=== PATIENT | female | born 1985 | race Caucasian/White ===

== ENCOUNTER 2017-12-18 14:44 | Emergency (ER) | payer OTHER ==
[2017-12-18] MEDS ORDERED: ONDANSETRON 4 MG/2 ML VIAL ONE (15:31)
[2017-12-18] MEDS ORDERED: METHYLPREDNISOLONE 125 MG INJ ONE (15:31)
[2017-12-18] MEDS ORDERED: MORPHINE 10 MG/ML VIAL ONE ×3 (15:31→18:14)
[2017-12-18] MEDS ORDERED: FAMOTIDINE 20 MG/2 ML VIAL IV ONE (15:32)
[2017-12-18] MEDS ORDERED: NA CHLORIDE 0.9% 1,000 ML ONE (15:32)
[2017-12-18 16:19] LABS: Glucose Level 99 mg/dL (65-120); Lipase 19 U/L (22-51)
[2017-12-18 16:20] LABS: Glomerular Filtration Rate > 60 mL/min (>60)
[2017-12-18 16:25] LABS: Albumin 4.5 g/dL (3.2-5.5); Alkaline Phosphatase 53 IU/L (42-121); BUN Blood Urea Nitrogen 7 mg/dL (6-20); Bilirubin Direct 0.3 mg/dL (0-0.2); Glomerular Filtration Rate > 90 mL/min (=/>90); Protein, Total 8.1 g/dL (6.0-8.3)
[2017-12-18 16:30] LABS: ALT/SGPT 24 IU/L (10-60); AST/SGOT 31 IU/L (10-42); Amylase Level 55 U/L (28-100); Bicarbonate 20 mEq/L (21-31); Sodium Level 135 mEq/L (135-145)
[2017-12-18 17:01] LABS: Absolute Lymphocytes (CBC) 2.2 K/uL (0.7-4.9); Absolute Monocytes 0.5 K/uL (0.1-1.3); Absolute Neutrophil 8.3 K/uL (1.8-8.0); Basophils % 0.6 % (0-1.3); Eosinophils % 0.9 % (0-4.4); Hematocrit 36.8 % (36.0-45.0); Lymphocytes % 19.9 % (15.3-44.8); MCH 28.1 pg (27.0-35.0); MCV 83.1 fL (80-100); MPV 7.3 fL (7.6-11.3); Monocytes % 4.7 % (3.3-12.3); RBC Red Blood Cell Count 4.43 M/uL (3.86-4.86)
[2017-12-18] MEDS ORDERED: PROMETHAZINE 25 MG/ML VIAL ONE (17:08)
--- NOTE | 2017-12-18 17:25 | RAD REPORT ---
EXAM DESCRIPTION: CT - Abdomen Pelvis W Contrast - 12/18/2017 4:59 pm CLINICAL HISTORY: Abdominal pain, nausea and vomiting, history of Crohn's disease COMPARISON: None. TECHNIQUE: Biphasic, helical CT imaging of the abdomen and pelvis was performed following 100 ml non -ionic IV contrast. Oral contrast was given. All CT scans are performed using dose optimization technique as appropriate and may include automated exposure control or mA/KV adjustment according to patient size. FINDINGS: No suspicious findings in the lung bases. Liver shows a mild diffuse fatty infiltration pattern. No focal liver lesion. Pancreas and spleen hilario w no suspicious findings. Cholecystectomy clips are present. No biliary tree dilatation. Symmetric renal function is seen with no hydronephrosis or suspicious renal mass. No pyelonephritis o r acute renal parenchymal process. Urinary bladder shows no significant finding. Uterus and ovaries a re also without significant finding. Phleboliths are seen along the pelvic floor. No dilated bowel loops or bowel wall thickening. An acute GI process is not seen. There are hyperdens ities along the terminal ileum that may be clips from prior surgery or calcifications in the divertic ulum. No active process at this site. No free air, free fluid or inflammatory stranding. No hernia, mass or bulky lymphadenopathy. No adrenal abnormality. No suspicious bony findings. IMPRESSION: Contrast enhanced CT abdomen and pelvis showing no significant or suspicious finding. No suspicious change from the 2015 study.
--- NOTE | 2017-12-18 18:16 | EDPHYS ---
Physician Documentation [facility] Name: Sowmya Juarez Age: 32 yrs Sex: Female : 1985 Arrival Date: 12/18/2017 Time: 14:46 Bed 15 Private MD: ED Physician Axel Freeman HPI: 12/18 17:06 This 32 yrs old Female presents to ER via Ambulatory with complaints of kdr Abdominal Pain. 17:06 The patient presents with abdominal pain in the epigastric area, in the upper abdomen. kdr Onset: The symptoms/episode began/occurred gradually, 3 day(s) ago. The symptoms do not radiate. Associated signs and symptoms: Pertinent positives: nausea and vomiting, began today. The symptoms are described as achy, burning, crampy, sharp, waxing/waning. Modifying factors: The symptoms are alleviated by nothing, the symptoms are aggravated by food, movement, pressure, vomiting. Severity of pain: At its worst the pain was mild moderate just prior to arrival, in the emergency department the pain is unchanged is actually worse. The patient has experienced similar episodes in the past, multiple times, has not had any s/s for about a year since starting on new medication. The patient has not recently seen a physician. 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 - Social history:: Smoking status: Patient/guardian denies using tobacco. ROS: 17:06 Constitutional: Negative for fever, chills, and weight loss, Eyes: Negative for injury, kdr pain, redness, and discharge, ENT: Negative for injury, pain, and discharge, Neck: Negative for injury, pain, and swelling, Cardiovascular: Negative for chest pain, palpitations, and edema, Respiratory: Negative for shortness of breath, cough, wheezing, and pleuritic chest pain, Back: Negative for injury and pain, : Negative for injury, bleeding, discharge, and swelling, MS/Extremity: Negative for injury and deformity, Skin: Negative for injury, rash, and discoloration, Neuro: Negative for headache, weakness, numbness, tingling, and seizure activity. Psych: Negative for depression, anxiety, suicide ideation, homicidal ideation, and hallucinations, Allergy/Immunology: Negative for hives, rash, and allergies, Endocrine: Negative for neck swelling, polydipsia, polyuria, polyphagia, and marked weight changes, Hematologic/Lymphatic: Negative for swollen nodes, abnormal bleeding, and unusual bruising. 17:06 Abdomen/GI: Positive for abdominal pain, nausea and vomiting, abdominal cramps, Negative for diarrhea, abdominal distension, black/tarry stool, rectal pain, rectal bleeding, bowel incontinence. Exam: 17:06 Constitutional: This is a well developed, well nourished patient who is awake, alert, kdr and in no acute distress. Head/Face: Normocephalic, atraumatic. Eyes: Pupils equal round and reactive to light, extra-ocular motions intact. Lids and lashes normal. Conjunctiva and sclera are non-icteric and not injected. Cornea within normal limits. Periorbital areas with no swelling, redness, or edema. Neck: Trachea midline, no thyromegaly or masses palpated, and no cervical lymphadenopathy. Supple, full range of motion without nuchal rigidity, or vertebral point tenderness. No Meningismus. Chest/axilla: Normal chest wall appearance and motion. Nontender with no deformity. No lesions are appreciated. Cardiovascular: Regular rate and rhythm with a normal S1 and S2. No gallops, murmurs, or rubs. Normal PMI, no JVD. No pulse deficits. Respiratory: Lungs have equal breath sounds bilaterally, clear to auscultation and percussion. No rales, rhonchi or wheezes noted. No increased work of breathing, no retractions or nasal flaring. Back: No spinal tenderness. No costovertebral tenderness. Full range of motion. Skin: Warm, dry with normal turgor. Normal color with no rashes, no lesions, and no evidence of cellulitis. MS/ Extremity: Pulses equal, no cyanosis. Neurovascular intact. Full, normal range of motion. Neuro: Awake and alert, GCS 15, oriented to person, place, time, and situation. Cranial nerves II-XII grossly intact. Motor strength 5/5 in all extremities. Sensory grossly intact. Cerebellar exam normal. Normal gait. 17:06 Abdomen/GI: Inspection: abdomen appears normal, Bowel sounds: diminished, in all quadrants, Palpation: soft, mild abdominal tenderness, in the epigastric area, right upper quadrant and left upper quadrant. Vital Signs: 14:57 BP 181 / 105; Pulse 130; Resp 19; Temp 98.6; Pulse Ox 100% on R/A; Weight 86.18 kg; la1 Height 5 ft. 2 in. (157.48 cm); 16:26 Pulse 82; Resp 18; Pulse Ox 95% on R/A; sg 16:29 BP 144 / 88; sg 18:20 BP 132 / 80; Pulse 87; Resp 17; Pulse Ox 100% on R/A; Pain 4/10; sg 14:57 Body Mass Index 34.75 (86.18 kg, 157.48 cm) la1 MDM: 17:06 Data reviewed: vital signs, nurses notes, lab test result(s), radiologic studies. kdr Counseling: I had a detailed discussion with the patient and/or guardian regarding: the historical points, exam findings, and any diagnostic results supporting the discharge/admit diagnosis, lab results, radiology results. 18:15 Patient medically screened. kdr 12/18 15:18 Order name: Amylase, Serum; Complete Time: 16:59 kdr 12/18 15:18 Order name: Basic Metabolic Panel; Complete Time: 16:59 kdr 12/18 15:18 Order name: CBC with Diff; Complete Time: 17:16 kdr 12/18 15:18 Order name: Creatinine for Radiology; Complete Time: 16:59 kdr 12/18 15:18 Order name: Hepatic Function; Complete Time: 16:59 kdr 12/18 15:18 Order name: Lipase; Complete Time: 16:59 kdr 12/18 15:18 Order name: CT Abd/Pelvis - W/Contrast; Complete Time: 17:31 kdr 12/18 15:18 Order name: IV Saline Lock; Complete Time: 15:22 kdr 12/18 15:18 Order name: Labs collected and sent; Complete Time: 15:22 kdr Administered Medications: 15:55 Drug: morphine 4 mg Route: IVP; Site: left antecubital; sg 17:00 Follow up: Response: No adverse reaction; Pain is unchanged, physician notified sg 15:55 Drug: Zofran 4 mg Route: IVP; Site: left antecubital; sg 17:00 Follow up: Response: No adverse reaction; Nausea is decreased sg 15:56 Drug: NS 0.9% 1000 ml Route: IV; Rate: 1 bolus; Site: left antecubital; sg 15:56 Drug: SOLU-Medrol 125 mg Route: IVP; Site: left antecubital; sg 17:00 Follow up: Response: No adverse reaction sg 15:56 Drug: Pepcid 20 mg Route: IVP; Site: left antecubital; sg 17:00 Follow up: Response: No adverse reaction sg 17:19 Drug: morphine 4 mg Route: IVP; Site: left antecubital; sg 18:00 Follow up: Response: No adverse reaction; Pain is decreased sg 17:19 Drug: Phenergan 25 mg Route: IVP; Site: left antecubital; sg 18:00 Follow up: Response: No adverse reaction; Nausea is decreased sg 18:15 Drug: morphine 4 mg Route: IVP; Site: left antecubital; sg 18:40 Follow up: Response: No adverse reaction; Pain is decreased sg Disposition: 12/18/17 18:15 Discharged to Home. Impression: Abdominal and pelvic pain, Other ulcerative colitis. - Condition is Stable. - Discharge Instructions: Ulcerative Colitis, Abdominal Pain, Adult, [id number]. - Prescriptions for Tylenol- Codeine #3 300-30 mg Oral Tablet - take 2 tablets by ORAL route every 6 hours As needed; 20 tablet. Prednisone 20 mg Oral Tablet - take 1 tablet by ORAL route every 12 hours for 5 days; 10 tablet. promethazine 25 mg Oral Tablet - take 1 tablet by ORAL route every 4-6 hours As needed; 20 tablet. - Medication Reconciliation Form, Thank You Letter, Antibiotic Education, Prescription Opioid Use form. - Follow up: Private Physician; When: 2 - 3 days; Reason: If symptoms return, Further diagnostic work-up, Recheck today's complaints, Continuance of care, Re-evaluation by your physician. - Problem is an acute exacerbation. - Symptoms have improved. Signatures: Dispatcher [employer] EDMS Ankit Pittman RN RN sg Axel Freeman MD MD [facility] Jeronimo Sarmiento RN RN la1
--- NOTE | 2017-12-18 18:16 | ER ---
Nurse's Notes [facility] Name: Sowmya Juarez Age: 32 yrs Sex: Female : 1985 Arrival Date: 12/18/2017 Time: 14:46 Bed 15 Private MD: Diagnosis: Abdominal and pelvic pain;Other ulcerative colitis Presentation: 12/18 14:56 Presenting complaint: Patient states: I think I am having a crohns exacerbation. la1 Extreme abd pain and N/V for a few days. Transition of care: patient was not received from another setting of care. Onset of symptoms was December 18, 2017. Care prior to arrival: None. 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 - Social history:: Smoking status: Patient/guardian denies using tobacco. Screenin:40 Abuse screen: Denies threats or abuse. Denies injuries from another. Nutritional sg screening: No deficits noted. Tuberculosis screening: No symptoms or risk factors identified. Never had TB. Fall Risk None identified. Assessment: 15:20 General: Appears in no apparent distress. uncomfortable, ill, well groomed, well sg developed, well nourished, Behavior is calm, cooperative, appropriate for age. Pain: Complains of pain in suprapubic area, right lower quadrant and left lower quadrant Quality of pain is described as aching, "raw" feeling. Neuro: Level of Consciousness is awake, alert, obeys commands, Oriented to person, place, time, situation, Coremaker are equal bilaterally Moves all extremities. Gait is steady, Speech is normal. Cardiovascular: Capillary refill is brisk in bilateral fingers Patient's skin is warm and dry. Chest pain is denied. Respiratory: Airway is patent Respiratory effort is even, unlabored, Respiratory pattern is regular, symmetrical. GI: Abdomen is round non-distended, Bowel sounds present X 4 quads. Abd is soft X 4 quads Abdomen is tender to palpation in suprapubic area, right lower quadrant and left lower quadrant. GI: Reports lower abdominal pain, nausea, vomiting. : No signs and/or symptoms were reported regarding the genitourinary system. EENT: No signs and/or symptoms were reported regarding the EENT system. Derm: Skin is pink, warm \\T\\ dry. Musculoskeletal: No signs and/or symptoms reported regarding the musculoskeletal system. 18:00 Reassessment: Patient appears in no apparent distress at this time. Patient and/or sg family updated on plan of care and expected duration. Pain level reassessed. Patient is alert, oriented x 3, equal unlabored respirations, skin warm/dry/pink. at bedside evaluating pt at this time, updating on POC and plan for discharge to home. Vital Signs: 14:57 BP 181 / 105; Pulse 130; Resp 19; Temp 98.6; Pulse Ox 100% on R/A; Weight 86.18 kg; la1 Height 5 ft. 2 in. (157.48 cm); 16:26 Pulse 82; Resp 18; Pulse Ox 95% on R/A; sg 16:29 BP 144 / 88; sg 18:20 BP 132 / 80; Pulse 87; Resp 17; Pulse Ox 100% on R/A; Pain 4/10; sg 14:57 Body Mass Index 34.75 (86.18 kg, 157.48 cm) la1 ED Course: 14:46 Patient arrived in ED. tw3 14:48 Axel Freeman MD is Attending Physician. kdr 14:56 Triage completed. la1 14:57 Arm band placed on left wrist. la1 15:15 Patient has correct armband on for positive identification. Bed in low position. Call sg light in reach. Side rails up X2. Pulse ox on. NIBP on. Head of bed elevated. 15:20 No provider procedures requiring assistance completed. sg 15:21 Ankit Pittman, BHAVIK is Primary Nurse. sg 15:40 Initial lab(s) drawn, by me, sent to lab. Missed attempt(s): 20 gauge in right sg antecubital area. Bleeding controlled, band aid applied, catheter tip intact. 15:47 Radiology exam delayed due to test not completed at this time. IV insertion jg1 attempt and/or patient not having appropriate IV at this time. 16:05 Inserted saline lock: 22 gauge in left antecubital area, using aseptic technique. em 16:59 CT Abd/Pelvis - W/Contrast In Process Unspecified. EDMS 18:40 IV discontinued, intact, bleeding controlled, No redness/swelling at site. Pressure sg dressing applied. Administered Medications: 15:55 Drug: morphine 4 mg Route: IVP; Site: left antecubital; sg 17:00 Follow up: Response: No adverse reaction; Pain is unchanged, physician notified sg 15:55 Drug: Zofran 4 mg Route: IVP; Site: left antecubital; sg 17:00 Follow up: Response: No adverse reaction; Nausea is decreased sg 15:56 Drug: NS 0.9% 1000 ml Route: IV; Rate: 1 bolus; Site: left antecubital; sg 15:56 Drug: SOLU-Medrol 125 mg Route: IVP; Site: left antecubital; sg 17:00 Follow up: Response: No adverse reaction sg 15:56 Drug: Pepcid 20 mg Route: IVP; Site: left antecubital; sg 17:00 Follow up: Response: No adverse reaction sg 17:19 Drug: morphine 4 mg Route: IVP; Site: left antecubital; sg 18:00 Follow up: Response: No adverse reaction; Pain is decreased sg 17:19 Drug: Phenergan 25 mg Route: IVP; Site: left antecubital; sg 18:00 Follow up: Response: No adverse reaction; Nausea is decreased sg 18:15 Drug: morphine 4 mg Route: IVP; Site: left antecubital; sg 18:40 Follow up: Response: No adverse reaction; Pain is decreased sg Outcome: 18:15 Discharge ordered by . kdr 18:38 Discharged to home ambulatory, with family. sg 18:38 Condition: good 18:38 Discharge instructions given to patient, Instructed on discharge instructions, follow up and referral plans. medication usage, safety practices, Demonstrated understanding of instructions, follow-up care, medications, Prescriptions given X 3. 18:40 Patient left the ED. sg Signatures: Dispatcher [employer] EDMS Ankit Pittman RN RN sg Axel Freeman MD MD kdr Garcia, Jessica jg1 Munoz, Edgar, FISHER SCALLOP FISHER SCALLOP em Jeronimo Sarmiento, RN RN la1 Carlos, Daya tw3
[2017-12-18 18:45] VITALS: TEMP 98.6
[2017-12-18 18:46] VITALS: O2SAT 95
[2017-12-18 18:47] VITALS: BP 144/88
== END 2017-12-18 18:40 | disposition home or self-care (01) ==
LOC: ER 14:44
DX: K51.80 Other ulcerative colitis without complications (principal); I10 Essential (primary) hypertension; Z88.8 Allergy status to other drugs, medicaments and biological substances
CPT/HCPCS: 36415; 74177; 80048; 80076; 82150; 83690; 85025; 96374; 96375; 99284; J2405; J2550; J2930; J7030; Q9967

== ENCOUNTER 2018-03-25 11:07 | Emergency (ER) | payer OTHER ==
[2018-03-25] MEDS ORDERED: NA CHLORIDE 0.9% 1,000 ML ONE (11:53)
[2018-03-25] MEDS ORDERED: MEPERIDINE HCL 25 MG/0.5 ML ONE ×2 (11:53→12:53)
[2018-03-25] MEDS ORDERED: PROMETHAZINE 25 MG/ML VIAL ONE (11:53)
[2018-03-25 12:29] LABS: Absolute Lymphocytes (CBC) 1.9 K/uL (0.7-4.9); Absolute Monocytes 0.4 K/uL (0.1-1.3); Absolute Neutrophil 7.3 K/uL (1.8-8.0); Basophils % 0.9 % (0-1.3); Eosinophils % 1.8 % (0-4.4); Hematocrit 37.9 % (36.0-45.0); MCH 28.2 pg (27.0-35.0); MCV 81.3 fL (80-100); MPV 7.4 fL (7.6-11.3); Monocytes % 3.8 % (3.3-12.3); RBC Red Blood Cell Count 4.66 M/uL (3.86-4.86)
[2018-03-25 12:34] LABS: Urine Blood NEGATIVE (NEG); Urine Glucose NEGATIVE (NEG); Urine Protein NEGATIVE (NEG); Urine Specific Gravity 1.015 (1.005-1.030)
[2018-03-25 12:41] LABS: ALT/SGPT 26 U/L (12-78); AST/SGOT 18 U/L (15-37); Albumin 4.1 g/dL (3.4-5.0); Alkaline Phosphatase 63 U/L (45-117); BUN Blood Urea Nitrogen 5 mg/dL (7-18); Bicarbonate 28 mmol/L (21-32); Bilirubin Direct < 0.1 mg/dL (0-0.2); Bilirubin Total 0.3 mg/dL (0.2-1.0); Glucose Level 95 mg/dL (74-106); Lipase 124 U/L (73-393); Potassium 3.3 mmol/L (3.5-5.1); Sodium Level 140 mmol/L (136-145)
[2018-03-25] MEDS ORDERED: ONDANSETRON 4 MG/2 ML VIAL ONE (12:53)
--- NOTE | 2018-03-25 14:22 | EDPHYS ---
Physician Documentation [facility] Name: Sowmya Juarez Age: 32 yrs Sex: Female : 1985 Arrival Date: 03/25/2018 Time: 11:10 Bed 19 Private MD: ED Physician Antwan Mejia HPI: 03/25 14:36 This 32 yrs old Female presents to ER via Ambulatory with complaints of jr8 Abdominal Pain, Nausea/Vomiting. 14:36 The patient presents with abdominal pain that is diffuse. Onset: The symptoms/episode jr8 began/occurred acutely, today. The symptoms do not radiate. Associated signs and symptoms: Pertinent positives: nausea, vomiting, and diarrhea. The symptoms are described as crampy. Modifying factors: The symptoms are alleviated by nothing, the symptoms are aggravated by nothing. Severity of pain: At its worst the pain was moderate in the emergency department the pain is unchanged. The patient has experienced similar episodes in the past, several times. The patient has not recently seen a physician. Patient with history of Crohns' disease. Thinks she is having a flare up . 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 jl7 Historical: - Allergies: 11:27 Compazine; jl7 - Home Meds: 11:27 Pentasa 500 mg Oral cpER 2 caps 4 times per day [Active]; Prilosec 40 mg Oral cpDR 1 jl7 cap once daily [Active]; Zofran Oral [Active]; Phenergan Oral as needed [Active]; Stelara subcutaneous subcutaneous [Active]; Prozac 20 mg Oral cap 1 cap once daily [Active]; Bentyl Oral as needed [Active]; Risperdal Oral [Active]; trazodone Oral [Active]; - PMHx: 11:27 Bipolar disorder; Crohn's; Hypertension; Migraines; jl7 - PSHx: 11: Cholecystectomy; Appendectomy; ; Tubal ligation; jl7 - Immunization history:: Adult Immunizations up to date. - Social history:: Smoking status: Patient/guardian denies using tobacco. - Ebola Screening: : No symptoms or risks identified at this time. ROS: 15:02 Eyes: Negative for injury, pain, redness, and discharge, ENT: Negative for injury, jr8 pain, and discharge, Neck: Negative for injury, pain, and swelling, Cardiovascular: Negative for chest pain, palpitations, and edema, Respiratory: Negative for shortness of breath, cough, wheezing, and pleuritic chest pain, Back: Negative for injury and pain, MS/Extremity: Negative for injury and deformity, Skin: Negative for injury, rash, and discoloration, Neuro: Negative for headache, weakness, numbness, tingling, and seizure. 15:02 Abdomen/GI: Positive for abdominal pain, nausea, vomiting, and diarrhea, Negative for abdominal distension, anorexia, dysphagia, hematemesis, black/tarry stool, rectal pain, rectal bleeding, bowel incontinence, flatulence. Exam: 15:15 Eyes: Pupils equal round and reactive to light, extra-ocular motions intact. Lids and jr8 lashes normal. Conjunctiva and sclera are non-icteric and not injected. Cornea within normal limits. Periorbital areas with no swelling, redness, or edema. ENT: Nares patent. No nasal discharge, no septal abnormalities noted. Tympanic membranes are normal and external auditory canals are clear. Oropharynx with no redness, swelling, or masses, exudates, or evidence of obstruction, uvula midline. Mucous membranes moist. Neck: Trachea midline, no thyromegaly or masses palpated, and no cervical lymphadenopathy. Supple, full range of motion without nuchal rigidity, or vertebral point tenderness. No Meningismus. Cardiovascular: Regular rate and rhythm with a normal S1 and S2. No gallops, murmurs, or rubs. Normal PMI, no JVD. No pulse deficits. Respiratory: Lungs have equal breath sounds bilaterally, clear to auscultation and percussion. No rales, rhonchi or wheezes noted. No increased work of breathing, no retractions or nasal flaring. Abdomen/GI: Soft, mild tenderness throughout abdomen with normal bowel sounds. No distension or tympany. No guarding or rebound. No evidence of tenderness throughout. Back: No spinal tenderness. No costovertebral tenderness. Full range of motion. Skin: Warm, dry with normal turgor. Normal color with no rashes, no lesions, and no evidence of cellulitis. MS/ Extremity: Pulses equal, no cyanosis. Neurovascular intact. Full, normal range of motion. Neuro: Awake and alert, GCS 15, oriented to person, place, time, and situation. Cranial nerves II-XII grossly intact. Motor strength 5/5 in all extremities. Sensory grossly intact. Cerebellar exam normal. Normal gait. Vital Signs: 11:27 BP 192 / 109; Pulse 103; Resp 16 S; Temp 99.1(O); Pulse Ox 99% on R/A; Weight 89.81 kg jl7 (R); Height 5 ft. 3 in. (160.02 cm) (R); Pain 8/10; 12:30 BP 189 / 95; Pulse 95; Resp 18; Pulse Ox 100% on R/A; hj 13:50 BP 126 / 71; Pulse 69; Resp 18; Pulse Ox 100% on R/A; hj 11:27 Body Mass Index 35.07 (89.81 kg, 160.02 cm) 7 MDM: 11:32 Patient medically screened. 8 14:19 Data reviewed: vital signs, nurses notes, lab test result(s), and as a result, I will jr8 discharge patient. Data interpreted: Pulse oximetry: on room air is 100 %. Interpretation: normal. 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 Response to treatment: the patient's symptoms have resolved after treatment, patient is well hydrated. ED course: Patient feeling much better. Belly soft and benign. Labs without acute finding. Will put on steroids for crohn's flare. Will see GI in one week. If worse to come back . 03/25 11:33 Order name: Basic Metabolic Panel; Complete Time: 12:42 [facility] 03/25 11:33 Order name: CBC with Diff; Complete Time: 12:42 [facility] 03/25 11:33 Order name: Creatinine for Radiology; Complete Time: 12:42 [facility] 03/25 11:33 Order name: Hepatic Function; Complete Time: 12:42 [facility] 03/25 11:33 Order name: Lipase; Complete Time: 12:42 [facility] 03/25 12:23 Order name: Urine Dipstick--Ancillary (enter results); Complete Time: 12:42 03/25 11:33 Order name: Urine Test (obtain specimen); Complete Time: 12:20 03/25 11:33 Order name: IV Saline Lock; Complete Time: 12:06 03/25 12:23 Order name: Urine --Ancillary (enter results); Complete Time: 12:42 bd 03/25 11:33 Order name: Labs collected and sent; Complete Time: 12:06 03/25 11:33 Order name: Urine Dipstick-Ancillary (obtain specimen); Complete Time: 12:20 Administered Medications: 12:20 Drug: Demerol 25 mg Route: IVP; Site: right jugular; hj 13:49 Follow up: Response: No adverse reaction hj 12:20 Drug: Phenergan 12.5 mg Route: IVP; Site: right jugular; hj 13:49 Follow up: Response: No adverse reaction hj 12:20 Drug: NS 0.9% 1000 ml Route: IV; Rate: 1 bolus; Site: right jugular; hj 13:49 Follow up: IV Status: Completed infusion hj 12:53 Drug: Demerol 25 mg Route: IVP; Site: right jugular; hj 13:49 Follow up: Response: No adverse reaction hj 12:53 Drug: Zofran 4 mg Route: IVP; Site: right jugular; hj 13:49 Follow up: Response: No adverse reaction hj Disposition: 19:08 Co-signature as Attending Physician, Antwan Mejia MD. rn Disposition: 03/25/18 14:22 Discharged to Home. Impression: Crohn's disease [regional enteritis]. - Condition is Stable. - Prescriptions for Prednisone 20 mg Oral Tablet - take 2 tablets by ORAL route once daily for 7 days then 1 tablet a day for 4 days. Then half a tab a day for 4 days; 20 tablet. promethazine 25 mg Oral Tablet - take 1 tablet by ORAL route every 6 hours As needed; 20 tablet. - Medication Reconciliation Form, Thank You Letter, Antibiotic Education, Prescription Opioid Use form. - Follow up: Private Physician; When: 2 - 3 days; Reason: Recheck today's complaints, Continuance of care, Re-evaluation by your physician. - Problem is new. - Symptoms have improved. Signatures: Dispatcher [employer] EDMS Antwan Mejia MD MD rn Roszak, Josh, PA PA jr8 Neno Mercedes RN RN Kalpesh Fox RN RN jl7 Corrections: (The following items were deleted from the chart) 14:35 14:22 03/25/2018 14:22 Discharged to Home. Impression: Crohn's disease [regional hj enteritis]. Condition is Stable. Forms are Medication Reconciliation Form, Thank You Letter, Antibiotic Education, Prescription Opioid Use. Follow up: Private Physician; When: 2 - 3 days; Reason: Recheck today's complaints, Continuance of care, Re-evaluation by your physician. Problem is new. Symptoms have improved. jr8 15:02 14:36 Patient with history of Crohns' disease. . jr8 jr8
--- NOTE | 2018-03-25 14:22 | ER ---
Nurse's Notes [facility] Name: Sowmya Juarez Age: 32 yrs Sex: Female : 1985 Arrival Date: 03/25/2018 Time: 11:10 Bed 19 Private MD: Diagnosis: Crohn's disease [regional enteritis] Presentation: 03/25 11:23 Presenting complaint: Patient states: "I have Chron's and I'm pretty sure I'm having a jl7 flare up." N/V/D x [address] Wolff can't see me for another week so they told me to come here. Transition of care: patient was not received from another setting of care. Onset of symptoms was March 22, 2018. Risk Assessment: Do you want to hurt yourself or someone else? Patient reports no desire to harm self or others. Initial Sepsis Screen: Does the patient meet any 2 criteria? No. Patient's initial sepsis screen is negative. Does the patient have a suspected source of infection? No. Patient's initial sepsis screen is negative. Care prior to arrival: None. 11:23 Method Of Arrival: Ambulatory [facility] 11:23 Acuity: KALYN 3 jl7 Triage Assessment: 11:27 General: Appears uncomfortable, Behavior is calm, cooperative, appropriate for age. jl7 Pain: Complains of pain in epigastric area Pain does not radiate. Pain currently is 8 out of 10 on a pain scale. Quality of pain is described as squeezing, Pain began 2-3 days ago. Is continuous. GI: Abdomen is round non-distended, Reports diarrhea, nausea, vomiting. 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 jl7 Historical: - Allergies: 11:27 Compazine; jl7 - Home Meds: 11:27 Pentasa 500 mg Oral cpER 2 caps 4 times per day [Active]; Prilosec 40 mg Oral cpDR 1 jl7 cap once daily [Active]; Zofran Oral [Active]; Phenergan Oral as needed [Active]; Stelara subcutaneous subcutaneous [Active]; Prozac 20 mg Oral cap 1 cap once daily [Active]; Bentyl Oral as needed [Active]; Risperdal Oral [Active]; trazodone Oral [Active]; - PMHx: 11:27 Bipolar disorder; Crohn's; Hypertension; Migraines; jl7 - PSHx: 11:27 Cholecystectomy; Appendectomy; ; Tubal ligation; jl7 - Immunization history:: Adult Immunizations up to date. - Social history:: Smoking status: Patient/guardian denies using tobacco. - Ebola Screening: : No symptoms or risks identified at this time. Screenin:33 Abuse screen: Denies threats or abuse. Denies injuries from another. Nutritional hj screening: No deficits noted. Tuberculosis screening: No symptoms or risk factors identified. Fall Risk None identified. Assessment: 11:34 GI: Bowel sounds present X 4 quads. Abd is soft Abdomen is tender to palpation. hj 11:34 General: Appears in no apparent distress. uncomfortable, Behavior is calm, cooperative, hj appropriate for age. Pain: Complains of pain in abdomen and epigastric area. Neuro: Level of Consciousness is awake, alert, obeys commands, Oriented to person, place, time, situation, Appropriate for age. Cardiovascular: Capillary refill < 3 seconds Patient's skin is warm and dry. Respiratory: Airway is patent Respiratory effort is even, unlabored, Respiratory pattern is regular, symmetrical. : No signs and/or symptoms were reported regarding the genitourinary system. EENT: No signs and/or symptoms were reported regarding the EENT system. Derm: Musculoskeletal: No signs and/or symptoms reported regarding the musculoskeletal system. 12:45 Reassessment: Patient and/or family updated on plan of care and expected duration. Pain hj level reassessed. Patient is alert, oriented x 3, equal unlabored respirations, skin warm/dry/pink. still hurting, provider informed;. 13:51 Reassessment: Patient and/or family updated on plan of care and expected duration. Pain hj level reassessed. Patient is alert, oriented x 3, equal unlabored respirations, skin warm/dry/pink. Patient states feeling better. Patient states symptoms have improved. Vital Signs: 11:27 BP 192 / 109; Pulse 103; Resp 16 S; Temp 99.1(O); Pulse Ox 99% on R/A; Weight 89.81 kg jl7 (R); Height 5 ft. 3 in. (160.02 cm) (R); Pain 8/10; 12:30 BP 189 / 95; Pulse 95; Resp 18; Pulse Ox 100% on R/A; hj 13:50 BP 126 / 71; Pulse 69; Resp 18; Pulse Ox 100% on R/A; hj 11:27 Body Mass Index 35.07 (89.81 kg, 160.02 cm) jl7 ED Course: 11:10 Patient arrived in ED. mr 11:25 Triage completed. jl7 11:27 Arm band placed on right wrist. jl7 11:31 Neno Mercedes, BHAVIK is Primary Nurse. hj 11:32 Zac Rubio PA is PHCP. jr8 11:32 Antwan Mejia MD is Attending Physician. jr8 11:34 Patient has correct armband on for positive identification. Placed in gown. Bed in low hj position. Call light in reach. Side rails up X 1. Adult w/ patient. 11:45 Initial lab(s) drawn, by ED staff, sent to lab. Inserted saline lock: 20 gauge in right hj EJ, using aseptic technique. ,using aseptic technique. MARCELO Rubio Blood collected. 14:35 No provider procedures requiring assistance completed. IV discontinued, intact, hj bleeding controlled, No redness/swelling at site. Pressure dressing applied. Administered Medications: 12:20 Drug: Demerol 25 mg Route: IVP; Site: right jugular; hj 13:49 Follow up: Response: No adverse reaction hj 12:20 Drug: Phenergan 12.5 mg Route: IVP; Site: right jugular; hj 13:49 Follow up: Response: No adverse reaction hj 12:20 Drug: NS 0.9% 1000 ml Route: IV; Rate: 1 bolus; Site: right jugular; hj 13:49 Follow up: IV Status: Completed infusion hj 12:53 Drug: Demerol 25 mg Route: IVP; Site: right jugular; hj 13:49 Follow up: Response: No adverse reaction hj 12:53 Drug: Zofran 4 mg Route: IVP; Site: right jugular; hj 13:49 Follow up: Response: No adverse reaction hj Outcome: 14:22 Discharge ordered by . jr8 14:35 Discharged to home ambulatory, with family. hj 14:35 Condition: stable 14:35 Discharge instructions given to patient, family, Instructed on discharge instructions, follow up and referral plans. medication usage, Demonstrated understanding of instructions, follow-up care, medications, Prescriptions given X 2. 14:35 Patient left the ED. hj Signatures: [place] Gomez Josh, PA PA jr8 Neno Mercedes RN RN Kalpesh Fox RN RN jl7
[2018-03-25 14:39] VITALS: TEMP 99.1
[2018-03-25 14:40] VITALS: O2SAT 100
[2018-03-25 14:41] VITALS: BP 126/71
== END 2018-03-25 14:35 | disposition home or self-care (01) ==
LOC: ER 11:07
DX: K50.90 Crohn's disease, unspecified, without complications (principal); I10 Essential (primary) hypertension; F31.9 Bipolar disorder, unspecified; Z88.8 Allergy status to other drugs, medicaments and biological substances
CPT/HCPCS: 36415; 80048; 80076; 81003; 81025; 83690; 85025; 96361; 96374; 96375; 99284; J2175 ×2; J2405; J2550; J7030

== ENCOUNTER 2018-05-05 21:52 | Emergency (ER) | payer OTHER ==
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
[2018-05-05] MEDS ORDERED: AMOX TR/K CLAV 400MG CHEW TAB PO ONE (23:19)
[2018-05-05] MEDS ORDERED: TETANUS & DIPHTHERIA TOX,ADULT 0.5 ML VIAL ONE (23:19)
[2018-05-05 23:30] VITALS: BP 159/107; TEMP 98.2; O2SAT 98
== END 2018-05-05 23:26 | disposition home or self-care (01) ==
LOC: ER 21:52
DX: S41.151A Open bite of right upper arm, initial encounter (principal); Y04.1XXA Assault by human bite, initial encounter; Y93.89 Activity, other specified; Y92.009 Unspecified place in unspecified non-institutional (private) residence as the place of occurrence of the external cause; Z23 Encounter for immunization; I10 Essential (primary) hypertension; F31.9 Bipolar disorder, unspecified; Z88.8 Allergy status to other drugs, medicaments and biological substances
CPT/HCPCS: 90714; 99283

== ENCOUNTER 2019-04-10 14:50 | Emergency (ER) | payer OTHER ==
[2019-04-10] MEDS ORDERED: HYDROCODONE/APAP 10/325 TAB ONE (15:18)
[2019-04-10] MEDS ORDERED: NA CHLORIDE 0.9% 1,000 ML ONE (15:20)
[2019-04-10] MEDS ORDERED: ONDANSETRON 4 MG/2 ML VIAL ONE (15:20)
[2019-04-10] MEDS ORDERED: MORPHINE 4 MG/ML SYR ONE (15:20)
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
[2019-04-10 17:49] LABS: Urine Blood TRACE (NEG); Urine Glucose NEGATIVE (NEG); Urine Protein 1+ (NEG)
[2019-04-10] MEDS ORDERED: AMOX/K CLAV 875 MG TAB ONE (17:59)
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
[2019-04-10 19:14] VITALS: BP 117/62; O2SAT 95
[2019-04-10 19:18] VITALS: TEMP 98
== END 2019-04-10 18:15 | disposition home or self-care (01) ==
LOC: ER 14:50
DX: S00.90XA Unspecified superficial injury of unspecified part of head, initial encounter (principal); S30.0XXA Contusion of lower back and pelvis, initial encounter; Y04.1XXA Assault by human bite, initial encounter; Y93.89 Activity, other specified; Y92.009 Unspecified place in unspecified non-institutional (private) residence as the place of occurrence of the external cause; Z88.8 Allergy status to other drugs, medicaments and biological substances; I10 Essential (primary) hypertension; F31.9 Bipolar disorder, unspecified
CPT/HCPCS: 96361; 36415; 81025; 81003; 70450; 74177; 96375; 96374; 99285; Q9967; J7030; J2405

== ENCOUNTER 2019-05-20 11:04 | Emergency (ER) | payer OTHER ==
[2019-05-20] MEDS ORDERED: ONDANSETRON 4 MG/2 ML VIAL ONE (11:21)
[2019-05-20] MEDS ORDERED: NA CHLORIDE 0.9% 1,000 ML ONE (11:21)
[2019-05-20] MEDS ORDERED: MORPHINE 4 MG/ML SYR ONE ×2 (11:50→13:52)
[2019-05-20 11:54] LABS: Absolute Lymphocytes (CBC) 2.4 K/uL (0.7-4.9); Basophils % 0.4 % (0-1.3); Hematocrit 40.7 % (36.0-45.0); Lymphocytes % 20.4 % (15.3-44.8); MPV 7.5 fL (7.6-11.3)
[2019-05-20 12:22] LABS: ALT/SGPT 30 U/L (12-78); AST/SGOT 21 U/L (15-37); Albumin 4.5 g/dL (3.4-5.0); Alkaline Phosphatase 61 U/L (45-117); BUN Blood Urea Nitrogen 8 mg/dL (7-18); Bicarbonate 24 mmol/L (21-32); Bilirubin Direct < 0.1 mg/dL (0-0.2); Bilirubin Total 0.5 mg/dL (0.2-1.0); Glucose Level 101 mg/dL (74-106); Lipase 91 U/L (73-393); Potassium 3.7 mmol/L (3.5-5.1); Protein, Total 8.4 g/dL (6.4-8.2); Sodium Level 138 mmol/L (136-145)
--- NOTE | 2019-05-20 13:38 | ER ---
Nurse's Notes [facility] Name: Sowmya Juarez Age: 34 yrs Sex: Female : 1985 Arrival Date: 05/20/2019 Time: 11:06 Bed 7 Private MD: Diagnosis: Crohn's disease [regional enteritis] Presentation: 05/20 11:12 Presenting complaint: Patient states: Fever/Chills, Nausea/vomiting/Diarrhea, Im pretty sg sure its a crohns flare up but my home medications and remidies are not helping, it may be time for steroids. Transition of care: patient was not received from another setting of care. Onset of symptoms was May 20, 2019. Risk Assessment: Do you want to hurt yourself or someone else? Patient reports no desire to harm self or others. Initial Sepsis Screen: Does the patient meet any 2 criteria? HR > 90 bpm. Does the patient have a suspected source of infection? Yes: Acute abdominal pain. Care prior to arrival: None. 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/2019 sg Historical: - Allergies: 11:07 Compazine; sg 11:15 prochlorperazine Edisylate; tw2 11:15 Prochlorperazine Maleate; tw2 11:15 prochlorperazine; tw2 - Home Meds: 11:15 Bentyl Oral as needed [Active]; Pentasa 500 mg Oral cpER 2 caps 4 times per day tw2 [Active]; Phenergan Oral as needed [Active]; Prilosec 40 mg Oral cpDR 1 cap once daily [Active]; Prozac 20 mg Oral cap 1 cap once daily [Active]; Risperdal Oral [Active]; Stelara subcutaneous [Active]; tramadol 50 mg Oral tab 1 tab every 4 hours [Active]; Trazodone Oral [Active]; Zofran Oral [Active]; - PMHx: 11:07 Bipolar disorder; Crohn's; Hypertension; Migraines; sg - Immunization history:: Adult Immunizations up to date. - Social history:: Smoking status: Patient/guardian denies using tobacco. - Ebola Screening: : Patient negative for fever greater than or equal to 101.5 degrees Fahrenheit, and additional compatible Ebola Virus Disease symptoms Patient denies exposure to infectious person Patient denies travel to an Ebola-affected area in the 21 days before illness onset No symptoms or risks identified at this time. Screenin:41 Abuse screen: Denies threats or abuse. Nutritional screening: No deficits noted. tw2 Tuberculosis screening: No symptoms or risk factors identified. Fall Risk None identified. Assessment: 11:42 General: Appears uncomfortable, Behavior is calm, cooperative, appropriate for age. tw2 Pain: Complains of pain in abdomen. Neuro: Level of Consciousness is awake, alert, obeys commands, Oriented to person, place, time, situation. Cardiovascular: Heart tones S1 S2 Patient's skin is warm and dry. Respiratory: Airway is patent Respiratory effort is even, unlabored, Respiratory pattern is regular, symmetrical, Breath sounds are clear bilaterally. GI: Abdomen is flat, non-distended, Bowel sounds present X 4 quads. Reports lower abdominal pain, upper abdominal pain, diarrhea, nausea, vomiting. : No signs and/or symptoms were reported regarding the genitourinary system. EENT: No signs and/or symptoms were reported regarding the EENT system. Derm: Skin temperature is hot. Musculoskeletal: Range of motion: intact in all extremities. 12:24 Reassessment: Patient appears in no apparent distress at this time. Patient and/or tw2 family updated on plan of care and expected duration. Pain level reassessed. Patient is alert, oriented x 3, equal unlabored respirations, skin warm/dry/pink. 14:08 Reassessment: Patient appears in no apparent distress at this time. Patient and/or tw2 family updated on plan of care and expected duration. Pain level reassessed. Patient is alert, oriented x 3, equal unlabored respirations, skin warm/dry/pink. Patient states feeling better. Vital Signs: 11:11 BP 159 / 83; Pulse 118; Resp 17; Temp 99.9; Pulse Ox 100% on R/A; Pain 10/10; sg 12:24 BP 108 / 93; Pulse 75; Resp 17; Pulse Ox 99% on R/A; tw2 13:00 BP 123 / 77; Pulse 72; Resp 16; Pulse Ox 100% ; sv 14:09 BP 129 / 85; Pulse 74; Resp 17; Pulse Ox 100% on R/A; Pain 6/10; tw2 ED Course: 11:06 Patient arrived in ED. rg4 11:07 Arm band placed on. sg 11:13 Triage completed. sg 11:13 Fatoumata Sherwood, RN is Primary Nurse. tw2 11:13 Bed in low position. Call light in reach. Pulse ox on. NIBP on. tw2 11:16 Ki Arredondo PA is PHCP. [facility] 11:16 Axel Freeman MD is Attending Physician. jmm 11:36 Missed attempt(s): 22 gauge in right antecubital area. blood collected and sent, tw2 BHAVIK Roach at bedside for line at this time.. Bleeding controlled, band aid applied, catheter tip intact. 11:38 Missed attempt(s): 22 gauge in left forearm. Bleeding controlled, band aid applied, ms catheter tip intact. 11:55 Missed attempt(s): 24 gauge in right wrist. Bleeding controlled, band aid applied, hb catheter tip intact. 11:58 Missed attempt(s): 22 gauge in left antecubital area. Bleeding controlled, band aid hb applied, catheter tip intact. 12:01 Inserted saline lock: 24 gauge in left forearm, using aseptic technique. hb 13:15 Pulse ox on. NIBP on. Assisted to bathroom. mb4 13:37 Johana Wolff MD is Referral Physician. [facility] 14:09 No provider procedures requiring assistance completed. IV discontinued, intact, tw2 bleeding controlled, No redness/swelling at site. Pressure dressing applied. Administered Medications: 11:56 Drug: Zofran 4 mg Route: IVP; Site: left forearm; tw2 13:48 Follow up: Response: No adverse reaction; Nausea is decreased tw2 11:58 Drug: morphine 4 mg Route: IVP; Site: left forearm; tw2 13:48 Follow up: Response: No adverse reaction; Pain is unchanged, physician notified; RASS: tw2 Alert and Calm (0) 12:00 Drug: NS 0.9% 1000 ml Route: IV; Rate: 1 bolus; Site: left forearm; tw2 13:09 Follow up: Response: No adverse reaction; IV Status: Completed infusion; IV Intake: tw2 1000ml 13:54 Not Given (Duplicate Order): morphine 4 mg IM once; RASS on ADMIN: Combtv4, Very tw2 Agttd3, Agttd2, Rstlss1, AlertClm0, Drwsy-1, Lt Sdtn-2, Mod Sdtn-3, Dp Sdtn-4, UnArsble-5 13:54 Drug: morphine 4 mg Route: IVP; Site: left forearm; tw2 14:08 Follow up: Response: No adverse reaction; Pain is decreased; RASS: Alert and Calm (0) tw2 Intake: 13:09 IV: 1000ml; Total: 1000ml. tw2 Outcome: 13:37 Discharge ordered by . otto 14:09 Discharged to home ambulatory, with family. tw2 14:09 Condition: stable 14:09 Discharge instructions given to patient, family, Instructed on discharge instructions, follow up and referral plans. medication usage, Demonstrated understanding of instructions, follow-up care, medications, Prescriptions given X 1. 14:10 Patient left the ED. tw2 Signatures: Karma Maynard RN Ankit Mckeon RN RN sg Mickail, Joel, PA PA jmm Solis, Maria ms Baxter, Heather, RN RN Fatoumata Sherwood RN RN 2 Monika Chacon4 Julisa Abreu 4
--- NOTE | 2019-05-20 13:38 | EDPHYS ---
Physician Documentation [facility] Name: Sowmya Juarez Age: 34 yrs Sex: Female : 1985 Arrival Date: 05/20/2019 Time: 11:06 Bed 7 Private MD: ED Physician Axel Freeman HPI: 05/20 11:16 This 34 yrs old Female presents to ER via Ambulatory with complaints of jmm Crohns Flare Up. 11:16 The patient presents with abdominal pain in the epigastric area. Onset: The jmm symptoms/episode began/occurred gradually, 5 day(s) ago. The symptoms do not radiate. Associated signs and symptoms: Pertinent positives: nausea and vomiting, diarrhea, fever. The symptoms are described as achy, sharp. Modifying factors: The symptoms are alleviated by nothing. This is a 34 year old female with a history of bipolar, Crohns, HTN that presents to the ED with complaints of epigastric abdominal pain beginning this past Wednesday. Patient states she has been attempting to self medicate with Bentyl and tramadol. Patient had injection of her biologic this past Wednesday with no relief. Patient states she took Tylenol at approx 1000. . 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 05/11/2019 sg Historical: - Allergies: 11:07 Compazine; sg 11:15 prochlorperazine Edisylate; tw2 11:15 Prochlorperazine Maleate; tw2 11:15 prochlorperazine; tw2 - Home Meds: 11:15 Bentyl Oral as needed [Active]; Pentasa 500 mg Oral cpER 2 caps 4 times per day tw2 [Active]; Phenergan Oral as needed [Active]; Prilosec 40 mg Oral cpDR 1 cap once daily [Active]; Prozac 20 mg Oral cap 1 cap once daily [Active]; Risperdal Oral [Active]; Stelara subcutaneous [Active]; tramadol 50 mg Oral tab 1 tab every 4 hours [Active]; Trazodone Oral [Active]; Zofran Oral [Active]; - PMHx: 11:07 Bipolar disorder; Crohn's; Hypertension; Migraines; sg - Immunization history:: Adult Immunizations up to date. - Social history:: Smoking status: Patient/guardian denies using tobacco. - Ebola Screening: : Patient negative for fever greater than or equal to 101.5 degrees Fahrenheit, and additional compatible Ebola Virus Disease symptoms Patient denies exposure to infectious person Patient denies travel to an Ebola-affected area in the 21 days before illness onset No symptoms or risks identified at this time. ROS: 11:16 Cardiovascular: Negative for chest pain, palpitations, and edema, Respiratory: Negative jmm for shortness of breath, cough, wheezing, and pleuritic chest pain. 11:16 Back: Negative for injury and pain, MS/Extremity: Negative for injury and deformity, Skin: Negative for injury, rash, and discoloration, Neuro: Negative for headache, weakness, numbness, tingling, and seizure. 11:16 Constitutional: Positive for body aches, chills, fever. 11:16 Abdomen/GI: Positive for abdominal pain, nausea and vomiting, diarrhea. 11:16 All other systems are negative. Exam: 11:16 Head/Face: atraumatic. Eyes: EOMI, no conjunctival erythema appreciated ENT: Moist jmm Mucus Membranes Neck: Trachea midline, Supple Chest/axilla: Normal chest wall appearance and motion. Cardiovascular: Regular rate and rhythm. No edema appreciated Respiratory: Normal respirations, no respiratory distress appreciated 11:16 Constitutional: The patient appears alert, awake, uncomfortable. 11:16 Abdomen/GI: Inspection: abdomen appears normal, Bowel sounds: normal, Palpation: soft, mild abdominal tenderness, in the right upper quadrant and left upper quadrant. 11:16 Musculoskeletal/extremity: ROM: intact in all extremities. 11:16 Skin: Appearance: Color: normal in color. 11:16 Neuro: Orientation: is normal, Mentation: is normal, Memory: is normal. 11:16 Psych: Behavior/mood is pleasant, cooperative. Vital Signs: 11:11 BP 159 / 83; Pulse 118; Resp 17; Temp 99.9; Pulse Ox 100% on R/A; Pain 10/10; sg 12:24 BP 108 / 93; Pulse 75; Resp 17; Pulse Ox 99% on R/A; tw2 13:00 BP 123 / 77; Pulse 72; Resp 16; Pulse Ox 100% ; sv 14:09 BP 129 / 85; Pulse 74; Resp 17; Pulse Ox 100% on R/A; Pain 6/10; tw2 MDM: 11:22 Patient medically screened. [facility] 13:23 Data reviewed: vital signs, nurses notes. Counseling: I had a detailed discussion with jarek the patient and/or guardian regarding: the historical points, exam findings, and any diagnostic results supporting the discharge/admit diagnosis, lab results, the need for outpatient follow up, to return to the emergency department if symptoms worsen or persist or if there are any questions or concerns that arise at home. ED course: Pain is relieved in the ED. PE findings are not consistent with acute abdomen. Patient states this is a similar presentation to previous crohns flares. Risks and benefits of CT imaging discussed with the patient. Patient elected to begin a trial of outpatient therapy and will follow up with Dr. Wolff for reevaluation next week. patient was otherwise given strict return precautions. patient understood and agrees with the plan of care. . 05/20 11:16 Order name: Basic Metabolic Panel; Complete Time: 12:40 [facility] 05/20 11:16 Order name: CBC with Diff; Complete Time: 12:40 [facility] 05/20 11:16 Order name: Creatinine for Radiology; Complete Time: 12:40 [facility] 05/20 11:16 Order name: Hepatic Function; Complete Time: 12:40 [facility] 05/20 11:16 Order name: Lipase; Complete Time: 12:40 [facility] 05/20 13:28 Order name: Urine Dipstick--Ancillary (enter results) 05/20 11:16 Order name: IV Saline Lock; Complete Time: 12:01 [facility] 05/20 11:16 Order name: Labs collected and sent; Complete Time: 11:41 [facility] 05/20 12:41 Order name: Urine Test (obtain specimen); Complete Time: 14:01 [facility] 05/20 12:41 Order name: Urine Dipstick-Ancillary (obtain specimen); Complete Time: 14:01 [facility] Administered Medications: 11:56 Drug: Zofran 4 mg Route: IVP; Site: left forearm; tw2 13:48 Follow up: Response: No adverse reaction; Nausea is decreased tw2 11:58 Drug: morphine 4 mg Route: IVP; Site: left forearm; tw2 13:48 Follow up: Response: No adverse reaction; Pain is unchanged, physician notified; RASS: tw2 Alert and Calm (0) 12:00 Drug: NS 0.9% 1000 ml Route: IV; Rate: 1 bolus; Site: left forearm; tw2 13:09 Follow up: Response: No adverse reaction; IV Status: Completed infusion; IV Intake: tw2 1000ml 13:54 Not Given (Duplicate Order): morphine 4 mg IM once; RASS on ADMIN: Combtv4, Very tw2 Agttd3, Agttd2, Rstlss1, AlertClm0, Drwsy-1, Lt Sdtn-2, Mod Sdtn-3, Dp Sdtn-4, UnArsble-5 13:54 Drug: morphine 4 mg Route: IVP; Site: left forearm; tw2 14:08 Follow up: Response: No adverse reaction; Pain is decreased; RASS: Alert and Calm (0) tw2 Disposition: 05/20/19 13:37 Discharged to Home. Impression: Crohn's disease [regional enteritis]. - Condition is Stable. - Discharge Instructions: Crohn Disease. - Prescriptions for Prednisone 20 mg Oral Tablet - take 1 tablet by ORAL route every 12 hours for 5 days; 10 tablet. - Medication Reconciliation Form, Thank You Letter, Antibiotic Education, Prescription Opioid Use, Work release form form. - Follow up: Johana Wolff MD; When: 2 - 3 days; Reason: Recheck today's complaints, Continuance of care, Re-evaluation by your physician. Addendum: 05/22/2019 09:53 Co-signature as Attending Physician, Axel Freeman MD I agree with the assessment and k dr plan of care. Signatures: Dispatcher [employer] EDAnkit Menendez, BHAVIK GUTIERRES Axel Freeman MD MD [facility] Ki Arredondo PA PA menam Fatoumata Sherwood, RN RN tw2 Corrections: (The following items were deleted from the chart) 05/20 14:10 13:37 05/20/2019 13:37 Discharged to Home. Impression: Crohn's disease [regional tw2 enteritis]. Condition is Stable. Forms are Work release form, Medication Reconciliation Form, Thank You Letter, Antibiotic Education, Prescription Opioid Use. Follow up: Johana Wolff; When: 2 - 3 days; Reason: Recheck today's complaints, Continuance of care, Re-evaluation by your physician. jarek
[2019-05-20 13:55] LABS: Urine Blood NEGATIVE (NEG); Urine Glucose NEGATIVE (NEG); Urine Protein NEGATIVE (NEG)
[2019-05-20 14:18] VITALS: TEMP 99.9
[2019-05-20 14:21] VITALS: O2SAT 100
[2019-05-20 14:22] VITALS: BP 129/85
== END 2019-05-20 14:10 | disposition home or self-care (01) ==
LOC: ER 11:04
DX: K50.90 Crohn's disease, unspecified, without complications (principal); I10 Essential (primary) hypertension; Z88.8 Allergy status to other drugs, medicaments and biological substances
CPT/HCPCS: 96361; 85025; 80048; 36415; 80076; 81003; 83690; 96375; 96374; 99284; J7030; J2405

== ENCOUNTER 2019-05-24 08:21 | Emergency (ER) | payer OTHER ==
[2019-05-24] MEDS ORDERED: PROMETHAZINE 25 MG/ML VIAL ONE ×2 (08:42→09:43)
[2019-05-24] MEDS ORDERED: MORPHINE 4 MG/ML SYR ONE ×2 (08:44→09:44)
[2019-05-24] MEDS ORDERED: NA CHLORIDE 0.9% 1,000 ML ONE (08:44)
[2019-05-24 09:13] LABS: Absolute Lymphocytes (CBC) 3.4 K/uL (0.7-4.9)
[2019-05-24 09:19] LABS: Basophils % 1.1 % (0-1.3); Hematocrit 37.4 % (36.0-45.0); Lymphocytes % 32.1 % (15.3-44.8); MPV 7.4 fL (7.6-11.3); RBC Red Blood Cell Count 4.52 M/uL (3.86-4.86)
[2019-05-24 09:31] LABS: ALT/SGPT 19 U/L (12-78); AST/SGOT 10 U/L (15-37); Albumin 3.9 g/dL (3.4-5.0); Alkaline Phosphatase 57 U/L (45-117); BUN Blood Urea Nitrogen 12 mg/dL (7-18); Bicarbonate 21 mmol/L (21-32); Bilirubin Direct < 0.1 mg/dL (0-0.2); Bilirubin Total 0.3 mg/dL (0.2-1.0); Glucose Level 91 mg/dL (74-106); Lipase 64 U/L (73-393); Protein, Total 7.7 g/dL (6.4-8.2); Sodium Level 141 mmol/L (136-145)
--- NOTE | 2019-05-24 10:15 | RAD REPORT ---
EXAM DESCRIPTION: CT - Abdomen Pelvis W Contrast - 05/24/2019 9:50 am CLINICAL HISTORY: Abdominal pain COMPARISON: April 2019 TECHNIQUE: Computed axial tomography of the abdomen pelvis was obtained. 100 cc Isovue-300 was admin istered intravenously. Oral contrast was not requested which limits evaluation of bowel. All CT scans are performed using dose optimization technique as appropriate and may include automated exposure control or mA/KV adjustment according to patient size. FINDINGS: Mild fatty liver. Cholecystectomy The Spleen, pancreas, adrenal and kidneys appear unremarkable. There is no evidence of diverticulitis. A 2 centimeter irregularly-shaped right ovarian cyst without significant free fluid IMPRESSION: A 2 centimeter irregularly-shaped right ovarian cyst without significant free fluid
--- NOTE | 2019-05-24 10:45 | ER ---
Nurse's Notes [facility] Name: Sowmya Juarez Age: 34 yrs Sex: Female : 1985 Arrival Date: 05/24/2019 Time: 08:24 Bed 20 Private MD: Diagnosis: Nausea and vomiting;Unspecified abdominal pain;Dehydration Presentation: 05/24 08:36 Presenting complaint: Patient states: has been vomtiing for over a week, was seen here iw for Crohn's flare up on Wednesday, was given IV fluids and steroids, was seen in Dr. Wolff's office on Wednesday was running 103 temp, was given more IV fluids and told to come back if she wasn't feeling any better and if she was still running fever. Transition of care: patient was not received from another setting of care. Onset of symptoms was May 16, 2019. Risk Assessment: Do you want to hurt yourself or someone else? Patient reports no desire to harm self or others. Initial Sepsis Screen: Does the patient meet any 2 criteria? No. Patient's initial sepsis screen is negative. Does the patient have a suspected source of infection? No. Patient's initial sepsis screen is negative. Care prior to arrival: None. 08:36 Method Of Arrival: Ambulatory iw 08:36 Acuity: KALYN 2 hb Historical: - Allergies: 08:39 Compazine; hb 08:39 Prochlorperazine; hb 08:39 prochlorperazine Edisylate; hb 08:39 Prochlorperazine Maleate; hb 08:40 Compazine; iw 08:40 Prochlorperazine; iw 08:40 prochlorperazine Edisylate; iw 08:40 Prochlorperazine Maleate; iw 08:40 Demerol; iw - Home Meds: 08:49 Bentyl 20 mg oral tab as needed [Active]; Pentasa 500 mg Oral TbER 2 caps twice a day iw [Active]; Phenergan Oral 25 mg as needed [Active]; Phenergan 25 mg Rectal supp as needed [Active]; Prozac 20 mg Oral cap 1 cap once daily [Active]; Risperdal 3 mg Oral tab 1 tab nightly [Active]; Stelara subcutaneous subcutaneous every 8 weeks [Active]; tramadol 50 mg Oral tab 1 tab as needed [Active]; trazodone 100 mg oral tab nightly [Active]; Zofran (as hydrochloride) 4 mg oral tab as needed [Active]; prednisone 20 mg Oral tab 1 tab 2 times per day [Active]; lisinopril 20 mg Oral tab 1 tab once daily [Active]; - PMHx: 08:40 Bipolar disorder; Crohn's; Hypertension; Migraines; iw - PSHx: 08:50 Cholecystectomy; Appendectomy; ; Tubal ligation; iw - Immunization history:: Adult Immunizations up to date. - Ebola Screening: : Patient negative for fever greater than or equal to 101.5 degrees Fahrenheit, and additional compatible Ebola Virus Disease symptoms Patient denies exposure to infectious person Patient denies travel to an Ebola-affected area in the 21 days before illness onset No symptoms or risks identified at this time. - Social history:: Smoking status: Patient/guardian denies using tobacco. Screenin:50 Abuse screen: Denies threats or abuse. Denies injuries from another. Nutritional hb screening: No deficits noted. Tuberculosis screening: No symptoms or risk factors identified. Fall Risk None identified. Assessment: 08:50 General: Appears in no apparent distress. ill, Behavior is calm, cooperative. Pain: hb Pain currently is 7 out of 10 on a pain scale. Neuro: Level of Consciousness is awake, alert, obeys commands, Oriented to person, place, time, situation. Cardiovascular: Capillary refill < 3 seconds Patient's skin is warm and dry. Respiratory: Airway is patent Respiratory effort is even, unlabored, Respiratory pattern is regular, symmetrical, Breath sounds are clear bilaterally. GI: Abdomen is non-distended, Bowel sounds present X 4 quads. Abd is soft and non tender X 4 quads. Reports lower abdominal pain, upper abdominal pain, nausea, vomiting. : No signs and/or symptoms were reported regarding the genitourinary system. EENT: No signs and/or symptoms were reported regarding the EENT system. Derm: Skin is intact, is healthy with good turgor, Skin is pink, warm \T\ dry. Musculoskeletal: No signs and/or symptoms reported regarding the musculoskeletal system. 09:44 Reassessment: Pt reports nausea and pain 03/15. UNDERWRITING TECHNICIAN Jaguar notified, repeat Phenergan hb and Morphine administered as ordered. 09:47 Reassessment: Pt to CT. hb 10:15 Reassessment: Patient appears in no apparent distress at this time. Patient and/or hb family updated on plan of care and expected duration. Pain level reassessed. Patient is alert, oriented x 3, equal unlabored respirations, skin warm/dry/pink. 11:00 Reassessment: Patient appears in no apparent distress at this time. Patient and/or hb family updated on plan of care and expected duration. Pain level reassessed. Patient is alert, oriented x 3, equal unlabored respirations, skin warm/dry/pink. Discharge pending completion of IV fluids. Vital Signs: 08:41 BP 89 / 66; Pulse 103; Resp 18 S; Temp 99.2(O); Pulse Ox 100% on R/A; Weight 86.64 kg; iw Height 5 ft. 3 in. (160.02 cm); Pain 7/10; 09:30 BP 85 / 68; Pulse 92; Resp 15; Pulse Ox 99% on R/A; Pain 7/10; hb 10:30 BP 124 / 81; Pulse 69; Resp 17; Temp 98.9(O); Pulse Ox 99% ; mh5 08:41 Body Mass Index 33.83 (86.64 kg, 160.02 cm) iw ED Course: 08:24 Patient arrived in ED. mr 08:28 Marley Abreu, BHAVIK is Primary Nurse. hb 08:29 Jaguar Streeter NP is PHCP. pm1 08:29 Axel Freeman MD is Attending Physician. pm1 08:38 Triage completed. iw 08:41 Arm band placed on. iw 08:50 Patient has correct armband on for positive identification. Bed in low position. Call hb light in reach. Side rails up X 1. 09:04 Inserted saline lock: 22 gauge in left forearm, using aseptic technique. Blood hb collected. 09:09 Lipase Sent. hb 09:09 Hepatic Function Sent. hb 09:09 Creatinine for Radiology Sent. hb 09:09 CBC with Diff Sent. hb 09:09 Basic Metabolic Panel Sent. hb 09:50 CT Abd/Pelvis - IV Contrast Only In Process Unspecified. EDMS 11:28 No provider procedures requiring assistance completed. IV discontinued, intact, hb bleeding controlled, No redness/swelling at site. Pressure dressing applied. Administered Medications: 09:04 Drug: NS 0.9% 1000 ml Route: IV; Rate: 1000 ml; Site: left forearm; hb 11:24 Follow up: Response: No adverse reaction; IV Status: Completed infusion; IV Intake: hb 1000ml 09:04 Drug: morphine 4 mg Route: IVP; Site: left forearm; hb 09:46 Follow up: Response: No adverse reaction; RASS 0 hb 09:08 Drug: Phenergan 12.5 mg Route: IVP; Site: left forearm; hb 09:47 Follow up: Response: No adverse reaction hb 09:46 Drug: morphine 4 mg {Note: RASS 0.} Route: IVP; Site: left forearm; hb 11:06 Follow up: Response: No adverse reaction hb 09:46 Drug: Phenergan 12.5 mg Route: IVP; Site: left forearm; hb 10:20 Follow up: Response: No adverse reaction hb 11:01 Drug: Potassium Chloride 40 mEq Route: PO; hb 11:25 Follow up: Response: Medication administered at discharge. hb 11:01 Drug: SOLU-Medrol 125 mg Route: IVP; Site: left forearm; hb 11:25 Follow up: Response: Medication administered at discharge. hb 11:24 Drug: morphine 2 mg Route: IVP; Site: left forearm; hb 11:25 Follow up: Response: Medication administered at discharge. hb Intake: 11:24 IV: 1000ml; Total: 1000ml. hb Outcome: 10:44 Discharge ordered by . pm1 11:28 Discharged to home ambulatory, with family. hb 11:28 Condition: stable 11:28 Discharge instructions given to patient, Instructed on discharge instructions, follow up and referral plans. medication usage, Demonstrated understanding of instructions, follow-up care, medications, Prescriptions given X 2. 11:30 Patient left the ED. hb Signatures: Dispatcher [employer] EDMI Karen Gomez Irene, RN RN iw Jaguar Streeter NP UNDERWRITING TECHNICIAN pm1 Marley Abreu RN RN hb Martinez, Maria [facility] Corrections: (The following items were deleted from the chart) 09:50 08:36 Acuity: KALYN 3 iw hb 09:50 09:30 BP 90 / 68; Pulse 92bpm; Resp 15bpm; Pulse Ox 99% RA; Pain 7/10; hb hb
--- NOTE | 2019-05-24 10:45 | EDPHYS ---
Physician Documentation [facility] Name: Sowmya Juarez Age: 34 yrs Sex: Female : 1985 Arrival Date: 05/24/2019 Time: 08:24 Bed 20 Private MD: ED Physician Axel Freeman HPI: 05/24 08:43 This 34 yrs old Female presents to ER via Ambulatory with complaints of pm1 Vomiting. 08:43 The patient presents to the emergency department with nausea, vomiting, abdominal pain, pm1 of the epigastric area, described as Feels like prior Crohns' flare up. 08:43 Onset: The symptoms/episode began/occurred 1 week(s) ago. Possible causes: flare up of pm1 bowel problem, Crohn's disease. The symptoms are aggravated by food , The symptoms are alleviated by nothing. Associated signs and symptoms: Pertinent positives: abdominal pain, nausea, vomiting, Pertinent negatives: constipation, diarrhea, dysuria, fever. Severity of symptoms: in the emergency department the symptoms are worse. The patient has been recently seen by a physician: Dr. Wolff. has EGD scheduled for next . Historical: - Allergies: 08:39 Compazine; hb 08:39 Prochlorperazine; hb 08:39 prochlorperazine Edisylate; hb 08:39 Prochlorperazine Maleate; hb 08:40 Compazine; iw 08:40 Prochlorperazine; iw 08:40 prochlorperazine Edisylate; iw 08:40 Prochlorperazine Maleate; iw 08:40 Demerol; iw - Home Meds: 08:49 Bentyl 20 mg oral tab as needed [Active]; Pentasa 500 mg Oral TbER 2 caps twice a day iw [Active]; Phenergan Oral 25 mg as needed [Active]; Phenergan 25 mg Rectal supp as needed [Active]; Prozac 20 mg Oral cap 1 cap once daily [Active]; Risperdal 3 mg Oral tab 1 tab nightly [Active]; Stelara subcutaneous subcutaneous every 8 weeks [Active]; tramadol 50 mg Oral tab 1 tab as needed [Active]; trazodone 100 mg oral tab nightly [Active]; Zofran (as hydrochloride) 4 mg oral tab as needed [Active]; prednisone 20 mg Oral tab 1 tab 2 times per day [Active]; lisinopril 20 mg Oral tab 1 tab once daily [Active]; - PMHx: 08:40 Bipolar disorder; Crohn's; Hypertension; Migraines; iw - PSHx: 08:50 Cholecystectomy; Appendectomy; ; Tubal ligation; iw - Immunization history:: Adult Immunizations up to date. - Ebola Screening: : Patient negative for fever greater than or equal to 101.5 degrees Fahrenheit, and additional compatible Ebola Virus Disease symptoms Patient denies exposure to infectious person Patient denies travel to an Ebola-affected area in the 21 days before illness onset No symptoms or risks identified at this time. - Social history:: Smoking status: Patient/guardian denies using tobacco. ROS: 08:43 Constitutional: Negative for fever, chills, and weight loss, Eyes: Negative for injury, pm1 pain, redness, and discharge, ENT: Negative for injury, pain, and discharge, Neck: Negative for injury, pain, and swelling, Cardiovascular: Negative for chest pain, palpitations, and edema, Respiratory: Negative for shortness of breath, cough, wheezing, and pleuritic chest pain. 08:43 Back: Negative for injury and pain, : Negative for injury, bleeding, discharge, and swelling, MS/Extremity: Negative for injury and deformity, Skin: Negative for injury, rash, and discoloration, Neuro: Negative for headache, weakness, numbness, tingling, and seizure. 08:43 Abdomen/GI: Positive for abdominal pain, nausea and vomiting, Negative for diarrhea, constipation. Exam: 08:43 Constitutional: This is a well developed, well nourished patient who is awake, alert, pm1 and in no acute distress. Head/Face: Normocephalic, atraumatic. Eyes: Pupils equal round and reactive to light, extra-ocular motions intact. Lids and lashes normal. Conjunctiva and sclera are non-icteric and not injected. Cornea within normal limits. Periorbital areas with no swelling, redness, or edema. ENT: Nares patent. No nasal discharge, no septal abnormalities noted. Tympanic membranes are normal and external auditory canals are clear. Oropharynx with no redness, swelling, or masses, exudates, or evidence of obstruction, uvula midline. Mucous membranes moist. Neck: Trachea midline, no thyromegaly or masses palpated, and no cervical lymphadenopathy. Supple, full range of motion without nuchal rigidity, or vertebral point tenderness. No Meningismus. Chest/axilla: Normal chest wall appearance and motion. Nontender with no deformity. No lesions are appreciated. Cardiovascular: Regular rate and rhythm with a normal S1 and S2. No gallops, murmurs, or rubs. Normal PMI, no JVD. No pulse deficits. Respiratory: Lungs have equal breath sounds bilaterally, clear to auscultation and percussion. No rales, rhonchi or wheezes noted. No increased work of breathing, no retractions or nasal flaring. 08:43 Back: No spinal tenderness. No costovertebral tenderness. Full range of motion. Skin: Warm, dry with normal turgor. Normal color with no rashes, no lesions, and no evidence of cellulitis. MS/ Extremity: Pulses equal, no cyanosis. Neurovascular intact. Full, normal range of motion. 08:43 Abdomen/GI: Inspection: abdomen appears normal, Palpation: soft, mild abdominal tenderness, in the right upper quadrant and left upper quadrant, mass, is not appreciated, rebound tenderness, is not appreciated. 08:43 Neuro: Orientation: is normal, Motor: is normal, moves all fours. Vital Signs: 08:41 BP 89 / 66; Pulse 103; Resp 18 S; Temp 99.2(O); Pulse Ox 100% on R/A; Weight 86.64 kg; iw Height 5 ft. 3 in. (160.02 cm); Pain 7/10; 09:30 BP 85 / 68; Pulse 92; Resp 15; Pulse Ox 99% on R/A; Pain 7/10; hb 10:30 BP 124 / 81; Pulse 69; Resp 17; Temp 98.9(O); Pulse Ox 99% ; mh5 08:41 Body Mass Index 33.83 (86.64 kg, 160.02 cm) iw MDM: 08:31 Patient medically screened. pm1 10:43 Data reviewed: vital signs. Data interpreted: Pulse oximetry: on room air is 99 %. pm1 Interpretation: normal. Counseling: I had a detailed discussion with the patient and/or guardian regarding: the historical points, exam findings, and any diagnostic results supporting the discharge/admit diagnosis, lab results, radiology results, the need for outpatient follow up, Keep appointment with GI doctor next for endoscopy, to return to the emergency department if symptoms worsen or persist or if there are any questions or concerns that arise at home. 10:46 ED course: Patient feels that her pain is related to a Crohns' flare up and has an pm1 appointment with GI for endoscopy next . Patient reports that she may not have kept her PO steroids down with the nausea and vomiting over the past few days. Therefore I will give her steroids IV and discharge her with Medrol tapered dose rogelio. Discussed incidental right ovarian cyst with the patient. 05/24 08:37 Order name: Basic Metabolic Panel; Complete Time: 09:34 pm1 05/24 08:37 Order name: CBC with Diff; Complete Time: 09:58 pm1 05/24 08:37 Order name: Creatinine for Radiology; Complete Time: 09:34 pm1 05/24 08:37 Order name: Hepatic Function; Complete Time: 09:34 pm1 05/24 08:37 Order name: Lipase; Complete Time: 09:34 pm1 05/24 08:37 Order name: CT Abd/Pelvis - IV Contrast Only; Complete Time: 10:22 pm1 05/24 08:37 Order name: IV Saline Lock; Complete Time: 09:08 pm1 05/24 08:37 Order name: Labs collected and sent; Complete Time: 09:08 pm1 Administered Medications: 09:04 Drug: NS 0.9% 1000 ml Route: IV; Rate: 1000 ml; Site: left forearm; hb 11:24 Follow up: Response: No adverse reaction; IV Status: Completed infusion; IV Intake: hb 1000ml 09:04 Drug: morphine 4 mg Route: IVP; Site: left forearm; hb 09:46 Follow up: Response: No adverse reaction; RASS 0 hb 09:08 Drug: Phenergan 12.5 mg Route: IVP; Site: left forearm; hb 09:47 Follow up: Response: No adverse reaction hb 09:46 Drug: morphine 4 mg {Note: RASS 0.} Route: IVP; Site: left forearm; hb 11:06 Follow up: Response: No adverse reaction hb 09:46 Drug: Phenergan 12.5 mg Route: IVP; Site: left forearm; hb 10:20 Follow up: Response: No adverse reaction hb 11:01 Drug: Potassium Chloride 40 mEq Route: PO; hb 11:25 Follow up: Response: Medication administered at discharge. hb 11:01 Drug: SOLU-Medrol 125 mg Route: IVP; Site: left forearm; hb 11:25 Follow up: Response: Medication administered at discharge. hb 11:24 Drug: morphine 2 mg Route: IVP; Site: left forearm; hb 11:25 Follow up: Response: Medication administered at discharge. hb Disposition: 13:26 Co-signature as Attending Physician, Axel Freeman MD I agree with the assessment and kdr plan of care. Disposition: 05/24/19 10:44 Discharged to Home. Impression: Nausea and vomiting, Unspecified abdominal pain, Dehydration. - Condition is Stable. - Discharge Instructions: Abdominal Pain, Adult, Dehydration, Adult, Nausea and Vomiting, Adult, Rehydration, Adult. - Prescriptions for Tylenol- Codeine #3 300-30 mg Oral Tablet - take 2 tablets by ORAL route every 6 hours As needed; 20 tablet. Medrol (Rogelio) 4 mg Oral Tablets, Dose Pack - take 1 tablet by ORAL route as directed - follow package instructions; 1 packet. - Medication Reconciliation Form, Thank You Letter, Antibiotic Education, Prescription Opioid Use form. - Follow up: Emergency Department; When: As needed; Reason: Worsening of condition. Follow up: Private Physician; When: 2 - 3 days; Reason: Recheck today's complaints, Continuance of care, Re-evaluation by your physician. - Problem is new. - Symptoms have improved. Signatures: Dispatcher [employer] EDMS Axel Freeman MD MD [facility] Dee Smalls RN RN Jaguar Streeter NP STAPLE SHEAR OPERATOR pm1 Marley Abreu RN RN Corrections: (The following items were deleted from the chart) 11:30 10:44 05/24/2019 10:44 Discharged to Home. Impression: Nausea and vomiting; Unspecified hb abdominal pain; Dehydration. Condition is Stable. Forms are Medication Reconciliation Form, Thank You Letter, Antibiotic Education, Prescription Opioid Use. Follow up: Emergency Department; When: As needed; Reason: Worsening of condition. Follow up: Private Physician; When: 2 - 3 days; Reason: Recheck today's complaints, Continuance of care, Re-evaluation by your physician. Problem is new. Symptoms have improved. pm1
[2019-05-24] MEDS ORDERED: POTASSIUM CL SA 10 MEQ TAB PO ONE (10:56)
[2019-05-24] MEDS ORDERED: METHYLPREDNISOLONE 125 MG INJ ONE (10:56)
[2019-05-24] MEDS ORDERED: MORPHINE 2 MG/ML SYR ONE (11:06)
[2019-05-24 11:45] VITALS: O2SAT 99
[2019-05-24 11:47] VITALS: BP 124/81; TEMP 98.9
== END 2019-05-24 11:30 | disposition home or self-care (01) ==
LOC: ER 08:21
DX: E86.0 Dehydration (principal); R10.9 Unspecified abdominal pain; I10 Essential (primary) hypertension; F31.9 Bipolar disorder, unspecified; K50.90 Crohn's disease, unspecified, without complications; Z88.5 Allergy status to narcotic agent; Z88.8 Allergy status to other drugs, medicaments and biological substances
CPT/HCPCS: 96361; 85025; 80048; 36415; 80076; 83690; 74177; 96375; 96374; 99284; Q9967; J2550 ×2; J2270; J7030; J2930

== ENCOUNTER 2019-08-15 06:12 | Day surgery (SDC) | payer OTHER ==
[2019-08-15] MEDS ORDERED: Ringers Lactate 1,000 ML IV ONE (06:19)
[2019-08-15] MEDS ORDERED: CEFAZOLIN/SWI 2gm 2 GM/20 ML SYR ONE (06:20)
[2019-08-15 06:30] LABS: Specific Gravity 1.025 (1.005-1.030)
[2019-08-15] MEDS ORDERED: FENTANYL CITR 100 MCG/2 ML ONE (07:20)
[2019-08-15] MEDS ORDERED: propofoL 200 MG/20 ML VIAL IV ONE (07:21)
[2019-08-15] MEDS ORDERED: ONDANSETRON 4 MG/2 ML VIAL ONE ×2 (07:22→08:45)
[2019-08-15] MEDS ORDERED: MIDAZOLAM HCL 2 MG/2 ML INJ ONE (07:22)
[2019-08-15] MEDS ORDERED: LIDOCAINE 2% MPF 5 ML VIAL ONE (07:22)
[2019-08-15] MEDS ORDERED: KETOROLAC 30 MG/ML INJ ONE (08:06)
[2019-08-15] MEDS: HYDROMORPHONE HCL 2 MG/ML inj ONE ×4 (08:44→08:57)
[2019-08-15] MEDS ORDERED: PROMETHAZINE INJ 25 MG/ML AMP ONE (08:57)
[2019-08-15] MEDS: HYDROMORPHONE HCL 1 MG/ML INJ ONE ×2 (09:02→09:08)
[2019-08-15] MEDS: MORPHINE 4 MG/ML SYR ONE ×4 (09:12→09:35)
[2019-08-15] MEDS ORDERED: HYDROCODONE/APAP 5/325 MG TAB ONE (10:19)
[2019-08-15 10:22] VITALS: TEMP 98.1
[2019-08-15 11:12] VITALS: BP 123/63; O2SAT 99
--- NOTE | 2019-08-15 19:09 | OP ---
Date of Procedure: 08/15/2019 Surgeon: Dinorah Mclaughlin MD Preoperative Diagnoses: Menorrhagia, pelvic pain, patient with Crohn disease and hypertension. Postoperative Diagnoses: Menorrhagia, pelvic pain, patient with Crohn disease and hypertension, endo metrial polyps. Procedure Performed: Hysteroscopy D and C, removal of the polyps, then endometrial ablation with HTA . Anesthesia: General with LMA. Specimens: Endometrial curettings. Complications: No complications. Drains: No drains. Condition: Stable. Patient is stable. Patient tolerated the procedure well. Findings: Uterus was significantly anteflexed. The cervix was narrow and had to be dilated. Then, she had endometrial polyps in the cavity that had to be curetted and removed with Danilo forceps. On ce the cavity was mostly evacuated, then ablation was performed satisfactorily without any leak, with out any problems and with a global endometrial effect of the ablation being optimal. The patient is a 34-year-old, based on history and physical, with the hypertension, bipolar, depressi on, Crohn disease. She is status post 2 full-term deliveries, 1 vaginal, 1 after which she had a tubal ligation. She was adopted without any family history. Patient on multiple medications f or all her medical condition. When she had abnormal bleeding, she was sampled. Endometrial biopsy i n the office was performed. 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 A transvaginal ultrasound was performed as well as a CT scan prior to coming to us with 1 cm right ovarian cyst that was possibly a collapsing cyst was seen, but no other abnormal findings w ere found. She had some right adnexal tenderness, but no masses were seen. So, we discussed about t he different options for this patient after the biopsy was negative including a Mirena IUD or endomet rial ablation or depot medroxyprogesterone acetate for all alternatives for treatment of bleeding. A fter discussing the benefits and risks of all these procedures and the oral contraceptives, patient w anted to proceed with ablation. She does have some dyspareunia and it has been going on for at least 6 months and her periods have been getting increasingly heavier. She was very skeptical of having a n intrauterine device like the IUD, preferred to have an ablation, and so she was consented for this as it was reasonable. She was done with childbearing even though she was only 34, reasonable option. So, hysteroscopic evaluation, endometrial ablation was the next step. She was given Provera 10 mg for fitting her lining. Her bleeding still continues, but not heavy at this time. Description Of Procedure: After informed consent was verified, patient was taken back to OR and plac ed in supine fashion. General anesthesia given and placed in a dorsal lithotomy position. Pelvic ex am performed. Uterus anteflexed. Speculum placed to expose the cervix after prep x3 with Betadine w as done of the vulva, vagina, and perineal area. The anterior lip was grasped with 2 Allis clamps. HTA sheath that was primed was inserted into the cervical canal. However, the cervix appeared to be stenotic and would not allow the passage of the HTA sheath. So, SlimLine diagnostic hysteroscope was introduced first after ensuring the direction of the canal into the uterine cavity. Then, dilation was performed to 16-Turkmen, then HTA sheath was inserted. There were endometrial polyps and thickene d endometrium, so plan was to remove the polyps and then do the ablation. After the scope was remove d, endometrial curettings were performed and then polyp forceps was used to retrieve the polyps and t he curettings. Once this was cleared out, clots and all that were cleared out as well with HTA, and then once the cavity was cleared of most of the clots, there was a tiny piece of polypoid tissue left on the left lateral wall. Other than this, the entire cavity was smoothed. Both tubal ostia were w ell visualized. The tip of the scope was placed in the center of the cavity and then cavity integrit y test was done. Two Ray-Tecs were packed in the posterior fornix and then and the Allis clamp was a ttached to the HTA sheath. After uninterrupted ablation, cavity integrity test, ablation cycle was s tarted. 10-minute ablation cycle and 1.5 minute cooling cycle were conducted without any interruptio n. Diagnostic hysteroscopy was performed at the end to clean out all the ablated tissue and ablated clots. Once this was done, the 2 Ray-Tecs were removed. Instrument, needle, and sponge counts were done and were correct at the end of the case. The patient tolerated the procedure well. She will fo llow up with us for the sampling results and the HTA followup in 1 week month. She was advised to st op her progesterone. GREGOR/BRIAN Voice ID: [id number] Report ID: [id number]
== END 2019-08-15 11:05 | disposition home or self-care (01) ==
LOC: OR 06:12
PROVIDERS: ATTEND Obstetrics & Gynecology
PROC: 0UB97ZX Excision of Uterus, Via Natural or Artificial Opening, Diagnostic (ICD-10-PCS; 2019-08-15)
PROC: 0UDB7ZX Extraction of Endometrium, Via Natural or Artificial Opening, Diagnostic (ICD-10-PCS; 2019-08-15)
PROC: 0U5B8ZZ Destruction of Endometrium, Via Natural or Artificial Opening Endoscopic (ICD-10-PCS; principal; 2019-08-15 07:30)
PROC: 0UDB7ZX Extraction of Endometrium, Via Natural or Artificial Opening, Diagnostic (ICD-10-PCS; 2019-08-15 07:30)
DX: N92.0 Excessive and frequent menstruation with regular cycle (principal); N84.0 Polyp of corpus uteri; K50.118 Crohn's disease of large intestine with other complication; I10 Essential (primary) hypertension; F31.9 Bipolar disorder, unspecified; F32.9 Major depressive disorder, single episode, unspecified; F41.9 Anxiety disorder, unspecified; K21.9 Gastro-esophageal reflux disease without esophagitis; Z88.8 Allergy status to other drugs, medicaments and biological substances; Z90.49 Acquired absence of other specified parts of digestive tract; Z98.51 Tubal ligation status
CPT/HCPCS: 58563; 58558; 81025; 88305; J2704; J2550; J2250; J1170 ×2; J3010; J0690; J7120; J2405 ×2

== ENCOUNTER 2020-06-18 10:48 | Emergency (ER) | payer OTHER ==
--- OUTSIDE RECORDS SUMMARY | 2020-06-18 10:54 | XMS REPORT | Continuity of Care Document ---
:1985 Author Organization [facility] t Address [address] [place] [address] Dr. Sh[address] [place] [address] Care Team Providers Name Role Phone Doctor Unassigned, Name Attending Clinician Unavailable Omer GUTIERRES Attending Clinician Unavailable Wai BURKETT, A Attending Clinician Ronald OBRIEN Attending Clinician Brayden BURKETT Attending Clinician Wai BURKETT, A Admitting Clinician Brayden BURKETT Admitting Clinician Problems This patient has no known problems. Allergies, Adverse Reactions, Alerts This patient has no known allergies or adverse reactions. Medications This patient has no known medications. Procedures This patient has no known procedures. Encounters Start End Encounter Admission Attending Care Care Encounter Source Date/Time Date/Time Type Type Clinicians Facility Department ID 2020-03-19 2020-03-19 Orders Doctor CASILLAS [id number] 00:00:00 00:00:00 Only Unassigned, DEXTER [id number] [facility] [id number] 2020-02-28 2020-02-28 Transition Muna Tello [id number] 00:00:00 00:00:00 of Care Marley Castano [id number] [place] [id number] 2020-02-23 2020-02-27 [facility] Magalys Carreno [id number] 21:57:28 16:56:00 Encounter Michael Wing Dex[place] [id number] [id number] 2020-01-31 2020-02-02 [facility] Annamaria Cardenas [facility] [id number]. [id number] 13:56:16 12:50:00 Encounter Keegan Owen [id number] [place] [id number] 2020-01-31 2020-01-31 Orders Doctor SONJA [id number] 00:00:00 00:00:00 Only Unassigned, DEXTER [id number] [place] [id number] [id number] Results This patient has no known results.
[2020-06-18 11:26] LABS: Absolute Lymphocytes (CBC) 2.4 K/uL (0.7-4.9); Basophils % 0.7 % (0-1.3); Hematocrit 35.8 % (36.0-45.0); Lymphocytes % 34.8 % (15.3-44.8); MPV 7.7 fL (7.6-11.3); RBC Red Blood Cell Count 4.23 M/uL (3.86-4.86)
--- NOTE | 2020-06-18 11:33 | RAD REPORT ---
EXAM DESCRIPTION: CT - Head Brain Wo Cont - 06/18/2020 11:24 am CLINICAL HISTORY: HEADACHE Headache, drowsiness COMPARISON: Head Brain Wo Cont dated 04/10/2019; HEAD BRAIN W O CONTRAST dated 08/21/2015 TECHNIQUE: All CT scans are performed using dose optimization technique as appropriate and may inclu de automated exposure control or mA/KV adjustment according to patient size. FINDINGS: No intracranial hemorrhage, hydrocephalus or extra-axial fluid collection.No areas of brai n edema or evidence of midline shift. The paranasal sinuses and mastoids are clear. The calvarium is intact. IMPRESSION: No acute intracranial abnormality.
[2020-06-18] MEDS ORDERED: dexAMETHasone 10 MG/ML VIAL ONE (11:39)
[2020-06-18] MEDS ORDERED: MEPERIDINE HCL 50 MG/ML ONE (11:39)
[2020-06-18] MEDS ORDERED: NA CHLORIDE 0.9% 1,000 ML ONE (11:39)
--- NOTE | 2020-06-18 11:45 | RAD REPORT ---
EXAM DESCRIPTION: RAD - Chest Single View - 06/18/2020 11:34 am CLINICAL HISTORY: CHEST PAIN Chest pain. COMPARISON: Chest Pa And Lat (2 Views) dated 04/16/2016; CHEST SINGLE VIEW dated 10/09/2015; ABDOMEN 1 VIEW KUB dated 07/29/2015; CHEST PA AND LAT 2 VIEW dated 12/10/2009 FINDINGS: Portable technique limits examination quality. The lungs are grossly clear. The heart is normal in size. No displaced fractures. IMPRESSION: No acute intrathoracic process suspected.
[2020-06-18 11:50] LABS: Urine Blood NEGATIVE (NEG); Urine Glucose NEGATIVE (NEG); Urine Protein NEGATIVE (NEG); Urine Specific Gravity 1.025 (1.005-1.030)
[2020-06-18 11:53] LABS: BUN Blood Urea Nitrogen 14 mg/dL (7-18); Bicarbonate 23 mmol/L (21-32); Glucose Level 95 mg/dL (74-106); Potassium 3.4 mmol/L (3.5-5.1); Sodium Level 139 mmol/L (136-145); Troponin (Emerg Dept Use Only) < 0.02 ng/mL (0.0-0.045)
[2020-06-18 11:56] LABS: Urine Bacteria <20 /HPF (<20); Urine RBC <5 /HPF (NONE SEEN)
[2020-06-18 11:57] LABS: Urine Culture Reflex Order NOT NEEDED
--- NOTE | 2020-06-18 13:24 | ER ---
Nurse's Notes [facility] Name: Sowmya Juarez Age: 35 yrs Sex: Female : 1985 Arrival Date: 06/18/2020 Time: 10:51 Bed 13 Private MD: Diagnosis: Chest pain, unspecified;Migraine Presentation: 06/18 11:05 Chief complaint: Patient states: Mid-sternal chest pain, radiates to under right breast jl7 and SAUL x 2 days. Coronavirus screen: Client denies travel out of the [place] in the last 14 days. At this time, the client does not indicate any symptoms associated with coronavirus-19. Ebola Screen: No symptoms or risks identified at this time. Initial Sepsis Screen: Does the patient meet any 2 criteria? No. Patient's initial sepsis screen is negative. Does the patient have a suspected source of infection? No. Patient's initial sepsis screen is negative. Risk Assessment: Do you want to hurt yourself or someone else? Patient reports no desire to harm self or others. Onset of symptoms was June 16, 2020. Care prior to arrival: None. Transition of care: patient was not received from another setting of care. 11:05 Method Of Arrival: Ambulatory jl7 11:05 Acuity: KALYN 3 jl7 Triage Assessment: 11:12 General: Appears in no apparent distress. uncomfortable, Behavior is cooperative, jl7 anxious. Pain: Complains of pain in mid-sternal area Pain radiates to right breast Pain currently is 6 out of 10 on a pain scale. Pain began 2-3 days ago. Pain: Complains of pain in SAUL Pain currently is 7 out of 10 on a pain scale. Pain began 2-3 days ago. Neuro: Level of Consciousness is awake, alert, obeys commands, Oriented to person, place, time, situation. Cardiovascular: Patient's skin is warm and dry. Respiratory: Airway is patent Respiratory effort is even, unlabored, Respiratory pattern is regular, symmetrical. GI: No signs and/or symptoms were reported involving the gastrointestinal system. : No signs and/or symptoms were reported regarding the genitourinary system. Derm: Rash noted that is on chest. Musculoskeletal: No signs and/or symptoms reported regarding the musculoskeletal system. 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 - Irregular menses jl7 Historical: - Allergies: 11:12 Compazine; jl7 11:12 Demerol; jl7 11:12 Prochlorperazine; jl7 11:12 prochlorperazine Edisylate; jl7 11:12 Prochlorperazine Maleate; jl7 - Home Meds: 11:12 pantoprazole 40 mg oral TbEC 1 tab once daily [Active]; topiramate 50 mg oral CSpX 1 jl7 cap once daily [Active]; atorvastatin 20 mg oral tab 1 tab once daily [Active]; lisinopril 20 mg Oral tab 1 tab once daily [Active]; Prozac 20 mg Oral cap 1 cap once daily [Active]; Lamictal 100 mg Oral tab 1 tab once daily [Active]; Zyrtec Oral [Active]; Flonase Nasal [Active]; Albuterol Inhl [Active]; Symbicort inhalation inhalation [Active]; Risperdal 3 mg Oral tab 1 tab nightly [Active]; trazodone 100 mg Oral tab nightly [Active]; Stelara subcutaneous every 8 weeks [Active]; Imitrex 25 mg Oral tab 1 tab [Active]; Zofran (as hydrochloride) 4 mg Oral tab as needed [Active]; Phenergan Oral 25 mg as needed [Active]; - PMHx: 11:12 Bipolar disorder; Crohn's; Hypertension; Migraines; jl7 - PSHx: 11:12 Tubal ligation; ; Appendectomy; Cholecystectomy; jl7 - Immunization history:: Adult Immunizations up to date. - Social history:: Smoking status: Patient denies any tobacco usage or history of. - Family history:: not pertinent. - Hospitalizations: : No recent hospitalization is reported. Screenin:38 Abuse screen: Denies threats or abuse. Denies injuries from another. Nutritional jl7 screening: No deficits noted. Tuberculosis screening: No symptoms or risk factors identified. Fall Risk IV access (20 points). [place] Fall Scale indicates No Risk (0-24 pts). Assessment: 11:38 General: See triage assessment. jl7 11:59 Reassessment: Patient appears in no apparent distress at this time. Patient and/or jl7 family updated on plan of care and expected duration. Pain level reassessed. Patient is alert, oriented x 3, equal unlabored respirations, skin warm/dry/pink. Patient states feeling better. Patient states symptoms have improved. 13:00 Reassessment: Patient appears in no apparent distress at this time. No changes from jl7 previously documented assessment. Patient and/or family updated on plan of care and expected duration. Pain level reassessed. Patient is alert, oriented x 3, equal unlabored respirations, skin warm/dry/pink. Vital Signs: 11:05 BP 141 / 80; Pulse 97; Resp 17; Temp 99.3; Pulse Ox 100% ; Weight 77.11 kg; Height 5 jl7 ft. 3 in. (160.02 cm); Pain 7/10; 11:58 BP 130 / 66; Pulse 74; Resp 17; Pulse Ox 97% ; Pain 3/10; jl7 13:15 BP 118 / 67; Pulse 77; Resp 15; Pulse Ox 97% ; jl7 11:05 Body Mass Index 30.11 (77.11 kg, 160.02 cm) jl7 [place] Coma Score: 13:22 Eye Response: spontaneous(4). Verbal Response: oriented(5). Motor Response: obeys rn commands(6). Total: 15. ED Course: 10:51 Patient arrived in ED. ag5 10:52 Kalpesh Arce, RN is Primary Nurse. jl7 10:54 Antwan Mejia MD is Attending Physician. rn 11:07 Triage completed. jl7 11:12 Arm band placed on right wrist. jl7 11:15 Initial lab(s) drawn, by de, sent to lab. Inserted saline lock: 20 gauge in right jl7 antecubital area, using aseptic technique. Blood collected. 11:15 EKG done, by ED staff, reviewed by Antwan Mejia MD. jl7 11:23 CT Head Brain wo Cont In Process Unspecified. EDMS 11:34 XRAY Chest (1 view) In Process Unspecified. EDMS 11:38 Patient has correct armband on for positive identification. Placed in gown. Bed in low jl7 position. Call light in reach. Side rails up X 1. monitoring tech on. Pulse ox on. NIBP on. Warm blanket given. 11:39 Urine collected: clean catch specimen, clear. jl7 13:48 No provider procedures requiring assistance completed. IV discontinued, intact, jl7 bleeding controlled, No redness/swelling at site. Pressure dressing applied. 13:48 Patient maintains SpO2 saturation greater than 95% on room air. jl7 Administered Medications: 11:30 Drug: NS 0.9% 1000 ml Route: IV; Rate: 1000 ml; Site: right antecubital; jl7 12:30 Follow up: Response: No adverse reaction; IV Status: Completed infusion; IV Intake: jl7 1000ml 11:30 Drug: Demerol 25 mg Route: IVP; Site: right antecubital; jl7 12:00 Follow up: Response: No adverse reaction; Pain is decreased jl7 11:33 Drug: Decadron - Dexamethasone 10 mg Route: IVP; Site: right antecubital; jl7 12:00 Follow up: Response: No adverse reaction; Pain is decreased jl7 13:37 Drug: TORadol - Ketorolac 15 mg Route: IVP; Site: right antecubital; jl7 13:47 Follow up: Response: Medication administered at discharge. jl7 13:37 Not Given (Patient Refused): morphine 4 mg IVP once; RASS on ADMIN: Combtv4, Very jl7 Agttd3, Agttd2, Rstlss1, AlertClm0, Drwsy-1, Lt Sdtn-2, Mod Sdtn-3, Dp Sdtn-4, UnArsble-5 Intake: 12:30 IV: 1000ml; Total: 1000ml. jl7 Outcome: 13:23 Discharge ordered by . rn 13:48 Discharged to home ambulatory, with family. jl7 13:48 Condition: stable 13:48 Discharge instructions given to patient, Instructed on discharge instructions, follow up and referral plans. Demonstrated understanding of instructions, follow-up care. 13:48 Patient left the ED. jl7 Signatures: Dispatcher [employer] EDAntwan Powell MD MD rn Leal, Jahala, RN RN jl7 Livier Galan ag5
--- NOTE | 2020-06-18 13:24 | EDPHYS ---
Physician Documentation [facility] Name: Sowmya Juarez Age: 35 yrs Sex: Female : 1985 Arrival Date: 06/18/2020 Time: 10:51 Bed 13 Private MD: ED Physician Antwan Mejia HPI: 06/18 11:17 This 35 yrs old Female presents to ER via Ambulatory with complaints of Chest rn Pain, Headache > 24hrs Old. 11:23 The patient complains of pain to the top of head and forehead. The patient describes rn the headache as aching. Onset: The symptoms/episode began/occurred 3 day(s) ago. Severity of symptoms: At its worst the pain was moderate, in the emergency department the pain is unchanged. The symptoms are alleviated by nothing. the symptoms are aggravated by nothing. The patient has experienced similar episodes in the past. Reports headache for 3 days, has migraines but this one slightly different, feels pressure on left side, no vomiting, no injury, no fever, no neck pain/stiffness. Reports started to have brief episodes of chest pain today, sharp, lasts for seconds, no came in for eval. Reports came in more for headache but would like chest pain evaluated. Does not feel ill, no fever. . 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 - Irregular menses Historical: - Allergies: 11:12 Compazine; 11:12 Demerol; 11:12 Prochlorperazine; 11:12 prochlorperazine Edisylate; 11:12 Prochlorperazine Maleate; - Home Meds: 11:12 pantoprazole 40 mg oral TbEC 1 tab once daily [Active]; topiramate 50 mg oral CSpX 1 jl7 cap once daily [Active]; atorvastatin 20 mg oral tab 1 tab once daily [Active]; lisinopril 20 mg Oral tab 1 tab once daily [Active]; Prozac 20 mg Oral cap 1 cap once daily [Active]; Lamictal 100 mg Oral tab 1 tab once daily [Active]; Zyrtec Oral [Active]; Flonase Nasal [Active]; Albuterol Inhl [Active]; Symbicort inhalation inhalation [Active]; Risperdal 3 mg Oral tab 1 tab nightly [Active]; trazodone 100 mg Oral tab nightly [Active]; Stelara subcutaneous every 8 weeks [Active]; Imitrex 25 mg Oral tab 1 tab [Active]; Zofran (as hydrochloride) 4 mg Oral tab as needed [Active]; Phenergan Oral 25 mg as needed [Active]; - PMHx: 11:12 Bipolar disorder; Crohn's; Hypertension; Migraines; jl7 - PSHx: 11:12 Tubal ligation; ; Appendectomy; Cholecystectomy; jl7 - Immunization history:: Adult Immunizations up to date. - Social history:: Smoking status: Patient denies any tobacco usage or history of. - Family history:: not pertinent. - Hospitalizations: : No recent hospitalization is reported. ROS: 11:23 Constitutional: Negative for fever, chills, and weight loss, Eyes: Negative for injury, rn pain, redness, and discharge, Neck: Negative for injury, pain, and swelling, Cardiovascular: Negative for palpitations, and edema, Respiratory: Negative for shortness of breath, cough, wheezing, and pleuritic chest pain, Abdomen/GI: Negative for abdominal pain, nausea, vomiting, diarrhea, and constipation, MS/Extremity: Negative for injury and deformity, Skin: Negative for injury, rash, and discoloration, Neuro: Negative for weakness, numbness, tingling, and seizure. Exam: 11:23 Constitutional: This is a well developed, well nourished patient who is awake, alert, rn and in no acute distress. Head/Face: Normocephalic, atraumatic. Eyes: Pupils equal round and reactive to light, extra-ocular motions intact. Lids and lashes normal. Conjunctiva and sclera are non-icteric and not injected. Cornea within normal limits. Periorbital areas with no swelling, redness, or edema. Neck: Trachea midline, no masses palpated, and no cervical lymphadenopathy. Supple, full range of motion without nuchal rigidity, or vertebral point tenderness. No Meningismus. Cardiovascular: Regular rate and rhythm. No pulse deficits. Respiratory: No increased work of breathing, no retractions or nasal flaring. Abdomen/GI: soft, non-tender Skin: Warm, dry MS/ Extremity: Pulses equal, no cyanosis. Neurovascular intact. Full, normal range of motion. Equal circumference. Neuro: Awake and alert, GCS 15, oriented to person, place, time, and situation. Cranial nerves II-XII grossly intact. Motor strength 5/5 in all extremities. Sensory grossly intact. Cerebellar exam normal. Normal gait. Vital Signs: 11:05 BP 141 / 80; Pulse 97; Resp 17; Temp 99.3; Pulse Ox 100% ; Weight 77.11 kg; Height 5 jl7 ft. 3 in. (160.02 cm); Pain 7/10; 11:58 BP 130 / 66; Pulse 74; Resp 17; Pulse Ox 97% ; Pain 3/10; jl7 13:15 BP 118 / 67; Pulse 77; Resp 15; Pulse Ox 97% ; jl7 11:05 Body Mass Index 30.11 (77.11 kg, 160.02 cm) jl7 [place] Coma Score: 13:22 Eye Response: spontaneous(4). Verbal Response: oriented(5). Motor Response: obeys rn commands(6). Total: 15. MDM: 10:54 Patient medically screened. rn 13:22 Differential diagnosis: hypertensive headache, migraine, tension headache, vasomotor rn headache. Data reviewed: vital signs, nurses notes, lab test result(s), EKG, radiologic studies, CT scan, plain films, and as a result, I will discharge patient. Counseling: I had a detailed discussion with the patient and/or guardian regarding: the historical points, exam findings, and any diagnostic results supporting the discharge/admit diagnosis, lab results, radiology results, the need for outpatient follow up, to return to the emergency department if symptoms worsen or persist or if there are any questions or concerns that arise at home. Special discussion: I discussed with the patient/guardian in detail that at this point there is no indication for admission to the hospital. It is understood, however, that if the symptoms persist or worsen the patient needs to return immediately for re-evaluation. 06/18 11:00 Order name: CBC with Diff; Complete Time: 12:17 rn 06/18 11:00 Order name: Basic Metabolic Panel; Complete Time: 12:17 rn 06/18 11:00 Order name: Urine Microscopic Only; Complete Time: 12:17 rn 06/18 11:00 Order name: Troponin (emerg Dept Use Only); Complete Time: 12: rn 06/18 11:00 Order name: D-Dimer; Complete Time: 12:17 rn 06/18 11:46 Order name: Urine Dipstick--Ancillary (enter results); Complete Time: 12:17 bd 06/18 11:00 Order name: CT Head Brain wo Cont; Complete Time: 12:17 rn 06/18 11:00 Order name: XRAY Chest (1 view); Complete Time: 12:17 rn 06/18 11:46 Order name: Urine --Ancillary (enter results); Complete Time: 12:17 bd 06/18 11:00 Order name: IV Start; Complete Time: 11:14 rn 06/18 11:00 Order name: Urine Test (obtain specimen); Complete Time: 11:38 rn 06/18 11:00 Order name: Urine Dipstick-Ancillary (obtain specimen); Complete Time: 11:38 rn 06/18 11:00 Order name: EKG; Complete Time: 11:01 rn 06/18 11:00 Order name: EKG - Nurse/Tech; Complete Time: 11:14 rn Administered Medications: 11:30 Drug: NS 0.9% 1000 ml Route: IV; Rate: 1000 ml; Site: right antecubital; jl7 12:30 Follow up: Response: No adverse reaction; IV Status: Completed infusion; IV Intake: jl7 1000ml 11:30 Drug: Demerol 25 mg Route: IVP; Site: right antecubital; jl7 12:00 Follow up: Response: No adverse reaction; Pain is decreased jl7 11:33 Drug: Decadron - Dexamethasone 10 mg Route: IVP; Site: right antecubital; jl7 12:00 Follow up: Response: No adverse reaction; Pain is decreased jl7 13:37 Drug: TORadol - Ketorolac 15 mg Route: IVP; Site: right antecubital; jl7 13:47 Follow up: Response: Medication administered at discharge. jl7 13:37 Not Given (Patient Refused): morphine 4 mg IVP once; RASS on ADMIN: Combtv4, Very jl7 Agttd3, Agttd2, Rstlss1, AlertClm0, Drwsy-1, Lt Sdtn-2, Mod Sdtn-3, Dp Sdtn-4, UnArsble-5 Disposition: 10/13/20 13:23 Discharged to Home. Impression: Chest pain, unspecified, Migraine. - Condition is Stable. - Discharge Instructions: Nonspecific Chest Pain, Migraine Headache. - Medication Reconciliation Form, Thank You Letter, Antibiotic Education, Prescription Opioid Use form. - Follow up: Private Physician; When: As needed; Reason: Recheck today's complaints, Re-evaluation by your physician. - Problem is new. - Symptoms have improved. Signatures: Dispatcher [employer] EDMS Antwan Mejia MD MD rn Leal, Jahala, RN RN jl7 Corrections: (The following items were deleted from the chart) 13:48 13:23 06/18/2020 13:23 Discharged to Home. Impression: Chest pain, unspecified; jl7 Migraine. Condition is Stable. Forms are Medication Reconciliation Form, Thank You Letter, Antibiotic Education, Prescription Opioid Use. Follow up: Private Physician; When: As needed; Reason: Recheck today's complaints, Re-evaluation by your physician. Problem is new. Symptoms have improved. rn
[2020-06-18] MEDS ORDERED: KETOROLAC 30 MG/ML INJ ONE (13:47)
[2020-06-18 14:24] VITALS: TEMP 99.3
[2020-06-18 14:26] VITALS: O2SAT 97
[2020-06-18 14:27] VITALS: BP 118/67
--- NOTE | 2020-06-20 07:09 | EKG ---
Test Date: 2020-06-18 Test Time: 11:01:11 Staff Development Coordinator Rn: ASHLEY MEASUREMENT RESULTS: Intervals: Rate: 90 WV: 176 QRSD: 88 QT: 362 QTc: 442 [place]: P: 50 WV: 176 QRS: 24 T: 46 INTERPRETIVE STATEMENTS: Normal sinus rhythm Normal ECG Compared to ECG 03/09/2009 22:38:57 Prolonged QT interval no longer present Electronically Signed On 06-20-20 07:04:21 CDT by Shola Sanchez
== END 2020-06-18 13:48 | disposition home or self-care (01) ==
LOC: ER 10:48
DX: G43.909 Migraine, unspecified, not intractable, without status migrainosus (principal); Z88.1 Allergy status to other antibiotic agents; Z88.5 Allergy status to narcotic agent
CPT/HCPCS: 96361; 93005; 85025; 80048; 36415; 81025; 85379; 84484; 70450; 71045; 96375; 96374; 99285; J1100; J2175; J7030; 81003; 81015

== ENCOUNTER 2020-10-19 11:41 | Emergency (ER) | payer OTHER ==
--- NOTE | 2020-10-19 13:00 | RAD REPORT ---
EXAM DESCRIPTION: CTAbdomen Pelvis W Contrast - 10/19/2020 12:46 pm CLINICAL HISTORY: Abdominal pain. ABD PAIN COMPARISON: Abdomen Pelvis W Contrast dated 05/24/2019; Abdomen Pelvis W Contrast dated 04/10/2019; Abdomen Pelvis W Contrast dated 12/18/2017; CT ABD PELVIS W CONTRAST dated 09/05/2015 TECHNIQUE: Biphasic CT imaging of the abdomen and pelvis was performed with 100 ml non-ionic IV cont rast. All CT scans are performed using dose optimization technique as appropriate and may include automated exposure control or mA/KV adjustment according to patient size. FINDINGS: The lung bases are clear.Cholecystectomy. The liver, spleen, pancreas, adrenal glands and kidneys are within normal limits. No bowel obstruction, free air, free fluid or abscess. Appendectomy. No evidence of significant lym phadenopathy. No suspicious bony findings. IMPRESSION: No acute intra-abdominal or pelvic finding.
[2020-10-19 13:02] LABS: ALT/SGPT 15 U/L (12-78); AST/SGOT 10 U/L (15-37); Albumin 4.1 g/dL (3.4-5.0); Alkaline Phosphatase 58 U/L (45-117); BUN Blood Urea Nitrogen 8 mg/dL (7-18); Bicarbonate 26 mmol/L (21-32); Bilirubin Direct 0.1 mg/dL (0-0.2); Bilirubin Total 0.6 mg/dL (0.2-1.0); Glucose Level 92 mg/dL (74-106); Lipase 96 U/L (73-393); Potassium 3.5 mmol/L (3.5-5.1); Protein, Total 8.1 g/dL (6.4-8.2); Sodium Level 140 mmol/L (136-145)
[2020-10-19 13:07] LABS: Absolute Lymphocytes (CBC) 1.5 K/uL (0.7-4.9); Basophils % 0.5 % (0-1.3); Hematocrit 37.4 % (36.0-45.0); Lymphocytes % 16.6 % (15.3-44.8); MPV 7.1 fL (7.6-11.3); RBC Red Blood Cell Count 4.36 M/uL (3.86-4.86)
[2020-10-19] MEDS ORDERED: MORPHINE 4 MG/ML SYR ONE ×2 (13:11→14:03)
[2020-10-19] MEDS ORDERED: NA CHLORIDE 0.9% 1,000 ML ONE (13:12)
[2020-10-19] MEDS ORDERED: ONDANSETRON 4 MG/2 ML VIAL ONE ×2 (13:12→14:03)
--- NOTE | 2020-10-19 13:27 | ER ---
Nurse's Notes [facility] Name: Sowmya Juarez Age: 35 yrs Sex: Female : 1985 Arrival Date: 10/19/2020 Time: 11:43 Bed 20 Private MD: Diagnosis: Upper abdominal pain, unspecified Presentation: 10/19 12:00 Chief complaint: Upper abdominal pain x 8 days, bright blood in stool x 2 days. Also hb c/o N/V, partially relieved by Zofran and Phenergan. Coronavirus screen: Client presents with at least one sign or symptom that may indicate coronavirus-19. Standard/surgical mask placed on the client. Provider contacted for isolation considerations. Ebola Screen: No symptoms or risks identified at this time. Initial Sepsis Screen: Does the patient meet any 2 criteria? No. Patient's initial sepsis screen is negative. Does the patient have a suspected source of infection? No. Patient's initial sepsis screen is negative. Risk Assessment: Do you want to hurt yourself or someone else? Patient reports no desire to harm self or others. Onset of symptoms was October 12, 2020. 12:00 Method Of Arrival: Ambulatory hb 12:00 Acuity: KALYN 3 hb Triage Assessment: 12:40 General: Appears in no apparent distress. Behavior is calm. Pain:. GI: No deficits mc3 noted. Historical: - Allergies: 12:03 Compazine; hb 12:03 Demerol; hb 12:03 Prochlorperazine; hb 12:03 prochlorperazine Edisylate; hb 12:03 Prochlorperazine Maleate; hb - PMHx: 12:03 Crohn's; Bipolar disorder; Hypertension; Migraines; hb - PSHx: 12:03 Tubal ligation; Appendectomy; ; Cholecystectomy; hb - Immunization history:: Adult Immunizations up to date. - Social history:: Smoking status: Patient denies any tobacco usage or history of. Screenin:40 Abuse screen: Denies threats or abuse. Nutritional screening: No deficits noted. mc3 Tuberculosis screening: No symptoms or risk factors identified. Fall Risk None identified. Assessment: 12:42 GI: Abdomen is tender to palpation. mc3 Vital Signs: 12:00 BP 177 / 88; Pulse 94; Resp 16; Temp 97.2; Pulse Ox 97% on R/A; Weight 72.57 kg; Height hb 5 ft. 2 in. (157.48 cm); Pain 7/10; 12:00 Body Mass Index 29.26 (72.57 kg, 157.48 cm) hb ED Course: 11:43 Patient arrived in ED. ds1 11:58 Keiko Mendoza FNP-C is [facility]. kb 11:58 Todd Peña MD is Attending Physician. kb 12:02 Triage completed. hb 12:03 Arm band placed on. hb 12:36 Bed in low position. Call light in reach. Side rails up X 1. Warm blanket given. Verbal jp3 reassurance given. Pulse ox on. NIBP on. 12:36 Initial lab(s) drawn, by me, sent to lab. Inserted saline lock: 20 gauge in right jp3 antecubital area, using aseptic technique. Blood collected. Patient maintains SpO2 saturation greater than 95% on room air. 12:41 IV 3 12:44 Basic Metabolic Panel Sent. mc3 12:44 CBC with Diff Sent. mc3 12:44 Hepatic Function Sent. mc3 12:45 Lipase Sent. mc3 12:46 CT Abd/Pelvis - IV Contrast Only In Process Unspecified. EDMS Administered Medications: 13:04 Drug: Zofran (Ondansetron) 4 mg Route: IVP; Site: right antecubital; 3 13:04 Drug: NS 0.9% 1000 ml Route: IV; Rate: 1000 ml; Site: right antecubital; 3 13:05 Drug: morphine 4 mg {Note: RASS 0 Vital signs WNL.} Route: IVP; Site: right antecubital;3 Outcome: 13:26 Discharge ordered by . kb 14:09 Patient left the ED. 3 Signatures: Dispatcher [employer] EDMS Keiko Mendoza FNP-C FNP-Ckb [place], Demi ds1 Marley Abreu, RN RN Aryan Tran jp3 Nehal Masters RN RN mc3
--- NOTE | 2020-10-19 13:28 | EDPHYS ---
Physician Documentation [facility] Name: Sowmya Juarez Age: 35 yrs Sex: Female : 1985 Arrival Date: 10/19/2020 Time: 11:43 Bed 20 Private MD: NATHALIE Physician Todd Peña HPI: 10/19 12:33 This 35 yrs old Female presents to ER via Ambulatory with complaints of kb Abdominal Pain, Vomiting. 12:33 The patient presents with abdominal pain in the upper abdomen. Onset: The kb symptoms/episode began/occurred 8 day(s) ago. The symptoms do not radiate. Associated signs and symptoms: Pertinent positives: nausea and vomiting, Pertinent negatives: fever. The symptoms are described as constant. Modifying factors: The symptoms are alleviated by nothing, the symptoms are aggravated by nothing. Severity of pain: At its worst the pain was moderate in the emergency department the pain is unchanged. The patient has not experienced similar symptoms in the past. The patient has not recently seen a physician. 12:34 Pt reports upper abd pain, nausea and vomiting for 8 days. Was seen by Dr New dillard yesterday and he ordered labs and a CT. Labs completed yesterday and were normal, but CT was scheduled for the and she can't wait that long. Historical: - Allergies: 12:03 Compazine; hb 12:03 Demerol; hb 12:03 Prochlorperazine; hb 12:03 prochlorperazine Edisylate; hb 12:03 Prochlorperazine Maleate; hb - PMHx: 12:03 Crohn's; Bipolar disorder; Hypertension; Migraines; hb - PSHx: 12:03 Tubal ligation; Appendectomy; ; Cholecystectomy; hb - Immunization history:: Adult Immunizations up to date. - Social history:: Smoking status: Patient denies any tobacco usage or history of. ROS: 12:32 Constitutional: Negative for fever, chills, and weight loss, Cardiovascular: Negative kb for chest pain, palpitations, and edema, Respiratory: Negative for shortness of breath, cough, wheezing, and pleuritic chest pain, MS/Extremity: Negative for injury and deformity, Skin: Negative for injury, rash, and discoloration, Neuro: Negative for headache, weakness, numbness, tingling, and seizure. 12:32 Abdomen/GI: Positive for abdominal pain, nausea and vomiting, Negative for diarrhea, constipation. Exam: 12:32 Constitutional: This is a well developed, well nourished patient who is awake, alert, kb and in no acute distress. Head/Face: Normocephalic, atraumatic. Chest/axilla: Normal chest wall appearance and motion. Nontender with no deformity. No lesions are appreciated. Cardiovascular: Regular rate and rhythm with a normal S1 and S2. No gallops, murmurs, or rubs. Normal PMI, no JVD. No pulse deficits. Respiratory: Lungs have equal breath sounds bilaterally, clear to auscultation and percussion. No rales, rhonchi or wheezes noted. No increased work of breathing, no retractions or nasal flaring. Skin: Warm, dry with normal turgor. Normal color with no rashes, no lesions, and no evidence of cellulitis. MS/ Extremity: Pulses equal, no cyanosis. Neurovascular intact. Full, normal range of motion. Neuro: Awake and alert, GCS 15, oriented to person, place, time, and situation. Cranial nerves II-XII grossly intact. Motor strength 5/5 in all extremities. Sensory grossly intact. Cerebellar exam normal. Normal gait. 12:32 Abdomen/GI: Inspection: abdomen appears normal, Bowel sounds: normal, in all quadrants, Palpation: soft, in all quadrants, mild abdominal tenderness, in the left upper quadrant, moderate abdominal tenderness, in the right upper quadrant. Vital Signs: 12:00 BP 177 / 88; Pulse 94; Resp 16; Temp 97.2; Pulse Ox 97% on R/A; Weight 72.57 kg; Height hb 5 ft. 2 in. (157.48 cm); Pain 7/10; 12:00 Body Mass Index 29.26 (72.57 kg, 157.48 cm) hb MDM: 11:58 Patient medically screened. kb 12:32 Data reviewed: vital signs, nurses notes. Data interpreted: Pulse oximetry: on room air kb is 97 %. Interpretation: normal. 13:26 Counseling: I had a detailed discussion with the patient and/or guardian regarding: the kb historical points, exam findings, and any diagnostic results supporting the discharge/admit diagnosis, lab results, radiology results, the need for outpatient follow up, a family practitioner, to return to the emergency department if symptoms worsen or persist or if there are any questions or concerns that arise at home. 10/19 11:59 Order name: Basic Metabolic Panel; Complete Time: 13:03 kb 10/19 11:59 Order name: CBC with Diff; Complete Time: 13:18 kb 10/19 11:59 Order name: Hepatic Function; Complete Time: 13:03 kb 10/19 11:59 Order name: Lipase; Complete Time: 13:03 kb 10/19 12:17 Order name: CT Abd/Pelvis - IV Contrast Only; Complete Time: 13:03 kb 10/19 11:59 Order name: IV Saline Lock; Complete Time: 12:37 kb 10/19 11:59 Order name: Labs collected and sent; Complete Time: 12:37 kb Administered Medications: 13:04 Drug: Zofran (Ondansetron) 4 mg Route: IVP; Site: right antecubital; 3 13:04 Drug: NS 0.9% 1000 ml Route: IV; Rate: 1000 ml; Site: right antecubital; 3 13:05 Drug: morphine 4 mg {Note: RASS 0 Vital signs WNL.} Route: IVP; Site: right antecubital;3 Disposition: 10/19/20 13:26 Discharged to Home. Impression: Upper abdominal pain, unspecified. - Condition is Stable. - Discharge Instructions: Abdominal Pain, Adult, [id number]. - Prescriptions for Bentyl 20 mg Oral Tablet - take 1 tablet by ORAL route every 6 hours As needed; 20 tablet. Zofran 4 mg Oral Tablet - take 1 tablet by ORAL route every 6 hours As needed; 20 tablet. - Medication Reconciliation Form, Thank You Letter, Antibiotic Education, Prescription Opioid Use, Work release form form. - Follow up: Emergency Department; When: As needed; Reason: Worsening of condition. Follow up: Private Physician; When: 2 - 3 days; Reason: Recheck today's complaints, Continuance of care, Re-evaluation by your physician. Addendum: 10/20/2020 14:45 Co-signature as Attending Physician, Todd Peña MD I agree with the assessment and c [place] plan of care. Signatures: Dispatcher [employer] Keiko Leger, MICAH-C MICAH-Ckb Todd Peña MD MD cha Baxter, Heather, RN RN Nehal Masters RN RN mc3 Corrections: (The following items were deleted from the chart) 10/19 13:27 13:26 10/19/2020 13:26 Discharged to Home. Impression: Acute upper respiratory kb infection, unspecified. Condition is Stable. Forms are Medication Reconciliation Form, Thank You Letter, Antibiotic Education, Prescription Opioid Use. Follow up: Emergency Department; When: As needed; Reason: Worsening of condition. Follow up: Private Physician; When: 2 - 3 days; Reason: Recheck today's complaints, Continuance of care, Re-evaluation by your physician. kb 14:09 13:27 10/19/2020 13:26 Discharged to Home. Impression: Upper abdominal pain, mc3 unspecified. Condition is Stable. Forms are Medication Reconciliation Form, Thank You Letter, Antibiotic Education, Prescription Opioid Use. Follow up: Emergency Department; When: As needed; Reason: Worsening of condition. Follow up: Private Physician; When: 2 - 3 days; Reason: Recheck today's complaints, Continuance of care, Re-evaluation by your physician. kb
[2020-10-19 14:13] VITALS: BP 177/88; TEMP 97.2; O2SAT 97
== END 2020-10-19 14:09 | disposition home or self-care (01) ==
LOC: ER 11:41
DX: R10.10 Upper abdominal pain, unspecified (principal); R11.2 Nausea with vomiting, unspecified; I10 Essential (primary) hypertension; Z88.1 Allergy status to other antibiotic agents; Z88.5 Allergy status to narcotic agent; Z88.8 Allergy status to other drugs, medicaments and biological substances
CPT/HCPCS: 85025; 80048; 36415; 80076; 83690; 74177; 96375; 96374; 99284; Q9967; J7030; J2405 ×2

== ENCOUNTER 2021-07-31 15:01 | Emergency (ER) | payer OTHER ==
--- OUTSIDE RECORDS SUMMARY | 2021-07-31 15:02 | XMS REPORT | Continuity of Care Document ---
:1985 Author Organization [facility] t Address [address] [place] [address] Care Team Providers Name Role Phone Amadou HAIDER Primary Care Physician Unavailable FISH Attending Clinician Unavailable Samir BURKETT Attending Clinician Doctor Unassigned, Name Attending Clinician Unavailable Omer GUTIERRES Attending Clinician Unavailable Wai BURKETT, A Attending Clinician Ronald OBRIEN Attending Clinician Brayden BURKETT Attending Clinician aWi BURKETT, Karli Admitting Clinician Brayden BURKETT Admitting Clinician Payers Payer Name Policy Type Policy Number Effective Date Expiration Date S [facility] MEDICARE PART A [id number] 2014 \T\ B 00:00:00 MEDICAID OF [place] [id number] 2014 00:00:00 Problems Condition Condition Condition Status Onset Resolution Last Treating Co mments Source Name Details Category Date Date Treatment Clinician Date Allergic Allergic Disease Active Unive rs reaction, reaction, 6-25 ity of initial initial 00:00: [place] encounter encounter 00 Medi abhishek Branch Post-opera Post-opera Disease Active U nivers tive state tive state 6- it y of 00:00: [place] 00 Medical Branch S/P S/P Disease Active Univers laparoscop laparoscop 6- it y of ic ic 00:00: [place] assisted assisted 00 Medica l vaginal vaginal Branch hysterecto hysterecto my ([facility]) my ([facility]) Crohn Crohn Disease Active Univers disease disease 05-11 ity of 00:00: [place] [facility] Obesity Obesity Disease Active Univers (BMI (BMI - ity of 30-39.9) 30-39.9) 00:00: [place] [facility] Bipolar I Bipolar I Disease Active Overview: Univers disorder, disorder, 7-11 Formattin i ty of most most 00:00: g of this [place] recent recent 00 note Medical episode episode might be Branch depressed depressed different from the original. 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 Utility Allergies, Adverse Reactions, Alerts Allergy Allergy Status Severity Reaction(s) Onset Inactive Treating Comm ents Source Name Type Date Date Clinician Prochlor Propensi Active Anaphylaxis U nivers perazine ty to 6-23 ity of adverse 00:00: [place] reaction Medical s Branch PROCHLOR DRUG Active Anaphylaxis Uni vers PERAZINE INGREDI 6-23 ity of 00:00: [place] 00 Medical Branch PROCHLOR DRUG Active Anaphylaxis Uni vers PERAZINE INGREDI 7-10 ity of EDISYLAT 00:00: [place] E 00 Medical Branch Prochlor Propensi Active Anaphylaxis U nivers perazine ty to 7-10 ity of Edisylat adverse 00:00: [place] e reaction 00 Medical s Branch Social History Social Habit Start Date Stop Date Quantity Comments Source History of tobacco Cigarette Smoker University of use [facility] Exposure to Not sure University of SARS-CoV-2 (event) [facility] Branch History [facility] o f Alcohol Std Drinks [facility] History [facility] o f Alcohol Binge [facility] al Branch Alcohol intake 2021-07-22 2021-07-22 Current drinker Unive rsity of 00:00:00 00:00:00 of alcohol [facility] (finding) Branch Cigarettes smoked 2018-05-11 2018-05-11 Univers ity of current (pack per 00:00:00 00:00:00 [facility] ) - Reported Branch Cigarette 2018-05-11 2018-05-11 University of pack-years 00:00:00 00:00:00 [facility] Tobacco use and 2018-05-11 2018-05-11 Never used Universit y of exposure 00:00:00 00:00:00 [facility] Alcohol Comment 2018-05-11 2018-05-11 Occasional Universit y of 00:00:00 00:00:00 [facility] Sex Assigned At [birth year] Universit y of 00:00:00 00:00:00 [facility] Smoking Status Start Date Stop Date Source Former smoker 2018-05-11 00:00:00 2018-05-11 00:00:00 Universi ty of [facility] Medications Ordered Filled Start Stop Current Ordering Indication Dosage Frequency Signature Comments Components Source Medication Medication Date Date Medication? Clinician (SIG) Name Name risperiDONE 2020-09- 3mg Take 3 mg Univers (RISPERDAL) -16 16 by mouth ity of 3 mg tablet 14:07: 00:00 at [place] 54 :00 bedtime. Medical Branch ondansetron 2020-09 Yes [id number] 4mg Take 1 Univers (ZOFRAN 0-15 tablet by ity of ODT) 4 mg 00:00: mouth [place] disintegrat 00 every 8 Medic al ing tablet (eight) Branch hours as needed for Nausea and Vomiting (N/V). cetirizine Yes [id number] 10mg Take 1 U nivers 10 mg 8-06 tablet by ity of tablet 00:00: mouth 2 [place] 00 (two) Medical times Branch daily. lithium 2020- TAKE TWO Unive rs carbonate 7-29 07-22 (2) ity of 300 mg 00:00: 00:00 CAPSU[place](S[place] capsule 00 :00 BY MOUTH Medical EVERY Branch MORNING AND THREE (3) AT BEDTIME. atorvastati Yes TAKE 1 Univ ers n 20 mg 7-24 TABLET BY ity of tablet 00:00: MOUTH [place] 00 EVERY DAY Medical Branch DIRECTED albuterol Yes [id number] 2{puff} Inhale 2 Univers 90 6-25 Puffs ity of mcg/actuati 00:00: every 6 Jeth[place] as on inhaler 00 (six) Medical hours as Branch needed for Wheezing or Shortness of Breath. famotidine Yes [id number] 40mg Take 1 Univers (PEPCID) 40 6-23 tablet by ity of mg tablet 00:00: mouth [place] 00 daily. Medical Branch dicyclomine Yes 10mg Take 10 mg Univers (BENTYL) 10 6-19 by mouth 4 it y of mg capsule 13:06: (four) [place] 49 times Medical daily. Branch docusate Yes [id number] 100mg Take 1 U nivers 100 mg 6-19 capsule by ity of capsule 00:00: mouth 2 [place] 00 (two) Medical times Branch daily as needed for Constipati on. cyclobenzap Yes TAKE 1 Univ ers rine 10 mg 5-06 TABLET BY ity of tablet 00:00: MOUTH AT [place] [id number] BEDTIME Medical DO NOT Branch DRIVE WITH MUSCLE RELAXER meloxicam 2020- No 15mg Take 15 mg U nivers 15 mg 5-06 11-16 by mouth ity of tablet 00:00: 00:00 daily. [place] 00 : Medical Branch ondansetron Yes [id number] 4mg Take 1 Univers 4 mg 1-23 tablet by ity of disintegrat 00:00: mouth [place] ing tablet 00 every 8 Medica l (eight) Branch hours as needed for Nausea and Vomiting (N/V). acetaminoph 2019-09 Yes 500mg Take 500 U nivers en 500 mg 2-28 mg by ity of tablet 00:00: mouth. Medical Branch traZODone 2019-09 Yes TAKE ONE Univ ers 100 mg 1-12 (1) ity of tablet 00:00: TABLET(S) 00 BY MOUTH Medical AT BEDTIME Branch NEEDED. pantoprazol 2019-09 Yes 40mg Take 40 mg Univers e 40 mg EC 1-07 by mouth ity o f tablet 00:00: daily. Medical Branch SUMAtriptan 2019-09 Yes PLEASE SEE Univers 25 mg 1-01 ATTACHED ity of tablet 00:00: FOR DETAILED Medical DIRECTIONS Branch lamoTRIgine 2019-09 Yes TAKE TWO Un yesenia 100 mg 0-28 (2) ity of tablet 00:00: TABLET(S) 00 BY MOUTH Medical EVERY Branch MORNING. topiramate 2019-09 No TAKE 1 Univ ers 50 mg 0-26 11-16 TABLET (50 ity of tablet 00:00: 00:00 MG) BY [place] 00 :[address] Medical 1 TIMES Branch PER DAY VENTOLIN 2020-0 Yes INHALE ONE Uni vers HFA 90 06-04 (1) ity of mcg/actuati 00:00: PUFF(S) BY [place] on inhaler 00 MOUTH Medical EVERY FOUR Branch HOURS. fluticasone 2020-0 Yes INSTILL Uni vers propionate 06-04 ONE (1) ity of 50 00:00: SPRAY(S) [place] mcg/actuati 00 INTO EACH Med ical on nasal NOSTRIL Branch spray TWICE A DAY. proMETHazin 2020-0 Yes [id number] 25mg Take 1 Univers e 25 mg 6-23 tablet by ity of tablet 00:00: mouth [place] 00 every 6 Medical (six) Branch hours as needed for Nausea and Vomiting (N/V). hydrOXYzine 2018-09 Yes Univer s 25 mg 2-06 ity of capsule 00:00: [place] [address] [facility] lisinopril 2018-09 Univer s 20 mg 2-04 11-16 ity of tablet 00:00: 00:00 [place] 00 :00 Medical Branch STELARA 45 2018-09 Yes INJECT Unive rs mg/0.5 mL 1-26 45MG (1 ity of SC 00:00: SYRINGE) [place] injection 00 SUBCUTANEO Medi abhishek USLY EVERY Branch 8 WEEKS. Immunizations Ordered Filled Immunization Date Status Comments Sour e Immunization Name Name Influenza Virus 2020-06-23 Completed Universit y of Vaccine Quad .5 mL 00:00:00 [facility] 6+ MO Branch Influenza Virus 2019-08-06 Completed Universit y of Vaccine 00:00:00 [facility] Vital Signs Vital Name Observation Time Observation Value Comments Source Systolic blood 2021-07-22 19:33:00 131 mm[Hg] Univer sity of pressure [facility] Diastolic blood 2021-07-22 19:33:00 79 mm[Hg] Unive rsity of pressure [facility] Heart rate 2021-07-22 19:33:00 86 /min [facility] Body temperature 2021-07-22 19:33:00 37.06 [facility] 2021-07-22 19:33:00 160 cm [facility] Body weight 2021-07-22 19:33:00 76.658 kg [facility] BMI 2021-07-22 19:33:00 29.94 kg/m2 [facility] Procedures This patient has no known procedures. Encounters Start End Encounter Admission Attending Care Care Encounter Source Date/Time Date/Time Type Type Clinicians Facility Department ID 2021-07-22 2021-07-22 Outpatient R MARIUM SCHROEDER [facility] [id number] Univers 13:30:00 14:05:17 ity [facility] 2021-07-22 2021-07-22 Office Marium Schroeder [facility] [id number] [facility] 13:17:43 14:05:17 Visit TATYANA [id number] [facility] [id number] Jethrokarli jacobo [facility] [id number] [address] 2020-03-19 2020-03-19 Orders Doctor CASILLAS [id number] 00:00:00 00:00:00 Only Unassigned, DEXTER [id number] [place] [facility] [id number] 2020-02-28 2020-02-28 Transition Muna Tello [id number] 00:00:00 00:00:00 of Care Marley Castano [id number] [place] [id number] 2020-02-23 2020-02-27 [facility] Magalys Carreno [id number] 21:57:28 16:56:00 Encounter Michael Karli Quiles [id number] [place] [id number] 2020-01-31 2020-02-02 [facility] Annamaria Cardenas [facility] [id number] 13:56:16 12:50:00 Encounter Keegan Owen [id number] [place] [id number] [place] [id number] 2020-01-31 2020-01-31 Orders Doctor SONJA [id number] 00:00:00 00:00:00 Only Unassigned, DEXTER [id number] [place] [facility] [id number] Results This patient has no known results.
[2021-07-31] MEDS ORDERED: NA CHLORIDE 0.9% 1,000 ML ONE (15:10)
[2021-07-31] MEDS ORDERED: FAMOTIDINE 20 MG/2 ML VIAL IV ONE (15:10)
[2021-07-31] MEDS ORDERED: METHYLPREDNISOLONE 125 MG INJ ONE (15:10)
[2021-07-31] MEDS ORDERED: DIPHENHYDRAMINE 50 MG/ML VIAL ONE (15:10)
--- NOTE | 2021-07-31 17:30 | EDPHYS ---
Physician Documentation [facility] Name: Sowmya Juarez Age: 36 yrs Sex: Female : 1985 Arrival Date: 07/31/2021 Time: 15:03 Bed 16 Private MD: ED Physician Ronen Galeana HPI: 07/31 15:48 This 36 yrs old Female presents to ER via Ambulatory with complaints of Allergic kb Reaction. 15:48 The patient presents with hoarse voice, swelling of the lips, swelling of the tongue. kb Onset: The symptoms/episode began/occurred just prior to arrival. Associated signs and symptoms: Pertinent positives: swelling. Possible causes: The patient has no known obvious cause for the symptoms. At home the patient or guardian has treated the symptoms with EpiPen. Severity of symptoms: At their worst the symptoms were moderate in the emergency department the symptoms are unchanged. The patient has experienced similar episodes in the past. The patient has been recently seen by a physician:. Pt reports she started having an allergic reaction to an unknown substance. States she has been seeing an financial operations analyst, but they have been unable to determine the cause of the allergic reactions she has had. Reports itching and tightness to throat, swelling to lips and tongue. 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 Historical: - Allergies: 15:15 Compazine; vg1 15:15 Demerol; vg1 15:15 Prochlorperazine; vg1 15:15 prochlorperazine Edisylate; vg1 15:15 Prochlorperazine Maleate; vg1 - Home Meds: 15:15 Albuterol Inhl [Active]; vg1 - PMHx: 15:15 Bipolar disorder; Crohn's; Hypertension; Migraines; vg1 - PSHx: 15:15 None; vg1 - Immunization history:: Client reports having NOT received the Covid vaccine. - Social history:: Smoking status: Patient denies any tobacco usage or history of. ROS: 15:10 Constitutional: Negative for fever, chills, and weight loss. kb 15:10 ENT: Positive for tongue and lips swelling, throat itching and tight. 15:10 All other systems are negative. Exam: 15:10 Constitutional: This is a well developed, well nourished patient who is awake, alert, kb and in no acute distress. Head/Face: Normocephalic, atraumatic. Cardiovascular: Regular rate and rhythm with a normal S1 and S2. No gallops, murmurs, or rubs. No pulse deficits. Respiratory: Respirations even and unlabored. No increased work of breathing, no retractions or nasal flaring. Abdomen/GI: Soft, non-tender. No distention Skin: Warm, dry with normal turgor. Normal color. MS/ Extremity: Pulses equal, no cyanosis. Neurovascular intact. Full, normal range of motion. Neuro: Awake and alert, GCS 15, oriented to person, place, time, and situation. Moves all extremities. Normal gait. Psych: Awake, alert, with orientation to person, place and time. Behavior, mood, and affect are within normal limits. 15:10 ENT: Mouth: Lips: swelling, Tongue: is swollen. Vital Signs: 15:11 Pulse 128; Resp 26; Temp 99.5; Pulse Ox 100% ; Weight 74.84 kg; Height 5 ft. 3 in. vg1 (160.02 cm); Pain 0/10; 16:15 BP 116 / 71; Pulse 86; Resp 18; Pulse Ox 100% on R/A; aj1 17:32 BP 107 / 78; Pulse 82; Resp 18; Pulse Ox 99% on R/A; aj1 15:11 Body Mass Index 29.23 (74.84 kg, 160.02 cm) vg1 MDM: 15:07 Patient medically screened. kb 15:46 Data reviewed: vital signs, nurses notes. Data interpreted: Pulse oximetry: on room air kb is 100 %. Interpretation: normal. 15:46 ED course: Pt feeling much better. Resp even and unlabored. Swelling resolved. Pt does kb not feel itching/swelling in throat. 17:26 Counseling: I had a detailed discussion with the patient and/or guardian regarding: the kb historical points, exam findings, and any diagnostic results supporting the discharge/admit diagnosis, the need for outpatient follow up, a family practitioner, to return to the emergency department if symptoms worsen or persist or if there are any questions or concerns that arise at home. 07/31 15:29 Order name: IV Start; Complete Time: 15:33 kb Administered Medications: 15:20 Drug: NS 0.9% 1000 ml Route: IV; Rate: 1000 ml; Site: left antecubital; kb 15:20 Drug: Pepcid (famotidine) 20 mg Route: IVP; Site: left antecubital; kb 15:20 Drug: Benadryl (diphenhydrAMINE) 25 mg Route: IVP; Site: left antecubital; kb 15:20 Drug: SOLU-Medrol (methylPrednisoLONE) 125 mg Route: IVP; Site: left antecubital; kb Disposition Summary: 07/31/21 17:28 Discharge Ordered Location: Home kb Condition: Stable kb Diagnosis - angioedema kb Followup: kb - With: Emergency Department - When: As needed - Reason: Worsening of condition Followup: kb - With: Private Physician - When: 2 - 3 days - Reason: Recheck today's complaints, Continuance of care, Re-evaluation by your physician Discharge Instructions: - Discharge Summary Sheet kb - Angioedema, [id number] kb Forms: - Medication Reconciliation Form kb - Thank You Letter kb - Antibiotic Education kb - Prescription Opioid Use kb Prescriptions: - Pepcid 20 mg Oral Tablet - take 1 tablet by ORAL route every 12 hours for 5 days; 10 tablet; Refills: 0, kb Product Selection Permitted - Prednisone 20 mg Oral Tablet - take 1 tablet by ORAL route once daily for 5 days; 5 tablet; Refills: 0, kb Product Selection Permitted Signatures: Keiko Mendoza, KWABENA OBRIEN-Lina Veliz RN RN vg1 Corrections: (The following items were deleted from the chart) 15:46 15:45 Constitutional: This is a well developed, well nourished patient who is awake, kb alert, and in no acute distress. Head/Face: Normocephalic, atraumatic. Cardiovascular: Regular rate and rhythm with a normal S1 and S2. No gallops, murmurs, or rubs. No pulse deficits. Respiratory: Respirations even and unlabored. No increased work of breathing, no retractions or nasal flaring. Abdomen/GI: Soft, non-tender. No distention Skin: Warm, dry with normal turgor. Normal color. MS/ Extremity: Pulses equal, no cyanosis. Neurovascular intact. Full, normal range of motion. Neuro: Awake and alert, GCS 15, oriented to person, place, time, and situation. Moves all extremities. Normal gait. Psych: Awake, alert, with orientation to person, place and time. Behavior, mood, and affect are within normal limits. kb 15:46 15:45 ENT: Mouth: Lips: swelling, Tongue: is swollen, kb kb
--- NOTE | 2021-07-31 17:30 | ER ---
Nurse's Notes [facility] Name: Sowmya Juarez Age: 36 yrs Sex: Female : 1985 Arrival Date: 07/31/2021 Time: 15:03 Bed 16 Private MD: Diagnosis: angioedema Presentation: 07/31 15:11 Chief complaint: Patient states: Ate a 'lisa brownie and drank a orange mikala' around vg1 1400, at 1430 noticed swelling of tongue and difficulty breathing and took for dose of Epi Pen, states swelling went down but at 1445 tongue began to swell again and took second dose of Epi pen. States itchy throat. Denies NV. 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 Coronavirus screen: Vaccine status: Patient reports being unvaccinated. Client denies travel out of the [place] in the last 14 days. Ebola Screen: Patient negative for fever greater than or equal to 101.5 degrees Fahrenheit, and additional compatible Ebola Virus Disease symptoms. Onset: The symptoms/episode began/occurred suddenly. Anaphylaxis evaluation, tongue swelling. Initial Sepsis Screen: Does the patient meet any 2 criteria? RR > 20 per min. HR > 90 bpm. Yes Does the patient have a suspected source of infection? No. Patient's initial sepsis screen is negative. Risk Assessment: Do you want to hurt yourself or someone else? Patient reports no desire to harm self or others. Onset of symptoms was July 31, 2021. 15:11 Method Of Arrival: Ambulatory vg1 15:11 Acuity: KALYN 2 vg1 Triage Assessment: 15:15 General: Appears in no apparent distress. uncomfortable, Behavior is cooperative, vg1 anxious. Pain: Denies pain. Respiratory: Airway is patent Trachea midline Respiratory effort is even, labored, Respiratory pattern is tachypnea. Historical: - Allergies: 15:15 Compazine; vg1 15:15 Demerol; vg1 15:15 Prochlorperazine; vg1 15:15 prochlorperazine Edisylate; vg1 15:15 Prochlorperazine Maleate; vg1 - Home Meds: 15:15 Albuterol Inhl [Active]; vg1 - PMHx: 15:15 Bipolar disorder; Crohn's; Hypertension; Migraines; vg1 - PSHx: 15:15 None; vg1 - Immunization history:: Client reports having NOT received the Covid vaccine. - Social history:: Smoking status: Patient denies any tobacco usage or history of. Screenin:39 Abuse screen: Denies threats or abuse. Denies injuries from another. Nutritional aj1 screening: No deficits noted. Tuberculosis screening: No symptoms or risk factors identified. Fall Risk None identified. Assessment: 15:15 General: Appears in no apparent distress. comfortable, Behavior is calm, cooperative, aj1 appropriate for age. Pain: Denies pain. Neuro: Level of Consciousness is awake, alert, obeys commands, Oriented to person, place, time, situation. Cardiovascular: Patient's skin is warm and dry. Respiratory: Airway is patent Respiratory effort is even, unlabored, Respiratory pattern is regular, symmetrical, Breath sounds are clear bilaterally. GI: No signs and/or symptoms were reported involving the gastrointestinal system. : No signs and/or symptoms were reported regarding the genitourinary system. EENT: swelling of tongue and lips noted. Derm: No signs and/or symptoms reported regarding the dermatologic system. Skin is pink, warm \T\ dry. normal. Musculoskeletal: No signs and/or symptoms reported regarding the musculoskeletal system. Circulation, motion, and sensation intact. 15:25 Reassessment: Patient states that she feels much better than when she arrived. She does aj1 not feel like her face is swelling anymore. 16:19 Reassessment: Patient appears in no apparent distress at this time. No changes from aj1 previously documented assessment. Patient and/or family updated on plan of care and expected duration. Pain level reassessed. Patient is alert, oriented x 3, equal unlabored respirations, skin warm/dry/pink. 17:32 Reassessment: Patient appears in no apparent distress at this time. No changes from aj1 previously documented assessment. Patient and/or family updated on plan of care and expected duration. Pain level reassessed. Patient is alert, oriented x 3, equal unlabored respirations, skin warm/dry/pink. Patient states feeling better. Vital Signs: 15:11 Pulse 128; Resp 26; Temp 99.5; Pulse Ox 100% ; Weight 74.84 kg; Height 5 ft. 3 in. vg1 (160.02 cm); Pain 0/10; 16:15 BP 116 / 71; Pulse 86; Resp 18; Pulse Ox 100% on R/A; aj1 17:32 BP 107 / 78; Pulse 82; Resp 18; Pulse Ox 99% on R/A; aj1 15:11 Body Mass Index 29.23 (74.84 kg, 160.02 cm) vg1 ED Course: 15:03 Patient arrived in ED. mr 15:07 [facility]endo[facility]-C [facility] kb 15:07 Ronen Galeana MD is Attending Physician. kb 15:14 Margarette Carter, BHAVIK is Primary Nurse. 2 15:14 Inserted saline lock: 20 gauge in left antecubital area, using aseptic technique. 5 15:14 Patient has correct armband on for positive identification. Bed in low position. Call [facility] light in reach. Side rails up X 1. bus driver/monitor on. Pulse ox on. NIBP on. 15:15 Triage completed. vg1 15:15 Arm band placed on. vg1 17:39 No provider procedures requiring assistance completed. IV discontinued, intact, aj1 bleeding controlled, No redness/swelling at site. Pressure dressing applied. Administered Medications: 15:20 Drug: NS 0.9% 1000 ml Route: IV; Rate: 1000 ml; Site: left antecubital; kb 15:20 Drug: Pepcid (famotidine) 20 mg Route: IVP; Site: left antecubital; kb 15:20 Drug: Benadryl (diphenhydrAMINE) 25 mg Route: IVP; Site: left antecubital; kb 15:20 Drug: SOLU-Medrol (methylPrednisoLONE) 125 mg Route: IVP; Site: left antecubital; kb Outcome: 17:28 Discharge ordered by . kb 17:39 Discharged to home ambulatory. aj1 17:39 Condition: good 17:39 Discharge instructions given to patient, Instructed on discharge instructions, follow up and referral plans. medication usage, Demonstrated understanding of instructions, follow-up care, medications, Prescriptions given X 2. 17:40 Patient left the ED. aj1 Signatures: Keiko Mendoza FNP-C FNP-Sofya Hernadez RN RN [facility] Karen Gomez [place] Lina Johnson RN RN 1 Margarette Carter, RN RN sl2
[2021-07-31 17:58] VITALS: TEMP 99.5
[2021-07-31 18:01] VITALS: BP 107/78; O2SAT 99
== END 2021-07-31 17:40 | disposition home or self-care (01) ==
LOC: ER 15:01
DX: T78.3XXA Angioneurotic edema, initial encounter (principal); I10 Essential (primary) hypertension; Z88.5 Allergy status to narcotic agent; Z88.8 Allergy status to other drugs, medicaments and biological substances
CPT/HCPCS: 96374; 96375; 99284; J1200; J2930; J7030

== ENCOUNTER 2021-07-31 19:42 | Inpatient (IN) | payer OTHER ==
--- OUTSIDE RECORDS SUMMARY | 2021-07-31 19:45 | XMS REPORT | Continuity of Care Document ---
:1985 Author Organization [facility] t Address [address] [place] [address] Dr. [address] [place] [address] Care Team Providers Name Role Phone MELIZA Amadou Primary Care Physician Unavailable FISH Attending Clinician Unavailable Samir BURKETT Attending Clinician Doctor Unassigned, Name Attending Clinician Unavailable Omer GUTIERRES Attending Clinician Unavailable Wai BURKETT, A Attending Clinician Ronald OBRIEN Attending Clinician Brayden BURKETT Attending Clinician Wai BURKETT, Karli Admitting Clinician Brayden BURKETT Admitting Clinician Payers Payer Name Policy Type Policy Number Effective Date Expiration Date S [facility] [place] PART A [id number] 2014 \T\ B 00:00:00 [place]ID [place] [id number] 2014 00:00:00 Problems Condition Condition Condition Status Onset Resolution Last Treating Co mments Source Name Details Category Date Date Treatment Clinician Date Allergic Allergic Disease Active Unive rs reaction, reaction, 6-25 ity of initial initial 00:00: [place] encounter encounter 00 Medi abhishek Branch Post-opera Post-opera Disease Active U nivers tive state tive state 6- it y of 00:00: [place] 00 Medical Branch S/P S/P Disease Active Univers laparoscop laparoscop 6- it y of ic ic 00:00: [place] assisted assisted 00 Medica l vaginal vaginal Branch hysterecto hysterecto my ([facility]) my ([facility]) Crohn Crohn Disease Active Univers disease disease 05-11 ity of 00:00: [place] [facility] Obesity Obesity Disease Active Univers (BMI (BMI - ity of 30-39.9) 30-39.9) 00:00: [place] 00 Medical Branch Bipolar I Bipolar I Disease Active Overview: Univers disorder, disorder, - Formattin i ty of most most 00:00: g of this [place] recent recent 00 note Medical episode episode might be Branch depressed depressed different from the original. ICD10 Diagnosis Term Pumper Gauger Utility Allergies, Adverse Reactions, Alerts Allergy Allergy Status Severity Reaction(s) Onset Inactive Treating Comm ents Source Name Type Date Date Clinician Prochlor Propensi Active Anaphylaxis U nivers perazine ty to 6-23 ity of adverse 00:00: [place] reaction Medical s Branch PROCHLOR DRUG Active Anaphylaxis Uni vers PERAZINE INGREDI 6-23 ity of 00:00: [place] 00 Medical Branch Prochlor Propensi Active Anaphylaxis U nivers perazine ty to 7-10 ity of Edisylat adverse 00:00: [place] e reaction Medical s Branch PROCHLOR DRUG Active Anaphylaxis Uni vers PERAZINE INGREDI 7-10 ity of EDISYLAT 00:00: [place] E 00 Medical Branch Social History Social Habit Start Date Stop Date Quantity Comments Source History of tobacco Cigarette Smoker University of use [facility] Exposure to Not sure University of SARS-CoV-2 (event) [facility] Branch History [facility] o f Alcohol Std Drinks [facility] History [facility] o f Alcohol Binge [facility] Branch Alcohol intake 2021-07-22 2021-07-22 Current drinker Unive rsity of 00:00:00 00:00:00 of alcohol [facility] (finding) Branch Cigarettes smoked 2018-05-11 2018-05-11 Univers ity of current (pack per 00:00:00 00:00:00 [facility]) - Reported Branch Cigarette 2018-05-11 2018-05-11 University of pack-years 00:00:00 00:00:00 [facility] [place] [facility] Tobacco use and 2018-05-11 2018-05-11 Never used Universit y of exposure 00:00:00 00:00:00 [facility] [place] [facility] Alcohol Comment 2018-05-11 2018-05-11 Occasional Universit y of 00:00:00 00:00:00 [facility] [place] [facility] Sex Ass[birth year] At [birth year] Universit y of 00:00:00 00:00:00 [facility] [place] [facility] Smoking Status Start Date Stop Date Source Former smoker 2018-05-11 00:00:00 2018-05-11 00:00:00 Universi ty of [facility] [place] [facility] Medications Ordered Filled Start Stop Current Ordering Indication Dosage Frequency Signature Comments Components Source Medication Medication Date Date Medication? Clinician (SIG) Name Name risperiDONE 2020-09- 3mg Take 3 mg Univers (RISPERDAL) -16 16 by mouth ity of 3 mg tablet 14:07: 00:00 at [place] 54 :00 bedtime. Medical Branch ondansetron 2020-09 Yes [id number] 4mg Take 1 Univers (ZOFRAN 0-15 tablet by ity of ODT) 4 mg 00:00: mouth [place] disintegrat 00 every 8 Medic al ing tablet (eight) Branch hours as needed for Nausea and Vomiting (N/V). cetirizine Yes [id number] 10mg Take 1 U nivers 10 mg [...] TABLET BY ity of tablet 00:00: MOUTH [place] 00 EVERY DAY Medical Branch DIRECTED albuterol Yes [id number] 2{puff} Inhale 2 Univers 90 6-25 Puffs ity of mcg/actuati 00:00: every 6 Jethro as on inhaler 00 (six) Medical hours as Branch needed for Wheezing or Shortness of Breath. famotidine Yes [id number] 40mg Take 1 Univers (PEPCID) 40 6-23 tablet by ity of mg tablet 00:00: mouth [place] 00 daily. Medical Branch dicyclomine Yes 10mg Take 10 mg Univers (BENTYL) 10 6-19 by mouth 4 it y of mg capsule 13:06: (four) [place] 49 times Medical daily. Branch docusate Yes [id number] 100mg Take 1 U nivers 100 mg 6-19 capsule by ity of capsule 00:00: mouth 2 [place] 00 (two) Medical times Branch daily as needed for Constipati on. cyclobenzap Yes TAKE 1 Univ ers rine 10 mg 5-06 TABLET BY ity of tablet 00:00: MOUTH AT [place] [address] BEDTIME Medical DO NOT Branch DRIVE WITH MUSCLE RELAXER meloxicam 2020- No 15mg Take 15 mg U nivers 15 mg 5-06 11-16 by mouth ity of tablet 00:00: 00:00 daily. [place] 00 : Medical Branch ondansetron Yes [id number] 4mg Take 1 Univers 4 mg 1-23 [...] ity of tablet 00:00: 00:00 MG) BY [place] 00 :[address] Medical 1 TIMES Branch PER DAY VENTOLIN 2020-0 Yes INHALE ONE Uni vers HFA 90 06-04 (1) ity of mcg/actuati 00:00: PUFF(S) BY [place] on inhaler 00 MOUTH Medical EVERY FOUR Branch HOURS. fluticasone 2020-0 Yes INSTILL Uni vers propionate 06-04 ONE (1) ity of 50 00:00: SPRAY(S) [place] mcg/actuati 00 INTO EACH Med ical on nasal NOSTRIL Branch spray TWICE A DAY. proMETHazin 2020-0 Yes [id number] 25mg Take 1 Univers e 25 mg 6-23 tablet by ity of tablet 00:00: mouth [place] 00 every 6 Medical (six) Branch hours as needed for Nausea and Vomiting (N/V). hydrOXYzine 2018-09 Yes Univer s 25 mg 2-06 ity of capsule 00:00: [place] 00 [facility] lisinopril 2018-09 Univer s 20 mg 2-04 11-16 ity of tablet 00:00: 00:00 [place] 00 :00 Medical Branch STELARA 45 2018-09 Yes INJECT Unive rs mg/0.5 mL 1-26 45MG (1 ity of SC 00:00: SYRINGE) [place] injection 00 SUBCUTANEO Medi abhishek USLY EVERY Branch 8 WEEKS. Immunizations Ordered Filled Immunization Date Status Comments Sour e Immunization Name Name Influenza Virus 2020-06-23 Completed Universit y of Vaccine Quad .5 mL 00:00:00 [facility] 6+ MO Branch Influenza Virus 2019-08-06 Completed Universit y of Vaccine 00:00:00 [facility] [place] [facility] Vital Signs Vital Name Observation Time Observation Value Comments Source Systolic blood 2021-07-22 19:33:00 131 mm[Hg] Univer sity of pressure [facility] Diastolic blood 2021-07-22 19:33:00 79 mm[Hg] Unive rsity of pressure [facility] Heart rate 2021-07-22 19:33:00 86 /min [facility] Body temperature 2021-07-22 19:33:00 37.06 [facility] height 2021-07-22 19:33:00 160 cm [facility] Body weight 2021-07-22 19:33:00 76.658 kg [facility] BMI 2021-07-22 19:33:00 29.94 kg/m2 [facility] Procedures This patient has no known procedures. Encounters Start End Encounter Admission Attending Care Care Encounter Source Date/Time Date/Time Type Type Clinicians Facility Department ID 2021-07-22 2021-07-22 Outpatient R MARIUM SCHROEDER [facility] [id number] Univers 13:30:00 14:05:17 ity [facility] 2021-07-22 2021-07-22 Office Marium Schroeder [facility] [id number] [facility] 13:17:43 14:05:17 Visit TATYANA [id number] [facility] [id number] [facility]li [id number] [address] 2020-03-19 2020-03-19 Orders Doctor CASILLAS [id number] 00:00:00 00:00:00 Only Unassigned, DEXTER [id number] [place] [facility] [id number] 2020-02-28 2020-02-28 Transition Muna Tello [id number] 00:00:00 00:00:00 of Care Marley Castano [id number] [place] [id number] 2020-02-23 2020-02-27 [facility] Magalys Carreno [id number] 21:57:28 16:56:00 Encounter Michael Karli Quiles [id number] [place] [id number] 2020-01-31 2020-02-02 [facility] Annamaria Cardenas [facility] [id number]. [id number] 13:56:16 12:50:00 Encounter Keegan Owen [id number] [place] [id number] [place] [id number] 2020-01-31 2020-01-31 Orders Doctor SONJA [id number] 00:00:00 00:00:00 Only Unassigned, DEXTER [id number] [place] [facility] [id number] Results This patient has no known results.
[2021-07-31] MEDS ORDERED: DIPHENHYDRAMINE 50 MG/ML VIAL ONE (19:50)
[2021-07-31] MEDS ORDERED: EPINEPHRINE INH 0.5 ML VIAL IH ONE (19:51)
[2021-07-31] MEDS ORDERED: METHYLPREDNISOLONE 125 MG INJ ONE (20:09)
[2021-07-31] MEDS ORDERED: FAMOTIDINE 20 MG/2 ML VIAL IV ONE (20:09)
[2021-07-31] MEDS ORDERED: NA CHLORIDE 0.9% 1,000 ML ONE (20:20)
[2021-07-31 20:29] LABS: Basophils % 0.3 % (0-1.3); Hematocrit 37.3 % (36.0-45.0); Lymphocytes % 6.1 % (15.3-44.8); MPV 7.4 fL (7.6-11.3); RBC Red Blood Cell Count 4.37 M/uL (3.86-4.86)
--- NOTE | 2021-07-31 20:52 | RAD REPORT ---
EXAM DESCRIPTION: Margy Single View07/31/2021 8:03 pm CLINICAL HISTORY: Congestion COMPARISON: 2019 FINDINGS: The lungs appear clear of acute infiltrate. The heart is mildly enlarged IMPRESSION: No acute abnormalities displayed
[2021-07-31 20:56] LABS: Protime INR 1.03
[2021-07-31 21:10] LABS: ALT/SGPT 15 U/L (12-78); AST/SGOT 10 U/L (15-37); Albumin 4.2 g/dL (3.4-5.0); Alkaline Phosphatase 50 U/L (45-117); BUN Blood Urea Nitrogen 8 mg/dL (7-18); Bicarbonate 18 mmol/L (21-32); Bilirubin Direct < 0.1 mg/dL (0-0.2); Bilirubin Total 0.2 mg/dL (0.2-1.0); Glucose Level 209 mg/dL (74-106); Magnesium 2.1 mg/dL (1.8-2.4); NT PRO-BNP 44 pg/mL (<125); Protein, Total 8.1 g/dL (6.4-8.2); Sodium Level 143 mmol/L (136-145); Troponin (Emerg Dept Use Only) < 0.02 ng/mL (0.0-0.045)
[2021-07-31 21:11] LABS: Potassium 2.9 mmol/L (3.5-5.1)
[2021-07-31] MEDS ORDERED: KCL 20 MEQ/100 mL IVPB 20 MEQ/100 ML BAG IV ONE (21:13)
[2021-07-31] MEDS ORDERED: NA CHLORIDE 0.9% 250 ML ONE (21:15)
--- NOTE | 2021-07-31 21:25 | EDPHYS ---
Physician Documentation [facility] Name: Sowmya Juarez Age: 36 yrs Sex: Female : 1985 Arrival Date: 07/31/2021 Time: 19:44 Bed 4 Private MD: ED Physician Melvin Phillips HPI: 07/31 20:03 This 36 yrs old Female presents to ER via Unassigned with complaints of Tongue mh7 swelling.. 20:03 The patient presents with swelling of the tongue. Onset: The symptoms/episode mh7 began/occurred today, at 14:30, and became worse just prior to arrival. Associated signs and symptoms: Pertinent positives: shortness of breath, swelling, Tongue, Pertinent negatives: abdominal pain, Altered mental status chest pain, fever, headache, hives, Light headed nausea, rash, Syncope vomiting. Possible causes: The patient has no known obvious cause for the symptoms. At home the patient or guardian has treated the symptoms with EpiPen. Severity of symptoms: At their worst the symptoms were moderate just prior to arrival, today, in the emergency department the symptoms have improved mildly. The patient has experienced similar episodes in the past, several times. The patient has been recently seen at the [facility] Emergency Department, today. 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 N/A - Hysterectomy aj1 Historical: - Allergies: 20:04 Compazine; aj1 20:04 Prochlorperazine; aj1 20:04 prochlorperazine Edisylate; aj1 20:04 Prochlorperazine Maleate; aj1 - Home Meds: 20:04 Albuterol Inhl [Active]; atorvastatin 20 mg Oral tab 1 tab once daily [Active]; Flonase aj1 Nasal [Active]; Imitrex 25 mg Oral tab 1 tab [Active]; Lamictal 100 mg Oral tab 1 tab once daily [Active]; lisinopril 20 mg Oral tab 1 tab once daily [Active]; pantoprazole 40 mg Oral TbEC 1 tab once daily [Active]; Phenergan Oral 25 mg as needed [Active]; Prilosec 40 mg Oral cpDR 1 cap once daily [Active]; Prozac 20 mg Oral cap 1 cap once daily [Active]; Risperdal 3 mg Oral tab 1 tab nightly [Active]; Symbicort inhalation [Active]; topiramate 50 mg Oral CSpX 1 cap once daily [Active]; trazodone 100 mg Oral tab nightly [Active]; Zofran (as hydrochloride) 4 mg Oral tab as needed [Active]; Zyrtec Oral [Active]; - PMHx: 20:04 Bipolar disorder; Crohn's; Hypertension; Migraines; aj1 23:11 hyperlipidemia; df1 - PSHx: 23:11 Appendectomy; Cholecystectomy; Total abdominal hysterectomy; section; df1 - Immunization history:: Flu vaccine is not up to date. - Social history:: Smoking status: Patient/guardian denies using tobacco. ROS: 20:03 Constitutional: Negative for fever, chills, and weight loss, Eyes: Negative for injury, mh7 pain, redness, and discharge, Neck: Negative for injury, pain, and swelling, Cardiovascular: Negative for chest pain, palpitations, and edema, Abdomen/GI: Negative for abdominal pain, nausea, vomiting, diarrhea, and constipation, Back: Negative for injury and pain, : Negative for injury, bleeding, discharge, and swelling, MS/Extremity: Negative for injury and deformity, Skin: Negative for injury, rash, and discoloration, Neuro: Negative for headache, weakness, numbness, tingling, and seizure, Psych: Negative for depression, anxiety, suicide ideation, homicidal ideation, and hallucinations, Endocrine: Negative for neck swelling, polydipsia, polyuria, polyphagia, and marked weight changes, Hematologic/Lymphatic: Negative for swollen nodes, abnormal bleeding, and unusual bruising. Exam: 20:03 Head/Face: Normocephalic, atraumatic. Eyes: Pupils equal round and reactive to light, mh7 extra-ocular motions intact. Lids and lashes normal. Conjunctiva and sclera are non-icteric and not injected. Cornea within normal limits. Periorbital areas with no swelling, redness, or edema. 20:03 Neck: Trachea midline, no thyromegaly or masses palpated, and no cervical lymphadenopathy. Supple, full range of motion without nuchal rigidity, or vertebral point tenderness. No Meningismus. Chest/axilla: Normal chest wall appearance and motion. Nontender with no deformity. No lesions are appreciated. 20:03 Respiratory: Lungs have equal breath sounds bilaterally, clear to auscultation and percussion. No rales, rhonchi or wheezes noted. No increased work of breathing, no retractions or nasal flaring. Abdomen/GI: Soft, non-tender, with normal bowel sounds. No distension or tympany. No guarding or rebound. No evidence of tenderness throughout. Back: No spinal tenderness. No costovertebral tenderness. Full range of motion. Skin: Warm, dry with normal turgor. Normal color with no rashes, no lesions, and no evidence of cellulitis. MS/ Extremity: Pulses equal, no cyanosis. Neurovascular intact. Full, normal range of motion. Neuro: Awake and alert, GCS 15, oriented to person, place, time, and situation. Cranial nerves II-XII grossly intact. Motor strength 5/5 in all extremities. Sensory grossly intact. Cerebellar exam normal. Normal gait. Psych: Awake, alert, with orientation to person, place and time. Behavior, mood, and affect are within normal limits. 20:03 Constitutional: The patient appears alert, awake, anxious. 20:03 ENT: Mouth: Tongue: is swollen. 20:03 Cardiovascular: Rate: tachycardic, Rhythm: regular, Pulses: no pulse deficits are appreciated, Heart sounds: normal, normal S1and S2, Edema: is not appreciated, JVD: is not appreciated. Vital Signs: 19:50 BP 166 / 100; Pulse 142; Resp 30; Pulse Ox 100% on R/A; aj1 20:25 BP 136 / 64; Pulse 103; Resp 16; Pulse Ox 98% on R/A; tw5 20:57 BP 131 / 69; Pulse 94; Resp 18; Pulse Ox 97% on R/A; tw5 21:16 BP 141 / 120; Pulse 107; Resp 18; Pulse Ox 98% on R/A; tw5 21:47 BP 121 / 69; Pulse 88; Resp 20; Pulse Ox 98% on R/A; tw5 MDM: 21:21 Differential diagnosis: anaphylaxis, angioedema, bronchospasm, foreign body or airway mh7 obstruction Hereditary Angioedema non IgE mediated drug reaction urticaria, Vocal Cord Dysfunction. Data reviewed: vital signs, nurses notes, old medical records, lab test result(s), CBC, electrolytes, EKG, radiologic studies, plain films. Data interpreted: Pulse oximetry: on room air is 98 %. Interpretation: normal. Counseling: I had a detailed discussion with the patient and/or guardian regarding: the historical points, exam findings, and any diagnostic results supporting the discharge/admit diagnosis, the presence of at least one elevated blood pressure reading (>120/80) during this emergency department visit, lab results, radiology results, the need for further work-up and treatment in the hospital. Response to treatment: the patient's symptoms have markedly improved after treatment. ED course: Feels better, no acute distress, vital signs stable, no focal neurological deficits. No tongue swelling, lip swelling, no hoarseness. Discussed test results and findings and recommended admission for observation which patient is agreeable to.. 21:25 Patient medically screened. [facility] 07/31 19:49 Order name: Basic Metabolic Panel; Complete Time: 21:16 [facility] 07/31 19:49 Order name: CBC with Diff [facility] 07/31 19:49 Order name: LFT's; Complete Time: 21:16 [facility] 07/31 19:49 Order name: Magnesium; Complete Time: 21:16 [facility] 07/31 19:49 Order name: NT PRO-BNP; Complete Time: 21:16 [facility] 07/31 19:49 Order name: PT-INR; Complete Time: 21:16 [facility] 07/31 19:49 Order name: Troponin (emerg Dept Use Only); Complete Time: 21:16 [facility] 07/31 19:49 Order name: XRAY Chest (1 view); Complete Time: 21:16 [facility] 07/31 21:36 Order name: COVID-19 SARS RT PCR (Document "Date of Onset" if Symptomatic) 07/31 22:43 Order name: CBC Smear Scan [facility] 07/31 19:49 Order name: EKG; Complete Time: 19:50 [facility] 07/31 19:49 Order name: Cardiac monitoring; Complete Time: 20:24 [facility] 07/31 19:49 Order name: EKG - Nurse/Tech; Complete Time: 20:24 [facility] 07/31 19:49 Order name: IV Saline Lock; Complete Time: 20:02 [facility] 07/31 19:49 Order name: Labs collected and sent; Complete Time: 20:09 [facility] 07/31 19:49 Order name: O2 Per Protocol; Complete Time: 20:02 [facility] 07/31 19:49 Order name: O2 Sat Monitoring; Complete Time: 20:02 7 Administered Medications: 19:55 Drug: Racemic EPINPHrine 0.5 ml Route: Inhalation; aj1 20:24 Follow up: Response: No adverse reaction; Wheezing diminished tw5 19:55 Drug: Benadryl (diphenhydrAMINE) 25 mg Route: IVP; Site: left antecubital; aj1 20:24 Follow up: Response: No adverse reaction; Wheezing diminished tw5 20:22 Drug: SOLU-Medrol (methylPrednisoLONE) 125 mg Route: IVP; Site: left forearm; tw5 20:57 Follow up: Response: No adverse reaction tw5 20:22 Drug: Pepcid (famotidine) 20 mg Route: IVP; Site: left forearm; tw5 20:57 Follow up: Response: No adverse reaction tw5 20:24 Drug: NS 0.9% 1000 ml Route: IV; Rate: 1000 ml; Site: left forearm; tw5 21:48 Follow up: IV Status: Completed infusion tw5 21:21 Drug: Potassium Chloride 20 mEq Route: IV; Rate: calculated rate; Site: left forearm; tw5 21:48 Follow up: IV Status: Infusion continued upon admission tw5 Disposition Summary: 07/31/21 21:25 Hospitalization Ordered Hospitalization Status: Observation [facility] Provider: Gaby Smallwood Location: Telemetry/MedSurg (observation) [facility] Condition: Stable [facility] Problem: an acute exacerbation [facility] Symptoms: have improved [facility] Bed/Room Type: Standard [facility] Room Assignment: [facility](07/31/21 23:05) Diagnosis - Angioedema [facility] - Hypokalemia [facility] Forms: - Medication Reconciliation Form [facility] - SBAR form [facility] Signatures: Dispatcher [employer] Sofya Bailey RN RN aj1 Georgette White RN RN Melvin Herrera MD MD 7 Yissel Santos df1 Robyn Salgado tw5 Corrections: (The following items were deleted from the chart) 23:05 21:25 [facility] mw 23:12 20:04 Allergies: Demerol; aj1 df1
--- NOTE | 2021-07-31 21:25 | ER ---
Nurse's Notes [facility] Name: Sowmya Juarez Age: 36 yrs Sex: Female : 1985 Arrival Date: 07/31/2021 Time: 19:44 Bed 4 Private MD: Diagnosis: Angioedema;Hypokalemia Presentation: 07/31 19:50 Chief complaint: Patient states: Patient was in this ER earlier for the same complaint, aj1 she was feeling better when she left, but then all of the sudden all her symptoms came back, but worse. Patient reports shortness of breath, swelling noted to tongue and lips. 19:50 Coronavirus screen: Vaccine status: Patient reports being unvaccinated. Ebola Screen: aj1 Patient denies travel to an Ebola-affected area in the 21 days before illness onset. Initial Sepsis Screen: Does the patient meet any 2 criteria? RR > 20 per min. HR > 90 bpm. Yes Does the patient have a suspected source of infection? No. Patient's initial sepsis screen is negative. Risk Assessment: Do you want to hurt yourself or someone else? Patient reports no desire to harm self or others. Onset of symptoms was July 31, 2021. 19:50 Method Of Arrival: Wheelchair aj1 19:50 Acuity: KALYN 2 aj1 Triage Assessment: 20:04 General: Appears distressed, uncomfortable, Behavior is cooperative, anxious. Pain: aj1 Complains of pain in chest and neck. EENT: Reports difficulty swallowing. Neuro: Level of Consciousness is awake, alert, obeys commands. Cardiovascular: Patient's skin is warm and dry. Respiratory: Respiratory effort is even, labored, Respiratory pattern is regular, symmetrical, tachypnea. 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 N/A - Hysterectomy aj1 Historical: - Allergies: 20:04 Compazine; aj1 20:04 Prochlorperazine; aj1 20:04 prochlorperazine Edisylate; aj1 20:04 Prochlorperazine Maleate; aj1 - Home Meds: 20:04 Albuterol Inhl [Active]; atorvastatin 20 mg Oral tab 1 tab once daily [Active]; Flonase aj1 Nasal [Active]; Imitrex 25 mg Oral tab 1 tab [Active]; Lamictal 100 mg Oral tab 1 tab once daily [Active]; lisinopril 20 mg Oral tab 1 tab once daily [Active]; pantoprazole 40 mg Oral TbEC 1 tab once daily [Active]; Phenergan Oral 25 mg as needed [Active]; Prilosec 40 mg Oral cpDR 1 cap once daily [Active]; Prozac 20 mg Oral cap 1 cap once daily [Active]; Risperdal 3 mg Oral tab 1 tab nightly [Active]; Symbicort inhalation [Active]; topiramate 50 mg Oral CSpX 1 cap once daily [Active]; trazodone 100 mg Oral tab nightly [Active]; Zofran (as hydrochloride) 4 mg Oral tab as needed [Active]; Zyrtec Oral [Active]; - PMHx: 20:04 Bipolar disorder; Crohn's; Hypertension; Migraines; aj1 23:11 hyperlipidemia; df1 - PSHx: 23:11 Appendectomy; Cholecystectomy; Total abdominal hysterectomy; section; df1 - Immunization history:: Flu vaccine is not up to date. - Social history:: Smoking status: Patient/guardian denies using tobacco. Screenin:10 Abuse screen: Denies threats or abuse. Denies injuries from another. Nutritional tw5 screening: No deficits noted. Tuberculosis screening: No symptoms or risk factors identified. Fall Risk None identified. Assessment: 20:25 General: Reports this is the second time today that that this reaction has happened. tw5 She took an epi pen prior to arrival. She states at time time she is feeling better, but upon arrival she felt like her face was swollen and she was having a hard time breathing. Pain: Denies pain. Pain: Pain currently is 0 out of 10 on a pain scale. Respiratory: Airway is patent Trachea midline Respiratory effort is even, unlabored, Respiratory pattern is regular, Breath sounds are clear bilaterally. 20:57 Reassessment: Patient states feeling better. Patient states symptoms have improved. tw5 21:16 General: Appears in no apparent distress. Behavior is calm, cooperative, appropriate tw5 for age. 21:47 Reassessment: Patient appears in no apparent distress at this time. No changes from tw5 previously documented assessment. Vital Signs: 19:50 BP 166 / 100; Pulse 142; Resp 30; Pulse Ox 100% on R/A; aj1 20:25 BP 136 / 64; Pulse 103; Resp 16; Pulse Ox 98% on R/A; tw5 20:57 BP 131 / 69; Pulse 94; Resp 18; Pulse Ox 97% on R/A; tw5 21:16 BP 141 / 120; Pulse 107; Resp 18; Pulse Ox 98% on R/A; tw5 21:47 BP 121 / 69; Pulse 88; Resp 20; Pulse Ox 98% on R/A; tw5 ED Course: 19:44 Patient arrived in ED. mw2 19:48 Melvin Phillips MD is Attending Physician. mh7 20:03 XRAY Chest (1 view) In Process Unspecified. EDMS 20:04 Triage completed. aj1 20:04 Arm band placed on Patient placed in an exam room. aj1 20:07 Robyn Salgado is Primary Nurse. tw5 20:08 Basic Metabolic Panel Sent. tw5 20:08 CBC with Diff Sent. tw5 20:08 LFT's Sent. tw5 20:08 Magnesium Sent. tw5 20:08 NT PRO-BNP Sent. tw5 20:08 PT-INR Sent. tw5 20:08 Troponin (emerg Dept Use Only) Sent. tw5 20:10 Assisted to bathroom. tw5 20:10 Initial lab(s) drawn, by ED staff, sent to lab. Inserted saline lock: 20 gauge in left tw5 forearm, using aseptic technique. Blood collected. 20:10 EKG done, by ED staff, reviewed by Melvin Phillips MD. tw5 20:57 Patient has correct armband on for positive identification. Placed in gown. Bed in low tw5 position. Call light in reach. Side rails up X 1. oncology specialist on. Pulse ox on. NIBP on. Door closed. Noise minimized. Lights dimmed. Warm blanket given. Verbal reassurance given. 21:11 Notified ED physician of a critical lab result(s). potassium 2.9. tw5 21:24 Gaby Smallwood MD is Hospitalizing Provider. mh7 21:47 COVID swab sent to lab. tw5 21:48 COVID-19 SARS RT PCR (Document "Date of Onset" if Symptomatic) Sent. tw5 23:12 No provider procedures requiring assistance completed. Patient admitted, IV remains in df1 place. Administered Medications: 19:55 Drug: Racemic EPINPHrine 0.5 ml Route: Inhalation; aj1 20:24 Follow up: Response: No adverse reaction; Wheezing diminished tw5 19:55 Drug: Benadryl (diphenhydrAMINE) 25 mg Route: IVP; Site: left antecubital; aj1 20:24 Follow up: Response: No adverse reaction; Wheezing diminished tw5 20:22 Drug: SOLU-Medrol (methylPrednisoLONE) 125 mg Route: IVP; Site: left forearm; tw5 20:57 Follow up: Response: No adverse reaction tw5 20:22 Drug: Pepcid (famotidine) 20 mg Route: IVP; Site: left forearm; tw5 20:57 Follow up: Response: No adverse reaction tw5 20:24 Drug: NS 0.9% 1000 ml Route: IV; Rate: 1000 ml; Site: left forearm; tw5 21:48 Follow up: IV Status: Completed infusion tw5 21:21 Drug: Potassium Chloride 20 mEq Route: IV; Rate: calculated rate; Site: left forearm; tw5 21:48 Follow up: IV Status: Infusion continued upon admission tw5 Outcome: 21:25 Decision to Hospitalize by Provider. Kevyn 23:17 Admitted to Med/surg accompanied by tech, via wheelchair, room 215, with chart, Report tw5 called to Reynaldo GUTIERRES 23:17 Condition: improved 23:17 Condition: improved 23:17 Instructed on the need for admit. 23:39 Patient left the ED. tw5 Signatures: Dispatcher [employer] Sofya Bailey RN RN aj1 Nimesh Haq 2 Melvin Phillips MD MD 7 Yissel Santos df1 Robyn Salgado tw5 Corrections: (The following items were deleted from the chart) 23:12 20:04 Allergies: Demerol; aj1 df1
[2021-07-31 22:42] LABS: Blood Morphology Comment NOT SEEN (NOT SEEN); Platelet Estimate ADEQ; White Blood Cell Scan OK (OK)
--- NOTE | 2021-07-31 23:24 | P.HP ---
Certification for Inpatient Patient admitted to: Inpatient With expected LOS: <2 Midnights Patient will require the following post-hospital care: None Practitioner: I am a practitioner with admitting privileges, knowledge of patient current condition, hospital course, and medical plan of care. Services: Services provided to patient in accordance with Admission requirements found in Title 42 Section 412.3 of the Code of Federal Regulations Patient History Date of Service: 07/31/21 Reason for admission: angioedema History of Present Illness: Ms. Juarez is a 36 yo F with bipolar disorder, Crohn's disease, HLD who presents with sudden onset angioedema. Around 1:30pm today her tongue and throat started welling. She gave herself an EpiPen, took a benadryl and pepcid, as well as her symbicort and albuterol inhaler. She gave herself her 2nd epipen and went to the ED. Her symptoms resolved after much of the same treatment. Two hours later, her symptoms returned and were much worse. She gave herself another epipen and returned to the ED. Upon arrival, her airway was making a loud wheezing sound. At bedside, she feels back to baseline. She has seen an label remover but no conclusions were made as to her triggers. She is scheduled to see the label remover next Wednesday. Previously she thought her trigger was cranberry juice, but she has not had it for months. Before the first episode she ate a lisa brownie and an orange mikala. Before the second episode, she had roasted chicken, green [place] casserole, dressing, and pumpkin pie. She took her atorvastatin and lithium this morning. She takes her risperidone and trazodone at bedtime. She stopped taking lisinopril 2 weeks ago. She received Stelara injections every 9 weeks. WBC 16 K 2.9 Glu 209. She received benadryl, racemic epi, pepcid, steroids, potassium and fluids in the ED. She is admitted for further management. Allergies prochlorperazine [From Compazine] Allergy (Verified 08/10/19 13:57) Rash prochlorperazine edisylate [From Compazine] Allergy (Verified 08/10/19 13:57) Rash prochlorperazine maleate [From Compazine] Allergy (Verified 08/10/19 13:57) Rash Home Medications: Fluoxetine HCl [Prozac*] 40 mg PO DAILY 08/21/15 Risperidone 3 mg PO BEDTIME 08/21/15 Tramadol HCl 50 mg PO DAILY 08/21/15 [place] Carbonate [Lithotabs 300MG] 300 mg PO BEDTIME 08/10/19 Omeprazole [Prilosec] 40 mg PO DAILY 08/10/19 Tramadol HCl [Ultram] 50 mg PO Q6HP PRN 08/10/19 Ustekinumab [Stelara] 90 mg IV ONCE 08/10/19 lisinopriL [Prinivil] 20 mg PO [id number] 08/10/19 - Past Medical/Surgical History Diabetic: No -: bipolar disorder, hypertension,migraines -: Crohns -: HLD -: C- section, cholecystectomy,tubal ligation -: appendectomy -: hysterectomy -: endometrial ablation - Family History Family History: Reviewed- Non-Contributory (patient is adopted) - Social History Smoking Status: Never smoker Alcohol use: No CD- Drugs: No Caffeine use: Yes Place of Residence: Home Review of Systems 10-point ROS is otherwise unremarkable General: Unremarkable Eyes: Unremarkable ENT: Mouth Swelling, Throat Swelling, As per HPI Respiratory: Shortness of Breath, Wheezing, As per HPI Cardiovascular: Unremarkable Gastrointestinal: Unremarkable Genitourinary: Unremarkable Musculoskeletal: Unremarkable Integumentary: Unremarkable Neurological: Unremarkable Lymphatics: Unremarkable Physical Examination - Physical Exam General: Alert, In no apparent distress HEENT: Atraumatic, PERRLA, Mucous membr. moist/pink, EOMI, Sclerae nonicteric Neck: Supple, 2+ carotid pulse no bruit, No LAD, Without JVD or thyroid abnormality Respiratory: Clear to auscultation bilaterally, Normal air movement Cardiovascular: Regular rate/rhythm, Normal S1 S2 Gastrointestinal: Normal bowel sounds, No tenderness Musculoskeletal: No tenderness Integumentary: No rashes Neurological: Normal gait, Normal speech, Normal strength at 5/5 x4 extr, Normal tone, Normal affect Lymphatics: No axilla or inguinal lymphadenopathy - Studies Laboratory Data (last 24 hrs) 07/31/21 20:15: PT 11.9, INR 1.03 07/31/21 20:15: WBC 16.00 H, Hgb 12.4, Hct 37.3, Plt Count 390 07/31/21 20:15: Sodium 143, Potassium 2.9 L*, BUN 8, Creatinine 0.96, Glucose 209 H, Magnesium 2.1, Total Bilirubin 0.2, AST 10 L, ALT 15, Alkaline Phosphatase 50 Assessment and Plan - Problems (Diagnosis) (1) Angioedema Current Visit: Yes Status: Acute Qualifiers: Encounter type: initial encounter Qualified Code(s): T78.3XXA - Angioneurotic edema, initial encounter (2) Allergic reaction Current Visit: Yes Status: Acute Qualifiers: Encounter type: initial encounter Qualified Code(s): T78.40XA - Allergy, unspecified, initial encounter (3) Bipolar 1 disorder Current Visit: Yes Status: Chronic (4) Crohn disease Current Visit: Yes Status: Chronic Qualifiers: Gastrointestinal tract location: unspecified location Digestive disease complication type: without complication Qualified Code(s): K50.90 - Crohn's disease, unspecified, without complications (5) HLD (hyperlipidemia) Current Visit: Yes Status: Chronic Qualifiers: Hyperlipidemia type: unspecified Qualified Code(s): E78.5 - Hyperlipidemia, unspecified - Plan continue IVF hydration continue IV steroids, benadryl continue to monitor airway, breathing treatments as needed potassium replacement procal and lactate pending asked patient to contact label remover in the AM to see if appointment can be moved up DVT ppx Discharge Plan: Home Plan to discharge in: 24 Hours - Advance Directives Does patient have a Living Will: No Does patient have a Durable POA for Healthcare: No - Code Status/Comfort Care Code Status Assessed: Yes (full code ) Critical Care: No Time Spent Managing Pts Care (In Minutes): 70
[2021-07-31] MEDS ORDERED: NA CHLORIDE 0.9% 1,000 ML IV SCH (23:40)
[2021-07-31] MEDS ORDERED: DIPHENHYDRAMINE 50 MG/ML VIAL IV PRN (23:40)
[2021-07-31] MEDS ORDERED: ALBUTEROL 2.5 MG/3 ML NEB SOL NEB PRN (23:40)
[2021-07-31] MEDS ORDERED: HYDRALAZINE HCL 20 MG/ML VIAL IV PRN (23:40)
[2021-07-31] MEDS ORDERED: ONDANSETRON 4 MG/2 ML VIAL IV PRN (23:40)
[2021-07-31] MEDS: KCL 20 MEQ/100 mL IVPB 20 MEQ/100 ML BAG IV SCH (23:55)
[2021-08-01 00:17] VITALS: BMI 42795.6
[2021-08-01] MEDS: NA CHLORIDE 0.9% 1,000 ML IV SCH ×2 (01:18→12:08)
[2021-08-01] MEDS: KCL 20 MEQ/100 mL IVPB 20 MEQ/100 ML BAG IV SCH (01:47)
[2021-08-01 01:49] LABS: Urine Appearance Clear (Clear); Urine Bilirubin Negative (Negative); Urine Blood Negative (Negative); Urine Color Yellow (Yellow); Urine Glucose Negative (Negative); Urine Protein Negative (Negative); Urine Urobilinogen 0.2 mg/dL (0.2-1.0); Urine pH 5.5 (5.0-7.0)
[2021-08-01 01:50] LABS: Urine Microscopic Reflex NO UMIC
[2021-08-01] MEDS: ACETAMINOPHEN 500 MG TAB PO PRN ×2 (02:24→09:14)
[2021-08-01 04:27] LABS: Absolute Lymphocytes (CBC) 0.6 K/uL (0.7-4.9); Basophils % 0.2 % (0-1.3); Hematocrit 34.2 % (36.0-45.0); Lymphocytes % 5.7 % (15.3-44.8); RBC Red Blood Cell Count 3.99 M/uL (3.86-4.86)
[2021-08-01 04:46] LABS: ALT/SGPT 16 U/L (12-78); AST/SGOT 5 U/L (15-37); Albumin 3.8 g/dL (3.4-5.0); Alkaline Phosphatase 46 U/L (45-117); BUN Blood Urea Nitrogen 8 mg/dL (7-18); Bicarbonate 18 mmol/L (21-32); Bilirubin Total 0.2 mg/dL (0.2-1.0); Glucose Level 165 mg/dL (74-106); HDL Cholesterol 52 mg/dL (40-60); LDL Cholesterol, Calculated 148 (<130); Magnesium 1.9 mg/dL (1.8-2.4); Phosphorus 1.7 mg/dL (2.5-4.9); Potassium 4.3 mmol/L (3.5-5.1); Protein, Total 7.4 g/dL (6.4-8.2); Sodium Level 142 mmol/L (136-145); Thyroid Stimulating Hormone 0.233 uIU/mL (0.360-3.740)
[2021-08-01] MEDS: METHYLPREDNISOLONE 40 MG INJ IV SCH ×2 (06:09→09:16)
[2021-08-01] MEDS: INSULIN -REGULAR HUMAN 50 UNIT/0.5 ML ML SQ SCH ×2 (07:30→11:30)
[2021-08-01 08:43] VITALS: O2SAT 99
[2021-08-01 12:18] VITALS: BP 117/57; TEMP 98.4
--- NOTE | 2021-08-01 12:29 | P.DS ---
Admission Date: 07/31/21 Discharge Date: 08/01/21 Disposition: ROUTINE DISCHARGE Discharge Condition: GOOD Reason for Admission: angioedema Brief History of Present Illness: Ms. Juarez is a 36 yo F with bipolar disorder, Crohn's disease, HLD who presents with sudden onset angioedema. Around 1:30pm today her tongue and throat started welling. She gave herself an EpiPen, took a benadryl and pepcid, as well as her symbicort and albuterol inhaler. She gave herself her 2nd epipen and went to the ED. Her symptoms resolved after much of the same treatment. Two hours later, her symptoms returned and were much worse. She gave herself another epipen and returned to the ED. Upon arrival, her airway was making a loud wheezing sound. At bedside, she feels back to baseline. She has seen an line haul driver but no conclusions were made as to her triggers. She is scheduled to see the line haul driver next Wednesday. Previously she thought her trigger was cranberry juice, but she has not had it for months. Before the first episode she ate a lisa brownie and an orange mikala. Before the second episode, she had roasted chicken, green sanford casserole, dressing, and pumpkin pie. She took her atorvastatin and lithium this morning. She takes her risperidone and trazodone at bedtime. She stopped taking lisinopril 2 weeks ago. She received Stelara injections every 9 weeks. WBC 16 K 2.9 Glu 209. She received benadryl, racemic epi, pepcid, steroids, potassium and fluids in the ED. She is admitted for further management. Hospital Course: Pt was admitted for angioedema, she was started on IVF hydration with IV steroids with solumedrols , and IV benadryl,she was obs over night and done very well, she was advised to move her appt with line haul driver in [place] to early this wk rather than wednesday, will provide lunch and if pt done well , will DC home, she already have script for Prevacid and prednisone at home for 5 days advised to only eat or drink natural food without preservative till she get cleared by her line haul driver, she will come back to ED if she START to have any hives, SOB or new allergic sxs Vital Signs/Physical Exam: Temp Pulse Resp BP Pulse Ox 98.4 F 87 19 117/57 L 98 08/01/21 12:00 08/01/21 12:00 08/01/21 12:00 08/01/21 12:00 08/01/21 12:00 Laboratory Data at Discharge: WBC 10.30 K/uL (4.3-10.9) D 08/01/21 04:01 Hgb 11.5 g/dL (12.0-15.0) L 08/01/21 04:01 Hct 34.2 % (36.0-45.0) L 08/01/21 04:01 Plt Count 310 K/uL (152-406) D 08/01/21 04:01 PT 11.9 SECONDS (9.5-12.5) 07/31/21 20:15 INR 1.03 07/31/21 20:15 Sodium 142 mmol/L (136-145) 08/01/21 04:01 Potassium 4.3 mmol/L (3.5-5.1) 08/01/21 04:01 BUN 8 mg/dL (7-18) 08/01/21 04:01 Creatinine 0.70 mg/dL (0.55-1.3) 08/01/21 04:01 Glucose 165 mg/dL (74-106) H 08/01/21 04:01 Phosphorus 1.7 mg/dL (2.5-4.9) L 08/01/21 04:01 Magnesium 1.9 mg/dL (1.8-2.4) 08/01/21 04:01 Total Bilirubin 0.2 mg/dL (0.2-1.0) 08/01/21 04:01 AST 5 U/L (15-37) L 08/01/21 04:01 ALT 16 U/L (12-78) 08/01/21 04:01 Alkaline Phosphatase 46 U/L (45-117) 08/01/21 04:01 Triglycerides 51 mg/dL (<150) 08/01/21 04:01 Cholesterol 210 mg/dL (<200) H 08/01/21 04:01 HDL Cholesterol 52 mg/dL (40-60) 08/01/21 04:01 Cholesterol/HDL Ratio 4.04 08/01/21 04:01 Home Medications: Risperidone 3 mg PO BEDTIME 08/21/15 Tramadol HCl 50 mg PO DAILY 08/21/15 Ustekinumab [Stelara] 90 mg IV ONCE 08/10/19 Physician Discharge Instructions: follow up with pcp on wednesday Diet: Regular Activity: Ad yang Followup: NONE,NONE [Primary Care Provider] -
== END 2021-08-01 14:20 | disposition home or self-care (01) | DRG 916 ==
LOC: ER 19:42 → ERHOLD 22:40 → 2ND 23:11
PROVIDERS: ADMIT Internal Medicine; ATTEND Internal Medicine
DX: T78.3XXA Angioneurotic edema, initial encounter (principal); K50.90 Crohn's disease, unspecified, without complications; F31.9 Bipolar disorder, unspecified; E87.6 Hypokalemia; E78.5 Hyperlipidemia, unspecified; T78.40XA Allergy, unspecified, initial encounter; X58.XXXA Exposure to other specified factors, initial encounter; Z20.822 Contact with and (suspected) exposure to COVID-19
CPT/HCPCS: 36415; 71045; 80048; 80053; 80061; 80076; 81003; 82947; 83605; 83735; 83880; 84100; 84145; 84439; 84443; 84484; 85025; 85610; 93005; 94760; 96374; 96375; 99284; 99285; J1200; J2405; J2920; J2930; J3480; J7030; J7050; U0003

== ENCOUNTER 2021-08-24 10:49 | Emergency (ER) | payer OTHER ==
--- OUTSIDE RECORDS SUMMARY | 2021-08-24 10:52 | XMS REPORT | Continuity of Care Document ---
:1985 Author Organization [facility] t Address [address] [place] [address] Dr. Sh[address]. [address] [place] [address] Care Team Providers Name Role Phone Amadou Jackson Primary Care Physician Jess BURKETT, L Attending Clinician Doctor Unassigned, Name Attending Clinician Unavailable Omer GUTIERRES Attending Clinician Unavailable Wai BURKETT, A Attending Clinician Ronald OBRIEN Attending Clinician Brayden BURKETT Attending Clinician Wai BURKETT, A Admitting Clinician Brayden BURKETT Admitting Clinician Payers Payer Name Policy Type Policy Number Effective Date Expiration Date S ource Problems Condition Condition Condition Status Onset Resolution Last Treating Co mments Source Name Details Category Date Date Treatment Clinician Date Allergic Allergic Disease Active Unive rs reaction, reaction, 6 ity of initial initial 00:00: [place] encounter encounter 00 Medi abhishek Branch Post-opera Post-opera Disease Active U nivers tive state tive state 02-28 it y of 00:00: [place] 00 Medical Branch S/P S/P Disease Active Univers laparoscop laparoscop 02-22 it y of ic ic 00:00: [place] assisted assisted 00 Medica l vaginal vaginal Branch hysterecto hysterecto my (LAVH) my (LAVH) Crohn Crohn Disease Active Univers disease disease 9-05 ity of 00:00: [place] 00 Medical Branch Obesity Obesity Disease Active Univers (BMI (BMI 9-05 ity of 30-39.9) 30-39.9) 00:00: [place] 00 Medical Branch Bipolar I Bipolar I Disease Active Overview: Univers disorder, disorder, 7-11 Formattin i ty of most most 00:00: g of this [place] recent recent 00 note Medical episode episode might be Branch depressed depressed different from the original. ICD10 Diagnosis [address] Utility Allergies, Adverse Reactions, Alerts Allergy Allergy Status Severity Reaction(s) Onset Inactive Treating Comm ents Source Name Type Date Date Clinician Prochlor Propensi Active Anaphylaxis U nivers perazine ty to 6-23 ity of adverse 00:00: [place] reaction 00 Medical s Branch Prochlor Propensi Active Anaphylaxis U nivers perazine ty to 7-10 ity of Edisylat adverse 00:00: [place] e reaction 00 Medical s Branch Social History Social Habit Start Date Stop Date Quantity Comments Source History of tobacco Cigarette Smoker University of use [facility] Exposure to Not sure University of SARS-CoV-2 (event) [facility] Branch History SDID University o f Alcohol Frequency [facility] Branch History [facility] o f Alcohol Std Drinks [facility] Branch History [facility] University o f Alcohol Binge [facility] Branch Alcohol intake 2021-08-08 2021-08-08 Current drinker Unive rsity of 00:00:00 00:00:00 of alcohol [facility] (finding) Branch Cigarettes smoked 2018-05-11 2018-05-11 Univers ity of current (pack per 00:00:00 00:00:00 [facility] ) - Reported Branch Cigarette 2018-05-11 2018-05-11 University of pack-years 00:00:00 00:00:00 [facility] Tobacco use and 2018-05-11 2018-05-11 Never used Universit y of exposure 00:00:00 00:00:00 [facility] Alcohol Comment 2018-05-11 2018-05-11 Occasional Universit y of 00:00:00 00:00:00 [facility] Sex [birth year] Universit y of 00:00:00 00:00:00 [place] [facility] Smoking Status Start Date Stop Date Source Former smoker 2018-05-11 00:00:00 2018-05-11 00:00:[address] [facility] Medical Branch Medications Ordered Filled Start Stop Current Ordering Indication Dosage Frequency Signature Comments Components Source Medication Medication Date Date Medication? Clinician (SIG) Name Name christiane 2020-09 Yes [id number] 10mg Take 1 Univers (SINGULAIR) 2-03 tablet by ity of 10 mg 00:00: mouth [place] tablet 00 daily. Medical Branch famotidine 2020-09 Yes [id number] 20mg Take 1 U nivers (PEPCID) 20 2-03 tablet by ity of mg tablet 00:00: mouth 2 [place] 00 (two) Medical times Branch daily. cetirizine 2020-09 Yes [id number] 10mg Take 1 U nivers (ZYRTEC) 10 2-03 tablet by ity of mg tablet 00:00: mouth [place] 00 daily. Medical Branch EPINEPHrine 2020-09- No [id number] .3mg 0.3 mL by Univers (EPIPEN) 10-09 12-04 Intramuscu ity of 0.3 mg/0.3 00:00: 05:59 lar route [place] mL 00 :00 once now Medical injection for 1 Branch dose. ondansetron 2020-09 Yes [id number] 4mg Take 1 Univers (ZOFRAN 0-15 tablet by ity of ODT) 4 mg 00:00: mouth [place] disintegrat 00 every 8 Medic al ing tablet (eight) Branch hours as needed for Nausea and Vomiting (N/V). cetirizine Yes [id number] 10mg Take 1 U nivers 10 mg 8-06 tablet by ity of tablet 00:00: mouth 2 [place] (two) Medical times Branch daily. atorvastati Yes TAKE 1 Univ ers n 20 mg 7-24 TABLET BY ity of tablet 00:00: MOUTH [place] 00 EVERY DAY Medical Branch DIRECTED albuterol Yes [id number] 2{puff} Inhale 2 Univers 90 6-25 Puffs ity of mcg/actuati 00:00: every 6 Jeth[place] as on inhaler 00 (six) Medical hours as Branch needed for Wheezing or Shortness of Breath. famotidine Yes [id number] 40mg Take 1 Univers (PEPCID) 40 6-23 tablet by ity of mg tablet 00:00: mouth 00 daily. Medical Branch dicyclomine Yes 10mg Take 10 mg Univers (BENTYL) 10 6-19 by mouth 4 it y of mg capsule 13:06: (four) [place] 49 times Medical daily. Branch docusate Yes [id number] 100mg Take 1 U nivers 100 mg 6-19 capsule by ity of capsule 00:00: mouth 2 [place] 00 (two) Medical times Branch daily as needed for Constipati on. cyclobenzap Yes TAKE 1 Univ ers rine 10 mg 5-06 TABLET BY ity of tablet 00:00: MOUTH AT [place] 00 BEDTIME Medical DO NOT Branch DRIVE WITH MUSCLE RELAXER ondansetron Yes [id number] 4mg Take 1 Univers 4 mg 1-23 [...] 0-28 (2) ity of tablet 00:00: TABLET(S) BY MOUTH Medical EVERY Branch MORNING. VENTOLIN Yes INHALE ONE Uni vers HFA 90 06-04 (1) ity of mcg/actuati 00:00: PUFF(S) BY [place] on inhaler 00 MOUTH Medical EVERY FOUR Branch HOURS. fluticasone Yes INSTILL Uni vers propionate 06-04 ONE (1) ity of 50 00:00: SPRAY(S) [place] mcg/actuati 00 INTO EACH Med ical on nasal NOSTRIL Branch spray TWICE A DAY. proMETHazin Yes [id number] 25mg Take 1 Univers e 25 mg 6-23 tablet by ity of tablet 00:00: mouth [place] [id number] every 6 Medical (six) Branch hours as needed for Nausea and Vomiting (N/V). hydrOXYzine 2018-09 Yes Univer s 25 mg 2-06 ity of capsule 00:00: [address] STELARA 45 2018-09 Yes INJECT Unive rs mg/0.5 mL 1-26 45MG (1 ity of SC 00:00: SYRINGE) [place] injection 00 SUBCUTANEO Medi abhishek USLY EVERY Branch 8 WEEKS. Immunizations Ordered Filled Immunization Date Status Comments Sour e Immunization Name Name Influenza Virus 2020-06-23 Completed Universit y of Vaccine Quad .5 mL 00:00:00 [facility] 6+ [place] Branch Influenza Virus 2019-08-06 Completed Universit y of Vaccine 00:00:00 [facility] Vital Signs Vital Name Observation Time Observation Value Comments Source Heart rate 2021-08-08 17:02:00 79 /min [facility] Body temperature 2021-08-08 17:02:00 36.67 [place] [facility] Respiratory rate 2021-08-08 17:02:00 16 /min [facility] Body height 2021-08-08 17:02:00 160 cm [facility] Body weight 2021-08-08 17:02:00 77.066 kg [facility] BMI 2021-08-08 17:02:00 30.10 kg/m2 [facility] Oxygen saturation in 2021-08-08 17:02:00 100 /min [facility] Arterial blood by [facility] Pulse oximetry Branch Procedures This patient has no known procedures. Encounters Start End Encounter Admission Attending Care Care Encounter Source Date/Time Date/Time Type Type Clinicians Facility Department ID 2021-08-08 2021-08-08 Office MONROE Mercado [id number] [facility] 10:03:35 11:56:31 Visit Catrachita TEE [id number] ity of IALTY [id number] [facility] [id number] [facility] [place] AND LOZA 056 Branch [facility] 2020-03-19 2020-03-19 Orders Doctor SONJA [id number] 00:00:00 00:00:00 Only Unassigned, DEXTER [id number] [facility] [id number] 2020-02-28 2020-02-28 Transition [place] [id number] 00:00:00 00:00:00 of Care Marley Castano [id number] [place] [id number] 2020-02-23 2020-02-27 [facility] Magalys Carreno [id number] 21:57:28 16:56:00 Encounter Michael Quiles [id number] [id number] 2020-01-31 2020-02-02 [facility] Annamaria Cardenas [facility] [id number]. [id number] 13:56:16 12:50:00 Encounter Keegan Owen [id number] [place] [id number] [place] [id number] 2020-01-31 2020-01-31 Orders Doctor CASILLAS [id number] 00:00:00 00:00:00 Only Unassigned, DEXTER [id number] [place] [facility] [id number] Results This patient has no known results.
[2021-08-24] MEDS ORDERED: FAMOTIDINE 20 MG/2 ML VIAL IV ONE (10:53)
[2021-08-24] MEDS ORDERED: METHYLPREDNISOLONE 125 MG INJ ONE (10:53)
[2021-08-24] MEDS ORDERED: DIPHENHYDRAMINE 50 MG/ML VIAL ONE (10:53)
[2021-08-24] MEDS ORDERED: NA CHLORIDE 0.9% 1,000 ML ONE (10:54)
--- NOTE | 2021-08-24 15:35 | ER ---
Nurse's Notes [facility] Name: Sowmya Juarez Age: 36 yrs Sex: Female : 1985 Arrival Date: 08/24/2021 Time: 10:49 Bed 3 Private MD: Diagnosis: Angioneurotic edema, initial encounter Presentation: 08/24 10:57 Chief complaint: Patient states: Putting presents under the tree and throat started jl7 itching and swelling, administered epi x 2 in bilateral legs, started at 1015. Coronavirus screen: At this time, the client does not indicate any symptoms associated with coronavirus-19. Ebola Screen: No symptoms or risks identified at this time. Onset: The symptoms/episode began/occurred acutely. Anaphylaxis evaluation, angioedema. Initial Sepsis Screen: Does the patient meet any 2 criteria? No. Patient's initial sepsis screen is negative. Does the patient have a suspected source of infection? No. Patient's initial sepsis screen is negative. Risk Assessment: Do you want to hurt yourself or someone else? Patient reports no desire to harm self or others. Onset of symptoms was August 24, 2021 at 10:15. 10:57 Method Of Arrival: Wheelchair jl7 10:57 Acuity: KALYN 2 jl7 Triage Assessment: 10:59 General: Appears in no apparent distress. uncomfortable, Behavior is cooperative, jl7 appropriate for age, anxious. Pain: Denies pain. EENT: Oral mucosa is moist. Neuro: Level of Consciousness is awake, alert, obeys commands, Oriented to person, place, time, situation. Cardiovascular: Patient's skin is warm and dry. Respiratory: Airway is patent Respiratory effort is even, unlabored, Respiratory pattern is regular, symmetrical. Derm: Skin is pink, warm \T\ dry. CREW ATTENDANT: 10:59 LMP N/A - Hysterectomy vg1 Historical: - Allergies: 10:59 Compazine; jl 10:59 Prochlorperazine; jl 10:59 prochlorperazine Edisylate; jl 10:59 Prochlorperazine Maleate; jl7 - PMHx: 10:59 Bipolar disorder; Crohn's; Hyperlipidemia; Hypertension; Migraines; jl7 - PSHx: 10:59 Appendectomy; section; Cholecystectomy; Total abdominal hysterectomy; jl7 - Immunization history:: Adult Immunizations unknown. - Social history:: Smoking status: unknown. - Family history:: not pertinent. - Hospitalizations: : No recent hospitalization is reported. Screenin:02 Abuse screen: Denies threats or abuse. Denies injuries from another. Nutritional jl7 screening: No deficits noted. Tuberculosis screening: No symptoms or risk factors identified. Fall Risk IV access (20 points). Total Nation Fall Scale indicates No Risk (0-24 pts). Assessment: 10:55 Reassessment: Pt's jaw and tongue noted to be deviated to the right, once 50 mg jl7 Benadryl IVP was administered and flushed the pt's jaw and tongue noted to relax immediately post administration. 11:30 Reassessment: Pt ambulated with steady gate to restroom. jl7 12:57 Reassessment: Patient appears in no apparent distress at this time. Patient and/or jl7 family updated on plan of care and expected duration. Pain level reassessed. Patient is alert, oriented x 3, equal unlabored respirations, skin warm/dry/pink. 14:32 Reassessment: Patient appears in no apparent distress at this time. Patient and/or vg1 family updated on plan of care and expected duration. Pain level reassessed. Patient is alert, oriented x 3, equal unlabored respirations, skin warm/dry/pink. Patient states feeling better. Vital Signs: 10:57 BP 167 / 93; Pulse 95; Resp 19; Temp 97.9; Pulse Ox 100% ; jl7 10:59 Weight 76.2 kg; Height 5 ft. 3 in. (160.02 cm); vg1 11:52 BP 121 / 63; Pulse 59; Resp 15; Pulse Ox 97% ; jl7 12:57 BP 152 / 63; Pulse 78; Resp 15; Pulse Ox 97% ; jl7 13:45 BP 142 / 89; Pulse 93; Resp 15; Pulse Ox 99% ; jl7 14:30 BP 132 / 83; Pulse 87; Resp 15; Pulse Ox 96% ; jl7 15:00 BP 130 / 81; Pulse 68; Resp 15; Pulse Ox 96% ; jl7 15:49 BP 128 / 66; Pulse 73; Resp 15; Pulse Ox 97% ; jl7 10:59 Body Mass Index 29.76 (76.20 kg, 160.02 cm) vg1 ED Course: 10:49 Patient arrived in ED. ds1 10:50 Antwan Mejia MD is Attending Physician. mark 10:54 Inserted saline lock: 20 gauge in right antecubital area, using aseptic technique. vg1 10:57 Kalpesh Arce, RN is Primary Nurse. jl7 10:59 Triage completed. jl7 10:59 Arm band placed on right wrist. jl7 11:00 Patient has correct armband on for positive identification. Bed in low position. Call jl7 light in reach. Side rails up X 1. information services tech on. Pulse ox on. NIBP on. Warm blanket given. 15:49 No provider procedures requiring assistance completed. IV discontinued, intact, jl7 bleeding controlled, No redness/swelling at site. Pressure dressing applied. Administered Medications: 10:55 Drug: Benadryl (diphenhydrAMINE) 50 mg Route: IVP; Site: right antecubital; vg1 10:57 Drug: Pepcid (famotidine) 20 mg Route: IVP; Site: right antecubital; vg1 10:59 Drug: SOLU-Medrol (methylPrednisoLONE) 80 mg Route: IVP; Site: right antecubital; vg1 11:15 Not Given (Physician Discretion): Racemic EPINPHrine 0.5 ml Inhalation once jl7 11:31 CANCELLED (Physician Discretion): SOLU-Medrol (methylPREDNISolone sodium succinate) 80 vg1 mg IM once Outcome: 15:35 Discharge ordered by . rn 15:49 Discharged to home ambulatory. jl7 15:49 Condition: stable 15:49 Discharge instructions given to patient, Instructed on discharge instructions, follow up and referral plans. medication usage, Demonstrated understanding of instructions, follow-up care, medications, Prescriptions given X 1. 15:50 Patient left the ED. jl7 Signatures: Kanika Castano ds1 Antwan Mejia MD MD rn Leal, Jahala, RN RN jl7 Sowmya Wong Victoria, RN RN vg1
--- NOTE | 2021-08-24 15:36 | EDPHYS ---
Physician Documentation [facility] Name: Sowmya Juarez Age: 36 yrs Sex: Female : 1985 Arrival Date: 08/24/2021 Time: 10:49 Bed 3 Private MD: ED Physician Antwan Mejia HPI: 08/24 10:53 This 36 yrs old Female presents to ER via Unassigned with complaints of Allergic rn Reaction. 10:53 The patient presents with difficulty swallowing, hoarse voice. Onset: The rn symptoms/episode began/occurred just prior to arrival. Associated signs and symptoms: Pertinent negatives: chest pain, fever, shortness of breath, Syncope vomiting. Possible causes: The patient has no known obvious cause for the symptoms. At home the patient or guardian has treated the symptoms with EpiPen. Severity of symptoms: At their worst the symptoms were moderate in the emergency department the symptoms are unchanged. The patient has experienced similar episodes in the past. The patient has been recently seen by a physician:. Patient reports sudden onset of hoarse voice and difficulty swallowing, has happened before and has been diagnosed with mast cell disorder. States gave herself 2 epi shots within 15 minutes of each other. Symptoms have not gotten worse but not improving either. States this is normal for and when she gets steroids and Benadryl she feels better. No other acute exposure.. 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 - Social history:: Smoking status: unknown. - Family history:: not pertinent. - Hospitalizations: : No recent hospitalization is reported. ROS: 10:53 Constitutional: Negative for fever, chills, and weight loss, Eyes: Negative for injury, rn pain, redness, and discharge, ENT: Positive for subjective throat swelling Neck: Negative for injury, pain, and swelling, Cardiovascular: Negative for chest pain, palpitations, and edema, Respiratory: Negative for shortness of breath, cough, wheezing, and pleuritic chest pain, Abdomen/GI: Negative for abdominal pain, nausea, vomiting, diarrhea, and constipation, Back: Negative for injury and pain, MS/Extremity: Negative for injury and deformity, Skin: Negative for injury, rash, and discoloration, Neuro: Negative for headache, weakness, numbness, tingling, and seizure. Exam: 10:53 Constitutional: This is a well developed, well nourished patient who is awake, alert, rn anxious Head/Face: Normocephalic, atraumatic. Eyes: Periorbital areas with no swelling, redness, or edema. ENT: Mild tongue swelling. No stridor. Neck: Trachea midline, no thyromegaly or masses palpated, and no cervical lymphadenopathy. Supple, full range of motion without nuchal rigidity, or vertebral point tenderness. No Meningismus. Cardiovascular: Tachycardic, regular. No pulse deficits. Respiratory: No increased work of breathing, no retractions or nasal flaring. Abdomen/GI: Soft, non-tender Skin: Warm, dry, no urticaria MS/ Extremity: Pulses equal, no cyanosis. Neuro: Awake and alert, GCS 15, oriented to person, place, time, and situation. Cranial nerves II-XII grossly intact. Motor strength 5/5 in all extremities. Sensory grossly intact. Cerebellar exam normal. Normal gait. Vital Signs: 10:57 BP 167 / 93; Pulse 95; Resp 19; Temp 97.9; Pulse Ox 100% ; jl7 10:59 Weight 76.2 kg; Height 5 ft. 3 in. (160.02 cm); vg1 11:52 BP 121 / 63; Pulse 59; Resp 15; Pulse Ox 97% ; jl7 12:57 BP 152 / 63; Pulse 78; Resp 15; Pulse Ox 97% ; jl7 13:45 BP 142 / 89; Pulse 93; Resp 15; Pulse Ox 99% ; jl7 14:30 BP 132 / 83; Pulse 87; Resp 15; Pulse Ox 96% ; jl7 15:00 BP 130 / 81; Pulse 68; Resp 15; Pulse Ox 96% ; jl7 15:49 BP 128 / 66; Pulse 73; Resp 15; Pulse Ox 97% ; jl7 10:59 Body Mass Index 29.76 (76.20 kg, 160.02 cm) vg1 MDM: 10:52 Patient medically screened. rn 15:32 Differential diagnosis: anaphylaxis, angioedema, Mastocystosis. Data reviewed: vital rn signs, nurses notes, old medical records, and as a result, I will discharge patient. Counseling: I had a detailed discussion with the patient and/or guardian regarding: the historical points, exam findings, and any diagnostic results supporting the discharge/admit diagnosis, the need for outpatient follow up, to return to the emergency department if symptoms worsen or persist or if there are any questions or concerns that arise at home. Response to treatment: the patient's symptoms have markedly improved after treatment, the patient's condition has returned to base line, the patient is now symptom free, and as a result, I will discharge patient. Special discussion: I discussed with the patient/guardian in detail that at this point there is no indication for admission to the hospital. It is understood, however, that if the symptoms persist or worsen the patient needs to return immediately for re-evaluation. Based on the history and exam findings, there is no indication for further emergent testing or inpatient evaluation. I discussed with the patient/guardian the need to see the sea captain for further evaluation of the symptoms. ED course: Pt back to baseline, no complaints, tolerating PO. Observed for 5 hours in ER. Will dc home. Pt states has refills of epipens. . 08/24 10:53 Order name: IV Start; Complete Time: 11:00 rn 08/24 10:53 Order name: Cardiac monitoring; Complete Time: 11:15 rn 08/24 10:53 Order name: O2 Sat Monitoring; Complete Time: 11:00 rn Administered Medications: 10:55 Drug: Benadryl (diphenhydrAMINE) 50 mg Route: IVP; Site: right antecubital; vg1 10:57 Drug: Pepcid (famotidine) 20 mg Route: IVP; Site: right antecubital; vg1 10:59 Drug: SOLU-Medrol (methylPrednisoLONE) 80 mg Route: IVP; Site: right antecubital; vg1 11:15 Not Given (Physician Discretion): Racemic EPINPHrine 0.5 ml Inhalation once jl7 11:31 CANCELLED (Physician Discretion): SOLU-Medrol (methylPREDNISolone sodium succinate) 80 vg1 mg IM once Disposition Summary: 08/24/21 15:35 Discharge Ordered Location: Home rn Problem: an acute exacerbation rn Symptoms: have improved rn Condition: Stable rn Diagnosis - Angioneurotic edema, initial encounter rn Followup: rn - With: Private Physician - When: As needed - Reason: Recheck today's complaints, Re-evaluation by your physician Discharge Instructions: - Discharge Summary Sheet rn - Angioedema rn Forms: - Medication Reconciliation Form rn - Thank You Letter rn - Antibiotic zinc furnace charger - Prescription Opioid Use rn Prescriptions: - Prednisone 20 mg Oral Tablet - take 3 tablets by ORAL route once daily for 5 days; 15 tablet; Refills: 0, rn Product Selection Permitted Signatures: Antwan Mejia MD MD rn Leal, Jahala, RN RN jl7 Lina Chacon RN RN vg1 Corrections: (The following items were deleted from the chart) 10:58 10:53 Constitutional: This is a well developed, well nourished patient who is awake, rn alert, anxious Head/Face: Normocephalic, atraumatic. Eyes: Periorbital areas with no swelling, redness, or edema. ENT: No tongue swelling. No stridor. Neck: Trachea midline, no thyromegaly or masses palpated, and no cervical lymphadenopathy. Supple, full range of motion without nuchal rigidity, or vertebral point tenderness. No Meningismus. Cardiovascular: Tachycardic, regular. No pulse deficits. Respiratory: No increased work of breathing, no retractions or nasal flaring. Abdomen/GI: Soft, non-tender Skin: Warm, dry, no urticaria MS/ Extremity: Pulses equal, no cyanosis. Neuro: Awake and alert, GCS 15, oriented to person, place, time, and situation. Cranial nerves II-XII grossly intact. Motor strength 5/5 in all extremities. Sensory grossly intact. Cerebellar exam normal. Normal gait. rn 11:31 10:53 SOLU-Medrol (methylPREDNISolone sodium succinate) 80 mg IM once ordered. rn vg1
[2021-08-24 16:08] VITALS: TEMP 97.9
[2021-08-24 16:22] VITALS: BP 128/66; O2SAT 97
== END 2021-08-24 15:50 | disposition home or self-care (01) ==
LOC: ER 10:49
DX: T78.3XXA Angioneurotic edema, initial encounter (principal); I10 Essential (primary) hypertension; Z88.8 Allergy status to other drugs, medicaments and biological substances
CPT/HCPCS: 96375; 96374; 99284; J1200; J7030; J2930

== ENCOUNTER 2021-08-29 16:30 | Emergency (ER) | payer OTHER ==
[~2021-08-29 16:30] MED LIST: DIPHENHYDRAMINE 50 MG/ML VIAL ONE; FAMOTIDINE 20 MG/2 ML VIAL IV ONE; METHYLPREDNISOLONE 125 MG INJ ONE
--- OUTSIDE RECORDS SUMMARY | 2021-08-29 16:34 | XMS REPORT | Continuity of Care Document ---
:1985 Author Organization [facility] t Address [address] [place] [address] Dr. [address] [place] [address] Care Team Providers Name Role Phone Amadou [...] Allergic Disease Active Unive rs reaction, reaction, 02-28 ity of initial initial 00:00: [place] encounter [...] of most most 00:00: g of this [place] recent recent 00 note Medical episode episode might be Branch depressed depressed different from the original. ICD10 Diagnosis Term [place] Selector Utility Allergies, Adverse Reactions, Alerts Allergy Allergy [...] of tobacco Cigarette Smoker University of use [facility] Exposure to Not sure University of SARS-CoV-2 (event) [facility] Branch History SDOH University o f Alcohol Frequency [facility] Branch History SDPR University o f Alcohol Std Drinks [facility] Branch History [facility] University o f Alcohol Binge [facility] Branch Alcohol intake 2021-08-08 2021-08-08 Current drinker Unive rsity of 00:00:00 00:00:00 of alcohol [facility] (finding) Branch Cigarettes smoked 2018-05-11 2018-05-11 Univers ity of current (pack per 00:00:00 00:00:00 [facility] ) - Reported Branch Cigarette 2018-05-11 2018-05-11 University of pack-years 00:00:00 00:00:00 [facility] Tobacco use and 2018-05-11 2018-05-11 Never used Universit y of exposure 00:00:00 00:00:00 [facility] Alcohol Comment 2018-05-11 2018-05-11 Occasional Universit y of 00:00:00 00:00:00 [facility] Sex Ass[birth year] Universit y of 00:00:00 00:00:00 [facility] Smoking Status Start Date Stop Date Source Former smoker 2018-05-11 00:00:00 2018-05-11 00:00:00 [facility] Medications Ordered Filled Start Stop Current Ordering Indication Dosage Frequency Signature Comments Components Source Medication Medication Date Date Medication? Clinician (SIG) Name Name christiane 2020-09 Yes [id number] 10mg Take 1 Univers (SINGULAIR) 2-03 tablet by ity of 10 mg 00:00: mouth [place] tablet 00 daily. Medical Branch famotidine 2020-09 Yes [id number] 20mg Take 1 U nivers (PEPCID) 20 2-03 tablet by ity of mg tablet 00:00: mouth 2 [place] 00 (two) Medical times Branch daily. cetirizine 2020-09 Yes [id number] 10mg Take 1 U nivers (ZYRTEC) 10 2-03 tablet by ity of mg tablet 00:00: mouth [place] 00 daily. Medical Branch EPINEPHrine 2020-09- No [id number] .3mg 0.3 mL by Univers (EPIPEN) 10-09 12-04 Intramuscu ity of 0.3 mg/0.3 00:00: 05:59 lar route [place] mL 00 :00 once now Medical injection for 1 Branch dose. ondansetron 2020-09 Yes [id number] 4mg Take 1 Univers (ZOFRAN 0-15 tablet by ity of ODT) 4 mg 00:00: mouth [place] disintegrat 00 every 8 Medic al ing tablet (eight) Branch hours as needed for Nausea and Vomiting (N/V). cetirizine Yes [id number] 10mg Take 1 U nivers 10 mg 8-06 tablet by ity of tablet 00:00: mouth 2 [place] (two) Medical times Branch daily. atorvastati Yes TAKE 1 Univ ers n 20 mg 7-24 TABLET BY ity of tablet 00:00: MOUTH [place] 00 EVERY DAY Medical Branch DIRECTED albuterol Yes [id number] 2{puff} Inhale 2 Univers 90 6-25 Puffs ity of mcg/actuati 00:00: every 6 Jeth[place] as on inhaler 00 (six) Medical hours as Branch needed for Wheezing or Shortness of Breath. famotidine Yes [id number] 40mg Take 1 Univers (PEPCID) 40 6-23 tablet by ity of mg tablet 00:00: mouth 00 daily. Medical Branch dicyclomine Yes 10mg Take 10 mg Univers (BENTYL) 10 6-19 by mouth 4 it y of mg capsule 13:06: (four) [place] 49 times Medical daily. Branch docusate Yes [id number] 100mg Take 1 U nivers 100 mg 6-19 capsule by ity of capsule 00:00: mouth 2 [place] 00 (two) Medical times Branch daily as needed for Constipati on. 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 [...] Branch spray TWICE A DAY. proMETHazin Yes [id number] 25mg Take 1 Univers e 25 mg 6-23 tablet by ity of tablet 00:00: mouth [place] [address] every 6 Medical (six) Branch hours as needed for Nausea and Vomiting (N/V). hydrOXYzine 2018-09 Yes Univer s 25 mg 2-06 ity of capsule 00:00: [place] 00 [facility] Branch STELARA 45 2018-09 Yes INJECT Unive rs mg/0.5 mL 1-26 45MG (1 ity of [place] 00:00: SYRINGE) [place] injection 00 SUBCUTANEO Medi abhishek USLY EVERY Branch 8 WEEKS. Immunizations Ordered Filled Immunization Date Status Comments Sour e Immunization Name Name Influenza Virus 2020-06-23 Completed Universit y of Vaccine Quad .5 mL 00:00:00 [facility] 6+ MO Branch Influenza Virus 2019-08-06 Completed Universit y of Vaccine 00:00:00 [facility] Vital Signs Vital Name Observation Time Observation Value Comments Source Heart rate 2021-08-08 17:02:00 79 /min [facility] Body temperature 2021-08-08 17:02:00 36.67 Lashawn [facility] Respiratory rate 2021-08-08 17:02:00 16 /min [facility] Body height 2021-08-08 17:02:00 160 cm [facility] Body weight 2021-08-08 17:02:00 77.066 kg [facility] BMI 2021-08-08 17:02:00 30.10 kg/m2 [facility] Oxygen saturation in 2021-08-08 17:02:00 100 /min [facility] Arterial blood by [facility] Pulse oximetry Branch Procedures This patient has no known procedures. Encounters Start End Encounter Admission Attending Care Care Encounter Source Date/Time Date/Time Type Type Clinicians Facility Department ID 2021-08-08 2021-08-08 Office MONROE Mercado [id number] [facility] [place] [facility] 10:03:35 11:56:31 Visit Catrachita TEE [id number] ity of IALTY [id number] [facility] [id number] [facility] AND LOZA 056 Branch [facility] 2020-03-19 2020-03-19 Orders Doctor SONJA [id number] 00:00:00 00:00:00 Only Unassigned, DEXTER [id number] [place] [facility] [id number] 2020-02-28 2020-02-28 Transition TelloM[place] [id number] 00:00:00 00:00:00 of Care Marley Castano [id number] [place] [id number] 2020-02-23 2020-02-27 [facility] Magalys Carreno [id number] 21:57:28 16:56:00 Encounter Michael Quiles [id number] [place] [id number] 2020-01-31 2020-02-02 [facility] Annamaria Cardenas [facility] [id number]. [id number] 13:56:16 12:50:00 Encounter Keegan Owen [id number] [place] [id number] [place] [id number] 2020-01-31 2020-01-31 Orders Doctor SONJA [id number] 00:00:00 00:00:00 Only Unassigned, DEXTER [id number] [place] [facility] [id number] Results This patient has no known results.
--- NOTE | 2021-08-29 17:53 | ER ---
Nurse's Notes [facility] Name: Sowmya Juarez Age: 36 yrs Sex: Female : 1985 Arrival Date: 08/29/2021 Time: 16:31 Bed 16 Private MD: Diagnosis: Personal history of anaphylaxis;Acute Anaphylactic Reaction Unspecified Presentation: 08/29 16:25 Chief complaint: Patient states: Sudden onset of difficulty breathing that began just ss prior to arrival. Pt reports self administering epi pen 5 minutes ago. Reports some relief since administration. Pt states that this is happening more and more frequently and is working with a doctor to figure out what is going on. Coronavirus screen: Client denies travel out of the [place] in the last 14 days. Ebola Screen: Patient denies exposure to infectious person. Patient denies travel to an Ebola-affected area in the 21 days before illness onset. Initial Sepsis Screen: Does the patient meet any 2 criteria? No. Patient's initial sepsis screen is negative. Does the patient have a suspected source of infection? No. Patient's initial sepsis screen is negative. Risk Assessment: Do you want to hurt yourself or someone else? Patient reports no desire to harm self or others. Onset of symptoms was August 29, 2021. 16:25 Method Of Arrival: Wheelchair ss 16:25 Acuity: KALYN 2 ss Historical: - Allergies: 16:45 Compazine; ss 16:45 Prochlorperazine; ss 16:45 prochlorperazine Edisylate; ss 16:45 Prochlorperazine Maleate; ss - PMHx: 16:45 Bipolar disorder; Hypertension; Migraines; Hyperlipidemia; Crohn's; ss - PSHx: 16:45 Appendectomy; section; Cholecystectomy; Total abdominal hysterectomy; ss Screenin:55 Abuse screen: Denies threats or abuse. Nutritional screening: No deficits noted. tw2 Tuberculosis screening: No symptoms or risk factors identified. Fall Risk None identified. Assessment: 17:14 Reassessment: Patient appears in no apparent distress at this time. No changes from tw2 previously documented assessment. Patient and/or family updated on plan of care and expected duration. Pain level reassessed. Patient is alert, oriented x 3, equal unlabored respirations, skin warm/dry/pink. 18:28 Reassessment: Patient appears in no apparent distress at this time. No changes from tw2 previously documented assessment. Patient and/or family updated on plan of care and expected duration. Pain level reassessed. Patient is alert, oriented x 3, equal unlabored respirations, skin warm/dry/pink. Vital Signs: 16:25 BP 175 / 89; Pulse 106; Resp 24; Temp 98.0(TE); Pulse Ox 100% on R/A; Weight 76.2 kg; ss Height 5 ft. 3 in. (160.02 cm); Pain 0/10; 17:14 BP 142 / 74; Pulse 84; Resp 17; Pulse Ox 97% on R/A; tw2 18:27 BP 142 / 74; Pulse 83; Resp 17; Pulse Ox 97% on R/A; tw2 16:25 Body Mass Index 29.76 (76.20 kg, 160.02 cm) ss ED Course: 16:30 Inserted saline lock: 20 gauge in right antecubital area, using aseptic technique. ss Blood collected. Patient maintains SpO2 saturation greater than 95% on room air. 16:31 Patient arrived in ED. jr8 16:31 Zac Rubio PA is PHCP. jr8 16:31 Ronen Galeana MD is Attending Physician. jr8 16:37 Farideh Florez RN is Primary Nurse. ss 16:45 Triage completed. ss 17:13 Miscellaneous Test Lab Sent. tw2 Administered Medications: 16:32 Drug: Pepcid (famotidine) 20 mg Route: IVP; Site: right antecubital; ss 17:14 Follow up: Response: No adverse reaction tw2 16:35 Drug: SOLU-Medrol (methylPrednisoLONE) 125 mg Route: IVP; Site: right antecubital; ss 17:14 Follow up: Response: No adverse reaction; Marked relief of symptoms tw2 16:38 Drug: Benadryl (diphenhydrAMINE) 50 mg Route: IVP; Site: right antecubital; ss 17:13 Follow up: Response: No adverse reaction; Marked relief of symptoms tw2 Outcome: 17:53 Discharge ordered by . jr8 18:28 Discharged to home ambulatory. tw2 18:28 Condition: stable 18:28 Discharge instructions given to patient, Instructed on discharge instructions, follow up and referral plans. medication usage, Demonstrated understanding of instructions, follow-up care, medications, Prescriptions given X 1. 18:28 Patient left the ED. tw2 Signatures: Farideh Florez RN RN Zac Rubio PA PA jr8 Fatoumata Sherwood RN RN tw2
--- NOTE | 2021-08-29 17:53 | EDPHYS ---
Physician Documentation [facility] Name: Sowmya Juarez Age: 36 yrs Sex: Female : 1985 Arrival Date: 08/29/2021 Time: 16:31 Bed 16 Private MD: ED Physician Ronen Galeana HPI: 08/29 17:04 This 36 yrs old Female presents to ER via Wheelchair with complaints of Allergic jr8 Reaction. 17:04 Possible causes: The patient has no known obvious cause for the symptoms. At home the jr8 patient or guardian has treated the symptoms with EpiPen. Severity of symptoms: At their worst the symptoms were moderate in the emergency department the symptoms have improved mildly. The patient has experienced similar episodes in the past, a few times. The patient has been recently seen by a physician:. Patient with history of anaphylaxis of unknown origin in past. Has been instructed to give herself epinephrine at home when this occurs. Stated that it started again today. Was having moderate facial swelling before arrival but now has improved. Patient currently under care of allergenist. . Historical: - Allergies: 16:45 Compazine; ss 16:45 Prochlorperazine; ss 16:45 prochlorperazine Edisylate; ss 16:45 Prochlorperazine Maleate; ss - PMHx: 16:45 Bipolar disorder; Hypertension; Migraines; Hyperlipidemia; Crohn's; ss - PSHx: 16:45 Appendectomy; section; Cholecystectomy; Total abdominal hysterectomy; ss ROS: 17:04 Eyes: Negative for injury, pain, redness, and discharge, ENT: Negative for injury, jr8 pain, and discharge Neck: Negative for injury, pain, and swelling, Cardiovascular: Negative for chest pain, palpitations, and edema, Abdomen/GI: Negative for abdominal pain, nausea, vomiting, diarrhea, and constipation, Back: Negative for injury and pain, MS/Extremity: Negative for injury and deformity, Skin: Negative for injury, rash, and discoloration, Neuro: Negative for headache, weakness, numbness, tingling, and seizure. 17:04 Respiratory: Positive for shortness of breath. Exam: 17:04 Eyes: Pupils equal round and reactive to light, extra-ocular motions intact. Lids and jr8 lashes normal. Conjunctiva and sclera are non-icteric and not injected. Cornea within normal limits. Periorbital areas with no swelling, redness, or edema. ENT: Nares patent. No nasal discharge, no septal abnormalities noted. Tympanic membranes are normal and external auditory canals are clear. Oropharynx with no redness, swelling, or masses, exudates, or evidence of obstruction, uvula midline. Mucous membranes moist. Neck: Trachea midline, no thyromegaly or masses palpated, and no cervical lymphadenopathy. Supple, full range of motion without nuchal rigidity, or vertebral point tenderness. No Meningismus. Cardiovascular: Tachycardic with a normal S1 and S2. No gallops, murmurs, or rubs. Normal PMI, no JVD. No pulse deficits. Respiratory: Lungs have equal breath sounds bilaterally, clear to auscultation and percussion. No rales, rhonchi or wheezes noted. Mild tachypnea present with no increased work of breathing, no retractions or nasal flaring. Abdomen/GI: Soft, non-tender, with normal bowel sounds. No distension or tympany. No guarding or rebound. No evidence of tenderness throughout. Back: No spinal tenderness. No costovertebral tenderness. Full range of motion. Skin: Warm, dry with normal turgor. Normal color with no rashes, no lesions, and no evidence of cellulitis. MS/ Extremity: Pulses equal, no cyanosis. Neurovascular intact. Full, normal range of motion. Neuro: Awake and alert, GCS 15, oriented to person, place, time, and situation. Cranial nerves II-XII grossly intact. Motor strength 5/5 in all extremities. Sensory grossly intact. 17:04 Constitutional: The patient appears alert, awake, anxious. 17:04 Head/face: Noted is swelling, that is mild, of the right jaw. Vital Signs: 16:25 BP 175 / 89; Pulse 106; Resp 24; Temp 98.0(TE); Pulse Ox 100% on R/A; Weight 76.2 kg; ss Height 5 ft. 3 in. (160.02 cm); Pain 0/10; 17:14 BP 142 / 74; Pulse 84; Resp 17; Pulse Ox 97% on R/A; tw2 18:27 BP 142 / 74; Pulse 83; Resp 17; Pulse Ox 97% on R/A; tw2 16:25 Body Mass Index 29.76 (76.20 kg, 160.02 cm) ss MDM: 16:31 Patient medically screened. jr8 17:49 Data reviewed: vital signs, nurses notes, lab test result(s). Data interpreted: Pulse jr8 oximetry: on room air is 97 %. Interpretation: normal. Counseling: I had a detailed discussion with the patient and/or guardian regarding: the historical points, exam findings, and any diagnostic results supporting the discharge/admit diagnosis, lab results, the need for outpatient follow up, an allergy/implementation specialist, to return to the emergency department if symptoms worsen or persist or if there are any questions or concerns that arise at home. Response to treatment: the patient's symptoms have resolved after treatment. ED course: Patients symptoms have completely resolved. VS stable. Patient has epi pens at home. Will continue daily home meds and epi if needed. Will go home on steroids. To come back immediately if worse. Patient good with plan and will f/u with her PCP otherwise . 08/29 16:50 Order name: Miscellaneous Test Lab; Complete Time: 17:49 EDMS 08/29 16:31 Order name: IV; Complete Time: 16:39 jr8 Administered Medications: 16:32 Drug: Pepcid (famotidine) 20 mg Route: IVP; Site: right antecubital; ss 17:14 Follow up: Response: No adverse reaction tw2 16:35 Drug: SOLU-Medrol (methylPrednisoLONE) 125 mg Route: IVP; Site: right antecubital; ss 17:14 Follow up: Response: No adverse reaction; Marked relief of symptoms tw2 16:38 Drug: Benadryl (diphenhydrAMINE) 50 mg Route: IVP; Site: right antecubital; ss 17:13 Follow up: Response: No adverse reaction; Marked relief of symptoms tw2 Disposition Summary: 08/29/21 17:53 Discharge Ordered Location: Home jr8 Problem: new jr8 Symptoms: are resolved jr8 Condition: Stable jr8 Diagnosis - Personal history of anaphylaxis jr8 - Acute Anaphylactic Reaction Unspecified jr8 Followup: jr8 - With: Private Physician - When: 2 - 3 days - Reason: Recheck today's complaints, Continuance of care, Re-evaluation by your physician Discharge Instructions: - Discharge Summary Sheet jr8 - Anaphylactic Reaction, Adult jr8 Forms: - Medication Reconciliation Form jr8 - Thank You Letter jr8 - Antibiotic Education jr8 - Prescription Opioid Use jr8 Prescriptions: - Prednisone 20 mg Oral Tablet - take 1 tablet by ORAL route once daily for 5 days; 5 tablet; Refills: 0, jr8 Product Selection Permitted Addendum: 08/31/2021 18:51 Co-signature as Attending Physician, Ronen Galeana MD. m a2 Signatures: Dispatcher [employer] Farideh Louis, BHAVIK RN ss Zac Rubio PA PA jr8 Ronen Galeana MD MD ma2 Fatoumata Sherwood RN tw2
[2021-08-29 18:38] VITALS: BP 142/74; O2SAT 97
== END 2021-08-29 18:28 | disposition home or self-care (01) ==
LOC: ER 16:30
DX: R22.9 Localized swelling, mass and lump, unspecified (principal); R06.02 Shortness of breath; Z91.09 Other allergy status, other than to drugs and biological substances; Z88.8 Allergy status to other drugs, medicaments and biological substances
CPT/HCPCS: 83520; 96375; 96374; 99284; J1200; J2930

== ENCOUNTER 2021-09-06 15:16 | Emergency (ER) | payer OTHER ==
--- OUTSIDE RECORDS SUMMARY | 2021-09-06 15:19 | XMS REPORT | Continuity of Care Document ---
:1985 Author Organization [facility] t Address [address] [place] [address] Dr. [address] [place] [address] Care Team Providers Name Role Phone Amadou [...] Allergic Disease Active Unive rs reaction, reaction, 6- ity of initial initial 00:00: [place] encounter [...] of most most 00:00: g of this [place] recent recent 00 note Medical episode episode might be Branch depressed depressed different from the original. ICD10 Diagnosis Term Pyridine Recovery Operator Utility Allergies, Adverse Reactions, Alerts Allergy Allergy [...] of tobacco Cigarette Smoker University of use [facility] Exposure to Not sure University of SARS-CoV-2 (event) [facility] Branch History SDCT University o f Alcohol Frequency [facility] Branch History [facility] o f Alcohol Std Drinks [facility] Branch History [facility] University o f Alcohol Binge [facility] Branch Alcohol intake 2021-08-08 2021-08-08 Current drinker Unive rsity of 00:00:00 00:00:00 of alcohol [facility] (finding) Branch Cigarettes smoked 2018-05-11 2018-05-11 Univers ity of current (pack per 00:00:00 00:00:00 [facility] ) - Reported Branch Cigarette 2018-05-11 2018-05-11 University of pack-years 00:00:00 00:00:00 [facility] Tobacco use and 2018-05-11 2018-05-11 Never used Universit y of exposure 00:00:00 00:00:00 [facility] Alcohol Comment 2018-05-11 2018-05-11 Occasional Universit y of 00:00:00 00:00:00 [facility] Sex [birth year] Universit y of 00:00:00 00:00:00 [place] [facility] Smoking Status Start Date Stop Date Source Former smoker 2018-05-11 00:00:00 2018-05-11 00:00:00 [facility] Medications Ordered Filled Start Stop Current Ordering Indication Dosage Frequency Signature Comments Components Source Medication Medication Date Date Medication? Clinician (SIG) Name Name christiane 2020-09 Yes [id number] 10mg Take 1 Univers (SINGULAIR) 2-03 tablet by ity of 10 mg 00:00: mouth [place] tablet 00 daily. Medical Branch famotidine 2020-09 Yes [id number] 20mg Take 1 U nivers (PEPCID) 20 2-03 tablet by ity of mg tablet 00:00: mouth 2 [place] 00 (two) Medical times Branch daily. cetirizine 2020-09 Yes [id number] 10mg Take 1 U nivers (ZYRTEC) 10 2-03 tablet by ity of mg tablet 00:00: mouth [place] 00 daily. Medical Branch EPINEPHrine 2020-09- No [id number] .3mg 0.3 mL by Univers (EPIPEN) 10-09 12-04 Intramuscu ity of 0.3 mg/0.3 00:00: 05:59 lar route [place] mL 00 :00 once now Medical injection for 1 Branch dose. ondansetron 2020-09 Yes [id number] 4mg Take 1 Univers (ZOFRAN 0-15 tablet by ity of ODT) 4 mg 00:00: mouth [place] disintegrat 00 every 8 Medic al ing tablet (eight) Branch hours as needed for Nausea and Vomiting (N/V). cetirizine Yes [id number] 10mg Take 1 U nivers 10 mg 8-06 tablet by ity of tablet 00:00: mouth 2 [place] (two) Medical times Branch daily. atorvastati Yes TAKE 1 Univ ers n 20 mg 7-24 TABLET BY ity of tablet 00:00: MOUTH [place] 00 EVERY DAY Medical Branch DIRECTED albuterol Yes [id number] 2{puff} Inhale 2 Univers 90 6-25 Puffs ity of mcg/actuati 00:00: every 6 Jeth[place] as on inhaler 00 (six) Medical hours as Branch needed for Wheezing or Shortness of Breath. famotidine Yes [id number] 40mg Take 1 Univers (PEPCID) 40 6-23 tablet by ity of mg tablet 00:00: mouth 00 daily. Medical Branch dicyclomine Yes 10mg Take 10 mg Univers (BENTYL) 10 6-19 by mouth 4 it y of mg capsule 13:06: (four) [place] 49 times Medical daily. Branch docusate Yes [id number] 100mg Take 1 U nivers 100 mg 6-19 capsule by ity of capsule 00:00: mouth 2 [place] 00 (two) Medical times Branch daily as needed for Constipati on. 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 proMETHazin Yes [id number] 25mg Take 1 Univers e 25 mg 6-23 tablet by ity of tablet 00:00: mouth [place] [id number] every 6 Medical (six) Branch hours as needed for Nausea and Vomiting (N/V). hydrOXYzine 2018-09 Yes Univer s 25 mg 2-06 ity of capsule 00:00: [address] STELARA 45 2018-09 Yes INJECT Unive rs mg/0.5 mL 1-26 45MG (1 ity of [place] 00:00: SYRINGE) [place] injection 00 SUBCUTANEO Medi abhishek USLY EVERY Branch 8 WEEKS. Immunizations Ordered Filled Immunization Date Status Comments Sour e Immunization Name Name Influenza Virus 2020-06-23 Completed Universit y of Vaccine Quad .5 mL 00:00:00 [facility] 6+ MO Branch Influenza Virus 2019-08-06 Completed Universit y of Vaccine 00:00:00 [facility] Vital Signs Vital Name Observation Time Observation Value Comments Source Heart rate 2021-08-08 17:02:00 79 /min [facility] Body temperature 2021-08-08 17:02:00 36.67 Lashawn [facility] Respiratory rate 2021-08-08 17:02:00 16 /min [facility] Body height 2021-08-08 17:02:00 160 cm [facility] Body weight 2021-08-08 17:02:00 77.066 kg [facility] BMI 2021-08-08 17:02:00 30.10 kg/m2 [facility] Oxygen saturation in 2021-08-08 17:02:00 100 /min [facility] Arterial blood by [facility] Pulse oximetry Branch Procedures This patient has no known procedures. Encounters Start End Encounter Admission Attending Care Care Encounter Source Date/Time Date/Time Type Type Clinicians Facility Department ID 2021-08-08 2021-08-08 Office MONROE Mercado [id number] [facility] 10:03:35 11:56:31 Visit Catrachita TEE [id number] ity of IALTY [id number] [facility] [id number] [facility] AND LOZA 0[facility] Branch [facility] 2020-03-19 2020-03-19 Orders Doctor SONJA [id number] 00:00:00 00:00:00 Only Unassigned, DEXTER [id number] [facility] [id number] 2020-02-28 2020-02-28 Transition TelloMuna [id number] 00:00:00 00:00:00 of Care Marley Castano [id number] [place] [id number] 2020-02-23 2020-02-27 [facility] Magalys Carreno [id number] 21:57:28 16:56:00 Encounter Michael Quiles [id number] [id number] 2020-01-31 2020-02-02 [facility] Annamaria Cardenas [facility] [id number]. [id number] 13:56:16 12:50:00 Encounter Keegan Owen [id number] [place] [id number] [place] [id number] 2020-01-31 2020-01-31 Orders Doctor CASILLAS [id number] 00:00:00 00:00:00 Only Unassigned, DEXTER [id number] [place] [id number] Results This patient has no known results.
[2021-09-06] MEDS ORDERED: METHYLPREDNISOLONE 125 MG INJ ONE (16:08)
[2021-09-06 16:30] LABS: BUN Blood Urea Nitrogen 11 mg/dL (7-18); Bicarbonate 25 mmol/L (21-32); Glucose Level 120 mg/dL (74-106); Magnesium 2.4 mg/dL (1.8-2.4); Potassium 3.9 mmol/L (3.5-5.1); Sodium Level 138 mmol/L (136-145)
[2021-09-06 16:38] LABS: Absolute Lymphocytes (CBC) 2.1 K/uL (0.7-4.9); Hematocrit 38.6 % (36.0-45.0); Lymphocytes % 12.1 % (15.3-44.8); MPV 6.5 fL (7.6-11.3); RBC Red Blood Cell Count 4.42 M/uL (3.86-4.86)
--- NOTE | 2021-09-06 17:33 | ER ---
Nurse's Notes [facility] Name: Sowmya Juarez Age: 36 yrs Sex: Female : 1985 Arrival Date: 09/06/2021 Time: 15:19 Bed 19 Private MD: Diagnosis: Personal history of anaphylaxis;Acute allergic reaction Presentation: 09/06 15:26 Chief complaint: EMS states: EMS states patient had an allergic reaction where she felt ae4 like her tongue was swelling up. EMS administered Epinephrine IM and 50 mg Benadryl IV approx 30 minutes prior to arrival. Coronavirus screen: Vaccine status: Patient reports being unvaccinated. Ebola Screen: Patient denies travel to an Ebola-affected area in the 21 days before illness onset. No symptoms or risks identified at this time. 15:26 Method Of Arrival: EMS: [facility] ae4 15:36 Onset: The symptoms/episode began/occurred suddenly. Anaphylaxis evaluation, no signs ae4 or symptoms of anaphylaxis were noted. Initial Sepsis Screen: Does the patient meet any 2 criteria? No. Patient's initial sepsis screen is negative. Does the patient have a suspected source of infection? No. Patient's initial sepsis screen is negative. Risk Assessment: Do you want to hurt yourself or someone else? Patient reports no desire to harm self or others. 15:36 Acuity: KALYN 2 ae4 17:26 Onset of symptoms was September 06, 2021 at 14:00. ae4 Triage Assessment: 15:32 General: Appears uncomfortable, Behavior is cooperative, anxious. Pain: Denies pain. ae4 EENT: No signs and/or symptoms were reported regarding the EENT system. Neuro: Level of Consciousness is awake, alert, obeys commands, Oriented to person, place, time, situation. Cardiovascular: Heart tones S1 S2 present Skin is warm and slightly diaphoretic.. Rhythm is sinus tachycardia. Respiratory: Airway is patent Respiratory effort is even, unlabored, Respiratory pattern is regular, symmetrical, Breath sounds are clear bilaterally. GI: No signs and/or symptoms were reported involving the gastrointestinal system. : No signs and/or symptoms were reported regarding the genitourinary system. Derm: Skin is moist, Skin is flushed. Musculoskeletal: No signs and/or symptoms reported regarding the musculoskeletal system. ADDRESSER: 15:32 LMP N/A - Hysterectomy, February 2021 ae4 Historical: - Allergies: 15:32 Compazine; ae4 15:32 Prochlorperazine; ae4 15:32 prochlorperazine Edisylate; ae4 15:32 Prochlorperazine Maleate; ae4 - PMHx: 15:32 Bipolar disorder; Crohn's; Hyperlipidemia; Hypertension; Migraines; ae4 - PSHx: 15:32 Appendectomy; section; Cholecystectomy; Total abdominal hysterectomy; ae4 - Immunization history:: Adult Immunizations Flu vaccine is not up to date. It has been more than one year since last vaccine. - Social history:: Smoking status: Patient denies any tobacco usage or history of. Screenin:26 Abuse screen: Denies threats or abuse. Nutritional screening: No deficits noted. ae4 Tuberculosis screening: No symptoms or risk factors identified. Fall Risk None identified. Assessment: 15:19 General: Appears. ae4 17:13 Reassessment: Patient appears in no apparent distress at this time. Patient and/or ae4 family updated on plan of care and expected duration. Pain level reassessed. 17:23 Pain: Denies pain. Neuro: Level of Consciousness is awake, alert, obeys commands, ae4 Oriented to person, place, time, situation, Appropriate for age. Cardiovascular: skin is slightly moist. Respiratory: Airway is patent Respiratory effort is even, unlabored, Respiratory pattern is regular, symmetrical, Breath sounds are clear bilaterally. GI: Abdomen is round Patient currently denies nausea. : No signs and/or symptoms were reported regarding the genitourinary system. EENT: No signs and/or symptoms were reported regarding the EENT system. Derm: Skin is flushed. Musculoskeletal: No signs and/or symptoms reported regarding the musculoskeletal system. Vital Signs: 15:26 BP 150 / 90; Pulse 120; Resp 20; Temp 98.8(O); Pulse Ox 100% on R/A; Weight 81.65 kg; ae4 Height 5 ft. 3 in. (160.02 cm); 16:08 BP 129 / 74; Pulse 122; Resp 15; Pulse Ox 97% on R/A; ae4 17:13 BP 144 / 79; Pulse 103; Resp 22; Pulse Ox 96% on R/A; ae4 15:26 Body Mass Index 31.89 (81.65 kg, 160.02 cm) ae4 ED Course: 15:19 Patient arrived in ED. eb 15:19 Zac Rubio PA is PHCP. jr8 15:19 Todd Peña MD is Attending Physician. jr8 15:20 Bed in low position. Call light in reach. Side rails up X 1. groundwater monitoring technician on. Pulse ae4 ox on. NIBP on. 15:25 Stephen Betancur, RN is Primary Nurse. ae4 15:37 Triage completed. ae4 15:37 Arm band placed on right wrist. ae4 16:14 Maintain EMS IV. Dressing intact. Good blood return noted. Site clean \T\ dry. Gauge \T\ ae 4 site: 20 Gauge right AC. IV. 18:14 No provider procedures requiring assistance completed. IV discontinued, intact, ae4 bleeding controlled, No redness/swelling at site. Pressure dressing applied. Administered Medications: 16:09 Drug: SOLU-Medrol (methylPrednisoLONE) 125 mg Route: IVP; Site: right antecubital; ae4 17:12 Follow up: Response: No adverse reaction ae4 Outcome: 17:33 Discharge ordered by . jr8 18:14 Patient left the ED. ae4 19:42 Discharged to home ambulatory. ae4 19:42 Condition: stable 19:42 Discharge instructions given to patient, Instructed on discharge instructions, follow up and referral plans. Demonstrated understanding of instructions. Signatures: Zac Rubio PA PA jr8 Sowmya Wong Stephen Betancur, RN RN ae4 Corrections: (The following items were deleted from the chart) 17:25 17:13 Reassessment: Patient appears in no apparent distress at this time. Patient ae4 and/or family updated on plan of care and expected duration. Pain level reassessed. ae4
--- NOTE | 2021-09-06 17:33 | EDPHYS ---
Physician Documentation [facility] Name: Sowmya Juarez Age: 36 yrs Sex: Female : 1985 Arrival Date: 09/06/2021 Time: 15:19 Bed 19 Private MD: ED Physician Todd Peña HPI: 09/06 16:00 This 36 yrs old Female presents to ER via EMS with complaints of Allergic Reaction. jr8 16:00 Possible causes: The patient has no known obvious cause for the symptoms. Severity of jr8 symptoms: At their worst the symptoms were moderate in the emergency department the symptoms have improved. The patient has experienced similar episodes in the past, several times. This is a 36-year-old female that presented to the emergency room via EMS with complaints of acute onset of allergic reaction. 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 Patient stated that she took her epinephrine pen prior to arrival and that EMS gave her Benadryl prior to arrival. Patient now feeling much better upon arrival to emergency room. No acute distress at this time.. 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 It has been more than one year since last vaccine. - Social history:: Smoking status: Patient denies any tobacco usage or history of. ROS: 16:00 Eyes: Negative for injury, pain, redness, and discharge. jr8 16:00 Neck: Negative for injury, pain, and swelling, Cardiovascular: Negative for chest pain, palpitations, and edema, Respiratory: Negative for shortness of breath, cough, wheezing, and pleuritic chest pain, Abdomen/GI: Negative for abdominal pain, nausea, vomiting, diarrhea, and constipation, Back: Negative for injury and pain, MS/Extremity: Negative for injury and deformity, Skin: Negative for injury, rash, and discoloration, Neuro: Negative for headache, weakness, numbness, tingling, and seizure. 16:00 ENT: Positive for Tongue swelling. Exam: 16:00 Constitutional: This is a well developed, well nourished patient who is awake, alert, jr8 and in no acute distress. Head/Face: Normocephalic, atraumatic. ENT: Nares patent. No nasal discharge, no septal abnormalities noted. Tympanic membranes are normal and external auditory canals are clear. Oropharynx with no redness, swelling, or masses, exudates, or evidence of obstruction, uvula midline. Mucous membranes moist. Neck: Trachea midline, no thyromegaly or masses palpated, and no cervical lymphadenopathy. Supple, full range of motion without nuchal rigidity, or vertebral point tenderness. No Meningismus. Cardiovascular: Tachycardic with a normal S1 and S2. No gallops, murmurs, or rubs. Normal PMI, no JVD. No pulse deficits. Respiratory: Lungs have equal breath sounds bilaterally, clear to auscultation and percussion. No rales, rhonchi or wheezes noted. No increased work of breathing, no retractions or nasal flaring. Abdomen/GI: Soft, non-tender, with normal bowel sounds. No distension or tympany. No guarding or rebound. No evidence of tenderness throughout. Skin: Warm, dry with normal turgor. Normal color with no rashes, no lesions, and no evidence of cellulitis. MS/ Extremity: Pulses equal, no cyanosis. Neurovascular intact. Full, normal range of motion. Neuro: Awake and alert, GCS 15, oriented to person, place, time, and situation. Cranial nerves II-XII grossly intact. Motor strength 5/5 in all extremities. Sensory grossly intact. Cerebellar exam normal. Normal gait. Vital Signs: 15:26 BP 150 / 90; Pulse 120; Resp 20; Temp 98.8(O); Pulse Ox 100% on R/A; Weight 81.65 kg; ae4 Height 5 ft. 3 in. (160.02 cm); 16:08 BP 129 / 74; Pulse 122; Resp 15; Pulse Ox 97% on R/A; ae4 17:13 BP 144 / 79; Pulse 103; Resp 22; Pulse Ox 96% on R/A; ae4 15:26 Body Mass Index 31.89 (81.65 kg, 160.02 cm) ae4 MDM: 15:19 Patient medically screened. jr8 17:17 Data reviewed: vital signs, nurses notes, lab test result(s). Data interpreted: Pulse jr8 oximetry: on room air is 96 %. Interpretation: normal. 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 Response to treatment: the patient's symptoms have resolved after treatment. 17:32 ED course: Patient doing well. No signs and symptoms at this time. 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 To come back if she were to worsen a point time. Patient good with this and will come back if she were to worsen otherwise she will follow-up in the next few days.. 09/06 15:32 Order name: CBC with Diff; Complete Time: 17:17 jr8 09/06 15:32 Order name: Basic Metabolic Panel; Complete Time: 17:17 jr8 09/06 15:32 Order name: Magnesium; Complete Time: 17:17 jr8 Administered Medications: 16:09 Drug: SOLU-Medrol (methylPrednisoLONE) 125 mg Route: IVP; Site: right antecubital; ae4 17:12 Follow up: Response: No adverse reaction ae4 Disposition: 09/07 04:36 Co-signature as Attending Physician, Todd Peña MD I agree with the assessment and lucrecia plan of care. Disposition Summary: 09/06/21 17:33 Discharge Ordered Location: Home jr8 Problem: new jr8 Symptoms: have improved jr8 Condition: Stable jr8 Diagnosis - Personal history of anaphylaxis jr8 - Acute allergic reaction jr8 Followup: jr8 - With: Private Physician - When: 2 - 3 days - Reason: Recheck today's complaints, Continuance of care, Re-evaluation by your physician Discharge Instructions: - Discharge Summary Sheet jr8 - Anaphylactic Reaction, Adult jr8 Forms: - Medication Reconciliation Form jr8 - Thank You Letter jr8 - Antibiotic Education jr8 - Prescription Opioid Use jr8 Signatures: Dispatcher [employer] Todd Casiano MD MD cha Roszak, Josh, PA PA jr8 Stephen Betancur, RN RN ae4
[2021-09-06 18:34] VITALS: TEMP 98.8
[2021-09-06 18:39] VITALS: BP 144/79; O2SAT 96
== END 2021-09-06 18:14 | disposition home or self-care (01) ==
LOC: ER 15:16
DX: T78.40XA Allergy, unspecified, initial encounter (principal); Z87.892 Personal history of anaphylaxis
CPT/HCPCS: 85025; 80048; 36415; 83735; 96374; 99284; J2930

== ENCOUNTER 2021-10-01 08:14 | Emergency (ER) | payer OTHER ==
--- OUTSIDE RECORDS SUMMARY | 2021-10-01 08:18 | XMS REPORT | Continuity of Care Document ---
:1985 Author Organization [facility] t Address [address] [place] [address] Dr. Sh[address]la. [address] [place] [address] Care Team Providers Name Role Phone MELIZA Amadou Primary Care Physician Unavailable Elvin LINDQUIST Attending Clinician Unavailable Vahe OBRIEN, Rod Attending Clinician Jeronimo Pascal MD Attending Clinician Juan BURKETT Attending Clinician JUAN Attending Clinician Unavailable Elvin Lindquist MD Attending Clinician Doctor Unassigned, Name Attending Clinician Unavailable Omer GUTIERRES Attending Clinician Unavailable Wai BURKETT, Maciej Attending Clinician Ronald OBRIEN Attending Clinician Brayden BURKETT Attending Clinician Maciej Carreno MD Admitting Clinician Brayden BURKETT Admitting Clinician Payers Payer Name Policy Type Policy Number Effective Date Expiration Date S [facility] MEDICARE PART A [id number] 2014 \T\ B 00:00:00 MEDICAID [facility] [id number] 2014 00:00:00 Problems Condition Condition Condition Status Onset Resolution Last Treating Co mments Source Name Details Category Date Date Treatment Clinician Date Allergic Allergic Disease Active Unive rs reaction, reaction, 6-25 ity of initial initial 00:00: [place] encounter encounter 00 Medi abhishek Branch Post-opera Post-opera Disease Active U nivers tive state tive state 6 it y of 00:00: Medical Branch S/P S/P Disease Active Univers laparoscop laparoscop 02-22 it y of ic ic 00:00: [place] assisted assisted 00 Medica l vaginal vaginal Branch hysterecto hysterecto my (LAVH) my ([facility]) Crohn Crohn Disease Active Univers disease disease 05-11 ity of 00:00: [place] [facility] Obesity Obesity Disease Active Univers (BMI (BMI 9- ity of 30-39.9) 30-39.9) 00:00: Medical Branch Bipolar I Bipolar I Disease Active Overview: Univers disorder, disorder, 7-11 Formattin i ty of most most 00:00: g of this [place] recent recent note Medical episode episode might be Branch depressed depressed different from the original. ICD10 Diagnosis Term [employer] Utility Allergies, Adverse Reactions, Alerts Allergy Allergy Status Severity Reaction(s) Onset Inactive Treating Comm ents Source Name Type Date Date Clinician Prochlor Propensi Active Anaphylaxis U nivers perazine ty to 6-23 ity of adverse 00:00: [place] reaction Medical s Branch PROCHLOR DRUG Active Anaphylaxis Uni vers PERAZINE INGREDI 6-23 ity of 00:00: Medical Branch Prochlor Propensi Active Anaphylaxis U nivers perazine ty to 7-10 ity of Edisylat adverse 00:00: [place] e reaction Medical s Branch PROCHLOR DRUG Active Anaphylaxis Uni vers PERAZINE INGREDI 7-10 ity of EDISYLAT 00:00: [place] E 00 Medical Branch Social History Social Habit Start Date Stop Date Quantity Comments Source History of tobacco Cigarette Smoker University of use [place] [facility] Exposure to Not sure University of SARS-CoV-2 (event) [place] [facility] History [facility] University o f Alcohol Frequency [facility] edical Branch History [facility] University o f Alcohol Std Drinks [place] [facility] History [facility] o f Alcohol Binge [place] Medic al Branch Alcohol intake 2021-09-27 2021-09-27 Current drinker Unive rsity of 00:00:00 00:00:00 of alcohol [place] Medical (finding) Branch Cigarettes smoked 2018-05-11 2018-05-11 Univers ity of current (pack per 00:00:00 00:00:00 ) - Reported Branch Cigarette 2018-05-11 2018-05-11 University of pack-years 00:00:00 00:00:00 [facility] Tobacco use and 2018-05-11 2018-05-11 Never used Universit y of exposure 00:00:00 00:00:00 [facility] Alcohol Comment 2018-05-11 2018-05-11 Occasional Universit y of 00:00:00 00:00:00 [facility] Sex [birth year] At [birth year] Universit y of 00:00:00 00:00:00 [facility] Smoking Status Start Date Stop Date Source Former smoker 2018-05-11 00:00:00 2018-05-11 00:00:[address] [facility] Medications Ordered Filled Start Stop Current Ordering Indication Dosage Frequency Signature Comments Components Source Medication Medication Date Date Medication? Clinician (SIG) Name Name EPINEPHrine 2021- No .3mg 0.3 mg, Un yesenia 1:1,000 (1 09-27 Intramuscu it y of mg/mL) 19:00: 17:54 [place], ONCE[place] (ADRENALIN) 00 :00 1 dose, On Me dical injection Sat Branch 0.3 mg 09/27/21 at 1300, STAT famotidine 2021- No 20mg 20 mg, Univ ers (PEPCID 09-27 Slow IV ity of (PF)) 18:30: 17:35 Push, [place] injection 00 :00 ONCE, 1 Medical 20 mg dose, On Branch 09/27/21 at 1230, SHEEBA azelastine Yes [id number] 1{spray Use 1 Univers 137 mcg 09-27 } [place] in ity of (0.1 %) 00:00: each [place] nasal spray 00 nostril 2 Med ical (two) Branch times daily. Use in each nostril as directed fluticasone Yes [id number] 1{spray Use 1 Univers propionate 09-27 } [place] in ity o f 50 00:00: each [place] mcg/actuati 00 nostril Medic al on nasal daily. Branch spray azelastine Yes [id number] 1{spray Use 1 Univers 137 mcg -22 } [place] in ity of (0.1 %) 00:00: each [place] nasal spray 00 nostril 2 Med ical (two) Branch times daily. Use in each nostril as directed fluticasone Yes [id number] 1{spray Use 1 Univers propionate -22 } [place] in ity o f 50 00:00: each [place] mcg/actuati 00 nostril Medic al on nasal daily. Branch spray amoxicillin 2021- Yes [id number] 1{tbl} Take 1 Univers -clavulanat -22 -30 tablet by it y of e 00:00: 05:59 mouth 2 [place] (AUGMENTIN) 00 :00 (two) Medical 875-125 mg times Branch per tablet daily for 7 days. amoxicillin 2021- Yes [id number] 1{tbl} Take 1 Univers -clavulanat -27 09-30 tablet by it y of e 00:00: 05:59 mouth 2 [place] (AUGMENTIN) 00 :00 (two) Medical 875-125 mg times Branch per tablet daily for 7 days. predniSONE 2021- Yes [id number] 40mg Take 2 Univers 20 mg -22 -30 tablets by ity of tablet 00:00: 05:59 mouth [place] 00 :00 daily for Medical 7 days. Branch metoprolol Yes Univers succinate 1-19 ity of XL 25 mg 24 00:00: [place] hr tablet 00 Medical Branch metoprolol Yes Univers succinate 1-19 ity of XL 25 mg 24 00:00: [place] hr tablet 00 Medical Branch EPINEPHrine Yes Univer s 0.3 mg/0.3 1-03 ity of mL 00:00: [place] injection 00 Medical Branch EPINEPHrine Yes Univer s 0.3 mg/0.3 1-03 ity of mL 00:00: [place] injection 00 Medical Branch montelukast 2020-09 Yes [id number] 10mg Take 1 Univers (SINGULAIR) 2-03 tablet by ity of 10 mg 00:00: mouth [place] tablet 00 daily. Medical Branch famotidine 2020-09 Yes [id number] 20mg Take 1 U nivers (PEPCID) 20 2-03 tablet by ity of mg tablet 00:00: mouth 2 [place] 00 (two) Medical times Branch daily. cetirizine 2020-09 Yes [id number] 10mg Take 1 U nivers (ZYRTEC) 10 2-03 tablet by ity of mg tablet 00:00: mouth [place] 00 daily. Medical Branch montelukast 2020-09 Yes [id number] 10mg Take 1 Univers (SINGULAIR) 2-03 tablet by ity of 10 mg 00:00: mouth [place] tablet 00 daily. Medical Branch famotidine 2020-09 Yes [id number] 20mg Take 1 U nivers (PEPCID) 20 2-03 tablet by ity of mg tablet 00:00: mouth 2 [place] 00 (two) Medical times Branch daily. cetirizine 2020-09 Yes [id number] 10mg Take 1 U nivers (ZYRTEC) 10 2-03 tablet by ity of mg tablet 00:00: mouth [place] 00 daily. Medical Branch montelukast 2020-09 Yes [id number] 10mg Take 1 Univers (SINGULAIR) 2-03 tablet by ity of 10 mg 00:00: mouth [place] tablet 00 daily. Medical Branch famotidine 2020-09 Yes [id number] 20mg Take 1 U nivers (PEPCID) 20 2-03 tablet by ity of mg tablet 00:00: mouth 2 [place] 00 (two) Medical times Branch daily. cetirizine 2020-09 Yes [id number] 10mg Take 1 U nivers (ZYRTEC) 10 2-03 tablet by ity of mg tablet 00:00: mouth [place] 00 daily. Medical Branch EPINEPHrine 2020-09- No [id number] .3mg 0.3 mL by Univers (EPIPEN) 2-03 12-04 Intramuscu ity of 0.3 mg/0.3 00:00: 05:59 lar route [place] mL 00 :00 once now Medical injection for 1 Branch dose. ondansetron 2020-09 Yes [id number] 4mg Take 1 Univers (ZOFRAN 0-15 tablet by ity of ODT) 4 mg 00:00: mouth [place] disintegrat 00 every 8 Medic al ing tablet (eight) Branch hours as needed for Nausea and Vomiting (N/V). ondansetron 2020-09 Yes [id number] 4mg Take 1 Univers (ZOFRAN 0-15 tablet by ity of ODT) 4 mg 00:00: mouth [place] disintegrat 00 every 8 Medic al ing tablet (eight) Branch hours as needed for Nausea and Vomiting (N/V). ondansetron 2020-09 Yes [id number] 4mg Take 1 Univers (ZOFRAN 0-15 tablet by ity of ODT) 4 mg 00:00: mouth [place] disintegrat 00 every 8 Medic al ing tablet (eight) Branch hours as needed for Nausea and Vomiting (N/V). cetirizine Yes [id number] 10mg Take 1 U nivers 10 mg 8-06 tablet by ity of tablet 00:00: mouth 2 (two) Medical times Branch daily. cetirizine Yes [id number] 10mg Take 1 U nivers 10 mg 8-06 tablet by ity of tablet 00:00: mouth 2 (two) Medical times Branch daily. cetirizine 0 Yes [id number] 10mg Take 1 U nivers 10 mg 8-06 tablet by ity of tablet 00:00: mouth 2 (two) Medical times Branch daily. atorvastati Yes TAKE 1 Univ ers n 20 mg 7-24 TABLET BY ity of tablet 00:00: MOUTH [place] 00 EVERY DAY Medical Branch DIRECTED atorvastati 2020-0 Yes TAKE 1 Univ ers n 20 mg 7-24 TABLET BY ity of tablet 00:00: MOUTH [place] 00 EVERY DAY Medical Branch DIRECTED atorvastati 2020-0 Yes TAKE 1 Univ ers n 20 mg 7-24 TABLET BY ity of tablet 00:00: MOUTH [place] 00 EVERY DAY Medical Branch DIRECTED albuterol 2020-0 Yes [id number] 2{puff} Inhale 2 Univers 90 6-25 Puffs ity of mcg/actuati 00:00: every 6 [place] as on inhaler 00 (six) Medical hours as Branch needed for Wheezing or Shortness of Breath. albuterol 0 Yes [id number] 2{puff} Inhale 2 Univers 90 6-25 Puffs ity of mcg/actuati 00:00: every 6 [place] as on inhaler 00 (six) Medical hours as Branch needed for Wheezing or Shortness of Breath. albuterol Yes [id number] 2{puff} Inhale 2 Univers 90 6-25 Puffs ity of mcg/actuati 00:00: every 6 [place] as on inhaler 00 (six) Medical hours as Branch needed for Wheezing or Shortness of Breath. famotidine Yes [id number] 40mg Take 1 Univers (PEPCID) 40 6-23 tablet by ity of mg tablet 00:00: mouth [place] 00 daily. Medical Branch famotidine Yes [id number] 40mg Take 1 Univers (PEPCID) 40 6-23 tablet by ity of mg tablet 00:00: mouth [place] 00 daily. Medical Branch famotidine Yes [id number] 40mg Take 1 Univers (PEPCID) 40 6-23 tablet by ity of mg tablet 00:00: mouth [place] 00 daily. Medical Branch dicyclomine Yes 10mg Take 10 mg Univers (BENTYL) 10 6-19 by mouth 4 it y of mg capsule 13:06: ([facility]) [place] 49 times Medical daily. Branch dicyclomine Yes 10mg Take 10 mg Univers (BENTYL) 10 6-19 by mouth 4 it y of mg capsule 13:06: (four) [place] 49 times Medical daily. Branch dicyclomine Yes 10mg Take 10 mg Univers (BENTYL) 10 6-19 by mouth 4 it y of mg capsule 13:06: (four) [place] 49 times Medical daily. Branch docusate Yes [id number] 100mg Take 1 U nivers 100 mg 6-19 capsule by ity of capsule 00:00: mouth 2 [place] (two) Medical times Branch daily as needed for Constipati on. docusate 0 Yes [id number] 100mg Take 1 U nivers 100 mg 6-19 capsule by ity of capsule 00:00: mouth 2 [place] (two) Medical times Branch daily as needed for Constipati on. docusate 0 Yes [id number] 100mg Take 1 U nivers 100 mg 6-19 capsule by ity of capsule 00:00: mouth 2 [place] (two) Medical times Branch daily as needed for Constipati on. 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 ondansetron Yes [id number] 4mg Take 1 Univers 4 mg 1-23 tablet by ity of disintegrat 00:00: mouth [place] ing tablet 00 every 8 Medica l (eight) Branch hours as needed for Nausea and Vomiting (N/V). ondansetron Yes [id number] 4mg Take 1 Univers 4 mg 1-23 tablet by ity of disintegrat 00:00: mouth [place] ing tablet 00 every 8 Medica l (eight) Branch hours as needed for Nausea and Vomiting (N/V). acetaminoph 2019- Yes 500mg Take 500 U nivers en 500 mg 2-28 mg by ity of tablet 00:00: mouth. [place] [facility] Branch acetaminoph 2020-1 Yes 500mg Take 500 U nivers en 500 mg 2-28 mg by ity of tablet 00:00: mouth. [address] Branch acetaminoph 2020-1 Yes 500mg Take 500 U nivers en 500 mg 2-28 mg by ity of tablet 00:00: mouth. [address] Branch traZODone 2019- Yes TAKE ONE Univ ers 100 mg 1-12 (1) ity of tablet 00:00: TABLET(S) BY [facility] Medical AT [facility] NEEDED. traZODone 2019- Yes TAKE ONE Univ ers 100 mg 1-12 (1) ity of tablet 00:00: TABLET(S) BY MOUTH Medical AT BEDTIME Branch NEEDED. traZODone 2020- Yes TAKE ONE Univ ers 100 mg 1-12 (1) ity of tablet 00:00: TABLET(S) BY MOUTH Medical AT BEDTIME Branch NEEDED. pantoprazol 2020-1 Yes 40mg Take 40 mg Univers e 40 mg EC 1-07 by mouth ity o f tablet 00:00: daily. [place] [facility] Branch pantoprazol 2020-1 Yes 40mg Take 40 mg Univers e 40 mg EC 1-07 by mouth ity o f tablet 00:00: daily. [place] [facility] Branch pantoprazol 2020- Yes 40mg Take 40 mg Univers e 40 mg EC 1-07 by mouth ity o f tablet 00:00: daily. [place] [facility] Branch SUMAtriptan 2019- Yes PLEASE SEE Univers 25 mg 1-01 ATTACHED ity of tablet 00:00: FOR [place] [facility] Medical DIRECTIONS Branch SUMAtriptan 2019- Yes PLEASE SEE Univers 25 mg 1-01 ATTACHED ity of tablet 00:00: FOR [place] [facility] Medical [facility] Branch SUMAtriptan 2019- Yes PLEASE SEE Univers 25 mg 1-01 ATTACHED ity of tablet 00:00: FOR [place] [facility] Medical [facility] Branch lamoTRIgine 2019- Yes TAKE TWO Un yesenia 100 mg 0-28 (2) ity of tablet 00:00: TABLET(S) BY MOUTH Medical EVERY Branch MORNING. lamoTRIgine 2019- Yes TAKE TWO Un yesenia 100 mg 0-28 (2) ity of tablet 00:00: TABLET(S) BY MOUTH Medical EVERY Branch MORNING. lamoTRIgine 2019- Yes TAKE TWO Un yesenia 100 mg 0-28 (2) ity of tablet 00:00: TABLET(S) BY MOUTH Medical EVERY Branch MORNING. VENTOLIN 2020-0 Yes INHALE ONE Uni vers HFA 90 06-04 (1) ity of mcg/actuati 00:00: PUFF(S) BY [place] on inhaler 00 MOUTH Medical EVERY FOUR Branch HOURS. fluticasone 2020-0 Yes INSTILL Uni vers propionate 06-04 ONE (1) ity of 50 00:00: SPRAY(S) [place] mcg/actuati 00 INTO EACH Med ical on nasal NOSTRIL Branch spray TWICE A DAY. VENTOLIN 2020-0 Yes INHALE ONE Uni vers HFA 90 06-04 (1) ity of mcg/actuati 00:00: PUFF(S) BY [place] on inhaler 00 MOUTH Medical EVERY FOUR Branch HOURS. fluticasone 2020-0 Yes INSTILL Uni vers propionate 06-04 ONE (1) ity of 50 00:00: SPRAY(S) [place] mcg/actuati 00 INTO EACH Med ical on nasal NOSTRIL Branch spray TWICE A DAY. VENTOLIN 2020-0 Yes INHALE ONE Uni vers HFA 90 06-04 (1) ity of mcg/actuati 00:00: PUFF(S) BY [place] on inhaler 00 MOUTH Medical EVERY FOUR Branch HOURS. fluticasone 2020-0 Yes INSTILL Uni vers propionate 06-04 ONE (1) ity of 50 00:00: SPRAY(S) [place] mcg/actuati 00 INTO EACH Med ical on nasal NOSTRIL Branch spray TWICE A DAY. proMETHazin 2020-0 Yes [id number] 25mg Take 1 Univers e 25 mg 6-23 tablet by ity of tablet 00:00: mouth [place] every 6 Medical (six) Branch hours as needed for Nausea and Vomiting (N/V). proMETHazin 2020-0 Yes [id number] 25mg Take 1 Univers e 25 mg 6-23 tablet by ity of tablet 00:00: mouth [place] every 6 Medical (six) Branch hours as needed for Nausea and Vomiting (N/V). proMETHazin 2020-0 Yes [id number] 25mg Take 1 Univers e 25 mg 6-23 tablet by ity of tablet 00:00: mouth [place] every 6 Medical (six) Branch hours as needed for Nausea and Vomiting (N/V). hydrOXYzine 2018-09 Yes Univer s 25 mg 2-06 ity of capsule 00:00: [place] 00 Medical Branch hydrOXYzine 2018-09 Yes Univer s 25 mg 2-06 ity of capsule 00:00: [place] 00 Medical Branch hydrOXYzine 2018-09 Yes Univer s 25 mg 2-06 ity of capsule 00:00: [place] 00 Medical Branch STELARA 45 2018-09 Yes INJECT Unive rs mg/0.5 mL 1-26 45MG (1 ity of SC 00:00: SYRINGE) [place] injection 00 SUBCUTANEO Medi abhishek USLY EVERY Branch 8 WEEKS. STELARA 45 2018-09 Yes INJECT Unive rs mg/0.5 mL 1-26 45MG (1 ity of SC 00:00: SYRINGE) [place] injection 00 SUBCUTANEO Medi abhishek USLY EVERY Branch 8 WEEKS. LIONELENOC 45 2018-09 Yes INJECT Unive rs mg/0.5 mL 1-26 45MG (1 ity of SC 00:00: SYRINGE) [place] injection 00 SUBCUTANEO Medi abhishek USLY EVERY Branch 8 WEEKS. Immunizations Ordered Filled Immunization Date Status Comments Sour e Immunization Name Name Influenza Virus 2020-06-23 Completed Universit y of Vaccine Quad .5 mL 00:00:00 [facility] IM 6+ MO Branch Influenza Virus 2020-06-23 Completed Universit y of Vaccine Quad .5 mL 00:00:00 [facility] IM 6+ MO Branch Influenza Virus 2020-06-23 Completed Universit y of Vaccine Quad .5 mL 00:00:00 [facility] 6+ MO Branch Influenza Virus 2019-08-06 Completed Universit y of Vaccine 00:00:00 [facility] Influenza Virus 2019-08-06 Completed Universit y of Vaccine 00:00:00 [facility] Influenza Virus 2019-08-06 Completed Universit y of Vaccine 00:00:00 [facility] Vital Signs Vital Name Observation Time Observation Value Comments Source Systolic blood 2021-09-27 20:30:00 148 mm[Hg] Univer sity of pressure [facility] Diastolic blood 2021-09-27 20:30:00 79 mm[Hg] Unive rsity of pressure [facility] Heart rate 2021-09-27 20:30:00 91 /min [facility] Respiratory rate 2021-09-27 20:30:00 25 /min [facility] Oxygen saturation in 2021-09-27 20:30:00 95 /min [facility] Arterial blood by [facility] Pulse oximetry Branch Body temperature 2021-09-27 17:19:00 37.33 Lashawn [facility] Body weight 2021-09-27 17:19:00 81.194 kg [facility] BMI 2021-09-27 17:19:00 31.71 kg/m2 [facility] Systolic blood 2021-09-27 16:00:00 166 mm[Hg] Univer sity of pressure [facility] Diastolic blood 2021-09-27 16:00:00 112 mm[Hg] Unive rsity of pressure [facility] Heart rate 2021-09-27 15:55:00 108 /min Universi ty of [facility] Body temperature 2021-09-27 15:55:[address] [facility] Respiratory rate 2021-09-27 15:55:00 16 /min Univ ersity of [facility] Body height 2021-09-27 15:55:00 160 cm Universi ty of [place] [facility] Body weight 2021-09-27 15:55:[address] [facility] BMI 2021-09-27 15:55:00 31.71 kg/m2 Universi ty of [facility] Oxygen saturation in 2021-09-27 15:55:00 98 /min University of Arterial blood by [place] [employer] abhishek Pulse oximetry Branch Heart rate 2021-08-08 17:02:00 79 /min Universi ty of [facility] Body temperature 2021-08-08 17:02:00 36.67 Lashawn [facility] ersity of [place] [facility] Respiratory rate 2021-08-08 17:02:00 16 /min Univ ersity of [facility] Body height 2021-08-08 17:02:00 160 cm Universi ty of [place] [facility] Body weight 2021-08-08 17:02:00 77.066 kg Universi ty of [place] [facility] BMI 2021-08-08 17:02:00 30.10 kg/m2 Universi ty of [place] [facility] Oxygen saturation in 2021-08-08 17:02:00 100 /min University of Arterial blood by [facility] abhishek Pulse oximetry Branch Procedures This patient has no known procedures. Encounters Start End Encounter Admission Attending Care Care Encounter Source Date/Time Date/Time Type Type Clinicians Facility Department ID 2021-11-07 2021-11-07 Outpatient Tammi LINDQUIST [facility] [id number] [facility] 11:00:00 11:00:[address] [facility] 2021-09-27 2021-09-27 Emergency Ismael Cotter [facility] [id number] [facility] 11:15:00 14:54:00 Kenneth Pascal [id number] ity of YENNY [id number] [facility] [id number] [facility] 084 Branch 2021-09-27 2021-09-27 Outpatient [facility] [id number] Univers 10:20:00 10:20:00 [id number] ity [facility] 2021-09-27 2021-09-27 [facility] [id number] Univers 10:20:00 10:20:00 Care Damien [facility] [id number] it y of OTOE [id number] Jethro as ALAN?BLE[id number] [facility] [address] MEDICAL OFFICE BUILDING 2021-09-27 2021-09-27 [facility] [id number] Univers 10:20[facility] 2021-09-27 [facility] E[facility] [id number] Univers 10:20:00 [facility]16[facility] 2021-08-08 2021-08-08 [facility] [id number] Univers 10:03:35 11:56:31 Visit Catrachita TEE [id number] ity of URSULA [id number] [facility] [id number] [facility] [place] [id number] [facility] 2020-03-19 2020-03-19 Orders Doctor CASILLAS [id number] 00:00:00 00:00:00 Only Unassigned, ETTA [id number] [facility] [id number] [id number] 2020-02-28 2020-02-28 Transition [place] [id number] 00:00:00 00:00:00 of Care Marley Castano [id number] [place] [id number] [id number] 2020-02-23 2020-02-27 [facility] Magalys Carreno [id number] 21:57:28 16:56:00 Encounter Michael Wing Etta [id number] [id number] 2020-01-31 2020-02-02 [facility] Annamaria Cardenas [facility] [id number]. [id number] 13:56:16 12:50:00 Encounter Keegan Owen [id number] [place] [id number] [place] [id number] 2020-01-31 2020-01-31 Orders Doctor SONJA [id number] 00:00:00 00:00:00 Only Unassigned, [place] [id number] [place] [id number] Results This patient has no known results.
[2021-10-01] MEDS ORDERED: NA CHLORIDE 0.9% 1,000 ML ONE (08:48)
[2021-10-01] MEDS ORDERED: METHYLPREDNISOLONE 125 MG INJ ONE (08:48)
[2021-10-01] MEDS ORDERED: DIPHENHYDRAMINE 50 MG/ML VIAL ONE (08:48)
[2021-10-01] MEDS ORDERED: ONDANSETRON 4 MG/2 ML VIAL ONE (08:48)
[2021-10-01] MEDS ORDERED: FAMOTIDINE 20 MG/2 ML VIAL IV ONE (08:48)
[2021-10-01 09:07] LABS: Absolute Lymphocytes (CBC) 2.6 K/uL (0.7-4.9); Hematocrit 37.3 % (36.0-45.0); RBC Red Blood Cell Count 4.42 M/uL (3.86-4.86)
[2021-10-01 09:09] LABS: Protime INR 0.92
[2021-10-01 10:20] LABS: Magnesium 2.1 mg/dL (1.8-2.4)
[2021-10-01 10:21] LABS: Potassium 2.9 mmol/L (3.5-5.1)
[2021-10-01] MEDS ORDERED: POTASSIUM 25 MEQ EFFERV TAB ONE (10:49)
[2021-10-01] MEDS ORDERED: KCL 20 MEQ/100 mL IVPB 0 ML IV ONE (10:49)
[2021-10-01] MEDS ORDERED: NA CHLORIDE 0.9% 500 ML ONE (10:49)
[2021-10-01] MEDS ORDERED: KCL 20 MEQ/100 mL IVPB 100 ML IV ONE (10:53)
--- NOTE | 2021-10-01 12:44 | EDPHYS ---
Physician Documentation [facility] Name: Sowmya Juarez Age: 36 yrs Sex: Female : 1985 Arrival Date: 10/01/2021 Time: 08:15 Bed 13 Private MD: ED Physician Ronen Galeana HPI: 10/01 08:21 This 36 yrs old Female presents to ER via Unassigned with complaints of Allergic cp Reaction. 08:21 The patient presents with itching, rash, of the chest, swelling of the tongue. Onset: cp The symptoms/episode began/occurred suddenly, this morning, about 0730. Possible causes: The patient has no known obvious cause for the symptoms. At home the patient or guardian has treated the symptoms with EpiPen. The patient has been recently seen by a physician: in [place] [facility], with similar presenting complaints, last week. 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 Historical: - Allergies: 08:26 Compazine; jd3 08:26 Prochlorperazine; jd3 08:26 prochlorperazine Edisylate; jd3 08:26 Prochlorperazine Maleate; jd3 - Home Meds: 08:26 Lamictal Oral [Active]; Metoprolol Tartrate Oral [Active]; Singulair Oral [Active]; jd3 Prednisone Oral [Active]; atorvastatin oral [Active]; Risperdal Oral [Active]; Pepcid Oral [Active]; - PMHx: 08:26 Bipolar disorder; Crohn's; Hyperlipidemia; Hypertension; Migraines; jd3 - PSHx: 08:26 Appendectomy; section; Cholecystectomy; Total abdominal hysterectomy; jd3 - Immunization history:: Adult Immunizations up to date, Client reports having NOT received the Covid vaccine. Flu vaccine is not up to date. - Social history:: Smoking status: Patient/guardian denies using tobacco, but has a distant history of tobacco abuse. ROS: 08:25 All other systems are negative. cp Exam: 08:25 Head/Face: Normocephalic, atraumatic. cp 08:25 Constitutional: The patient appears in no acute distress, alert, awake, non-toxic, well developed, well nourished. 08:25 Eyes: Periorbital structures: appear normal, Conjunctiva: normal, no exudate, no injection, Lids and lashes: appear normal, bilaterally. 08:25 ENT: External ear(s): are unremarkable, Nose: is normal, Mouth: Lips: moist, Oral mucosa: pink and intact, moist, Tongue: is normal, Posterior pharynx: Airway: no evidence of obstruction, patent, swelling, is not appreciated, erythema, is not appreciated, Voice: is normal. 08:25 Neck: ROM/movement: is normal, is supple, without pain, no range of motions limitations. 08:25 Chest/axilla: Inspection: normal. 08:25 Respiratory: the patient does not display signs of respiratory distress, Respirations: normal, no use of accessory muscles, no retractions, labored breathing, is not present, Breath sounds: are clear throughout, no decreased breath sounds, no stridor, no wheezing. 08:25 Abdomen/GI: Exam negative for discomfort, distension, guarding, Inspection: abdomen appears normal. 08:25 Neuro: Orientation: to person, place \T\ time. Mentation: is normal. 08:25 Skin: no rash present. cp 10:46 ECG was reviewed by the Attending Physician. cp Vital Signs: 08:28 BP 158 / 87; Pulse 89; Resp 18 S; Temp 98.1(TE); Pulse Ox 100% on R/A; Weight 81.65 kg jd3 (R); Height 5 ft. 3 in. (160.02 cm) (R); Pain 0/10; 09:30 BP 121 / 53; Pulse 72; Resp 16; Temp 98.6; Pulse Ox 98% ; Pain 0/10; cb5 10:30 BP 129 / 78; Pulse 72; Resp 16; Temp 98.6; Pulse Ox 98% ; Pain 0/10; cb5 13:05 BP 126 / 70; Pulse 80; Resp 16; Temp 98.6; Pulse Ox 98% ; Pain 0/10; cb5 08:28 Body Mass Index 31.89 (81.65 kg, 160.02 cm) jd3 MDM: 08:20 Patient medically screened. cp 09:00 Differential diagnosis: anaphylaxis, angioedema, urticaria. cp 12:42 Data reviewed: vital signs, nurses notes, lab test result(s). cp 12:42 Response to treatment: the patient's symptoms have markedly improved after treatment, cp VSS. Patient reports symptoms markedly improved. Will discharge to home for continued monitoring. 10/01 08:21 Order name: CBC with Diff; Complete Time: 10:28 cp 10/01 10:28 Interpretation: Normal except: WBC 12.20; MCV 84.4; PLT 462; MPV 7.0. cp 10/01 08:21 Order name: BMP; Complete Time: 10:28 cp 10/01 10:28 Interpretation: Normal except: K 2.9; CL 109; GLUC 112; GFR 80. cp 10/01 08:21 Order name: Magnesium; Complete Time: 10:28 cp 10/01 08:21 Order name: PT-INR; Complete Time: 10:28 cp 10/01 08:21 Order name: IV; Complete Time: 09:01 cp 10/01 10:29 Order name: EKG; Complete Time: 10:30 cp 10/01 08:21 Order name: Urine Dipstick-Ancillary (obtain specimen) cp 10/01 08:21 Order name: Urine Test (obtain specimen) 10/01 10:29 Order name: EKG - Nurse/Tech; Complete Time: 10:33 cp EC:46 Rate is 71 beats/min. Rhythm is regular. IN interval is normal. QRS interval is normal. cp QT interval is normal. T waves are Inverted in lead aVR. Interpreted by me. Reviewed by me. Administered Medications: 08:45 Drug: Benadryl (diphenhydrAMINE) 50 mg Route: IVP; Site: left antecubital; cb5 08:45 Drug: Zofran (Ondansetron) 4 mg Route: IVP; Site: left antecubital; cb5 08:45 Drug: Pepcid (famotidine) 20 mg Route: IVP; Site: left antecubital; cb5 08:45 Drug: SOLU-Medrol (methylPrednisoLONE) 125 mg Route: IVP; Site: left antecubital; cb5 09:01 Drug: NS 0.9% 1000 ml Route: IV; Rate: 1 bolus; Site: left antecubital; cb5 10:45 Drug: Potassium Chloride 20 mEq Route: IV; Rate: calculated rate; Site: left cb5 antecubital; 10:45 Drug: NS 0.9% 500 ml Route: IV; Rate: 250 ml/hr; Site: left antecubital; cb5 10:45 Drug: Potassium Effervescent Tablet 50 mEq Route: PO; cb5 Disposition: 12:50 Chart complete. cp 18:40 Co-signature as Attending Physician, Ronen Galeana MD. ma2 Disposition Summary: 10/01/21 12:43 Discharge Ordered Location: Home cp Problem: an ongoing problem cp Symptoms: have improved cp Condition: Stable cp Diagnosis - Personal history of anaphylaxis cp - Hypokalemia cp Followup: cp - With: Private Physician - When: 2 - 3 days - Reason: Recheck today's complaints Discharge Instructions: - Discharge Summary Sheet cp - Potassium Content of Foods cp - Hypokalemia cp Forms: - Medication Reconciliation Form cp - Thank You Letter cp - Antibiotic Education cp - Prescription Opioid Use cp Prescriptions: - Pepcid 20 mg Oral Tablet - take 1 tablet by ORAL route every 12 hours for 5 days; 10 tablet; Refills: 0, cp Product Selection Permitted - Prednisone 20 mg Oral Tablet - take 2 tablets by ORAL route once daily for 5 days; 10 tablet; Refills: 0, cp Product Selection Permitted Signatures: Dispatcher [employer] EDMS Todd Castellon PA PA cp Asa Mccarthy RN RN jd3 Ronen Galeana MD MD ma2 Yaneth Johnson RN RN cb5
--- NOTE | 2021-10-01 12:44 | ER ---
Nurse's Notes [facility] Name: Sowmya Juarez Age: 36 yrs Sex: Female : 1985 Arrival Date: 10/01/2021 Time: 08:15 Bed 13 Private MD: Diagnosis: Personal history of anaphylaxis;Hypokalemia Presentation: 10/01 08:24 Chief complaint: EMS states: "pt reporting to having an allergic reaction this morning. jd3 pt reported tongue and throat swelling and gave 2 epi pens. pt reported symptoms coming back we gave a dose of IM epi as well. unknown allergy.". Coronavirus screen: At this time, the client does not indicate any symptoms associated with coronavirus-19. Ebola Screen: No symptoms or risks identified at this time. Onset: The symptoms/episode began/occurred suddenly. Anaphylaxis evaluation, no signs or symptoms of anaphylaxis were noted. Initial Sepsis Screen: Does the patient meet any 2 criteria? No. Patient's initial sepsis screen is negative. Does the patient have a suspected source of infection? No. Patient's initial sepsis screen is negative. Risk Assessment: Do you want to hurt yourself or someone else? Patient reports no desire to harm self or others. Onset of symptoms was October 01, 2021. 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 Historical: - Allergies: 08:26 Compazine; jd3 08:26 Prochlorperazine; jd3 08:26 prochlorperazine Edisylate; jd3 08:26 Prochlorperazine Maleate; jd3 - Home Meds: 08:26 Lamictal Oral [Active]; Metoprolol Tartrate Oral [Active]; Singulair Oral [Active]; jd3 Prednisone Oral [Active]; atorvastatin oral [Active]; Risperdal Oral [Active]; Pepcid Oral [Active]; - PMHx: 08:26 Bipolar disorder; Crohn's; Hyperlipidemia; Hypertension; Migraines; jd3 - PSHx: 08:26 Appendectomy; section; Cholecystectomy; Total abdominal hysterectomy; jd3 - Immunization history:: Adult Immunizations up to date, Client reports having NOT received the Covid vaccine. Flu vaccine is not up to date. - Social history:: Smoking status: Patient/guardian denies using tobacco, but has a distant history of tobacco abuse. Screenin:30 Abuse screen: Denies threats or abuse. Denies injuries from another. Nutritional cb5 screening: No deficits noted. Tuberculosis screening: No symptoms or risk factors identified. Fall Risk None identified. Assessment: 08:30 General: Appears in no apparent distress. comfortable, well groomed, well developed, cb5 Behavior is calm, cooperative, appropriate for age. Pain: Denies pain. Neuro: No deficits noted. Level of Consciousness is awake, alert, obeys commands, Oriented to person, place, time, situation, Appropriate for age. Cardiovascular: No deficits noted. Respiratory: No deficits noted. Airway is patent Trachea midline Respiratory effort is even, Breath sounds are clear bilaterally. GI: Patient currently denies. : Denies. EENT: Reports pt stated "It felt like mt tongue was swelling, that's why I called the ambulance. I have had unpredicted allergic reactions back to back lately and the doctors dont know why yet". Derm: No deficits noted. Musculoskeletal: No deficits noted. 09:00 Reassessment: Patient states feeling better. Patient states symptoms have improved. cb5 09:30 Reassessment: Patient states feeling better. Patient states symptoms have improved. cb5 09:56 Reassessment: Patient states feeling better. Patient states symptoms have improved. cb5 11:01 Reassessment: Patient states feeling better. Patient states symptoms have improved. cb5 Vital Signs: 08:28 BP 158 / 87; Pulse 89; Resp 18 S; Temp 98.1(TE); Pulse Ox 100% on R/A; Weight 81.65 kg jd3 (R); Height 5 ft. 3 in. (160.02 cm) (R); Pain 0/10; 09:30 BP 121 / 53; Pulse 72; Resp 16; Temp 98.6; Pulse Ox 98% ; Pain 0/10; cb5 10:30 BP 129 / 78; Pulse 72; Resp 16; Temp 98.6; Pulse Ox 98% ; Pain 0/10; cb5 13:05 BP 126 / 70; Pulse 80; Resp 16; Temp 98.6; Pulse Ox 98% ; Pain 0/10; cb5 08:28 Body Mass Index 31.89 (81.65 kg, 160.02 cm) jd3 ED Course: 08:15 Patient arrived in ED. ss 08:16 Todd Castellon PA is PHCP. cp 08:16 Ronen Galeana MD is Attending Physician. cp 08:26 Triage completed. jd3 08:28 Arm band placed on. jd3 08:29 Yaneth Johnson, BHAVIK is Primary Nurse. cb5 09:01 Magnesium Sent. cb5 09:01 BMP Sent. cb5 09:01 CBC with Diff Sent. cb5 09:01 PT-INR Sent. cb5 09:55 Patient has correct armband on for positive identification. Bed in low position. Call cb5 light in reach. Side rails up X 1. Administered Medications: 08:45 Drug: Benadryl (diphenhydrAMINE) 50 mg Route: IVP; Site: left antecubital; cb5 08:45 Drug: Zofran (Ondansetron) 4 mg Route: IVP; Site: left antecubital; cb5 08:45 Drug: Pepcid (famotidine) 20 mg Route: IVP; Site: left antecubital; cb5 08:45 Drug: SOLU-Medrol (methylPrednisoLONE) 125 mg Route: IVP; Site: left antecubital; cb5 09:01 Drug: NS 0.9% 1000 ml Route: IV; Rate: 1 bolus; Site: left antecubital; cb5 10:45 Drug: Potassium Chloride 20 mEq Route: IV; Rate: calculated rate; Site: left cb5 antecubital; 10:45 Drug: NS 0.9% 500 ml Route: IV; Rate: 250 ml/hr; Site: left antecubital; cb5 10:45 Drug: Potassium Effervescent Tablet 50 mEq Route: PO; cb5 Outcome: 12:43 Discharge ordered by MD. cp 13:33 Patient left the ED. mh5 Signatures: Farideh Florez RN RN ss Page, Corey, PA PA cp Martinez, Maria Asa Al RN RN jd3 Boman, Colleen, BHAVIK rhoades
[2021-10-01 13:39] VITALS: TEMP 98.6; O2SAT 98
[2021-10-01 13:42] VITALS: BP 126/70
== END 2021-10-01 13:33 | disposition home or self-care (01) ==
LOC: ER 08:14
DX: E87.6 Hypokalemia (principal); Z87.892 Personal history of anaphylaxis
CPT/HCPCS: 85025; 80048; 36415; 83735; 85610; J1200; J3480; J7040; J7030; J2930; J2405; 93005; 96374; 96375; 99284

== ENCOUNTER 2021-10-15 08:01 | Emergency (ER) | payer OTHER ==
--- OUTSIDE RECORDS SUMMARY | 2021-10-15 08:05 | XMS REPORT | Continuity of Care Document ---
:1985 Author Organization [facility] t Address [address] [place] [address] Dr. Shukla. [address] [place] [address] Care Team Providers Name Role Phone Amadou HAIDER Primary Care Physician Unavailable Elvin LINDQUIST Attending Clinician Unavailable HENRY WYLIE Attending Clinician Unavailable Vahe OBRIEN, Rod Attending Clinician Henry Wylie MD Attending Clinician Juan BURKETT Attending Clinician JUAN Attending Clinician Unavailable Elvin Lindquist MD Attending Clinician Doctor Unassigned, Name Attending Clinician Unavailable Omer GUTIERRES Attending Clinician Unavailable Maciej Carreno MD Attending Clinician Ronald OBRIEN Attending Clinician Brayden BURKETT Attending Clinician Maciej Carreno MD Admitting Clinician Brayden BURKETT Admitting Clinician Payers Payer Name Policy Type Policy Number Effective Date Expiration Date S [facility] MEDICARE PART A [id number] 2014 \T\ B 00:00:00 [place]ID OF [place] [id number] 2014 00:00:00 Problems Condition Condition Condition Status Onset Resolution Last Treating Co mments Source Name Details Category Date Date Treatment Clinician Date Allergic Allergic Disease Active Unive rs reaction, reaction, 6-25 ity of initial initial 00:00: [place] encounter encounter 00 Medi abhishek Branch Post-opera Post-opera Disease Active U nivers tive state tive state 6-25 it y of 00:00: Medical Branch S/P S/P Disease Active Univers laparoscop laparoscop 6- it y of ic ic 00:00: [place] assisted assisted 00 Medica l vaginal vaginal Branch hysterecto hysterecto my (LAVH) my ([facility]) Crohn Crohn Disease Active Univers disease disease 05 ity of 00:00: Medical Branch Obesity Obesity Disease Active Univers (BMI (BMI 9-05 ity of 30-39.9) 30-39.9) 00:00: Medical Branch Bipolar I Bipolar I Disease Active Overview: Univers disorder, disorder, 7-11 Formattin i ty of most most 00:00: g of this [place] recent recent note Medical episode episode might be Branch depressed depressed different from the original. 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 Allergies, Adverse Reactions, Alerts Allergy Allergy [...] [facility] Exposure to Not sure University of SARS-CoV-2 (event) [place] [facility] History [facility] o f Alcohol Frequency [facility] edical Branch History [facility] o f Alcohol Std Drinks [place] [facility] History [facility] o f Alcohol Binge [place] Medic al Branch Alcohol intake 2021-09-27 2021-09-27 Current drinker Unive rsity of 00:00:00 00:00:00 of alcohol [place] Medical (finding) Branch Cigarettes smoked 2018-05-11 2018-05-11 Univers ity of current (pack per 00:00:00 00:00:00 ) - Reported Branch Cigarette 2018-05-11 2018-05-11 University of pack-years 00:00:00 00:00:00 [facility] Tobacco use and 2018-05-11 2018-05-11 Never used Universit y of exposure 00:00:00 00:00:00 [facility] Alcohol Comment 2018-05-11 2018-05-11 Occasional Universit y of 00:00:00 00:00:00 [facility] Sex [birth year] At [birth year] Universit y of 00:00:00 00:00:00 [facility] Smoking Status Start Date Stop Date Source Former smoker 2018-05-11 00:00:00 2018-05-11 00:00:00 Universi ty of [facility] Medications Ordered Filled Start Stop Current Ordering [...] Branch 09/27/21 at 1230, SHEEBA azelastine Yes [id number] 1{spray Use 1 Univers 137 mcg 09-27 } [place] in ity of (0.1 %) 00:00: each [place] nasal spray 00 nostril 2 Med ical (two) Branch times daily. Use in each nostril as directed fluticasone Yes [id number] 1{spray Use 1 Univers propionate 09-27 } [place] in ity o f 50 00:00: each [place] mcg/actuati 00 nostril Medic al on nasal daily. Branch spray azelastine Yes [id number] 1{spray Use 1 Univers 137 mcg -22 } [place] in ity of (0.1 %) 00:00: each [place] nasal spray 00 nostril 2 Med ical (two) Branch times daily. Use in each nostril as directed fluticasone Yes [id number] 1{spray Use 1 Univers propionate -22 } [place] in ity o f 50 00:00: each [place] mcg/actuati 00 nostril Medic al on nasal daily. Branch spray amoxicillin 2021- Yes [id number] 1{tbl} Take 1 Univers -clavulanat -22 -30 tablet by it y of e 00:00: 05:59 mouth 2 [place] (AUGMENTIN) 00 :00 (two) Medical 875-125 mg times Branch per tablet daily for 7 days. amoxicillin 2021- Yes [id number] 1{tbl} Take 1 Univers -clavulanat -22 -30 tablet by it y of e 00:00: 05:59 mouth 2 [place] (AUGMENTIN) 00 :00 (two) Medical 875-125 mg times Branch per tablet daily for 7 days. predniSONE 2021- Yes [id number] 40mg Take 2 Univers 20 mg -22 [...] injection 00 Medical Branch montelukast 2020-09 Yes [id number] 10mg Take 1 Univers (SINGULAIR) 2-03 tablet by ity of 10 mg 00:00: mouth [place] tablet 00 daily. Medical Branch famotidine 2020-09 Yes [id number] 20mg Take 1 U nivers (PEPCID) 20 2-03 tablet by ity of mg tablet 00:00: mouth 2 [place] 00 (two) Medical times Branch daily. cetirizine 2020-09 Yes [id number] 10mg Take 1 U nivers (ZYRTEC) 10 2-03 tablet by ity of mg tablet 00:00: mouth [place] 00 daily. Medical Branch montelukast 2020-09 Yes [id number] 10mg Take 1 Univers (SINGULAIR) 2-03 tablet by ity of 10 mg 00:00: mouth [place] tablet 00 daily. Medical Branch famotidine 2020-09 Yes [id number] 20mg Take 1 U nivers (PEPCID) 20 2-03 tablet by ity of mg tablet 00:00: mouth 2 [place] 00 (two) Medical times Branch daily. cetirizine 2020-09 Yes [id number] 10mg Take 1 U nivers (ZYRTEC) 10 2-03 tablet by ity of mg tablet 00:00: mouth [place] 00 daily. Medical Branch montelukast 2020-09 Yes [id number] 10mg Take 1 Univers (SINGULAIR) 2-03 tablet by ity of 10 mg 00:00: mouth [place] tablet 00 daily. Medical Branch famotidine 2020-09 Yes [id number] 20mg Take 1 U nivers (PEPCID) 20 2-03 tablet by ity of mg tablet 00:00: mouth 2 [place] 00 (two) Medical times Branch daily. cetirizine 2020-09 Yes [id number] 10mg Take 1 U nivers (ZYRTEC) 10 2-03 tablet by ity of mg tablet 00:00: mouth [place] 00 daily. Medical Branch EPINEPHrine 2020-09- No [id number] .3mg 0.3 mL by Univers (EPIPEN) 2- 12-04 Intramuscu ity of 0.3 mg/0.3 00:00: 05:59 lar route [place] mL 00 :00 once now Medical injection for 1 Branch dose. ondansetron 2020-09 Yes [id number] 4mg Take 1 Univers (ZOFRAN 0-15 tablet by ity of ODT) 4 mg 00:00: mouth [place] disintegrat 00 every 8 Medic al ing tablet (eight) Branch hours as needed for Nausea and Vomiting (N/V). ondansetron 2020-09 Yes [id number] 4mg Take 1 Univers (ZOFRAN 0-15 tablet by ity of ODT) 4 mg 00:00: mouth [place] disintegrat 00 every 8 Medic al ing tablet (eight) Branch hours as needed for Nausea and Vomiting (N/V). ondansetron 2020-09 Yes [id number] 4mg Take 1 Univers (ZOFRAN 0-15 tablet by ity of ODT) 4 mg 00:00: mouth [place] disintegrat 00 every 8 Medic al ing tablet (eight) Branch hours as needed for Nausea and Vomiting (N/V). cetirizine Yes [id number] 10mg Take 1 U nivers 10 mg 8-06 tablet by ity of tablet 00:00: mouth 2 (two) Medical times Branch daily. cetirizine Yes [id number] 10mg Take 1 U nivers 10 mg 8-06 tablet by ity of tablet 00:00: mouth 2 [place] (two) Medical times Branch daily. cetirizine Yes [id number] 10mg Take 1 U nivers 10 mg [...] 00 EVERY DAY Medical Branch DIRECTED albuterol 2020- Yes [id number] 2{puff} Inhale 2 Univers 90 6-25 Puffs ity of mcg/actuati 00:00: every 6 [place] as on inhaler 00 (six) Medical hours as Branch needed for Wheezing or Shortness of Breath. albuterol 0 Yes [id number] 2{puff} Inhale 2 Univers 90 6-25 Puffs ity of mcg/actuati 00:00: every 6 [place] as on inhaler 00 (six) Medical hours as Branch needed for Wheezing or Shortness of Breath. albuterol Yes [id number] 2{puff} Inhale 2 Univers 90 6-25 Puffs ity of mcg/actuati 00:00: every 6 [place] as on inhaler 00 (six) Medical hours as Branch needed for Wheezing or Shortness of Breath. famotidine Yes [id number] 40mg Take 1 Univers (PEPCID) 40 6-23 tablet by ity of mg tablet 00:00: mouth [place] 00 daily. Medical Branch famotidine 0 Yes [id number] 40mg Take 1 Univers (PEPCID) 40 6-23 tablet by ity of mg tablet 00:00: mouth [place] 00 daily. Medical Branch famotidine Yes [id number] 40mg Take 1 Univers (PEPCID) 40 6-23 tablet by ity of mg tablet 00:00: mouth [place] 00 daily. Medical Branch dicyclomine Yes 10mg Take 10 mg Univers (BENTYL) 10 6-19 by mouth 4 it y of mg capsule 13:06: ([facility]) [place] 49 times Medical daily. Branch dicyclomine Yes 10mg Take 10 mg Univers (BENTYL) 10 6-19 by mouth 4 it y of mg capsule 13:06: ([facility]) [place] 49 times Medical daily. Branch dicyclomine Yes 10mg Take 10 mg Univers (BENTYL) 10 6-19 by mouth 4 it y of mg capsule 13:06: ([facility]) [place] 49 times Medical daily. Branch docusate 0 Yes [id number] 100mg Take 1 U nivers 100 mg 6-19 capsule by ity of capsule 00:00: mouth 2 [place] (two) Medical times Branch daily as needed for Constipati on. docusate 2020-0 Yes [id number] 100mg Take 1 U nivers 100 mg 6-19 capsule by ity of capsule 00:00: mouth 2 [place] (two) Medical times Branch daily as needed for Constipati on. docusate 2020-0 Yes [id number] 100mg Take 1 U nivers 100 mg 6-19 capsule by ity of capsule 00:00: mouth 2 [place] (two) Medical times Branch daily as needed for Constipati on. 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 ondansetron Yes [id number] 4mg Take 1 Univers 4 mg 1-23 tablet by ity of disintegrat 00:00: mouth [place] ing tablet 00 every 8 Medica l (eight) Branch hours as needed for Nausea and Vomiting (N/V). ondansetron Yes [id number] 4mg Take 1 Univers 4 mg 1-23 tablet by ity of disintegrat 00:00: mouth [place] ing tablet 00 every 8 Medica l (eight) Branch hours as needed for Nausea and Vomiting (N/V). acetaminoph 2019- Yes 500mg Take 500 U nivers en 500 mg 2-28 mg by ity of tablet 00:00: mouth. [place] [facility] Branch acetaminoph 2020-1 Yes 500mg Take 500 U nivers en 500 mg 2-28 mg by ity of tablet 00:00: mouth. [place] [facility] Branch acetaminoph 2019- Yes 500mg Take 500 U nivers en 500 mg 2-28 mg by ity of tablet 00:00: mouth. [address] Branch traZODone 2019- Yes TAKE ONE Univ ers 100 mg 1-12 (1) ity of tablet 00:00: TABLET(S) BY MOUTH Medical AT BEDTIME Branch NEEDED. traZODone 2019- Yes TAKE ONE Univ ers 100 mg 1-12 (1) ity of tablet 00:00: TABLET(S) BY MOUTH Medical AT BEDTIME Branch NEEDED. traZODone 2020- Yes TAKE ONE Univ ers 100 mg 1-12 (1) ity of tablet 00:00: TABLET(S) BY MOUTH Medical AT BEDTIME Branch NEEDED. pantoprazol 2020- Yes 40mg Take 40 mg Univers e 40 mg EC 1-07 by mouth ity o f tablet 00:00: daily. [place] [facility] Branch pantoprazol 2020-1 Yes 40mg Take 40 mg Univers e 40 mg EC 1-07 by mouth ity o f tablet 00:00: daily. [place] [facility] Branch pantoprazol 2020- Yes 40mg Take 40 mg Univers e 40 mg EC 1-07 by mouth ity o f tablet 00:00: daily. [place] [facility] SUMAtriptan 2020- Yes PLEASE SEE Univers 25 mg 1-01 ATTACHED ity of tablet 00:00: FOR [place] [facility] Branch SUMAtriptan 2019- Yes PLEASE SEE Univers 25 mg 1-01 ATTACHED ity of tablet 00:00: FOR [place] [facility] Branch SUMAtriptan 2019- Yes PLEASE SEE Univers 25 mg 1-01 ATTACHED ity of tablet 00:00: FOR [place] [facility] Branch lamoTRIgine 2019- Yes TAKE TWO Un [...] (1) ity of mcg/actuati 00:00: PUFF(S) BY [place] on inhaler 00 MOUTH Medical EVERY FOUR Branch HOURS. fluticasone 2020-0 Yes INSTILL Uni vers propionate 06-04 ONE (1) ity of 50 00:00: SPRAY(S) [place] mcg/actuati 00 INTO EACH Med ical on nasal NOSTRIL Branch spray TWICE A DAY. VENTOLIN 2020-0 Yes INHALE ONE Uni vers HFA 90 06-04 (1) ity of mcg/actuati 00:00: PUFF(S) BY [place] on inhaler 00 MOUTH Medical EVERY FOUR Branch HOURS. fluticasone 2020-0 Yes INSTILL Uni vers propionate 06-04 ONE (1) ity of 50 00:00: SPRAY(S) [place] mcg/actuati 00 INTO EACH Med ical on nasal NOSTRIL Branch spray TWICE A DAY. VENTOLIN 2020-0 Yes INHALE ONE Uni vers HFA 90 06-04 (1) ity of mcg/actuati 00:00: PUFF(S) BY [place] on inhaler 00 MOUTH Medical EVERY FOUR Branch HOURS. fluticasone 2020-0 Yes INSTILL Uni vers propionate 06-04 ONE (1) ity of 50 00:00: SPRAY(S) [place] mcg/actuati 00 INTO EACH Med ical on nasal NOSTRIL Branch spray TWICE A DAY. proMETHazin 2020-0 Yes [id number] 25mg Take 1 Univers e 25 mg 6-23 tablet by ity of tablet 00:00: mouth [place] every 6 Medical (six) Branch hours as needed for Nausea and Vomiting (N/V). proMETHazin 2020-0 Yes [id number] 25mg Take 1 Univers e 25 mg 6-23 tablet by ity of tablet 00:00: mouth [place] every 6 Medical (six) Branch hours as needed for Nausea and Vomiting (N/V). proMETHazin 2020-0 Yes [id number] 25mg Take 1 Univers e 25 mg 6-23 tablet by ity of tablet 00:00: mouth [place] every 6 Medical (six) Branch hours as needed for Nausea and Vomiting (N/V). hydrOXYzine 2018-09 Yes Univer s 25 mg 2-06 ity of capsule 00:00: [place] [facility] Branch hydrOXYzine 2018-09 Yes Univer s 25 mg 2-06 ity of capsule 00:00: [place] [facility] hydrOXYzine 2018-09 Yes Univer s 25 mg 2-06 ity of capsule 00:00: [place] [address] Medical Branch STELARA 45 2018-09 Yes INJECT Unive rs mg/0.5 mL 1-26 45MG (1 ity of SC 00:00: SYRINGE) [place] injection 00 SUBCUTANEO Medi abhishek USLY EVERY Branch 8 WEEKS. STELARA 45 2018-09 Yes INJECT Unive rs mg/0.5 mL 1-26 45MG (1 ity of SC 00:00: SYRINGE) [place] injection 00 SUBCUTANEO Medi abhishek USLY EVERY Branch 8 WEEKS. LIONELREGENCY MERIDIAN 45 2018-09 Yes INJECT Unive rs mg/0.5 mL 1-26 45MG (1 ity of SC 00:00: SYRINGE) [place] injection 00 SUBCUTANEO Medi abhishek USLY EVERY Branch 8 WEEKS. Immunizations Ordered Filled Immunization Date Status Comments [facility] e Immunization Name Name Influenza Virus 2020-06-23 Completed Universit y of Vaccine Quad .5 mL 00:00:00 [facility] IM 6+ MO Branch Influenza Virus 2020-06-23 Completed Universit y of Vaccine Quad .5 mL 00:00:00 [facility] IM 6+ MO Branch Influenza Virus 2020-06-23 Completed Universit y of Vaccine Quad .5 mL 00:00:00 [facility] 6+ MO Branch Influenza Virus 2019-08-06 Completed Universit y of Vaccine 00:00:00 [facility] Influenza Virus 2019-08-06 Completed Universit y of Vaccine 00:00:00 [facility] Influenza Virus 2019-08-06 Completed Universit y of Vaccine 00:00:00 [facility] Vital Signs Vital Name Observation Time Observation Value Comments Source Systolic blood 2021-09-27 20:30:00 148 mm[Hg] Univer sity of pressure [facility] Diastolic blood 2021-09-27 20:30:00 79 mm[Hg] [facility] Heart rate 2021-09-27 20:30:00 91 /min [facility] Respiratory rate 2021-09-27 20:30:00 25 /min [facility] Oxygen saturation in 2021-09-27 20:30:00 95 /min [facility] Arterial blood by [facility] Pulse oximetry Branch Body temperature 2021-09-27 17:19:00 37.33 Lashawn [facility] Body weight 2021-09-27 17:19:00 81.194 kg [facility] BMI 2021-09-27 17:19:00 31.71 kg/m2 [facility] Systolic blood 2021-09-27 16:00:00 166 mm[Hg] Univer sit of [facility] Branch Diastolic blood 2021-09-27 16:00:00 112 mm[Hg] Unive rsity of pressure [facility] Heart rate 2021-09-27 15:55:00 108 /min Universi ty of [facility] Body temperature 2021-09-27 15:55:00 36.83 Lashawn Univ ersity of [facility] Respiratory rate 2021-09-27 15:55:00 16 /min Univ ersity of [facility] Body height 2021-09-27 15:55:00 160 cm Universi ty of [place] [facility] Body weight 2021-09-27 15:55:00 81.194 kg Universi ty of [place] [facility] BMI 2021-09-27 15:55:00 31.71 kg/m2 Universi ty of [facility] Oxygen saturation in 2021-09-27 15:55:00 98 /min University of Arterial blood by [facility] abhishek Pulse oximetry Branch Heart rate 2021-08-08 17:02:00 79 /min Universi ty of [place] [facility] [place] Body temperature 2021-08-08 17:02:00 36.67 Lashawn [facility] ersity of [place] [facility] [place] Respiratory rate 2021-08-08 17:02:00 16 /min Univ ersity of [place] [facility] [place] Body height 2021-08-08 17:02:00 160 cm Universi ty of [place] [facility] [place] Body weight 2021-08-08 17:02:00 77.066 kg Universi ty of [place] [facility] [place] BMI 2021-08-08 17:02:00 30.10 kg/m2 Universi ty of [place] [facility] Oxygen saturation in 2021-08-08 17:02:00 100 /min University of Arterial blood by [facility] abhishek Pulse oximetry Branch Procedures This patient has no known procedures. Encounters Start End Encounter Admission Attending Care Care Encounter Source Date/Time Date/Time Type Type Clinicians Facility Department ID 2021-11-07 2021-11-07 Outpatient Tammi LINDQUIST [facility] [id number] Univers 11:00:00 11:00:00 CATRACHITA lyn [facility] 2021-09-27 2021-09-27 Emergency X INESSA [facility] ERT [id number] Univers 11:15:00 14:54:00 BA arteaga of [facility] 2021-09-27 2021-09-27 Emergency Ismael Cotter [facility] [id number]. [id number] Univers 11:15:00 14:54:00 Ba Wylie [id number] ity of YENNY [id number] [facility] [id number] [facility] 084 Branch 2021-09-27 2021-09-27 Outpatient [facility] [id number] Univers 10:20:00 10:20:00 [id number] ity of [facility] 2021-09-27 2021-09-27 [facility] [id number] Univers 10:20:00 10:20:00 [facility] [id number] it y [facility] [id number] Jethro as ALAN?BLEA [id number] [address] MEDICAL OFFICE BUILDING 2021-09-27 2021-09-27 Outpatient R JUAN [facility] [id number] Univers 10:20:00 10:16:45 DAMIEN ity [facility] 2021-08-08 2021-08-08 [facility] [id number] Univers 10:03:35 11:56:31 Visit Catrachita TEE [id number] ity of KIMBERLYENRIQUE [id number] [facility] [id number] [facility] AND DENIA [facility] 2020-03-19 2020-03-19 Orders Doctor CASILLAS [id number] 00:00:00 00:00:00 Only Unassigned, DEXTER [id number] [place] [facility] 4.2.7.2.686 [id number] 2020-02-28 2020-02-28 Transition Muna [place] [id number] 00:00:00 00:00:00 of Care Marley Castano [id number] [place] [id number] [id number] 2020-02-23 2020-02-27 [facility] Magalys Carreno [id number] 21:57:28 16:56:00 Encounter Michael Wing Dexter [id number]2.686 [id number] 2020-01-31 2020-02-02 [facility] Annamaria Cardenas [facility] 1.2.840. [id number] 13:56:16 12:50:00 Encounter Keegan Owen [id number] [place] [id number] [place] [id number] 2020-01-31 2020-01-31 Orders Doctor SONJA [id number] 00:00:00 00:00:00 Only Unassigned, DEXTER [id number] [place] [id number] Results This patient has no known results.
[2021-10-15] MEDS ORDERED: NA CHLORIDE 0.9% 1,000 ML ONE (08:07)
[2021-10-15] MEDS ORDERED: FAMOTIDINE 20 MG/2 ML VIAL IV ONE (08:07)
[2021-10-15] MEDS ORDERED: DIPHENHYDRAMINE 50 MG/ML VIAL ONE (08:07)
--- NOTE | 2021-10-15 08:32 | EDPHYS ---
Physician Documentation [facility] Name: Sowmya Juarez Age: 36 yrs Sex: Female : 1985 Arrival Date: 10/15/2021 Time: 08:02 Bed 5 Private MD: NATHALIE Physician Todd Peña HPI: 10/15 08:09 This 36 yrs old Female presents to ER via Unassigned with complaints of lucrecia allergic reaction. 08:09 The patient presents with difficulty swallowing, dizziness, nasal itching, rash. Onset: lucrecia The symptoms/episode began/occurred just prior to arrival, this morning. Associated signs and symptoms: Pertinent positives: dysphagia, hives, shortness of breath. Possible causes: The patient has no known obvious cause for the symptoms. At home the patient or guardian has treated the symptoms with EpiPen. Severity of symptoms: At their worst the symptoms were moderate in the emergency department the symptoms are unchanged. The patient has experienced similar episodes in the past. 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 Flu vaccine is not up to date. - Family history:: not pertinent. - Social history:: Smoking status: Patient/guardian denies using tobacco, the patient reports quitting approximately 10 years ago. ROS: 08:09 Constitutional: Negative for fever, chills, and weight loss, Eyes: Negative for injury, lucrecia pain, redness, and discharge, ENT: Negative for injury, pain, and discharge, Neck: Negative for injury, pain, and swelling, Cardiovascular: Negative for chest pain, palpitations, and edema, Respiratory: Negative for shortness of breath, cough, wheezing, and pleuritic chest pain, Abdomen/GI: Negative for abdominal pain, nausea, vomiting, diarrhea, and constipation, Back: Negative for injury and pain, : Negative for injury, bleeding, discharge, and swelling, MS/Extremity: Negative for injury and deformity, Neuro: Negative for headache, weakness, numbness, tingling, and seizure, Psych: Negative for depression, anxiety, suicide ideation, homicidal ideation, and hallucinations, Allergy/Immunology: Negative for hives, rash, and allergies, Endocrine: Negative for neck swelling, polydipsia, polyuria, polyphagia, and marked weight changes, Hematologic/Lymphatic: Negative for swollen nodes, abnormal bleeding, and unusual bruising. 08:09 Skin: Positive for rash. Exam: 08:09 Constitutional: This is a well developed, well nourished patient who is awake, alert, lucrecia and in no acute distress. Head/Face: Normocephalic, atraumatic. Eyes: Pupils equal round and reactive to light, extra-ocular motions intact. Lids and lashes normal. Conjunctiva and sclera are non-icteric and not injected. Cornea within normal limits. Periorbital areas with no swelling, redness, or edema. ENT: Nares patent. No nasal discharge, no septal abnormalities noted. Tympanic membranes are normal and external auditory canals are clear. Oropharynx with no redness, swelling, or masses, exudates, or evidence of obstruction, uvula midline. Mucous membranes moist. Neck: Trachea midline, no thyromegaly or masses palpated, and no cervical lymphadenopathy. Supple, full range of motion without nuchal rigidity, or vertebral point tenderness. No Meningismus. Chest/axilla: Normal chest wall appearance and motion. Nontender with no deformity. No lesions are appreciated. Respiratory: Lungs have equal breath sounds bilaterally, clear to auscultation and percussion. No rales, rhonchi or wheezes noted. No increased work of breathing, no retractions or nasal flaring. Abdomen/GI: Soft, non-tender, with normal bowel sounds. No distension or tympany. No guarding or rebound. No evidence of tenderness throughout. Back: No spinal tenderness. No costovertebral tenderness. Full range of motion. Skin: Warm, dry with normal turgor. Normal color with no rashes, no lesions, and no evidence of cellulitis. MS/ Extremity: Pulses equal, no cyanosis. Neurovascular intact. Full, normal range of motion. Neuro: Awake and alert, GCS 15, oriented to person, place, time, and situation. Cranial nerves II-XII grossly intact. Motor strength 5/5 in all extremities. Sensory grossly intact. Cerebellar exam normal. Normal gait. Psych: Awake, alert, with orientation to person, place and time. Behavior, mood, and affect are within normal limits. 08:09 Cardiovascular: Rate: tachycardic, Rhythm: regular, Pulses: Pulses are 4+ in bilateral radial, brachial, femoral, popliteal, posterior tibial and and dorsalis pedis arteries.. Heart sounds: normal, Edema: is not appreciated, JVD: is not appreciated. 08:09 ECG was reviewed by the Attending Physician. Vital Signs: 08:00 BP 166 / 86; Pulse 137; Resp 20; Temp 98.2(non contact thermometer); Pulse Ox 99% on 9 R/A; Weight 81.65 kg (R); Height 5 ft. 3 in. (160.02 cm) (R); 08:15 BP 120 / 67; Pulse 99; Resp 18 S; Pulse Ox 100% ; jg9 08:54 BP 130 / 72; Pulse 98; Resp 17 S; Pulse Ox 98% on R/A; j9 08:00 Body Mass Index 31.89 (81.65 kg, 160.02 cm) [facility] [place]DM: 08:13 Differential diagnosis: anaphylaxis, angioedema, Arrhythmias bronchospasm, Carcinoid lucrecia foreign body or airway obstruction Mastocystosis Status Asthmaticus urticaria. Data reviewed: nurses notes. 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 Test interpretation: by ED physician or midlevel provider: ECG, plain radiologic studies. Counseling: I had a detailed discussion with the patient and/or guardian regarding: the historical points, exam findings, and any diagnostic results supporting the discharge/admit diagnosis, lab results, radiology results. 08:19 Patient medically screened. [facility] 10/15 08:06 Order name: CBC with Diff [facility] 10/15 08: Order name: Comprehensive Metabolic Panel [facility] 10/15 08:06 Order name: EKG; Complete Time: 08:07 [facility] 10/15 08:06 Order name: Urine Dipstick-Ancillary (obtain specimen) [facility] 10/15 08:06 Order name: Urine Test (obtain specimen) [facility] 10/15 08:06 Order name: EKG - Nurse/Tech; Complete Time: 08:14 [facility] EC:09 Rate is 130 beats/min. Rhythm is regular. QRS [place] is Normal. [place] interval is normal. lucrecia QRS interval is normal. QT interval is normal. No Q waves. T waves are Normal. No ST changes noted. Clinical impression: Sinus tachycardia and No evidence of ischemia. Interpreted by me. Reviewed by me. Administered Medications: 08:14 Drug: Pepcid (famotidine) 20 mg Route: IVP; Site: right hand; ic1 08:14 Drug: Benadryl (diphenhydrAMINE) 25 mg Route: IVP; Site: right wrist; ic1 08:15 Drug: NS 0.9% 1000 ml Route: IV; Rate: 1 bolus; Site: right wrist; ic1 Disposition Summary: 10/15/21 08:32 Discharge Ordered Location: Home lucrecia Problem: new lucrecia Symptoms: have improved lucrecia Condition: Stable lucrecia Diagnosis - Allergic urticaria lucrecia - Idiopathic urticaria lucrecia Followup: lucrecia - With: Private Physician - When: 2 - 3 days - Reason: Recheck today's complaints, Continuance of care, Re-evaluation by your physician Discharge Instructions: - Discharge Summary Sheet lucrecia - Allergies, Adult lucrecia - Hives lucrecia - Rash, Adult, [id number] lucrecia - Angioedema, [id number] lucrecia - Hives, [id number] [facility] Forms: - Medication Reconciliation Form [facility] - Thank You Letter lucrecia - Antibiotic Education [facility] - Prescription Opioid Use [facility] Prescriptions: - Benadryl 25 mg Oral Capsule - take 1 capsule by ORAL route every 6 hours As needed; 30 tablet; Refills: 0, [facility] Product Selection Permitted - Singulair 10 mg Oral Tablet - take 1 tablet by ORAL route every 12 hours; 60 tablet; Refills: 0, Product lucrecia Selection Permitted Signatures: Dispatcher [employer] Todd Casiano MD MD cha Gilmore, Jennifer RN RN jg9 Trinity Bowman RN RN ic1
--- NOTE | 2021-10-15 08:32 | ER ---
Nurse's Notes [facility] Name: Sowmya Juarez Age: 36 yrs Sex: Female : 1985 Arrival Date: 10/15/2021 Time: 08:02 Bed 5 Private MD: Diagnosis: Allergic urticaria;Idiopathic urticaria Presentation: 10/15 08:00 Chief complaint: Patient states: that her tongue started swelling and she broke out jg9 into hives while driving, this has happened over a dozen times and they think it's a mast cell activation of unknown origin, patient reported tightness in her throat along with the tongue swelling. 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 Patient under care of allergen specialist while investing cause of allergic reaction. Coronavirus screen: Vaccine status: Patient reports being unvaccinated. Ebola Screen: Patient negative for fever greater than or equal to 101.5 degrees Fahrenheit, and additional compatible Ebola Virus Disease symptoms Patient denies exposure to infectious person. Patient denies travel to an Ebola-affected area in the 21 days before illness onset. Initial Sepsis Screen: Does the patient meet any 2 criteria? HR > 90 bpm. Does the patient have a suspected source of infection? No. Patient's initial sepsis screen is negative. Risk Assessment: Do you want to hurt yourself or someone else? Patient reports no desire to harm self or others. Onset of symptoms is unknown. 08:00 Method Of Arrival: EMS: [facility] jg9 08:00 Acuity: KALYN 3 jg9 08:16 Chief complaint:. ic1 Triage Assessment: 08:00 General: Appears uncomfortable, Behavior is anxious. Cardiovascular: Rhythm is regular. jg9 Respiratory: Reports. Respiratory: Reports tightness in throat and mouth from swelling making it hard to breath. GI: Reports. 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 Flu vaccine is not up to date. - Family history:: not pertinent. - Social history:: Smoking status: Patient/guardian denies using tobacco, the patient reports quitting approximately 10 years ago. Screenin:13 Abuse screen: Denies threats or abuse. Denies injuries from another. Nutritional jg9 screening: No deficits noted. Tuberculosis screening: No symptoms or risk factors identified. Fall Risk None identified. Assessment: 08:00 General: Appears uncomfortable, Behavior is anxious. Pain: Denies pain. j9 08:45 Reassessment: Patient appears in no apparent distress at this time. Patient is alert, jg9 oriented x 3, equal unlabored respirations, skin warm/dry/pink. Patient states feeling better. Patient states symptoms have improved. Vital Signs: 08:00 BP 166 / 86; Pulse 137; Resp 20; Temp 98.2(non contact thermometer); Pulse Ox 99% on jg9 R/A; Weight 81.65 kg (R); Height 5 ft. 3 in. (160.02 cm) (R); 08:15 BP 120 / 67; Pulse 99; Resp 18 S; Pulse Ox 100% ; jg9 08:54 BP 130 / 72; Pulse 98; Resp 17 S; Pulse Ox 98% on R/A; jg9 08:00 Body Mass Index 31.89 (81.65 kg, 160.02 cm) jg9 ED Course: 08:02 Patient arrived in ED. lucrecia 08:02 Todd Peña MD is Attending Physician. lucrecia 08:05 Inserted saline lock: 22 gauge in right wrist, using aseptic technique. Blood collected.jg9 08:05 Arm band placed on left wrist. jg9 08:10 Catrachita Aguirre, BHAVIK is Primary Nurse. jg9 08:14 EKG done, by ED staff, reviewed by Todd Peña MD. em1 08:16 Comprehensive Metabolic Panel Sent. ic1 08:16 CBC with Diff Sent. ic1 08:19 Triage completed. jg9 08:22 Patient has correct armband on for positive identification. Bed in low position. Call jg9 light in reach. Side rails up X 1. Warm blanket given. Verbal reassurance given. 08:30 Resting quietly. jg9 08:54 No provider procedures requiring assistance completed. IV discontinued. jg9 Administered Medications: 08:14 Drug: Pepcid (famotidine) 20 mg Route: IVP; Site: right hand; ic1 08:14 Drug: Benadryl (diphenhydrAMINE) 25 mg Route: IVP; Site: right wrist; ic1 08:15 Drug: NS 0.9% 1000 ml Route: IV; Rate: 1 bolus; Site: right wrist; ic1 Outcome: 08:32 Discharge ordered by . lucrecia 08:54 Discharged to home ambulatory. jg9 08:54 Condition: improved 08:54 Discharge instructions given to patient, Instructed on discharge instructions, follow up and referral plans. Demonstrated understanding of instructions, follow-up care, Prescriptions given X 2. 08:55 Patient left the ED. jg9 Signatures: Todd Peña MD MD cha Martinez, Eric em1 Catrachita Aguirre, RN RN jg9 Trinity Bowman RN RN ic1
[2021-10-15 08:36] LABS: Albumin 3.8 g/dL (3.4-5.0); Bilirubin Total 0.4 mg/dL (0.2-1.0); Potassium 3.2 mmol/L (3.5-5.1); Protein, Total 7.5 g/dL (6.4-8.2)
[2021-10-15 09:08] LABS: Absolute Lymphocytes (CBC) 3.4 K/uL (0.7-4.9); Hematocrit 38.9 % (36.0-45.0); Lymphocytes % 31.5 % (15.3-44.8); RBC Red Blood Cell Count 4.51 M/uL (3.86-4.86)
[2021-10-15 10:01] VITALS: BP 130/72; O2SAT 98
== END 2021-10-15 08:55 | disposition home or self-care (01) ==
LOC: ER 08:01
DX: L50.0 Allergic urticaria (principal); L50.1 Idiopathic urticaria; I10 Essential (primary) hypertension; F31.9 Bipolar disorder, unspecified; Z88.8 Allergy status to other drugs, medicaments and biological substances
CPT/HCPCS: 85025; 36415; 80053; 99284; J1200; J7030

== ENCOUNTER 2022-02-07 01:25 | Emergency (ER) | payer OTHER ==
--- OUTSIDE RECORDS SUMMARY | 2022-02-07 01:29 | XMS REPORT | Continuity of Care Document ---
:1985 Author Organization [facility] t Address [address] [place] [address] Dr. Scales [address] [place] [address] Care Team Providers Name Role Phone Amadou HAIDER Primary Care Physician Unavailable Nurse, Int Med Allergy Attending Clinician Unavailable Marquita Roman MD Attending Clinician MARQUITA ROMAN Attending Clinician Unavailable Jess BURKETT, L Attending Clinician Juan BURKETT Attending Clinician Doctor Unassigned, Name Attending [...] Details Category Date Date Treatment Clinician Date Angioedema Angioedema Disease Active U nivers , initial , initial 2-09 [place] Allergic Allergic Disease Active Unive rs reaction, reaction, 6-25 ity of initial initial 00:00: [place] encounter encounter 00 Medi abhishek Branch Post-opera Post-opera Disease Active U nivers tive state tive state 6-25 it y of 00:00: [place] 00 Medical Branch S/P S/P Disease Active Univers laparoscop laparoscop 6- it y of ic ic 00:00: [place] assisted assisted 00 Medica l vaginal vaginal Branch hysterecto hysterecto my (LAVH) my (LAVH) Crohn Crohn Disease Active Univers disease disease -05 ity of 00:00: [place] [facility] Obesity Obesity Disease Active Univers (BMI (BMI 9-05 ity of 30-39.9) 30-39.9) 00:00: [place] 00 Medical Branch Bipolar I Bipolar I Disease Active Overview: Univers disorder, disorder, 7-11 Formattin i ty of most most 00:00: g of this [place] recent recent note Medical episode episode might be Branch depressed depressed different from the original. 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 Allergies, Adverse Reactions, Alerts Allergy Allergy Status Severity Reaction(s) Onset Inactive Treating Comm ents Source Name Type Date Date Clinician Prochlor Propensi Active Anaphylaxis U nivers perazine ty to 6-23 ity of adverse 00:00: [place] reaction 00 Medical s Branch PROCHLOR DRUG Active Anaphylaxis Uni vers PERAZINE INGREDI 6-23 ity of 00:00: [place] [facility] Prochlor Propensi Active Anaphylaxis 2007- U nivers perazine ty to 7-10 ity of Edisylat adverse 00:00: [place] e reaction 00 Medical s Branch PROCHLOR DRUG Active Anaphylaxis Uni vers PERAZINE INGREDI 7-10 ity of EDISYLAT 00:00: [place] E 00 Medical Branch Social History Social Habit Start Date Stop Date Quantity Comments Source History of tobacco Cigarette Smoker University of use [place] [facility] History [facility] o f Alcohol Frequency [facility] edical Branch History [facility] o f Alcohol Std Drinks [place] [facility] History [facility] o f Alcohol Binge [place] [facility] al Branch Exposure to 2022-01-25 2022-02-04 Not sure University of SARS-CoV-2 (event) 00:00:00 08:36:00 [facility] Alcohol intake 2022-02-04 2022-02-04 Current drinker Unive rsity of 00:00:00 00:00:00 of alcohol [facility] (finding) Branch Cigarettes smoked 2018-05-11 2018-05-11 Univers ity of current (pack per 00:00:00 00:00:00 ) - Reported Branch Cigarette 2018-05-11 2018-05-11 University of pack-years 00:00:00 00:00:00 [facility] Tobacco use and 2018-05-11 2018-05-11 Never used Universit y of exposure 00:00:00 00:00:00 [facility] Alcohol Comment 2018-05-11 2018-05-11 Occasional Universit y of 00:00:00 00:00:00 [facility] Sex [birth year] At [birth year] Universit y of 00:00:00 00:00:00 [facility] Smoking Status Start Date Stop Date Source Former smoker 2018-05-11 00:00:00 2018-05-11 00:00:00 Universi ty of [facility] Medications Ordered Filled Start Stop Current Ordering Indication Dosage Frequency Signature Comments Components Source Medication Medication Date Date Medication? Clinician (SIG) Name Name omalizumab 2021- No [id number] 150mg Univers (XOLAIR) 02-04 ity of injection 16:00: 14:56 [place] 150 mg 00 :00 [facility] omalizumab 2021- No [id number] 150mg Univers (XOLAIR) 02-04 ity of injection 16:00: 14:56 [place] 150 mg 00 :00 [facility] omalizumab 2021- No [id number] 150mg Univers (XOLAIR) 02-04 ity of injection 16:00: 14:55 [place] 150 mg 00 :00 [facility] omalizumab 2021- No [id number] 150mg 150 mg, Univers (XOLAIR) 02-04 Subcutaneo ity of injection 16:00: 14:55 [place] 150 [place] 00 :00 1 dose, On Wed02/04/22 Branch at 1100, Routine
Restricte d use approved by: MIKKI ROMAN MD. (ALLERGY/I MMUNOLOGY) omalizumab 2021- No [id number] 150mg 150 mg, Univers (XOLAIR) 02-04 Subcutaneo ity of injection 16:00: 14:56 [place] 150 mg 00 :00 1 dose, On Medical Wed02/04/22 Branch at 1100, Routine
Restricte d use approved by: MIKKI ROMAN MD. (ALLERGY/I MMUNOLOGY) omalizumab 2021- No [id number] 150mg 150 mg, Univers (XOLAIR) 02-04 Subcutaneo ity of injection 16:00: 14:56 [place] 150 mg 00 :00 1 dose, On Medical Wed02/04/22 Branch at 1100, Routine
Restricte d use approved by: MIKKI ROMAN MD. (ALLERGY/I MMUNOLOGY) omalizumab 2021- No [id number] 150mg Univers (XOLAIR) 01-09 ity of injection 17:15: 16:08 [place] 150 mg 00 :00 [facility] omalizumab 2021- No [id number] 150mg Univers (XOLAIR) 01-09 ity of injection 17:15: 16:07 [place] 150 mg 00 :00 [facility] omalizumab 2021- No [id number] 150mg 150 mg, Univers (XOLAIR) 01-09 Subcutaneo ity of injection 17:15: 16:07 [place]CE[place] 150 mg 00 :00 1 dose, On Medical Wed01/09/22 Branch at 1215, Routine
Restricte d use approved by: CATRACHITA LINDQUIST MD. (ALLERGY/I MMUNOLOGY) omalizumab 2021- No [id number] 150mg 150 mg, Univers (XOLAIR) 01-09 Subcutaneo ity of injection 17:15: 16:08 [place]CE[place] 150 mg 00 :00 1 dose, On Medical Wed01/09/22 Branch at 1215, Routine
Restricte d use approved by: CATRACHITA LINDQUIST MD. (ALLERGY/I MMUNOLOGY) famotidine Yes [id number] 20mg Take 1 U nivers (PEPCID) 20 5-06 tablet by ity of mg tablet 00:00: mouth 2 00 (two) Medical times Branch daily. montelukast 2022-0 Yes [id number] 10mg Take 1 Univers 10 mg 5-06 tablet by ity of tablet 00:00: mouth [place] 00 daily. Medical Branch omalizumab 2-0 Yes 450mg inject 3 Un yesenia (XOLAIR) 5-06 Syringes ity of 150 mg/mL 00:00: under the [place] as Syrg 00 skin every Medical 4 (four) Branch weeks. famotidine 2021-0 Yes [id number] 20mg Take 1 U nivers (PEPCID) 20 5-06 tablet by ity of mg tablet 00:00: mouth 2 (two) Medical times Branch daily. montelukast 2021-0 Yes [id number] 10mg Take 1 Univers 10 mg 5-06 tablet by ity of tablet 00:00: mouth [place] 00 daily. Medical Branch omalizumab 2021-0 Yes 450mg inject 3 Un yesenia (XOLAIR) 5-06 Syringes ity of 150 mg/mL 00:00: under the [place] as Syrg 00 skin every Medical 4 (four) Branch weeks. famotidine 2021-0 Yes [id number] 20mg Take 1 U nivers (PEPCID) 20 5-06 tablet by ity of mg tablet 00:00: mouth (two) Medical times Branch daily. montelukast 2-0 Yes [id number] 10mg Take 1 Univers 10 mg 5-06 tablet by ity of tablet 00:00: mouth [place] 00 daily. Medical Branch omalizumab 2-0 Yes 450mg inject 3 Un yesenia (XOLAIR) 5-06 Syringes ity of 150 mg/mL 00:00: under the [place] as Syrg 00 skin every Medical 4 (four) Branch weeks. famotidine 2022-0 Yes [id number] 20mg Take 1 U nivers (PEPCID) 20 5-06 tablet by ity of mg tablet 00:00: mouth 2 00 (two) Medical times Branch daily. montelukast 2022-0 Yes [id number] 10mg Take 1 Univers 10 mg 5-06 tablet by ity of tablet 00:00: mouth [place] 00 daily. Medical Branch omalizumab Yes 450mg inject 3 Un yesenia (XOLAIR) 5-06 Syringes ity of 150 mg/mL 00:00: under the [place] as Syrg [address] [facility] 4 (four) Branch weeks. ondansetron 0 Yes [id number] 4mg Take 1 Univers 4 mg 3-19 tablet by ity of disintegrat 00:00: mouth [place] ing tablet 00 every 8 Medica l (eight) Branch hours as needed for Nausea and Vomiting (N/V). ondansetron Yes [id number] 4mg Take 1 Univers 4 mg 3-19 tablet by ity of disintegrat 00:00: mouth [place] ing tablet 00 every 8 Medica l (eight) Branch hours as needed for Nausea and Vomiting (N/V). ondansetron Yes [id number] 4mg Take 1 Univers 4 mg 3-19 tablet by ity of disintegrat 00:00: mouth [place] ing tablet 00 every 8 Medica l (eight) Branch hours as needed for Nausea and Vomiting (N/V). ondansetron Yes [id number] 4mg Take 1 Univers 4 mg 3-19 tablet by ity of disintegrat 00:00: mouth [place] ing tablet 00 every 8 Medica l (eight) Branch hours as needed for Nausea and Vomiting (N/V). predniSONE 2021- No [id number] 1 PO BID x Univers 20 mg 3-19 05-06 4 days ity of tablet 00:00: 00:00 [place] 00 :00 [facility] omalizumab 0 Yes 300mg inject 2.4 Univers (XOLAIR) 3-11 mL under ity of 150 mg 00:00: the skin [place] injection 00 once every Medi abhishek month. Branch omalizumab 2021-0 Yes 300mg inject 2.4 Univers (XOLAIR) 3-11 mL under ity of 150 mg 00:00: the skin [place] injection 00 once every Medi abhishek month. Branch omalizumab 2021-0 Yes 300mg inject 2.4 Univers (XOLAIR) 3-11 mL under ity of 150 mg 00:00: the skin [place] injection 00 once every Medi abhishek month. Branch omalizumab 2021-0 Yes 300mg inject 2.4 Univers (XOLAIR) 3-11 mL under ity of 150 mg 00:00: the skin [place] injection 00 once every [facility] month. Branch omalizumab 2021-0 Yes [id number] 300mg inject 2 Univers (XOLAIR) 3-04 Syringes ity of 150 mg/mL 00:00: under the [place] as Syrg 00 skin every Medical 4 (four) Branch weeks. omalizumab 2022-0 Yes [id number] 300mg inject 2 Univers (XOLAIR) 3-04 Syringes ity of 150 mg/mL 00:00: under the [place] as Syrg 00 skin every Medical 4 (four) Branch weeks. omalizumab 2022-0 Yes [id number] 300mg inject 2 Univers (XOLAIR) 3-04 Syringes ity of 150 mg/mL 00:00: under the [place] as Syrg 00 skin every Medical 4 (four) Branch weeks. omalizumab 2-0 Yes [id number] 300mg inject 2 Univers (XOLAIR) 3-04 Syringes ity of 150 mg/mL 00:00: under the [place] as Syrg 00 skin every Medical 4 (four) Branch weeks. dicyclomine 2021-0 Yes 10mg Take 10 mg Univers (BENTYL) 10 2-10 by mouth 4 it y of mg capsule 14:50: (four) [place] 58 times Medical daily. Branch dicyclomine 2021-0 Yes 10mg Take 10 mg Univers (BENTYL) 10 2-10 by mouth 4 it y of mg capsule 14:50: (four) [place] 58 times Medical daily. Branch dicyclomine 2021-0 Yes 10mg Take 10 mg Univers (BENTYL) 10 2-10 by mouth 4 it y of mg capsule 14:50: (four) [place] 58 times Medical daily. Branch dicyclomine 2021-0 Yes 10mg Take 10 mg Univers (BENTYL) 10 2-10 by mouth 4 it y of mg capsule 14:50: (four) [place] 58 times Medical daily. [place] azelastine 2021-0 Yes [id number] 1{spray Use 1 Univers 137 mcg 1-22 } [place] in ity of (0.1 %) 00:00: each [place] nasal spray 00 nostril 2 Med ical (two) Branch times daily. Use in each nostril as directed fluticasone 2021-0 Yes [id number] 1{spray Use 1 Univers propionate 1-22 } [place] in ity o f 50 00:00: each [place] mcg/actuati 00 nostril Medic al on nasal daily. Branch spray azelastine 0 Yes [id number] 1{spray Use 1 Univers 137 mcg 1-22 } [place] in ity of (0.1 %) 00:00: each [place] nasal spray 00 nostril 2 Med ical (two) Branch times daily. Use in each nostril as directed fluticasone 2021-0 Yes [id number] 1{spray Use 1 Univers propionate 1-22 } [place] in ity o f 50 00:00: each [place] mcg/actuati 00 nostril Medic al on nasal daily. Branch spray azelastine 0 Yes [id number] 1{spray Use 1 Univers 137 mcg 1-22 } [place] in ity of (0.1 %) 00:00: each [place] nasal spray 00 nostril 2 Med ical (two) Branch times daily. Use in each nostril as directed fluticasone 0 Yes [id number] 1{spray Use 1 Univers propionate 1-22 } [place] in ity o f 50 00:00: each [place] mcg/actuati 00 nostril Medic al on nasal daily. Branch spray azelastine 0 Yes [id number] 1{spray Use 1 Univers 137 mcg 1-22 } [place] in ity of (0.1 %) 00:00: each [place] nasal spray 00 nostril 2 Med ical (two) Branch times daily. Use in each nostril as directed fluticasone 0 Yes [id number] 1{spray Use 1 Univers propionate 1-22 } [place] in ity o f 50 00:00: each [place] mcg/actuati 00 nostril Medic al on nasal daily. Branch spray EPINEPHrine 0 Yes Univer s 0.3 mg/0.3 1-03 ity of mL 00:00: [place] injection 00 Medical Branch EPINEPHrine 0 Yes Univer s 0.3 mg/0.3 1-03 ity of mL 00:00: [place] injection 00 Medical Branch EPINEPHrine 0 Yes Univer s 0.3 mg/0.3 1-03 ity of mL 00:00: [place] injection 00 Medical Branch EPINEPHrine 2021-0 Yes Univer s 0.3 mg/0.3 09-08 ity of mL 00:00: [place] injection 00 Medical Branch montelukast 2020-09- No [id number] 10mg Take 1 Univers (SINGULAIR) 10-09 05-06 tablet by it y of 10 mg 00:00: 00:00 mouth [place] tablet 00 :00 daily. Medical Branch famotidine 2020-09- No [id number] 20mg Take 1 Univers (PEPCID) 20 10-09-06 tablet by it y of mg tablet 00:00: 00:00 mouth 2 [place] 00 :00 (two) Medical times Branch daily. cetirizine Yes [id number] 10mg Take 1 U nivers 10 mg 8-06 tablet by ity of tablet 00:00: mouth 2 [place] 00 (two) Medical times Branch daily. cetirizine Yes [id number] 10mg Take 1 U nivers 10 mg 8-06 tablet by ity of tablet 00:00: mouth 2 [place] 00 (two) Medical times Branch daily. cetirizine Yes [id number] 10mg Take 1 U nivers 10 mg 8-06 tablet by ity of tablet 00:00: mouth 2 [place] 00 (two) Medical times Branch daily. cetirizine Yes [id number] 10mg Take 1 U nivers 10 mg 8-06 tablet by ity of tablet 00:00: mouth 2 00 (two) Medical times Branch daily. atorvastati Yes TAKE 1 Univ ers n 20 mg 7-24 TABLET BY ity of tablet 00:00: MOUTH [place] 00 EVERY DAY Medical Branch DIRECTED atorvastati Yes TAKE 1 Univ ers n 20 mg 7-24 TABLET BY ity of tablet 00:00: MOUTH [place] 00 EVERY DAY Medical Branch DIRECTED atorvastati 0 Yes TAKE 1 Univ ers n 20 mg 7-24 TABLET BY ity of tablet 00:00: MOUTH [place] 00 EVERY DAY Medical Branch DIRECTED atorvastati Yes TAKE 1 Univ ers n 20 mg 7-24 TABLET BY ity of tablet 00:00: MOUTH [place] 00 EVERY DAY Medical Branch DIRECTED albuterol Yes [id number] 2{puff} Inhale 2 Univers 90 6-25 Puffs ity of mcg/actuati 00:00: every 6 [place] on inhaler 00 (six) Medical hours as Branch needed for Wheezing or Shortness of Breath. albuterol Yes [id number] 2{puff} Inhale 2 Univers 90 6-25 Puffs ity of mcg/actuati 00:00: every 6 [place] on inhaler 00 (six) Medical hours as Branch needed for Wheezing or Shortness of Breath. albuterol Yes [id number] 2{puff} Inhale 2 Univers 90 6-25 Puffs ity of mcg/actuati 00:00: every 6 [place] on inhaler 00 (six) Medical hours as Branch needed for Wheezing or Shortness of Breath. albuterol Yes [id number] 2{puff} Inhale 2 Univers 90 6-25 Puffs ity of mcg/actuati 00:00: every 6 [place] on inhaler 00 (six) Medical hours as Branch needed for Wheezing or Shortness of Breath. 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 ondansetron Yes [id number] 4mg Take 1 Univers 4 mg 1-23 tablet by ity of disintegrat 00:00: mouth [place] ing tablet 00 every 8 Medica l (eight) Branch hours as needed for Nausea and Vomiting (N/V). ondansetron Yes [id number] 4mg Take 1 Univers 4 mg 1-23 tablet by ity of disintegrat 00:00: mouth [place] ing tablet 00 every 8 Medica l (eight) Branch hours as needed for Nausea and Vomiting (N/V). ondansetron Yes [id number] 4mg Take 1 Univers 4 mg 1-23 tablet by ity of disintegrat 00:00: mouth [place] ing tablet 00 every 8 Medica l (eight) Branch hours as needed for Nausea and Vomiting (N/V). acetaminoph 2019-1 Yes 500mg Take 500 U nivers en 500 mg 2-28 mg by ity of tablet 00:00: mouth. [place] [facility] Branch acetaminoph 2020-1 Yes 500mg Take 500 U nivers en 500 mg 2-28 mg by ity of tablet 00:00: mouth. [place] [facility] Branch acetaminoph 2020-1 Yes 500mg Take 500 U nivers en 500 mg 2-28 mg by ity of tablet 00:00: mouth. [place] [facility] Branch acetaminoph 2020-1 Yes 500mg Take 500 U nivers en 500 mg 2-28 mg by ity of tablet 00:00: mouth. [address] Branch traZODone 2019-1 Yes TAKE ONE Univ ers 100 mg [...] BY MOUTH Medical AT BEDTIME Branch NEEDED. SUMAtriptan 2019- Yes PLEASE SEE Univers 25 mg 1-01 ATTACHED ity of tablet 00:00: FOR DETAILED Medical DIRECTIONS Branch SUMAtriptan 2020-1 Yes PLEASE SEE Univers 25 mg 1-01 ATTACHED ity of tablet 00:00: FOR DETAILED Medical DIRECTIONS Branch SUMAtriptan 2020-1 Yes PLEASE SEE Univers 25 mg 1-01 ATTACHED ity of tablet 00:00: FOR DETAILED Medical DIRECTIONS Branch SUMAtriptan 2020-1 Yes PLEASE SEE Univers 25 mg 1-01 ATTACHED ity of tablet 00:00: FOR DETAILED Medical DIRECTIONS Branch lamoTRIgine 2019- Yes TAKE TWO Un [...] Yes INHALE ONE Uni vers HFA 90 9-29 (1) ity of mcg/actuati 00:00: PUFF(S) BY [place] on inhaler 00 MOUTH Medical EVERY FOUR Branch HOURS. VENTOLIN 2020-0 Yes INHALE ONE Uni vers HFA 90 9-29 (1) ity of mcg/actuati 00:00: PUFF(S) BY [place] on inhaler 00 MOUTH Medical EVERY FOUR Branch HOURS. VENTOLIN 2020-0 Yes INHALE ONE Uni vers HFA 90 9-29 (1) ity of mcg/actuati 00:00: PUFF(S) BY [place] on inhaler 00 MOUTH Medical EVERY FOUR Branch HOURS. VENTOLIN 2020-0 Yes INHALE ONE Uni vers HFA 90 9-29 (1) ity of mcg/actuati 00:00: PUFF(S) BY [place] on inhaler 00 MOUTH Medical EVERY FOUR Branch HOURS. proMETHazin 2020-0 Yes [id number] 25mg Take 1 Univers e 25 mg 6-23 tablet by ity of tablet 00:00: mouth [place] 00 every 6 Medical (six) Branch hours as needed for Nausea and Vomiting (N/V). proMETHazin 2020-0 Yes [id number] 25mg Take 1 Univers e 25 mg 6-23 tablet by ity of tablet 00:00: mouth [place] 00 every 6 Medical (six) Branch hours as needed for Nausea and Vomiting (N/V). proMETHazin 2020-0 Yes [id number] 25mg Take 1 Univers e 25 mg 6-23 tablet by ity of tablet 00:00: mouth [place] 00 every 6 Medical (six) Branch hours as needed for Nausea and Vomiting (N/V). proMETHazin 2020-0 Yes [id number] 25mg Take 1 Univers e 25 mg 6-23 tablet by ity of tablet 00:00: mouth [place] 00 every 6 Medical (six) Branch hours as needed for Nausea and Vomiting (N/V). hydrOXYzine 2018-09 Yes Univer s 25 mg 2-06 ity of capsule 00:00: [place] 00 Medical Branch hydrOXYzine 2018-09 Yes Univer s 25 mg 2-06 ity of capsule 00:00: [place] 00 Medical Branch hydrOXYzine 2018- Yes Univer s 25 mg 2-06 ity of capsule 00:00: [place] 00 Medical Branch hydrOXYzine 2018-09 Yes Univer s 25 mg 2-06 ity of capsule 00:00: [place] [address] [facility] Branch STELA 45 2018-09 Yes INJECT Unive rs mg/0.5 mL 1-26 45MG (1 ity of SC 00:00: SYRINGE) [place] injection 00 SUBCUTANEO Medi abhishek USLY EVERY Branch 8 WEEKS. STELA 45 2018-09 Yes INJECT Unive rs mg/0.5 mL 1-26 45MG (1 ity of SC 00:00: SYRINGE) [place] injection 00 SUBCUTANEO Medi abhishek USLY EVERY Branch 8 WEEKS. TERRI 45 2018-09 Yes INJECT Unive rs mg/0.5 mL 1-26 45MG (1 ity of SC 00:00: SYRINGE) [place] injection 00 SUBCUTANEO Medi abhishek USLY EVERY Branch 8 WEEKS. TERRI 45 2018-09 Yes INJECT Unive rs mg/0.5 mL 1-26 45MG (1 ity of SC 00:00: SYRINGE) [place] injection 00 SUBCUTANEO Medi abhishek USLY EVERY Branch 8 WEEKS. Immunizations Ordered Filled Immunization Date Status Comments Sourc e Immunization Name Name Influenza Virus 2020-06-23 Completed Universit y of Vaccine Quad .5 mL 00:00:00 [place] Medical IM 6+ MO Branch Influenza Virus 2020-06-23 Completed Universit y of Vaccine Quad .5 mL 00:00:00 [place] Medical IM 6+ MO Branch Influenza Virus 2020-06-23 Completed Universit y of Vaccine Quad .5 mL 00:00:00 [place] Medical IM 6+ MO Branch Influenza Virus 2020-06-23 Completed Universit y of Vaccine Quad .5 mL 00:00:00 [facility] IM 6+ MO Branch Influenza Virus 2019-08-06 Completed Universit y of Vaccine 00:00:00 [facility] Influenza Virus 2019-08-06 Completed Universit y of Vaccine 00:00:00 [facility] Influenza Virus 2019-08-06 Completed Universit y of Vaccine 00:00:00 [facility] Influenza Virus 2019-08-06 Completed Universit y of Vaccine 00:00:00 [facility] Vital Signs Vital Name Observation Time Observation Value Comments Source Systolic blood 2022-02-04 13:55:00 132 mm[Hg] Univer sity of pressure [facility] Diastolic blood 2022-02-04 13:55:00 77 mm[Hg] Unive rsity of pressure [facility] Heart rate 2022-02-04 13:55:00 90 /min Universi ty [facility] Body weight 2022-02-04 13:55:00 85.503 kg Universi [facility] BMI 2022-02-04 13:55:00 33.39 kg/m2 Universi [facility] Oxygen saturation in 2022-02-04 13:55:00 97 /min University of Arterial blood by [facility] Pulse oximetry Branch Systolic blood 2022-01-09 15:45:00 128 mm[Hg] Univer sity of pressure [facility] Diastolic blood 2022-01-09 15:45:00 77 mm[Hg] Unive rsity of pressure [facility] Heart rate 2022-01-09 15:45:00 79 /min Universi ty [facility] Oxygen saturation in 2022-01-09 15:45:00 98 /min University of Arterial blood by [facility] Pulse oximetry [place] Body temperature 2022-01-09 13:16:00 36.39 [facility] Respiratory rate 2022-01-09 13:16:00 16 /[facility] Body height 2022-01-09 13:16:00 160 cm [facility] Body weight 2022-01-09 13:16:00 83.915 kg [facility] BMI 2022-01-09 13:16:00 32.77 kg/m2 [facility] Procedures This patient has no known procedures. Encounters Start End Encounter Admission Attending Care Care Encounter Source Date/Time Date/Time Type Type Clinicians Facility Department ID 2022-03-05 2022-03-05 Outpatient R [facility] [id number] Univers 09:00:00 09:00:00 [id number] ity of [facility] 2022-02-04 2022-02-04 Nurse Nurse, Vtc Int Med Allergy [facility] 1..[id number] Univers 09:00:00 09:30:00 Visit Mikki Roman MULTISPEC 350.1 .13.10 ity of [place] 4[place]2.686 [place] [id number] [address] [facility] 2022-02-04 2022-02-04 [facility] [id number] [facility] 09:00:00 09:00:00 [facility]I [facility] 2022-01-29 2022-01-29 [facility] [id number] Univers 00:00:00 00:00:00 Catrachita Oconnor MULTISPEC 350.1.13.10 ity [place] 4[place] [id number] [address] DI[facility]ET[facility]IC 2022-01-27 2022-01-27 Malachi Martinez [facility] [id number] Univers 00:00:00 00:00:00 Rosio HEALTH 350.1.13.10 it y of [place] 4.2.7.2.686 [place] as ALAN?BLEA [id number] Vt benjamin BRYANT [address] [place] [facility] 2022-01-09 2022-01-09 Office Jess [facility] [id number] [facility] 08:30:00 11:32:35 Visit Catrachita Oconnor RANDAL [id number] ity [place] 4[place]2.[place] [id number] [facility] AND DENIA [address] [place] [facility] 2020-03-19 2020-03-19 Orders Doctor SONJA [id number] [id number] 00:00:00 00:00:00 Only Unassigned, DEXTER 350.1.13.10 [facility] 4.2.7.2.686 [id number] 2020-02-28 2020-02-28 Transition Muna Tello 1.2.840.114 [id number] 00:00:00 00:00:00 of Care Marley Eyad 350.1.13.10 [place] 4.2.7.2.686 [id number] 2020-02-23 2020-02-27 Hospital Magalys Carreno [id number] 21:57:28 16:56:00 Encounter Michael Maciej Quiles 350.1.13.10 [facility] 4.2.7.2.686 [id number] 2020-01-31 2020-02-02 [facility] Annamaria Cardenas [facility] [id number] 13:56:16 12:50:00 Encounter Keegan Owen [id number] [place] [id number] [place] [phone] [id number] 2020-01-31 2020-01-31 Orders Doctor SONJA [id number] 00:00:00 00:00:00 Only Unassigned, DEXTER [id number] [facility] [id number] Results This patient has no known results.
[2022-02-07] MEDS ORDERED: DIPHENHYDRAMINE 50 MG/ML VIAL ONE (01:30)
[2022-02-07] MEDS ORDERED: ALBUTEROL 2.5 MG/3 ML NEB SOL ONE (01:30)
[2022-02-07] MEDS ORDERED: METHYLPREDNISOLONE 125 MG INJ ONE (01:30)
--- NOTE | 2022-02-07 04:19 | ER ---
Nurse's Notes [facility] Name: Sowmya Juarez Age: 36 yrs Sex: Female : 1985 Arrival Date: 02/07/2022 Time: 01:29 Bed 18 Private MD: Diagnosis: Allergic reaction;Wheezing Presentation: 02/07 01:29 Chief complaint: EMS states: allergic reaction to unknown source. administered epi 0.3 lg3 auto inject at home. pt states this is idiopathic in origin. Coronavirus screen: Client denies travel out of the [place] in the last 14 days. At this time, the client does not indicate any symptoms associated with coronavirus-19. Ebola Screen: No symptoms or risks identified at this time. Initial Sepsis Screen: Does the patient meet any 2 criteria? No. Patient's initial sepsis screen is negative. Does the patient have a suspected source of infection? No. Patient's initial sepsis screen is negative. Risk Assessment: Do you want to hurt yourself or someone else? Patient reports no desire to harm self or others. Onset of symptoms was February 07, 2022 at 01:00. 01:29 Method Of Arrival: EMS: [facility] lg3 01:29 Acuity: KALYN 2 lg3 Triage Assessment: 01:32 General: Appears in no apparent distress. uncomfortable, Behavior is calm, cooperative, lg3 anxious. Pain: Denies pain. EENT: No deficits noted. No signs and/or symptoms were reported regarding the EENT system. Neuro: No deficits noted. [place] Agitation-Sedation Scale (RASS): 0 - Alert and Calm Level of Consciousness is awake, alert, obeys commands, Oriented to person, place, time, situation. Cardiovascular: No deficits noted. Denies chest pain, Capillary refill < 3 seconds Clubbing of nail beds is absent JVD is absent Patient's skin is warm and dry. Rhythm is sinus tachycardia. Respiratory: Airway is patent Trachea midline Respiratory effort is even, pursed lip, Respiratory pattern is tachypnea Breath sounds with wheezes bilaterally. GI: No deficits noted. No signs and/or symptoms were reported involving the gastrointestinal system. Abdomen is round non-distended. : No deficits noted. No signs and/or symptoms were reported regarding the genitourinary system. Derm: No deficits noted. No signs and/or symptoms reported regarding the dermatologic system. Skin is intact, is healthy with good turgor, Skin is dry, Skin temperature is warm. Musculoskeletal: No deficits noted. No signs and/or symptoms reported regarding the musculoskeletal system. Circulation, motion, and sensation intact. Range of motion: intact in all extremities. 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:32 LMP N/A - Hysterectomy lg3 Historical: - Allergies: 01:32 Compazine; lg3 01:32 Prochlorperazine; lg3 01:32 prochlorperazine Edisylate; lg3 01:32 Prochlorperazine Maleate; lg3 - Home Meds: 01:32 atorvastatin Oral [Active]; Lamictal Oral [Active]; Metoprolol Tartrate Oral [Active]; lg3 Pepcid Oral [Active]; Prednisone Oral [Active]; Risperdal Oral [Active]; Singulair Oral [Active]; xolair injection 3X monthly [Active]; - PMHx: 01:32 Bipolar disorder; Crohn's; Hyperlipidemia; Hypertension; Migraines; lg3 - PSHx: 01:32 Appendectomy; section; Cholecystectomy; Total abdominal hysterectomy; lg3 - Immunization history:: Adult Immunizations up to date, Client reports having NOT received the Covid vaccine. - Social history:: Smoking status: Patient denies any tobacco usage or history of. Patient/guardian denies using alcohol, street drugs. Screenin:36 Abuse screen: Denies threats or abuse. Denies injuries from another. Nutritional lg3 screening: No deficits noted. Tuberculosis screening: No symptoms or risk factors identified. Fall Risk None identified. Assessment: 01:36 General: see triage assessment . lg3 02:44 General: Appears in no apparent distress. comfortable, Behavior is calm, cooperative. lg3 Pain: Denies pain. Respiratory: No deficits noted. Breath sounds are clear bilaterally. 03:46 Reassessment: Patient appears in no apparent distress at this time. No changes from lg3 previously documented assessment. Patient and/or family updated on plan of care and expected duration. Pain level reassessed. Patient is alert, oriented x 3, equal unlabored respirations, skin warm/dry/pink. Patient states feeling better. Patient states symptoms have improved. Vital Signs: 01:29 BP 156 / 134; Pulse 111; Resp 22; Temp 98.6(O); Pulse Ox 100% on R/A; Weight 86.18 kg lg3 (R); Height 5 ft. 3 in. (160.02 cm) (R); Pain 0/10; 02:01 BP 138 / 85; Pulse 91; Resp 18; Pulse Ox 98% on R/A; lg3 03:46 BP 134 / 82; Pulse 84; Resp 18; Pulse Ox 99% on R/A; lg3 01:29 Body Mass Index 33.66 (86.18 kg, 160.02 cm) lg3 ED Course: 01:29 Patient arrived in ED. lg3 01:29 Juliana Rivera, BHAVIK is Primary Nurse. lg3 01:32 Triage completed. lg3 01:32 Luigi Cruz DO is Attending Physician. ms3 01:32 Arm band placed on left wrist. lg3 01:36 Patient has correct armband on for positive identification. Bed in low position. Call lg3 light in reach. Side rails up X 1. Client placed on continuous cardiac and pulse oximetry monitoring. NIBP monitoring applied. monitoring manager on. 01:37 Maintain EMS IV. Dressing intact. Good blood return noted. Site clean \T\ dry. Gauge \T\ lg 3 site: 22G right hand . 04:43 No provider procedures requiring assistance completed. IV discontinued, intact, lg3 bleeding controlled, No redness/swelling at site. Pressure dressing applied. Administered Medications: 01:32 Drug: SOLU-Medrol (methylPrednisoLONE) 125 mg Route: IVP; Site: right hand; vc1 04:44 Follow up: Response: No adverse reaction lg3 01:33 Drug: Benadryl (diphenhydrAMINE) 50 mg Route: IVP; Site: right hand; vc1 04:44 Follow up: Response: No adverse reaction lg3 01:34 Drug: Pepcid (famotidine) 20 mg Route: IVP; Site: right hand; vc1 04:44 Follow up: Response: No adverse reaction lg3 01:35 Drug: Albuterol 2.5 mg Route: Inhalation; vc1 01:40 CANCELLED (Other Intervention Used): Benadryl (diphenhydrAMINE) 25 mg IVP once vc1 Medication: 01:36 VIS not applicable for this client. lg3 Outcome: 04:19 Discharge ordered by . ms3 04:44 Discharged to home ambulatory. lg3 04:44 Condition: stable 04:44 Discharge instructions given to patient, Instructed on discharge instructions, medication usage, Demonstrated understanding of instructions, medications. 04:44 Patient left the ED. lg3 Signatures: Juliana Rivera, RN RN lg3 Luigi Cruz DO DO ms3 Cyndee Velasquez, RN RN vc1
--- NOTE | 2022-02-07 04:20 | EDPHYS ---
Physician Documentation [facility] Name: Sowmya Juarez Age: 36 yrs Sex: Female : 1985 Arrival Date: 02/07/2022 Time: 01:29 Bed 18 Private MD: ED Physician Luigi Cruz HPI: 02/07 01:53 This 36 yrs old Female presents to ER via EMS with complaints of thoat tightness, ms3 allergic reaction. 01:53 The patient presents with difficulty swallowing, shortness of breath. Onset: The ms3 symptoms/episode began/occurred acutely, 1 hour(s) ago. Associated signs and symptoms: Pertinent positives: shortness of breath. Possible causes: The patient has no known obvious cause for the symptoms. At home the patient or guardian has treated the symptoms with EpiPen. Severity of symptoms: At their worst the symptoms were moderate this morning. 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: 01:32 LMP N/A - Hysterectomy lg3 Historical: - Allergies: 01:32 Compazine; lg3 01:32 Prochlorperazine; lg3 01:32 prochlorperazine Edisylate; lg3 01:32 Prochlorperazine Maleate; lg3 - Home Meds: 01:32 atorvastatin Oral [Active]; Lamictal Oral [Active]; Metoprolol Tartrate Oral [Active]; lg3 Pepcid Oral [Active]; Prednisone Oral [Active]; Risperdal Oral [Active]; Singulair Oral [Active]; xolair injection 3X monthly [Active]; - PMHx: 01:32 Bipolar disorder; Crohn's; Hyperlipidemia; Hypertension; Migraines; lg3 - PSHx: 01:32 Appendectomy; section; Cholecystectomy; Total abdominal hysterectomy; lg3 - Immunization history:: Adult Immunizations up to date, Client reports having NOT received the Covid vaccine. - Social history:: Smoking status: Patient denies any tobacco usage or history of. Patient/guardian denies using alcohol, street drugs. ROS: 01:53 Constitutional: Negative for fever, and chills. Neck: Negative for injury, pain, and ms3 swelling, Cardiovascular: Negative for chest pain, and palpitations. Abdomen/GI: Negative for abdominal pain, nausea, vomiting, diarrhea, and constipation, MS/Extremity: Negative for injury and deformity, Skin: Negative for injury, rash, and discoloration. 01:53 Respiratory: Positive for shortness of breath. 01:53 All other systems are negative. Exam: 01:53 Constitutional: This is a well developed, well nourished patient who is awake, alert, ms3 and in no acute distress. Head/Face: Normocephalic, atraumatic. Chest/axilla: Normal chest wall appearance and motion. Nontender with no deformity. Cardiovascular: Regular rate and rhythm with a normal S1 and S2. No gallops, murmurs, or rubs. Normal PMI, no JVD. No pulse deficits. Respiratory: Lungs have equal breath sounds bilaterally, clear to auscultation and percussion. No rales, rhonchi or wheezes noted. No increased work of breathing, no retractions or nasal flaring. Abdomen/GI: Soft, non-tender, with normal bowel sounds. No distension or tympany. No guarding or rebound. No evidence of tenderness throughout. Skin: Warm, dry with normal turgor. Normal color with no rashes, no lesions, and no evidence of cellulitis. Psych: Awake, alert, with orientation to person, place and time. Behavior, mood, and affect are within normal limits. 01:53 Respiratory: mild respiratory distress is noted, Respirations: normal, Breath sounds: wheezing: expiratory Vital Signs: 01:29 BP 156 / 134; Pulse 111; Resp 22; Temp 98.6(O); Pulse Ox 100% on R/A; Weight 86.18 kg lg3 (R); Height 5 ft. 3 in. (160.02 cm) (R); Pain 0/10; 02:01 BP 138 / 85; Pulse 91; Resp 18; Pulse Ox 98% on R/A; lg3 03:46 BP 134 / 82; Pulse 84; Resp 18; Pulse Ox 99% on R/A; lg3 01:29 Body Mass Index 33.66 (86.18 kg, 160.02 cm) lg3 MDM: 01:32 Patient medically screened. ms3 01:53 Differential diagnosis: anaphylaxis, bronchospasm. Data reviewed:. ms3 Administered Medications: 01:32 Drug: SOLU-Medrol (methylPrednisoLONE) 125 mg Route: IVP; Site: right hand; vc1 04:44 Follow up: Response: No adverse reaction lg3 01:33 Drug: Benadryl (diphenhydrAMINE) 50 mg Route: IVP; Site: right hand; vc1 04:44 Follow up: Response: No adverse reaction lg3 01:34 Drug: Pepcid (famotidine) 20 mg Route: IVP; Site: right hand; vc1 04:44 Follow up: Response: No adverse reaction lg3 01:35 Drug: Albuterol 2.5 mg Route: Inhalation; vc1 01:40 CANCELLED (Other Intervention Used): Benadryl (diphenhydrAMINE) 25 mg IVP once vc1 Disposition Summary: 02/07/22 04:19 Discharge Ordered Location: Home ms3 Condition: Stable ms3 Diagnosis - Allergic reaction ms3 - Wheezing ms3 Followup: ms3 - With: Private Physician - When: 2 - 3 days - Reason: Re-evaluation by your physician Discharge Instructions: - Discharge Summary Sheet ms3 - Allergies, Adult ms3 Forms: - Medication Reconciliation Form ms3 - Thank You Letter ms3 - Antibiotic Education ms3 - Prescription Opioid Use ms3 Prescriptions: - Prednisone 20 mg Oral Tablet - take 2 tablets by ORAL route once daily for 5 days; 10 tablet; Refills: 0, ms3 Product Selection Permitted Signatures: Juliana Rivera RN RN lg3 Luigi Cruz DO DO ms3 Cyndee Velasquez RN RN vc1 Corrections: (The following items were deleted from the chart) 01:40 01:39 Benadryl (diphenhydrAMINE) 25 mg IVP once ordered. vc1 vc1
[2022-02-07 05:03] VITALS: TEMP 98.6
[2022-02-07 05:14] VITALS: BP 134/82; O2SAT 99
== END 2022-02-07 04:44 | disposition home or self-care (01) ==
LOC: ER 01:25
DX: R06.2 Wheezing (principal); R13.10 Dysphagia, unspecified; R06.02 Shortness of breath; I10 Essential (primary) hypertension; F31.9 Bipolar disorder, unspecified; E78.5 Hyperlipidemia, unspecified; Z88.6 Allergy status to analgesic agent; Z88.8 Allergy status to other drugs, medicaments and biological substances
CPT/HCPCS: 96375; 96374; 99284; J1200; J2930

== ENCOUNTER 2022-04-12 12:54 | Emergency (ER) | payer OTHER ==
--- OUTSIDE RECORDS SUMMARY | 2022-04-12 12:58 | XMS REPORT | Continuity of Care Document ---
:1985 Author Organization [facility] t Address [address] [place] [address] Dr. [address] [place] [address] Care Team Providers Name Role Phone Karma Jackson Primary Care Physician CATRACHITA LINDQUIST Attending Clinician Unavailable Catrachita Lindquist MD Attending Clinician MIKKI ROMAN Attending Clinician Unavailable Nurse, [facility] Allergy Attending Clinician Unavailable Mikki Roman MD Attending Clinician [phone] Rosio Munoz MD Attending Clinician Doctor Unassigned, [place] Attending Clinician Unavailable Marley Tello RN Attending Clinician Unavailable Michael Carreno MD Attending Clinician Annamaria Hines Attending Clinician Keegan Owen MD Attending Clinician Michael Carreno MD Admitting Clinician Keegan Owen MD Admitting Clinician Payers Payer Name Policy Type [...] S/P S/P Disease Active [facility] laparoscop laparoscop 6-19 it y of ic ic 00:00: [place] assisted assisted 00 Medica l vaginal vaginal Branch hysterecto hysterecto my ([facility]) my ([facility]) Crohn Crohn Disease Active Univers disease disease 05-11 ity of 00:00: Medical Branch Obesity Obesity Disease Active Univers (BMI (BMI 9- ity of 30-39.9) 30-39.9) 00:00: Medical Branch Bipolar I Bipolar I Disease Active Overview: Univers disorder, disorder, 7-11 Formattin i ty of most most 00:00: g of this [place] recent recent note Medical episode episode might be Branch depressed depressed different from the original. 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 Allergies, Adverse Reactions, Alerts Allergy Allergy [...] of tobacco Cigarette Smoker University of use [place] [facility] History [facility] o f Alcohol Std Drinks [place] [facility] [place] History [facility] o f Alcohol Binge [place] [facility] Cigarettes smoked 2022-03-31 2022-03-31 Univers ity of current (pack per 00:00:00 00:00:00 [facility] edical day) - Reported Branch Cigarette 2022-03-31 2022-03-31 University of pack-years 00:00:00 00:00:00 [facility] Tobacco use and 2022-03-31 2022-03-31 Smokeless tobacco Un iversity of exposure 00:00:00 00:00:00 non-user [facility] Alcohol intake 2022-03-31 2022-03-31 Current drinker Unive rsity of 00:00:00 00:00:00 of alcohol [facility] (finding) Branch Exposure to 2022-03-20 2022-03-30 Not sure University of SARS-CoV-2 (event) 00:00:00 12:38:00 [facility] Alcohol Comment 2018-05-11 2018-05-11 Occasional Universit y of 00:00:00 00:00:00 [facility] Sex [birth year] Universit y of 00:00:00 00:00:00 [facility] Smoking Status Start Date Stop Date Source Ex-smoker 2022-03-31 00:00:00 2022-03-31 00:00:00 Universi ty of [facility] Medications Ordered Filled Start Stop Current Ordering Indication Dosage Frequency Signature Comments Components Source Medication Medication Date Date Medication? Clinician (SIG) Name Name cetirizine 2022- Yes [id number] 10mg Take 1 Univers 10 mg 04-0225 tablet by ity of tablet 00:00: 05:59 mouth in [place] 00 :00 the Medical morning Branch and 1 tablet in the evening. Do all this for 180 days. omalizumab 2021- No [id number] 150mg Univers (XOLAIR) 03-31 ity of injection 17:30: 16:30 [place] 150 mg 00 :00 [facility] Branch omalizumab 2021- No [id number] 150mg Univers (XOLAIR) 03-31 ity of injection 17:30: 16:29 [place] 150 mg 00 :00 [facility] omalizumab 2021- No [id number] 150mg Univers (XOLAIR) 03-31 ity of injection 17:30: 18:00 [place] 150 mg 00 :00 [facility] omalizumab 2021- No [id number] 150mg 150 mg, Univers (XOLAIR) 03-31 Subcutaneo ity of injection 17:30: 18:00 [place] 150 [place] 00 :00 1 dose, On [facility] 03/31/22 at 1230, Routine
Restricte d use approved by: MIKKI ROMAN MD. (ALLERGY/I MMUNOLOGY) omalizumab 2021- No [id number] 150mg 150 mg, Univers (XOLAIR) 03-31 Subcutaneo ity of injection 17:30: 16:29 [place] 150 mg 00 :00 1 dose, On [facility] 03/31/22 at 1230, Routine
Restricte d use approved by: MIKKI ROMAN MD. (ALLERGY/I MMUNOLOGY) omalizumab 2021- No [id number] 150mg 150 mg, Univers (XOLAIR) 03-31 Subcutaneo ity of injection 17:30: 16:30 [place] 150 mg 00 :00 1 dose, On [facility] 03/31/22 at 1230, Routine
Restricte d use approved by: MIKKI ROMAN MD. (ALLERGY/I MMUNOLOGY) omalizumab 2021- No [id number] 150mg Univers (XOLAIR) 03-05 ity of injection 18:15: 17:11 [place] 150 mg 00 :00 Medical Branch omalizumab 2021- No [id number] 150mg Univers (XOLAIR) 03-05- ity of injection 18:15: 17:11 [place] 150 mg 00 :00 Medical Branch omalizumab 2021- No [id number] 150mg Univers (XOLAIR) 03-05 ity of injection 18:15: 17:11 [place] 150 mg 00 :00 Medical Branch omalizumab 2021- No [id number] 150mg 150 mg, Univers (XOLAIR) 03-05 Subcutaneo ity of injection 18:15: 17:11 [place]CE[place] 150 mg 00 :00 1 dose, On [facility] 03/05/22 at 1315, Routine
Restricte d use approved by: CATRACHITA LINDQUIST MD. (ALLERGY/I MMUNOLOGY) omalizumab 2021- No [id number] 150mg 150 mg, Univers (XOLAIR) 03-05 Subcutaneo ity of injection 18:15: 17:11 [place]CE[place] 150 mg 00 :00 1 dose, On [facility] 03/05/22 at 1315, Routine
Restricte d use approved by: CATRACHITA LINDQUIST MD. (ALLERGY/I MMUNOLOGY) omalizumab 2021- No [id number] 150mg 150 mg, Univers (XOLAIR) 03-05 Subcutaneo ity of injection 18:15: 17:11 [place]CE[place] 150 mg 00 :00 1 dose, On [facility] 03/05/22 at 1315, Routine
Restricte d use approved by: CATRACHITA LINDQUIST MD. (ALLERGY/I MMUNOLOGY) omalizumab 2021- No [id number] 150mg Univers (XOLAIR) 02-04 ity of injection 16:00: 14:56 [place] 150 mg 00 :00 [facility] omalizumab 2021- No [id number] 150mg Univers (XOLAIR) 02-04 ity of injection 16:00: 14:56 [place] 150 mg 00 :00 [facility] omalizumab 2021- No [id number] 150mg Univers (XOLAIR) 02-04 ity of injection 16:00: 14:55 [place] 150 mg 00 :00 [facility] omalizumab 2021- No [id number] 150mg 150 mg, Univers (XOLAIR) 02-04 Subcutaneo ity of injection 16:00: 14:55 [place]CE[place] 150 mg 00 :00 1 dose, On [facility] 02/04/22 Branch at 1100, Routine
Restricte d use approved by: MIKKI ROMAN MD. (ALLERGY/I MMUNOLOGY) omalizumab 2021- No [id number] 150mg 150 mg, Univers (XOLAIR) 02-04 Subcutaneo ity of injection 16:00: 14:56 [place]CE, [place] 150 mg 00 :00 1 dose, On Wed02/04/22 Branch at 1100, Routine
Restricte d use approved by: MIKKI ROMAN MD. (ALLERGY/I MMUNOLOGY) omalizumab 2021- No [id number] 150mg 150 mg, Univers (XOLAIR) 02-04 Subcutaneo ity of injection 16:00: 14:56 [place]CE, [place] 150 mg 00 :00 1 dose, On Wed02/04/22 Branch at 1100, Routine
Restricte d use approved by: MIKKI ROMAN MD. (ALLERGY/I MMUNOLOGY) omalizumab 2021- No [id number] 150mg Univers (XOLAIR) 01-09 ity of injection 17:15: 16:08 [place] 150 mg 00 :00 [facility] omalizumab 2021- No [id number] 150mg Univers (XOLAIR) 01-09 ity of injection 17:15: 16:07 [place] 150 mg 00 :00 [facility] omalizumab 2021- No [id number] 150mg 150 mg, Univers (XOLAIR) 01-09 Subcutaneo ity of injection 17:15: 16:07 [place], ONCE, [place] 150 mg 00 :00 1 dose, On Medical Wed01/09/22 Branch at 1215, Routine
Restricte d use approved by: CATRACHITA LINDQUIST MD. (ALLERGY/I MMUNOLOGY) omalizumab 2021- No [id number] 150mg 150 mg, Univers (XOLAIR) 01-09 Subcutaneo ity of injection 17:15: 16:08 [place], ONCE, [place] 150 mg 00 :00 1 dose, On Medical 01/09/22 Branch at 1215, Routine
Restricte d use approved by: CATRACHITA LINDQUIST MD. (ALLERGY/I MMUNOLOGY) famotidine 2-0 Yes [id number] 20mg Take 1 U nivers (PEPCID) 20 5-06 tablet by ity of mg tablet 00:00: mouth 2 (two) Medical times Branch daily. montelukast 2022-0 Yes [id number] 10mg Take 1 Univers 10 mg 5-06 tablet by ity of tablet 00:00: mouth [place] 00 daily. Medical Branch omalizumab 2021-0 Yes 450mg inject 3 Un yesenia (XOLAIR) 5-06 Syringes ity of 150 mg/mL 00:00: under the [place] as Syrg 00 skin every Medical 4 (four) Branch weeks. famotidine 2021-0 Yes [id number] 20mg Take 1 U nivers (PEPCID) 20 5-06 tablet by ity of mg tablet 00:00: mouth 2 (two) Medical times Branch daily. montelukast 2-0 Yes [id number] 10mg Take 1 Univers 10 mg 5-06 tablet by ity of tablet 00:00: mouth [place] 00 daily. Medical Branch omalizumab 2021-0 Yes 450mg inject 3 Un yesenia (XOLAIR) 5-06 Syringes ity of 150 mg/mL 00:00: under the [place] as Syrg 00 skin every Medical 4 (four) Branch weeks. famotidine 2022-0 Yes [id number] 20mg Take 1 U nivers (PEPCID) 20 5-06 tablet by ity of mg tablet 00:00: mouth 2 (two) Medical times Branch daily. montelukast 2022-0 Yes [id number] 10mg Take 1 Univers 10 mg 5-06 tablet by ity of tablet 00:00: mouth [place] 00 daily. Medical Branch omalizumab 2-0 Yes 450mg inject 3 Un yes[place] (XOLAIR) 5-06 Syringes ity of 150 mg/mL 00:00: under the [place] as Syrg 00 skin every Medical 4 (four) Branch weeks. famotidine 2022-0 Yes [id number] 20mg Take 1 U nivers (PEPCID) 20 5-06 tablet by ity of mg tablet 00:00: mouth 2 00 (two) Medical times Branch daily. montelukast 2-0 Yes [id number] 10mg Take 1 Univers 10 mg 5-06 tablet by ity of tablet 00:00: mouth [place] 00 daily. Medical Branch omalizumab 2-0 Yes 450mg inject 3 Un yes[place] (XOLAIR) 5-06 Syringes ity of 150 mg/mL 00:00: under the [place] as Syrg 00 skin every Medical 4 (four) Branch weeks. famotidine 2-0 Yes [id number] 20mg Take 1 U nivers (PEPCID) 20 5-06 tablet by ity of mg tablet 00:00: mouth (two) Medical times Branch daily. montelukast 2-0 Yes [id number] 10mg Take 1 Univers 10 mg 5-06 tablet by ity of tablet 00:00: mouth [place] 00 daily. Medical Branch omalizumab 2-0 Yes 450mg inject 3 Un yesenia (XOLAIR) 5-06 Syringes ity of 150 mg/mL 00:00: under the [place] as Syrg 00 skin every Medical 4 (four) Branch weeks. famotidine 2-0 Yes [id number] 20mg Take 1 U nivers (PEPCID) 20 5-06 tablet by ity of mg tablet 00:00: mouth (two) Medical times Branch daily. montelukast 2-0 Yes [id number] 10mg Take 1 Univers 10 mg 5-06 tablet by ity of tablet 00:00: mouth 00 daily. Medical Branch omalizumab 2-0 Yes 450mg inject 3 Un yes[place] (XOLAIR) 5-06 Syringes ity of 150 mg/mL 00:00: under the [place] as Syrg 00 skin every Medical 4 (four) Branch weeks. famotidine 2022-0 Yes [id number] 20mg Take 1 U nivers (PEPCID) 20 5-06 tablet by ity of mg tablet 00:00: mouth 2 (two) Medical times Branch daily. montelukast 2022-0 Yes [id number] 10mg Take 1 Univers 10 mg 5-06 tablet by ity of tablet 00:00: mouth [place] 00 daily. Medical Branch omalizumab Yes 450mg inject 3 Un yes[place] (XOLAIR) 5-06 Syringes ity of 150 mg/mL 00:00: under the [place] as Syrg 00 skin every Medical 4 (four) Branch weeks. ondansetron 0 Yes [id number] 4mg Take 1 Univers 4 mg 3-19 tablet by ity of disintegrat 00:00: mouth [place] ing tablet 00 every 8 Medica l (eight) Branch hours as needed for Nausea and Vomiting (N/V). ondansetron 0 Yes [id number] 4mg Take 1 Univers 4 mg 3-19 tablet by ity of disintegrat 00:00: mouth [place] ing tablet 00 every 8 Medica l (eight) Branch hours as needed for Nausea and Vomiting (N/V). ondansetron 0 Yes [id number] 4mg Take 1 Univers 4 mg 3-19 tablet by ity of disintegrat 00:00: mouth [place] ing tablet 00 every 8 Medica l (eight) Branch hours as needed for Nausea and Vomiting (N/V). ondansetron Yes [id number] 4mg Take 1 Univers 4 mg 3-19 tablet by ity of disintegrat 00:00: mouth [place] ing tablet 00 every 8 Medica l (eight) Branch hours as needed for Nausea and Vomiting (N/V). ondansetron 0 Yes [id number] 4mg Take 1 Univers 4 mg 3-19 tablet by ity of disintegrat 00:00: mouth [place] ing tablet 00 every 8 Medica l (eight) Branch hours as needed for Nausea and Vomiting (N/V). ondansetron 0 Yes [id number] 4mg Take 1 Univers 4 mg 3-19 tablet by ity of disintegrat 00:00: mouth [place] ing tablet 00 every 8 Medica l (eight) Branch hours as needed for Nausea and Vomiting (N/V). ondansetron 0 Yes [id number] 4mg Take 1 Univers 4 mg 3-19 tablet by ity of disintegrat 00:00: mouth [place] ing tablet 00 every 8 Medica l (eight) Branch hours as needed for Nausea and Vomiting (N/V). predniSONE 2021-2021- No [id number] 1 PO BID x Univers 20 mg 3-19 05-06 4 days ity of tablet 00:00: 00:00 [place] 00 :00 Medical Branch omalizumab 2-0 Yes 300mg inject 2.4 Univers (XOLAIR) 3-11 mL under ity of 150 mg 00:00: the skin [place] injection 00 once every [facility] month. Branch omalizumab 2022-0 Yes 300mg inject 2.4 Univers (XOLAIR) 3-11 mL under ity of 150 mg 00:00: the skin [place] injection 00 once every [facility] month. Branch omalizumab 2022-0 Yes 300mg inject 2.4 Univers (XOLAIR) 3-11 mL under ity of 150 mg 00:00: the skin [place] injection 00 once every [facility] month. Branch omalizumab 2022-0 Yes 300mg inject 2.4 Univers (XOLAIR) 3-11 mL under ity of 150 mg 00:00: the skin [place] injection 00 once every [facility] month. Branch omalizumab 2022-0 Yes 300mg inject 2.4 Univers (XOLAIR) 3-11 mL under ity of 150 mg 00:00: the skin [place] injection 00 once every [facility] month. Branch omalizumab 2-0 Yes 300mg inject 2.4 Univers (XOLAIR) 3-11 mL under ity of 150 mg 00:00: the skin [place] injection 00 once every [facility] month. Branch omalizumab 2022-0 Yes 300mg inject 2.4 Univers (XOLAIR) 3-11 mL under ity of 150 mg 00:00: the skin [place] injection 00 once every [facility] month. Branch omalizumab 2022-0 Yes [id number] 300mg inject 2 Univers (XOLAIR) 3-04 Syringes ity of 150 mg/mL 00:00: under the [place] as Syrg 00 skin every Medical 4 (four) Branch weeks. omalizumab 2022-0 Yes [id number] 300mg inject 2 Univers (XOLAIR) 3-04 Syringes ity of 150 mg/mL 00:00: under the [place] as Syrg 00 skin every Medical 4 (four) Branch weeks. omalizumab 2022-0 Yes [id number] 300mg inject 2 Univers (XOLAIR) 3-04 Syringes ity of 150 mg/mL 00:00: under the [place] as Syrg 00 skin every Medical 4 (four) Branch weeks. omalizumab 2022-0 Yes [id number] 300mg inject 2 Univers (XOLAIR) 3-04 Syringes ity of 150 mg/mL 00:00: under the [place] Syrg 00 skin every Medical 4 (four) Branch weeks. omalizumab 2022-0 Yes [id number] 300mg inject 2 Univers (XOLAIR) 3-04 Syringes ity of 150 mg/mL 00:00: under the [place] Syrg 00 skin every Medical 4 (four) Branch weeks. omalizumab 2022-0 Yes [id number] 300mg inject 2 Univers (XOLAIR) 3-04 Syringes ity of 150 mg/mL 00:00: under the [place] Syrg 00 skin every Medical 4 (four) Branch weeks. omalizumab 2022-0 Yes [id number] 300mg inject 2 Univers (XOLAIR) 3-04 Syringes ity of 150 mg/mL 00:00: under the [place] Syrg 00 skin every Medical 4 (four) Branch weeks. dicyclomine 2022-0 Yes 10mg Take 10 mg Univers (BENTYL) 10 2-10 by mouth 4 it y of mg capsule 14:50: (four) [place] 58 times Medical daily. Branch dicyclomine 2022-0 Yes 10mg Take 10 mg Univers (BENTYL) 10 2-10 by mouth 4 it y of mg capsule 14:50: (four) [place] 58 times Medical daily. Branch dicyclomine 2022-0 Yes 10mg Take 10 mg Univers (BENTYL) 10 2-10 by mouth 4 it y of mg capsule 14:50: (four) [place] 58 times Medical daily. Branch dicyclomine 2022-0 Yes 10mg Take 10 mg Univers (BENTYL) 10 2-10 by mouth 4 it y of mg capsule 14:50: (four) [place] 58 times Medical daily. Branch dicyclomine 2022-0 Yes 10mg Take 10 mg Univers (BENTYL) 10 2-10 by mouth 4 it y of mg capsule 14:50: (four) [place] 58 times Medical daily. Branch dicyclomine 2022-0 Yes 10mg Take 10 mg Univers (BENTYL) 10 2-10 by mouth 4 it y of mg capsule 14:50: (four) [place] 58 times Medical daily. Branch dicyclomine 2021-0 Yes 10mg Take 10 mg Univers (BENTYL) 10 2-10 by mouth 4 it y of mg capsule 14:50: (four) [place] 58 times Medical daily. Branch azelastine 2021-0 Yes [id number] 1{spray Use 1 Univers 137 mcg 1-22 } [place] in ity of (0.1 %) 00:00: each [place] nasal spray 00 nostril 2 Med ical (two) Branch times daily. Use in each nostril as directed fluticasone 2021-0 Yes [id number] 1{spray Use 1 Univers propionate 1-22 } [place] in ity o f 50 00:00: each [place] mcg/actuati 00 nostril Medic al on nasal daily. Branch spray azelastine 2021-0 Yes [id number] 1{spray Use 1 Univers 137 mcg 1-22 } [place] in ity of (0.1 %) 00:00: each [place] nasal spray 00 nostril 2 Med ical (two) Branch times daily. Use in each nostril as directed fluticasone 2021-0 Yes [id number] 1{spray Use 1 Univers propionate 1-22 } [place] in ity o f 50 00:00: each [place] mcg/actuati 00 nostril Medic al on nasal daily. Branch spray azelastine 2021-0 Yes [id number] 1{spray Use 1 Univers 137 mcg 1-22 } [place] in ity of (0.1 %) 00:00: each [place] nasal spray 00 nostril 2 Med ical (two) Branch times daily. Use in each nostril as directed fluticasone 2021-0 Yes [id number] 1{spray Use 1 Univers propionate 1-22 } [place] in ity o f 50 00:00: each [place] mcg/actuati 00 nostril Medic al on nasal daily. Branch spray azelastine 2021-0 Yes [id number] 1{spray Use 1 Univers 137 mcg 1-22 } [place] in ity of (0.1 %) 00:00: each [place] nasal spray 00 nostril 2 Med ical (two) Branch times daily. Use in each nostril as directed fluticasone 2021-0 Yes [id number] 1{spray Use 1 Univers propionate 1-22 } [place] in ity o f 50 00:00: each [place] mcg/actuati 00 nostril Medic al on nasal daily. Branch spray azelastine 2021-0 Yes [id number] 1{spray Use 1 Univers 137 mcg 1-22 } [place] in ity of (0.1 %) 00:00: each [place] nasal spray 00 nostril 2 Med ical (two) Branch times daily. Use in each nostril as directed fluticasone 2021-0 Yes [id number] 1{spray Use 1 Univers propionate 1-22 } [place] in ity o f 50 00:00: each [place] mcg/actuati 00 nostril Medic al on nasal daily. Branch spray azelastine 2021-0 Yes [id number] 1{spray Use 1 Univers 137 mcg 1-22 } [place] in ity of (0.1 %) 00:00: each [place] nasal spray 00 nostril 2 Med ical (two) Branch times daily. Use in each nostril as directed fluticasone 2021-0 Yes [id number] 1{spray Use 1 Univers propionate 1-22 } [place] in ity o f 50 00:00: each [place] mcg/actuati 00 nostril Medic al on nasal daily. Branch spray azelastine 2021-0 Yes [id number] 1{spray Use 1 Univers 137 mcg 1-22 } [place] in ity of (0.1 %) 00:00: each [place] nasal spray 00 nostril 2 Med ical (two) Branch times daily. Use in each nostril as directed fluticasone 2021-0 Yes [id number] 1{spray Use 1 Univers propionate 1-22 } [place] in ity o f 50 00:00: each [place] mcg/actuati 00 nostril Medic al on nasal daily. Branch spray EPINEPHrine 2021-0 Yes Univer s 0.3 mg/0.3 1-03 ity of mL 00:00: [place] injection 00 Medical Branch EPINEPHrine 2021-0 Yes Univer s 0.3 mg/0.3 1-03 ity of mL 00:00: [place] injection 00 Medical Branch EPINEPHrine 2021-0 Yes Univer s 0.3 mg/0.3 1-03 ity of mL 00:00: [place] injection 00 Medical Branch EPINEPHrine 2021-0 Yes Univer s 0.3 mg/0.3 1-03 ity of mL 00:00: [place] injection 00 Medical Branch EPINEPHrine 2021-0 Yes Univer s 0.3 mg/0.3 1-03 ity of mL 00:00: [place] injection Medical Branch EPINEPHrine 2021-0 Yes Univer s 0.3 mg/0.3 1-03 ity of mL 00:00: [place] injection Medical Branch EPINEPHrine 2021-0 Yes Univer s 0.3 mg/0.3 1-03 ity of mL 00:00: [place] injection 00 Medical Branch montelukast 2020-09- No [id number] 10mg Take 1 Univers (SINGULAIR) 2-03 05-06 tablet by it y of 10 mg 00:00: 00:00 mouth [place] tablet 00 :00 daily. Medical Branch famotidine 2020-09- No [id number] 20mg Take 1 Univers (PEPCID) 20 2- 05-06 tablet by it y of mg tablet 00:00: 00:00 mouth 2 [place] 00 :00 (two) Medical times Branch daily. cetirizine Yes [id number] 10mg Take 1 U nivers 10 mg 8-06 tablet by ity of tablet 00:00: mouth 2 (two) Medical times Branch daily. cetirizine Yes [id number] 10mg Take 1 U nivers 10 mg 8-06 tablet by ity of tablet 00:00: mouth 2 00 (two) Medical times Branch daily. cetirizine Yes [id number] 10mg Take 1 U nivers 10 mg 8-06 tablet by ity of tablet 00:00: mouth 2 00 (two) Medical times Branch daily. cetirizine Yes [id number] 10mg Take 1 U nivers 10 mg 8-06 tablet by ity of tablet 00:00: mouth 2 00 (two) Medical times Branch daily. cetirizine Yes [id number] 10mg Take 1 U nivers 10 mg 8-06 tablet by ity of tablet 00:00: mouth 2 00 (two) Medical times Branch daily. cetirizine 2020- Yes [id number] 10mg Take 1 U nivers 10 mg 8-06 tablet by ity of tablet 00:00: mouth 2 [place] 00 (two) Medical times Branch daily. cetirizine 2022- No [id number] 10mg Take 1 Univers 10 mg 8- tablet by ity of tablet 00:00: 00:00 mouth 2 [place] 00 :00 (two) Medical times Branch daily. atorvastati 2020-0 Yes TAKE 1 Univ ers n 20 mg 7-24 TABLET BY ity of tablet 00:00: MOUTH [place] 00 EVERY DAY Medical Branch DIRECTED atorvastati 2020-0 Yes TAKE 1 Univ ers n 20 mg 7-24 TABLET BY ity of tablet 00:00: MOUTH [place] 00 EVERY DAY Medical Branch DIRECTED atorvastati 2020-0 Yes TAKE 1 Univ ers n 20 mg 7-24 TABLET BY ity of tablet 00:00: [facility] 00 EVERY DAY Medical Branch DIRECTED atorvastati 2020-0 Yes TAKE 1 Univ ers n 20 mg 7-24 TABLET BY ity of tablet 00:00: [facility] 00 EVERY DAY Medical Branch DIRECTED atorvastati 2020-0 Yes TAKE 1 Univ ers n 20 mg 7-24 TABLET BY ity of tablet 00:00: MOUTH [place] 00 EVERY DAY Medical Branch DIRECTED atorvastati 2020-0 Yes TAKE 1 Univ ers n 20 mg 7-24 TABLET BY ity of tablet 00:00: [facility] 00 EVERY DAY Medical Branch DIRECTED atorvastati 2020-0 Yes TAKE 1 Univ ers n 20 mg 7-24 TABLET BY ity of tablet 00:00: MOUTH [place] 00 EVERY DAY Medical Branch DIRECTED albuterol 0 Yes [id number] 2{puff} Inhale 2 Univers 90 6-25 Puffs ity of mcg/actuati 00:00: every 6 [place] on inhaler 00 (six) Medical hours as Branch needed for Wheezing or Shortness of Breath. albuterol 2020-0 Yes [id number] 2{puff} Inhale 2 Univers 90 6-25 Puffs ity of mcg/actuati 00:00: every 6 [place] on inhaler 00 (six) Medical hours as Branch needed for Wheezing or Shortness of Breath. albuterol 0 Yes [id number] 2{puff} Inhale 2 Univers 90 6-25 Puffs ity of mcg/actuati 00:00: every 6 [place] on inhaler 00 (six) Medical hours as Branch needed for Wheezing or Shortness of Breath. albuterol Yes [id number] 2{puff} Inhale 2 Univers 90 6-25 Puffs ity of mcg/actuati 00:00: every 6 [place] on inhaler 00 (six) Medical hours as Branch needed for Wheezing or Shortness of Breath. albuterol Yes [id number] 2{puff} Inhale 2 Univers 90 6-25 Puffs ity of mcg/actuati 00:00: every 6 [place] on inhaler 00 (six) Medical hours as Branch needed for Wheezing or Shortness of Breath. albuterol Yes [id number] 2{puff} Inhale 2 Univers 90 6-25 Puffs ity of mcg/actuati 00:00: every 6 [place] on inhaler 00 (six) Medical hours as Branch needed for Wheezing or Shortness of Breath. albuterol Yes [id number] 2{puff} Inhale 2 Univers 90 6-25 Puffs ity of mcg/actuati 00:00: every 6 [place] on inhaler 00 (six) Medical hours as Branch needed for Wheezing or Shortness of Breath. cyclobenzap Yes TAKE 1 Univ ers rine 10 mg 5-06 TABLET BY ity of tablet 00:00: MOUTH AT [place] [address] BEDTIME Medical DO NOT Branch DRIVE WITH MUSCLE RELAXER cyclobenzap Yes TAKE 1 Univ ers rine 10 mg 5-06 TABLET BY ity of tablet 00:00: MOUTH AT [place] [address] BEDTIME Medical DO NOT Branch DRIVE WITH MUSCLE RELAXER cyclobenzap Yes TAKE 1 Univ ers rine 10 mg 5-06 TABLET BY ity of tablet 00:00: MOUTH AT [place] [address] BEDTIME Medical DO NOT Branch DRIVE WITH MUSCLE RELAXER cyclobenzap Yes TAKE 1 Univ ers rine 10 mg 5-06 TABLET BY ity of tablet 00:00: MOUTH AT [place] [address] BEDTIME Medical DO NOT Branch DRIVE WITH MUSCLE RELAXER cyclobenzap Yes TAKE 1 Univ ers rine 10 mg 5-06 TABLET BY ity of tablet 00:00: MOUTH AT [place] 00 BEDTIME Medical DO NOT Branch DRIVE WITH MUSCLE RELAXER cyclobenzap 0 Yes TAKE 1 Univ ers rine 10 mg 5-06 TABLET BY ity of tablet 00:00: MOUTH AT [place] BEDTIME Medical DO NOT Branch DRIVE WITH MUSCLE RELAXER cyclobenzap 0 Yes TAKE 1 Univ ers rine 10 mg 5-06 TABLET BY ity of tablet 00:00: MOUTH AT [place] 00 BEDTIME Medical DO NOT Branch DRIVE WITH MUSCLE RELAXER ondansetron Yes [id number] 4mg Take 1 Univers 4 mg 1-23 tablet by ity of disintegrat 00:00: mouth [place] ing tablet 00 every 8 Medica l (eight) Branch hours as needed for Nausea and Vomiting (N/V). ondansetron 0 Yes [id number] 4mg Take 1 Univers 4 mg 1-23 tablet by ity of disintegrat 00:00: mouth [place] ing tablet 00 every 8 Medica l (eight) Branch hours as needed for Nausea and Vomiting (N/V). ondansetron 2020-0 Yes [id number] 4mg Take 1 Univers 4 mg 1-23 tablet by ity of disintegrat 00:00: mouth [place] ing tablet 00 every 8 Medica l (eight) Branch hours as needed for Nausea and Vomiting (N/V). ondansetron 2020-0 Yes [id number] 4mg Take 1 Univers 4 mg 1-23 tablet by ity of disintegrat 00:00: mouth [place] ing tablet 00 every 8 Medica l (eight) Branch hours as needed for Nausea and Vomiting (N/V). ondansetron 2020-0 Yes [id number] 4mg Take 1 Univers 4 mg 1-23 tablet by ity of disintegrat 00:00: mouth [place] ing tablet 00 every 8 Medica l (eight) Branch hours as needed for Nausea and Vomiting (N/V). ondansetron 2020-0 Yes [id number] 4mg Take 1 Univers 4 mg 1-23 tablet by ity of disintegrat 00:00: mouth [place] ing tablet 00 every 8 Medica l (eight) Branch hours as needed for Nausea and Vomiting (N/V). ondansetron 2020-0 Yes [id number] 4mg Take 1 Univers 4 mg 1-23 tablet by ity of disintegrat 00:00: mouth [place] ing tablet 00 every 8 Medica l (eight) Branch hours as needed for Nausea and Vomiting (N/V). acetaminoph 2019- Yes 500mg Take 500 U nivers en 500 mg 2-28 mg by ity of tablet 00:00: mouth. [place] [facility] acetaminoph 2019- Yes 500mg Take 500 U nivers en 500 mg 2-28 mg by ity of tablet 00:00: mouth. [place] [facility] acetaminoph 2019- Yes 500mg Take 500 U nivers en 500 mg 2-28 mg by ity of tablet 00:00: mouth. [place] [facility] acetaminoph 2019- Yes 500mg Take 500 U nivers en 500 mg 2-28 mg by ity of tablet 00:00: mouth. [place] [facility] Branch acetaminoph 2019- Yes 500mg Take 500 U nivers en 500 mg 2-28 mg by ity of tablet 00:00: mouth. [place] [facility] Branch acetaminoph 2019- Yes 500mg Take 500 U nivers en 500 mg 2-28 mg by ity of tablet 00:00: mouth. [place] [facility] Branch acetaminoph 2019- Yes 500mg Take 500 U nivers en 500 mg 2-28 mg by ity of tablet 00:00: mouth. [place] [facility] Branch traZODone 2019- Yes TAKE ONE Univ ers 100 mg 1-12 (1) ity of tablet 00:00: TABLET(S) [place] BY [facility] Medical AT BEDTIME Branch NEEDED. traZODone 2019- Yes TAKE ONE Univ ers 100 mg 1-12 (1) ity of tablet 00:00: TABLET(S) [place] BY MOUTH Medical AT BEDTIME Branch NEEDED. traZODone 2019-09 Yes TAKE ONE Univ ers 100 mg 1-12 (1) ity of tablet 00:00: TABLET(S) [place] BY MOUTH Medical AT BEDTIME Branch NEEDED. traZODone 2019- Yes TAKE ONE Univ ers 100 mg 1-12 (1) ity of tablet 00:00: TABLET(S) [place] BY MOUTH Medical AT BEDTIME Branch NEEDED. traZODone 2019- Yes TAKE ONE Univ ers 100 mg 1-12 (1) ity of tablet 00:00: TABLET(S) [place] BY MOUTH Medical AT BEDTIME Branch NEEDED. traZODone 2020- Yes TAKE ONE Univ ers 100 mg 1-12 (1) ity of tablet 00:00: TABLET(S) BY MOUTH Medical AT BEDTIME Branch NEEDED. traZODone 2020-1 Yes TAKE ONE Univ ers 100 mg [...] 00:00: FOR DETAILED Medical DIRECTIONS Branch lamoTRIgine 2020- Yes TAKE TWO Un [place] 100 mg [...] BY MOUTH Medical EVERY Branch MORNING. lamoTRIgine 2020-1 Yes TAKE TWO Un [place] 100 mg 0-28 (2) ity of tablet 00:00: TABLET(S) [place] BY MOUTH Medical EVERY Branch MORNING. lamoTRIgine 2020-1 Yes TAKE TWO Un [place] 100 mg 0-28 (2) ity of tablet 00:00: TABLET(S) BY MOUTH Medical EVERY Branch MORNING. VENTOLIN 2020-0 Yes INHALE ONE Uni vers HFA 90 9-29 (1) ity of mcg/actuati 00:00: PUFF(S) BY [place] on inhaler 00 MOUTH Medical EVERY FOUR Branch HOURS. VENTOLIN 2020-0 Yes INHALE ONE Uni vers HFA 90 9-29 (1) ity of mcg/actuati 00:00: PUFF(S) BY [place] on inhaler 00 MOUTH Medical EVERY FOUR Branch HOURS. VENTOLIN 2020-0 Yes INHALE ONE Uni vers HFA 90 9-29 (1) ity of mcg/actuati 00:00: PUFF(S) BY [place] on inhaler 00 MOUTH Medical EVERY FOUR Branch HOURS. VENTOLIN 2020-0 Yes INHALE ONE Uni vers HFA 90 9-29 (1) ity of mcg/actuati 00:00: PUFF(S) BY [place] on inhaler 00 MOUTH Medical EVERY FOUR Branch HOURS. VENTOLIN 2020-0 Yes INHALE ONE Uni vers HFA 90 9-29 (1) ity of mcg/actuati 00:00: PUFF(S) BY [place] on inhaler 00 MOUTH Medical EVERY FOUR Branch HOURS. VENTOLIN 2020-0 Yes INHALE ONE Uni vers HFA 90 9-29 (1) ity of mcg/actuati 00:00: PUFF(S) BY [place] on inhaler 00 MOUTH Medical EVERY FOUR Branch HOURS. VENTOLIN 2020-0 Yes INHALE ONE Uni vers HFA 90 9-29 (1) ity of mcg/actuati 00:00: PUFF(S) BY [place] on inhaler 00 MOUTH Medical EVERY FOUR Branch HOURS. proMETHazin 2020-0 Yes [id number] 25mg Take 1 Univers e 25 mg 6-23 tablet by ity of tablet 00:00: mouth [place] [id number] every 6 Medical (six) Branch hours as needed for Nausea and Vomiting (N/V). proMETHazin 2020-0 Yes [id number] 25mg Take 1 Univers e 25 mg 6-23 tablet by ity of tablet 00:00: mouth [place] 00 every 6 Medical (six) Branch hours as needed for Nausea and Vomiting (N/V). proMETHazin 2020-0 Yes [id number] 25mg Take 1 Univers e 25 mg 6-23 tablet by ity of tablet 00:00: mouth [place] 00 every 6 Medical (six) Branch hours as needed for Nausea and Vomiting (N/V). proMETHazin 2020-0 Yes [id number] 25mg Take 1 Univers e 25 mg 6-23 tablet by ity of tablet 00:00: mouth [place] 00 every 6 Medical (six) Branch hours as needed for Nausea and Vomiting (N/V). proMETHazin 2020-0 Yes [id number] 25mg Take 1 Univers e 25 mg 6-23 tablet by ity of tablet 00:00: mouth [place] 00 every 6 Medical (six) Branch hours as needed for Nausea and Vomiting (N/V). proMETHazin 2020-0 Yes [id number] 25mg Take 1 Univers e 25 mg 6-23 tablet by ity of tablet 00:00: mouth [place] 00 every 6 Medical (six) Branch hours as needed for Nausea and Vomiting (N/V). proMETHazin 2020-0 Yes [id number] 25mg Take 1 Univers e 25 mg 6-23 tablet by ity of tablet 00:00: mouth [place] 00 every 6 Medical (six) Branch hours as needed for Nausea and Vomiting (N/V). hydrOXYzine 2018-09 Yes Univer s 25 mg 2-06 ity of capsule 00:00: [place] [facility] hydrOXYzine 2018-09 Yes Univer s 25 mg 2-06 ity of capsule 00:00: [address] hydrOXYzine 2018-09 Yes Univer s 25 mg 2-06 ity of capsule 00:00: [address] hydrOXYzine 2018-09 Yes Univer s 25 mg 2-06 ity of capsule 00:00: [address] hydrOXYzine 2018-09 Yes Univer s 25 mg 2-06 ity of capsule 00:00: [address] hydrOXYzine 2018-09 Yes Univer s 25 mg 2-06 ity of capsule 00:00: [place] 00 Medical Branch hydrOXYzine 2018-09 Yes Univer s 25 mg 2-06 ity of capsule 00:00: [place] 00 Medical Branch STELARA 45 2018-09 Yes INJECT Unive rs mg/0.5 mL 1-26 45MG (1 ity of SC 00:00: SYRINGE) [place] injection 00 SUBCUTANEO Medi abhishek USLY EVERY Branch 8 WEEKS. [facility] 45 2018-09 Yes INJECT Unive rs mg/0.5 mL 1-26 45MG (1 ity of SC 00:00: SYRINGE) [place] injection 00 SUBCUTANEO Medi abhishek USLY EVERY Branch 8 WEEKS. [facility] 2018-09 Yes INJECT Unive rs mg/0.5 mL 1-26 45MG (1 ity of SC 00:00: SYRINGE) [place] injection 00 SUBCUTANEO Medi abhishek USLY EVERY Branch 8 WEEKS. [place] [id number] 2018-09 Yes INJECT Unive rs mg/0.5 mL 1-26 45MG (1 ity of SC 00:00: SYRINGE) [place] injection 00 SUBCUTANEO Medi abhishek USLY EVERY Branch 8 WEEKS. [facility] 2018-09 Yes INJECT Unive rs mg/0.5 mL 1-26 45MG (1 ity of SC 00:00: SYRINGE) [place] injection 00 SUBCUTANEO Medi abhishek USLY EVERY Branch 8 WEEKS. [place] [id number] 2018-09 Yes INJECT Unive rs mg/0.5 mL 1-26 45MG (1 ity of SC 00:00: SYRINGE) [place] injection 00 SUBCUTANEO Medi abhishek USLY EVERY Branch 8 WEEKS. [place] [id number] 2018-09 Yes INJECT Unive rs mg/0.5 mL 1-26 45MG (1 ity of SC 00:00: SYRINGE) [place] injection 00 SUBCUTANEO Medi abhishek USLY EVERY Branch 8 WEEKS. Immunizations Ordered Filled Immunization Date Status Comments [facility] e Immunization Name Name Influenza Virus 2020-06-23 Completed Universit y of Vaccine Quad .5 mL 00:00:00 [place] [facility] IM 6+ MO Branch Influenza Virus 2020-06-23 Completed Universit y of Vaccine Quad .5 mL 00:00:00 [place] [facility] IM 6+ MO Branch Influenza Virus 2020-06-23 Completed Universit y of Vaccine [place] .5 mL 00:00:00 [place] [facility] IM 6+ MO Branch Influenza Virus 2020-06-23 Completed Universit y of Vaccine Quad .5 mL 00:00:00 [facility] 6+ MO Branch Influenza Virus 2020-06-23 Completed Universit y of Vaccine Quad .5 mL 00:00:00 [facility] 6+ MO Branch Influenza Virus 2020-06-23 Completed Universit y of Vaccine Quad .5 mL 00:00:00 [facility] 6+ MO Branch Influenza Virus 2020-06-23 Completed Universit y of Vaccine Quad .5 mL 00:00:00 [facility] 6+ MO Branch Influenza Virus 2019-08-06 Completed Universit y of Vaccine 00:00:00 [facility] Influenza Virus 2019-08-06 Completed Universit y of Vaccine 00:00:00 [facility] Influenza Virus 2019-08-06 Completed Universit y of Vaccine 00:00:00 [facility] Influenza Virus 2019-08-06 Completed Universit y of Vaccine 00:00:00 [facility] Influenza Virus 2019-08-06 Completed Universit y of Vaccine 00:00:00 [facility] Influenza Virus 2019-08-06 Completed Universit y of Vaccine 00:00:00 [facility] Influenza Virus 2019-08-06 Completed Universit y of Vaccine 00:00:00 [facility] Vital Signs Vital Name Observation Time Observation Value Comments Source Systolic blood 2022-03-30 18:15:00 138 mm[Hg] Univer sity of [facility] Diastolic blood 2022-03-30 18:15:00 78 mm[Hg] Unive rsity of pressure [facility] Heart rate 2022-03-30 18:00:00 97 /min [facility] Body weight 2022-03-30 18:00:00 80.967 kg [facility] BMI 2022-03-30 18:00:00 31.62 kg/m2 [facility] Oxygen saturation in 2022-03-30 18:00:00 99 /min [facility] Arterial blood by [facility] Pulse oximetry Branch Systolic blood 2022-03-05 13:50:00 131 mm[Hg] Univer sity of pressure [facility] Diastolic blood 2022-03-05 13:50:00 87 mm[Hg] Unive rsity of pressure [facility] Heart rate 2022-03-05 13:35:00 88 /min Universi [facility] Body weight 2022-03-05 13:35:00 83.553 kg Universi ty of [place] [facility] BMI 2022-03-05 13:35:00 32.63 kg/m2 Universi ty [facility] [place] [facility] Oxygen saturation in 2022-03-05 13:35:00 98 /min University of Arterial blood by [facility] Pulse oximetry Branch Systolic blood 2022-02-04 13:55:00 132 mm[Hg] Univer sity of pressure [place] [facility] Diastolic blood 2022-02-04 13:55:00 77 mm[Hg] Unive rsity of pressure [place] [facility] Heart rate 2022-02-04 13:55:00 90 /min [facility]i ty [facility] [place] [facility] Body weight 2022-02-04 13:55:00 85.503 kg Universi ty [facility] [place] [facility] BMI 2022-02-04 13:55:00 33.39 kg/m2 Universi ty of [place] [facility] Oxygen saturation in 2022-02-04 13:55:00 97 /min University of Arterial blood by [facility] Pulse oximetry Branch Systolic blood 2022-01-09 15:45:00 128 mm[Hg] Univer sity of pressure [place] [facility] Diastolic blood 2022-01-09 15:45:00 77 mm[Hg] Unive rsity of pressure [place] [facility] Heart rate 2022-01-09 15:45:00 79 /min Universi ty [facility] [place] [facility] Oxygen saturation in 2022-01-09 15:45:00 98 /min University of Arterial blood by [facility] Pulse oximetry Branch Body temperature 2022-01-09 13:16:00 36.39 Lashawn Univ ersity of [place] [facility] Respiratory rate 2022-01-09 13:16:00 16 /min Univ ersity of [place] [facility] Body height 2022-01-09 13:16:00 160 cm [facility]i ty [facility] [place] [facility] Body weight 2022-01-09 13:16:00 83.915 kg [facility]i ty [facility] [place] [facility] BMI 2022-01-09 13:16:00 32.77 kg/m2 [facility] [place] [facility] Procedures This patient has no known procedures. Encounters Start End Encounter Admission Attending Care Care Encounter Source Date/Time Date/Time Type Type Clinicians Facility Department ID 2022-04-30 2022-04-30 Outpatient Tammi LINDQUIST [facility] [id number] [facility] 09:30:00 09:30:00 CATRACHITA [id number] ity o f [facility] 2022-04-02 2022-04-02 [facility] 1.2.840.114 [id number] Univers 00:00:00 00:00:00 Catrachita Oconnor MULTISPEC 350.1.13.10 ity [place] [id number] [address] DI[facility]ES [facility] 2022-03-30 2022-03-30 [id number] Univers 13:00:00 15:10:07 MIKKI arteaga [facility] 2022-03-30 2022-03-30 Nurse Nurse, [facility] Int Med Allergy [facility] 1.2.840.114 [id number] Univers 13:00:00 15:10:07 Visit Mikki Roman MULTISPEC 350.1 .13.10 it[place] [id number] [facility] AND [address] DIABETES CLINIC 2022-03-30 2022-03-[address] [facility] [id number] Univers 13:00:00 13:00:00 [id number] ity [facility] 2022-03-05 2022-03-05 [facility] [id number] Univers 09:00:00 09:57:41 MIKKI arteaga [facility] 2022-03-05 2022-03-05 Nurse Nurse, [facility] Int Med Allergy [facility] 1.2.840.114 [id number] Univers 09:00:00 09:57:41 Visit Mikki Roman MULTISPEC 350.1 .13.10 ity of IALTY 4.2.7.2.686 [facility] [id number] [address] DIABETES CLINIC 2022-03-05 2022-03-[address] [facility] [id number] Univers 09:00:00 09:00:00 [id number] ity [facility] 2022-02-04 2022-02-04 Nurse Nurse, [facility] Int Med Allergy [facility] 1.2.840.114 [id number] Univers 09:00:00 09:30:00 Visit Mikki Roman 350.1 .13.10 [place] [id number] [address] DIABETES [facility] 2022-02-04 2022-02-04 Outpatient [address] [facility] [id number] Univers 09:00:00 09:00:00 MIKKI arteaga [facility] 2022-01-29 2022-01-29 [facility] 1.2.840.114 [id number] Univers 00:00:00 00:00:00 Catrachita TEE 350.1.13.10 ity of IAL[place] 4.2.7.2.686 [facility] ETHEL [id number] [address] DIABETES [facility] 2022-01-27 2022-01-27 Malachi Martinez [facility] 1.2.840.114 [id number] Univers 00:00:00 00:00:00 [facility] 350.1.13.10 it y of [place] 4.2.7.2.686 Jethro as ALAN?BLEA [id number] [address] MEDICAL OFFICE BUILDING 2022-01-09 2022-01-09 Office [facility] 1.2.840.114 [id number] Univers 08:30:00 11:32:35 Visit Catrachita TEE 350.1.13.10 ity of [place] 4.2.7.2.686 [facility] E[facility]L [id number] [address] DIABETES CLINIC 2020-03-19 2020-03-19 Orders Doctor SONJA 1.2.840.114 [id number] 00:00:00 00:00:00 Only Unassigned, DEXTER 350.1.13.10 [facility] 4.2.7.2.686 [id number] 2020-02-28 2020-02-28 Transition Muna Tello 1.2.840.114 [id number] 00:00:00 00:00:00 of Care Marley Castano 350.1.13.10 [place] 4.2.7.2.686 [id number] 2020-02-23 2020-02-27 [facility] Magalys Carreno [id number] 21:57:28 16:56:00 Encounter Michael Wing Dexter 350.1.13.[address]2.686 [id number] 2020-01-31 2020-02-02 [facility] Annamaria Cardenas [facility] 1.2.840. 114 [id number] 13:56:16 12:50:00 Encounter Keegan Owen 350.1.13.10 [place] 4.2.7.2.686 [place] [id number] 2020-01-31 2020-01-31 Orders Doctor SONJA 1.2.840.114 [id number] 00:00:00 00:00:00 Only Unassigned, DEXTER 350.1.13.10 [facility] 4.2.7.2.686 [id number] Results This patient has no known results.
[2022-04-12] MEDS ORDERED: FAMOTIDINE 20 MG/2 ML VIAL IV ONE (13:25)
[2022-04-12] MEDS ORDERED: LIDOCAINE 1% MPF 5 ML VIAL ONE (13:25)
[2022-04-12] MEDS ORDERED: MAGNESIUM SULFATE 1 gm IVPB 1 GM/100 ML BAG IV ONE (13:25)
[2022-04-12] MEDS ORDERED: NA CHLORIDE 0.9% 1,000 ML ONE ×2 (13:25→14:28)
[2022-04-12 13:41] LABS: Hematocrit 37.8 % (36.0-45.0); Lymphocytes % 43.4 % (15.3-44.8); MCV 82.6 fL (80-100); MPV 7.3 fL (7.6-11.3); RBC Red Blood Cell Count 4.57 M/uL (3.86-4.86)
[2022-04-12] MEDS ORDERED: KCL 20 MEQ/100 mL IVPB 100 ML IV ONE (14:27)
--- NOTE | 2022-04-12 16:43 | EDPHYS ---
Physician Documentation [facility] Name: Sowmya Juarez Age: 37 yrs Sex: Female : 1985 Arrival Date: 04/12/2022 Time: 12:55 Bed 7 Private MD: ED Physician Todd Peña HPI: 04/12 13:12 This 37 yrs old Female presents to ER via EMS with complaints of allergic reaction. snw 13:12 The patient presents to the emergency department with wheezing, Current therapy: snw albuterol inhaler, Xolair IV per Dr. Arnold. "highest dose ever used". Pt states it has been working well. No major break through reactions since November., that began without any particular precipitating event, the patient was reported to have audible wheezing, chest tightness, non-productive cough, Pre-hospital care: rescue inhaler, epi 0.6mg. Onset: The symptoms/episode began/occurred suddenly. Modifying factors: The symptoms are alleviated by nothing, the symptoms are aggravated by exertion. Severity of symptoms: At their worst the symptoms were moderate. The patient has experienced similar episodes in the past, chronically, with the last episode occurring November, today's symptoms are similar. 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 - Social history:: Smoking status: Patient reports the use of cigarette tobacco products, smokes one-half pack cigarettes per day. ROS: 13:11 Eyes: Negative for injury, pain, redness, and discharge, ENT: Negative for injury, snw pain, and discharge, Neck: Negative for injury, pain, and swelling, Cardiovascular: Negative for chest pain, palpitations, and edema. 13:11 Abdomen/GI: Negative for abdominal pain, nausea, vomiting, diarrhea, and constipation, Back: Negative for injury and pain, : Negative for injury, bleeding, discharge, and swelling. 13:11 Abdomen/GI: Negative for abdominal pain, vomiting, diarrhea, and constipation, positive nausea Skin: Negative for injury, rash, and discoloration, Neuro: Negative for headache, weakness, numbness, tingling, and seizure, Psych: Negative for depression, anxiety, suicide ideation, homicidal ideation, and hallucinations. 13:11 Constitutional: Positive for body aches, malaise, shortness of breath. 13:11 Respiratory: Positive for cough, dyspnea on exertion, shortness of breath, wheezing. 13:11 Abdomen/GI: Positive for nausea. Exam: 13:04 Head/Face: Normocephalic, atraumatic. Eyes: Pupils equal round and reactive to light, snw extra-ocular motions intact. Lids and lashes normal. Conjunctiva and sclera are non-icteric and not injected. Cornea within normal limits. Periorbital areas with no swelling, redness, or edema. ENT: Nares patent. No nasal discharge, no septal abnormalities noted. Tympanic membranes are normal and external auditory canals are clear. Oropharynx with no redness, swelling, or masses, exudates, or evidence of obstruction, uvula midline. Mucous membranes moist. Neck: Trachea midline, no thyromegaly or masses palpated, and no cervical lymphadenopathy. Supple, full range of motion without nuchal rigidity, or vertebral point tenderness. No Meningismus. Chest/axilla: Normal chest wall appearance and motion. Nontender with no deformity. No lesions are appreciated. 13:04 Back: No spinal tenderness. No costovertebral tenderness. Full range of motion. Skin: Warm, dry with normal turgor. Normal color with no rashes, no lesions, and no evidence of cellulitis. MS/ Extremity: Pulses equal, no cyanosis. Neurovascular intact. Full, normal range of motion. Neuro: Awake and alert, GCS 15, oriented to person, place, time, and situation. Cranial nerves II-XII grossly intact. Motor strength 5/5 in all extremities. Sensory grossly intact. Cerebellar exam normal. Normal gait. 13:04 Constitutional: The patient appears alert, awake, anxious. 13:04 Cardiovascular: Rate: tachycardic, Rhythm: regular. 13:04 Respiratory: mild respiratory distress is noted, Respirations: accessory muscle usage, shallow respirations, tachypnea, Breath sounds: wheezing: expiratory is heard diffusely. 13:04 Abdomen/GI: Inspection: abdomen appears normal, nausea, gagging at intervals. 13:04 Psych: Behavior/mood is cooperative, anxious, Oriented to person, place, time, Patient has no thoughts/intents to harm self or others. 13:22 ECG was reviewed by the Attending Physician. snw Vital Signs: 12:55 BP 138 / 87; Pulse 126; Resp 26; Temp 98.7(TE); Pulse Ox 100% on Nebulizer Mask; Weight bm7 90.72 kg (R); Height 5 ft. 5 in. (165.10 cm); Pain 0/10; 13:51 BP 138 / 81; Pulse 122; Resp 20; Pulse Ox 98% on 2 lpm NC; bm7 15:37 BP 117 / 59; Pulse 96; Resp 16; Pulse Ox 98% on R/A; Pain 0/10; bm7 12:55 Body Mass Index 33.28 (90.72 kg, 165.10 cm) bm7 MDM: 13:01 Patient medically screened. lucrecia 14:15 Data reviewed: vital signs, nurses notes. Data interpreted: Pulse oximetry: on 4L(s) snw per nasal canula, Interpretation: acceptable, improved since arrival, heartrate decreased, pt states she feels better. Labs with low potassium, will replace. Counseling: I had a detailed discussion with the patient and/or guardian regarding: the historical points, exam findings, and any diagnostic results supporting the discharge/admit diagnosis, the presence of at least one elevated blood pressure reading (>120/80) during this emergency department visit, lab results, radiology results, the need for outpatient follow up, for definitive care. Response to treatment: the patient's symptoms have markedly improved after treatment. 14:21 Counseling: I had a detailed discussion with the patient and/or guardian regarding: snw potassium 3.0, iv replacement in progress.. 04/12 13:04 Order name: CBC with Diff; Complete Time: 13:44 snw 04/12 13:04 Order name: Chem 7; Complete Time: 13:57 snw 04/12 13:04 Order name: Demetrice. Order: 3ml 1% lido in 3ml 0.9ml ns nebulized at 6L ; Complete Time: snw : EC:22 Rate is 103 beats/min. Rhythm is regular. QRS interval is normal. QT interval is snw normal. No ST changes noted. Clinical impression: NSR w/ Non-specific ST/T Changes. Administered Medications: 13: Drug: NS 0.9% 1000 ml Route: IV; Rate: 1000 ml; Site: left forearm; bm7 15:37 Follow up: IV Status: Completed infusion; IV Intake: 1000ml bm7 13:25 Drug: Pepcid (famotidine) 20 mg Route: IVP; Site: left forearm; bm7 14:14 Follow up: Response: No adverse reaction bm7 15:26 Follow up: Response: No adverse reaction bm7 15:26 Follow up: Response: No adverse reaction bm7 13:25 Drug: SOLU-Medrol (methylPrednisoLONE) 125 mg Route: IVP; Site: left forearm; bm7 14:14 Follow up: Response: No adverse reaction 7 13:26 Drug: Magnesium Sulfate 1 grams Route: IVPB; Infused Over: 1 hrs; Site: left forearm; bm7 15:26 Follow up: IV Status: Completed infusion bm7 15:26 Follow up: IV Status: Completed infusion bm7 15:37 Drug: Potassium Chloride 20 mEq Route: IV; Rate: calculated rate; Site: left bm7 antecubital; Disposition Summary: 04/12/22 16:42 Discharge Ordered Location: Home snw Condition: Stable snw Diagnosis - Cough variant asthma snw - Hypokalemia snw Followup: snw - With: Emergency Department - When: - Reason: Trouble breathing, Worsening of condition Followup: snw - With: Private Physician - When: 1 - 2 days - Reason: Recheck today's complaints, Continuance of care, Re-evaluation by your physician Discharge Instructions: - Discharge Summary Sheet snw - Potassium Content of Foods snw - Cough, Adult snw - Hypokalemia snw Forms: - Medication Reconciliation Form snw - Thank You Letter snw - Antibiotic Education snw - Prescription Opioid Use snw Prescriptions: - magnesium oxide - take 400 milligram by ORAL route Every night; 100 tablet; Refills: 0, Product snw Selection Permitted Signatures: Dispatcher [employer] Todd Casiano MD MD cha Waters, Shelly, BEARING GRINDER-C BEARING GRINDER-Csnw Anu Morales, RN RN bm7
--- NOTE | 2022-04-12 16:43 | ER ---
Nurse's Notes [facility] Name: Sowmya Juarez Age: 37 yrs Sex: Female : 1985 Arrival Date: 04/12/2022 Time: 12:55 Bed 7 Private MD: Diagnosis: Cough variant asthma;Hypokalemia Presentation: 04/12 12:55 Chief complaint: EMS states: the patient has a history of unknown allergic reactions bm7 from unknown origins. We have ran on her several times for the same reason. Coronavirus screen: At this time, the client does not indicate any symptoms associated with coronavirus-19. Ebola Screen: No symptoms or risks identified at this time. Initial Sepsis Screen: Does the patient meet any 2 criteria? No. Patient's initial sepsis screen is negative. Does the patient have a suspected source of infection? No. Patient's initial sepsis screen is negative. Risk Assessment: Do you want to hurt yourself or someone else? Patient reports no desire to harm self or others. Onset of symptoms was April 12, 2022. 12:55 Method Of Arrival: EMS: [facility] 12:55 Acuity: KALYN 3 bm7 Triage Assessment: 12:58 General: Appears distressed, uncomfortable, Behavior is cooperative, appropriate for 5 age. Pain: Denies pain. EENT: No deficits noted. No signs and/or symptoms were reported regarding the EENT system. Neuro: No deficits noted. Cardiovascular: Reports shortness of breath. Respiratory: Reports shortness of breath at rest on exertion Breath sounds with wheezes bilaterally. GI: No deficits noted. No signs and/or symptoms were reported involving the gastrointestinal system. : No deficits noted. No signs and/or symptoms were reported regarding the genitourinary system. Derm: No deficits noted. No signs and/or symptoms reported regarding the dermatologic system. Musculoskeletal: No deficits noted. No signs and/or symptoms reported regarding the musculoskeletal system. 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 - Social history:: Smoking status: Patient reports the use of cigarette tobacco products, smokes one-half pack cigarettes per day. Screenin:26 Abuse screen: Denies threats or abuse. Denies injuries from another. Nutritional hb screening: No deficits noted. Tuberculosis screening: No symptoms or risk factors identified. Fall Risk None identified. Assessment: 13:40 Reassessment: No changes from previously documented assessment. Patient and/or family bm7 updated on plan of care and expected duration. Pain level reassessed. Patient is alert, oriented x 3, equal unlabored respirations, skin warm/dry/pink. 14:26 Reassessment: Patient appears in no apparent distress at this time. Patient and/or hb family updated on plan of care and expected duration. Pain level reassessed. Patient is alert, oriented x 3, equal unlabored respirations, skin warm/dry/pink. 15:38 Reassessment: Patient and/or family updated on plan of care and expected duration. Pain bm7 level reassessed. Patient is alert, oriented x 3, equal unlabored respirations, skin warm/dry/pink. Patient states feeling better. Patient states symptoms have improved. 16:37 Reassessment: Patient and/or family updated on plan of care and expected duration. Pain bm7 level reassessed. Patient is alert, oriented x 3, equal unlabored respirations, skin warm/dry/pink. Vital Signs: 12:55 BP 138 / 87; Pulse 126; Resp 26; Temp 98.7(TE); Pulse Ox 100% on Nebulizer Mask; Weight bm7 90.72 kg (R); Height 5 ft. 5 in. (165.10 cm); Pain 0/10; 13:51 BP 138 / 81; Pulse 122; Resp 20; Pulse Ox 98% on 2 lpm NC; bm7 15:37 BP 117 / 59; Pulse 96; Resp 16; Pulse Ox 98% on R/A; Pain 0/10; bm7 12:55 Body Mass Index 33.28 (90.72 kg, 165.10 cm) bm7 ED Course: 12:55 Patient arrived in ED. bm7 12:55 Ching Clark FNP-C is [facility]. snw 12:55 Todd Peña MD is Attending Physician. snw 12:57 Triage completed. bm7 12:58 Anu Morales, RN is Primary Nurse. bm7 12:58 Arm band placed on right wrist. bm7 14:26 Patient has correct armband on for positive identification. hb 15:38 No apparent distress. Resting quietly. Awaiting lab results. bm7 15:38 Door closed. Noise minimized. Lights dimmed. Warm blanket given. Assisted to bathroom. bm7 15:38 Initial lab(s) drawn, by me, sent to lab. EKG done, by ED staff, reviewed by Ching YUAN X-ray(s) taken. 17:23 No provider procedures requiring assistance completed. IV discontinued, intact, hb bleeding controlled, No redness/swelling at site. Administered Medications: 13:25 Drug: NS 0.9% 1000 ml Route: IV; Rate: 1000 ml; Site: left forearm; bm7 15:37 Follow up: IV Status: Completed infusion; IV Intake: 1000ml bm7 13:25 Drug: Pepcid (famotidine) 20 mg Route: IVP; Site: left forearm; bm7 14:14 Follow up: Response: No adverse reaction bm7 15:26 Follow up: Response: No adverse reaction bm7 15:26 Follow up: Response: No adverse reaction bm7 13:25 Drug: SOLU-Medrol (methylPrednisoLONE) 125 mg Route: IVP; Site: left forearm; bm7 14:14 Follow up: Response: No adverse reaction bm7 13:26 Drug: Magnesium Sulfate 1 grams Route: IVPB; Infused Over: 1 hrs; Site: left forearm; bm7 15:26 Follow up: IV Status: Completed infusion bm7 15:26 Follow up: IV Status: Completed infusion bm7 15:37 Drug: Potassium Chloride 20 mEq Route: IV; Rate: calculated rate; Site: left bm7 antecubital; Medication: 15:38 VIS not applicable for this client. bm7 Intake: 15:37 IV: 1000ml; Total: 1000ml. bm7 Outcome: 16:42 Discharge ordered by . snw 17:23 Discharged to home ambulatory. hb 17:23 Condition: stable 17:23 Discharge instructions given to patient, Instructed on discharge instructions, follow up and referral plans. medication usage, Demonstrated understanding of instructions, follow-up care, medications, Prescriptions given X 1. 17:24 Patient left the ED. hb Signatures: Cihng Clark, QUALITY CONTROL EXPERT-C QUALITY CONTROL EXPERT-Csnw Marley Abreu RN RN Anu Morales, RN RN bm7
[2022-04-12 19:01] VITALS: TEMP 98.7
[2022-04-12 19:04] VITALS: O2SAT 98
[2022-04-12 19:09] VITALS: BP 117/59
--- NOTE | 2022-04-13 13:46 | EKG ---
Test Date: 2022-04-12 Test Time: 13:03:19 Line Servicer: RAYO MEASUREMENT RESULTS: Intervals: Rate: 103 LA: 184 QRSD: 80 QT: 366 QTc: 479 [place]: P: 65 LA: 184 QRS: 54 T: 52 INTERPRETIVE STATEMENTS: Sinus tachycardia Cannot rule out Anterior infarct, age undetermined Abnormal ECG Compared to ECG 10/15/2021 08:06:53 Myocardial infarct finding now present Electronically Signed On 04-13-22 13:43:45 CDT by Carlos Abrams
== END 2022-04-12 17:24 | disposition home or self-care (01) ==
LOC: ER 12:54
DX: J45.991 Cough variant asthma (principal); E87.6 Hypokalemia; I10 Essential (primary) hypertension; F31.9 Bipolar disorder, unspecified; F17.210 Nicotine dependence, cigarettes, uncomplicated; Z88.8 Allergy status to other drugs, medicaments and biological substances
CPT/HCPCS: 93005; 85025; 80048; 36415; 99284; J3480; J3475; J7030 ×2

== ENCOUNTER 2022-06-06 20:37 | Emergency (ER) | payer OTHER ==
--- OUTSIDE RECORDS SUMMARY | 2022-06-06 20:41 | XMS REPORT | Continuity of Care Document ---
:1985 Author Organization [facility] t Address [address] [place] [address] Dr. Sh[address]. [address] [place] [address] Care Team Providers Name Role Phone Karma Jackson Primary Care Physician Nurse, [facility] Int Med Allergy Attending Clinician Unavailable Catrachita Lindquist MD Attending Clinician CATRACHITA LINDQUIST Attending Clinician Unavailable Christopher Danyel Hunt Attending Clinician Unavailable Doctor Unassigned, Baron Attending Clinician Unavailable Marley Tello RN Attending [...] different from the original. 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 Allergies, Adverse Reactions, Alerts Allergy Allergy Status Severity Reaction(s) Onset Inactive Treating Comm ents Source Name Type Date Date Clinician Prochlor Propensi Active Anaphylaxis U nivers perazine ty to 6-23 ity of adverse 00:00: [place] reaction 00 Medical s Branch PROCHLOR DRUG Active Anaphylaxis Uni vers PERAZINE INGREDI 6-23 ity of 00:00: [place] [facility] Prochlor Propensi Active Anaphylaxis U nivers perazine ty to 7-10 ity of Edisylat adverse 00:00: [place] e reaction Medical s Branch PROCHLOR DRUG Active Anaphylaxis Uni vers PERAZINE INGREDI 7-10 ity of EDISYLAT 00:00: [place] E 00 Medical Branch Social History Social Habit Start Date Stop Date Quantity Comments Source History of tobacco Cigarette Smoker University of use [place] [facility] History [facility] o f Alcohol Frequency [facility] edical Branch History [facility] University o f Alcohol Std Drinks [place] [facility] History [facility] o f Alcohol Binge [place] [facility] Exposure to 2022-05-18 2022-05-28 Not sure University of SARS-CoV-2 (event) 00:00:00 09:26:00 [facility] Alcohol intake 2022-05-28 2022-05-28 Current drinker Unive rsity of 00:00:00 00:00:00 of alcohol [facility] (finding) Branch Cigarettes smoked 2022-03-31 2022-03-31 Univers ity of current (pack per 00:00:00 00:00:00 ) - Reported Branch Cigarette 2022-03-31 2022-03-31 University of pack-years 00:00:00 00:00:00 [facility] Tobacco use and 2022-03-31 2022-03-31 Smokeless tobacco Un iversity of exposure 00:00:00 00:00:[address] [facility] Alcohol Comment 2018-05-11 2018-05-11 Occasional Universit y of 00:00:00 00:00:00 [facility] Sex [birth year] Universit y of 00:00:00 00:00:00 [facility] Smoking Status Start Date Stop Date Source Ex-smoker 2022-03-31 00:00:00 2022-03-31 00:00:[address] [facility] Medications Ordered Filled Start Stop Current Ordering Indication Dosage Frequency Signature Comments Components Source Medication Medication Date Date Medication? Clinician (SIG) Name Name omalizumab 2021- No [id number] 150mg U nivers (XOLAIR) 05-28 ity of injection 17:45: 17:10 [place] 150 mg 00 :00 [facility] Branch omalizumab 2021- No [id number] 150mg U nivers (XOLAIR) 05-28 ity of injection 17:45: 17:10 [place] 150 mg 00 :00 Medical [facility] omalizumab 2021- No [id number] 150mg U nivers (XOLAIR) 05-28 ity of injection 17:45: 17:09 [place] 150 mg 00 :00 [facility] om[facility] 2021- No [id number] 150mg 150 mg, Univers (XOLAIR) 05-28 Subcutaneo ity of injection 17:45: 17:09 [place] 150 [place] 00 :00 1 dose, On Medical [place] Branch 05/28/22 at 1245, Routine
Restricte d use approved by: CATRACHITA LINDQUIST MD. (ALLERGY/I MMUNOLOGY) omalizumab 2021- No [id number] 150mg 150 mg, Univers (XOLAIR) 05-28 Subcutaneo ity of injection 17:45: 17:10 [place] 150 mg 00 :00 1 dose, On Medical [facility] Branch 05/28/22 at 1245, Routine
Restricte d use approved by: CATRACHITA LINDQUIST MD. (ALLERGY/I MMUNOLOGY) omalizumab 2021- No [id number] 150mg 150 mg, Univers (XOLAIR) 05-28 Subcutaneo ity of injection 17:45: 17:10 [place] 150 mg 00 :00 [facility] dose, [facility] 05/28/22 at 1245, Routine
Restricte d use approved by: CATRACHITA LINDQUIST MD. (ALLERGY/I MMUNOLOGY) omalizumab 2021- No [id number] 150mg U nivers (XOLAIR) 04-30-25 ity of injection 17:30: 16:42 [place] 150 mg 00 :00 Medical Branch omalizumab 2021- No [id number] 150mg U nivers (XOLAIR) 04-30-25 ity of injection 17:30: 16:42 [place] 150 mg 00 :00 Medical Branch omalizumab 2021- No [id number] 150mg U nivers (XOLAIR) 04-30-25 ity of injection 17:30: 16:42 [place] 150 mg 00 :00 Medical Branch omalizumab 2021- No [id number] 150mg 150 mg, Univers (XOLAIR) 04-30 Subcutaneo ity of injection 17:30: 16:42 [place]CE[place] 150 mg 00 :00 1 dose, On Medical [facility] Branch 04/30/22 at 1230, Routine
Restricte d use approved by: CATRACHITA LINDQUIST MD. (ALLERGY/I MMUNOLOGY) omalizumab 2021- No [id number] 150mg 150 mg, Univers (XOLAIR) 04-30 Subcutaneo ity of injection 17:30: 16:42 [place] 150 mg 00 :00 1 dose, On [facility] 04/30/22 at 1230, Routine
Restricte d use approved by: CATRACHITA LINDQUIST MD. (ALLERGY/I MMUNOLOGY) omalizumab 2021- No [id number] 150mg 150 mg, Univers (XOLAIR) 04-30 Subcutaneo ity of injection 17:30: 16:42 [place] 150 mg 00 :00 1 dose, On [facility] 04/30/22 at 1230, Routine
Restricte d use approved by: CATRACHITA LINDQUIST MD. (ALLERGY/I MMUNOLOGY) famotidine Yes [id number] 20mg Take 1 U nivers (PEPCID) 20 8-25 tablet by ity of mg tablet 00:00: mouth in [place] [address] the Medical morning Branch and 1 tablet in the evening. montelukast Yes [id number] 10mg Take 1 Univers 10 mg 8-25 tablet by ity of tablet 00:00: mouth in [place] 00 the Medical morning. Branch famotidine Yes [id number] 20mg Take 1 U nivers (PEPCID) 20 8-25 tablet by ity of mg tablet 00:00: mouth in [facility] s 00 the Medical morning Branch and 1 tablet in the evening. montelukast 0 Yes [id number] 10mg Take 1 Univers 10 mg 8-25 tablet by ity of tablet 00:00: mouth in [place] 00 the Medical morning. Branch famotidine Yes [id number] 20mg Take 1 U nivers (PEPCID) 20 8-25 tablet by ity of mg tablet 00:00: mouth in [facility] 00 the Medical morning Branch and 1 tablet in the evening. montelukast 0 Yes [id number] 10mg Take 1 Univers 10 mg 8-25 tablet by ity of tablet 00:00: mouth in [place] 00 the Medical morning. Branch cetirizine 2022- Yes [id number] 10mg Take 1 Univers 10 mg 7-28 -25 tablet by ity of tablet 00:00: 05:59 mouth in [place] 00 :00 the Medical morning Branch and 1 tablet in the evening. Do all this for 180 days. cetirizine 2022- Yes [id number] 10mg Take 1 Univers 10 mg -03 10-25 tablet by ity of tablet 00:00: 05:59 mouth in [place] 00 :00 the Medical morning Branch and 1 tablet in the evening. Do all this for 180 days. cetirizine 2022- Yes [id number] 10mg Take 1 Univers 10 mg -03 10-25 tablet by ity of tablet 00:00: 05:59 mouth in [place] 00 :00 the Medical morning Branch and 1 tablet in the evening. Do all this for 180 days. omalizumab Yes 450mg inject 3 Un yesenia (XOLAIR) 5-06 Syringes ity of 150 mg/mL 00:00: under the [place] as Syrg 00 skin every Medical 4 (four) Branch weeks. omalizumab Yes 450mg inject 3 Un [place] (XOLAIR) 5-06 Syringes ity of injection 00:00: under the [place] as 00 skin every Medical 4 (four) Branch weeks. omalizumab 0 Yes 450mg inject 3 Un [place] (XOLAIR) 5-06 Syringes ity of injection 00:00: under the [place] as 00 skin every Medical 4 (four) Branch weeks. famotidine 2021- No [id number] 20mg Take 1 Univers (PEPCID) 20 5-02 11-25 tablet by it y of mg tablet 00:00: 00:00 [place] 2 [place] :00 (two) Medical times Branch daily. montelukast 2021- No [id number] 10mg Take 1 Univers 10 mg 5- 08-25 tablet by ity of tablet 00:00: 00:00 mouth [place] 00 :00 daily. Medical Branch ondansetron Yes [id number] 4mg Take 1 Univers 4 mg 3-19 tablet by ity of disintegrat 00:00: mouth [place] ing tablet 00 every 8 Medica l (eight) Branch hours as needed for Nausea and Vomiting (N/V). ondansetron 2022-0 Yes [id number] 4mg Take 1 Univers 4 mg 3-19 tablet by ity of disintegrat 00:00: mouth [place] ing tablet 00 every 8 Medica l (eight) Branch hours as needed for Nausea and Vomiting (N/V). ondansetron 2022-0 Yes [id number] 4mg Take 1 Univers 4 mg 3-19 tablet by ity of disintegrat 00:00: mouth [place] ing tablet 00 every 8 Medica l (eight) Branch hours as needed for Nausea and Vomiting (N/V). dicyclomine 2022-0 Yes 10mg Take 10 mg Univers (BENTYL) 10 2-10 by mouth 4 it y of mg capsule 14:50: (four) [place] 58 times Medical daily. Branch dicyclomine 2022-0 Yes 10mg Take 10 mg Univers (BENTYL) 10 2-10 by mouth 4 it y of mg capsule 14:50: (four) [place] 58 times Medical daily. Branch dicyclomine 2022-0 Yes 10mg Take 10 mg Univers (BENTYL) 10 2-10 by mouth 4 it y of mg capsule 14:50: (four) [place] 58 times Medical daily. Branch azelastine 2022-0 Yes [id number] 1{spray Use 1 Univers 137 mcg 1-22 } [facility] in ity of (0.1 %) 00:00: each [place] nasal spray 00 nostril 2 Med ical (two) Branch times daily. Use in each nostril as directed fluticasone 2022-0 Yes [id number] 1{spray Use 1 Univers propionate 1-22 } [facility] in ity o f 50 00:00: each [place] mcg/actuati 00 nostril Medic al on nasal daily. Branch spray azelastine 2022-0 Yes [id number] 1{spray Use 1 Univers 137 mcg 1-22 } [facility] in ity of (0.1 %) 00:00: each [place] nasal spray 00 nostril 2 Med ical (two) Branch times daily. Use in each nostril as directed fluticasone 2022-0 Yes [id number] 1{spray Use 1 Univers propionate 1-22 } [facility] in ity o f 50 00:00: each [place] mcg/actuati 00 nostril Medic al on nasal daily. Branch spray azelastine Yes [id number] 1{spray Use 1 Univers 137 mcg 1-22 } [facility] in ity of (0.1 %) 00:00: each [place] nasal spray 00 nostril 2 Med ical (two) Branch times daily. Use in each nostril as directed fluticasone Yes [id number] 1{spray Use 1 Univers propionate 1-22 } [facility] in ity o f 50 00:00: each [place] mcg/actuati 00 nostril Medic al on nasal daily. Branch spray EPINEPHrine Yes Univer s 0.3 mg/0.3 1-03 ity of mL 00:00: [place] injection Medical Branch EPINEPHrine Yes Univer s 0.3 mg/0.3 1-03 ity of mL 00:00: [place] injection Medical Branch EPINEPHrine Yes Univer s 0.3 mg/0.3 1-03 ity of mL 00:00: [place] injection Medical Branch atorvastati Yes TAKE 1 Univ ers n 20 mg 7-24 TABLET BY ity of tablet 00:00: MOUTH [place] 00 EVERY DAY Medical Branch DIRECTED atorvastati 0 Yes TAKE 1 Univ ers n 20 mg 7-24 TABLET BY ity of tablet 00:00: MOUTH [place] 00 EVERY DAY Medical Branch DIRECTED atorvastati 0 Yes TAKE 1 Univ ers n 20 mg 7-24 TABLET BY ity of tablet 00:00: MOUTH [place] 00 EVERY DAY Medical Branch DIRECTED albuterol Yes [id number] 2{puff} Inhale 2 Univers 90 6-25 Puffs ity of mcg/actuati 00:00: every 6 [place] on inhaler 00 (six) Medical hours as Branch needed for Wheezing or Shortness of Breath. albuterol Yes [id number] 2{puff} Inhale 2 Univers 90 6-25 Puffs ity of mcg/actuati 00:00: every 6 [place] on inhaler 00 (six) Medical hours as Branch needed for Wheezing or Shortness of Breath. albuterol Yes [id number] 2{puff} Inhale 2 Univers 90 6-25 Puffs ity of mcg/actuati 00:00: every 6 [place] on inhaler 00 (six) Medical hours as Branch needed for Wheezing or Shortness of Breath. 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 ondansetron Yes [id number] 4mg Take 1 Univers 4 mg 1-23 tablet by ity of disintegrat 00:00: mouth [place] ing tablet 00 every 8 Medica l (eight) Branch hours as needed for Nausea and Vomiting (N/V). ondansetron Yes [id number] 4mg Take 1 Univers 4 mg 1-23 tablet by ity of disintegrat 00:00: mouth [place] ing tablet 00 every 8 Medica l (eight) Branch hours as needed for Nausea and Vomiting (N/V). acetaminoph 2019-09 Yes 500mg Take 500 U nivers en 500 mg 2-28 mg by ity of tablet 00:00: mouth. Medical Branch acetaminoph 2019- Yes 500mg Take 500 U nivers en 500 mg 2-28 mg by ity of tablet 00:00: mouth. Medical Branch acetaminoph 2019-09 Yes 500mg Take 500 U [...] 00:00: FOR DETAILED Medical DIRECTIONS Branch SUMAtriptan 2019- Yes PLEASE SEE Univers 25 mg 1-01 ATTACHED ity of tablet 00:00: FOR DETAILED Medical DIRECTIONS Branch SUMAtriptan 2019- Yes PLEASE SEE Univers 25 mg 1-01 ATTACHED ity of tablet 00:00: FOR [facility] Medical DIRECTIONS Branch lamoTRIgine 2019- Yes TAKE [...] (1) ity of mcg/actuati 00:00: PUFF(S) BY [place] on inhaler 00 MOUTH Medical EVERY FOUR Branch HOURS. VENTOLIN 2020-0 Yes INHALE ONE Uni vers HFA 90 9-29 (1) ity of mcg/actuati 00:00: PUFF(S) BY [place] on inhaler 00 MOUTH Medical EVERY FOUR Branch HOURS. VENTOLIN 2020-0 Yes INHALE ONE Uni vers HFA 90 9-29 (1) ity of mcg/actuati 00:00: PUFF(S) BY [place] on inhaler 00 MOUTH Medical EVERY FOUR Branch HOURS. proMETHazin 2020-0 Yes [id number] 25mg Take 1 Univers e 25 mg 6-23 tablet by ity of tablet 00:00: mouth [place] 00 every 6 Medical (six) Branch hours as needed for Nausea and Vomiting (N/V). proMETHazin 2020-0 Yes [id number] 25mg Take 1 Univers e 25 mg 6-23 tablet by ity of tablet 00:00: mouth [place] 00 every 6 Medical (six) Branch hours as needed for Nausea and Vomiting (N/V). proMETHazin 2020-0 Yes [id number] 25mg Take 1 Univers e 25 mg 6-23 tablet by ity of tablet 00:00: mouth [place] 00 every 6 Medical (six) Branch hours as needed for Nausea and Vomiting (N/V). hydrOXYzine 2018-09 Yes Univer s 25 mg 2-06 ity of capsule 00:00: [place] [facility] hydrOXYzine 2018-09 Yes Univer s 25 mg 2-06 ity of capsule 00:00: [place] [facility] hydrOXYzine 2018-09 Yes Univer s 25 mg 2-06 ity of capsule 00:00: [place] 00 [facility] Branch STELARA 45 2018-09 Yes INJECT Unive [...] Immunizations Ordered Filled Immunization Date Status Comments [facility] e Immunization Name Name Influenza Virus 2020-06-23 Completed Universit y of Vaccine Quad .5 mL 00:00:00 [facility] IM 6+ MO Branch Influenza Virus 2020-06-23 Completed Universit y of Vaccine [place] .5 mL 00:00:00 [facility] IM 6+ MO Branch Influenza Virus 2020-06-23 Completed Universit y of Vaccine Quad .5 mL 00:00:00 [facility] IM 6+ MO Branch Influenza Virus 2019-08-06 Completed Universit y of Vaccine 00:00:00 [facility] Influenza Virus 2019-08-06 Completed Universit y of Vaccine 00:00:00 [facility] Influenza Virus 2019-08-06 Completed Universit y of Vaccine 00:00:00 [facility] Vital Signs Vital Name Observation Time Observation Value Comments Source Systolic blood 2022-05-28 14:40:00 124 mm[Hg] Univer sity of pressure [facility] Diastolic blood 2022-05-28 14:40:00 76 mm[Hg] Unive rsity of pressure [facility] Heart rate 2022-05-28 14:40:00 83 /min Universi ty of [place] [facility] Body weight 2022-05-28 14:40:00 84.687 kg Universi ty of [place] [facility] BMI 2022-05-28 14:40:00 33.07 kg/m2 Universi ty of [facility] Oxygen saturation in 2022-05-28 14:40:00 96 /min University of Arterial blood by [facility] Pulse oximetry Branch Systolic blood 2022-04-30 14:11:00 119 mm[Hg] Univer sity of pressure [facility] Diastolic blood 2022-04-30 14:11:00 79 mm[Hg] Unive rsity of pressure [facility] Heart rate 2022-04-30 14:11:00 83 /min Universi ty of [place] [facility] Body temperature 2022-04-30 14:11:[address] [facility] Respiratory rate 2022-04-30 14:11:00 18 /min Univ ersity of [place] [facility] Body height 2022-04-30 14:11:00 160 cm Universi ty of [place] [facility] Body weight 2022-04-30 14:11:00 81.784 kg Universi ty of [place] [facility] BMI 2022-04-30 14:11:00 31.94 kg/m2 Universi ty of [facility] Oxygen saturation in 2022-04-30 14:11:00 97 /min University of Arterial blood by [facility] Pulse oximetry Branch Procedures This patient has no known procedures. Encounters Start End Encounter Admission Attending Care Care Encounter Source Date/Time Date/Time Type Type Clinicians Facility Department ID 2022-06-25 2022-06-25 Outpatient R [facility] [id number] [facility] 09:30:00 09:30:[id number] [facility] 2022-05-28 2022-05-28 Nurse Nurse, Vtc Int Med Allergy [facility] [id number] Univers 10:00:00 10:30:00 Visit Catrachita LindquistPEC 350.1. 13.10 ity of IALTY 4.2.7.2.686 [facility] [id number] [address] DIABETES [facility] 2022-05-28 2022-05-28 Outpatient R [place] [facility] [id number] Univers 10:00:00 10:00:[address] [facility] 2022-05-13 2022-05-[address] [facility] [id number] Univers 00:00:00 00:00:00 [place] 350.1.13.10 it y of [place]ARIELA 4.2.7.2.686 [facility] [id number] [address] ([facility]) 2022-04-30 2022-04-[address] [facility] [id number] [facility] 09:30:00 10:06:23 Visit Catrachita TEE 350.1.13.10 ity of IALTY 4.2.7.2.686 [facility] [id number] [address] DIABETES [facility] 2020-03-19 2020-03-19 Orders Doctor SONJA [id number] 00:00:00 00:00:00 Only UnassignedDEXTER 350.1.13.10 Baron [facility] 4.2.7.2.686 [id number] 2020-02-28 2020-02-28 Transition Muna Tello [id number] 00:00:00 00:00:00 of Care Marley Castano 350.1.13.10 Shar[place] 4.2.7.2.686 [id number] 2020-02-23 2020-02-27 [facility] Magalys Carreno [id number] 21:57:28 16:56:00 Encounter Michael Quiles 350.1.13.10 [place] [id number] 2020-01-31 2020-02-02 [facility] Annamaria Cardenas [facility] 1.2.840. [id number] 13:56:16 12:50:00 Encounter Keegan Owen 350.1.13.10 [place] 4.2.7.2.686 [place] [id number] 2020-01-31 2020-01-31 Orders Doctor SONJA [id number] 00:00:00 00:00:00 Only Unassigned, DEXTER 350.1.13.10 Baron [facility] 4.2.7.2.686 [id number] Results This patient has no known results.
[2022-06-06] MEDS ORDERED: ALBUTEROL 2.5 MG/3 ML NEB SOL ONE (21:03)
[2022-06-06] MEDS ORDERED: NA CHLORIDE 0.9% 1,000 ML ONE ×3 (21:03→23:03)
[2022-06-06] MEDS ORDERED: ONDANSETRON 4 MG/2 ML VIAL ONE (21:03)
[2022-06-06] MEDS ORDERED: METHYLPREDNISOLONE 125 MG INJ ONE (21:03)
[2022-06-06] MEDS ORDERED: IPRATROPIUM BROM 0.5MG/2.5ML ONE (21:03)
[2022-06-06 21:19] LABS: Absolute Lymphocytes (CBC) 6.6 K/uL (0.7-4.9); Hematocrit 36.4 % (36.0-45.0); Lymphocytes % 39.3 % (15.3-44.8); MCV 82.4 fL (80-100); MPV 6.8 fL (7.6-11.3); RBC Red Blood Cell Count 4.41 M/uL (3.86-4.86)
[2022-06-06 21:46] LABS: Potassium 2.6 mmol/L (3.5-5.1)
[2022-06-06] MEDS ORDERED: POTASSIUM CL SA 10 MEQ TAB PO ONE (23:03)
[2022-06-06] MEDS ORDERED: KCL 20 MEQ/100 mL IVPB 100 ML IV ONE (23:03)
--- NOTE | 2022-06-07 01:46 | EDPHYS ---
Physician Documentation [facility] Name: Sowmya Juarez Age: 37 yrs Sex: Female : 1985 Arrival Date: 06/06/2022 Time: 20:38 Bed 7 Private MD: ED Physician Axel Freeman HPI: 06/07 23:22 This 37 yrs old Female presents to ER via Wheelchair with complaints of Allergic kdr Reaction, Breathing Difficulty. 23:22 Patient was on the phone when she started to have an allergic reaction. She has had kdr these previously. She has EpiPen's at home and used both of them over process of a few minutes. On initial presentation she was very stridorous and labored in her breathing. Her vital signs otherwise were stable. Onset: The symptoms/episode began/occurred suddenly, just prior to arrival. Severity of symptoms: At their worst the symptoms were mild moderate in the emergency department the symptoms are unchanged. The patient has experienced similar episodes in the past, several times. The patient has not recently seen a physician. 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 - Social history:: Smoking status: Patient denies any tobacco usage or history of. ROS: 06/07 23:22 Constitutional: Negative for fever, chills, and weight loss, Eyes: Negative for injury, kdr pain, redness, and discharge, ENT: Negative for injury, pain, and discharge, Neck: Negative for injury, pain, and swelling, Cardiovascular: Negative for chest pain, palpitations, and edema, Abdomen/GI: Negative for abdominal pain, nausea, vomiting, diarrhea, and constipation, Back: Negative for injury and pain, : Negative for injury, bleeding, discharge, and swelling, MS/Extremity: Negative for injury and deformity, Skin: Negative for injury, rash, and discoloration, Neuro: Negative for headache, weakness, numbness, tingling, and seizure activity. Psych: Negative for depression, anxiety, suicide ideation, homicidal ideation, and hallucinations, Allergy/Immunology: Negative for hives, rash, and allergies, Endocrine: Negative for neck swelling, polydipsia, polyuria, polyphagia, and marked weight changes, Hematologic/Lymphatic: Negative for swollen nodes, abnormal bleeding, and unusual bruising. Respiratory: Positive for cough, with no reported sputum, dyspnea on exertion, shortness of breath, wheezing, Negative for hemoptysis. Exam: 23:22 Constitutional: This is a well developed, well nourished patient who is awake, alert, kdr and in moderate distress. Head/Face: Normocephalic, atraumatic. Eyes: Pupils equal round and reactive to light, extra-ocular motions intact. Lids and lashes normal. Conjunctiva and sclera are non-icteric and not injected. Cornea within normal limits. Periorbital areas with no swelling, redness, or edema. Neck: Trachea midline, no thyromegaly or masses palpated, and no cervical lymphadenopathy. Supple, full range of motion without nuchal rigidity, or vertebral point tenderness. No Meningismus. Chest/axilla: Normal chest wall appearance and motion. Nontender with no deformity. No lesions are appreciated. Cardiovascular: Regular rate and rhythm with a normal S1 and S2. No gallops, murmurs, or rubs. Normal PMI, no JVD. No pulse deficits. Abdomen/GI: Soft, non-tender, with normal bowel sounds. No distension or tympany. No guarding or rebound. No evidence of tenderness throughout. Back: No spinal tenderness. No costovertebral tenderness. Full range of motion. Skin: Warm, dry with normal turgor. Normal color with no rashes, no lesions, and no evidence of cellulitis. MS/ Extremity: Pulses equal, no cyanosis. Neurovascular intact. Full, normal range of motion. Neuro: Awake and alert, GCS 15, oriented to person, place, time, and situation. Cranial nerves II-XII grossly intact. Motor strength 5/5 in all extremities. Sensory grossly intact. Cerebellar exam normal. Normal gait. Psych: Awake, alert, with orientation to person, place and time. Behavior, mood, and affect are within normal limits. 23:22 Respiratory: moderate respiratory distress is noted, severe repiratory distress is noted, Respirations: labored breathing, Breath sounds: wheezing: inspiratory expiratory that is moderate, is heard diffusely. Vital Signs: 06/06 20:42 BP 159 / 107; Pulse 156; Resp 30; Temp 98.5(TE); Pulse Ox 100% on R/A; Weight 81.65 kg bm7 (R); Height 5 ft. 3 in. (160.02 cm); Pain 0/10; 22:05 BP 139 / 67; Pulse 109; Resp 19; Temp 98.8(O); Pulse Ox 96% on R/A; Pain 0/10; ke1 23:27 BP 111 / 62; Pulse 103; Resp 17; Pulse Ox 96% on R/A; Pain 0/10; ke1 20:42 Body Mass Index 31.89 (81.65 kg, 160.02 cm) bm7 MDM: 06/07 01:46 Patient medically screened. kdr 23:22 Data reviewed: vital signs, nurses notes, lab test result(s), radiologic studies. kdr Counseling: I had a detailed discussion with the patient and/or guardian regarding: the historical points, exam findings, and any diagnostic results supporting the discharge/admit diagnosis, lab results, radiology results, the need for outpatient follow up. 23:24 ED course: Patient's signs and symptoms significantly resolved by the time of kdr discharge. Patient was happy with the care provided plan for discharge and follow-up. 06/06 20:58 Order name: CBC with Diff kdr 06/06 20:58 Order name: Chem 7 kdr 06/06 21:22 Order name: CBC with Automated Diff; Complete Time: 22:27 EDMS 06/06 21:46 Order name: Basic Metabolic Panel; Complete Time: 22:27 EDMS Administered Medications: 06/06 21:18 Drug: SOLU-Medrol (methylPrednisoLONE) 125 mg Route: IVP; Site: left wrist; ke1 21:18 Drug: Albuterol - atroVENT (ipratropium) (3:1) (2.5 mg - 0.5 mg) 3 ml Route: Nebulizer; ke1 21:18 Drug: NS 0.9% 1000 ml Route: IV; Rate: 1 bolus; Site: left wrist; ke1 21:18 Drug: Zofran (Ondansetron) 4 mg Route: IVP; Site: left wrist; ke1 21:56 Drug: NS 0.9% 1000 ml Route: IV; Rate: 1 bolus; Site: left wrist; ke1 23:20 Drug: Potassium Chloride 20 mEq Route: IV; Rate: calculated rate; Site: left wrist; ke1 23:20 Drug: Potassium Chloride Liquid 40 mEq Route: PO; ke1 23:21 Drug: NS 0.9% 1000 ml Route: IV; Rate: 1 bolus; Site: left wrist; ke1 Disposition Summary: 06/07/22 01:46 Discharge Ordered Location: Home kdr Problem: an acute exacerbation kdr Symptoms: are resolved kdr Condition: Stable kdr Diagnosis - Acute allergic reaction kdr - Wheezing kdr - Acute respiratory distress kdr Followup: kdr - With: Private Physician - When: 2 - 3 days - Reason: If symptoms return, Further diagnostic work-up, Recheck today's complaints, Continuance of care, Re-evaluation by your physician Discharge Instructions: - Discharge Summary Sheet kdr - Allergies, Adult kdr - Shortness of Breath, Adult, [id number] kdr - Cough, Adult kdr Forms: - Medication Reconciliation Form kdr - Thank You Letter kdr Prescriptions: - EpiPen 0.3 mg/0.3 mL Injection auto-injector - inject 0.3 milliliter by INTRAMUSCULAR route as directed As needed as needed kdr for anaphylaxis or acute allergic reaction; 2 canister; Refills: 0, Product Selection Permitted - Medrol (Rogelio) 4 mg Oral Tablets, Dose Pack - take 1 tablet by ORAL route as directed - follow package instructions; 1 kdr packet; Refills: 0, Product Selection Permitted Signatures: Dispatcher [employer] Axel Chahal MD MD kdr Jeronimo Sarmiento, CONTROL TOWER OPERATOR-C CONTROL TOWER OPERATOR-Cla1 Anu Morales, RN RN bm7 Constantine Eduardo RN RN ke1
--- NOTE | 2022-06-07 01:46 | ER ---
Nurse's Notes [facility] Name: Sowmya Juarez Age: 37 yrs Sex: Female : 1985 Arrival Date: 06/06/2022 Time: 20:38 Bed 7 Private MD: Diagnosis: Acute allergic reaction;Wheezing;Acute respiratory distress Presentation: 06/06 20:43 Chief complaint: Patient states: I started having an allergic reaction again and I had 7 to use both epi pens. Coronavirus screen: At this time, the client does not indicate any symptoms associated with coronavirus-19. Ebola Screen: No symptoms or risks identified at this time. Onset: The symptoms/episode began/occurred suddenly. Anaphylaxis evaluation, angioedema. Initial Sepsis Screen: Does the patient meet any 2 criteria? No. Patient's initial sepsis screen is negative. Does the patient have a suspected source of infection? No. Patient's initial sepsis screen is negative. Risk Assessment: Do you want to hurt yourself or someone else? Patient reports no desire to harm self or others. Onset of symptoms was June 06, 2022 at 20:16. Care prior to arrival: Medication(s) given: EPI AT 2055. 20:43 Method Of Arrival: Wheelchair 7 20:43 Acuity: KALYN 2 bm7 Triage Assessment: 20:45 General: Appears distressed, uncomfortable, Behavior is anxious. Pain: Denies pain. bm7 EENT: Oral mucosa is moist. Throat is clear. Neuro: No deficits noted. Cardiovascular: No deficits noted. Respiratory: Reports shortness of breath cough that is labored breathing Airway is patent Respiratory effort is labored, using tripod position, Respiratory pattern is tachypnea Breath sounds with wheezes bilaterally. GI: No deficits noted. No signs and/or symptoms were reported involving the gastrointestinal system. : No deficits noted. No signs and/or symptoms were reported regarding the genitourinary system. Derm: No deficits noted. No signs and/or symptoms reported regarding the dermatologic system. Musculoskeletal: No deficits noted. No signs and/or symptoms reported regarding the musculoskeletal system. 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 - Social history:: Smoking status: Patient denies any tobacco usage or history of. Screenin:00 Abuse screen: Denies threats or abuse. Nutritional screening: No deficits noted. ke1 Tuberculosis screening: No symptoms or risk factors identified. Fall Risk None identified. Assessment: 22:00 Reassessment: Patient and/or family updated on plan of care and expected duration. Pain ke1 level reassessed. Patient is alert, oriented x 3, equal unlabored respirations, skin warm/dry/pink. Patient states feeling better. Patient states symptoms have improved. Respiratory: Airway is patent Trachea midline Respiratory effort is even, unlabored, Respiratory pattern is regular, symmetrical. 23:27 Reassessment: Patient is alert, oriented x 3, equal unlabored respirations, skin ke1 warm/dry/pink. Patient states feeling better. Patient states symptoms have improved. 06/07 02:12 Reassessment: Patient states feeling better. Patient states symptoms have improved. ke1 Vital Signs: 06/06 20:42 BP 159 / 107; Pulse 156; Resp 30; Temp 98.5(TE); Pulse Ox 100% on R/A; Weight 81.65 kg bm7 (R); Height 5 ft. 3 in. (160.02 cm); Pain 0/10; 22:05 BP 139 / 67; Pulse 109; Resp 19; Temp 98.8(O); Pulse Ox 96% on R/A; Pain 0/10; ke1 23:27 BP 111 / 62; Pulse 103; Resp 17; Pulse Ox 96% on R/A; Pain 0/10; ke1 20:42 Body Mass Index 31.89 (81.65 kg, 160.02 cm) 7 ED Course: 20:38 Patient arrived in ED. bp1 20:45 Triage completed. bm7 20:45 Arm band placed on left wrist. bm7 20:51 Cyndee Velasquez, RN is Primary Nurse. vc1 20:54 Axel Freeman MD is Attending Physician. kdr 21:12 Inserted saline lock: 22 gauge in left wrist, using aseptic technique. Blood collected. zm 21:13 CBC with Diff Sent. zm 21:13 Chem 7 Sent. zm 22:04 Bed in low position. Call light in reach. Side rails up X 1. ke1 06/07 02:12 No provider procedures requiring assistance completed. IV discontinued. ke1 Administered Medications: 06/06 21:18 Drug: SOLU-Medrol (methylPrednisoLONE) 125 mg Route: IVP; Site: left wrist; ke1 21:18 Drug: Albuterol - atroVENT (ipratropium) (3:1) (2.5 mg - 0.5 mg) 3 ml Route: Nebulizer; ke1 21:18 Drug: NS 0.9% 1000 ml Route: IV; Rate: 1 bolus; Site: left wrist; ke1 21:18 Drug: Zofran (Ondansetron) 4 mg Route: IVP; Site: left wrist; ke1 21:56 Drug: NS 0.9% 1000 ml Route: IV; Rate: 1 bolus; Site: left wrist; ke1 23:20 Drug: Potassium Chloride 20 mEq Route: IV; Rate: calculated rate; Site: left wrist; ke1 23:20 Drug: Potassium Chloride Liquid 40 mEq Route: PO; ke1 23:21 Drug: NS 0.9% 1000 ml Route: IV; Rate: 1 bolus; Site: left wrist; ke1 Medication: 06/07 02:12 VIS not applicable for this client. ke1 Outcome: 01:46 Discharge ordered by . kdr 02:12 Discharged to home ambulatory. ke1 02:12 Condition: good 02:12 Discharge instructions given to patient. 02:13 Patient left the ED. ke1 Signatures: Axel Freeman MD MD kdr [place], Brittany bp1 McCarthy, Brittany, RN RN bm7 Cyndee Velasquez, RN RN vc1 Constantine Eduardo RN RN ke1 Katty Jones
[2022-06-07 02:59] VITALS: TEMP 98.8; O2SAT 96
[2022-06-07 03:00] VITALS: BP 111/62
== END 2022-06-07 02:13 | disposition home or self-care (01) ==
LOC: ER 20:37
DX: T78.40XA Allergy, unspecified, initial encounter (principal); R06.03 Acute respiratory distress; R06.2 Wheezing; I10 Essential (primary) hypertension; E78.5 Hyperlipidemia, unspecified; K50.90 Crohn's disease, unspecified, without complications; F31.9 Bipolar disorder, unspecified; Z79.899 Other long term (current) drug therapy; Z88.8 Allergy status to other drugs, medicaments and biological substances; Z28.310 Unvaccinated for COVID-19
CPT/HCPCS: 85025; 80048; 36415; 94640; 96375; 96374; 99284; J3480; J7030 ×3; J2930; J2405

== ENCOUNTER 2023-02-22 09:47 | Emergency (ER) | payer OTHER ==
[2023-02-22] MEDS ORDERED: FAMOTIDINE 20 MG/2 ML VIAL IV ONE (10:06)
[2023-02-22] MEDS ORDERED: DIPHENHYDRAMINE 50 MG/ML VIAL ONE (10:06)
[2023-02-22] MEDS ORDERED: METHYLPREDNISOLONE 125 MG INJ ONE (10:07)
[2023-02-22] MEDS ORDERED: IPRATROPIUM BROM 0.5MG/2.5ML ONE (10:19)
[2023-02-22] MEDS ORDERED: ALBUTEROL 2.5 MG/3 ML NEB SOL ONE (10:19)
--- OUTSIDE RECORDS SUMMARY | 2023-02-22 10:20 | XMS REPORT | Continuity of Care Document ---
:1985 Author Organization [facility] t Address [address] [place] [address] Care Team Providers Name Role Phone Karma Jackson Primary Care Physician MARIUM DAWSON Attending Clinician Unavailable CATRACHITA MERCADO Attending Clinician Unavailable Catrachita Mercado MD Attending Clinician Hic-Lab Attending Clinician Unavailable PAIGE JONES Attending Clinician Unavailable Paige Tate Attending Clinician Unknown, Attending Attending Clinician Unavailable AMANDA MCKEON Attending Clinician Unavailable Amanda Mckeon MD Attending Clinician RACHNA BUSH Attending Clinician Unavailable Rachna Bush MD Attending Clinician Doctor Unassigned, [place] Attending Clinician Unavailable MORGAN VARGAS Attending Clinician Unavailable Morgan Vargas DO Attending Clinician MENG GALICIA Attending Clinician Unavailable Meng Galicia MD Attending Clinician AMANDA POWER Attending Clinician Unavailable Amanda Power DO Attending Clinician Nurse, [facility] Int Med Allergy Attending Clinician Unavailable Lorene Roman MD Attending Clinician [phone] LORENE ROMAN Attending Clinician Unavailable Marley Tello RN Attending Clinician Unavailable ELIEZER KLEIN Attending Clinician Unavailable Cam BURKETT, Frandy Muhammad Attending Clinician Eliezer Klein DO Attending Clinician Genaro Eubanks MD Attending Clinician Christopher [facility], Danyel Attending Clinician Unavailable Juan BURKETT, Rosio Attending Clinician ELAINECristofer PALM Attending Clinician Unavailable Elaine PACCristofer Attending Clinician Pob, [facility] Lab Main Attending Clinician Unavailable Jones [facility], Merom Attending Clinician Unavailable Samir BURKETT, Marium Attending Clinician Nell GUTIERRES, Alanna Oconnor Attending Clinician Unavailable Marium Damon Attending Clinician BA PASCAL Attending Clinician Unavailable Vahe OBRIEN, Ismael Velasco Attending Clinician Ba Pascal MD Attending Clinician ROSIO MARTINEZ Attending Clinician Unavailable Dedra Shepherd RN Attending Clinician Unavailable Only, Ang Db Test Attending Clinician Unavailable Bobbi Wang Attending Clinician BOBBI HELLER Attending Clinician Unavailable Jazmine BURKETT, Ashwin Saenz Attending Clinician Ernesto Tesfaye CRNA Attending Clinician Jaciel Ortiz MD, Leonard Attending Clinician Only, Adc Test Attending Clinician Unavailable SHRUTHI COLLADO Attending Clinician Unavailable Miko Araujo DO Attending Clinician , Adc Surg Spec Procedure Attending Clinician Unavailable Provider, [facility] Attending Clinician Unavailable Pc, Adc Echo Room 1 - Attending Clinician Unavailable Renaldo BURKETT, Deborah Attending Clinician Mino Shahid MD Attending Clinician Brayden BURKETT, Anahy Attending Clinician TIANA SMITH Attending Clinician Unavailable Tiana Smith MD Attending Clinician ANAHY OWEN Attending Clinician Unavailable Annamaria Hines Attending Clinician MARIUM DAWSON Admitting Clinician Unavailable MORGAN VARGAS Admitting Clinician Unavailable AMANDA POWER Admitting Clinician Unavailable ELIEZER KLEIN Admitting Clinician Unavailable Eliezer Klein DO Admitting Clinician ELAINE, Cristofer CECI Admitting Clinician Unavailable Marium Dawson MD Admitting Clinician Anahy Owen MD Admitting Clinician TIANA SMIHT Admitting Clinician Unavailable Tiana Smith MD Admitting Clinician ANAHY OWEN Admitting Clinician Unavailable Payers Payer Name Policy Type Policy Number Effective Date Expiration Date Odalis mendoza MEDICARE PART A [id number] 2014 \\T\\ B 00:00:00 MEDICAID OF [place] [id number] 2014 00:00:00 Problems Condition Condition Condition Status Onset Resolution Last Treating Co mments Source Name Details Category Date Date Treatment Clinician Date Anaphylaxi Anaphylaxi Disease Active 2021-09 U nivers s, initial s, initial 2-09 [place] [facility] 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 00:00: [facility] Angioedema Angioedema Disease Active U nivers , initial , initial 2-09 [place] [facility] Allergic Allergic Disease Active Unive rs reaction, reaction, 6-25 ity of initial initial 00:00: [place] encounter encounter [facility] Branch Post-opera Post-opera Disease Active U nivers tive state tive state 6-25 it y of 00:00: [facility] Branch S/P S/P Disease Active Univers laparoscop laparoscop 6-19 it y of ic ic 00:00: [place] assisted assisted 00 Medica l vaginal vaginal Branch hysterecto hysterecto my (LAVH) my (LAVH) Crohn Crohn Disease Active Univers disease disease 9- ity of 00:00: [place] 00 Medical Branch Obesity Obesity Disease Active Univers (BMI (BMI 9-05 ity of 30-39.9) 30-39.9) 00:00: Medical Branch Bipolar I Bipolar I Disease Active Overview: Univers disorder, disorder, 7-11 Formattin i ty of most most 00:00: g of this [place] recent recent 00 note Medical episode episode might be Branch depressed depressed different from the original. ICD10 Diagnosis Term Manager Latin Utility Allergies, Adverse Reactions, Alerts Allergy Allergy [...] Date Quantity Comments Source History of tobacco Passive smoker Un iversity of use [facility] Branch History [facility] o f Alcohol Frequency [facility] Branch History [facility] o f Alcohol Std Drinks [facility] Branch History [facility] o f Alcohol Binge [facility] Branch Cigarettes smoked 2023-02-04 2023-02-04 Univers ity of current (pack per 00:00:00 00:00:00 [facility] ) - Reported Branch Cigarette 2023-02-04 2023-02-04 University of pack-years 00:00:00 00:00:00 [facility] Tobacco use and 2023-02-04 2023-02-04 Smokeless tobacco Un iversity of exposure 00:00:00 00:00:00 non-user [facility] Alcohol intake 2023-02-04 2023-02-04 Current drinker Unive rsity of 00:00:00 00:00:00 of alcohol [facility] (finding) Branch Exposure to 2022-12-23 2023-01-02 Not [facility] of SARS-CoV-2 (event) 00:00:00 09:43:00 [facility] Alcohol Comment 2018-05-11 2018-05-11 Occasional Universit y of 00:00:00 00:00:00 [facility] Sex [birth year] Universit y of 00:00:00 00:00:00 [facility] Smoking Status Start Date Stop Date Source Ex-smoker 2023-02-04 00:00:00 2023-02-04 [facility] Medications Ordered Filled Start Stop Current Ordering Indication Dosage Frequency Signature Comments Components Source Medication Medication Date Date Medication? Clinician (SIG) Name Name EPINEPHrine Yes [id number] .3mg 0.3 mL by Univers (EPIPEN) -01 Intramuscu ity o f 0.3 mg/0.3 00:00: lar route [place] mL 00 as needed Medical injection (anaphylax Bran ch is). famotidine Yes [id number] 20mg Take 1 U nivers (PEPCID) 20 6-01 tablet by ity of mg tablet 00:00: mouth in [facility] the Medical morning Branch and 1 tablet in the evening. montelukast Yes [id number] 10mg Take 1 Univers 10 mg 6-01 tablet by ity of tablet 00:00: mouth in [place] [address] the Medical morning. Branch ketotifen 1 Yes [id number] 2mg Take 2 Univers MG capsule 6-01 capsules ity o f 00:00: by mouth in the Medical morning Branch and 2 capsules in the evening. predniSONE Yes [id number] Take 3 U nivers 20 mg 6-01 tablets PO ity of tablet 00:00: with [place] 00 Pepcid and Medical Benadryl Branch in case of an Allergic Reaction EPINEPHrine Yes [id number] .3mg 0.3 mL by Univers (EPIPEN) 6-01 Intramuscu ity o f 0.3 mg/0.3 00:00: [place] route [place] mL 00 as needed Medical injection (anaphylax Bran ch is). famotidine Yes [id number] 20mg Take 1 U nivers (PEPCID) 20 6-01 tablet by ity of mg tablet 00:00: mouth in [facility] the Medical morning Branch and 1 tablet in the evening. montelukast 2022-0 Yes [id number] 10mg Take 1 Univers 10 mg 6-01 tablet by ity of tablet 00:00: mouth in [place] the Medical morning. Branch ketotifen 1 2022-0 Yes [id number] 2mg Take 2 Univers MG capsule 6-01 capsules ity o f 00:00: by mouth 00 in the Medical morning Branch and 2 capsules in the evening. predniSONE 2022-0 Yes [id number] Take 3 U nivers 20 mg 6-01 tablets PO ity of tablet 00:00: with [place] 00 Pepcid and Medical Benadryl Branch in case of an Allergic Reaction EPINEPHrine 2022-0 Yes [id number] .3mg 0.3 mL by Univers (EPIPEN) 6-01 Intramuscu ity o f 0.3 mg/0.3 00:00: [place] route [place] mL 00 as needed Medical injection (anaphylax Bran ch is). famotidine 2022-0 Yes [id number] 20mg Take 1 U nivers (PEPCID) 20 6-01 tablet by ity of mg tablet 00:00: mouth in [facility] the Medical morning Branch and 1 tablet in the evening. montelukast 2022-0 Yes [id number] 10mg Take 1 Univers 10 mg 6-01 tablet by ity of tablet 00:00: mouth in [place] the Medical morning. Branch ketotifen 1 2022-0 Yes [id number] 2mg Take 2 Univers MG capsule 6-01 capsules ity o f 00:00: by mouth in the Medical morning Branch and 2 capsules in the evening. predniSONE 2022-0 Yes [id number] Take 3 U nivers 20 mg 6-01 tablets PO ity of tablet 00:00: with [place] 00 Pepcid and Medical Benadryl Branch in case of an Allergic Reaction EPINEPHrine 2022-0 Yes [id number] .3mg 0.3 mL by Univers (EPIPEN) 6-01 Intramuscu ity o f 0.3 mg/0.3 00:00: [place] route [place] mL 00 as needed Medical injection (anaphylax Bran ch is). famotidine 2022-0 Yes [id number] 20mg Take 1 U nivers (PEPCID) 20 6-01 tablet by ity of mg tablet 00:00: [place] the [place] morning Branch and 1 tablet in the evening. montelukast 0 Yes [id number] 10mg Take 1 Univers 10 mg 6-01 tablet by ity of tablet 00:00: mouth in 00 the Medical morning. Branch ketotifen 1 Yes [id number] 2mg Take 2 Univers MG capsule 6-01 capsules ity o f 00:00: by mouth 00 in the Medical morning Branch and 2 capsules in the evening. predniSONE Yes [id number] Take 3 U nivers 20 mg 6-01 tablets PO ity of tablet 00:00: with [place] 00 Pepcid and Medical Benadryl Branch in case of an Allergic Reaction EPINEPHrine Yes [id number] .3mg 0.3 mL by Univers (EPIPEN) 6- Intramuscu ity o f 0.3 mg/0.3 00:00: [place] route [place] mL 00 as needed Medical injection (anaphylax Bran ch is). famotidine Yes [id number] 20mg Take 1 U nivers (PEPCID) 20 6-01 tablet by ity of mg tablet 00:00: mouth in [facility] the Medical morning Branch and 1 tablet in the evening. montelukast Yes [id number] 10mg Take 1 Univers 10 mg 6-01 tablet by ity of tablet 00:00: mouth in [place] the Medical morning. Branch ketotifen 1 Yes [id number] 2mg Take 2 Univers MG capsule 6-01 capsules ity o f 00:00: by mouth in the Medical morning Branch and 2 capsules in the evening. predniSONE Yes Take 3 Unive rs 20 mg 6-01 tablets PO ity of tablet 00:00: with [place] 00 Pepcid and Medical Benadryl Branch in case of an Allergic Reaction dexamethaso 2022- No [id number] 10mg U nivers ne 01-02 ity of (DECADRON) 14:54: 14:56 [place] injection 00 :00 Medical 10 mg Branch dexamethaso 2022- No [id number] 10mg 10 mg, Univers ne 01-02 Intramuscu ity of (DECADRON) 14:54: 14:56 lar, ONCE, [place] injection 00 :00 1 dose, On Medi abhishek 10 mg Sat Branch 01/02/23 at 1000, Routine methylPREDN 2022-0 Yes [id number] follow Univers ISolone 01-02 package ity of (MEDROL, 00:00: directions [place] EHSAN,) 4 mg 00 Medical tablets Branch methylPREDN 2022-0 Yes [id number] follow Univers ISolone 01-02 package ity of (MEDROL, 00:00: directions [place] EHSAN,) 4 mg 00 Medical tablets Branch methylPREDN 2022-0 2023- No [id number] follow Univers ISolone 01-02 package ity of (MEDROL, 00:00: 00:00 directions [place] EHSAN,) 4 mg 00 :00 Medical tablets Branch methylPREDN 2022-0 2023- No [id number] follow Univers ISolone 01-02 package ity of (MEDROL, 00:00: 00:00 directions [place] EHSAN,) 4 mg 00 :00 Medical tablets Branch methylPREDN 2022-0 3- No [id number] follow Univers ISolone 01-02 package ity of (MEDROL, 00:00: 00:00 directions [place] EHSAN,) 4 mg 00 :00 Medical tablets Branch benzonatate 2022- Yes [id number] 200mg Take 1 Univers 200 mg 01-02-10 capsule by ity of capsule 00:00: 04:59 mouth 3 [place] 00 :00 (three) Medical times Branch daily as needed for Cough for up to 10 days. benzonatate 2022- Yes [id number] 200mg Take 1 Univers 200 mg 01-02-10 capsule by ity of capsule 00:00: 04:59 mouth 3 [place] 00 :00 (three) Medical times Branch daily as needed for Cough for up to 10 days. doxycycline 2022- Yes [id number] 100mg Take 1 Univers hyclate 100 01-02-07 tablet by it y of mg tablet 00:00: 04:59 mouth in [place] 00 :00 the Medical morning Branch and 1 tablet in the evening. Do all this for 7 days. doxycycline 2022- Yes [id number] 100mg Take 1 Univers hyclate 100 01-02-07 tablet by it y of mg tablet 00:00: 04:59 mouth in [place] 00 :00 the Medical morning Branch and 1 tablet in the evening. Do all this for 7 days. codeine-gua 2022-0 2022- Yes 10mL Take 10 mL Univers ifenesin - 05-05 by mouth ity of 10-100 mg/5 00:00: 04:59 every 6 [place] mL oral 00 :00 (six) Medical solution hours as Branch needed for Cough for up to 5 days. Indication s: cough codeine-gua 2022-0 2022- Yes 10mL Take 10 mL Univers ifenesin 01-02 05-05 by mouth ity of 10-100 mg/5 00:00: 04:59 every 6 [place] mL oral 00 :00 (six) Medical solution hours as Branch needed for Cough for up to 5 days. Indication s: cough risperiDONE 2022-0 Yes 3mg Take 1 Univ ers 3 mg tablet 4-24 tablet by ity of 00:00: mouth at [place] [address] bedtime. Medical Branch risperiDONE 3-0 Yes 3mg Take 1 Univ ers 3 mg tablet 4-24 tablet by ity of 00:00: mouth at [place] [address] bedtime. Medical Branch risperiDONE 3-0 Yes 3mg Take 1 Univ ers 3 mg tablet 4-24 tablet by ity of 00:00: mouth at [place] [address] bedtime. Medical Branch risperiDONE 3-0 Yes 3mg Take 1 Univ ers 3 mg tablet 4-24 tablet by ity of 00:00: mouth at [place] [address] bedtime. Medical Branch risperiDONE 3-0 Yes 3mg Take 1 Univ ers 3 mg tablet 4-24 tablet by ity of 00:00: mouth at [place] [address] bedtime. Medical Branch risperiDONE 3-0 Yes 3mg Take 1 Univ ers 3 mg tablet 4-24 tablet by ity of 00:00: mouth at [place] [address] bedtime. Medical Branch risperiDONE 3-0 Yes 3mg Take 1 Univ ers 3 mg tablet 4-24 tablet by ity of 00:00: mouth at [place] [address] bedtime. Medical Branch DULoxetine 3-0 Yes Univers 30 mg 4-19 ity of capsule 00:00: [place] 00 Medical Branch DULoxetine 3-0 Yes Univers 30 mg 4-19 ity of capsule 00:00: [place] 00 Medical Branch DULoxetine 2023-0 Yes Univers 30 mg 4-19 ity of capsule 00:00: Medical Branch DULoxetine 2022-0 Yes Univers 30 mg 4-19 ity of capsule 00:00: Medical Branch DULoxetine 0 Yes Univers 30 mg 4-19 ity of capsule 00:00: Medical Branch DULoxetine 2022-0 Yes Univers 30 mg 4-19 ity of capsule 00:00: Medical Branch DULoxetine 2022-0 Yes Univers 30 mg 4-19 ity of capsule 00:00: Medical Branch famotidine 2022- No 20mg 20 mg, Univ ers (PEPCID 12-07- Slow IV ity of (PF)) 18:15: 17:23 Push, ONCE [place] injection 00 :00 NOW, 1 Medical 20 mg dose, On Branch Wed12/07/22 at 1315, SHEEBA racEPINEPHr 2022- No .5mL 0.5 mL, Un yesenia ine (S2 12-07- Inhalation ity o f RACEMIC) 17:15: 17:16 , ONCE, 1 [place] 2.25 % 00 :00 dose, On Medical nebulizer Wed12/07/22 Bran ch solution at 1215, 0.5 mL STAT diphenhydrA 2022- No 50mg 50 mg, Uni vers MINE 12-07- Slow IV ity of (BENADRYL) 17:15: 17:12 Push, [place] injection 00 :00 ONCE, 1 Medical 50 mg dose, On Branch Wed12/07/22 at 1215, STAT dexamethaso 2022- No 10mg 10 mg, Uni vers ne sod phos 12-07- Slow IV ity of PF 17:15: 17:12 Push, [place] injection 00 :00 ONCE, 1 Medical 10 mg dose, On Branch Wed12/07/22 at 1215, 1 mL famotidine Yes [id number] Take 2 U nivers (PEPCID) 20 4-03 tablets PO it y of mg tablet 00:00: in case of [place] 00 Allergic Medical Reaction Branch diphenhydrA 2022-0 Yes [id number] Take 2 Univers MINE 4-03 tablets PO ity of (BENADRYL) 00:00: with [place] 25 mg 00 Prednisone Medical capsule and Pepcid Branch in case of an Allergic Reaction predniSONE 3-0 Yes [id number] Take 3 U nivers 20 mg 4-03 tablets PO ity of tablet 00:00: with Pepcid and Medical Benadryl Branch in case of an Allergic Reaction albuterol 3-0 Yes [id number] 2{puff} Inhale 2 Univers 90 4-03 Puffs ity of mcg/actuati 00:00: every 4 [place] on inhaler 00 (four) Medical hours as Branch needed for Wheezing, Shortness of Breath or Bronchospa sm (Allergic Reaction). famotidine 3-0 Yes [id number] Take 2 U nivers (PEPCID) 20 4-03 tablets PO it y of mg tablet 00:00: in case of [place] 00 Allergic Medical Reaction Branch diphenhydrA 2023-0 Yes [id number] Take 2 Univers MINE 4-03 tablets PO ity of (BENADRYL) 00:00: with [place] 25 mg 00 Prednisone Medical capsule and Pepcid Branch in case of an Allergic Reaction predniSONE 2022-0 Yes [id number] Take 3 U nivers 20 mg 4-03 tablets PO ity of tablet 00:00: with Pepcid and Medical Benadryl Branch in case of an Allergic Reaction albuterol 2022-0 Yes [id number] 2{puff} Inhale 2 Univers 90 4-03 Puffs ity of mcg/actuati 00:00: every 4 [place] on inhaler 00 (four) Medical hours as Branch needed for Wheezing, Shortness of Breath or Bronchospa sm (Allergic Reaction). famotidine 3-0 Yes [id number] Take 2 U nivers (PEPCID) 20 4-03 tablets PO it y of mg tablet 00:00: in [place] of [place] 00 Allergic Medical Reaction Branch diphenhydrA 2023-0 Yes [id number] Take 2 Univers MINE 4-03 tablets PO ity of (BENADRYL) 00:00: with [place] 25 mg 00 Prednisone Medical capsule and Pepcid Branch in case of an Allergic Reaction predniSONE 3-0 Yes [id number] Take 3 U nivers 20 mg 4-03 tablets PO ity of tablet 00:00: with Pepcid and Medical Benadryl Branch in case of an Allergic Reaction albuterol Yes [id number] 2{puff} Inhale 2 Univers 90 4-03 Puffs ity of mcg/actuati 00:00: every 4 [place] on inhaler 00 (four) Medical hours as Branch needed for Wheezing, Shortness of Breath or Bronchospa sm (Allergic Reaction). diphenhydrA 2022-0 Yes [id number] Take 2 Univers MINE 4-03 tablets PO ity of (BENADRYL) 00:00: with [place] 25 mg 00 Prednisone Medical capsule and Pepcid Branch in case of an Allergic Reaction albuterol 0 Yes [id number] 2{puff} Inhale 2 Univers 90 4-03 Puffs ity of mcg/actuati 00:00: every 4 [place] on inhaler 00 (four) Medical hours as Branch needed for Wheezing, Shortness of Breath or Bronchospa sm (Allergic Reaction). diphenhydrA 0 Yes [id number] Take 2 Univers MINE 4-03 tablets PO ity of (BENADRYL) 00:00: with [place] 25 mg 00 Prednisone Medical capsule and Pepcid Branch in case of an Allergic Reaction albuterol 0 Yes [id number] 2{puff} Inhale 2 Univers 90 4-03 Puffs ity of mcg/actuati 00:00: every 4 [place] on inhaler 00 (four) Medical hours as Branch needed for Wheezing, Shortness of Breath or Bronchospa sm (Allergic Reaction). diphenhydrA 0 Yes [id number] Take 2 Univers MINE 4-03 tablets PO ity of (BENADRYL) 00:00: with [place] 25 mg 00 Prednisone Medical capsule and Pepcid Branch in case of an Allergic Reaction albuterol 0 Yes [id number] 2{puff} Inhale 2 Univers 90 4-03 Puffs ity of mcg/actuati 00:00: every 4 [place] on inhaler 00 (four) Medical hours as Branch needed for Wheezing, Shortness of Breath or Bronchospa sm (Allergic Reaction). diphenhydrA 2022-0 Yes [id number] Take 2 Univers MINE 4-03 tablets PO ity of (BENADRYL) 00:00: with [place] 25 mg 00 Prednisone Medical capsule and Pepcid Branch in case of an Allergic Reaction albuterol Yes [id number] 2{puff} Inhale 2 Univers 90 4-03 Puffs ity of mcg/actuati 00:00: every 4 [place] on inhaler 00 (four) Medical hours as Branch needed for Wheezing, Shortness of Breath or Bronchospa sm (Allergic Reaction). diphenhydrA Yes [id number] Take 2 Univers MINE 4-03 tablets PO ity of (BENADRYL) 00:00: with [place] 25 mg 00 Prednisone Medical capsule and Pepcid Branch in case of an Allergic Reaction albuterol Yes [id number] 2{puff} Inhale 2 Univers 90 4-03 Puffs ity of mcg/actuati 00:00: every 4 [place] on inhaler 00 (four) Medical hours as Branch needed for Wheezing, Shortness of Breath or Bronchospa sm (Allergic Reaction). famotidine 2022- No [id number] Take 2 Univers (PEPCID) 20 4- 06-01 tablets PO i ty of mg tablet 00:00: 00:00 in case of [place] 00 :00 Allergic Medical Reaction Branch predniSONE 2022-0 2022- No [id number] Take 3 Univers 20 mg - 06-01 tablets PO ity of tablet 00:00: 00:00 with [place] 00 :00 Pepcid and Medical Benadryl Branch in case of an Allergic Reaction famotidine 2022-2022- No [id number] Take 2 Univers (PEPCID) 20 4- 06-01 tablets PO i ty of mg tablet 00:00: 00:00 in case of [place] 00 :00 Allergic Medical Reaction Branch predniSONE 2022-0 2022- No [id number] Take 3 Univers 20 mg 4-03 06-01 tablets PO ity of tablet 00:00: 00:00 with [place] 00 :00 Pepcid and Medical Benadryl Branch in case of an Allergic Reaction famotidine 2022-0 2022- No [id number] Take 2 Univers (PEPCID) 20 4- 06-01 tablets PO i ty of mg tablet 00:00: 00:00 in case of [place] 00 :00 Allergic Medical Reaction Branch predniSONE 2022-0 2022- No [id number] Take 3 Univers 20 mg 4- 06-01 tablets PO ity of tablet 00:00: 00:00 with [place] 00 :00 [facility] in case of an Allergic Reaction indomethaci 2023-0 Yes TAKE 1 Univ ers n 50 mg 3-27 CAPSULE ity of capsule 00:00: (50 MG) BY a ORAL ROUTE Medical 1 TIME PER Branch DAY WITH FOOD NEEDED FOR HAND PAIN indomethaci 3-0 Yes TAKE 1 Univ ers n 50 mg 3-27 CAPSULE ity of capsule 00:00: (50 MG) BY ORAL ROUTE Medical 1 TIME PER Branch DAY WITH FOOD NEEDED FOR HAND PAIN indomethaci 3-0 Yes TAKE 1 Univ ers n 50 mg 3-27 CAPSULE ity of capsule 00:00: (50 MG) BY ORAL ROUTE Medical 1 TIME PER Branch DAY WITH FOOD NEEDED FOR HAND PAIN indomethaci 3-0 Yes TAKE 1 Univ ers n 50 mg 3-27 CAPSULE ity of capsule 00:00: (50 MG) BY ORAL ROUTE Medical 1 TIME PER Branch DAY WITH FOOD NEEDED FOR HAND PAIN indomethaci 2023-0 Yes TAKE 1 Univ ers n 50 mg 3-27 CAPSULE ity of capsule 00:00: (50 MG) BY ORAL ROUTE Medical 1 TIME PER Branch DAY WITH FOOD NEEDED FOR HAND PAIN indomethaci 3-0 Yes TAKE 1 Univ ers n 50 mg 3-27 CAPSULE ity of capsule 00:00: (50 MG) BY a ORAL ROUTE Medical 1 TIME PER Branch DAY WITH FOOD NEEDED FOR HAND PAIN indomethaci 2023-0 Yes TAKE 1 Univ ers n 50 mg 3-27 CAPSULE ity of capsule 00:00: (50 MG) BY a s ORAL ROUTE Medical 1 TIME PER Branch DAY WITH FOOD NEEDED FOR HAND PAIN allopurinoL 2023-0 Yes 300mg Take 1 Uni vers 300 mg 3-08 tablet by ity of tablet 00:00: mouth in [place] 00 the Medical morning. Branch allopurinoL 2023-0 Yes 300mg Take 1 Uni vers 300 mg 3-08 tablet by ity of tablet 00:00: mouth in [place] 00 the Medical morning. Branch allopurinoL 2023-0 Yes 300mg Take 1 Uni vers 300 mg 3-08 tablet by ity of tablet 00:00: mouth in [place] the Medical morning. Branch allopurinoL 2023-0 Yes 300mg Take 1 Uni vers 300 mg 3-08 tablet by ity of tablet 00:00: mouth in [place] 00 the Medical morning. Branch allopurinoL 2023-0 Yes 300mg Take 1 Uni vers 300 mg 3-08 tablet by ity of tablet 00:00: mouth in [place] 00 the Medical morning. Branch allopurinoL 2023-0 Yes 300mg Take 1 Uni vers 300 mg 3-08 tablet by ity of tablet 00:00: mouth in [place] 00 the Medical morning. Branch allopurinoL 2023-0 Yes 300mg Take 1 Uni vers 300 mg 3-08 tablet by ity of tablet 00:00: mouth in [place] 00 the Medical morning. Branch doxycycline 2023-0 Yes [id number] 100mg Take 1 Univers hyclate 100 3-02 capsule by it y of mg capsule 00:00: mouth [place] 00 every 12 Medical (twelve) Branch hours. doxycycline 2023-0 Yes [id number] 100mg Take 1 Univers hyclate 100 3-02 capsule by it y of mg capsule 00:00: mouth [place] 00 every 12 Medical (twelve) Branch hours. doxycycline 2023-0 Yes [id number] 100mg Take 1 Univers hyclate 100 3-02 capsule by it y of mg capsule 00:00: mouth [place] 00 every 12 Medical (twelve) Branch hours. doxycycline 2023-0 Yes [id number] 100mg Take 1 Univers hyclate 100 3-02 capsule by it y of mg capsule 00:00: mouth [place] 00 every 12 Medical (twelve) Branch hours. doxycycline 2023-0 Yes [id number] 100mg Take 1 Univers hyclate 100 3-02 capsule by it y of mg capsule 00:00: mouth [place] 00 every 12 Medical (twelve) Branch hours. doxycycline 2023-0 Yes [id number] 100mg Take 1 [facility] hyclate 100 3-02 capsule by it y of mg capsule 00:00: mouth [place] 00 every 12 Medical (twelve) Branch hours. doxycycline 2023-0 Yes [id number] 100mg Take 1 [facility] hyclate 100 3-02 capsule by it y of mg capsule 00:00: mouth [place] 00 every 12 Medical (twelve) Branch hours. doxycycline 2023-0 Yes [id number] 100mg Take 1 [facility] hyclate 100 3-02 capsule by it y of mg capsule 00:00: mouth [place] 00 every 12 Medical (twelve) Branch hours. doxycycline 2023-0 Yes [id number] 100mg Take 1 [facility] hyclate 100 3-02 capsule by it y of mg capsule 00:00: mouth [place] 00 every 12 Medical (twelve) Branch hours. doxycycline 2023-0 Yes [id number] 100mg Take 1 [facility] hyclate 100 3-02 capsule by it y of mg capsule 00:00: mouth [place] 00 every 12 Medical (twelve) Branch hours. doxycycline 2023-0 Yes [id number] 100mg Take 1 [facility] hyclate 100 3-02 capsule by it y of mg capsule 00:00: mouth [place] 00 every 12 Medical (twelve) Branch hours. doxycycline 2023-0 Yes [id number] 100mg Take 1 [facility] hyclate 100 3-02 capsule by it y of mg capsule 00:00: mouth [place] 00 every 12 Medical (twelve) Branch hours. doxycycline 2023-0 Yes [id number] 100mg Take 1 [facility] hyclate 100 3-02 capsule by it y of mg capsule 00:00: mouth [place] 00 every 12 Medical (twelve) Branch hours. doxycycline 2023-0 Yes [id number] 100mg Take 1 [facility] hyclate 100 3-02 capsule by it y of mg capsule 00:00: mouth [place] 00 every 12 Medical (twelve) Branch hours. doxycycline 2023-0 Yes [id number] 100mg Take 1 [facility] hyclate 100 3-02 capsule by it y of mg capsule 00:00: mouth [place] 00 every 12 Medical (twelve) Branch hours. doxycycline 2023-0 Yes [id number] 100mg Take 1 [facility] hyclate 100 3-02 capsule by it y of mg capsule 00:00: mouth [place] 00 every 12 Medical (twelve) Branch hours. doxycycline 2023-0 Yes [id number] 100mg Take 1 [facility] hyclate 100 3-02 capsule by it y of mg capsule 00:00: mouth [place] 00 every 12 Medical (twelve) Branch hours. doxycycline 2023-0 Yes [id number] 100mg Take 1 [facility] hyclate 100 3-02 capsule by it y of mg capsule 00:00: mouth [place] 00 every 12 Medical (twelve) Branch hours. doxycycline 2023-0 Yes [id number] 100mg Take 1 [facility] hyclate 100 3-02 capsule by it y of mg capsule 00:00: mouth [place] 00 every 12 Medical (twelve) Branch hours. doxycycline 2023-0 Yes [id number] 100mg Take 1 [facility] hyclate 100 3-02 capsule by it y of mg capsule 00:00: mouth [place] 00 every 12 Medical (twelve) Branch hours. doxycycline 2023-0 Yes [id number] 100mg Take 1 [facility] hyclate 100 3-02 capsule by it y of mg capsule 00:00: mouth [place] 00 every 12 Medical (twelve) Branch hours. levalbutero 2022-0 Yes 1.25mg 1.25 mg, Univers l (XOPENEX) 09-27 Inhalation it y of nebulizer 14:00: , TID, [place] solution 00 First dose Medic al 1.25 mg on [place] [facility] 09/27/22 at 0800, Until Discontinu ed, Routine ipratropium 2022-0 Yes 3mL 3 mL, Unive rs -albuteroL 09-27 Inhalation ity of (DUONEB) 14:00: , QID, [place] 0.5 mg-3 00 First dose Medic al mg(2.5 mg on [place] [facility] base)/3 mL 09/27/22 at nebulizer 0800, solution 3 Until mL Discontinu ed, Routine methylpredn 2022-0 Yes 125mg 125 mg, Un yesenia isolone sod 09-27 Intravenou it y of succ 12:00: s, Q6H, [place] (SOLU-MEDRO 00 First dose Me dical L) on [place] [facility] injection 09/27/22 at 125 mg 0600, Until Discontinu ed, Routine LORazepam 2022- No 1mg 1 mg, Slow U nivers (ATIVAN) 09-27 IV Push, ity of injection 1 07:30: 07:20 ONCE, 1 [place] mg 00 :00 dose, On Medical [place] [facility] 09/27/22 at 0130, STAT racEPINEPHr 2022-0 2022- No .5mL 0.5 mL, Un yesenia ine (S2 09-27 Inhalation ity o f RACEMIC) 07:00: 07:04 , ONCE, 1 [place] 2.25 % 00 :00 dose, On Medical nebulizer [place] [facility] solution 09/27/22 at 0.5 mL 0100, STAT famotidine 2022-0 2022- No 20mg 20 mg, Univ ers (PEPCID 09-27 Slow IV ity of (PF)) 07:00: 07:05 Push, [place] injection 00 :00 ONCE, 1 Medical 20 mg dose, On Branch 09/27/22 at 0100, SHEEBA diphenhydrA 2022- No 50mg 50 mg, Uni vers MINE 09-27 Slow IV ity of (BENADRYL) 07:00: 07:05 Push, [place] injection 00 :00 ONCE, 1 Medical 50 mg dose, On Branch 09/27/22 at 0100, STAT NaCl 0.9% 2022- No 1000mL at 999 Uni vers (NS) bolus 09-20 mL/hr, ity of infusion 01:15: 03:05 1,000 mL, [place] 1,000 mL 00 :00 IV Medical Infusion, Branch ONCE, 1 dose, On 09/19/22 at 1915, SHEEBA ondansetron 2022- No 4mg 4 mg, Slow Univers (ZOFRAN 09-20 IV Push, ity of (PF)) 00:30: 00:36 ONCE, 1 [place] injection 4 00 :00 dose, On Medi abhishek mg Sat Branch 09/19/22 at 1830, SHEEBA famotidine 2022- No 20mg 20 mg, [facility] ers (PEPCID 09-20 Slow IV ity of (PF)) 00:30: 00:36 Push, [place] injection 00 :00 ONCE, 1 Medical 20 mg dose, On Branch 09/19/22 at 1830, SHEEBA ipratropium 2022- No 3mL 3 mL, [facility] ers -albuteroL 09-20 Inhalation it y of (DUONEB) 00:28: 00:36 , ONCE, 1 [place] 0.5 mg-3 00 :00 dose, On Medical mg(2.5 mg Sat Branch base)/3 mL 09/19/22 at nebulizer 1830, SHEEBA solution 3 mL methylPREDN 2022-0 Yes [id number] [facility] [id number] mouth ity of mg tablets 00:00: SEE-INSTRU [place] 00 CTIONS. Medical follow Branch package directions methylPREDN 0 Yes [id number] Take by [place] [address] 14 [id number] mouth ity of mg tablets 00:00: SEE-INSTRU [place] 00 CTIONS. Medical follow Branch package directions methylPREDN 2023-0 Yes [id number] Take by [place] [address] 14 [id number] mouth ity of mg tablets 00:00: SEE-INSTRU [place] 00 CTIONS. Medical follow Branch package directions methylPREDN 2023-0 Yes [id number] Take by [place] [address] 14 [id number] mouth ity of mg tablets 00:00: SEE-INSTRU [place] 00 CTIONS. Medical follow Branch package directions methylPREDN 2023-0 Yes [id number] Take by [place] [address] 09-19 [id number] mouth ity of mg tablets 00:00: SEE-INSTRU [place] 00 CTIONS. Medical follow Branch package directions methylPREDN 2023-0 Yes [id number] Take by [place] [address] 09-19 [id number] mouth ity of mg tablets 00:00: SEE-INSTRU [place] 00 CTIONS. Medical follow Branch package directions methylPREDN 2023-0 Yes [id number] Take by [place] [address] 09-19 [id number] mouth ity of mg tablets 00:00: SEE-INSTRU [place] 00 CTIONS. Medical follow Branch package directions methylPREDN 2023-0 Yes [id number] Take by [place] [address] 09-19 [id number] mouth ity of mg tablets 00:00: SEE-INSTRU [place] 00 CTIONS. Medical follow Branch package directions methylPREDN 2023-0 Yes [id number] Take by [place] [address] 14 [id number] mouth ity of mg tablets 00:00: SEE-INSTRU [place] 00 CTIONS. Medical follow Branch package directions methylPREDN 2023-0 Yes [id number] Take by [place] [address] 14 [id number] mouth ity of mg tablets 00:00: SEE-INSTRU [place] 00 CTIONS. Medical follow Branch package directions methylPREDN 2023-0 Yes [id number] Take by [place] [address] 09-19 [id number] mouth ity of mg tablets 00:00: SEE-INSTRU [place] 00 CTIONS. Medical follow Branch package directions methylPREDN 2023-0 Yes [id number] Take by [place] [address] 14 [id number] mouth ity of mg tablets 00:00: SEE-INSTRU [place] 00 CTIONS. Medical follow Branch package directions methylPREDN 2023-0 Yes [id number] Take by [place] [address] 14 [id number] mouth ity of mg tablets 00:00: SEE-INSTRU [place] 00 CTIONS. Medical follow Branch package directions methylPREDN 2023-0 Yes [id number] Take by [place] [address] 14 [id number] mouth ity of mg tablets 00:00: SEE-INSTRU [place] 00 CTIONS. Medical follow Branch package directions methylPREDN 2023-0 Yes [id number] Take by [place] [address] 14 [id number] mouth ity of mg tablets 00:00: SEE-INSTRU [place] 00 CTIONS. Medical follow Branch package directions methylPREDN 2023-0 Yes [id number] Take by [place] [address] 09-19 [id number] mouth ity of mg tablets 00:00: SEE-INSTRU [place] 00 CTIONS. Medical follow Branch package directions methylPREDN 2023-0 Yes [id number] Take by [place] [address] 09-19 [id number] mouth ity of mg tablets 00:00: SEE-INSTRU [place] 00 CTIONS. Medical follow Branch package directions methylPREDN 2023-0 Yes [id number] Take by [place] [address] 09-19 [id number] mouth ity of mg tablets 00:00: SEE-INSTRU [place] 00 CTIONS. Medical follow Branch package directions methylPREDN 2023-0 Yes [id number] Take by [place] [address] 14 [id number] mouth ity of mg tablets 00:00: SEE-INSTRU [place] 00 CTIONS. Medical follow Branch package directions methylPREDN 2023-0 Yes [id number] Take by [place] [address] 14 [id number] mouth ity of mg tablets 00:00: SEE-INSTRU [place] 00 CTIONS. Medical follow Branch package directions methylPREDN 2023-0 2023- No [id number] Take by [place] [address] 14 [phone]- [id number] mouth ity of mg tablets 00:00: 00:00 SEE-INSTRU [place] 00 :00 CTIONS. Medical follow Branch package directions methylPREDN 2023-0 2023- No [id number] Take by [place] [address] 09-19 [id number] mouth ity of mg tablets 00:00: 00:00 SEE-INSTRU [place] 00 :00 CTIONS. Medical follow Branch package directions methylPREDN 2022- No [id number] Take by [place] [address] 09-19 [id number] mouth ity of mg tablets 00:00: 00:00 SEE-INSTRU [place] 00 :00 CTIONS. Medical follow Branch package directions methylPREDN 2022- No [id number] Take by [place] [address] 09-19 [id number] mouth ity of mg tablets 00:00: 00:00 SEE-INSTRU [place] 00 :00 CTIONS. Medical follow Branch package directions omalizumab 2022- No [id number] 150mg Univers (XOLAIR) 09-14 ity of injection 22:15: 10:14 [place] 150 mg 00 :00 [facility] omalizumab 20222022- No [id number] 150mg Univers (XOLAIR) 09-14 ity of injection 22:15: 10:14 [place] 150 mg 00 :00 [facility] omalizumab 2022- No [id number] 150mg Univers (XOLAIR) 09-14 ity of injection 22:15: 15:20 [place] 150 mg 00 :00 [facility] omalizumab 2022- No [id number] 150mg [facility] (XOLAIR) 09-14 ity of injection 22:15: 15:20 [place] 150 mg 00 :00 [facility] omalizumab 2022- No [id number] 150mg 150 mg, Univers (XOLAIR) 09-14 Subcutaneo ity of injection 22:15: 15:20 , ONCE, [place] 150 mg 00 :00 1 dose, On Medical 09/14/22 Branch at 1615, Routine
Restricte d use approved by: CATRACHITA MERCADO MD. (ALLERGY/I MMUNOLOGY) omalizumab 2022- No [id number] 150mg 150 mg, Univers (XOLAIR) 09-14 Subcutaneo ity of injection 22:15: 15:20 us, ONCE, [place] 150 mg 00 :00 1 dose, On Medical 09/14/22 Branch at 1615, Routine
Restricte d use approved by: CATRACHITA MERCADO MD. (ALLERGY/I MMUNOLOGY) omalizumab 2022- No [id number] 150mg [facility] (XOLAIR) 09-14 ity of injection 22:15: 15:20 [place] 150 mg 00 :00 Medical Branch omalizumab 2022- No [id number] 150mg [facility] (XOLAIR) 09-14 ity of injection 22:15: 15:20 [place] 150 mg 00 :00 [facility] Branch omalizumab 2022- No [id number] 150mg 150 mg, Univers (XOLAIR) 09-14 Subcutaneo ity of injection 22:15: 15:20 us, ONCE, [place] 150 mg 00 :00 1 dose, On Medical 09/14/22 Branch at 1615, Routine
Restricte d use approved by: CATRACHITA MERCADO MD. (ALLERGY/I MMUNOLOGY) omalizumab 2022- No [id number] 150mg 150 mg, Univers (XOLAIR) 09-14 Subcutaneo ity of injection 22:15: 15:20 us, ONCE, [place] 150 mg 00 :00 1 dose, On Medical 09/14/22 Branch at 1615, Routine
Restricte d use approved by: CATRACHITA MERCADO MD. (ALLERGY/I MMUNOLOGY) montelukast Yes [id number] 10mg Take 1 [facility] 10 mg 1-06 tablet by ity of tablet 00:00: mouth in [place] 00 the Medical morning. Branch EPINEPHrine Yes [id number] .3mg 0.3 mL by Univers (EPIPEN) 09-11 Intramuscu ity o f 0.3 mg/0.3 00:00: lar route [place] mL 00 as needed Medical injection (anaphylax Bran ch is). montelukast Yes [id number] 10mg Take 1 [facility] 10 mg 1-06 tablet by ity of tablet 00:00: mouth in [place] 00 the Medical morning. Branch EPINEPHrine 2022-0 Yes [id number] .3mg 0.3 mL by Univers (EPIPEN) 1-06 Intramuscu ity o f 0.3 mg/0.3 00:00: lar route [place] mL 00 as needed Medical injection (anaphylax Bran ch is). omalizumab 2022-0 Yes [id number] 300mg inject 2 [facility] (XOLAIR) 1-06 Syringes ity of injection 00:00: under the [place] 00 skin every Medical 2 (two) Branch weeks. montelukast 2022-0 Yes [id number] 10mg Take 1 [facility] 10 mg 1-06 tablet by ity of tablet 00:00: mouth in [place] 00 the Medical morning. Branch EPINEPHrine 2022-0 Yes [id number] .[id number] 0.3 mL by Univers (EPIPEN) 1-06 Intramuscu ity o f 0.3 mg/0.3 00:00: lar route [place] mL 00 as needed Medical injection (anaphylax Bran ch is). omalizumab 2022-0 Yes [id number] 300mg inject 2 [facility] (XOLAIR) 1-06 Syringes ity of injection 00:00: under the [place] 00 skin every Medical 2 (two) Branch weeks. montelukast 2022-0 Yes [id number] 10mg Take 1 [facility] 10 mg 1-06 tablet by ity of tablet 00:00: mouth in [place] 00 the Medical morning. Branch EPINEPHrine 2022-0 Yes [id number] .3mg 0.3 mL by Univers (EPIPEN) 1-06 Intramuscu ity o f 0.3 mg/0.3 00:00: lar route [place] mL 00 as needed Medical injection (anaphylax Bran ch is). omalizumab 2022-0 Yes [id number] 300mg inject 2 [facility] (XOLAIR) 1-06 Syringes ity of injection 00:00: under the [place] 00 skin every Medical 2 (two) Branch weeks. montelukast 3-0 Yes [id number] 10mg Take 1 [facility] 10 mg 1-06 tablet by ity of tablet 00:00: mouth in [place] 00 the Medical morning. Branch EPINEPHrine 2022-0 Yes [id number] .3mg 0.3 mL by Univers (EPIPEN) 1-06 Intramuscu ity o f 0.3 mg/0.3 00:00: lar route [place] mL 00 as needed Medical injection (anaphylax Bran ch is). omalizumab 2022-0 Yes [id number] 300mg inject 2 [facility] (XOLAIR) 1-06 Syringes ity of injection 00:00: under the [place] 00 skin every Medical 2 (two) Branch weeks. montelukast 2022-0 Yes [id number] 10mg Take 1 [facility] 10 mg 1-06 tablet by ity of tablet 00:00: mouth in [place] 00 the Medical morning. Branch EPINEPHrine 2022-0 Yes [id number] .3mg 0.3 mL by Univers (EPIPEN) 1-06 Intramuscu ity o f 0.3 mg/0.3 00:00: lar route [place] mL 00 as needed Medical injection (anaphylax Bran ch is). omalizumab 2022-0 Yes [id number] 300mg inject 2 [facility] (XOLAIR) 1-06 Syringes ity of injection 00:00: under the [place] 00 skin every Medical 2 (two) Branch weeks. montelukast 2022-0 Yes [id number] 10mg Take 1 [facility] 10 mg 1-06 tablet by ity of tablet 00:00: mouth in [place] 00 the Medical morning. Branch EPINEPHrine 2022-0 Yes [id number] .[id number] 0.3 mL by Univers (EPIPEN) 1-06 Intramuscu ity o f 0.3 mg/0.3 00:00: lar route [place] mL 00 as needed Medical injection (anaphylax Bran ch is). omalizumab 2022-0 Yes [id number] 300mg inject 2 [facility] (XOLAIR) 1-06 Syringes ity of injection 00:00: under the [place] 00 skin every Medical 2 (two) Branch weeks. montelukast 3-0 Yes [id number] 10mg Take 1 [facility] 10 mg 1-06 tablet by ity of tablet 00:00: mouth in [place] 00 the Medical morning. Branch EPINEPHrine 2022-0 Yes [id number] .[id number] 0.3 mL by Univers (EPIPEN) 1-06 Intramuscu ity o f 0.3 mg/0.3 00:00: lar route [place] mL 00 as needed Medical injection (anaphylax Bran ch is). omalizumab 3-0 Yes [id number] 300mg inject 2 [facility] (XOLAIR) 1-06 Syringes ity of injection 00:00: under the [place] 00 skin every Medical 2 (two) Branch weeks. montelukast 2022-0 Yes [id number] 10mg Take 1 [facility] 10 mg 1-06 tablet by ity of tablet 00:00: mouth in [place] 00 the Medical morning. Branch EPINEPHrine 2022-0 Yes [id number] .3mg 0.3 mL by Univers (EPIPEN) 1-06 Intramuscu ity o f 0.3 mg/0.3 00:00: lar route [place] mL 00 as needed Medical injection (anaphylax Bran ch is). omalizumab 2022-0 Yes [id number] 300mg inject 2 [facility] (XOLAIR) 1-06 Syringes ity of injection 00:00: under the [place] 00 skin every Medical 2 (two) Branch weeks. montelukast 2022-0 Yes [id number] 10mg Take 1 [facility] 10 mg 1-06 tablet by ity of tablet 00:00: mouth in [place] 00 the Medical morning. Branch EPINEPHrine 2022-0 Yes [id number] .3mg 0.3 mL by Univers (EPIPEN) 1-06 Intramuscu ity o f 0.3 mg/0.3 00:00: lar route [place] mL 00 as needed Medical injection (anaphylax Bran ch is). omalizumab 2022-0 Yes [id number] 300mg inject 2 Univers (XOLAIR) 1-06 Syringes ity of injection 00:00: under the [place] 00 skin every Medical 2 (two) Branch weeks. montelukast 2022-0 Yes [id number] 10mg Take 1 [facility] 10 mg 1-06 tablet by ity of tablet 00:00: mouth in [place] 00 the Medical morning. Branch EPINEPHrine 2022-0 Yes [id number] .3mg 0.3 mL by Univers (EPIPEN) 1-06 Intramuscu ity o f 0.3 mg/0.3 00:00: lar route [place] mL 00 as needed Medical injection (anaphylax Bran ch is). omalizumab 3-0 Yes [id number] 300mg inject 2 [facility] (XOLAIR) 1-06 Syringes ity of injection 00:00: under the [place] 00 skin every Medical 2 (two) Branch weeks. montelukast 2022-0 Yes [id number] 10mg Take 1 [facility] 10 mg 1-06 tablet by ity of tablet 00:00: mouth in [place] 00 the Medical morning. Branch EPINEPHrine 2022-0 Yes [id number] .[id number] 0.3 mL by Univers (EPIPEN) 1-06 Intramuscu ity o f 0.3 mg/0.3 00:00: lar route [place] mL 00 as needed Medical injection (anaphylax Bran ch is). omalizumab 2022-0 Yes [id number] 300mg inject 2 Univers (XOLAIR) 1-06 Syringes ity of injection 00:00: under the [place] 00 skin every Medical 2 (two) Branch weeks. montelukast 2022-0 Yes [id number] 10mg Take 1 [facility] 10 mg 1-06 tablet by ity of tablet 00:00: mouth in [place] 00 the Medical morning. Branch EPINEPHrine 2022-0 Yes [id number] .3mg 0.3 mL by Univers (EPIPEN) 1-06 Intramuscu ity o f 0.3 mg/0.3 00:00: lar route [place] mL 00 as needed Medical injection (anaphylax Bran ch is). omalizumab 2022-0 Yes [id number] 300mg inject 2 [facility] (XOLAIR) 1-06 Syringes ity of injection 00:00: under the [place] 00 skin every Medical 2 (two) Branch weeks. montelukast 2022-0 Yes [id number] 10mg Take 1 [facility] 10 mg 1-06 tablet by ity of tablet 00:00: mouth in [place] 00 the Medical morning. Branch EPINEPHrine 2022-0 Yes [id number] .3mg 0.3 mL by Univers (EPIPEN) 1-06 Intramuscu ity o f 0.3 mg/0.3 00:00: lar route [place] mL 00 as needed Medical injection (anaphylax Bran ch is). omalizumab 2022-0 Yes [id number] 300mg inject 2 [facility] (XOLAIR) 1-06 Syringes ity of injection 00:00: under the [place] 00 skin every Medical 2 (two) Branch weeks. montelukast 3-0 Yes [id number] 10mg Take 1 [facility] 10 mg 1-06 tablet by ity of tablet 00:00: mouth in [place] 00 the Medical morning. Branch EPINEPHrine 2022-0 Yes [id number] .[id number] 0.3 mL by Univers (EPIPEN) 1-06 Intramuscu ity o f 0.3 mg/0.3 00:00: lar route [place] mL 00 as needed Medical injection (anaphylax Bran ch is). omalizumab 2022-0 Yes [id number] 300mg inject 2 [facility] (XOLAIR) 1-06 Syringes ity of injection 00:00: under the [place] 00 skin every Medical 2 (two) Branch weeks. montelukast 2022-0 Yes [id number] 10mg Take 1 [facility] 10 mg 1-06 tablet by ity of tablet 00:00: mouth in [place] 00 the Medical morning. Branch EPINEPHrine 2022-0 Yes [id number] .3mg 0.3 mL by Univers (EPIPEN) 1-06 Intramuscu ity o f 0.3 mg/0.3 00:00: lar route [place] mL 00 as needed Medical injection (anaphylax Bran ch is). omalizumab 2022-0 Yes [id number] 300mg inject 2 Univers (XOLAIR) 1-06 Syringes ity of injection 00:00: under the [place] 00 skin every Medical 2 (two) Branch weeks. montelukast 2022-0 Yes [id number] 10mg Take 1 [facility] 10 mg 1-06 tablet by ity of tablet 00:00: mouth in [place] 00 the Medical morning. Branch EPINEPHrine 2022-0 Yes [id number] .3mg 0.3 mL by Univers (EPIPEN) 1-06 Intramuscu ity o f 0.3 mg/0.3 00:00: lar route [place] mL 00 as needed Medical injection (anaphylax Bran ch is). omalizumab 2022-0 Yes [id number] 300mg inject 2 Univers (XOLAIR) 1-06 Syringes ity of injection 00:00: under the [place] 00 skin every Medical 2 (two) Branch weeks. montelukast 3-0 Yes [id number] 10mg Take 1 [facility] 10 mg 1-06 tablet by ity of tablet 00:00: mouth in [place] 00 the Medical morning. Branch EPINEPHrine 2022-0 Yes [id number] .3mg 0.3 mL by Univers (EPIPEN) 1-06 Intramuscu ity o f 0.3 mg/0.3 00:00: lar route [place] mL 00 as needed Medical injection (anaphylax Bran ch is). omalizumab 2022-0 Yes [id number] 300mg inject 2 Univers (XOLAIR) 1-06 Syringes ity of injection 00:00: under the [place] 00 skin every Medical 2 (two) Branch weeks. montelukast 2022-0 Yes [id number] 10mg Take 1 [facility] 10 mg 1-06 tablet by ity of tablet 00:00: mouth in [place] 00 the Medical morning. Branch EPINEPHrine 2022-0 Yes [id number] .3mg 0.3 mL by Univers (EPIPEN) 1-06 Intramuscu ity o f 0.3 mg/0.3 00:00: lar route [place] mL 00 as needed Medical injection (anaphylax Bran ch is). omalizumab 2022-0 Yes [id number] 300mg inject 2 [facility] (XOLAIR) 1-06 Syringes ity of injection 00:00: under the [place] 00 skin every Medical 2 (two) Branch weeks. montelukast 2022-0 Yes [id number] 10mg Take 1 [facility] 10 mg 1-06 tablet by ity of tablet 00:00: mouth in [place] 00 the Medical morning. Branch EPINEPHrine 2022-0 Yes [id number] .[id number] 0.3 mL by Univers (EPIPEN) 1-06 Intramuscu ity o f 0.3 mg/0.3 00:00: lar route [place] mL 00 as needed Medical injection (anaphylax Bran ch is). omalizumab 2022-0 Yes [id number] 300mg inject 2 Univers (XOLAIR) 1-06 Syringes ity of injection 00:00: under the [place] 00 skin every Medical 2 (two) Branch weeks. montelukast 3-0 Yes [id number] 10mg Take 1 [facility] 10 mg 1-06 tablet by ity of tablet 00:00: mouth in [place] 00 the Medical morning. Branch EPINEPHrine 2022-0 Yes [id number] .3mg 0.3 mL by Univers (EPIPEN) 1-06 Intramuscu ity o f 0.3 mg/0.3 00:00: lar route [place] mL 00 as needed Medical injection (anaphylax Bran ch is). omalizumab 3-0 Yes [id number] 300mg inject 2 [facility] (XOLAIR) 1-06 Syringes ity of injection 00:00: under the [place] 00 skin every Medical 2 (two) Branch weeks. montelukast 3-0 Yes [id number] 10mg Take 1 [facility] 10 mg 1-06 tablet by ity of tablet 00:00: mouth in [place] 00 the Medical morning. Branch EPINEPHrine 2022-0 Yes [id number] .3mg 0.3 mL by Univers (EPIPEN) 1-06 Intramuscu ity o f 0.3 mg/0.3 00:00: lar route [place] mL 00 as needed Medical injection (anaphylax Bran ch is). omalizumab 3-0 Yes [id number] 300mg inject 2 [facility] (XOLAIR) 1-06 Syringes ity of injection 00:00: under the [place] 00 skin every Medical 2 (two) Branch weeks. montelukast 2022-0 Yes [id number] 10mg Take 1 [facility] 10 mg 1-06 tablet by ity of tablet 00:00: mouth in [place] 00 the Medical morning. Branch EPINEPHrine 2022-0 Yes [id number] .3mg 0.3 mL by Univers (EPIPEN) 1-06 Intramuscu ity o f 0.3 mg/0.3 00:00: lar route [place] mL 00 as needed Medical injection (anaphylax Bran ch is). omalizumab 3-0 Yes [id number] 300mg inject 2 [facility] (XOLAIR) 1-06 Syringes ity of injection 00:00: under the [place] 00 skin every Medical 2 (two) Branch weeks. omalizumab 3-0 Yes [id number] 300mg inject 2 [facility] (XOLAIR) 1-06 Syringes ity of injection 00:00: under the [place] 00 skin every Medical 2 (two) Branch weeks. omalizumab 3-0 Yes [id number] 300mg inject 2 [facility] (XOLAIR) 1-06 Syringes ity of injection 00:00: under the [place] 00 skin every Medical 2 (two) Branch weeks. omalizumab 2023-0 Yes [id number] 300mg inject 2 [facility] (XOLAIR) 1-06 Syringes ity of injection 00:00: under the [place] 00 skin every Medical 2 (two) Branch weeks. omalizumab 2022-0 Yes [id number] 300mg inject 2 [facility] (XOLAIR) 1-06 Syringes ity of injection 00:00: under the [place] 00 skin every Medical 2 (two) Branch weeks. omalizumab 2022-0 Yes [id number] 300mg inject 2 [facility] (XOLAIR) 1-06 Syringes ity of injection 00:00: under the [place] 00 skin every Medical 2 (two) Branch weeks. montelukast 2022- No [id number] 10mg Take 1 [facility] 10 mg 09-11 tablet by ity of tablet 00:00: 00:00 mouth in [place] 00 :00 the Medical morning. Branch EPINEPHrine 2022- No [id number] .3mg 0.3 mL by [facility] (EPIPEN) 09-11 Intramuscu ity of 0.3 mg/0.3 00:00: 00:00 lar route [place] mL 00 :00 as needed Medical injection (anaphylax Bran ch is). montelukast 2022- No [id number] 10mg Take 1 [facility] 10 mg 09-11 tablet by ity of tablet 00:00: 00:00 mouth in [place] 00 :00 the Medical morning. Branch EPINEPHrine 2022- No [id number] .3mg 0.3 mL by Univers (EPIPEN) 09-11 Intramuscu ity of 0.3 mg/0.3 00:00: 00:00 lar route [place] mL 00 :00 as needed Medical injection (anaphylax Bran ch is). montelukast 2022- No [id number] 10mg Take 1 [facility] 10 mg 09-11 tablet by ity of tablet 00:00: 00:00 mouth in [place] 00 :00 the Medical morning. Branch EPINEPHrine 2022- No [id number] .3mg 0.3 mL by Univers (EPIPEN) 09-11 Intramuscu ity of 0.3 mg/0.3 00:00: 00:00 lar route [place] mL 00 :00 as needed Medical injection (anaphylax Bran ch is). ketorolac 2021-09- No 30mg 30 mg, Unive rs (TORADOL) 10-30 12-24 Slow IV ity of injection 04:45: 03:54 Push, [place] 30 mg 00 :00 ONCE, 1 Medical dose, On Branch 08/28/22 at 2245, Routine iopamidol 2021-09- No [id number] 75mL 75 mL, U nivers (ISOVUE 10-30-24 Intravenou ity o f 370-500 mL) 04:15: 03:18 s, ONCE, 1 [place] injection 00 :00 dose, On Medica l 75 mL Fri Branch 08/28/22 at 2215, Routine dexamethaso 2021-09- No 10mg 10 mg, Uni vers ne sod phos 10-30 Slow IV ity of PF 04:00: 03:54 Push, [place] injection 00 :00 ONCE, 1 Medical 10 mg dose, On Branch 08/28/22 at 2200, 1 mL FENTanyl PF 2021-09- No 50ug 50 mcg, Un yesenia (SUBLIMAZE 10-30- Slow IV ity o f (PF)) 03:45: 03:06 Push, [place] injection 00 :00 ONCE, 1 Medical 50 mcg dose, On Branch 08/28/22 at 2145, Routine NaCl 0.9% 2021-09- No 1000mL at 999 Uni vers (NS) bolus 10-30-24 mL/hr, ity of infusion 03:45: 04:31 1,000 mL, [place] 1,000 mL 00 :00 IV Medical Infusion, Branch ONCE, 1 dose, On Wed08/28/22 at 2145, SHEEBA ondansetron 2021-09- No 4mg 4 mg, Slow Univers (ZOFRAN 10-30-24 IV [place], ity of (PF)) 03:00: 03:06 ONCE, 1 [place] injection 4 00 :00 dose, On Medi abhishek mg Fri Branch 08/28/22 at 2100, SHEEBA predniSONE 2021-09 Yes [id number] Take 3 U nivers 10 mg 2-23 tablets by ity of tablet 00:00: mouth [place] 00 daily for Medical 5 days Branch then take 2 tablets by mouth daily for 5 days then take 1 tablet by mouth daily for 5 days then take 0.5 tablets by mouth daily for 4 days then stop. predniSONE 2021-09 Yes [id number] Take 3 U nivers 10 mg 2-23 tablets by ity of tablet 00:00: mouth [place] 00 daily for Medical 5 days Branch then take 2 tablets by mouth daily for 5 days then take 1 tablet by mouth daily for 5 days then take 0.5 tablets by mouth daily for 4 days then stop. predniSONE 2021-09 Yes [id number] Take 3 U nivers 10 mg 2-23 tablets by ity of tablet 00:00: mouth [place] 00 daily for Medical 5 days Branch then take 2 tablets by mouth daily for 5 days then take 1 tablet by mouth daily for 5 days then take 0.5 tablets by mouth daily for 4 days then stop. predniSONE 2021-09 Yes [id number] Take 3 U nivers 10 mg 2-23 tablets by ity of tablet 00:00: mouth [place] 00 daily for Medical 5 days Branch then take 2 tablets by mouth daily for 5 days then take 1 tablet by mouth daily for 5 days then take 0.5 tablets by mouth daily for 4 days then stop. predniSONE 2021-09 Yes [id number] Take 3 U nivers 10 mg 2-23 tablets by ity of tablet 00:00: mouth [place] 00 daily for Medical 5 days Branch then take 2 tablets by mouth daily for 5 days then take 1 tablet by mouth daily for 5 days then take 0.5 tablets by mouth daily for 4 days then stop. predniSONE 2021-09 Yes [id number] Take 3 U nivers 10 mg 2-23 tablets by ity of tablet 00:00: mouth [place] 00 daily for Medical 5 days Branch then take 2 tablets by mouth daily for 5 days then take 1 tablet by mouth daily for 5 days then take 0.5 tablets by mouth daily for 4 days then stop. predniSONE 2021-09 Yes [id number] Take 3 U nivers 10 mg 2-23 tablets by ity of tablet 00:00: mouth [place] 00 daily for Medical 5 days Branch then take 2 tablets by mouth daily for 5 days then take 1 tablet by mouth daily for 5 days then take 0.5 tablets by mouth daily for 4 days then stop. predniSONE 2021-09 Yes [id number] Take 3 U nivers 10 mg 2-23 tablets by ity of tablet 00:00: mouth [place] 00 daily for Medical 5 days Branch then take 2 tablets by mouth daily for 5 days then take 1 tablet by mouth daily for 5 days then take 0.5 tablets by mouth daily for 4 days then stop. predniSONE 2021-09 Yes [id number] Take 3 U nivers 10 mg 2-23 tablets by ity of tablet 00:00: mouth [place] 00 daily for Medical 5 days Branch then take 2 tablets by mouth daily for 5 days then take 1 tablet by mouth daily for 5 days then take 0.5 tablets by mouth daily for 4 days then stop. predniSONE 2021-09 Yes [id number] Take 3 U nivers 10 mg 2-23 tablets by ity of tablet 00:00: mouth [place] 00 daily for Medical 5 days Branch then take 2 tablets by mouth daily for 5 days then take 1 tablet by mouth daily for 5 days then take 0.5 tablets by mouth daily for 4 days then stop. predniSONE 2021-09 Yes [id number] Take 3 U nivers 10 mg 2-23 tablets by ity of tablet 00:00: mouth [place] 00 daily for Medical 5 days Branch then take 2 tablets by mouth daily for 5 days then take 1 tablet by mouth daily for 5 days then take 0.5 tablets by mouth daily for 4 days then stop. predniSONE 2021-09 Yes [id number] Take 3 U nivers 10 mg 2-23 tablets by ity of tablet 00:00: mouth [place] 00 daily for Medical 5 days Branch then take 2 tablets by mouth daily for 5 days then take 1 tablet by mouth daily for 5 days then take 0.5 tablets by mouth daily for 4 days then stop. predniSONE 2021-09 Yes [id number] Take 3 U nivers 10 mg 2-23 tablets by ity of tablet 00:00: mouth [place] 00 daily for Medical 5 days Branch then take 2 tablets by mouth daily for 5 days then take 1 tablet by mouth daily for 5 days then take 0.5 tablets by mouth daily for 4 days then stop. predniSONE 2021-09 Yes [id number] Take 3 U nivers 10 mg 2-23 tablets by ity of tablet 00:00: mouth [place] 00 daily for Medical 5 days Branch then take 2 tablets by mouth daily for 5 days then take 1 tablet by mouth daily for 5 days then take 0.5 tablets by mouth daily for 4 days then stop. predniSONE 2021-09 Yes [id number] Take 3 U nivers 10 mg 2-23 tablets by ity of tablet 00:00: mouth [place] 00 daily for Medical 5 days Branch then take 2 tablets by mouth daily for 5 days then take 1 tablet by mouth daily for 5 days then take 0.5 tablets by mouth daily for 4 days then stop. predniSONE 2021-09 Yes [id number] Take 3 U nivers 10 mg 2-23 tablets by ity of tablet 00:00: mouth [place] 00 daily for Medical 5 days Branch then take 2 tablets by mouth daily for 5 days then take 1 tablet by mouth daily for 5 days then take 0.5 tablets by mouth daily for 4 days then stop. predniSONE 2021-09 Yes [id number] Take 3 U nivers 10 mg 2-23 tablets by ity of tablet 00:00: mouth [place] 00 daily for Medical 5 days Branch then take 2 tablets by mouth daily for 5 days then take 1 tablet by mouth daily for 5 days then take 0.5 tablets by mouth daily for 4 days then stop. predniSONE 2021-09 Yes [id number] Take 3 U nivers 10 mg 2-23 tablets by ity of tablet 00:00: mouth [place] 00 daily for Medical 5 days Branch then take 2 tablets by mouth daily for 5 days then take 1 tablet by mouth daily for 5 days then take 0.5 tablets by mouth daily for 4 days then stop. predniSONE 2021-09 Yes [id number] Take 3 U nivers 10 mg 2-23 tablets by ity of tablet 00:00: mouth [place] 00 daily for Medical 5 days Branch then take 2 tablets by mouth daily for 5 days then take 1 tablet by mouth daily for 5 days then take 0.5 tablets by mouth daily for 4 days then stop. predniSONE 2021-09 Yes [id number] Take 3 U nivers 10 mg 2-23 tablets by ity of tablet 00:00: mouth [place] 00 daily for Medical 5 days Branch then take 2 tablets by mouth daily for 5 days then take 1 tablet by mouth daily for 5 days then take 0.5 tablets by mouth daily for 4 days then stop. predniSONE 2021-09 Yes [id number] Take 3 U nivers 10 mg 2-23 tablets by ity of tablet 00:00: mouth [place] 00 daily for Medical 5 days Branch then take 2 tablets by mouth daily for 5 days then take 1 tablet by mouth daily for 5 days then take 0.5 tablets by mouth daily for 4 days then stop. predniSONE 2021-09 Yes [id number] Take 3 U nivers 10 mg 2-23 tablets by ity of tablet 00:00: mouth [place] 00 daily for Medical 5 days Branch then take 2 tablets by mouth daily for 5 days then take 1 tablet by mouth daily for 5 days then take 0.5 tablets by mouth daily for 4 days then stop. predniSONE 2021-09 Yes [id number] Take 3 U nivers 10 mg 2-23 tablets by ity of tablet 00:00: mouth [place] 00 daily for Medical 5 days Branch then take 2 tablets by mouth daily for 5 days then take 1 tablet by mouth daily for 5 days then take 0.5 tablets by mouth daily for 4 days then stop. predniSONE 2021-09 Yes [id number] Take 3 U nivers 10 mg 2-23 tablets by ity of tablet 00:00: mouth [place] 00 daily for Medical 5 days Branch then take 2 tablets by mouth daily for 5 days then take 1 tablet by mouth daily for 5 days then take 0.5 tablets by mouth daily for 4 days then stop. predniSONE 2021-09 Yes [id number] Take 3 U nivers 10 mg 2-23 tablets by ity of tablet 00:00: mouth [place] 00 daily for Medical 5 days Branch then take 2 tablets by mouth daily for 5 days then take 1 tablet by mouth daily for 5 days then take 0.5 tablets by mouth daily for 4 days then stop. predniSONE 2021-09 Yes [id number] Take 3 U nivers 10 mg 2-23 tablets by ity of tablet 00:00: mouth [place] 00 daily for Medical 5 days Branch then take 2 tablets by mouth daily for 5 days then take 1 tablet by mouth daily for 5 days then take 0.5 tablets by mouth daily for 4 days then stop. predniSONE 2021-09- No [id number] Take 3 [facility] 10 mg 2-23 06-01 tablets by ity of tablet 00:00: 00:00 mouth [place] 00 :00 daily for Medical 5 days Branch then take 2 tablets by mouth daily for 5 days then take 1 tablet by mouth daily for 5 days then take 0.5 tablets by mouth daily for 4 days then stop. predniSONE 2021-09- No [id number] Take 3 Univers 10 mg 2-23 06-01 tablets by ity of tablet 00:00: 00:00 mouth [place] 00 :00 daily for Medical 5 days Branch then take 2 tablets by mouth daily for 5 days then take 1 tablet by mouth daily for 5 days then take 0.5 tablets by mouth daily for 4 days then stop. predniSONE 2021-09- No [id number] Take 3 Univers 10 mg 10-29 tablets by ity of tablet 00:00: 00:00 mouth [place] 00 :00 daily for Medical 5 days Branch then take 2 tablets by mouth daily for 5 days then take 1 tablet by mouth daily for 5 days then take 0.5 tablets by mouth daily for 4 days then stop. omalizumab 2021-09- No [id number] 150mg U nivers (XOLAIR) 10-18 ity of injection 17:45: 16:53 [place] 150 mg 00 :00 [facility] omalizumab 2021-09- No [id number] 150mg U nivers (XOLAIR) 10-18 ity of injection 17:45: 16:53 [place] 150 mg 00 :00 [facility] omalizumab 2021-09- No [id number] 150mg U nivers (XOLAIR) 10-18 ity of injection 17:45: 16:53 [place] 150 mg 00 :00 [facility] omalizumab 2021-09- No [id number] 150mg 150 mg, Univers (XOLAIR) 10-18 Subcutaneo ity of injection 17:45: 16:53 us, ONCE, [place] 150 mg 00 :00 1 dose, On [facility] 08/17/22 at 1145, Routine
Restricte d use approved by: LORENE ROMAN MD. (ALLERGY/I MMUNOLOGY) omalizumab 2021-09- No [id number] 150mg 150 mg, Univers (XOLAIR) 10-18 Subcutaneo ity of injection 17:45: 16:53 us, ONCE, [place] 150 mg 00 :00 1 dose, On [facility] 08/17/22 at 1145, Routine
Restricte d use approved by: LORENE ROMAN MD. (ALLERGY/I MMUNOLOGY) omalizumab 2021-09- No [id number] 150mg 150 mg, Univers (XOLAIR) -12 12-12 Subcutaneo ity of injection 17:45: 16:53 us, ONCE, [place] 150 mg 00 :00 1 dose, On Medical Mon Branch 08/17/22 at 1145, Routine
Restricte d use approved by: LORENE ROMAN MD. (ALLERGY/I MMUNOLOGY) diphenhydrA 2021-09 Yes 50mg 50 mg, Univ ers MINE 2-10 Intravenou ity of (BENADRYL) 17:55: s, Q6HPRN, [place] injection 54 Starting Medica l 50 mg on Sat Branch 08/15/22 at 1155, Until Discontinu ed, Routine, Itching, rash dicyclomine 2021-09 Yes 10mg Take 10 mg Univers (BENTYL) 10 2-10 by mouth 4 it y of mg capsule 17:15: (four) [place] 49 times Medical daily as Branch needed for Abdominal pain. dicyclomine 2021-09 Yes 10mg Take 10 mg Univers (BENTYL) 10 2-10 by mouth 4 it y of mg capsule 17:15: (four) [place] 49 times Medical daily as Branch needed for Abdominal pain. dicyclomine 2021-09 Yes 10mg Take 10 mg Univers (BENTYL) 10 2-10 by mouth 4 it y of mg capsule 17:15: (four) [place] 49 times Medical daily as Branch needed for Abdominal pain. dicyclomine 2021-09 Yes 10mg Take 10 mg Univers (BENTYL) 10 2-10 by mouth 4 it y of mg capsule 17:15: (four) [place] 49 times Medical daily as Branch needed for Abdominal pain. dicyclomine 2021-09 Yes 10mg Take 10 mg Univers (BENTYL) 10 2-10 by mouth 4 it y of mg capsule 17:15: (four) [place] 49 times Medical daily as Branch needed for Abdominal pain. dicyclomine 2021-09 Yes 10mg Take 10 mg Univers (BENTYL) 10 2-10 by mouth 4 it y of mg capsule 17:15: (four) [place] 49 times Medical daily as Branch needed for Abdominal pain. dicyclomine 2021-09 Yes 10mg Take 10 mg Univers (BENTYL) 10 2-10 by mouth 4 it y of mg capsule 17:15: (four) [place] 49 times Medical daily as Branch needed for Abdominal pain. dicyclomine 2021- Yes 10mg Take 10 mg Univers (BENTYL) 10 2-10 by mouth 4 it y of mg capsule 17:15: (four) [place] 49 times Medical daily as Branch needed for Abdominal pain. dicyclomine 2021-1 Yes 10mg Take 10 mg Univers (BENTYL) 10 2-10 by mouth 4 it y of mg capsule 17:15: (four) [place] 49 times Medical daily as Branch needed for Abdominal pain. dicyclomine 2021-1 Yes 10mg Take 10 mg Univers (BENTYL) 10 2-10 by mouth 4 it y of mg capsule 17:15: (four) [place] 49 times Medical daily as Branch needed for Abdominal pain. dicyclomine 2021-1 Yes 10mg Take 10 mg Univers (BENTYL) 10 2-10 by mouth 4 it y of mg capsule 17:15: (four) [place] 49 times Medical daily as Branch needed for Abdominal pain. dicyclomine 2021- Yes 10mg Take 10 mg Univers (BENTYL) 10 2-10 by mouth 4 it y of mg capsule 17:15: (four) [place] 49 times Medical daily as Branch needed for Abdominal pain. dicyclomine 2021- Yes 10mg Take 10 mg Univers (BENTYL) 10 2-10 by mouth 4 it y of mg capsule 17:15: (four) [place] 49 times Medical daily as Branch needed for Abdominal pain. dicyclomine 2021- Yes 10mg Take 10 mg Univers (BENTYL) 10 2-10 by mouth 4 it y of mg capsule 17:15: (four) [place] 49 times Medical daily as Branch needed for Abdominal pain. dicyclomine 2021-1 Yes 10mg Take 10 mg Univers (BENTYL) 10 2-10 by mouth 4 it y of mg capsule 17:15: (four) [place] 49 times Medical daily as Branch needed for Abdominal pain. dicyclomine 2-1 Yes 10mg Take 10 mg Univers (BENTYL) 10 2-10 by mouth 4 it y of mg capsule 17:15: (four) [place] 49 times Medical daily as Branch needed for Abdominal pain. dicyclomine 2-1 Yes 10mg Take 10 mg Univers (BENTYL) 10 2-10 by mouth 4 it y of mg capsule 17:15: (four) [place] 49 times Medical daily as Branch needed for Abdominal pain. dicyclomine 2021- Yes 10mg Take 10 mg Univers (BENTYL) 10 2-10 by mouth 4 it y of mg capsule 17:15: (four) [place] 49 times Medical daily as Branch needed for Abdominal pain. dicyclomine 2021-1 Yes 10mg Take 10 mg Univers (BENTYL) 10 2-10 by mouth 4 it y of mg capsule 17:15: (four) [place] 49 times Medical daily as Branch needed for Abdominal pain. dicyclomine 2021-1 Yes 10mg Take 10 mg Univers (BENTYL) 10 2-10 by mouth 4 it y of mg capsule 17:15: (four) [place] 49 times Medical daily as Branch needed for Abdominal pain. dicyclomine 2021-1 Yes 10mg Take 10 mg Univers (BENTYL) 10 2-10 by mouth 4 it y of mg capsule 17:15: (four) [place] 49 times Medical daily as Branch needed for Abdominal pain. dicyclomine 2021- Yes 10mg Take 10 mg Univers (BENTYL) 10 2-10 by mouth 4 it y of mg capsule 17:15: (four) [place] 49 times Medical daily as Branch needed for Abdominal pain. dicyclomine 2021- Yes 10mg Take 10 mg Univers (BENTYL) 10 2-10 by mouth 4 it y of mg capsule 17:15: (four) [place] 49 times Medical daily as Branch needed for Abdominal pain. dicyclomine 2021- Yes 10mg Take 10 mg Univers (BENTYL) 10 2-10 by mouth 4 it y of mg capsule 17:15: (four) [place] 49 times Medical daily as Branch needed for Abdominal pain. dicyclomine 2021-1 Yes 10mg Take 10 mg Univers (BENTYL) 10 2-10 by mouth 4 it y of mg capsule 17:15: (four) [place] 49 times Medical daily as Branch needed for Abdominal pain. dicyclomine 2-1 Yes 10mg Take 10 mg Univers (BENTYL) 10 2-10 by mouth 4 it y of mg capsule 17:15: (four) [place] 49 times Medical daily as Branch needed for Abdominal pain. dicyclomine 2-1 Yes 10mg Take 10 mg Univers (BENTYL) 10 2-10 by mouth 4 it y of mg capsule 17:15: (four) [place] 49 times Medical daily as Branch needed for Abdominal pain. dicyclomine 2021-09 Yes 10mg Take 10 mg Univers (BENTYL) 10 2-10 by mouth 4 it y of mg capsule 17:15: (four) [place] 49 times Medical daily as Branch needed for Abdominal pain. dicyclomine 2021-09 Yes 10mg Take 10 mg Univers (BENTYL) 10 2-10 by mouth 4 it y of mg capsule 17:15: (four) [place] 49 times Medical daily as Branch needed for Abdominal pain. dicyclomine 2021-09 Yes 10mg Take 10 mg Univers (BENTYL) 10 2-10 by mouth 4 it y of mg capsule 17:15: (four) [place] 49 times Medical daily as Branch needed for Abdominal pain. dicyclomine 2021-09 Yes 10mg Take 10 mg Univers (BENTYL) 10 2-10 by mouth 4 it y of mg capsule 17:15: (four) [place] 49 times Medical daily as Branch needed for Abdominal pain. dicyclomine 2021-09 Yes 10mg Take 10 mg Univers (BENTYL) 10 2-10 by mouth 4 it y of mg capsule 17:15: (four) [place] 49 times Medical daily as Branch needed for Abdominal pain. dicyclomine 2021-09 Yes 10mg Take 10 mg Univers (BENTYL) 10 2-10 by mouth 4 it y of mg capsule 17:15: (four) [place] 49 times Medical daily as Branch needed for Abdominal pain. dicyclomine 2021-09 Yes 10mg Take 10 mg Univers (BENTYL) 10 2-10 by mouth 4 it y of mg capsule 17:15: (four) [place] 49 times Medical daily as Branch needed for Abdominal pain. diphenhydrA 2021-09 50mg 50 mg, Uni vers MINE 2-10 12-10 Intravenou ity of (BENADRYL) 16:45: 16:00 s, ONCE, 1 [place] injection 00 :00 dose, On Medica l 50 mg Sat Branch 08/15/22 at 1045, Routine montelukast 2021-09 Yes 10mg 10 mg, Univ ers (SINGULAIR) 2-10 Oral, ity of tablet 10 15:00: DAILY, [place] mg 00 First dose Medical on Sat Branch 08/15/22 at 0900, Until Discontinu ed, Routine lamoTRIgine 2021-09 Yes 200mg 200 mg, Un yesenia (LAMICTAL) 2-10 Oral, ity of tablet 200 15:00: DAILY, [place] mg 00 First dose Medical on [facility] Branch 08/15/22 at 0900, Until Discontinu ed, Routine fluticasone 2021-09 Yes 1{spray 1 [place], Univers propionate 2-10 } Nasal, ity of 50 15:00: DAILY, [place] mcg/actuati 00 First dose Me dical on nasal on [facility] Branch spray 1 08/15/22 [place] at 0900, Until Discontinu ed, Routine atorvastati 2021-09 Yes 20mg 20 mg, Univ ers n (LIPITOR) 2-10 Oral, QHS, it y of tablet 20 03:00: First dose [place] mg 00 on [facility] Medical 08/14/22 at Branch 2100, Until Discontinu ed, Routine methylPREDN 2021-09 Yes 40mg 40 mg, Univ ers ISolone sod 2-10 Intravenou it y of succ 02:00: s, Q12H, [place] (SOLU-MEDRO 00 First dose Me dical L (PF)) on Wed Branch injection 08/14/22 at 40 mg 1999, Until Discontinu ed, 1 mL famotidine 2021-09 Yes 20mg 20 mg, Unive rs (PEPCID AC) 2-10 Oral, BID, it y of tablet 20 02:00: First dose [place] mg 00 on Wed Medical 08/14/22 at Branch 1999, Until Discontinu ed, Routine cetirizine 2021-09 Yes 10mg 10 mg, Unive rs (ZYRTEC) 2-10 Oral, BID, ity o f tablet 10 02:00: First dose [place] mg 00 on Wed Medical 08/14/22 at Branch 1999, Until Discontinu ed, Routine hydralAZINE 2021-09 Yes 10mg 10 mg, Univ ers (APRESOLINE 2-10 Slow IV ity o f ) injection 01:01: Push, [place] 10 mg 30 Q4HPRN, Medical Starting Branch on Wed08/14/22 at 1901, Until Discontinu ed, Routine, DBP=>10 0; SBP=>160, For SBP > 160 ALPRAZolam 2021-09 Yes .25mg 0.25 mg, Un yesenia (XANAX) 2-10 Oral, ity of tablet 0.25 00:47: TIDPRN, [place] mg 21 Starting Medical on Wed Branch 08/14/22 at 1847, Until Discontinu ed, Routine, anxiety ondansetron 2021-09 Yes 4mg 4 mg, Unive rs (ZOFRAN) 4 2-10 Oral, ity of mg/5 mL 00:47: Q6HPRN, [place] solution 4 10 Starting Medic al mg on Wed Branch 08/14/22 at 1847, Until Discontinu ed, Routine, Nausea and Vomiting (N/V) dicyclomine 2021-09 Yes 10mg 10 mg, Univ ers (BENTYL) 2-10 Oral, ity of capsule 10 00:00: QIDPRN, [place] mg 32 Starting Medical on Wed Branch 08/14/22 at 1800, Until Discontinu ed, Routine, Abdominal pain cyclobenzap 2021-09 Yes 10mg 10 mg, Univ ers rine 2-10 Oral, ity of (FLEXERIL) 00:00: QHSPRN, [place] tablet 10 26 Starting Medica l mg on Wed Branch 08/14/22 at 1800, Until Discontinu ed, Routine, Muscle Spasms albuterol 2021-09 Yes 2{puff} 2 Puff, Un yesenia (VENTOLIN) 2-10 Inhalation ity of inhaler 2 00:00: , Q6HPRN, [place] Puff 03 Starting Medical on Wed Branch 08/14/22 at 1800, Until Discontinu ed, Routine, Wheezing, Shortness of Breath predniSONE 2021-09- No [id number] 40mg Take 2 Univers 20 mg 2-10 12-14 tablets by ity of tablet 00:00: 05:59 mouth in [place] 00 :00 the Medical morning Branch for 3 days. predniSONE 2021-09- No [id number] 40mg Take 2 Univers 20 mg 2-10 12-14 tablets by ity of tablet 00:00: 05:59 mouth in [place] 00 :00 the Medical morning Branch for 3 days. predniSONE 2021-09- No [id number] 40mg Take 2 Univers 20 mg 2-10 12-14 tablets by ity of tablet 00:00: 05:59 mouth in [place] 00 :00 the Medical morning Branch for 3 days. enoxaparin 2021-09 Yes 40mg 40 mg, Unive rs (LOVENOX) 10-15 Subcutaneo ity of injection 23:00: us, DAILY, [place] 40 mg 00 First dose Medical on Fri Branch 08/14/22 at 1700, Until Discontinu ed, Routine KCL 20 2021-09- No 40meq 40 mEq, Univer s mEq/15 mL 10-15 Oral, ity of solution 40 22:00: 21:08 ONCE, 1 [place] mEq 00 :00 dose, On Medical Fri Branch 08/14/22 at 1600, Routine NaCl 0.9% 2021-09- No 1000mL at 999 Uni vers (NS) IV 10-15 mL/hr, ity of infusion 20:30: 20:02 Intravenou [place] 1,000 mL 00 :00 s, ONCE, 1 Medic al dose, On Branch 08/14/22 at 1430, SHEEBA racEPINEPHr 2021-09- No .5mL 0.5 mL, Un yesenia ine (S2 10-15 Inhalation ity o f RACEMIC) 19:30: 19:32 , ONCE, 1 [place] 2.25 % 00 :00 dose, On Medical nebulizer Fri Branch solution 08/14/22 at 0.5 mL 1330, STAT famotidine 2021-09- No 20mg 20 mg, Univ ers (PEPCID 10-15 Slow IV ity of (PF)) 19:21: 19:22 Push, [place] injection 00 :00 ONCE, 1 Medical 20 mg dose, On Branch 08/14/22 at 1330, SHEEBA omalizumab 2021-09 Yes 450mg inject 3 Un yesenia (XOLAIR) 2-09 Syringes ity of injection 00:00: under the [place] 00 skin every Medical 4 (four) Branch weeks. omalizumab 2021-09 Yes 450mg inject 3 Un yesenia (XOLAIR) 2-09 Syringes ity of injection 00:00: under the [place] 00 skin every Medical 4 (four) Branch weeks. omalizumab 2021-09 Yes 450mg inject 3 Un yesenia (XOLAIR) 2-09 Syringes ity of injection 00:00: under the [place] 00 skin every Medical 4 (four) Branch weeks. omalizumab 2021-09 Yes 450mg inject 3 Un yesenia (XOLAIR) 2-09 Syringes ity of injection 00:00: under the [place] 00 skin every Medical 4 (four) Branch weeks. omalizumab 2021-09 Yes 450mg inject 3 Un yesenia (XOLAIR) 2-09 Syringes ity of injection 00:00: under the [place] 00 skin every Medical 4 (four) Branch weeks. omalizumab 2021-09 Yes 450mg inject 3 Un yesenia (XOLAIR) 2-09 Syringes ity of injection 00:00: under the [place] 00 skin every Medical 4 (four) Branch weeks. omalizumab 2021-09- No 450mg inject 3 U nivers (XOLAIR) 2-06 Syringes ity of injection 00:00: 00:00 under the [place] 00 :00 skin every Medical 4 (four) Branch weeks. omalizumab 2021-09- No 450mg inject 3 U nivers (XOLAIR) 10-15-06 Syringes ity of injection 00:00: 00:00 under the [place] 00 :00 skin every Medical 4 (four) Branch weeks. omalizumab 2021-09- No 450mg inject 3 U nivers (XOLAIR) 10-15-06 Syringes ity of injection 00:00: 00:00 under the [place] 00 :00 skin every Medical 4 (four) Branch weeks. EPINEPHrine 2021-09- No [id number] .3mg 0.3 mL by Univers 0.3 mg/0.3 10-15 12-10 Intramuscu it y of mL 00:00: 05:59 lar route [place] injection 00 :00 once now Medica l for 1 Branch dose. omalizumab 2021-09- No [id number] 150mg U nivers (XOLAIR) 16 11-16 ity of injection 19:00: 18:05 [place] 150 mg 00 :00 Medical Branch omalizumab 2021-09- No [id number] 150mg U nivers (XOLAIR) 09-21 ity of injection 19:00: 18:05 [place] 150 mg 00 :00 [facility] Branch omalizumab 2021-09- No [id number] 150mg U nivers (XOLAIR) 09-21 ity of injection 19:00: 18:04 [place] 150 mg 00 :00 [facility] Branch omalizumab 2021-09- No [id number] 150mg 150 mg, Univers (XOLAIR) 09-21 Subcutaneo ity of injection 19:00: 18:04 us, ONCE, [place] 150 mg 00 :00 1 dose, On [facility] Branch 07/22/22 at 1300, Routine
Restricte d use approved by: LORENE ROMAN MD. (ALLERGY/I MMUNOLOGY) omalizumab 2021-09- No [id number] 150mg 150 mg, Univers (XOLAIR) 09-21 Subcutaneo ity of injection 19:00: 18:05 [place], [place]CE[place] 150 mg 00 :00 1 dose, On [facility] Branch 07/22/22 at 1300, Routine
Restricte d use approved by: LORENE ROMAN MD. (ALLERGY/I MMUNOLOGY) omalizumab 2021-09- No [id number] 150mg 150 mg, [facility] (XOLAIR) 09-21 Subcutaneo ity of injection 19:00: 18:05 [place], [place] 150 mg 00 :00 1 dose, On Medical [facility] Branch 07/22/22 at 1300, Routine
Restricte d use approved by: LORENE ROMAN MD. (ALLERGY/I MMUNOLOGY) predniSONE 2021-09- No 40mg 40 mg, Univ ers (DELTASONE) 006-28 Oral, ity of tablet 40 16:45: 16:49 ONCE, [place] mg 00 :00 dose, On [facility] Branch 06/28/22 at 1145, Routine montelukast 2021-09 Yes 10mg 10 mg, Univ ers (SINGULAIR) 0-23 Oral, ity of tablet 10 14:00: DAILY, [place] mg 00 First dose Medical on [place] [facility] 06/28/22 at 0900, Until Discontinu ed, Routine lamoTRIgine 2021-09 Yes 200mg 200 mg, Un yesenia (LAMICTAL) 0-23 Oral, QAM, ity of tablet 200 14:00: First dose [place] mg 00 on [facility] 06/28/22 Branch at 0900, Until Discontinu ed, Routine fluticasone 2021-09 Yes 1{spray 1 [place], [facility] propionate 0-23 } Nasal, ity of 50 14:00: DAILY, [place] mcg/actuati 00 First dose Me dical on nasal on [place] Branch spray 1 06/28/22 [place] at 0900, Until Discontinu ed, Routine atorvastati 2021-09 Yes 20mg 20 mg, Univ ers n (LIPITOR) 0-23 Oral, ity of tablet 20 14:00: DAILY, [place] mg 00 First dose Medical on [facility] 06/28/22 at 0900, Until Discontinu ed, Routine enoxaparin 2021-09 Yes 40mg 40 mg, Unive rs (LOVENOX) 0-23 Subcutaneo ity of injection 14:00: [place], DAILY, [place] 40 mg 00 First dose Medical on [place] Branch 06/28/22 at 0900, Until Discontinu ed, Routine dicyclomine 2021-09 Yes 10mg Take 10 mg [facility] (BENTYL) 10 0-23 by mouth 4 it y of mg capsule 13:32: (four) [place] 28 times Medical daily as Branch needed for Abdominal pain. dicyclomine 2021-09 Yes 10mg Take 10 mg [facility] (BENTYL) 10 0-23 by mouth 4 it y of mg capsule 13:32: (four) [place] 28 times Medical daily as Branch needed for Abdominal pain. dicyclomine 2021-09 Yes 10mg Take 10 mg [facility] (BENTYL) 10 0-23 by mouth 4 it y of mg capsule 13:32: (four) [place] 28 times Medical daily as Branch needed for Abdominal pain. dicyclomine 2021-09 Yes 10mg Take 10 mg [facility] (BENTYL) 10 0-23 by mouth 4 it y of mg capsule 13:32: (four) [place] 28 times Medical daily as Branch needed for Abdominal pain. famotidine 2021-09 Yes 20mg 20 mg, Unive rs (PEPCID AC) 0-23 Oral, BID, it y of tablet 20 13:00: [place] dose [place] mg 00 on [facility] 06/28/22 Branch at 0800, Until Discontinu ed, Routine acetaminoph 2021-09 Yes 650mg 650 mg, Un yesenia en 0-23 Oral, ity of (TYLENOL) 12:31: Q6HPRN, [place] tablet 650 12 Starting Medic al mg on [facility] 06/28/22 at 0731, Until Discontinu ed, Routine, Pain (scale 1-3) NaCl 0.9% 2021-09 Yes 1000mL at 125 Univ ers (NS) IV 0-23 mL/hr, IV ity of infusion 05:30: Infusion[place] 1,000 mL 00 CONTINUOUS Medic al , Starting Branch on [place] 06/28/22 at 0030, Until Discontinu ed, Routine ondansetron 2021-09 Yes 4mg 4 mg, Slow Univers (ZOFRAN 0-23 IV Push, ity of (PF)) 03:07: Q6HPRN, [place] injection 4 06 Starting Medi abhishek mg on [facility] Branch 06/27/22 at 2207, Until Discontinu ed, Routine, Nausea and Vomiting (N/V) NaCl 0.9% 2021-09- No 1000mL at 125 Uni vers (NS) IV 0-23 10-23 mL/hr, IV ity of infusion 03:00: 11:00 Infusion, [place] 1,000 mL 00 :00 ONCE, 1 Medical dose, On Branch [facility] 06/27/22 at 2200, Routine KCL 2021-09- No 40meq 40 mEq, Univers (KLOR-CON 0-23 10-23 Oral, ity of M20) tablet 03:00: 02:33 ONCE, 1 [place] 40 mEq 00 :00 dose, On Medical [facility] 06/27/22 at 2200, Routine hydrOXYzine 2021-09 Yes 25mg 25 mg, Univ ers (ATARAX) 0-23 Oral, ity of tablet 25 01:43: Q8HPRN, [place] mg 10 Starting Medical on [facility] Branch 06/27/22 at 2043, Until Discontinu ed, Itching dicyclomine 2021-09 Yes 10mg 10 mg, Univ ers (BENTYL) 0-23 Oral, ity of capsule 10 01:42: QIDPRN, [place] mg 46 Starting Medical on [facility] Branch 06/27/22 at 2041, Until Discontinu ed, Routine, Abdominal pain cyclobenzap 2021-09 Yes 10mg 10 mg, Univ ers rine 0-23 Oral, ity of (FLEXERIL) 01:42: QHSPRN, [place] tablet 10 33 Starting Medica l mg on [place] Branch 06/27/22 at 2041, Until Discontinu ed, Routine, Muscle Spasms predniSONE 2021-09- No [id number] 40mg Take 2 Univers 20 mg 007-02 [id number] tablets by ity o f tablet 00:00: 04:59 mouth in [place] 00 :00 the Medical [facility] Branch for 3 days. predniSONE 2021-09- No [id number] 40mg Take 2 Univers 20 mg 007-02 [id number] tablets by ity o f tablet 00:00: 04:59 mouth in [place] 00 :00 the [facility] for 3 days. EPINEPHrine 2021-09- No [id number] .3mg 0.3 mL by Univers 0.3 mg/0.3 06-29 [id number] Intramuscu ity of mL 00:00: 04:59 lar route [place] injection 00 :00 once now Medica l for 1 Branch dose. loratadine 2021-09 Yes 10mg 10 mg, Unive rs (CLARITIN) 0- Oral, ity of tablet 10 23:00: DAILY, [place] mg 00 First dose Medical on [facility] Branch 06/27/22 at 1800, Until Discontinu ed, Routine methylpredn 2021-09- No 60mg 60 mg, Uni vers isolone sod 006-28 Intravenou i ty of succ 23:00: 15:45 s, Q6H, 4 [place] (SOLU-MEDRO 00 :52 doses, Medica l L) First dose Branch injection on Sat 60 mg 06/27/22 at 1800, Last dose on 06/28/22 at 1200, 2 mL NaCl 0.9% 2021-09- No 1000mL at 999 Uni vers (NS) bolus 0- 10-22 mL/hr, ity of infusion 20:30: 22:00 1,000 mL, [place] 1,000 mL 00 :00 IV Medical Piggyback, Branch ONCE, 1 dose, On 06/27/22 at 1530, STAT proMETHazin 2021-09- No 25mg 25 mg, IV Univers e 06-27 Piggyback, ity of (PHENERGAN) 20:00: 19:58 ONCE, 1 [place] 25 mg in 00 :00 dose, On Medical NaCl 0.9% Sat Branch (NS) 50 mL 06/27/22 IV at 1500, piggyback [place] famotidine 2021-09- No 20mg 20 mg, Univ ers (PEPCID 06-27 Slow IV ity of (PF)) 19:00: 19:17 Push, [place] injection 00 :00 ONCE, 1 Medical 20 mg dose, On Branch 06/27/22 at 1400, [place] racEPINEPHr 2021-09- No .5mL 0.5 mL, Un yesenia ine (S2 06-27 Inhalation ity o f RACEMIC) 19:00: 18:51 , ONCE, 1 [place] 2.25 % 00 :00 dose, On Medical nebulizer Sat Branch solution 06/27/22 0.5 mL at 1400, STAT omalizumab 2021-09- No [id number] 150mg U nivers (XOLAIR) 0-20 10-20 ity of injection 18:00: 17:06 [place] 150 mg 00 :00 Medical Branch omalizumab 2021-09- No [id number] 150mg U nivers (XOLAIR) 0-20 10-20 ity of injection 18:00: 17:06 [place] 150 mg 00 :00 Medical Branch omalizumab 2021-09- No [id number] 150mg U nivers (XOLAIR) 0-20 10-20 ity of injection 18:00: 17:05 [place] 150 mg 00 :00 Medical Branch omalizumab 2021-09- No [id number] 150mg 150 mg, Univers (XOLAIR) 0-20 10-20 Subcutaneo ity of injection 18:00: 17:05 [place], ONCE, [place] 150 mg 00 :00 1 dose, On Medical [place] [facility] 06/25/22 at 1300, Routine
Restricte d use approved by: CATRACHITA MERCADO MD. (ALLERGY/I MMUNOLOGY) omalizumab 2021-09- No [id number] 150mg 150 mg, [facility] (XOLAIR) 0-20 10-20 Subcutaneo ity of injection 18:00: 17:06 [place], ONCE, [place] 150 mg 00 :00 1 dose, On Medical [place] [facility] 06/25/22 at 1300, Routine
Restricte d use approved by: CATRACHITA MERCADO MD. (ALLERGY/I MMUNOLOGY) omalizumab 2021-09- No [id number] 150mg 150 mg, [facility] (XOLAIR) 0-20 10-20 Subcutaneo ity of injection 18:00: 17:06 [place], ONCE, [place] 150 mg 00 :00 1 dose, On Medical [facility] Branch 06/25/22 at 1300, Routine
Restricte d use approved by: CATRACHITA MERCADO MD. (ALLERGY/I MMUNOLOGY) omalizumab 2021- No [id number] 150mg U nivers (XOLAIR) 05-28 ity of injection 17:45: 17:10 [place] 150 mg 00 :00 Medical Branch omalizumab 2021- No [id number] 150mg U nivers (XOLAIR) 05-28 ity of injection 17:45: 17:10 [place] 150 mg 00 :00 Medical Branch omalizumab 2021- No [id number] 150mg U nivers (XOLAIR) 05-28 ity of injection 17:45: 17:09 [place] 150 mg 00 :00 Medical Branch omalizumab 2021- No [id number] 150mg 150 mg, Univers (XOLAIR) 05-28 Subcutaneo ity of injection 17:45: 17:09 [place], ONCE, [place] 150 mg 00 :00 1 dose, On Medical [place] [facility] 05/28/22 at 1245, Routine
Restricte d use approved by: CATRACHITA MERCADO MD. (ALLERGY/I MMUNOLOGY) omalizumab 2021- No [id number] 150mg 150 mg, [facility] (XOLAIR) 05-28 Subcutaneo ity of injection 17:45: 17:10 [place], ONCE, [place] 150 mg 00 :00 1 dose, On [facility] Branch 05/28/22 at 1245, Routine
Restricte d use approved by: CATRACHITA MERCADO MD. (ALLERGY/I MMUNOLOGY) omalizumab 2021- No [id number] 150mg 150 mg, [facility] (XOLAIR) 05-28 Subcutaneo ity of injection 17:45: 17:10 [place], ONCE, [place] 150 mg 00 :00 1 dose, On [facility] Branch 05/28/22 at 1245, Routine
Restricte d use approved by: CATRACHITA MERCADO MD. (ALLERGY/I MMUNOLOGY) omalizumab 2021- No [id number] 150mg U nivers (XOLAIR) 05-28 ity of injection 17:45: 17:10 [place] 150 mg 00 :00 Medical Branch omalizumab 2021- No [id number] 150mg U nivers (XOLAIR) 05-28 ity of injection 17:45: 17:10 [place] 150 mg 00 :00 Medical Branch omalizumab 2021- No [id number] 150mg U nivers (XOLAIR) 05-28 ity of injection 17:45: 17:09 [place] 150 mg 00 :00 Medical Branch omalizumab 2021- No [id number] 150mg 150 mg, Univers (XOLAIR) 05-28 Subcutaneo ity of injection 17:45: 17:09 [place], ONCE, [place] 150 mg 00 :00 1 dose, On [facility] Branch 05/28/22 at 1245, Routine
Restricte d use approved by: CATRACHITA MERCADO MD. (ALLERGY/I MMUNOLOGY) omalizumab 2021- No [id number] 150mg 150 mg, [facility] (XOLAIR) 05-28 Subcutaneo ity of injection 17:45: 17:10 [place], ONCE, [place] 150 mg 00 :00 1 dose, On [facility] Branch 05/28/22 at 1245, Routine
Restricte d use approved by: CATRACHITA MERCADO MD. (ALLERGY/I MMUNOLOGY) omalizumab 2021- No [id number] 150mg 150 mg, [facility] (XOLAIR) 05-28 Subcutaneo ity of injection 17:45: 17:10 [place], ONCE, [place] 150 mg 00 :00 1 dose, On [facility] 05/28/22 at 1245, Routine
Restricte d use approved by: CATRACHITA MERCADO MD. (ALLERGY/I MMUNOLOGY) omalizumab 2021- No [id number] 150mg U nivers (XOLAIR) 05-28 ity of injection 17:45: 17:10 [place] 150 mg 00 :00 Medical Branch omalizumab 2021- No [id number] 150mg U nivers (XOLAIR) 05-28 ity of injection 17:45: 17:10 [place] 150 mg 00 :00 Medical Branch omalizumab 2021- No [id number] 150mg U nivers (XOLAIR) 05-28 ity of injection 17:45: 17:09 [place] 150 mg 00 :00 Medical Branch omalizumab 2021- No [id number] 150mg 150 mg, Univers (XOLAIR) 05-28 Subcutaneo ity of injection 17:45: 17:09 [place], ONCE, [place] 150 mg 00 :00 1 dose, On [facility] 05/28/22 at 1245, Routine
Restricte d use approved by: CATRACHITA MERCADO MD. (ALLERGY/I MMUNOLOGY) omalizumab 2021- No [id number] 150mg 150 mg, [facility] (XOLAIR) 05-28 Subcutaneo ity of injection 17:45: 17:10 [place], ONCE, [place] 150 mg 00 :00 1 dose, On [facility] Branch 05/28/22 at 1245, Routine
Restricte d use approved by: CATRACHITA MERCADO MD. (ALLERGY/I MMUNOLOGY) omalizumab 2021- No [id number] 150mg 150 mg, [facility] (XOLAIR) 05-28 Subcutaneo ity of injection 17:45: 17:10 [place], ONCE, [place] 150 mg 00 :00 1 dose, On [facility] Branch 05/28/22 at 1245, Routine
Restricte d use approved by: CATRACHITA MERCADO MD. (ALLERGY/I MMUNOLOGY) omalizumab 2021- No [id number] 150mg U nivers (XOLAIR) 05-28 ity of injection 17:45: 17:10 [place] 150 mg 00 :00 Medical Branch omalizumab 2021- No [id number] 150mg U nivers (XOLAIR) 05-28 ity of injection 17:45: 17:10 [place] 150 mg 00 :00 [facility] Branch omalizumab 2021- No [id number] 150mg U nivers (XOLAIR) 05-28 ity of injection 17:45: 17:09 [place] 150 mg 00 :00 [facility] Branch omalizumab 2021- No [id number] 150mg 150 mg, Univers (XOLAIR) 05-28 Subcutaneo ity of injection 17:45: 17:09 [place], ONCE, [place] 150 mg 00 :00 1 dose, On [facility] Branch 05/28/22 at 1245, Routine
Restricte d use approved by: CATRACHITA MERCADO MD. (ALLERGY/I MMUNOLOGY) omalizumab 2021- No [id number] 150mg 150 mg, [facility] (XOLAIR) 05-28 Subcutaneo ity of injection 17:45: 17:10 [place], ONCE, [place] 150 mg 00 :00 1 dose, On [facility] [place] [facility] 05/28/22 at 1245, Routine
Restricte d use approved by: CATRACHITA MERCADO MD. (ALLERGY/I MMUNOLOGY) omalizumab 2021- No [id number] 150mg 150 mg, [facility] (XOLAIR) 05-28 Subcutaneo ity of injection 17:45: 17:10 [place], ONCE, [place] 150 mg 00 :00 1 dose, On [facility] [place] [facility] 05/28/22 at 1245, Routine
Restricte d use approved by: CATRACHITA MERCADO MD. (ALLERGY/I MMUNOLOGY) omalizumab 2021- No [id number] 150mg U nivers (XOLAIR) 04-30 ity of injection 17:30: 16:42 [place] 150 mg 00 :00 Medical Branch omalizumab 2021- No [id number] 150mg U nivers (XOLAIR) 04-30 ity of injection 17:30: 16:42 [place] 150 mg 00 :00 Medical Branch omalizumab 2021- No [id number] 150mg U nivers (XOLAIR) 04-30 ity of injection 17:30: 16:42 [place] 150 mg 00 :00 Medical Branch omalizumab 2021- No [id number] 150mg 150 mg, Univers (XOLAIR) 04-30 Subcutaneo ity of injection 17:30: 16:42 [place], ONCE, [place] 150 mg 00 :00 1 dose, On Medical [place] [facility] 04/30/22 at 1230, Routine
Restricte d use approved by: CATRACHITA MERCADO MD. (ALLERGY/I MMUNOLOGY) omalizumab 2021- No [id number] 150mg 150 mg, Univers (XOLAIR) 04-30 Subcutaneo ity of injection 17:30: 16:42 [place], ONCE, [place] 150 mg 00 :00 1 dose, On Medical [facility] Branch 04/30/22 at 1230, Routine
Restricte d use approved by: CATRACHITA MERCADO MD. (ALLERGY/I MMUNOLOGY) omalizumab 2021- No [id number] 150mg 150 mg, Univers (XOLAIR) 04-30 08-25 Subcutaneo ity of injection 17:30: 16:42 [place], ONCE, [place] 150 mg 00 :00 1 dose, On [facility] Branch 04/30/22 at 1230, Routine
Restricte d use approved by: CATRACHITA MERCADO MD. (ALLERGY/I MMUNOLOGY) famotidine Yes [id number] 20mg Take 1 U nivers (PEPCID) 20 8-25 tablet by ity of mg tablet 00:00: [place] 00 the Medical morning Branch and 1 tablet in the evening. famotidine 2021-0 Yes [id number] 20mg Take 1 U nivers (PEPCID) 20 8-25 tablet by ity of mg tablet 00:00: mouth [place] 00 the Medical morning Branch and 1 tablet in the evening. famotidine 2021-0 Yes [id number] 20mg Take 1 U nivers (PEPCID) 20 8-25 tablet by ity of mg tablet 00:00: mouth [place] 00 the Medical morning Branch and 1 tablet in the evening. montelukast 2021-0 Yes [id number] 10mg Take 1 Univers 10 mg 8-25 tablet by ity of tablet 00:00: mouth in [place] 00 the Medical morning. Branch famotidine 2021-0 Yes [id number] 20mg Take 1 U nivers (PEPCID) 20 8-25 tablet by ity of mg tablet 00:00: mouth [place] 00 the Medical morning Branch and 1 tablet in the evening. montelukast 2021-0 Yes [id number] 10mg Take 1 Univers 10 mg 8-25 tablet by ity of tablet 00:00: mouth in [place] [address] the Medical morning. Branch famotidine 2021-0 Yes [id number] 20mg Take 1 U nivers (PEPCID) 20 8-25 tablet by ity of mg tablet 00:00: [place] 00 the Medical morning Branch and 1 tablet in the evening. montelukast 2022-0 Yes [id number] 10mg Take 1 [facility] 10 mg 8-25 tablet by ity of tablet 00:00: mouth in [place] 00 the Medical morning. Branch famotidine 2-0 Yes [id number] 20mg Take 1 U nivers (PEPCID) 20 8-25 tablet by ity of mg tablet 00:00: mouth [place] 00 the Medical morning Branch and 1 tablet in the evening. montelukast 2-0 Yes [id number] 10mg Take 1 [facility] 10 mg 8-25 tablet by ity of tablet 00:00: mouth in [place] 00 the Medical morning. Branch famotidine 2021-0 Yes [id number] 20mg Take 1 U nivers (PEPCID) 20 8-25 tablet by ity of mg tablet 00:00: mouth in [facility] s 00 the Medical morning Branch and 1 tablet in the evening. montelukast 2021-0 Yes [id number] 10mg Take 1 [facility] 10 mg 8-25 tablet by ity of tablet 00:00: mouth in [place] 00 the Medical morning. Branch famotidine 2021-0 Yes [id number] 20mg Take 1 U nivers (PEPCID) 20 8-25 tablet by ity of mg tablet 00:00: mouth in [facility] s 00 the Medical morning Branch and 1 tablet in the evening. montelukast 2-0 Yes [id number] 10mg Take 1 [facility] 10 mg 8-25 tablet by ity of tablet 00:00: mouth in [place] 00 the Medical morning. Branch famotidine 2021-0 Yes [id number] 20mg Take 1 U nivers (PEPCID) 20 8-25 tablet by ity of mg tablet 00:00: mouth in [facility] the Medical morning Branch and 1 tablet in the evening. montelukast 2-0 Yes [id number] 10mg Take 1 [facility] 10 mg 8-25 tablet by ity of tablet 00:00: mouth in [place] 00 the Medical morning. Branch famotidine 2-0 Yes [id number] 20mg Take 1 U nivers (PEPCID) 20 8-25 tablet by ity of mg tablet 00:00: mouth in [facility] 00 the Medical morning Branch and 1 tablet in the evening. montelukast 2022-0 Yes [id number] 10mg Take 1 [facility] 10 mg 8-25 tablet by ity of tablet 00:00: mouth in [place] 00 the Medical morning. Branch famotidine 2021-0 Yes [id number] 20mg Take 1 U nivers (PEPCID) 20 8-25 tablet by ity of mg tablet 00:00: mouth [place] 00 the Medical morning Branch and 1 tablet in the evening. montelukast 2021-0 Yes [id number] 10mg Take 1 [facility] 10 mg 8-25 tablet by ity of tablet 00:00: mouth in [place] 00 the Medical morning. Branch famotidine 2021-0 Yes [id number] 20mg Take 1 U nivers (PEPCID) 20 8-25 tablet by ity of mg tablet 00:00: mouth in [facility] 00 the Medical morning Branch and 1 tablet in the evening. montelukast 2021-0 Yes [id number] 10mg Take 1 [facility] 10 mg 8-25 tablet by ity of tablet 00:00: mouth in [place] 00 the Medical morning. Branch famotidine 2021-0 Yes [id number] 20mg Take 1 U nivers (PEPCID) 20 8-25 tablet by ity of mg tablet 00:00: mouth in [facility] 00 the Medical morning Branch and 1 tablet in the evening. montelukast 2021-0 Yes [id number] 10mg Take 1 [facility] 10 mg 8-25 tablet by ity of tablet 00:00: mouth in [place] 00 the Medical morning. Branch famotidine 2021-0 Yes [id number] 20mg Take 1 U nivers (PEPCID) 20 8-25 tablet by ity of mg tablet 00:00: mouth [place] 00 the Medical morning Branch and 1 tablet in the evening. montelukast 2021-0 Yes [id number] 10mg Take 1 [facility] 10 mg 8-25 tablet by ity of tablet 00:00: mouth in [place] 00 the Medical morning. Branch famotidine 2021-0 Yes [id number] 20mg Take 1 U nivers (PEPCID) 20 8-25 tablet by ity of mg tablet 00:00: mouth [place] 00 the Medical morning Branch and 1 tablet in the evening. montelukast 2021-0 Yes [id number] 10mg Take 1 [facility] 10 mg 8-25 tablet by ity of tablet 00:00: mouth in [place] 00 the Medical morning. Branch famotidine 2021-0 Yes [id number] 20mg Take 1 U nivers (PEPCID) 20 8-25 tablet by ity of mg tablet 00:00: mouth [place] 00 the Medical morning Branch and 1 tablet in the evening. montelukast 2-0 Yes [id number] 10mg Take 1 [facility] 10 mg 8-25 tablet by ity of tablet 00:00: mouth in [place] 00 the Medical morning. Branch famotidine 2021-0 Yes [id number] 20mg Take 1 U nivers (PEPCID) 20 8-25 tablet by ity of mg tablet 00:00: mouth in [facility] 00 the Medical morning Branch and 1 tablet in the evening. montelukast 2021-0 Yes [id number] 10mg Take 1 [facility] 10 mg 8-25 tablet by ity of tablet 00:00: mouth in [place] 00 the Medical morning. Branch famotidine 2021-0 Yes [id number] 20mg Take 1 U nivers (PEPCID) 20 8-25 tablet by ity of mg tablet 00:00: mouth in [facility] 00 the Medical morning Branch and 1 tablet in the evening. montelukast 2021-0 Yes [id number] 10mg Take 1 [facility] 10 mg 8-25 tablet by ity of tablet 00:00: mouth in [place] 00 the Medical morning. Branch famotidine 2021-0 Yes [id number] 20mg Take 1 U nivers (PEPCID) 20 8-25 tablet by ity of mg tablet 00:00: mouth in [facility] 00 the Medical morning Branch and 1 tablet in the evening. famotidine 2-0 Yes [id number] 20mg Take 1 U nivers (PEPCID) 20 8-25 tablet by ity of mg tablet 00:00: [place] 00 the Medical morning Branch and 1 tablet in the evening. famotidine 2022-0 Yes [id number] 20mg Take 1 U nivers (PEPCID) 20 8-25 tablet by ity of mg tablet 00:00: [place] 00 the Medical morning Branch and 1 tablet in the evening. famotidine 2-0 Yes [id number] 20mg Take 1 U nivers (PEPCID) 20 8-25 tablet by ity of mg tablet 00:00: [place] 00 the Medical morning Branch and 1 tablet in the evening. famotidine 2022-0 Yes [id number] 20mg Take 1 U nivers (PEPCID) 20 8-25 tablet by ity of mg tablet 00:00: [place] 00 the Medical morning Branch and 1 tablet in the evening. famotidine 2022-0 Yes [id number] 20mg Take 1 U nivers (PEPCID) 20 8-25 tablet by ity of mg tablet 00:00: [place] the Medical morning Branch and 1 tablet in the evening. famotidine 2-0 Yes [id number] 20mg Take 1 U nivers (PEPCID) 20 8-25 tablet by ity of mg tablet 00:00: [place] Medical morning Branch and 1 tablet in the evening. famotidine 2-0 Yes [id number] 20mg Take 1 U nivers (PEPCID) 20 8-25 tablet by ity of mg tablet 00:00: [place] the Medical morning Branch and 1 tablet in the evening. famotidine 2021-0 Yes [id number] 20mg Take 1 U nivers (PEPCID) 20 8-25 tablet by ity of mg tablet 00:00: [place] Medical morning Branch and 1 tablet in the evening. famotidine 2-0 Yes [id number] 20mg Take 1 U nivers (PEPCID) 20 8-25 tablet by ity of mg tablet 00:00: [place] 00 the Medical morning Branch and 1 tablet in the evening. famotidine 2-0 Yes [id number] 20mg Take 1 U nivers (PEPCID) 20 8-25 tablet by ity of mg tablet 00:00: [place] 00 the Medical morning Branch and 1 tablet in the evening. famotidine 2022-0 Yes [id number] 20mg Take 1 U nivers (PEPCID) 20 8-25 tablet by ity of mg tablet 00:00: [place] 00 the Medical morning Branch and 1 tablet in the evening. famotidine 2022-0 Yes [id number] 20mg Take 1 U nivers (PEPCID) 20 8-25 tablet by ity of mg tablet 00:00: [place] 00 the Medical morning Branch and 1 tablet in the evening. famotidine 2-0 Yes [id number] 20mg Take 1 U nivers (PEPCID) 20 8-25 tablet by ity of mg tablet 00:00: [place] 00 the Medical morning Branch and 1 tablet in the evening. famotidine 2-0 Yes [id number] 20mg Take 1 U nivers (PEPCID) 20 8-25 tablet by ity of mg tablet 00:00: [place] the Medical morning Branch and 1 tablet in the evening. famotidine 2-0 Yes [id number] 20mg Take 1 U nivers (PEPCID) 20 8-25 tablet by ity of mg tablet 00:00: [place] the Medical morning Branch and 1 tablet in the evening. famotidine 2-0 Yes [id number] 20mg Take 1 U nivers (PEPCID) 20 8-25 tablet by ity of mg tablet 00:00: [place] the Medical morning Branch and 1 tablet in the evening. famotidine 2-0 Yes [id number] 20mg Take 1 U nivers (PEPCID) 20 8-25 tablet by ity of mg tablet 00:00: [place] the Medical morning Branch and 1 tablet in the evening. famotidine 2-0 Yes [id number] 20mg Take 1 U nivers (PEPCID) 20 8-25 tablet by ity of mg tablet 00:00: [place] 00 the Medical morning Branch and 1 tablet in the evening. famotidine 2-0 Yes [id number] 20mg Take 1 U nivers (PEPCID) 20 8-25 tablet by ity of mg tablet 00:00: [place] 00 the Medical morning Branch and 1 tablet in the evening. famotidine 2022-0 Yes [id number] 20mg Take 1 U nivers (PEPCID) 20 8-25 tablet by ity of mg tablet 00:00: [place] 00 the Medical morning Branch and 1 tablet in the evening. famotidine 2022-0 Yes [id number] 20mg Take 1 U nivers (PEPCID) 20 8-25 tablet by ity of mg tablet 00:00: [place] 00 the Medical morning Branch and 1 tablet in the evening. famotidine 2022- No [id number] 20mg Take 1 Univers (PEPCID) 20 8-25 - tablet by it y of mg tablet 00:00: 00:00 mouth in [place] 00 :00 the Medical morning Branch and 1 tablet in the evening. famotidine 2022- No [id number] 20mg Take 1 [facility] (PEPCID) 20 8-25 - tablet by it y of mg tablet 00:00: 00:00 mouth in [place] 00 :00 the Medical morning Branch and 1 tablet in the evening. famotidine 2022- No [id number] 20mg Take 1 [facility] (PEPCID) 20 8-28 02- tablet by it y of mg tablet 00:00: 00:00 mouth in [place] 00 :00 the Medical morning Branch and 1 tablet in the evening. montelukast 2021-2022- No [id number] 10mg Take 1 [facility] 10 mg 8-25 -06 tablet by ity of tablet 00:00: 00:00 mouth in [place] 00 :00 the Medical morning. Branch montelukast 2021-2022- No [id number] 10mg Take 1 [facility] 10 mg 8-25 -06 tablet by ity of tablet 00:00: 00:00 mouth in [place] 00 :00 the Medical morning. Branch montelukast 2022- No [id number] 10mg Take 1 [facility] 10 mg 8-25 -06 tablet by ity of tablet 00:00: 00:00 mouth in [place] 00 :00 the Medical morning. Branch cetirizine 2021-2022- No [id number] 10mg Take 1 [facility] 10 mg 7-28 -25 tablet by ity of tablet 00:00: 05:59 mouth in [place] 00 :00 the Medical morning Branch and 1 tablet in the evening. Do all this for 180 days. cetirizine 2021-0 2022- No [id number] 10mg Take 1 [facility] 10 mg 7-28 -25 tablet by ity of tablet 00:00: 05:59 mouth in [place] 00 :00 the Medical morning Branch and 1 tablet in the evening. Do all this for 180 days. cetirizine 2021-0 2022- No [id number] 10mg Take 1 [facility] 10 mg 7-28 01-25 tablet by ity of tablet 00:00: 05:59 mouth in [place] 00 :00 the Medical morning Branch and 1 tablet in the evening. Do all this for 180 days. cetirizine 2021-0 2022- No [id number] 10mg Take 1 [facility] 10 mg 7-28 01-25 tablet by ity of tablet 00:00: 05:59 mouth in [place] 00 :00 the [facility] morning Branch and 1 tablet in the evening. Do all this for 180 days. cetirizine 2021-2022- No [id number] 10mg Take 1 [facility] 10 mg 7-28 01-25 tablet by ity of tablet 00:00: 05:59 mouth in [place] 00 :00 the Medical morning Branch and 1 tablet in the evening. Do all this for 180 days. cetirizine 2021-2022- No [id number] 10mg Take 1 [facility] 10 mg 7-28 -25 tablet by ity of tablet 00:00: 05:59 mouth in [place] 00 :00 the [facility] and 1 tablet in the evening. Do all this for 180 days. cetirizine 2021-2022- No [id number] 10mg Take 1 [facility] 10 mg 7-28 -25 tablet by ity of tablet 00:00: 05:59 mouth in [place] 00 :00 the [facility] and 1 tablet in the evening. Do all this for 180 days. cetirizine 2021-2022- No [id number] 10mg Take 1 [facility] 10 mg 7-28 -25 tablet by ity of tablet 00:00: 05:59 mouth in [place] 00 :00 the [facility] morning Branch and 1 tablet in the evening. Do all this for 180 days. cetirizine 2021-0 2022- No [id number] 10mg Take 1 [facility] 10 mg 7-28 01-25 tablet by ity of tablet 00:00: 05:59 mouth in [place] 00 :00 the [facility] morning Branch and 1 tablet in the evening. Do all this for 180 days. cetirizine 2021-2022- No [id number] 10mg Take 1 [facility] 10 mg 7-28 01-25 tablet by ity of tablet 00:00: 05:59 mouth in [place] 00 :00 the [facility] morning [place] and 1 tablet in the evening. Do all this for 180 days. cetirizine 2022- No [id number] 10mg Take 1 [facility] 10 mg 7-28 -25 tablet by ity of tablet 00:00: 05:59 mouth in [place] 00 :00 the Medical morning Branch and 1 tablet in the evening. Do all this for 180 days. cetirizine 2022- No [id number] 10mg Take 1 [facility] 10 mg 7-28 -25 tablet by ity of tablet 00:00: 05:59 mouth in [place] 00 :00 the Medical morning Branch and 1 tablet in the evening. Do all this for 180 days. cetirizine 2022- No [id number] 10mg Take 1 [facility] 10 mg 7-28 -25 tablet by ity of tablet 00:00: 05:59 mouth in [place] 00 :00 the Medical morning Branch and 1 tablet in the evening. Do all this for 180 days. cetirizine No [id number] 10mg Take 1 [facility] 10 mg 7-28 -25 tablet by ity of tablet 00:00: 05:59 mouth in [place] 00 :00 the Medical morning Branch and 1 tablet in the evening. Do all this for 180 days. cetirizine No [id number] 10mg Take 1 [facility] 10 mg 7-03 10-25 tablet by ity of tablet 00:00: 05:59 mouth in [place] 00 :00 the Medical morning Branch and 1 tablet in the evening. Do all this for 180 days. cetirizine 2022- No [id number] 10mg Take 1 [facility] 10 mg 7-28 -25 tablet by ity of tablet 00:00: 05:59 mouth in [place] 00 :00 the Medical morning Branch and 1 tablet in the evening. Do all this for 180 days. cetirizine 2021-2022- No [id number] 10mg Take 1 [facility] 10 mg 7-28 -25 tablet by ity of tablet 00:00: 05:59 mouth in [place] 00 :00 the Medical morning Branch and 1 tablet in the evening. Do all this for 180 days. cetirizine 2022- No [id number] 10mg Take 1 [facility] 10 mg 7-28 -25 tablet by ity of tablet 00:00: 05:59 mouth in [place] 00 :00 the Medical morning Branch and 1 tablet in the evening. Do all this for 180 days. cetirizine 2021-2022- No [id number] 10mg Take 1 [facility] 10 mg 7-28 -25 tablet by ity of tablet 00:00: 05:59 mouth in [place] 00 :00 the Medical morning Branch and 1 tablet in the evening. Do all this for 180 days. cetirizine 2021-0 2022- No [id number] 10mg Take 1 [facility] 10 mg 7-28 -25 tablet by ity of tablet 00:00: 05:59 mouth in [place] 00 :00 the Medical morning Branch and 1 tablet in the evening. Do all this for 180 days. cetirizine 2021-0 2022- No [id number] 10mg Take 1 [facility] 10 mg 7-28 -25 tablet by ity of tablet 00:00: 05:59 mouth in [place] 00 :00 the Medical morning Branch and 1 tablet in the evening. Do all this for 180 days. cetirizine 2021-0 2022- No [id number] 10mg Take 1 [facility] 10 mg 7-28 -25 tablet by ity of tablet 00:00: 05:59 mouth in [place] 00 :00 the Medical morning Branch and 1 tablet in the evening. Do all this for 180 days. omalizumab 2022-0 Yes 450mg inject 3 [facility] [place] (XOLAIR) 5-06 Syringes ity of 150 mg/mL 00:00: under the [place] [facility] [place] 00 skin every Medical 4 (four) Branch weeks. omalizumab 2022-0 Yes 450mg inject 3 [facility] [place] (XOLAIR) 5-06 Syringes ity of injection 00:00: under the [place] 00 skin every Medical 4 (four) Branch weeks. omalizumab 2022-0 Yes 450mg inject 3 [facility] [place] (XOLAIR) 5-06 Syringes ity of injection 00:00: under the [place] 00 skin every Medical 4 (four) Branch weeks. omalizumab 2022-0 Yes 450mg inject 3 [facility] [place] (XOLAIR) 5-06 Syringes ity of injection 00:00: under the [place] 00 skin every Medical 4 (four) Branch weeks. omalizumab 2022-0 Yes 450mg inject 3 [facility] [place] (XOLAIR) 5-06 Syringes ity of injection 00:00: under the [place] 00 skin every Medical 4 (four) Branch weeks. omalizumab 2022-0 Yes 450mg inject 3 [facility] [place] (XOLAIR) 5-06 Syringes ity of injection 00:00: under the [place] 00 skin every Medical 4 (four) Branch weeks. omalizumab 2022-0 Yes 450mg inject 3 [facility] [place] (XOLAIR) 5-06 Syringes ity of injection 00:00: under the [place] 00 skin every Medical 4 (four) Branch weeks. omalizumab 2022-0 Yes 450mg inject 3 [facility] [place] (XOLAIR) 5-06 Syringes ity of injection 00:00: under the [place] 00 skin every Medical 4 (four) Branch weeks. omalizumab 2022-0 Yes 450mg inject 3 [facility] [place] (XOLAIR) 5-06 Syringes ity of injection 00:00: under the [place] 00 skin every Medical 4 (four) Branch weeks. omalizumab 2022-0 Yes 450mg inject 3 [facility] [place] (XOLAIR) 5-06 Syringes ity of injection 00:00: under the [place] 00 skin every Medical 4 (four) Branch weeks. omalizumab 2022-0 2022- No 450mg inject 3 U nivers (XOLAIR) 5- 12-09 Syringes ity of injection 00:00: 00:00 under the [place] 00 :00 skin every Medical 4 (four) Branch weeks. omalizumab 2022-0 2022- No 450mg inject 3 U n[facility] (XOLAIR) 5-06 12-09 Syringes ity of injection 00:00: 00:00 under the [place] 00 :00 skin every Medical 4 (four) Branch weeks. famotidine 2021-0 2022- No [id number] 20mg Take 1 [facility] (PEPCID) 20 01-09 08-25 tablet by it y of mg tablet 00:00: 00:00 mouth [place] 00 :[place] (two) Medical times Branch daily. montelukast 2021- No [id number] 10mg Take 1 [facility] 10 mg 5-06 08-25 tablet by ity of tablet 00:00: 00:00 mouth [place] 00 :00 daily. Medical Branch ondansetron 0 Yes [id number] 4mg Take 1 [facility] 4 mg 3-19 tablet by ity of disintegrat 00:00: mouth [place] ing tablet 00 every 8 Medica l (eight) Branch hours as needed for Nausea and Vomiting (N/V). ondansetron Yes [id number] 4mg Take 1 [facility] 4 mg 3-19 tablet by ity of disintegrat 00:00: mouth [place] ing tablet 00 every 8 Medica l (eight) Branch hours as needed for Nausea and Vomiting (N/V). ondansetron Yes [id number] 4mg Take 1 [facility] 4 mg 3-19 tablet by ity of disintegrat 00:00: mouth [place] ing tablet 00 every 8 Medica l (eight) Branch hours as needed for Nausea and Vomiting (N/V). ondansetron Yes [id number] 4mg Take 1 [facility] 4 mg 3-19 tablet by ity of disintegrat 00:00: mouth [place] ing tablet 00 every 8 Medica l (eight) Branch hours as needed for Nausea and Vomiting (N/V). ondansetron Yes [id number] 4mg Take 1 [facility] 4 mg 3-19 tablet by ity of disintegrat 00:00: mouth [place] ing tablet 00 every 8 Medica l (eight) Branch hours as needed for Nausea and Vomiting (N/V). ondansetron Yes [id number] 4mg Take 1 [facility] 4 mg 3-19 tablet by ity of disintegrat 00:00: mouth [place] ing tablet 00 every 8 Medica l (eight) Branch hours as needed for Nausea and Vomiting (N/V). ondansetron 2021-0 Yes [id number] 4mg Take 1 [facility] 4 mg 3-19 tablet by ity of disintegrat 00:00: mouth [place] ing tablet 00 every 8 Medica l (eight) Branch hours as needed for Nausea and Vomiting (N/V). ondansetron Yes [id number] 4mg Take 1 [facility] 4 mg 3-19 tablet by ity of disintegrat 00:00: mouth [place] ing tablet 00 every 8 Medica l (eight) Branch hours as needed for Nausea and Vomiting (N/V). ondansetron 2-0 Yes [id number] 4mg Take 1 [facility] 4 mg 3-19 tablet by ity of disintegrat 00:00: mouth [place] ing tablet 00 every 8 Medica l (eight) Branch hours as needed for Nausea and Vomiting (N/V). ondansetron 2-0 Yes [id number] 4mg Take 1 [facility] 4 mg 3-19 tablet by ity of disintegrat 00:00: mouth [place] ing tablet 00 every 8 Medica l (eight) Branch hours as needed for Nausea and Vomiting (N/V). ondansetron 2-0 Yes [id number] 4mg Take 1 [facility] 4 mg 3-19 tablet by ity of disintegrat 00:00: mouth [place] ing tablet 00 every 8 Medica l (eight) Branch hours as needed for Nausea and Vomiting (N/V). ondansetron 2-0 Yes [id number] 4mg Take 1 [facility] 4 mg 3-19 tablet by ity of disintegrat 00:00: mouth [place] ing tablet 00 every 8 Medica l (eight) Branch hours as needed for Nausea and Vomiting (N/V). ondansetron 2-0 Yes [id number] 4mg Take 1 [facility] 4 mg 3-19 tablet by ity of disintegrat 00:00: mouth [place] ing tablet 00 every 8 Medica l (eight) Branch hours as needed for Nausea and Vomiting (N/V). ondansetron 2-0 Yes [id number] 4mg Take 1 [facility] 4 mg 3-19 tablet by ity of disintegrat 00:00: mouth [place] ing tablet 00 every 8 Medica l (eight) Branch hours as needed for Nausea and Vomiting (N/V). ondansetron 2-0 Yes [id number] 4mg Take 1 [facility] 4 mg 3-19 tablet by ity of disintegrat 00:00: mouth [place] ing tablet 00 every 8 Medica l (eight) Branch hours as needed for Nausea and Vomiting (N/V). ondansetron 2022-0 Yes [id number] 4mg Take 1 [facility] 4 mg 3-19 tablet by ity of disintegrat 00:00: mouth [place] ing tablet 00 every 8 Medica l (eight) Branch hours as needed for Nausea and Vomiting (N/V). ondansetron 2-0 Yes [id number] 4mg Take 1 [facility] 4 mg 3-19 tablet by ity of disintegrat 00:00: mouth [place] ing tablet 00 every 8 Medica l (eight) Branch hours as needed for Nausea and Vomiting (N/V). ondansetron 2-0 Yes [id number] 4mg Take 1 [facility] 4 mg 3-19 tablet by ity of disintegrat 00:00: mouth [place] ing tablet 00 every 8 Medica l (eight) Branch hours as needed for Nausea and Vomiting (N/V). ondansetron 2-0 Yes [id number] 4mg Take 1 [facility] 4 mg 3-19 tablet by ity of disintegrat 00:00: mouth [place] ing tablet 00 every 8 Medica l (eight) Branch hours as needed for Nausea and Vomiting (N/V). ondansetron 2-0 Yes [id number] 4mg Take 1 [facility] 4 mg 3-19 tablet by ity of disintegrat 00:00: mouth [place] ing tablet 00 every 8 Medica l (eight) Branch hours as needed for Nausea and Vomiting (N/V). ondansetron 2-0 Yes [id number] 4mg Take 1 [facility] 4 mg 3-19 tablet by ity of disintegrat 00:00: mouth [place] ing tablet 00 every 8 Medica l (eight) Branch hours as needed for Nausea and Vomiting (N/V). ondansetron 2-0 Yes [id number] 4mg Take 1 [facility] 4 mg 3-19 tablet by ity of disintegrat 00:00: mouth [place] ing tablet 00 every 8 Medica l (eight) Branch hours as needed for Nausea and Vomiting (N/V). ondansetron 2-0 Yes [id number] 4mg Take 1 [facility] 4 mg 3-19 tablet by ity of disintegrat 00:00: mouth [place] ing tablet 00 every 8 Medica l (eight) Branch hours as needed for Nausea and Vomiting (N/V). ondansetron 2022-0 Yes [id number] 4mg Take 1 [facility] 4 mg 3-19 tablet by ity of disintegrat 00:00: mouth [place] ing tablet 00 every 8 Medica l (eight) Branch hours as needed for Nausea and Vomiting (N/V). ondansetron 2022-0 Yes [id number] 4mg Take 1 [facility] 4 mg 3-19 tablet by ity of disintegrat 00:00: mouth [place] ing tablet 00 every 8 Medica l (eight) Branch hours as needed for Nausea and Vomiting (N/V). ondansetron 2-0 Yes [id number] 4mg Take 1 [facility] 4 mg 3-19 tablet by ity of disintegrat 00:00: mouth [place] ing tablet 00 every 8 Medica l (eight) Branch hours as needed for Nausea and Vomiting (N/V). ondansetron 2-0 Yes [id number] 4mg Take 1 [facility] 4 mg 3-19 tablet by ity of disintegrat 00:00: mouth [place] ing tablet 00 every 8 Medica l (eight) Branch hours as needed for Nausea and Vomiting (N/V). ondansetron 2-0 Yes [id number] 4mg Take 1 [facility] 4 mg 3-19 tablet by ity of disintegrat 00:00: mouth [place] ing tablet 00 every 8 Medica l (eight) Branch hours as needed for Nausea and Vomiting (N/V). ondansetron 2021-0 Yes [id number] 4mg Take 1 [facility] 4 mg 3-19 tablet by ity of disintegrat 00:00: mouth [place] ing tablet 00 every 8 Medica l (eight) Branch hours as needed for Nausea and Vomiting (N/V). ondansetron 2-0 Yes [id number] 4mg Take 1 [facility] 4 mg 3-19 tablet by ity of disintegrat 00:00: mouth [place] ing tablet 00 every 8 Medica l (eight) Branch hours as needed for Nausea and Vomiting (N/V). ondansetron 2-0 Yes [id number] 4mg Take 1 [facility] 4 mg 3-19 tablet by ity of disintegrat 00:00: mouth [place] ing tablet 00 every 8 Medica l (eight) Branch hours as needed for Nausea and Vomiting (N/V). ondansetron 2-0 Yes [id number] 4mg Take 1 [facility] 4 mg 3-19 tablet by ity of disintegrat 00:00: mouth [place] ing tablet 00 every 8 Medica l (eight) Branch hours as needed for Nausea and Vomiting (N/V). ondansetron 2-0 Yes [id number] 4mg Take 1 [facility] 4 mg 3-19 tablet by ity of disintegrat 00:00: mouth [place] ing tablet 00 every 8 Medica l (eight) Branch hours as needed for Nausea and Vomiting (N/V). ondansetron 2-0 Yes [id number] 4mg Take 1 [facility] 4 mg 3-19 tablet by ity of disintegrat 00:00: mouth [place] ing tablet 00 every 8 Medica l (eight) Branch hours as needed for Nausea and Vomiting (N/V). ondansetron 2-0 Yes [id number] 4mg Take 1 [facility] 4 mg 3-19 tablet by ity of disintegrat 00:00: mouth [place] ing tablet 00 every 8 Medica l (eight) Branch hours as needed for Nausea and Vomiting (N/V). ondansetron 2-0 Yes [id number] 4mg Take 1 [facility] 4 mg 3-19 tablet by ity of disintegrat 00:00: mouth [place] ing tablet 00 every 8 Medica l (eight) Branch hours as needed for Nausea and Vomiting (N/V). ondansetron 2-0 Yes [id number] 4mg Take 1 [facility] 4 mg 3-19 tablet by ity of disintegrat 00:00: mouth [place] ing tablet 00 every 8 Medica l (eight) Branch hours as needed for Nausea and Vomiting (N/V). ondansetron 2-0 Yes [id number] 4mg Take 1 [facility] 4 mg 3-19 tablet by ity of disintegrat 00:00: mouth [place] ing tablet 00 every 8 Medica l (eight) Branch hours as needed for Nausea and Vomiting (N/V). ondansetron 2-0 Yes [id number] 4mg Take 1 [facility] 4 mg 3-19 tablet by ity of disintegrat 00:00: mouth [place] ing tablet 00 every 8 Medica l (eight) Branch hours as needed for Nausea and Vomiting (N/V). ondansetron 2-0 Yes [id number] 4mg Take 1 [facility] 4 mg 3-19 tablet by ity of disintegrat 00:00: mouth [place] ing tablet 00 every 8 Medica l (eight) Branch hours as needed for Nausea and Vomiting (N/V). ondansetron 2022-0 Yes [id number] 4mg Take 1 [facility] 4 mg 3-19 tablet by ity of disintegrat 00:00: mouth [place] ing tablet 00 every 8 Medica l (eight) Branch hours as needed for Nausea and Vomiting (N/V). ondansetron 2022-0 Yes [id number] 4mg Take 1 [facility] 4 mg 3-19 tablet by ity of disintegrat 00:00: mouth [place] ing tablet 00 every 8 Medica l (eight) Branch hours as needed for Nausea and Vomiting (N/V). ondansetron 2022-0 Yes [id number] 4mg Take 1 [facility] 4 mg 3-19 tablet by ity of disintegrat 00:00: mouth [place] ing tablet 00 every 8 Medica l (eight) Branch hours as needed for Nausea and Vomiting (N/V). ondansetron 2022-0 Yes [id number] 4mg Take 1 [facility] 4 mg 3-19 tablet by ity of disintegrat 00:00: mouth [place] ing tablet 00 every 8 Medica l (eight) Branch hours as needed for Nausea and Vomiting (N/V). ondansetron 2022-0 Yes [id number] 4mg Take 1 [facility] 4 mg 3-19 [...] it y of mg capsule 14:50: (four) [place] 58 times Medical daily. Branch dicyclomine 2021-0 Yes 10mg Take 10 mg [facility] (BENTYL) 10 2-10 by mouth 4 it y of mg capsule 14:50: (four) [place] 58 times Medical daily. Branch azelastine 2021-0 Yes [id number] 1{spray Use 1 [facility] 137 mcg 1-22 } [place] in ity of (0.1 %) 00:00: each [place] nasal spray 00 nostril 2 Med ical (two) Branch times daily. Use in each nostril as directed fluticasone 2021-0 Yes [id number] 1{spray Use 1 [facility] propionate 1-22 } [place] in ity o f 50 00:00: each [place] mcg/actuati 00 nostril Medic al on nasal daily. Branch spray azelastine 2021-0 Yes [id number] 1{spray Use 1 [facility] 137 mcg 1-22 } [place] in ity of (0.1 %) 00:00: each [place] nasal spray 00 nostril 2 Med ical (two) Branch times daily. Use in each nostril as directed fluticasone 2021-0 Yes [id number] 1{spray Use 1 [facility] propionate 1-22 } [place] in ity o f 50 00:00: each [place] mcg/actuati 00 nostril Medic al on nasal daily. Branch spray azelastine 2021-0 Yes [id number] 1{spray Use 1 [facility] 137 mcg 1-22 } [place] in ity of (0.1 %) 00:00: each [place] nasal spray 00 nostril 2 Med ical (two) Branch times daily. Use in each nostril as directed fluticasone 2021-0 Yes [id number] 1{spray Use 1 [facility] propionate 1-22 } [place] in ity o f 50 00:00: each [place] mcg/actuati 00 nostril Medic al on nasal daily. Branch spray azelastine 2021-0 Yes [id number] 1{spray Use 1 [facility] 137 mcg 1-22 } [place] in ity of (0.1 %) 00:00: each [place] nasal spray 00 nostril 2 Med ical (two) Branch times daily. Use in each nostril as directed fluticasone 2021-0 Yes [id number] 1{spray Use 1 [facility] propionate 1-22 } [place] in ity o f 50 00:00: each [place] mcg/actuati 00 nostril Medic al on nasal daily. Branch spray azelastine 2021-0 Yes [id number] 1{spray Use 1 [facility] 137 mcg 1-22 } [place] in ity of (0.1 %) 00:00: each [place] nasal spray 00 nostril 2 Med ical (two) Branch times daily. Use in each nostril as directed fluticasone 2021-0 Yes [id number] 1{spray Use 1 [facility] propionate 1-22 } [place] in ity o f 50 00:00: each [place] mcg/actuati 00 nostril Medic al on nasal daily. Branch spray azelastine 2021-0 Yes [id number] 1{spray Use 1 [facility] 137 mcg 1-22 } [place] in ity of (0.1 %) 00:00: each [place] nasal spray 00 nostril 2 Med ical (two) Branch times daily. Use in each nostril as directed fluticasone 2021-0 Yes [id number] 1{spray Use 1 [facility] propionate 1-22 } [place] in ity o f 50 00:00: each [place] mcg/actuati 00 nostril Medic al on nasal daily. Branch spray azelastine 2021-0 Yes [id number] 1{spray Use 1 [facility] 137 mcg 1-22 } [place] in ity of (0.1 %) 00:00: each [place] nasal spray 00 nostril 2 Med ical (two) Branch times daily. Use in each nostril as directed fluticasone 2021-0 Yes [id number] 1{spray Use 1 [facility] propionate 1-22 } [place] in ity o f 50 00:00: each [place] mcg/actuati 00 nostril Medic al on nasal daily. Branch spray azelastine 2021-0 Yes [id number] 1{spray Use 1 [facility] 137 mcg 1-22 } [place] in ity of (0.1 %) 00:00: each [place] nasal spray 00 nostril 2 Med ical (two) Branch times daily. Use in each nostril as directed fluticasone 2-0 Yes [id number] 1{spray Use 1 [facility] propionate 1-22 } [place] in ity o f 50 00:00: each [place] mcg/actuati 00 nostril Medic al on nasal daily. Branch spray azelastine 2021-0 Yes [id number] 1{spray Use 1 [facility] 137 mcg 1-22 } [place] in ity of (0.1 %) 00:00: each [place] nasal spray 00 nostril 2 Med ical (two) Branch times daily. Use in each nostril as directed fluticasone 2021-0 Yes [id number] 1{spray Use 1 [facility] propionate 1-22 } [place] in ity o f 50 00:00: each [place] mcg/actuati 00 nostril Medic al on nasal daily. Branch spray azelastine 2021-0 Yes [id number] 1{spray Use 1 [facility] 137 mcg 1-22 } [place] in ity of (0.1 %) 00:00: each [place] nasal spray 00 nostril 2 Med ical (two) Branch times daily. Use in each nostril as directed fluticasone 2021-0 Yes [id number] 1{spray Use 1 [facility] propionate 1-22 } [place] in ity o f 50 00:00: each [place] mcg/actuati 00 nostril Medic al on nasal daily. Branch spray azelastine 2021-0 Yes [id number] 1{spray Use 1 [facility] 137 mcg 1-22 } [place] in ity of (0.1 %) 00:00: each [place] nasal spray 00 nostril 2 Med ical (two) Branch times daily. Use in each nostril as directed fluticasone 2021-0 Yes [id number] 1{spray Use 1 [facility] propionate 1-22 } [place] in ity o f 50 00:00: each [place] mcg/actuati 00 nostril Medic al on nasal daily. Branch spray azelastine 2021-0 Yes [id number] 1{spray Use 1 [facility] 137 mcg 1-22 } [place] in ity of (0.1 %) 00:00: each [place] nasal spray 00 nostril 2 Med ical (two) Branch times daily. Use in each nostril as directed fluticasone 2021-0 Yes [id number] 1{spray Use 1 [facility] propionate 1-22 } [place] in ity o f 50 00:00: each [place] mcg/actuati 00 nostril Medic al on nasal daily. Branch spray azelastine 2021-0 Yes [id number] 1{spray Use 1 [facility] 137 mcg 1-22 } [place] in ity of (0.1 %) 00:00: each [place] nasal spray 00 nostril 2 Med ical (two) Branch times daily. Use in each nostril as directed fluticasone 2021-0 Yes [id number] 1{spray Use 1 [facility] propionate 1-22 } [place] in ity o f 50 00:00: each [place] mcg/actuati 00 nostril Medic al on nasal daily. Branch spray azelastine 2021-0 Yes [id number] 1{spray Use 1 [facility] 137 mcg 1-22 } [place] in ity of (0.1 %) 00:00: each [place] nasal spray 00 nostril 2 Med ical (two) Branch times daily. Use in each nostril as directed fluticasone 2021-0 Yes [id number] 1{spray Use 1 [facility] propionate 1-22 } [place] in ity o f 50 00:00: each [place] mcg/actuati 00 nostril Medic al on nasal daily. Branch spray azelastine 2021-0 Yes [id number] 1{spray Use 1 [facility] 137 mcg 1-22 } [place] in ity of (0.1 %) 00:00: each [place] nasal spray 00 nostril 2 Med ical (two) Branch times daily. Use in each nostril as directed fluticasone 2021-0 Yes [id number] 1{spray Use 1 [facility] propionate 1-22 } [place] in ity o f 50 00:00: each [place] mcg/actuati 00 nostril Medic al on nasal daily. Branch spray azelastine 2021-0 Yes [id number] 1{spray Use 1 [facility] 137 mcg 1-22 } [place] in ity of (0.1 %) 00:00: each [place] nasal spray 00 nostril 2 Med ical (two) Branch times daily. Use in each nostril as directed fluticasone 2021-0 Yes [id number] 1{spray Use 1 [facility] propionate 1-22 } [place] in ity o f 50 00:00: each [place] mcg/actuati 00 nostril Medic al on nasal daily. Branch spray azelastine 2021-0 Yes [id number] 1{spray Use 1 [facility] 137 mcg 1-22 } [place] in ity of (0.1 %) 00:00: each [place] nasal spray 00 nostril 2 Med ical (two) Branch times daily. Use in each nostril as directed fluticasone 2-0 Yes [id number] 1{spray Use 1 [facility] propionate 1-22 } [place] in ity o f 50 00:00: each [place] mcg/actuati 00 nostril Medic al on nasal daily. Branch spray azelastine 2021-0 Yes [id number] 1{spray Use 1 [facility] 137 mcg 1-22 } [place] in ity of (0.1 %) 00:00: each [place] nasal spray 00 nostril 2 Med ical (two) Branch times daily. Use in each nostril as directed fluticasone 2-0 Yes [id number] 1{spray Use 1 [facility] propionate 1-22 } [place] in ity o f 50 00:00: each [place] mcg/actuati 00 nostril Medic al on nasal daily. Branch spray azelastine 2021-0 Yes [id number] 1{spray Use 1 [facility] 137 mcg 1-22 } [place] in ity of (0.1 %) 00:00: each [place] nasal spray 00 nostril 2 Med ical (two) Branch times daily. Use in each nostril as directed fluticasone 2021-0 Yes [id number] 1{spray Use 1 [facility] propionate 1-22 } [place] in ity o f 50 00:00: each [place] mcg/actuati 00 nostril Medic al on nasal daily. Branch spray azelastine 2021-0 Yes [id number] 1{spray Use 1 [facility] 137 mcg 1-22 } [place] in ity of (0.1 %) 00:00: each [place] nasal spray 00 nostril 2 Med ical (two) Branch times daily. Use in each nostril as directed fluticasone 2-0 Yes [id number] 1{spray Use 1 [facility] propionate 1-22 } [place] in ity o f 50 00:00: each [place] mcg/actuati 00 nostril Medic al on nasal daily. Branch spray azelastine 202-0 Yes [id number] 1{spray Use 1 [facility] 137 mcg 1-22 } [place] [facility] of (0.1 %) 00:00: each [place] nasal spray 00 nostril 2 Med ical (two) Branch times daily. Use in each nostril as directed fluticasone 2-0 Yes [id number] 1{spray Use 1 [facility] propionate 1-22 } [place] in ity o f 50 00:00: each [place] mcg/actuati 00 nostril Medic al on nasal daily. Branch spray azelastine 2021-0 Yes [id number] 1{spray Use 1 [facility] 137 mcg 1-22 } [place] ity of (0.1 %) 00:00: each [place] nasal spray 00 nostril 2 Med ical (two) Branch times daily. Use in each nostril as directed fluticasone 2021-0 Yes [id number] 1{spray Use 1 [facility] propionate 1-22 } [place] in ity o f 50 00:00: each [place] mcg/actuati 00 nostril Medic al on nasal daily. Branch spray azelastine 2021-0 Yes [id number] 1{spray Use 1 [facility] 137 mcg 1-22 } [place] [facility] ity of (0.1 %) 00:00: each [place] nasal spray 00 nostril 2 Med ical (two) Branch times daily. Use in each nostril as directed fluticasone 2021-0 Yes [id number] 1{spray Use 1 [facility] propionate 1-22 } [place] in ity o f 50 00:00: each [place] mcg/actuati 00 nostril Medic al on nasal daily. Branch spray azelastine 2021-0 Yes [id number] 1{spray Use 1 [facility] 137 mcg 1-22 } [place] [facility]y of (0.1 %) 00:00: each [place] nasal spray 00 nostril 2 Med ical (two) Branch times daily. Use in each nostril as directed fluticasone 2021-0 Yes [id number] 1{spray Use 1 [facility] propionate 1-22 } [place] in ity o f 50 00:00: each [place] mcg/actuati 00 nostril Medic al on nasal daily. Branch spray azelastine 2021-0 Yes [id number] 1{spray Use 1 [facility] 137 mcg 1-22 } [place] in [facility]y of (0.1 %) 00:00: each [place] nasal spray 00 nostril 2 Med ical (two) Branch times daily. Use in each nostril as directed fluticasone 2021-0 Yes [id number] 1{spray Use 1 [facility] propionate 1-22 } [place] in ity o f 50 00:00: each [place] mcg/actuati 00 nostril Medic al on nasal daily. Branch spray azelastine 2021-0 Yes [id number] 1{spray Use 1 [facility] 137 mcg 1-22 } [place] in ity of (0.1 %) 00:00: each [place] nasal spray 00 nostril 2 Med ical (two) Branch times daily. Use in each nostril as directed fluticasone 2021-0 Yes [id number] 1{spray Use 1 [facility] propionate 1-22 } [place] in ity o f 50 00:00: each [place] mcg/actuati 00 nostril Medic al on nasal daily. Branch spray azelastine 2021-0 Yes [id number] 1{spray Use 1 [facility] 137 mcg 1-22 } [place] in ity of (0.1 %) 00:00: each [place] nasal spray 00 nostril 2 Med ical (two) Branch times daily. Use in each nostril as directed fluticasone 2021-0 Yes [id number] 1{spray Use 1 [facility] propionate 1-22 } [place] in ity o f 50 00:00: each [place] mcg/actuati 00 nostril Medic al on nasal daily. Branch spray azelastine 2021-0 Yes [id number] 1{spray Use 1 [facility] 137 mcg 1-22 } [place] in ity of (0.1 %) 00:00: each [place] nasal spray 00 nostril 2 Med ical (two) Branch times daily. Use in each nostril as directed fluticasone 2021-0 Yes [id number] 1{spray Use 1 [facility] propionate 1-22 } [place] in ity o f 50 00:00: each [place] mcg/actuati 00 nostril Medic al on nasal daily. Branch spray azelastine 2021-0 Yes [id number] 1{spray Use 1 [facility] 137 mcg 1-22 } [place] in ity of (0.1 %) 00:00: each [place] nasal spray 00 nostril 2 Med ical (two) Branch times daily. Use in each nostril as directed fluticasone 2021-0 Yes [id number] 1{spray Use 1 [facility] propionate 1-22 } [place] in ity o f 50 00:00: each [place] mcg/actuati 00 nostril Medic al on nasal daily. Branch spray azelastine 2021-0 Yes [id number] 1{spray Use 1 [facility] 137 mcg 1-22 } [place] in ity of (0.1 %) 00:00: each [place] nasal spray 00 nostril 2 Med ical (two) Branch times daily. Use in each nostril as directed fluticasone 2021-0 Yes [id number] 1{spray Use 1 [facility] propionate 1-22 } [place] in ity o f 50 00:00: each [place] mcg/actuati 00 nostril Medic al on nasal daily. Branch spray azelastine 2021-0 Yes [id number] 1{spray Use 1 [facility] 137 mcg 1-22 } [place] in ity of (0.1 %) 00:00: each [place] nasal spray 00 nostril 2 Med ical (two) Branch times daily. Use in each nostril as directed fluticasone 2021-0 Yes [id number] 1{spray Use 1 [facility] propionate 1-22 } [place] in ity o f 50 00:00: each [place] mcg/actuati 00 nostril Medic al on nasal daily. Branch spray azelastine 2021-0 Yes [id number] 1{spray Use 1 [facility] 137 mcg 1-22 } [place] in ity of (0.1 %) 00:00: each [place] nasal spray 00 nostril 2 Med ical (two) Branch times daily. Use in each nostril as directed fluticasone 2021-0 Yes [id number] 1{spray Use 1 [facility] propionate 1-22 } [place] in ity o f 50 00:00: each [place] mcg/actuati 00 nostril Medic al on nasal daily. Branch spray azelastine 2021-0 Yes [id number] 1{spray Use 1 [facility] 137 mcg 1-22 } [place] in ity of (0.1 %) 00:00: each [place] nasal spray 00 nostril 2 Med ical (two) Branch times daily. Use in each nostril as directed fluticasone 2021-0 Yes [id number] 1{spray Use 1 [facility] propionate 1-22 } [place] in ity o f 50 00:00: each [place] mcg/actuati 00 nostril Medic al on nasal daily. Branch spray azelastine 2021-0 Yes [id number] 1{spray Use 1 [facility] 137 mcg 1-22 } [place] in ity of (0.1 %) 00:00: each [place] nasal spray 00 nostril 2 Med ical (two) Branch times daily. Use in each nostril as directed fluticasone 2-0 Yes [id number] 1{spray Use 1 [facility] propionate 1-22 } [place] in ity o f 50 00:00: each [place] mcg/actuati 00 nostril Medic al on nasal daily. Branch spray azelastine 2022-0 Yes [id number] 1{spray Use 1 [facility] 137 mcg 1-22 } [place] in ity of (0.1 %) 00:00: each [place] nasal spray 00 nostril 2 Med ical (two) Branch times daily. Use in each nostril as directed fluticasone 2-0 Yes [id number] 1{spray Use 1 [facility] propionate 1-22 } [place] in ity o f 50 00:00: each [place] mcg/actuati 00 nostril Medic al on nasal daily. Branch spray azelastine 2021-0 Yes [id number] 1{spray Use 1 [facility] 137 mcg 1-22 } [place] in ity of (0.1 %) 00:00: each [place] nasal spray 00 nostril 2 Med ical (two) Branch times daily. Use in each nostril as directed fluticasone 2-0 Yes [id number] 1{spray Use 1 [facility] propionate 1-22 } [place] in ity o f 50 00:00: each [place] mcg/actuati 00 nostril Medic al on nasal daily. Branch spray azelastine 2021-0 Yes [id number] 1{spray Use 1 [facility] 137 mcg 1-22 } [place] in ity of (0.1 %) 00:00: each [place] nasal spray 00 nostril 2 Med ical (two) Branch times daily. Use in each nostril as directed fluticasone 2-0 Yes [id number] 1{spray Use 1 [facility] propionate 1-22 } [place] in ity o f 50 00:00: each [place] mcg/actuati 00 nostril Medic al on nasal daily. Branch spray azelastine 2022-0 Yes [id number] 1{spray Use 1 [facility] 137 mcg 1-22 } [place] in ity of (0.1 %) 00:00: each [place] nasal spray 00 nostril 2 Med ical (two) Branch times daily. Use in each nostril as directed fluticasone 2022-0 Yes [id number] 1{spray Use 1 [facility] propionate 1-22 } [place] in ity o f 50 00:00: each [place] mcg/actuati 00 nostril Medic al on nasal daily. Branch spray azelastine 2021-0 Yes [id number] 1{spray Use 1 [facility] 137 mcg 1-22 } [place] in ity of (0.1 %) 00:00: each [place] nasal spray 00 nostril 2 Med ical (two) Branch times daily. Use in each nostril as directed fluticasone 2021-0 Yes [id number] 1{spray Use 1 [facility] propionate 1-22 } [place] in ity o f 50 00:00: each [place] mcg/actuati 00 nostril Medic al on nasal daily. Branch spray azelastine 2021-0 Yes [id number] 1{spray Use 1 [facility] 137 mcg 1-22 } [place] in ity of (0.1 %) 00:00: each [place] nasal spray 00 nostril 2 Med ical (two) Branch times daily. Use in each nostril as directed fluticasone 2021-0 Yes [id number] 1{spray Use 1 [facility] propionate 1-22 } [place] in ity o f 50 00:00: each [place] mcg/actuati 00 nostril Medic al on nasal daily. Branch spray azelastine 2021-0 Yes [id number] 1{spray Use 1 [facility] 137 mcg 1-22 } [place] in ity of (0.1 %) 00:00: each [place] nasal spray 00 nostril 2 Med ical (two) Branch times daily. Use in each nostril as directed fluticasone 2021-0 Yes [id number] 1{spray Use 1 [facility] propionate 1-22 } [place] in ity o f 50 00:00: each [place] mcg/actuati 00 nostril Medic al on nasal daily. Branch spray azelastine 2021-0 Yes [id number] 1{spray Use 1 [facility] 137 mcg 1-22 } [place] in ity of (0.1 %) 00:00: each [place] nasal spray 00 nostril 2 Med ical (two) Branch times daily. Use in each nostril as directed fluticasone 2021-0 Yes [id number] 1{spray Use 1 [facility] propionate 1-22 } [place] in ity o f 50 00:00: each [place] mcg/actuati 00 nostril Medic al on nasal daily. Branch spray azelastine 2021-0 Yes [id number] 1{spray Use 1 [facility] 137 mcg 1-22 } [place] in ity of (0.1 %) 00:00: each [place] nasal spray 00 nostril 2 Med ical (two) Branch times daily. Use in each nostril as directed fluticasone 2021-0 Yes [id number] 1{spray Use 1 [facility] propionate 1-22 } [place] in ity o f 50 00:00: each [place] mcg/actuati 00 nostril Medic al on nasal daily. Branch spray azelastine 2021-0 Yes [id number] 1{spray Use 1 [facility] 137 mcg 1-22 } [place] in ity of (0.1 %) 00:00: each [place] nasal spray 00 nostril 2 Med ical (two) Branch times daily. Use in each nostril as directed fluticasone 2021-0 Yes [id number] 1{spray Use 1 [facility] propionate 1-22 } [place] in ity o f 50 00:00: each [place] mcg/actuati 00 nostril Medic al on nasal daily. Branch spray azelastine 2021-0 Yes [id number] 1{spray Use 1 [facility] 137 mcg 1-22 } [place] in ity of (0.1 %) 00:00: each [place] nasal spray 00 nostril 2 Med ical (two) Branch times daily. Use in each nostril as directed fluticasone 2021-0 Yes [id number] 1{spray Use 1 [facility] propionate 1-22 } [place] in ity o f 50 00:00: each [...] 00:00: [place] injection 00 Medical Branch EPINEPHrine 2022-0 Yes [facility] 0.3 mg/0.3 1-03 ity of mL 00:00: [place] injection 00 Medical Branch EPINEPHrine 2022-0 Yes [facility] 0.3 mg/0.3 1-03 ity of mL 00:00: [place] injection 00 Medical Branch EPINEPHrine 2022-0 Yes [facility] 0.3 mg/0.3 1-03 ity of mL 00:00: [place] injection 00 Medical Branch EPINEPHrine 2022-0 2- No [facility] 0.3 mg/0.3 1-03 06-28 ity of mL 00:00: 00:00 [place] injection 00 :00 Medical Branch atorvastati 2021-0 Yes TAKE 1 [facility] ers n 20 mg 7-24 TABLET BY ity of tablet 00:00: [facility] 00 EVERY DAY Medical Branch DIRECTED atorvastati 1-0 Yes TAKE 1 [facility] ers n 20 mg 7-24 TABLET BY ity of tablet 00:00: [facility] 00 EVERY DAY Medical Branch DIRECTED atorvastati 2021-0 Yes TAKE 1 [facility] ers n 20 mg 7-24 TABLET BY ity of tablet 00:00: [facility] 00 EVERY DAY Medical Branch DIRECTED atorvastati 1-0 Yes TAKE 1 [facility] ers n 20 mg 7-24 TABLET BY ity of tablet 00:00: [facility] 00 EVERY DAY Medical Branch DIRECTED atorvastati 1-0 Yes TAKE 1 [facility] ers n 20 mg 7-24 TABLET BY ity of tablet 00:00: [facility] 00 EVERY DAY Medical Branch DIRECTED atorvastati 2021-0 Yes TAKE 1 [facility] ers n 20 mg 7-24 TABLET BY ity of tablet 00:00: [facility] 00 EVERY DAY Medical Branch DIRECTED atorvastati 2021-0 Yes TAKE 1 [facility] ers n 20 mg 7-24 TABLET BY ity of tablet 00:00: [facility] 00 EVERY DAY Medical Branch DIRECTED atorvastati 2021-0 Yes TAKE 1 [facility] ers n 20 mg 7-24 TABLET BY ity of tablet 00:00: [facility] 00 EVERY DAY Medical Branch DIRECTED atorvastati 2021-0 Yes TAKE 1 [facility] ers n 20 mg 7-24 TABLET BY ity of tablet 00:00: [facility] 00 EVERY DAY Medical Branch DIRECTED atorvastati 2021-0 Yes TAKE 1 [facility] ers n 20 mg 7-24 TABLET BY ity of tablet 00:00: MOUTH 00 EVERY DAY Medical Branch DIRECTED atorvastati 2021-0 Yes TAKE 1 [facility] ers n 20 mg 7-24 TABLET BY ity of tablet 00:00: MOUTH 00 EVERY DAY Medical Branch DIRECTED atorvastati 2021-0 Yes TAKE 1 [facility] ers n 20 mg 7-24 TABLET BY ity of tablet 00:00: MOUTH 00 EVERY DAY Medical Branch DIRECTED atorvastati 2021-0 Yes TAKE 1 [facility] ers n 20 mg 7-24 TABLET BY ity of tablet 00:00: MOUTH 00 EVERY DAY Medical Branch DIRECTED atorvastati 2021-0 Yes TAKE 1 [facility] ers n 20 mg 7-24 TABLET BY ity of tablet 00:00: MOUTH 00 EVERY DAY Medical Branch DIRECTED atorvastati 2021-0 Yes TAKE 1 [facility] ers n 20 mg 7-24 TABLET BY ity of tablet 00:00: MOUTH 00 EVERY DAY Medical Branch DIRECTED atorvastati 2021-0 Yes TAKE 1 [facility] ers n 20 mg 7-24 TABLET BY ity of tablet 00:00: MOUTH 00 EVERY DAY Medical Branch DIRECTED atorvastati 2021-0 Yes TAKE 1 [facility] ers n 20 mg 7-24 TABLET BY ity of tablet 00:00: MOUTH 00 EVERY DAY Medical Branch DIRECTED atorvastati 2021-0 Yes TAKE 1 [facility] ers n 20 mg 7-24 TABLET BY ity of tablet 00:00: MOUTH 00 EVERY DAY Medical Branch DIRECTED atorvastati 2021-0 Yes TAKE 1 [facility] ers n 20 mg 7-24 TABLET BY ity of tablet 00:00: MOUTH 00 EVERY DAY Medical Branch DIRECTED atorvastati 2021-0 Yes TAKE 1 [facility] ers n 20 mg 7-24 TABLET BY ity of tablet 00:00: MOUTH 00 EVERY DAY Medical Branch DIRECTED atorvastati 2021-0 Yes TAKE 1 [facility] ers n 20 mg 7-24 TABLET BY ity of tablet 00:00: MOUTH 00 EVERY DAY Medical Branch DIRECTED atorvastati 2021-0 Yes TAKE 1 [facility] ers n 20 mg 7-24 TABLET BY ity of tablet 00:00: MOUTH 00 EVERY DAY Medical Branch DIRECTED atorvastati 2021-0 Yes TAKE 1 [facility] ers n 20 mg 7-24 TABLET BY ity of tablet 00:00: MOUTH 00 EVERY DAY Medical Branch DIRECTED atorvastati 2021-0 Yes TAKE 1 [facility] ers n 20 mg 7-24 TABLET BY ity of tablet 00:00: MOUTH EVERY DAY Medical Branch DIRECTED atorvastati 2021-0 Yes TAKE 1 [facility] ers n 20 mg 7-24 TABLET BY ity of tablet 00:00: MOUTH EVERY DAY Medical Branch DIRECTED atorvastati 2021-0 Yes TAKE 1 [facility] ers n 20 mg 7-24 TABLET BY ity of tablet 00:00: MOUTH 00 EVERY DAY Medical Branch DIRECTED atorvastati 1-0 Yes TAKE 1 [facility] ers n 20 mg 7-24 TABLET BY ity of tablet 00:00: MOUTH EVERY DAY Medical Branch DIRECTED atorvastati 1-0 Yes TAKE 1 [facility] ers n 20 mg 7-24 TABLET BY ity of tablet 00:00: MOUTH EVERY DAY Medical Branch DIRECTED atorvastati 2021-0 Yes TAKE 1 [facility] ers n 20 mg 7-24 TABLET BY ity of tablet 00:00: MOUTH 00 EVERY DAY Medical Branch DIRECTED atorvastati 2021-0 Yes TAKE 1 [facility] ers n 20 mg 7-24 TABLET BY ity of tablet 00:00: MOUTH 00 EVERY DAY Medical Branch DIRECTED atorvastati 2021-0 Yes TAKE 1 [facility] ers n 20 mg 7-24 TABLET BY ity of tablet 00:00: 00 EVERY DAY Medical Branch DIRECTED atorvastati 2021-0 Yes TAKE 1 [facility] ers n 20 mg 7-24 TABLET BY ity of tablet 00:00: MOUTH 00 EVERY DAY Medical Branch DIRECTED atorvastati 2021-0 Yes TAKE 1 [facility] ers n 20 mg 7-24 TABLET BY ity of tablet 00:00: MOUTH 00 EVERY DAY Medical Branch DIRECTED atorvastati 2021-0 Yes TAKE 1 [facility] ers n 20 mg 7-24 TABLET BY ity of tablet 00:00: MOUTH 00 EVERY DAY Medical Branch DIRECTED atorvastati 2021-0 Yes TAKE 1 [facility] ers n 20 mg 7-24 TABLET BY ity of tablet 00:00: MOUTH 00 EVERY DAY Medical Branch DIRECTED atorvastati 2021-0 Yes TAKE 1 [facility] ers n 20 mg 7-24 TABLET BY ity of tablet 00:00: MOUTH [place] 00 EVERY DAY Medical Branch DIRECTED atorvastati 2021-0 Yes TAKE 1 [facility] ers n 20 mg 7-24 TABLET BY ity of tablet 00:00: MOUTH 00 EVERY DAY Medical Branch DIRECTED atorvastati 2021-0 Yes TAKE 1 [facility] ers n 20 mg 7-24 TABLET BY ity of tablet 00:00: MOUTH 00 EVERY DAY Medical Branch DIRECTED atorvastati 2021-0 Yes TAKE 1 [facility] ers n 20 mg 7-24 TABLET BY ity of tablet 00:00: MOUTH 00 EVERY DAY Medical Branch DIRECTED atorvastati 2021-0 Yes TAKE 1 [facility] ers n 20 mg 7-24 TABLET BY ity of tablet 00:00: MOUTH 00 EVERY DAY Medical Branch DIRECTED atorvastati 1-0 Yes TAKE 1 [facility] ers n 20 mg 7-24 TABLET BY ity of tablet 00:00: MOUTH 00 EVERY DAY Medical Branch DIRECTED atorvastati 2021-0 Yes TAKE 1 [facility] ers n 20 mg 7-24 TABLET BY ity of tablet 00:00: MOUTH 00 EVERY DAY Medical Branch DIRECTED atorvastati 2021-0 Yes TAKE 1 [facility] ers n 20 mg 7-24 TABLET BY ity of tablet 00:00: MOUTH 00 EVERY DAY Medical Branch DIRECTED atorvastati 2021-0 Yes TAKE 1 [facility] ers n 20 mg 7-24 TABLET BY ity of tablet 00:00: MOUTH 00 EVERY DAY Medical Branch DIRECTED atorvastati 2021-0 Yes TAKE 1 [facility] ers n 20 mg 7-24 TABLET BY ity of tablet 00:00: MOUTH 00 EVERY DAY Medical Branch DIRECTED albuterol 2020-0 Yes [id number] 2{puff} Inhale 2 [facility] 90 6-25 Puffs ity of mcg/actuati 00:00: every 6 [place] as on inhaler 00 (six) Medical hours as Branch needed for Wheezing or Shortness of Breath. albuterol 2020-0 Yes [id number] 2{puff} Inhale 2 [facility] 90 6-25 Puffs ity of mcg/actuati 00:00: every 6 [place] as on inhaler 00 (six) Medical hours as Branch needed for Wheezing or Shortness of Breath. albuterol 2020-0 Yes [id number] 2{puff} Inhale 2 [facility] 90 6-25 Puffs ity of mcg/actuati 00:00: every 6 [place] as on inhaler 00 (six) Medical hours as Branch needed for Wheezing or Shortness of Breath. albuterol Yes [id number] 2{puff} Inhale 2 [facility] 90 6-25 Puffs ity of mcg/actuati 00:00: every 6 [place] as on inhaler 00 (six) Medical hours as Branch needed for Wheezing or Shortness of Breath. albuterol Yes [id number] 2{puff} Inhale 2 [facility] 90 6-25 Puffs ity of mcg/actuati 00:00: every 6 [place] as on inhaler 00 (six) Medical hours as Branch needed for Wheezing or Shortness of Breath. albuterol Yes [id number] 2{puff} Inhale 2 [facility] 90 6-25 Puffs ity of mcg/actuati 00:00: every 6 [place] as on inhaler 00 (six) Medical hours as Branch needed for Wheezing or Shortness of Breath. albuterol Yes [id number] 2{puff} Inhale 2 [facility] 90 6-25 Puffs ity of mcg/actuati 00:00: every 6 [place] as on inhaler 00 (six) Medical hours as Branch needed for Wheezing or Shortness of Breath. albuterol Yes [id number] 2{puff} Inhale 2 [facility] 90 6-25 Puffs ity of mcg/actuati 00:00: every 6 [place] as on inhaler 00 (six) Medical hours as Branch needed for Wheezing or Shortness of Breath. albuterol Yes [id number] 2{puff} Inhale 2 [facility] 90 6-25 Puffs ity of mcg/actuati 00:00: every 6 [place] as on inhaler 00 (six) Medical hours as Branch needed for Wheezing or Shortness of Breath. albuterol Yes [id number] 2{puff} Inhale 2 [facility] 90 6-25 Puffs ity of mcg/actuati 00:00: every 6 [place] as on inhaler 00 (six) Medical hours as Branch needed for Wheezing or Shortness of Breath. albuterol Yes [id number] 2{puff} Inhale 2 [facility] 90 6-25 Puffs ity of mcg/actuati 00:00: every 6 [place] as on inhaler 00 (six) Medical hours as Branch needed for Wheezing or Shortness of Breath. albuterol Yes [id number] 2{puff} Inhale 2 [facility] 90 6-25 Puffs ity of mcg/actuati 00:00: every 6 [place] as on inhaler 00 (six) Medical hours as Branch needed for Wheezing or Shortness of Breath. albuterol Yes [id number] 2{puff} Inhale 2 [facility] 90 6-25 Puffs ity of mcg/actuati 00:00: every 6 [place] as on inhaler 00 (six) Medical hours as Branch needed for Wheezing or Shortness of Breath. albuterol Yes [id number] 2{puff} Inhale 2 [facility] 90 6-25 Puffs ity of mcg/actuati 00:00: every 6 [place] as on inhaler 00 (six) Medical hours as Branch needed for Wheezing or Shortness of Breath. albuterol Yes [id number] 2{puff} Inhale 2 [facility] 90 6-25 Puffs ity of mcg/actuati 00:00: every 6 [place] as on inhaler 00 (six) Medical hours as Branch needed for Wheezing or Shortness of Breath. albuterol Yes [id number] 2{puff} Inhale 2 [facility] 90 6-25 Puffs ity of mcg/actuati 00:00: every 6 [place] as on inhaler 00 (six) Medical hours as Branch needed for Wheezing or Shortness of Breath. albuterol Yes [id number] 2{puff} Inhale 2 [facility] 90 6-25 Puffs ity of mcg/actuati 00:00: every 6 [place] as on inhaler 00 (six) Medical hours as Branch needed for Wheezing or Shortness of Breath. albuterol Yes [id number] 2{puff} Inhale 2 [facility] 90 6-25 Puffs ity of mcg/actuati 00:00: every 6 [place] as on inhaler 00 (six) Medical hours as Branch needed for Wheezing or Shortness of Breath. albuterol Yes [id number] 2{puff} Inhale 2 [facility] 90 6-25 Puffs ity of mcg/actuati 00:00: every 6 [place] as on inhaler 00 (six) Medical hours as Branch needed for Wheezing or Shortness of Breath. albuterol Yes [id number] 2{puff} Inhale 2 [facility] 90 6-25 Puffs ity of mcg/actuati 00:00: every 6 [place] as on inhaler 00 (six) Medical hours as Branch needed for Wheezing or Shortness of Breath. albuterol Yes [id number] 2{puff} Inhale 2 [facility] 90 6-25 Puffs ity of mcg/actuati 00:00: every 6 [place] as on inhaler 00 (six) Medical hours as Branch needed for Wheezing or Shortness of Breath. albuterol Yes [id number] 2{puff} Inhale 2 [facility] 90 6-25 Puffs ity of mcg/actuati 00:00: every 6 [place] as on inhaler 00 (six) Medical hours as Branch needed for Wheezing or Shortness of Breath. albuterol Yes [id number] 2{puff} Inhale 2 [facility] 90 6-25 Puffs ity of mcg/actuati 00:00: every 6 [place] as on inhaler 00 (six) Medical hours as Branch needed for Wheezing or Shortness of Breath. albuterol Yes [id number] 2{puff} Inhale 2 [facility] 90 6-25 Puffs ity of mcg/actuati 00:00: every 6 [place] as on inhaler 00 (six) Medical hours as Branch needed for Wheezing or Shortness of Breath. albuterol Yes [id number] 2{puff} Inhale 2 [facility] 90 6-25 Puffs ity of mcg/actuati 00:00: every 6 [place] as on inhaler 00 (six) Medical hours as Branch needed for Wheezing or Shortness of Breath. albuterol Yes [id number] 2{puff} Inhale 2 [facility] 90 6-25 Puffs ity of mcg/actuati 00:00: every 6 [place] as on inhaler 00 (six) Medical hours as Branch needed for Wheezing or Shortness of Breath. albuterol Yes [id number] 2{puff} Inhale 2 [facility] 90 6-25 Puffs ity of mcg/actuati 00:00: every 6 [place] as on inhaler 00 (six) Medical hours as Branch needed for Wheezing or Shortness of Breath. albuterol Yes [id number] 2{puff} Inhale 2 [facility] 90 6-25 Puffs ity of mcg/actuati 00:00: every 6 [place] as on inhaler 00 (six) Medical hours as Branch needed for Wheezing or Shortness of Breath. albuterol Yes [id number] 2{puff} Inhale 2 [facility] 90 6-25 Puffs ity of mcg/actuati 00:00: every 6 [place] as on inhaler 00 (six) Medical hours as Branch needed for Wheezing or Shortness of Breath. albuterol Yes [id number] 2{puff} Inhale 2 [facility] 90 6-25 Puffs ity of mcg/actuati 00:00: every 6 [place] as on inhaler 00 (six) Medical hours as Branch needed for Wheezing or Shortness of Breath. albuterol Yes [id number] 2{puff} Inhale 2 [facility] 90 6-25 Puffs ity of mcg/actuati 00:00: every 6 [place] as on inhaler 00 (six) Medical hours as Branch needed for Wheezing or Shortness of Breath. albuterol Yes [id number] 2{puff} Inhale 2 [facility] 90 6-25 Puffs ity of mcg/actuati 00:00: every 6 [place] as on inhaler 00 (six) Medical hours as Branch needed for Wheezing or Shortness of Breath. albuterol Yes [id number] 2{puff} Inhale 2 [facility] 90 6-25 Puffs ity of mcg/actuati 00:00: every 6 [place] as on inhaler 00 (six) Medical hours as Branch needed for Wheezing or Shortness of Breath. albuterol Yes [id number] 2{puff} Inhale 2 [facility] 90 6-25 Puffs ity of mcg/actuati 00:00: every 6 [place] as on inhaler 00 (six) Medical hours as Branch needed for Wheezing or Shortness of Breath. albuterol Yes [id number] 2{puff} Inhale 2 [facility] 90 6-25 Puffs ity of mcg/actuati 00:00: every 6 [place] as on inhaler 00 (six) Medical hours as Branch needed for Wheezing or Shortness of Breath. albuterol Yes [id number] 2{puff} Inhale 2 [facility] 90 6-25 Puffs ity of mcg/actuati 00:00: every 6 [place] as on inhaler 00 (six) Medical hours as Branch needed for Wheezing or Shortness of Breath. albuterol Yes [id number] 2{puff} Inhale 2 [facility] 90 6-25 Puffs ity of mcg/actuati 00:00: every 6 [place] as on inhaler 00 (six) Medical hours as Branch needed for Wheezing or Shortness of Breath. albuterol Yes [id number] 2{puff} Inhale 2 [facility] 90 6-25 Puffs ity of mcg/actuati 00:00: every 6 [place] as on inhaler 00 (six) Medical hours as Branch needed for Wheezing or Shortness of Breath. albuterol Yes [id number] 2{puff} Inhale 2 [facility] 90 6-25 Puffs ity of mcg/actuati 00:00: every 6 [place] as on inhaler 00 (six) Medical hours as Branch needed for Wheezing or Shortness of Breath. albuterol Yes [id number] 2{puff} Inhale 2 [facility] 90 6-25 Puffs ity of mcg/actuati 00:00: every 6 [place] as on inhaler 00 (six) Medical hours as Branch needed for Wheezing or Shortness of Breath. albuterol Yes [id number] 2{puff} Inhale 2 [facility] 90 6-25 Puffs ity of mcg/actuati 00:00: every 6 [place] as on inhaler 00 (six) Medical hours as Branch needed for Wheezing or Shortness of Breath. albuterol Yes [id number] 2{puff} Inhale 2 [facility] 90 6-25 Puffs ity of mcg/actuati 00:00: every 6 [place] as on inhaler 00 (six) Medical hours as Branch needed for Wheezing or Shortness of Breath. albuterol Yes [id number] 2{puff} Inhale 2 [facility] 90 6-25 Puffs ity of mcg/actuati 00:00: every 6 [place] as on inhaler 00 (six) Medical hours as Branch needed for Wheezing or Shortness of Breath. albuterol Yes [id number] 2{puff} Inhale 2 [facility] 90 6-25 Puffs ity of mcg/actuati 00:00: every 6 [place] as on inhaler 00 (six) Medical hours as Branch needed for Wheezing or Shortness of Breath. albuterol Yes [id number] 2{puff} Inhale 2 [facility] 90 6-25 Puffs ity of mcg/actuati 00:00: every 6 [place] as on inhaler 00 (six) Medical hours as Branch needed for Wheezing or Shortness of Breath. cyclobenzap Yes TAKE 1 [facility] ers rine 10 mg 5-06 TABLET BY ity of tablet 00:00: MOUTH AT [address] Medical DO NOT Branch DRIVE WITH MUSCLE RELAXER cyclobenzap 2020-0 Yes TAKE 1 [facility] ers rine 10 mg 5-06 TABLET BY ity of tablet 00:00: MOUTH AT [address] Medical DO NOT Branch DRIVE WITH MUSCLE RELAXER cyclobenzap 2020-0 Yes TAKE 1 [facility] ers rine 10 mg 5-06 TABLET BY ity of tablet 00:00: MOUTH AT [address] Medical DO NOT Branch DRIVE WITH MUSCLE RELAXER cyclobenzap 2020-0 Yes TAKE 1 [facility] ers rine 10 mg 5-06 TABLET BY ity of tablet 00:00: MOUTH AT [address] Medical DO NOT Branch DRIVE WITH MUSCLE RELAXER cyclobenzap 2020-0 Yes TAKE 1 [facility] ers rine 10 mg 5-06 TABLET BY ity of tablet 00:00: MOUTH AT [address] Medical DO NOT Branch DRIVE WITH MUSCLE RELAXER cyclobenzap 2020-0 Yes TAKE 1 [facility] ers rine 10 mg 5-06 TABLET BY ity of tablet 00:00: MOUTH AT [address] Medical DO NOT Branch DRIVE WITH MUSCLE RELAXER cyclobenzap 2020-0 Yes TAKE 1 [facility] ers rine 10 mg 5-06 TABLET BY ity of tablet 00:00: MOUTH AT [address] Medical DO NOT Branch DRIVE WITH MUSCLE RELAXER cyclobenzap 2020-0 Yes 10mg Take 10 mg [facility] rine 10 mg 5-06 by mouth ity o f tablet 00:00: at bedtime [place] 00 as needed Medical for Muscle Branch Spasms. cyclobenzap 2021-0 Yes 10mg Take 10 mg [facility] rine 10 mg 5-06 by mouth ity o f tablet 00:00: at bedtime [place] 00 as needed Medical for Muscle Branch Spasms. cyclobenzap 2021-0 Yes 10mg Take 10 mg [facility] rine 10 mg 5-06 by mouth ity o f tablet 00:00: at bedtime [place] 00 as needed Medical for Muscle Branch Spasms. cyclobenzap 2021-0 Yes 10mg Take 10 mg [facility] rine 10 mg 5-06 by mouth ity o f tablet 00:00: at bedtime [place] 00 as needed Medical for Muscle Branch Spasms. cyclobenzap 2021-0 Yes 10mg Take 10 mg [facility] rine 10 mg 5-06 by mouth ity o f tablet 00:00: at bedtime [place] 00 as needed Medical for Muscle Branch Spasms. cyclobenzap 1-0 Yes 10mg Take 10 mg [facility] rine 10 mg 5-06 by mouth ity o f tablet 00:00: at bedtime [place] 00 as needed Medical for Muscle Branch Spasms. cyclobenzap 1-0 Yes 10mg Take 10 mg [facility] rine 10 mg 5-06 by mouth ity o f tablet 00:00: at bedtime [place] 00 as needed Medical for Muscle Branch Spasms. cyclobenzap 1-0 Yes 10mg Take 10 mg [facility] rine 10 mg 5-06 by mouth ity o f tablet 00:00: at bedtime [place] 00 as needed Medical for Muscle Branch Spasms. cyclobenzap 2021-0 Yes 10mg Take 10 mg [facility] rine 10 mg 5-06 by mouth ity o f tablet 00:00: at bedtime [place] 00 as needed Medical for Muscle Branch Spasms. cyclobenzap 2021-0 Yes 10mg Take 10 mg [facility] rine 10 mg 5-06 by mouth ity o f tablet 00:00: at bedtime [place] 00 as needed Medical for Muscle Branch Spasms. cyclobenzap 2021-0 Yes 10mg Take 10 mg [facility] rine 10 mg 5-06 by mouth ity o f tablet 00:00: at bedtime [place] 00 as needed Medical for Muscle Branch Spasms. cyclobenzap 2021-0 Yes 10mg Take 10 mg [facility] rine 10 mg 5-06 by mouth ity o f tablet 00:00: at bedtime [place] 00 as needed Medical for Muscle Branch Spasms. cyclobenzap 2020-0 Yes 10mg Take 10 mg [facility] rine 10 mg 5-06 by mouth ity o f tablet 00:00: at bedtime [place] 00 as needed Medical for Muscle Branch Spasms. cyclobenzap 2020-0 Yes 10mg Take 10 mg [facility] rine 10 mg 5-06 by mouth ity o f tablet 00:00: at bedtime [place] 00 as needed Medical for Muscle Branch Spasms. cyclobenzap 2020-0 Yes 10mg Take 10 mg [facility] rine 10 mg 5-06 by mouth ity o f tablet 00:00: at bedtime [place] 00 as needed Medical for Muscle Branch Spasms. cyclobenzap 2020-0 Yes 10mg Take 10 mg [facility] rine 10 mg 5-06 by mouth ity o f tablet 00:00: at bedtime [place] 00 as needed Medical for Muscle Branch Spasms. cyclobenzap 2020-0 Yes 10mg Take 10 mg [facility] rine 10 mg 5-06 by mouth ity o f tablet 00:00: at bedtime [place] 00 as needed Medical for Muscle Branch Spasms. cyclobenzap 2020-0 Yes 10mg Take 10 mg [facility] rine 10 mg 5-06 by mouth ity o f tablet 00:00: at bedtime [place] 00 as needed Medical for Muscle Branch Spasms. cyclobenzap 2020-0 Yes 10mg Take 10 mg [facility] rine 10 mg 5-06 by mouth ity o f tablet 00:00: at bedtime [place] 00 as needed Medical for Muscle Branch Spasms. cyclobenzap 2020-0 Yes 10mg Take 10 mg [facility] rine 10 mg 5-06 by mouth ity o f tablet 00:00: at bedtime [place] 00 as needed Medical for Muscle Branch Spasms. cyclobenzap 1-0 Yes 10mg Take 10 mg [facility] rine 10 mg 5-06 by mouth ity o f tablet 00:00: at bedtime [place] 00 as needed Medical for Muscle Branch Spasms. cyclobenzap 2020-0 Yes 10mg Take 10 mg [facility] rine 10 mg 5-06 by mouth ity o f tablet 00:00: at bedtime [place] 00 as needed Medical for Muscle Branch Spasms. cyclobenzap 2021-0 Yes 10mg Take 10 mg [facility] rine 10 mg 5-06 by mouth ity o f tablet 00:00: at bedtime [place] 00 as needed Medical for Muscle Branch Spasms. cyclobenzap 1-0 Yes 10mg Take 10 mg [facility] rine 10 mg 5-06 by mouth ity o f tablet 00:00: at bedtime [place] 00 as needed Medical for Muscle Branch Spasms. cyclobenzap 2020-0 Yes 10mg Take 10 mg [facility] rine 10 mg 5-06 by mouth ity o f tablet 00:00: at bedtime [place] 00 as needed Medical for Muscle Branch Spasms. cyclobenzap 1-0 Yes 10mg Take 10 mg [facility] rine 10 mg 5-06 by mouth ity o f tablet 00:00: at bedtime [place] 00 as needed Medical for Muscle Branch Spasms. cyclobenzap 2020-0 Yes 10mg Take 10 mg [facility] rine 10 mg 5-06 by mouth ity o f tablet 00:00: at bedtime [place] 00 as needed Medical for Muscle Branch Spasms. cyclobenzap 2020-0 Yes 10mg Take 10 mg [facility] rine 10 mg 5-06 by mouth ity o f tablet 00:00: at bedtime [place] 00 as needed Medical for Muscle Branch Spasms. cyclobenzap 2020-0 Yes 10mg Take 10 mg [facility] rine 10 mg 5-06 by mouth ity o f tablet 00:00: at bedtime [place] 00 as needed Medical for Muscle Branch Spasms. cyclobenzap 2020-0 Yes 10mg Take 10 mg [facility] rine 10 mg 5-06 by mouth ity o f tablet 00:00: at bedtime [place] 00 as needed Medical for Muscle Branch Spasms. cyclobenzap 1-0 Yes 10mg Take 10 mg [facility] rine 10 mg 5-06 by mouth ity o f tablet 00:00: at bedtime [place] 00 as needed Medical for Muscle Branch Spasms. cyclobenzap 2021-0 Yes 10mg Take 10 mg [facility] rine 10 mg 5-06 by mouth ity o f tablet 00:00: at bedtime [place] 00 as needed Medical for Muscle Branch Spasms. cyclobenzap 1-0 Yes 10mg Take 10 mg [facility] rine 10 mg 5-06 by mouth ity o f tablet 00:00: at bedtime [place] 00 as needed Medical for Muscle Branch Spasms. cyclobenzap 2021-0 Yes 10mg Take 10 mg [facility] rine 10 mg 5-06 by mouth ity o f tablet 00:00: at bedtime [place] 00 as needed Medical for Muscle Branch Spasms. cyclobenzap 2021-0 Yes 10mg Take 10 mg [facility] rine 10 mg 5-06 by mouth ity o f tablet 00:00: at bedtime [place] 00 as needed Medical for Muscle Branch Spasms. cyclobenzap 2021-0 Yes 10mg Take 10 mg [facility] rine 10 mg 5-06 by mouth ity o f tablet 00:00: at bedtime [place] 00 as needed Medical for Muscle Branch Spasms. cyclobenzap 2021-0 Yes 10mg Take 10 mg [facility] rine 10 mg 5-06 by mouth ity o f tablet 00:00: at bedtime [place] 00 as needed Medical for Muscle Branch Spasms. cyclobenzap 1-0 Yes 10mg Take 10 mg [facility] rine 10 mg 5-06 by mouth ity o f tablet 00:00: at bedtime [place] 00 as needed Medical for Muscle Branch Spasms. ondansetron 1-0 Yes [id number] 4mg Take 1 [facility] 4 mg 1-23 tablet by ity of disintegrat 00:00: mouth [place] ing tablet 00 every 8 Medica l (eight) Branch hours as needed for Nausea and Vomiting (N/V). ondansetron 1-0 Yes [id number] 4mg Take 1 [facility] 4 mg 1-23 tablet by ity of disintegrat 00:00: mouth [place] ing tablet 00 every 8 Medica l (eight) Branch hours as needed for Nausea and Vomiting (N/V). ondansetron 1-0 Yes [id number] 4mg Take 1 [facility] 4 mg 1-23 tablet by ity of disintegrat 00:00: mouth [place] ing tablet 00 every 8 Medica l (eight) Branch hours as needed for Nausea and Vomiting (N/V). ondansetron 2021-0 Yes [id number] 4mg Take 1 [facility] 4 mg 1-23 tablet by ity of disintegrat 00:00: mouth [place] ing tablet 00 every 8 Medica l (eight) Branch hours as needed for Nausea and Vomiting (N/V). ondansetron 2021-0 Yes [id number] 4mg Take 1 [facility] 4 mg 1-23 tablet by ity of disintegrat 00:00: mouth [place] ing tablet 00 every 8 Medica l (eight) Branch hours as needed for Nausea and Vomiting (N/V). ondansetron 2020-0 Yes [id number] 4mg Take 1 [facility] 4 mg 1-23 tablet by ity of disintegrat 00:00: mouth [place] ing tablet 00 every 8 Medica l (eight) Branch hours as needed for Nausea and Vomiting (N/V). ondansetron 2020-0 Yes [id number] 4mg Take 1 [facility] 4 mg 1-23 tablet by ity of disintegrat 00:00: mouth [place] ing tablet 00 every 8 Medica l (eight) Branch hours as needed for Nausea and Vomiting (N/V). ondansetron 2020-0 Yes [id number] 4mg Take 1 [facility] 4 mg 1-23 tablet by ity of disintegrat 00:00: mouth [place] ing tablet 00 every 8 Medica l (eight) Branch hours as needed for Nausea and Vomiting (N/V). ondansetron 2020-0 Yes [id number] 4mg Take 1 [facility] 4 mg 1-23 tablet by ity of disintegrat 00:00: mouth [place] ing tablet 00 every 8 Medica l (eight) Branch hours as needed for Nausea and Vomiting (N/V). ondansetron 2020-0 Yes [id number] 4mg Take 1 [facility] 4 mg 1-23 tablet by ity of disintegrat 00:00: mouth [place] ing tablet 00 every 8 Medica l (eight) Branch hours as needed for Nausea and Vomiting (N/V). ondansetron 2020-0 Yes [id number] 4mg Take 1 [facility] 4 mg 1-23 tablet by ity of disintegrat 00:00: mouth [place] ing tablet 00 every 8 Medica l (eight) Branch hours as needed for Nausea and Vomiting (N/V). ondansetron 2020-0 Yes [id number] 4mg Take 1 [facility] 4 mg 1-23 tablet by ity of disintegrat 00:00: mouth [place] ing tablet 00 every 8 Medica l (eight) Branch hours as needed for Nausea and Vomiting (N/V). ondansetron 2020-0 Yes [id number] 4mg Take 1 [facility] 4 mg 1-23 tablet by ity of disintegrat 00:00: mouth [place] ing tablet 00 every 8 Medica l (eight) Branch hours as needed for Nausea and Vomiting (N/V). ondansetron 2020-0 Yes [id number] 4mg Take 1 [facility] 4 mg 1-23 tablet by ity of disintegrat 00:00: mouth [place] ing tablet 00 every 8 Medica l (eight) Branch hours as needed for Nausea and Vomiting (N/V). ondansetron 2020-0 Yes [id number] 4mg Take 1 [facility] 4 mg 1-23 tablet by ity of disintegrat 00:00: mouth [place] ing tablet 00 every 8 Medica l (eight) Branch hours as needed for Nausea and Vomiting (N/V). ondansetron 2020-0 Yes [id number] 4mg Take 1 [facility] 4 mg 1-23 tablet by ity of disintegrat 00:00: mouth [place] ing tablet 00 every 8 Medica l (eight) Branch hours as needed for Nausea and Vomiting (N/V). ondansetron 2020-0 Yes [id number] 4mg Take 1 [facility] 4 mg 1-23 tablet by ity of disintegrat 00:00: mouth [place] ing tablet 00 every 8 Medica l (eight) Branch hours as needed for Nausea and Vomiting (N/V). ondansetron 2020-0 Yes [id number] 4mg Take 1 [facility] 4 mg 1-23 tablet by ity of disintegrat 00:00: mouth [place] ing tablet 00 every 8 Medica l (eight) Branch hours as needed for Nausea and Vomiting (N/V). ondansetron 2020-0 Yes [id number] 4mg Take 1 [facility] 4 mg 1-23 tablet by ity of disintegrat 00:00: mouth [place] ing tablet 00 every 8 Medica l (eight) Branch hours as needed for Nausea and Vomiting (N/V). ondansetron 2020-0 Yes [id number] 4mg Take 1 [facility] 4 mg 1-23 tablet by ity of disintegrat 00:00: mouth [place] ing tablet 00 every 8 Medica l (eight) Branch hours as needed for Nausea and Vomiting (N/V). ondansetron 2020-0 Yes [id number] 4mg Take 1 [facility] 4 mg 1-23 tablet by ity of disintegrat 00:00: mouth [place] ing tablet 00 every 8 Medica l (eight) Branch hours as needed for Nausea and Vomiting (N/V). ondansetron 2020-0 Yes [id number] 4mg Take 1 [facility] 4 mg 1-23 tablet by ity of disintegrat 00:00: mouth [place] ing tablet 00 every 8 Medica l (eight) Branch hours as needed for Nausea and Vomiting (N/V). ondansetron 0 Yes [id number] 4mg Take 1 [facility] 4 mg 1-23 tablet by ity of disintegrat 00:00: mouth [place] ing tablet 00 every 8 Medica l (eight) Branch hours as needed for Nausea and Vomiting (N/V). ondansetron 0 Yes [id number] 4mg Take 1 [facility] 4 mg 1-23 tablet by ity of disintegrat 00:00: mouth [place] ing tablet 00 every 8 Medica l (eight) Branch hours as needed for Nausea and Vomiting (N/V). ondansetron 0 Yes [id number] 4mg Take 1 [facility] 4 mg 1-23 tablet by ity of disintegrat 00:00: mouth [place] ing tablet 00 every 8 Medica l (eight) Branch hours as needed for Nausea and Vomiting (N/V). ondansetron 0 Yes [id number] 4mg Take 1 [facility] 4 mg 1-23 tablet by ity of disintegrat 00:00: mouth [place] ing tablet 00 every 8 Medica l (eight) Branch hours as needed for Nausea and Vomiting (N/V). ondansetron 0 Yes [id number] 4mg Take 1 [facility] 4 mg 1-23 tablet by ity of disintegrat 00:00: mouth [place] ing tablet 00 every 8 Medica l (eight) Branch hours as needed for Nausea and Vomiting (N/V). ondansetron 0 Yes [id number] 4mg Take 1 [facility] 4 mg 1-23 tablet by ity of disintegrat 00:00: mouth [place] ing tablet 00 every 8 Medica l (eight) Branch hours as needed for Nausea and Vomiting (N/V). ondansetron 2020-0 Yes [id number] 4mg Take 1 [facility] 4 mg 1-23 tablet by ity of disintegrat 00:00: mouth [place] ing tablet 00 every 8 Medica l (eight) Branch hours as needed for Nausea and Vomiting (N/V). ondansetron 2020-0 Yes [id number] 4mg Take 1 [facility] 4 mg 1-23 tablet by ity of disintegrat 00:00: mouth [place] ing tablet 00 every 8 Medica l (eight) Branch hours as needed for Nausea and Vomiting (N/V). ondansetron 2020-0 Yes [id number] 4mg Take 1 [facility] 4 mg 1-23 tablet by ity of disintegrat 00:00: mouth [place] ing tablet 00 every 8 Medica l (eight) Branch hours as needed for Nausea and Vomiting (N/V). ondansetron 2020-0 Yes [id number] 4mg Take 1 [facility] 4 mg 1-23 tablet by ity of disintegrat 00:00: mouth [place] ing tablet 00 every 8 Medica l (eight) Branch hours as needed for Nausea and Vomiting (N/V). ondansetron 2020-0 Yes [id number] 4mg Take 1 [facility] 4 mg 1-23 tablet by ity of disintegrat 00:00: mouth [place] ing tablet 00 every 8 Medica l (eight) Branch hours as needed for Nausea and Vomiting (N/V). ondansetron 2020-0 Yes [id number] 4mg Take 1 [facility] 4 mg 1-23 tablet by ity of disintegrat 00:00: mouth [place] ing tablet 00 every 8 Medica l (eight) Branch hours as needed for Nausea and Vomiting (N/V). ondansetron 2020-0 Yes [id number] 4mg Take 1 [facility] 4 mg 1-23 tablet by ity of disintegrat 00:00: mouth [place] ing tablet 00 every 8 Medica l (eight) Branch hours as needed for Nausea and Vomiting (N/V). ondansetron 2020-0 Yes [id number] 4mg Take 1 [facility] 4 mg 1-23 tablet by ity of disintegrat 00:00: mouth [place] ing tablet 00 every 8 Medica l (eight) Branch hours as needed for Nausea and Vomiting (N/V). ondansetron 2020-0 Yes [id number] 4mg Take 1 [facility] 4 mg 1-23 tablet by ity of disintegrat 00:00: mouth [place] ing tablet 00 every 8 Medica l (eight) Branch hours as needed for Nausea and Vomiting (N/V). ondansetron 2020-0 Yes [id number] 4mg Take 1 [facility] 4 mg 1-23 tablet by ity of disintegrat 00:00: mouth [place] ing tablet 00 every 8 Medica l (eight) Branch hours as needed for Nausea and Vomiting (N/V). ondansetron 2020-0 Yes [id number] 4mg Take 1 [facility] 4 mg 1-23 tablet by ity of disintegrat 00:00: mouth [place] ing tablet 00 every 8 Medica l (eight) Branch hours as needed for Nausea and Vomiting (N/V). ondansetron 2020-0 Yes [id number] 4mg Take 1 [facility] 4 mg 1-23 tablet by ity of disintegrat 00:00: mouth [place] ing tablet 00 every 8 Medica l (eight) Branch hours as needed for Nausea and Vomiting (N/V). ondansetron 2020-0 Yes [id number] 4mg Take 1 [facility] 4 mg 1-23 tablet by ity of disintegrat 00:00: mouth [place] ing tablet 00 every 8 Medica l (eight) Branch hours as needed for Nausea and Vomiting (N/V). ondansetron 2020-0 Yes [id number] 4mg Take 1 [facility] 4 mg 1-23 tablet by ity of disintegrat 00:00: mouth [place] ing tablet 00 every 8 Medica l (eight) Branch hours as needed for Nausea and Vomiting (N/V). ondansetron 0 Yes [id number] 4mg Take 1 [facility] 4 mg 1-23 tablet by ity of disintegrat 00:00: mouth [place] ing tablet 00 every 8 Medica l (eight) Branch hours as needed for Nausea and Vomiting (N/V). ondansetron 0 Yes [id number] 4mg Take 1 [facility] 4 mg 1-23 tablet by ity of disintegrat 00:00: mouth [place] ing tablet 00 every 8 Medica l (eight) Branch hours as needed for Nausea and Vomiting (N/V). ondansetron 0 Yes [id number] 4mg Take 1 [facility] 4 mg 1-23 tablet by ity of disintegrat 00:00: mouth [place] ing tablet 00 every 8 Medica l (eight) Branch hours as needed for Nausea and Vomiting (N/V). acetaminoph 2020-1 Yes 500mg Take 500 U nivers en 500 mg 2-28 mg by ity of tablet 00:00: mouth. [place] [facility] acetaminoph 2020-1 Yes 500mg Take 500 U nivers en 500 mg 2-28 mg by ity of tablet 00:00: mouth. Medical Branch acetaminoph 2019- Yes 500mg Take 500 U nivers en 500 mg 2-28 mg by ity of tablet 00:00: mouth. Medical Branch acetaminoph 2019- Yes 500mg Take 500 U nivers en 500 mg 2-28 mg by ity of tablet 00:00: mouth. [facility] acetaminoph 2019- Yes 500mg Take 500 U nivers en 500 mg 2-28 mg by ity of tablet 00:00: mouth. [facility] acetaminoph 2019-09 Yes 500mg Take 500 U nivers en 500 mg 2-28 mg by ity of tablet 00:00: mouth. [facility] acetaminoph 2019-09 Yes 500mg Take 500 U nivers en 500 mg 2-28 mg by ity of tablet 00:00: mouth. [facility] acetaminoph 2019-09- No 500mg Take 500 Univers en 500 mg 2-28 10-22 mg by ity of tablet 00:00: 00:00 mouth. [place] 00 :00 Medical Branch traZODone 2019- Yes TAKE ONE Univ ers 100 mg 1-12 (1) ity of tablet 00:00: TABLET(S) BY [facility] [place] [facility] traZODone 2019-09 Yes TAKE ONE [facility] ers 100 mg 1-12 (1) ity of tablet 00:00: TABLET(S) BY [facility] [place] [facility] traZODone 2019- Yes TAKE ONE [facility] ers 100 mg 1-12 (1) ity of tablet 00:00: TABLET(S) BY [facility] [place] [facility] traZODone 2019- Yes TAKE ONE [facility] ers 100 mg 1-12 (1) ity of tablet 00:00: TABLE[facility](S[facility]TH [facility] [place] [facility] traZODone 2019- Yes TAKE ONE [facility] ers 100 mg 1-12 (1) ity of tablet 00:00: TABLET(S) [facility]OUTH [facility] [place] [facility] traZODone 2019- Yes TAKE ONE [facility] ers 100 mg 1-12 (1) ity of tablet 00:00: TABLET(S) BY MOUTH [facility] [place] [facility]. traZODone 2020-1 Yes TAKE ONE [facility] ers 100 mg 1-12 (1) ity of tablet 00:00: TABLET(S) BY MOUTH Medical AT BEDTIME Branch NEEDED. traZODone 2019-2021- No 100mg Take 100 Un [place] 100 mg 1-12 10-23 mg by ity of tablet 00:00: 00:00 mouth at [place] 00 :00 bedtime as Medical needed for Branch Insomnia. SUMAtriptan 2019- Yes PLEASE SEE [facility] 25 [...] 1-01 ATTACHED ity of tablet 00:00: FOR [place] 00 DETAILED Medical DIRECTIONS Branch lamoTRIgine 2019- Yes TAKE TWO Un [place] 100 mg 0-28 (2) ity of tablet 00:00: TABLET(S) [place] 00 BY MOUTH Medical EVERY Branch MORNING. lamoTRIgine 2019- Yes TAKE TWO Un [place] 100 mg 0-28 (2) ity of tablet 00:00: TABLET(S) [place] 00 BY MOUTH Medical EVERY Branch MORNING. lamoTRIgine 2019- Yes TAKE TWO Un [place] 100 mg 0-28 (2) ity of tablet 00:00: TABLET(S) [place] 00 BY MOUTH Medical EVERY Branch MORNING. lamoTRIgine 2019- Yes TAKE TWO Un [place] 100 mg 0-28 (2) ity of tablet 00:00: TABLET(S) [place] 00 BY MOUTH Medical EVERY Branch MORNING. lamoTRIgine 2019- Yes TAKE TWO Un [place] 100 mg 0-28 (2) ity of tablet 00:00: TABLET(S) [place] 00 BY MOUTH Medical EVERY Branch MORNING. lamoTRIgine 2019- Yes TAKE TWO Un [place] 100 mg 0-28 (2) ity of tablet 00:00: TABLET(S) [place] 00 BY MOUTH Medical EVERY Branch MORNING. lamoTRIgine 2019- Yes TAKE TWO Un [place] 100 mg 0-28 (2) ity of tablet 00:00: TABLET(S) [place] 00 BY MOUTH Medical EVERY Branch MORNING. lamoTRIgine 2019- Yes 200mg Take 200 U nivers 100 mg 0-28 mg by ity of tablet 00:00: mouth [place] 00 every Medical morning. Branch lamoTRIgine 2019- Yes 200mg Take 200 U nivers 100 mg 0-28 mg by ity of tablet 00:00: mouth [place] 00 every Medical morning. Branch lamoTRIgine 2019- Yes 200mg Take 200 U nivers 100 mg 0-28 mg by ity of tablet 00:00: mouth [place] 00 every Medical morning. Branch lamoTRIgine 2019- Yes 200mg Take 200 U nivers 100 mg 0-28 mg by ity of tablet 00:00: mouth [place] 00 every Medical morning. Branch lamoTRIgine 2019- Yes 200mg Take 200 U nivers 100 mg 0-28 mg by ity of tablet 00:00: mouth [place] 00 every Medical morning. Branch lamoTRIgine 2020-1 Yes 200mg Take 200 U nivers 100 mg 0-28 mg by ity of tablet 00:00: mouth [place] 00 every Medical morning. Branch lamoTRIgine 2020-1 Yes 200mg Take 200 U nivers 100 mg 0-28 mg by ity of tablet 00:00: mouth [place] 00 every Medical morning. Branch lamoTRIgine 2020-1 Yes 200mg Take 200 U nivers 100 mg 0-28 mg by ity of tablet 00:00: mouth [place] 00 every Medical morning. Branch lamoTRIgine 2020-1 Yes 200mg Take 200 U nivers 100 mg 0-28 mg by ity of tablet 00:00: mouth [place] 00 every Medical morning. Branch lamoTRIgine 2020-1 Yes 200mg Take 200 U nivers 100 mg 0-28 mg by ity of tablet 00:00: mouth [place] 00 every Medical morning. Branch lamoTRIgine 2020-1 Yes 200mg Take 200 U nivers 100 mg 0-28 mg by ity of tablet 00:00: mouth [place] 00 every Medical morning. Branch lamoTRIgine 2020-1 Yes 200mg Take 200 U nivers 100 mg 0-28 mg by ity of tablet 00:00: mouth [place] 00 every Medical morning. Branch lamoTRIgine 2020-1 Yes 200mg Take 200 U nivers 100 mg 0-28 mg by ity of tablet 00:00: mouth [place] 00 every Medical morning. Branch lamoTRIgine 2020-1 Yes 200mg Take 200 U nivers 100 mg 0-28 mg by ity of tablet 00:00: mouth [place] 00 every Medical morning. Branch lamoTRIgine 2020-1 Yes 200mg Take 200 U nivers 100 mg 0-28 mg by ity of tablet 00:00: mouth [place] 00 every Medical morning. Branch lamoTRIgine 2020-1 Yes 200mg Take 200 U nivers 100 mg 0-28 mg by ity of tablet 00:00: mouth [place] 00 every Medical morning. Branch lamoTRIgine 2020-1 Yes 200mg Take 200 U nivers 100 mg 0-28 mg by ity of tablet 00:00: mouth [place] 00 every Medical morning. Branch lamoTRIgine 2020-1 Yes 200mg Take 200 U nivers 100 mg 0-28 mg by ity of tablet 00:00: mouth [place] 00 every Medical morning. Branch lamoTRIgine 2020-1 Yes 200mg Take 200 U nivers 100 mg 0-28 mg by ity of tablet 00:00: mouth [place] 00 every Medical morning. Branch lamoTRIgine 2020-1 Yes 200mg Take 2 Uni vers 100 mg 0-28 tablets by ity of tablet 00:00: mouth [place] 00 every Medical morning. Branch lamoTRIgine 2020-1 Yes 200mg Take 2 Uni vers 100 mg 0-28 tablets by ity of tablet 00:00: mouth [place] 00 every Medical morning. Branch lamoTRIgine 2020-1 Yes 200mg Take 2 Uni vers 100 mg 0-28 tablets by ity of tablet 00:00: mouth [place] 00 every Medical morning. Branch lamoTRIgine 2020-1 Yes 200mg Take 2 Uni vers 100 mg 0-28 tablets by ity of tablet 00:00: mouth [place] 00 every Medical morning. Branch lamoTRIgine 2020-1 Yes 200mg Take 2 Uni vers 100 mg 0-28 tablets by ity of tablet 00:00: mouth [place] 00 every Medical morning. Branch lamoTRIgine 2020-1 Yes 200mg Take 2 Uni vers 100 mg 0-28 tablets by ity of tablet 00:00: mouth [place] 00 every Medical morning. Branch lamoTRIgine 2020-1 Yes 200mg Take 2 Uni vers 100 mg 0-28 tablets by ity of tablet 00:00: mouth [place] 00 every Medical morning. Branch lamoTRIgine 2020-1 Yes 200mg Take 2 Uni vers 100 mg 0-28 tablets by ity of tablet 00:00: mouth [place] 00 every Medical morning. Branch lamoTRIgine 2020-1 Yes 200mg Take 2 Uni vers 100 mg 0-28 tablets by ity of tablet 00:00: mouth [place] 00 every Medical morning. Branch lamoTRIgine 2020-1 Yes 200mg Take 2 Uni vers 100 mg 0-28 tablets by ity of tablet 00:00: mouth [place] 00 every Medical morning. Branch lamoTRIgine 2020-1 Yes 200mg Take 2 [facility] 100 mg 0-28 tablets by [facility] of tablet 00:00: mouth [place] 00 every Medical morning. Branch lamoTRIgine 2020-1 Yes 200mg Take 2 [facility] 100 mg 0-28 tablets by ity of tablet 00:00: mouth [place] 00 every Medical morning. Branch lamoTRIgine 2020-1 Yes 200mg Take 2 [facility] 100 mg 0-28 tablets by ity of tablet 00:00: mouth [place] 00 every Medical morning. Branch lamoTRIgine 2020-1 Yes 200mg Take 2 [facility] 100 mg 0-28 tablets by ity of tablet 00:00: mouth [place] 00 every Medical morning. Branch lamoTRIgine 2020-1 Yes 200mg Take 2 [facility] 100 mg 0-28 tablets by [facility]y of tablet 00:00: mouth [place] 00 every Medical morning. Branch lamoTRIgine 2020-1 Yes 200mg Take 2 [facility] 100 mg 0-28 tablets by ity of tablet 00:00: mouth [place] 00 every Medical morning. Branch lamoTRIgine 2020-1 Yes 200mg Take 2 [facility] 100 mg 0-28 tablets by ity of tablet 00:00: mouth [place] 00 every Medical morning. Branch lamoTRIgine 2020-1 Yes 200mg Take 2 [facility] 100 mg 0-28 tablets by ity of tablet 00:00: mouth [place] 00 every Medical morning. Branch lamoTRIgine 2019- Yes 200mg Take 2 [facility] 100 mg 0-28 tablets by ity of tablet 00:00: mouth [place] 00 every Medical morning. Branch VENTOLIN 2020-0 Yes INHALE ONE Uni vers HFA 90 9-29 (1) ity of mcg/actuati 00:00: PUFF(S) BY [place] on inhaler 00 MOUTH Medical EVERY FOUR Branch HOURS. VENTOLIN 2020-0 Yes INHALE ONE [facility] vers HFA 90 9-29 (1) ity of mcg/actuati 00:00: PUFF(S) BY [place] on inhaler 00 MOUTH Medical EVERY FOUR Branch HOURS. VENTOLIN 2020-0 Yes INHALE ONE [facility] vers HFA 90 9-29 (1) ity of mcg/actuati 00:00: PUFF(S) BY [place] on inhaler 00 MOUTH Medical EVERY FOUR Branch HOURS. VENTOLIN 2020-0 Yes INHALE ONE [facility] vers HFA 90 9-29 (1) ity of mcg/actuati 00:00: PUFF(S) BY [place] on inhaler 00 MOUTH Medical EVERY FOUR Branch HOURS. VENTOLIN 2020-0 Yes INHALE ONE [facility] vers HFA 90 9-29 (1) ity of mcg/actuati 00:00: PUFF(S) BY [place] on inhaler 00 MOUTH Medical EVERY FOUR Branch HOURS. VENTOLIN 2020-0 Yes INHALE ONE [facility] vers HFA 90 929 (1) ity of mcg/actuati 00:00: PUFF(S) BY [place] on inhaler 00 MOUTH Medical EVERY FOUR Branch HOURS. VENTOLIN 2020-0 Yes INHALE ONE [facility] vers HFA 90 929 (1) ity of mcg/actuati 00:00: PUFF(S) BY [place] on inhaler 00 MOUTH Medical EVERY FOUR Branch HOURS. VENTOLIN 2020-0 Yes INHALE ONE [facility] vers HFA 90 929 (1) ity of mcg/actuati 00:00: PUFF(S) BY [place] on inhaler 00 MOUTH Medical EVERY FOUR Branch HOURS. VENTOLIN 2020-0 Yes INHALE ONE [facility] vers HFA 90 929 (1) ity of mcg/actuati 00:00: PUFF(S) BY [place] on inhaler 00 MOUTH Medical EVERY FOUR Branch HOURS. VENTOLIN 2020-0 Yes INHALE ONE [facility] vers HFA 90 929 (1) ity of mcg/actuati 00:00: PUFF(S) BY [place] on inhaler 00 MOUTH Medical EVERY FOUR Branch HOURS. VENTOLIN 2020-0 Yes INHALE ONE [facility] vers HFA 90 929 (1) ity of mcg/actuati 00:00: PUFF(S) BY [place] on inhaler 00 MOUTH Medical EVERY FOUR Branch HOURS. VENTOLIN 2020-0 Yes INHALE ONE [facility] vers HFA 90 929 (1) ity of mcg/actuati 00:00: PUFF(S) BY [place] on inhaler 00 MOUTH Medical EVERY FOUR Branch HOURS. VENTOLIN 2020-0 Yes INHALE ONE [facility] vers HFA 90 929 (1) ity of mcg/actuati 00:00: PUFF(S) BY [place] on inhaler 00 MOUTH Medical EVERY FOUR Branch HOURS. VENTOLIN 2020-0 Yes INHALE ONE [facility] vers HFA 90 929 (1) ity of mcg/actuati 00:00: PUFF(S) BY [place] on inhaler 00 MOUTH Medical EVERY FOUR Branch HOURS. VENTOLIN 2020-0 Yes INHALE ONE [facility] vers HFA 90 929 (1) ity of mcg/actuati 00:00: PUFF(S) BY [place] on inhaler 00 MOUTH Medical EVERY FOUR Branch HOURS. VENTOLIN 2020-0 Yes INHALE ONE [facility] vers HFA 90 929 (1) ity of mcg/actuati 00:00: PUFF(S) BY [place] on inhaler 00 MOUTH Medical EVERY FOUR Branch HOURS. VENTOLIN 2020-0 Yes INHALE ONE [facility] vers HFA 90 929 (1) ity of mcg/actuati 00:00: PUFF(S) BY [place] on inhaler 00 MOUTH Medical EVERY FOUR Branch HOURS. VENTOLIN 2020-0 Yes INHALE ONE [facility] vers HFA 90 929 (1) ity of mcg/actuati 00:00: PUFF(S) BY [place] on inhaler 00 MOUTH Medical EVERY FOUR Branch HOURS. VENTOLIN 2020-0 Yes INHALE ONE [facility] vers HFA 90 9 (1) ity of mcg/actuati 00:00: PUFF(S) BY [place] on inhaler 00 MOUTH Medical EVERY FOUR Branch HOURS. VENTOLIN 2020-0 Yes INHALE ONE [facility] vers HFA 90 9 (1) ity of mcg/actuati 00:00: PUFF(S) BY [place] on inhaler 00 MOUTH Medical EVERY FOUR Branch HOURS. VENTOLIN 2020-0 Yes INHALE ONE [facility] vers HFA 90 929 (1) ity of mcg/actuati 00:00: PUFF(S) BY [place] on inhaler 00 MOUTH Medical EVERY FOUR Branch HOURS. VENTOLIN 2020-0 Yes INHALE ONE [facility] vers HFA 90 929 (1) ity of mcg/actuati 00:00: PUFF(S) BY [place] on inhaler 00 MOUTH Medical EVERY FOUR Branch HOURS. VENTOLIN 2020-0 Yes INHALE ONE [facility] vers HFA 90 929 (1) ity of mcg/actuati 00:00: PUFF(S) BY [place] on inhaler 00 MOUTH Medical EVERY FOUR Branch HOURS. VENTOLIN 2020-0 Yes INHALE ONE [facility] vers HFA 90 929 (1) ity of mcg/actuati 00:00: PUFF(S) BY [place] on inhaler 00 MOUTH Medical EVERY FOUR Branch HOURS. VENTOLIN 2020-0 Yes INHALE ONE [facility] vers HFA 90 929 (1) ity of mcg/actuati 00:00: PUFF(S) BY [place] on inhaler 00 MOUTH Medical EVERY FOUR Branch HOURS. VENTOLIN 2020-0 Yes INHALE ONE [facility] vers HFA 90 929 (1) ity of mcg/actuati 00:00: PUFF(S) BY [place] on inhaler 00 MOUTH Medical EVERY FOUR Branch HOURS. VENTOLIN 2020-0 Yes INHALE ONE [facility] vers HFA 90 9-29 (1) ity of mcg/actuati 00:00: PUFF(S) BY [place] on inhaler 00 MOUTH Medical EVERY FOUR Branch HOURS. VENTOLIN 2020-0 Yes INHALE ONE [facility] vers HFA 90 9-29 (1) ity of mcg/actuati 00:00: PUFF(S) BY [place] on inhaler 00 MOUTH Medical EVERY FOUR Branch HOURS. VENTOLIN 2020-0 Yes INHALE ONE [facility] vers HFA 90 9-29 (1) ity of mcg/actuati 00:00: PUFF(S) BY [place] on inhaler 00 MOUTH Medical EVERY FOUR Branch HOURS. VENTOLIN 2020-0 Yes INHALE ONE [facility] vers HFA 90 9-29 (1) ity of mcg/actuati 00:00: PUFF(S) BY [place] on inhaler 00 MOUTH Medical EVERY FOUR Branch HOURS. VENTOLIN 2020-0 Yes INHALE ONE [facility] vers HFA 90 929 (1) ity of mcg/actuati 00:00: PUFF(S) BY [place] on inhaler 00 MOUTH Medical EVERY FOUR Branch HOURS. VENTOLIN 2020-0 Yes INHALE ONE [facility] vers HFA 90 929 (1) ity of mcg/actuati 00:00: PUFF(S) BY [place] on inhaler 00 MOUTH Medical EVERY FOUR Branch HOURS. VENTOLIN 2020-0 Yes INHALE ONE [facility] vers HFA 90 9-29 (1) ity of mcg/actuati 00:00: PUFF(S) BY [place] on inhaler 00 MOUTH Medical EVERY FOUR Branch HOURS. VENTOLIN 2020-0 Yes INHALE ONE [facility] vers HFA 90 929 (1) ity of mcg/actuati 00:00: PUFF(S) BY [place] on inhaler 00 MOUTH Medical EVERY FOUR Branch HOURS. VENTOLIN 2020-0 Yes INHALE ONE [facility] vers HFA 90 9-29 (1) ity of mcg/actuati 00:00: PUFF(S) BY [place] on inhaler 00 MOUTH Medical EVERY FOUR Branch HOURS. VENTOLIN 2020-0 Yes INHALE ONE [facility] vers HFA 90 9-29 (1) ity of mcg/actuati 00:00: PUFF(S) BY [place] on inhaler 00 MOUTH Medical EVERY FOUR Branch HOURS. VENTOLIN 2020-0 Yes INHALE ONE [facility] vers HFA 90 9 (1) ity of mcg/actuati 00:00: PUFF(S) BY [place] on inhaler 00 MOUTH Medical EVERY FOUR Branch HOURS. VENTOLIN 2020-0 Yes INHALE ONE [facility] vers HFA 90 9 (1) ity of mcg/actuati 00:00: PUFF(S) BY [place] on inhaler 00 MOUTH Medical EVERY FOUR Branch HOURS. VENTOLIN 2020-0 Yes INHALE ONE [facility] vers HFA 90 9 (1) ity of mcg/actuati 00:00: PUFF(S) BY [place] on inhaler 00 MOUTH Medical EVERY FOUR Branch HOURS. VENTOLIN 2020-0 Yes INHALE ONE [facility] vers HFA 90 9 (1) ity of mcg/actuati 00:00: PUFF(S) BY [place] on inhaler 00 MOUTH Medical EVERY FOUR Branch HOURS. VENTOLIN 2020-0 Yes INHALE ONE [facility] vers HFA 90 06-04 (1) ity of mcg/actuati 00:00: PUFF(S) BY [place] on inhaler 00 MOUTH Medical EVERY FOUR Branch HOURS. VENTOLIN 2020-0 Yes INHALE ONE [facility] vers HFA 90 9 (1) ity of mcg/actuati 00:00: PUFF(S) BY [place] on inhaler 00 MOUTH Medical EVERY FOUR Branch HOURS. VENTOLIN 2020-0 Yes INHALE ONE [facility] vers HFA 90 06-04 (1) ity of mcg/actuati 00:00: PUFF(S) BY [place] on inhaler 00 MOUTH Medical EVERY FOUR Branch HOURS. VENTOLIN 2020-0 Yes INHALE ONE [facility] vers HFA 90 9 (1) ity of mcg/actuati 00:00: PUFF(S) BY [place] on inhaler 00 MOUTH Medical EVERY FOUR Branch HOURS. VENTOLIN 2020-0 Yes INHALE ONE [facility] vers HFA 90 9 (1) ity of mcg/actuati 00:00: PUFF(S) BY [place] on inhaler 00 MOUTH Medical EVERY FOUR Branch HOURS. proMETHazin 2020-0 Yes [id number] 25mg Take 1 [facility] e 25 mg 6-23 tablet by ity of tablet 00:00: mouth [place] 00 every 6 Medical (six) Branch hours as needed for Nausea and Vomiting (N/V). proMETHazin 2020-0 Yes [id number] 25mg Take 1 [facility] e 25 mg 6-23 tablet by ity of tablet 00:00: mouth [place] 00 every 6 Medical (six) Branch hours as needed for Nausea and Vomiting (N/V). proMETHazin 2020-0 Yes [id number] 25mg Take 1 [facility] e 25 mg 6-23 tablet by ity of tablet 00:00: mouth [place] 00 every 6 Medical (six) Branch hours as needed for Nausea and Vomiting (N/V). proMETHazin 2020-0 Yes [id number] 25mg Take 1 [facility] e 25 mg 6-23 tablet by ity of tablet 00:00: mouth [place] 00 every 6 Medical (six) Branch hours as needed for Nausea and Vomiting (N/V). proMETHazin 2020-0 Yes [id number] 25mg Take 1 [facility] e 25 mg 6-23 tablet by ity of tablet 00:00: mouth [place] 00 every 6 Medical (six) Branch hours as needed for Nausea and Vomiting (N/V). proMETHazin 2020-0 Yes [id number] 25mg Take 1 [facility] e 25 mg 6-23 tablet by ity of tablet 00:00: mouth [place] 00 every 6 Medical (six) Branch hours as needed for Nausea and Vomiting (N/V). proMETHazin 2020-0 Yes [id number] 25mg Take 1 [facility] e 25 mg 6-23 tablet by ity of tablet 00:00: mouth [place] 00 every 6 Medical (six) Branch hours as needed for Nausea and Vomiting (N/V). proMETHazin 2020-0 Yes [id number] 25mg Take 1 [facility] e 25 mg 6-23 tablet by ity of tablet 00:00: mouth [place] 00 every 6 Medical (six) Branch hours as needed for Nausea and Vomiting (N/V). proMETHazin 2020-0 Yes [id number] 25mg Take 1 [facility] e 25 mg 6-23 tablet by ity of tablet 00:00: mouth [place] 00 every 6 Medical (six) Branch hours as needed for Nausea and Vomiting (N/V). proMETHazin 2020-0 Yes [id number] 25mg Take 1 [facility] e 25 mg 6-23 tablet by ity of tablet 00:00: mouth [place] 00 every 6 Medical (six) Branch hours as needed for Nausea and Vomiting (N/V). proMETHazin 2020-0 Yes [id number] 25mg Take 1 [facility] e 25 mg 6-23 tablet by ity of tablet 00:00: mouth [place] 00 every 6 Medical (six) Branch hours as needed for Nausea and Vomiting (N/V). proMETHazin 2020-0 Yes [id number] 25mg Take 1 [facility] e 25 mg 6-23 tablet by ity of tablet 00:00: mouth [place] 00 every 6 Medical (six) Branch hours as needed for Nausea and Vomiting (N/V). proMETHazin 2020-0 Yes [id number] 25mg Take 1 [facility] e 25 mg 6-23 tablet by ity of tablet 00:00: mouth [place] 00 every 6 Medical (six) Branch hours as needed for Nausea and Vomiting (N/V). proMETHazin 2020-0 Yes [id number] 25mg Take 1 [facility] e 25 mg 6-23 tablet by ity of tablet 00:00: mouth [place] 00 every 6 Medical (six) Branch hours as needed for Nausea and Vomiting (N/V). proMETHazin 2020-0 Yes [id number] 25mg Take 1 [facility] e 25 mg 6-23 tablet by ity of tablet 00:00: mouth [place] 00 every 6 Medical (six) Branch hours as needed for Nausea and Vomiting (N/V). proMETHazin 2020-0 Yes [id number] 25mg Take 1 [facility] e 25 mg 6-23 tablet by ity of tablet 00:00: mouth [place] 00 every 6 Medical (six) Branch hours as needed for Nausea and Vomiting (N/V). proMETHazin 2020-0 Yes [id number] 25mg Take 1 [facility] e 25 mg 6-23 tablet by ity of tablet 00:00: mouth [place] 00 every 6 Medical (six) Branch hours as needed for Nausea and Vomiting (N/V). proMETHazin 2020-0 Yes [id number] 25mg Take 1 [facility] 25 mg 6-23 tablet by ity of tablet 00:00: mouth [place] 00 every 6 Medical (six) Branch hours as needed for Nausea and Vomiting (N/V). proMETHazin 2020-0 Yes [id number] 25mg Take 1 [facility] 25 mg 6-23 tablet by ity of tablet 00:00: mouth [place] 00 every 6 Medical (six) Branch hours as needed for Nausea and Vomiting (N/V). proMETHazin 2020-0 Yes [id number] 25mg Take 1 [facility] 25 mg 6-23 tablet by ity of tablet 00:00: mouth [place] 00 every 6 Medical (six) Branch hours as needed for Nausea and Vomiting (N/V). proMETHazin 2020-0 Yes [id number] 25mg Take 1 [facility] e 25 mg 6-23 tablet by ity of tablet 00:00: mouth [place] 00 every 6 Medical (six) Branch hours as needed for Nausea and Vomiting (N/V). proMETHazin 2020-0 Yes [id number] 25mg Take 1 [facility] e 25 mg 6-23 tablet by ity of tablet 00:00: mouth [place] 00 every 6 Medical (six) Branch hours as needed for Nausea and Vomiting (N/V). proMETHazin 2020-0 Yes [id number] 25mg Take 1 [facility] e 25 mg 6-23 tablet by ity of tablet 00:00: mouth [place] 00 every 6 Medical (six) Branch hours as needed for Nausea and Vomiting (N/V). proMETHazin 2020-0 Yes [id number] 25mg Take 1 [facility] e 25 mg 6-23 tablet by ity of tablet 00:00: mouth [place] 00 every 6 Medical (six) Branch hours as needed for Nausea and Vomiting (N/V). proMETHazin 2020-0 Yes [id number] 25mg Take 1 [facility] e 25 mg 6-23 tablet by ity of tablet 00:00: mouth [place] 00 every 6 Medical (six) Branch hours as needed for Nausea and Vomiting (N/V). proMETHazin 2020-0 Yes [id number] 25mg Take 1 [facility] e 25 mg 6-23 tablet by ity of tablet 00:00: mouth [place] 00 every 6 Medical (six) Branch hours as needed for Nausea and Vomiting (N/V). proMETHazin 2020-0 Yes [id number] 25mg Take 1 [facility] e 25 mg 6-23 tablet by ity of tablet 00:00: mouth [place] 00 every 6 Medical (six) Branch hours as needed for Nausea and Vomiting (N/V). proMETHazin 2020-0 Yes [id number] 25mg Take 1 [facility] e 25 mg 6-23 tablet by ity of tablet 00:00: mouth [place] 00 every 6 Medical (six) Branch hours as needed for Nausea and Vomiting (N/V). proMETHazin 2020-0 Yes [id number] 25mg Take 1 [facility] 25 mg 6-23 tablet by ity of tablet 00:00: mouth [place] 00 every 6 Medical (six) Branch hours as needed for Nausea and Vomiting (N/V). proMETHazin 2020-0 Yes [id number] 25mg Take 1 [facility] e 25 mg 6-23 tablet by ity of tablet 00:00: mouth [place] 00 every 6 Medical (six) Branch hours as needed for Nausea and Vomiting (N/V). proMETHazin 2020-0 Yes [id number] 25mg Take 1 [facility] e 25 mg 6-23 tablet by ity of tablet 00:00: mouth [place] 00 every 6 Medical (six) Branch hours as needed for Nausea and Vomiting (N/V). proMETHazin 2020-0 Yes [id number] 25mg Take 1 [facility] 25 mg 6-23 tablet by ity of tablet 00:00: mouth [place] 00 every 6 Medical (six) Branch hours as needed for Nausea and Vomiting (N/V). proMETHazin 2020-0 Yes [id number] 25mg Take 1 [facility] e 25 mg 6-23 tablet by ity of tablet 00:00: mouth [place] 00 every 6 Medical (six) Branch hours as needed for Nausea and Vomiting (N/V). proMETHazin 2020-0 Yes [id number] 25mg Take 1 [facility] 25 mg 6-23 tablet by ity of tablet 00:00: mouth [place] 00 every 6 Medical (six) Branch hours as needed for Nausea and Vomiting (N/V). proMETHazin 2020-0 Yes [id number] 25mg Take 1 [facility] e 25 mg 6-23 tablet by ity of tablet 00:00: mouth [place] 00 every 6 Medical (six) Branch hours as needed for Nausea and Vomiting (N/V). proMETHazin 2020-0 Yes [id number] 25mg Take 1 [facility] 25 mg 6-23 tablet by ity of tablet 00:00: mouth [place] 00 every 6 Medical (six) Branch hours as needed for Nausea and Vomiting (N/V). proMETHazin 2020-0 Yes [id number] 25mg Take 1 [facility] 25 mg 6-23 tablet by ity of tablet 00:00: mouth [place] 00 every 6 Medical (six) Branch hours as needed for Nausea and Vomiting (N/V). proMETHazin 2020-0 Yes [id number] 25mg Take 1 [facility] 25 mg 6-23 tablet by ity of tablet 00:00: mouth [place] 00 every 6 Medical (six) Branch hours as needed for Nausea and Vomiting (N/V). proMETHazin 2020-0 Yes [id number] 25mg Take 1 [facility] 25 mg 6-23 tablet by ity of tablet 00:00: mouth [place] 00 every 6 Medical (six) Branch hours as needed for Nausea and Vomiting (N/V). proMETHazin 2020-0 Yes [id number] 25mg Take 1 [facility] 25 mg 6-23 tablet by ity of tablet 00:00: mouth [place] 00 every 6 Medical (six) Branch hours as needed for Nausea and Vomiting (N/V). proMETHazin 2020-0 Yes [id number] 25mg Take 1 [facility] 25 mg 6-23 tablet by ity of tablet 00:00: mouth [place] 00 every 6 Medical (six) Branch hours as needed for Nausea and Vomiting (N/V). proMETHazin 2020-0 Yes [id number] 25mg Take 1 [facility] 25 mg 6-23 tablet by ity of tablet 00:00: mouth [place] 00 every 6 Medical (six) Branch hours as needed for Nausea and Vomiting (N/V). proMETHazin 2020-0 Yes [id number] 25mg Take 1 [facility] 25 mg 6-23 tablet by ity of tablet 00:00: mouth [place] 00 every 6 Medical (six) Branch hours as needed for Nausea and Vomiting (N/V). proMETHazin 2020-0 Yes [id number] 25mg Take 1 [facility] 25 mg 6-23 tablet by ity of tablet 00:00: mouth [place] 00 every 6 Medical (six) Branch hours as needed for Nausea and Vomiting (N/V). proMETHazin 2020-0 Yes [id number] 25mg Take 1 [facility] 25 mg 6-23 tablet by ity of tablet 00:00: mouth [place] 00 every 6 Medical (six) Branch hours as needed for Nausea and Vomiting (N/V). hydrOXYzine 2019-1 Yes Univer s 25 mg 2-06 ity of capsule 00:00: [place] 00 Medical Branch hydrOXYzine 2019-1 Yes Univer s 25 mg 2-06 ity of capsule 00:00: [place] 00 Medical Branch hydrOXYzine 2019- Yes Univer s 25 mg 2-06 ity of capsule 00:00: [place] 00 Medical Branch hydrOXYzine 2018- Yes Univer s 25 mg 2-06 ity of capsule 00:00: [place] [facility] hydrOXYzine 2019- Yes Univer s 25 mg 2-06 ity of capsule 00:00: [place] [facility] hydrOXYzine 2019- Yes Univer s 25 mg 2-06 ity of capsule 00:00: [place] [facility] hydrOXYzine 2018- Yes Univer s 25 mg 2-06 ity of capsule 00:00: [place] [facility] hydrOXYzine 2018- Yes 25mg Take 25 mg [facility] 25 mg 2-06 by mouth 3 ity of capsule 00:00: (three) [place] 00 times Medical daily as Branch needed for Itching. hydrOXYzine 2018- Yes 25mg Take 25 mg [facility] 25 mg 2-06 by mouth 3 ity of capsule 00:00: (three) [place] 00 times Medical daily as Branch needed for Itching. hydrOXYzine 2018- Yes 25mg Take 25 mg [facility] 25 mg 2-06 by mouth 3 ity of capsule 00:00: (three) [place] 00 times Medical daily as Branch needed for Itching. hydrOXYzine 2018- Yes 25mg Take 25 mg [facility] 25 mg 2-06 by mouth 3 ity of capsule 00:00: (three) [place] 00 times Medical daily as Branch needed for Itching. hydrOXYzine 2018- Yes 25mg Take 25 mg [facility] 25 mg 2-06 by mouth 3 ity of capsule 00:00: (three) [place] 00 times Medical daily as Branch needed for Itching. hydrOXYzine 2018- Yes 25mg Take 25 mg [facility] 25 mg 2-06 by mouth 3 ity of capsule 00:00: (three) [place] 00 times Medical daily as Branch needed for Itching. hydrOXYzine 2018- Yes 25mg Take 25 mg [facility] 25 mg 2-06 by mouth 3 ity of capsule 00:00: (three) [place] 00 times Medical daily as Branch needed for Itching. hydrOXYzine 2018- Yes 25mg Take 25 mg [facility] 25 mg 2-06 by mouth 3 ity of capsule 00:00: (three) [place] 00 times Medical daily as Branch needed for Itching. hydrOXYzine 2018- Yes 25mg Take 25 mg [facility] 25 mg 2-06 by mouth 3 ity of capsule 00:00: (three) [place] 00 times Medical daily as Branch needed for Itching. hydrOXYzine 2018-1 Yes 25mg Take 25 mg [facility] 25 mg 2-06 by mouth 3 ity of capsule 00:00: (three) [place] 00 times Medical daily as Branch needed for Itching. hydrOXYzine 2019-1 Yes 25mg Take 25 mg [facility] 25 mg 2-06 by mouth 3 ity of capsule 00:00: (three) [place] 00 times Medical daily as Branch needed for Itching. hydrOXYzine 2018-1 Yes 25mg Take 25 mg [facility] 25 mg 2-06 by mouth 3 ity of capsule 00:00: (three) [place] 00 times Medical daily as Branch needed for Itching. hydrOXYzine 2018- Yes 25mg Take 25 mg [facility] 25 mg 2-06 by mouth 3 ity of capsule 00:00: (three) [place] 00 times Medical daily as Branch needed for Itching. hydrOXYzine 2018- Yes 25mg Take 25 mg [facility] 25 mg 2-06 by mouth 3 ity of capsule 00:00: (three) [place] 00 times Medical daily as Branch needed for Itching. hydrOXYzine 2018- Yes 25mg Take 25 mg [facility] 25 mg 2-06 by mouth 3 ity of capsule 00:00: (three) [place] 00 times Medical daily as Branch needed for Itching. hydrOXYzine 2018- Yes 25mg Take 25 mg [facility] 25 mg 2-06 by mouth 3 ity of capsule 00:00: (three) [place] 00 times Medical daily as Branch needed for Itching. hydrOXYzine 2018- Yes 25mg Take 25 mg [facility] 25 mg 2-06 by mouth 3 ity of capsule 00:00: (three) [place] 00 times Medical daily as Branch needed for Itching. hydrOXYzine 2018- Yes 25mg Take 25 mg [facility] 25 mg 2-06 by mouth 3 ity of capsule 00:00: (three) [place] 00 times Medical daily as Branch needed for Itching. hydrOXYzine 2018-1 Yes 25mg Take 25 mg [facility] 25 mg 2-06 by mouth 3 ity of capsule 00:00: (three) [place] 00 times Medical daily as Branch needed for Itching. hydrOXYzine 2018- Yes 25mg Take 1 [facility] 25 mg 2-06 capsule by ity of capsule 00:00: mouth 3 [place] 00 (three) Medical times Branch daily as needed for Itching. hydrOXYzine 2018-09 Yes 25mg Take 1 [facility] 25 mg 2-06 capsule by ity of capsule 00:00: mouth 3 [place] 00 (three) Medical times Branch daily as needed for Itching. hydrOXYzine 2018-09 Yes 25mg Take 1 [facility] 25 mg 2-06 capsule by ity of capsule 00:00: mouth 3 [place] 00 (three) Medical times Branch daily as needed for Itching. hydrOXYzine 2018-09 Yes 25mg Take 1 [facility] 25 mg 2-06 capsule by ity of capsule 00:00: mouth 3 [place] 00 (three) Medical times Branch daily as needed for Itching. hydrOXYzine 2018-09 Yes 25mg Take 1 [facility] 25 mg 2-06 capsule by ity of capsule 00:00: mouth 3 [place] (three) Medical times Branch daily as needed for Itching. hydrOXYzine 2018-09 Yes 25mg Take 1 [facility] 25 mg 2-06 capsule by ity of capsule 00:00: mouth 3 (three) Medical times Branch daily as needed for Itching. hydrOXYzine 2018-09 Yes 25mg Take 1 [facility] 25 mg 2-06 capsule by ity of capsule 00:00: mouth 3 (three) Medical times Branch daily as needed for Itching. hydrOXYzine 2018-09 Yes 25mg Take 1 [facility] 25 mg 2-06 capsule by ity of capsule 00:00: mouth 3 (three) Medical times Branch daily as needed for Itching. hydrOXYzine 2018-09 Yes 25mg Take 1 [facility] 25 mg 2-06 capsule by ity of capsule 00:00: mouth 3 (three) Medical times Branch daily as needed for Itching. hydrOXYzine 2018-09 Yes 25mg Take 1 [facility] 25 mg 2-06 capsule by ity of capsule 00:00: mouth 3 [place] 00 (three) Medical times Branch daily as needed for Itching. hydrOXYzine 2018-09 Yes 25mg Take 1 [facility] 25 mg 2-06 capsule by ity of capsule 00:00: mouth 3 [place] 00 (three) Medical times Branch daily as needed for Itching. hydrOXYzine 2018-09 Yes 25mg Take 1 [facility] 25 mg 2-06 capsule by ity of capsule 00:00: mouth 3 [place] 00 (three) Medical times Branch daily as needed for Itching. hydrOXYzine 2018-09 Yes 25mg Take 1 [facility] 25 mg 2-06 capsule by ity of capsule 00:00: mouth 3 [place] 00 (three) Medical times Branch daily as needed for Itching. hydrOXYzine 2018-09 Yes 25mg Take 1 [facility] 25 mg 2-06 capsule by ity of capsule 00:00: mouth 3 [place] 00 (three) Medical times Branch daily as needed for Itching. hydrOXYzine 2018-09 Yes 25mg Take 1 [facility] 25 mg 2-06 capsule by ity of capsule 00:00: mouth 3 [place] 00 (three) Medical times Branch daily as needed for Itching. hydrOXYzine 2018-09 Yes 25mg Take 1 [facility] 25 mg 2-06 capsule by ity of capsule 00:00: mouth 3 [place] 00 (three) Medical times Branch daily as needed for Itching. hydrOXYzine 2018-09 Yes 25mg Take 1 [facility] 25 mg 2-06 capsule by ity of capsule 00:00: mouth 3 [place] 00 (three) Medical times Branch daily as needed for Itching. hydrOXYzine 2018-09 Yes 25mg Take 1 [facility] 25 mg 2-06 capsule by ity of capsule 00:00: mouth 3 [place] 00 (three) Medical times Branch daily as needed for Itching. hydrOXYzine 2018-09 Yes 25mg Take 1 [facility] 25 mg 2-06 capsule by ity of capsule 00:00: mouth 3 [place] 00 (three) Medical times Branch daily as needed for Itching. TERRI 2018-09 Yes INJECT Unive rs mg/0.5 mL 1-26 45MG (1 ity of SC 00:00: SYRINGE) [place] injection 00 SUBCUTANEO Medi abhishek USLY EVERY Branch 8 WEEKS. STEENOC 2018-09 Yes INJECT Unive rs mg/0.5 mL [...] abhishek USLY EVERY Branch 8 WEEKS. TERRI 2018-09 Yes INJECT Unive rs mg/0.5 mL [...] abhishek USLY EVERY Branch 8 WEEKS. TERRI 2018-09 Yes INJECT Unive rs mg/0.5 mL 1-26 45MG (1 [facility] of [place] 00:00: SYRINGE) [place] injection 00 SUBCUTANEO Medi abhishek USLY EVERY Branch 8 WEEKS. TERRI 2018-09 Yes INJECT Unive rs mg/0.5 mL 1-26 45MG (1 ity of [place] 00:00: SYRINGE) [place] injection 00 SUBCUTANEO Medi abhishek USLY EVERY Branch 8 WEEKS. TERRI 45 2018-09 Yes INJECT Unive rs mg/0.5 mL 1-26 45MG (1 [facility]y of [place] 00:00: SYRINGE) [place] injection 00 SUBCUTANEO Medi abhishek USLY EVERY Branch 8 WEEKS. [facility] Yes INJECT Unive rs mg/0.5 [...] Medi abhishek USLY EVERY Branch 8 WEEKS. [facility] IN[facility]ive rs mg/0.5 mL 1-26 45MG (1 ity of [place] 00:00: SYRINGE) [place] injection 00 SUBCUTANEO Medi abhishek USLY EVERY Branch 8 WEEKS. TERRI 2018-09 Yes INJECT Unive rs mg/0.5 mL 1-26 45MG (1 [facility] [place] 00:00: SYRINGE) [place] injection 00 SUBCUTANEO Medi abhishek USLY EVERY Branch 8 [facility]EEKS. [facility] Unive rs mg/0.5 mL 1-26 45MG (1 [facility] [place] 00:00: SYRINGE) [place] injection 00 SUBCUTANEO Medi abhishek USLY EVERY Branch 8 WEEKS. [facility] Unive rs mg/0.5 mL 1-26 45MG (1 [facility] of [place] 00:00: SYRINGE) [place] injection 00 SUBCUTANEO Medi abhishek USLY EVERY Branch 8 WEEKS. [facility] INJECT Unive rs mg/0.5 mL 1-26 45MG (1 [facility] of [place] 00:00: SYRINGE) [place] injection 00 SUBCUTANEO Medi abhishek USLY EVERY Branch 8 WEEKS. [facility] INJECT Unive rs mg/0.5 mL 1-26 45MG (1 [facility]y of [place] 00:00: SYRINGE) [place] injection 00 SUBCUTANEO Medi abhishek USLY EVERY Branch 8 WEEKS. [facility] INJECT Unive rs mg/0.5 mL 1-26 45MG (1 [facility]y of [place] 00:00: SYRINGE) [place] injection 00 SUBCUTANEO Medi abhishek USLY EVERY Branch 8 WEEKS. TERRI 2018-09 Yes INJECT Unive rs mg/0.5 mL 1-26 45MG (1 [facility]y of [place] 00:00: SYRINGE) [place] injection 00 SUBCUTANEO Medi abhishek USLY EVERY Branch 8 WEEKS. TERRI 2018-09 Yes INJECT Unive rs mg/0.5 mL [...] abhishek USLY EVERY Branch 8 WEEKS. TERRI 2018-09 Yes INJECT Unive rs mg/0.5 mL 1-26 45MG (1 [facility]y of [place] 00:00: SYRINGE) [place] injection 00 SUBCUTANEO Medi abhishek USLY EVERY Branch 8 WEEKS. TERRI 2018-09 Yes INJECT Unive rs mg/0.5 mL 1-26 45MG (1 [facility]y of [place] 00:00: SYRINGE) [place] injection 00 SUBCUTANEO Medi abhishek USLY EVERY Branch 8 WEEKS. TERRI 2018-09 Yes INJECT Unive rs mg/0.5 mL 1-26 45MG (1 [facility]y of [place] 00:00: SYRINGE) [place] injection 00 SUBCUTANEO Medi abhishek USLY EVERY Branch 8 WEEKS. TERRI 2018-09 Yes INJECT Unive rs mg/0.5 mL 1-26 45MG (1 [facility]y of [place] 00:00: SYRINGE) [place] injection 00 SUBCUTANEO Medi abhishek USLY EVERY Branch 8 WEEKS. TERRI 2018-09 Yes INJECT Unive rs mg/0.5 mL 1-26 45MG (1 ity of [place] 00:00: SYRINGE) [place] injection 00 SUBCUTANEO Medi abhishek USLY EVERY Branch 8 WEEKS. TERRI 45 2018-09 Yes INJECT Unive rs mg/0.5 mL 1-26 45MG (1 [facility]y of [place] 00:00: SYRINGE) [place] injection 00 SUBCUTANEO Medi abhishek USLY EVERY Branch 8 WEEKS. TERRI 2018-09 Yes INJECT Unive rs mg/0.5 mL [...] Immunizations Ordered Filled Immunization Date Status Comments [facility] e Immunization Name Name Influenza Virus 2020-06-23 Completed [facility] .5 mL 00:00:00 [place] [facility] Influenza Virus 2020-06-23 Completed [facility] .5 mL 00:00:00 [place] [facility] Influenza Virus 2020-06-23 Completed [facility] .5 mL 00:00:00 [place] [facility] Influenza Virus 2020-06-23 Completed [facility] .5 mL 00:00:00 [place] [facility] Influenza Virus 2020-06-23 Completed [facility] .5 mL 00:00:00 [place] [facility] Influenza Virus 2020-06-23 Completed [facility] .5 mL 00:00:00 [place] [facility] Influenza Virus 2020-06-23 Completed [facility] .5 mL 00:00:00 [place] [facility] Influenza Virus 2020-06-23 Completed [facility] .5 mL 00:00:00 [place] [facility] Influenza Virus 2020-06-23 Completed [facility] .5 mL 00:00:00 [place] [facility] Influenza Virus 2020-06-23 Completed [facility] .5 mL 00:00:00 [place] [facility] Influenza Virus 2020-06-23 Completed [facility] .5 mL 00:00:00 [place] [facility] Influenza Virus 2020-06-23 Completed [facility] .5 mL 00:00:00 [place] [facility] Influenza Virus 2020-06-23 Completed [facility] .5 mL 00:00:00 [place] [facility] Influenza Virus 2020-06-23 Completed [facility] .5 mL 00:00:00 [place] [facility] Influenza Virus 2020-06-23 Completed [facility] .5 mL 00:00:00 [place] [facility] Influenza Virus 2020-06-23 Completed [facility] .5 mL 00:00:00 [place] [facility] Influenza Virus 2020-06-23 Completed [facility] .5 mL 00:00:00 [place] [facility] Influenza Virus 2020-06-23 Completed [facility] .5 mL 00:00:00 [place] [facility] Influenza Virus 2020-06-23 Completed [facility] .5 mL 00:00:00 [place] [facility] Influenza Virus 2020-06-23 Completed [facility] .5 mL 00:00:00 [place] [facility] Influenza Virus 2020-06-23 Completed [facility] .5 mL 00:00:00 [place] [facility] Influenza Virus 2020-06-23 Completed [facility] .5 mL 00:00:00 [place] [facility] Influenza Virus 2020-06-23 Completed [facility] .5 mL 00:00:00 [place] [facility] Influenza Virus 2020-06-23 Completed [facility] .5 mL 00:00:00 [place] [facility] Influenza Virus 2020-06-23 Completed [facility] .5 mL 00:00:00 [place] [facility] Influenza Virus 2020-06-23 Completed [facility] .5 mL 00:00:00 [place] [facility] Influenza Virus 2020-06-23 Completed [facility] .5 mL 00:00:00 [place] [facility] MO [facility] Influenza Virus 2020-06-23 Completed [facility] .5 mL 00:00:00 [place] [facility] Influenza Virus 2020-06-23 Completed [facility] .5 mL 00:00:00 [place] [facility] Influenza Virus 2020-06-23 Completed [facility] of [facility] .5 mL 00:00:00 [place] [facility] Influenza Virus 2020-06-23 Completed [facility] .5 mL 00:00:00 [place] [facility] Influenza Virus 2020-06-23 Completed [facility] .5 mL 00:00:00 [place] [facility] Influenza Virus 2020-06-23 Completed [facility] .5 mL 00:00:00 [place] [facility] MO [facility] Influenza Virus 2020-06-23 Completed [facility] .5 mL 00:00:00 [place] [facility] Influenza Virus 2020-06-23 Completed [facility] .5 mL 00:00:00 [place] [facility] Influenza Virus 2020-06-23 Completed [facility] .5 mL 00:00:00 [place] [facility] Influenza Virus 2020-06-23 Completed [facility] .5 mL 00:00:00 [place] [facility] MO [facility] Influenza Virus 2020-06-23 Completed [facility] .5 mL 00:00:00 [place] [facility] MO [facility] Influenza Virus 2020-06-23 Completed [facility] of [facility] .5 mL 00:00:00 [place] [facility] Influenza Virus 2020-06-23 Completed [facility] .5 mL 00:00:00 [place] [facility] MO [facility] Influenza Virus 2020-06-23 Completed [facility] .5 mL 00:00:00 [place] [facility] MO [facility] Influenza Virus 2020-06-23 Completed [facility] .5 mL 00:00:00 [place] [facility] MO [facility] Influenza Virus 2020-06-23 Completed Universit y of [facility] .5 mL 00:00:00 [place] [facility] MO [facility] Influenza Virus 2020-06-23 Completed [facility] .5 mL 00:00:00 [place] [facility] Influenza Virus 2020-06-23 Completed [facility]it y of [facility] .5 mL 00:00:00 [place] [facility] MO [facility] Influenza Virus 2019-08-06 Completed Universit y of Vaccine 00:00:00 [facility] Influenza Virus 2019-08-06 Completed Universit y of Vaccine 00:00:00 [facility] Influenza Virus 2019-08-06 Completed Universit y of Vaccine 00:00:00 [facility] Influenza Virus 2019-08-06 Completed Universit y of Vaccine 00:00:00 [facility] Influenza Virus 2019-08-06 Completed Universit y of Vaccine 00:00:00 [facility] Influenza Virus 2019-08-06 Completed Universit y of Vaccine 00:00:00 [facility] Influenza Virus 2019-08-06 Completed Universit y of Vaccine 00:00:00 [facility] Influenza Virus 2019-08-06 Completed Universit y of Vaccine 00:00:00 [facility] Influenza Virus 2019-08-06 Completed Universit y of Vaccine 00:00:00 [facility] Influenza Virus 2019-08-06 Completed Universit y of Vaccine 00:00:00 [facility] Influenza Virus 2019-08-06 Completed Universit y of Vaccine 00:00:00 [facility] Influenza Virus 2019-08-06 Completed Universit y of Vaccine 00:00:00 [facility] Influenza Virus 2019-08-06 Completed Universit y of Vaccine 00:00:00 [facility] Influenza Virus 2019-08-06 Completed Universit y of Vaccine 00:00:00 [facility] Influenza Virus 2019-08-06 Completed Universit y of Vaccine 00:00:00 [facility] Influenza Virus 2019-08-06 Completed Universit y of Vaccine 00:00:00 [facility] Influenza Virus 2019-08-06 Completed Universit y of Vaccine 00:00:00 [facility] Influenza Virus 2019-08-06 Completed Universit y of Vaccine 00:00:00 [facility] Influenza Virus 2019-08-06 Completed Universit y of Vaccine 00:00:00 [facility] Influenza Virus 2019-08-06 Completed Universit y of Vaccine 00:00:00 [facility] Influenza Virus 2019-08-06 Completed Universit y of Vaccine 00:00:00 [facility] Influenza Virus 2019-08-06 Completed Universit y of Vaccine 00:00:00 [facility] Influenza Virus 2019-08-06 Completed Universit y of Vaccine 00:00:00 [facility] Influenza Virus 2019-08-06 Completed Universit y of Vaccine 00:00:00 [facility] Influenza Virus 2019-08-06 Completed Universit y of Vaccine 00:00:00 [facility] Influenza Virus 2019-08-06 Completed Universit y of Vaccine 00:00:00 [facility] Influenza Virus 2019-08-06 Completed Universit y of Vaccine 00:00:00 [facility] Influenza Virus 2019-08-06 Completed Universit y of Vaccine 00:00:00 [facility] Influenza Virus 2019-08-06 Completed Universit y of Vaccine 00:00:00 [facility] Influenza Virus 2019-08-06 Completed Universit y of Vaccine 00:00:00 [facility] Influenza Virus 2019-08-06 Completed Universit y of Vaccine 00:00:00 [facility] Influenza Virus 2019-08-06 Completed Universit y of Vaccine 00:00:00 [facility] Influenza Virus 2019-08-06 Completed Universit y of Vaccine 00:00:00 [facility] Influenza Virus 2019-08-06 Completed Universit y of Vaccine 00:00:00 [facility] Influenza Virus 2019-08-06 Completed Universit y of Vaccine 00:00:00 [facility] Influenza Virus 2019-08-06 Completed Universit y of Vaccine 00:00:00 [facility] Influenza Virus 2019-08-06 Completed Universit y of Vaccine 00:00:00 [facility] Influenza Virus 2019-08-06 Completed Universit y of Vaccine 00:00:00 [facility] Influenza Virus 2019-08-06 Completed Universit y of Vaccine 00:00:00 [facility] Influenza Virus 2019-08-06 Completed Universit y of Vaccine 00:00:00 [facility] Influenza Virus 2019-08-06 Completed Universit y of Vaccine 00:00:00 [facility] Influenza Virus 2019-08-06 Completed Universit y of Vaccine 00:00:00 [facility] Influenza Virus 2019-08-06 Completed Universit y of Vaccine 00:00:00 [facility] Influenza Virus 2019-08-06 Completed Universit y of Vaccine 00:00:00 [facility] Influenza Virus 2019-08-06 Completed Universit y of Vaccine 00:00:00 [facility] Vital Signs Vital Name Observation Time Observation Value Comments Source Systolic blood 2023-02-04 15:56:00 128 mm[Hg] Univer sity of pressure [facility] Diastolic blood 2023-02-04 15:56:00 84 mm[Hg] Unive rsity of pressure [facility] Heart rate 2023-02-04 15:56:00 112 /[facility] Respiratory rate 2023-02-04 15:56:00 18 /min Univ ersity of [facility] Body height 2023-02-04 15:56:00 160 [facility] [place] [facility] Body weight 2023-02-04 15:56:00 87.544 kg [facility] [place] [facility] BMI 2023-02-04 15:56:00 34.19 kg/m2 [facility] [place] [facility] Oxygen saturation in 2023-02-04 15:56:00 97 /min [facility] of Arterial blood by [facility] Pulse oximetry Branch Systolic blood 2023-01-02 14:49:00 140 mm[Hg] Univer sity of pressure [facility] Diastolic blood 2023-01-02 14:49:00 83 mm[Hg] Unive rsity of pressure [facility] Heart rate 2023-01-02 14:48:00 104 /min [facility]i [facility] [place] [facility] Body temperature 2023-01-02 14:48:00 37.5 Lashawn Univ ersity of [place] [facility] Respiratory rate 2023-01-02 14:48:00 17 /min Univ ersity of [facility] Body height 2023-01-02 14:48:00 160 cm [facility] Body weight 2023-01-02 14:48:00 89.359 kg [facility] [place] [facility] BMI 2023-01-02 14:48:00 34.90 kg/m2 [facility] [place] [facility] Oxygen saturation in 2023-01-02 14:48:00 98 /min [facility] Arterial blood by [facility] Pulse oximetry Branch Systolic blood 2022-12-07 18:30:00 165 mm[Hg] Univer sity of pressure [facility] Diastolic blood 2022-12-07 18:30:00 108 mm[Hg] Unive rsity of pressure [facility] Heart rate 2022-12-07 18:30:00 110 /min [facility] [place] [facility] Respiratory rate 2022-12-07 18:30:00 17 /min Univ ersity of [facility] Oxygen saturation in 2022-12-07 18:30:00 98 /min [facility] Arterial blood by [facility] abhishek Pulse oximetry Branch Body temperature 2022-12-07 17:17:00 38.17 Lashawn Univ ersity of [place] [facility] Body height 2022-12-07 17:10:00 162.6 cm [facility] [place] [facility] Body weight 2022-12-07 17:10:00 87.544 kg [facility] [place] [facility] BMI 2022-12-07 17:10:00 33.13 kg/m2 [facility] [place] [facility] Systolic blood 2022-11-26 16:28:00 133 mm[Hg] Univer sity of pressure [facility] Diastolic blood 2022-11-26 16:28:00 86 mm[Hg] Unive rsity of pressure [facility] Heart rate 2022-11-26 16:26:00 99 /min [facility] [place] [facility] Respiratory rate 2022-11-26 16:26:00 18 /min Univ ersity of [place] [facility] Body height 2022-11-26 16:26:00 157.5 cm [facility] [place] [facility] Body weight 2022-11-26 16:26:00 87.544 kg [facility] [place] [facility] BMI 2022-11-26 16:26:00 35.30 kg/m2 [facility] [place] [facility] Oxygen saturation in 2022-11-26 16:26:00 97 /min [facility] Arterial blood by [facility] Pulse oximetry Branch Systolic blood 2022-11-12 16:25:00 151 mm[Hg] Univer sity of pressure [facility] Diastolic blood 2022-11-12 16:25:00 92 mm[Hg] Unive rsity of pressure [facility] Heart rate 2022-11-12 16:25:00 95 /min [facility] [place] [facility] Oxygen saturation in 2022-11-12 16:25:00 97 /min [facility] Arterial blood by [facility] Pulse oximetry Branch Body temperature 2022-11-12 16:23:00 36.5 Lashawn Univ ers[facility] of [place] [facility] Respiratory rate 2022-11-12 16:23:00 18 /min Univ ersity of [facility] Body height 2022-11-12 16:23:00 157.5 cm [facility] [place] [facility] Body weight 2022-11-12 16:23:00 85.639 kg [facility] [place] [facility] BMI 2022-11-12 16:23:00 34.53 kg/m2 [facility] [place] [facility] Systolic blood 2022-11-10 15:41:00 134 mm[Hg] Univer sity of pressure [facility] Diastolic blood 2022-11-10 15:41:00 83 mm[Hg] Unive rsity of pressure [place] [facility] Heart rate 2022-11-10 15:41:00 102 /min [facility] Body temperature 2022-11-10 15:41:00 37.39 Lashawn [facility] [place] [facility] Respiratory rate 2022-11-10 15:41:00 18 /min Univ ers[facility] Body height 2022-11-10 15:41:00 157.5 cm [facility] [place] [facility] Body weight 2022-11-10 15:41:00 86.212 kg [facility] [place] [facility] BMI 2022-11-10 15:41:00 34.76 kg/m2 [facility] [place] [facility] Oxygen saturation in 2022-11-10 15:41:00 100 /min [facility] by [place] [employer] [facility] Pulse oximetry Branch Systolic blood 2022-11-05 14:46:00 136 mm[Hg] Univer sity of pressure [facility] Diastolic blood 2022-11-05 14:46:00 88 mm[Hg] Unive rsity of pressure [facility] Heart rate 2022-11-05 14:46:00 90 /min [facility] [place] [facility] Body temperature 2022-11-05 14:46:00 36.56 Lashawn [facility] [place] [facility] Respiratory rate 2022-11-05 14:46:00 18 /min Univ ers[facility] Body height 2022-11-05 14:46:00 157.5 cm [facility] [place] [facility] Body weight 2022-11-05 14:46:00 86.274 kg [facility] [place] [facility] BMI 2022-11-05 14:46:00 34.79 kg/m2 [facility] Oxygen saturation in 2022-11-05 14:46:00 98 /min [facility] Ar[facility] blood by [place] [employer] abhishek Pulse oximetry Branch Systolic blood 2022-09-27 11:30:00 161 mm[Hg] Univer sity of pressure [facility] Diastolic blood 2022-09-27 11:30:00 85 mm[Hg] Unive rsity of pressure [facility] Heart rate 2022-09-27 11:30:00 116 /min [facility] [place] [facility] Respiratory rate 2022-09-27 11:30:00 19 /min Univ ers[facility] [place] [facility] Oxygen saturation in 2022-09-27 11:30:00 95 /min [facility] blood by [place] [employer] [facility]hishek Pulse oximetry Branch Body temperature 2022-09-27 07:27:00 38 Lashawn [facility] Body weight 2022-09-27 07:00:00 90.719 kg [facility] BMI 2022-09-27 07:00:00 33.28 kg/m2 [facility] [place] [facility] Systolic blood 2022-09-20 03:00:00 130 mm[Hg] Univer sity of pressure [facility] Diastolic blood 2022-09-20 03:00:00 65 mm[Hg] Unive rsity of pressure [facility] Heart rate 2022-09-20 03:00:00 106 /min [facility] Respiratory rate 2022-09-20 03:00:00 21 /min [facility] Oxygen saturation in 2022-09-20 03:00:00 94 /min [facility] Arterial blood by [facility] Pulse oximetry Branch Body temperature 2022-09-20 00:10:00 37.94 Lashawn Univ [facility] Body height 2022-09-20 00:10:00 165.1 cm [facility] Body weight 2022-09-20 00:10:00 87.544 kg [facility] BMI 2022-09-20 00:10:00 32.12 kg/m2 [facility] [place] [facility] Systolic blood 2022-09-11 14:52:00 143 mm[Hg] Univer sity of pressure [facility] Diastolic blood 2022-09-11 14:52:00 83 mm[Hg] Unive rsity of pressure [facility] Heart rate 2022-09-11 14:52:00 98 /min [facility] Body temperature 2022-09-11 14:52:00 36.94 Lashawn [facility] Respiratory rate 2022-09-11 14:52:00 20 /min Univ [facility] Body height 2022-09-11 14:52:00 160 cm [facility] Body weight 2022-09-11 14:52:00 87.544 kg [facility] [place] [facility] BMI 2022-09-11 14:52:00 34.19 kg/m2 [facility] [place] [facility] Oxygen saturation in 2022-09-11 14:52:00 98 /min [facility] Arterial blood by [facility] Pulse oximetry Branch Heart rate 2022-08-29 04:25:00 93 /min [facility] Respiratory rate 2022-08-29 04:25:00 21 /min Univ ers[facility] Oxygen saturation in 2022-08-29 04:25:00 95 /min [facility] Arterial blood by [facility] Pulse oximetry Branch Systolic blood 2022-08-29 04:00:00 140 mm[Hg] Univer sity of pressure [facility] Diastolic blood 2022-08-29 04:00:00 76 mm[Hg] Unive rsity of pressure [facility] Body temperature 2022-08-29 02:57:00 37.56 Lashawn [facility] Body height 2022-08-29 02:57:00 160 cm [facility] Body weight 2022-08-29 02:57:00 83.008 kg [facility] BMI 2022-08-29 02:57:00 32.42 kg/m2 [facility] Systolic blood 2022-08-17 15:45:00 142 mm[Hg] Univer sity of pressure [facility] Diastolic blood 2022-08-17 15:45:00 92 mm[Hg] Unive rsity of pressure [facility] Heart rate 2022-08-17 15:45:00 84 /min [facility] Body weight 2022-08-17 15:45:00 81.33 kg [facility] BMI 2022-08-17 15:45:00 31.76 kg/m2 [facility] Oxygen saturation in 2022-08-17 15:45:00 96 /min [facility] Arterial blood by [facility] Pulse oximetry Branch Body temperature 2022-08-15 22:00:00 36.33 Lashawn [facility] Heart rate 2022-08-15 13:50:00 99 /min [facility] Respiratory rate 2022-08-15 13:50:00 18 /min [facility] Oxygen saturation in 2022-08-15 13:50:00 96 /min [facility] Arterial blood by [facility]hek Pulse oximetry Branch Systolic blood 2022-08-15 10:00:00 130 mm[Hg] Univer sity of pressure [facility] Diastolic blood 2022-08-15 10:00:00 74 mm[Hg] Unive rsity of pressure [facility] Body weight 2022-08-14 19:19:00 82.555 kg [facility] BMI 2022-08-14 19:19:00 32.24 kg/m2 [facility] Systolic blood 2022-07-22 15:15:00 135 mm[Hg] Univer sity of pressure [facility] Diastolic blood 2022-07-22 15:15:00 81 mm[Hg] Unive rsity of pressure [facility] Heart rate 2022-07-22 15:15:00 97 /min [facility] Body weight 2022-07-22 15:15:00 82.555 kg [facility] BMI 2022-07-22 15:15:00 32.24 kg/m2 [facility] Oxygen saturation in 2022-07-22 15:15:00 98 /min [facility] Arterial blood by [facility] Pulse oximetry Branch Systolic blood 2022-06-28 16:00:00 130 mm[Hg] Univer sity of pressure [facility] Diastolic blood 2022-06-28 16:00:00 62 mm[Hg] Unive rsity of pressure [facility] Heart rate 2022-06-28 16:00:00 100 /min [facility] Body temperature 2022-06-28 16:00:00 36.22 Lashawn [facility] Respiratory rate 2022-06-28 16:00:00 9 /min [facility] Oxygen saturation in 2022-06-28 16:00:00 95 /min [facility] Arterial blood by [facility] Pulse oximetry Branch Body weight 2022-06-28 09:00:00 87.499 kg [facility] BMI 2022-06-28 09:00:00 34.17 kg/m2 [facility] Body height 2022-06-28 00:00:00 160 cm [facility] Systolic blood 2022-06-25 14:10:00 131 mm[Hg] [facility] Diastolic blood 2022-06-25 14:10:00 89 mm[Hg] [facility]ive [facility] Heart rate 2022-06-25 14:10:00 82 /min [facility] Body weight 2022-06-25 14:10:00 83.598 kg [facility] BMI 2022-06-25 14:10:00 32.65 kg/m2 [facility] Oxygen saturation in 2022-06-25 14:10:00 97 /min University of Arterial blood by [facility] Pulse oximetry Branch Systolic blood 2022-05-28 14:40:00 124 mm[Hg] [facility] Diastolic blood 2022-05-28 14:40:00 76 mm[Hg] Unive [facility] Heart rate 2022-05-28 14:40:00 83 /min [facility] Body weight 2022-05-28 14:40:00 84.687 kg [facility] BMI 2022-05-28 14:40:00 33.07 kg/m2 [facility] Oxygen saturation in 2022-05-28 14:40:00 96 /min University of Arterial blood by [facility] Pulse oximetry Branch Systolic blood 2022-04-30 14:11:00 119 mm[Hg] [facility] Diastolic blood 2022-04-30 14:11:00 79 mm[Hg] [facility]ive [facility] Heart rate 2022-04-30 14:11:00 83 /min [facility] Body temperature 2022-04-30 14:11:00 36.94 Lashawn [facility] Respiratory rate 2022-04-30 14:11:00 18 /min [facility] Body height 2022-04-30 14:11:00 160 cm [facility] Body weight 2022-04-30 14:11:[address] [facility] BMI 2022-04-30 14:11:00 31.94 kg/m2 [facility] Oxygen saturation in 2022-04-30 14:11:00 97 /min [facility] blood by [facility] Pulse oximetry Branch Procedures Procedure Date / Time Performing Clinician Source Performed XR CHEST 2 VW 2023-01-02 15:11:00 Paige Jones [facility] CONSENT/REFUSAL FOR 2022-12-07 17:05:24 Doctor Unassigned, No [facility] Medical Branch CONSENT/REFUSAL FOR 2022-11-26 15:30:32 [facility] Un[facility]igned, [facility] Name Medical Branch DISCLOSURE AND CONSENT, 2022-11-12 06:01:00 Doctor Unassigned, N o [facility] MEDICAL AND SURGICAL Name Medical Bra [facility] PROCEDURES XR HAND 3+ VW RIGHT 2022-11-10 15:55:[address] [facility] PATIENT FINANCIAL 2022-11-05 14:24:59 Doctor Unassigned, No [facility] POLICY Name Medical [place] EMERGENCY DEPARTMENT 2022-10-15 06:01:00 Doctor Unassigned, No [facility] DOCUMENTS Name Medical [place] XR CHEST 1 VW 2022-09-27 07:30:00 Morgan Vargas [facility] COMP. METABOLIC PANEL 2022-09-20 00:35:00 Meng Galicia [facility] ([id number]) [facility] CBC WITH DIFF 2022-09-20 00:35:00 Meng Galicia [facility] CT ABDOMEN PELVIS W 2022-08-29 03:21:00 Amanda Power [facility] CONTRAST [facility] Branch LIPASE 2022-08-29 03:00:00 Amanda Power [facility] MAGNESIUM 2022-08-29 03:00:00 Amanda Power [facility] COMP. METABOLIC PANEL 2022-08-29 03:00:00 Amanda Power [facility] ([id number]) [facility] CBC WITH DIFF 2022-08-29 03:00:00 Amanda Power [facility] URINALYSIS 2022-08-29 03:00:00 Amanda Power [facility] NOTICE OF PRIVACY 2022-08-29 02:51:00 Doctor Unassigned, No [facility] PRACTICES Name [facility] CONSENT/REFUSAL FOR 2022-08-29 02:49:23 Doctor Unassigned, No [facility] DIAGNOSIS AND TREATMENT [facility] LACTIC ACID WHOLE BLOOD 2022-08-15 18:33:00 Eliezer Klein [facility] TEST, SERUM 2022-08-14 19:48:00 Frandy Levy [facility] COMP. METABOLIC PANEL 2022-08-14 19:48:00 Frandy Levy [facility] ([id number]) [facility] CBC WITH DIFF 2022-08-14 19:48:00 Frandy Levy [facility] PROTHROMBIN TIME / INR 2022-08-14 19:48:00 Frandy Leyv [facility] ACTIVATED PARTIAL 2022-08-14 19:48:00 Frandy Levy [facility] THRMPLAS [facility] LACTIC ACID WHOLE BLOOD 2022-08-14 19:48:00 Frandy Levy [facility] CRITICAL CARE 2022-08-14 19:11:00 Frandy Levy [facility] XR CHEST 2 VW 2022-06-27 19:48:40 Genaro Eubanks [place] [facility] TEST, SERUM 2022-06-27 19:44:00 Genaro Eubanks [facility] THYROID STIMULATING 2022-06-27 19:44:00 Nancy Brar [facility] HORMONE [facility] COMP. METABOLIC PANEL 2022-06-27 19:44:00 Genaro Eubanks [facility] ([id number]) [facility] CBC WITH DIFF 2022-06-27 19:44:00 Genaro Eubanks [place] [facility] RAPID INFLUENZA A/B 2022-06-27 19:44:[address] [facility] RAPID RSV 2022-06-27 19:44:00 Genaro Eubanks [place] [facility] COVID-19 (ID NOW RAPID 2022-06-27 19:44:00 Genaro Eubanks [facility]) Medical Branch Encounters Start End Encounter Admission Attending Care Care Encounter Source Date/Time Date/Time Type Type Clinicians Facility Department ID 2021-07-08 Emergency [facility] [id number] Univers 07:14:58 ity of [facility] 2021-07-07 Emergency [facility] [id number] Univers 03:24:43 ity of [facility] 2021-07-06 Inpatient R MARIUM DAWSON [facility] VACUUM KETTLE COOK [id number] Univers 23:03:57 ity of [facility] 2021-07-05 Emergency [facility] [id number] Univers 19:04:39 ity of [facility] 2021-07-04 Emergency [facility] [id number] Univers 23:32:26 ity of [facility] 2021-07-03 Emergency [facility] [id number] Univers 22:25:44 ity of [facility] 2023-02-11 2023-02-11 Telephone [facility] 1.2.840.114 [id number] Univers 00:00:00 00:00:00 Catrachita TEE 350.1.13.10 ity of IALTY 4.2.7.2.686 [facility] [phone] [place] [id number] [place] [facility] 2023-02-04 2023-02-04 Workforce Management Consultant V[facility] 1.2.840.114 [id number] Univers 12:00:00 12:15:00 Visit Catrachita Mercado 350.1. 13.10 ity of IALTY 4.2.7.2.686 [facility] [id number] [address] [facility]IC 2023-02-04 2023-02-04 Outpatient R JESS [facility] [id number] Univers 11:30:00 11:39:11 CATRACHITA arteaga o [facility] 2023-02-04 2023-02-04 Office [facility] 1.2.840.114 [id number] Univers 11:30:00 11:39:11 Visit Catrachita Oconnor RANDAL 350.1.13.10 ity of URS[place] 4.2.7.2.686 [facility] [id number] [facility] AND DENIA 056 [place] [facility] 2023-02-03 2023-02-03 Outpatient [facility] [id number] Terrence 11:00:28 11:00:28 [id number] F Justen 2023-01-13 2023-01-13 Outpatient [facility] [id number] Ter[place] 10:31:00 10:31:00 [id number] F [place] 2023-01-02 2023-01-02 Outpatient R [facility] [id number] Univers 09:55:10 23:59:00 [facility]02 2023-01-02 [facility] 1.2.840.114 [id number] Univers 09:55:10 23:59:00 Encounter [facility] 350.1.13.10 ity of [place] 4.2.7.2.686 Ejthro as BISHOP?BLEA [id number] [facility] [address] [place] MEDICAL OFFICE [facility] 2023-01-02 2023-01-02 [facility] 1.2.840.11 [id number] Univers 10:00:00 10:01:10 Care Unknown, Attending HEALTH 350.1.13.10 ity of [place] 4.2.7.2.686 Jethro as BISHOP?BLEA [id number] [facility] 370 [place] MEDICAL OFFICE [facility] 2022-12-07 2022-12-07 Emergency X MARSHALL, [facility] ERT [id number] Univers 12:06:00 13:56:00 AMANDA arteaga [facility] 2022-12-07 2022-12-07 Emergency [facility] 1.2.840.114 [id number] Univers 12:06:00 13:56:00 Amandaodalis JOE 350.1.13.10 i ty of [place] 4.2.7.2.686 [facility] [phone] [facility] 084 [place] 2022-11-262022-11-26 [facility] [id number] Univers 10:45:00 11:35:16 RACHNA arteaga [facility] 2022-11-26 2022-11-26 Office [facility] 1.2.349.310 [id number] Univers 10:45:00 11:35:16 Visit Rachna JOE 350.1.13.10 i ty of [place].7.2.[place] [phone] [place] dical [address] 2022-11-26 2022-11-26 Orders Doctor SONJA 1.2.840.114 [id number] Univers 00:00:00 00:00:00 Only Unassigned, ETTA 350.1.13.10 ity of [place] [facility] 4.2.7.2.686 Jethro as [phone] [facility] [address] [place] 2022-11-12 2022-11-12 Outpatient [facility] [id number] Univers 14:00:00 14:00:00 RACHNA arteaga [facility] 2022-11-12 2022-11-12 Outpatient [facility] [id number] Univers 10:00:00 11:16:39 RACHNA arteaga [facility] 2022-11-12 2022-11-12 Office [facility] 1.2.835.951 [id number] Univers 10:00:00 11:16:39 Visit Rachnajacek JOE 350.1.13.10 i ty of [place] [phone] [place] dic[address] 2022-11-12 2022-11-12 Orders Doctor SONJA 1.2.840.114 [id number] Univers 00:00:00 00:00:00 Only Unassigned, ETTA 350.1.13.10 [facility] [facility] 4.2.7.2.686 Jethro as [phone] [facility] 00[address] [place] 2022-11-10 2022-11-10 Outpatient R [facility] [id number] Univers 09:48:22 23:59:00 REENU ity of [facility] 2022-11-10 2022-11-10 [facility] 1.2.840.114 [id number] Univers 09:48:22 23:59:00 Encounter [facility] 350.1.13.10 [facility] 4.2.7.2.686 Jethro as BISHOP?BLEA [phone] La dical ANNETTE [address] [place] MEDICAL OFFICE [facility] 2022-11-10 2022-11-10 [facility] 1.2.840.11 [id number] Univers 09:20:00 09:55:29 Care Unknown, Attending HEALTH 350.1.13.10 ity of [place] 4.2.7.2.686 Jethro as BISHOP?BLEA [phone] La dictristian RICHARDSONEY [address] [facility] OFFICE [facility] 2022-11-05 2022-11-05 Outpatient R [facility] [id number] Univers 09:00:00 09:37:01 RACHNA arteaga [facility] 2022-11-05 2022-11-05 Office [facility] 1.2.421.982 [id number] Univers 09:00:00 09:37:01 Visit Rachna TATYANA 350.1.13.10 i ty [facility] 4.2.7.2.[place] [id number] [place] dictristian BOWEN 188 [facility] 2022-11-05 2022-11-05 Orders Doctor SONJA 1.2.840.114 [id number] Univers 00:00:00 00:00:00 Only Unassigned, ETTA 350.1.13.10 ity of [place] [facility]OSPITAL 4.2.7.2.686 Jethro as [phone] [address] 2022-10-15 2022-10-15 Orders Doctor SONJA 1.2.840.114 [id number] Univers 00:00:00 00:00:00 Only Unassigned, ETTA 350.1.13.10 ity of [place] [facility]OSPITAL 4.2.7.2.686 Jethro as [phone] [address] 2022-09-27 2022-09-27 Emergency X SINGER [facility] ERT [id number] Univers 00:57:00 05:55:00 MORGAN arteaga [facility] 2022-09-27 2022-09-27 Emergency [facility] 1.2.913.584 [id number] Univers 00:57:00 05:55:00 Morgan JOE 350.1.13.10 i ty of [place] 4.2.7.2.686 [facility] [phone] [address] 2022-09-19 2022-09-19 Emergency X [facility] ERT [id number] Univers 18:05:00 21:16:00 , MENG ity of [facility] 2022-09-19 2022-09-19 [facility] 1.2.840.114 [id number] Univers 18:05:00 21:16:00 , Meng TATYAAN 350.1.13.10 i ty of [place] 4.2.7.2.[address] [place] [phone] 2022-09-11 2022-09-11 Workforce Management Consultant [facility] 1.2.840.114 [id number] Univers 10:00:00 10:15:00 Visit Catrachita Mercado 350.1. 13.10 ity of IAL[place] 4.2.7.2.[address] [place] [phone] [facility] 2022-09-11 2022-09-11 Outpatient Tammi MERCADO [facility] [id number] Univers 10:00:00 10:00:00 CATRACHITA velasco [facility] 2022-09-11 2022-09-11 Office Jess [facility] 1.2.840.114 [id number] Univers 09:00:00 09:56:11 Visit Catrachita TEE 350.1.13.10 ity of IAL[place] 4.2.7.2.[address] [place] [phone] [facility] 2022-09-10 2022-09-10 Outpatient Tammi [facility]CADO [facility] [id number] Univers 09:30:00 09:30:00 CATRACHITA arteaga o f [facility] 2022-09-07 2022-09-07 Telephone Jess [facility] 1.2.840.114 [id number] Univers 00:00:00 00:00:00 Catrachita Oconnor MULTISPEC 350.1.13.10 ity of IALTY 4.2.7.2.686 [facility] [phone] [facility] AND [address] [facility] 2022-08-28 2022-08-28 Emergency X [facility] ERT [id number] Univers 20:52:00 22:35:00 AMANDA arteaga [facility] 2022-08-28 2022-08-28 Emergency [facility] 1.2.840.114 [id number] Univers 20:52:00 22:35:00 Amanda JOE 350.1.13.10 ity of [place] 4.2.7.2.686 [facility] [phone] [facility] 084 [address] 2022-08-17 2022-08-17 Nurse Nurse, [facility] Int Med Allergy [facility] 1.2.840.114 [id number] Univers 10:00:00 10:30:00 Visit Lorene Roman MULTISPEC 350.1 .13.10 ity of IAL[place] 4.2.7.2.[address] [place] [address] [phone] [facility] AND [address] [facility] 2022-08-17 2022-08-17 Outpatient R ABEL [facility] [id number] Univers 10:00:00 10:00:00 LORENE arteaga [facility] 2022-08-17 2022-08-17 Transition MUNA Tello 1.2.840.114 [id number] Univers 00:00:00 00:00:00 of eWn RICHEY 350.1.13.10 it y of [place] 4.2.7.2.686 [facility] [phone] [facility] 403 Branch 2022-08-14 2022-08-15 Inpatient X ERNIE [facility] [id number] Univers 13:24:00 17:15:00 ELIEZER arteaga [facility] 2022-08-14 2022-08-15 Hospital Frandy Levy [facility] 1.2.840. 114 [id number] Univers 13:24:00 17:15:00 Encounter Eliezer Klein 350.1.13.10 ity of [place] 4.2.7.2.686 [facility] [id number] [facility] 080 Branch 2022-08-14 2022-08-14 Malachi Mercado [facility] 1.2.840.114 [id number] Univers 00:00:00 00:00:00 Catrachita Oconnor MULTISPEC 350.1.13.10 ity of IAL[place] 4.2.7.2.[address] [place] [address] [phone] [facility] AND [address] [facility] 2022-07-22 2022-07-22 Nurse Nurse, [facility] Int Med Allergy [facility] 1.2.840.114 [id number] Univers 09:30:00 10:00:00 [facility] 350.1 .13.10 ity of IAL[place] 4.2.7.2.[address] [place] [address] [phone] [facility] AND [address] [facility] 2022-07-22 2022-07-22 Outpatient R ABEL [facility] [id number] Univers 09:30:00 09:30:00 LORENE [facility] 2022-06-30 2022-06-30 Transition MUNA Tello .2.840.114 [id number] Univers 00:00:00 00:00:00 of Care Marley RICHEY 350.1.13.10 it y of [place] 4.2.7.2.686 [facility] [phone] [facility] 403 [address] 2022-06-27 2022-06-28 Outpatient X ERNIE [facility] JACKELYN [id number] Univers 13:49:00 13:32:00 ELIEZER arteaga [facility] 2022-06-27 2022-06-28 Emergency Genaro Eubanks [facility] 1.2.840.1 14 [id number] Univers 13:49:00 13:32:00 Eliezer Klein 350.1.13.10 ity of [place] 4.2.7.2.686 [facility] [id number] [facility] 0[address] 2022-06-25 2022-06-25 Nurse Nurse, [facility] Int Med Allergy [facility] 1.2.840.114 [id number] Univers 09:30:00 10:00:00 Visit Catrachita MercadoPEC 350.1. 13.10 ity of [place] 4.2.7.2.686 [facility] [id number] [facility] AND [address] [facility] 2022-06-25 2022-06-25 Outpatient R JESS [facility] [id number] Univers 09:30:00 09:30:00 CATRACHITA velasco [facility] 2022-05-28 2022-05-28 Nurse Nurse, [facility] Int Med Allergy [facility] 1.2.840.114 [id number] [facility] 10:00:00 10:30:00 Visit Catrachita Mercado 350.1. 13.10 ity of [place] 4.2.7.2.[address] [place] [address] [phone] [facility] AND [address] [facility] 2022-05-28 2022-05-28 Outpatient R JESS [facility] [id number] Univers 10:00:00 10:00:00 CATRACHITA velasco [facility] 2022-05-13 2022-05-13 Telephone [facility] 1.2.953.492 [id number] Univers 00:00:00 00:00:00 [facility] 350.1.13.10 it y of [place] 4.2.7.2.686 [facility] [id number] [address] ([facility]) 2022-04-30 2022-04-30 Outpatient R JESS [facility] [id number] Univers 09:30:00 10:06:23 CATRACHITA velasco [facility] 2022-04-30 2022-04-30 Office Jess [facility] 1.2.840.114 [id number] Univers 09:30:00 10:06:23 Visit Catrachita L MULTISPEC 350.1.13.10 it[place] [id number] [facility] AND [address] [facility] 2022-04-30 2022-04-30 Outpatient R JESS [facility] [id number] Univers 09:30:00 10:06:23 CATRACHITA arteaga o f [facility] 2022-04-23 2022-04-23 Refill [facility] 1.2.840.114 [id number] Univers 00:00:00 00:00:00 Catrachita Oconnor MULTISPEC 350.1.13.10 it[place] of [place]2.[place] [id number] [facility] AND [address] [facility] 2022-04-02 2022-04-02 Telephone [facility] 1.2.840.114 [id number] Univers 00:00:00 00:00:00 Catracihta Oconnor MULTISPEC 350.1.13.10 it[place] of [place] [id number] [facility] AND [address] [facility] 2022-03-30 2022-03-30 Nurse Nurse, [facility] Int Med Allergy [facility] 1.2.840.114 [id number] [facility] 13:00:00 15:10:07 Visit Lorene Roman MULTISPEC 350.1 .13.10 it[place] of [place] [id number] [facility] AND [address] [facility] 2022-03-30 2022-03-30 Outpatient R ABEL [facility] [id number] Univers 13:00:00 15:10:07 LORENE arteaga [facility] 2022-03-05 2022-03-05 [facility] [id number] Univers 09:00:00 09:57:41 LORENE arteaga [facility] 2022-03-05 2022-03-05 Nurse Nurse, [facility] Int Med Allergy [facility] 1.2.840.114 [id number] [facility] 09:00:00 09:57:41 Visit Lorene RomanPEC 350.1 .13.10 it[place]2.[place] [id number] [address] [facility] 2022-02-04 2022-02-04 Nurse Nurse, [facility] Int Med Allergy [facility] 1.2.840.114 [id number] Univers 09:00:00 09:30:00 Visit Lorene Roman [facility] 350.1 .13.10 ity of IAL[place] 4.2.7.2.686 [facility] [place] [id number] [facility] AND [address] [facility] 2022-02-04 2022-02-04 Outpatient R ABEL [facility] [id number] Univers 09:00:00 09:00:00 LORENE arteaga [facility] 2022-01-29 2022-01-29 Malachi Mercado [facility] 1.2.840.114 [id number] Univers 00:00:00 00:00:00 Catrachita TEE 350.1.13.10 ity of IAL[place] 4.2.7.2.686 [facility] [place] [id number] [address] DI[facility]ETES CLINIC 2022-01-27 2022-01-27 Malachi Martinez [facility] 1.2.840.114 [id number] Univers 00:00:00 00:00:00 [facility] 350.1.13.10 it y of [place] 4.2.7.2.686 Jethro as BISHOP?BLEA [id number] [address] MEDICAL OFFICE BUILDING 2022-01-09 2022-01-09 Outpatient R JESS [facility] [id number] Univers 08:30:00 11:32:35 CATRACHITA velasco [facility] 2022-01-09 2022-01-09 Office [facility] 1.2.840.114 [id number] Univers 08:30:00 11:32:35 Visit Catrachita TEE 350.1.13.10 it[place] [id number] [facility] AND [address] [facility] 2022-01-05 2022-01-05 Telephone Jess [facility] 1.2.840.114 [id number] Univers 00:00:00 00:00:00 Catrachita TEE 350.1.13.10 ity of [place] 4.2.7.2.686 [facility] [id number] [facility] AND [address] [facility]ES [facility] 2021-12-11 2021-12-11 Nurse Nurse, [facility] Int Med Allergy [facility] 1.2.840.114 [id number] Univers 09:00:00 11:00:00 Visit Catrachita Mercado 350.1. 13.10 ity of IAL[place] 4.2.7.2.[address] [place] [address] [id number] [facility] AND [address] [facility]ES [facility] 2021-12-11 2021-12-11 Outpatient Tammi [facility] [id number] Univers 09:00:00 09:00:00 CATRACHITA arteaga o f [facility] 2021-11-22 2021-11-22 Emergency X ELAINE, K [facility] ERT [id number] Univers 14:44:00 20:04:00 ity of [facility] 2021-11-22 2021-11-22 Emergency Elaine, K [facility] 1.2.840.114 [id number] Univers 14:44:00 20:04:00 Ceci JOE 350.1.13.10 i ty of [place] 4.2.7.2.[address] [place] [address] [phone] [facility] [address] 2021-11-14 2021-11-14 Office Jess [facility] [id number] Univers 09:00:00 11:12:34 Visit Catrachita TEE [id number] ity of IALTY [id number] [facility] [id number] [facility] AND [address] [facility] 2021-11-14 2021-11-14 Outpatient Tammi [facility] [id number] Univers 09:00:00 11:12:34 CATRACHITA [facility] 2021-11-14 2021-11-14 Outpatient Tammi [facility] [id number] Univers 09:00:00 09:00:00 CATRACHITA jenni [facility] 2021-11-14 2021-11-14 Outpatient Tammi [facility] [id number] Univers 09:00:00 09:00:00 CATRACHITA jenni [facility] 2021-11-12 2021-11-12 Workforce Management Consultant Sarah, [facility] [id number] Univers 08:00:00 08:15:00 Visit Catrachita Mercado 350.1.1 3.10 ity of [facility] [place]2.[place].2.[place] [facility] [phone] [address] 2021-11-12 2021-11-12 Outpatient Tammi [facility] [id number] Univers 08:00:00 08:00:00 CATRACHITA velasco [facility] 2021-11-12 2021-11-12 Orders Doctor SONJA 1.2.840.114 [id number] Univers 00:00:00 00:00:00 Only Unassigned, ETTA 350.1.13.10 ity of [place] [facility] 4.2.7.2.686 Jeth[place] as [phone] [address] 2021-11-10 2021-11-10 Telephone Robert [facility] 1.2.840.114 [id number] Univers 00:00:00 00:00:00 Merom [employer] 350.1.13.10 it y of [facility] [place].2.7.2.[place] [facility] [phone] [address] ([facility]) 2021-11-07 2021-11-07 Outpatient Tammi [facility] [id number] Univers 11:00:00 11:00:00 CATRACHITA velasco [facility] 2021-11-07 2021-11-07 Outpatient Tammi [facility] [id number] Univers 11:00:00 11:00:00 CATRACHITA velasco [facility] 2021-11-05 2021-11-05 Patient Jess [facility] 1.2.840.114 [id number] Univers 00:00:00 00:00:00 Secure Msg Catrachita Oconnor MULTISPEC 350.1.13.10 it[place] of [place] CENTER [phone] [facility] AND [address] [facility] 2021-11-05 2021-11-05 Patient Jess [facility] 1.2.840.114 [id number] Univers 00:00:00 00:00:00 Secure Msg Catrachita Oconnor MULTISPEC 350.1.13.10 ity of [place] 4.2.7.2.686 [facility] [phone] [facility] AND [address] [facility] 2021-10-30 2021-10-30 Telemedici [facility] 1.2.840.114 [id number] Univers 08:30:00 09:00:00 ne Visit Catrachita Oconnor HELGAPEC 350.1.13.10 ity of [place] 4.2.7.2.686 [facility] [place] [phone] [facility] AND [address] [facility] 2021-10-30 2021-10-30 [facility] [id number] Univers 08:30:00 08:30:00 CATRACHITA corrales eboni [facility] 2021-10-30 2021-10-30 Outpatient [facility] [id number] Univers 08:30:00 08:30:00 CATRACHITA velasco [facility] 2021-10-29 2021-10-29 RefMarium Jalloh [facility] 1.2.840.114 [id number] Univers 00:00:00 00:00:00 TATYANA 350.1.13.10 i ty of [place] 4.2.7.2.686 [facility] PROFESSIO [phone] [address] 2021-10-19 2021-10-19 Malachi Martinez [facility] 1.2.840.114 [id number] Univers 00:00:00 00:00:00 Rosio HEALTH 350.1.13.10 it y of [place] 4.2.7.2.686 Jethro as BISHOP?BLEA [phone] [address] MEDICAL OFFICE BUILDING 2021-10-17 2021-10-17 Transition MUNA Camejo 1.2.840.114 [id number] Univers 00:00:00 00:00:00 of Care Alanna L RICHEY 350.1.13.10 i ty of [place].2.[place] [phone] [facility] [address] 2021-10-15 2021-10-16 Outpatient X ERNIE [facility] JACKELYN [id number] Univers 14:23:00 14:50:00 ELIEZER arteaga [facility] 2021-10-15 2021-10-16 Emergency Marium Hickey [facility] 1.2.840. 114 [id number] Univers 14:23:00 14:50:00 Eliezer Klein 350.1.13.10 ity [facility] 4.2.7.2.[place] [phone] [facility] [address] 2021-09-27 2021-09-27 Emergency X INESSA [facility] ERT [id number] Univers 11:15:00 14:54:00 BA arteaga of [facility] 2021-09-27 2021-09-27 Emergency Ismael Cotter [facility] 1.2. 840.114 [id number] Univers 11:15:00 14:54:00 Ba Pascal 350.1.13.10 ity of [facility] 4.2.7.2.[place] [phone] [facility] [address] 2021-09-27 2021-09-27 Urgent Juan [facility] 1.2.840.114 [id number] Univers 10:20:00 10:20:00 Care Rosio HEALTH 350.1.13.10 it y of [place] 4.2.7.2.686 Jethro as BISHOP?BLEA [phone] [address] MEDICAL OFFICE [facility] 2021-09-27 2021-09-27 Outpatient Tammi [facility]Z [facility] [id number] Univers 10:20:00 10:16:45 ROSIO ity of [facility] 2021-08-12 2021-08-12 Telephone Jess [facility] 1.2.840.114 [id number] Univers 00:00:00 00:00:00 Catrachita TEE 350.1.13.10 it[place] of [place] [phone] [address] DIABETES CLINIC 2021-08-12 2021-08-12 Orders Doctor SONJA 1.2.840.114 [id number] Univers 00:00:00 00:00:00 Only Unassigned, ETTA 350.1.13.10 ity of [place] [facility] 4.2.7.2.686 [place] as [phone] [address] 2021-08-08 2021-08-08 Workforce Management Consultant [facility] 1.2.840.114 [id number] Univers 11:56:09 12:11:09 Visit Catrachita [place]ado 350.1. 13.10 it[place] of [place].2.[place] CENTER [phone] [address] [facility]ES CLINIC 2021-08-08 2021-08-08 Outpatient R JESS [facility] [id number] Univers 11:00:00 11:56:31 CATRACHITA corrales f [facility] 2021-08-08 2021-08-08 Office Jess [facility] 1.2.840.114 [id number] Univers 10:03:35 11:56:31 Visit Catrachita TEE 350.1.13.10 it[place] of [place].2.[place] CENTER [phone] [address] DIABETES CLINIC 2021-07-22 2021-07-22 Outpatient R MARIUM DAWSON [facility] [id number] Univers 13:30:00 14:05:17 ity of [facility] 2021-07-22 2021-07-22 Office Marium Dawson [facility] 1.2.840.114 [id number] Univers 13:17:43 14:05:17 Visit TATYANA 350.1.13.10 i ty of [facility] 4.2.7.2.[place] PROFESS[place] [phone] La dical NAL [address] [place] [address] 2021-07-22 2021-07-22 Outpatient R MARIUM DAWSON [facility] [id number] Univers 13:30:00 13:30:00 ity [facility] 2021-07-22 2021-07-22 Outpatient R MARIUM DAWSON [facility] [id number] Univers 13:30:00 13:30:00 ity [facility] 2021-07-11 2021-07-11 Office Marium Dawson [facility] 1.2.840.114 [id number] Univers 16:01:12 16:49:47 Visit TATYANA 350.1.13.10 i ty of [facility] 4.2.7.2.686 [facility] PROFESSIO [phone] La dic[address] 2021-07-11 2021-07-11 Outpatient R MARIUM DAWSON [facility] [id number] Univers 16:00:00 16:49:47 ity [facility] 2021-07-11 2021-07-11 Telephone Marium Dawson [facility] 1.2.840.11 [id number] Univers 00:00:00 00:00:00 REJI 350.1.13.10 it y of WOMEN'S 4.2.7.2.686 [facility] [phone] [facility] [address] 2021-06-20 2021-06-20 Emergency Cristofer Henry [facility] 1.2.840.114 [id number] Univers 17:48:00 21:24:00 Ceci Joe 350.1.13.10 i ty of [place] 4.2.7.2.686 [facility] [place] [phone] [facility] [address] 2021-05-08 2021-05-08 Letter SONJA Shepherd 1.2.840.114 [id number] Univers 00:00:00 00:00:00 (Out) Dedra QUILES 350.1.13.10 it y of HOSPITAL 4.2.7.2.686 [place] as [phone] [address] 2021-05-07 2021-05-07 Laboratory Only, Ang Db Test [facility] 1.2.8 40.114 [id number] Univers 09:27:26 09:37:26 Only Marcin [facility] 350.1.13.10 ity of [place] 4.2.7.2.686 [place] as Bishop?Blea [phone] La dannytristian [address] Medical Office Building 2021-05-07 2021-05-07 Outpatient R MARCIN [facility] [id number] Univers 09:25:00 09:25:00 BOBBI ity of [facility] 2021-04-11 2021-04-11 Workforce Management Consultant [facility] 1.2.840.114 [id number] Univers 12:33:14 12:48:14 Visit Catrachita Mercado 350.1. 13.10 ity of [place] 4.2.7.2.686 [facility] s [place] [phone] [facility] AND [place] [address] [place] [facility]IC 2021-04-11 2021-04-11 Office Jess [facility] 1.2.840.114 [id number] Univers 11:19:19 12:35:51 Visit Catrachita PARTIDAPEC 350.1.13.10 ity of [place] 4.2.7.2.686 [facility] CENTER [phone] [facility] [address] [place] DIABETES CLINIC 2021-04-11 2021-04-11 Outpatient Tammi [facility]CADO [facility] [id number] Univers 12:00:00 12:00:00 CATRACHITA velasco [facility] 2021-04-08 2021-04-08 Office Marium Dawson [facility] 1.2.840.114 [id number] Univers 10:25:23 11:26:58 Visit Reji 350.1.13.10 it y of Women's [place] [phone] [facility] [address] 2021-04-08 2021-04-08 Outpatient MARIUM K[facility]ISER [facility] [id number] Univers 10:30:00 10:30:00 ity of [facility] 2021-03-25 2021-03-25 Outpatient R MARIUM DAWSON [facility] [id number] Univers 15:30:00 15:30:00 ity of [facility] 2021-03-18 2021-03-18 Workforce Management Consultant [facility] 1.2.840.114 [id number] Univers 14:34:51 14:49:51 Visit Catrachita MercadoPEC 350.1. 13.10 ity of [place].2.686 [place] C[place] [id number] [facility] AND [address] DIABETES CLINIC 2021-03-18 2021-03-18 Office Jess [facility] 1.2.840.114 [id number] Univers 13:38:25 14:35:19 Visit Catrachita TEE 350.1.13.10 ity of [place]2.7.2.686 [place] C[place] [phone] [facility] AND [place] [address] [place] [facility] CLINIC 2021-03-18 2021-03-18 Outpatient R JESS [facility] [id number] Univers 13:30:00 13:30:00 CATRACHITA arteaga o f [facility] 2021-02-28 2021-02-28 Office Marium Dawson [facility] 1.2.840.114 [id number] Univers 15:07:35 16:01:07 Visit Tatyana 350.1.13.10 i ty of [place] 4.2.7.2.686 [facility] Professio [phone] La dical [address] 2021-02-28 2021-02-28 Outpatient R MARIUM DAWSON [facility] [id number] Univers 15:30:00 15:30:00 ity of [facility] 2021-02-26 2021-02-26 Emergency [facility] 1.2.967.867 [id number] Univers 19:08:00 22:19:00 Ashwin Joe 350.1.13.10 [place]y of [place].7.2.686 [place] [phone] [facility] [address] 2021-02-21 2021-02-22 Hospital Marium Dawson [facility] 1.2.840.114 [id number] Univers 07:31:00 12:50:00 Encounter Tatyana 350.1.13.10 ity of [place]2.7.2.686 [place] [phone] [facility] 083 [address] 2021-02-21 2021-02-21 Anesthesia Ernesto Tesfaye [facility] 1.2.840.11 [id number] Univers 08:16:00 13:05:00 Event Mati Grissom [place] 350.1.13.10 [place] of [place]2.7.2.686 [place] Surgical [phone] [facility] 020 [address] 2021-02-21 2021-02-21 Surgery Marium Dawson [facility] 1.2.840.114 [id number] Univers 08:30:00 12:52:00 [place] 350.1.13.10 i ty of [place] 4[place]2.7.2.[place] Surgical [phone] [facility] 0[address] 2021-02-21 2021-02-21 Orders Doctor SONJA 1.2.840.114 [id number] Univers 00:00:00 00:00:00 Only Unassigned, ETTA 350.1.13.10 ity of [place] HOSPITAL 4.2.7.2.686 Jethro as [phone] [facility] [address] 2021-02-20 2021-02-20 Outpatient R MARIUM DAWSON [facility] [id number] Univers 08:30:00 08:30:00 ity of [facility] 2021-02-20 2021-02-20 Workforce Management Consultant [facility] Main [facility] 1.2.8 40.114 [id number] Univers 08:08:54 08:23:54 Visit Marium Dawson 350.1.13.10 [place] of [place].2.[place] Profess[place] [phone] La dical [address] 2021-02-20 2021-02-20 Laboratory Only, Adc Test [facility] 1.2.840. 114 [id number] Univers 08:08:25 08:23:25 Only Marium Dawson 350.1.13.10 ity of [place] 4.2.7.2.686 [place] [phone] [facility] [address] [place] 2021-02-19 2021-02-19 Orders Doctor SONJA 1.2.840.114 [id number] Univers 00:00:00 00:00:00 Only Unassigned, ETTA 350.1.13.10 it[place] [facility] 4.2.7.2.686 [place] as [phone] [address] 2021-02-18 2021-02-18 Outpatient R MARIUM DAWSON [facility] [id number] Univers 08:15:00 08:15:00 ity [facility] 2021-02-06 2021-02-06 Outpatient R MARIUM DAWSON [facility] [id number] Univers 10:30:00 10:30:00 ity [facility] 2021-01-29 2021-01-29 Outpatient R MARIUM DAWSON [facility] [id number] Univers 00:00:00 00:00:00 ity [facility] 2021-01-24 2021-01-24 Office Marium Dawson [facility] 1.2.840.114 [id number] Univers 14:18:23 15:08:39 Visit Tatyana 350.1.13.10 i ty [facility] 4.2.7.2.686 [place] [facility] [phone] La dical [address] 2021-01-24 2021-01-24 Outpatient R MARIUM DAWSON [facility] [id number] Univers 14:30:00 14:30:00 ity [facility] 2021-01-24 2021-01-24 Orders Doctor SONJA 1.2.840.114 [id number] Univers 00:00:00 00:00:00 Only Unassigned, ETTA 350.1.13.10 ity of [place] [facility] 4.2.7.2.686 [place] as [phone] [address] 2021-01-21 2021-01-21 Outpatient MARIUM [facility] [id number] Univers 09:00:00 09:[facility] 2021-01-02 Outpatient R HEAVEN [facility] [id number] Univers 10:30:00 10:30:00 SHRUTHI [facility] 2020-11-25 2020-11-25 Patient [facility] 1.2.840.114 [id number] Univers 00:00:00 00:00:00 Outreach Miko PRIMARY 350.1.13.10 i ty of [facility] 4.2.7.2.686 [place] [phone] La dical [address] [place] 2020-09-28 2020-09-28 Emergency [facility] 1.2.481.581 [id number] Univers 13:43:00 16:38:00 Morgan Joe 350.1.13.10 i ty of [place] 4.2.7.2.686 [place] [phone] [facility] [address] [place] 2020-09-17 2020-09-17 Office [facility] 1.2.584.485 [id number] Univers 13:24:29 14:54:21 Visit Rachna Joe 350.1.13.10 i ty of [place] 4.2.7.2.686 [place] Profess[place] [phone] La dical nal 188 [facility] 2020-09-17 2020-09-17 Outpatient R ELEAZAR [facility] [id number] Univers 13:45:00 13:45:00 RACHNA arteaga [facility] 2020-09-05 2020-09-05 Office Rachna Bush [facility] 1.2.840.1 14 [id number] Univers 10:40:42 11:50:15 Visit Rm, Adc Surg Spec Procedure Tatyana 3 50.1.13.10 [place] of [place] 4.2.7.2.686 [place] Profess[place] [phone] La dical nal 188 [facility] 2020-09-05 2020-09-05 Outpatient R ELEAZAR [facility] [id number] Univers 10:45:00 10:45:00 RACHNA arteaga [facility] 2020-09-05 2020-09-05 Orders Doctor SONJA 1.2.840.114 [id number] Univers 00:00:00 00:00:00 Only Unassigned, ETTA 350.1.13.10 ity [place] HOSPITAL 4.2.7.2.686 Jethro as [phone] [address] 2020-08-06 2020-08-06 Office [facility] 1.2.396.235 [id number] Univers 15:20:07 16:38:34 Visit Rachna Joe 350.1.13.10 i ty of [place].7.2.[place] Profess[place] [phone] [address] 2020-08-06 2020-08-06 Outpatient R [facility] [id number] Univers 15:30:00 15:30:00 RACHNA arteaga [facility] 2020-07-31 2020-07-31 Telephone [facility] 1.2.840.114 [id number] Univers 00:00:00 00:00:00 Rachna Joe 350.1.13.10 i ty of [place].2.[place] Profess[place] [phone] [address] 2020-07-30 2020-07-30 Office [facility] 1.2.647.988 [id number] Univers 14:25:30 16:00:44 Visit Rachna Floreston 350.1.13.10 i ty of [place] 4[place]2.7.2.686 [place] Profess[place] [phone] [address] 2020-07-30 2020-07-30 Outpatient R [facility] [id number] Univers 14:30:00 14:30:00 RACHNA arteaga [facility] 2020-07-30 2020-07-30 Orders Doctor CASILLAS 1.2.840.114 [id number] Univers 00:00:00 00:00:00 Only Unassigned, ETTA 350.1.13.10 ity of [place] HOSPITAL 4.2.7.2.686 Jeth[place] as [phone] [address] 2020-07-27 2020-07-27 Urgent Provider, [facility] 1.2.840.114 [id number] Univers 13:06:42 14:02:20 Care Marcin Bobbi [facility] 350.1.13.10 ity of [place] 4.2.7.2.686 Jethro as Professio [phone] La dical nal [address] Office Building One 2020-07-27 2020-07-27 Outpatient R MARCIN [facility] [id number] Univers 13:20:00 13:20:00 BOBBI ity of [facility] 2020-07-18 2020-07-18 Laboratory Pc, Adc Echo Room 1 - [facility] 1 .2.840.114 [id number] Univers 08:48:25 09:48:25 Only Deborah Macario 350.1.13.10 [place] of [place].7.2.[place] Profess[place] [phone] La dical nal 059 [facility] 2020-07-18 2020-07-18 Outpatient R [facility] [id number] Univers 09:00:00 09:00:00 ity of [facility] 2020-07-18 2020-07-18 Orders Doctor SONJA 1.2.840.114 [id number] Univers 00:00:00 00:00:00 Only Unassigned, ETTA 350.1.13.10 ity of [place] [facility] 4.2.7.2.686 Jethro as [phone] [facility] [address] [place] 2020-06-25 2020-06-25 Transition [place] 1.2.840.114 [id number] Univers 00:00:00 00:00:00 of Care Marley Richey 350.1.13.10 it y of [place].7.2.[place] [phone] [facility] [address] 2020-06-22 2020-06-23 Emergency Mino Shahid [facility] 1.2.840. 114 [id number] Univers 12:07:00 14:40:00 Anahy Owen 350.1.13.10 [place] of [place].2.[place] [phone] [facility] [address] 2020-06-12 2020-06-12 Orders Doctor SONJA 1.2.840.114 [id number] Univers 00:00:00 00:00:00 Only Unassigned, ETTA 350.1.13.10 ity of [place] [facility]OSPITAL 4.2.7.2.686 Jethro as [phone] [facility] [address] [place] 2020-03-19 2020-03-19 Orders Doctor SONJA 1.2.840.114 [id number] Univers 00:00:00 00:00:00 Only Unassigned, ETTA 350.1.13.10 ity of [place] [facility]OSPITAL 4.2.7.2.686 Jethro as [phone] [facility] [address] [place] 2020-03-19 2020-03-19 Orders Doctor SONJA 1.2.840.114 [id number] 00:00:00 00:00:00 Only Unassigned, ETTA 350.1.13.10 [place] [facility] [phone] [facility] 2020-02-28 2020-02-28 Transition [place] 1.2.840.114 [id number] Univers 00:00:00 00:00:00 of Care Marley Richey 350.1.13.10 it y [place]2.7.2.[place] [phone] [facility] [address] 2020-02-28 2020-02-28 Transition [place] 1.2.840.114 [id number] 00:00:00 00:00:00 of Care Marley Richey 350.1.13.10 [place] 4.2.7.2.686 [phone] [facility] 2020-02-23 2020-02-27 [facility] [id number] Univers 21:57:28 16:56:00 TIANA ity of [facility] 2020-02-23 2020-02-27 [facility] MartinMagalys vázquez 1.2.990.585 [id number] Univers 21:57:28 16:56:00 Encounter Tiana Quiles 350.1.13.10 ity of Hospital 4.2.7.2.686 Jethro as [phone] [facility] [address] 2020-02-23 2020-02-27 Hospital Magalys Smith 1.2.844.989 [id number] 21:57:28 16:56:00 Encounter Tiana Wing Etta 350.1.13.10 [facility] 42.7.2.686 [id number] 093 2020-01-31 2020-02-02 Inpatient X [facility] [id number] Univers 13:56:16 12:50:00 ANAHY ity of [facility] 2020-01-31 2020[facility]02-02 [facility] 1.2.840. 114 [id number] Univers 13:56:16 12:50:00 Encounter AjaydarrenchristopherAnahy 350.1.13.10 ity of [place] 4.2.7.2.686 [facility] [phone] [facility] [address] [place] [address] 2020-01-31 2020-02-02 [facility] Annamaria Cardenas [facility] 1.2.840. 114 [id number] 13:56:16 12:50:00 Encounter JhonychristopherAnahy 350.1.13.10 [place] 4.2.7.2.686 [place] [phone] [facility] 2020-01-31 2020-01-31 Orders Doctor SONJA 1.2.840.114 [id number] Univers 00:00:00 00:00:00 Only Unassigned, ETTA 350.1.13.10 ity of [place] [facility] 4.2.7.2.686 Jethro [phone] [facility] [address] 2020-01-31 2020-01-31 Orders Doctor SONJA 1.2.840.114 [id number] 00:00:00 00:00:00 Only Unassigned, ETTA 350.1.13.10 [place] [facility] 4.2.7.2.686 [phone] 009 Results Test Description Test Time Test Comments Results Result Comments Source CBC WITH DIFF 2022-09-20 01:32:48 Test Item Value Reference Range Interpretation Comme nts WBC (test code = 6690-2) See_Comment H [A utomated message] The system which ge nerated this result transmit noreen reference range: 4.30 - 1 1.10 10*3/?L. The reference r daniela was not used to interpr et this result as normal/abnor mal. RBC (test code = 789-8) See_Comment [Au tomated message] The system which [employer] nerated this result transmit noreen reference range: 3.93 - 5 .25 10*6/?L. The reference r daniela was not used to interpr et this result as normal/abnor mal. HGB (test code = 718-7) 13.0 g/dL 11.6-15.0 HCT (test code = 4544-3) 38.1 % 35.7-45.2 MCV (test code = 787-2) 82.5 fL 80.6-95.5 MCH (test code = 785-6) 28.1 pg 25.9-32.8 MCHC (test code = 786-4) 34.1 g/dL 31.6-35.1 RDW-SD (test code = 29041-5) 37.4 fL 39.0-49.9 L RDW-CV (test code = 788-0) 12.5 % 12.0-15.5 PLT (test code = 777-3) See_Comment [Au tomated message] The system which [employer] nerated this result transmit noreen reference range: 166 - 35 8 10*3/?L. The reference range was not used to interpret th is result as normal/abnormal . MPV (test code = 84731-1) 10.5 fL 9.5-12.9 NRBC/100 WBC (test code = See_Comment [ Automated message] The [id number]) system which [employer] nerated this result transmit noreen reference range: 0.0 - 10 .0 /100 WBCs. The reference r daniela was not used to interpr et this result as normal/abnor mal. NRBC x10^3 (test code = See_Comment [Au tomated message] The [id number]) system which [employer] nerated this result transmit noreen reference range: 10*3/?L. The reference range was not u sed to interpret this result as normal/abnormal . GRAN MAT (NEUT) % (test code 55.4 % = 770-8) IMM GRAN % (test code = 0.60 % [id number]) LYMPH % (test code = 736-9) 36.2 % MONO % (test code = 5905-5) 6.0 % EOS % (test code = 713-8) 1.2 % BASO % (test code = 706-2) 0.6 % GRAN MAT x10^3(ANC) (test 7.91 10*3/uL 1.88-7.09 H code = [id number]) IMM GRAN x10^3 (test code = 0.08 10*3/uL 0.00-0.06 H [id number]) LYMPH x10^3 (test code = 5.16 10*3/uL 1.32-3.29 H 731-0) MONO x10^3 (test code = 0.86 10*3/uL 0.33-0.92 742-7) EOS x10^3 (test code = 0.17 10*3/uL 0.03-0.39 711-2) BASO x10^3 (test code = 0.08 10*3/uL 0.01-0.07 H 704-7) Lab Interpretation (test Abnormal code = 53230-7) [id number][facility] 01:13:21 Test Item Value Reference Range Interpretation Comments NA (test code = 138 mmol/L 135-145 [id number]) K (test code = 3.6 mmol/L 3.5-5.0 0684632280) CL (test code = 104 mmol/L 98-108 2479274687) CO2 TOTAL (test code = 19 mmol/L 23-31 L 6594234436) AGAP (test code = 2-16 9598921541) BUN (test code = 12 mg/dL 7-23 9620404278) GLUCOSE (test code = 131 mg/dL 70-110 H 6913016968) CREATININE (test code = 0.56 mg/dL 0.50-1.04 9432392445) TOTAL BILI (test code = 0.5 mg/dL 0.1-1.3 3703947643) CALCIUM (test code = 9.4 mg/dL 8.6-10.6 8386368523) T PROTEIN (test code = 7.8 g/dL 6.3-8.2 1586984361) ALBUMIN (test code = 4.8 g/dL 3.5-5.0 0935706223) ALK PHOS (test code = 67 U/L 34-122 1417207222) ALTv (test code = 29 U/L 5-35 2-6) AST(SGOT) (test code = 32 U/L 13-40 8604601192) eGFR (test code = mL/min/1.73m2 2311609392) JESSICA (test code = JESSICA) Association of Glomerular Filtration Rate (GFR) and Staging of Kidney Disease* + --+ --+ ------+| GFR (mL/min/1.73 m2) ?| With Kidney Damage ?| ?Without Kidney Damage+ --------+ --------+ +| ?>90 ?| ?Stage one ?| ? Normal ?+ ---+ ---+ -------+| ?60-89 ?| ?Stage two ?| ? Decreased GFR ? + --+ --+ ------+| ?30-59 ?| ?Stage three ?| ? Stage three ? + --+ --+ ------+| ?15-29 ?| ?Stage four ? | ? Stage four ?+ ---+ ---+ -------+| ?<15 (or dialysis) ? ?| ?Stage five ? | ? Stage five ?+ ---+ ---+ -------+ *Each stage assumes the associated GFR level has been in effect for at least three months. ?Stages 1 to 5, with or without kidney disease, indicate chronic kidney disease. Notes: Determination of stages one and two (with eGFR >59mL/min/1.73 m2) requires estimation of kidney damage for at least three months as defined by structural or functional abnormalities of the kidney, manifested by either:Pathological abnormalities or Markers of kidney damage (including abnormalities in the composition of the blood or urine or abnormalities in imaging tests). Lab Interpretation Abnormal (test code = 69042-4) [facility] WITH [id number] 03:53:40 Test Item Value Reference Range Interpretation Comments WBC (test code = See_Comment H [Automated 6690-2) message] The sy stem which generated this result transmitted reference range : 4.30 - 11.10 10*3/?L. The reference range was not used to interpret this result as normal/abnormal . RBC (test code = See_Comment [Automated 789-8) message] The sy stem which generated this result transmitted reference range : 3.93 - 5.25 10*6/?L. The reference range was not used to interpret this result as normal/abnormal . HGB (test code = 13.3 g/dL 11.6-15.0 718-7) HCT (test code = 39.1 % 35.7-45.2 4544-3) MCV (test code = 84.3 fL 80.6-95.5 787-2) MCH (test code = 28.7 pg 25.9-32.8 785-6) MCHC (test code = 34.0 g/dL 31.6-35.1 786-4) RDW-SD (test code = 38.7 fL 39.0-49.9 L 31666-2) RDW-CV (test code = 12.6 % 12.0-15.5 788-0) PLT (test code = See_Comment [Automated 777-3) message] The sy stem which generated this result transmitted reference range : 166 - 358 10*3/ ?L. The reference r daniela was not used to interpret this result as normal/abnormal . MPV (test code = 9.2 fL 9.5-12.9 L 99045-9) NRBC/100 WBC (test See_Comment [Automat ed code = 5718990811) message] The system which generated this result transmitted reference range : 0.0 - 10.0 /100 WBCs. The refer ence range was not u sed to interpret th is result as normal/abnormal . NRBC x10^3 (test code See_Comment [Auto mated = 0072753859) message] The s ystem which generated this result transmitted reference range : 10*3/?L. The reference range was not used to interpret this result as normal/abnormal . GRAN MAT (NEUT) % 58.7 % (test code = 770-8) IMM GRAN % (test code 0.40 % = 1654777924) LYMPH % (test code = 32.5 % 736-9) MONO % (test code = 6.4 % 5905-5) EOS % (test code = 1.2 % 713-8) BASO % (test code = 0.8 % 706-2) GRAN MAT x10^3(ANC) 7.96 10*3/uL 1.88-7.09 H (test code = 0099442086) IMM GRAN x10^3 (test 0.05 10*3/uL 0.00-0.06 code = 0841537906) LYMPH x10^3 (test code 4.40 10*3/uL 1.32-3.29 H = 731-0) MONO x10^3 (test code 0.87 10*3/uL 0.33-0.92 = 742-7) EOS x10^3 (test code = 0.16 10*3/uL 0.03-0.39 711-2) BASO x10^3 (test code 0.11 10*3/uL 0.01-0.07 H = 704-7) REACT LYMPHS (test Rare code = 5934378094) Lab Interpretation Abnormal (test code = 42795-6) [facility] Test Item Value Reference Range Interpretation Comments MAGNESIUM (test code = 4760588916) 1.7 mg/dL 1.7-2.4 Lab Interpretation (test code = Normal 45851-9) [facility]OLIC PAN[facility] ([id number])2022-08-29 03:31:08 Test Item Value Reference Range Interpretation Comments NA (test code = 139 mmol/L 135-145 3221958916) K (test code = 4.4 mmol/L 3.5-5.0 8696615579) CL (test code = 109 mmol/L 98-108 H 5891348961) CO2 TOTAL (test code = 20 mmol/L 23-31 L 6295749810) AGAP (test code = 2-16 4665864287) BUN (test code = 10 mg/dL 7-23 1115664393) GLUCOSE (test code = 134 mg/dL 70-110 H 8523105505) CREATININE (test code = 0.54 mg/dL 0.50-1.04 7099723556) TOTAL BILI (test code = 0.3 mg/dL 0.1-1.1 5586023466) CALCIUM (test code = 9.0 mg/dL 8.6-10.6 5992531260) T PROTEIN (test code = 7.3 g/dL 6.3-8.2 8797696061) ALBUMIN (test code = 4.6 g/dL 3.5-5.0 9277930297) ALK PHOS (test code = 54 U/L 34-122 3553856628) ALTv (test code = 21 U/L 5-35 1742-6) AST(SGOT) (test code = 21 U/L 13-40 6163009369) eGFR (test code = mL/min/1.73m2 2932652000) JESSICA (test code = JESSICA) Association of Glomerular Filtration Rate (GFR) and Staging of Kidney Disease* + --+ --+ ------+| GFR (mL/min/1.73 m2) ?| With Kidney Damage ?| ?Without Kidney Damage+ --------+ --------+ +| ?>90 ?| ?Stage one ?| ? Normal ?+ ---+ ---+ -------+| ?60-89 ?| ?Stage two ?| ? Decreased GFR ? + --+ --+ ------+| ?30-59 ?| ?Stage three ?| ? Stage three ? + --+ --+ ------+| ?15-29 ?| ?Stage four ? | ? Stage four ?+ ---+ ---+ -------+| ?<15 (or dialysis) ? ?| ?Stage five ? | ? Stage five ?+ ---+ ---+ -------+ *Each stage assumes the associated GFR level has been in effect for at least three months. ?Stages 1 to 5, with or without kidney disease, indicate chronic kidney disease. Notes: Determination of stages one and two (with eGFR >59mL/min/1.73 m2) requires estimation of kidney damage for at least three months as defined by structural or functional abnormalities of the kidney, manifested by either:Pathological abnormalities or Markers of kidney damage (including abnormalities in the composition of the blood or urine or abnormalities in imaging tests). Lab Interpretation Abnormal (test code = 53732-3) [facility]:30[facility]48 Test Item Value Reference Range Interpretation Comments LIPASE (test code = 6575682877) 205 U/L 0-220 Lab Interpretation (test code = Normal 58027-9) [facility] Whole [id number] 18:41:37 Test Item Value Reference Range Interpretation Comments LACTIC ACID (test code = 3.55 mmol/L 0.50-2.20 H 8658173847) Lab Interpretation (test code = Abnormal 51058-9) [facility], [id number] 20:37:15 Test Item Value Reference Range Interpretation Comments PREG SERUM (test code Negative = 7318303175) JESSICA (test code = JESSICA) Less than 10 IU/L. ?If low titer or ectopic is suspected, resubmit specimen in 48-72 hours. [facility]. METABOLIC PANEL ([id number])2022-08-14 20:27:36 Test Item Value Reference Range Interpretation Comments NA (test code = 140 mmol/L 135-145 6254912953) K (test code = 2.8 mmol/L 3.5-5.0 LL 1550541063) CL (test code = 106 mmol/L 98-108 5609778056) CO2 TOTAL (test code = 13 mmol/L 23-31 L 4720702531) AGAP (test code = 2-16 H 6363367739) BUN (test code = 7 mg/dL 7-23 5504406023) GLUCOSE (test code = 181 mg/dL 70-110 H 9356622200) CREATININE (test code = 0.58 mg/dL 0.50-1.04 4859806062) TOTAL BILI (test code = 0.5 mg/dL 0.1-1.1 2797039379) CALCIUM (test code = 9.5 mg/dL 8.6-10.6 4089134636) T PROTEIN (test code = 8.1 g/dL 6.3-8.2 9284530883) ALBUMIN (test code = 5.1 g/dL 3.5-5.0 H 2232809387) ALK PHOS (test code = 76 U/L 34-122 5707753195) ALTv (test code = 34 U/L 5-35 1742-6) AST(SGOT) (test code = 24 U/L 13-40 2763733654) eGFR (test code = mL/min/1.73m2 5810638077) JESSICA (test code = JESSICA) Association of Glomerular Filtration Rate (GFR) and Staging of Kidney Disease* + --+ --+ ------+| GFR (mL/min/1.73 m2) ?| With Kidney Damage ?| ?Without Kidney Damage+ --------+ --------+ +| ?>90 ?| ?Stage one ?| ? Normal ?+ ---+ ---+ -------+| ?60-89 ?| ?Stage two ?| ? Decreased GFR ? + --+ --+ ------+| ?30-59 ?| ?Stage three ?| ? Stage three ? + --+ --+ ------+| ?15-29 ?| ?Stage four ? | ? Stage four ?+ ---+ ---+ -------+| ?<15 (or dialysis) ? ?| ?Stage five ? | ? Stage five ?+ ---+ ---+ -------+ *Each stage assumes the associated GFR level has been in effect for at least three months. ?Stages 1 to 5, with or without kidney disease, indicate chronic kidney disease. Notes: Determination of stages one and two (with eGFR >59mL/min/1.73 m2) requires estimation of kidney damage for at least three months as defined by structural or functional abnormalities of the kidney, manifested by either:Pathological abnormalities or Markers of kidney damage (including abnormalities in the composition of the blood or urine or abnormalities in imaging tests). Lab Interpretation Abnormal (test code = 25298-9) [facility] [id number] 20:10:31 Test Item Value Reference Range Interpretation Comments APTT Patient (test See_Comment [Automat ed code = 3173-2) message] The system which generated this result transmitted reference range : 23 - 38 Seconds . The reference range was not used to interpr et this result as normal/abnormal . JESSICA (test code = JESSICA) The [facility] patient population mean normal value for aPTT is 30 seconds. Lab Interpretation Normal (test code = 08700-4) [facility] / [id number] 20:08:27 Test Item Value Reference Range Interpretation Comments PROTIME PATIENT (test See_Comment [Auto mated message] code = 5964-2) The system wh ich generated this result transmitted ref erence range: 12.0 - 1 4.7 Seconds. The re ference range was not u sed to interpret this result as normal/abnor mal. INR (test code = 6301-6) Nor mal INR <1.1; Warfarin Therap eutic range 2.0 to 3. 0 or 2.5 to 3.5, dep ending upon the indica tions. Lab Interpretation (test Normal code = 32282-8) [facility] WITH [id number] 20:00:28 Test Item Value Reference Range Interpretation Comments WBC (test code = See_Comment H [Automated 6290-2) message] The sy stem which generated this result transmitted reference range : 4.30 - 11.10 10*3/?L. The reference range was not used to interpret this result as normal/abnormal . RBC (test code = See_Comment [Automated 789-8) message] The sy stem which generated this result transmitted reference range : 3.93 - 5.25 10*6/?L. The reference range was not used to interpret this result as normal/abnormal . HGB (test code = 13.1 g/dL 11.6-15.0 718-7) HCT (test code = 38.1 % 35.7-45.2 4544-3) MCV (test code = 82.1 fL 80.6-95.5 787-2) MCH (test code = 28.2 pg 25.9-32.8 785-6) MCHC (test code = 34.4 g/dL 31.6-35.1 786-4) RDW-SD (test code = 36.1 fL 39.0-49.9 L 25464-7) RDW-CV (test code = 12.2 % 12.0-15.5 788-0) PLT (test code = See_Comment H [Automated 777-3) message] The sy stem which generated this result transmitted reference range : 166 - 358 10*3/ ?L. The reference r daniela was not used to interpret this result as normal/abnormal . MPV (test code = 9.7 fL 9.5-12.9 66731-9) NRBC/100 WBC (test See_Comment [Automat ed code = 9652771479) message] The system which generated this result transmitted reference range : 0.0 - 10.0 /100 WBCs. The refer ence range was not u sed to interpret th is result as normal/abnormal . NRBC x10^3 (test code See_Comment [Auto mated = 0906910292) message] The s ystem which generated this result transmitted reference range : 10*3/?L. The reference range was not used to interpret this result as normal/abnormal . GRAN MAT (NEUT) % 67.0 % (test code = 770-8) IMM GRAN % (test code 0.30 % = 0572543316) LYMPH % (test code = 28.0 % 736-9) MONO % (test code = 4.1 % 5905-5) EOS % (test code = 0.2 % 713-8) BASO % (test code = 0.4 % 706-2) GRAN MAT x10^3(ANC) 8.68 10*3/uL 1.88-7.09 H (test code = 9861792301) IMM GRAN x10^3 (test 0.04 10*3/uL 0.00-0.06 code = 8617076834) LYMPH x10^3 (test code 3.62 10*3/uL 1.32-3.29 H = 731-0) MONO x10^3 (test code 0.53 10*3/uL 0.33-0.92 = 742-7) EOS x10^3 (test code = 0.03 10*3/uL 0.03-0.39 711-2) BASO x10^3 (test code 0.05 10*3/uL 0.01-0.07 = 704-7) Lab Interpretation Abnormal (test code = 80294-4) [facility] Whole [id number] 19:58:01 Test Item Value Reference Range Interpretation Comments LACTIC ACID (test code = 6.64 mmol/L 0.50-2.20 H 3248692009) Lab Interpretation (test code = Abnormal 79238-6) [facility]"
[2023-02-22 10:21] LABS: Absolute Lymphocytes (CBC) 2.7 K/uL (0.7-4.9); Hematocrit 41.3 % (36.0-45.0); Lymphocytes % 21.8 % (15.3-44.8); MCV 84.8 fL (80-100); MPV 7.1 fL (7.6-11.3); RBC Red Blood Cell Count 4.87 M/uL (3.86-4.86)
[2023-02-22 10:40] LABS: Potassium 3.1 mEq/L (3.5-5.1); Troponin High Sensitivity 3.3 pg/mL (<58.9)
--- NOTE | 2023-02-22 10:58 | RAD REPORT ---
EXAM DESCRIPTION: Margy Single View02/22/2023 10:35 am CLINICAL HISTORY: Shortness of breath COMPARISON: 2021 FINDINGS: The lungs appear clear of acute infiltrate. The heart is normal size IMPRESSION: No acute abnormalities displayed
--- NOTE | 2023-02-22 11:50 | ER ---
Nurse's Notes [facility] Name: Sowmya Juarez Age: 37 yrs Sex: Female : 1985 Arrival Date: 02/22/2023 Time: 09:47 Bed 3 Private MD: Diagnosis: Acute allergic reaction Presentation: 02/22 09:49 Chief complaint: EMS states: pt has a history of MSAS. states her last episode was in [facility] Sep. pt administered epi and a an JOCE treatment at home. pt was also given another JOCE en route as well as 0.3mg of IM epi. pt is 98% on RA. Coronavirus screen: At this time, the client does not indicate any symptoms associated with coronavirus-19. Ebola Screen: No symptoms or risks identified at this time. Onset: The symptoms/episode began/occurred suddenly, this morning. Anaphylaxis evaluation, the patient reports or I have noted the following symptoms which indicate a significant risk of anaphylaxis: shortness of breath tachypnea. Initial Sepsis Screen: Does the patient meet any 2 criteria? No. Patient's initial sepsis screen is negative. Does the patient have a suspected source of infection? No. Patient's initial sepsis screen is negative. Risk Assessment: Do you want to hurt yourself or someone else? Patient reports no desire to harm self or others. Onset of symptoms was February 22, 2023. 09:49 Method Of Arrival: EMS: [facility] 09:49 Acuity: KALYN 2 [facility] Triage Assessment: 09:52 General: Appears distressed, uncomfortable, Behavior is cooperative, appropriate for [facility] age, anxious. Pain: Denies pain. EENT: Throat is clear bilaterally with gag reflex present. Neuro: Viera Agitation-Sedation Scale (RASS): 0 - Alert and Calm Level of Consciousness is awake, alert, obeys commands, Oriented to person, place, time, situation, Appropriate for age. Cardiovascular: Denies chest pain, Heart tones S1 S2 present Capillary refill < 3 seconds Rhythm is sinus tachycardia. Respiratory: Airway is patent Trachea midline Respiratory effort is even, labored, Respiratory pattern is symmetrical, tachypnea Breath sounds with wheezes bilaterally. GI: No signs and/or symptoms were reported involving the gastrointestinal system. : No signs and/or symptoms were reported regarding the genitourinary system. Derm: No signs and/or symptoms reported regarding the dermatologic system. Skin is intact, Skin is pink, warm \T\ dry. Musculoskeletal: No signs and/or symptoms reported regarding the musculoskeletal system. Circulation, motion, and sensation intact. Capillary refill < 3 seconds, Range of motion: intact in all extremities. 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 Flu vaccine is not up to date. - Social history:: Smoking status: Patient denies any tobacco usage or history of. Screenin:54 [facility] ED Fall Risk Assessment (Adult) History of falling in the last 3 months, kc6 including since admission No falls in past 3 months (0 pts) Confusion or Disorientation No (0 pts) Intoxicated or Sedated No (0 pts) Impaired Gait No (0 pts) Mobility Assist Device Used No (0 pt) Altered Elimination No (0 pt) Score/Fall Risk Level 0 - 2 = Low Risk Oriented to surroundings, Maintained a safe environment, Educated pt \T\ family on fall prevention, incl call for assistance when getting out of bed, Assessed \T\ reinforced patient's understanding of fall precautions, Hourly rounding (assess needs \T\ fall precautionary measures) done. Abuse screen: Denies threats or abuse. Denies injuries from another. Nutritional screening: No deficits noted. Tuberculosis screening: No symptoms or risk factors identified. Assessment: 09:54 Reassessment: please see triage assessment. kc6 10:00 Pain: Denies pain. Neuro: Level of Consciousness is awake, alert, obeys commands, jl7 Oriented to person, place, time, situation. Cardiovascular: Heart tones present Rhythm is sinus tachycardia. Respiratory: Airway is patent Respiratory effort is even, labored, Respiratory pattern is symmetrical, tachypnea Breath sounds are clear in left posterior upper lobe, right posterior upper lobe, left posterior lower lobe, right posterior middle lobe and right posterior lower lobe Breath sounds with wheezes in mediastinum, right upper lobe and left upper lobe. Derm: Skin is diaphoretic, Skin is flushed, Skin temperature is warm. 11:00 Reassessment: Patient appears in no apparent distress at this time. No changes from kc6 previously documented assessment. Patient and/or family updated on plan of care and expected duration. Pain level reassessed. Patient is alert, oriented x 3, equal unlabored respirations, skin warm/dry/pink. Vital Signs: 09:49 Pulse 149; Resp 26 S; Temp 99.8(O); Pulse Ox 98% on R/A; Weight 85.28 kg (R); Height 5 kc6 ft. 3 in. (R); Pain 0/10; 10:00 BP 166 / 105; Pulse 140; Resp 27 S; Pulse Ox 98% on R/A; Pain 0/10; jl7 10:09 BP 124 / 82; kc6 11:45 BP 112 / 76; Pulse 86; Resp 20; Pulse Ox 98% on R/A; iw 09:49 Body Mass Index 33.30 (85.28 kg, 160.02 cm) kc6 09:49 Pain Scale: Adult kc6 10:00 Pain Scale: Adult jl7 ED Course: 09:49 Patient arrived in ED. kc6 09:49 Amanda Lopes MD is Attending Physician. sp3 09:50 Client placed on continuous cardiac and pulse oximetry monitoring. NIBP monitoring jl7 applied. 09:50 EKG done, by ED staff, reviewed by Amanda Lopes MD. Inserted saline lock: 22 gauge in jl7 right forearm, using aseptic technique. 09:52 Triage completed. kc6 09:52 Arm band placed on. kc6 09:54 Patient has correct armband on for positive identification. Bed in low position. Call kc light in reach. Side rails up X2. Adult w/ patient. 09:56 Carmen Masters, BHAVIK is Primary Nurse. kc6 10:04 Inserted saline lock: 22 gauge in right forearm, using aseptic technique. ,using kc6 aseptic technique. placed by Kalpesh Arce RN Blood collected. 10:37 XRAY Chest (1 view) In Process Unspecified. EDMS 11:59 No provider procedures requiring assistance completed. IV discontinued, intact, kc6 bleeding controlled, No redness/swelling at site. Pressure dressing applied. Administered Medications: 10:03 Drug: Famotidine IVP 10 mg Route: IVP; Site: right forearm; kc6 11:50 Follow up: Response: No adverse reaction kc6 10:04 Drug: MethylPrednisoLONE IVP 125 mg Route: IVP; Site: right forearm; kc6 11:50 Follow up: Response: No adverse reaction kc6 10:04 Drug: diphenhydrAMINE IVP 25 mg Route: IVP; Site: right forearm; kc6 11:50 Follow up: Response: No adverse reaction kc6 10:13 Drug: DuoNeb Nebulize (2.5 mg - 0.5 mg) 3 ml Route: Nebulizer; kc6 11:50 Follow up: Response: No adverse reaction kc6 11:58 Drug: Potassium Chloride PO 20 mEq Route: PO; kc6 Medication: 10:00 VIS not applicable for this client. jl7 Outcome: 11:48 Discharge ordered by . dali 11:59 Discharged to home ambulatory, with family. kc6 11:59 Condition: improved 11:59 Discharge instructions given to patient, Instructed on discharge instructions, follow up and referral plans. medication usage, Demonstrated understanding of instructions, follow-up care, medications, Prescriptions given X 1. 11:59 Patient left the ED. kc6 Signatures: Dispatcher [employer] EDMS Dee Smalls RN RN iw Leal, Jahala, RN RN jl7 Amanda Lopes MD MD sp3 Carmen Masters RN RN kc6
--- NOTE | 2023-02-22 11:50 | EDPHYS ---
Physician Documentation [facility] Name: Sowmya Juarez Age: 37 yrs Sex: Female : 1985 Arrival Date: 02/22/2023 Time: 09:47 Bed 3 Private MD: ED Physician Amanda Lopes HPI: 02/22 09:58 This 37 yrs old Female presents to ER via EMS with complaints of Allergic Reaction. sp3 10:04 This 37 yrs old Female presents to ER via EMS with complaints of Allergic Reaction. 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 Patient took her EpiPen at home and EMS delivered additional epinephrine 0.3 mg in route intramuscularly. Patient also had p.o. Benadryl at home. She is feeling much improved although the side effects of the epinephrine are evident. She currently denies any headache or chest pain but states that she is still having some shortness of breath. Skin hives are improved. Denies any abdominal pain, nausea, vomiting, diarrhea or any feelings of throat closing or oral swelling at this time.. 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 Flu vaccine is not up to date. - Social history:: Smoking status: Patient denies any tobacco usage or history of. ROS: 10:05 Constitutional: Negative for fever, chills, and weight loss, Eyes: Negative for injury, sp3 pain, redness, and discharge, Neck: Negative for injury, pain, and swelling, Cardiovascular: Negative for chest pain, palpitations, and edema, Abdomen/GI: Negative for abdominal pain, nausea, vomiting, diarrhea, and constipation, Back: Negative for injury and pain, MS/Extremity: Negative for injury and deformity, Skin: Negative for injury, rash, and discoloration, Neuro: Negative for headache, weakness, numbness, tingling, and seizure, Psych: Negative for depression, anxiety, suicide ideation, homicidal ideation, and hallucinations, Allergy/Immunology: Negative for hives, rash, and allergies, Endocrine: Negative for neck swelling, polydipsia, polyuria, polyphagia, and marked weight changes. 10:05 All other systems are negative. Exam: 10:05 Constitutional: This is a well developed, well nourished patient who is awake, alert, sp3 and in no acute distress. Head/Face: Normocephalic, atraumatic. Eyes: Pupils equal round and reactive to light, extra-ocular motions intact. Lids and lashes normal. Conjunctiva and sclera are non-icteric and not injected. Cornea within normal limits. Periorbital areas with no swelling, redness, or edema. ENT: Nares patent. No nasal discharge, no septal abnormalities noted. External auditory canals are clear. Oropharynx with no redness, swelling, or masses, exudates, or evidence of obstruction, uvula midline. Mucous membranes moist. Neck: Trachea midline, no thyromegaly or masses palpated, and no cervical lymphadenopathy. Supple, full range of motion without nuchal rigidity, or vertebral point tenderness. No Meningismus. Chest/axilla: Normal chest wall appearance and motion. Nontender with no deformity. No lesions are appreciated. Abdomen/GI: Soft, non-tender, with normal bowel sounds. No distension or tympany. No guarding or rebound. No evidence of tenderness throughout. Back: No spinal tenderness. No costovertebral tenderness. Full range of motion. MS/ Extremity: Pulses equal, no cyanosis. Neurovascular intact. Full, normal range of motion. Neuro: Awake and alert, GCS 15, oriented to person, place, time, and situation. Cranial nerves II-XII grossly intact. Motor strength 5/5 in all extremities. Sensory grossly intact. Cerebellar exam normal. Normal gait. Psych: Awake, alert, with orientation to person, place and time. Behavior, mood, and affect are within normal limits. 10:05 Chest/axilla: Patient is tachycardic at 140. Coarse and rhonchorous breath sounds bilaterally noted. Minimal wheezing.. 10:05 ECG was reviewed by the Attending Physician. EKG demonstrates sinus tachycardia at 140 bpm with normal intervals, normal QRS, normal axis, nonspecific diffuse rate related ST/T changes without evidence of acute ischemia. Vital Signs: 09:49 Pulse 149; Resp 26 S; Temp 99.8(O); Pulse Ox 98% on R/A; Weight 85.28 kg (R); Height 5 kc6 ft. 3 in. (R); Pain 0/10; 10:00 BP 166 / 105; Pulse 140; Resp 27 S; Pulse Ox 98% on R/A; Pain 0/10; jl7 10:09 BP 124 / 82; kc6 11:45 BP 112 / 76; Pulse 86; Resp 20; Pulse Ox 98% on R/A; iw 09:49 Body Mass Index 33.30 (85.28 kg, 160.02 cm) kc6 09:49 Pain Scale: Adult kc6 10:00 Pain Scale: Adult jl7 MDM: 09:56 Patient medically screened. sp3 10:06 Data reviewed: vital signs, nurses notes, EMS record, old medical records, lab test sp3 result(s), EKG, radiologic studies. ED course: 37-year-old female with known multiple past idiopathic anaphylactic episodes. She presents again for the same. She is much improved with the total of 0.6 mg of epinephrine she has received thus far. We will add Solu-Medrol, Pepcid, and Benadryl IV and observe patient while she recovers in the ED. Likely discharge home once she is improved. Chest x-ray and labs will also be drawn as a precautionary measure. Nebulizer of albuterol and Atrovent will also be ordered. I am not highly suspicious for any other pathology except for existing prior allergic reaction. Remainder of differential has been clinically ruled out.. 11:46 ED course: Patient is much improved and vital signs are now normal. We will replace her sp3 potassium and safely discharge her home. She states she has multiple EpiPen's and needs no refills on any of her medications. Also placed on 5-day course of prednisone.. 02/22 09:56 Order name: Basic Metabolic Panel; Complete Time: 11:44 sp3 02/22 09:56 Order name: CBC with Diff; Complete Time: 11:44 sp3 02/22 09:56 Order name: Troponin HS; Complete Time: 11:44 sp3 02/22 09:56 Order name: XRAY Chest (1 view); Complete Time: 11:44 sp3 02/22 09:56 Order name: EKG; Complete Time: 09:56 sp3 02/22 09:56 Order name: Cardiac monitoring; Complete Time: 09:57 sp3 02/22 09:56 Order name: EKG - Nurse/Tech; Complete Time: 09:57 sp3 02/22 09:56 Order name: IV Saline Lock; Complete Time: 10:04 sp3 02/22 09:56 Order name: Labs collected and sent; Complete Time: 10:04 sp3 02/22 09:56 Order name: O2 Per Protocol; Complete Time: 09:57 sp3 02/22 09:56 Order name: O2 Sat Monitoring; Complete Time: 09:57 sp3 Administered Medications: 10:03 Drug: Famotidine IVP 10 mg Route: IVP; Site: right forearm; kc6 11:50 Follow up: Response: No adverse reaction kc6 10:04 Drug: MethylPrednisoLONE IVP 125 mg Route: IVP; Site: right forearm; kc6 11:50 Follow up: Response: No adverse reaction kc6 10:04 Drug: diphenhydrAMINE IVP 25 mg Route: IVP; Site: right forearm; kc6 11:50 Follow up: Response: No adverse reaction kc6 10:13 Drug: DuoNeb Nebulize (2.5 mg - 0.5 mg) 3 ml Route: Nebulizer; kc6 11:50 Follow up: Response: No adverse reaction kc6 11:58 Drug: Potassium Chloride PO 20 mEq Route: PO; kc6 Disposition Summary: 02/22/23 11:48 Discharge Ordered Location: Home sp3 Condition: Stable sp3 Diagnosis - Acute allergic reaction sp3 Followup: sp3 - With: Private Physician - When: Upon discharge from the Emergency Department - Reason: Continuance of care Discharge Instructions: - Discharge Summary Sheet sp3 - Hives sp3 Forms: - Medication Reconciliation Form sp3 - Thank You Letter sp3 - Antibiotic Education sp3 - Prescription Opioid Use sp3 Prescriptions: - Prednisone 20 mg Oral Tablet - take 2 tablets by ORAL route once daily for 5 days; 10 tablet; Refills: 0, sp3 Product Selection Permitted Signatures: Dispatcher [employer] Amanda Orlando MD MD sp3 Carmen Masters RN RN kc6
[2023-02-22] MEDS ORDERED: POTASSIUM CL SA 10 MEQ TAB PO ONE (12:03)
[2023-02-22 12:08] VITALS: TEMP 99.8; O2SAT 98
[2023-02-22 12:13] VITALS: BP 112/76
--- NOTE | 2023-02-24 19:16 | EKG ---
Test Date: 2023-02-22 Test Time: 09:53:47 [employer]: [place] MEASUREMENT RESULTS: Intervals: Rate: 144 GA: 128 QRSD: 94 QT: 306 QTc: 473 [place]: P: 58 GA: 128 QRS: 36 T: 60 INTERPRETIVE STATEMENTS: Sinus tachycardia Possible Left atrial enlargement Nonspecific ST abnormality Abnormal ECG Compared to ECG 04/12/2022 13:03:19 ST (T wave) deviation now present Myocardial infarct finding no longer present Electronically Signed On 02-24-23 19:11:54 CDT by Carlos Abrams
== END 2023-02-22 11:59 | disposition home or self-care (01) ==
LOC: ER 09:47
DX: R06.82 Tachypnea, not elsewhere classified (principal); I10 Essential (primary) hypertension; D89.40 Mast cell activation, unspecified; Z88.1 Allergy status to other antibiotic agents
CPT/HCPCS: 93005; 85025; 80048; 36415; 84484; 71045; 94640; 96375; 96374; 99285; J1200; J7613; J7644; J2930

== ENCOUNTER 2023-03-13 21:50 | Emergency (ER) | payer OTHER ==
[2023-03-13] MEDS ORDERED: DIPHENHYDRAMINE 50 MG/ML VIAL ONE (22:01)
[2023-03-13] MEDS ORDERED: METHYLPREDNISOLONE 125 MG INJ ONE (22:01)
[2023-03-13] MEDS ORDERED: FAMOTIDINE 20 MG/2 ML VIAL IV ONE (22:02)
--- OUTSIDE RECORDS SUMMARY | 2023-03-13 22:03 | XMS REPORT | Continuity of Care Document ---
:1985 Author Organization [facility] t Address [address] [place] [address] Care Team Providers Name Role Phone Karma Jackson Primary Care Physician MARIUM DAWSON Attending Clinician Unavailable CATRACHITA MERCADO Attending Clinician Unavailable Catrachita Mercado MD Attending Clinician Pac-Lab Attending Clinician Unavailable PAIGE JONES Attending Clinician Unavailable Paige Tate Attending Clinician Unknown, Attending Attending Clinician Unavailable AMANDA MCKEON Attending Clinician Unavailable Amanda Mckeon MD Attending Clinician RACHNA BUSH Attending Clinician Unavailable Rachna Bush MD Attending Clinician Doctor Unassigned, [place] Attending Clinician Unavailable MORGAN VARGAS Attending Clinician Unavailable Morgan Vargas DO Attending Clinician MENG GALICIA Attending Clinician Unavailable Meng Galicia MD Attending Clinician AMANDA POWER Attending Clinician Unavailable Amanda Power DO Attending Clinician Nurse, [facility] Int Med Allergy Attending Clinician Unavailable Lorene Roman MD Attending Clinician [phone] LORENE ROMAN Attending Clinician Unavailable Marley Tello RN Attending Clinician Unavailable ELIEZER KLEIN Attending Clinician Unavailable Cam BURKETT, Frandy Muhammad Attending Clinician Eliezer Klein DO Attending Clinician Genaro Eubanks MD Attending Clinician Christopher [facility], Danyel Attending Clinician Unavailable Juan BURKETT, Rosio Attending Clinician ELAINECristofer PALM Attending Clinician Unavailable Elaine PACCristofer Attending Clinician Pob, [facility] Main Attending Clinician Unavailable Jones [facility], [place] Attending Clinician Unavailable Samir BURKETT, Marium Attending [...] Clinician Anahy Owen MD Admitting Clinician TIANA SMITH Admitting Clinician Unavailable Tiana Smith MD Admitting Clinician ANAHY OWEN Admitting Clinician Unavailable Payers Payer Name Policy Type Policy Number Effective Date Expiration Date Odalis mendoza MEDICARE PART A [id number] 2014 \\T\\ B 00:00:00 MEDICAID OF [place] [id number] 2014 00:00:00 Problems Condition Condition Condition Status Onset Resolution Last Treating Co mments Source Name Details Category Date Date Treatment Clinician Date Anaphylaxi Anaphylaxi Disease Active 2021-09 U nivers s, initial s, initial 2-09 [place] [facility] 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 ICD10 Diagnosis Term [employer] Utility Allergies, Adverse Reactions, Alerts Allergy Allergy [...] tobacco Passive smoker Un iversity of use [facility] Branch History [facility] o f [facility] o f Alcohol Std Drinks [facility] Branch History [facility] o f Alcohol Binge [facility] Branch Cigarettes smoked 2023-02-04 2023-02-04 Univers ity of current (pack per 00:00:00 [facility]:00:00 [facility] - Reported Branch Cigarette 2023-02-04 2023-02-04 University of pack-years 00:00:00 00:00:00 [facility] Tobacco use and 2023-02-04 2023-02-04 Smokeless tobacco Un iversity of exposure 00:00:00 00:00:00 non-user [facility] Alcohol intake 2023-02-04 2023-02-04 Current drinker Unive rsity of 00:00:00 00:00:00 of alcohol [facility] (finding) Branch Exposure to 2022-12-23 2023-01-02 Not [facility] of SARS-CoV-2 (event) 00:00:00 09:43:00 [facility] Alcohol Comment 2018-05-11 2018-05-11 Occasional Universit y of 00:00:00 00:00:00 [facility] Sex [birth year] Universit y of 00:00:00 00:00:00 [facility] Smoking Status Start Date Stop Date Source Ex-smoker 2023-02-04 00:00:00 2023-02-04 [facility] Medications Ordered Filled Start Stop Current Ordering Indication Dosage Frequency Signature Comments Components Source Medication Medication Date Date Medication? Clinician (SIG) Name Name EPINEPHrine Yes [id number] .3mg 0.3 mL by Univers (EPIPEN) -01 Intramuscu ity o f 0.3 mg/0.3 00:00: lar route [place] mL 00 as needed Medical injection (anaphylax Bran ch is). famotidine Yes [id number] 20mg Take 1 U nivers (PEPCID) 20 6-01 tablet by ity of mg tablet 00:00: mouth in [facility] [place] [facility] the Medical morning Branch and 1 tablet in the evening. montelukast Yes [id number] 10mg Take 1 Univers 10 mg 6-01 tablet by ity of tablet 00:00: mouth in [place] [address] the Medical morning. Branch ketotifen 1 Yes [id number] 2mg Take 2 Univers MG capsule 6-01 capsules ity o f 00:00: by mouth in the Medical morning Branch and 2 capsules in the evening. predniSONE Yes [id number] Take 3 U nivers 20 mg 6-01 tablets PO ity of tablet 00:00: with [place] 00 Pepcid and Medical Benadryl Branch in case of an Allergic Reaction EPINEPHrine Yes [id number] .3mg 0.3 mL by Univers (EPIPEN) 6-01 Intramuscu ity o f 0.3 mg/0.3 00:00: lar route [place] mL 00 as needed Medical injection (anaphylax Bran ch is). famotidine Yes [id number] 20mg Take 1 U nivers (PEPCID) 20 6-01 tablet by ity of mg tablet 00:00: mouth in [facility] the Medical morning Branch and 1 tablet in the evening. montelukast 2022-0 Yes [id number] 10mg Take 1 Univers 10 mg 6-01 tablet by ity of tablet 00:00: mouth in [place] the Medical morning. Branch ketotifen 1 2022-0 Yes [id number] 2mg Take 2 Univers MG capsule 6-01 capsules ity o f 00:00: by mouth 00 in the Medical morning Branch and 2 capsules in the evening. predniSONE 2022-0 Yes [id number] Take 3 U nivers 20 mg 6-01 tablets PO ity of tablet 00:00: with [place] 00 Pepcid and Medical Benadryl Branch in case of an Allergic Reaction EPINEPHrine 2022-0 Yes [id number] .3mg 0.3 mL by Univers (EPIPEN) 6-01 Intramuscu ity o f 0.3 mg/0.3 00:00: lar route [place] mL 00 as needed Medical injection (anaphylax Bran ch is). famotidine 2022-0 Yes [id number] 20mg Take 1 U nivers (PEPCID) 20 6-01 tablet by ity of mg tablet 00:00: mouth in [facility] [place] [facility] the Medical morning Branch and 1 tablet in the evening. montelukast 2022-0 Yes [id number] 10mg Take 1 Univers 10 mg 6-01 tablet by ity of tablet 00:00: mouth in [place] the Medical morning. Branch ketotifen 1 2022-0 Yes [id number] 2mg Take 2 Univers MG capsule 6-01 capsules ity o f 00:00: by mouth in the Medical morning Branch and 2 capsules in the evening. predniSONE 2022-0 Yes [id number] Take 3 U nivers 20 mg 6-01 tablets PO ity of tablet 00:00: with [place] 00 Pepcid and Medical Benadryl Branch in case of an Allergic Reaction EPINEPHrine 2022-0 Yes [id number] .3mg 0.3 mL by Univers (EPIPEN) 6-01 Intramuscu ity o f 0.3 mg/0.3 00:00: lar route [place] mL 00 as needed Medical injection (anaphylax Bran ch is). famotidine 2022-0 Yes [id number] 20mg Take 1 U nivers (PEPCID) 20 6-01 tablet by ity of mg tablet 00:00: [place] the [place] morning Branch and 1 tablet in the evening. montelukast 0 Yes [id number] 10mg Take 1 Univers 10 mg 6-01 tablet by ity of tablet 00:00: mouth in 00 the Medical morning. Branch ketotifen 1 Yes [id number] 2mg Take 2 Univers MG capsule 6-01 capsules ity o f 00:00: by mouth 00 in the Medical morning Branch and 2 capsules in the evening. predniSONE Yes [id number] Take 3 U nivers 20 mg 6-01 tablets PO ity of tablet 00:00: with [place] 00 Pepcid and Medical Benadryl Branch in case of an Allergic Reaction EPINEPHrine Yes [id number] .3mg 0.3 mL by Univers (EPIPEN) 6- Intramuscu ity o f 0.3 mg/0.3 00:00: lar route [place] mL 00 as needed Medical injection (anaphylax Bran ch is). famotidine Yes [id number] 20mg Take 1 U nivers (PEPCID) 20 6-01 tablet by ity of mg tablet 00:00: mouth in [facility] the Medical morning Branch and 1 tablet in the evening. montelukast Yes [id number] 10mg Take 1 Univers 10 mg 6-01 tablet by ity of tablet 00:00: mouth in [place] the Medical morning. Branch ketotifen 1 Yes [id number] 2mg Take 2 Univers MG capsule 6-01 capsules ity o f 00:00: by mouth in the Medical morning Branch and 2 capsules in the evening. predniSONE Yes Take 3 Unive rs 20 mg 6-01 tablets PO ity of tablet 00:00: with [place] 00 Pepcid and Medical Benadryl Branch in case of an Allergic Reaction dexamethaso 2022- No [id number] 10mg U nivers ne 01-02 ity of (DECADRON) 14:54: 14:56 [place] injection 00 :00 Medical 10 mg Branch dexamethaso 2022- No [id number] 10mg 10 mg, Univers ne 01-02 Intramuscu ity of (DECADRON) 14:54: 14:56 lar, ONCE, [place] injection 00 :00 1 dose, On Medi abhishek 10 mg Sat Branch 01/02/23 at 1000, Routine methylPREDN 2022-0 Yes [id number] follow Univers ISolone 01-02 package ity of (MEDROL, 00:00: directions [place] EHSAN,) 4 mg 00 Medical tablets Branch methylPREDN 2022-0 Yes [id number] follow Univers ISolone 01-02 package ity of (MEDROL, 00:00: directions [place] EHSAN,) 4 mg 00 Medical tablets Branch methylPREDN 2022-0 2023- No [id number] follow Univers ISolone 01-02 package ity of (MEDROL, 00:00: 00:00 directions [place] EHSAN,) 4 mg 00 :00 Medical tablets Branch methylPREDN 2022-0 2023- No [id number] follow Univers ISolone 01-02 package ity of (MEDROL, 00:00: 00:00 directions [place] EHSAN,) 4 mg 00 :00 Medical tablets Branch methylPREDN 2022-0 3- No [id number] follow Univers ISolone 01-02 package ity of (MEDROL, 00:00: 00:00 directions [place] EHSAN,) 4 mg 00 :00 Medical tablets Branch benzonatate 2022- Yes [id number] 200mg Take 1 Univers 200 mg 01-02-10 capsule by ity of capsule 00:00: 04:59 mouth 3 [place] 00 :00 (three) Medical times Branch daily as needed for Cough for up to 10 days. benzonatate 2022- Yes [id number] 200mg Take 1 Univers 200 mg 01-02-10 capsule by ity of capsule 00:00: 04:59 mouth 3 [place] 00 :00 (three) Medical times Branch daily as needed for Cough for up to 10 days. doxycycline 2022- Yes [id number] 100mg Take 1 Univers hyclate 100 01-02-07 tablet by it y of mg tablet 00:00: 04:59 mouth in [place] 00 :00 the Medical morning Branch and 1 tablet in the evening. Do all this for 7 days. doxycycline 2022- Yes [id number] 100mg Take 1 Univers hyclate 100 01-02-07 [...] tablet by ity of 00:00: mouth at [place] [address] bedtime. Medical Branch risperiDONE 3-0 Yes 3mg Take 1 Univ ers 3 mg tablet 4-24 tablet by ity of 00:00: mouth at [place] [address] bedtime. Medical Branch risperiDONE 3-0 Yes 3mg Take 1 Univ ers 3 mg tablet 4-24 tablet by ity of 00:00: mouth at [place] [address] bedtime. Medical Branch risperiDONE 3-0 Yes 3mg Take 1 Univ ers 3 mg tablet 4-24 tablet by ity of 00:00: mouth at [place] [address] bedtime. Medical Branch risperiDONE 3-0 Yes 3mg Take 1 Univ ers 3 mg tablet 4-24 tablet by ity of 00:00: mouth at [place] [address] bedtime. Medical Branch risperiDONE 3-0 Yes 3mg Take 1 Univ ers 3 mg tablet 4-24 tablet by ity of 00:00: mouth at [place] [address] bedtime. Medical Branch risperiDONE 3-0 Yes 3mg Take 1 Univ ers 3 mg tablet 4-24 tablet by ity of 00:00: mouth at [place] [address] bedtime. Medical Branch DULoxetine 3-0 Yes Univers [...] Wed12/07/22 at 1215, 1 mL famotidine Yes [id number] Take 2 U nivers (PEPCID) 20 4-03 tablets PO it y of mg tablet 00:00: in case of [place] 00 Allergic Medical Reaction Branch diphenhydrA 2022-0 Yes [id number] Take 2 Univers MINE 4-03 tablets PO ity of (BENADRYL) 00:00: with [place] 25 mg 00 Prednisone Medical capsule and Pepcid Branch in case of an Allergic Reaction predniSONE 3-0 Yes [id number] Take 3 U nivers 20 mg 4-03 tablets PO ity of tablet 00:00: with Pepcid and Medical Benadryl Branch in case of an Allergic Reaction albuterol 3-0 Yes [id number] 2{puff} Inhale 2 Univers 90 4-03 Puffs ity of mcg/actuati 00:00: every 4 [place] on inhaler 00 (four) Medical hours as Branch needed for Wheezing, Shortness of Breath or Bronchospa sm (Allergic Reaction). famotidine 3-0 Yes [id number] Take 2 U nivers (PEPCID) 20 4-03 tablets PO it y of mg tablet 00:00: in case of [place] 00 Allergic Medical Reaction Branch diphenhydrA 2023-0 Yes [id number] Take 2 Univers MINE 4-03 tablets PO ity of (BENADRYL) 00:00: with [place] 25 mg 00 Prednisone Medical capsule and Pepcid Branch in case of an Allergic Reaction predniSONE 2022-0 Yes [id number] Take 3 U nivers 20 mg 4-03 tablets PO ity of tablet 00:00: with Pepcid and Medical Benadryl Branch in case of an Allergic Reaction albuterol 2022-0 Yes [id number] 2{puff} Inhale 2 Univers 90 4-03 Puffs ity of mcg/actuati 00:00: every 4 [place] on inhaler 00 (four) Medical hours as Branch needed for Wheezing, Shortness of Breath or Bronchospa sm (Allergic Reaction). famotidine 3-0 Yes [id number] Take 2 U nivers (PEPCID) 20 4-03 tablets PO it y of mg tablet 00:00: in case of [place] 00 Allergic Medical Reaction Branch diphenhydrA 2023-0 Yes [id number] Take 2 Univers MINE 4-03 tablets PO ity of (BENADRYL) 00:00: with [place] 25 mg 00 Prednisone Medical capsule and Pepcid Branch in case of an Allergic Reaction predniSONE 3-0 Yes [id number] Take 3 U nivers 20 mg 4-03 tablets PO ity of tablet 00:00: with Pepcid and Medical Benadryl Branch in case of an Allergic Reaction albuterol Yes [id number] 2{puff} Inhale 2 Univers 90 4-03 Puffs ity of mcg/actuati 00:00: every 4 [place] on inhaler 00 (four) Medical hours as Branch needed for Wheezing, Shortness of Breath or Bronchospa sm (Allergic Reaction). diphenhydrA 2022-0 Yes [id number] Take 2 Univers MINE 4-03 tablets PO ity of (BENADRYL) 00:00: with [place] 25 mg 00 Prednisone Medical capsule and Pepcid Branch in case of an Allergic Reaction albuterol 0 Yes [id number] 2{puff} Inhale 2 Univers 90 4-03 Puffs ity of mcg/actuati 00:00: every 4 [place] on inhaler 00 (four) Medical hours as Branch needed for Wheezing, Shortness of Breath or Bronchospa sm (Allergic Reaction). diphenhydrA 0 Yes [id number] Take 2 Univers MINE 4-03 tablets PO ity of (BENADRYL) 00:00: with [place] 25 mg 00 Prednisone Medical capsule and Pepcid Branch in case of an Allergic Reaction albuterol 0 Yes [id number] 2{puff} Inhale 2 Univers 90 4-03 Puffs ity of mcg/actuati 00:00: every 4 [place] on inhaler 00 (four) Medical hours as Branch needed for Wheezing, Shortness of Breath or Bronchospa sm (Allergic Reaction). diphenhydrA 0 Yes [id number] Take 2 Univers MINE 4-03 tablets PO ity of (BENADRYL) 00:00: with [place] 25 mg 00 Prednisone Medical capsule and Pepcid Branch in case of an Allergic Reaction albuterol 0 Yes [id number] 2{puff} Inhale 2 Univers 90 4-03 Puffs ity of mcg/actuati 00:00: every 4 [place] on inhaler 00 (four) Medical hours as Branch needed for Wheezing, Shortness of Breath or Bronchospa sm (Allergic Reaction). diphenhydrA 2022-0 Yes [id number] Take 2 Univers MINE 4-03 tablets PO ity of (BENADRYL) 00:00: with [place] 25 mg 00 Prednisone Medical capsule and Pepcid Branch in case of an Allergic Reaction albuterol Yes [id number] 2{puff} Inhale 2 Univers 90 4-03 Puffs ity of mcg/actuati 00:00: every 4 [place] on inhaler 00 (four) Medical hours as Branch needed for Wheezing, Shortness of Breath or Bronchospa sm (Allergic Reaction). diphenhydrA Yes [id number] Take 2 Univers MINE 4-03 tablets PO ity of (BENADRYL) 00:00: with [place] 25 mg 00 Prednisone Medical capsule and Pepcid Branch in case of an Allergic Reaction albuterol Yes [id number] 2{puff} Inhale 2 Univers 90 4-03 Puffs ity of mcg/actuati 00:00: every 4 [place] on inhaler 00 (four) Medical hours as Branch needed for Wheezing, Shortness of Breath or Bronchospa sm (Allergic Reaction). famotidine 2022- No [id number] Take 2 Univers (PEPCID) 20 4- 06-01 tablets PO i ty of mg tablet 00:00: 00:00 in case of [place] 00 :00 Allergic Medical Reaction Branch predniSONE 2022-0 2022- No [id number] Take 3 Univers 20 mg - 06-01 tablets PO ity of tablet 00:00: 00:00 with [place] 00 :00 Pepcid and Medical Benadryl Branch in case of an Allergic Reaction famotidine 2022-2022- No [id number] Take 2 Univers (PEPCID) 20 4- 06-01 tablets PO i ty of mg tablet 00:00: 00:00 in case of [place] 00 :00 Allergic Medical Reaction Branch predniSONE 2022-0 2022- No [id number] Take 3 Univers 20 mg 4-03 06-01 tablets PO ity of tablet 00:00: 00:00 with [place] 00 :00 Pepcid and Medical Benadryl Branch in case of an Allergic Reaction famotidine 2022-0 2022- No [id number] Take 2 Univers (PEPCID) 20 4- 06-01 tablets PO i ty of mg tablet 00:00: 00:00 in case of [place] 00 :00 Allergic Medical Reaction Branch predniSONE 2022-0 2022- No [id number] Take 3 Univers 20 mg 4- 06-01 tablets PO ity of tablet 00:00: 00:00 with [place] 00 :00 [facility]id and [facility] in case of an Allergic Reaction [...] the Medical morning. Branch doxycycline 2023-0 Yes [id number] 100mg Take 1 Univers hyclate 100 3-02 capsule by it y of mg capsule 00:00: mouth [place] 00 every 12 Medical (twelve) Branch hours. doxycycline 2023-0 Yes [id number] 100mg Take 1 Univers hyclate 100 3-02 capsule by it y of mg capsule 00:00: mouth [place] 00 every 12 Medical (twelve) Branch hours. doxycycline 2023-0 Yes [id number] 100mg Take 1 Univers hyclate 100 3-02 capsule by it y of mg capsule 00:00: mouth [place] 00 every 12 Medical (twelve) Branch hours. doxycycline 2023-0 Yes [id number] 100mg Take 1 Univers hyclate 100 3-02 capsule by it y of mg capsule 00:00: mouth [place] 00 every 12 Medical (twelve) Branch hours. doxycycline 2023-0 Yes [id number] 100mg Take 1 Univers hyclate 100 3-02 capsule by it y of mg capsule 00:00: mouth [place] 00 every 12 Medical (twelve) Branch hours. doxycycline 2023-0 Yes [id number] 100mg Take 1 Univers hyclate 100 3-02 capsule by it y of mg capsule 00:00: mouth [place] 00 every 12 Medical (twelve) Branch hours. doxycycline 2023-0 Yes [id number] 100mg Take 1 Univers hyclate 100 3-02 capsule by it y of mg capsule 00:00: mouth [place] 00 every 12 Medical (twelve) Branch hours. doxycycline 2023-0 Yes [id number] 100mg Take 1 Univers hyclate 100 3-02 capsule by it y of mg capsule 00:00: mouth [place] 00 every 12 Medical (twelve) Branch hours. doxycycline 2023-0 Yes [id number] 100mg Take 1 Univers hyclate 100 3-02 capsule by it y of mg capsule 00:00: mouth [place] 00 every 12 Medical (twelve) Branch hours. doxycycline 2023-0 Yes [id number] 100mg Take 1 Univers hyclate 100 3-02 capsule by it y of mg capsule 00:00: mouth [place] 00 every 12 Medical (twelve) Branch hours. doxycycline 2023-0 Yes [id number] 100mg Take 1 Univers hyclate 100 3-02 capsule by it y of mg capsule 00:00: mouth [place] 00 every 12 Medical (twelve) Branch hours. doxycycline 2023-0 Yes [id number] 100mg Take 1 Univers hyclate 100 3-02 capsule by it y of mg capsule 00:00: mouth [place] 00 every 12 Medical (twelve) Branch hours. doxycycline 2023-0 Yes [id number] 100mg Take 1 Univers hyclate 100 3-02 capsule by it y of mg capsule 00:00: mouth [place] 00 every 12 Medical (twelve) Branch hours. doxycycline 2023-0 Yes [id number] 100mg Take 1 Univers hyclate 100 3-02 capsule by it y of mg capsule 00:00: mouth [place] 00 every 12 Medical (twelve) Branch hours. doxycycline 2023-0 Yes [id number] 100mg Take 1 Univers hyclate 100 3-02 capsule by it y of mg capsule 00:00: mouth [place] 00 every 12 Medical (twelve) Branch hours. doxycycline 2023-0 Yes [id number] 100mg Take 1 Univers hyclate 100 3-02 capsule by it y of mg capsule 00:00: mouth [place] 00 every 12 Medical (twelve) Branch hours. doxycycline 2023-0 Yes [id number] 100mg Take 1 Univers hyclate 100 3-02 capsule by it y of mg capsule 00:00: mouth [place] 00 every 12 Medical (twelve) Branch hours. doxycycline 2023-0 Yes [id number] 100mg Take 1 Univers hyclate 100 3-02 capsule by it y of mg capsule 00:00: mouth [place] 00 every 12 Medical (twelve) Branch hours. doxycycline 2023-0 Yes [id number] 100mg Take 1 Univers hyclate 100 3-02 capsule by it y of mg capsule 00:00: mouth [place] 00 every 12 Medical (twelve) Branch hours. doxycycline 2023-0 Yes [id number] 100mg Take 1 Univers hyclate 100 3-02 capsule by it y of mg capsule 00:00: mouth [place] 00 every 12 Medical (twelve) Branch hours. doxycycline 2023-0 Yes [id number] 100mg Take 1 Univers hyclate 100 3-02 [...] First dose Medic al mg(2.5 mg on [place] Branch base)/3 mL 09/27/22 at nebulizer 0800, [...] % 00 :00 dose, On Medical nebulizer [place] Branch solution 09/27/22 at 0.5 mL 0100, [...] SHEEBA famotidine 2022- No 20mg 20 mg, [place] [facility] ers (PEPCID 09-20 Slow IV ity of (PF)) 00:30: 00:36 Push, [place] injection 00 :00 ONCE, 1 Medical 20 mg dose, On Branch 09/19/22 at 1830, SHEEBA ipratropium 2022- No 3mL 3 mL, [place] [facility] ers -albuteroL 09-20 Inhalation it y of (DUONEB) 00:28: 00:36 , ONCE, 1 [place] as 0.5 mg-3 00 :00 dose, On Medical mg(2.5 mg Sat Branch base)/3 mL 09/19/22 at nebulizer 1830, SHEEBA solution 3 mL methylPREDN 2022-0 Yes [id number] [facility] [id number] mouth ity of mg tablets 00:00: SEE-INSTRU [place] 00 CTIONS. Medical follow Branch package directions methylPREDN 0 Yes [id number] Take by [place] [address] 14 [id number] mouth ity of mg tablets 00:00: SEE-INSTRU [place] 00 CTIONS. Medical follow Branch package directions methylPREDN 2023-0 Yes [id number] Take by [place] [address] 14 [id number] mouth ity of mg tablets 00:00: SEE-INSTRU [place] 00 CTIONS. Medical follow Branch package directions methylPREDN 2023-0 Yes [id number] Take by [place] [address] 14 [id number] mouth ity of mg tablets 00:00: SEE-INSTRU [place] 00 CTIONS. Medical follow Branch package directions methylPREDN 2023-0 Yes [id number] Take by [place] [address] 09-19 [id number] mouth ity of mg tablets 00:00: SEE-INSTRU [place] 00 CTIONS. Medical follow Branch package directions methylPREDN 2023-0 Yes [id number] Take by [place] [address] 09-19 [id number] mouth ity of mg tablets 00:00: SEE-INSTRU [place] 00 CTIONS. Medical follow Branch package directions methylPREDN 2023-0 Yes [id number] Take by [place] [address] 09-19 [id number] mouth ity of mg tablets 00:00: SEE-INSTRU [place] 00 CTIONS. Medical follow Branch package directions methylPREDN 2023-0 Yes [id number] Take by [place] [address] 09-19 [id number] mouth ity of mg tablets 00:00: SEE-INSTRU [place] 00 CTIONS. Medical follow Branch package directions methylPREDN 2023-0 Yes [id number] Take by [place] [address] 14 [id number] mouth ity of mg tablets 00:00: SEE-INSTRU [place] 00 CTIONS. Medical follow Branch package directions methylPREDN 2023-0 Yes [id number] Take by [place] [address] 14 [id number] mouth ity of mg tablets 00:00: SEE-INSTRU [place] 00 CTIONS. Medical follow Branch package directions methylPREDN 2023-0 Yes [id number] Take by [place] [address] 09-19 [id number] mouth ity of mg tablets 00:00: SEE-INSTRU [place] 00 CTIONS. Medical follow Branch package directions methylPREDN 2023-0 Yes [id number] Take by [place] [address] 14 [id number] mouth ity of mg tablets 00:00: SEE-INSTRU [place] 00 CTIONS. Medical follow Branch package directions methylPREDN 2023-0 Yes [id number] Take by [place] [address] 14 [id number] mouth ity of mg tablets 00:00: SEE-INSTRU [place] 00 CTIONS. Medical follow Branch package directions methylPREDN 2023-0 Yes [id number] Take by [place] [address] 14 [id number] mouth ity of mg tablets 00:00: SEE-INSTRU [place] 00 CTIONS. Medical follow Branch package directions methylPREDN 2023-0 Yes [id number] Take by [place] [address] 14 [id number] mouth ity of mg tablets 00:00: SEE-INSTRU [place] 00 CTIONS. Medical follow Branch package directions methylPREDN 2023-0 Yes [id number] Take by [place] [address] 09-19 [id number] mouth ity of mg tablets 00:00: SEE-INSTRU [place] 00 CTIONS. Medical follow Branch package directions methylPREDN 2023-0 Yes [id number] Take by [place] [id number] 09-19 [id number] mouth ity of mg tablets 00:00: SEE-INSTRU [place] 00 CTIONS. Medical follow Branch package directions methylPREDN 2023-0 Yes [id number] Take by [place] [address] 09-19 [id number] mouth ity of mg tablets 00:00: SEE-INSTRU [place] 00 CTIONS. Medical follow Branch package directions methylPREDN 2023-0 Yes [id number] Take by [place] [address] 14 [id number] mouth ity of mg tablets 00:00: SEE-INSTRU [place] 00 CTIONS. Medical follow Branch package directions methylPREDN 2023-0 Yes [id number] Take by [place] [address] 14 [id number] mouth ity of mg tablets 00:00: SEE-INSTRU [place] 00 CTIONS. Medical follow Branch package directions methylPREDN 2023-0 2023- No [id number] Take by [place] [address] 14 06- [id number] mouth ity of mg tablets 00:00: 00:00 SEE-INSTRU [place] 00 :00 CTIONS. Medical follow Branch package directions methylPREDN 2023-0 2023- No [id number] Take by [place] [address] 09-19 [id number] mouth ity of mg tablets 00:00: 00:00 SEE-INSTRU [place] 00 :00 CTIONS. Medical follow Branch package directions methylPREDN 2022- No [id number] Take by [place] [address] 09-19 [id number] mouth ity of mg tablets 00:00: 00:00 SEE-INSTRU [place] 00 :00 CTIONS. Medical follow Branch package directions methylPREDN 2022- No [id number] Take by [place] [address] 09-19 [id number] mouth ity of mg tablets 00:00: 00:00 SEE-INSTRU [place] 00 :00 CTIONS. Medical follow Branch package directions omalizumab 2022- No [id number] 150mg [facility] (XOLAIR) 09-14 ity of injection 22:15: 10:14 [place] 150 mg 00 :00 [facility] omalizumab 20222022- No [id number] 150mg [facility] (XOLAIR) 09-14 ity of injection 22:15: 10:14 [place] 150 mg 00 :00 [facility] omalizumab 2022- No [id number] 150mg [facility] (XOLAIR) 09-14 ity of injection 22:15: 15:20 [place] 150 mg 00 :00 [facility] omalizumab 2022- No [id number] 150mg [facility] (XOLAIR) 09-14 ity of injection 22:15: 15:20 [place] 150 mg 00 :00 [facility] omalizumab 2022- No [id number] 150mg 150 mg, [facility] (XOLAIR) 09-14 Subcutaneo ity of injection 22:15: 15:20 , ONCE, [place] 150 mg 00 :00 1 dose, On Medical 09/14/22 Branch at 1615, Routine
Restricte d use approved by: CATRACHITA MERCADO MD. (ALLERGY/I MMUNOLOGY) omalizumab 2022- No [id number] 150mg 150 mg, [facility] (XOLAIR) 09-14 Subcutaneo ity of injection 22:15: 15:20 [place], ONCE, [place] 150 mg 00 :00 1 dose, On Medical 09/14/22 Branch at 1615, Routine
Restricte d use approved by: CATRACHITA MERCADO MD. (ALLERGY/I MMUNOLOGY) omalizumab 2022- No [id number] 150mg [facility] (XOLAIR) 09-14 ity of injection 22:15: 15:20 [place] 150 mg 00 :00 Medical Branch omalizumab 2022- No [id number] 150mg [facility] (XOLAIR) 09-14 ity of injection 22:15: 15:20 [place] 150 mg 00 :00 [facility] Branch omalizumab 2022- No [id number] 150mg 150 mg, [facility] (XOLAIR) 09-14 Subcutaneo ity of injection 22:15: 15:20 us, ONCE, [place] 150 mg 00 :00 1 dose, On Medical 09/14/22 Branch at 1615, Routine
Restricte d use approved by: CATRACHITA MERCADO MD. (ALLERGY/I MMUNOLOGY) omalizumab 2022- No [id number] 150mg 150 mg, [facility] (XOLAIR) 09-14 Subcutaneo ity of injection 22:15: 15:20 us, ONCE, [place] 150 mg 00 :00 1 dose, On Medical 09/14/22 Branch at 1615, Routine
Restricte d use approved by: CATRACHITA MERCADO MD. (ALLERGY/I MMUNOLOGY) montelukast Yes [id number] 10mg Take 1 [facility] 10 mg 1-06 tablet by ity of tablet 00:00: mouth in [place] 00 the Medical morning. Branch EPINEPHrine Yes [id number] .3mg 0.3 mL by [facility] (EPIPEN) 09-11 Intramuscu ity o f 0.3 mg/0.3 00:00: lar route [place] mL 00 as needed Medical injection (anaphylax Bran ch is). montelukast Yes [id number] 10mg Take 1 [facility] 10 mg 1-06 tablet by ity of tablet 00:00: mouth in [place] 00 the Medical morning. Branch EPINEPHrine 2022-0 Yes [id number] .3mg 0.3 mL by [facility] (EPIPEN) 1-06 Intramuscu ity o f 0.3 mg/0.3 00:00: lar route [place] mL 00 as needed Medical injection (anaphylax Bran ch is). omalizumab 2022-0 Yes [id number] 300mg inject 2 [facility] (XOLAIR) 1-06 Syringes ity of injection 00:00: under the [place] 00 skin every Medical 2 (two) Branch weeks. montelukast 2022-0 Yes [id number] 10mg Take 1 [facility] 10 mg 1-06 tablet by ity of tablet 00:00: mouth in [place] 00 the Medical morning. Branch EPINEPHrine 2022-0 Yes [id number] .3mg 0.3 mL by [facility] (EPIPEN) 1-06 Intramuscu ity o f 0.3 mg/0.3 00:00: lar route [place] mL 00 as needed Medical injection (anaphylax Bran ch is). omalizumab 2022-0 Yes [id number] 300mg inject 2 [facility] (XOLAIR) 1-06 Syringes ity of injection 00:00: under the [place] 00 skin every Medical 2 (two) Branch weeks. montelukast 2022-0 Yes [id number] 10mg Take 1 [facility] 10 mg 1-06 tablet by ity of tablet 00:00: mouth in [place] 00 the Medical morning. Branch EPINEPHrine 2022-0 Yes [id number] .[id number] 0.3 mL by [facility] (EPIPEN) 1-06 Intramuscu ity o f 0.3 mg/0.3 00:00: lar route [place] mL 00 as needed Medical injection (anaphylax Bran ch is). omalizumab 2022-0 Yes [id number] 300mg inject 2 [facility] (XOLAIR) 1-06 Syringes ity of injection 00:00: under the [place] 00 skin every Medical 2 (two) Branch weeks. montelukast 3-0 Yes [id number] 10mg Take 1 [facility] 10 mg 1-06 tablet by ity of tablet 00:00: mouth in [place] 00 the Medical morning. Branch EPINEPHrine 2022-0 Yes [id number] .3mg 0.3 mL by [facility] (EPIPEN) 1-06 Intramuscu ity o f 0.3 mg/0.3 00:00: lar route [place] mL 00 as needed Medical injection (anaphylax Bran ch is). omalizumab 2022-0 Yes [id number] 300mg inject 2 [facility] (XOLAIR) 1-06 Syringes ity of injection 00:00: under the [place] 00 skin every Medical 2 (two) Branch weeks. montelukast 2022-0 Yes [id number] 10mg Take 1 [facility] 10 mg 1-06 tablet by ity of tablet 00:00: mouth in [place] 00 the Medical morning. Branch EPINEPHrine 2022-0 Yes [id number] .3mg 0.3 mL by [facility] (EPIPEN) 1-06 Intramuscu ity o f 0.3 mg/0.3 00:00: lar route [place] mL 00 as needed Medical injection (anaphylax Bran ch is). omalizumab 2022-0 Yes [id number] 300mg inject 2 [facility] (XOLAIR) 1-06 Syringes ity of injection 00:00: under the [place] 00 skin every Medical 2 (two) Branch weeks. montelukast 2022-0 Yes [id number] 10mg Take 1 [facility] 10 mg 1-06 tablet by ity of tablet 00:00: mouth in [place] 00 the Medical morning. Branch EPINEPHrine 2022-0 Yes [id number] .3mg 0.3 mL by [facility] (EPIPEN) 1-06 Intramuscu ity o f 0.3 mg/0.3 00:00: lar route [place] mL 00 as needed Medical injection (anaphylax Bran ch is). omalizumab 2022-0 Yes [id number] 300mg inject 2 [facility] (XOLAIR) 1-06 Syringes ity of injection 00:00: under the [place] 00 skin every Medical 2 (two) Branch weeks. montelukast 3-0 Yes [id number] 10mg Take 1 [facility] 10 mg 1-06 tablet by ity of tablet 00:00: mouth in [place] 00 the Medical morning. Branch EPINEPHrine 2022-0 Yes [id number] .3mg 0.3 mL by [facility] (EPIPEN) 1-06 Intramuscu ity o f 0.3 mg/0.3 00:00: lar route [place] mL 00 as needed Medical injection (anaphylax Bran ch is). omalizumab 3-0 Yes [id number] 300mg inject 2 [facility] (XOLAIR) 1-06 Syringes ity of injection 00:00: under the [place] 00 skin every Medical 2 (two) Branch weeks. montelukast 2022-0 Yes [id number] 10mg Take 1 [facility] 10 mg 1-06 tablet by ity of tablet 00:00: mouth in [place] 00 the Medical morning. Branch EPINEPHrine 2022-0 Yes [id number] .3mg 0.3 mL by [facility] (EPIPEN) 1-06 Intramuscu ity o f 0.3 mg/0.3 00:00: lar route [place] mL 00 as needed Medical injection (anaphylax Bran ch is). omalizumab 2022-0 Yes [id number] 300mg inject 2 [facility] (XOLAIR) 1-06 Syringes ity of injection 00:00: under the [place] 00 skin every Medical 2 (two) Branch weeks. montelukast 2022-0 Yes [id number] 10mg Take 1 [facility] 10 mg 1-06 tablet by ity of tablet 00:00: mouth in [place] 00 the Medical morning. Branch EPINEPHrine 2022-0 Yes [id number] .3mg 0.3 mL by [facility] (EPIPEN) 1-06 Intramuscu ity o f 0.3 mg/0.3 00:00: lar route [place] mL 00 as needed Medical injection (anaphylax Bran ch is). omalizumab 2022-0 Yes [id number] 300mg inject 2 [facility] (XOLAIR) 1-06 Syringes ity of injection 00:00: under the [place] 00 skin every Medical 2 (two) Branch weeks. montelukast 2022-0 Yes [id number] 10mg Take 1 [facility] 10 mg 1-06 tablet by ity of tablet 00:00: mouth in [place] 00 the Medical morning. Branch EPINEPHrine 2022-0 Yes [id number] .3mg 0.3 mL by [facility] (EPIPEN) 1-06 Intramuscu ity o f 0.3 mg/0.3 00:00: lar route [place] mL 00 as needed Medical injection (anaphylax Bran ch is). omalizumab 3-0 Yes [id number] 300mg inject 2 [facility] (XOLAIR) 1-06 Syringes ity of injection 00:00: under the [place] 00 skin every Medical 2 (two) Branch weeks. montelukast 2022-0 Yes [id number] 10mg Take 1 [facility] 10 mg 1-06 tablet by ity of tablet 00:00: mouth in [place] 00 the Medical morning. Branch EPINEPHrine 2022-0 Yes [id number] .3mg 0.3 mL by [facility] (EPIPEN) 1-06 Intramuscu ity o f 0.3 mg/0.3 00:00: lar route [place] mL 00 as needed Medical injection (anaphylax Bran ch is). omalizumab 2022-0 Yes [id number] 300mg inject 2 [facility] (XOLAIR) 1-06 Syringes ity of injection 00:00: under the [place] 00 skin every Medical 2 (two) Branch weeks. montelukast 2022-0 Yes [id number] 10mg Take 1 [facility] 10 mg 1-06 tablet by ity of tablet 00:00: mouth in [place] 00 the Medical morning. Branch EPINEPHrine 2022-0 Yes [id number] .3mg 0.3 mL by [facility] (EPIPEN) 1-06 Intramuscu ity o f 0.3 mg/0.3 00:00: lar route [place] mL 00 as needed Medical injection (anaphylax Bran ch is). omalizumab 2022-0 Yes [id number] 300mg inject 2 [facility] (XOLAIR) 1-06 Syringes ity of injection 00:00: under the [place] 00 skin every Medical 2 (two) Branch weeks. montelukast 2022-0 Yes [id number] 10mg Take 1 [facility] 10 mg 1-06 tablet by ity of tablet 00:00: mouth in [place] 00 the Medical morning. Branch EPINEPHrine 2022-0 Yes [id number] .3mg 0.3 mL by [facility] (EPIPEN) 1-06 Intramuscu ity o f 0.3 mg/0.3 00:00: lar route [place] mL 00 as needed Medical injection (anaphylax Bran ch is). omalizumab 2022-0 Yes [id number] 300mg inject 2 [facility] (XOLAIR) 1-06 Syringes ity of injection 00:00: under the [place] 00 skin every Medical 2 (two) Branch weeks. montelukast 3-0 Yes [id number] 10mg Take 1 [facility] 10 mg 1-06 tablet by ity of tablet 00:00: mouth in [place] 00 the Medical morning. Branch EPINEPHrine 2022-0 Yes [id number] .3mg 0.3 mL by [facility] (EPIPEN) 1-06 Intramuscu ity o f 0.3 mg/0.3 00:00: lar route [place] mL 00 as needed Medical injection (anaphylax Bran ch is). omalizumab 2022-0 Yes [id number] 300mg inject 2 [facility] (XOLAIR) 1-06 Syringes ity of injection 00:00: under the [place] 00 skin every Medical 2 (two) Branch weeks. montelukast 2022-0 Yes [id number] 10mg Take 1 [facility] 10 mg 1-06 tablet by ity of tablet 00:00: mouth in [place] 00 the Medical morning. Branch EPINEPHrine 2022-0 Yes [id number] .3mg 0.3 mL by [facility] (EPIPEN) 1-06 Intramuscu ity o f 0.3 mg/0.3 00:00: lar route [place] mL 00 as needed Medical injection (anaphylax Bran ch is). omalizumab 2022-0 Yes [id number] 300mg inject 2 [facility] (XOLAIR) 1-06 Syringes ity of injection 00:00: under the [place] 00 skin every Medical 2 (two) Branch weeks. montelukast 2022-0 Yes [id number] 10mg Take 1 [facility] 10 mg 1-06 tablet by ity of tablet 00:00: mouth in [place] 00 the Medical morning. Branch EPINEPHrine 2022-0 Yes [id number] .3mg 0.3 mL by [facility] (EPIPEN) 1-06 Intramuscu ity o f 0.3 mg/0.3 00:00: lar route [place] mL 00 as needed Medical injection (anaphylax Bran ch is). omalizumab 2022-0 Yes [id number] 300mg inject 2 [facility] (XOLAIR) 1-06 Syringes ity of injection 00:00: under the [place] 00 skin every Medical 2 (two) Branch weeks. montelukast 3-0 Yes [id number] 10mg Take 1 [facility] 10 mg 1-06 tablet by ity of tablet 00:00: mouth in [place] 00 the Medical morning. Branch EPINEPHrine 2022-0 Yes [id number] .3mg 0.3 mL by [facility] (EPIPEN) 1-06 Intramuscu ity o f 0.3 mg/0.3 00:00: lar route [place] mL 00 as needed Medical injection (anaphylax Bran ch is). omalizumab 2022-0 Yes [id number] 300mg inject 2 [facility] (XOLAIR) 1-06 Syringes ity of injection 00:00: under the [place] 00 skin every Medical 2 (two) Branch weeks. montelukast 2022-0 Yes [id number] 10mg Take 1 [facility] 10 mg 1-06 tablet by ity of tablet 00:00: mouth in [place] 00 the Medical morning. Branch EPINEPHrine 2022-0 Yes [id number] .3mg 0.3 mL by [facility] (EPIPEN) 1-06 Intramuscu ity o f 0.3 mg/0.3 00:00: lar route [place] mL 00 as needed Medical injection (anaphylax Bran ch is). omalizumab 2022-0 Yes [id number] 300mg inject 2 [facility] (XOLAIR) 1-06 Syringes ity of injection 00:00: under the [place] 00 skin every Medical 2 (two) Branch weeks. montelukast 2022-0 Yes [id number] 10mg Take 1 [facility] 10 mg 1-06 tablet by ity of tablet 00:00: mouth in [place] 00 the Medical morning. Branch EPINEPHrine 2022-0 Yes [id number] .3mg 0.3 mL by [facility] (EPIPEN) 1-06 Intramuscu ity o f 0.3 mg/0.3 00:00: lar route [place] mL 00 as needed Medical injection (anaphylax Bran ch is). omalizumab 2022-0 Yes [id number] 300mg inject 2 [facility] (XOLAIR) 1-06 Syringes ity of injection 00:00: under the [place] 00 skin every Medical 2 (two) Branch weeks. montelukast 3-0 Yes [id number] 10mg Take 1 [facility] 10 mg 1-06 tablet by ity of tablet 00:00: mouth in [place] 00 the Medical morning. Branch EPINEPHrine 2022-0 Yes [id number] .3mg 0.3 mL by [facility] (EPIPEN) 1-06 Intramuscu ity o f 0.3 mg/0.3 00:00: lar route [place] mL 00 as needed Medical injection (anaphylax Bran ch is). omalizumab 3-0 Yes [id number] 300mg inject 2 [facility] (XOLAIR) 1-06 Syringes ity of injection 00:00: under the [place] 00 skin every Medical 2 (two) Branch weeks. montelukast 3-0 Yes [id number] 10mg Take 1 [facility] 10 mg 1-06 tablet by ity of tablet 00:00: mouth in [place] 00 the Medical morning. Branch EPINEPHrine 2022-0 Yes [id number] .3mg 0.3 mL by [facility] (EPIPEN) 1-06 Intramuscu ity o f 0.3 mg/0.3 00:00: lar route [place] mL 00 as needed Medical injection (anaphylax Bran ch is). omalizumab 3-0 Yes [id number] 300mg inject 2 [facility] (XOLAIR) 1-06 Syringes ity of injection 00:00: under the [place] 00 skin every Medical 2 (two) Branch weeks. montelukast 2022-0 Yes [id number] 10mg Take 1 [facility] 10 mg 1-06 tablet by ity of tablet 00:00: mouth in [place] 00 the Medical morning. Branch EPINEPHrine 2022-0 Yes [id number] .3mg 0.3 mL by [facility] (EPIPEN) 1-06 Intramuscu ity o f 0.3 mg/0.3 00:00: lar route [place] mL 00 as needed Medical injection (anaphylax Bran ch is). omalizumab 3-0 Yes [id number] 300mg inject 2 [facility] (XOLAIR) 1-06 Syringes ity of injection 00:00: under the [place] 00 skin every Medical 2 (two) Branch weeks. omalizumab 3-0 Yes [id number] 300mg inject 2 [facility] (XOLAIR) 1-06 Syringes ity of injection 00:00: under the [place] 00 skin every Medical 2 (two) Branch weeks. omalizumab 3-0 Yes [id number] 300mg inject 2 [facility] (XOLAIR) 1-06 Syringes ity of injection 00:00: under the [place] 00 skin every Medical 2 (two) Branch weeks. omalizumab 2023-0 Yes [id number] 300mg inject 2 [facility] (XOLAIR) 1-06 Syringes ity of injection 00:00: under the [place] 00 skin every Medical 2 (two) Branch weeks. omalizumab 2022-0 Yes [id number] 300mg inject 2 [facility] (XOLAIR) 1-06 Syringes ity of injection 00:00: under the [place] 00 skin every Medical 2 (two) Branch weeks. omalizumab 2022-0 Yes [id number] 300mg inject 2 [facility] (XOLAIR) 1-06 Syringes ity of injection 00:00: under the [place] 00 skin every Medical 2 (two) Branch weeks. montelukast 2022- No [id number] 10mg Take 1 [facility] 10 mg 09-11 tablet by ity of tablet 00:00: 00:00 mouth in [place] 00 :00 the Medical morning. Branch EPINEPHrine 2022- No [id number] .3mg 0.3 mL by [facility] (EPIPEN) 09-11 Intramuscu ity of 0.3 mg/0.3 00:00: 00:00 lar route [place] mL 00 :00 as needed Medical injection (anaphylax Bran ch is). montelukast 2022- No [id number] 10mg Take 1 [facility] 10 mg 09-11 tablet by ity of tablet 00:00: 00:00 mouth in [place] 00 :00 the Medical morning. Branch EPINEPHrine 2022- No [id number] .3mg 0.3 mL by [facility] (EPIPEN) 09-11 Intramuscu ity of 0.3 mg/0.3 00:00: 00:00 lar route [place] mL 00 :00 as needed Medical injection (anaphylax Bran ch is). montelukast 2022- No [id number] 10mg Take 1 [facility] 10 mg 09-11 tablet by ity of tablet 00:00: 00:00 mouth in [place] 00 :00 the Medical morning. Branch EPINEPHrine 2022- No [id number] .3mg 0.3 mL by [facility] (EPIPEN) 09-11 [...] 08/28/22 at 2245, Routine iopamidol 2021-09- No [id number] 75mL 75 mL, [facility] nivers (ISOVUE 10-30-24 [...] 08/28/22 at 2100, SHEEBA predniSONE 2021-09 Yes [id number] Take 3 U nivers 10 mg 2-23 tablets by ity of tablet 00:00: mouth [place] 00 daily for Medical 5 days Branch then take 2 tablets by mouth daily for 5 days then take 1 tablet by mouth daily for 5 days then take 0.5 tablets by mouth daily for 4 days then stop. predniSONE 2021-09 Yes [id number] Take 3 U nivers 10 mg 2-23 tablets by ity of tablet 00:00: mouth [place] 00 daily for Medical 5 days Branch then take 2 tablets by mouth daily for 5 days then take 1 tablet by mouth daily for 5 days then take 0.5 tablets by mouth daily for 4 days then stop. predniSONE 2021-09 Yes [id number] Take 3 U nivers 10 mg 2-23 tablets by ity of tablet 00:00: mouth [place] 00 daily for Medical 5 days Branch then take 2 tablets by mouth daily for 5 days then take 1 tablet by mouth daily for 5 days then take 0.5 tablets by mouth daily for 4 days then stop. predniSONE 2021-09 Yes [id number] Take 3 U nivers 10 mg 2-23 tablets by ity of tablet 00:00: mouth [place] 00 daily for Medical 5 days Branch then take 2 tablets by mouth daily for 5 days then take 1 tablet by mouth daily for 5 days then take 0.5 tablets by mouth daily for 4 days then stop. predniSONE 2021-09 Yes [id number] Take 3 U nivers 10 mg 2-23 tablets by ity of tablet 00:00: mouth [place] 00 daily for Medical 5 days Branch then take 2 tablets by mouth daily for 5 days then take 1 tablet by mouth daily for 5 days then take 0.5 tablets by mouth daily for 4 days then stop. predniSONE 2021-09 Yes [id number] Take 3 U nivers 10 mg 2-23 tablets by ity of tablet 00:00: mouth [place] 00 daily for Medical 5 days Branch then take 2 tablets by mouth daily for 5 days then take 1 tablet by mouth daily for 5 days then take 0.5 tablets by mouth daily for 4 days then stop. predniSONE 2021-09 Yes [id number] Take 3 U nivers 10 mg 2-23 tablets by ity of tablet 00:00: mouth [place] 00 daily for Medical 5 days Branch then take 2 tablets by mouth daily for 5 days then take 1 tablet by mouth daily for 5 days then take 0.5 tablets by mouth daily for 4 days then stop. predniSONE 2021-09 Yes [id number] Take 3 U nivers 10 mg 2-23 tablets by ity of tablet 00:00: mouth [place] 00 daily for Medical 5 days Branch then take 2 tablets by mouth daily for 5 days then take 1 tablet by mouth daily for 5 days then take 0.5 tablets by mouth daily for 4 days then stop. predniSONE 2021-09 Yes [id number] Take 3 U nivers 10 mg 2-23 tablets by ity of tablet 00:00: mouth [place] 00 daily for Medical 5 days Branch then take 2 tablets by mouth daily for 5 days then take 1 tablet by mouth daily for 5 days then take 0.5 tablets by mouth daily for 4 days then stop. predniSONE 2021-09 Yes [id number] Take 3 U nivers 10 mg 2-23 tablets by ity of tablet 00:00: mouth [place] 00 daily for Medical 5 days Branch then take 2 tablets by mouth daily for 5 days then take 1 tablet by mouth daily for 5 days then take 0.5 tablets by mouth daily for 4 days then stop. predniSONE 2021-09 Yes [id number] Take 3 U nivers 10 mg 2-23 tablets by ity of tablet 00:00: mouth [place] 00 daily for Medical 5 days Branch then take 2 tablets by mouth daily for 5 days then take 1 tablet by mouth daily for 5 days then take 0.5 tablets by mouth daily for 4 days then stop. predniSONE 2021-09 Yes [id number] Take 3 U nivers 10 mg 2-23 tablets by ity of tablet 00:00: mouth [place] 00 daily for Medical 5 days Branch then take 2 tablets by mouth daily for 5 days then take 1 tablet by mouth daily for 5 days then take 0.5 tablets by mouth daily for 4 days then stop. predniSONE 2021-09 Yes [id number] Take 3 U nivers 10 mg 2-23 tablets by ity of tablet 00:00: mouth [place] 00 daily for Medical 5 days Branch then take 2 tablets by mouth daily for 5 days then take 1 tablet by mouth daily for 5 days then take 0.5 tablets by mouth daily for 4 days then stop. predniSONE 2021-09 Yes [id number] Take 3 U nivers 10 mg 2-23 tablets by ity of tablet 00:00: mouth [place] 00 daily for Medical 5 days Branch then take 2 tablets by mouth daily for 5 days then take 1 tablet by mouth daily for 5 days then take 0.5 tablets by mouth daily for 4 days then stop. predniSONE 2021-09 Yes [id number] Take 3 U nivers 10 mg 2-23 tablets by ity of tablet 00:00: mouth [place] 00 daily for Medical 5 days Branch then take 2 tablets by mouth daily for 5 days then take 1 tablet by mouth daily for 5 days then take 0.5 tablets by mouth daily for 4 days then stop. predniSONE 2021-09 Yes [id number] Take 3 U nivers 10 mg 2-23 tablets by ity of tablet 00:00: mouth [place] 00 daily for Medical 5 days Branch then take 2 tablets by mouth daily for 5 days then take 1 tablet by mouth daily for 5 days then take 0.5 tablets by mouth daily for 4 days then stop. predniSONE 2021-09 Yes [id number] Take 3 U nivers 10 mg 2-23 tablets by ity of tablet 00:00: mouth [place] 00 daily for Medical 5 days Branch then take 2 tablets by mouth daily for 5 days then take 1 tablet by mouth daily for 5 days then take 0.5 tablets by mouth daily for 4 days then stop. predniSONE 2021-09 Yes [id number] Take 3 U nivers 10 mg 2-23 tablets by ity of tablet 00:00: mouth [place] 00 daily for Medical 5 days Branch then take 2 tablets by mouth daily for 5 days then take 1 tablet by mouth daily for 5 days then take 0.5 tablets by mouth daily for 4 days then stop. predniSONE 2021-09 Yes [id number] Take 3 U nivers 10 mg 2-23 tablets by ity of tablet 00:00: mouth [place] 00 daily for Medical 5 days Branch then take 2 tablets by mouth daily for 5 days then take 1 tablet by mouth daily for 5 days then take 0.5 tablets by mouth daily for 4 days then stop. predniSONE 2021-09 Yes [id number] Take 3 U nivers 10 mg 2-23 tablets by ity of tablet 00:00: mouth [place] 00 daily for Medical 5 days Branch then take 2 tablets by mouth daily for 5 days then take 1 tablet by mouth daily for 5 days then take 0.5 tablets by mouth daily for 4 days then stop. predniSONE 2021-09 Yes [id number] Take 3 U nivers 10 mg 2-23 tablets by ity of tablet 00:00: mouth [place] 00 daily for Medical 5 days Branch then take 2 tablets by mouth daily for 5 days then take 1 tablet by mouth daily for 5 days then take 0.5 tablets by mouth daily for 4 days then stop. predniSONE 2021-09 Yes [id number] Take 3 U nivers 10 mg 2-23 tablets by ity of tablet 00:00: mouth [place] 00 daily for Medical 5 days Branch then take 2 tablets by mouth daily for 5 days then take 1 tablet by mouth daily for 5 days then take 0.5 tablets by mouth daily for 4 days then stop. predniSONE 2021-09 Yes [id number] Take 3 U nivers 10 mg 2-23 tablets by ity of tablet 00:00: mouth [place] 00 daily for Medical 5 days Branch then take 2 tablets by mouth daily for 5 days then take 1 tablet by mouth daily for 5 days then take 0.5 tablets by mouth daily for 4 days then stop. predniSONE 2021-09 Yes [id number] Take 3 U nivers 10 mg 2-23 tablets by ity of tablet 00:00: mouth [place] 00 daily for Medical 5 days Branch then take 2 tablets by mouth daily for 5 days then take 1 tablet by mouth daily for 5 days then take 0.5 tablets by mouth daily for 4 days then stop. predniSONE 2021-09 Yes [id number] Take 3 [facility] nivers 10 mg 2-23 tablets by ity of tablet 00:00: mouth [place] 00 daily for Medical 5 days Branch then take 2 tablets by mouth daily for 5 days then take 1 tablet by mouth daily for 5 days then take 0.5 tablets by mouth daily for 4 days then stop. predniSONE 2021-09 Yes [id number] Take 3 U nivers 10 mg 2-23 tablets by ity of tablet 00:00: mouth [place] 00 daily for Medical 5 days Branch then take 2 tablets by mouth daily for 5 days then take 1 tablet by mouth daily for 5 days then take 0.5 tablets by mouth daily for 4 days then stop. predniSONE 2021-09- No [id number] Take 3 [facility] 10 mg 2-23 06-01 tablets by ity of tablet 00:00: 00:00 mouth [place] 00 :00 daily for Medical 5 days Branch then take 2 tablets by mouth daily for 5 days then take 1 tablet by mouth daily for 5 days then take 0.5 tablets by mouth daily for 4 days then stop. predniSONE 2021-09- No [id number] Take 3 [facility] 10 mg 2-23 06-01 tablets by ity of tablet 00:00: 00:00 mouth [place] 00 :00 daily for Medical 5 days Branch then take 2 tablets by mouth daily for 5 days then take 1 tablet by mouth daily for 5 days then take 0.5 tablets by mouth daily for 4 days then stop. predniSONE 2021-09- No [id number] Take 3 [facility] 10 mg 10-29 tablets by ity of tablet 00:00: 00:00 mouth [place] 00 :00 daily for Medical 5 days Branch then take 2 tablets by mouth daily for 5 days then take 1 tablet by mouth daily for 5 days then take 0.5 tablets by mouth daily for 4 days then stop. omalizumab 2021-09- No [id number] 150mg U nivers (XOLAIR) 10-18 ity of injection 17:45: 16:53 [place] 150 mg 00 :00 [facility] omalizumab 2021-09- No [id number] 150mg U nivers (XOLAIR) 10-18 ity of injection 17:45: 16:53 [place] 150 mg 00 :00 [facility] omalizumab 2021-09- No [id number] 150mg U nivers (XOLAIR) 10-18 ity of injection 17:45: 16:53 [place] 150 mg 00 :00 [facility] omalizumab 2021-09- No [id number] 150mg 150 mg, Univers (XOLAIR) 10-18 Subcutaneo ity of injection 17:45: 16:53 [place]CE[place] 150 mg 00 :00 1 dose, On [facility] 08/17/22 at 1145, Routine
Restricte d use approved by: LORENE ROMAN MD. (ALLERGY/I MMUNOLOGY) omalizumab 2021-09- No [id number] 150mg 150 mg, Univers (XOLAIR) 10-18 Subcutaneo ity of injection 17:45: 16:53 [place], [place]CE[place] 150 mg 00 :00 1 dose, On [facility] 08/17/22 at 1145, Routine
Restricte d use approved by: LORENE ROMAN MD. (ALLERGY/I MMUNOLOGY) omalizumab 2021-09- No [id number] 150mg 150 mg, Univers (XOLAIR) -12 12-12 [...] [place] mg 00 First dose Medical on [facility] Branch 08/15/22 at 0900, Until Discontinu ed, Routine fluticasone 2021-09 Yes 1{spray 1 [place], Univers propionate 2-10 } Nasal, ity of 50 15:00: DAILY, [place] mcg/actuati 00 First dose Me dical on nasal on [facility] Branch spray 1 08/15/22 [place] at 0900, Until Discontinu ed, Routine atorvastati 2021-09 Yes 20mg 20 mg, Univ ers n (LIPITOR) 2-10 Oral, QHS, it y of tablet 20 03:00: [place] mg 00 on [facility] Medical 08/14/22 at Branch 2100, Until Discontinu [...] Wheezing, Shortness of Breath predniSONE 2021-09- No [id number] 40mg Take 2 [facility] 20 mg 2-10 12-14 tablets by ity of tablet 00:00: 05:59 mouth in [place] 00 :00 the Medical morning Branch for 3 days. predniSONE 2021-09- No [id number] 40mg Take 2 [facility] 20 mg 2-10 12-14 tablets by ity of tablet 00:00: 05:59 mouth in [place] 00 :00 the Medical morning Branch for 3 days. predniSONE 2021-09- No [id number] 40mg Take 2 [facility] 20 mg 2-10 [...] 4 (four) Branch weeks. EPINEPHrine 2021-09- No [id number] .3mg 0.3 mL by Univers 0.3 mg/0.3 10-15 12-10 Intramuscu it y of mL 00:00: 05:59 lar route [place] injection 00 :00 once now Medica l for 1 Branch dose. omalizumab 2021-09- No [id number] 150mg U nivers (XOLAIR) 16 11-16 ity of injection 19:00: 18:05 [place] 150 mg 00 :00 Medical Branch omalizumab 2021-09- No [id number] 150mg U nivers (XOLAIR) 09-21 ity of injection 19:00: 18:05 [place] 150 mg 00 :00 [facility] Branch omalizumab 2021-09- No [id number] 150mg U nivers (XOLAIR) 09-21 ity of injection 19:00: 18:04 [place] 150 mg 00 :00 [facility] Branch omalizumab 2021-09- No [id number] 150mg 150 mg, Univers (XOLAIR) 09-21 Subcutaneo ity of injection 19:00: 18:04 [place], ONCE, [place] 150 mg 00 :00 1 dose, On [facility] Branch 07/22/22 at 1300, Routine
Restricte d use approved by: LORENE ROMAN MD. (ALLERGY/I MMUNOLOGY) omalizumab 2021-09- No [id number] 150mg 150 mg, Univers (XOLAIR) 09-21 Subcutaneo ity of injection 19:00: 18:05 [place], ONCE, [place] 150 mg 00 :00 1 dose, On [facility] Branch 07/22/22 at 1300, Routine
Restricte d use approved by: LORENE ROMAN MD. (ALLERGY/I MMUNOLOGY) omalizumab 2021-09- No [id number] 150mg 150 mg, Univers (XOLAIR) 09-21 Subcutaneo ity of injection 19:00: 18:05 [place], ONCE, [place] 150 mg 00 :00 1 dose, On [facility] Branch 07/22/22 at 1300, Routine
Restricte d use approved by: LORENE ROMAN MD. (ALLERGY/I MMUNOLOGY) predniSONE 2021-09- No 40mg 40 mg, Univ ers (DELTASONE) 006-28 Oral, ity of tablet 40 16:45: 16:49 ONCE, 1 [place] mg 00 :00 dose, On [facility] Branch 06/28/22 at 1145, Routine montelukast 2021-09 Yes 10mg 10 mg, Univ ers (SINGULAIR) 0-23 Oral, ity of tablet 10 14:00: DAILY, [place] mg 00 First dose Medical on [place] Branch 06/28/22 at 0900, Until Discontinu ed, Routine lamoTRIgine 2021-09 Yes 200mg 200 mg, Un yesenia (LAMICTAL) 0-23 Oral, QAM, ity of tablet 200 14:00: First dose [place] mg 00 on [facility] 06/28/22 Branch at 0900, Until Discontinu ed, Routine fluticasone 2021-09 Yes 1{spray 1 [place], Univers propionate 0-23 } Nasal, ity of 50 14:00: DAILY, [place] mcg/actuati 00 First dose Me dical on nasal on [place] Branch spray 1 06/28/22 [place] at 0900, Until Discontinu ed, Routine atorvastati 2021-09 Yes 20mg 20 mg, Univ ers n (LIPITOR) 0-23 Oral, ity of tablet 20 14:00: DAILY, [place] mg 00 First dose Medical on [facility] 06/28/22 at 0900, Until Discontinu ed, Routine enoxaparin 2021-09 Yes 40mg 40 mg, Unive rs (LOVENOX) 0-23 Subcutaneo ity of injection 14:00: us, DAILY, [place] 40 mg 00 First dose Medical on [place] Branch 06/28/22 at 0900, Until Discontinu ed, [...] First dose [place] mg 00 on [facility] 06/28/22 Branch at 0800, Until Discontinu ed, Routine acetaminoph 2021-09 Yes 650mg 650 mg, Un yesenia en 0-23 Oral, ity of (TYLENOL) 12:31: Q6HPRN, [place] tablet 650 12 Starting Medic al mg on [facility] 06/28/22 at 0731, Until Discontinu ed, Routine, Pain (scale 1-3) NaCl 0.9% 2021-09 Yes 1000mL at 125 Univ ers (NS) IV 0-23 mL/hr, IV ity of infusion 05:30: [place]fusion[place] 1,000 mL 00 CONTINUOUS Medic al , Starting Branch on [place] 06/28/22 at 0030, Until Discontinu ed, Routine ondansetron 2021-09 Yes 4mg 4 mg, Slow Univers (ZOFRAN 0-23 IV Push, ity of (PF)) 03:07: Q6HPRN, [place] injection 4 06 Starting Medi abhishek mg on [facility] Branch 06/27/22 at 2207, Until Discontinu ed, Routine, Nausea and Vomiting (N/V) NaCl 0.9% 2021-09- No 1000mL at 125 Uni vers (NS) IV 0-23 10-23 mL/hr, IV ity of infusion 03:00: 11:00 Infusion, [place] as 1,000 mL 00 :00 ONCE, 1 Medical dose, On Branch [facility] 06/27/22 at 2200, Routine KCL 2021-09- No 40meq 40 mEq, Univers (KLOR-CON 0-23 10-23 Oral, ity of M20) tablet 03:00: 02:33 ONCE, 1 [place] 40 mEq 00 :00 dose, On Medical [facility] 06/27/22 at 2200, Routine hydrOXYzine 2021-09 Yes 25mg 25 mg, Univ ers (ATARAX) 0-23 Oral, ity of tablet 25 01:43: Q8HPRN, [place] mg 10 Starting Medical on [facility] Branch 06/27/22 at 2043, Until Discontinu ed, Itching dicyclomine 2021-09 Yes 10mg 10 mg, Univ ers (BENTYL) 0-23 Oral, ity of capsule 10 01:42: QIDPRN, [place] mg 46 Starting Medical on [facility] Branch 06/27/22 at 2041, Until Discontinu ed, Routine, Abdominal pain cyclobenzap 2021-09 Yes 10mg 10 mg, Univ ers rine 0-23 Oral, ity of (FLEXERIL) 01:42: QHSPRN, [place] tablet 10 33 Starting Medica l mg on [place] Branch 06/27/22 at 2041, Until Discontinu ed, Routine, Muscle Spasms predniSONE 2021-09- No [id number] 40mg Take 2 [facility] 20 mg 007-02 [id number] tablets by ity o f tablet 00:00: 04:59 mouth in [place] 00 :00 [facility] for 3 days. predniSONE 2021-09- No [id number] 40mg Take 2 [facility] 20 mg 007-02 [id number] tablets by ity o f tablet 00:00: 04:59 mouth in [place] 00 :00 the [facility] for 3 days. EPINEPHrine 2021-09- No [id number] .3mg 0.3 mL by Univers 0.3 mg/0.3 06-29 [id number] Intramuscu ity of mL 00:00: 04:59 lar route [place] injection 00 :00 once now Medica l for 1 Branch dose. loratadine 2021-09 Yes 10mg 10 mg, Unive rs (CLARITIN) 0- Oral, ity of tablet 10 23:00: DAILY, [place] mg 00 First dose Medical on [facility] Branch 06/27/22 at 1800, Until Discontinu [...] mL at 1400, STAT omalizumab 2021-09- No [id number] 150mg U nivers (XOLAIR) 0-20 10-20 ity of injection 18:00: 17:06 [place] 150 mg 00 :00 Medical Branch omalizumab 2021-09- No [id number] 150mg U nivers (XOLAIR) 0-20 10-20 ity of injection 18:00: 17:06 [place] 150 mg 00 :00 Medical Branch omalizumab 2021-09- No [id number] 150mg U nivers (XOLAIR) 0-20 10-20 ity of injection 18:00: 17:05 [place] 150 mg 00 :00 Medical Branch omalizumab 2021-09- No [id number] 150mg 150 mg, Univers (XOLAIR) 0-20 10-20 Subcutaneo ity of injection 18:00: 17:05 [place], ONCE, [place] 150 mg 00 :00 1 dose, On [facility] [place] [facility] 06/25/22 at 1300, Routine
Restricte d use approved by: CATRACHITA MERCADO MD. (ALLERGY/I MMUNOLOGY) omalizumab 2021-09- No [id number] 150mg 150 mg, [facility] (XOLAIR) 0-20 10-20 Subcutaneo ity of injection 18:00: 17:06 [place], ONCE, [place] 150 mg 00 :00 1 dose, On [facility] [place] [facility] 06/25/22 at 1300, Routine
Restricte d use approved by: CATRACHITA MERCADO MD. (ALLERGY/I MMUNOLOGY) omalizumab 2021-09- No [id number] 150mg 150 mg, Univers (XOLAIR) 0-20 10-20 Subcutaneo ity of injection 18:00: 17:06 [place], ONCE, [place] 150 mg 00 :00 1 dose, On Medical [facility] Branch 06/25/22 at 1300, Routine
Restricte d use approved by: CATRACHITA MERCADO MD. (ALLERGY/I MMUNOLOGY) omalizumab 2021- No [id number] 150mg U nivers (XOLAIR) 05-28 ity of injection 17:45: 17:10 [place] 150 mg 00 :00 Medical Branch omalizumab 2021- No [id number] 150mg U nivers (XOLAIR) 05-28 ity of injection 17:45: 17:10 [place] 150 mg 00 :00 Medical Branch omalizumab 2021- No [id number] 150mg U nivers (XOLAIR) 05-28 ity of injection 17:45: 17:09 [place] 150 mg 00 :00 Medical Branch omalizumab 2021- No [id number] 150mg 150 mg, Univers (XOLAIR) 05-28 Subcutaneo ity of injection 17:45: 17:09 [place], ONCE, [place] 150 mg 00 :00 1 dose, On [facility] [place] [facility] 05/28/22 at 1245, Routine
Restricte d use approved by: CATRACHITA MERCADO MD. (ALLERGY/I MMUNOLOGY) omalizumab 2021- No [id number] 150mg 150 mg, Univers (XOLAIR) 05-28 Subcutaneo ity of injection 17:45: 17:10 [place], ONCE, [place] 150 mg 00 :00 1 dose, On [facility] Branch 05/28/22 at 1245, Routine
Restricte d use approved by: CATRACHITA MERCADO MD. (ALLERGY/I MMUNOLOGY) omalizumab 2021- No [id number] 150mg 150 mg, Univers (XOLAIR) 05-28 Subcutaneo ity of injection 17:45: 17:10 [place], ONCE, [place] 150 mg 00 :00 1 dose, On [facility] Branch 05/28/22 at 1245, Routine
Restricte d use approved by: CATRACHITA MERCADO MD. (ALLERGY/I MMUNOLOGY) omalizumab 2021- No [id number] 150mg U nivers (XOLAIR) 05-28 ity of injection 17:45: 17:10 [place] 150 mg 00 :00 Medical Branch omalizumab 2021- No [id number] 150mg U nivers (XOLAIR) 05-28 ity of injection 17:45: 17:10 [place] 150 mg 00 :00 Medical Branch omalizumab 2021- No [id number] 150mg U nivers (XOLAIR) 05-28 ity of injection 17:45: 17:09 [place] 150 mg 00 :00 Medical Branch omalizumab 2021- No [id number] 150mg 150 mg, Univers (XOLAIR) 05-28 Subcutaneo ity of injection 17:45: 17:09 [place], ONCE, [place] 150 mg 00 :00 1 dose, On [facility] Branch 05/28/22 at 1245, Routine
Restricte d use approved by: CATRACHITA MERCADO MD. (ALLERGY/I MMUNOLOGY) omalizumab 2021- No [id number] 150mg 150 mg, Univers (XOLAIR) 05-28 Subcutaneo ity of injection 17:45: 17:10 [place], ONCE, [place] 150 mg 00 :00 1 dose, On [facility] Branch 05/28/22 at 1245, Routine
Restricte d use approved by: CATRACHITA MERCADO MD. (ALLERGY/I MMUNOLOGY) omalizumab 2021- No [id number] 150mg 150 mg, Univers (XOLAIR) 05-28 Subcutaneo ity of injection 17:45: 17:10 [place], ONCE, [place] 150 mg 00 :00 1 dose, On [facility] 05/28/22 at 1245, Routine
Restricte d use approved by: CATRACHITA MERCADO MD. (ALLERGY/I MMUNOLOGY) omalizumab 2021- No [id number] 150mg U nivers (XOLAIR) 05-28 ity of injection 17:45: 17:10 [place] 150 mg 00 :00 Medical Branch omalizumab 2021- No [id number] 150mg U nivers (XOLAIR) 05-28 ity of injection 17:45: 17:10 [place] 150 mg 00 :00 Medical Branch omalizumab 2021- No [id number] 150mg U nivers (XOLAIR) 05-28 ity of injection 17:45: 17:09 [place] 150 mg 00 :00 Medical Branch omalizumab 2021- No [id number] 150mg 150 mg, Univers (XOLAIR) 05-28 Subcutaneo ity of injection 17:45: 17:09 [place], ONCE, [place] 150 mg 00 :00 1 dose, On [facility] 05/28/22 at 1245, Routine
Restricte d use approved by: CATRACHITA MERCADO MD. (ALLERGY/I MMUNOLOGY) omalizumab 2021- No [id number] 150mg 150 mg, Univers (XOLAIR) 05-28 Subcutaneo ity of injection 17:45: 17:10 [place], ONCE, [place] 150 mg 00 :00 1 dose, On [facility] Branch 05/28/22 at 1245, Routine
Restricte d use approved by: CATRACHITA MERCADO MD. (ALLERGY/I MMUNOLOGY) omalizumab 2021- No [id number] 150mg 150 mg, Univers (XOLAIR) 05-28 Subcutaneo ity of injection 17:45: 17:10 [place], ONCE, [place] 150 mg 00 :00 1 dose, On [facility] Branch 05/28/22 at 1245, Routine
Restricte d use approved by: CATRACHITA MERCADO MD. (ALLERGY/I MMUNOLOGY) omalizumab 2021- No [id number] 150mg U nivers (XOLAIR) 05-28 ity of injection 17:45: 17:10 [place] 150 mg 00 :00 Medical Branch omalizumab 2021- No [id number] 150mg U nivers (XOLAIR) 05-28 ity of injection 17:45: 17:10 [place] 150 mg 00 :00 [facility] Branch omalizumab 2021- No [id number] 150mg U nivers (XOLAIR) 05-28 ity of injection 17:45: 17:09 [place] 150 mg 00 :00 [facility] Branch omalizumab 2021- No [id number] 150mg 150 mg, Univers (XOLAIR) 05-28 Subcutaneo ity of injection 17:45: 17:09 [place], ONCE, [place] 150 mg 00 :00 1 dose, On [facility] Branch 05/28/22 at 1245, Routine
Restricte d use approved by: CATRACHITA MERCADO MD. (ALLERGY/I MMUNOLOGY) omalizumab 2021- No [id number] 150mg 150 mg, Univers (XOLAIR) 05-28 Subcutaneo ity of injection 17:45: 17:10 [place], ONCE, [place] 150 mg 00 :00 1 dose, On [facility] [place] [facility] 05/28/22 at 1245, Routine
Restricte d use approved by: CATRACHITA MERCADO MD. (ALLERGY/I MMUNOLOGY) omalizumab 2021- No [id number] 150mg 150 mg, Univers (XOLAIR) 05-28 Subcutaneo ity of injection 17:45: 17:10 [place], ONCE, [place] 150 mg 00 :00 1 dose, On [facility] [place] [facility] 05/28/22 at 1245, Routine
Restricte d use approved by: CATRACHITA MERCADO MD. (ALLERGY/I MMUNOLOGY) omalizumab 2021- No [id number] 150mg U nivers (XOLAIR) 04-30 ity of injection 17:30: 16:42 [place] 150 mg 00 :00 Medical Branch omalizumab 2021- No [id number] 150mg U nivers (XOLAIR) 04-30 ity of injection 17:30: 16:42 [place] 150 mg 00 :00 Medical Branch omalizumab 2021- No [id number] 150mg U nivers (XOLAIR) 04-30 ity of injection 17:30: 16:42 [place] 150 mg 00 :00 Medical Branch omalizumab 2021- No [id number] 150mg 150 mg, Univers (XOLAIR) 04-30 Subcutaneo ity of injection 17:30: 16:42 [place], ONCE, [place] 150 mg 00 :00 1 dose, On [facility] [place] [facility] 04/30/22 at 1230, Routine
Restricte d use approved by: CATRACHITA MERCADO MD. (ALLERGY/I MMUNOLOGY) omalizumab 2021- No [id number] 150mg 150 mg, Univers (XOLAIR) 04-30 Subcutaneo ity of injection 17:30: 16:42 [place], ONCE, [place] 150 mg 00 :00 1 dose, On Medical [facility] Branch 04/30/22 at 1230, Routine
Restricte d use approved by: CATRACHITA MERCADO MD. (ALLERGY/I MMUNOLOGY) omalizumab 2021- No [id number] 150mg 150 mg, Univers (XOLAIR) 04-30 08-25 Subcutaneo ity of injection 17:30: 16:42 [place], ONCE, [place] 150 mg 00 :00 1 dose, On [facility] Branch 04/30/22 at 1230, Routine
Restricte d use approved by: CATRACHITA MERCADO MD. (ALLERGY/I MMUNOLOGY) famotidine Yes [id number] 20mg Take 1 U nivers (PEPCID) 20 8-25 tablet by ity of mg tablet 00:00: [place] 00 the Medical morning Branch and 1 tablet in the evening. famotidine 2021-0 Yes [id number] 20mg Take 1 U nivers (PEPCID) 20 8-25 tablet by ity of mg tablet 00:00: [place] 00 the Medical morning Branch and 1 tablet in the evening. famotidine 2021-0 Yes [id number] 20mg Take 1 U nivers (PEPCID) 20 8-25 tablet by ity of mg tablet 00:00: mouth [place] 00 the Medical morning Branch and 1 tablet in the evening. montelukast 2021-0 Yes [id number] 10mg Take 1 [facility] 10 mg 8-25 tablet by ity of tablet 00:00: mouth in [place] 00 the Medical morning. Branch famotidine 2021-0 Yes [id number] 20mg Take 1 U nivers (PEPCID) 20 8-25 tablet by ity of mg tablet 00:00: mouth [place] 00 the Medical morning Branch and 1 tablet in the evening. montelukast 2021-0 Yes [id number] 10mg Take 1 [facility] 10 mg 8-25 tablet by ity of tablet 00:00: mouth in [place] [address] the Medical morning. Branch famotidine 2021-0 Yes [id number] 20mg Take 1 U nivers (PEPCID) 20 8-25 tablet by ity of mg tablet 00:00: mouth [place] 00 the Medical morning Branch and 1 tablet in the evening. montelukast 2022-0 Yes [id number] 10mg Take 1 [facility] 10 mg 8-25 tablet by ity of tablet 00:00: mouth in [place] 00 the Medical morning. Branch famotidine 2-0 Yes [id number] 20mg Take 1 U nivers (PEPCID) 20 8-25 tablet by ity of mg tablet 00:00: mouth [place] 00 the Medical morning Branch and 1 tablet in the evening. montelukast 2-0 Yes [id number] 10mg Take 1 [facility] 10 mg 8-25 tablet by ity of tablet 00:00: mouth in [place] 00 the Medical morning. Branch famotidine 2021-0 Yes [id number] 20mg Take 1 U nivers (PEPCID) 20 8-25 tablet by ity of mg tablet 00:00: mouth in [facility] 00 the Medical morning Branch and 1 tablet in the evening. montelukast 2021-0 Yes [id number] 10mg Take 1 [facility] 10 mg 8-25 tablet by ity of tablet 00:00: mouth in [place] 00 the Medical morning. Branch famotidine 2021-0 Yes [id number] 20mg Take 1 U nivers (PEPCID) 20 8-25 tablet by ity of mg tablet 00:00: mouth in [facility] 00 the Medical morning Branch and 1 tablet in the evening. montelukast 2-0 Yes [id number] 10mg Take 1 [facility] 10 mg 8-25 tablet by ity of tablet 00:00: mouth in [place] 00 the Medical morning. Branch famotidine 2021-0 Yes [id number] 20mg Take 1 U nivers (PEPCID) 20 8-25 tablet by ity of mg tablet 00:00: mouth in [facility] 00 the Medical morning Branch and 1 tablet in the evening. montelukast 2-0 Yes [id number] 10mg Take 1 [facility] 10 mg 8-25 tablet by ity of tablet 00:00: mouth in [place] 00 the Medical morning. Branch famotidine 2-0 Yes [id number] 20mg Take 1 U nivers (PEPCID) 20 8-25 tablet by ity of mg tablet 00:00: mouth in [facility] 00 the Medical morning Branch and 1 tablet in the evening. montelukast 2022-0 Yes [id number] 10mg Take 1 [facility] 10 mg 8-25 tablet by ity of tablet 00:00: mouth in [place] 00 the Medical morning. Branch famotidine 2021-0 Yes [id number] 20mg Take 1 U nivers (PEPCID) 20 8-25 tablet by ity of mg tablet 00:00: [place] 00 the Medical morning Branch and 1 tablet in the evening. montelukast 2021-0 Yes [id number] 10mg Take 1 [facility] 10 mg 8-25 tablet by ity of tablet 00:00: mouth in [place] 00 the Medical morning. Branch famotidine 2021-0 Yes [id number] 20mg Take 1 U nivers (PEPCID) 20 8-25 tablet by ity of mg tablet 00:00: mouth in [facility] 00 the Medical morning Branch and 1 tablet in the evening. montelukast 2021-0 Yes [id number] 10mg Take 1 [facility] 10 mg 8-25 tablet by ity of tablet 00:00: mouth in [place] 00 the Medical morning. Branch famotidine 2021-0 Yes [id number] 20mg Take 1 U nivers (PEPCID) 20 8-25 tablet by ity of mg tablet 00:00: mouth in [facility] 00 the Medical morning Branch and 1 tablet in the evening. montelukast 2021-0 Yes [id number] 10mg Take 1 [facility] 10 mg 8-25 tablet by ity of tablet 00:00: mouth in [place] 00 the Medical morning. Branch famotidine 2021-0 Yes [id number] 20mg Take 1 U nivers (PEPCID) 20 8-25 tablet by ity of mg tablet 00:00: [place] 00 the Medical morning Branch and 1 tablet in the evening. montelukast 2021-0 Yes [id number] 10mg Take 1 [facility] 10 mg 8-25 tablet by ity of tablet 00:00: mouth in [place] 00 the Medical morning. Branch famotidine 2021-0 Yes [id number] 20mg Take 1 U nivers (PEPCID) 20 8-25 tablet by ity of mg tablet 00:00: [place] 00 the Medical morning Branch and 1 tablet in the evening. montelukast 2021-0 Yes [id number] 10mg Take 1 [facility] 10 mg 8-25 tablet by ity of tablet 00:00: mouth in [place] 00 the Medical morning. Branch famotidine 2021-0 Yes [id number] 20mg Take 1 U nivers (PEPCID) 20 8-25 tablet by ity of mg tablet 00:00: mouth [place] 00 the Medical morning Branch and 1 tablet in the evening. montelukast 2-0 Yes [id number] 10mg Take 1 [facility] 10 mg 8-25 tablet by ity of tablet 00:00: mouth in [place] 00 the Medical morning. Branch famotidine 2021-0 Yes [id number] 20mg Take 1 U nivers (PEPCID) 20 8-25 tablet by ity of mg tablet 00:00: mouth in [facility] 00 the Medical morning Branch and 1 tablet in the evening. montelukast 2021-0 Yes [id number] 10mg Take 1 Univers 10 mg 8-25 tablet by ity of tablet 00:00: mouth in [place] 00 the Medical morning. Branch famotidine 2021-0 Yes [id number] 20mg Take 1 U nivers (PEPCID) 20 8-25 tablet by ity of mg tablet 00:00: mouth in [facility] 00 the Medical morning Branch and 1 tablet in the evening. montelukast 2021-0 Yes [id number] 10mg Take 1 [facility] 10 mg 8-25 tablet by ity of tablet 00:00: mouth in [place] 00 the Medical morning. Branch famotidine 2021-0 Yes [id number] 20mg Take 1 U nivers (PEPCID) 20 8-25 tablet by ity of mg tablet 00:00: mouth in [facility] 00 the Medical morning Branch and 1 tablet in the evening. famotidine 2-0 Yes [id number] 20mg Take 1 U nivers (PEPCID) 20 8-25 tablet by ity of mg tablet 00:00: [place] 00 the Medical morning Branch and 1 tablet in the evening. famotidine 2022-0 Yes [id number] 20mg Take 1 U nivers (PEPCID) 20 8-25 tablet by ity of mg tablet 00:00: [place] 00 the Medical morning Branch and 1 tablet in the evening. famotidine 2-0 Yes [id number] 20mg Take 1 U nivers (PEPCID) 20 8-25 tablet by ity of mg tablet 00:00: [place] 00 the Medical morning Branch and 1 tablet in the evening. famotidine 2022-0 Yes [id number] 20mg Take 1 U nivers (PEPCID) 20 8-25 tablet by ity of mg tablet 00:00: [place] 00 the Medical morning Branch and 1 tablet in the evening. famotidine 2022-0 Yes [id number] 20mg Take 1 U nivers (PEPCID) 20 8-25 tablet by ity of mg tablet 00:00: [place] the Medical morning Branch and 1 tablet in the evening. famotidine 2-0 Yes [id number] 20mg Take 1 U nivers (PEPCID) 20 8-25 tablet by [place]y of mg tablet 00:00: [place] Branch and 1 tablet in the evening. famotidine 2-0 Yes [id number] 20mg Take 1 U nivers (PEPCID) 20 8-25 tablet by ity of mg tablet 00:00: [place] Branch and 1 tablet in the evening. famotidine 2021-0 Yes [id number] 20mg Take 1 U nivers (PEPCID) 20 8-25 tablet by ity of mg tablet 00:00: [place] Medical morning Branch and 1 tablet in the evening. famotidine 2-0 Yes [id number] 20mg Take 1 U nivers (PEPCID) 20 8-25 tablet by ity of mg tablet 00:00: [place] 00 the Medical morning Branch and 1 tablet in the evening. famotidine 2-0 Yes [id number] 20mg Take 1 U nivers (PEPCID) 20 8-25 tablet by ity of mg tablet 00:00: [place] 00 the Medical morning Branch and 1 tablet in the evening. famotidine 2022-0 Yes [id number] 20mg Take 1 U nivers (PEPCID) 20 8-25 tablet by ity of mg tablet 00:00: [place] 00 the Medical morning Branch and 1 tablet in the evening. famotidine 2022-0 Yes [id number] 20mg Take 1 U nivers (PEPCID) 20 8-25 tablet by ity of mg tablet 00:00: [place] 00 the Medical morning Branch and 1 tablet in the evening. famotidine 2-0 Yes [id number] 20mg Take 1 U nivers (PEPCID) 20 8-25 tablet by ity of mg tablet 00:00: [place] 00 the Medical morning Branch and 1 tablet in the evening. famotidine 2-0 Yes [id number] 20mg Take 1 U nivers (PEPCID) 20 8-25 tablet by ity of mg tablet 00:00: [place] the Medical morning Branch and 1 tablet in the evening. famotidine 2-0 Yes [id number] 20mg Take 1 U nivers (PEPCID) 20 8-25 tablet by [facility] mg tablet 00:00: [place] the Medical morning Branch and 1 tablet in the evening. famotidine 2-0 Yes [id number] 20mg Take 1 [facility] (PEPCID) 20 8-25 tablet by [facility] mg tablet 00:00: [place] the [facility] morning Branch and 1 tablet in the evening. famotidine 2-0 Yes [id number] 20mg Take 1 [facility] (PEPCID) 20 8-25 tablet by [facility] mg tablet 00:00: [place] the Medical morning Branch and 1 tablet in the evening. famotidine 2-0 Yes [id number] 20mg Take 1 [facility] (PEPCID) 20 8-25 tablet by [facility] mg tablet 00:00: [place] 00 the Medical morning Branch and 1 tablet in the evening. famotidine 2-0 Yes [id number] 20mg Take 1 [facility] (PEPCID) 20 8-25 tablet by [facility] mg tablet 00:00: [place] 00 the Medical morning Branch and 1 tablet in the evening. famotidine 2022-0 Yes [id number] 20mg Take 1 [facility] (PEPCID) 20 8-25 tablet by [facility] mg tablet 00:00: [place] 00 the Medical morning Branch and 1 tablet in the evening. famotidine 2022-0 Yes [id number] 20mg Take 1 [facility] (PEPCID) 20 8-25 tablet by [facility] mg tablet 00:00: [place] 00 the Medical morning Branch and 1 tablet in the evening. famotidine 2022- No [id number] 20mg Take 1 [facility] (PEPCID) 20 8-25 - tablet by it y of mg tablet 00:00: 00:00 mouth [place] 00 :00 the Medical morning Branch and 1 tablet in the evening. famotidine 2022- No [id number] 20mg Take 1 [facility] (PEPCID) 20 8-25 - tablet by it y of mg tablet 00:00: 00:00 mouth in [place] 00 :00 the Medical morning Branch and 1 tablet in the evening. famotidine 2022- No [id number] 20mg Take 1 [facility] (PEPCID) 20 8-28 02- tablet by it y of mg tablet 00:00: 00:00 mouth in [place] 00 :00 the Medical morning Branch and 1 tablet in the evening. montelukast 2021-2022- No [id number] 10mg Take 1 [facility] 10 mg 8-25 -06 tablet by ity of tablet 00:00: 00:00 mouth in [place] 00 :00 the Medical morning. Branch montelukast 2021-2022- No [id number] 10mg Take 1 [facility] 10 mg 8-25 -06 tablet by ity of tablet 00:00: 00:00 mouth in [place] 00 :00 the Medical morning. Branch montelukast 2022- No [id number] 10mg Take 1 [facility] 10 mg 8-25 -06 tablet by ity of tablet 00:00: 00:00 mouth in [place] 00 :00 the Medical morning. Branch cetirizine 2021-2022- No [id number] 10mg Take 1 [facility] 10 mg 7-28 -25 tablet by ity of tablet 00:00: 05:59 mouth in [place] 00 :00 the Medical morning Branch and 1 tablet in the evening. Do all this for 180 days. cetirizine 2021-0 2022- No [id number] 10mg Take 1 [facility] 10 mg 7-28 -25 tablet by ity of tablet 00:00: 05:59 mouth in [place] 00 :00 the Medical morning Branch and 1 tablet in the evening. Do all this for 180 days. cetirizine 2021-0 2022- No [id number] 10mg Take 1 [facility] 10 mg 7-28 01-25 tablet by ity of tablet 00:00: 05:59 mouth in [place] 00 :00 the Medical morning Branch and 1 tablet in the evening. Do all this for 180 days. cetirizine 2021-0 2022- No [id number] 10mg Take 1 [facility] 10 mg 7-28 01-25 tablet by ity of tablet 00:00: 05:59 mouth in [place] 00 :00 the [facility] morning Branch and 1 tablet in the evening. Do all this for 180 days. cetirizine 2021-2022- No [id number] 10mg Take 1 [facility] 10 mg 7-28 01-25 tablet by ity of tablet 00:00: 05:59 mouth in [place] 00 :00 the Medical morning Branch and 1 tablet in the evening. Do all this for 180 days. cetirizine 2021-2022- No [id number] 10mg Take 1 [facility] 10 mg 7-28 -25 tablet by ity of tablet 00:00: 05:59 mouth in [place] 00 :00 the [facility] and 1 tablet in the evening. Do all this for 180 days. cetirizine 2021-2022- No [id number] 10mg Take 1 [facility] 10 mg 7-28 -25 tablet by ity of tablet 00:00: 05:59 mouth in [place] 00 :00 the [facility] and 1 tablet in the evening. Do all this for 180 days. cetirizine 2021-2022- No [id number] 10mg Take 1 [facility] 10 mg 7-28 -25 tablet by ity of tablet 00:00: 05:59 mouth in [place] 00 :00 the [facility] morning Branch and 1 tablet in the evening. Do all this for 180 days. cetirizine 2021-0 2022- No [id number] 10mg Take 1 [facility] 10 mg 7-28 01-25 tablet by ity of tablet 00:00: 05:59 mouth in [place] 00 :00 the [facility] morning Branch and 1 tablet in the evening. Do all this for 180 days. cetirizine 2021-2022- No [id number] 10mg Take 1 [facility] 10 mg 7-28 01-25 tablet by ity of tablet 00:00: 05:59 mouth in [place] 00 :00 the [facility] morning [place] and 1 tablet in the evening. Do all this for 180 days. cetirizine 2022- No [id number] 10mg Take 1 [facility] 10 mg 7-28 -25 tablet by ity of tablet 00:00: 05:59 mouth in [place] 00 :00 the Medical morning Branch and 1 tablet in the evening. Do all this for 180 days. cetirizine 2022- No [id number] 10mg Take 1 [facility] 10 mg 7-28 -25 tablet by ity of tablet 00:00: 05:59 mouth in [place] 00 :00 the Medical morning Branch and 1 tablet in the evening. Do all this for 180 days. cetirizine 2022- No [id number] 10mg Take 1 [facility] 10 mg 7-28 -25 tablet by ity of tablet 00:00: 05:59 mouth in [place] 00 :00 the Medical morning Branch and 1 tablet in the evening. Do all this for 180 days. cetirizine No [id number] 10mg Take 1 [facility] 10 mg 7-28 -25 tablet by ity of tablet 00:00: 05:59 mouth in [place] 00 :00 the Medical morning Branch and 1 tablet in the evening. Do all this for 180 days. cetirizine No [id number] 10mg Take 1 [facility] 10 mg 7-03 10-25 tablet by ity of tablet 00:00: 05:59 mouth in [place] 00 :00 the Medical morning Branch and 1 tablet in the evening. Do all this for 180 days. cetirizine 2022- No [id number] 10mg Take 1 [facility] 10 mg 7-28 -25 tablet by ity of tablet 00:00: 05:59 mouth in [place] 00 :00 the Medical morning Branch and 1 tablet in the evening. Do all this for 180 days. cetirizine 2021-2022- No [id number] 10mg Take 1 [facility] 10 mg 7-28 -25 tablet by ity of tablet 00:00: 05:59 mouth in [place] 00 :00 the Medical morning Branch and 1 tablet in the evening. Do all this for 180 days. cetirizine 2022- No [id number] 10mg Take 1 [facility] 10 mg 7-28 -25 tablet by ity of tablet 00:00: 05:59 mouth in [place] 00 :00 the Medical morning Branch and 1 tablet in the evening. Do all this for 180 days. cetirizine 2021-2022- No [id number] 10mg Take 1 [facility] 10 mg 7-28 -25 tablet by ity of tablet 00:00: 05:59 mouth in [place] 00 :00 the Medical morning Branch and 1 tablet in the evening. Do all this for 180 days. cetirizine 2021-0 2022- No [id number] 10mg Take 1 [facility] 10 mg 7-28 -25 tablet by ity of tablet 00:00: 05:59 mouth in [place] 00 :00 the Medical morning Branch and 1 tablet in the evening. Do all this for 180 days. cetirizine 2021-0 2022- No [id number] 10mg Take 1 [facility] 10 mg 7-28 -25 tablet by ity of tablet 00:00: 05:59 mouth in [place] 00 :00 the Medical morning Branch and 1 tablet in the evening. Do all this for 180 days. cetirizine 2021-0 2022- No [id number] 10mg Take 1 [facility] 10 mg 7-28 [...] (four) Branch weeks. famotidine 2021-0 2022- No [id number] 20mg Take 1 [facility] (PEPCID) 20 01-09 08-25 tablet by it y of mg tablet 00:00: 00:[place] mouth [place] 00 :00 (two) Medical times Branch daily. montelukast 2021- No [id number] 10mg Take 1 [facility] 10 mg 5-06 08-25 tablet by ity of tablet 00:00: 00:00 mouth [place] 00 :00 daily. Medical Branch ondansetron 0 Yes [id number] 4mg Take 1 [facility] 4 mg 3-19 tablet by ity of disintegrat 00:00: mouth [place] ing tablet 00 every 8 Medica l (eight) Branch hours as needed for Nausea and Vomiting (N/V). ondansetron Yes [id number] 4mg Take 1 [facility] 4 mg 3-19 tablet by ity of disintegrat 00:00: mouth [place] ing tablet 00 every 8 Medica l (eight) Branch hours as needed for Nausea and Vomiting (N/V). ondansetron Yes [id number] 4mg Take 1 [facility] 4 mg 3-19 tablet by ity of disintegrat 00:00: mouth [place] ing tablet 00 every 8 Medica l (eight) Branch hours as needed for Nausea and Vomiting (N/V). ondansetron Yes [id number] 4mg Take 1 [facility] 4 mg 3-19 tablet by ity of disintegrat 00:00: mouth [place] ing tablet 00 every 8 Medica l (eight) Branch hours as needed for Nausea and Vomiting (N/V). ondansetron Yes [id number] 4mg Take 1 [facility] 4 mg 3-19 tablet by ity of disintegrat 00:00: mouth [place] ing tablet 00 every 8 Medica l (eight) Branch hours as needed for Nausea and Vomiting (N/V). ondansetron Yes [id number] 4mg Take 1 [facility] 4 mg 3-19 tablet by ity of disintegrat 00:00: mouth [place] ing tablet 00 every 8 Medica l (eight) Branch hours as needed for Nausea and Vomiting (N/V). ondansetron 2021-0 Yes [id number] 4mg Take 1 [facility] 4 mg 3-19 tablet by ity of disintegrat 00:00: mouth [place] ing tablet 00 every 8 Medica l (eight) Branch hours as needed for Nausea and Vomiting (N/V). ondansetron Yes [id number] 4mg Take 1 [facility] 4 mg 3-19 tablet by ity of disintegrat 00:00: mouth [place] ing tablet 00 every 8 Medica l (eight) Branch hours as needed for Nausea and Vomiting (N/V). ondansetron 2-0 Yes [id number] 4mg Take 1 [facility] 4 mg 3-19 tablet by ity of disintegrat 00:00: mouth [place] ing tablet 00 every 8 Medica l (eight) Branch hours as needed for Nausea and Vomiting (N/V). ondansetron 2-0 Yes [id number] 4mg Take 1 [facility] 4 mg 3-19 tablet by ity of disintegrat 00:00: mouth [place] ing tablet 00 every 8 Medica l (eight) Branch hours as needed for Nausea and Vomiting (N/V). ondansetron 2-0 Yes [id number] 4mg Take 1 [facility] 4 mg 3-19 tablet by ity of disintegrat 00:00: mouth [place] ing tablet 00 every 8 Medica l (eight) Branch hours as needed for Nausea and Vomiting (N/V). ondansetron 2-0 Yes [id number] 4mg Take 1 [facility] 4 mg 3-19 tablet by ity of disintegrat 00:00: mouth [place] ing tablet 00 every 8 Medica l (eight) Branch hours as needed for Nausea and Vomiting (N/V). ondansetron 2-0 Yes [id number] 4mg Take 1 [facility] 4 mg 3-19 tablet by ity of disintegrat 00:00: mouth [place] ing tablet 00 every 8 Medica l (eight) Branch hours as needed for Nausea and Vomiting (N/V). ondansetron 2-0 Yes [id number] 4mg Take 1 [facility] 4 mg 3-19 tablet by ity of disintegrat 00:00: mouth [place] ing tablet 00 every 8 Medica l (eight) Branch hours as needed for Nausea and Vomiting (N/V). ondansetron 2-0 Yes [id number] 4mg Take 1 [facility] 4 mg 3-19 tablet by ity of disintegrat 00:00: mouth [place] ing tablet 00 every 8 Medica l (eight) Branch hours as needed for Nausea and Vomiting (N/V). ondansetron 2022-0 Yes [id number] 4mg Take 1 [facility] 4 mg 3-19 tablet by ity of disintegrat 00:00: mouth [place] ing tablet 00 every 8 Medica l (eight) Branch hours as needed for Nausea and Vomiting (N/V). ondansetron 2-0 Yes [id number] 4mg Take 1 [facility] 4 mg 3-19 tablet by ity of disintegrat 00:00: mouth [place] ing tablet 00 every 8 Medica l (eight) Branch hours as needed for Nausea and Vomiting (N/V). ondansetron 2-0 Yes [id number] 4mg Take 1 [facility] 4 mg 3-19 tablet by ity of disintegrat 00:00: mouth [place] ing tablet 00 every 8 Medica l (eight) Branch hours as needed for Nausea and Vomiting (N/V). ondansetron 2-0 Yes [id number] 4mg Take 1 [facility] 4 mg 3-19 tablet by ity of disintegrat 00:00: mouth [place] ing tablet 00 every 8 Medica l (eight) Branch hours as needed for Nausea and Vomiting (N/V). ondansetron 2-0 Yes [id number] 4mg Take 1 [facility] 4 mg 3-19 tablet by ity of disintegrat 00:00: mouth [place] ing tablet 00 every 8 Medica l (eight) Branch hours as needed for Nausea and Vomiting (N/V). ondansetron 2-0 Yes [id number] 4mg Take 1 [facility] 4 mg 3-19 tablet by ity of disintegrat 00:00: mouth [place] ing tablet 00 every 8 Medica l (eight) Branch hours as needed for Nausea and Vomiting (N/V). ondansetron 2-0 Yes [id number] 4mg Take 1 [facility] 4 mg 3-19 tablet by ity of disintegrat 00:00: mouth [place] ing tablet 00 every 8 Medica l (eight) Branch hours as needed for Nausea and Vomiting (N/V). ondansetron 2-0 Yes [id number] 4mg Take 1 [facility] 4 mg 3-19 tablet by ity of disintegrat 00:00: mouth [place] ing tablet 00 every 8 Medica l (eight) Branch hours as needed for Nausea and Vomiting (N/V). ondansetron 2022-0 Yes [id number] 4mg Take 1 [facility] 4 mg 3-19 tablet by ity of disintegrat 00:00: mouth [place] ing tablet 00 every 8 Medica l (eight) Branch hours as needed for Nausea and Vomiting (N/V). ondansetron 2022-0 Yes [id number] 4mg Take 1 [facility] 4 mg 3-19 tablet by ity of disintegrat 00:00: mouth [place] ing tablet 00 every 8 Medica l (eight) Branch hours as needed for Nausea and Vomiting (N/V). ondansetron 2-0 Yes [id number] 4mg Take 1 [facility] 4 mg 3-19 tablet by ity of disintegrat 00:00: mouth [place] ing tablet 00 every 8 Medica l (eight) Branch hours as needed for Nausea and Vomiting (N/V). ondansetron 2-0 Yes [id number] 4mg Take 1 [facility] 4 mg 3-19 tablet by ity of disintegrat 00:00: mouth [place] ing tablet 00 every 8 Medica l (eight) Branch hours as needed for Nausea and Vomiting (N/V). ondansetron 2-0 Yes [id number] 4mg Take 1 [facility] 4 mg 3-19 tablet by ity of disintegrat 00:00: mouth [place] ing tablet 00 every 8 Medica l (eight) Branch hours as needed for Nausea and Vomiting (N/V). ondansetron 2021-0 Yes [id number] 4mg Take 1 [facility] 4 mg 3-19 tablet by ity of disintegrat 00:00: mouth [place] ing tablet 00 every 8 Medica l (eight) Branch hours as needed for Nausea and Vomiting (N/V). ondansetron 2-0 Yes [id number] 4mg Take 1 [facility] 4 mg 3-19 tablet by ity of disintegrat 00:00: mouth [place] ing tablet 00 every 8 Medica l (eight) Branch hours as needed for Nausea and Vomiting (N/V). ondansetron 2-0 Yes [id number] 4mg Take 1 [facility] 4 mg 3-19 tablet by ity of disintegrat 00:00: mouth [place] ing tablet 00 every 8 Medica l (eight) Branch hours as needed for Nausea and Vomiting (N/V). ondansetron 2-0 Yes [id number] 4mg Take 1 [facility] 4 mg 3-19 tablet by ity of disintegrat 00:00: mouth [place] ing tablet 00 every 8 Medica l (eight) Branch hours as needed for Nausea and Vomiting (N/V). ondansetron 2-0 Yes [id number] 4mg Take 1 [facility] 4 mg 3-19 tablet by ity of disintegrat 00:00: mouth [place] ing tablet 00 every 8 Medica l (eight) Branch hours as needed for Nausea and Vomiting (N/V). ondansetron 2-0 Yes [id number] 4mg Take 1 [facility] 4 mg 3-19 tablet by ity of disintegrat 00:00: mouth [place] ing tablet 00 every 8 Medica l (eight) Branch hours as needed for Nausea and Vomiting (N/V). ondansetron 2-0 Yes [id number] 4mg Take 1 [facility] 4 mg 3-19 tablet by ity of disintegrat 00:00: mouth [place] ing tablet 00 every 8 Medica l (eight) Branch hours as needed for Nausea and Vomiting (N/V). ondansetron 2-0 Yes [id number] 4mg Take 1 [facility] 4 mg 3-19 tablet by ity of disintegrat 00:00: mouth [place] ing tablet 00 every 8 Medica l (eight) Branch hours as needed for Nausea and Vomiting (N/V). ondansetron 2-0 Yes [id number] 4mg Take 1 [facility] 4 mg 3-19 tablet by ity of disintegrat 00:00: mouth [place] ing tablet 00 every 8 Medica l (eight) Branch hours as needed for Nausea and Vomiting (N/V). ondansetron 2-0 Yes [id number] 4mg Take 1 [facility] 4 mg 3-19 tablet by ity of disintegrat 00:00: mouth [place] ing tablet 00 every 8 Medica l (eight) Branch hours as needed for Nausea and Vomiting (N/V). ondansetron 2-0 Yes [id number] 4mg Take 1 [facility] 4 mg 3-19 tablet by ity of disintegrat 00:00: mouth [place] ing tablet 00 every 8 Medica l (eight) Branch hours as needed for Nausea and Vomiting (N/V). ondansetron 2-0 Yes [id number] 4mg Take 1 [facility] 4 mg 3-19 tablet by ity of disintegrat 00:00: mouth [place] ing tablet 00 every 8 Medica l (eight) Branch hours as needed for Nausea and Vomiting (N/V). ondansetron 2022-0 Yes [id number] 4mg Take 1 [facility] 4 mg 3-19 tablet by ity of disintegrat 00:00: mouth [place] ing tablet 00 every 8 Medica l (eight) Branch hours as needed for Nausea and Vomiting (N/V). ondansetron 2022-0 Yes [id number] 4mg Take 1 [facility] 4 mg 3-19 tablet by ity of disintegrat 00:00: mouth [place] ing tablet 00 every 8 Medica l (eight) Branch hours as needed for Nausea and Vomiting (N/V). ondansetron 2022-0 Yes [id number] 4mg Take 1 [facility] 4 mg 3-19 tablet by ity of disintegrat 00:00: mouth [place] ing tablet 00 every 8 Medica l (eight) Branch hours as needed for Nausea and Vomiting (N/V). ondansetron 2022-0 Yes [id number] 4mg Take 1 [facility] 4 mg 3-19 tablet by ity of disintegrat 00:00: mouth [place] ing tablet 00 every 8 Medica l (eight) Branch hours as needed for Nausea and Vomiting (N/V). ondansetron 2022-0 Yes [id number] 4mg Take 1 [facility] 4 mg 3-19 [...] times Medical daily. Branch azelastine 2021-0 Yes [id number] 1{spray Use 1 [facility] 137 mcg 1-22 } [place] in ity of (0.1 %) 00:00: each [place] nasal spray 00 nostril 2 Med ical (two) Branch times daily. Use in each nostril as directed fluticasone 2021-0 Yes [id number] 1{spray Use 1 [facility] propionate 1-22 } [place] in ity o f 50 00:00: each [place] mcg/actuati 00 nostril Medic al on nasal daily. Branch spray azelastine 2021-0 Yes [id number] 1{spray Use 1 [facility] 137 mcg 1-22 } [place] in ity of (0.1 %) 00:00: each [place] nasal spray 00 nostril 2 Med ical (two) Branch times daily. Use in each nostril as directed fluticasone 2021-0 Yes [id number] 1{spray Use 1 [facility] propionate 1-22 } [place] in ity o f 50 00:00: each [place] mcg/actuati 00 nostril Medic al on nasal daily. Branch spray azelastine 2021-0 Yes [id number] 1{spray Use 1 [facility] 137 mcg 1-22 } [place] in ity of (0.1 %) 00:00: each [place] nasal spray 00 nostril 2 Med ical (two) Branch times daily. Use in each nostril as directed fluticasone 2021-0 Yes [id number] 1{spray Use 1 [facility] propionate 1-22 } [place] in ity o f 50 00:00: each [place] mcg/actuati 00 nostril Medic al on nasal daily. Branch spray azelastine 2021-0 Yes [id number] 1{spray Use 1 [facility] 137 mcg 1-22 } [place] in ity of (0.1 %) 00:00: each [place] nasal spray 00 nostril 2 Med ical (two) Branch times daily. Use in each nostril as directed fluticasone 2021-0 Yes [id number] 1{spray Use 1 [facility] propionate 1-22 } [place] in ity o f 50 00:00: each [place] mcg/actuati 00 nostril Medic al on nasal daily. Branch spray azelastine 2021-0 Yes [id number] 1{spray Use 1 [facility] 137 mcg 1-22 } [place] in ity of (0.1 %) 00:00: each [place] nasal spray 00 nostril 2 Med ical (two) Branch times daily. Use in each nostril as directed fluticasone 2021-0 Yes [id number] 1{spray Use 1 [facility] propionate 1-22 } [place] in ity o f 50 00:00: each [place] mcg/actuati 00 nostril Medic al on nasal daily. Branch spray azelastine 2021-0 Yes [id number] 1{spray Use 1 [facility] 137 mcg 1-22 } [place] in ity of (0.1 %) 00:00: each [place] nasal spray 00 nostril 2 Med ical (two) Branch times daily. Use in each nostril as directed fluticasone 2021-0 Yes [id number] 1{spray Use 1 [facility] propionate 1-22 } [place] in ity o f 50 00:00: each [place] mcg/actuati 00 nostril Medic al on nasal daily. Branch spray azelastine 2021-0 Yes [id number] 1{spray Use 1 [facility] 137 mcg 1-22 } [place] in ity of (0.1 %) 00:00: each [place] nasal spray 00 nostril 2 Med ical (two) Branch times daily. Use in each nostril as directed fluticasone 2021-0 Yes [id number] 1{spray Use 1 [facility] propionate 1-22 } [place] in ity o f 50 00:00: each [place] mcg/actuati 00 nostril Medic al on nasal daily. Branch spray azelastine 2021-0 Yes [id number] 1{spray Use 1 [facility] 137 mcg 1-22 } [place] in ity of (0.1 %) 00:00: each [place] nasal spray 00 nostril 2 Med ical (two) Branch times daily. Use in each nostril as directed fluticasone 2-0 Yes [id number] 1{spray Use 1 [facility] propionate 1-22 } [place] in ity o f 50 00:00: each [place] mcg/actuati 00 nostril Medic al on nasal daily. Branch spray azelastine 2021-0 Yes [id number] 1{spray Use 1 [facility] 137 mcg 1-22 } [place] in ity of (0.1 %) 00:00: each [place] nasal spray 00 nostril 2 Med ical (two) Branch times daily. Use in each nostril as directed fluticasone 2021-0 Yes [id number] 1{spray Use 1 [facility] propionate 1-22 } [place] in ity o f 50 00:00: each [place] mcg/actuati 00 nostril Medic al on nasal daily. Branch spray azelastine 2021-0 Yes [id number] 1{spray Use 1 [facility] 137 mcg 1-22 } [place] in ity of (0.1 %) 00:00: each [place] nasal spray 00 nostril 2 Med ical (two) Branch times daily. Use in each nostril as directed fluticasone 2021-0 Yes [id number] 1{spray Use 1 [facility] propionate 1-22 } [place] in ity o f 50 00:00: each [place] mcg/actuati 00 nostril Medic al on nasal daily. Branch spray azelastine 2021-0 Yes [id number] 1{spray Use 1 [facility] 137 mcg 1-22 } [place] in ity of (0.1 %) 00:00: each [place] nasal spray 00 nostril 2 Med ical (two) Branch times daily. Use in each nostril as directed fluticasone 2021-0 Yes [id number] 1{spray Use 1 [facility] propionate 1-22 } [place] in ity o f 50 00:00: each [place] mcg/actuati 00 nostril Medic al on nasal daily. Branch spray azelastine 2021-0 Yes [id number] 1{spray Use 1 [facility] 137 mcg 1-22 } [place] in ity of (0.1 %) 00:00: each [place] nasal spray 00 nostril 2 Med ical (two) Branch times daily. Use in each nostril as directed fluticasone 2021-0 Yes [id number] 1{spray Use 1 [facility] propionate 1-22 } [place] in ity o f 50 00:00: each [place] mcg/actuati 00 nostril Medic al on nasal daily. Branch spray azelastine 2021-0 Yes [id number] 1{spray Use 1 [facility] 137 mcg 1-22 } [place] in ity of (0.1 %) 00:00: each [place] nasal spray 00 nostril 2 Med ical (two) Branch times daily. Use in each nostril as directed fluticasone 2021-0 Yes [id number] 1{spray Use 1 [facility] propionate 1-22 } [place] in ity o f 50 00:00: each [place] mcg/actuati 00 nostril Medic al on nasal daily. Branch spray azelastine 2021-0 Yes [id number] 1{spray Use 1 [facility] 137 mcg 1-22 } [place] in ity of (0.1 %) 00:00: each [place] nasal spray 00 nostril 2 Med ical (two) Branch times daily. Use in each nostril as directed fluticasone 2021-0 Yes [id number] 1{spray Use 1 [facility] propionate 1-22 } [place] in ity o f 50 00:00: each [place] mcg/actuati 00 nostril Medic al on nasal daily. Branch spray azelastine 2021-0 Yes [id number] 1{spray Use 1 [facility] 137 mcg 1-22 } [place] in ity of (0.1 %) 00:00: each [place] nasal spray 00 nostril 2 Med ical (two) Branch times daily. Use in each nostril as directed fluticasone 2021-0 Yes [id number] 1{spray Use 1 [facility] propionate 1-22 } [place] in ity o f 50 00:00: each [place] mcg/actuati 00 nostril Medic al on nasal daily. Branch spray azelastine 2021-0 Yes [id number] 1{spray Use 1 [facility] 137 mcg 1-22 } [place] in ity of (0.1 %) 00:00: each [place] nasal spray 00 nostril 2 Med ical (two) Branch times daily. Use in each nostril as directed fluticasone 2021-0 Yes [id number] 1{spray Use 1 [facility] propionate 1-22 } [place] in ity o f 50 00:00: each [place] mcg/actuati 00 nostril Medic al on nasal daily. Branch spray azelastine 2021-0 Yes [id number] 1{spray Use 1 [facility] 137 mcg 1-22 } [place] in ity of (0.1 %) 00:00: each [place] nasal spray 00 nostril 2 Med ical (two) Branch times daily. Use in each nostril as directed fluticasone 2-0 Yes [id number] 1{spray Use 1 [facility] propionate 1-22 } [place] in ity o f 50 00:00: each [place] mcg/actuati 00 nostril Medic al on nasal daily. Branch spray azelastine 2021-0 Yes [id number] 1{spray Use 1 [facility] 137 mcg 1-22 } [place] in ity of (0.1 %) 00:00: each [place] nasal spray 00 nostril 2 Med ical (two) Branch times daily. Use in each nostril as directed fluticasone 2-0 Yes [id number] 1{spray Use 1 [facility] propionate 1-22 } [place] in ity o f 50 00:00: each [place] mcg/actuati 00 nostril Medic al on nasal daily. Branch spray azelastine 2021-0 Yes [id number] 1{spray Use 1 [facility] 137 mcg 1-22 } [place] in ity of (0.1 %) 00:00: each [place] nasal spray 00 nostril 2 Med ical (two) Branch times daily. Use in each nostril as directed fluticasone 2021-0 Yes [id number] 1{spray Use 1 [facility] propionate 1-22 } [place] in ity o f 50 00:00: each [place] mcg/actuati 00 nostril Medic al on nasal daily. Branch spray azelastine 2021-0 Yes [id number] 1{spray Use 1 [facility] 137 mcg 1-22 } [place] in ity of (0.1 %) 00:00: each [place] nasal spray 00 nostril 2 Med ical (two) Branch times daily. Use in each nostril as directed fluticasone 2-0 Yes [id number] 1{spray Use 1 [facility] propionate 1-22 } [place] in ity o f 50 00:00: each [place] mcg/actuati 00 nostril Medic al on nasal daily. Branch spray azelastine 202-0 Yes [id number] 1{spray Use 1 [facility] 137 mcg 1-22 } [place] in ity of (0.1 %) 00:00: each [place] nasal spray 00 nostril 2 Med ical (two) Branch times daily. Use in each nostril as directed fluticasone 2-0 Yes [id number] 1{spray Use 1 [facility] propionate 1-22 } [place] in ity o f 50 00:00: each [place] mcg/actuati 00 nostril Medic al on nasal daily. Branch spray azelastine 2021-0 Yes [id number] 1{spray Use 1 [facility] 137 mcg 1-22 } [place] in ity of (0.1 %) 00:00: each [place] nasal spray 00 nostril 2 Med ical (two) Branch times daily. Use in each nostril as directed fluticasone 2021-0 Yes [id number] 1{spray Use 1 [facility] propionate 1-22 } [place] in ity o f 50 00:00: each [place] mcg/actuati 00 nostril Medic al on nasal daily. Branch spray azelastine 2021-0 Yes [id number] 1{spray Use 1 [facility] 137 mcg 1-22 } [place] in ity of (0.1 %) 00:00: each [place] nasal spray 00 nostril 2 Med ical (two) Branch times daily. Use in each nostril as directed fluticasone 2021-0 Yes [id number] 1{spray Use 1 [facility] propionate 1-22 } [place] in ity o f 50 00:00: each [place] mcg/actuati 00 nostril Medic al on nasal daily. Branch spray azelastine 2021-0 Yes [id number] 1{spray Use 1 [facility] 137 mcg 1-22 } [place] in ity of (0.1 %) 00:00: each [place] nasal spray 00 nostril 2 Med ical (two) Branch times daily. Use in each nostril as directed fluticasone 2021-0 Yes [id number] 1{spray Use 1 [facility] propionate 1-22 } [place] in ity o f 50 00:00: each [place] mcg/actuati 00 nostril Medic al on nasal daily. Branch spray azelastine 2021-0 Yes [id number] 1{spray Use 1 [facility] 137 mcg 1-22 } [place] in ity of (0.1 %) 00:00: each [place] nasal spray 00 nostril 2 Med ical (two) Branch times daily. Use in each nostril as directed fluticasone 2021-0 Yes [id number] 1{spray Use 1 [facility] propionate 1-22 } [place] in ity o f 50 00:00: each [place] mcg/actuati 00 nostril Medic al on nasal daily. Branch spray azelastine 2021-0 Yes [id number] 1{spray Use 1 [facility] 137 mcg 1-22 } [place] in ity of (0.1 %) 00:00: each [place] nasal spray 00 nostril 2 Med ical (two) Branch times daily. Use in each nostril as directed fluticasone 2021-0 Yes [id number] 1{spray Use 1 [facility] propionate 1-22 } [place] in ity o f 50 00:00: each [place] mcg/actuati 00 nostril Medic al on nasal daily. Branch spray azelastine 2021-0 Yes [id number] 1{spray Use 1 [facility] 137 mcg 1-22 } [place] in ity of (0.1 %) 00:00: each [place] nasal spray 00 nostril 2 Med ical (two) Branch times daily. Use in each nostril as directed fluticasone 2021-0 Yes [id number] 1{spray Use 1 [facility] propionate 1-22 } [place] in ity o f 50 00:00: each [place] mcg/actuati 00 nostril Medic al on nasal daily. Branch spray azelastine 2021-0 Yes [id number] 1{spray Use 1 [facility] 137 mcg 1-22 } [place] in ity of (0.1 %) 00:00: each [place] nasal spray 00 nostril 2 Med ical (two) Branch times daily. Use in each nostril as directed fluticasone 2021-0 Yes [id number] 1{spray Use 1 [facility] propionate 1-22 } [place] in ity o f 50 00:00: each [place] mcg/actuati 00 nostril Medic al on nasal daily. Branch spray azelastine 2021-0 Yes [id number] 1{spray Use 1 [facility] 137 mcg 1-22 } [place] in ity of (0.1 %) 00:00: each [place] nasal spray 00 nostril 2 Med ical (two) Branch times daily. Use in each nostril as directed fluticasone 2021-0 Yes [id number] 1{spray Use 1 [facility] propionate 1-22 } [place] in ity o f 50 00:00: each [place] mcg/actuati 00 nostril Medic al on nasal daily. Branch spray azelastine 2021-0 Yes [id number] 1{spray Use 1 [facility] 137 mcg 1-22 } [place] in ity of (0.1 %) 00:00: each [place] nasal spray 00 nostril 2 Med ical (two) Branch times daily. Use in each nostril as directed fluticasone 2021-0 Yes [id number] 1{spray Use 1 [facility] propionate 1-22 } [place] in ity o f 50 00:00: each [place] mcg/actuati 00 nostril Medic al on nasal daily. Branch spray azelastine 2021-0 Yes [id number] 1{spray Use 1 [facility] 137 mcg 1-22 } [place] in ity of (0.1 %) 00:00: each [place] nasal spray 00 nostril 2 Med ical (two) Branch times daily. Use in each nostril as directed fluticasone 2021-0 Yes [id number] 1{spray Use 1 [facility] propionate 1-22 } [place] in ity o f 50 00:00: each [place] mcg/actuati 00 nostril Medic al on nasal daily. Branch spray azelastine 2021-0 Yes [id number] 1{spray Use 1 [facility] 137 mcg 1-22 } [place] in ity of (0.1 %) 00:00: each [place] nasal spray 00 nostril 2 Med ical (two) Branch times daily. Use in each nostril as directed fluticasone 2021-0 Yes [id number] 1{spray Use 1 [facility] propionate 1-22 } [place] in ity o f 50 00:00: each [place] mcg/actuati 00 nostril Medic al on nasal daily. Branch spray azelastine 2021-0 Yes [id number] 1{spray Use 1 [facility] 137 mcg 1-22 } [place] in ity of (0.1 %) 00:00: each [place] nasal spray 00 nostril 2 Med ical (two) Branch times daily. Use in each nostril as directed fluticasone 2021-0 Yes [id number] 1{spray Use 1 [facility] propionate 1-22 } [place] in ity o f 50 00:00: each [place] mcg/actuati 00 nostril Medic al on nasal daily. Branch spray azelastine 2021-0 Yes [id number] 1{spray Use 1 [facility] 137 mcg 1-22 } [place] ity of (0.1 %) 00:00: each [place] nasal spray 00 nostril 2 Med ical (two) Branch times daily. Use in each nostril as directed fluticasone 2-0 Yes [id number] 1{spray Use 1 [facility] propionate 1-22 } [place] in ity o f 50 00:00: each [place] mcg/actuati 00 nostril Medic al on nasal daily. Branch spray azelastine 2022-0 Yes [id number] 1{spray Use 1 [facility] 137 mcg 1-22 } [place] [facility]y of (0.1 %) 00:00: each [place] nasal spray 00 nostril 2 Med ical (two) Branch times daily. Use in each nostril as directed fluticasone 2-0 Yes [id number] 1{spray Use 1 [facility] propionate 1-22 } [place] in ity o f 50 00:00: each [place] mcg/actuati 00 nostril Medic al on nasal daily. Branch spray azelastine 2021-0 Yes [id number] 1{spray Use 1 [facility] 137 mcg 1-22 } [place] in ity of (0.1 %) 00:00: each [place] nasal spray 00 nostril 2 Med ical (two) Branch times daily. Use in each nostril as directed fluticasone 2-0 Yes [id number] 1{spray Use 1 [facility] propionate 1-22 } [place] in ity o f 50 00:00: each [place] mcg/actuati 00 nostril Medic al on nasal daily. Branch spray azelastine 2021-0 Yes [id number] 1{spray Use 1 [facility] 137 mcg 1-22 } [place] ity of (0.1 %) 00:00: each [place] nasal spray 00 nostril 2 Med ical (two) Branch times daily. Use in each nostril as directed fluticasone 2-0 Yes [id number] 1{spray Use 1 [facility] propionate 1-22 } [place] in it[facility] o f 50 00:00: each [place] mcg/actuati 00 nostril Medic al on nasal daily. Branch spray azelastine 2022-0 Yes [id number] 1{spray Use 1 [facility] 137 mcg 1-22 } [place] [facility]y of (0.1 %) 00:00: each [place] nasal spray 00 nostril 2 Med ical (two) Branch times daily. Use in each nostril as directed fluticasone 2022-0 Yes [id number] 1{spray Use 1 [facility] propionate 1-22 } [place] in ity o f 50 00:00: each [place] mcg/actuati 00 nostril Medic al on nasal daily. Branch spray azelastine 2021-0 Yes [id number] 1{spray Use 1 [facility] 137 mcg 1-22 } [place] in ity of (0.1 %) 00:00: each [place] nasal spray 00 nostril 2 Med ical (two) Branch times daily. Use in each nostril as directed fluticasone 2021-0 Yes [id number] 1{spray Use 1 [facility] propionate 1-22 } [place] in ity o f 50 00:00: each [place] mcg/actuati 00 nostril Medic al on nasal daily. Branch spray azelastine 2021-0 Yes [id number] 1{spray Use 1 [facility] 137 mcg 1-22 } [place] [facility]y of (0.1 %) 00:00: each [place] nasal spray 00 nostril 2 Med ical (two) Branch times daily. Use in each nostril as directed fluticasone 2021-0 Yes [id number] 1{spray Use 1 [facility] propionate 1-22 } [place] in ity o f 50 00:00: each [place] mcg/actuati 00 nostril Medic al on nasal daily. Branch spray azelastine 2021-0 Yes [id number] 1{spray Use 1 [facility] 137 mcg 1-22 } [place] ity of (0.1 %) 00:00: each [place] nasal spray 00 nostril 2 Med ical (two) Branch times daily. Use in each nostril as directed fluticasone 2021-0 Yes [id number] 1{spray Use 1 [facility] propionate 1-22 } [place] in ity o f 50 00:00: each [place] mcg/actuati 00 nostril Medic al on nasal daily. Branch spray azelastine 2021-0 Yes [id number] 1{spray Use 1 [facility] 137 mcg 1-22 } [place] ity of (0.1 %) 00:00: each [place] nasal spray 00 nostril 2 Med ical (two) Branch times daily. Use in each nostril as directed fluticasone 2021-0 Yes [id number] 1{spray Use 1 [facility] propionate 1-22 } [place] in ity o f 50 00:00: each [place] mcg/actuati 00 nostril Medic al on nasal daily. Branch spray azelastine 2021-0 Yes [id number] 1{spray Use 1 [facility] 137 mcg 1-22 } [place] ity of (0.1 %) 00:00: each [place] nasal spray 00 nostril 2 Med ical (two) Branch times daily. Use in each nostril as directed fluticasone 2021-0 Yes [id number] 1{spray Use 1 [facility] propionate 1-22 } [place] in ity o f 50 00:00: each [place] mcg/actuati 00 nostril Medic al on nasal daily. Branch spray azelastine 2021-0 Yes [id number] 1{spray Use 1 [facility] 137 mcg 1-22 } [place] ity of (0.1 %) 00:00: each [place] nasal spray 00 nostril 2 Med ical (two) Branch times daily. Use in each nostril as directed fluticasone 2021-0 Yes [id number] 1{spray Use 1 [facility] propionate 1-22 } [place] in ity o f 50 00:00: each [place] mcg/actuati 00 nostril Medic al on nasal daily. Branch spray azelastine 2021-0 Yes [id number] 1{spray Use 1 [facility] 137 mcg 1-22 } [place] in ity of (0.1 %) 00:00: each [place] nasal spray 00 nostril 2 Med ical (two) Branch times daily. Use in each nostril as directed fluticasone 2021-0 Yes [id number] 1{spray Use 1 [facility] propionate 1-22 } [place] in ity o f 50 00:00: each [...] 7-24 TABLET BY ity of tablet 00:00: [facility] 00 EVERY DAY Medical Branch DIRECTED atorvastati 1-0 Yes TAKE 1 [facility] ers n 20 mg 7-24 TABLET BY ity of tablet 00:00: [facility] 00 EVERY DAY Medical Branch DIRECTED atorvastati 2021-0 Yes TAKE 1 [facility] ers n 20 mg 7-24 TABLET BY ity of tablet 00:00: [facility] 00 EVERY DAY Medical Branch DIRECTED atorvastati 1-0 Yes TAKE 1 [facility] ers n 20 mg 7-24 TABLET BY ity of tablet 00:00: [facility] 00 EVERY DAY Medical Branch DIRECTED atorvastati 1-0 Yes TAKE 1 [facility] ers n 20 mg 7-24 TABLET BY ity of tablet 00:00: [facility] 00 EVERY DAY Medical Branch DIRECTED atorvastati 2021-0 Yes TAKE 1 [facility] ers n 20 mg 7-24 TABLET BY ity of tablet 00:00: [facility] 00 EVERY DAY Medical Branch DIRECTED atorvastati 2021-0 Yes TAKE 1 [facility] ers n 20 mg 7-24 TABLET BY ity of tablet 00:00: [facility] 00 EVERY DAY Medical Branch DIRECTED atorvastati 2021-0 Yes TAKE 1 [facility] ers n 20 mg 7-24 TABLET BY ity of tablet 00:00: [facility] 00 EVERY DAY Medical Branch DIRECTED atorvastati 2021-0 Yes TAKE 1 [facility] ers n 20 mg 7-24 TABLET BY ity of tablet 00:00: [facility] 00 EVERY DAY Medical Branch DIRECTED [...] DAY Medical Branch DIRECTED albuterol 2020-0 Yes [id number] 2{puff} Inhale 2 [facility] 90 6-25 Puffs ity of mcg/actuati 00:00: every 6 [place] as on inhaler 00 (six) Medical hours as Branch needed for Wheezing or Shortness of Breath. albuterol 2020-0 Yes [id number] 2{puff} Inhale 2 [facility] 90 6-25 Puffs ity of mcg/actuati 00:00: every 6 [place] as on inhaler 00 (six) Medical hours as Branch needed for Wheezing or Shortness of Breath. albuterol 2020-0 Yes [id number] 2{puff} Inhale 2 [facility] 90 6-25 Puffs ity of mcg/actuati 00:00: every 6 [place] as on inhaler 00 (six) Medical hours as Branch needed for Wheezing or Shortness of Breath. albuterol Yes [id number] 2{puff} Inhale 2 [facility] 90 6-25 Puffs ity of mcg/actuati 00:00: every 6 [place] as on inhaler 00 (six) Medical hours as Branch needed for Wheezing or Shortness of Breath. albuterol Yes [id number] 2{puff} Inhale 2 [facility] 90 6-25 Puffs ity of mcg/actuati 00:00: every 6 [place] as on inhaler 00 (six) Medical hours as Branch needed for Wheezing or Shortness of Breath. albuterol Yes [id number] 2{puff} Inhale 2 [facility] 90 6-25 Puffs ity of mcg/actuati 00:00: every 6 [place] as on inhaler 00 (six) Medical hours as Branch needed for Wheezing or Shortness of Breath. albuterol Yes [id number] 2{puff} Inhale 2 [facility] 90 6-25 Puffs ity of mcg/actuati 00:00: every 6 [place] as on inhaler 00 (six) Medical hours as Branch needed for Wheezing or Shortness of Breath. albuterol Yes [id number] 2{puff} Inhale 2 [facility] 90 6-25 Puffs ity of mcg/actuati 00:00: every 6 [place] as on inhaler 00 (six) Medical hours as Branch needed for Wheezing or Shortness of Breath. albuterol Yes [id number] 2{puff} Inhale 2 [facility] 90 6-25 Puffs ity of mcg/actuati 00:00: every 6 [place] as on inhaler 00 (six) Medical hours as Branch needed for Wheezing or Shortness of Breath. albuterol Yes [id number] 2{puff} Inhale 2 [facility] 90 6-25 Puffs ity of mcg/actuati 00:00: every 6 [place] as on inhaler 00 (six) Medical hours as Branch needed for Wheezing or Shortness of Breath. albuterol Yes [id number] 2{puff} Inhale 2 [facility] 90 6-25 Puffs ity of mcg/actuati 00:00: every 6 [place] as on inhaler 00 (six) Medical hours as Branch needed for Wheezing or Shortness of Breath. albuterol Yes [id number] 2{puff} Inhale 2 [facility] 90 6-25 Puffs ity of mcg/actuati 00:00: every 6 [place] as on inhaler 00 (six) Medical hours as Branch needed for Wheezing or Shortness of Breath. albuterol Yes [id number] 2{puff} Inhale 2 [facility] 90 6-25 Puffs ity of mcg/actuati 00:00: every 6 [place] as on inhaler 00 (six) Medical hours as Branch needed for Wheezing or Shortness of Breath. albuterol Yes [id number] 2{puff} Inhale 2 [facility] 90 6-25 Puffs ity of mcg/actuati 00:00: every 6 [place] as on inhaler 00 (six) Medical hours as Branch needed for Wheezing or Shortness of Breath. albuterol Yes [id number] 2{puff} Inhale 2 [facility] 90 6-25 Puffs ity of mcg/actuati 00:00: every 6 [place] as on inhaler 00 (six) Medical hours as Branch needed for Wheezing or Shortness of Breath. albuterol Yes [id number] 2{puff} Inhale 2 [facility] 90 6-25 Puffs ity of mcg/actuati 00:00: every 6 [place] as on inhaler 00 (six) Medical hours as Branch needed for Wheezing or Shortness of Breath. albuterol Yes [id number] 2{puff} Inhale 2 [facility] 90 6-25 Puffs ity of mcg/actuati 00:00: every 6 [place] as on inhaler 00 (six) Medical hours as Branch needed for Wheezing or Shortness of Breath. albuterol Yes [id number] 2{puff} Inhale 2 [facility] 90 6-25 Puffs ity of mcg/actuati 00:00: every 6 [place] as on inhaler 00 (six) Medical hours as Branch needed for Wheezing or Shortness of Breath. albuterol Yes [id number] 2{puff} Inhale 2 [facility] 90 6-25 Puffs ity of mcg/actuati 00:00: every 6 [place] as on inhaler 00 (six) Medical hours as Branch needed for Wheezing or Shortness of Breath. albuterol Yes [id number] 2{puff} Inhale 2 [facility] 90 6-25 Puffs ity of mcg/actuati 00:00: every 6 [place] as on inhaler 00 (six) Medical hours as Branch needed for Wheezing or Shortness of Breath. albuterol Yes [id number] 2{puff} Inhale 2 [facility] 90 6-25 Puffs ity of mcg/actuati 00:00: every 6 [place] as on inhaler 00 (six) Medical hours as Branch needed for Wheezing or Shortness of Breath. albuterol Yes [id number] 2{puff} Inhale 2 [facility] 90 6-25 Puffs ity of mcg/actuati 00:00: every 6 [place] as on inhaler 00 (six) Medical hours as Branch needed for Wheezing or Shortness of Breath. albuterol Yes [id number] 2{puff} Inhale 2 [facility] 90 6-25 Puffs ity of mcg/actuati 00:00: every 6 [place] as on inhaler 00 (six) Medical hours as Branch needed for Wheezing or Shortness of Breath. albuterol Yes [id number] 2{puff} Inhale 2 [facility] 90 6-25 Puffs ity of mcg/actuati 00:00: every 6 [place] as on inhaler 00 (six) Medical hours as Branch needed for Wheezing or Shortness of Breath. albuterol Yes [id number] 2{puff} Inhale 2 [facility] 90 6-25 Puffs ity of mcg/actuati 00:00: every 6 [place] as on inhaler 00 (six) Medical hours as Branch needed for Wheezing or Shortness of Breath. albuterol Yes [id number] 2{puff} Inhale 2 [facility] 90 6-25 Puffs ity of mcg/actuati 00:00: every 6 [place] as on inhaler 00 (six) Medical hours as Branch needed for Wheezing or Shortness of Breath. albuterol Yes [id number] 2{puff} Inhale 2 [facility] 90 6-25 Puffs ity of mcg/actuati 00:00: every 6 [place] as on inhaler 00 (six) Medical hours as Branch needed for Wheezing or Shortness of Breath. albuterol Yes [id number] 2{puff} Inhale 2 [facility] 90 6-25 Puffs ity of mcg/actuati 00:00: every 6 [place] as on inhaler 00 (six) Medical hours as Branch needed for Wheezing or Shortness of Breath. albuterol Yes [id number] 2{puff} Inhale 2 [facility] 90 6-25 Puffs ity of mcg/actuati 00:00: every 6 [place] as on inhaler 00 (six) Medical hours as Branch needed for Wheezing or Shortness of Breath. albuterol Yes [id number] 2{puff} Inhale 2 [facility] 90 6-25 Puffs ity of mcg/actuati 00:00: every 6 [place] as on inhaler 00 (six) Medical hours as Branch needed for Wheezing or Shortness of Breath. albuterol Yes [id number] 2{puff} Inhale 2 [facility] 90 6-25 Puffs ity of mcg/actuati 00:00: every 6 [place] as on inhaler 00 (six) Medical hours as Branch needed for Wheezing or Shortness of Breath. albuterol Yes [id number] 2{puff} Inhale 2 [facility] 90 6-25 Puffs ity of mcg/actuati 00:00: every 6 [place] as on inhaler 00 (six) Medical hours as Branch needed for Wheezing or Shortness of Breath. albuterol Yes [id number] 2{puff} Inhale 2 [facility] 90 6-25 Puffs ity of mcg/actuati 00:00: every 6 [place] as on inhaler 00 (six) Medical hours as Branch needed for Wheezing or Shortness of Breath. albuterol Yes [id number] 2{puff} Inhale 2 [facility] 90 6-25 Puffs ity of mcg/actuati 00:00: every 6 [place] as on inhaler 00 (six) Medical hours as Branch needed for Wheezing or Shortness of Breath. albuterol Yes [id number] 2{puff} Inhale 2 [facility] 90 6-25 Puffs ity of mcg/actuati 00:00: every 6 [place] as on inhaler 00 (six) Medical hours as Branch needed for Wheezing or Shortness of Breath. albuterol Yes [id number] 2{puff} Inhale 2 [facility] 90 6-25 Puffs ity of mcg/actuati 00:00: every 6 [place] as on inhaler 00 (six) Medical hours as Branch needed for Wheezing or Shortness of Breath. albuterol Yes [id number] 2{puff} Inhale 2 [facility] 90 6-25 Puffs ity of mcg/actuati 00:00: every 6 [place] as on inhaler 00 (six) Medical hours as Branch needed for Wheezing or Shortness of Breath. albuterol Yes [id number] 2{puff} Inhale 2 [facility] 90 6-25 Puffs ity of mcg/actuati 00:00: every 6 [place] as on inhaler 00 (six) Medical hours as Branch needed for Wheezing or Shortness of Breath. albuterol Yes [id number] 2{puff} Inhale 2 [facility] 90 6-25 Puffs ity of mcg/actuati 00:00: every 6 [place] as on inhaler 00 (six) Medical hours as Branch needed for Wheezing or Shortness of Breath. albuterol Yes [id number] 2{puff} Inhale 2 [facility] 90 6-25 Puffs ity of mcg/actuati 00:00: every 6 [place] as on inhaler 00 (six) Medical hours as Branch needed for Wheezing or Shortness of Breath. albuterol Yes [id number] 2{puff} Inhale 2 [facility] 90 6-25 Puffs ity of mcg/actuati 00:00: every 6 [place] as on inhaler 00 (six) Medical hours as Branch needed for Wheezing or Shortness of Breath. albuterol Yes [id number] 2{puff} Inhale 2 [facility] 90 6-25 Puffs ity of mcg/actuati 00:00: every 6 [place] as on inhaler 00 (six) Medical hours as Branch needed for Wheezing or Shortness of Breath. albuterol Yes [id number] 2{puff} Inhale 2 [facility] 90 6-25 Puffs ity of mcg/actuati 00:00: every 6 [place] as on inhaler 00 (six) Medical hours as Branch needed for Wheezing or Shortness of Breath. albuterol Yes [id number] 2{puff} Inhale 2 [facility] 90 6-25 Puffs ity of mcg/actuati 00:00: every 6 [place] as on inhaler 00 (six) Medical hours as Branch needed for Wheezing or Shortness of Breath. albuterol Yes [id number] 2{puff} Inhale 2 [facility] 90 6-25 Puffs ity of mcg/actuati 00:00: every 6 [place] as on inhaler 00 (six) Medical hours as Branch needed for Wheezing or Shortness of Breath. cyclobenzap Yes TAKE 1 [facility] ers rine 10 mg 5-06 TABLET BY ity of tablet 00:00: MOUTH AT [address] Medical DO NOT Branch DRIVE WITH MUSCLE RELAXER cyclobenzap 2020-0 Yes TAKE 1 [facility] ers rine 10 mg 5-06 TABLET BY ity of tablet 00:00: MOUTH AT [address] Medical DO NOT Branch DRIVE WITH MUSCLE RELAXER cyclobenzap 2020-0 Yes TAKE 1 [facility] ers rine 10 mg 5-06 TABLET BY ity of tablet 00:00: MOUTH AT [address] Medical DO NOT Branch DRIVE WITH MUSCLE RELAXER cyclobenzap 2020-0 Yes TAKE 1 [facility] ers rine 10 mg 5-06 TABLET BY ity of tablet 00:00: MOUTH AT [address] Medical DO NOT Branch DRIVE WITH MUSCLE RELAXER cyclobenzap 2020-0 Yes TAKE 1 [facility] ers rine 10 mg 5-06 TABLET BY ity of tablet 00:00: MOUTH AT [address] Medical DO NOT Branch DRIVE WITH MUSCLE RELAXER cyclobenzap 2020-0 Yes TAKE 1 [facility] ers rine 10 mg 5-06 TABLET BY ity of tablet 00:00: MOUTH AT [address] Medical DO NOT Branch DRIVE WITH MUSCLE RELAXER cyclobenzap 2020-0 Yes TAKE 1 [facility] ers rine 10 mg 5-06 TABLET BY ity of tablet 00:00: MOUTH AT [address] Medical DO NOT Branch DRIVE WITH [...] for Muscle Branch Spasms. ondansetron 1-0 Yes [id number] 4mg Take 1 [facility] 4 mg 1-23 tablet by ity of disintegrat 00:00: mouth [place] ing tablet 00 every 8 Medica l (eight) Branch hours as needed for Nausea and Vomiting (N/V). ondansetron 1-0 Yes [id number] 4mg Take 1 [facility] 4 mg 1-23 tablet by ity of disintegrat 00:00: mouth [place] ing tablet 00 every 8 Medica l (eight) Branch hours as needed for Nausea and Vomiting (N/V). ondansetron 1-0 Yes [id number] 4mg Take 1 [facility] 4 mg 1-23 tablet by ity of disintegrat 00:00: mouth [place] ing tablet 00 every 8 Medica l (eight) Branch hours as needed for Nausea and Vomiting (N/V). ondansetron 2021-0 Yes [id number] 4mg Take 1 [facility] 4 mg 1-23 tablet by ity of disintegrat 00:00: mouth [place] ing tablet 00 every 8 Medica l (eight) Branch hours as needed for Nausea and Vomiting (N/V). ondansetron 2021-0 Yes [id number] 4mg Take 1 [facility] 4 mg 1-23 tablet by ity of disintegrat 00:00: mouth [place] ing tablet 00 every 8 Medica l (eight) Branch hours as needed for Nausea and Vomiting (N/V). ondansetron 2020-0 Yes [id number] 4mg Take 1 [facility] 4 mg 1-23 tablet by ity of disintegrat 00:00: mouth [place] ing tablet 00 every 8 Medica l (eight) Branch hours as needed for Nausea and Vomiting (N/V). ondansetron 2020-0 Yes [id number] 4mg Take 1 [facility] 4 mg 1-23 tablet by ity of disintegrat 00:00: mouth [place] ing tablet 00 every 8 Medica l (eight) Branch hours as needed for Nausea and Vomiting (N/V). ondansetron 2020-0 Yes [id number] 4mg Take 1 [facility] 4 mg 1-23 tablet by ity of disintegrat 00:00: mouth [place] ing tablet 00 every 8 Medica l (eight) Branch hours as needed for Nausea and Vomiting (N/V). ondansetron 2020-0 Yes [id number] 4mg Take 1 [facility] 4 mg 1-23 tablet by ity of disintegrat 00:00: mouth [place] ing tablet 00 every 8 Medica l (eight) Branch hours as needed for Nausea and Vomiting (N/V). ondansetron 2020-0 Yes [id number] 4mg Take 1 [facility] 4 mg 1-23 tablet by ity of disintegrat 00:00: mouth [place] ing tablet 00 every 8 Medica l (eight) Branch hours as needed for Nausea and Vomiting (N/V). ondansetron 2020-0 Yes [id number] 4mg Take 1 [facility] 4 mg 1-23 tablet by ity of disintegrat 00:00: mouth [place] ing tablet 00 every 8 Medica l (eight) Branch hours as needed for Nausea and Vomiting (N/V). ondansetron 2020-0 Yes [id number] 4mg Take 1 [facility] 4 mg 1-23 tablet by ity of disintegrat 00:00: mouth [place] ing tablet 00 every 8 Medica l (eight) Branch hours as needed for Nausea and Vomiting (N/V). ondansetron 2020-0 Yes [id number] 4mg Take 1 [facility] 4 mg 1-23 tablet by ity of disintegrat 00:00: mouth [place] ing tablet 00 every 8 Medica l (eight) Branch hours as needed for Nausea and Vomiting (N/V). ondansetron 2020-0 Yes [id number] 4mg Take 1 [facility] 4 mg 1-23 tablet by ity of disintegrat 00:00: mouth [place] ing tablet 00 every 8 Medica l (eight) Branch hours as needed for Nausea and Vomiting (N/V). ondansetron 2020-0 Yes [id number] 4mg Take 1 [facility] 4 mg 1-23 tablet by ity of disintegrat 00:00: mouth [place] ing tablet 00 every 8 Medica l (eight) Branch hours as needed for Nausea and Vomiting (N/V). ondansetron 2020-0 Yes [id number] 4mg Take 1 [facility] 4 mg 1-23 tablet by ity of disintegrat 00:00: mouth [place] ing tablet 00 every 8 Medica l (eight) Branch hours as needed for Nausea and Vomiting (N/V). ondansetron 2020-0 Yes [id number] 4mg Take 1 [facility] 4 mg 1-23 tablet by ity of disintegrat 00:00: mouth [place] ing tablet 00 every 8 Medica l (eight) Branch hours as needed for Nausea and Vomiting (N/V). ondansetron 2020-0 Yes [id number] 4mg Take 1 [facility] 4 mg 1-23 tablet by ity of disintegrat 00:00: mouth [place] ing tablet 00 every 8 Medica l (eight) Branch hours as needed for Nausea and Vomiting (N/V). ondansetron 2020-0 Yes [id number] 4mg Take 1 [facility] 4 mg 1-23 tablet by ity of disintegrat 00:00: mouth [place] ing tablet 00 every 8 Medica l (eight) Branch hours as needed for Nausea and Vomiting (N/V). ondansetron 2020-0 Yes [id number] 4mg Take 1 Univers 4 mg 1-23 tablet by ity of disintegrat 00:00: mouth [place] ing tablet 00 every 8 Medica l (eight) Branch hours as needed for Nausea and Vomiting (N/V). ondansetron 2020-0 Yes [id number] 4mg Take 1 Univers 4 mg 1-23 tablet by ity of disintegrat 00:00: mouth [place] ing tablet 00 every 8 Medica l (eight) Branch hours as needed for Nausea and Vomiting (N/V). ondansetron 2020-0 Yes [id number] 4mg Take 1 Univers 4 mg 1-23 tablet by ity of disintegrat 00:00: mouth [place] ing tablet 00 every 8 Medica l (eight) Branch hours as needed for Nausea and Vomiting (N/V). ondansetron 0 Yes [id number] 4mg Take 1 Univers 4 mg 1-23 tablet by ity of disintegrat 00:00: mouth [place] ing tablet 00 every 8 Medica l (eight) Branch hours as needed for Nausea and Vomiting (N/V). ondansetron 0 Yes [id number] 4mg Take 1 Univers 4 mg 1-23 tablet by ity of disintegrat 00:00: mouth [place] ing tablet 00 every 8 Medica l (eight) Branch hours as needed for Nausea and Vomiting (N/V). ondansetron 0 Yes [id number] 4mg Take 1 Univers 4 mg 1-23 tablet by ity of disintegrat 00:00: mouth [place] ing tablet 00 every 8 Medica l (eight) Branch hours as needed for Nausea and Vomiting (N/V). ondansetron 0 Yes [id number] 4mg Take 1 Univers 4 mg 1-23 tablet by ity of disintegrat 00:00: mouth [place] ing tablet 00 every 8 Medica l (eight) Branch hours as needed for Nausea and Vomiting (N/V). ondansetron 0 Yes [id number] 4mg Take 1 Univers 4 mg 1-23 tablet by ity of disintegrat 00:00: mouth [place] ing tablet 00 every 8 Medica l (eight) Branch hours as needed for Nausea and Vomiting (N/V). ondansetron 0 Yes [id number] 4mg Take 1 Univers 4 mg 1-23 tablet by ity of disintegrat 00:00: mouth [place] ing tablet 00 every 8 Medica l (eight) Branch hours as needed for Nausea and Vomiting (N/V). ondansetron 2020-0 Yes [id number] 4mg Take 1 Univers 4 mg 1-23 tablet by ity of disintegrat 00:00: mouth [place] ing tablet 00 every 8 Medica l (eight) Branch hours as needed for Nausea and Vomiting (N/V). ondansetron 2020-0 Yes [id number] 4mg Take 1 Univers 4 mg 1-23 tablet by ity of disintegrat 00:00: mouth [place] ing tablet 00 every 8 Medica l (eight) Branch hours as needed for Nausea and Vomiting (N/V). ondansetron 2020-0 Yes [id number] 4mg Take 1 Univers 4 mg 1-23 tablet by ity of disintegrat 00:00: mouth [place] ing tablet 00 every 8 Medica l (eight) Branch hours as needed for Nausea and Vomiting (N/V). ondansetron 2020-0 Yes [id number] 4mg Take 1 Univers 4 mg 1-23 tablet by ity of disintegrat 00:00: mouth [place] ing tablet 00 every 8 Medica l (eight) Branch hours as needed for Nausea and Vomiting (N/V). ondansetron 2020-0 Yes [id number] 4mg Take 1 Univers 4 mg 1-23 tablet by ity of disintegrat 00:00: mouth [place] ing tablet 00 every 8 Medica l (eight) Branch hours as needed for Nausea and Vomiting (N/V). ondansetron 2020-0 Yes [id number] 4mg Take 1 Univers 4 mg 1-23 tablet by ity of disintegrat 00:00: mouth [place] ing tablet 00 every 8 Medica l (eight) Branch hours as needed for Nausea and Vomiting (N/V). ondansetron 2020-0 Yes [id number] 4mg Take 1 Univers 4 mg 1-23 tablet by ity of disintegrat 00:00: mouth [place] ing tablet 00 every 8 Medica l (eight) Branch hours as needed for Nausea and Vomiting (N/V). ondansetron 2020-0 Yes [id number] 4mg Take 1 Univers 4 mg 1-23 tablet by ity of disintegrat 00:00: mouth [place] ing tablet 00 every 8 Medica l (eight) Branch hours as needed for Nausea and Vomiting (N/V). ondansetron 2020-0 Yes [id number] 4mg Take 1 Univers 4 mg 1-23 tablet by ity of disintegrat 00:00: mouth [place] ing tablet 00 every 8 Medica l (eight) Branch hours as needed for Nausea and Vomiting (N/V). ondansetron 2020-0 Yes [id number] 4mg Take 1 Univers 4 mg 1-23 tablet by ity of disintegrat 00:00: mouth [place] ing tablet 00 every 8 Medica l (eight) Branch hours as needed for Nausea and Vomiting (N/V). ondansetron 2020-0 Yes [id number] 4mg Take 1 [facility] 4 mg 1-23 tablet by ity of disintegrat 00:00: mouth [place] ing tablet 00 every 8 Medica l (eight) Branch hours as needed for Nausea and Vomiting (N/V). ondansetron 2020-0 Yes [id number] 4mg Take 1 Univers 4 mg 1-23 tablet by ity of disintegrat 00:00: mouth [place] ing tablet 00 every 8 Medica l (eight) Branch hours as needed for Nausea and Vomiting (N/V). ondansetron 2020-0 Yes [id number] 4mg Take 1 Univers 4 mg 1-23 tablet by ity of disintegrat 00:00: mouth [place] ing tablet 00 every 8 Medica l (eight) Branch hours as needed for Nausea and Vomiting (N/V). ondansetron 2020-0 Yes [id number] 4mg Take 1 Univers 4 mg 1-23 tablet by ity of disintegrat 00:00: mouth [place] ing tablet 00 every 8 Medica l (eight) Branch hours as needed for Nausea and Vomiting (N/V). ondansetron 0 Yes [id number] 4mg Take 1 Univers 4 mg 1-23 tablet by ity of disintegrat 00:00: mouth [place] ing tablet 00 every 8 Medica l (eight) Branch hours as needed for Nausea and Vomiting (N/V). ondansetron 0 Yes [id number] 4mg Take 1 [facility] 4 mg 1-23 tablet by ity of disintegrat 00:00: mouth [place] ing tablet 00 every 8 Medica l (eight) Branch hours as needed for Nausea and Vomiting (N/V). ondansetron 0 Yes [id number] 4mg Take 1 Univers 4 mg 1-23 [...] mg by ity of tablet 00:00: mouth. [facility] acetaminoph 2019- Yes 500mg Take 500 U nivers en 500 mg 2-28 mg by ity of tablet 00:00: mouth. [facility] acetaminoph 2019-09 Yes 500mg Take 500 U nivers en 500 mg 2-28 mg by ity of tablet 00:00: mouth. [facility] acetaminoph 2019-09 Yes 500mg Take 500 U nivers en 500 mg 2-28 mg by ity of tablet 00:00: mouth. [facility] acetaminoph 2019-09- No 500mg Take 500 Univers en 500 mg 2-28 10-22 mg by ity of tablet 00:00: 00:00 mouth. [place] 00 :00 Medical Branch traZODone 2019- Yes TAKE ONE Univ ers 100 mg 1-12 (1) ity of tablet 00:00: TABLET(S) [facility] [place] [facility] traZODone 2019-09 Yes TAKE ONE Univ ers 100 mg 1-12 (1) ity of tablet 00:00: TABLET(S) BY [facility] [place] [facility] traZODone 2019- Yes TAKE ONE Univ ers 100 mg 1-12 (1) ity of tablet 00:00: TABLET(S) BY [facility] [place] [facility] traZODone 2019- Yes TAKE ONE Univ ers 100 mg 1-12 (1) ity of tablet 00:00: [facility] [place] [facility] traZODone 2019- Yes TAKE ONE Univ ers 100 mg 1-12 (1) ity of tablet 00:00: TABLE[facility]TH [facility] [place] [facility] traZODone 2019- Yes TAKE ONE Univ ers 100 mg 1-12 (1) ity of tablet 00:00: TABLET(S[facility] BY [facility]OU[facility] [place] [facility] traZODone 2020-1 Yes TAKE ONE Univ [...] EVERY FOUR Branch HOURS. proMETHazin 2020-0 Yes [id number] 25mg Take 1 Univers e 25 mg 6-23 tablet by ity of tablet 00:00: mouth [place] 00 every 6 Medical (six) Branch hours as needed for Nausea and Vomiting (N/V). proMETHazin 2020-0 Yes [id number] 25mg Take 1 Univers e 25 mg 6-23 tablet by ity of tablet 00:00: mouth [place] 00 every 6 Medical (six) Branch hours as needed for Nausea and Vomiting (N/V). proMETHazin 2020-0 Yes [id number] 25mg Take 1 Univers e 25 mg 6-23 tablet by ity of tablet 00:00: mouth [place] 00 every 6 Medical (six) Branch hours as needed for Nausea and Vomiting (N/V). proMETHazin 2020-0 Yes [id number] 25mg Take 1 Univers e 25 mg 6-23 tablet by ity of tablet 00:00: mouth [place] 00 every 6 Medical (six) Branch hours as needed for Nausea and Vomiting (N/V). proMETHazin 2020-0 Yes [id number] 25mg Take 1 Univers e 25 mg 6-23 tablet by ity of tablet 00:00: mouth [place] 00 every 6 Medical (six) Branch hours as needed for Nausea and Vomiting (N/V). proMETHazin 2020-0 Yes [id number] 25mg Take 1 Univers e 25 mg 6-23 tablet by ity of tablet 00:00: mouth [place] 00 every 6 Medical (six) Branch hours as needed for Nausea and Vomiting (N/V). proMETHazin 2020-0 Yes [id number] 25mg Take 1 Univers e 25 mg 6-23 tablet by ity of tablet 00:00: mouth [place] 00 every 6 Medical (six) Branch hours as needed for Nausea and Vomiting (N/V). proMETHazin 2020-0 Yes [id number] 25mg Take 1 Univers e 25 mg 6-23 tablet by ity of tablet 00:00: mouth [place] 00 every 6 Medical (six) Branch hours as needed for Nausea and Vomiting (N/V). proMETHazin 2020-0 Yes [id number] 25mg Take 1 Univers e 25 mg 6-23 tablet by ity of tablet 00:00: mouth [place] 00 every 6 Medical (six) Branch hours as needed for Nausea and Vomiting (N/V). proMETHazin 2020-0 Yes [id number] 25mg Take 1 Univers e 25 mg 6-23 tablet by ity of tablet 00:00: mouth [place] 00 every 6 Medical (six) Branch hours as needed for Nausea and Vomiting (N/V). proMETHazin 2020-0 Yes [id number] 25mg Take 1 Univers e 25 mg 6-23 tablet by ity of tablet 00:00: mouth [place] 00 every 6 Medical (six) Branch hours as needed for Nausea and Vomiting (N/V). proMETHazin 2020-0 Yes [id number] 25mg Take 1 Univers e 25 mg 6-23 tablet by ity of tablet 00:00: mouth [place] 00 every 6 Medical (six) Branch hours as needed for Nausea and Vomiting (N/V). proMETHazin 2020-0 Yes [id number] 25mg Take 1 Univers e 25 mg 6-23 tablet by ity of tablet 00:00: mouth [place] 00 every 6 Medical (six) Branch hours as needed for Nausea and Vomiting (N/V). proMETHazin 2020-0 Yes [id number] 25mg Take 1 Univers e 25 mg 6-23 tablet by ity of tablet 00:00: mouth [place] 00 every 6 Medical (six) Branch hours as needed for Nausea and Vomiting (N/V). proMETHazin 2020-0 Yes [id number] 25mg Take 1 Univers e 25 mg 6-23 tablet by ity of tablet 00:00: mouth [place] 00 every 6 Medical (six) Branch hours as needed for Nausea and Vomiting (N/V). proMETHazin 2020-0 Yes [id number] 25mg Take 1 Univers e 25 mg 6-23 tablet by ity of tablet 00:00: mouth [place] 00 every 6 Medical (six) Branch hours as needed for Nausea and Vomiting (N/V). proMETHazin 2020-0 Yes [id number] 25mg Take 1 Univers e 25 mg 6-23 tablet by ity of tablet 00:00: mouth [place] 00 every 6 Medical (six) Branch hours as needed for Nausea and Vomiting (N/V). proMETHazin 2020-0 Yes [id number] 25mg Take 1 Univers e 25 mg 6-23 tablet by ity of tablet 00:00: mouth [place] 00 every 6 Medical (six) Branch hours as needed for Nausea and Vomiting (N/V). proMETHazin 2020-0 Yes [id number] 25mg Take 1 Univers e 25 mg 6-23 tablet by ity of tablet 00:00: mouth [place] 00 every 6 Medical (six) Branch hours as needed for Nausea and Vomiting (N/V). proMETHazin 2020-0 Yes [id number] 25mg Take 1 Univers e 25 mg 6-23 tablet by ity of tablet 00:00: mouth [place] 00 every 6 Medical (six) Branch hours as needed for Nausea and Vomiting (N/V). proMETHazin 2020-0 Yes [id number] 25mg Take 1 Univers e 25 mg 6-23 tablet by ity of tablet 00:00: mouth [place] 00 every 6 Medical (six) Branch hours as needed for Nausea and Vomiting (N/V). proMETHazin 2020-0 Yes [id number] 25mg Take 1 Univers e 25 mg 6-23 tablet by ity of tablet 00:00: mouth [place] 00 every 6 Medical (six) Branch hours as needed for Nausea and Vomiting (N/V). proMETHazin 2020-0 Yes [id number] 25mg Take 1 Univers e 25 mg 6-23 tablet by ity of tablet 00:00: mouth [place] 00 every 6 Medical (six) Branch hours as needed for Nausea and Vomiting (N/V). proMETHazin 2020-0 Yes [id number] 25mg Take 1 Univers e 25 mg 6-23 tablet by ity of tablet 00:00: mouth [place] 00 every 6 Medical (six) Branch hours as needed for Nausea and Vomiting (N/V). proMETHazin 2020-0 Yes [id number] 25mg Take 1 Univers e 25 mg 6-23 tablet by ity of tablet 00:00: mouth [place] 00 every 6 Medical (six) Branch hours as needed for Nausea and Vomiting (N/V). proMETHazin 2020-0 Yes [id number] 25mg Take 1 Univers e 25 mg 6-23 tablet by ity of tablet 00:00: mouth [place] 00 every 6 Medical (six) Branch hours as needed for Nausea and Vomiting (N/V). proMETHazin 2020-0 Yes [id number] 25mg Take 1 Univers e 25 mg 6-23 tablet by ity of tablet 00:00: mouth [place] 00 every 6 Medical (six) Branch hours as needed for Nausea and Vomiting (N/V). proMETHazin 2020-0 Yes [id number] 25mg Take 1 Univers e 25 mg 6-23 tablet by ity of tablet 00:00: mouth [place] 00 every 6 Medical (six) Branch hours as needed for Nausea and Vomiting (N/V). proMETHazin 2020-0 Yes [id number] 25mg Take 1 Univers e 25 mg 6-23 tablet by ity of tablet 00:00: mouth [place] 00 every 6 Medical (six) Branch hours as needed for Nausea and Vomiting (N/V). proMETHazin 2020-0 Yes [id number] 25mg Take 1 Univers e 25 mg 6-23 tablet by ity of tablet 00:00: mouth [place] 00 every 6 Medical (six) Branch hours as needed for Nausea and Vomiting (N/V). proMETHazin 2020-0 Yes [id number] 25mg Take 1 Univers e 25 mg 6-23 tablet by ity of tablet 00:00: mouth [place] 00 every 6 Medical (six) Branch hours as needed for Nausea and Vomiting (N/V). proMETHazin 2020-0 Yes [id number] 25mg Take 1 Univers e 25 mg 6-23 tablet by ity of tablet 00:00: mouth [place] 00 every 6 Medical (six) Branch hours as needed for Nausea and Vomiting (N/V). proMETHazin 2020-0 Yes [id number] 25mg Take 1 Univers e 25 mg 6-23 tablet by ity of tablet 00:00: mouth [place] 00 every 6 Medical (six) Branch hours as needed for Nausea and Vomiting (N/V). proMETHazin 2020-0 Yes [id number] 25mg Take 1 Univers e 25 mg 6-23 tablet by ity of tablet 00:00: mouth [place] 00 every 6 Medical (six) Branch hours as needed for Nausea and Vomiting (N/V). proMETHazin 2020-0 Yes [id number] 25mg Take 1 Univers e 25 mg 6-23 tablet by ity of tablet 00:00: mouth [place] 00 every 6 Medical (six) Branch hours as needed for Nausea and Vomiting (N/V). proMETHazin 2020-0 Yes [id number] 25mg Take 1 Univers e 25 mg 6-23 tablet by ity of tablet 00:00: mouth [place] 00 every 6 Medical (six) Branch hours as needed for Nausea and Vomiting (N/V). proMETHazin 2020-0 Yes [id number] 25mg Take 1 Univers e 25 mg 6-23 tablet by ity of tablet 00:00: mouth [place] 00 every 6 Medical (six) Branch hours as needed for Nausea and Vomiting (N/V). proMETHazin 2020-0 Yes [id number] 25mg Take 1 Univers e 25 mg 6-23 tablet by ity of tablet 00:00: mouth [place] 00 every 6 Medical (six) Branch hours as needed for Nausea and Vomiting (N/V). proMETHazin 2020-0 Yes [id number] 25mg Take 1 Univers e 25 mg 6-23 tablet by ity of tablet 00:00: mouth [place] 00 every 6 Medical (six) Branch hours as needed for Nausea and Vomiting (N/V). proMETHazin 2020-0 Yes [id number] 25mg Take 1 Univers e 25 mg 6-23 tablet by ity of tablet 00:00: mouth [place] 00 every 6 Medical (six) Branch hours as needed for Nausea and Vomiting (N/V). proMETHazin 2020-0 Yes [id number] 25mg Take 1 Univers e 25 mg 6-23 tablet by ity of tablet 00:00: mouth [place] 00 every 6 Medical (six) Branch hours as needed for Nausea and Vomiting (N/V). proMETHazin 2020-0 Yes [id number] 25mg Take 1 Univers e 25 mg 6-23 tablet by ity of tablet 00:00: mouth [place] 00 every 6 Medical (six) Branch hours as needed for Nausea and Vomiting (N/V). proMETHazin 2020-0 Yes [id number] 25mg Take 1 Univers e 25 mg 6-23 tablet by ity of tablet 00:00: mouth [place] 00 every 6 Medical (six) Branch hours as needed for Nausea and Vomiting (N/V). proMETHazin 2020-0 Yes [id number] 25mg Take 1 Univers e 25 mg 6-23 tablet by ity of tablet 00:00: mouth [place] 00 every 6 Medical (six) Branch hours as needed for Nausea and Vomiting (N/V). proMETHazin 2020-0 Yes [id number] 25mg Take 1 Univers e 25 mg [...] Medi abhishek USLY EVERY Branch 8 WEEKS. [facility] Unive [...] Medi abhishek USLY EVERY Branch 8 W[facility]KS. [facility] INJECT Unive rs mg/0.5 mL 1-26 45MG (1 ity of SC 00:00: SYRINGE) [place] injection 00 SUBCUTANEO Medi abhishek USLY EVERY Branch 8 WEEKS. TERRI 2018-09 Yes INJECT Unive rs mg/0.5 mL 1-26 45MG (1 ity of SC 00:00: SYRINGE) [place] injection 00 SUBCUTANEO Medi abhishek USLY EVERY Branch 8 WEEKS. [facility] INJECT Unive rs mg/0.5 mL 1-26 45MG (1 ity of SC 00:00: SYRINGE) [place] injection 00 SUBCUTANEO Medi abhishek USLY EVERY Branch 8 WEEKS. [facility] INJECT Unive rs mg/0.5 mL 1-26 45MG (1 ity of SC 00:00: SYRINGE) [place] injection 00 SUBCUTANEO Medi abhishek USLY EVERY Branch 8 WEEKS. [facility] INJECT Unive rs mg/0.5 mL 1-26 45MG (1 ity of SC 00:00: SYRINGE) [place] injection 00 SUBCUTANEO Medi abhishek USLY EVERY Branch 8 WEEKS. [facility] INJECT Unive rs mg/0.5 mL 1-26 45MG (1 ity of SC 00:00: SYRINGE) [place] injection 00 SUBCUTANEO Medi abhishek USLY EVERY Branch 8 WEEKS. [facility] INJECT Unive rs [...] Immunizations Ordered Filled Immunization Date Status Comments [facility] e Immunization Name Name Influenza Virus 2020-06-23 [...] 2019-08-06 Completed Universit y of Vaccine 00:00:00 [facility] Influenza Virus 2019-08-06 Completed Universit y of Vaccine 00:00:00 [facility] Influenza Virus 2019-08-06 Completed Universit y of Vaccine 00:00:00 [facility] Influenza Virus 2019-08-06 Completed Universit y of Vaccine 00:00:00 [facility] Influenza Virus 2019-08-06 Completed Universit y of Vaccine 00:00:00 [facility] Influenza Virus 2019-08-06 Completed Universit y of Vaccine 00:00:00 [facility] Influenza Virus 2019-08-06 Completed Universit y of Vaccine 00:00:00 [facility] Influenza Virus 2019-08-06 Completed Universit y of Vaccine 00:00:00 [facility] Influenza Virus 2019-08-06 Completed Universit y of Vaccine 00:00:00 [facility] Influenza Virus 2019-08-06 Completed Universit y of Vaccine 00:00:00 [facility] Influenza Virus 2019-08-06 Completed Universit y of Vaccine 00:00:00 [facility] Influenza Virus 2019-08-06 Completed Universit y of Vaccine 00:00:00 [facility] Influenza Virus 2019-08-06 Completed Universit y of Vaccine 00:00:00 [facility] Influenza Virus 2019-08-06 Completed Universit y of Vaccine 00:00:00 [facility] Influenza Virus 2019-08-06 Completed Universit y of Vaccine 00:00:00 [facility] Influenza Virus 2019-08-06 Completed Universit y of Vaccine 00:00:00 [facility] Influenza Virus 2019-08-06 Completed Universit y of Vaccine 00:00:00 [facility] Influenza Virus 2019-08-06 Completed Universit y of Vaccine 00:00:00 [facility] Influenza Virus 2019-08-06 Completed Universit y of Vaccine 00:00:00 [facility] Influenza Virus 2019-08-06 Completed Universit y of Vaccine 00:00:00 [facility] Influenza Virus 2019-08-06 Completed Universit y of Vaccine 00:00:00 [facility] Influenza Virus 2019-08-06 Completed Universit y of Vaccine 00:00:00 [facility] Influenza Virus 2019-08-06 Completed Universit y of Vaccine 00:00:00 [facility] Influenza Virus 2019-08-06 Completed Universit y of Vaccine 00:00:00 [facility] Influenza Virus 2019-08-06 Completed Universit y of Vaccine 00:00:00 [facility] Influenza Virus 2019-08-06 Completed Universit y of Vaccine 00:00:00 [facility] Influenza Virus 2019-08-06 Completed Universit y of Vaccine 00:00:00 [facility] Influenza Virus 2019-08-06 Completed Universit y of Vaccine 00:00:00 [facility] Influenza Virus 2019-08-06 Completed Universit y of Vaccine 00:00:00 [facility] Influenza Virus 2019-08-06 Completed Universit y of Vaccine 00:00:00 [facility] Influenza Virus 2019-08-06 Completed Universit y of Vaccine 00:00:00 [facility] Influenza Virus 2019-08-06 Completed Universit y of Vaccine 00:00:00 [facility] Influenza Virus 2019-08-06 Completed Universit y of Vaccine 00:00:00 [facility] Influenza Virus 2019-08-06 Completed Universit y of Vaccine 00:00:00 [facility] Influenza Virus 2019-08-06 Completed Universit y of Vaccine 00:00:00 [facility] Influenza Virus 2019-08-06 Completed Universit y of Vaccine 00:00:00 [facility] Influenza Virus 2019-08-06 Completed Universit y of Vaccine 00:00:00 [facility] Influenza Virus 2019-08-06 Completed Universit y of Vaccine 00:00:00 [facility] Influenza Virus 2019-08-06 Completed Universit y of Vaccine 00:00:00 [facility] Influenza Virus 2019-08-06 Completed Universit y of Vaccine 00:00:00 [facility] Influenza Virus 2019-08-06 Completed Universit y of Vaccine 00:00:00 [facility] Influenza Virus 2019-08-06 Completed Universit y of Vaccine 00:00:00 [facility] Influenza Virus 2019-08-06 Completed Universit y of Vaccine 00:00:00 [facility] Influenza Virus 2019-08-06 Completed Universit y of Vaccine 00:00:00 [facility] Influenza Virus 2019-08-06 Completed Universit y of Vaccine 00:00:00 [facility] Vital Signs Vital Name Observation Time Observation Value Comments Source Systolic blood 2023-02-04 15:56:00 128 mm[Hg] Univer sity of pressure [facility] Diastolic blood 2023-02-04 15:56:00 84 mm[Hg] Unive rsity of pressure [facility] Heart rate 2023-02-04 15:56:00 112 [facility] Respiratory rate 2023-02-04 15:56:00 18 /min Univ ersity of [facility] Body height 2023-02-04 15:56:00 [facility] [place] [facility] Body weight 2023-02-04 15:56:00 87.544 kg Universi ty of [place] [facility] BMI 2023-02-04 15:56:00 34.19 kg/m2 Universi ty of [place] [facility] Oxygen saturation in 2023-02-04 15:56:00 97 /min University of Arterial blood by [facility] Pulse oximetry Branch Systolic blood 2023-01-02 14:49:00 [facility] Systolic blood 2022-12-07 18:30:00 [...] of Arterial blood by [facility] abhishek Pulse oximetry Branch Body temperature 2022-12-07 [...] [facility] Systolic blood 2022-11-12 16:25:00 151 mm[Hg] Univer sity of pressure [place] [facility] Diastolic blood 2022-11-12 16:25:00 92 mm[Hg] Unive rsity of pressure [place] [facility] Heart rate 2022-11-12 16:25:00 95 /min Universi ty of [place] [facility] Oxygen saturation in 2022-11-12 16:25:00 97 /min University of Arterial blood by [facility] Pulse oximetry Branch Body temperature 2022-11-12 16:23:00 [...] /min University of Arterial blood by [place] [employer] abhishek Pulse oximetry Branch Systolic blood 2022-11-05 14:46:00 [...] /min University of Arterial blood by [place] [employer] abhishek Pulse oximetry Branch Systolic blood 2022-09-27 [...] /min University of Arterial blood by [place] [employer] ab[facility]hek Pulse oximetry Branch Body temperature 2022-09-27 [...] 94 /min University of Arterial blood by [facility] Pulse oximetry Branch Body temperature 2022-09-20 00:10:00 [...] [facility] Pulse oximetry Branch Heart rate 2022-08-29 04:25:00 93 /min Universi ty [facility] [place] [facility] Respiratory rate 2022-08-29 04:25:00 21 /min Univ ersity of [place] [facility] Oxygen saturation in 2022-08-29 04:25:00 95 /min University of Arterial blood by [facility] Pulse oximetry Branch Systolic blood 2022-08-29 04:00:00 [...] 96 /min University of Arterial blood by [facility] Pulse oximetry Branch Body temperature 2022-08-15 22:00:00 36.33 Lashawn Univ ersity of [place] [facility] Heart rate 2022-08-15 13:50:00 99 /min [facility] Respiratory rate 2022-08-15 13:50:00 18 /min [facility] Oxygen saturation in 2022-08-15 13:50:00 96 /min [facility] Arterial blood by [facility] abhishek Pulse oximetry Branch Systolic blood 2022-08-15 [facility] Systolic blood 2022-06-28 16:00:00 [...] 95 /min [facility] Arterial blood by [facility] Pulse oximetry Branch Body weight 2022-06-28 09:00:00 [facility] P[facility] Systolic blood 2022-05-28 14:40:00 [...] 96 /min [facility] Arterial blood by [facility] Pulse oximetry Branch Systolic blood 2022-04-30 [...] Branch Body weight 2022-04-30 14:11:00 81.784 kg [facility] BMI 2022-04-30 14:11:00 31.94 kg/m2 [facility] Oxygen saturation in 2022-04-30 14:11:00 97 /min [facility] blood by [facility] Pulse oximetry Branch Procedures Procedure Date / Time Performing Clinician Source Performed XR CHEST 2 VW 2023-01-02 15:11:00 [facility] CONSENT/REFUSAL FOR 2022-12-07 17:05:24 Doctor Unassigned, No [facility] Name Medical Branch CONSENT/REFUSAL FOR 2022-11-26 15:30:32 Doctor Unassigned, No [facility] Name Medical Branch DISCLOSURE AND CONSENT, 2022-11-12 06:01:00 Doctor Unassigned, N o [facility] MEDICAL AND SURGICAL Name Medical [facility] PROCEDURES XR HAND 3+ VW RIGHT 2022-11-10 15:55:44 Paige Jones [facility] PATIENT FINANCIAL 2022-11-05 14:24:59 Doctor Unassigned, No [facility] POLICY Name [facility] [place] EMERGENCY DEPARTMENT 2022-10-15 06:01:00 Doctor Unassigned, No [facility] DOCUMENTS Name [facility] [place] XR CHEST 1 VW 2022-09-27 07:30:00 Morgan [facility] COMP. METABOLIC PANEL 2022-09-20 00:35:00 Meng Galicia [facility] ([id number]) [facility] CBC WITH DIFF 2022-09-20 00:35:00 Meng Galicia [facility] CT ABDOMEN PELVIS W 2022-08-29 03:21:00 Amanda Power [facility] CONTRAST [facility] LIPASE 2022-08-29 03:00:00 Amanda Power [facility] MAGNESIUM 2022-08-29 03:00:00 Amanda Power [facility] COMP. METABOLIC PANEL 2022-08-29 03:00:00 Amanda Power [facility] ([id number]) [facility] CBC WITH DIFF 2022-08-29 03:00:00 Amanda Power [facility] URINALYSIS 2022-08-29 03:00:00 Amanda Power [facility] NOTICE OF PRIVACY 2022-08-29 02:51:00 Doctor Unassigned, No [facility] PRACTICES Name [facility] CONSENT/REFUSAL FOR 2022-08-29 02:49:23 Doctor Unassigned, No [facility] DIAGNOSIS AND TREATMENT [facility] LACTIC ACID WHOLE BLOOD 2022-08-15 18:33:00 Eliezer Klein [facility] TEST, SERUM 2022-08-14 19:48:00 Frandy Levy [facility] COMP. METABOLIC PANEL 2022-08-14 19:48:00 Frandy Levy [facility] ([id number]) [facility] CBC WITH DIFF 2022-08-14 19:48:00 Frandy Levy [facility] PROTHROMBIN TIME / INR 2022-08-14 19:48:00 Frandy Levy [facility] ACTIVATED PARTIAL 2022-08-14 19:48:00 Frandy Levy [facility] THRMPLAS [facility] LACTIC ACID WHOLE BLOOD 2022-08-14 19:48:00 Frandy Levy [facility] CRITICAL CARE 2022-08-14 19:11:00 Frandy Levy [facility] XR CHEST 2 VW 2022-06-27 19:48:40 Genaro Eubanks Gilliam o [facility] TEST, SERUM 2022-06-27 19:44:00 Genaro Eubanks [facility] THYROID STIMULATING 2022-06-27 19:44:00 Nancy Brar [facility] HORMONE [facility] COMP. METABOLIC PANEL 2022-06-27 19:44:00 Genaro Eubanks [facility] ([id number]) [facility] CBC WITH DIFF 2022-06-27 19:44:00 Genaro Eubanks Gilliam o [facility] RAPID INFLUENZA A/B 2022-06-27 19:44:00 Genaro Eubanks [facility] RAPID RSV 2022-06-27 19:44:00 Genaro Eubanks Gilliam o f [facility] COVID-19 (ID NOW RAPID 2022-06-27 19:44:00 Genaor Eubanks [facility]) Medical Branch Encounters Start End Encounter Admission Attending Care Care Encounter Source Date/Time Date/Time Type Type Clinicians Facility Department ID 2021-07-08 Emergency [facility] [id number] Univers 07:14:58 ity of [facility] 2021-07-07 Emergency [facility] [id number] Univers 03:24:43 ity of [facility] 2021-07-06 Inpatient R MARIUM DAWSON [facility] 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7.2.686 [facility] [id number] [place] [id number] [place] [facility] 2023-02-04 2023-02-04 Car Distributor V[facility]-Lab [facility] 1.2.840.114 [id number] Univers 12:00:00 12:15:00 Visit Catrachita Mercado 350.1. 13.10 ity of IAL[place] 4.2.7.2.686 [facility] [id number] [address] [facility]ES [facility]INIC 2023-02-04 2023-02-04 Outpatient R JESS [facility] [id number] Univers 11:30:00 11:39:11 CATRACHITA arteaga o [facility] 2023-02-04 2023-02-04 Office [facility] 1.2.840.114 [id number] Univers 11:30:00 11:39:11 Visit Catrachita Oconnor RANDAL 350.1.13.10 ity of [place] 4.2.7.2.686 [facility] [id number] [facility] AND DENIA [address] [place] [facility] 2023-02-03 2023-02-03 Outpatient [facility] [id number] Terrence 11:00:28 11:00:28 [id number] F Justen 2023-01-13 2023-01-13 Outpatient [facility] [id number] Terrence 10:31:00 10:31:00 [id number] [place] 2023-01-02 2023-01-02 Out[facility] [id number] Univers 09:55:10 23:59:00 [facility] 2023-01-02 2023-01-02 [facility] 1.2.840.114 [id number] Univers 09:55:10 23:59:00 Encounter [facility] 350.1.13.10 ity of [place] 4.2.7.2.686 Jethro as BISHOP?BLEA [id number] [facility] [address] [place] MEDICAL OFFICE [facility] 2023-01-02 2023-01-02 [facility] 1.2.840.11 [id number] Univers 10:00:00 10:01:10 Care Unknown, Attending HEALTH 350.1.13.10 ity of [place] 4.2.7.2.686 Jethro as BISHOP?BLEA [id number] [facility] [address] [place] MEDICAL OFFICE [facility] 2022-12-07 2022-12-07 Emergency X MARSHALL, [facility] ERT [id number] Univers 12:06:00 13:56:00 AMANDA arteaga [facility] 2022-12-07 2022-12-07 Emergency [facility] 1.2.840.114 [id number] Univers 12:06:00 13:56:00 Amandaodalis JOE 350.1.13.10 i ty of [place] 4.2.7.2.686 [facility] [id number] [facility] [address] [place] 2022-11-262022-11-26 Outpatient [facility] [id number] Univers 10:45:00 11:35:16 RACHNA arteaga [facility] 2022-11-26 2022-11-26 Office [facility] 1.2.563.017 [id number] Univers 10:45:00 11:35:16 Visit Rachna JOE 350.1.13.10 i ty of [place] [id number] Al dical [address] 2022-11-26 2022-11-26 Orders Doctor SONJA 1.2.840.114 [id number] Univers 00:00:00 00:00:00 Only Unassigned, ETTA 350.1.13.10 ity of [place] [facility] 4.2.7.2.686 Jethro as [id number] [facility] [address] [place] 2022-11-12 2022-11-12 Outpatient R [facility] [id number] Univers 14:00:00 14:00:00 RACHNA arteaga [facility] 2022-11-12 2022-11-12 Outpatient R [facility] [id number] Univers 10:00:00 11:16:39 RACHNA arteaga [facility] 2022-11-12 2022-11-12 Office [facility] 1.2.360.285 [id number] Univers 10:00:00 11:16:39 Visit Rachnajacek JOE 350.1.13.10 i ty of [place] [id number] Al dic[address] 2022-11-12 2022-11-12 Orders Doctor SONJA 1.2.840.114 [id number] Univers 00:00:00 00:00:00 Only Unassigned, ETTA 350.1.13.10 [facility] 4.2.7.2.686 Jethro as [id number] [facility] [address] [place] 2022-11-10 2022-11-10 Outpatient R [facility] [id number] Univers 09:48:22 23:59:00 REENU ity of [facility] 2022-11-10 2022-11-10 [facility] 1.2.840.114 [id number] Univers 09:48:22 23:59:00 Encounter [facility] 350.1.13.10 [facility] 4.2.7.2.686 Jethro as BISHOP?BLEA [id number] Al dical ANNETTE [address] [place] MEDICAL OFFICE [facility] 2022-11-10 2022-11-10 [facility]gent [facility] 1.2.840.11 [id number] Univers 09:20:00 09:55:29 Care Unknown, Attending HEALTH 350.1.13.10 ity of [place] 4.2.7.2.686 Jethro as BISHOP?BLEA [id number] Al dictristian RICHARDSONEY 370 [facility] OFFICE [facility] 2022-11-05 2022-11-05 Outpatient R [facility] [id number] Univers 09:00:00 09:37:01 RACHNA arteaga [facility] 2022-11-05 2022-11-05 Office [facility] 1.2.777.671 [id number] Univers 09:00:00 09:37:01 Visit Rachna TATYANA 350.1.13.10 i ty [facility] 4.2.7.2.[place] [id number] Al dictristian BOWEN [facility] 2022-11-05 2022-11-05 Orders Doctor SONJA 1.2.840.114 [id number] Univers 00:00:00 00:00:00 Only Unassigned, ETTA 350.1.13.10 ity of [place] HOSPITAL 4.2.7.2.686 Jethro as [id number] [address] 2022-10-15 2022-10-15 Orders Doctor SONJA 1.2.840.114 [id number] Univers 00:00:00 00:00:00 Only Unassigned, ETTA 350.1.13.10 ity of [place] HOSPITAL 4.2.7.2.686 Jethro as [id number] [address] 2022-09-27 2022-09-27 Emergency X SINGER [facility] ERT [id number] Univers 00:57:00 05:55:00 MORGAN arteaga [facility] 2022-09-27 2022-09-27 Emergency [facility] 1.2.146.698 [id number] Univers 00:57:00 05:55:00 Morgan JOE 350.1.13.10 i ty of [place] 4.2.7.2.686 [facility] [id number] [address] 2022-09-19 2022-09-19 Emergency X [facility] ERT [id number] Univers 18:05:00 21:16:00 , MENG ity of [facility] 2022-09-19 2022-09-19 [facility] 1.2.840.114 [id number] Univers 18:05:00 21:16:00 , Meng TATYANA 350.1.13.10 i ty of [place] 4.2.7.2.[address] [place] [phone] 2022-09-11 2022-09-11 Car Distributor [facility] 1.2.840.114 [id number] Univers 10:00:00 10:15:00 Visit Catrachita Mercado 350.1. 13.10 ity of IAL[place] 4.2.7.2.[address] [place] [id number] [facility]ES [facility] 2022-09-11 2022-09-11 Outpatient Tammi MERCADO [facility] [id number] Univers 10:00:00 10:00:00 CATRACHITA velasco [facility] 2022-09-11 2022-09-11 Office Jess [facility] 1.2.840.114 [id number] Univers 09:00:00 09:56:11 Visit Catrachita TEE 350.1.13.10 ity of [place]AL[place] 4.2.7.2.[address] [place] [id number] DI[facility]ETES CLINIC 2022-09-10 2022-09-10 Outpatient Tammi MERCADO [facility] [id number] Univers 09:30:00 09:30:00 CATRACHITA arteaga o f [facility] 2022-09-07 2022-09-07 Telephone Jess [facility] 1.2.840.114 [id number] Univers 00:00:00 00:00:00 Catrachita Oconnor MULTISPEC 350.1.13.10 ity of IALTY 4.2.7.2.686 [facility] [id number] [facility] AND [address] DIABETES [facility]INIC 2022-08-28 2022-08-28 Emergency [facility] ERT [id number] Univers 20:52:00 22:35:00 AMANDA arteaga [facility] 2022-08-28 2022-08-28 Emergency [facility] 1.2.840.114 [id number] Univers 20:52:00 22:35:00 Amanda JOE 350.1.13.10 ity of [place] 4.2.7.2.686 [facility] [id number] [facility] [address] 2022-08-17 2022-08-17 Nurse Nurse, [facility] Int Med Allergy [facility] 1.2.840.114 [id number] Univers 10:00:00 10:30:00 Visit Lorene Roman MULTISPEC 350.1 .13.10 ity of [place]AL[place] 4.2.7.2.[address] [place] [address] [id number] [facility] AND [address] DIABETES CLINIC 2022-08-17 2022-08-17 Outpatient R ABEL [facility] [id number] Univers 10:00:00 10:00:00 LORENE arteaga [facility] 2022-08-17 2022-08-17 Transition MUNA Tello 1.2.840.114 [id number] Univers 00:00:00 00:00:00 of Wen RICHEY 350.1.13.10 it y of [place] 4.2.7.2.686 [facility] [id number] [facility] [address] 2022-08-14 2022-08-15 Inpatient X ERNIE [facility] [id number] Univers 13:24:00 17:15:00 ELIEZER arteaga [facility] 2022-08-14 2022-08-15 Hospital Frandy Levy [facility] 1.2.840. 114 [id number] Univers 13:24:00 17:15:00 Encounter Eliezer Klein 350.1.13.10 ity of [place] 4.2.7.2.686 [facility] [id number] [facility] [address] 2022-08-14 2022-08-14 Malachi Mercado [facility] 1.2.840.114 [id number] Univers 00:00:00 00:00:00 Catrachita Oconnor MULTISPEC 350.1.13.10 ity of IAL[place] 4.2.7.2.[address] [place] [address] [id number] [facility] AND [address] DIABETES CLINIC 2022-07-22 2022-07-22 Nurse Nurse, [facility] Int Med Allergy [facility] 1.2.840.114 [id number] Univers 09:30:00 10:00:00 [facility] 350.1 .13.10 ity of IAL[place] 4.2.7.2.[address] [place] [address] [id number] [facility] AND [address] DIABETES CLINIC 2022-07-22 2022-07-22 Outpatient R ABEL [facility] [id number] Univers 09:30:00 09:30:00 LORENE [facility] 2022-06-30 2022-06-30 Transition MUNA Tello .2.840.114 [id number] Univers 00:00:00 00:00:00 of Care Marley RICHEY 350.1.13.10 it y of [place] 4.2.7.2.686 [facility] [id number] [facility] [address] 2022-06-27 2022-06-28 Outpatient X ERNIE [facility] JACKELYN [id number] Univers 13:49:00 13:32:00 ELIEZER arteaga [facility] 2022-06-27 2022-06-28 Emergency Genaro Eubanks [facility] 1.2.840.1 [id number] Univers 13:49:00 13:32:00 Eliezer Klein 350.1.13.10 ity of [place] 4.2.7.2.686 [facility] [id number] [facility] [address] 2022-06-25 2022-06-25 Nurse Nurse, [facility] Int Med Allergy [facility] 1.2.840.114 [id number] Univers 09:30:00 10:00:00 Visit Catrachita MercadoPEC 350.1. 13.10 ity of I[place] 4.2.7.2.686 [facility] [id number] [facility] AND [address] [facility]ETES [facility]IC 2022-06-25 2022-06-25 Outpatient R JESS [facility] [id number] Univers 09:30:00 09:30:00 CATRACHITA velasco [facility] 2022-05-28 2022-05-28 Nurse Nurse, [facility] Int Med Allergy [facility] 1.2.840.114 [id number] [facility] 10:00:00 10:30:00 Visit Catrachita Mercado 350.1. 13.10 ity of [place] 4.2.7.2.[address] [place] [address] [id number] [facility] AND [address] DIABETES CLINIC 2022-05-28 2022-05-28 Outpatient R JESS [facility] [id number] Univers 10:00:00 10:00:00 CATRACHITA velasco [facility] 2022-05-13 2022-05-13 Telephone [facility] 1.2.128.841 [id number] Univers 00:00:00 00:00:00 Critical access hospital 350.1.13.10 it y of [place] 4.2.7.2.686 [facility] [id number] [address] ([facility]) 2022-04-30 2022-04-30 Outpatient R JESS [facility] [id number] Univers 09:30:00 10:06:23 CATRACHITA velasco [facility] 2022-04-30 2022-04-30 Office Jess [facility] 1.2.840.114 [id number] Univers 09:30:00 10:06:23 Visit Catrachita L MULTISPEC 350.1.13.10 ity of [place].2.686 [place] [id number] [facility] AND [address] DIABETES CLINIC 2022-04-30 2022-04-30 Outpatient R JESS [facility] [id number] Univers 09:30:00 10:06:23 CATRACHITA arteaga o f [facility] 2022-04-23 2022-04-23 Refill [facility] 1.2.840.114 [id number] Univers 00:00:00 00:00:00 Catrachita Oconnor MULTISPEC 350.1.13.10 ity of [place]2.7.2.686 [place] [id number] [facility] AND [address] DIABETES CLINIC 2022-04-02 2022-04-02 Telephone [facility] 1.2.840.114 [id number] Univers 00:00:00 00:00:00 Catrachita Oconnor MULTISPEC 350.1.13.10 ity of [place]2.7.2.686 [place] [id number] [facility] AND [address] DIABETES CLINIC 2022-03-30 2022-03-30 Nurse Nurse, [facility] Int Med Allergy [facility] 1.2.840.114 [id number] [facility] 13:00:00 15:10:07 Visit Lorene Roman MULTISPEC 350.1 .13.10 [place].2.686 [place] [id number] [facility] AND [address] DIABETES CLINIC 2022-03-30 2022-03-30 Outpatient R ABEL [facility] [id number] Univers 13:00:00 15:10:07 LORENE arteaga [facility] 2022-03-05 2022-03-05 [facility] [id number] Univers 09:00:00 09:57:41 LORENE arteaga [facility] 2022-03-05 2022-03-05 Nurse Nurse, [facility] Int Med Allergy [facility] 1.2.840.114 [id number] [facility] 09:00:00 09:57:41 Visit Lorene RomanPEC 350.1 .13.10 it[place].7.2.686 [place] [id number] [address] DIABETES CLINIC 2022-02-04 2022-02-04 Nurse Nurse, [facility] Int Med Allergy [facility] 1.2.840.114 [id number] Univers 09:00:00 09:30:00 Visit Lorene Roman [facility] 350.1 .13.10 ity of IAL[place] 4.2.7.2.686 [facility] SEDRO WOOLLEY [id number] [facility] AND [address] DIABETES CLINIC 2022-02-04 2022-02-04 Outpatient R ABEL [facility] [id number] Univers 09:00:00 09:00:00 LORENE arteaga [facility] 2022-01-29 2022-01-29 Malachi Mercado [facility] 1.2.840.114 [id number] Univers 00:00:00 00:00:00 Catrachita TEE 350.1.13.10 ity of IAL[place] 4.2.7.2.686 [facility] SEDRO WOOLLEY [id number] [address] DIABETES CLINIC 2022-01-27 2022-01-27 Malachi Martinez [facility] 1.2.840.114 [id number] Univers 00:00:00 00:00:00 [facility] 350.1.13.10 it y of [place] 4.2.7.2.686 Jethro as BISHOP?BLEA [id number] [address] MEDICAL OFFICE BUILDING 2022-01-09 2022-01-09 Outpatient R JESS [facility] [id number] Univers 08:30:00 11:32:35 CATRACHITA velasco [facility] 2022-01-09 2022-01-09 Office [facility] 1.2.840.114 [id number] Univers 08:30:00 11:32:35 Visit Catrachita TEE 350.1.13.10 ity of [place].7.2.686 [place] [id number] [facility] AND [address] DIABETES [facility] 2022-01-05 2022-01-05 Telephone Jess [facility] 1.2.840.114 [id number] Univers 00:00:00 00:00:00 Catrachita TEE 350.1.13.10 ity of [place] 4.2.7.2.686 [facility] [id number] [facility] AND [address] DIABETES CLINIC 2021-12-11 2021-12-11 Nurse Nurse, [facility] Int Med Allergy [facility] 1.2.840.114 [id number] Univers 09:00:00 11:00:00 Visit Catrachita Mercado 350.1. 13.10 ity of IAL[place] 4.2.7.2.[address] [place] [address] [id number] [facility] AND [address] DIABETES CLINIC 2021-12-11 2021-12-11 Outpatient Tammi MERCADO [facility] [id number] Univers 09:00:00 09:00:00 CATRACHITA arteaga o f [facility] 2021-11-22 2021-11-22 Emergency X ELAINE, K [facility] ERT [id number] Univers 14:44:00 20:04:00 ity of [facility] 2021-11-22 2021-11-22 Emergency Elaine, K [facility] 1.2.840.114 [id number] Univers 14:44:00 20:04:00 Ceci JOE 350.1.13.10 i ty of [place] 4.2.7.2.[address] [place] [address] [id number] [facility] [address] 2021-11-14 2021-11-14 Office Jess [facility] 1.2.840.114 [id number] Univers 09:00:00 11:12:34 Visit Catrachita TEE 350.1.13.10 ity of IALTY 4.2.7.2.686 [facility] [id number] [facility] AND [address] DIABETES CLINIC 2021-11-14 2021-11-14 Outpatient Tammi MERCADO [facility] [id number] Univers 09:00:00 11:12:34 CATRACHITA velasco [facility] 2021-11-14 2021-11-14 Outpatient Tammi MERCADO [facility] [id number] Univers 09:00:00 09:00:00 CATRACHITA jenni velasco [facility] 2021-11-14 2021-11-14 Outpatient Tammi MERCADO [facility] [id number] Univers 09:00:00 09:00:00 CATRACHITA jenni velasco [facility] 2021-11-12 2021-11-12 [employer] Sarah, Adc Lab Main [facility] [id number] Univers 08:00:00 08:15:00 Visit Catrachita Mercado 350.1.1 3.10 ity of [id number] [facility] [phone] [address] 2021-11-12 2021-11-12 Outpatient Tammi MERCADO [facility] [id number] Univers 08:00:00 08:00:00 CATRACHITA velasco [facility] 2021-11-12 2021-11-12 Orders Doctor SONJA [id number] Univers 00:00:00 00:00:00 Only Unassigned, ETTA [id number] ity of [place] [facility] 4.2.7.2.686 Jethro as [phone] [address] 2021-11-10 2021-11-10 Telephone Robert [facility] 1.2.840.114 [id number] Univers 00:00:00 00:00:00 [place] [employer] [facility] 350.1.13.10 it y of [facility] 4.2.7.2.686 [place] [facility] [phone] [address] ([facility]) 2021-11-07 2021-11-07 Outpatient Tammi MERCADO [facility] [id number] Univers 11:00:00 11:00:00 CATRACHITA velasco [facility] 2021-11-07 2021-11-07 Outpatient Tammi MERCADO [facility] [id number] Univers 11:00:00 11:00:00 CATRACHITA velasco [facility] 2021-11-05 2021-11-05 Patient Jess [facility] 1.2.840.114 [id number] Univers 00:00:00 00:00:00 Secure Msg Catrachita Oconnor MULTISPEC 350.1.13.10 ity of [place].2.686 [place] CENTER [phone] [facility] AND [address] DIABETES CLINIC 2021-11-05 2021-11-05 Patient Jess [facility] 1.2.840.114 [id number] Univers 00:00:00 00:00:00 Secure Msg Catrachita Oconnor MULTISPEC 350.1.13.10 ity of [place] 4.2.7.2.686 [facility] CENTER [phone] [facility] AND [address] DIABETES CLINIC 2021-10-30 2021-10-30 [facility]medici [facility] 1.2.840.114 [id number] Univers 08:30:00 09:00:00 ne Visit Catrachita Oconnor HLEGAPEC 350.1.13.10 ity of [place] 4.2.7.2.686 [facility] SEDRO WOOLLEY [phone] [facility] AND [address] DIABETES CLINIC 2021-10-30 2021-10-30 [facility] [id number] Univers 08:30:00 08:30:00 CATRACHITA corrales eboni [facility] 2021-10-30 2021-10-30 Outpatient [facility] [id number] Univers 08:30:00 08:30:00 CATRACHITA velasco [facility] 2021-10-29 2021-10-29 RefMarium Jalloh [facility] 1.2.840.114 [id number] Univers 00:00:00 00:00:00 TATYANA 350.1.13.10 i ty of [place] 4.2.7.2.686 [facility] PROFESSIO [phone] [address] 2021-10-19 2021-10-19 Malachi Martinez [facility] 1.2.840.114 [id number] Univers 00:00:00 00:00:00 Rosio HEALTH 350.1.13.10 it y of [place] 4.2.7.2.686 Jethro as BISOHP?BLEA [phone] [address] MEDICAL OFFICE BUILDING 2021-10-17 2021-10-17 Transition MUNA Camejo 1.2.840.114 [id number] Univers 00:00:00 00:00:00 of Care Alanna L RICHEY 350.1.13.10 i ty of [place]2.7.2.[place] [phone] [facility] [address] 2021-10-15 2021-10-16 Outpatient X ERNIE [facility] JACKELYN [id number] Univers 14:23:00 14:50:00 ELIEZER arteaga [facility] 2021-10-15 2021-10-16 Emergency Marium Hickey [facility] 1.2.840. 114 [id number] Univers 14:23:00 14:50:00 Eliezer Klein 350.1.13.10 ity of [facility] 4.2.7.2.686 [place] [phone] [facility] [address] 2021-09-27 2021-09-27 Emergency X INESSA [facility] ERT [id number] Univers 11:15:00 14:54:00 BA arteaga of [facility] 2021-09-27 2021-09-27 Emergency Ismael Cotter [facility] 1.2. 840.114 [id number] Univers 11:15:00 14:54:00 Ba Pascal 350.1.13.10 ity of [facility] 4.2.7.2.686 [place] [phone] [facility] [address] 2021-09-27 2021-09-27 Urgent Juan [facility] 1.2.840.114 [id number] Univers 10:20:00 10:20:00 Care Rosio HEALTH 350.1.13.10 it y of [place] 4.2.7.2.686 Jethro as BISHOP?BLEA [phone] [address] MEDICAL OFFICE [facility] 2021-09-27 2021-09-27 Outpatient Tammi MARTINEZ [facility] [id number] Univers 10:20:00 10:16:45 ROSIO ity of [facility] 2021-08-12 2021-08-12 Telephone Jess [facility] 1.2.840.114 [id number] Univers 00:00:00 00:00:00 Catrachita TEE 350.1.13.10 it[place] of [place].2.[place] CENTER [phone] [address] DIABETES CLINIC 2021-08-12 2021-08-12 Orders Doctor SONJA 1.2.840.114 [id number] Univers 00:00:00 00:00:00 Only Unassigned, ETTA 350.1.13.10 ity of [place] [facility] 4.2.7.2.686 Jeth[place] as [phone] [address] 2021-08-08 2021-08-08 Car Distributor [facility] 1.2.840.114 [id number] Univers 11:56:09 12:11:09 Visit Catrachita Mercado 350.1. 13.10 it[place] of [place].2.7.2.686 [place] CENTER [phone] [address] DIABETES CLINIC 2021-08-08 2021-08-08 Outpatient R JESS [facility] [id number] Univers 11:00:00 11:56:31 CATRACHITA corrales f [facility] 2021-08-08 2021-08-08 Office Jess [facility] 1.2.840.114 [id number] Univers 10:03:35 11:56:31 Visit Catrachita TEE 350.1.13.10 it[place] of [place].2.[place] [phone] [address] DIABETES CLINIC 2021-07-22 2021-07-22 Outpatient R MARIUM DAWSON [facility] [id number] Univers 13:30:00 14:05:17 ity of [facility] 2021-07-22 2021-07-22 Office Marium Dawson [facility] 1.2.840.114 [id number] Univers 13:17:43 14:05:17 Visit TATYANA 350.1.13.10 i ty of [facility] 4.2.7.2.686 [place] [phone] Al dical NAL [address] [place] [address] 2021-07-22 2021-07-22 Outpatient R MARIUM DAWSON [facility] [id number] Univers 13:30:00 13:30:00 ity [facility] 2021-07-22 2021-07-22 Outpatient R MARIUM DAWSON [facility] [id number] Univers 13:30:00 13:30:00 ity [facility] 2021-07-11 2021-07-11 Office Marium Dawson [facility] 1.2.840.114 [id number] Univers 16:01:12 16:49:47 Visit TATYANA 350.1.13.10 i ty of [facility] 4.2.7.2.686 [facility] PROFESSIO [phone] Al dic[address] 2021-07-11 2021-07-11 Outpatient R MARIUM DAWSON [facility] [id number] Univers 16:00:00 16:49:47 ity [facility] 2021-07-11 2021-07-11 Telephone Marium Dawson [facility] 1.2.840.11 [id number] Univers 00:00:00 00:00:00 REJI 350.1.13.10 it y of WOMEN'S 4.2.7.2.686 [facility] [phone] [facility] [address] 2021-06-20 2021-06-20 Emergency Cristofer Henry [facility] 1.2.840.114 [id number] Univers 17:48:00 21:24:00 Ceci Joe 350.1.13.10 i ty of [place] 4.2.7.2.686 [facility] [place] [phone] [facility] [address] 2021-05-08 2021-05-08 Letter SONJA Shepherd 1.2.840.114 [id number] Univers 00:00:00 00:00:00 (Out) Dedra QUILES 350.1.13.10 it y of HOSPITAL 4.2.7.2.686 [place] as [phone] [address] 2021-05-07 2021-05-07 Laboratory Only, Ang Db Test [facility] 1.2.8 40.114 [id number] Univers 09:27:26 09:37:26 Only Marcin Bobbi [facility] 350.1.13.10 ity of [place] 4.2.7.2.686 Jeth[place] as Ibshop?Blea [phone] Al dannytristian [address] Medical Office Building 2021-05-07 2021-05-07 Outpatient R MARCIN [facility] [id number] Univers 09:25:00 09:25:00 BOBBI ity of [facility] 2021-04-11 2021-04-11 Car Distributor V[facility]-Lab [facility] 1.2.840.114 [id number] Univers 12:33:14 12:48:14 Visit Catrachita Mercado 350.1. 13.10 ity of [place] 4.2.7.2.686 [facility] SEDRO WOOLLEY [phone] [facility] AND [place]INSTON [address] DIABETES CLINIC 2021-04-11 2021-04-11 Office Jess [facility] 1.2.840.114 [id number] Univers 11:19:19 12:35:51 Visit Catrachita PARTIDAPEC 350.1.13.10 ity of [place] 4.2.7.2.686 [facility] CENTER [phone] [facility] [address] DIABETES CLINIC 2021-04-11 2021-04-11 Outpatient Tammi MERCADO [facility] [id number] Univers 12:00:00 12:00:00 CATRACHITA velasco [facility] 2021-04-08 2021-04-08 Office Marium Dawson [facility] 1.2.840.114 [id number] Univers 10:25:23 11:26:58 Visit Reji 350.1.13.10 it y of [place] [phone] [facility] [address] 2021-04-08 2021-04-08 Outpatient MARIUM KAISER [facility] [id number] Univers 10:30:00 10:30:00 ity of [facility] 2021-03-25 2021-03-25 Outpatient R MARIUM DAWSON [facility] [id number] Univers 15:30:00 15:30:00 ity of [facility] 2021-03-18 2021-03-18 Car Distributor V[facility] 1.2.840.114 [id number] Univers 14:34:51 14:49:51 Visit Catrachita MercadoPEC 350.1. 13.10 it[place] of [place]2.7.2.686 [place] CENTER [phone] [facility] AND [address] DIABETES CLINIC 2021-03-18 2021-03-18 Office Jess [facility] 1.2.840.114 [id number] Univers 13:38:25 14:35:19 Visit Catrachita TEE 350.1.13.10 it[place] of [place]2.7.2.686 [place] [id number] [facility] AND [place] [address] [place] DI[facility]ES CLINIC 2021-03-18 2021-03-18 Outpatient R JESS [facility] [id number] Univers 13:30:00 13:30:00 CATRACHITA arteaga o f [facility] 2021-02-28 2021-02-28 Office Marium Dawson [facility] 1.2.840.114 [id number] Univers 15:07:35 16:01:07 Visit Tatyana 350.1.13.10 i ty of [place] 4.2.7.2.686 [facility] Professio [phone] Al dical [address] 2021-02-28 2021-02-28 Outpatient R MARIUM DAWSON [facility] [id number] Univers 15:30:00 15:30:00 ity of [facility] 2021-02-26 2021-02-26 Emergency Hugh [facility] 1.2.391.532 [id number] Univers 19:08:00 22:19:00 Ashwin Joe 350.1.13.10 ity of [place]2.7.2.686 [place] [phone] [facility] [address] 2021-02-21 2021-02-22 Hospital Marium Dawson [facility] 1.2.840.114 [id number] Univers 07:31:00 12:50:00 Encounter Tatyana 350.1.13.10 ity of [place] 4.2.7.2.686 [place] [phone] [facility] [address] 2021-02-21 2021-02-21 Anesthesia Ernesto Tesfaye [facility] 1.2.840.11 [id number] Univers 08:16:00 13:05:00 Event Mati Grissom [place] 350.1.13.10 ity of [place] 4.2.7.2.686 [place] Surgical [phone] [facility] 0[address] 2021-02-21 2021-02-21 Surgery Marium Dawson [facility] 1.2.840.114 [id number] Univers 08:30:00 12:52:00 [place] 350.1.13.10 i ty of [place] 4.2.7.2.686 [place] Surgical [phone] [facility] [address] 2021-02-21 2021-02-21 Orders Doctor SONJA 1.2.840.114 [id number] Univers 00:00:00 00:00:00 Only Unassigned, ETTA 350.1.13.10 ity of [place] [facility]PITAL 4.2.7.2.686 Jethro as [id number] [facility] [address] 2021-02-20 2021-02-20 Outpatient R MARIUM DAWSON [facility] [id number] Univers 08:30:00 08:30:00 ity of [facility] 2021-02-20 2021-02-20 Car Distributor Ace [facility] Main [facility] 1.2.8 40.114 [id number] Univers 08:08:54 08:23:54 Visit Marium Dawson 350.1.13.10 ity of [place].7.2.686 [place] Profess[place] [phone] Al dical [address] 2021-02-20 2021-02-20 Laboratory Only, Adc Test [facility] 1.2.840. 114 [id number] Univers 08:08:25 08:23:25 Only Marium Dawson 350.1.13.10 ity of [place] 4.2.7.2.686 [place] [id number] [facility] [address] 2021-02-19 2021-02-19 Orders Doctor SONJA 1.2.840.114 [id number] Univers 00:00:00 00:00:00 Only Unassigned, ETTA 350.1.13.10 ity of [place] [facility] 4.2.7.2.686 Jeth[place] as [phone] [address] 2021-02-18 2021-02-18 Outpatient R MARIUM DAWSON [facility] [id number] Univers 08:15:00 08:15:00 ity [facility] 2021-02-06 2021-02-06 Outpatient R MARIUM DAWSON [facility] [id number] Univers 10:30:00 10:30:00 ity [facility] 2021-01-29 2021-01-29 Outpatient R MARIUM DAWSON [facility] [id number] Univers 00:00:00 00:00:00 ity [facility] 2021-01-24 2021-01-24 Office Marium Dawson [facility] 1.2.840.114 [id number] Univers 14:18:23 15:08:39 Visit Tatyana 350.1.13.10 i ty [facility] 4.2.7.2.686 [place] [facility] [phone] Al dical [address] 2021-01-24 2021-01-24 Outpatient R MARIUM DAWSON [facility] [id number] Univers 14:30:00 14:30:00 ity [facility] 2021-01-24 2021-01-24 Orders Doctor SONJA 1.2.840.114 [id number] Univers 00:00:00 00:00:00 Only Unassigned, ETTA 350.1.13.10 ity of [place] [facility] 4.2.7.2.686 Jethro as [phone] [address] 2021-01-21 2021-01-21 Outpatient MARIUM KAISER [facility] [id number] Univers 09:00:00 09:00:00 [facility] 2021-01-02 2021-01-02 Outpatient R HEAVEN [facility] [id number] Univers 10:30:00 10:30:00 SHRUTHI [facility] 2020-11-25 2020-11-25 Patient [facility] 1.2.840.114 [id number] Univers 00:00:00 00:00:00 Outreach Miko PRIMARY 350.1.13.10 i ty of [facility] 4.2.7.2.686 [place]ION [phone] Al dical [address] 2020-09-28 2020-09-28 Emergency [facility] 1.2.524.736 [id number] Univers 13:43:00 16:38:00 Morgan Joe 350.1.13.10 i ty of [place] 4.2.7.2.686 [place] [phone] [facility] [address] 2020-09-17 2020-09-17 Office [facility] 1.2.897.886 [id number] Univers 13:24:29 14:54:21 Visit Rachna Joe 350.1.13.10 i ty of [place] 4.2.7.2.686 [place] Profess[place] [phone] Al dical nal 188 [facility] 2020-09-17 2020-09-17 Outpatient R ELEAZAR [facility] [id number] Univers 13:45:00 13:45:00 RACHNA arteaga [facility] 2020-09-05 2020-09-05 Office Rachna Bush [facility] 1.2.840.1 14 [id number] Univers 10:40:42 11:50:15 Visit Rm, Adc Surg Spec Procedure Tatyana 3 50.1.13.10 ity of [place] 4.2.7.2.686 [place] Profess[place] [phone] Al dical nal 188 [facility] 2020-09-05 2020-09-05 Outpatient R ELEAZAR [facility] [id number] Univers 10:45:00 10:45:00 RACHNA arteaga [facility] 2020-09-05 2020-09-05 Orders Doctor SONJA 1.2.840.114 [id number] Univers 00:00:00 00:00:00 Only Unassigned, ETTA 350.1.13.10 ity of [place] HOSPITAL 4.2.7.2.686 Jethro as [phone] [address] 2020-08-06 2020-08-06 Office [facility] 1.2.897.262 [id number] Univers 15:20:07 16:38:34 Visit Rachna Joe 350.1.13.10 i ty of [place] 4.2.7.2.686 [place] Professio [phone] [address] 2020-08-06 2020-08-06 Outpatient R [facility] [id number] Univers 15:30:00 15:30:00 RACHNA arteaga [facility] 2020-07-31 2020-07-31 Telephone [facility] 1.2.840.114 [id number] Univers 00:00:00 00:00:00 Rachna Joe 350.1.13.10 i ty of [place] 4.2.7.2.686 [place] Professio [phone] [address] 2020-07-30 2020-07-30 Office [facility] 1.2.507.814 [id number] Univers 14:25:30 16:00:44 Visit Rachna Floreston 350.1.13.10 i ty of [place] 4.2.7.2.686 [place] Professio [phone] [address] 2020-07-30 2020-07-30 Outpatient R [facility] [id number] Univers 14:30:00 14:30:00 RACHNA arteaga [facility] 2020-07-30 2020-07-30 Orders Doctor CASILLAS 1.2.840.114 [id number] Univers 00:00:00 00:00:00 Only Unassigned, ETTA 350.1.13.10 ity of [place] [facility]OSPITAL 4.2.7.2.686 Jeth[place] as [phone] [address] 2020-07-27 2020-07-27 Urgent Provider, [facility] 1.2.840.114 [id number] Univers 13:06:42 14:02:20 Care Marcin Bobbi [facility] 350.1.13.10 ity of [place] 4.2.7.2.686 Jethro as Professio [phone] Al dical nal [address] Office Building One 2020-07-27 2020-07-27 Outpatient R MARCIN [facility] [id number] Univers 13:20:00 13:20:00 BOBBI ity of [facility] 2020-07-18 2020-07-18 Laboratory Pc, Adc Echo Room 1 - [facility] 1 .2.840.114 [id number] Univers 08:48:25 09:48:25 Only Deborah Macario 350.1.13.10 ity of [place].2.7.2.686 [place] Profess[place] [phone] Al dical nal 059 [facility] 2020-07-18 2020-07-18 Outpatient R [facility] [id number] Univers 09:00:00 09:00:00 ity of [facility] 2020-07-18 2020-07-18 Orders Doctor SONJA 1.2.840.114 [id number] Univers 00:00:00 00:00:00 Only Unassigned, ETTA 350.1.13.10 ity of [place] [facility] 4.2.7.2.686 Jethro as [id number] [facility] [address] 2020-06-25 2020-06-25 Transition Muna Tello 1.2.840.114 [id number] Univers 00:00:00 00:00:00 of Care Marley Richey 350.1.13.10 it y of [place]2.7.2.686 [place] [id number] [facility] [address] 2020-06-22 2020-06-23 Emergency Mino Shahid [facility] 1.2.840. 114 [id number] Univers 12:07:00 14:40:00 Anahy Owen 350.1.13.10 ity of [place] 4.2.7.2.686 [place] [phone] [facility] [address] 2020-06-12 2020-06-12 Orders Doctor SONJA 1.2.840.114 [id number] Univers 00:00:00 00:00:00 Only Unassigned, ETTA 350.1.13.10 ity of [place] [facility]OSPITAL 4.2.7.2.686 Jethro as [phone] [facility] [address] 2020-03-19 2020-03-19 Orders Doctor SONJA 1.2.840.114 [id number] Univers 00:00:00 00:00:00 Only Unassigned, ETTA 350.1.13.10 ity of [place] [facility]OSPITAL 4.2.7.2.686 Jethro as [id number] [facility] [address] 2020-03-19 2020-03-19 Orders Doctor SONJA 1.2.840.114 [id number] 00:00:00 00:00:00 Only Unassigned, ETTA 350.1.13.10 [place] [facility] 4.2.7.2.686 [phone] [facility] 2020-02-28 2020-02-28 Transition Muna Tello 1.2.840.114 [id number] Univers 00:00:00 00:00:00 of Care Marley Richey 350.1.13.10 it y of [place]2.7.2.[place] [id number] [facility] [address] 2020-02-28 2020-02-28 Transition Muna Tello 1.2.840.114 [id number] 00:00:00 00:00:00 of Care Marley Richey 350.1.13.10 [place] 4.2.7.2.686 [id number] [facility] 2020-02-23 2020-02-27 [facility] [id number] Univers 21:57:28 16:56:00 TIANA ity of [facility] 2020-02-23 2020-02-27 [facility] MartinMagalys vázquez 1.2.395.717 [id number] Univers 21:57:28 16:56:00 Encounter Tiana Quiles 350.1.13.10 ity of Hospital 4.2.7.2.686 [place]eth[place] as [phone] [facility] [address] 2020-02-23 2020-02-27 Hospital Magalys Smith 1.2.118.050 [id number] 21:57:28 16:56:00 Encounter Tiana Wing Etta 350.1.13.10 [facility] 42.7.2.686 [id number] 093 2020-01-31 2020-02-02 Inpatient X BRAYDEN [facility] [id number] Univers 13:56:16 12:50:00 ANAHY ity of [facility] 2020-01-31 2020-02-02 [facility] 1.2.840. 114 [id number] Univers 13:56:16 12:50:00 Encounter AjaydarrenchristopherAnahy 350.1.13.10 ity of [place] 4.2.7.2.[address] [facility] [phone] [facility] [address] [place] [address] 2020-01-31 2020-02-02 [facility] Annamaria Cardenas [facility] 1.2.840. 114 [id number] 13:56:16 12:50:00 Encounter JhonychristopherAnahy 350.1.13.10 [place] 4.2.7.2.686 [place] [phone] [facility] 2020-01-31 2020-01-31 Orders Doctor SONJA 1.2.840.114 [id number] Univers 00:00:00 00:00:00 Only Unassigned, ETTA 350.1.13.10 ity of [place] [facility] 4.2.7.2.686 Jethro [id number] [facility] [address] 2020-01-31 2020-01-31 Orders Doctor SONJA 1.2.840.114 [id number] 00:00:00 00:00:00 Only Unassigned, ETTA 350.1.13.10 [place] [facility] 4.2.7.2.686 [phone] 009 Results Test Description Test Time Test [...] See_Comment [Au tomated message] The system which 6Scan nerated this result transmit noreen reference range: [...] 34.1 g/dL 31.6-35.1 RDW-SD (test code = 57951-7) 37.4 fL 39.0-49.9 L RDW-CV (test code = 788-0) 12.5 % 12.0-15.5 PLT (test code = 777-3) See_Comment [Au tomated message] The system which 6Scan nerated this result transmit noreen reference range: 166 - 35 8 10*3/?L. The reference range was not used to interpret th is result as normal/abnormal . MPV (test code = 15010-3) 10.5 fL 9.5-12.9 NRBC/100 WBC (test code = See_Comment [ Automated message] The [id number]) system which 6Scan nerated this result transmit noreen reference range: 0.0 - 10 .0 /100 WBCs. The reference r daniela was not used to interpr et this result as normal/abnor mal. NRBC x10^3 (test code = See_Comment [Au tomated message] The [id number]) system which 6Scan nerated this result transmit noreen reference range: 10*3/?L. The reference range was not u sed to interpret this result as normal/abnormal . GRAN MAT (NEUT) % (test code 55.4 % = 770-8) IMM GRAN % (test code = 0.60 % [id number]) LYMPH % (test code = 736-9) 36.2 % MONO % (test code = 5905-5) 6.0 % EOS % (test code = 713-8) 1.2 % BASO % (test code = 706-2) 0.6 % GRAN MAT x10^3(ANC) (test 7.91 10*3/uL 1.88-7.09 H code = [id number]) IMM GRAN x10^3 (test code = 0.08 10*3/uL 0.00-0.06 H 0746913369) LYMPH x10^3 (test code = 5.16 10*3/uL 1.32-3.29 H 731-0) MONO x10^3 (test code = 0.86 10*3/uL 0.33-0.92 742-7) EOS x10^3 (test code = 0.17 10*3/uL 0.03-0.39 711-2) BASO x10^3 (test code = 0.08 10*3/uL 0.01-0.07 H 704-7) Lab Interpretation (test Abnormal code = 93116-3) [facility]32822)2022-09-20 01:13:21 Test Item Value Reference Range Interpretation Comments NA (test code = 138 mmol/L 135-145 2197486297) K (test code = 3.6 mmol/L 3.5-5.0 6616792795) CL (test code = 104 mmol/L 98-108 1328198648) CO2 TOTAL (test code = 19 mmol/L 23-31 L 4097278096) AGAP (test code = 2-16 3576913474) BUN (test code = 12 mg/dL 7-23 1751963032) GLUCOSE (test code = 131 mg/dL 70-110 H 4428203910) CREATININE (test code = 0.56 mg/dL 0.50-1.04 9509652949) TOTAL BILI (test code = 0.5 mg/dL 0.1-1.0 9136590224) CALCIUM (test code = 9.4 mg/dL 8.6-10.6 9720326771) T PROTEIN (test code = 7.8 g/dL 6.3-8.2 0145495562) ALBUMIN (test code = 4.8 g/dL 3.5-5.0 8819842135) ALK PHOS (test code = 67 U/L 34-122 8557041332) ALTv (test code = 29 U/L 5-35 2-6) AST(SGOT) (test code = 32 U/L 13-40 6534787836) eGFR (test code = mL/min/1.73m2 8088679806) JESSICA (test code = JESSICA) Association of [...] tests). Lab Interpretation Abnormal (test code = 60201-0) [facility] WITH [id number] 03:53:40 Test Item Value Reference Range Interpretation [...] (test code = 38.7 fL 39.0-49.9 L 12251-7) RDW-CV (test code = 12.6 % 12.0-15.5 788-0) PLT (test code = See_Comment [Automated 777-3) message] The sy stem which generated this result transmitted reference range : 166 - 358 10*3/ ?L. The reference r daniela was not used to interpret this result as normal/abnormal . MPV (test code = 9.2 fL 9.5-12.9 L 31881-4) NRBC/100 WBC (test See_Comment [Automat ed code = 5968324145) message] The system which generated this result transmitted reference range : 0.0 - 10.0 /100 WBCs. The refer ence range was not u sed to interpret th is result as normal/abnormal . NRBC x10^3 (test code See_Comment [Auto mated = 3227234161) message] The s ystem which generated this result transmitted reference range : 10*3/?L. The reference range was not used to interpret this result as normal/abnormal . GRAN MAT (NEUT) % 58.7 % (test code = 770-8) IMM GRAN % (test code 0.40 % = 7781402072) LYMPH % (test code = 32.5 % 736-9) MONO % (test code = 6.4 % 5905-5) EOS % (test code = 1.2 % 713-8) BASO % (test code = 0.8 % 706-2) GRAN MAT x10^3(ANC) 7.96 10*3/uL 1.88-7.09 H (test code = 5940872853) IMM GRAN x10^3 (test 0.05 10*3/uL 0.00-0.06 code = 0986120417) LYMPH x10^3 (test code 4.40 10*3/uL 1.32-3.29 H = 731-0) MONO x10^3 (test code 0.87 10*3/uL 0.33-0.92 = 742-7) EOS x10^3 (test code = 0.16 10*3/uL 0.03-0.39 711-2) BASO x10^3 (test code 0.11 10*3/uL 0.01-0.07 H = 704-7) REACT LYMPHS (test Rare code = 0926288170) Lab Interpretation Abnormal (test code = 99336-6) [facility]28 Test Item Value Reference Range Interpretation Comments MAGNESIUM (test code = 8164713063) 1.7 mg/dL 1.7-2.4 Lab Interpretation (test code = Normal 56377-4) [facility] MET[facility]OLIC PANEL ([id number])2022-08-29 03:31:08 Test Item Value Reference Range Interpretation Comments NA (test code = 139 mmol/L 135-145 2489223670) K (test code = 4.4 mmol/L 3.5-5.0 6257617947) CL (test code = 109 mmol/L 98-108 H 1244247393) CO2 TOTAL (test code = 20 mmol/L 23-31 L 9090913125) AGAP (test code = 2-16 4212640859) BUN (test code = 10 mg/dL 7-23 2871176356) GLUCOSE (test code = 134 mg/dL 70-110 H 3069926096) CREATININE (test code = 0.54 mg/dL 0.50-1.04 7828774184) TOTAL BILI (test code = 0.3 mg/dL 0.1-1.0 5027682607) CALCIUM (test code = 9.0 mg/dL 8.6-10.6 5498801404) T PROTEIN (test code = 7.3 g/dL 6.3-8.2 1569384494) ALBUMIN (test code = 4.6 g/dL 3.5-5.0 9106730164) ALK PHOS (test code = 54 U/L 34-122 0842911749) ALTv (test code = 21 U/L 5-35 1742-6) AST(SGOT) (test code = 21 U/L 13-40 1311222363) eGFR (test code = mL/min/1.73m2 2849260273) JESSICA (test code = JESSICA) Association of [...] tests). Lab Interpretation Abnormal (test code = 75003-2) [facility] 03:30:48 Test Item Value Reference Range Interpretation Comments LIPASE (test code = 9349152752) 205 U/L 0-220 Lab Interpretation (test code = Normal 09826-4) [facility] Whole [id number] 18:41:37 Test Item Value Reference Range Interpretation Comments LACTIC ACID (test code = 3.55 mmol/L 0.50-2.20 H 2996387586) Lab Interpretation (test code = Abnormal 62863-8) [facility] TEST, [id number] 20:37:15 Test Item Value Reference Range Interpretation Comments PREG SERUM (test code Negative = 0048311983) JESSICA (test code = JESSICA) Less than 10 IU/L. ?If low titer or ectopic is suspected, resubmit specimen in 48-[address] [facility]. METABOLIC PANEL (59481)2022-08-14 20:27:36 Test Item Value Reference Range Interpretation Comments NA (test code = 140 mmol/L 135-145 4647102497) K (test code = 2.8 mmol/L 3.5-5.0 LL 1672548982) CL (test code = 106 mmol/L 98-108 0339645760) CO2 TOTAL (test code = 13 mmol/L 23-31 L 7592828207) AGAP (test code = 2-16 H 2398406459) BUN (test code = 7 mg/dL 7-23 6678695978) GLUCOSE (test code = 181 mg/dL 70-110 H 8535795629) CREATININE (test code = 0.58 mg/dL 0.50-1.04 0997557480) TOTAL BILI (test code = 0.5 mg/dL 0.1-1.6 6456023015) CALCIUM (test code = 9.5 mg/dL 8.6-10.6 8370661224) T PROTEIN (test code = 8.1 g/dL 6.3-8.2 8398214992) ALBUMIN (test code = 5.1 g/dL 3.5-5.0 H 6360223754) ALK PHOS (test code = 76 U/L 34-122 4180190298) ALTv (test code = 34 U/L 5-35 1742-6) AST(SGOT) (test code = 24 U/L 13-40 2223157072) eGFR (test code = mL/min/1.73m2 9835864277) JESSICA (test code = JESSICA) Association of [...] tests). Lab Interpretation Abnormal (test code = 75574-1) [facility]ACTIV[facility] PARTIAL THRMPLAS [id number] 20:10:31 Test Item Value Reference Range Interpretation Comments APTT Patient (test See_Comment [Automat ed code = 3173-2) message] The system which generated this result transmitted reference range : 23 - 38 Seconds . The reference range was not used to interpr et this result as normal/abnormal . JESSICA (test code = JESSICA) The [facility] patient population mean normal value for aPTT is 30 seconds. Lab Interpretation Normal (test code = 74990-3) [facility] CampusPROTHROMBIN TIME / [id number] 20:08:27 Test Item Value Reference Range Interpretation [...] tions. Lab Interpretation (test Normal code = 21940-5) [facility] WITH [id number] 20:00:28 Test Item Value Reference Range Interpretation Comments WBC (test code = See_Comment H [Automated 9590-2) message] The sy stem which generated this [...] (test code = 36.1 fL 39.0-49.9 L 92301-8) RDW-CV (test code = 12.2 % 12.0-15.5 788-0) PLT (test code = See_Comment H [Automated 777-3) message] The sy stem which generated this result transmitted reference range : 166 - 358 10*3/ ?L. The reference r daniela was not used to interpret this result as normal/abnormal . MPV (test code = 9.7 fL 9.5-12.9 44468-2) NRBC/100 WBC (test See_Comment [Automat ed code = 3545768317) message] The system which generated this result transmitted reference range : 0.0 - 10.0 /100 WBCs. The refer ence range was not u sed to interpret th is result as normal/abnormal . NRBC x10^3 (test code See_Comment [Auto mated = 2689141039) message] The s ystem which generated this result transmitted reference range : 10*3/?L. The reference range was not used to interpret this result as normal/abnormal . GRAN MAT (NEUT) % 67.0 % (test code = 770-8) IMM GRAN % (test code 0.30 % = 8219543822) LYMPH % (test code = 28.0 % 736-9) MONO % (test code = 4.1 % 5905-5) EOS % (test code = 0.2 % 713-8) BASO % (test code = 0.4 % 706-2) GRAN MAT x10^3(ANC) 8.68 10*3/uL 1.88-7.09 H (test code = 0412050963) IMM GRAN x10^3 (test 0.04 10*3/uL 0.00-0.06 code = 2601393732) LYMPH x10^3 (test code 3.62 10*3/uL 1.32-3.29 H = 731-0) MONO x10^3 (test code 0.53 10*3/uL 0.33-0.92 = 742-7) EOS x10^3 (test code = 0.03 10*3/uL 0.03-0.39 711-2) BASO x10^3 (test code 0.05 10*3/uL 0.01-0.07 = 704-7) Lab Interpretation Abnormal (test code = 92342-4) [facility] Whole [id number] 19:58:01 Test Item Value Reference Range Interpretation Comments LACTIC ACID (test code = 6.64 mmol/L 0.50-2.20 H 0289811654) Lab Interpretation (test code = Abnormal 85918-2) [facility]"
--- NOTE | 2023-03-13 23:16 | EDPHYS ---
Physician Documentation [facility] Name: Sowmya Juarez Age: 37 yrs Sex: Female : 1985 Arrival Date: 03/13/2023 Time: 21:50 Bed 3 Private MD: ED Physician Axel Freeman HPI: 03/13 21:53 This 37 yrs old Female presents to ER via Unassigned with complaints of Shortness of kdr breath. 21:53 Patient has a history of mast cell activation syndrome. Periodically she will have kdr anaphylactic type reactions. The last time she had one was about a month ago. Tonight, a few minutes prior to calling EMS she had another episode occur. She gave herself 1 EpiPen injection at home. She did feel some relief but continues to have shortness of breath and wheezing. Patient is otherwise stable. EMS says her heart rate on scene was 150. Patient was given Solu-Medrol, Pepcid and Benadryl immediately. Patient stated this normally resolves her issues fairly quickly.. Onset: The symptoms/episode began/occurred just prior to arrival. Severity of symptoms: At their worst the symptoms were incapacitating in the emergency department the symptoms are unchanged. The patient has experienced similar episodes in the past, multiple times. The patient has not recently seen a physician. 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 ROS: 21:53 Constitutional: Negative for fever, chills, and weight loss, Eyes: Negative for injury, kdr pain, redness, and discharge, Neck: Negative for injury, pain, and swelling, Cardiovascular: Negative for chest pain, palpitations, and edema, Abdomen/GI: Negative for abdominal pain, nausea, vomiting, diarrhea, and constipation, Back: Negative for injury and pain, : Negative for injury, bleeding, discharge, and swelling, Skin: Negative for injury, rash, and discoloration, Neuro: Negative for headache, weakness, numbness, tingling, and seizure activity. Psych: Negative for depression, anxiety, suicide ideation, homicidal ideation, and hallucinations, Allergy/Immunology: Negative for hives, rash, and allergies, Endocrine: Negative for neck swelling, polydipsia, polyuria, polyphagia, and marked weight changes, Hematologic/Lymphatic: Negative for swollen nodes, abnormal bleeding, and unusual bruising. 21:53 Respiratory: Positive for shortness of breath, wheezing, expiratory. Exam: 21:53 Constitutional: This is a well developed, well nourished patient who is awake, alert, kdr and in moderate to severe distress. Head/Face: Normocephalic, atraumatic. Eyes: Pupils equal round and reactive to light, extra-ocular motions intact. Lids and lashes normal. Conjunctiva and sclera are non-icteric and not injected. Cornea within normal limits. Periorbital areas with no swelling, redness, or edema. Neck: Trachea midline, no thyromegaly or masses palpated, and no cervical lymphadenopathy. Supple, full range of motion without nuchal rigidity, or vertebral point tenderness. No Meningismus. Chest/axilla: Normal chest wall appearance and motion. Nontender with no deformity. No lesions are appreciated. Cardiovascular: Regular rate and rhythm with a normal S1 and S2. No gallops, murmurs, or rubs. Normal PMI, no JVD. No pulse deficits. Abdomen/GI: Soft, non-tender, with normal bowel sounds. No distension or tympany. No guarding or rebound. No evidence of tenderness throughout. Back: No spinal tenderness. No costovertebral tenderness. Full range of motion. Skin: Warm, dry with normal turgor. Normal color with no rashes, no lesions, and no evidence of cellulitis. MS/ Extremity: Pulses equal, no cyanosis. Neurovascular intact. Full, normal range of motion. Neuro: Awake and alert, GCS 15, oriented to person, place, time, and situation. Cranial nerves II-XII grossly intact. Motor strength 5/5 in all extremities. Sensory grossly intact. Cerebellar exam normal. Normal gait. Psych: Awake, alert, with orientation to person, place and time. Behavior, mood, and affect are within normal limits. 21:53 Respiratory: moderate respiratory distress is noted, severe repiratory distress is noted, Respirations: labored breathing, that is moderate, that is severe, accessory muscle usage, that is moderate, nasal flaring, that is moderate. Vital Signs: 21:59 BP 139 / 94; Pulse 130; Resp 22; Pulse Ox 98% on Nebulizer Mask; jb4 22:50 BP 119 / 68; Pulse 98; Resp 16; Pulse Ox 100% ; kl 23:24 BP 108 / 68; Pulse 75; Resp 15; Pulse Ox 99% on R/A; kl MDM: 23:15 Patient medically screened. kdr Administered Medications: 21:59 Drug: MethylPrednisoLONE IVP 125 mg Route: IVP; Site: right antecubital; jb4 21:59 Drug: diphenhydrAMINE IVP 25 mg Route: IVP; Site: right antecubital; jb4 21:59 Drug: Famotidine IVP 20 mg Route: IVP; Site: right antecubital; jb4 Disposition Summary: 03/13/23 23:15 Discharge Ordered Location: Home kdr Problem: an acute exacerbation kdr Symptoms: have improved kdr Condition: Stable kdr Diagnosis - Other mast cell activation disorder kdr - Idiopathic mast cell activation syndrome kdr Followup: kdr - With: Private Physician - When: 2 - 3 days - Reason: If symptoms return, Further diagnostic work-up, Recheck today's complaints, Continuance of care, Re-evaluation by your physician Discharge Instructions: - Discharge Summary Sheet kdr - Allergies, Adult, [id number]-rv-[id number] kdr Forms: - Medication Reconciliation Form kdr - Thank You Letter kdr - [email or web address] kdr Prescriptions: - Prednisone 20 mg Oral Tablet - take 2 tablets by ORAL route once daily for 5 days; 10 tablet; Refills: 0, kdr Product Selection Permitted Signatures: Isabela De Los Santos, RN RN Axel Ruffin MD MD kdr Vincent Gardner RN RN jb4
--- NOTE | 2023-03-13 23:16 | ER ---
Nurse's Notes [facility] Name: Sowmya Juarez Age: 37 yrs Sex: Female : 1985 Arrival Date: 03/13/2023 Time: 21:50 Bed 3 Private MD: Diagnosis: Other mast cell activation disorder;Idiopathic mast cell activation syndrome Presentation: 03/13 21:59 Chief complaint: EMS states: Pt reports having an anaphylaxis like reaction. jb4 Administered Epi pen to self. 0.3 mg, and .5 ampule of albuterol with no relief. Was given A:A treatment 1:1 with no relief. No hives, or angio edema noted. Coronavirus screen: At this time, the client does not indicate any symptoms associated with coronavirus-19. Ebola Screen: No symptoms or risks identified at this time. Initial Sepsis Screen: Does the patient meet any 2 criteria? No. Patient's initial sepsis screen is negative. Does the patient have a suspected source of infection? No. Patient's initial sepsis screen is negative. Risk Assessment: Do you want to hurt yourself or someone else? Patient reports no desire to harm self or others. Onset of symptoms was March 13, 2023. Transition of care: patient was not received from another setting of care. 21:59 Method Of Arrival: EMS: [facility] 21:59 Acuity: KALYN 3 jb4 Triage Assessment: 22:02 General: Appears distressed, uncomfortable, Behavior is cooperative, anxious. Pain: jb4 Denies pain. EENT: No signs and/or symptoms were reported regarding the EENT system. Throat is clear. Neuro: Level of Consciousness is awake, alert, obeys commands, Oriented to person, place, time, situation. Cardiovascular: Patient's skin is warm and dry. Respiratory: Airway is patent Respiratory effort is even, labored, Respiratory pattern is symmetrical, tachypnea. GI: No signs and/or symptoms were reported involving the gastrointestinal system. : No signs and/or symptoms were reported regarding the genitourinary system. Derm: Skin is intact, Skin is pink, warm \T\ dry. Musculoskeletal: Circulation, motion, and sensation intact. Range of motion: intact in all extremities. 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 Screenin:23 [facility] ED Fall Risk Assessment (Adult) History of falling in the last 3 months, kl including since admission No falls in past 3 months (0 pts) Confusion or Disorientation No (0 pts) Intoxicated or Sedated No (0 pts) Impaired Gait No (0 pts) Mobility Assist Device Used No (0 pt) Altered Elimination No (0 pt) Score/Fall Risk Level 0 - 2 = Low Risk Oriented to surroundings, Maintained a safe environment. Abuse screen: Denies threats or abuse. Nutritional screening: No deficits noted. Tuberculosis screening: No symptoms or risk factors identified. Assessment: 22:50 Reassessment: Patient appears in no apparent distress at this time. Patient is alert, kl oriented x 3, equal unlabored respirations, skin warm/dry/pink. Patient states feeling better. Patient states symptoms have improved. Vital Signs: 21:59 BP 139 / 94; Pulse 130; Resp 22; Pulse Ox 98% on Nebulizer Mask; jb4 22:50 BP 119 / 68; Pulse 98; Resp 16; Pulse Ox 100% ; kl 23:24 BP 108 / 68; Pulse 75; Resp 15; Pulse Ox 99% on R/A; kl ED Course: 21:51 Patient arrived in ED. rv1 21:52 Axel Freeman MD is Attending Physician. kdr 21:55 Inserted saline lock: 20 gauge in right antecubital area, using aseptic technique. pf1 Blood collected. 22:01 Triage completed. jb4 22:54 Vincent Gardner, BHAVIK is Primary Nurse. jb4 23:24 No provider procedures requiring assistance completed. IV discontinued, intact, kl bleeding controlled, No redness/swelling at site. Pressure dressing applied. 23:24 Arm band placed on right wrist. kl 23:24 Patient has correct armband on for positive identification. kl Administered Medications: 21:59 Drug: MethylPrednisoLONE IVP 125 mg Route: IVP; Site: right antecubital; jb4 21:59 Drug: diphenhydrAMINE IVP 25 mg Route: IVP; Site: right antecubital; jb4 21:59 Drug: Famotidine IVP 20 mg Route: IVP; Site: right antecubital; jb4 Medication: 23:24 VIS not applicable for this client. Outcome: 23:15 Discharge ordered by . kdr 23:22 Discharged to home ambulatory. kl 23:22 Condition: good 23:22 Discharge instructions given to patient, Instructed on discharge instructions, follow up and referral plans. Demonstrated understanding of instructions, follow-up care, medications, Prescriptions given X 1. 23:26 Patient left the ED. kl Signatures: Isabela De Los Santos RN RN Axel Ruffin MD MD kdr Bryson, James, RN RN jb4 Angely Hernandez RN RN 1 Audelia Henao [facility]
== END 2023-03-13 23:26 | disposition home or self-care (01) ==
LOC: ER 21:50
DX: D89.49 Other mast cell activation disorder (principal); D89.42 Idiopathic mast cell activation syndrome; Z88.8 Allergy status to other drugs, medicaments and biological substances
CPT/HCPCS: 96375; 96374; 99284; J1200; J2930

== ENCOUNTER 2023-05-22 16:53 | Emergency (ER) | payer OTHER ==
--- OUTSIDE RECORDS SUMMARY | 2023-05-22 17:10 | XMS REPORT | Continuity of Care Document ---
:1985 Author Organization [facility] t Address [address] [place] [address] Care Team Providers Name Role Phone Karma Jackson Primary Care Physician MARIUM DAWSON Attending Clinician Unavailable CATRACHITA MERCADO Attending Clinician Unavailable Catrachita Mercado MD Attending Clinician [facility]c-Lab Attending Clinician Unavailable PAIGE JONES Attending Clinician Unavailable Paige Tate Attending Clinician Unknown, Attending Attending Clinician Unavailable AMANDA MCKEON Attending Clinician Unavailable Amanda Mckeon MD Attending Clinician RACHNA BUSH Attending Clinician Unavailable Rachna Bush MD Attending Clinician Doctor Unassigned, [place] Attending Clinician Unavailable MORGAN VARGAS Attending Clinician Unavailable Morgan Vargas DO Attending Clinician MENG GALICIA Attending Clinician Unavailable Meng Galicia MD Attending Clinician AMANDA POWER Attending Clinician Unavailable Amanda Power DO Attending Clinician Nurse, [facility] Int Med Allergy Attending Clinician Unavailable Lorene Roman MD Attending Clinician [phone] LORENE ROMAN Attending Clinician Unavailable Marley Tello RN Attending Clinician Unavailable ELIEZER KLEIN Attending Clinician Unavailable Cam BURKETT, Frandy Muhammad Attending Clinician Eliezer Klein DO Attending Clinician Genaro Eubanks MD Attending Clinician Christopher [facility], [place] Attending Clinician Unavailable Juan BURKETT, Rosio Attending Clinician ELAINECristofer PALM Attending Clinician Unavailable Elaine PACCristofer Attending Clinician Pob, [facility] Main Attending Clinician Unavailable Jones [facility], [place] Attending Clinician Unavailable Samir BURKETT, Marium Attending [...] Type Policy Number Effective Date Expiration Date Dany mendoza MEDICARE PART A [id number] 2014 \\T\\ B 00:00:00 MEDICAID OF [place] [id number] 2014 00:00:00 Problems Condition Condition Condition Status Onset Resolution Last Treating Co mments Source Name Details Category Date Date Treatment Clinician Date Anaphylaxi Anaphylaxi Disease Active 2021-09 U nivers s, initial s, initial 2-09 [place] [facility] 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 00:00: [facility] Angioedema Angioedema Disease Active U nivers , initial , initial 2-09 [place] [facility] Allergic Allergic Disease Active Unive rs reaction, reaction, 6-25 ity of initial initial 00:00: [place] encounter encounter 00 [facility] Branch Post-opera Post-opera Disease Active U nivers tive state tive state 6-25 it y of 00:00: [facility] S/P S/P Disease Active [...] of most most 00:00: g of this [place] recent recent 00 note Medical episode episode might be Branch depressed depressed different from the original. 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 Allergies, Adverse Reactions, Alerts Allergy Allergy [...] tobacco Passive smoker Un iversity of use [facility] Branch History [facility] University o f [facility] University o f Alcohol Std Drinks [facility] History [facility] o f Alcohol Binge [place] [facility] Gender identity Universit y of [facility] Sexual orientation Univer sity of [facility] Cigarettes smoked 2023-02-04 2023-02-04 Univers ity of current (pack per 00:00:00 00:00:00 [facility]) - Reported Branch Cigarette 2023-02-04 2023-02-04 University of pack-years 00:00:00 00:00:00 [facility] Tobacco use and 2023-02-04 2023-02-04 Smokeless tobacco Un iversity of exposure 00:00:00 00:00:00 non-user [facility] Alcohol intake 2023-02-04 2023-02-04 Current drinker Unive rsity of 00:00:00 00:00:00 of alcohol [facility] (finding) Branch Exposure to 2022-12-23 2023-01-02 Not sure University SARS-CoV-2 (event) 00:00:00 09:43:00 [facility] History of Social 2021-02-21 2021-02-21 Univers ity of function 00:00:00 00:00:00 [facility] Alcohol Comment 2018-05-11 2018-05-11 Occasional Universit y of 00:00:00 00:00:00 [facility] Sex [birth year] At [birth year] Universit y of 00:00:00 00:00:00 [facility] Smoking Status Start Date Stop Date Source Ex-smoker 2023-02-04 00:00:00 2023-02-04 [facility] Medications Ordered Filled Start Stop Current Ordering Indication Dosage Frequency Signature Comments Components Source Medication Medication Date Date Medication? Clinician (SIG) Name Name EPINEPHrine Yes [id number] .3mg 0.3 mL by Univers (EPIPEN) 02-04 Intramuscu ity o f 0.3 mg/0.3 00:00: [place] route [place] mL 00 as needed Medical injection (anaphylax Bran ch is). famotidine Yes [id number] 20mg Take 1 U nivers (PEPCID) 20 6-01 tablet by ity of mg tablet 00:00: mouth in [facility] 00 the Medical morning Branch and 1 tablet in the evening. montelukast Yes [id number] 10mg Take 1 Univers 10 mg 6-01 tablet by ity of tablet 00:00: mouth in [place] the Medical morning. Branch ketotifen 1 Yes [id number] 2mg Take 2 Univers MG capsule 6-01 capsules ity o f 00:00: by mouth in the Medical morning Branch and 2 capsules in the evening. predniSONE Yes [id number] Take 3 U nivers 20 mg 6-01 tablets PO ity of tablet 00:00: with [place] 00 Pepcid and Medical Benadryl Branch in case of an Allergic Reaction EPINEPHrine Yes [id number] .3mg 0.3 mL by Univers (EPIPEN) 6-01 Intramuscu ity o f 0.3 mg/0.3 00:00: [place] route [place] mL 00 as needed Medical injection (anaphylax Bran ch is). famotidine 2022-0 Yes [id number] 20mg Take 1 U nivers (PEPCID) 20 6-01 tablet by ity of mg tablet 00:00: mouth in [facility] the Medical morning Branch and 1 tablet in the evening. montelukast 2022-0 Yes [id number] 10mg Take 1 Univers 10 mg 6-01 tablet by ity of tablet 00:00: mouth in [place] the Medical morning. Branch ketotifen 1 2022-0 Yes [id number] 2mg Take 2 Univers MG capsule 6-01 capsules ity o f 00:00: by mouth in the Medical morning Branch and 2 capsules in the evening. predniSONE 2022-0 Yes [id number] Take 3 U nivers 20 mg 6-01 tablets PO ity of tablet 00:00: with [place] [address] Pepcid and Medical Benadryl Branch in case of an Allergic Reaction EPINEPHrine 2022-0 Yes [id number] .3mg 0.3 mL by Univers (EPIPEN) 6-01 Intramuscu ity o f 0.3 mg/0.3 00:00: [place] route [place] mL 00 as needed Medical injection (anaphylax Bran ch is). famotidine 2022-0 Yes [id number] 20mg Take 1 U nivers (PEPCID) 20 6-01 tablet by ity of mg tablet 00:00: mouth in [facility] the Medical morning Branch and 1 tablet in the evening. montelukast 2022-0 Yes [id number] 10mg Take 1 Univers 10 mg 6-01 tablet by ity of tablet 00:00: mouth in [place] the Medical morning. Branch ketotifen 1 2022-0 Yes [id number] 2mg Take 2 Univers MG capsule 6-01 capsules ity o f 00:00: by mouth in the Medical morning Branch and 2 capsules in the evening. predniSONE 2022-0 Yes [id number] Take 3 U nivers 20 mg 6-01 tablets PO ity of tablet 00:00: with [place] [address] Pepcid and Medical Benadryl Branch in case of an Allergic Reaction EPINEPHrine 2022-0 Yes [id number] .3mg 0.3 mL by Univers (EPIPEN) 6-01 Intramuscu ity o f 0.3 mg/0.3 00:00: [place] 00 as needed Medical injection (anaphylax Bran ch is). famotidine 2022-0 Yes [id number] 20mg Take 1 U nivers (PEPCID) 20 6-01 tablet by ity of mg tablet 00:00: [facility] Branch and 1 tablet in the evening. montelukast 2022-0 Yes [id number] 10mg Take 1 Univers 10 mg 6-01 tablet by ity of tablet 00:00: mouth in [place] the Medical morning. Branch ketotifen 1 Yes [id number] 2mg Take 2 Univers MG capsule 6-01 capsules ity o f 00:00: by mouth 00 in the Medical morning Branch and 2 capsules in the evening. predniSONE 0 Yes [id number] Take 3 U nivers 20 mg 6-01 tablets PO ity of tablet 00:00: with [place] 00 Pepcid and Medical Benadryl Branch in case of an Allergic Reaction EPINEPHrine Yes [id number] .3mg 0.3 mL by Univers (EPIPEN) 6-01 Intramuscu ity o f 0.3 mg/0.3 00:00: [place] route [place] mL 00 as needed Medical injection (anaphylax Bran ch is). famotidine 0 Yes [id number] 20mg Take 1 U nivers (PEPCID) 20 6-01 tablet by ity of mg tablet 00:00: mouth in [facility] the Medical morning Branch and 1 tablet in the evening. montelukast 0 Yes [id number] 10mg Take 1 Univers 10 mg 6-01 tablet by ity of tablet 00:00: mouth in [place] the Medical morning. Branch ketotifen 1 Yes [id number] 2mg Take 2 Univers MG capsule 6-01 capsules ity o f 00:00: by mouth 00 in the Medical morning Branch and 2 capsules in the evening. predniSONE Yes Take 3 Unive rs 20 mg 6-01 tablets PO ity of tablet 00:00: with [place] [address] Pepcid and Medical Benadryl Branch in case of an Allergic Reaction EPINEPHrine 0 Yes [id number] .3mg 0.3 mL by Univers (EPIPEN) 6-01 Intramuscu ity o f 0.3 mg/0.3 00:00: lar route [place] mL 00 as needed Medical injection (anaphylax Bran ch is). famotidine 0 Yes [id number] 20mg Take 1 U nivers (PEPCID) 20 6-01 tablet by ity of mg tablet 00:00: mouth in [facility] 00 the Medical morning Branch and 1 tablet in the evening. montelukast 0 Yes [id number] 10mg Take 1 Univers 10 mg 6-01 tablet by ity of tablet 00:00: mouth in [place] 00 the Medical morning. Branch ketotifen 1 Yes [id number] 2mg Take 2 Univers MG capsule 6-01 capsules ity o f 00:00: by mouth 00 in the Medical morning Branch and 2 capsules in the evening. predniSONE Yes Take 3 Unive rs 20 mg 6- tablets PO ity of tablet 00:00: with [place] 00 Pepcid and Medical Benadryl Branch in case of an Allergic Reaction dexamethaso 2022-0 3- No [id number] 10mg U nivers ne 01-02 ity of (DECADRON) 14:54: 14:56 [place] injection 00 :00 Medical 10 mg Branch dexamethaso 2022-0 2022- No [id number] 10mg 10 mg, Univers ne 01-02 Intramuscu ity of (DECADRON) 14:54: 14:56 lar, ONCE, [place] injection 00 :00 1 dose, On Medi abhishek 10 mg Sat Branch 01/02/23 at 1000, Routine methylPREDN 2022-0 Yes [id number] follow Univers ISolone 01-02 package ity of (MEDROL, 00:00: directions [place] EHSAN,) 4 mg 00 Medical tablets Branch methylPREDN 2022-0 Yes [id number] follow Univers ISolone 01-02 package ity of (MEDROL, 00:00: directions [place] EHSAN,) 4 mg 00 Medical tablets Branch methylPREDN 2022-0 2022- No [id number] follow Univers ISolone 01-02 package ity of (MEDROL, 00:00: 00:00 directions [place] EHSAN,) 4 mg 00 :00 Medical tablets Branch methylPREDN 2022-0 3- No [id number] follow Univers ISolone 01-02 package ity of (MEDROL, 00:00: 00:00 directions [place] EHSAN,) 4 mg 00 :00 Medical tablets Branch methylPREDN 2022- No [id number] follow Univers ISolone 01-02 package ity of (MEDROL, 00:00: 00:00 directions [place] EHSAN,) 4 mg 00 :00 Medical tablets Branch benzonatate 2022-2022- No [id number] 200mg Take 1 Univers 200 mg 01-0210 capsule by ity of capsule 00:00: 04:59 mouth 3 [place] 00 :00 (three) Medical times Branch daily as needed for Cough for up to 10 days. benzonatate 2022-0 2022- No [id number] 200mg Take 1 Univers 200 mg 01-0210 capsule by ity of capsule 00:00: 04:59 mouth 3 [place] 00 :00 (three) Medical times Branch daily as needed for Cough for up to 10 days. doxycycline 2022-0 2022- No [id number] 100mg Take 1 Univers hyclate 100 01-02-07 tablet by it y of mg tablet 00:00: 04:59 mouth in [place] 00 :00 the Medical morning Branch and 1 tablet in the evening. Do all this for 7 days. doxycycline 2022-0 2022- No [id number] 100mg Take 1 Univers hyclate 100 01-02-07 tablet by it y of mg tablet 00:00: 04:59 mouth in [place] 00 :00 the Medical morning Branch and 1 tablet in the evening. Do all this for 7 days. codeine-gua 2022-0 2022- No 10mL Take 10 mL Univers ifenesin 01-02-05 by mouth ity of 10-100 mg/5 00:00: 04:59 every 6 [place] mL oral 00 :00 (six) Medical solution hours as Branch needed for Cough for up to 5 days. Indication s: cough codeine-gua 2022-0 2022- No 10mL Take 10 mL Univers ifenesin 01-02 05-05 by mouth ity of 10-100 mg/5 00:00: 04:59 every 6 [place] mL oral 00 :00 (six) Medical solution hours as Branch needed for Cough for up to 5 days. Indication s: cough risperiDONE 2023-0 Yes 3mg Take 1 Univ ers 3 mg tablet 4-24 tablet by ity of 00:00: mouth at [place] [address] bedtime. Medical Branch risperiDONE 3-0 Yes 3mg Take 1 Univ ers 3 mg tablet 4-24 tablet by ity of 00:00: mouth at [place] [address] bedtime. Medical Branch risperiDONE 2023-0 Yes 3mg Take 1 Univ ers 3 mg tablet 4-24 tablet by ity of 00:00: mouth at [place] [address] bedtime. Medical Branch risperiDONE 2023-0 Yes 3mg Take 1 Univ ers 3 mg tablet 4-24 tablet by ity of 00:00: mouth at [place] [address] bedtime. Medical Branch risperiDONE 3-0 Yes 3mg Take 1 Univ ers 3 mg tablet 4-24 tablet by ity of 00:00: mouth at [place] [address] bedtime. Medical Branch risperiDONE 3-0 Yes 3mg Take 1 Univ ers 3 mg tablet 4-24 tablet by ity of 00:00: mouth at [place] [address] bedtime. Medical Branch risperiDONE 3-0 Yes 3mg Take 1 Univ ers 3 mg tablet 4-24 tablet by ity of 00:00: mouth at [place] [address] bedtime. Medical Branch risperiDONE 3-0 Yes 3mg Take 1 Univ ers 3 mg tablet 4-24 tablet by ity of 00:00: mouth at [place] [address] bedtime. Medical Branch DULoxetine 3-0 Yes Univers 30 mg 4-19 ity of capsule 00:00: [place] 00 Medical Branch DULoxetine 3-0 Yes Univers 30 mg 4-19 ity of capsule 00:00: [place] 00 Medical Branch DULoxetine 3-0 Yes Univers 30 mg 4-19 ity of capsule 00:00: [place] 00 Medical Branch DULoxetine 3-0 Yes Univers 30 mg 4-19 ity of capsule 00:00: [place] 00 Medical Branch DULoxetine 2023-0 Yes Univers 30 mg 4-19 ity of capsule 00:00: [place] 00 Medical Branch DULoxetine 3-0 Yes Univers 30 mg 4-19 ity of capsule 00:00: [place] 00 Medical Branch DULoxetine 3-0 Yes Univers 30 mg 4-19 ity of capsule 00:00: [place] 00 Medical Branch DULoxetine 3-0 Yes Univers 30 mg 4-19 ity of capsule 00:00: [place] 00 Medical Branch famotidine 3-0 2023- No 20mg 20 mg, Univ ers (PEPCID 12-07 Slow IV ity of (PF)) 18:15: 17:23 [...] No 50mg 50 mg, Uni vers MINE 12-07 Slow IV ity of (BENADRYL) 17:15: 17:12 [place], [place] injection 00 :00 ONCE, 1 Medical 50 mg dose, On Branch Wed12/07/22 at 1215, STAT dexamethaso 2022- No 10mg 10 mg, Uni vers ne sod phos 12-07 Slow IV ity of PF 17:15: 17:12 [place], [place] injection 00 :00 ONCE, 1 Medical 10 mg dose, On Branch Wed12/07/22 at 1215, 1 mL famotidine Yes [id number] Take 2 U nivers (PEPCID) 20 4-03 tablets PO it y of mg tablet 00:00: in case of [place] 00 Allergic Medical Reaction Branch diphenhydrA 0 Yes [id number] Take 2 Univers MINE 4-03 tablets PO ity of (BENADRYL) 00:00: with [place] 25 mg 00 Prednisone Medical capsule and Pepcid Branch in case of an Allergic Reaction predniSONE 0 Yes [id number] Take 3 U nivers 20 mg 4-03 tablets PO ity of tablet 00:00: with [place] 00 Pepcid and Medical Benadryl Branch in case of an Allergic Reaction albuterol 0 Yes [id number] 2{puff} Inhale 2 Univers 90 4-03 Puffs ity of mcg/actuati 00:00: every 4 [place] on inhaler 00 (four) Medical hours as Branch needed for Wheezing, Shortness of Breath or Bronchospa sm (Allergic Reaction). famotidine 2022-0 Yes [id number] Take 2 U nivers (PEPCID) 20 4-03 tablets PO it y of mg tablet 00:00: in case of [place] 00 Allergic Medical Reaction Branch diphenhydrA 2022-0 Yes [id number] Take 2 Univers MINE 4-03 tablets PO ity of (BENADRYL) 00:00: with [place] 25 mg 00 Prednisone Medical capsule and Pepcid Branch in case of an Allergic Reaction predniSONE 2022-0 Yes [id number] Take 3 U nivers 20 mg 4-03 tablets PO ity of tablet 00:00: with [place] 00 Pepcid and Medical Benadryl Branch in case of an Allergic Reaction albuterol 2022-0 Yes [id number] 2{puff} Inhale 2 Univers 90 4-03 Puffs ity of mcg/actuati 00:00: every 4 [place] on inhaler 00 (four) Medical hours as Branch needed for Wheezing, Shortness of Breath or Bronchospa sm (Allergic Reaction). famotidine 2022-0 Yes [id number] Take 2 U nivers (PEPCID) 20 4-03 tablets PO it y of mg tablet 00:00: in case of [place] 00 Allergic Medical Reaction Branch diphenhydrA 2022-0 Yes [id number] Take 2 Univers MINE 4-03 tablets PO ity of (BENADRYL) 00:00: with [place] 25 mg 00 Prednisone Medical capsule and Pepcid Branch in case of an Allergic Reaction predniSONE 2022-0 Yes [id number] Take 3 U nivers 20 mg 4-03 tablets PO ity of tablet 00:00: with [place] 00 Pepcid and Medical Benadryl Branch in case of an Allergic Reaction albuterol 2022-0 Yes [id number] 2{puff} Inhale 2 Univers 90 4-03 Puffs ity of mcg/actuati 00:00: every 4 [place] on inhaler 00 (four) Medical hours as Branch needed for Wheezing, Shortness of Breath or Bronchospa sm (Allergic Reaction). diphenhydrA 2022-0 Yes [id number] Take 2 Univers MINE 4-03 tablets PO ity of (BENADRYL) 00:00: with [place] 25 mg 00 Prednisone Medical capsule and Pepcid Branch in case of an Allergic Reaction albuterol 2023-0 Yes [id number] 2{puff} Inhale 2 Univers 90 4-03 Puffs ity of mcg/actuati 00:00: every 4 [place] on inhaler 00 (four) Medical hours as Branch needed for Wheezing, Shortness of Breath or Bronchospa sm (Allergic Reaction). diphenhydrA Yes [id number] Take 2 Univers MINE 4-03 tablets PO ity of (BENADRYL) 00:00: with [place] 25 mg 00 Prednisone Medical capsule and Pepcid Branch in case of an Allergic Reaction albuterol 0 Yes [id number] 2{puff} Inhale 2 Univers 90 4-03 Puffs ity of mcg/actuati 00:00: every 4 [place] on inhaler 00 (four) Medical hours as Branch needed for Wheezing, Shortness of Breath or Bronchospa sm (Allergic Reaction). diphenhydrA Yes [id number] Take 2 Univers MINE 4-03 tablets PO ity of (BENADRYL) 00:00: with [place] 25 mg 00 Prednisone Medical capsule and Pepcid Branch in case of an Allergic Reaction albuterol 0 Yes [id number] 2{puff} Inhale 2 Univers 90 4-03 Puffs ity of mcg/actuati 00:00: every 4 [place] on inhaler 00 (four) Medical hours as Branch needed for Wheezing, Shortness of Breath or Bronchospa sm (Allergic Reaction). diphenhydrA Yes [id number] Take 2 Univers MINE 4-03 tablets PO ity of (BENADRYL) 00:00: with [place] 25 mg 00 Prednisone Medical capsule and Pepcid Branch in case of an Allergic Reaction albuterol 0 Yes [id number] 2{puff} Inhale 2 Univers 90 4-03 Puffs ity of mcg/actuati 00:00: every 4 [place] on inhaler 00 (four) Medical hours as Branch needed for Wheezing, Shortness of Breath or Bronchospa sm (Allergic Reaction). diphenhydrA 0 Yes [id number] Take 2 Univers MINE 4-03 tablets PO ity of (BENADRYL) 00:00: with [place] 25 mg 00 Prednisone Medical capsule and Pepcid Branch in case of an Allergic Reaction albuterol 0 Yes [id number] 2{puff} Inhale 2 Univers 90 4-03 Puffs ity of mcg/actuati 00:00: every 4 [place] on inhaler 00 (four) Medical hours as Branch needed for Wheezing, Shortness of Breath or Bronchospa sm (Allergic Reaction). diphenhydrA Yes [id number] Take 2 Univers MINE 4-03 tablets PO ity of (BENADRYL) 00:00: with [place] 25 mg 00 Prednisone Medical capsule and Pepcid Branch in case of an Allergic Reaction albuterol Yes [id number] 2{puff} Inhale 2 Univers 90 4-03 Puffs ity of mcg/actuati 00:00: every 4 [place] on inhaler 00 (four) Medical hours as Branch needed for Wheezing, Shortness of Breath or Bronchospa sm (Allergic Reaction). famotidine 2022- No [id number] Take 2 Univers (PEPCID) 20 4-11 09-01 tablets PO i ty of mg tablet 00:00: 00:00 in case of [place] 00 :00 Allergic Medical Reaction Branch predniSONE 2022- No [id number] Take 3 Univers 20 mg -11 09- tablets PO ity of tablet 00:00: 00:00 with [place] 00 :00 Pepcid and Medical Benadryl Branch in case of an Allergic Reaction famotidine 2022- No [id number] Take 2 Univers (PEPCID) 20 -11 09-01 tablets PO i ty of mg tablet 00:00: 00:00 in case of [place] 00 :00 Allergic Medical Reaction Branch predniSONE 2022- No [id number] Take 3 Univers 20 mg - 06-01 tablets PO ity of tablet 00:00: 00:00 with [place] 00 :00 Pepcid and Medical Benadryl Branch in case of an Allergic Reaction famotidine 2022- No [id number] Take 2 Univers (PEPCID) 20 -11 09-01 tablets PO i ty of mg tablet 00:00: 00:00 in case of [place] 00 :00 Allergic Medical Reaction Branch predniSONE 2022-0 2022- No [id number] Take 3 Univers 20 mg 4- 06-01 tablets PO ity of tablet 00:00: 00:00 with [place] 00 :00 Pepcid and Medical [facility] Branch in case of an Allergic Reaction [...] by ity of tablet 00:00: mouth in [place] 00 the Medical morning. Branch allopurinoL 2023-0 Yes 300mg Take 1 Uni vers 300 mg 3-08 tablet by ity of tablet 00:00: mouth in [place] the Medical morning. Branch allopurinoL 2023-0 Yes 300mg Take 1 Uni vers 300 mg 3-08 tablet by ity of tablet 00:00: mouth in [place] 00 the Medical morning. Branch allopurinoL 2023-0 Yes 300mg Take 1 Uni vers 300 mg 3-08 tablet by ity of tablet 00:00: mouth in [place] 00 the Medical morning. Branch allopurinoL 2023-0 Yes 300mg Take 1 Uni vers 300 mg 3-08 tablet by ity of tablet 00:00: mouth in [place] 00 the Medical morning. Branch allopurinoL 2023-0 Yes 300mg Take 1 Uni vers 300 mg 3-08 tablet by ity of tablet 00:00: mouth in [place] 00 the Medical morning. Branch allopurinoL 2023-0 Yes 300mg Take 1 Uni vers 300 mg 3-08 tablet by ity of tablet 00:00: mouth in [place] 00 the Medical morning. Branch allopurinoL 2023-0 Yes 300mg Take 1 Uni vers 300 mg 3-08 tablet by ity of tablet 00:00: mouth in [place] 00 the Medical morning. Branch doxycycline 2023-0 Yes [id number] 100mg Take 1 Univers hyclate 100 3-02 capsule by it y of mg capsule 00:00: mouth [place] 00 every 12 Medical (twelve) Branch hours. doxycycline 2023-0 Yes [id number] 100mg Take 1 Univers hyclate 100 3-02 capsule by it y of mg capsule 00:00: mouth [place] 00 every 12 Medical (twelve) Branch hours. doxycycline 2023-0 Yes [id number] 100mg Take 1 Univers hyclate 100 3-02 capsule by it y of mg capsule 00:00: mouth [place] 00 every 12 Medical (twelve) Branch hours. doxycycline 2023-0 Yes [id number] 100mg Take 1 Univers hyclate 100 3-02 capsule by it y of mg capsule 00:00: mouth [place] 00 every 12 Medical (twelve) Branch hours. doxycycline 2023-0 Yes [id number] 100mg Take 1 Univers hyclate 100 3-02 capsule by it y of mg capsule 00:00: mouth [place] 00 every 12 Medical (twelve) Branch hours. doxycycline 2023-0 Yes [id number] 100mg Take 1 Univers hyclate 100 3-02 capsule by it y of mg capsule 00:00: mouth [place] 00 every 12 Medical (twelve) Branch hours. doxycycline 2023-0 Yes [id number] 100mg Take 1 Univers hyclate 100 3-02 capsule by it y of mg capsule 00:00: mouth [place] 00 every 12 Medical (twelve) Branch hours. doxycycline 2023-0 Yes [id number] 100mg Take 1 Univers hyclate 100 3-02 capsule by it y of mg capsule 00:00: mouth [place] 00 every 12 Medical (twelve) Branch hours. doxycycline 2023-0 Yes [id number] 100mg Take 1 Univers hyclate 100 3-02 capsule by it y of mg capsule 00:00: mouth [place] 00 every 12 Medical (twelve) Branch hours. doxycycline 2023-0 Yes [id number] 100mg Take 1 Univers hyclate 100 3-02 capsule by it y of mg capsule 00:00: mouth [place] 00 every 12 Medical (twelve) Branch hours. doxycycline 2023-0 Yes [id number] 100mg Take 1 Univers hyclate 100 3-02 capsule by it y of mg capsule 00:00: mouth [place] 00 every 12 Medical (twelve) Branch hours. doxycycline 2023-0 Yes [id number] 100mg Take 1 Univers hyclate 100 3-02 capsule by it y of mg capsule 00:00: mouth [place] 00 every 12 Medical (twelve) Branch hours. doxycycline 2023-0 Yes [id number] 100mg Take 1 Univers hyclate 100 3-02 capsule by it y of mg capsule 00:00: mouth [place] 00 every 12 Medical (twelve) Branch hours. doxycycline 2023-0 Yes [id number] 100mg Take 1 Univers hyclate 100 3-02 capsule by it y of mg capsule 00:00: mouth [place] 00 every 12 Medical (twelve) Branch hours. doxycycline 2023-0 Yes [id number] 100mg Take 1 [facility] hyclate 100 3-02 capsule by it y of mg capsule 00:00: mouth [place] 00 every 12 Medical (twelve) Branch hours. doxycycline 2023-0 Yes [id number] 100mg Take 1 [facility] hyclate 100 3-02 capsule by it y of mg capsule 00:00: mouth [place] 00 every 12 Medical (twelve) Branch hours. doxycycline 2023-0 Yes [id number] 100mg Take 1 [facility] hyclate 100 3-02 capsule by it y of mg capsule 00:00: mouth [place] 00 every 12 Medical (twelve) Branch hours. doxycycline 2023-0 Yes [id number] 100mg Take 1 [facility] hyclate 100 3-02 capsule by it y of mg capsule 00:00: mouth [place] 00 every 12 Medical (twelve) Branch hours. doxycycline 2023-0 Yes [id number] 100mg Take 1 [facility] hyclate 100 3-02 capsule by it y of mg capsule 00:00: mouth [place] 00 every 12 Medical (twelve) Branch hours. doxycycline 2023-0 Yes [id number] 100mg Take 1 [facility] hyclate 100 3-02 capsule by it y of mg capsule 00:00: mouth [place] 00 every 12 Medical (twelve) Branch hours. doxycycline 2023-0 Yes [id number] 100mg Take 1 [facility] hyclate 100 3-02 capsule by it y of mg capsule 00:00: mouth [place] 00 every 12 Medical (twelve) Branch hours. doxycycline 2023-0 Yes [id number] 100mg Take 1 [facility] hyclate 100 3-02 capsule by it y of mg capsule 00:00: mouth [place] 00 every 12 Medical (twelve) Branch hours. levalbutero 0 Yes 1.25mg 1.25 mg, Univers l (XOPENEX) 09-27 Inhalation it y of nebulizer 14:00: , TID, [place] solution 00 First dose Medic al 1.25 mg on [place] [facility] 09/27/22 at 0800, Until Discontinu ed, Routine ipratropium 0 Yes 3mL 3 mL, Unive rs -albuteroL 09-27 Inhalation ity of (DUONEB) 14:00: , QID, [place] 0.5 mg-3 00 First dose Medic al mg(2.5 mg on [place] Branch base)/3 mL 09/27/22 at nebulizer 0800, solution 3 Until mL Discontinu ed, Routine methylpredn 0 Yes 125mg 125 mg, Un yesenia isolone sod 09-27 Intravenou it y of succ 12:00: s, Q6H, [place] (SOLU-MEDRO 00 First dose Me dical L) on [place] [facility] injection 09/27/22 at 125 mg 0600, Until Discontinu ed, Routine LORazepam 0 2022- No 1mg 1 mg, Slow U nivers (ATIVAN) 09-2722 IV Push, ity of injection 1 07:30: 07:20 ONCE, 1 [place] mg 00 :00 dose, On Medical [place] [facility] 09/27/22 at 0130, STAT racEPINEPHr 2022-2022- No .5mL 0.5 mL, Un yesenia ine (S2 09-27 Inhalation ity o f RACEMIC) 07:00: 07:04 , ONCE, 1 [place] 2.25 % 00 :00 dose, On Medical nebulizer [facility] solution 09/27/22 at 0.5 mL 0100, STAT famotidine 2022- No 20mg 20 mg, Univ ers (PEPCID 09-27 Slow IV ity of (PF)) 07:00: 07:05 Push, [place] injection 00 :00 ONCE, 1 Medical 20 mg dose, On [facility] 09/27/22 at 0100, SHEEBA diphenhydrA 2022- No 50mg 50 mg, Uni vers MINE 09-27 Slow IV ity of (BENADRYL) 07:00: 07:05 Push, [place] injection 00 :00 ONCE, 1 Medical 50 mg dose, On [facility] 09/27/22 at 0100, STAT NaCl 0.9% 2022- [...] Sat Branch 09/19/22 at 1830, SHEEBA famotidine 2022-0 2022- No 20mg 20 mg, Univ ers (PEPCID 09-20 Slow IV ity of (PF)) 00:30: 00:36 Push, [place] injection 00 :00 ONCE, 1 Medical 20 mg dose, On Branch 09/19/22 at 1830, SHEEBA ipratropium 2022-0 2022- No 3mL 3 mL, Univ ers -albuteroL 09-20 Inhalation it y of (DUONEB) 00:28: 00:36 , ONCE, 1 [place] 0.5 mg-3 00 :00 dose, On Medical mg(2.5 mg Sat Branch base)/3 mL 09/19/22 at nebulizer 1830, SHEEBA solution 3 mL methylPREDN 2023-0 Yes [id number] Take by [facility] 4 -14 [id number] mouth ity of mg tablets 00:00: SEE-INSTRU [place] 00 CTIONS. Medical follow Branch package directions methylPREDN 2023-0 Yes [id number] Take by [facility] 4 -14 [id number] mouth ity of mg tablets 00:00: SEE-INSTRU [place] 00 CTIONS. Medical follow Branch package directions methylPREDN 2023-0 Yes [id number] Take by [facility] 4 -14 [id number] mouth ity of mg tablets 00:00: SEE-INSTRU [place] 00 CTIONS. Medical follow Branch package directions methylPREDN 2023-0 Yes [id number] Take by [facility] 4 -14 [id number] mouth ity of mg tablets 00:00: SEE-INSTRU [place] 00 CTIONS. Medical follow Branch package directions methylPREDN 2023-0 Yes [id number] Take by [facility] 4 -14 [id number] mouth ity of mg tablets 00:00: SEE-INSTRU [place] 00 CTIONS. Medical follow Branch package directions methylPREDN 2023-0 Yes [id number] Take by [facility] 4 -14 [id number] mouth ity of mg tablets 00:00: SEE-INSTRU [place] 00 CTIONS. Medical follow Branch package directions methylPREDN 2023-0 Yes [id number] Take by [facility] 4 -14 [id number] mouth ity of mg tablets 00:00: SEE-INSTRU [place] 00 CTIONS. Medical follow Branch package directions methylPREDN 2023-0 Yes [id number] Take by [facility] 4 -14 [id number] mouth ity of mg tablets 00:00: SEE-INSTRU [place] 00 CTIONS. Medical follow Branch package directions methylPREDN 2023-0 Yes [id number] Take by [facility] 4 -14 [id number] mouth ity of mg tablets 00:00: SEE-INSTRU [place] 00 CTIONS. Medical follow Branch package directions methylPREDN 2023-0 Yes [id number] Take by [place] [address] -14 [id number] mouth ity of mg tablets 00:00: SEE-INSTRU [place] 00 CTIONS. Medical follow Branch package directions methylPREDN 2023-0 Yes [id number] Take by [place] [address] -14 [id number] mouth ity of mg tablets 00:00: SEE-INSTRU [place] 00 CTIONS. Medical follow Branch package directions methylPREDN 2023-0 Yes [id number] Take by [place] [address] -14 [id number] mouth ity of mg tablets 00:00: SEE-INSTRU [place] 00 CTIONS. Medical follow Branch package directions methylPREDN 2023-0 Yes [id number] Take by [place] [address] -14 [id number] mouth ity of mg tablets 00:00: SEE-INSTRU [place] 00 CTIONS. Medical follow Branch package directions methylPREDN 2023-0 Yes [id number] Take by [place] [address] -14 [id number] mouth ity of mg tablets 00:00: SEE-INSTRU [place] 00 CTIONS. Medical follow Branch package directions methylPREDN 2023-0 Yes [id number] Take by [place] [address] -14 [id number] mouth ity of mg tablets 00:00: SEE-INSTRU [place] 00 CTIONS. Medical follow Branch package directions methylPREDN 2023-0 Yes [id number] Take by [place] [address] -14 [id number] mouth ity of mg tablets 00:00: SEE-INSTRU [place] 00 CTIONS. Medical follow Branch package directions methylPREDN 2023-0 Yes [id number] Take by [place] [address] -14 [id number] mouth ity of mg tablets 00:00: SEE-INSTRU [place] 00 CTIONS. Medical follow Branch package directions methylPREDN 2023-0 Yes [id number] Take by [place] [address] -14 [id number] mouth ity of mg tablets 00:00: SEE-INSTRU [place] 00 CTIONS. Medical follow Branch package directions methylPREDN 2023-0 Yes [id number] Take by [place] [address] -14 [id number] mouth ity of mg tablets 00:00: SEE-INSTRU [place] 00 CTIONS. Medical follow Branch package directions methylPREDN 2023-0 Yes [id number] Take by [place] [address] 09-19 [id number] mouth ity of mg tablets 00:00: SEE-INSTRU [place] 00 CTIONS. Medical follow Branch package directions methylPREDN 2022- No [id number] Take by [place] [address] 09-19 [id number] mouth ity of mg tablets 00:00: 00:00 SEE-INSTRU [place] 00 :00 CTIONS. Medical follow Branch package directions methylPREDN 2022- No [id number] Take by [place] [address] 09-19 [id number] mouth ity of mg tablets 00:00: 00:00 SEE-INSTRU [place] 00 :00 CTIONS. Medical follow Branch package directions methylPREDN 2022- No [id number] Take by [place] [address] 09-19 [id number] mouth ity of mg tablets 00:00: 00:00 SEE-INSTRU [place] 00 :00 CTIONS. Medical follow Branch package directions methylPREDN 2022- No [id number] Take by [place] [address] 09-19 [id number] mouth ity of mg tablets 00:00: 00:00 SEE-INSTRU [place] 00 :00 CTIONS. Medical follow Branch package directions omalizumab 2022- No [id number] 150mg [facility] (XOLAIR) 09-14 ity of injection 22:15: 10:14 [place] 150 mg 00 :00 [facility] omalizumab 2022- No [id number] 150mg [facility] (XOLAIR) 09-14 ity of injection 22:15: 10:14 [place] 150 mg 00 :00 [facility] omalizumab 2022- No [id number] 150mg [facility] (XOLAIR) 09-14 ity of injection 22:15: 15:20 [place] 150 mg 00 :00 Medical Branch omalizumab 2022- No [id number] 150mg [facility] (XOLAIR) 09-14 ity of injection 22:15: 15:20 [place] 150 mg 00 :00 Medical Branch omalizumab 2022- No [id number] 150mg 150 mg, [facility] (XOLAIR) 09-14 Subcutaneo ity of injection 22:15: 15:20 us, ONCE, [place] 150 mg 00 :00 1 dose, On Medical 09/14/22 Branch at 1615, Routine
Restricte d use approved by: CATRACHITA MERCADO MD. (ALLERGY/I MMUNOLOGY) omalizumab 2022- No [id number] 150mg 150 mg, [facility] (XOLAIR) 09-14 Subcutaneo ity of injection 22:15: 15:20 us, ONCE, [place] 150 mg 00 :00 1 dose, On Medical 09/14/22 Branch at 1615, Routine
Restricte d use approved by: CATRACHITA MERCADO MD. (ALLERGY/I MMUNOLOGY) omalizumab 2022- No [id number] 150mg [facility] (XOLAIR) 09-14 ity of injection 22:15: 15:20 [place] 150 mg 00 :00 Medical Branch omalizumab 2022- No [id number] 150mg [facility] (XOLAIR) 09-14 ity of injection 22:15: 15:20 [place] 150 mg 00 :00 [facility] Branch omalizumab 2022- No [id number] 150mg 150 mg, [facility] (XOLAIR) 09-14 Subcutaneo ity of injection 22:15: 15:20 us, ONCE, [place] 150 mg 00 :00 1 dose, On Medical 09/14/22 Branch at 1615, Routine
Restricte d use approved by: CATRACHITA MERCADO MD. (ALLERGY/I MMUNOLOGY) omalizumab 2022- No [id number] 150mg 150 mg, [facility] (XOLAIR) 09-14 Subcutaneo ity of injection 22:15: 15:20 us, ONCE, [place] 150 mg 00 :00 1 dose, On Medical 09/14/22 Branch at 1615, Routine
Restricte d use approved by: CATRACHITA MERCADO MD. (ALLERGY/I MMUNOLOGY) montelukast 2023-0 Yes [id number] 10mg Take 1 [facility] 10 mg 1-06 tablet by ity of tablet 00:00: mouth in [place] 00 the Medical morning. Branch EPINEPHrine 2022-0 Yes [id number] .3mg 0.3 mL by [facility] (EPIPEN) 1-06 Intramuscu ity o f 0.3 mg/0.3 00:00: lar route [place] mL 00 as needed Medical injection (anaphylax Bran ch is). montelukast 2022-0 Yes [id number] 10mg Take 1 [facility] 10 mg 1-06 tablet by ity of tablet 00:00: mouth in [place] 00 the Medical morning. Branch EPINEPHrine 2022-0 Yes [id number] .3mg 0.3 mL by [facility] (EPIPEN) 1-06 Intramuscu ity o f 0.3 mg/0.3 00:00: lar route [place] mL 00 as needed Medical injection (anaphylax Bran ch is). omalizumab 2022-0 Yes [id number] 300mg inject 2 [facility] (XOLAIR) 1-06 Syringes ity of injection 00:00: under the [place] 00 skin every Medical 2 (two) Branch weeks. montelukast 2022-0 Yes [id number] 10mg Take 1 [facility] 10 mg 1-06 tablet by ity of tablet 00:00: mouth in [place] 00 the Medical morning. Branch EPINEPHrine 2022-0 Yes [id number] .3mg 0.3 mL by [facility] (EPIPEN) 1-06 Intramuscu ity o f 0.3 mg/0.3 00:00: lar route [place] mL 00 as needed Medical injection (anaphylax Bran ch is). omalizumab 2022-0 Yes [id number] 300mg inject 2 [facility] (XOLAIR) 1-06 Syringes ity of injection 00:00: under the [place] 00 skin every Medical 2 (two) Branch weeks. montelukast 2022-0 Yes [id number] 10mg Take 1 [facility] 10 mg 1-06 tablet by ity of tablet 00:00: mouth in [place] 00 the Medical morning. Branch EPINEPHrine 2022-0 Yes [id number] .[id number] 0.3 mL by [facility] (EPIPEN) 1-06 Intramuscu ity o f 0.3 mg/0.3 00:00: lar route [place] mL 00 as needed Medical injection (anaphylax Bran ch is). omalizumab 3-0 Yes [id number] 300mg inject 2 [facility] (XOLAIR) 1-06 Syringes ity of injection 00:00: under the [place] 00 skin every Medical 2 (two) Branch weeks. montelukast 2022-0 Yes [id number] 10mg Take 1 [facility] 10 mg 1-06 tablet by ity of tablet 00:00: mouth in [place] 00 the Medical morning. Branch EPINEPHrine 2022-0 Yes [id number] .3mg 0.3 mL by [facility] (EPIPEN) 1-06 Intramuscu ity o f 0.3 mg/0.3 00:00: lar route [place] mL 00 as needed Medical injection (anaphylax Bran ch is). omalizumab 2022-0 Yes [id number] 300mg inject 2 [facility] (XOLAIR) 1-06 Syringes ity of injection 00:00: under the [place] 00 skin every Medical 2 (two) Branch weeks. montelukast 2022-0 Yes [id number] 10mg Take 1 [facility] 10 mg 1-06 tablet by ity of tablet 00:00: mouth in [place] 00 the Medical morning. Branch EPINEPHrine 2022-0 Yes [id number] .3mg 0.3 mL by [facility] (EPIPEN) 1-06 Intramuscu ity o f 0.3 mg/0.3 00:00: lar route [place] mL 00 as needed Medical injection (anaphylax Bran ch is). omalizumab 2022-0 Yes [id number] 300mg inject 2 [facility] (XOLAIR) 1-06 Syringes ity of injection 00:00: under the [place] 00 skin every Medical 2 (two) Branch weeks. montelukast 2022-0 Yes [id number] 10mg Take 1 [facility] 10 mg 1-06 tablet by ity of tablet 00:00: mouth in [place] 00 the Medical morning. Branch EPINEPHrine 2022-0 Yes [id number] .[id number] 0.3 mL by Univers (EPIPEN) 1-06 Intramuscu ity o f 0.3 mg/0.3 00:00: lar route [place] mL 00 as needed Medical injection (anaphylax Bran ch is). omalizumab 3-0 Yes [id number] 300mg inject 2 [facility] (XOLAIR) 1-06 Syringes ity of injection 00:00: under the [place] 00 skin every Medical 2 (two) Branch weeks. montelukast 2022-0 Yes [id number] 10mg Take 1 [facility] 10 mg 1-06 tablet by ity of tablet 00:00: mouth in [place] 00 the Medical morning. Branch EPINEPHrine 2022-0 Yes [id number] .3mg 0.3 mL by [facility] (EPIPEN) 1-06 Intramuscu ity o f 0.3 mg/0.3 00:00: lar route [place] mL 00 as needed Medical injection (anaphylax Bran ch is). omalizumab 2022-0 Yes [id number] 300mg inject 2 [facility] (XOLAIR) 1-06 Syringes ity of injection 00:00: under the [place] 00 skin every Medical 2 (two) Branch weeks. montelukast 2022-0 Yes [id number] 10mg Take 1 [facility] 10 mg 1-06 tablet by ity of tablet 00:00: mouth in [place] 00 the Medical morning. Branch EPINEPHrine 2022-0 Yes [id number] .3mg 0.3 mL by [facility] (EPIPEN) 1-06 Intramuscu ity o f 0.3 mg/0.3 00:00: lar route [place] mL 00 as needed Medical injection (anaphylax Bran ch is). omalizumab 2022-0 Yes [id number] 300mg inject 2 [facility] (XOLAIR) 1-06 Syringes ity of injection 00:00: under the [place] 00 skin every Medical 2 (two) Branch weeks. montelukast 2022-0 Yes [id number] 10mg Take 1 [facility] 10 mg 1-06 tablet by ity of tablet 00:00: mouth in [place] 00 the Medical morning. Branch EPINEPHrine 2022-0 Yes [id number] .3mg 0.3 mL by [facility] (EPIPEN) 1-06 Intramuscu ity o f 0.3 mg/0.3 00:00: lar route [place] mL 00 as needed Medical injection (anaphylax Bran ch is). omalizumab 2022-0 Yes [id number] 300mg inject 2 [facility] (XOLAIR) 1-06 Syringes ity of injection 00:00: under the [place] 00 skin every Medical 2 (two) Branch weeks. montelukast 3-0 Yes [id number] 10mg Take 1 [facility] 10 mg 1-06 tablet by ity of tablet 00:00: mouth in [place] 00 the Medical morning. Branch EPINEPHrine 2022-0 Yes [id number] .3mg 0.3 mL by Univers (EPIPEN) 1-06 Intramuscu ity o f 0.3 mg/0.3 00:00: lar route [place] mL 00 as needed Medical injection (anaphylax Bran ch is). omalizumab 2022-0 Yes [id number] 300mg inject 2 [facility] (XOLAIR) 1-06 Syringes ity of injection 00:00: under the [place] 00 skin every Medical 2 (two) Branch weeks. montelukast 2022-0 Yes [id number] 10mg Take 1 [facility] 10 mg 1-06 tablet by ity of tablet 00:00: mouth in [place] 00 the Medical morning. Branch EPINEPHrine 2022-0 Yes [id number] .3mg 0.3 mL by Univers (EPIPEN) 1-06 Intramuscu ity o f 0.3 mg/0.3 00:00: lar route [place] mL 00 as needed Medical injection (anaphylax Bran ch is). omalizumab 2022-0 Yes [id number] 300mg inject 2 [facility] (XOLAIR) 1-06 Syringes ity of injection 00:00: under the [place] 00 skin every Medical 2 (two) Branch weeks. montelukast 2022-0 Yes [id number] 10mg Take 1 [facility] 10 mg 1-06 tablet by ity of tablet 00:00: mouth in [place] 00 the Medical morning. Branch EPINEPHrine 2022-0 Yes [id number] .3mg 0.3 mL by Univers (EPIPEN) 1-06 Intramuscu ity o f 0.3 mg/0.3 00:00: lar route [place] mL 00 as needed Medical injection (anaphylax Bran ch is). omalizumab 2022-0 Yes [id number] 300mg inject 2 [facility] (XOLAIR) 1-06 Syringes ity of injection 00:00: under the [place] 00 skin every Medical 2 (two) Branch weeks. montelukast 3-0 Yes [id number] 10mg Take 1 [facility] 10 mg 1-06 tablet by ity of tablet 00:00: mouth in [place] 00 the Medical morning. Branch EPINEPHrine 2022-0 Yes [id number] .3mg 0.3 mL by Univers (EPIPEN) 1-06 Intramuscu ity o f 0.3 mg/0.3 00:00: lar route [place] mL 00 as needed Medical injection (anaphylax Bran ch is). omalizumab 2022-0 Yes [id number] 300mg inject 2 [facility] (XOLAIR) 1-06 Syringes ity of injection 00:00: under the [place] 00 skin every Medical 2 (two) Branch weeks. montelukast 2022-0 Yes [id number] 10mg Take 1 [facility] 10 mg 1-06 tablet by ity of tablet 00:00: mouth in [place] 00 the Medical morning. Branch EPINEPHrine 2022-0 Yes [id number] .3mg 0.3 mL by Univers (EPIPEN) 1-06 Intramuscu ity o f 0.3 mg/0.3 00:00: lar route [place] mL 00 as needed Medical injection (anaphylax Bran ch is). omalizumab 2022-0 Yes [id number] 300mg inject 2 [facility] (XOLAIR) 1-06 Syringes ity of injection 00:00: under the [place] 00 skin every Medical 2 (two) Branch weeks. montelukast 2022-0 Yes [id number] 10mg Take 1 [facility] 10 mg 1-06 tablet by ity of tablet 00:00: mouth in [place] 00 the Medical morning. Branch EPINEPHrine 2022-0 Yes [id number] .[id number] 0.3 mL by [facility] (EPIPEN) 1-06 Intramuscu ity o f 0.3 mg/0.3 00:00: lar route [place] mL 00 as needed Medical injection (anaphylax Bran ch is). omalizumab 2022-0 Yes [id number] 300mg inject 2 [facility] (XOLAIR) 1-06 Syringes ity of injection 00:00: under the [place] 00 skin every Medical 2 (two) Branch weeks. montelukast 3-0 Yes [id number] 10mg Take 1 [facility] 10 mg 1-06 tablet by ity of tablet 00:00: mouth in [place] 00 the Medical morning. Branch EPINEPHrine 2022-0 Yes [id number] .3mg 0.3 mL by [facility] (EPIPEN) 1-06 Intramuscu ity o f 0.3 mg/0.3 00:00: lar route [place] mL 00 as needed Medical injection (anaphylax Bran ch is). omalizumab 2022-0 Yes [id number] 300mg inject 2 [facility] (XOLAIR) 1-06 Syringes ity of injection 00:00: under the [place] 00 skin every Medical 2 (two) Branch weeks. montelukast 2022-0 Yes [id number] 10mg Take 1 [facility] 10 mg 1-06 tablet by ity of tablet 00:00: mouth in [place] 00 the Medical morning. Branch EPINEPHrine 2022-0 Yes [id number] .3mg 0.3 mL by Univers (EPIPEN) 1-06 Intramuscu ity o f 0.3 mg/0.3 00:00: lar route [place] mL 00 as needed Medical injection (anaphylax Bran ch is). omalizumab 2022-0 Yes [id number] 300mg inject 2 [facility] (XOLAIR) 1-06 Syringes ity of injection 00:00: under the [place] 00 skin every Medical 2 (two) Branch weeks. montelukast 2022-0 Yes [id number] 10mg Take 1 [facility] 10 mg 1-06 tablet by ity of tablet 00:00: mouth in [place] 00 the Medical morning. Branch EPINEPHrine 2022-0 Yes [id number] .3mg 0.3 mL by Univers (EPIPEN) 1-06 Intramuscu ity o f 0.3 mg/0.3 00:00: lar route [place] mL 00 as needed Medical injection (anaphylax Bran ch is). omalizumab 2022-0 Yes [id number] 300mg inject 2 [facility] (XOLAIR) 1-06 Syringes ity of injection 00:00: under the [place] 00 skin every Medical 2 (two) Branch weeks. montelukast 2022-0 Yes [id number] 10mg Take 1 [facility] 10 mg 1-06 tablet by ity of tablet 00:00: mouth in [place] 00 the Medical morning. Branch EPINEPHrine 2022-0 Yes [id number] .3mg 0.3 mL by Univers (EPIPEN) 1-06 Intramuscu ity o f 0.3 mg/0.3 00:00: lar route [place] mL 00 as needed Medical injection (anaphylax Bran ch is). omalizumab 3-0 Yes [id number] 300mg inject 2 [facility] (XOLAIR) 1-06 Syringes ity of injection 00:00: under the [place] 00 skin every Medical 2 (two) Branch weeks. montelukast 2022-0 Yes [id number] 10mg Take 1 [facility] 10 mg 1-06 tablet by ity of tablet 00:00: mouth in [place] 00 the Medical morning. Branch EPINEPHrine 2022-0 Yes [id number] .3mg 0.3 mL by Univers (EPIPEN) 1-06 Intramuscu ity o f 0.3 mg/0.3 00:00: lar route [place] mL 00 as needed Medical injection (anaphylax Bran ch is). omalizumab 2022-0 Yes [id number] 300mg inject 2 [facility] (XOLAIR) 1-06 Syringes ity of injection 00:00: under the [place] 00 skin every Medical 2 (two) Branch weeks. montelukast 2022-0 Yes [id number] 10mg Take 1 [facility] 10 mg 1-06 tablet by ity of tablet 00:00: mouth in [place] 00 the Medical morning. Branch EPINEPHrine 2022-0 Yes [id number] .3mg 0.3 mL by Univers (EPIPEN) 1-06 Intramuscu ity o f 0.3 mg/0.3 00:00: lar route [place] mL 00 as needed Medical injection (anaphylax Bran ch is). omalizumab 2022-0 Yes [id number] 300mg inject 2 [facility] (XOLAIR) 1-06 Syringes ity of injection 00:00: under the [place] 00 skin every Medical 2 (two) Branch weeks. montelukast 2022-0 Yes [id number] 10mg Take 1 [facility] 10 mg 1-06 tablet by ity of tablet 00:00: mouth in [place] 00 the Medical morning. Branch EPINEPHrine 2022-0 Yes [id number] .3mg 0.3 mL by Univers (EPIPEN) 1-06 Intramuscu ity o f 0.3 mg/0.3 00:00: lar route [place] mL 00 as needed Medical injection (anaphylax Bran ch is). omalizumab 3-0 Yes [id number] 300mg inject 2 [facility] (XOLAIR) 1-06 Syringes ity of injection 00:00: under the [place] 00 skin every Medical 2 (two) Branch weeks. omalizumab 2023-0 Yes [id number] 300mg inject 2 [facility] (XOLAIR) 1-06 Syringes ity of injection 00:00: under the [place] 00 skin every Medical 2 (two) Branch weeks. omalizumab 2023-0 Yes [id number] 300mg inject 2 [facility] (XOLAIR) 1-06 Syringes ity of injection 00:00: under the [place] 00 skin every Medical 2 (two) Branch weeks. omalizumab 3-0 Yes [id number] 300mg inject 2 [facility] (XOLAIR) 1-06 Syringes ity of injection 00:00: under the [place] 00 skin every Medical 2 (two) Branch weeks. omalizumab 2023-0 Yes [id number] 300mg inject 2 [facility] (XOLAIR) 1-06 Syringes ity of injection 00:00: under the [place] 00 skin every Medical 2 (two) Branch weeks. omalizumab 2022-0 Yes [id number] 300mg inject 2 [facility] (XOLAIR) 1-06 Syringes ity of injection 00:00: under the [place] 00 skin every Medical 2 (two) Branch weeks. omalizumab 3-0 Yes [id number] 300mg inject 2 [facility] (XOLAIR) 1-06 Syringes ity of injection 00:00: under the [place] 00 skin every Medical 2 (two) Branch weeks. montelukast 2022- No [id number] 10mg Take 1 [facility] 10 mg 09-11 tablet by ity of tablet 00:00: 00:00 mouth in [place] 00 :00 the Medical morning. Branch EPINEPHrine 2022- No [id number] .3mg 0.3 mL by [facility] (EPIPEN) 09-11 Intramuscu ity of 0.3 mg/0.3 00:00: 00:00 lar route [place] mL 00 :00 as needed Medical injection (anaphylax Bran ch is). montelukast 2022- No [id number] 10mg Take 1 [facility] 10 mg 09-11 tablet by ity of tablet 00:00: 00:00 mouth in [place] 00 :00 the Medical morning. Branch EPINEPHrine 2022- No [id number] .3mg 0.3 mL by Univers (EPIPEN) 09-11 Intramuscu ity of 0.3 mg/0.3 00:00: 00:00 lar route [place] mL 00 :00 as needed Medical injection (anaphylax Bran ch is). montelukast 2022- No [id number] 10mg Take 1 [facility] 10 mg 09-11 tablet by ity of tablet 00:00: 00:00 mouth in [place] 00 :00 the Medical morning. Branch EPINEPHrine 2022- No [id number] .3mg 0.3 mL by [facility] (EPIPEN) 09-11 Intramuscu ity of 0.3 mg/0.3 00:00: 00:00 lar route [place] mL 00 :00 as needed Medical injection (anaphylax Bran ch is). ketorolac 2021-09 No 30mg 30 mg, Unive rs (TORADOL) 10-30 Slow IV ity of injection 04:45: 03:54 Push, [place] 30 mg 00 :00 ONCE, 1 Medical dose, On Branch 08/28/22 at 2245, Routine iopamidol 2021-09- No [id number] 75mL 75 mL, U nivers (ISOVUE 10-30 Intravenou ity o f 370-500 mL) 04:15: 03:18 s, ONCE, 1 [place] injection 00 :00 dose, On Medica l 75 mL Fri Branch 08/28/22 at 2215, Routine dexamethaso 2021-09 No 10mg 10 mg, Uni vers ne sod phos 10-30 Slow IV ity of PF 04:00: 03:54 Push, [place] injection 00 :00 ONCE, 1 Medical 10 mg dose, On Branch 08/28/22 at 2200, 1 mL FENTanyl PF 2021-09 No 50ug 50 mcg, Un yesenia (SUBLIMAZE 10-30- Slow IV ity o f (PF)) 03:45: 03:06 Push, [place] injection 00 :00 ONCE, 1 Medical 50 mcg dose, On Branch 08/28/22 at 2145, Routine NaCl 0.9% 2021-09- No 1000mL at 999 Uni vers (NS) bolus 2-24 12-24 mL/hr, ity of infusion 03:45: 04:31 1,000 mL, [place] 1,000 mL 00 :00 IV Medical Infusion, Branch ONCE, 1 dose, On 08/28/22 at 2145, SHEEBA ondansetron 2021-09- No 4mg 4 mg, Slow Univers (ZOFRAN 2-24 12-24 IV Push, ity of (PF)) 03:00: 03:06 ONCE, 1 [place] injection 4 00 :00 dose, On Medi abhishek mg Fri Branch 08/28/22 at 2100, SHEEBA predniSONE 2021-09 Yes [id number] Take 3 U nivers 10 mg 2-23 tablets by ity of tablet 00:00: mouth [place] 00 daily for Medical 5 days Branch then take 2 tablets by mouth daily for 5 days then take 1 tablet by mouth daily for 5 days then take 0.5 tablets by mouth daily for 4 days then stop. predniSONE 2021-09 Yes [id number] Take 3 U nivers 10 mg 2-23 tablets by ity of tablet 00:00: mouth [place] 00 daily for Medical 5 days Branch then take 2 tablets by mouth daily for 5 days then take 1 tablet by mouth daily for 5 days then take 0.5 tablets by mouth daily for 4 days then stop. predniSONE 2021-09 Yes [id number] Take 3 U nivers 10 mg 2-23 tablets by ity of tablet 00:00: mouth [place] 00 daily for Medical 5 days Branch then take 2 tablets by mouth daily for 5 days then take 1 tablet by mouth daily for 5 days then take 0.5 tablets by mouth daily for 4 days then stop. predniSONE 2021-09 Yes [id number] Take 3 U nivers 10 mg 2-23 tablets by ity of tablet 00:00: mouth [place] 00 daily for Medical 5 days Branch then take 2 tablets by mouth daily for 5 days then take 1 tablet by mouth daily for 5 days then take 0.5 tablets by mouth daily for 4 days then stop. predniSONE 2021-09 Yes [id number] Take 3 U nivers 10 mg 2-23 tablets by ity of tablet 00:00: mouth [place] 00 daily for Medical 5 days Branch then take 2 tablets by mouth daily for 5 days then take 1 tablet by mouth daily for 5 days then take 0.5 tablets by mouth daily for 4 days then stop. predniSONE 2021-09 Yes [id number] Take 3 U nivers 10 mg 2-23 tablets by ity of tablet 00:00: mouth [place] 00 daily for Medical 5 days Branch then take 2 tablets by mouth daily for 5 days then take 1 tablet by mouth daily for 5 days then take 0.5 tablets by mouth daily for 4 days then stop. predniSONE 2021-09 Yes [id number] Take 3 U nivers 10 mg 2-23 tablets by ity of tablet 00:00: mouth [place] 00 daily for Medical 5 days Branch then take 2 tablets by mouth daily for 5 days then take 1 tablet by mouth daily for 5 days then take 0.5 tablets by mouth daily for 4 days then stop. predniSONE 2021-09 Yes [id number] Take 3 U nivers 10 mg 2-23 tablets by ity of tablet 00:00: mouth [place] 00 daily for Medical 5 days Branch then take 2 tablets by mouth daily for 5 days then take 1 tablet by mouth daily for 5 days then take 0.5 tablets by mouth daily for 4 days then stop. predniSONE 2021-09 Yes [id number] Take 3 U nivers 10 mg 2-23 tablets by ity of tablet 00:00: mouth [place] 00 daily for Medical 5 days Branch then take 2 tablets by mouth daily for 5 days then take 1 tablet by mouth daily for 5 days then take 0.5 tablets by mouth daily for 4 days then stop. predniSONE 2021-09 Yes [id number] Take 3 U nivers 10 mg 2-23 tablets by ity of tablet 00:00: mouth [place] 00 daily for Medical 5 days Branch then take 2 tablets by mouth daily for 5 days then take 1 tablet by mouth daily for 5 days then take 0.5 tablets by mouth daily for 4 days then stop. predniSONE 2021-09 Yes [id number] Take 3 U nivers 10 mg 2-23 tablets by ity of tablet 00:00: mouth [place] 00 daily for Medical 5 days Branch then take 2 tablets by mouth daily for 5 days then take 1 tablet by mouth daily for 5 days then take 0.5 tablets by mouth daily for 4 days then stop. predniSONE 2021-09 Yes [id number] Take 3 U nivers 10 mg 2-23 tablets by ity of tablet 00:00: mouth [place] 00 daily for Medical 5 days Branch then take 2 tablets by mouth daily for 5 days then take 1 tablet by mouth daily for 5 days then take 0.5 tablets by mouth daily for 4 days then stop. predniSONE 2021-09 Yes [id number] Take 3 U nivers 10 mg 2-23 tablets by ity of tablet 00:00: mouth [place] 00 daily for Medical 5 days Branch then take 2 tablets by mouth daily for 5 days then take 1 tablet by mouth daily for 5 days then take 0.5 tablets by mouth daily for 4 days then stop. predniSONE 2021-09 Yes [id number] Take 3 U nivers 10 mg 2-23 tablets by ity of tablet 00:00: mouth [place] 00 daily for Medical 5 days Branch then take 2 tablets by mouth daily for 5 days then take 1 tablet by mouth daily for 5 days then take 0.5 tablets by mouth daily for 4 days then stop. predniSONE 2021-09 Yes [id number] Take 3 U nivers 10 mg 2-23 tablets by ity of tablet 00:00: mouth [place] 00 daily for Medical 5 days Branch then take 2 tablets by mouth daily for 5 days then take 1 tablet by mouth daily for 5 days then take 0.5 tablets by mouth daily for 4 days then stop. predniSONE 2021-09 Yes [id number] Take 3 U nivers 10 mg 2-23 tablets by ity of tablet 00:00: mouth [place] 00 daily for Medical 5 days Branch then take 2 tablets by mouth daily for 5 days then take 1 tablet by mouth daily for 5 days then take 0.5 tablets by mouth daily for 4 days then stop. predniSONE 2021-09 Yes [id number] Take 3 U nivers 10 mg 2-23 tablets by ity of tablet 00:00: mouth [place] 00 daily for Medical 5 days Branch then take 2 tablets by mouth daily for 5 days then take 1 tablet by mouth daily for 5 days then take 0.5 tablets by mouth daily for 4 days then stop. predniSONE 2021-09 Yes [id number] Take 3 U nivers 10 mg 2-23 tablets by ity of tablet 00:00: mouth [place] 00 daily for Medical 5 days Branch then take 2 tablets by mouth daily for 5 days then take 1 tablet by mouth daily for 5 days then take 0.5 tablets by mouth daily for 4 days then stop. predniSONE 2021-09 Yes [id number] Take 3 U nivers 10 mg 2-23 tablets by ity of tablet 00:00: mouth [place] 00 daily for Medical 5 days Branch then take 2 tablets by mouth daily for 5 days then take 1 tablet by mouth daily for 5 days then take 0.5 tablets by mouth daily for 4 days then stop. predniSONE 2021-09 Yes [id number] Take 3 U nivers 10 mg 2-23 tablets by ity of tablet 00:00: mouth [place] 00 daily for Medical 5 days Branch then take 2 tablets by mouth daily for 5 days then take 1 tablet by mouth daily for 5 days then take 0.5 tablets by mouth daily for 4 days then stop. predniSONE 2021-09 Yes [id number] Take 3 U nivers 10 mg 2-23 tablets by ity of tablet 00:00: mouth [place] 00 daily for Medical 5 days Branch then take 2 tablets by mouth daily for 5 days then take 1 tablet by mouth daily for 5 days then take 0.5 tablets by mouth daily for 4 days then stop. predniSONE 2021-09 Yes [id number] Take 3 U nivers 10 mg 2-23 tablets by ity of tablet 00:00: mouth [place] 00 daily for Medical 5 days Branch then take 2 tablets by mouth daily for 5 days then take 1 tablet by mouth daily for 5 days then take 0.5 tablets by mouth daily for 4 days then stop. predniSONE 2021-09 Yes [id number] Take 3 U nivers 10 mg 2-23 tablets by ity of tablet 00:00: mouth [place] 00 daily for Medical 5 days Branch then take 2 tablets by mouth daily for 5 days then take 1 tablet by mouth daily for 5 days then take 0.5 tablets by mouth daily for 4 days then stop. predniSONE 2021-09 Yes [id number] Take 3 U nivers 10 mg 2-23 tablets by ity of tablet 00:00: mouth [place] 00 daily for Medical 5 days Branch then take 2 tablets by mouth daily for 5 days then take 1 tablet by mouth daily for 5 days then take 0.5 tablets by mouth daily for 4 days then stop. predniSONE 2021-09 Yes [id number] Take 3 U nivers 10 mg 2-23 tablets by ity of tablet 00:00: mouth [place] 00 daily for Medical 5 days Branch then take 2 tablets by mouth daily for 5 days then take 1 tablet by mouth daily for 5 days then take 0.5 tablets by mouth daily for 4 days then stop. predniSONE 2021-09 Yes [id number] Take 3 U nivers 10 mg 2-23 tablets by ity of tablet 00:00: mouth [place] 00 daily for Medical 5 days Branch then take 2 tablets by mouth daily for 5 days then take 1 tablet by mouth daily for 5 days then take 0.5 tablets by mouth daily for 4 days then stop. predniSONE 2021-09- No [id number] Take 3 [facility] 10 mg 2-23 06-01 tablets by ity of tablet 00:00: 00:00 mouth [place] 00 :00 daily for Medical 5 days Branch then take 2 tablets by mouth daily for 5 days then take 1 tablet by mouth daily for 5 days then take 0.5 tablets by mouth daily for 4 days then stop. predniSONE 2021-09- No [id number] Take 3 [facility] 10 mg 2-23 06-01 tablets by ity of tablet 00:00: 00:00 mouth [place] 00 :00 daily for Medical 5 days Branch then take 2 tablets by mouth daily for 5 days then take 1 tablet by mouth daily for 5 days then take 0.5 tablets by mouth daily for 4 days then stop. predniSONE 2021-09- No [id number] Take 3 [facility] 10 mg 2-23 06-01 tablets by ity of tablet 00:00: 00:00 mouth [place] 00 :00 daily for Medical 5 days Branch then take 2 tablets by mouth daily for 5 days then take 1 tablet by mouth daily for 5 days then take 0.5 tablets by mouth daily for 4 days then stop. omalizumab 2021-09- No [id number] 150mg U nivers (XOLAIR) 10-18 ity of injection 17:45: 16:53 [place] 150 mg 00 :00 [facility] omalizumab 2021-09- No [id number] 150mg U nivers (XOLAIR) 10-18 ity of injection 17:45: 16:53 [place] 150 mg 00 :00 [facility] omalizumab 2021-09- No [id number] 150mg U nivers (XOLAIR) 10-18 ity of injection 17:45: 16:53 [place] 150 mg 00 :00 [facility] omalizumab 2021-09- No [id number] 150mg 150 mg, Univers (XOLAIR) 10-18 Subcutaneo ity of injection 17:45: 16:53 us, ONCE, [place] 150 mg 00 :00 1 dose, On Medical Mon Branch 08/17/22 at 1145, Routine
Restricte d use approved by: LORENE ROMAN MD. (ALLERGY/I MMUNOLOGY) omalizumab 2021-09- No [id number] 150mg 150 mg, Univers (XOLAIR) 10-18 Subcutaneo ity of injection 17:45: 16:53 [place], ONCE, [place] 150 mg 00 :00 1 dose, On Medical Mon Branch 08/17/22 at 1145, Routine
Restricte d use approved by: LORENE ROMAN MD. (ALLERGY/I MMUNOLOGY) omalizumab 2021-09- No [id number] 150mg 150 mg, Univers (XOLAIR) 10-18 Subcutaneo [...] 54 Starting Medica l 50 mg on [facility] Branch 08/15/22 at 1155, Until Discontinu ed, [...] it y of mg capsule 17:15: (four) [place] 49 times Medical daily as Branch needed for Abdominal pain. dicyclomine 2021- Yes 10mg Take 10 mg Univers (BENTYL) 10 2-10 by mouth 4 it y of mg capsule 17:15: (four) [place] 49 times Medical daily as Branch needed for Abdominal pain. dicyclomine 2021- Yes 10mg Take 10 mg Univers (BENTYL) 10 2-10 by mouth 4 it y of mg capsule 17:15: (four) [place] 49 times Medical daily as Branch needed for Abdominal pain. dicyclomine 2021- Yes 10mg Take 10 mg Univers (BENTYL) 10 2-10 by mouth 4 it y of mg capsule 17:15: (four) [place] 49 times Medical daily as Branch needed [...] it y of mg capsule 17:15: (four) [place] 49 times Medical daily as Branch needed [...] it y of mg capsule 17:15: (four) [place] 49 times Medical daily as Branch needed for Abdominal pain. dicyclomine 2021- Yes 10mg Take 10 mg Univers (BENTYL) 10 2-10 by mouth 4 it y of mg capsule 17:15: (four) [place] 49 times Medical daily as Branch needed for Abdominal pain. dicyclomine 2021- Yes 10mg Take 10 mg Univers (BENTYL) 10 2-10 by mouth 4 it y of mg capsule 17:15: (four) [place] 49 times Medical daily as Branch needed for Abdominal pain. dicyclomine 2021- Yes 10mg Take 10 mg Univers (BENTYL) 10 2-10 by mouth 4 it y of mg capsule 17:15: (four) [place] 49 times Medical daily as Branch needed [...] it y of mg capsule 17:15: (four) [place] 49 times Medical daily as Branch needed [...] it y of mg capsule 17:15: (four) [place] 49 times Medical daily as Branch needed for Abdominal pain. dicyclomine 2021- Yes 10mg Take 10 mg Univers (BENTYL) 10 2-10 by mouth 4 it y of mg capsule 17:15: (four) [place] 49 times Medical daily as Branch needed for Abdominal pain. dicyclomine 2021- Yes 10mg Take 10 mg Univers (BENTYL) 10 2-10 by mouth 4 it y of mg capsule 17:15: (four) [place] 49 times Medical daily as Branch needed for Abdominal pain. dicyclomine 2021- Yes 10mg Take 10 mg Univers (BENTYL) 10 2-10 by mouth 4 it y of mg capsule 17:15: (four) [place] 49 times Medical daily as Branch needed [...] it y of mg capsule 17:15: (four) [place] 49 times Medical daily as Branch needed for Abdominal pain. dicyclomine 2021-09 Yes 10mg Take 10 mg Univers (BENTYL) 10 2-10 by mouth 4 it y of mg capsule 17:15: (four) [place] 49 times Medical daily as Branch needed for Abdominal pain. dicyclomine 2021-09 Yes 10mg Take 10 mg Univers (BENTYL) 10 2-10 by mouth 4 it y of mg capsule 17:15: (four) [place] 49 times Medical daily as Branch needed for Abdominal pain. diphenhydrA 2021-09 No 50mg 50 mg, Uni vers MINE 2-10 12-10 Intravenou ity of (BENADRYL) 16:45: 16:00 s, ONCE, 1 [place] injection 00 :00 dose, On Medica l 50 mg [facility] Branch 08/15/22 at 1045, Routine montelukast 2021-09 Yes 10mg 10 mg, Univ ers (SINGULAIR) 2-10 Oral, ity of tablet 10 15:00: DAILY, [place] mg 00 First dose Medical on [facility] Branch 08/15/22 at 0900, Until Discontinu ed, Routine lamoTRIgine 2021-09 Yes 200mg 200 mg, Un yesenia (LAMICTAL) 2-10 Oral, ity of tablet 200 15:00: DAILY, [place] mg 00 First dose Medical on [facility] Branch 08/15/22 at 0900, Until Discontinu ed, Routine fluticasone 2021-09 Yes 1{spray 1 [place], Univers propionate 2-10 } Nasal, ity of 50 15:00: DAILY, [place] mcg/actuati 00 First dose Me dical on nasal on [facility] Branch spray 1 08/15/22 [place] at 0900, Until Discontinu ed, Routine atorvastati 2021-09 Yes 20mg 20 mg, Univ ers n (LIPITOR) 2-10 Oral, QHS, it y of tablet 20 03:00: First dose [place] mg 00 on [facility] 08/14/22 at Branch 2100, Until Discontinu ed, Routine methylPREDN 2021-09 Yes 40mg 40 mg, Univ ers ISolone sod 2-10 Intravenou it y of succ 02:00: s, Q12H, [place] (SOLU-MEDRO 00 First dose Me dical L (PF)) on Fri Branch injection 08/14/22 at 40 mg 2000, Until Discontinu ed, 1 mL famotidine 2021-09 [...] [place] Puff 03 Starting Medical on Fri Branch 08/14/22 at 1800, Until Discontinu ed, Routine, Wheezing, Shortness of Breath predniSONE 2021-09- No [id number] 40mg Take 2 Univers 20 mg 2-10 12-14 tablets by ity of tablet 00:00: 05:59 mouth in [place] 00 :00 [facility] for 3 days. predniSONE 2021-09- No [id number] 40mg Take 2 Univers 20 mg 2-10 12-14 tablets by ity of tablet 00:00: 05:59 mouth in [place] 00 :00 [facility] for 3 days. predniSONE 2021-09- No [id number] 40mg Take 2 Univers 20 mg 2-10 12-14 tablets by ity of tablet 00:00: 05:59 mouth in [place] 00 :00 [facility] for 3 days. enoxaparin 2021-09 Yes 40mg [...] 08/14/22 at 0.5 mL 1330, STAT famotidine 2021-09 No 20mg 20 mg, Univ ers (PEPCID - 12-09 Slow IV ity of (PF)) 19:21: 19:22 [...] Syringes ity of injection 00:00: under the [place] 00 skin every Medical 4 (four) [...] No 450mg inject 3 U nivers (XOLAIR) 2-09 01-06 Syringes ity of injection 00:00: 00:00 under the [place] 00 :00 skin every Medical 4 (four) Branch weeks. omalizumab 2021-09- No 450mg inject 3 U nivers (XOLAIR) 2-09 01-06 Syringes ity of injection 00:00: 00:00 under the [place] 00 :00 skin every Medical 4 (four) Branch weeks. omalizumab 2021-09- No 450mg inject 3 U nivers (XOLAIR) 10-15 Syringes ity of injection 00:00: 00:00 under the [place] 00 :00 skin every Medical 4 (four) Branch weeks. EPINEPHrine 2021-09- No [id number] .3mg 0.3 mL by Univers 0.3 mg/0.3 10-15 Intramuscu it y of mL 00:00: 05:59 lar route [place] injection 00 :00 once now Medica l for 1 Branch dose. omalizumab 2021-09- No [id number] 150mg U nivers (XOLAIR) 09-21 ity of injection 19:00: 18:05 [place] 150 mg 00 :00 [facility] Branch omalizumab 2021-09- No [id number] 150mg U nivers (XOLAIR) 09-21 ity of injection 19:00: 18:05 [place] 150 mg 00 :00 [facility] Branch omalizumab 2021-09- No [id number] 150mg U nivers (XOLAIR) 09-21 ity of injection 19:00: 18:04 [place] 150 mg 00 :00 [facility] Branch omalizumab 2021-09- No [id number] 150mg 150 mg, Univers (XOLAIR) 09-21 Subcutaneo ity of injection 19:00: 18:04 us, ONCE, [place] 150 mg 00 :00 1 dose, On Medical Wed Branch 07/22/22 at 1300, Routine
Restricte d use approved by: LORENE ROMAN MD. (ALLERGY/I MMUNOLOGY) omalizumab 2021-09- No [id number] 150mg 150 mg, Univers (XOLAIR) 09-21 Subcutaneo ity of injection 19:00: 18:05 us, ONCE, [place] 150 mg 00 :00 1 dose, On Medical [facility] 07/22/22 at 1300, Routine
Restricte d use approved by: LORENE ROMAN MD. (ALLERGY/I MMUNOLOGY) omalizumab 2021-09- No [id number] 150mg 150 mg, Univers (XOLAIR) 1-16 16 Subcutaneo ity of injection 19:00: 18:05 us, ONCE, [place] 150 mg 00 :00 1 dose, On [facility] 07/22/22 at 1300, Routine
Restricte d use approved by: LORENE ROMAN MD. (ALLERGY/I MMUNOLOGY) predniSONE 2021-09- No 40mg 40 mg, Univ ers (DELTASONE) 0-23 10-23 Oral, ity of tablet 40 16:45: 16:49 ONCE, 1 [place] mg 00 :00 dose, On [facility] 06/28/22 at 1145, Routine montelukast 2021-09 Yes 10mg 10 mg, Univ ers (SINGULAIR) 0-23 Oral, ity of tablet 10 14:00: DAILY, [place] mg 00 First dose Medical on [facility] 06/28/22 at 0900, Until Discontinu ed, Routine lamoTRIgine 2021-09 Yes 200mg 200 mg, Un yesenia (LAMICTAL) 0-23 Oral, QAM, ity of tablet 200 14:00: First dose [place] mg 00 on [facility] 06/28/22 Branch at 0900, Until Discontinu ed, Routine fluticasone 2021-09 Yes 1{spray 1 [place], Univers propionate 0-23 } Nasal, ity of 50 14:00: DAILY, [place] mcg/actuati 00 First dose Me dical on nasal on [place] Branch spray 1 06/28/22 [place] at 0900, Until Discontinu ed, Routine atorvastati 2021-09 Yes 20mg 20 mg, Univ ers n (LIPITOR) 0-23 Oral, ity of tablet 20 14:00: DAILY, [place] mg 00 First dose Medical on [facility] 06/28/22 at 0900, Until Discontinu ed, Routine enoxaparin 2021-09 Yes 40mg 40 mg, Unive rs (LOVENOX) 0-23 Subcutaneo ity of injection 14:00: us, DAILY, [place] 40 mg 00 First dose Medical on [facility] 06/28/22 at 0900, Until Discontinu ed, Routine dicyclomine 2021-09 Yes 10mg Take 10 mg Univers (BENTYL) 10 0-23 by mouth 4 it y of mg capsule 13:32: (four) [place] 28 times Medical daily as Branch needed for Abdominal pain. dicyclomine 2021-09 Yes 10mg Take 10 mg Univers (BENTYL) 10 0-23 by mouth 4 it y of mg capsule 13:32: (four) [place] 28 times Medical daily as Branch needed for Abdominal pain. dicyclomine 2021-09 Yes 10mg Take 10 mg [facility] (BENTYL) 10 0-23 by mouth 4 it y of mg capsule 13:32: (four) [place] 28 times Medical daily as Branch needed for Abdominal pain. dicyclomine 2021-09 Yes 10mg Take 10 mg Univers (BENTYL) 10 0-23 by mouth 4 it y of mg capsule 13:32: (four) [place] 28 times Medical daily as Branch needed for Abdominal pain. famotidine 2021-09 Yes 20mg 20 mg, Unive rs (PEPCID AC) 0-23 Oral, BID, it y of tablet 20 13:00: First dose [place] mg 00 on [facility] 06/28/22 Branch at 0800, Until Discontinu ed, Routine acetaminoph 2021-09 Yes 650mg 650 mg, Un yesenia en 0-23 Oral, ity of (TYLENOL) 12:31: Q6HPRN, [place] tablet 650 12 Starting Medic al mg on [facility] 06/28/22 at 0731, Until Discontinu ed, Routine, Pain (scale 1-3) NaCl 0.9% 2021-09 Yes 1000mL at 125 Univ ers (NS) IV 0-23 mL/hr, IV ity of infusion 05:30: Infusion, [place] 1,000 mL 00 CONTINUOUS Medic al , Starting Branch on [place] 06/28/22 at 0030, Until Discontinu ed, Routine ondansetron 2021-09 Yes 4mg 4 mg, Slow Univers (ZOFRAN 0-23 IV Push, ity of (PF)) 03:07: Q6HPRN, [place] injection 4 06 Starting Medi abhishek mg on [facility] 06/27/22 at 2207, Until Discontinu ed, Routine, Nausea and Vomiting (N/V) NaCl 0.9% 2021-09 No 1000mL at 125 Uni vers (NS) IV 0-23 10-23 mL/hr, IV ity of infusion 03:00: 11:00 Infusion, [place] 1,000 mL 00 :00 ONCE, 1 Medical dose, On Branch [facility] 06/27/22 at 2200, Routine KCL 2021-09- No 40meq 40 mEq, Univers (KLOR-CON 0-23 10-23 Oral, ity of M20) tablet 03:00: 02:33 ONCE, 1 [place] 40 mEq 00 :00 dose, On Medical [facility] Branch 06/27/22 at 2200, Routine hydrOXYzine 2021-09 Yes 25mg 25 mg, Univ ers (ATARAX) 0-23 Oral, ity of tablet 25 01:43: Q8HPRN, [place] mg 10 Starting Medical on [facility] Branch 06/27/22 at 204, Until Discontinu ed, Itching dicyclomine 2021-09 Yes 10mg 10 mg, Univ ers (BENTYL) 0-23 Oral, ity of capsule 10 01:42: QIDPRN, [place] mg 46 Starting Medical on [facility] Branch 06/27/22 at 2041, Until Discontinu ed, Routine, Abdominal pain cyclobenzap 2021-09 Yes 10mg 10 mg, Univ ers rine 0-23 Oral, ity of (FLEXERIL) 01:42: QHSPRN, [place] tablet 10 33 Starting Medica l mg on [facility] Branch 06/27/22 at 2041, Until Discontinu ed, Routine, Muscle Spasms predniSONE 2021-09- No [id number] 40mg Take 2 [facility] 20 mg 0-23 10-27 [id number] tablets by ity o f tablet 00:00: 04:59 mouth in [place] 00 :00 the Medical morning Branch for 3 days. predniSONE 2021-09- No [id number] 40mg Take 2 Univers 20 mg 0-23 10-27 [id number] tablets by ity o f tablet 00:00: 04:59 mouth in [place] 00 :00 the Medical morning Branch for 3 days. EPINEPHrine 2021-09- No [id number] .3mg 0.3 mL by Univers 0.3 mg/0.3 0-23 10-24 [id number] Intramuscu ity of mL 00:00: 04:59 lar route [place] injection 00 :00 once now Medica l for 1 Branch dose. loratadine 2021-09 Yes 10mg 10 mg, Unive rs (CLARITIN) Oral, ity of tablet 10 23:00: DAILY, [place] mg 00 First dose Medical on Sat Branch 06/27/22 at 1800, Until Discontinu ed, Routine methylpredn 2021-09 No 60mg 60 mg, Uni vers isolone sod 06-28 Intravenou i ty of succ 23:00: 15:45 s, Q6H, 4 [place] (SOLU-MEDRO 00 :52 doses, Medica l L) First dose Branch injection on Sat 60 mg 06/27/22 at 1800, Last dose on 06/28/22 at 1200, 2 mL NaCl 0.9% 2021-09 No 1000mL at 999 Uni vers (NS) bolus 06-27 mL/hr, ity of infusion 20:30: 22:00 1,000 mL, [place] 1,000 mL 00 :00 IV Medical Piggyback, Branch ONCE, 1 dose, On 06/27/22 at 1530, STAT proMETHazin 2021-09 No 25mg 25 mg, IV Univers e 06-27 Piggyback, ity of (PHENERGAN) 20:00: 19:58 ONCE, 1 [place] 25 mg in 00 :00 dose, On Medical NaCl 0.9% Sat Branch (NS) 50 mL 06/27/22 IV at 1500, piggyback SHEEBA famotidine 2021-09 No 20mg 20 mg, Univ ers (PEPCID 06-27 Slow IV ity of (PF)) 19:00: 19:17 Push, [place] injection 00 :00 ONCE, 1 Medical 20 mg dose, On Branch 06/27/22 at 1400, SHEEBA racEPINEPHr 2021-09 No .5mL 0.5 mL, Un yesenia ine (S2 06-27 Inhalation ity o f RACEMIC) 19:00: 18:51 , ONCE, 1 [place] 2.25 % 00 :00 dose, On Medical nebulizer Sat Branch solution 06/27/22 0.5 mL at 1400, STAT omalizumab 2021-09- No [id number] 150mg U nivers (XOLAIR) 0-20 10-20 ity of injection 18:00: 17:06 [place] 150 mg 00 :00 [facility] Branch omalizumab 2021-09- No [id number] 150mg U nivers (XOLAIR) 0-20 10-20 ity of injection 18:00: 17:06 [place] 150 mg 00 :00 [facility] Branch omalizumab 2021-09- No [id number] 150mg U nivers (XOLAIR) 0-20 10-20 ity of injection 18:00: 17:05 [place] 150 mg 00 :00 [facility] Branch omalizumab 2021-09- No [id number] 150mg 150 mg, Univers (XOLAIR) 0-20 10-20 Subcutaneo ity of injection 18:00: 17:05 us, ONCE, [place] 150 mg 00 :00 1 dose, On [facility] Branch 06/25/22 at 1300, Routine
Restricte d use approved by: CATRACHITA MERCADO MD. (ALLERGY/I MMUNOLOGY) omalizumab 2021-09- No [id number] 150mg 150 mg, Univers (XOLAIR) 0-20 10-20 Subcutaneo ity of injection 18:00: 17:06 us, ONCE, [place] 150 mg 00 :00 1 dose, On [facility] Branch 06/25/22 at 1300, Routine
Restricte d use approved by: CATRACHITA MERCADO MD. (ALLERGY/I MMUNOLOGY) omalizumab 2021-09- No [id number] 150mg 150 mg, Univers (XOLAIR) 0-20 10-20 Subcutaneo ity of injection 18:00: 17:06 us, ONCE, [place] 150 mg 00 :00 1 dose, On [facility] Branch 06/25/22 at 1300, Routine
Restricte d use approved by: CATRACHITA MERCADO MD. (ALLERGY/I MMUNOLOGY) omalizumab 2021- No [id number] 150mg U nivers (XOLAIR) 05-28 ity of injection 17:45: 17:10 [place] 150 mg 00 :00 Medical Branch omalizumab 2021- No [id number] 150mg U nivers (XOLAIR) 05-28 ity of injection 17:45: 17:10 [place] 150 mg 00 :00 Medical Branch omalizumab 2021- No [id number] 150mg U nivers (XOLAIR) 05-28 ity of injection 17:45: 17:09 [place] 150 mg 00 :00 Medical Branch omalizumab 2021- No [id number] 150mg 150 mg, Univers (XOLAIR) 05-28 Subcutaneo ity of injection 17:45: 17:09 us, ONCE, [place] 150 mg 00 :00 1 dose, On [facility] 05/28/22 at 1245, Routine
Restricte d use approved by: CATRACHITA MERCADO MD. (ALLERGY/I MMUNOLOGY) omalizumab 2021- No [id number] 150mg 150 mg, Univers (XOLAIR) 05-28 Subcutaneo ity of injection 17:45: 17:10 us, ONCE, [place] 150 mg 00 :00 1 dose, On [facility] 05/28/22 at 1245, Routine
Restricte d use approved by: CATRACHITA MERCADO MD. (ALLERGY/I MMUNOLOGY) omalizumab 2021- No [id number] 150mg 150 mg, Univers (XOLAIR) 05-28 Subcutaneo ity of injection 17:45: 17:10 us, ONCE, [place] 150 mg 00 :00 1 dose, On [facility] 05/28/22 at 1245, Routine
Restricte d use approved by: CATRACHITA MERCADO MD. (ALLERGY/I MMUNOLOGY) omalizumab 2021- No [id number] 150mg [facility] nivers (XOLAIR) 05-28 ity of injection 17:45: 17:10 [place] 150 mg 00 :00 Medical Branch omalizumab 2021- No [id number] 150mg U nivers (XOLAIR) 05-28 ity of injection 17:45: 17:10 [place] 150 mg 00 :00 Medical Branch omalizumab 2021- No [id number] 150mg [facility] nivers (XOLAIR) 05-28 ity of injection 17:45: 17:09 [place] 150 mg 00 :00 Medical Branch omalizumab 2021- No [id number] 150mg 150 mg, [facility] (XOLAIR) 05-28 Subcutaneo ity of injection 17:45: 17:09 [place], [place]CE, [place] 150 mg 00 :00 1 dose, On [facility] 05/28/22 at 1245, Routine
Restricte d use approved by: CATRACHITA MERCADO MD. (ALLERGY/I MMUNOLOGY) omalizumab 2021- No [id number] 150mg 150 mg, [facility] (XOLAIR) 05-28 Subcutaneo ity of injection 17:45: 17:10 [place], [place]CE, [place] 150 mg 00 :00 1 dose, On [facility] 05/28/22 at 1245, Routine
Restricte d use approved by: CATRACHITA MERCADO MD. (ALLERGY/I MMUNOLOGY) omalizumab 2021- No [id number] 150mg 150 mg, [facility] (XOLAIR) 05-28 Subcutaneo ity of injection 17:45: 17:10 [place], [place]CE, [place] 150 mg 00 :00 1 dose, On [facility] 05/28/22 at 1245, Routine
Restricte d use approved by: CATRACHITA MERCADO MD. (ALLERGY/I MMUNOLOGY) omalizumab 2021- No [id number] 150mg U nivers (XOLAIR) 05-28 ity of injection 17:45: 17:10 [place] 150 mg 00 :00 Medical Branch omalizumab 2021- No [id number] 150mg U nivers (XOLAIR) 05-28 ity of injection 17:45: 17:10 [place] 150 mg 00 :00 Medical Branch omalizumab 2021- No [id number] 150mg U nivers (XOLAIR) 05-28 ity of injection 17:45: 17:09 [place] 150 mg 00 :00 [facility] omalizumab 2021- No [id number] 150mg 150 mg, Univers (XOLAIR) 05-28 Subcutaneo ity of injection 17:45: 17:09 [place], [place]CE, [place] 150 mg 00 :00 1 dose, On [facility] 05/28/22 at 1245, Routine
Restricte d use approved by: CATRACHITA MERCADO MD. (ALLERGY/I MMUNOLOGY) omalizumab 2021- No [id number] 150mg 150 mg, [facility] (XOLAIR) 05-28 Subcutaneo ity of injection 17:45: 17:10 [place], [place]CE, [place] 150 mg 00 :00 1 dose, On [facility] 05/28/22 at 1245, Routine
Restricte d use approved by: CATRACHITA MERCADO MD. (ALLERGY/I MMUNOLOGY) omalizumab 2021- No [id number] 150mg 150 mg, [facility] (XOLAIR) 05-28 Subcutaneo ity of injection 17:45: 17:10 [place], [place]CE, [place] 150 mg 00 :00 1 dose, On [facility] 05/28/22 at 1245, Routine
Restricte d use approved by: CATRACHITA MERCADO MD. (ALLERGY/I MMUNOLOGY) omalizumab 2021- No [id number] 150mg U nivers (XOLAIR) 05-28 ity of injection 17:45: 17:10 [place] 150 mg 00 :00 [facility] Branch omalizumab 2021- No [id number] 150mg U nivers (XOLAIR) 05-28 ity of injection 17:45: 17:10 [place] 150 mg 00 :00 Medical Branch omalizumab 2021- No [id number] 150mg [facility] nivers (XOLAIR) 05-28 ity of injection 17:45: 17:09 [place] 150 mg 00 :00 Medical Branch omalizumab 2021- No [id number] 150mg 150 mg, [facility] (XOLAIR) 05-28 Subcutaneo ity of injection 17:45: 17:09 [place], ONCE, [place] 150 mg 00 :00 1 dose, On [facility] 05/28/22 at 1245, Routine
Restricte d use approved by: CATRACHITA MERCADO MD. (ALLERGY/I MMUNOLOGY) omalizumab 2021- No [id number] 150mg 150 mg, [facility] (XOLAIR) 05-28 Subcutaneo ity of injection 17:45: 17:10 [place], [place]CE, [place] 150 mg 00 :00 1 dose, On [facility] 05/28/22 at 1245, Routine
Restricte d use approved by: CATRACHITA MERCADO MD. (ALLERGY/I MMUNOLOGY) omalizumab 2021- No [id number] 150mg 150 mg, [facility] (XOLAIR) 05-28 Subcutaneo ity of injection 17:45: 17:10 [place], [place]CE, [place] 150 mg 00 :00 1 dose, On [facility] 05/28/22 at 1245, Routine
Restricte d use approved by: CATRACHITA MERCADO MD. (ALLERGY/I MMUNOLOGY) omalizumab 2021- No [id number] 150mg U nivers (XOLAIR) 04-30 ity of injection 17:30: 16:42 [place] 150 mg 00 :00 Medical Branch omalizumab 2021- No [id number] 150mg U nivers (XOLAIR) 04-30- ity of injection 17:30: 16:42 [place] 150 mg 00 :00 Medical Branch omalizumab 2021- No [id number] 150mg U nivers (XOLAIR) 04-30 ity of injection 17:30: 16:42 [place] 150 mg 00 :00 [facility] omalizumab 2021- No [id number] 150mg 150 mg, [facility] (XOLAIR) 04-30 Subcutaneo ity of injection 17:30: 16:42 [place], ONCE, [place] 150 mg 00 :00 1 dose, On [facility] 04/30/22 at 1230, Routine
Restricte d use approved by: CATRACHITA MERCADO MD. (ALLERGY/I MMUNOLOGY) omalizumab 2021- No [id number] 150mg 150 mg, [facility] (XOLAIR) 04-30 Subcutaneo ity of injection 17:30: 16:42 [place], ONCE, [place] 150 mg 00 :00 1 dose, On [facility] 04/30/22 at 1230, Routine
Restricte d use approved by: CATRACHITA MERCADO MD. (ALLERGY/I MMUNOLOGY) omalizumab 2021- No [id number] 150mg 150 mg, [facility] (XOLAIR) 04-30 Subcutaneo ity of injection 17:30: 16:42 [place], ONCE, [place] 150 mg 00 :00 1 dose, On [facility] 04/30/22 at 1230, Routine
Restricte d use approved by: CATRACHITA MERCADO MD. (ALLERGY/I MMUNOLOGY) famotidine Yes [id number] 20mg Take 1 [facility] nivers (PEPCID) 20 8-25 tablet by ity of mg tablet 00:00: mouth [place] 00 the Medical morning Branch and 1 tablet in the evening. famotidine Yes [id number] 20mg Take 1 [facility] (PEPCID) 20 8-25 tablet by ity of mg tablet 00:00: mouth [place] 00 the Medical morning Branch and 1 tablet in the evening. famotidine Yes [id number] 20mg Take 1 [facility] (PEPCID) 20 8-25 tablet by ity of mg tablet 00:00: mouth [place] 00 the Medical morning Branch and 1 tablet in the evening. famotidine 2-0 Yes [id number] 20mg Take 1 [facility] (PEPCID) 20 8-25 tablet by ity of mg tablet 00:00: mouth [place] 00 the Medical morning Branch and 1 tablet in the evening. famotidine 2-0 Yes [id number] 20mg Take 1 [facility] (PEPCID) 20 8-25 tablet by ity of mg tablet 00:00: mouth [place] 00 the Medical morning Branch and 1 tablet in the evening. famotidine 2021-0 Yes [id number] 20mg Take 1 [facility] (PEPCID) 20 8-25 tablet by ity of mg tablet 00:00: mouth [place] 00 the Medical morning Branch and 1 tablet in the evening. famotidine 2021-0 Yes [id number] 20mg Take 1 [facility] n[facility] (PEPCID) 20 8-25 tablet by ity of mg tablet 00:00: mouth [place] 00 the Medical morning Branch and 1 tablet in the evening. famotidine 2021-0 Yes [id number] 20mg Take 1 [facility] (PEPCID) 20 8-25 tablet by ity of mg tablet 00:00: mouth [place] 00 the Medical morning Branch and 1 tablet in the evening. famotidine 2-0 Yes [id number] 20mg Take 1 [facility] nivers (PEPCID) 20 8-25 tablet by ity of mg tablet 00:00: mouth [place] 00 the Medical morning Branch and 1 tablet in the evening. famotidine 2021-0 Yes [id number] 20mg Take 1 [facility] nivers (PEPCID) 20 8-25 tablet by ity of mg tablet 00:00: mouth [place] 00 the Medical morning Branch and 1 tablet in the evening. famotidine 2-0 Yes [id number] 20mg Take 1 [facility] (PEPCID) 20 8-25 tablet by ity of mg tablet 00:00: mouth [place] 00 the Medical morning Branch and 1 tablet in the evening. famotidine 2-0 Yes [id number] 20mg Take 1 [facility]ivers (PEPCID) 20 8-25 tablet by ity of mg tablet 00:00: mouth [place] 00 the Medical morning Branch and 1 tablet in the evening. famotidine 2022-0 Yes [id number] 20mg Take 1 [facility] nivers (PEPCID) 20 8-25 tablet by ity of mg tablet 00:00: mouth [place] 00 the Medical morning Branch and 1 tablet in the evening. famotidine 2022-0 Yes [id number] 20mg Take 1 [facility] nivers (PEPCID) 20 8-25 tablet by ity of mg tablet 00:00: mouth [place] 00 the Medical morning Branch and 1 tablet in the evening. famotidine 2-0 Yes [id number] 20mg Take 1 [facility] nivers (PEPCID) 20 8-25 tablet by ity of mg tablet 00:00: mouth [place] 00 the Medical morning Branch and 1 tablet in the evening. famotidine 2-0 Yes [id number] 20mg Take 1 [facility] nivers (PEPCID) 20 8-25 tablet by ity of mg tablet 00:00: mouth [place] 00 the Medical morning Branch and 1 tablet in the evening. famotidine 2-0 Yes [id number] 20mg Take 1 [facility] nivers (PEPCID) 20 8-25 tablet by ity of mg tablet 00:00: mouth [place] 00 the Medical morning Branch and 1 tablet in the evening. famotidine 2-0 Yes [id number] 20mg Take 1 [facility] nivers (PEPCID) 20 8-25 tablet by ity of mg tablet 00:00: mouth [place] 00 the Medical morning Branch and 1 tablet in the evening. famotidine 2022-0 Yes [id number] 20mg Take 1 [facility] nivers (PEPCID) 20 8-25 tablet by ity of mg tablet 00:00: mouth [place] 00 the Medical morning Branch and 1 tablet in the evening. famotidine 2022-0 Yes [id number] 20mg Take 1 [facility] nivers (PEPCID) 20 8-25 tablet by ity of mg tablet 00:00: mouth [place] 00 the Medical morning Branch and 1 tablet in the evening. famotidine 2022-0 Yes [id number] 20mg Take 1 [facility] nivers (PEPCID) 20 8-25 tablet by ity of mg tablet 00:00: mouth [place] 00 the Medical morning Branch and 1 tablet in the evening. montelukast 2021-0 Yes [id number] 10mg Take 1 [facility] 10 mg 8-25 tablet by ity of tablet 00:00: mouth in [place] 00 the Medical morning. Branch famotidine 2021-0 Yes [id number] 20mg Take 1 [facility] nivers (PEPCID) 20 8-25 tablet by ity of mg tablet 00:00: mouth [place] 00 the Medical morning Branch and 1 tablet in the evening. montelukast 2021-0 Yes [id number] 10mg Take 1 [facility] 10 mg 8-25 tablet by ity of tablet 00:00: mouth in [place] 00 the Medical morning. Branch famotidine 2021-0 Yes [id number] 20mg Take 1 [facility] nivers (PEPCID) 20 8-25 tablet by ity [facility] mg tablet 00:00: [facility] and 1 tablet in the evening. montelukast 2021-0 Yes [id number] 10mg Take 1 [facility] 10 mg 8-25 tablet by ity of tablet 00:00: mouth in [place] the Medical morning. Branch famotidine 2021-0 Yes [id number] 20mg Take 1 [facility] nivers (PEPCID) 20 8-25 tablet by ity of mg tablet 00:00: mouth [place] 00 the Medical morning Branch and 1 tablet in the evening. montelukast 2021-0 Yes [id number] 10mg Take 1 [facility] 10 mg 8-25 tablet by ity of tablet 00:00: mouth in [place] 00 the Medical morning. Branch famotidine 2021-0 Yes [id number] 20mg Take 1 [facility] nivers (PEPCID) 20 8-25 tablet by ity of mg tablet 00:00: mouth [place] 00 the Medical morning Branch and 1 tablet in the evening. montelukast 2-0 Yes [id number] 10mg Take 1 [facility] 10 mg 8-25 tablet by ity of tablet 00:00: mouth in [place] 00 the Medical morning. Branch famotidine 2021-0 Yes [id number] 20mg Take 1 [facility] nivers (PEPCID) 20 8-25 tablet by ity of mg tablet 00:00: mouth [place] 00 the Medical morning Branch and 1 tablet in the evening. montelukast 2-0 Yes [id number] 10mg Take 1 [facility] 10 mg 8-25 tablet by ity of tablet 00:00: mouth in [place] 00 the Medical morning. Branch famotidine 2-0 Yes [id number] 20mg Take 1 [facility] nivers (PEPCID) 20 8-25 tablet by ity of mg tablet 00:00: [facility] Branch and 1 tablet in the evening. montelukast 2-0 Yes [id number] 10mg Take 1 [facility] 10 mg 8-25 tablet by ity of tablet 00:00: mouth in [place] 00 the Medical morning. Branch famotidine 2021-0 Yes [id number] 20mg Take 1 [facility] nivers (PEPCID) 20 8-25 tablet by ity of mg tablet 00:00: mouth in [facility] 00 the Medical morning Branch and 1 tablet in the evening. montelukast 2021-0 Yes [id number] 10mg Take 1 [facility] 10 mg 8-25 tablet by ity of tablet 00:00: mouth in [place] 00 the Medical morning. Branch famotidine 2021-0 Yes [id number] 20mg Take 1 [facility] nivers (PEPCID) 20 8-25 tablet by ity of mg tablet 00:00: mouth in [facility] 00 the Medical morning Branch and 1 tablet in the evening. montelukast 2-0 Yes [id number] 10mg Take 1 [facility] 10 mg 8-25 tablet by ity of tablet 00:00: mouth in [place] 00 the Medical morning. Branch famotidine 2021-0 Yes [id number] 20mg Take 1 [facility] nivers (PEPCID) 20 8-25 tablet by ity of mg tablet 00:00: mouth in [facility] 00 the Medical morning Branch and 1 tablet in the evening. montelukast 2-0 Yes [id number] 10mg Take 1 [facility] 10 mg 8-25 tablet by ity of tablet 00:00: mouth in [place] 00 the Medical morning. Branch famotidine 2022-0 Yes [id number] 20mg Take 1 [facility] nivers (PEPCID) 20 8-25 tablet by ity of mg tablet 00:00: [facility] Branch and 1 tablet in the evening. montelukast 2022-0 Yes [id number] 10mg Take 1 [facility] 10 mg 8-25 tablet by ity of tablet 00:00: mouth in [place] 00 the Medical morning. Branch famotidine 2021-0 Yes [id number] 20mg Take 1 [facility] nivers (PEPCID) 20 8-25 tablet by ity of mg tablet 00:00: mouth [place] 00 the Medical morning Branch and 1 tablet in the evening. montelukast 2021-0 Yes [id number] 10mg Take 1 [facility] 10 mg 8-25 tablet by ity of tablet 00:00: mouth in [place] 00 the Medical morning. Branch famotidine 2021-0 Yes [id number] 20mg Take 1 [facility]ivers (PEPCID) 20 8-25 tablet by ity of mg tablet 00:00: [facility] Branch and 1 tablet in the evening. montelukast 2021-0 Yes [id number] 10mg Take 1 [facility] 10 mg 8-25 tablet by ity of tablet 00:00: mouth in [place] 00 the Medical morning. Branch famotidine 2021-0 Yes [id number] 20mg Take 1 [facility]ivers (PEPCID) 20 8-25 tablet by ity of mg tablet 00:00: mouth [place] 00 the Medical morning Branch and 1 tablet in the evening. montelukast 2021-0 Yes [id number] 10mg Take 1 [facility] 10 mg 8-25 tablet by ity of tablet 00:00: mouth in [place] 00 the Medical morning. Branch famotidine 2021-0 Yes [id number] 20mg Take 1 [facility]ivers (PEPCID) 20 8-25 tablet by ity of mg tablet 00:00: [facility] Branch and 1 tablet in the evening. montelukast 2021-0 Yes [id number] 10mg Take 1 [facility] 10 mg 8-25 tablet by ity of tablet 00:00: mouth in [place] 00 the Medical morning. Branch famotidine 2021-0 Yes [id number] 20mg Take 1 [facility] nivers (PEPCID) 20 8-25 tablet by ity of mg tablet 00:00: mouth [place] 00 the Medical morning Branch and 1 tablet in the evening. montelukast 2021-0 Yes [id number] 10mg Take 1 [facility] 10 mg 8-25 tablet by ity of tablet 00:00: mouth in [place] 00 the Medical morning. Branch famotidine 0 Yes [id number] 20mg Take 1 [facility] nivers (PEPCID) 20 8-25 tablet by ity of mg tablet 00:00: mouth [place] 00 the Medical morning Branch and 1 tablet in the evening. famotidine 0 Yes [id number] 20mg Take 1 [facility] nivers (PEPCID) 20 8-25 tablet by ity of mg tablet 00:00: mouth [place] 00 the Medical morning Branch and 1 tablet in the evening. famotidine 0 Yes [id number] 20mg Take 1 [facility] nivers (PEPCID) 20 8-25 tablet by ity of mg tablet 00:00: mouth [place] 00 the Medical morning Branch and 1 tablet in the evening. famotidine 2021-0 Yes [id number] 20mg Take 1 [facility] nivers (PEPCID) 20 8-25 tablet by ity of mg tablet 00:00: mouth [place] 00 the Medical morning Branch and 1 tablet in the evening. famotidine 0 2022- No [id number] 20mg Take 1 [facility] (PEPCID) 20 8-25 06-01 tablet by it y of mg tablet 00:00: 00:00 mouth [place] 00 :00 the Medical morning Branch and 1 tablet in the evening. famotidine 2021-0 2022- No [id number] 20mg Take 1 [facility] (PEPCID) 20 8-25 06-01 tablet by it y of mg tablet 00:00: 00:00 mouth in [place] 00 :00 the Medical morning Branch and 1 tablet in the evening. famotidine 0 3- No [id number] 20mg Take 1 [facility] (PEPCID) 20 8-25 06-01 tablet by it y of mg tablet 00:00: 00:00 mouth in [place] 00 :00 the Medical morning Branch and 1 tablet in the evening. montelukast 2021-0 3- No [id number] 10mg Take 1 [facility] 10 mg 8-25 01-06 tablet by ity of tablet 00:00: 00:00 mouth in [place] 00 :00 the Medical morning. Branch montelukast 2021-0 3- No [id number] 10mg Take 1 [facility] 10 mg 8-25 01-06 tablet by ity of tablet 00:00: 00:00 mouth in [place] 00 :00 the Medical morning. Branch montelukast 2022- No [id number] 10mg Take 1 [facility] 10 mg 8-25 01-06 tablet by ity of tablet 00:00: 00:00 mouth in [place] 00 :00 the Medical morning. Branch cetirizine 2021-2022- No [id number] 10mg Take 1 [facility] 10 mg 7-28 -25 tablet by ity of tablet 00:00: 05:59 mouth in [place] 00 :00 the [facility] and 1 tablet in the evening. Do all this for 180 days. cetirizine 2021-2022- No [id number] 10mg Take 1 [facility] 10 mg 7-28 -25 tablet by ity of tablet 00:00: 05:59 mouth in [place] 00 :00 the [facility] and 1 tablet in the evening. Do all this for 180 days. cetirizine 2021-2022- No [id number] 10mg Take 1 [facility] 10 mg 7-28 -25 tablet by ity of tablet 00:00: 05:59 mouth in [place] 00 :00 the [facility] and 1 tablet in the evening. Do all this for 180 days. cetirizine 2021-2022- No [id number] 10mg Take 1 [facility] 10 mg 7-28 -25 tablet by ity of tablet 00:00: 05:59 mouth in [place] 00 :00 the [facility] and 1 tablet in the evening. Do all this for 180 days. cetirizine 2022- No [id number] 10mg Take 1 [facility] 10 mg 7-28 -25 tablet by ity of tablet 00:00: 05:59 mouth in [place] 00 :00 the [facility] and 1 tablet in the evening. Do all this for 180 days. cetirizine 2021-2022- No [id number] 10mg Take 1 [facility] 10 mg 7-28 -25 tablet by ity of tablet 00:00: 05:59 mouth in [place] 00 :00 [facility] and 1 tablet in the evening. Do all this for 180 days. cetirizine 2021-2022- No [id number] 10mg Take 1 [facility] 10 mg 7-28 01-25 tablet by ity of tablet 00:00: 05:59 mouth in [place] 00 :00 the Medical morning Branch and 1 tablet in the evening. Do all this for 180 days. cetirizine 2021-2022- No [id number] 10mg Take 1 [facility] 10 mg 7-28 -25 tablet by ity of tablet 00:00: 05:59 mouth in [place] 00 :00 the Medical morning Branch and 1 tablet in the evening. Do all this for 180 days. cetirizine 2021-2022- No [id number] 10mg Take 1 [facility] 10 mg 7-28 -25 tablet by ity of tablet 00:00: 05:59 mouth in [place] 00 :00 the Medical morning Branch and 1 tablet in the evening. Do all this for 180 days. cetirizine 2021- No [id number] 10mg Take 1 [facility] 10 mg 7-28 -25 tablet by ity of tablet 00:00: 05:59 mouth in [place] 00 :00 the [facility] morning Branch and 1 tablet in the evening. Do all this for 180 days. cetirizine 2021-2022- No [id number] 10mg Take 1 [facility] 10 mg 7-28 -25 tablet by ity of tablet 00:00: 05:59 mouth in [place] 00 :00 the [facility] morning Branch and 1 tablet in the evening. Do all this for 180 days. cetirizine 2022- No [id number] 10mg Take 1 [facility] 10 mg 7-28 -25 tablet by ity of tablet 00:00: 05:59 mouth in [place] 00 :00 the [facility] morning Branch and 1 tablet in the evening. Do all this for 180 days. cetirizine 2022- No [id number] 10mg Take 1 [facility] 10 mg 7-28 -25 tablet by ity of tablet 00:00: 05:59 mouth in [place] 00 :00 the [facility] morning Branch and 1 tablet in the evening. Do all this for 180 days. cetirizine 2021-2022- No [id number] 10mg Take 1 [facility] 10 mg 7-28 -25 tablet by ity of tablet 00:00: 05:59 mouth in [place] 00 :00 the [facility] morning Branch and 1 tablet in the evening. Do all this for 180 days. cetirizine 2022- No [id number] 10mg Take 1 [facility] 10 mg 7-28 01-25 tablet by ity of tablet 00:00: 05:59 mouth in [place] 00 :00 the [facility] and 1 tablet in the evening. Do all this for 180 days. cetirizine 2022- No [id number] 10mg Take 1 [facility] 10 mg 7-28 01-25 tablet by ity of tablet 00:00: 05:59 mouth in [place] 00 :00 the [facility] and 1 tablet in the evening. Do all this for 180 days. cetirizine 2021-2022- No [id number] 10mg Take 1 [facility] 10 mg 7-28 01-25 tablet by ity of tablet 00:00: 05:59 mouth in [place] 00 :00 [facility] and 1 tablet in the evening. Do all this for 180 days. cetirizine 2022- No [id number] 10mg Take 1 [facility] 10 mg 7-28 -25 tablet by ity of tablet 00:00: 05:59 mouth in [place] 00 :00 [facility] and 1 tablet in the evening. Do all this for 180 days. cetirizine 2022- No [id number] 10mg Take 1 [facility] 10 mg 7-28 -25 tablet by ity of tablet 00:00: 05:59 mouth in [place] 00 :00 [facility] and 1 tablet in the evening. Do all this for 180 days. cetirizine 2022- No [id number] 10mg Take 1 [facility] 10 mg 7-28 -25 tablet by ity of tablet 00:00: 05:59 mouth in [place] 00 :00 [facility] and 1 tablet in the evening. Do all this for 180 days. cetirizine 2021-2022- No [id number] 10mg Take 1 [facility] 10 mg 7-28 01-25 tablet by ity of tablet 00:00: 05:59 mouth in [place] 00 :00 [facility] and 1 tablet in the evening. Do all this for 180 days. cetirizine 2022- No [id number] 10mg Take 1 [facility] 10 mg 7-28 [...] every Medical 4 (four) Branch weeks. omalizumab 2021- No 450mg inject 3 U nivers (XOLAIR) 01-09- Syringes ity of injection 00:00: 00:00 under the [place] 00 :00 skin every Medical 4 (four) Branch weeks. omalizumab 2021- No 450mg inject 3 U nivers (XOLAIR) 01-09 Syringes ity of injection 00:00: 00:00 under the [place] 00 :00 skin every Medical 4 (four) Branch weeks. famotidine 2021- No [id number] 20mg Take 1 [facility] (PEPCID) 20 01-09 08-25 tablet by it y of mg tablet 00:00: 00:00 mouth [place] :00 (two) Medical times Branch daily. montelukast 2021- No [id number] 10mg Take 1 [facility] 10 mg 01-09 08-25 tablet by ity of tablet 00:00: 00:00 mouth [place] 00 :00 daily. Medical Branch ondansetron Yes [id number] 4mg Take 1 [facility] 4 mg 3-19 tablet by ity of disintegrat 00:00: mouth [place] ing tablet 00 every 8 Medica l (eight) Branch hours as needed for Nausea and Vomiting (N/V). ondansetron Yes [id number] 4mg Take 1 [facility] 4 mg 3-19 tablet by ity of disintegrat 00:00: mouth [place] ing tablet 00 every 8 Medica l (eight) Branch hours as needed for Nausea and Vomiting (N/V). ondansetron Yes [id number] 4mg Take 1 [facility] 4 mg 3-19 tablet by ity of disintegrat 00:00: mouth [place] ing tablet 00 every 8 Medica l (eight) Branch hours as needed for Nausea and Vomiting (N/V). ondansetron Yes [id number] 4mg Take 1 [facility] 4 mg 3-19 tablet by ity of disintegrat 00:00: mouth [place] ing tablet 00 every 8 Medica l (eight) Branch hours as needed for Nausea and Vomiting (N/V). ondansetron 2-0 Yes [id number] 4mg Take 1 [facility] 4 mg 3-19 tablet by ity of disintegrat 00:00: mouth [place] ing tablet 00 every 8 Medica l (eight) Branch hours as needed for Nausea and Vomiting (N/V). ondansetron 2-0 Yes [id number] 4mg Take 1 [facility] 4 mg 3-19 tablet by ity of disintegrat 00:00: mouth [place] ing tablet 00 every 8 Medica l (eight) Branch hours as needed for Nausea and Vomiting (N/V). ondansetron 2-0 Yes [id number] 4mg Take 1 [facility] 4 mg 3-19 tablet by ity of disintegrat 00:00: mouth [place] ing tablet 00 every 8 Medica l (eight) Branch hours as needed for Nausea and Vomiting (N/V). ondansetron 2-0 Yes [id number] 4mg Take 1 [facility] 4 mg 3-19 tablet by ity of disintegrat 00:00: mouth [place] ing tablet 00 every 8 Medica l (eight) Branch hours as needed for Nausea and Vomiting (N/V). ondansetron 2-0 Yes [id number] 4mg Take 1 [facility] 4 mg 3-19 tablet by ity of disintegrat 00:00: mouth [place] ing tablet 00 every 8 Medica l (eight) Branch hours as needed for Nausea and Vomiting (N/V). ondansetron 2-0 Yes [id number] 4mg Take 1 [facility] 4 mg 3-19 tablet by ity of disintegrat 00:00: mouth [place] ing tablet 00 every 8 Medica l (eight) Branch hours as needed for Nausea and Vomiting (N/V). ondansetron 2-0 Yes [id number] 4mg Take 1 [facility] 4 mg 3-19 tablet by ity of disintegrat 00:00: mouth [place] ing tablet 00 every 8 Medica l (eight) Branch hours as needed for Nausea and Vomiting (N/V). ondansetron 2022-0 Yes [id number] 4mg Take 1 [facility] 4 mg 3-19 tablet by ity of disintegrat 00:00: mouth [place] ing tablet 00 every 8 Medica l (eight) Branch hours as needed for Nausea and Vomiting (N/V). ondansetron 2022-0 Yes [id number] 4mg Take 1 [facility] 4 mg 3-19 tablet by ity of disintegrat 00:00: mouth [place] ing tablet 00 every 8 Medica l (eight) Branch hours as needed for Nausea and Vomiting (N/V). ondansetron 2021-0 Yes [id number] 4mg Take 1 [facility] 4 mg 3-19 tablet by ity of disintegrat 00:00: mouth [place] ing tablet 00 every 8 Medica l (eight) Branch hours as needed for Nausea and Vomiting (N/V). ondansetron 2021-0 Yes [id number] 4mg Take 1 [facility] 4 mg 3-19 tablet by ity of disintegrat 00:00: mouth [place] ing tablet 00 every 8 Medica l (eight) Branch hours as needed for Nausea and Vomiting (N/V). ondansetron 2021-0 Yes [id number] 4mg Take 1 [facility] 4 mg 3-19 tablet by ity of disintegrat 00:00: mouth [place] ing tablet 00 every 8 Medica l (eight) Branch hours as needed for Nausea and Vomiting (N/V). ondansetron 2021-0 Yes [id number] 4mg Take 1 [facility] 4 mg 3-19 tablet by ity of disintegrat 00:00: mouth [place] ing tablet 00 every 8 [facility] l (eight) Branch hours as needed for Nausea and Vomiting (N/V). ondansetron 2021-0 Yes [id number] 4mg Take 1 [facility] 4 mg 3-19 tablet by ity of disintegrat 00:00: mouth [place] ing tablet 00 every 8 Medica l (eight) Branch hours as needed for Nausea and Vomiting (N/V). ondansetron 2021-0 Yes [id number] 4mg Take 1 [facility] 4 mg 3-19 tablet by ity of disintegrat 00:00: mouth [place] ing tablet 00 every 8 [facility] (eight) Branch hours as needed for Nausea and Vomiting (N/V). ondansetron 2021-0 Yes [id number] 4mg Take 1 [facility] 4 mg 3-19 tablet by ity of disintegrat 00:00: mouth [place] ing tablet 00 every 8 Medica [facility] (eight) Branch hours as needed for Nausea and Vomiting (N/V). ondansetron 2021-0 Yes [id number] 4mg Take 1 [facility] 4 mg 3-19 tablet by ity of disintegrat 00:00: mouth [place] ing tablet 00 every 8 [facility] (eight) Branch hours as needed for Nausea and Vomiting (N/V). ondansetron 2-0 Yes [id number] 4mg Take 1 [facility] 4 mg 3-19 tablet by ity of disintegrat 00:00: mouth [place] ing tablet 00 every 8 [facility] (eight) Branch hours as needed for Nausea and Vomiting (N/V). ondansetron 2021-0 Yes [id number] 4mg Take 1 [facility] 4 mg 3-19 tablet by ity of disintegrat 00:00: mouth [place] ing tablet 00 every 8 [facility] (eight) Branch hours as needed for Nausea and Vomiting (N/V). ondansetron 2021-0 Yes [id number] 4mg Take 1 [facility] 4 mg 3-19 tablet by ity of disintegrat 00:00: mouth [place] ing tablet 00 every 8 [facility] (eight) Branch hours as needed for Nausea and Vomiting (N/V). ondansetron 2021-0 Yes [id number] 4mg Take 1 [facility] 4 mg 3-19 tablet by ity of disintegrat 00:00: mouth [place] ing tablet 00 every 8 [facility] (eight) Branch hours as needed for Nausea and Vomiting (N/V). ondansetron 2021-0 Yes [id number] 4mg Take 1 [facility] 4 mg 3-19 tablet by ity of disintegrat 00:00: mouth [place] ing tablet 00 every 8 [facility] (eight) Branch hours as needed for Nausea and Vomiting (N/V). ondansetron 2-0 Yes [id number] 4mg Take 1 [facility] 4 mg 3-19 tablet by ity of disintegrat 00:00: mouth [place] ing tablet 00 every 8 [facility] (eight) Branch hours as needed for Nausea and Vomiting (N/V). ondansetron 2-0 Yes [id number] 4mg Take 1 [facility] 4 mg 3-19 tablet by ity of disintegrat 00:00: mouth [place] ing tablet 00 every 8 [facility] (eight) Branch hours as needed for Nausea and Vomiting (N/V). ondansetron 2-0 Yes [id number] 4mg Take 1 [facility] 4 mg 3-19 tablet by ity of disintegrat 00:00: mouth [place] ing tablet 00 every 8 [facility] (eight) Branch hours as needed for Nausea and Vomiting (N/V). ondansetron 2-0 Yes [id number] 4mg Take 1 [facility] 4 mg 3-19 tablet by ity of disintegrat 00:00: mouth [place] ing tablet 00 every 8 [facility] (eight) Branch hours as needed for Nausea and Vomiting (N/V). ondansetron 2-0 Yes [id number] 4mg Take 1 [facility] 4 mg 3-19 tablet by ity of disintegrat 00:00: mouth [place] ing tablet 00 every 8 [facility] (eight) Branch hours as needed for Nausea and Vomiting (N/V). ondansetron 2-0 Yes [id number] 4mg Take 1 [facility] 4 mg 3-19 tablet by ity of disintegrat 00:00: mouth [place] ing tablet 00 every 8 [facility] (eight) Branch hours as needed for Nausea and Vomiting (N/V). ondansetron 2-0 Yes [id number] 4mg Take 1 [facility] 4 mg 3-19 tablet by ity of disintegrat 00:00: mouth [place] ing tablet 00 every 8 [facility] (eight) Branch hours as needed for Nausea and Vomiting (N/V). ondansetron 2-0 Yes [id number] 4mg Take 1 [facility] 4 mg 3-19 tablet by ity of disintegrat 00:00: mouth [place] ing tablet 00 every 8 [facility] (eight) Branch hours as needed for Nausea and Vomiting (N/V). ondansetron 2-0 Yes [id number] 4mg Take 1 [facility] 4 mg 3-19 tablet by ity of disintegrat 00:00: mouth [place] ing tablet 00 every 8 [facility] (eight) Branch hours as needed for Nausea and Vomiting (N/V). ondansetron 2-0 Yes [id number] 4mg Take 1 [facility] 4 mg 3-19 tablet by ity of disintegrat 00:00: mouth [place] ing tablet 00 every 8 [facility] (eight) Branch hours as needed for Nausea and Vomiting (N/V). ondansetron 2022-0 Yes [id number] 4mg Take 1 [facility] 4 mg 3-19 tablet by ity of disintegrat 00:00: mouth [place] ing tablet 00 every 8 [facility] (eight) Branch hours as needed for Nausea and Vomiting (N/V). ondansetron 2022-0 Yes [id number] 4mg Take 1 [facility] 4 mg 3-19 tablet by ity of disintegrat 00:00: mouth [place] ing tablet 00 every 8 [facility] (eight) Branch hours as needed for Nausea and Vomiting (N/V). ondansetron 2021-0 Yes [id number] 4mg Take 1 [facility] 4 mg 3-19 tablet by ity of disintegrat 00:00: mouth [place] ing tablet 00 every 8 [facility] (eight) Branch hours as needed for Nausea and Vomiting (N/V). ondansetron 2021-0 Yes [id number] 4mg Take 1 [facility] 4 mg 3-19 tablet by ity of disintegrat 00:00: mouth [place] ing tablet 00 every 8 [facility]ica [facility] (eight) Branch hours as needed for Nausea and Vomiting (N/V). ondansetron 2021-0 Yes [id number] 4mg Take 1 [facility] 4 mg 3-19 tablet by ity of disintegrat 00:00: mouth [place] ing tablet 00 every 8 [facility]ica [facility] (eight) Branch hours as needed for Nausea and Vomiting (N/V). ondansetron 2021-0 Yes [id number] 4mg Take 1 [facility] 4 mg 3-19 tablet by ity of disintegrat 00:00: mouth [place] ing tablet 00 every 8 [facility] (eight) Branch hours as needed for Nausea and Vomiting (N/V). ondansetron 2021-0 Yes [id number] 4mg Take 1 [facility] 4 mg 3-19 tablet by ity of disintegrat 00:00: mouth [place] ing tablet 00 every 8 [facility]ica [facility] (eight) Branch hours as needed for Nausea and Vomiting (N/V). ondansetron 2021-0 Yes [id number] 4mg Take 1 [facility] 4 mg 3-19 tablet by ity of disintegrat 00:00: mouth [place] ing tablet 00 every 8 [facility] (eight) Branch hours as needed for Nausea and Vomiting (N/V). ondansetron 2021-0 Yes [id number] 4mg Take 1 [facility] 4 mg 3-19 tablet by ity of disintegrat 00:00: mouth [place] ing tablet 00 every 8 [facility] (eight) Branch hours as needed for Nausea and Vomiting (N/V). ondansetron 2021-0 Yes [id number] 4mg Take 1 [facility] 4 mg 3-19 tablet by ity of disintegrat 00:00: mouth [place] ing tablet 00 every 8 [facility] (eight) Branch hours as needed for Nausea and Vomiting (N/V). dicyclomine 2022-0 Yes 10mg Take 10 mg [facility] (BENTYL) 10 2-10 by mouth 4 it y of mg capsule 14:50: (four) [place] 58 times Medical daily. Branch dicyclomine 2022-0 Yes 10mg Take 10 mg [facility] (BENTYL) 10 2-10 by mouth 4 it y of mg capsule 14:50: (four) [place] 58 times Medical daily. Branch dicyclomine 2022-0 Yes 10mg Take 10 mg [facility] (BENTYL) 10 2-10 by mouth 4 it y of mg capsule 14:50: (four) [place] 58 times Medical daily. Branch dicyclomine 2022-0 Yes 10mg Take 10 mg [facility] (BENTYL) 10 2-10 by mouth 4 it y of mg capsule 14:50: (four) [place] 58 times Medical daily. Branch dicyclomine 2022-0 Yes 10mg Take 10 mg [facility] (BENTYL) 10 2-10 by mouth 4 it y of mg capsule 14:50: (four) [place] 58 times Medical daily. Branch dicyclomine 2022-0 Yes 10mg Take 10 mg [facility] (BENTYL) 10 2-10 by mouth 4 it y of mg capsule 14:50: (four) [place] 58 times Medical daily. Branch dicyclomine 2022-0 Yes 10mg Take 10 mg [facility] (BENTYL) 10 2-10 by mouth 4 it y of mg capsule 14:50: (four) [place] 58 times Medical daily. Branch azelastine 2-0 Yes [id number] 1{spray Use 1 [facility] 137 mcg 1-22 } [place] in ity of (0.1 %) 00:00: each [place] nasal spray 00 nostril 2 Med ical (two) Branch times daily. Use in each nostril as directed fluticasone 2-0 Yes [id number] 1{spray Use 1 [facility] propionate 1-22 } [place] in ity o f 50 00:00: each [place] mcg/actuati 00 nostril Medic al on nasal daily. Branch spray azelastine 2021-0 Yes [id number] 1{spray Use 1 [facility] 137 mcg 1-22 } [place] in ity of (0.1 %) 00:00: each [place] nasal spray 00 nostril 2 Med ical (two) Branch times daily. Use in each nostril as directed fluticasone 2-0 Yes [id number] 1{spray Use 1 [facility] propionate 1-22 } [place] in ity o f 50 00:00: each [place] mcg/actuati 00 nostril Medic al on nasal daily. Branch spray azelastine 2021-0 Yes [id number] 1{spray Use 1 [facility] 137 mcg 1-22 } [place] in ity of (0.1 %) 00:00: each [place] nasal spray 00 nostril 2 Med ical (two) Branch times daily. Use in each nostril as directed fluticasone 2021-0 Yes [id number] 1{spray Use 1 [facility] propionate 1-22 } [place] in ity o f 50 00:00: each [place] mcg/actuati 00 nostril Medic al on nasal daily. Branch spray azelastine 2021-0 Yes [id number] 1{spray Use 1 [facility] 137 mcg 1-22 } [place] in ity of (0.1 %) 00:00: each [place] nasal spray 00 nostril 2 Med ical (two) Branch times daily. Use in each nostril as directed fluticasone 2021-0 Yes [id number] 1{spray Use 1 [facility] propionate 1-22 } [place] in ity o f 50 00:00: each [place] mcg/actuati 00 nostril Medic al on nasal daily. Branch spray azelastine 2021-0 Yes [id number] 1{spray Use 1 [facility] 137 mcg 1-22 } [place] in ity of (0.1 %) 00:00: each [place] nasal spray 00 nostril 2 Med ical (two) Branch times daily. Use in each nostril as directed fluticasone 2-0 Yes [id number] 1{spray Use 1 [facility] propionate 1-22 } [place] in ity o f 50 00:00: each [place] mcg/actuati 00 nostril Medic al on nasal daily. Branch spray azelastine 2022-0 Yes [id number] 1{spray Use 1 [facility] 137 mcg 1-22 } [place] in ity of (0.1 %) 00:00: each [place] nasal spray 00 nostril 2 Med ical (two) Branch times daily. Use in each nostril as directed fluticasone 2021-0 Yes [id number] 1{spray Use 1 [facility] propionate 1-22 } [place] in ity o f 50 00:00: each [place] mcg/actuati 00 nostril Medic al on nasal daily. Branch spray azelastine 2021-0 Yes [id number] 1{spray Use 1 [facility] 137 mcg 1-22 } [place] in ity of (0.1 %) 00:00: each [place] nasal spray 00 nostril 2 Med ical (two) Branch times daily. Use in each nostril as directed fluticasone 2021-0 Yes [id number] 1{spray Use 1 [facility] propionate 1-22 } [place] in ity o f 50 00:00: each [place] mcg/actuati 00 nostril Medic al on nasal daily. Branch spray azelastine 2021-0 Yes [id number] 1{spray Use 1 [facility] 137 mcg 1-22 } [place] in ity of (0.1 %) 00:00: each [place] nasal spray 00 nostril 2 Med ical (two) Branch times daily. Use in each nostril as directed fluticasone 2021-0 Yes [id number] 1{spray Use 1 [facility] propionate 1-22 } [place] in ity o f 50 00:00: each [place] mcg/actuati 00 nostril Medic al on nasal daily. Branch spray azelastine 2021-0 Yes [id number] 1{spray Use 1 [facility] 137 mcg 1-22 } [place] in ity of (0.1 %) 00:00: each [place] nasal spray 00 nostril 2 Med ical (two) Branch times daily. Use in each nostril as directed fluticasone 2021-0 Yes [id number] 1{spray Use 1 [facility] propionate 1-22 } [place] in ity o f 50 00:00: each [place] mcg/actuati 00 nostril Medic al on nasal daily. Branch spray azelastine 2021-0 Yes [id number] 1{spray Use 1 [facility] 137 mcg 1-22 } [place] in ity of (0.1 %) 00:00: each [place] nasal spray 00 nostril 2 Med ical (two) Branch times daily. Use in each nostril as directed fluticasone 2021-0 Yes [id number] 1{spray Use 1 [facility] propionate 1-22 } [place] in ity o f 50 00:00: each [place] mcg/actuati 00 nostril Medic al on nasal daily. Branch spray azelastine 2-0 Yes [id number] 1{spray Use 1 [facility] 137 mcg 1-22 } [place] in ity of (0.1 %) 00:00: each [place] nasal spray 00 nostril 2 Med ical (two) Branch times daily. Use in each nostril as directed fluticasone 2022-0 Yes [id number] 1{spray Use 1 [facility] propionate 1-22 } [place] in ity o f 50 00:00: each [place] mcg/actuati 00 nostril Medic al on nasal daily. Branch spray azelastine 2021-0 Yes [id number] 1{spray Use 1 [facility] 137 mcg 1-22 } [place] in ity of (0.1 %) 00:00: each [place] nasal spray 00 nostril 2 Med ical (two) Branch times daily. Use in each nostril as directed fluticasone 2-0 Yes [id number] 1{spray Use 1 [facility] propionate 1-22 } [place] in ity o f 50 00:00: each [place] mcg/actuati 00 nostril Medic al on nasal daily. Branch spray azelastine 2021-0 Yes [id number] 1{spray Use 1 [facility] 137 mcg 1-22 } [place] in ity of (0.1 %) 00:00: each [place] nasal spray 00 nostril 2 Med ical (two) Branch times daily. Use in each nostril as directed fluticasone 2-0 Yes [id number] 1{spray Use 1 [facility] propionate 1-22 } [place] in ity o f 50 00:00: each [place] mcg/actuati 00 nostril Medic al on nasal daily. Branch spray azelastine 2022-0 Yes [id number] 1{spray Use 1 [facility] 137 mcg 1-22 } [place] in ity of (0.1 %) 00:00: each [place] nasal spray 00 nostril 2 Med ical (two) Branch times daily. Use in each nostril as directed fluticasone 2-0 Yes [id number] 1{spray Use 1 [facility] propionate 1-22 } [place] in ity o f 50 00:00: each [place] mcg/actuati 00 nostril Medic al on nasal daily. Branch spray azelastine 2022-0 Yes [id number] 1{spray Use 1 [facility] 137 mcg 1-22 } [place] in ity of (0.1 %) 00:00: each [place] nasal spray 00 nostril 2 Med ical (two) Branch times daily. Use in each nostril as directed fluticasone 2021-0 Yes [id number] 1{spray Use 1 [facility] propionate 1-22 } [place] in ity o f 50 00:00: each [place] mcg/actuati 00 nostril Medic al on nasal daily. Branch spray azelastine 2021-0 Yes [id number] 1{spray Use 1 [facility] 137 mcg 1-22 } [place] in ity of (0.1 %) 00:00: each [place] nasal spray 00 nostril 2 Med ical (two) Branch times daily. Use in each nostril as directed fluticasone 2021-0 Yes [id number] 1{spray Use 1 [facility] propionate 1-22 } [place] in ity o f 50 00:00: each [place] mcg/actuati 00 nostril Medic al on nasal daily. Branch spray azelastine 2021-0 Yes [id number] 1{spray Use 1 [facility] 137 mcg 1-22 } [place] in ity of (0.1 %) 00:00: each [place] nasal spray 00 nostril 2 Med ical (two) Branch times daily. Use in each nostril as directed fluticasone 2021-0 Yes [id number] 1{spray Use 1 [facility] propionate 1-22 } [place] in ity o f 50 00:00: each [place] mcg/actuati 00 nostril Medic al on nasal daily. Branch spray azelastine 2021-0 Yes [id number] 1{spray Use 1 [facility] 137 mcg 1-22 } [place] in ity of (0.1 %) 00:00: each [place] nasal spray 00 nostril 2 Med ical (two) Branch times daily. Use in each nostril as directed fluticasone 2021-0 Yes [id number] 1{spray Use 1 [facility] propionate 1-22 } [place] in ity o f 50 00:00: each [place] mcg/actuati 00 nostril Medic al on nasal daily. Branch spray azelastine 2021-0 Yes [id number] 1{spray Use 1 [facility] 137 mcg 1-22 } [place] in ity of (0.1 %) 00:00: each [place] nasal spray 00 nostril 2 Med ical (two) Branch times daily. Use in each nostril as directed fluticasone 2-0 Yes [id number] 1{spray Use 1 [facility] propionate 1-22 } [place] in ity o f 50 00:00: each [place] mcg/actuati 00 nostril Medic al on nasal daily. Branch spray azelastine 2021-0 Yes [id number] 1{spray Use 1 [facility] 137 mcg 1-22 } [place] in ity of (0.1 %) 00:00: each [place] nasal spray 00 nostril 2 Med ical (two) Branch times daily. Use in each nostril as directed fluticasone 2021-0 Yes [id number] 1{spray Use 1 [facility] propionate 1-22 } [place] in ity o f 50 00:00: each [place] mcg/actuati 00 nostril Medic al on nasal daily. Branch spray azelastine 2021-0 Yes [id number] 1{spray Use 1 [facility] 137 mcg 1-22 } [place] in ity of (0.1 %) 00:00: each [place] nasal spray 00 nostril 2 Med ical (two) Branch times daily. Use in each nostril as directed fluticasone 2021-0 Yes [id number] 1{spray Use 1 [facility] propionate 1-22 } [place] in ity o f 50 00:00: each [place] mcg/actuati 00 nostril Medic al on nasal daily. Branch spray azelastine 2021-0 Yes [id number] 1{spray Use 1 [facility] 137 mcg 1-22 } [place] in ity of (0.1 %) 00:00: each [place] nasal spray 00 nostril 2 Med ical (two) Branch times daily. Use in each nostril as directed fluticasone 2-0 Yes [id number] 1{spray Use 1 [facility] propionate 1-22 } [place] in ity o f 50 00:00: each [place] mcg/actuati 00 nostril Medic al on nasal daily. Branch spray azelastine 2021-0 Yes [id number] 1{spray Use 1 [facility] 137 mcg 1-22 } [place] in ity of (0.1 %) 00:00: each [place] nasal spray 00 nostril 2 Med ical (two) Branch times daily. Use in each nostril as directed fluticasone 2021-0 Yes [id number] 1{spray Use 1 [facility] propionate 1-22 } [place] in ity o f 50 00:00: each [place] mcg/actuati 00 nostril Medic al on nasal daily. Branch spray azelastine 2021-0 Yes [id number] 1{spray Use 1 [facility] 137 mcg 1-22 } [place] in ity of (0.1 %) 00:00: each [place] nasal spray 00 nostril 2 Med ical (two) Branch times daily. Use in each nostril as directed fluticasone 2021-0 Yes [id number] 1{spray Use 1 [facility] propionate 1-22 } [place] in ity o f 50 00:00: each [place] mcg/actuati 00 nostril Medic al on nasal daily. Branch spray azelastine 2021-0 Yes [id number] 1{spray Use 1 [facility] 137 mcg 1-22 } [place] in ity of (0.1 %) 00:00: each [place] nasal spray 00 nostril 2 Med ical (two) Branch times daily. Use in each nostril as directed fluticasone 2021-0 Yes [id number] 1{spray Use 1 [facility] propionate 1-22 } [place] in ity o f 50 00:00: each [place] mcg/actuati 00 nostril Medic al on nasal daily. Branch spray azelastine 2021-0 Yes [id number] 1{spray Use 1 [facility] 137 mcg 1-22 } [place] in ity of (0.1 %) 00:00: each [place] nasal spray 00 nostril 2 Med ical (two) Branch times daily. Use in each nostril as directed fluticasone 2021-0 Yes [id number] 1{spray Use 1 [facility] propionate 1-22 } [place] in ity o f 50 00:00: each [place] mcg/actuati 00 nostril Medic al on nasal daily. Branch spray azelastine 2021-0 Yes [id number] 1{spray Use 1 [facility] 137 mcg 1-22 } [place] in ity of (0.1 %) 00:00: each [place] nasal spray 00 nostril 2 Med ical (two) Branch times daily. Use in each nostril as directed fluticasone 2021-0 Yes [id number] 1{spray Use 1 [facility] propionate 1-22 } [place] in ity o f 50 00:00: each [place] mcg/actuati 00 nostril Medic al on nasal daily. Branch spray azelastine 2022-0 Yes [id number] 1{spray Use 1 [facility] 137 mcg 1-22 } [place] in ity of (0.1 %) 00:00: each [place] nasal spray 00 nostril 2 Med ical (two) Branch times daily. Use in each nostril as directed fluticasone 2022-0 Yes [id number] 1{spray Use 1 [facility] propionate 1-22 } [place] in ity o f 50 00:00: each [place] mcg/actuati 00 nostril Medic al on nasal daily. Branch spray azelastine 2021-0 Yes [id number] 1{spray Use 1 [facility] 137 mcg 1-22 } [place] in ity of (0.1 %) 00:00: each [place] nasal spray 00 nostril 2 Med ical (two) Branch times daily. Use in each nostril as directed fluticasone 2-0 Yes [id number] 1{spray Use 1 [facility] propionate 1-22 } [place] in ity o f 50 00:00: each [place] mcg/actuati 00 nostril Medic al on nasal daily. Branch spray azelastine 2021-0 Yes [id number] 1{spray Use 1 [facility] 137 mcg 1-22 } [place] in ity of (0.1 %) 00:00: each [place] nasal spray 00 nostril 2 Med ical (two) Branch times daily. Use in each nostril as directed fluticasone 2-0 Yes [id number] 1{spray Use 1 [facility] propionate 1-22 } [place] in ity o f 50 00:00: each [place] mcg/actuati 00 nostril Medic al on nasal daily. Branch spray azelastine 2022-0 Yes [id number] 1{spray Use 1 [facility] 137 mcg 1-22 } [place] in ity of (0.1 %) 00:00: each [place] nasal spray 00 nostril 2 Med ical (two) Branch times daily. Use in each nostril as directed fluticasone 2022-0 Yes [id number] 1{spray Use 1 [facility] propionate 1-22 } [place] in ity o f 50 00:00: each [place] mcg/actuati 00 nostril Medic al on nasal daily. Branch spray azelastine 2022-0 Yes [id number] 1{spray Use 1 [facility] 137 mcg 1-22 } [place] in ity of (0.1 %) 00:00: each [place] nasal spray 00 nostril 2 Med ical (two) Branch times daily. Use in each nostril as directed fluticasone 2021-0 Yes [id number] 1{spray Use 1 [facility] propionate 1-22 } [place] in ity o f 50 00:00: each [place] mcg/actuati 00 nostril Medic al on nasal daily. Branch spray azelastine 2021-0 Yes [id number] 1{spray Use 1 [facility] 137 mcg 1-22 } [place] in ity of (0.1 %) 00:00: each [place] nasal spray 00 nostril 2 Med ical (two) Branch times daily. Use in each nostril as directed fluticasone 2021-0 Yes [id number] 1{spray Use 1 [facility] propionate 1-22 } [place] in ity o f 50 00:00: each [place] mcg/actuati 00 nostril Medic al on nasal daily. Branch spray azelastine 2021-0 Yes [id number] 1{spray Use 1 [facility] 137 mcg 1-22 } [place] in ity of (0.1 %) 00:00: each [place] nasal spray 00 nostril 2 Med ical (two) Branch times daily. Use in each nostril as directed fluticasone 2021-0 Yes [id number] 1{spray Use 1 [facility] propionate 1-22 } [place] in ity o f 50 00:00: each [place] mcg/actuati 00 nostril Medic al on nasal daily. Branch spray azelastine 2021-0 Yes [id number] 1{spray Use 1 [facility] 137 mcg 1-22 } [place] in ity of (0.1 %) 00:00: each [place] nasal spray 00 nostril 2 Med ical (two) Branch times daily. Use in each nostril as directed fluticasone 2021-0 Yes [id number] 1{spray Use 1 [facility] propionate 1-22 } [place] in ity o f 50 00:00: each [place] mcg/actuati 00 nostril Medic al on nasal daily. Branch spray azelastine 2021-0 Yes [id number] 1{spray Use 1 [facility] 137 mcg 1-22 } [place] in ity of (0.1 %) 00:00: each [place] nasal spray 00 nostril 2 Med ical (two) Branch times daily. Use in each nostril as directed fluticasone 2-0 Yes [id number] 1{spray Use 1 [facility] propionate 1-22 } [place] in ity o f 50 00:00: each [place] mcg/actuati 00 nostril Medic al on nasal daily. Branch spray azelastine 2021-0 Yes [id number] 1{spray Use 1 [facility] 137 mcg 1-22 } [place] in ity of (0.1 %) 00:00: each [place] nasal spray 00 nostril 2 Med ical (two) Branch times daily. Use in each nostril as directed fluticasone 2021-0 Yes [id number] 1{spray Use 1 [facility] propionate 1-22 } [place] in ity o f 50 00:00: each [place] mcg/actuati 00 nostril Medic al on nasal daily. Branch spray azelastine 2021-0 Yes [id number] 1{spray Use 1 [facility] 137 mcg 1-22 } [place] in ity of (0.1 %) 00:00: each [place] nasal spray 00 nostril 2 Med ical (two) Branch times daily. Use in each nostril as directed fluticasone 2021-0 Yes [id number] 1{spray Use 1 [facility] propionate 1-22 } [place] in ity o f 50 00:00: each [place] mcg/actuati 00 nostril Medic al on nasal daily. Branch spray azelastine 2021-0 Yes [id number] 1{spray Use 1 [facility] 137 mcg 1-22 } [place] in ity of (0.1 %) 00:00: each [place] nasal spray 00 nostril 2 Med ical (two) Branch times daily. Use in each nostril as directed fluticasone 2-0 Yes [id number] 1{spray Use 1 [facility] propionate 1-22 } [place] in ity o f 50 00:00: each [place] mcg/actuati 00 nostril Medic al on nasal daily. Branch spray azelastine 2021-0 Yes [id number] 1{spray Use 1 [facility] 137 mcg 1-22 } [place] in ity of (0.1 %) 00:00: each [place] nasal spray 00 nostril 2 Med ical (two) Branch times daily. Use in each nostril as directed fluticasone 2-0 Yes [id number] 1{spray Use 1 [facility] propionate 1-22 } [place] in ity o f 50 00:00: each [place] mcg/actuati 00 nostril Medic al on nasal daily. Branch spray azelastine 2021-0 Yes [id number] 1{spray Use 1 [facility] 137 mcg 1-22 } [place] in ity of (0.1 %) 00:00: each [place] nasal spray 00 nostril 2 Med ical (two) Branch times daily. Use in each nostril as directed fluticasone 2-0 Yes [id number] 1{spray Use 1 [facility] propionate 1-22 } [place] in ity o f 50 00:00: each [place] mcg/actuati 00 nostril Medic al on nasal daily. Branch spray azelastine 2021-0 Yes [id number] 1{spray Use 1 [facility] 137 mcg 1-22 } [place] in ity of (0.1 %) 00:00: each [place] nasal spray 00 nostril 2 Med ical (two) Branch times daily. Use in each nostril as directed fluticasone 2021-0 Yes [id number] 1{spray Use 1 [facility] propionate 1-22 } [place] in ity o f 50 00:00: each [place] mcg/actuati 00 nostril Medic al on nasal daily. Branch spray azelastine 2021-0 Yes [id number] 1{spray Use 1 [facility] 137 mcg 1-22 } [place] in ity of (0.1 %) 00:00: each [place] nasal spray 00 nostril 2 Med ical (two) Branch times daily. Use in each nostril as directed fluticasone 2-0 Yes [id number] 1{spray Use 1 [facility] propionate 1-22 } [place] in ity o f 50 00:00: each [place] mcg/actuati 00 nostril Medic al on nasal daily. Branch spray azelastine 2022-0 Yes [id number] 1{spray Use 1 [facility] 137 mcg 1-22 } [place] in ity of (0.1 %) 00:00: each [place] nasal spray 00 nostril 2 Med ical (two) Branch times daily. Use in each nostril as directed fluticasone 2022-0 Yes [id number] 1{spray Use 1 [facility] propionate 1-22 } [place] in ity o f 50 00:00: each [place] mcg/actuati 00 nostril Medic al on nasal daily. Branch spray azelastine 0 Yes [id number] 1{spray Use 1 [facility] 137 mcg 1-22 } [place] in ity of (0.1 %) 00:00: each [place] nasal spray 00 nostril 2 Med ical (two) Branch times daily. Use in each nostril as directed fluticasone 2021-0 Yes [id number] 1{spray Use 1 [facility] propionate 1-22 } [place] in ity o f 50 00:00: each [place] mcg/actuati 00 nostril Medic al on nasal daily. Branch spray azelastine 0 Yes [id number] 1{spray Use 1 [facility] 137 mcg 1-22 } [place] in ity of (0.1 %) 00:00: each [place] nasal spray 00 nostril 2 Med ical (two) Branch times daily. Use in each nostril as directed fluticasone 2021-0 Yes [id number] 1{spray Use 1 [facility] propionate 1-22 } [place] in ity o f 50 00:00: each [place] mcg/actuati 00 nostril Medic al on nasal daily. Branch spray EPINEPHrine 0 Yes [facility] 0.3 mg/0.3 1-03 ity of mL 00:00: [place] injection Medical Branch EPINEPHrine 0 Yes Univer s [...] [place] injection 00 Medical Branch EPINEPHrine 2022-0 2022- No [facility] rs 0.3 mg/0.3 09-08 ity of mL 00:00: 00:00 [place] injection 00 :00 Medical Branch atorvastati 1-0 Yes TAKE 1 [facility] ers n 20 mg 7-24 TABLET BY ity of tablet 00:00: MOUTH [place] 00 EVERY DAY Medical Branch DIRECTED atorvastati 1-0 Yes TAKE 1 [facility] ers n 20 mg 7-24 TABLET BY ity of tablet 00:00: MOUTH [place] 00 EVERY DAY Medical Branch DIRECTED atorvastati 2021-0 Yes TAKE 1 [facility] ers n 20 mg 7-24 TABLET BY ity of tablet 00:00: MOUTH [place] 00 EVERY DAY Medical Branch DIRECTED atorvastati 2020-0 Yes TAKE 1 [facility] ers n 20 mg 7-24 TABLET BY ity of tablet 00:00: [facility] 00 EVERY DAY Medical Branch DIRECTED atorvastati 1-0 Yes TAKE 1 [facility] ers n 20 mg 7-24 TABLET BY ity of tablet 00:00: [facility] 00 EVERY DAY Medical Branch DIRECTED atorvastati 1-0 Yes TAKE 1 [facility] ers n 20 mg 7-24 TABLET BY ity of tablet 00:00: MOUTH [place] 00 EVERY DAY Medical Branch DIRECTED atorvastati 1-0 Yes TAKE 1 [facility] ers n 20 mg 7-24 TABLET BY ity of tablet 00:00: [facility] 00 EVERY DAY Medical Branch DIRECTED atorvastati 1-0 Yes TAKE 1 [facility] ers n 20 mg 7-24 TABLET BY ity of tablet 00:00: [facility] 00 EVERY DAY Medical Branch DIRECTED atorvastati 2021-0 Yes TAKE 1 [facility] ers n 20 mg 7-24 TABLET BY ity of tablet 00:00: MOUTH [place] 00 EVERY DAY Medical Branch DIRECTED atorvastati 1-0 Yes TAKE 1 [facility] ers n 20 mg 7-24 TABLET BY ity of tablet 00:00: MOUTH [place] 00 EVERY DAY Medical Branch DIRECTED atorvastati 1-0 Yes TAKE 1 [facility] ers n 20 mg 7-24 TABLET BY ity of tablet 00:00: MOUTH [place] 00 EVERY DAY Medical Branch DIRECTED atorvastati 1-0 Yes TAKE 1 [facility] ers n 20 mg 7-24 TABLET BY ity of tablet 00:00: MOUTH [place] 00 EVERY DAY Medical Branch DIRECTED atorvastati [...] EVERY DAY Medical Branch DIRECTED albuterol Yes [id number] 2{puff} Inhale 2 [facility] 90 6-25 Puffs ity of mcg/actuati 00:00: every 6 [place] as on inhaler 00 (six) Medical hours as Branch needed for Wheezing or Shortness of Breath. albuterol Yes [id number] 2{puff} Inhale 2 [facility] 90 6-25 Puffs ity of mcg/actuati 00:00: every 6 [place] as on inhaler 00 (six) Medical hours as Branch needed for Wheezing or Shortness of Breath. albuterol Yes [id number] 2{puff} Inhale 2 [facility] 90 6-25 Puffs ity of mcg/actuati 00:00: every 6 [place] as on inhaler 00 (six) Medical hours as Branch needed for Wheezing or Shortness of Breath. albuterol Yes [id number] 2{puff} Inhale 2 [facility] 90 6-25 Puffs ity of mcg/actuati 00:00: every 6 [place] as on inhaler 00 (six) Medical hours as Branch needed for Wheezing or Shortness of Breath. albuterol Yes [id number] 2{puff} Inhale 2 [facility] 90 6-25 Puffs ity of mcg/actuati 00:00: every 6 [place] as on inhaler 00 (six) Medical hours as Branch needed for Wheezing or Shortness of Breath. albuterol Yes [id number] 2{puff} Inhale 2 [facility] 90 6-25 Puffs ity of mcg/actuati 00:00: every 6 [place] as on inhaler 00 (six) Medical hours as Branch needed for Wheezing or Shortness of Breath. albuterol Yes [id number] 2{puff} Inhale 2 [facility] 90 6-25 Puffs ity of mcg/actuati 00:00: every 6 [place] as on inhaler 00 (six) Medical hours as Branch needed for Wheezing or Shortness of Breath. albuterol Yes [id number] 2{puff} Inhale 2 [facility] 90 6-25 Puffs ity of mcg/actuati 00:00: every 6 [place] on inhaler 00 (six) Medical hours as Branch needed for Wheezing or Shortness of Breath. albuterol Yes [id number] 2{puff} Inhale 2 [facility] 90 6-25 Puffs ity of mcg/actuati 00:00: every 6 [place] as on inhaler 00 (six) Medical hours as Branch needed for Wheezing or Shortness of Breath. albuterol Yes [id number] 2{puff} Inhale 2 [facility] 90 6-25 Puffs ity of mcg/actuati 00:00: every 6 [place] as on inhaler 00 (six) Medical hours as Branch needed for Wheezing or Shortness of Breath. albuterol Yes [id number] 2{puff} Inhale 2 [facility] 90 6-25 Puffs ity of mcg/actuati 00:00: every 6 [place] on inhaler 00 (six) Medical hours as Branch needed for Wheezing or Shortness of Breath. albuterol Yes [id number] 2{puff} Inhale 2 [facility] 90 6-25 Puffs ity of mcg/actuati 00:00: every 6 [place] on inhaler 00 (six) Medical hours as Branch needed for Wheezing or Shortness of Breath. albuterol Yes [id number] 2{puff} Inhale 2 [facility] 90 6-25 Puffs ity of mcg/actuati 00:00: every 6 [place] on inhaler 00 (six) Medical hours as Branch needed for Wheezing or Shortness of Breath. albuterol Yes [id number] 2{puff} Inhale 2 [facility] 90 6-25 Puffs ity of mcg/actuati 00:00: every 6 [place] on inhaler 00 (six) Medical hours as Branch needed for Wheezing or Shortness of Breath. albuterol Yes [id number] 2{puff} Inhale 2 [facility] 90 6-25 Puffs ity of mcg/actuati 00:00: every 6 [place] on inhaler 00 (six) Medical hours as Branch needed for Wheezing or Shortness of Breath. albuterol Yes [id number] 2{puff} Inhale 2 [facility] 90 6-25 Puffs ity of mcg/actuati 00:00: every 6 [place] on inhaler 00 (six) Medical hours as Branch needed for Wheezing or Shortness of Breath. albuterol Yes [id number] 2{puff} Inhale 2 [facility] 90 6-25 Puffs ity of mcg/actuati 00:00: every 6 [place] on inhaler 00 (six) Medical hours as Branch needed for Wheezing or Shortness of Breath. albuterol Yes [id number] 2{puff} Inhale 2 [facility] 90 6-25 Puffs ity of mcg/actuati 00:00: every 6 [place] on inhaler 00 (six) Medical hours as Branch needed for Wheezing or Shortness of Breath. albuterol Yes [id number] 2{puff} Inhale 2 [facility] 90 6-25 Puffs ity of mcg/actuati 00:00: every 6 [place] on inhaler 00 (six) Medical hours as Branch needed for Wheezing or Shortness of Breath. albuterol Yes [id number] 2{puff} Inhale 2 [facility] 90 6-25 Puffs ity of mcg/actuati 00:00: every 6 [place] on inhaler 00 (six) Medical hours as Branch needed for Wheezing or Shortness of Breath. albuterol Yes [id number] 2{puff} Inhale 2 [facility] 90 6-25 Puffs ity of mcg/actuati 00:00: every 6 [place] on inhaler 00 (six) Medical hours as Branch needed for Wheezing or Shortness of Breath. albuterol Yes [id number] 2{puff} Inhale 2 [facility] 90 6-25 Puffs ity of mcg/actuati 00:00: every 6 [place] on inhaler 00 (six) Medical hours as Branch needed for Wheezing or Shortness of Breath. albuterol Yes [id number] 2{puff} Inhale 2 [facility] 90 6-25 Puffs ity of mcg/actuati 00:00: every 6 [place] on inhaler 00 (six) Medical hours as Branch needed for Wheezing or Shortness of Breath. albuterol Yes [id number] 2{puff} Inhale 2 [facility] 90 6-25 Puffs ity of mcg/actuati 00:00: every 6 [place] on inhaler 00 (six) Medical hours as Branch needed for Wheezing or Shortness of Breath. albuterol Yes [id number] 2{puff} Inhale 2 [facility] 90 6-25 Puffs ity of mcg/actuati 00:00: every 6 [place] on inhaler 00 (six) Medical hours as Branch needed for Wheezing or Shortness of Breath. albuterol Yes [id number] 2{puff} Inhale 2 [facility] 90 6-25 Puffs ity of mcg/actuati 00:00: every 6 [place] on inhaler 00 (six) Medical hours as Branch needed for Wheezing or Shortness of Breath. albuterol Yes [id number] 2{puff} Inhale 2 [facility] 90 6-25 Puffs ity of mcg/actuati 00:00: every 6 [place] on inhaler 00 (six) Medical hours as Branch needed for Wheezing or Shortness of Breath. albuterol Yes [id number] 2{puff} Inhale 2 [facility] 90 6-25 Puffs ity of mcg/actuati 00:00: every 6 [place] on inhaler 00 (six) Medical hours as Branch needed for Wheezing or Shortness of Breath. albuterol Yes [id number] 2{puff} Inhale 2 [facility] 90 6-25 Puffs ity of mcg/actuati 00:00: every 6 [place] on inhaler 00 (six) Medical hours as Branch needed for Wheezing or Shortness of Breath. albuterol Yes [id number] 2{puff} Inhale 2 [facility] 90 6-25 Puffs ity of mcg/actuati 00:00: every 6 [place] on inhaler 00 (six) Medical hours as Branch needed for Wheezing or Shortness of Breath. albuterol Yes [id number] 2{puff} Inhale 2 [facility] 90 6-25 Puffs ity of mcg/actuati 00:00: every 6 [place] on inhaler 00 (six) Medical hours as Branch needed for Wheezing or Shortness of Breath. albuterol Yes [id number] 2{puff} Inhale 2 [facility] 90 6-25 Puffs ity of mcg/actuati 00:00: every 6 [place] on inhaler 00 (six) Medical hours as Branch needed for Wheezing or Shortness of Breath. albuterol Yes [id number] 2{puff} Inhale 2 [facility] 90 6-25 Puffs ity of mcg/actuati 00:00: every 6 [place] on inhaler 00 (six) Medical hours as Branch needed for Wheezing or Shortness of Breath. albuterol Yes [id number] 2{puff} Inhale 2 [facility] 90 6-25 Puffs ity of mcg/actuati 00:00: every 6 [place] on inhaler 00 (six) Medical hours as Branch needed for Wheezing or Shortness of Breath. albuterol Yes [id number] 2{puff} Inhale 2 [facility] 90 6-25 Puffs ity of mcg/actuati 00:00: every 6 [place] on inhaler 00 (six) Medical hours as Branch needed for Wheezing or Shortness of Breath. albuterol Yes [id number] 2{puff} Inhale 2 [facility] 90 6-25 Puffs ity of mcg/actuati 00:00: every 6 [place] on inhaler 00 (six) Medical hours as Branch needed for Wheezing or Shortness of Breath. albuterol Yes [id number] 2{puff} Inhale 2 [facility] 90 6-25 Puffs ity of mcg/actuati 00:00: every 6 [place] on inhaler 00 (six) Medical hours as Branch needed for Wheezing or Shortness of Breath. albuterol Yes [id number] 2{puff} Inhale 2 [facility] 90 6-25 Puffs ity of mcg/actuati 00:00: every 6 [place] on inhaler 00 (six) Medical hours as Branch needed for Wheezing or Shortness of Breath. albuterol Yes [id number] 2{puff} Inhale 2 [facility] 90 6-25 Puffs ity of mcg/actuati 00:00: every 6 [place] on inhaler 00 (six) Medical hours as Branch needed for Wheezing or Shortness of Breath. albuterol Yes [id number] 2{puff} Inhale 2 [facility] 90 6-25 Puffs ity of mcg/actuati 00:00: every 6 [place] on inhaler 00 (six) Medical hours as Branch needed for Wheezing or Shortness of Breath. albuterol Yes [id number] 2{puff} Inhale 2 [facility] 90 6-25 Puffs ity of mcg/actuati 00:00: every 6 [place] on inhaler 00 (six) Medical hours as Branch needed for Wheezing or Shortness of Breath. albuterol Yes [id number] 2{puff} Inhale 2 [facility] 90 6-25 Puffs ity of mcg/actuati 00:00: every 6 [place] on inhaler 00 (six) Medical hours as Branch needed for Wheezing or Shortness of Breath. albuterol Yes [id number] 2{puff} Inhale 2 [facility] 90 6-25 Puffs ity of mcg/actuati 00:00: every 6 [place] as on inhaler 00 (six) Medical hours as Branch needed for Wheezing or Shortness of Breath. albuterol Yes [id number] 2{puff} Inhale 2 [facility] 90 6-25 Puffs ity of mcg/actuati 00:00: every 6 [place] on inhaler 00 (six) Medical hours as Branch needed for Wheezing or Shortness of Breath. albuterol Yes [id number] 2{puff} Inhale 2 [facility] 90 6-25 Puffs ity of mcg/actuati 00:00: every 6 [place] on inhaler 00 (six) Medical hours as Branch needed for Wheezing or Shortness of Breath. albuterol Yes [id number] 2{puff} Inhale 2 [facility] 90 6-25 Puffs ity of mcg/actuati 00:00: every 6 [place] on inhaler 00 (six) Medical hours as Branch needed for Wheezing or Shortness of Breath. cyclobenzap Yes TAKE 1 [facility] ers rine 10 mg 5-06 TABLET BY ity of tablet 00:00: MOUTH AT [address] Medical DO NOT Branch DRIVE WITH MUSCLE RELAXER cyclobenzap 2020-0 Yes TAKE 1 [facility] ers rine 10 mg 5-06 TABLET BY ity of tablet 00:00: MOUTH AT [address] Medical DO NOT Branch DRIVE WITH MUSCLE RELAXER cyclobenzap 2020-0 Yes TAKE 1 [facility] ers rine 10 mg 5-06 TABLET BY ity of tablet 00:00: MOUTH AT [address] Medical DO NOT Branch DRIVE WITH MUSCLE RELAXER cyclobenzap 2020-0 Yes TAKE 1 [facility] ers rine 10 mg 5-06 TABLET BY ity of tablet 00:00: MOUTH AT [address] Medical DO NOT Branch DRIVE WITH MUSCLE RELAXER cyclobenzap 2020-0 Yes TAKE 1 [facility] ers rine 10 mg 5-06 TABLET BY ity of tablet 00:00: MOUTH AT [address] Medical DO NOT Branch DRIVE WITH MUSCLE RELAXER cyclobenzap 2020-0 Yes TAKE 1 [facility] ers rine 10 mg 5-06 TABLET BY ity of tablet 00:00: MOUTH AT [address] Medical DO NOT Branch DRIVE WITH MUSCLE RELAXER cyclobenzap 2020-0 Yes TAKE 1 [facility] ers rine 10 mg 5-06 TABLET BY ity of tablet 00:00: MOUTH AT [address] Medical DO NOT Branch DRIVE WITH MUSCLE RELAXER cyclobenzap 2020-0 Yes 10mg Take 10 mg Univers rine 10 mg 5-06 by mouth ity o f tablet 00:00: at bedtime [place] 00 as needed Medical for Muscle Branch Spasms. cyclobenzap 2021-0 Yes 10mg Take 10 mg [facility] rine 10 mg 5-06 by mouth ity o f tablet 00:00: at bedtime [place] 00 as needed Medical for Muscle Branch Spasms. cyclobenzap 2021-0 Yes 10mg Take 10 mg [facility] rine 10 mg 5-06 by mouth ity o f tablet 00:00: at bedtime [place] 00 as needed Medical for Muscle Branch Spasms. cyclobenzap 2021-0 Yes 10mg Take 10 mg [facility] rine 10 mg 5-06 by mouth ity o f tablet 00:00: at bedtime [place] 00 as needed Medical for Muscle Branch Spasms. cyclobenzap 2021-0 Yes 10mg Take 10 mg [facility] rine 10 mg 5-06 by mouth ity o f tablet 00:00: at bedtime [place] 00 as needed Medical for Muscle Branch Spasms. cyclobenzap 1-0 Yes 10mg Take 10 mg Univers rine 10 mg 5-06 by mouth ity o f tablet 00:00: at bedtime [place] 00 as needed Medical for Muscle Branch Spasms. cyclobenzap 1-0 Yes 10mg Take 10 mg [facility] rine 10 mg 5-06 by mouth ity o f tablet 00:00: at bedtime [place] 00 as needed Medical for Muscle Branch Spasms. cyclobenzap 1-0 Yes 10mg Take 10 mg [facility] rine 10 mg 5-06 by mouth ity o f tablet 00:00: at bedtime [place] 00 as needed Medical for Muscle Branch Spasms. cyclobenzap 2021-0 Yes 10mg Take 10 mg [facility] rine 10 mg 5-06 by mouth ity o f tablet 00:00: at bedtime [place] 00 as needed Medical for Muscle Branch Spasms. cyclobenzap 2021-0 Yes 10mg Take 10 mg [facility] rine 10 mg 5-06 by mouth ity o f tablet 00:00: at bedtime [place] 00 as needed Medical for Muscle Branch Spasms. cyclobenzap 2021-0 Yes 10mg Take 10 mg [facility] rine 10 mg 5-06 by mouth ity o f tablet 00:00: at bedtime [place] 00 as needed Medical for Muscle Branch Spasms. cyclobenzap 2021-0 Yes 10mg Take 10 mg [facility] rine 10 mg 5-06 by mouth ity o f tablet 00:00: at bedtime [place] 00 as needed Medical for Muscle Branch Spasms. cyclobenzap 2021-0 Yes 10mg Take 10 mg [facility] rine 10 mg 5-06 by mouth ity o f tablet 00:00: at bedtime [place] 00 as needed Medical for Muscle Branch Spasms. cyclobenzap 2020-0 Yes 10mg Take 10 mg [facility] rine 10 mg 5-06 by mouth ity o f tablet 00:00: at bedtime [place] 00 as needed Medical for Muscle Branch Spasms. cyclobenzap 2020-0 Yes 10mg Take 10 mg [facility] rine 10 mg 5-06 by mouth ity o f tablet 00:00: at bedtime [place] 00 as needed Medical for Muscle Branch Spasms. cyclobenzap 1-0 Yes 10mg Take 10 mg [facility] rine 10 mg 5-06 by mouth ity o f tablet 00:00: at bedtime [place] 00 as needed Medical for Muscle Branch Spasms. cyclobenzap 2020-0 Yes 10mg Take 10 mg [facility] rine 10 mg 5-06 by mouth ity o f tablet 00:00: at bedtime [place] 00 as needed Medical for Muscle Branch Spasms. cyclobenzap 2020-0 Yes 10mg Take 10 mg [facility] rine 10 mg 5-06 by mouth ity o f tablet 00:00: at bedtime [place] 00 as needed Medical for Muscle Branch Spasms. cyclobenzap 2020-0 Yes 10mg Take 10 mg [facility] rine 10 mg 5-06 by mouth ity o f tablet 00:00: at bedtime [place] 00 as needed Medical for Muscle Branch Spasms. cyclobenzap 1-0 Yes 10mg Take 10 mg [facility] rine 10 mg 5-06 by mouth ity o f tablet 00:00: at bedtime [place] 00 as needed Medical for Muscle Branch Spasms. cyclobenzap 1-0 Yes 10mg Take 10 mg [facility] rine 10 mg 5-06 by mouth ity o f tablet 00:00: at bedtime [place] 00 as needed Medical for Muscle Branch Spasms. cyclobenzap 1-0 Yes 10mg Take 10 mg [facility] rine 10 mg 5-06 by mouth ity o f tablet 00:00: at bedtime [place] 00 as needed Medical for Muscle Branch Spasms. cyclobenzap 1-0 Yes 10mg Take 10 mg [facility] rine 10 mg 5-06 by mouth ity o f tablet 00:00: at bedtime [place] 00 as needed Medical for Muscle Branch Spasms. cyclobenzap 1-0 Yes 10mg Take 10 mg [facility] rine 10 mg 5-06 by mouth ity o f tablet 00:00: at bedtime [place] 00 as needed Medical for Muscle Branch Spasms. cyclobenzap 1-0 Yes 10mg Take 10 mg [facility] rine 10 mg 5-06 by mouth ity o f tablet 00:00: at bedtime [place] 00 as needed Medical for Muscle Branch Spasms. cyclobenzap 1-0 Yes 10mg Take 10 mg [facility] rine 10 mg 5-06 by mouth ity o f tablet 00:00: at bedtime [place] 00 as needed Medical for Muscle Branch Spasms. cyclobenzap 2020-0 Yes 10mg Take 10 mg [facility] rine 10 mg 5-06 by mouth ity o f tablet 00:00: at bedtime [place] 00 as needed Medical for Muscle Branch Spasms. cyclobenzap 1-0 Yes 10mg Take 10 mg [facility] rine 10 mg 5-06 by mouth ity o f tablet 00:00: at bedtime [place] 00 as needed Medical for Muscle Branch Spasms. cyclobenzap 1-0 Yes 10mg Take 10 mg [facility] rine 10 mg 5-06 by mouth ity o f tablet 00:00: at bedtime [place] 00 as needed Medical for Muscle Branch Spasms. cyclobenzap 2020-0 Yes 10mg Take 10 mg [facility] rine 10 mg 5-06 by mouth ity o f tablet 00:00: at bedtime [place] 00 as needed Medical for Muscle Branch Spasms. cyclobenzap 1-0 Yes 10mg Take 10 mg [facility] rine 10 mg 5-06 by mouth ity o f tablet 00:00: at bedtime [place] 00 as needed Medical for Muscle Branch Spasms. cyclobenzap 2021-0 Yes 10mg Take 10 mg [facility] rine 10 mg 5-06 by mouth ity o f tablet 00:00: at bedtime [place] 00 as needed Medical for Muscle Branch Spasms. cyclobenzap 2021-0 Yes 10mg Take 10 mg [facility] rine 10 mg 5-06 by mouth ity o f tablet 00:00: at bedtime [place] 00 as needed Medical for Muscle Branch [...] needed Medical for Muscle Branch Spasms. ondansetron 2021-0 Yes [id number] 4mg Take 1 [facility] 4 mg 1-23 tablet by ity of disintegrat 00:00: mouth [place] ing tablet 00 every 8 Medica l (eight) Branch hours as needed for Nausea and Vomiting (N/V). ondansetron 2021-0 Yes [id number] 4mg Take 1 [facility] 4 mg 1-23 tablet by ity of disintegrat 00:00: mouth [place] ing tablet 00 every 8 Medica l (eight) Branch hours as needed for Nausea and Vomiting (N/V). ondansetron 2021-0 Yes [id number] 4mg Take 1 [facility] 4 mg 1-23 tablet by ity of disintegrat 00:00: mouth [place] ing tablet 00 every 8 Medica l (eight) Branch hours as needed for Nausea and Vomiting (N/V). ondansetron 2021-0 Yes [id number] 4mg Take 1 [facility] 4 mg 1-23 tablet by ity of disintegrat 00:00: mouth [place] ing tablet 00 every 8 Medica l (eight) Branch hours as needed for Nausea and Vomiting (N/V). ondansetron 2020-0 Yes [id number] 4mg Take 1 [facility] 4 mg 1-23 tablet by ity of disintegrat 00:00: mouth [place] ing tablet 00 every 8 Medica l (eight) Branch hours as needed for Nausea and Vomiting (N/V). ondansetron 2020-0 Yes [id number] 4mg Take 1 [facility] 4 mg 1-23 tablet by ity of disintegrat 00:00: mouth [place] ing tablet 00 every 8 Medica l (eight) Branch hours as needed for Nausea and Vomiting (N/V). ondansetron 2020-0 Yes [id number] 4mg Take 1 [facility] 4 mg 1-23 tablet by ity of disintegrat 00:00: mouth [place] ing tablet 00 every 8 Medica l (eight) Branch hours as needed for Nausea and Vomiting (N/V). ondansetron 2020-0 Yes [id number] 4mg Take 1 [facility] 4 mg 1-23 tablet by ity of disintegrat 00:00: mouth [place] ing tablet 00 every 8 Medica l (eight) Branch hours as needed for Nausea and Vomiting (N/V). ondansetron 2020-0 Yes [id number] 4mg Take 1 [facility] 4 mg 1-23 tablet by ity of disintegrat 00:00: mouth [place] ing tablet 00 every 8 Medica l (eight) Branch hours as needed for Nausea and Vomiting (N/V). ondansetron 2020-0 Yes [id number] 4mg Take 1 [facility] 4 mg 1-23 tablet by ity of disintegrat 00:00: mouth [place] ing tablet 00 every 8 Medica l (eight) Branch hours as needed for Nausea and Vomiting (N/V). ondansetron 2020-0 Yes [id number] 4mg Take 1 [facility] 4 mg 1-23 tablet by ity of disintegrat 00:00: mouth [place] ing tablet 00 every 8 Medica l (eight) Branch hours as needed for Nausea and Vomiting (N/V). ondansetron 2020-0 Yes [id number] 4mg Take 1 [facility] 4 mg 1-23 tablet by ity of disintegrat 00:00: mouth [place] ing tablet 00 every 8 Medica l (eight) Branch hours as needed for Nausea and Vomiting (N/V). ondansetron 2020-0 Yes [id number] 4mg Take 1 [facility] 4 mg 1-23 tablet by ity of disintegrat 00:00: mouth [place] ing tablet 00 every 8 Medica l (eight) Branch hours as needed for Nausea and Vomiting (N/V). ondansetron 2020-0 Yes [id number] 4mg Take 1 [facility] 4 mg 1-23 tablet by ity of disintegrat 00:00: mouth [place] ing tablet 00 every 8 Medica l (eight) Branch hours as needed for Nausea and Vomiting (N/V). ondansetron 2020-0 Yes [id number] 4mg Take 1 [facility] 4 mg 1-23 tablet by ity of disintegrat 00:00: mouth [place] ing tablet 00 every 8 Medica l (eight) Branch hours as needed for Nausea and Vomiting (N/V). ondansetron 2020-0 Yes [id number] 4mg Take 1 [facility] 4 mg 1-23 tablet by ity of disintegrat 00:00: mouth [place] ing tablet 00 every 8 Medica l (eight) Branch hours as needed for Nausea and Vomiting (N/V). ondansetron 0 Yes [id number] 4mg Take 1 [facility] 4 mg 1-23 tablet by ity of disintegrat 00:00: mouth [place] ing tablet 00 every 8 Medica l (eight) Branch hours as needed for Nausea and Vomiting (N/V). ondansetron 2020-0 Yes [id number] 4mg Take 1 [facility] 4 mg 1-23 tablet by ity of disintegrat 00:00: mouth [place] ing tablet 00 every 8 Medica l (eight) Branch hours as needed for Nausea and Vomiting (N/V). ondansetron 2020-0 Yes [id number] 4mg Take 1 [facility] 4 mg 1-23 tablet by ity of disintegrat 00:00: mouth [place] ing tablet 00 every 8 Medica l (eight) Branch hours as needed for Nausea and Vomiting (N/V). ondansetron 2020-0 Yes [id number] 4mg Take 1 [facility] 4 mg 1-23 tablet by ity of disintegrat 00:00: mouth [place] ing tablet 00 every 8 Medica l (eight) Branch hours as needed for Nausea and Vomiting (N/V). ondansetron 2020-0 Yes [id number] 4mg Take 1 [facility] 4 mg 1-23 tablet by ity of disintegrat 00:00: mouth [place] ing tablet 00 every 8 Medica l (eight) Branch hours as needed for Nausea and Vomiting (N/V). ondansetron 2020-0 Yes [id number] 4mg Take 1 [facility] 4 mg 1-23 tablet by ity of disintegrat 00:00: mouth [place] ing tablet 00 every 8 Medica l (eight) Branch hours as needed for Nausea and Vomiting (N/V). ondansetron 2020-0 Yes [id number] 4mg Take 1 [facility] 4 mg 1-23 tablet by ity of disintegrat 00:00: mouth [place] ing tablet 00 every 8 Medica l (eight) Branch hours as needed for Nausea and Vomiting (N/V). ondansetron 2020-0 Yes [id number] 4mg Take 1 [facility] 4 mg 1-23 tablet by ity of disintegrat 00:00: mouth [place] ing tablet 00 every 8 Medica l (eight) Branch hours as needed for Nausea and Vomiting (N/V). ondansetron 2020-0 Yes [id number] 4mg Take 1 [facility] 4 mg 1-23 tablet by ity of disintegrat 00:00: mouth [place] ing tablet 00 every 8 Medica l (eight) Branch hours as needed for Nausea and Vomiting (N/V). ondansetron 2020-0 Yes [id number] 4mg Take 1 [facility] 4 mg 1-23 tablet by ity of disintegrat 00:00: mouth [place] ing tablet 00 every 8 Medica l (eight) Branch hours as needed for Nausea and Vomiting (N/V). ondansetron 2020-0 Yes [id number] 4mg Take 1 [facility] 4 mg 1-23 tablet by ity of disintegrat 00:00: mouth [place] ing tablet 00 every 8 Medica l (eight) Branch hours as needed for Nausea and Vomiting (N/V). ondansetron 2020-0 Yes [id number] 4mg Take 1 [facility] 4 mg 1-23 tablet by ity of disintegrat 00:00: mouth [place] ing tablet 00 every 8 Medica l (eight) Branch hours as needed for Nausea and Vomiting (N/V). ondansetron 2020-0 Yes [id number] 4mg Take 1 [facility] 4 mg 1-23 tablet by ity of disintegrat 00:00: mouth [place] ing tablet 00 every 8 Medica l (eight) Branch hours as needed for Nausea and Vomiting (N/V). ondansetron 2020-0 Yes [id number] 4mg Take 1 [facility] 4 mg 1-23 tablet by ity of disintegrat 00:00: mouth [place] ing tablet 00 every 8 Medica l (eight) Branch hours as needed for Nausea and Vomiting (N/V). ondansetron 2020-0 Yes [id number] 4mg Take 1 [facility] 4 mg 1-23 tablet by ity of disintegrat 00:00: mouth [place] ing tablet 00 every 8 Medica l (eight) Branch hours as needed for Nausea and Vomiting (N/V). ondansetron 2020-0 Yes [id number] 4mg Take 1 [facility] 4 mg 1-23 tablet by ity of disintegrat 00:00: mouth [place] ing tablet 00 every 8 Medica l (eight) Branch hours as needed for Nausea and Vomiting (N/V). ondansetron 2020-0 Yes [id number] 4mg Take 1 [facility] 4 mg 1-23 tablet by ity of disintegrat 00:00: mouth [place] ing tablet 00 every 8 Medica l (eight) Branch hours as needed for Nausea and Vomiting (N/V). ondansetron 2020-0 Yes [id number] 4mg Take 1 [facility] 4 mg 1-23 tablet by ity of disintegrat 00:00: mouth [place] ing tablet 00 every 8 Medica l (eight) Branch hours as needed for Nausea and Vomiting (N/V). ondansetron 2020-0 Yes [id number] 4mg Take 1 [facility] 4 mg 1-23 tablet by ity of disintegrat 00:00: mouth [place] ing tablet 00 every 8 Medica l (eight) Branch hours as needed for Nausea and Vomiting (N/V). ondansetron 2020-0 Yes [id number] 4mg Take 1 [facility] 4 mg 1-23 tablet by ity of disintegrat 00:00: mouth [place] ing tablet 00 every 8 Medica l (eight) Branch hours as needed for Nausea and Vomiting (N/V). ondansetron 2020-0 Yes [id number] 4mg Take 1 [facility] 4 mg 1-23 tablet by ity of disintegrat 00:00: mouth [place] ing tablet 00 every 8 Medica l (eight) Branch hours as needed for Nausea and Vomiting (N/V). ondansetron 2020-0 Yes [id number] 4mg Take 1 [facility] 4 mg 1-23 tablet by ity of disintegrat 00:00: mouth [place] ing tablet 00 every 8 Medica l (eight) Branch hours as needed for Nausea and Vomiting (N/V). ondansetron 2020-0 Yes [id number] 4mg Take 1 [facility] 4 mg 1-23 tablet by ity of disintegrat 00:00: mouth [place] ing tablet 00 every 8 Medica l (eight) Branch hours as needed for Nausea and Vomiting (N/V). ondansetron 2020-0 Yes [id number] 4mg Take 1 [facility] 4 mg 1-23 tablet by ity of disintegrat 00:00: mouth [place] ing tablet 00 every 8 Medica l (eight) Branch hours as needed for Nausea and Vomiting (N/V). ondansetron 2020-0 Yes [id number] 4mg Take 1 [facility] 4 mg 1-23 tablet by ity of disintegrat 00:00: mouth [place] ing tablet 00 every 8 Medica l (eight) Branch hours as needed for Nausea and Vomiting (N/V). ondansetron 0 Yes [id number] 4mg Take 1 [facility] 4 mg 1-23 tablet by ity of disintegrat 00:00: mouth [place] ing tablet 00 every 8 Medica l (eight) Branch hours as needed for Nausea and Vomiting (N/V). ondansetron 2020-0 Yes [id number] 4mg Take 1 [facility] 4 mg 1-23 tablet by ity of disintegrat 00:00: mouth [place] ing tablet 00 every 8 Medica l (eight) Branch hours as needed for Nausea and Vomiting (N/V). ondansetron 2020-0 Yes [id number] 4mg Take 1 [facility] 4 mg 1-23 tablet by ity of disintegrat 00:00: mouth [place] ing tablet 00 every 8 Medica l (eight) Branch hours as needed for Nausea and Vomiting (N/V). ondansetron 2020-0 Yes [id number] 4mg Take 1 [facility] 4 mg 1-23 tablet by ity of disintegrat 00:00: mouth [place] ing tablet 00 every 8 Medica l (eight) Branch hours as needed for Nausea and Vomiting (N/V). ondansetron 2020-0 Yes [id number] 4mg Take 1 [facility] 4 mg 1-23 tablet by ity of disintegrat 00:00: mouth [place] ing tablet 00 every 8 Medica l (eight) Branch hours as needed for Nausea and Vomiting (N/V). acetaminoph 2019-09 Yes 500mg Take 500 U nivers en 500 mg 2-28 mg by ity of tablet 00:00: mouth. [place] [facility] acetaminoph 2019-09 Yes 500mg Take 500 U nivers en 500 mg 2-28 mg by ity of tablet 00:00: mouth. [place] [facility] acetaminoph 2019-09 Yes 500mg Take 500 U nivers en 500 mg 2-28 mg by ity of tablet 00:00: mouth. [place] [facility] acetaminoph 2019-09 Yes 500mg Take 500 U nivers en 500 mg 2-28 mg by ity of tablet 00:00: mouth. [place] [facility] Branch acetaminoph 2019-09 Yes 500mg Take 500 U nivers en 500 mg 2-28 mg by ity of tablet 00:00: mouth. [place] [facility] Branch acetaminoph 2019-09 Yes 500mg Take 500 U nivers en 500 mg 2-28 mg by ity of tablet 00:00: mouth. [place] [facility] Branch acetaminoph 2019-09 Yes 500mg Take 500 U nivers en 500 mg 2-28 mg by ity of tablet 00:00: mouth. [place] [facility] Branch acetaminoph 2019-09- No 500mg Take 500 Univers en 500 mg 2-28 10-22 mg by ity of tablet 00:00: 00:00 mouth. [place] 00 :00 Medical Branch traZODone 2019- Yes TAKE ONE [facility] ers 100 mg 1-12 (1) ity of tablet 00:00: TABLET(S) [place] BY MOUTH Medical AT BEDTIME [facility] NEEDED. traZODone 2019-09 Yes TAKE ONE [facility] ers 100 mg 1-12 (1) ity of tablet 00:00: TABLET(S) [place] BY MOUTH Medical AT BEDTIME [facility] NEEDED. traZODone 2019-09 Yes TAKE ONE [facility] ers 100 mg 1-12 (1) ity of tablet 00:00: TABLET(S) [place] BY [facility] Medical AT BEDTIME [facility] NEEDED. traZODone 2019-09 Yes TAKE ONE Univ [...] 00:00: FOR DETAILED Medical DIRECTIONS Branch lamoTRIgine 2020-1 Yes TAKE TWO Un [place] [...] BY MOUTH Medical EVERY Branch MORNING. lamoTRIgine 2020- Yes TAKE TWO [facility] [place] 100 mg 0-28 (2) ity of tablet 00:00: TABLET(S) BY MOUTH Medical EVERY Branch MORNING. lamoTRIgine 2020- Yes TAKE TWO [facility] [place] 100 mg 0-28 (2) ity of tablet 00:00: TABLET(S) BY MOUTH Medical EVERY Branch MORNING. lamoTRIgine 2020-1 Yes 200mg Take 200 U nivers 100 mg 0-28 mg by ity of tablet 00:00: mouth [place] every Medical morning. Branch lamoTRIgine 2020-1 Yes [...] (1) ity of mcg/actuati 00:00: PUFF(S) BY [place] on inhaler 00 MOUTH Medical EVERY FOUR Branch HOURS. VENTOLIN 2020-0 Yes INHALE ONE Uni vers HFA 90 9-29 (1) ity of mcg/actuati 00:00: PUFF(S) BY [place] on inhaler 00 MOUTH Medical EVERY FOUR Branch HOURS. VENTOLIN 2020-0 Yes INHALE ONE [facility] vers HFA 90 9-29 (1) ity of mcg/actuati 00:00: PUFF(S) BY [place] on inhaler 00 MOUTH Medical EVERY FOUR Branch HOURS. VENTOLIN 2020-0 Yes INHALE ONE Uni vers HFA 90 9-29 (1) ity of mcg/actuati 00:00: PUFF(S) BY [place] on inhaler 00 MOUTH Medical EVERY FOUR Branch HOURS. VENTOLIN 2020-0 Yes INHALE ONE Uni vers HFA 90 9-29 (1) ity of mcg/actuati 00:00: PUFF(S) BY [place] on inhaler 00 MOUTH Medical EVERY FOUR Branch HOURS. VENTOLIN 2020-0 Yes INHALE ONE Uni vers HFA 90 9-29 (1) ity of mcg/actuati 00:00: PUFF(S) BY [place] on inhaler 00 MOUTH Medical EVERY FOUR Branch HOURS. VENTOLIN 2020-0 Yes INHALE ONE Uni vers HFA 90 9-29 (1) ity of mcg/actuati 00:00: PUFF(S) BY [place] on inhaler 00 MOUTH Medical EVERY FOUR Branch HOURS. VENTOLIN 2020-0 Yes INHALE ONE Uni vers HFA 90 9-29 (1) ity of mcg/actuati 00:00: PUFF(S) BY [place] on inhaler 00 MOUTH Medical EVERY FOUR Branch HOURS. VENTOLIN 2020-0 Yes INHALE ONE [facility] vers HFA 90 9-29 (1) ity of mcg/actuati 00:00: PUFF(S) BY [place] on inhaler 00 MOUTH Medical EVERY FOUR Branch HOURS. VENTOLIN 2020-0 Yes INHALE ONE Uni vers HFA 90 9-29 (1) ity of mcg/actuati 00:00: PUFF(S) BY [place] on inhaler 00 MOUTH Medical EVERY FOUR Branch HOURS. VENTOLIN 2020-0 Yes INHALE ONE Uni vers HFA 90 9-29 (1) ity of mcg/actuati 00:00: PUFF(S) BY [place] on inhaler 00 MOUTH Medical EVERY FOUR Branch HOURS. VENTOLIN 2020-0 Yes INHALE ONE Uni vers HFA 90 9-29 (1) ity of mcg/actuati 00:00: PUFF(S) BY [place] on inhaler 00 MOUTH Medical EVERY FOUR [...] (1) ity of mcg/actuati 00:00: PUFF(S) BY [place] on inhaler 00 MOUTH Medical EVERY FOUR Branch HOURS. VENTOLIN 2020-0 Yes INHALE ONE Uni vers HFA 90 929 (1) ity of mcg/actuati 00:00: PUFF(S) BY [place] on inhaler 00 MOUTH Medical EVERY FOUR Branch HOURS. VENTOLIN 2020-0 Yes INHALE ONE Uni vers HFA 90 929 (1) ity of mcg/actuati 00:00: PUFF(S) BY [place] on inhaler 00 MOUTH Medical EVERY FOUR Branch HOURS. VENTOLIN 2020-0 Yes INHALE ONE Uni vers HFA 90 929 (1) ity of mcg/actuati 00:00: PUFF(S) BY [place] on inhaler 00 MOUTH Medical EVERY FOUR Branch HOURS. VENTOLIN 2020-0 Yes INHALE ONE Uni vers HFA 90 929 (1) ity of mcg/actuati 00:00: PUFF(S) BY [place] on inhaler 00 MOUTH Medical EVERY FOUR Branch HOURS. VENTOLIN 2020-0 Yes INHALE ONE Uni vers HFA 90 929 (1) ity of mcg/actuati 00:00: PUFF(S) BY [place] on inhaler 00 MOUTH Medical EVERY FOUR Branch HOURS. VENTOLIN 2020-0 Yes INHALE ONE Uni vers HFA 90 9-29 (1) ity of mcg/actuati 00:00: PUFF(S) BY [place] on inhaler 00 MOUTH Medical EVERY FOUR Branch HOURS. VENTOLIN 2020-0 Yes INHALE ONE Uni vers HFA 90 9-29 (1) ity of mcg/actuati 00:00: PUFF(S) BY [place] on inhaler 00 MOUTH Medical EVERY FOUR [...] (1) ity of mcg/actuati 00:00: PUFF(S) BY [place] on inhaler 00 MOUTH Medical EVERY FOUR Branch HOURS. VENTOLIN 2020-0 Yes INHALE ONE Uni vers HFA 90 929 (1) ity of mcg/actuati 00:00: PUFF(S) BY [place] on inhaler 00 MOUTH Medical EVERY FOUR Branch HOURS. VENTOLIN 2020-0 Yes INHALE ONE Uni vers HFA 90 929 (1) ity of mcg/actuati 00:00: PUFF(S) BY [place] on inhaler 00 MOUTH Medical EVERY FOUR Branch HOURS. VENTOLIN 2020-0 Yes INHALE ONE Uni vers HFA 90 929 (1) ity of mcg/actuati 00:00: PUFF(S) BY [place] on inhaler 00 MOUTH Medical EVERY FOUR Branch HOURS. VENTOLIN 2020-0 Yes INHALE ONE Uni vers HFA 90 9-29 (1) ity of mcg/actuati 00:00: PUFF(S) BY [place] on inhaler 00 MOUTH Medical EVERY FOUR Branch HOURS. VENTOLIN 2020-0 Yes INHALE ONE Uni vers HFA 90 929 (1) ity of mcg/actuati 00:00: PUFF(S) BY [place] on inhaler 00 MOUTH Medical EVERY FOUR Branch HOURS. VENTOLIN 2020-0 Yes INHALE ONE Uni vers HFA 90 929 (1) ity of mcg/actuati 00:00: PUFF(S) BY [place] on inhaler 00 MOUTH Medical EVERY FOUR Branch HOURS. VENTOLIN 2020-0 Yes INHALE ONE Uni vers HFA 90 9-29 (1) ity of mcg/actuati 00:00: PUFF(S) BY [place] on inhaler 00 MOUTH Medical EVERY FOUR [...] (1) ity of mcg/actuati 00:00: PUFF(S) BY [place] on inhaler 00 MOUTH Medical EVERY FOUR Branch HOURS. VENTOLIN 2020-0 Yes INHALE ONE Uni vers HFA 90 9 (1) ity of mcg/actuati 00:00: PUFF(S) BY [place] on inhaler 00 MOUTH Medical EVERY FOUR Branch HOURS. VENTOLIN 2020-0 Yes INHALE ONE Uni vers HFA 90 929 (1) ity of mcg/actuati 00:00: PUFF(S) BY [place] on inhaler 00 MOUTH Medical EVERY FOUR Branch HOURS. VENTOLIN 2020-0 Yes INHALE ONE Uni vers HFA 90 929 (1) ity of mcg/actuati 00:00: PUFF(S) BY [place] on inhaler 00 MOUTH Medical EVERY FOUR Branch HOURS. VENTOLIN 2020-0 Yes INHALE ONE Uni vers HFA 90 929 (1) ity of mcg/actuati 00:00: PUFF(S) BY [place] on inhaler 00 MOUTH Medical EVERY FOUR Branch HOURS. VENTOLIN 2020-0 Yes INHALE ONE Uni vers HFA 90 929 (1) ity of mcg/actuati 00:00: PUFF(S) BY [place] on inhaler 00 MOUTH Medical EVERY FOUR Branch HOURS. VENTOLIN 2020-0 Yes INHALE ONE Uni vers HFA 90 9-29 (1) ity of mcg/actuati 00:00: PUFF(S) BY [place] on inhaler 00 MOUTH Medical EVERY FOUR Branch HOURS. VENTOLIN 2020-0 Yes INHALE ONE Uni vers HFA 90 06-04 (1) ity of mcg/actuati 00:00: PUFF(S) BY [place] on inhaler 00 MOUTH Medical EVERY FOUR Branch HOURS. VENTOLIN 2020-0 Yes INHALE ONE Uni vers HFA 90 06-04 (1) ity of mcg/actuati 00:00: PUFF(S) BY [place] on inhaler 00 MOUTH Medical EVERY FOUR Branch HOURS. VENTOLIN 2020-0 Yes INHALE ONE Uni vers HFA 90 06-04 (1) ity of mcg/actuati 00:00: PUFF(S) BY [place] on inhaler 00 MOUTH Medical EVERY FOUR Branch HOURS. proMETHazin 2020-0 Yes [id number] 25mg Take 1 [facility] e 25 mg 6-23 tablet by ity of tablet 00:00: mouth [place] 00 every 6 Medical (six) Branch hours as needed for Nausea and Vomiting (N/V). proMETHazin 2020-0 Yes [id number] 25mg Take 1 [facility] e 25 mg 6-23 tablet by ity of tablet 00:00: mouth [place] 00 every 6 Medical (six) Branch hours as needed for Nausea and Vomiting (N/V). proMETHazin 2020-0 Yes [id number] 25mg Take 1 [facility] e 25 mg 6-23 tablet by ity of tablet 00:00: mouth [place] 00 every 6 Medical (six) Branch hours as needed for Nausea and Vomiting (N/V). proMETHazin 2020-0 Yes [id number] 25mg Take 1 [facility] e 25 mg 6-23 tablet by ity of tablet 00:00: mouth [place] 00 every 6 Medical (six) Branch hours as needed for Nausea and Vomiting (N/V). proMETHazin 2020-0 Yes [id number] 25mg Take 1 [facility] e 25 mg 6-23 tablet by ity of tablet 00:00: mouth [place] 00 every 6 Medical (six) Branch hours as needed for Nausea and Vomiting (N/V). proMETHazin 2020-0 Yes [id number] 25mg Take 1 [facility] e 25 mg 6-23 tablet by ity of tablet 00:00: mouth [place] 00 every 6 Medical (six) Branch hours as needed for Nausea and Vomiting (N/V). proMETHazin 2020-0 Yes [id number] 25mg Take 1 [facility] e 25 mg 6-23 tablet by ity of tablet 00:00: mouth [place] 00 every 6 Medical (six) Branch hours as needed for Nausea and Vomiting (N/V). proMETHazin 2020-0 Yes [id number] 25mg Take 1 [facility] e 25 mg 6-23 tablet by ity of tablet 00:00: mouth [place] 00 every 6 Medical (six) Branch hours as needed for Nausea and Vomiting (N/V). proMETHazin 2020-0 Yes [id number] 25mg Take 1 [facility] e 25 mg 6-23 tablet by ity of tablet 00:00: mouth [place] 00 every 6 Medical (six) Branch hours as needed for Nausea and Vomiting (N/V). proMETHazin 2020-0 Yes [id number] 25mg Take 1 [facility] e 25 mg 6-23 tablet by ity of tablet 00:00: mouth [place] 00 every 6 Medical (six) Branch hours as needed for Nausea and Vomiting (N/V). proMETHazin 2020-0 Yes [id number] 25mg Take 1 [facility] e 25 mg 6-23 tablet by ity of tablet 00:00: mouth [place] 00 every 6 Medical (six) Branch hours as needed for Nausea and Vomiting (N/V). proMETHazin 2020-0 Yes [id number] 25mg Take 1 [facility] e 25 mg 6-23 tablet by ity of tablet 00:00: mouth [place] 00 every 6 Medical (six) Branch hours as needed for Nausea and Vomiting (N/V). proMETHazin 2020-0 Yes [id number] 25mg Take 1 [facility] e 25 mg 6-23 tablet by ity of tablet 00:00: mouth [place] 00 every 6 Medical (six) Branch hours as needed for Nausea and Vomiting (N/V). proMETHazin 2020-0 Yes [id number] 25mg Take 1 [facility] e 25 mg 6-23 tablet by ity of tablet 00:00: mouth [place] 00 every 6 Medical (six) Branch hours as needed for Nausea and Vomiting (N/V). proMETHazin 2020-0 Yes [id number] 25mg Take 1 [facility] e 25 mg 6-23 tablet by ity of tablet 00:00: mouth [place] 00 every 6 Medical (six) Branch hours as needed for Nausea and Vomiting (N/V). proMETHazin 2020-0 Yes [id number] 25mg Take 1 [facility] e 25 mg 6-23 tablet by ity of tablet 00:00: mouth [place] 00 every 6 Medical (six) Branch hours as needed for Nausea and Vomiting (N/V). proMETHazin 2020-0 Yes [id number] 25mg Take 1 [facility] e 25 mg 6-23 tablet by ity of tablet 00:00: mouth [place] 00 every 6 Medical (six) Branch hours as needed for Nausea and Vomiting (N/V). proMETHazin 2020-0 Yes [id number] 25mg Take 1 [facility] e 25 mg 6-23 tablet by ity of tablet 00:00: mouth [place] 00 every 6 Medical (six) Branch hours as needed for Nausea and Vomiting (N/V). proMETHazin 2020-0 Yes [id number] 25mg Take 1 [facility] e 25 mg 6-23 tablet by ity of tablet 00:00: mouth [place] 00 every 6 Medical (six) Branch hours as needed for Nausea and Vomiting (N/V). proMETHazin 2020-0 Yes [id number] 25mg Take 1 [facility] e 25 mg 6-23 tablet by ity of tablet 00:00: mouth [place] 00 every 6 Medical (six) Branch hours as needed for Nausea and Vomiting (N/V). proMETHazin 2020-0 Yes [id number] 25mg Take 1 [facility] e 25 mg 6-23 tablet by ity of tablet 00:00: mouth [place] 00 every 6 Medical (six) Branch hours as needed for Nausea and Vomiting (N/V). proMETHazin 2020-0 Yes [id number] 25mg Take 1 [facility] e 25 mg 6-23 tablet by ity of tablet 00:00: mouth [place] 00 every 6 Medical (six) Branch hours as needed for Nausea and Vomiting (N/V). proMETHazin 2020-0 Yes [id number] 25mg Take 1 [facility] e 25 mg 6-23 tablet by ity of tablet 00:00: mouth [place] 00 every 6 Medical (six) Branch hours as needed for Nausea and Vomiting (N/V). proMETHazin 2020-0 Yes [id number] 25mg Take 1 [facility] e 25 mg 6-23 tablet by ity of tablet 00:00: mouth [place] 00 every 6 Medical (six) Branch hours as needed for Nausea and Vomiting (N/V). proMETHazin 2020-0 Yes [id number] 25mg Take 1 [facility] e 25 mg 6-23 tablet by ity of tablet 00:00: mouth [place] 00 every 6 Medical (six) Branch hours as needed for Nausea and Vomiting (N/V). proMETHazin 2020-0 Yes [id number] 25mg Take 1 [facility] e 25 mg 6-23 tablet by ity of tablet 00:00: mouth [place] 00 every 6 Medical (six) Branch hours as needed for Nausea and Vomiting (N/V). proMETHazin 2020-0 Yes [id number] 25mg Take 1 [facility] e 25 mg 6-23 tablet by ity of tablet 00:00: mouth [place] 00 every 6 Medical (six) Branch hours as needed for Nausea and Vomiting (N/V). proMETHazin 2020-0 Yes [id number] 25mg Take 1 [facility] e 25 mg 6-23 tablet by ity of tablet 00:00: mouth [place] 00 every 6 Medical (six) Branch hours as needed for Nausea and Vomiting (N/V). proMETHazin 2020-0 Yes [id number] 25mg Take 1 [facility] e 25 mg 6-23 tablet by ity of tablet 00:00: mouth [place] 00 every 6 Medical (six) Branch hours as needed for Nausea and Vomiting (N/V). proMETHazin 2020-0 Yes [id number] 25mg Take 1 [facility] e 25 mg 6-23 tablet by ity of tablet 00:00: mouth [place] 00 every 6 Medical (six) Branch hours as needed for Nausea and Vomiting (N/V). proMETHazin 2020-0 Yes [id number] 25mg Take 1 [facility] e 25 mg 6-23 tablet by ity of tablet 00:00: mouth [place] 00 every 6 Medical (six) Branch hours as needed for Nausea and Vomiting (N/V). proMETHazin 2020-0 Yes [id number] 25mg Take 1 [facility] e 25 mg 6-23 tablet by ity of tablet 00:00: mouth [place] 00 every 6 Medical (six) Branch hours as needed for Nausea and Vomiting (N/V). proMETHazin 2020-0 Yes [id number] 25mg Take 1 [facility] e 25 mg 6-23 tablet by ity of tablet 00:00: mouth [place] 00 every 6 Medical (six) Branch hours as needed for Nausea and Vomiting (N/V). proMETHazin 2020-0 Yes [id number] 25mg Take 1 [facility] e 25 mg 6-23 tablet by ity of tablet 00:00: mouth [place] 00 every 6 Medical (six) Branch hours as needed for Nausea and Vomiting (N/V). proMETHazin 2020-0 Yes [id number] 25mg Take 1 [facility] e 25 mg 6-23 tablet by ity of tablet 00:00: mouth [place] 00 every 6 Medical (six) Branch hours as needed for Nausea and Vomiting (N/V). proMETHazin 2020-0 Yes [id number] 25mg Take 1 [facility] e 25 mg 6-23 tablet by ity of tablet 00:00: mouth [place] 00 every 6 Medical (six) Branch hours as needed for Nausea and Vomiting (N/V). proMETHazin 2020-0 Yes [id number] 25mg Take 1 [facility] e 25 mg 6-23 tablet by ity of tablet 00:00: mouth [place] 00 every 6 Medical (six) Branch hours as needed for Nausea and Vomiting (N/V). proMETHazin 2020-0 Yes [id number] 25mg Take 1 [facility] e 25 mg 6-23 tablet by ity of tablet 00:00: mouth [place] 00 every 6 Medical (six) Branch hours as needed for Nausea and Vomiting (N/V). proMETHazin 2020-0 Yes [id number] 25mg Take 1 [facility] e 25 mg 6-23 tablet by ity of tablet 00:00: mouth [place] 00 every 6 Medical (six) Branch hours as needed for Nausea and Vomiting (N/V). proMETHazin 2020-0 Yes [id number] 25mg Take 1 [facility] e 25 mg 6-23 tablet by ity of tablet 00:00: mouth [place] 00 every 6 Medical (six) Branch hours as needed for Nausea and Vomiting (N/V). proMETHazin 2020-0 Yes [id number] 25mg Take 1 [facility] e 25 mg 6-23 tablet by ity of tablet 00:00: mouth [place] 00 every 6 Medical (six) Branch hours as needed for Nausea and Vomiting (N/V). proMETHazin 2020-0 Yes [id number] 25mg Take 1 [facility] e 25 mg 6-23 tablet by ity of tablet 00:00: mouth [place] 00 every 6 Medical (six) Branch hours as needed for Nausea and Vomiting (N/V). proMETHazin 2020-0 Yes [id number] 25mg Take 1 [facility] e 25 mg 6-23 tablet by ity of tablet 00:00: mouth [place] 00 every 6 Medical (six) Branch hours as needed for Nausea and Vomiting (N/V). proMETHazin 2020-0 Yes [id number] 25mg Take 1 [facility] e 25 mg 6-23 tablet by ity of tablet 00:00: mouth [place] 00 every 6 Medical (six) Branch hours as needed for Nausea and Vomiting (N/V). proMETHazin 2020-0 Yes [id number] 25mg Take 1 [facility] e 25 mg 6-23 tablet by ity of tablet 00:00: mouth [place] 00 every 6 Medical (six) Branch hours as needed for Nausea and Vomiting (N/V). proMETHazin 2020-0 Yes [id number] 25mg Take 1 [facility] e 25 mg 6-23 tablet by ity of tablet 00:00: mouth [place] 00 every 6 Medical (six) Branch hours as needed for Nausea and Vomiting (N/V). hydrOXYzine 2018-09 Yes Univer s 25 mg 2-06 ity of capsule 00:00: [place] [facility] Branch hydrOXYzine 2018-09 Yes Univer s 25 mg 2-06 ity of capsule 00:00: [place] [address] Medical Branch hydrOXYzine 2018-09 Yes Univer s 25 mg 2-06 ity of capsule 00:00: [place] [address] Medical Branch hydrOXYzine 2018- Yes Univer s 25 mg 2-06 ity of capsule 00:00: [place] 00 Medical Branch hydrOXYzine 2018- Yes Univer s 25 mg 2-06 ity of capsule 00:00: [place] [address] Medical Branch hydrOXYzine 2018- Yes Univer s 25 mg 2-06 ity of capsule 00:00: [place] 00 Medical Branch hydrOXYzine 2018- Yes Univer s 25 mg 2-06 ity of capsule 00:00: [place] [address] Medical Branch hydrOXYzine 2018- Yes 25mg Take 25 mg [facility] 25 mg 2-06 by mouth 3 ity of capsule 00:00: (three) [place] 00 times Medical daily as Branch needed for Itching. hydrOXYzine 2018-09 Yes 25mg Take 25 mg [facility] 25 mg 2-06 by mouth 3 ity of capsule 00:00: (three) [place] 00 times Medical daily as Branch needed for Itching. hydrOXYzine 2018-09 Yes 25mg Take 25 mg [facility] 25 [...] daily as Branch needed for Itching. hydrOXYzine 2018-09 Yes 25mg Take 25 mg [facility] 25 mg 2-06 by mouth 3 ity of capsule 00:00: (three) [place] 00 times Medical daily as Branch needed for Itching. hydrOXYzine 2018-09 Yes 25mg Take 25 mg [facility] 25 mg 2-06 by mouth 3 ity of capsule 00:00: (three) [place] 00 times Medical daily as Branch needed for Itching. hydrOXYzine 2018-09 Yes 25mg Take 25 mg [facility] 25 mg 2-06 by mouth 3 ity of capsule 00:00: (three) [place] 00 times Medical daily as Branch needed for Itching. hydrOXYzine 2018-09 Yes 25mg Take 25 mg [facility] 25 mg 2-06 by mouth 3 ity of capsule 00:00: (three) [place] 00 times Medical daily as Branch needed for Itching. hydrOXYzine 2018-09 Yes 25mg Take 25 mg [facility] 25 mg 2-06 by mouth 3 ity of capsule 00:00: (three) [place] 00 times Medical daily as Branch needed for Itching. hydrOXYzine 2018-09 Yes 25mg Take 1 [facility] ers 25 mg 2-06 capsule by ity of capsule 00:00: mouth 3 [place] (three) Medical times Branch daily as needed for Itching. hydrOXYzine 2018-09 Yes 25mg Take 1 [facility] ers 25 mg 2-06 capsule by ity of capsule 00:00: mouth 3 [place] (three) Medical times Branch daily as needed for Itching. hydrOXYzine 2018-09 Yes 25mg Take 1 [facility] ers 25 mg 2-06 capsule by ity of capsule 00:00: mouth 3 [place] (three) Medical times Branch daily as needed for Itching. hydrOXYzine 2018-09 Yes 25mg Take 1 [facility] ers 25 mg 2-06 capsule by ity of capsule 00:00: mouth 3 [place] (three) Medical times Branch daily as needed for Itching. hydrOXYzine 2018-09 Yes 25mg Take 1 [facility] ers 25 mg 2-06 capsule by ity of capsule 00:00: mouth 3 [place] (three) Medical times Branch daily as needed for Itching. hydrOXYzine 2018-09 Yes 25mg Take 1 [facility] ers 25 mg 2-06 capsule by ity of capsule 00:00: mouth 3 [place] (three) Medical times Branch daily as needed [...] by ity of capsule 00:00: mouth 3 00 (three) Medical times Branch daily as needed for Itching. hydrOXYzine 2018-09 Yes 25mg Take 1 [facility] ers 25 mg 2-06 capsule by ity of capsule 00:00: mouth 3 [place] 00 (three) Medical times Branch daily as needed for Itching. hydrOXYzine 2018-09 Yes 25mg Take 1 [facility] ers 25 mg 2-06 capsule by ity of capsule 00:00: mouth 3 00 (three) Medical times Branch daily as [...] 00:00: SYRINGE) [place] injection 00 SUBCUTANEO Medi abhihsek USLY EVERY Branch 8 WEEKS. TERRI 45 [...] Medi abhishek USLY EVERY Branch 8 WEEKS. [facility] Yes INJECT Unive rs mg/0.5 mL 1-26 45MG (1 ity of [place] 00:00: SYRINGE) [place] injection 00 SUBCUTANEO Medi abhishek USLY EVERY Branch 8 WEEKS. [facility] Yes INJECT Unive rs mg/0.5 mL 1-26 45MG (1 ity of [place] 00:00: SYRINGE) [place] injection 00 SUBCUTANEO Medi abhishek USLY EVERY Branch 8 WEEKS. [facility] Yes INJECT Unive rs mg/0.5 mL 1-26 45MG (1 ity of [place] 00:00: SYRINGE) [place] injection 00 SUBCUTANEO Medi abhishek USLY EVERY Branch 8 WEEKS. [facility] Yes INJECT Unive rs mg/0.5 mL 1-26 45MG (1 ity of SC 00:00: SYRINGE) [place] injection 00 SUBCUTANEO Medi abhishek USLY EVERY Branch 8 WEEKS. [facility] Yes INJECT Unive rs mg/0.5 mL 1-26 45MG (1 ity of [place] 00:00: SYRINGE) [place] injection 00 SUBCUTANEO Medi abhishek USLY EVERY Branch 8 WEEKS. [facility] Yes INJECT Unive rs mg/0.5 mL 1-26 45MG (1 ity of [place] 00:00: SYRINGE) [place] injection 00 SUBCUTANEO Medi abhishek USLY EVERY Branch 8 WEEKS. [facility] Yes INJECT Unive rs mg/0.5 mL 1-26 45MG (1 ity of [place] 00:00: SYRINGE) [place] injection 00 SUBCUTANEO Medi abhishek USLY EVERY Branch 8 WEEKS. [facility] Yes INJECT Unive rs mg/0.5 mL 1-26 45MG (1 ity of [place] 00:00: SYRINGE) [place] injection 00 SUBCUTANEO Medi abhishek USLY EVERY Branch 8 WEEKS. [facility] Yes INJECT Unive rs mg/0.5 mL [...] Medi abhishek USLY EVERY Branch 8 WEEKS. [facility] Yes INJECT Unive rs mg/0.5 mL 1-26 45MG (1 [place]y of [place] 00:00: SYRINGE) [place] injection 00 SUBCUTANEO Medi abhishek USLY EVERY Branch 8 WEEKS. [facility] 2018-09 Yes INJECT Unive rs mg/0.5 mL 1-26 45MG (1 [place] of [place] 00:[place]: [place]YRING[place]) [place] injection 00 SUBCUTANEO Medi abhishek USLY EVERY Branch 8 WEEKS. [facility] Yes INJECT Unive rs mg/0.5 mL 1-26 45MG (1 ity of [place] 00:00: SYRINGE) [place] injection 00 SUBCUTANEO Medi abhishek USLY EVERY Branch 8 WEEKS. [facility]09 Yes INJECT Unive rs mg/0.5 mL 1-26 45MG (1 ity of [place] 00:00: SYRINGE) [place] injection 00 SUBCUTANEO Medi abhishek USLY EVERY Branch 8 WEEKS. [facility] Yes INJECT Unive rs mg/0.5 mL 1-26 45MG (1 ity of [place] 00:00: SYRINGE) [place] injection 00 SUBCUTANEO Medi abhishek USLY EVERY Branch 8 WEEKS. [facility] 2018-09 Yes INJECT Unive rs mg/0.5 mL 1-26 45MG (1 ity of [place] 00:00: SYRINGE) [place] injection 00 SUBCUTANEO Medi abhishek USLY EVERY Branch 8 WEEKS. [facility] 2018-09 Yes INJECT Unive rs mg/0.5 mL 1-26 45MG (1 ity of [place] 00:00: SYRINGE) [place] injection 00 SUBCUTANEO Medi abhishek USLY EVERY Branch 8 WEEKS. [facility] 2018-09 Yes INJECT Unive rs mg/0.5 mL 1-26 45MG (1 ity of [place] 00:00: SYRINGE) [place] injection 00 SUBCUTANEO Medi abhishek USLY EVERY Branch 8 WEEKS. [facility] Yes INJECT Unive rs mg/0.5 mL 1-26 45MG (1 ity of [place] 00:00: SYRINGE) [place] injection 00 SUBCUTANEO Medi abhishek USLY EVERY Branch 8 WEEKS. Immunizations Ordered Filled Immunization Date Status Comments [facility] Immunization Name Name Influenza Virus 2020-06-23 [...] y of Vaccine Quad .5 mL 00:00:00 [facility] Influenza Virus 2019-08-06 Completed Universit y of Vaccine 00:00:00 [facility] Influenza Virus 2019-08-06 Completed Universit y of Vaccine 00:00:00 [facility] Influenza Virus 2019-08-06 Completed Universit y of Vaccine 00:00:00 [facility] Influenza Virus 2019-08-06 Completed Universit y of Vaccine 00:00:00 [facility] Influenza Virus 2019-08-06 Completed Universit y of Vaccine 00:00:00 [facility] Influenza Virus 2019-08-06 Completed Universit y of Vaccine 00:00:00 [facility] Influenza Virus 2019-08-06 Completed Universit y of Vaccine 00:00:00 [facility] Influenza Virus 2019-08-06 Completed Universit y of Vaccine 00:00:00 [facility] Influenza Virus 2019-08-06 Completed Universit y of Vaccine 00:00:00 [facility] Influenza Virus 2019-08-06 Completed Universit y of Vaccine 00:00:00 [facility] Influenza Virus 2019-08-06 Completed Universit y of Vaccine 00:00:00 [facility] Influenza Virus 2019-08-06 Completed Universit y of Vaccine 00:00:00 [facility] Influenza Virus 2019-08-06 Completed Universit y of Vaccine 00:00:00 [facility] Influenza Virus 2019-08-06 Completed Universit y of Vaccine 00:00:00 [facility] Influenza Virus 2019-08-06 Completed Universit y of Vaccine 00:00:00 [facility] Influenza Virus 2019-08-06 Completed Universit y of Vaccine 00:00:00 [facility] Influenza Virus 2019-08-06 Completed Universit y of Vaccine 00:00:00 [facility] Influenza Virus 2019-08-06 Completed Universit y of Vaccine 00:00:00 [facility] Influenza Virus 2019-08-06 Completed Universit y of Vaccine 00:00:00 [facility] Influenza Virus 2019-08-06 Completed Universit y of Vaccine 00:00:00 [facility] Influenza Virus 2019-08-06 Completed Universit y of Vaccine 00:00:00 [facility] Influenza Virus 2019-08-06 Completed Universit y of Vaccine 00:00:00 [facility] Influenza Virus 2019-08-06 Completed Universit y of Vaccine 00:00:00 [facility] Influenza Virus 2019-08-06 Completed Universit y of Vaccine 00:00:00 [facility] Influenza Virus 2019-08-06 Completed Universit y of Vaccine 00:00:00 [facility] Branch Influenza Virus 2019-08-06 Completed Universit y of Vaccine 00:00:00 [facility] Influenza Virus 2019-08-06 Completed Universit y of Vaccine 00:00:00 [facility] Influenza Virus 2019-08-06 Completed Universit y of Vaccine 00:00:00 [facility] Influenza Virus 2019-08-06 Completed Universit y of Vaccine 00:00:00 [facility] Influenza Virus 2019-08-06 Completed Universit y of Vaccine 00:00:00 [facility] Influenza Virus 2019-08-06 Completed Universit y of Vaccine 00:00:00 [facility] Branch Influenza Virus 2019-08-06 Completed Universit y of Vaccine 00:00:00 [facility] Influenza Virus 2019-08-06 Completed Universit y of Vaccine 00:00:00 [facility] Influenza Virus 2019-08-06 Completed Universit y of Vaccine 00:00:00 [facility] Influenza Virus 2019-08-06 Completed Universit y of Vaccine 00:00:00 [facility] Influenza Virus 2019-08-06 Completed Universit y of Vaccine 00:00:00 [facility] Influenza Virus 2019-08-06 Completed Universit y of Vaccine 00:00:00 [facility] Influenza Virus 2019-08-06 Completed Universit y of Vaccine 00:00:00 [facility] Influenza Virus 2019-08-06 Completed Universit y of Vaccine 00:00:00 [facility] Influenza Virus 2019-08-06 Completed Universit y of Vaccine 00:00:00 [facility] Influenza Virus 2019-08-06 Completed Universit y of Vaccine 00:00:00 [facility] Influenza Virus 2019-08-06 Completed Universit y of Vaccine 00:00:00 [facility] Influenza Virus 2019-08-06 Completed Universit y of Vaccine 00:00:00 [facility] Influenza Virus 2019-08-06 Completed Universit y of Vaccine 00:00:00 [facility] Influenza Virus 2019-08-06 Completed Universit y of Vaccine 00:00:00 [facility] Influenza Virus 2019-08-06 Completed Universit y of Vaccine 00:00:00 [facility] Vital Signs Vital Name Observation Time Observation Value Comments Source Systolic blood 2023-02-04 15:56:00 128 mm[Hg] Univer sity of pressure [facility] Diastolic blood 2023-02-04 15:56:00 84 mm[Hg] Unive rsity of pressure [facility] Heart rate 2023-02-04 15:56:00 112 /min Universi ty [facility] Respiratory rate 2023-02-04 15:56:00 18 /min Univ ersity of [facility] Body height 2023-02-04 15:56:00 160 cm Universi [facility] Body weight 2023-02-04 15:56:00 87.544 kg Universi ty [facility] BMI 2023-02-04 15:56:00 34.19 kg/m2 [facility] Oxygen saturation in 2023-02-04 15:56:00 97 /min [facility] Arterial blood by [facility] Pulse oximetry Branch Systolic blood 2023-01-02 14:49:00 140 mm[Hg] Univer sity of pressure [facility] Diastolic blood 2023-01-02 14:49:00 83 mm[Hg] Unive rsity of pressure [facility] Heart rate 2023-01-02 14:48:00 104 /min Universi ty [facility] Body temperature 2023-01-02 14:48:00 37.5 Lashawn Univ ersity of [facility] Respiratory rate 2023-01-02 14:48:00 17 /min Univ ersity of [facility] Body height 2023-01-02 14:48:00 160 cm Universi ty [facility] Body weight 2023-01-02 14:48:00 89.359 kg [facility]i ty [facility] BMI 2023-01-02 14:48:00 34.90 kg/m2 [facility] Oxygen saturation in 2023-01-02 14:48:00 98 /min University of Arterial blood by [facility] Pulse oximetry Branch Systolic blood 2022-12-07 18:30:00 165 mm[Hg] Univer sity of pressure [facility] Diastolic blood 2022-12-07 18:30:00 108 mm[Hg] Unive rsity of pressure [facility] Heart rate 2022-12-07 18:30:00 110 /min Universi ty [facility] Respiratory rate 2022-12-07 18:30:00 17 /min Univ ersity of [facility] Oxygen saturation in 2022-12-07 18:30:00 98 /min University of Arterial blood by [facility] Pulse oximetry Branch Body temperature 2022-12-07 17:17:00 38.17 Lashawn Univ ersity of [facility] Body height 2022-12-07 17:10:00 162.6 cm Universi ty [facility] Body weight 2022-12-07 17:10:00 87.544 kg [facility]i ty [facility] BMI 2022-12-07 17:10:00 33.13 kg/m2 [facility] Systolic blood 2022-11-26 16:28:00 133 mm[Hg] Univer sity of pressure [facility] Diastolic blood 2022-11-26 16:28:00 86 mm[Hg] Unive rsity of pressure [facility] Heart rate 2022-11-26 16:26:00 99 /min Universi ty [facility] Respiratory rate 2022-11-26 16:26:00 18 /min Univ ersity of [facility] Body height 2022-11-26 16:26:00 157.5 cm [facility] Body weight 2022-11-26 16:26:00 87.544 kg [facility] BMI 2022-11-26 16:26:00 35.30 kg/m2 [facility] ty [facility] Oxygen saturation in 2022-11-26 16:26:00 97 /min University of Arterial blood by [facility] Pulse oximetry Branch Systolic blood 2022-11-12 16:25:00 151 mm[Hg] Univer sity of pressure [facility] Diastolic blood 2022-11-12 16:25:00 92 mm[Hg] Unive rsity of pressure [facility] Heart rate 2022-11-12 16:25:00 95 /min Universi ty [facility] Oxygen saturation in 2022-11-12 16:25:00 97 /min University of Arterial blood by [facility] Pulse oximetry Branch Body temperature 2022-11-12 16:23:00 36.5 Lashawn Univ ersity of [facility] Respiratory rate 2022-11-12 16:23:00 18 /min Univ ersity of [facility] Body height 2022-11-12 16:23:00 157.5 cm [facility] Body weight 2022-11-12 16:23:00 85.639 kg [facility] BMI 2022-11-12 16:23:00 34.53 kg/m2 [facility] ty [facility] Systolic blood 2022-11-10 15:41:00 134 mm[Hg] Univer sity of pressure [facility] Diastolic blood 2022-11-10 15:41:00 83 mm[Hg] Unive rsity of pressure [facility] Heart rate 2022-11-10 15:41:00 102 /min [facility] Body temperature 2022-11-10 15:41:00 37.39 Lashawn Univ ersity of [facility] Respiratory rate 2022-11-10 15:41:00 18 /min Univ ersity of [facility] Body height 2022-11-10 15:41:00 157.5 cm [facility]i ty [facility] Body weight 2022-11-10 15:41:00 86.212 kg [facility]i [facility] BMI 2022-11-10 15:41:00 34.76 kg/m2 [facility] Oxygen saturation in 2022-11-10 15:41:00 100 /min University of Arterial blood by [place] [facility] Pulse oximetry Branch Systolic blood 2022-11-05 14:46:00 136 mm[Hg] Univer sity of pressure [facility] Diastolic blood 2022-11-05 14:46:00 88 mm[Hg] Unive rsity of pressure [facility] Heart rate 2022-11-05 14:46:00 90 /min Universi ty [facility] Body temperature 2022-11-05 14:46:00 36.56 Lashawn Univ ersity of [facility] Respiratory rate 2022-11-05 14:46:00 18 /min Univ ersity of [facility] Body height 2022-11-05 14:46:00 157.5 cm [facility]i [facility] Body weight 2022-11-05 14:46:00 86.274 kg [facility]i [facility] BMI 2022-11-05 14:46:00 34.79 kg/m2 [facility] Oxygen saturation in 2022-11-05 14:46:00 98 /min University of Arterial blood by [place] [facility] Pulse oximetry Branch Systolic blood 2022-09-27 11:30:00 161 mm[Hg] Univer sity of pressure [facility] Diastolic blood 2022-09-27 11:30:00 85 mm[Hg] Unive rsity of pressure [facility] Heart rate 2022-09-27 11:30:00 116 /min Universi ty [facility] Respiratory rate 2022-09-27 11:30:00 19 /min Univ ersity of [facility] Oxygen saturation in 2022-09-27 11:30:00 95 /min University of Arterial blood by [place] [facility] Pulse oximetry Branch Body temperature 2022-09-27 07:27:00 38 Lashawn Univ ersity of [facility] Body weight 2022-09-27 07:00:00 90.719 kg Universi ty [facility] BMI 2022-09-27 07:00:00 33.28 kg/m2 [facility] ty [facility] Systolic blood 2022-09-20 03:00:00 130 mm[Hg] Univer sity of pressure [facility] Diastolic blood 2022-09-20 03:00:00 65 mm[Hg] Unive rsity of pressure [facility] Heart rate 2022-09-20 03:00:00 106 /min Universi ty [facility] Respiratory rate 2022-09-20 03:00:00 21 /min Univ ersity of [facility] Oxygen saturation in 2022-09-20 03:00:00 94 /min University of Arterial blood by [place] [facility] abhishek Pulse oximetry Branch Body temperature 2022-09-20 00:10:00 37.94 Lashawn Univ ersity of [facility] Body height 2022-09-20 00:10:00 165.1 cm Universi ty [facility] Body weight 2022-09-20 00:10:00 87.544 kg Universi ty [facility] BMI 2022-09-20 00:10:00 32.12 kg/m2 [facility] Systolic blood 2022-09-11 14:52:00 143 mm[Hg] Univer sity of pressure [facility] Diastolic blood 2022-09-11 14:52:00 83 mm[Hg] Unive rsity of pressure [facility] Heart rate 2022-09-11 14:52:00 98 /min [facility]i ty [facility] Body temperature 2022-09-11 14:52:00 36.94 Lashawn Univ ersity of [facility] Respiratory rate 2022-09-11 14:52:00 20 /min Univ ersity of [facility] Body height 2022-09-11 14:52:00 160 cm [facility]i ty [facility] Body weight 2022-09-11 14:52:00 87.544 kg Universi ty [facility] BMI 2022-09-11 14:52:00 34.19 kg/m2 [facility] ty [facility] Oxygen saturation in 2022-09-11 14:52:00 98 /min University of Arterial blood by [employer] abhishek Pulse oximetry Branch Heart rate 2022-08-29 04:25:00 93 /min Universi ty of [facility] Respiratory rate 2022-08-29 04:25:00 21 /min Univ ersity of [facility] Oxygen saturation in 2022-08-29 04:25:00 95 /min University of Arterial blood by [facility] abhishek Pulse oximetry Branch Systolic blood 2022-08-29 04:00:00 140 mm[Hg] Univer sity of pressure [facility] Diastolic blood 2022-08-29 04:00:00 76 mm[Hg] Unive rsity of pressure [facility] Body temperature 2022-08-29 02:57:00 37.56 Lashawn Univ ersity of [facility] Body height 2022-08-29 02:57:00 160 cm Universi ty [facility] Body weight 2022-08-29 02:57:00 83.008 kg [facility] BMI 2022-08-29 02:57:00 32.42 kg/m2 [facility] Systolic blood 2022-08-17 15:45:00 142 mm[Hg] Univer sity of pressure [facility] Diastolic blood 2022-08-17 15:45:00 92 mm[Hg] Unive rsity of pressure [facility] Heart rate 2022-08-17 15:45:00 84 /min [facility]i ty [facility] Body weight 2022-08-17 15:45:00 81.33 kg [facility]i ty [facility] BMI 2022-08-17 15:45:00 31.76 kg/m2 [facility] Oxygen saturation in 2022-08-17 15:45:00 96 /min University of Arterial blood by [facility] Pulse oximetry Branch Body temperature 2022-08-15 22:00:00 36.33 Lashawn Univ ersity of [facility] Heart rate 2022-08-15 13:50:00 99 /min [facility]i ty [facility] Respiratory rate 2022-08-15 13:50:00 18 /min Univ ersity of [facility] Oxygen saturation in 2022-08-15 13:50:00 96 /min University of Arterial blood by [facility] abhishek Pulse oximetry Branch Systolic blood 2022-08-15 10:00:00 130 mm[Hg] Univer sity of pressure [facility] Diastolic blood 2022-08-15 10:00:00 74 mm[Hg] Unive rsity of pressure [facility] Body weight 2022-08-14 19:19:00 82.555 kg Universi ty [facility] BMI 2022-08-14 19:19:00 32.24 kg/m2 [facility] Systolic blood 2022-07-22 15:15:00 135 mm[Hg] Univer sity of pressure [facility] Diastolic blood 2022-07-22 15:15:00 81 mm[Hg] Unive rsity of pressure [facility] Heart rate 2022-07-22 15:15:00 97 /min [facility]i ty [facility] [place] [facility] Body weight 2022-07-22 15:15:00 82.555 kg Universi ty [facility] BMI 2022-07-22 15:15:00 32.24 kg/m2 [facility] Oxygen saturation in 2022-07-22 15:15:00 98 /min University of Arterial blood by [facility] abhishek Pulse oximetry Branch Systolic blood 2022-06-28 16:00:00 130 mm[Hg] Univer sity of pressure [facility] Diastolic blood 2022-06-28 16:00:00 62 mm[Hg] Unive rsity of pressure [facility] Heart rate 2022-06-28 16:00:00 100 /min [facility]i ty [facility] Body temperature 2022-06-28 16:00:00 36.22 Lashawn Univ ersity of [facility] Respiratory rate 2022-06-28 16:00:00 9 /min Univ ersity of [facility] Oxygen saturation in 2022-06-28 16:00:00 95 /min [facility] Arterial blood by [place] [facility] Pulse oximetry Branch Body weight 2022-06-28 09:00:00 87.499 kg [facility]i ty [facility] BMI 2022-06-28 09:00:00 34.17 kg/m2 [facility] Body height 2022-06-28 00:00:00 160 cm [facility] Systolic blood 2022-06-25 14:10:00 131 mm[Hg] Univer sity of pressure [facility] Diastolic blood 2022-06-25 14:10:00 89 mm[Hg] Unive rsity of pressure [facility] Heart rate 2022-06-25 14:10:00 82 /min [facility] ty [facility] Body weight 2022-06-25 14:10:00 83.598 kg Universi ty [facility] BMI 2022-06-25 14:10:00 32.65 kg/m2 [facility] Oxygen saturation in 2022-06-25 14:10:00 97 /min [facility] Arterial blood by [place] [facility] Pulse oximetry Branch Systolic blood 2022-05-28 14:40:00 124 mm[Hg] Univer sity of pressure [facility] Diastolic blood 2022-05-28 14:40:00 76 mm[Hg] Unive rsity of pressure [facility] Heart rate 2022-05-28 14:40:00 83 /min Universi ty [facility] Body weight 2022-05-28 14:40:00 84.687 kg [facility] BMI 2022-05-28 14:40:00 33.07 kg/m2 [facility] Oxygen saturation in 2022-05-28 14:40:00 96 /min [facility] Arterial blood by [place] [facility] Pulse oximetry Branch Systolic blood 2022-04-30 14:11:00 119 mm[Hg] Univer sity of pressure [facility] Diastolic blood 2022-04-30 14:11:00 79 mm[Hg] Unive rsity of pressure [facility] Heart rate 2022-04-30 14:11:00 83 /min [facility]i ty [facility] Body temperature 2022-04-30 14:11:00 36.94 Lashawn Univ ersity of [facility] Respiratory rate 2022-04-30 14:11:00 18 /min Univ ersity of [facility] Body height 2022-04-30 14:11:00 160 cm [facility] Body weight 2022-04-30 14:11:00 81.784 kg [facility] BMI 2022-04-30 14:11:00 31.94 kg/m2 [facility] Oxygen saturation in 2022-04-30 14:11:00 97 /min [facility] Arterial blood by [place] [facility] Pulse oximetry Branch Procedures Procedure Date / Time Performing Clinician Source Performed XR CHEST 2 VW 2023-01-02 15:11:00 Sherly JonesFormerly [facility] CONSENT/REFUSAL FOR 2022-12-07 17:05:24 [facility] Unassigned, [facility] Name Medical Branch CONSENT/REFUSAL FOR 2022-11-26 15:30:32 [facility] Branch DISCLOSURE AND CONSENT, 2022-11-12 06:01:00 Doctor Unassigned, N o [facility] MEDICAL AND SURGICAL Name Medical Bra nc PROCEDURES XR HAND 3+ VW RIGHT 2022-11-10 15:55:44 Paige Jones [facility] PATIENT FINANCIAL 2022-11-05 14:24:59 Doctor Unassigned, No [facility] POLICY Name [facility] EMERGENCY DEPARTMENT 2022-10-15 06:01:00 [facility]assigned, [facility] Name [facility] Branch XR CHEST 1 VW 2022-09-27 07:30:00 Morgan Vargas o [facility] COMP. METABOLIC PANEL 2022-09-20 00:35:00 Meng Galicia [facility] ([id number]) [facility] CBC WITH DIFF 2022-09-20 00:35:00 Meng Galicia [facility] CT ABDOMEN PELVIS W 2022-08-29 03:21:00 Amanda Power [facility] CONTRAST [facility] Branch LIPASE 2022-08-29 03:00:00 Amanda Power [facility] MAGNESIUM 2022-08-29 03:00:00 Amanda Power [facility] COMP. METABOLIC PANEL 2022-08-29 03:00:00 Amanda Power [facility] ([id number]) [facility] CBC WITH DIFF 2022-08-29 03:00:00 Amanda Power [facility] URINALYSIS 2022-08-29 03:00:00 Amanda Power [facility] NOTICE OF PRIVACY 2022-08-29 02:51:00 Doctor Unassigned, No [facility] Name Medical Branch CONSENT/REFUSAL FOR 2022-08-29 02:49:23 Doctor Unassigned, No Un [facility] DIAGNOSIS AND TREATMENT Name Medical Branch LACTIC ACID WHOLE BLOOD 2022-08-15 18:33:00 Eliezer Klein [facility] TEST, SERUM 2022-08-14 19:48:00 Frandy Levy [facility] COMP. METABOLIC PANEL 2022-08-14 19:48:00 Frandy Levy [facility] ([id number]) [facility] CBC WITH DIFF 2022-08-14 19:48:00 Frandy Levy [facility] PROTHROMBIN TIME / INR 2022-08-14 19:48:00 Frandy Levy [facility] ACTIVATED PARTIAL 2022-08-14 19:48:00 Frandy Levy [facility] THRMPLAS NKECHI [facility] LACTIC ACID WHOLE BLOOD 2022-08-14 19:48:00 Frandy Levy [facility] CRITICAL CARE 2022-08-14 19:11:00 Frandy Levy [facility] XR CHEST 2 VW 2022-06-27 19:48:40 Genaro Eubanks [facility] TEST, SERUM 2022-06-27 19:44:00 Genaro Eubanks [facility] THYROID STIMULATING 2022-06-27 19:44:00 Nancy Brar [facility] HORMONE [facility] COMP. METABOLIC PANEL 2022-06-27 19:44:00 Genaro Eubanks [facility] ([id number]) [facility] CBC WITH DIFF 2022-06-27 19:44:00 Genaro Eubanks [facility] RAPID INFLUENZA A/B 2022-06-27 19:44:00 Genaro Eubanks [facility] RAPID RSV 2022-06-27 19:44:00 Genaro Eubanks [facility] COVID-19 (ID NOW RAPID 2022-06-27 19:44:00 Genaro Eubanks [facility] TESTING) Medical Branch Encounters Start End Encounter Admission Attending Care Care Encounter Source Date/Time Date/Time Type Type Clinicians Facility Department ID 2021-07-08 Emergency [facility] [id number] Univers 07:14:58 ity of [facility] 2021-07-07 Emergency [facility] [id number] Univers 03:24:43 ity of [facility] 2021-07-06 Inpatient R MARIUM DAWSON [facility] [[email or web address] HELIX COIL WINDER [id number] Univers 23:03:57 ity of [facility] 2021-07-05 Emergency [facility] [id number] Univers 19:04:39 ity of [facility] 2021-07-04 Emergency [facility] [id number] Univers 23:32:26 ity of [facility] 2021-07-03 Emergency [facility] [id number] Univers 22:25:44 ity of [facility] 2023-05-05 2023-05-05 Patient Jess [facility] [[email or web address]] 1.2.840.114 [id number] Univers 00:00:00 00:00:00 Secure Msg Catrachita PARTIDAPEC 350.1.13.10 ity of [place] 4.2.7.2.686 [facility] [place] [id number] [address] [facility] 2023-03-29 2023-03-29 Outpatient SFA [facility] [id number] Terrence 15:16:53 15:16:53 74740 F Justen 2023-02-11 2023-02-11 Telephone [facility] 1.2.840.114 [id number] Univers 00:00:00 00:00:00 Catrachita TEE 350.1.13.10 ity of I[place] 4.2.7.2.686 [facility] [place] [id number] [facility] [address] [facility] 2023-02-04 2023-02-04 Wireworker Vtc-Lab [facility] [[email or web address]] 1.2.840.114 [id number] Univers 12:00:00 12:15:00 Visit Catrachita Mercado 350.1. 13.10 ity of [place] 4.2.7.2.686 [facility] [place] [id number] [facility] AND DECATUR [address] [facility] 2023-02-04 2023-02-04 [facility] [id number] Univers 11:30:00 11:39:11 CATRACHITA corrales f [facility] 2023-02-04 2023-02-04 Office [facility] 1.2.840.114 [id number] Univers 11:30:00 11:39:11 Visit Catrachita PARTIDAPEC 350.1.13.10 it[place] of [place] [id number] [facility] AND DENIA [address] [facility] 2023-02-03 2023-02-03 Outpatient SFA [facility] [id number] Terrence 11:00:28 11:00:28 [address] [place] 2023-01-13 2023-01-13 Outpatient SFA [facility]FA [id number] Terrence 10:31:00 10:31:00 [id number] F [place] 2023-01-02 2023-01-02 Outpatient [facility] [id number] Univers 09:55:10 23:59:00 [facility] 2023-01-02 2023-01-02 [facility] 1.2.840.114 [id number] Univers 09:55:10 23:59:00 [facility] 350.1.13.10 ity of [place] 4.2.7.2.686 Jethro as BISHOP?BLEA [id number] [facility] [address] MEDICAL OFFICE [facility] 2023-01-02 2023-01-02 [facility] 1.2.840.11 4 [id number] Univers 10:00:00 10:01:10 Care Unknown, Attending HEALTH 350.1.13.10 ity of [place] 4.2.7.2.686 Jethro as BISHOP?BLEA [id number] Il dictristian RICHARDSON [address] MEDICAL OFFICE [facility] 2022-12-07 2022-12-07 Emergency X MIKE, [facility] [[email or web address]] ERT [id number] Univers 12:06:00 13:56:00 AMANDA [facility] 2022-12-07 2022-12-07 Emergency Mike, [facility] 1.2.840.114 [id number] Univers 12:06:00 13:56:00 Amanda TATYANA 350.1.13.10 i ty of [place] [id number] [facility] [address] 2022-11-26 2022-11-26 Outpatient R [facility] [id number] Univers 10:45:00 11:35:16 RACHNA arteaga [facility] 2022-11-26 2022-11-26 Office [facility] 1.2.037.192 [id number] Univers 10:45:00 11:35:16 Visit Rachna JOE 350.1.13.10 i ty of [place].7.2.686 [place] [id number] Il dical NAL 188 [facility] 2022-11-26 2022-11-26 Orders Doctor SONJA 1.2.840.114 [id number] Univers 00:00:00 00:00:00 Only Unassigned, DEXTER 350.1.13.10 ity of [place] [facility] 4.2.7.2.686 Jethro as [phone] [facility] [address] 2022-11-12 2022-11-12 Outpatient R [facility] [id number] Univers 14:00:00 14:00:00 RACHNA arteaga [facility] 2022-11-12 2022-11-12 Outpatient R [facility] [id number] Univers 10:00:00 11:16:39 RACHNA arteaga [facility] 2022-11-12 2022-11-12 Office [facility] 1.2.957.696 [id number] Univers 10:00:00 11:16:39 Visit Rachna JOE 350.1.13.10 i ty of [place] 4.[place].2.[place] [id number] Il dical NAL 188 [facility] 2022-11-12 2022-11-12 Orders Doctor SONJA 1.2.840.114 [id number] Univers 00:00:00 00:00:00 Only UnassignedDEXTER 350.1.13.10 ity of [place] [facility] 4.2.7.2.686 Jethro as [phone] [address] 2022-11-10 2022-11-10 Outpatient [facility] [id number] Univers 09:48:22 23:59:00 REENU ity of [facility] 2022-11-10 2022-11-10 [facility] 1.2.840.114 [id number] Univers 09:48:22 23:59:00 Encounter [facility] 350.1.13.10 ity of [place] 4.2.7.2.686 Jethro as BISHOP?BLEA [phone] Il dical KNEY [address] MEDICAL OFFICE [facility] 2022-11-10 2022-11-10 Urgent [facility] 1.2.840.11 4 [id number] Univers 09:20:00 09:55:29 Care Unknown, Attending HEALTH 350.1.13.10 ity of [place] 4.2.7.2.686 Jethro as BISHOP?BLEA [phone] Il dical DYLANEY [address] MEDICAL OFFICE [facility] 2022-11-05 2022-11-05 Outpatient [facility] [id number] Univers 09:00:00 09:37:01 RACHNA yolisilvana [facility] 2022-11-05 2022-11-05 Office [facility] 1.2.224.545 [id number] Univers 09:00:00 09:37:01 Visit Rachna JOE 350.1.13.10 i ty of [place] 4.[place].2.[place] [id number] Il dical NAL 188 [facility] 2022-11-05 2022-11-05 Orders Doctor CASILLAS 1.2.840.114 [id number] Univers 00:00:00 00:00:00 Only Unassigned, DEXTER 350.1.13.10 ity of [place] [facility] 4.2.7.2.686 Jethro as [id number] [address] 2022-10-15 2022-10-15 Orders Doctor CASILLAS 1.2.840.114 [id number] Univers 00:00:00 00:00:00 Only Unassigned, DEXTER 350.1.13.10 ity of [place] [facility] 4.2.7.2.686 [facility] [id number] [facility] [address] 2022-09-27 2022-09-27 Emergency X [facility] ERT [id number] Univers 00:57:00 05:55:00 MORGAN itsilvana of [facility] 2022-09-27 2022-09-27 [facility] 1.2.899.777 [id number] Univers 00:57:00 05:55:00 Morgan TATYANA 350.1.13.10 i ty of [place] 4.2.7.2.686 [facility] [id number] [place] [address] Branch 2022-09-19 2022-09-19 Emergency X [facility] ERT [id number] Univers 18:05:00 21:16:00 , MENG itsilvana of [facility] 2022-09-19 2022-09-19 [facility]ly [facility] 1.2.840.114 [id number] Univers 18:05:00 21:16:00 , Meng TATYANA 350.1.13.10 i ty of [place] 4.2.7.2.686 [facility] [id number] [place] [address] Branch 2022-09-11 2022-09-11 Wireworker Vtc-Lab [facility] [[email or web address]] 1.2.840.114 [id number] Univers 10:00:00 10:15:00 Visit Catrachita Mercado 350.1. 13.10 ity of IAL[place] 4.2.7.2.686 [facility] [id number] [facility] AND [address] [facility] 2022-09-11 2022-09-11 Outpatient R [facility] [id number] Univers 10:00:00 10:00:00 CATRACHITA velasco [facility] 2022-09-11 2022-09-11 Office Jess [facility] [[email or web address]] 1.2.840.114 [id number] Univers 09:00:00 09:56:11 Visit Catrachita TEE 350.1.13.10 ity of [place] 4.2.7.2.686 [facility] [id number] [facility] AND [address] [facility] 2022-09-10 2022-09-10 Outpatient R [facility] [id number] Univers 09:30:00 09:30:00 CATRACHITA velasco [facility] 2022-09-07 2022-09-07 Telephone [facility] 1.2.840.114 [id number] Univers 00:00:00 00:00:00 Catrachita Oconnor MULTISPEC 350.1.13.10 ity of IAL[place] 4.2.7.2.686 [facility] [phone] [facility] AND [address] [facility] 2022-08-28 2022-08-28 Emergency X [facility] ERT [id number] Univers 20:52:00 22:35:00 AMANDA arteaga [facility] 2022-08-28 2022-08-28 Emergency [facility] 1..840.114 [id number] Univers 20:52:00 22:35:00 Amanda JOE 350.1.13.10 ity of [place] 4.2.7.2.686 [facility] [phone] [place] [address] Branch 2022-08-17 2022-08-17 Nurse Nurse, [facility] Int Med Allergy [facility] [[email or web address]] 1.2.840.114 [id number] Univers 10:00:00 10:30:00 Visit Lorene Roman MULTISPEC 350.1 .13.10 ity of [place] 4.2.7.2.686 [facility] [phone] [facility] AND [address] [facility] 2022-08-17 2022-08-17 Outpatient R [facility] [id number] Univers 10:00:00 10:00:00 LORENE arteaga [facility] 2022-08-17 2022-08-17 Transition MUNA Tello 1.2.840.114 [id number] Univers 00:00:00 00:00:00 of Wen RICHEY 350.1.13.10 it y of [place] 4.2.7.2.686 [facility] [id number] [facility] [address] 2022-08-14 2022-08-15 Inpatient X ERNIE [facility] [[email or web address]] JACKELYN [id number] Univers 13:24:00 17:15:00 ELIEZER arteaga [facility] 2022-08-14 2022-08-15 Hospital Frandy Levy [facility] [[email or web address]] 1.2.840. 114 [id number] Univers 13:24:00 17:15:00 Encounter Eliezer Klein 350.1.13.10 ity of [place] 4.2.7.2.686 [facility] [id number] [facility] [address] 2022-08-14 2022-08-14 Malachi Mercado [facility] [[email or web address]] 1.2.840.114 [id number] Univers 00:00:00 00:00:00 Catrachita TEE 350.1.13.10 ity of [place] 4.2.7.2.686 [facility] [id number] [facility] AND [address] [facility] 2022-07-22 2022-07-22 Nurse Nurse, [facility] Int Med Allergy [facility] [[email or web address]] 1.2.840.114 [id number] Univers 09:30:00 10:00:00 Visit Lorene RomanPEC 350.1 .13.10 ity of I[place] 4.2.7.2.[address] [place] [address] [id number] [facility] AND [address] [facility] 2022-07-22 2022-07-22 Outpatient R [facility] [id number] Univers 09:30:00 09:30:00 LORENE arteaga [facility] 2022-06-30 2022-06-30 Transition MUNA Tello 1.2.840.114 [id number] Univers 00:00:00 00:00:00 of Wen RICHEY 350.1.13.10 it y of [place] 4.2.7.2.686 [facility] [id number] [facility] [address] 2022-06-27 2022-06-28 Outpatient X ERNIE [facility] [[email or web address]] JACKELYN [id number] Univers 13:49:00 13:32:00 ELIEZER arteaga [facility] 2022-06-27 2022-06-28 Emergency Vasut, Genaro J [facility] [[email or web address]] 1.2.840.1 14 [id number] Univers 13:49:00 13:32:00 Eliezer Klein 350.1.13.10 ity of [place] 4.2.7.2.686 [facility] [phone] [address] 2022-06-25 2022-06-25 Nurse Nurse, [facility] Int Med Allergy [facility] [[email or web address]] 1.2.840.114 [id number] [facility] 09:30:00 10:00:00 Visit Catrachita Mercado MULTISPEC 350.1. 13.10 ity of [place] 4.2.7.2.686 [facility] [id number] [address] [facility]ES [facility]IC 2022-06-25 2022-06-25 Outpatient Tammi [facility] [id number] [facility] 09:30:00 09:30:00 CATRACHITA velasco [facility] 2022-05-28 2022-05-28 Nurse Nurse, [facility] Int Med Allergy [facility] [[email or web address]] 1.2.840.114 [id number] [facility] 10:00:00 10:30:00 Visit Catrachita Mercado MULTISPEC 350.1. 13.10 ity of [place]AL[place] 4.2.7.2.[address] [place] [phone] [facility] 2022-05-28 2022-05-28 Outpatient Tammi [facility] [id number] Univers 10:00:00 10:00:00 CATRACHITA velasco [facility] 2022-05-13 2022-05-13 Telephone [facility] 1.2.890.174 [id number] Univers 00:00:00 00:00:00 [facility] 350.1.13.10 it y of [place] 4.2.7.2.686 [facility] [id number] [address] ([facility]) 2022-04-30 2022-04-30 Outpatient Tammi [facility] [id number] Univers 09:30:00 10:06:23 CATRACHITA velasco [facility] 2022-04-30 2022-04-30 [facility] 1.2.840.114 [id number] Univers 09:30:00 10:06:23 Visit Catrachita TEE 350.1.13.10 ity of [place] 4.2.7.2.686 [facility] [place] [id number] [facility] AND [address] [facility] 2022-04-30 2022-04-30 Outpatient [facility] [id number] Univers 09:30:00 10:06:23 CATRACHITA corrales eboni [facility] 2022-04-23 2022-04-23 Refill [facility] 1.2.840.114 [id number] Univers 00:00:00 00:00:00 Catrachita PARTIDAPEC 350.1.13.10 ity of [place] 4.2.7.2.686 [facility] [place] [id number] [facility] AND [address] [facility] 2022-04-02 2022-04-02 Telephone [facility] 1.2.840.114 [id number] Univers 00:00:00 00:00:00 Catrachita TEE 350.1.13.10 ity of IAL[place] 4.2.7.2.[address] [facility] [place] [id number] [facility] AND [address] [facility] 2022-03-30 2022-03-30 Outpatient Tammi [facility] [id number] Univers 13:00:00 15:10:07 LORENE arteaga of [facility] 2022-03-30 2022-03-30 Nurse Nurse, [facility] Int Med Allergy [facility] [[email or web address]] 1.2.840.114 [id number] Univers 13:00:00 15:10:07 Visit Lorene RomanPEC 350.1 .13.10 ity of [place] 4.2.7.2.686 [facility] [place] [phone] [facility] AND [address] [facility] 2022-03-05 2022-03-05 Outpatient R [facility] [id number] Univers 09:00:00 09:57:41 LORENE arteaga [facility] 2022-03-05 2022-03-05 Nurse Nurse, [facility] Int Med Allergy [facility] [[email or web address]] 1.2.840.114 [id number] Univers 09:00:00 09:57:41 Visit Lorene Roman MULTISPEC 350.1 .13.10 [place] [id number] [address] [facility] 2022-02-04 2022-02-04 Nurse Nurse, [facility] Int Med Allergy [facility] [[email or web address]] 1.2.840.114 [id number] Univers 09:00:00 09:30:00 Visit Lorene Roman MULTISPEC 350.1 .13.10 [place] [id number] [facility] AND [address] [facility] 2022-02-04 2022-02-04 Outpatient [facility] [id number] Univers 09:00:00 09:00:00 LORENE arteaga [facility] 2022-01-29 2022-01-29 Malachi [facility] 1.2.840.114 [id number] Univers 00:00:00 00:00:00 Catrachita TEE 350.1.13.10 it[place] [id number] [address] [facility] 2022-01-27 2022-01-27 Malachi Martinez [facility] [[email or web address]] 1.2.840.114 [id number] Univers 00:00:00 00:00:00 [facility] 350.1.13.10 it y of [place] 4.2.7.2.686 Jethro as BISHOP?BLEA [phone] [place] d[address] MEDICAL OFFICE BUILDING 2022-01-09 2022-01-09 Outpatient R [facility] [id number] Univers 08:30:00 11:32:35 CATRACHITA velasco [facility] 2022-01-09 2022-01-09 Office [facility] 1.2.840.114 [id number] Univers 08:30:00 11:32:35 Visit Catrachita PARTIDAPEC 350.1.13.10 ity of [place] 4.2.7.2.[address] [place] [address] [id number] [facility] AND [address] [facility] 2022-01-05 2022-01-05 Telephone [facility] 1..840.114 [id number] Univers 00:00:00 00:00:00 Catrachita PARTIDAPEC 350.1.13.10 ity of [place] 4.2.7.2.[address] [place] [address] [phone] [facility] AND [address] [facility] 2021-12-11 2021-12-11 Nurse Nurse, [facility] Int Med Allergy [facility] [[email or web address]] 1..840.114 [id number] Univers 09:00:00 11:00:00 Visit Catrachita Mercado 350.1. 13.10 ity of [place] 4.2.7.2.[address] [place] [address] [phone] [facility] AND [address] [facility] 2021-12-11 2021-12-11 Outpatient R [facility] [id number] Univers 09:00:00 09:00:00 CATRACHITA velasco [facility] 2021-11-22 2021-11-22 Emergency X Cristofer HENRY [facility] [[email or web address]] ERT [id number] Univers 14:44:00 20:04:00 ity of [facility] 2021-11-22 2021-11-22 Emergency Cristofer Henry [facility] [[email or web address]] 1..840.114 [id number] Univers 14:44:00 20:04:00 Ceci JOE 350.1.13.10 i ty of [place] 4.2.7.[address] [place] [address] [id number] [facility] [address] 2021-11-14 2021-11-14 Office Jess [facility] [[email or web address]] 1.2.840.114 [id number] Univers 09:00:00 11:12:34 Visit Catrachita TEE 350.1.13.10 ity of [place] 4.2.7.2.[address] [place] [address] [phone] [facility] AND [place]ZA [address] [facility] 2021-11-14 2021-11-14 Outpatient Tammi [facility] [id number] Univers 09:00:00 11:12:34 CATRACHITA velasco [facility] 2021-11-14 2021-11-14 Outpatient Tammi [facility] [id number] Univers 09:00:00 09:00:00 CATRACHITA velasco [facility] 2021-11-14 2021-11-14 Outpatient Tammi [facility] [id number] Univers 09:00:00 09:00:00 CATRACHITA velasco [facility] 2021-11-12 2021-11-12 Wireworker Sarah, [facility] [[email or web address]] 1.2.8 40.114 [id number] Univers 08:00:00 08:15:00 Visit Catrachita Mercado 350.1.1 3.10 ity of [place] 4.2.7.2.686 [facility] [id number] Il dical [facility] [address] [facility] 2021-11-12 2021-11-12 Outpatient Tammi [facility] [id number] Univers 08:00:00 08:00:00 CATRACHITA velasco [facility] 2021-11-12 2021-11-12 Orders Doctor SONJA 1.2.840.114 [id number] Univers 00:00:00 00:00:00 Only Unassigned, DEXTER 350.1.13.10 ity of [place] [facility] 4.2.7.2.686 Jethro [id number] [facility] [address] 2021-11-10 2021-11-10 Telephone Robert [facility] [[email or web address]] 1.2.840.114 [id number] Univers 00:00:00 00:00:00 [facility] 350.1.13.10 it y of [facility] 4.2.7.2.686 [place] [facility] [id number] [address] ([facility]) 2021-11-07 2021-11-07 Outpatient Tammi [facility] [id number] Univers 11:00:00 11:00:00 CATRACHITA kentsilvana savanna velasco [facility] 2021-11-07 2021-11-07 Outpatient R [facility] [id number] Univers 11:00:00 11:00:00 CATRACHITA jenni savanna velasco [facility] 2021-11-05 2021-11-05 Patient Jess [facility] [[email or web address]] 1.2.840.114 [id number] Univers 00:00:00 00:00:00 Secure Msg Catrachita Oconnor MULTISPEC 350.1.13.10 [place] [phone] [facility] AND [address] [facility] 2021-11-05 2021-11-05 Patient Jess [facility] [[email or web address]] 1.2.840.114 [id number] Univers 00:00:00 00:00:00 Secure Msg Catrachita Oconnor MULTISPEC 350.1.13.10 ity of [place] 4.2.7.2.686 [facility] [phone] [facility] AND [address] DI[facility]ETES CLINIC 2021-10-30 2021-10-30 Telemedici [facility] 1.2.840.114 [id number] Univers 08:30:00 09:00:00 ne Visit Catrachita Oconnor MULTISPEC 350.1.13.10 ity of [place] 4.2.7.2.686 [facility] [id number] [facility] AND [address] [facility] 2021-10-30 2021-10-30 Outpatient [facility] [id number] Univers 08:30:00 08:30:00 CATRACHITA arteaga savanna velasco [facility] 2021-10-30 2021-10-30 Outpatient [facility] [id number] Univers 08:30:00 08:30:00 CATRACHITA velasco [facility] 2021-10-29 2021-10-29 Marium Garrett [facility] [[email or web address]] .2.840.114 [id number] Univers 00:00:00 00:00:00 TATYANA 350.1.13.10 i ty [place] [phone] Il dical NAL [address] BUILDING 2021-10-19 2021-10-19 Malachi Martinez MESALAS 1.2.840.114 [id number] Univers 00:00:00 00:00:00 Rosio HEALTH 350.1.13.10 it y of [place] 4.2.7.2.686 Jethro as BISHOP?BLEA [phone] Il dical KNEY [address] MEDICAL OFFICE BUILDING 2021-10-17 2021-10-17 Transition MUNA Camejo 1.2.840.114 [id number] Univers 00:00:00 00:00:00 of Care Alanna RICHEY 350.1.13.10 i [place] [phone] [facility] [address] 2021-10-15 2021-10-16 Outpatient X ERNIE [facility] [[email or web address]] JACKELYN [id number] Univers 14:23:00 14:50:00 ELIEZER arteaga [facility] 2021-10-15 2021-10-16 Emergency Marium Hickey [facility] [[email or web address]] 1.2.840. 114 [id number] Univers 14:23:00 14:50:00 Eliezer Klein 350.1.13.10 it[place] [phone] [facility] [address] 2021-09-27 2021-09-27 Emergency X INESSA MESALAS ERT [id number] Univers 11:15:00 14:54:00 BA arteaga [facility] 2021-09-27 2021-09-27 Emergency Ismael Cotter [facility] [[email or web address]] 1.2. 840.114 [id number] Univers 11:15:00 14:54:00 Ba Pascal 350.1.13.10 [place] of [place] [phone] [facility] [address] 2021-09-27 2021-09-27 Urgent Juan [facility] [[email or web address]] 1.2.840.114 [id number] Univers 10:20:00 10:20:00 Care Rosio HEALTH 350.1.13.10 it y of [facility] 4.2.7.2.686 Jeth[place] as BISHOP?BLEA [phone] [place] benjamin AMANDA [address] [place] [address] MEDICAL OFFICE BUILDING 2021-09-27 2021-09-27 Outpatient R [facility] [id number] Univers 10:20:00 10:16:45 ROSIO ity of [facility] 2021-08-12 2021-08-12 Telephone Jess [facility] [[email or web address]] 1.2.840.114 [id number] Univers 00:00:00 00:00:00 Catrachita PARTIDAPEC 350.1.13.10 it[place] [phone] [address] [facility] 2021-08-12 2021-08-12 Orders Doctor SONJA 1.2.840.114 [id number] Univers 00:00:00 00:00:00 Only Unassigned, DEXTER 350.1.13.10 ity of [place] [facility] 4.2.7.2.686 Jethro as [phone] [address] 2021-08-08 2021-08-08 Wireworker Vtc-Lab [facility] [[email or web address]] 1.2.840.114 [id number] Univers 11:56:09 12:11:09 Visit Catrachita Mercaod 350.1. 13.10 it[place] [phone] [address] DIABETES CLINIC 2021-08-08 2021-08-08 Outpatient R [facility] [id number] Univers 11:00:00 11:56:31 CATRACHITA corrales f [facility] 2021-08-08 2021-08-08 [facility] 1.2.840.114 [id number] Univers 10:03:35 11:56:31 Visit Catrachita TEE 350.1.13.10 it[place] [phone] [address] DIABETES CLINIC 2021-07-22 2021-07-22 Outpatient R [facility] [id number] Univers 13:30:00 14:05:17 ity [facility] 2021-07-22 2021-07-22 Office Marium Dawson [facility] [[email or web address]] 1.2.840.114 [id number] Univers 13:17:43 14:05:17 Visit [place] 350.1.13.10 i ty of [place] [phone] [address] 2021-07-22 2021-07-22 Outpatient R [facility] [id number] Univers 13:30:00 13:30:00 ity [facility] 2021-07-22 2021-07-22 Outpatient R [facility] [id number] Univers 13:30:00 13:30:00 ity [facility] 2021-07-11 2021-07-11 Office Marium Dawson [facility] [[email or web address]] 1.2.840.114 [id number] Univers 16:01:12 16:49:47 Visit [place] 350.1.13.10 i ty of [place] [phone] [address] 2021-07-11 2021-07-11 Outpatient R [facility] [id number] Univers 16:00:00 16:49:47 ity [facility] 2021-07-11 2021-07-11 Telephone Marium Dawson [facility] 1.2.840.11 [id number] Univers 00:00:00 00:00:00 REJI 350.1.13.10 it y of [place] [facility] [phone] [address] 2021-06-20 2021-06-20 Emergency Cristofer Henry [facility] [[email or web address]] 1.2.840.114 [id number] Univers 17:48:00 21:24:00 Ceci [place] 350.1.13.[address] 4[place]2.7.2.[place] [phone] [address] 2021-05-08 2021-05-08 Letter SONJA Shepherd 1.2.840.114 [id number] Univers 00:00:00 00:00:00 (Out) Dedra Ponce DEXTER 350.1.13.10 it y of [facility] 4.2.7.2.686 Jethro as [phone] [facility] [address]19 [address] 2021-05-07 2021-05-07 Laboratory Only, Ang Db Test [facility] [[email or web address]] 1.2.8 40.114 [id number] Univers 09:27:26 09:37:26 [facility] 350.1.13.10 ity of [place] 4.2.7.2.686 Jethro as Bsihop?Blea [phone] [place] danny[address] Medical Office Building 2021-05-07 2021-05-07 Outpatient R [facility] [id number] Univers 09:25:00 09:25:00 BOBBI arteaga [facility] 2021-04-11 2021-04-11 Wireworker Ctc-Lab [facility] [[email or web address]] 1.2.840.114 [id number] Univers 12:33:14 12:48:14 Visit Catrachita Mercado 350.1. 13.10 ity of [place]2.[place] [phone] [facility] [address] DIABETES CLINIC 2021-04-11 2021-04-11 Office Jess [facility] [[email or web address]] 1.2.840.114 [id number] Univers 11:19:19 12:35:51 Visit Catrachita TEE 350.1.13.10 it[place] [phone] [facility] [address] DIABETES CLINIC 2021-04-11 2021-04-11 Outpatient Tammi [facility] [id number] Univers 12:00:00 12:00:00 CATRACHITA velasco [facility] 2021-04-08 2021-04-08 Office Marium Dawson [facility] 1.2.840.114 [id number] Univers 10:25:23 11:26:58 Visit Reji 350.1.13.10 it y of Women's 4.2.7.2.686 [facility] [phone] [place] [address] Branch 2021-04-08 2021-04-08 Outpatient R [facility] [id number] Univers 10:30:00 10:30:00 ity of [facility] 2021-03-25 2021-03-25 Outpatient MARIUM [facility] [id number] Univers 15:30:00 15:30:00 ity of [facility] 2021-03-18 2021-03-18 Wireworker Vtc-Lab [facility] [[email or web address]] 1.2.840.114 [id number] Univers 14:34:51 14:49:51 Visit Catrachita Mercado 350.1. 13.10 ity of [place] 4.2.7.2.686 [facility] [place] [phone] [facility] [place] [address] DIABETES CLINIC 2021-03-18 2021-03-18 Office Jess [facility] [[email or web address]] 1.2.840.114 [id number] Univers 13:38:25 14:35:19 Visit Catrachita TEE 350.1.13.10 ity of [place] 4.2.7.2.686 [facility] [place] [phone] [facility] [place] [address] DIABETES CLINIC 2021-03-18 2021-03-18 Outpatient Tammi [facility] [id number] Univers 13:30:00 13:30:00 CATRACHITA corrales f [facility] 2021-02-28 2021-02-28 Office Marium Dawson [facility] [[email or web address]] 1.2.840.114 [id number] Univers 15:07:35 16:01:07 Visit Tatyana 350.1.13.10 i ty of [place] 4.2.7.2.686 [facility] Professio [phone] [address] 2021-02-28 2021-02-28 Outpatient MARIUM [facility] [id number] Univers 15:30:00 15:30:00 ity of [facility] 2021-02-26 2021-02-26 Emergency [facility] 1.2.501.912 [id number] Univers 19:08:00 22:19:00 Ashwin Saenz [place] 350.1.13.[address] [place] [phone] [facility] [address] 2021-02-21 2021-02-22 Hospital Marium Dawson [facility] [[email or web address]] 1.2.840.114 [id number] Univers 07:31:00 12:50:00 Encounter [place] [address]1.13.[address] [place].7.2.[place] [phone] [facility] 083 [address] 2021-02-21 2021-02-21 Anesthesia Ernesto Tesfaye [facility] [[email or web address]] 1.2.840.11 [id number] Univers 08:16:00 13:05:00 Event Mati Grissom Tatyana 350.1.13.[address] [place] Surgical [phone] [facility] 020 Branch 2021-02-21 2021-02-21 Surgery Marium Dawson [facility] [[email or web address]] 1.2.840.114 [id number] Univers 08:30:00 12:52:00 [place] 350[address]1.13.[address] [place] Surgical [phone] [facility] 020 Branch 2021-02-21 2021-02-21 Orders Doctor SONJA 1.2.840.114 [id number] Univers 00:00:00 00:00:00 Only Unassigned, DEXTER 350.1.13.10 ity of [place] [facility] 4.2.7.2.686 Jethro as [phone] [facility] [address]9 [address] 2021-02-20 2021-02-20 Outpatient R [facility] [id number] Univers 08:30:00 08:30:00 ity of [facility] 2021-02-20 2021-02-20 Wireworker Ace Smith Lab Main [facility] [[email or web address]] 1.2.8 40.114 [id number] Univers 08:08:54 08:23:54 Visit Alejandro Dawsonelyssa Joe 350.1.13.[address] [place] [phone] Me dical nal 353 [facility] 2021-02-20 2021-02-20 Laboratory Only, Adc Test [facility] [[email or web address]] 1.2.840. 114 [id number] Univers 08:08:25 08:23:25 Only Fish, Marium Joe 350.1.13.[address] [place].7.2.[place] [phone] [facility] [address] 2021-02-19 2021-02-19 Orders Doctor SONJA 1.2.840.114 [id number] Univers 00:00:00 00:00:00 Only Unassigned, DEXTER 350.1.13.[address] [facility] 4.2.7.2.686 Jethro as [phone] [facility] [address] 2021-02-18 2021-02-18 Outpatient R [facility] [id number] Univers 08:15:00 08:15:00 ity of [facility] 2021-02-06 2021-02-06 Outpatient R [facility] [id number] Univers 10:30:00 10:30:00 ity of [facility] 2021-01-29 2021-01-29 Outpatient R [facility] [id number] Univers 00:00:00 00:00:00 ity of [facility] 2021-01-24 2021-01-24 Office Marium Dawson [facility] [[email or web address]] 1.2.840.114 [id number] Univers 14:18:23 15:08:39 Visit Tatyana 350.1.13.[address] [place] [phone] Il dical nal 134 [facility] 2021-01-24 2021-01-24 Outpatient R [facility] [id number] Univers 14:30:00 14:30:00 ity of [facility] 2021-01-24 2021-01-24 Orders Doctor CASILLAS 1.2.840.114 [id number] Univers 00:00:00 00:00:00 Only Unassigned, DEXTER 350.1.13.10 ity of [place] [facility] 4.2.7.2.686 Jethro as [phone] [facility] [address] 2021-01-21 2021-01-21 Outpatient R [facility] [id number] Univers 09:00:00 09:00:00 ity [facility] 2021-01-02 2021-01-02 Outpatient R [facility] [id number] Univers 10:30:00 10:30:00 [facility] 2020-11-25 2020-11-25 [facility] 1.2.840.114 [id number] Univers 00:00:00 00:00:00 Outreach Miko ALLISON 350.1.13.10 i ty of [place].7.2.686 [place] [phone] Il dicfl [address] 2020-09-28 2020-09-28 Emergency [facility] 1.2.674.862 [id number] Univers 13:43:00 16:38:00 Morgan Joe 350.1.13.[address] [place].7.2.[place] [phone] [facility] [address] 2020-09-17 2020-09-17 Office Eleazar [facility] [[email or web address]] 1.2.113.016 [id number] Univers 13:24:29 14:54:21 Visit Rachna Joe 350.1.13.10 i ty of [place].7.2.[place] [phone] Il dical nal [address] [facility] 2020-09-17 2020-09-17 Outpatient R [facility] [id number] Univers 13:45:00 13:45:00 RACHNA arteaga [facility] 2020-09-05 2020-09-05 Office Rachna Bush [facility] [[email or web address]] 1.2.840.1 14 [id number] Univers 10:40:42 11:50:15 Visit Rm, Adc Surg Spec Procedure Tatyana 3 50.1.13.10 ity of [place] [phone] Il benjamin [address] 2020-09-05 2020-09-05 Outpatient R [facility] [id number] Univers 10:45:00 10:45:00 RACHNA arteaga [facility] 2020-09-05 2020-09-05 Orders Doctor CASILLAS 1.2.840.114 [id number] Univers 00:00:00 00:00:00 Only Unassigned, DEXTER 350.1.13.10 ity of [place] [facility] 4.2.7.2.686 Jethro as [phone] [address] 2020-08-06 2020-08-06 Office [facility] 1.2.344.866 [id number] Univers 15:20:07 16:38:34 Visit Rachna Floreston 350.1.13.[address] [place] [phone] [address] 2020-08-06 2020-08-06 Outpatient R [facility] [id number] Univers 15:30:00 15:30:00 RACHNA arteaga [facility] 2020-07-31 2020-07-31 Telephone [facility] 1.2.840.114 [id number] Univers 00:00:00 00:00:00 Rachna Joe 350.1.13.[address] [place].7.2.[place] [phone] [address] 2020-07-30 2020-07-30 Office [facility] 1.2.302.702 [id number] Univers 14:25:30 16:00:44 Visit Rachna Flore[place] 350.1.13.[address] 4[place]2.7.2.[place] [phone] [address] 2020-07-30 2020-07-30 Outpatient R [facility] [id number] Univers 14:30:00 14:30:00 RACHNA arteaga [facility] 2020-07-30 2020-07-30 Orders Doctor CASILLAS 1.2.840.114 [id number] Univers 00:00:00 00:00:00 Only Unassigned, DEXTER 350.1.13.10 ity of [place] [facility] 4.2.7.2.686 Jethro as [phone] [address] 2020-07-27 2020-07-27 Urgent Provider, [facility] [[email or web address]] 1.2.840.114 [id number] Univers 13:06:42 14:02:20 Bobbi Hernandez [facility] 350.1.13.10 ity of [place] 4.2.7.2.686 Jethro as Professio [phone] Il dical nal 044 [address] Office Building One 2020-07-27 2020-07-27 Outpatient R [facility] [id number] Univers 13:20:00 13:20:00 BOBBI ity of [facility] 2020-07-18 2020-07-18 Laboratory Pc, Adc Echo Room 1 - [facility] [[email or web address]] 1 .2.840.114 [id number] Univers 08:48:25 09:48:25 Only Deborah Macario 350.1.13.10 ity of [place].2.[place] [phone] Il dical nal 059 [address] Building 2020-07-18 2020-07-18 Outpatient [facility] [id number] Univers 09:00:00 09:00:00 ity of [facility] 2020-07-18 2020-07-18 Orders Doctor CASILLAS 1.2.840.114 [id number] Univers 00:00:00 00:00:00 Only Unassigned, DEXTER 350.1.13.10 ity of [place] [facility] 4.2.7.2.686 Jethro as [phone] [facility] [address] 2020-06-25 2020-06-25 Transition [place] 1.2.840.114 [id number] Univers 00:00:00 00:00:00 of Care Marley Richey 350.1.13.10 it y of [place].2.[place] [phone] [facility] [address] 2020-06-22 2020-06-23 Emergency Mino Shahid [facility] [[email or web address]] 1.2.840. 114 [id number] Univers 12:07:00 14:40:00 Anahy Owen 350.1.13.[address] [place] [phone] [facility] 081 [address] 2020-06-12 2020-06-12 Orders Doctor SONJA 1.2.840.114 [id number] Univers 00:00:00 00:00:00 Only Unassigned, DEXTER 350.1.13.10 ity of [place] [facility] 4.2.7.2.686 Jethro as [phone] [facility] [address] 2020-03-19 2020-03-19 Orders Doctor SONJA 1.2.840.114 [id number] Univers 00:00:00 00:00:00 Only Unassigned, DEXTER 350.1.13.10 ity of [place] [facility] 4.2.7.2.686 Jethro as [phone] [address] 2020-03-19 2020-03-19 Orders Doctor CASILLAS 1.2.840.114 [id number] 00:00:00 00:00:00 Only Unassigned, DEXTER 350.1.13.10 [place] [facility] 4.2.7.2.686 [phone] [facility] 2020-02-28 2020-02-28 Transition [place] 1.2.840.114 [id number] Univers 00:00:00 00:00:00 of Care Marley Richey 350.1.13.10 it y of [place] 4.2.7.2.686 [place] [phone] [facility] [address] 2020-02-28 2020-02-28 Transition [place] 1.2.840.114 [id number] 00:00:00 00:00:00 of Care Marley Richey 350.1.13.10 [place] [phone] [facility] 2020-02-23 2020-02-27 Inpatient U SARAH MESALAS [facility] [id number] Univers 21:57:28 16:56:00 TIANA ity of [facility] 2020-02-23 2020-02-27 [facility] Magalys Smith 1.2.010.138 [id number] Univers 21:57:28 16:56:00 Encounter Tiana Quiles 350.1.13.10 ity of [facility] 4.2.7.2.686 Jethro as [phone] [facility] [address] 2020-02-23 2020-02-27 [facility] Magalys Smith 1.2.912.406 [id number] 21:57:28 16:56:00 Encounter Tiana Quiles 350.1.13.[address]686 [phone] [facility] 2020-01-31 2020-02-02 Inpatient X BRAYDEN [facility] [id number] Univers 13:56:16 12:50:00 ANAHY ity [facility] 2020-01-31 2020-02-[address] [facility] 1.2.840. 114 [id number] [facility] 13:56:16 12:50:00 Encounter BraydenAnahy 350.1.13.[address] 4.2.7.2.686 [facility] [phone] [facility] [address] [place] [address] 2020-01-31 2020-02-02 [email or web address] 1.2.840. 114 [id number] 13:56:16 12:50:00 Encounter Brayden Anahy Taty[address] 4.2.7.2.686 [place] [phone] [facility] 2020-01-31 2020-01-31 Orders Doctor SONJA 1.2.840.114 [id number] Univers 00:00:00 00:00:00 Only Unassigned, DEXTER 350.1.13.10 ity of [place] [facility] 4.2.7.2.686 Jethro as [phone] [facility] [address] 2020-01-31 2020-01-31 Orders Doctor SONJA 1.2.840.114 [id number] 00:00:00 00:00:00 Only Unassigned, DEXTER 350.1.13.10 [place] [facility] 4.2.7.2.686 [id number] 009 Results Test Description Test Time Test [...] See_Comment [Au tomated message] The system which ge nerated this [...] 34.1 g/dL 31.6-35.1 RDW-SD (test code = 67618-9) 37.4 fL 39.0-49.9 L RDW-CV (test code = 788-0) 12.5 % 12.0-15.5 PLT (test code = 777-3) See_Comment [Au tomated message] The system which ge nerated this result transmit noreen reference range: 166 - 35 8 10*3/?L. The reference range was not used to interpret th is result as normal/abnormal . MPV (test code = 27312-6) 10.5 fL 9.5-12.9 NRBC/100 WBC (test code = See_Comment [ Automated message] The 0657865065) system which ge nerated this result transmit noreen reference range: 0.0 - 10 .0 /100 WBCs. The reference r daniela was not used to interpr et this result as normal/abnor mal. NRBC x10^3 (test code = See_Comment [Au tomated message] The 4239112116) system which ge nerated this result transmit noreen reference range: 10*3/?L. The reference range was not u sed to interpret this result as normal/abnormal . GRAN MAT (NEUT) % (test code 55.4 % = 770-8) IMM GRAN % (test code = 0.60 % 4850319849) LYMPH % (test code = 736-9) 36.2 % MONO % (test code = 5905-5) 6.0 % EOS % (test code = 713-8) 1.2 % BASO % (test code = 706-2) 0.6 % GRAN MAT x10^3(ANC) (test 7.91 10*3/uL 1.88-7.09 H code = 5018073440) IMM GRAN x10^3 (test code = 0.08 10*3/uL 0.00-0.06 H 9418941170) LYMPH x10^3 (test code = 5.16 10*3/uL 1.32-3.29 H 731-0) MONO x10^3 (test code = 0.86 10*3/uL 0.33-0.92 742-7) EOS x10^3 (test code = 0.17 10*3/uL 0.03-0.39 711-2) BASO x10^3 (test code = 0.08 10*3/uL 0.01-0.07 H 704-7) Lab Interpretation (test Abnormal code = 88010-1) [facility]. METABOLIC PANEL (91090)2022-09-20 01:13:21 Test Item Value Reference Range Interpretation Comments NA (test code = 138 mmol/L 135-145 0343688122) K (test code = 3.6 mmol/L 3.5-5.0 0099113187) CL (test code = 104 mmol/L 98-108 5187583829) CO2 TOTAL (test code = 19 mmol/L 23-31 L 8382754896) AGAP (test code = 2-16 9670706808) BUN (test code = 12 mg/dL 7-23 2898444362) GLUCOSE (test code = 131 mg/dL 70-110 H 6646471486) CREATININE (test code = 0.56 mg/dL 0.50-1.04 8473161973) TOTAL BILI (test code = 0.5 mg/dL 0.1-1.2 7642329381) CALCIUM (test code = 9.4 mg/dL 8.6-10.6 5710235148) T PROTEIN (test code = 7.8 g/dL 6.3-8.2 8196781772) ALBUMIN (test code = 4.8 g/dL 3.5-5.0 5973606764) ALK PHOS (test code = 67 U/L 34-122 9442416131) ALTv (test code = 29 U/L 5-35 1742-6) AST(SGOT) (test code = 32 U/L 13-40 0392257067) eGFR (test code = mL/min/1.73m2 9363969655) JESSICA (test code = JESSICA) Association of [...] tests). Lab Interpretation Abnormal (test code = 83383-1) [facility] WITH [id number] 03:53:40 Test Item Value Reference Range Interpretation [...] (test code = 38.7 fL 39.0-49.9 L 83258-8) RDW-CV (test code = 12.6 % 12.0-15.5 788-0) PLT (test code = See_Comment [Automated 777-3) message] The sy stem which generated this result transmitted reference range : 166 - 358 10*3/ ?L. The reference r daniela was not used to interpret this result as normal/abnormal . MPV (test code = 9.2 fL 9.5-12.9 L 14256-2) NRBC/100 WBC (test See_Comment [Automat ed code = 2675298688) message] The system which generated this result transmitted reference range : 0.0 - 10.0 /100 WBCs. The refer ence range was not u sed to interpret th is result as normal/abnormal . NRBC x10^3 (test code See_Comment [Auto mated = 4513157535) message] The s ystem which generated this result transmitted reference range : 10*3/?L. The reference range was not used to interpret this result as normal/abnormal . GRAN MAT (NEUT) % 58.7 % (test code = 770-8) IMM GRAN % (test code 0.40 % = 7595226540) LYMPH % (test code = 32.5 % 736-9) MONO % (test code = 6.4 % 5905-5) EOS % (test code = 1.2 % 713-8) BASO % (test code = 0.8 % 706-2) GRAN MAT x10^3(ANC) 7.96 10*3/uL 1.88-7.09 H (test code = 6375563992) IMM GRAN x10^3 (test 0.05 10*3/uL 0.00-0.06 code = 0003901016) LYMPH x10^3 (test code 4.40 10*3/uL 1.32-3.29 H = 731-0) MONO x10^3 (test code 0.87 10*3/uL 0.33-0.92 = 742-7) EOS x10^3 (test code = 0.16 10*3/uL 0.03-0.39 711-2) BASO x10^3 (test code 0.11 10*3/uL 0.01-0.07 H = 704-7) REACT LYMPHS (test Rare code = 0753074709) Lab Interpretation Abnormal (test code = 21830-1) [facility]28 Test Item Value Reference Range Interpretation Comments MAGNESIUM (test code = 2510263065) 1.7 mg/dL 1.7-2.4 Lab Interpretation (test code = Normal 58909-6) [facility]OL[facility] PAN[facility] (62331)2022-08-29 03:31:08 Test Item Value Reference Range Interpretation Comments NA (test code = 139 mmol/L 135-145 2186141018) K (test code = 4.4 mmol/L 3.5-5.0 9031614027) CL (test code = 109 mmol/L 98-108 H 4821256025) CO2 TOTAL (test code = 20 mmol/L 23-31 L 1569095113) AGAP (test code = 2-16 5529877601) BUN (test code = 10 mg/dL 7-23 9710296197) GLUCOSE (test code = 134 mg/dL 70-110 H 7345263488) CREATININE (test code = 0.54 mg/dL 0.50-1.04 9296879251) TOTAL BILI (test code = 0.3 mg/dL 0.1-1.7 9326624646) CALCIUM (test code = 9.0 mg/dL 8.6-10.6 9370893778) T PROTEIN (test code = 7.3 g/dL 6.3-8.2 5841435042) ALBUMIN (test code = 4.6 g/dL 3.5-5.0 6709252384) ALK PHOS (test code = 54 U/L 34-122 8047552969) ALTv (test code = 21 U/L 5-35 1742-6) AST(SGOT) (test code = 21 U/L 13-40 7732742211) eGFR (test code = mL/min/1.73m2 4568042198) JESSICA (test code = JESSICA) Association of [...] tests). Lab Interpretation Abnormal (test code = 69133-7) [facility]22[facility]24 03:30:48 Test Item Value Reference Range Interpretation Comments LIPASE (test code = 7165227424) 205 U/L 0-220 Lab Interpretation (test code = Normal 50468-7) [facility] Whole Urhaz3473-26-26 18:41:37 Test Item Value Reference Range Interpretation Comments LACTIC ACID (test code = 3.55 mmol/L 0.50-2.20 H 8237835906) Lab Interpretation (test code = Abnormal 86498-7) [facility], [id number] 20:37:15 Test Item Value Reference Range Interpretation Comments PREG SERUM (test code Negative = 5427418553) JESSICA (test code = JESSICA) Less than 10 IU/L. ?If low titer or ectopic is suspected, resubmit specimen in 48-72 hours. [facility] [facility] ([id number])2022-08-14 20:27:36 Test Item Value Reference Range Interpretation Comments NA (test code = 140 mmol/L 135-145 4720679019) K (test code = 2.8 mmol/L 3.5-5.0 LL 5882650716) CL (test code = 106 mmol/L 98-108 0317196956) CO2 TOTAL (test code = 13 mmol/L 23-31 L 0278940779) AGAP (test code = 2-16 H 0481963453) BUN (test code = 7 mg/dL 7-23 9481040676) GLUCOSE (test code = 181 mg/dL 70-110 H 0971228004) CREATININE (test code = 0.58 mg/dL 0.50-1.04 4659345635) TOTAL BILI (test code = 0.5 mg/dL 0.1-1.0 4549983421) CALCIUM (test code = 9.5 mg/dL 8.6-10.6 5848564576) T PROTEIN (test code = 8.1 g/dL 6.3-8.2 2594896201) ALBUMIN (test code = 5.1 g/dL 3.5-5.0 H 0186862740) ALK PHOS (test code = 76 U/L 34-122 0918687747) ALTv (test code = 34 U/L 5-35 1742-6) AST(SGOT) (test code = 24 U/L 13-40 4241859017) eGFR (test code = mL/min/1.73m2 6738161966) JESSICA (test code = JESSICA) Association of [...] tests). Lab Interpretation Abnormal (test code = 27685-6) [facility] [id number] 20:10:31 Test Item Value Reference Range Interpretation Comments APTT Patient (test See_Comment [Automat ed code = 3173-2) message] The system which generated this result transmitted reference range : 23 - 38 Seconds . The reference range was not used to interpr et this result as normal/abnormal . JESSICA (test code = JESSICA) The [email or web address]] patient population mean normal value for aPTT is 30 seconds. Lab Interpretation Normal (test code = 17310-1) [facility] / [id number] 20:08:27 Test Item Value Reference Range Interpretation [...] tions. Lab Interpretation (test Normal code = 05790-1) [facility] WITH [id number] 20:00:28 Test Item Value Reference Range Interpretation Comments WBC (test code = See_Comment H [Automated 8190-2) message] The sy stem which generated this [...] (test code = 36.1 fL 39.0-49.9 L 25326-2) RDW-CV (test code = 12.2 % 12.0-15.5 788-0) PLT (test code = See_Comment H [Automated 777-3) message] The sy stem which generated this result transmitted reference range : 166 - 358 10*3/ ?L. The reference r daniela was not used to interpret this result as normal/abnormal . MPV (test code = 9.7 fL 9.5-12.9 35060-7) NRBC/100 WBC (test See_Comment [Automat ed code = 7067373571) message] The system which generated this result transmitted reference range : 0.0 - 10.0 /100 WBCs. The refer ence range was not u sed to interpret th is result as normal/abnormal . NRBC x10^3 (test code See_Comment [Auto mated = 9885461443) message] The s ystem which generated this result transmitted reference range : 10*3/?L. The reference range was not used to interpret this result as normal/abnormal . GRAN MAT (NEUT) % 67.0 % (test code = 770-8) IMM GRAN % (test code 0.30 % = 3286256886) LYMPH % (test code = 28.0 % 736-9) MONO % (test code = 4.1 % 5905-5) EOS % (test code = 0.2 % 713-8) BASO % (test code = 0.4 % 706-2) GRAN MAT x10^3(ANC) 8.68 10*3/uL 1.88-7.09 H (test code = 2544054966) IMM GRAN x10^3 (test 0.04 10*3/uL 0.00-0.06 code = 6197415781) LYMPH x10^3 (test code 3.62 10*3/uL 1.32-3.29 H = 731-0) MONO x10^3 (test code 0.53 10*3/uL 0.33-0.92 = 742-7) EOS x10^3 (test code = 0.03 10*3/uL 0.03-0.39 711-2) BASO x10^3 (test code 0.05 10*3/uL 0.01-0.07 = 704-7) Lab Interpretation Abnormal (test code = 47785-3) [facility] Whole [id number] 19:58:01 Test Item Value Reference Range Interpretation Comments LACTIC ACID (test code = 6.64 mmol/L 0.50-2.20 H 6864482595) Lab Interpretation (test code = Abnormal 49261-7) [facility]"
[2023-05-22] MEDS ORDERED: DIPHENHYDRAMINE 50 MG/ML VIAL ONE (17:13)
[2023-05-22] MEDS ORDERED: IPRATROPIUM BROM 0.5MG/2.5ML ONE (17:13)
[2023-05-22] MEDS ORDERED: METHYLPREDNISOLONE 125 MG INJ ONE (17:13)
[2023-05-22] MEDS ORDERED: LEVALBUTEROL 1.25 MG/3 ML NEB ONE (17:13)
[2023-05-22] MEDS ORDERED: FAMOTIDINE 20 MG/2 ML VIAL IV ONE (17:13)
[2023-05-22] MEDS ORDERED: NA CHLORIDE 0.9% 1,000 ML ONE ×2 (17:13→18:25)
[2023-05-22 17:22] LABS: Absolute Lymphocytes (CBC) 4.7 K/uL (0.7-4.9); Hematocrit 36.3 % (36.0-45.0); Lymphocytes % 34.1 % (15.3-44.8); MPV 8.5 fL (7.6-11.3); Platelets 378 thou/uL (152-406); Protime INR 1.06; RBC Red Blood Cell Count 4.32 M/uL (3.86-4.86)
[2023-05-22] MEDS ORDERED: predniSONE 20 MG TAB ONE (17:30)
--- NOTE | 2023-05-22 17:30 | RAD REPORT ---
EXAM DESCRIPTION: Margy Single View05/22/2023 5:23 pm CLINICAL HISTORY: Cough COMPARISON: February 2023 FINDINGS: The lungs appear clear of acute infiltrate. The heart is normal size IMPRESSION: No acute abnormalities displayed
[2023-05-22 17:34] LABS: Albumin 4.6 g/dL (3.4-5.0); Bilirubin Direct 0.1 mg/dL (0-0.2); Bilirubin Indirect, Calculated 0.2 mg/dL (0.2-0.8); Bilirubin Total 0.3 mg/dL (0.2-1.0); Magnesium 1.4 mg/dL (1.6-2.4); Potassium 3.2 mEq/L (3.5-5.1); Protein, Total 7.6 g/dL (6.4-8.2); Troponin High Sensitivity 4.2 pg/mL (<58.9)
[2023-05-22 17:35] LABS: SARS-CoV-2 Antigen Rapid Res Negative (Negative)
[2023-05-22] MEDS ORDERED: Magnesium Sulfate 2gm IVPB 2 G/50 ML BAG IV ONE (18:25)
[2023-05-22] MEDS ORDERED: POTASSIUM 25 MEQ EFFERV TAB ONE (18:25)
[2023-05-22] MEDS ORDERED: AZITHROMYCIN 250 MG TAB ONE (18:37)
--- NOTE | 2023-05-22 19:18 | EDPHYS ---
Physician Documentation [facility] Name: Sowmya Juarez Age: 38 yrs Sex: Female : 1985 Arrival Date: 05/22/2023 Time: 16:53 Bed 3 Private MD: ED Physician Todd Peña HPI: 05/22 17:01 This 38 yrs old Female presents to ER via EMS with complaints of Shortness Of lucrecia Breath, Allergic Reaction. 17:01 The patient has shortness of breath at rest, with light activity. Onset: The lucrecia symptoms/episode began/occurred just prior to arrival, this morning. Duration: The symptoms are continuous, and are steadily getting worse. The patient's shortness of breath is aggravated by coughing, supine position. Associated signs and symptoms: Pertinent positives: non-productive cough. Severity of symptoms: At their worst the symptoms were mild moderate in the emergency department the symptoms are unchanged. The patient has experienced similar episodes in the past, multiple times. Historical: - Allergies: 16:58 Compazine; kc6 - PMHx: 16:58 Bipolar disorder; Crohn's; Hyperlipidemia; Hypertension; Mass Cell Activation Syndrome; kc6 Migraines; - PSHx: 16:58 Appendectomy; section; Cholecystectomy; Total abdominal hysterectomy; kc6 - Immunization history:: Adult Immunizations up to date. - Social history:: Smoking status: Patient denies any tobacco usage or history of. ROS: 17:03 Constitutional: Negative for fever, chills, and weight loss, Eyes: Negative for injury, lucrecia pain, redness, and discharge, ENT: Negative for injury, pain, and discharge, Neck: Negative for injury, pain, and swelling, Cardiovascular: Negative for chest pain, palpitations, and edema, Abdomen/GI: Negative for abdominal pain, nausea, vomiting, diarrhea, and constipation, Back: Negative for injury and pain, : Negative for injury, bleeding, discharge, and swelling, MS/Extremity: Negative for injury and deformity, Skin: Negative for injury, rash, and discoloration, Neuro: Negative for headache, weakness, numbness, tingling, and seizure, Psych: Negative for depression, anxiety, suicide ideation, homicidal ideation, and hallucinations, Allergy/Immunology: Negative for hives, rash, and allergies, Endocrine: Negative for neck swelling, polydipsia, polyuria, polyphagia, and marked weight changes, Hematologic/Lymphatic: Negative for swollen nodes, abnormal bleeding, and unusual bruising. 17:03 Respiratory: Positive for cough, "sounds productive". Exam: 17:03 Constitutional: This is a well developed, well nourished patient who is awake, alert, lucrecia and in no acute distress. Head/Face: Normocephalic, atraumatic. Eyes: Pupils equal round and reactive to light, extra-ocular motions intact. Lids and lashes normal. Conjunctiva and sclera are non-icteric and not injected. Cornea within normal limits. Periorbital areas with no swelling, redness, or edema. ENT: Nares patent. No nasal discharge, no septal abnormalities noted. Tympanic membranes are normal and external auditory canals are clear. Oropharynx with no redness, swelling, or masses, exudates, or evidence of obstruction, uvula midline. Mucous membranes moist. Neck: Trachea midline, no thyromegaly or masses palpated, and no cervical lymphadenopathy. Supple, full range of motion without nuchal rigidity, or vertebral point tenderness. No Meningismus. Chest/axilla: Normal chest wall appearance and motion. Nontender with no deformity. No lesions are appreciated. Abdomen/GI: Soft, non-tender, with normal bowel sounds. No distension or tympany. No guarding or rebound. No evidence of tenderness throughout. Back: No spinal tenderness. No costovertebral tenderness. Full range of motion. Skin: Warm, dry with normal turgor. Normal color with no rashes, no lesions, and no evidence of cellulitis. MS/ Extremity: Pulses equal, no cyanosis. Neurovascular intact. Full, normal range of motion. Neuro: Awake and alert, GCS 15, oriented to person, place, time, and situation. Cranial nerves II-XII grossly intact. Motor strength 5/5 in all extremities. Sensory grossly intact. Cerebellar exam normal. Normal gait. Psych: Awake, alert, with orientation to person, place and time. Behavior, mood, and affect are within normal limits. 17:03 Cardiovascular: Rate: tachycardic, actual rate is 156 bpm, Rhythm: regular, Pulses: Pulses are 4+ in bilateral radial, brachial, femoral, popliteal, posterior tibial and and dorsalis pedis arteries.. Heart sounds: normal, normal S1and S2, no S3 or S4, no murmur, no rub, no gallop, Edema: is not appreciated, JVD: is not appreciated. 17:03 Musculoskeletal/extremity: DVT Exam: No signs of deep vein thrombosis. no pain, no swelling, no tenderness, negative Homans' sign noted on exam, no appreciated bluish discoloration, no erythema, no increased warmth. 17:23 ECG was reviewed by the Attending Physician. [facility] Vital Signs: 16:56 BP 157 / 74; Pulse 156; Resp 30 S; Temp 98.5(O); Pulse Ox 100% on Non-rebreather mask; kc6 Weight 70.76 kg (R); Height 5 ft. 3 in. (R); 17:27 BP 130 / 64; Pulse 103; Resp 23 S; Pulse Ox 100% on Non-rebreather mask; kc6 17:37 BP 127 / 64; Pulse 94; Resp 25 S; Pulse Ox 94% on R/A; kc6 18:31 BP 136 / 79; Pulse 100; Resp 20 S; Pulse Ox 97% on R/A; kc6 19:28 BP 117 / 73; Pulse 97; Resp 18; Temp 97; Pulse Ox 98% ; Pain 0/10; kb3 16:56 Body Mass Index 27.63 (70.76 kg, 160.02 cm) kc6 19:28 Pain Scale: Adult kb3 MDM: 16:56 Patient medically screened. [facility] 17:05 Differential diagnosis: Anemia Anxiety Reaction Bronchitis CHF exacerbation, acute lucrecia asthma, exercise-induced asthma, reactive airway, CHF, anaphylaxis, URI, Myocardial Infarction pulmonary edema, reactive airway disease, Unstable Angina. Antibiotic administration: Not indicated, the patient does not have an appreciated infiltrate. Differential Diagnosis: Obstructed Airway Bronchitis Influenza Upper Respiratory Infection Sinusitis Pharyngitis Asthma Exacerbation Viral Syndrome Pneumonia. Immunization status:. Data reviewed: vital signs, nurses notes, lab test result(s), EKG, radiologic studies, CT scan, plain films. Consideration of Admission/Observation Patient was admitted/placed on observation. Escalation of care including admission/observation considered. I considered the following discharge prescriptions or medication management in the emergency department Medications were administered in the Emergency Department. See MAR. Independent interpretation of the following test(s) in the Emergency Department EKG: See my EKG interpretation above. Test considered but Not performed: CT: ct chest ro pe. Care significantly affected by the following chronic conditions: Hypertension, bipolar do, crohns, mast cell . 05/22 16:59 Order name: Basic Metabolic Panel; Complete Time: 18:09 [facility] 05/22 16:59 Order name: CBC with Diff; Complete Time: 18:09 [facility] 05/22 16:59 Order name: LFT's; Complete Time: 18:09 [facility] 05/22 16:59 Order name: Magnesium; Complete Time: 18:09 [facility] 05/22 16:59 Order name: NT PRO-BNP; Complete Time: 18:09 [facility] 05/22 16:59 Order name: PT-INR; Complete Time: 18:09 [facility] 05/22 16:59 Order name: Troponin HS; Complete Time: 18:09 [facility] 05/22 17:00 Order name: SARS RAPID; Complete Time: 18:09 [facility] 05/22 17:00 Order name: Flu; Complete Time: 18:09 [facility] 05/22 16:59 Order name: XRAY Chest (1 view); Complete Time: 18:09 [facility] 05/22 16:59 Order name: EKG; Complete Time: 17:00 [facility] 05/22 16:59 Order name: Cardiac monitoring; Complete Time: 16:59 [facility] 05/22 16:59 Order name: EKG - Nurse/Tech; Complete Time: 17:17 [facility] 05/22 16:59 Order name: IV Saline Lock; Complete Time: 16:59 [facility] 05/22 16:59 Order name: Labs collected and sent; Complete Time: 17:17 [facility] 05/22 16:59 Order name: O2 Per Protocol; Complete Time: 16:59 [facility] 05/22 16:59 Order name: O2 Sat Monitoring; Complete Time: 16:59 [facility] EC: Rate is 124 beats/min. Rhythm is regular. QRS [place] is Normal. CA interval is normal. QT lucrecia interval is normal. No Q waves. T waves are Normal. No ST changes noted. Clinical impression: Sinus tachycardia and No evidence of ischemia. Interpreted by me. Reviewed by me. Administered Medications: 17:17 Drug: NS 0.9% IV 1000 ml Route: IV; Rate: 1 bolus; Site: left antecubital; kc6 17:17 Drug: MethylPrednisoLONE IVP 125 mg Route: IVP; Site: left antecubital; kc6 18:10 Follow up: Response: No adverse reaction kc6 17:17 Drug: diphenhydrAMINE IVP 50 mg Route: IVP; Site: left antecubital; kc6 18:10 Follow up: Response: No adverse reaction kc6 17:17 Drug: Famotidine IVP 40 mg Route: IVP; Site: left antecubital; kc6 18:10 Follow up: Response: No adverse reaction kc6 17:17 Drug: Levalbuterol Inhalation 3.75 mg Route: Inhalation; kc6 18:10 Follow up: Response: No adverse reaction; Wheezing diminished kc6 17:17 Drug: Ipratropium Inhalation Aerosol 0.5 mg Route: Inhalation; kc6 18:11 Follow up: Response: No adverse reaction; Wheezing diminished kc6 17:24 Drug: predniSONE PO 60 mg Route: PO; kc6 18:11 Follow up: Response: No adverse reaction kc6 19:34 Follow up: Response: No adverse reaction kb3 18:23 Drug: Potassium PO Effervescent Tablet 50 mEq Route: PO; kc6 18:51 Follow up: Response: No adverse reaction kc6 19:34 Follow up: Response: No adverse reaction kb3 18:23 Drug: Magnesium Sulfate IVPB 2 grams Route: IVPB; Infused Over: 1 hrs; Site: left kc6 antecubital; 19:33 Follow up: Response: No adverse reaction; IV Status: Completed infusion; IV Intake: [id number] 18:23 Drug: NS 0.9% IV 1000 ml Route: IV; Rate: 1 bolus; Site: left antecubital; kc6 19:33 Follow up: Response: No adverse reaction; IV Status: Completed infusion; IV Intake: kb3 1000ml 18:28 Drug: AZITHromycin PO 500 mg Route: PO; kc6 19:33 Follow up: Response: No adverse reaction kb3 Disposition Summary: 05/22/23 19:17 Discharge Ordered Location: Home lucrecia Problem: new lucrecia Symptoms: have improved lucrecia Condition: Stable lucrecia Diagnosis - Mast cell activation, unspecified lucrecia - Mild persistent asthma lucrecia - Bipolar disorder, unspecified lucrecia - Hypokalemia lucrecia - Hypomagnesemia lucrecia Followup: lucrecia - With: Private Physician - When: 2 - 3 days - Reason: Recheck today's complaints, Continuance of care, Re-evaluation by your physician Followup: lucrecia - With: - When: 2 - 3 days - Reason: Recheck today's complaints, Re-evaluation by your physician Discharge Instructions: - Discharge Summary Sheet lucrecia - Asthma, Adult lucrecia - Potassium Content of Foods lucrecia - Hypomagnesemia lucrecia - Asthma, Adult, Klqn-[id number]-Lnik lucrecia - Hypokalemia lucrecia - Supporting Someone With Bipolar Disorder [facility] Forms: - Medication Reconciliation Form [facility] - Thank You Letter lucrecia - Antibiotic Education lucrecia - Prescription Opioid Use lucrecia - Patient Portal Instructions [facility] - Leadership Thank You Letter [facility] Prescriptions: - EpiPen 0.3 mg/0.3 mL Injection Auto-Injector - administer 0.3 milliliter by INTRAMUSCULAR route once; 2 unit; Refills: 0, [facility] Product Selection Permitted - albuterol sulfate 90 mcg/actuation Inhalation HFA Aerosol Inhaler - inhale 2 inhalation by INHALATION route every 4-6 hours as needed for shortness lucrecia of breath or wheezing; 1 unit; Refills: 0, Product Selection Permitted - Benadryl 25 mg Oral Capsule - take 2 capsule by ORAL route every 6 hours As needed; 60 tablet; Refills: 0, [facility] Product Selection Permitted - Pepcid 20 mg Oral Tablet - take 1 tablet by ORAL route every 12 hours for 21 days; 42 tablet; Refills: 0, [facility] Product Selection Permitted - Singulair 10 mg Oral Tablet - take 1 tablet by ORAL route At bedtime; 30 tablet; Refills: 0, Product [facility] Selection Permitted - Albuterol Sulfate 2.5 mg /3 mL (0.083 %) Inhalation Solution for Nebulization - inhale 1 unit by NEBULIZATION route every 8 hours As needed; 25 unit; Refills: lucrecia 0, Product Selection Permitted - Zithromax Z-Rogelio 250 mg Oral Tablet - take 1 tablet by ORAL route as directed for 5 days Day 1 - take two (2) tablets [facility] one time. Day 2, 3, 4 , 5 take one (1) tablet once daily.; 6 tablet; Refills: 0, Product Selection Permitted - Prednisone 20 mg Oral Tablet - take 2 tablets by ORAL route once daily for 5 days; 10 tablet; Refills: 0, [facility] Product Selection Permitted Signatures: Dispatcher [employer] Todd Casiano MD MD cha Campbell, Kaitlyn RN RN kc6 Sneha Temple RN kb3
--- NOTE | 2023-05-22 19:18 | ER ---
Nurse's Notes [facility] Name: Sowmya Juarez Age: 38 yrs Sex: Female : 1985 Arrival Date: 05/22/2023 Time: 16:53 Bed 3 Private MD: Diagnosis: Mast cell activation, unspecified;Mild persistent asthma;Bipolar disorder, unspecified;Hypokalemia;Hypomagnesemia Presentation: 05/22 16:56 Chief complaint: EMS states: they were toned out for sudden onset breathing difficulty. kc6 pts has MCAS. pt was 73% on RA for EMS. pt is now 100% on NRB. 0.9 of epi given en route. BGL en route 197. Coronavirus screen: At this time, the client does not indicate any symptoms associated with coronavirus-19. Ebola Screen: No symptoms or risks identified at this time. Initial Sepsis Screen: Does the patient meet any 2 criteria? RR > 20 per min. HR > 90 bpm. Does the patient have a suspected source of infection? No. Patient's initial sepsis screen is negative. Risk Assessment: Do you want to hurt yourself or someone else? Patient reports no desire to harm self or others. Onset of symptoms was May 22, 2023. 16:56 Method Of Arrival: EMS: [facility] 16:56 Acuity: KALYN 2 [facility] Triage Assessment: 16:58 General: Appears distressed, uncomfortable, Behavior is cooperative, appropriate for kc age, anxious. Pain: Denies pain. EENT: No signs and/or symptoms were reported regarding the EENT system. Neuro: Level of Consciousness is awake, alert, obeys commands, Oriented to person, place, time, situation, Appropriate for age. Cardiovascular: Denies chest pain, Heart tones S1 S2 present Capillary refill < 3 seconds Rhythm is sinus tachycardia. Respiratory: Reports shortness of breath at rest cough that is dry, Airway is patent Trachea midline Respiratory effort is even, pursed lip, Respiratory pattern is symmetrical, hyperventilation tachypnea Breath sounds with wheezes bilaterally. Onset: The symptoms/episode began/occurred just prior to arrival, the patient has moderate shortness of breath. GI: No signs and/or symptoms were reported involving the gastrointestinal system. : No signs and/or symptoms were reported regarding the genitourinary system. Derm: No signs and/or symptoms reported regarding the dermatologic system. Skin is intact, is healthy with good turgor, Skin is dry, Skin is cyanotic noted to the finger tips and toes Skin temperature is warm. Musculoskeletal: No signs and/or symptoms reported regarding the musculoskeletal system. Circulation, motion, and sensation intact. Capillary refill < 3 seconds, Range of motion: intact in all extremities. Historical: - Allergies: 16:58 Compazine; kc6 - PMHx: 16:58 Bipolar disorder; Crohn's; Hyperlipidemia; Hypertension; Mass Cell Activation Syndrome; kc6 Migraines; - PSHx: 16:58 Appendectomy; section; Cholecystectomy; Total abdominal hysterectomy; kc6 - Immunization history:: Adult Immunizations up to date. - Social history:: Smoking status: Patient denies any tobacco usage or history of. Screenin:58 [facility] ED Fall Risk Assessment (Adult) History of falling in the last 3 months, kc6 including since admission No falls in past 3 months (0 pts) Confusion or Disorientation No (0 pts) Intoxicated or Sedated No (0 pts) Impaired Gait No (0 pts) Mobility Assist Device Used No (0 pt) Altered Elimination No (0 pt) Score/Fall Risk Level 0 - 2 = Low Risk. Abuse screen: Denies threats or abuse. Denies injuries from another. Nutritional screening: No deficits noted. Tuberculosis screening: No symptoms or risk factors identified. Assessment: 16:58 Reassessment: please see triage assessment. kc6 17:27 Reassessment: Patient appears in no apparent distress at this time. Patient and/or kc6 family updated on plan of care and expected duration. Pain level reassessed. Patient is alert, oriented x 3, equal unlabored respirations, skin warm/dry/pink. Patient states feeling better. Patient states symptoms have improved. 18:27 Reassessment: Patient appears in no apparent distress at this time. No changes from kc6 previously documented assessment. Patient and/or family updated on plan of care and expected duration. Pain level reassessed. Patient is alert, oriented x 3, equal unlabored respirations, skin warm/dry/pink. Patient denies pain at this time. Patient states feeling better. Patient states symptoms have improved. 19:30 Reassessment: Patient appears in no apparent distress at this time. No changes from jw7 previously documented assessment. Patient and/or family updated on plan of care and expected duration. Pain level reassessed. Patient is alert, oriented x 3, equal unlabored respirations, skin warm/dry/pink. Vital Signs: 16:56 BP 157 / 74; Pulse 156; Resp 30 S; Temp 98.5(O); Pulse Ox 100% on Non-rebreather mask; kc6 Weight 70.76 kg (R); Height 5 ft. 3 in. (R); 17:27 BP 130 / 64; Pulse 103; Resp 23 S; Pulse Ox 100% on Non-rebreather mask; kc6 17:37 BP 127 / 64; Pulse 94; Resp 25 S; Pulse Ox 94% on R/A; kc6 18:31 BP 136 / 79; Pulse 100; Resp 20 S; Pulse Ox 97% on R/A; kc6 19:28 BP 117 / 73; Pulse 97; Resp 18; Temp 97; Pulse Ox 98% ; Pain 0/10; kb3 16:56 Body Mass Index 27.63 (70.76 kg, 160.02 cm) kc6 19:28 Pain Scale: Adult kb3 ED Course: 16:56 Patient arrived in ED. lucrecia 16:56 Todd Peña MD is Attending Physician. lucrecia 16:56 Carmen Masters, BHAVIK is Primary Nurse. kc6 16:58 Triage completed. kc6 16:58 Arm band placed on. kc6 16:58 Inserted saline lock: 20 gauge in left antecubital area, using aseptic technique. Blood kc6 collected. Oxygen administration via non-rebreather mask. 16:59 Patient has correct armband on for positive identification. Bed in low position. Call kc6 light in reach. Side rails up X2. Adult w/ patient. Client placed on continuous cardiac and pulse oximetry monitoring. NIBP monitoring applied. [facility] [employer] on. 17:24 XRAY Chest (1 view) In Process Unspecified. EDMS 19:17 Benjamin Patel MD is Referral Physician. lucrecia 19:32 No provider procedures requiring assistance completed. IV discontinued, intact, kb3 bleeding controlled, No redness/swelling at site. Administered Medications: 17:17 Drug: NS 0.9% IV 1000 ml Route: IV; Rate: 1 bolus; Site: left antecubital; kc6 17:17 Drug: MethylPrednisoLONE IVP 125 mg Route: IVP; Site: left antecubital; kc6 18:10 Follow up: Response: No adverse reaction kc6 17:17 Drug: diphenhydrAMINE IVP 50 mg Route: IVP; Site: left antecubital; kc6 18:10 Follow up: Response: No adverse reaction kc6 17:17 Drug: Famotidine IVP 40 mg Route: IVP; Site: left antecubital; kc6 18:10 Follow up: Response: No adverse reaction kc6 17:17 Drug: Levalbuterol Inhalation 3.75 mg Route: Inhalation; kc6 18:10 Follow up: Response: No adverse reaction; Wheezing diminished kc6 17:17 Drug: Ipratropium Inhalation Aerosol 0.5 mg Route: Inhalation; kc6 18:11 Follow up: Response: No adverse reaction; Wheezing diminished kc6 17:24 Drug: predniSONE PO 60 mg Route: PO; kc6 18:11 Follow up: Response: No adverse reaction kc6 19:34 Follow up: Response: No adverse reaction kb3 18:23 Drug: Potassium PO Effervescent Tablet 50 mEq Route: PO; kc6 18:51 Follow up: Response: No adverse reaction kc6 19:34 Follow up: Response: No adverse reaction kb3 18:23 Drug: Magnesium Sulfate IVPB 2 grams Route: IVPB; Infused Over: 1 hrs; Site: left kc6 antecubital; 19:33 Follow up: Response: No adverse reaction; IV Status: Completed infusion; IV Intake: [id number] 18:23 Drug: NS 0.9% IV 1000 ml Route: IV; Rate: 1 bolus; Site: left antecubital; kc6 19:33 Follow up: Response: No adverse reaction; IV Status: Completed infusion; IV Intake: kb3 1000ml 18:28 Drug: AZITHromycin PO 500 mg Route: PO; kc6 19:33 Follow up: Response: No adverse reaction kb3 Medication: 19:32 VIS not applicable for this client. kb3 Intake: 19:33 IV: 1000ml; Total: 1000ml. kb3 19:33 IV: 50ml; Total: 1050ml. kb3 Outcome: 19:17 Discharge ordered by MD. singer 19:30 Discharged to home ambulatory. kb3 19:30 Condition: stable 19:30 Discharge instructions given to patient, family, Instructed on discharge instructions, follow up and referral plans. medication usage, Demonstrated understanding of instructions, follow-up care, medications, Prescriptions given X x8 19:32 Patient left the ED. kb3 Signatures: Dispatcher [employer] EDTodd Mar MD MD cha Waits, Jodi, RN RN jw7 Carmen Masters RN RN kc6 Sneha Temple RN RN kb3 Corrections: (The following items were deleted from the chart) 17:32 16:56 Chief complaint: EMS states: they were toned out for breathing difficulty. pts kc6 has MCAS. pt was 73% on RA upon EMS arrival. pt is now 100% on NRB. 0.9 of epi given. BGL en route 197 kc6 17:35 16:56 BP 157 / 74; Pulse 156bpm; Resp 24bpm; Spontaneous; Pulse Ox 100% Non-rebreather kc6 mask; 70.76 kg Reported; Height 5 ft. 3 in. Reported; BMI: 27.6; kc6 17:39 16:56 BP 157 / 74; Pulse 156bpm; Resp 24bpm; Spontaneous; Pulse Ox 100% Non-rebreather kc6 mask; Temp 98.5F Oral; 70.76 kg Reported; Height 5 ft. 3 in. Reported; BMI: 27.6; kc6 17:39 17:27 BP 130 / 64; Pulse 103bpm; Resp 20bpm; Spontaneous; Pulse Ox 100% Non-rebreather kc6 mask; kc6
[2023-05-22 19:43] VITALS: BP 117/73; TEMP 97; O2SAT 98
--- NOTE | 2023-05-24 19:08 | EKG ---
Test Date: 2023-05-22 Test Time: 17:15:02 Sander And Buffer: SNEHAL MEASUREMENT RESULTS: Intervals: Rate: 124 [place]: 160 QRSD: 76 QT: 412 QTc: 591 [place]: P: 84 [place]: 160 QRS: 75 T: 69 INTERPRETIVE STATEMENTS: Sinus tachycardia Junctional ST depression, probably normal Borderline ECG Compared to ECG 02/22/2023 09:53:47 No significant changes Electronically Signed On 05-24-23 19:05:25 CDT by Carlos Abrams
== END 2023-05-22 19:32 | disposition home or self-care (01) ==
LOC: ER 16:53
DX: D89.40 Mast cell activation, unspecified (principal); J45.30 Mild persistent asthma, uncomplicated; E87.6 Hypokalemia; E83.42 Hypomagnesemia; F31.9 Bipolar disorder, unspecified; Z20.822 Contact with and (suspected) exposure to COVID-19; Z88.1 Allergy status to other antibiotic agents
CPT/HCPCS: 96365; 93005; 85025; 80048; 36415; 83735; 85610; 80076; 84484; 83880; 87804 ×2; 71045; 96375; 99285; 87811; J7512; J3475; J1200; J7614; J7644; J2930; J7030 ×2

== ENCOUNTER → 2023-09-14 | Emergency (ER) | payer OTHER ==
--- OUTSIDE RECORDS SUMMARY | 2023-09-14 10:40 | XMS REPORT | Continuity of Care Document ---
Author Name Unknown Address [address] [place] [address] [facility] Address [address] [place] [address] Care Team Providers Care [employer] Flake Miller Name Role Phone [email or web address] Attending Clinician Becky friedman Doctor Unassigned, [place] Attending Clinician U jose Tello RN, Marley Attending Clinician Baldomero Carreno MD, Michael Wing Attending Clinician [phone] Annamaria Hines Attending Clinician [phone] Brayden BURKETT, Keegan Attending Clinician [phone] [email or web address] Admitting Clinician Becky Carreno MD, Michael Wing Admitting Clinician [phone] Keegan Owen MD Admitting Clinician [phone] Encounters Start Date/Time End Date/Time Encounter Type Admission Type Attending Clinicians Care Facility Care Department Encounter ID Source 2023-07-14 10:51:11 2023-07-14 10:51:11 Outpatient [facility] [id number] Terrence Campuzano 2023-07-03 00:00:00 2023-07-03 00:00:00 Outpatient [email or web address] [facility] [id number] [facility] 2023-05-28 09:22:17 2023-05-28 09:22:17 Outpatient [facility] [id number] Terrence Campuzano 2023-03-29 15:16:53 2023-03-29 15:16:53 Outpatient [facility] [id number] Terrence Campuzano 2023-02-03 11:00:28 2023-02-03 11:00:28 Outpatient [facility] [id number] Terrence Campuzano 2023-01-13 10:31:00 2023-01-13 10:31:00 Outpatient [facility] [id number] Terrence Campuzano 2020-03-19 00:00:00 2020-03-19 00:00:00 Orders Only Doctor Unassigned, [place] [facility] [id number] 2020-02-28 00:00:00 2020-02-28 00:00:00 Transition of Care [facility] [id number] 2020-02-23 21:57:28 2020-02-27 16:56:00 [facility] [id number] 2020-01-31 13:56:16 2020-02-02 12:50:00 Hospital Encounter Annamaria Cardenas [facility] [id number] 2020-01-31 00:00:00 2020-01-31 00:00:00 Orders Only Doctor Unassigned, [place] [facility] [id number]
--- NOTE | 2023-09-14 11:44 | RAD REPORT ---
EXAM DESCRIPTION: Margy Single View09/14/2023 11:37 am CLINICAL HISTORY: Shortness of breath COMPARISON: May 2023 FINDINGS: The lungs appear clear of acute infiltrate. The heart is mildly enlarged IMPRESSION: No acute abnormalities displayed
--- NOTE | 2023-09-14 14:01 | ER ---
Nurse's Notes [facility] Name: Sowmya Juarez Age: 38 yrs Sex: Female : 1985 Arrival Date: 09/14/2023 Time: 10:36 Bed 5 Private MD: Diagnosis: Other allergy, initial encounter;Respiratory disorder, unspecified Presentation: 09/14 10:40 Chief complaint: EMS states: "toned out for anaphylactic reaction from Massive Cell mb9 Degenerative disease. At 10 am pt started having swelling of throat, tongue, and difficulty breathing. Pt administered own epi pen at 1009. 20 g to left AC, administer Epi 0.3 mg x 2, 25 mg IM of Benadryl and 25 mg IV, 125 mg of Solu-Medrol, and Albuterol treatment.". Coronavirus screen: Vaccine status: Patient reports being unvaccinated. Ebola Screen: No symptoms or risks identified at this time. Initial Sepsis Screen: Does the patient meet any 2 criteria? No. Patient's initial sepsis screen is negative. Does the patient have a suspected source of infection? No. Patient's initial sepsis screen is negative. Risk Assessment: Do you want to hurt yourself or someone else? Patient reports no desire to harm self or others. Onset of symptoms was September 14, 2023. 10:40 Method Of Arrival: EMS: [facility] mb9 10:40 Acuity: KALYN 2 mb9 Triage Assessment: 10:45 General: Appears uncomfortable, Behavior is cooperative. Pain: Denies pain. EENT: Oral mb9 mucosa is moist. Throat is clear. Neuro: Viera Agitation-Sedation Scale (RASS): 0 - Alert and Calm Level of Consciousness is awake, alert, obeys commands, Oriented to person, place, time, situation, Appropriate for age. 10:45 Cardiovascular: Heart tones S1 S2 present Patient's skin is warm and dry. Rhythm is mb9 sinus tachycardia. Respiratory: Airway is patent Respiratory effort is even, unlabored, Respiratory pattern is regular, symmetrical, Breath sounds with wheezes bilaterally. GI: Abdomen is flat, non-distended, Bowel sounds present X 4 quads. Abd is soft and non tender X 4 quads. : No signs and/or symptoms were reported regarding the genitourinary system. Derm: Skin is pink, warm \\T\\ dry. Musculoskeletal: Range of motion: intact in all extremities. Historical: - Allergies: 10:44 Compazine; mb9 - Home Meds: :44 xolair injection 3X monthly [Active]; Singulair Oral [Active]; Risperdal Oral [Active]; mb9 Pepcid Oral [Active]; Metoprolol Tartrate Oral [Active]; Lamictal Oral [Active]; - PMHx: 10:44 Bipolar disorder; Mass Cell Activation Syndrome; Crohn's; Migraines; Hyperlipidemia; mb9 Hypertension; - PSHx: 10:44 Appendectomy; section; Cholecystectomy; Total abdominal hysterectomy; mb9 - Immunization history:: Adult Immunizations up to date. - Social history:: Smoking status: Patient denies any tobacco usage or history of. Screenin:46 [facility] ED Fall Risk Assessment (Adult) History of falling in the last 3 months, mb9 including since admission No falls in past 3 months (0 pts) Confusion or Disorientation No (0 pts) Intoxicated or Sedated No (0 pts) Impaired Gait No (0 pts) Mobility Assist Device Used No (0 pt) Altered Elimination No (0 pt) Score/Fall Risk Level 0 - 2 = Low Risk Oriented to surroundings, Maintained a safe environment, Educated pt \\T\\ family on fall prevention, incl call for assistance when getting out of bed. Abuse screen: Denies threats or abuse. Nutritional screening: No deficits noted. Tuberculosis screening: No symptoms or risk factors identified. Assessment: 10:46 Reassessment: see triage assessment. mb9 11:25 Reassessment: Patient appears in no apparent distress at this time. No changes from kc6 previously documented assessment. Patient and/or family updated on plan of care and expected duration. Pain level reassessed. Patient is alert, oriented x 3, equal unlabored respirations, skin warm/dry/pink. Patient states feeling better. Patient states symptoms have improved. 12:25 Reassessment: Patient and/or family updated on plan of care and expected duration. Pain mb9 level reassessed. Patient is alert, oriented x 3, equal unlabored respirations, skin warm/dry/pink. Patient states feeling better. Patient states symptoms have improved. 13:26 Reassessment: Patient and/or family updated on plan of care and expected duration. Pain mb9 level reassessed. Patient is alert, oriented x 3, equal unlabored respirations, skin warm/dry/pink. Patient states feeling better. Patient states symptoms have improved. 14:14 Reassessment: Patient and/or family updated on plan of care and expected duration. Pain mb9 level reassessed. Patient is alert, oriented x 3, equal unlabored respirations, skin warm/dry/pink. Patient states feeling better. Patient states symptoms have improved. Vital Signs: 10:40 BP 133 / 114; Pulse 114; Resp 18; Temp 98.2; Pulse Ox 100% on R/A; Weight 72.57 kg; mb9 Height 5 ft. 6 in. ; 10:52 BP 124 / 69; Pulse 87; Resp 18 S; Pulse Ox 100% on R/A; kc6 11:25 BP 109 / 61; Pulse 84; Resp 18 S; Pulse Ox 100% on R/A; kc6 13:00 BP 115 / 61; Pulse 81; Resp 18; Pulse Ox 96% on R/A; mb9 14:14 BP 108 / 74; Pulse 62; Resp 18; Pulse Ox 100% on R/A; mb9 10:40 Body Mass Index 25.82 (72.57 kg, 167.64 cm) mb9 ED Course: 10:40 Patient arrived in ED. mb9 10:43 Triage completed. mb9 10:44 Mirlande Moffett MD is Attending Physician. gb1 10:44 Arm band placed on. mb9 10:45 Karen Benson, BHAVIK is Primary Nurse. mb9 10:46 Placed in gown. Bed in low position. Call light in reach. Side rails up X 1. Client mb9 placed on continuous cardiac and pulse oximetry monitoring. NIBP monitoring applied. environmental monitoring technician on. Door closed. Noise minimized. Warm blanket given. 10:47 No provider procedures requiring assistance completed. mb9 10:53 Maintain EMS IV. Dressing intact. Good blood return noted. Site clean \\T\\ dry. Gauge \\T\\ sharon 6 site: 20G LAC. Patient maintains SpO2 saturation greater than 95% on room air. 11:39 Chest Single View In Process Unspecified. EDMS 14:15 IV discontinued, intact, bleeding controlled, No redness/swelling at site. Pressure mb9 dressing applied. Administered Medications: No medications were administered Medication: 10:46 VIS not applicable for this client. mb9 Outcome: 14:00 Discharge ordered by . gb1 14:15 Discharged to home ambulatory, with family, mb9 14:15 Condition: stable 14:15 Discharge instructions given to patient, family, Instructed on discharge instructions, follow up and referral plans. Demonstrated understanding of instructions, follow-up care, 14:15 Patient left the ED. mb9 Signatures: Dispatcher [employer] EDCarmen Purdy RN RN kc6 Karen Benson RN RN mb9 Mirlande Moffett MD MD gb1 Corrections: (The following items were deleted from the chart) 10:46 10:45 Neuro: Viera Agitation-Sedation Scale (RASS): 0 - Alert and Calm Level of mb9 Consciousness is awake, alert, obeys commands, Oriented to person, place, time, situation, Appropriate for age mb9
--- NOTE | 2023-09-14 14:01 | EDPHYS ---
Physician Documentation [facility] Name: Sowmya Juarez Age: 38 yrs Sex: Female : 1985 Arrival Date: 09/14/2023 Time: 10:36 Bed 5 Private MD: ED Physician Mirlande Moffett HPI: 09/14 10:53 This 38 yrs old Female presents to ER via EMS with complaints of Allergic gb1 Reaction. 10:53 38-year-old female presents by EMS after difficulty breathing and feeling gb1 that her throat was tight. She has a history of mast cell she administered epinephrine intramuscularly herself degeneration. Via an autoinjector at 0.3 mg. She called EMS and they administered Solu-Medrol 125 mg IV, Benadryl 25 mg IV and albuterol along with 2 treatments of intramuscular epinephrine at 0.3 mg each. The patient states that she is feeling little bit better and EMS did report a heart rate in the 140s prior to arrival to the ER today. Patient denies any lip swelling and states that when she gets medications for her mast cell degeneration like this she improves. Historical: - Allergies: 10:44 Compazine; mb9 - Home Meds: 10:44 xolair injection 3X monthly [Active]; Singulair Oral [Active]; Risperdal Oral [Active]; mb9 Pepcid Oral [Active]; Metoprolol Tartrate Oral [Active]; Lamictal Oral [Active]; - PMHx: 10:44 Bipolar disorder; Mass Cell Activation Syndrome; Crohn's; Migraines; Hyperlipidemia; mb9 Hypertension; - PSHx: 10:44 Appendectomy; section; Cholecystectomy; Total abdominal hysterectomy; mb9 - Immunization history:: Adult Immunizations up to date. - Social history:: Smoking status: Patient denies any tobacco usage or history of. ROS: 10:53 Cardiovascular: Positive for palpitations, gb1 10:53 Respiratory: Positive for wheezing, expiratory, of the right upper lobe and left upper lobe, 10:53 Skin: Negative for rash, Exam: 10:53 Constitutional: This is a well developed, well nourished patient who is awake, alert, gb1 and in no acute distress. Head/Face: Normocephalic, atraumatic. Eyes: Pupils equal round and reactive to light, extra-ocular motions intact. Lids and lashes normal. Conjunctiva and sclera are non-icteric and not injected. Cornea within normal limits. Periorbital areas with no swelling, redness, or edema. ENT: Nares patent. No nasal discharge, no septal abnormalities noted. Tympanic membranes are normal and external auditory canals are clear. Oropharynx with no redness, swelling, or masses, exudates, or evidence of obstruction, uvula midline. Mucous membranes moist. Neck: Trachea midline, no thyromegaly or masses palpated, and no cervical lymphadenopathy. Supple, full range of motion without nuchal rigidity, or vertebral point tenderness. No Meningismus. Chest/axilla: Normal chest wall appearance and motion. Nontender with no deformity. No lesions are appreciated. Abdomen/GI: Soft, non-tender, with normal bowel sounds. No distension or tympany. No guarding or rebound. No evidence of tenderness throughout. Back: No spinal tenderness. No costovertebral tenderness. Full range of motion. Skin: Warm, dry with normal turgor. Normal color with no rashes, no lesions, and no evidence of cellulitis. MS/ Extremity: Pulses equal, no cyanosis. Neurovascular intact. Full, normal range of motion. 10:53 Cardiovascular: Rate: tachycardic, Vital Signs: 10:40 BP 133 / 114; Pulse 114; Resp 18; Temp 98.2; Pulse Ox 100% on R/A; Weight 72.57 kg; mb9 Height 5 ft. 6 in. ; 10:52 BP 124 / 69; Pulse 87; Resp 18 S; Pulse Ox 100% on R/A; kc6 11:25 BP 109 / 61; Pulse 84; Resp 18 S; Pulse Ox 100% on R/A; kc6 13:00 BP 115 / 61; Pulse 81; Resp 18; Pulse Ox 96% on R/A; mb9 14:14 BP 108 / 74; Pulse 62; Resp 18; Pulse Ox 100% on R/A; mb9 10:40 Body Mass Index 25.82 (72.57 kg, 167.64 cm) mb9 MDM: 10:44 Patient medically screened. gb1 14:03 Differential diagnosis: anaphylaxis, bronchospasm, Hereditary Angioedema Mastocystosis gb1 non IgE mediated drug reaction Status Asthmaticus. Data reviewed: vital signs, nurses notes. ED course: 38-year-old female here with signs symptoms consistent with acute bronchospasm likely secondary to mast cell degeneration. No signs of angioedema and the patient is speaking in full sentences no signs of increased work of breathing or retractions. She is much clinically improved since arrival to the emergency department. At this time I do not believe she needs to be discharged on steroids and she has medications at home and has been getting close return precautions to which he is compliant with prior to her discharge home.. 09/14 11:08 Order name: Chest Single View; Complete Time: 11:55 EDMS Administered Medications: No medications were administered Disposition: 14:03 Chart complete. gb1 Disposition Summary: 09/14/23 14:00 Discharge Ordered Notes: Location: Home gb1 Problem: new gb1 Symptoms: are resolved gb1 Condition: Stable gb1 Diagnosis - Other allergy, initial encounter gb1 - Respiratory disorder, unspecified gb1 Followup: gb1 - With: Private Physician - When: As needed - Reason: Re-evaluation by your physician Discharge Instructions: - Discharge Summary Sheet gb1 - Allergies, Adult gb1 Forms: - Medication Reconciliation Form gb1 - Thank You Letter gb1 - Antibiotic Education gb1 - Prescription Opioid Use gb1 - Patient Portal Instructions gb1 - Leadership Thank You Letter gb1 Signatures: Dispatcher [employer] Karen Ochoa RN RN mb9 Mirlande Moffett MD MD gb1 Corrections: (The following items were deleted from the chart) 11:40 11:29 Chest Single View+[email or web address] ordered. EDWV EDMS
[2023-09-14 15:06] VITALS: BP 133/114; TEMP 98.2; O2SAT 100
== END ==
LOC: ER 10:36
DX: J98.9 Respiratory disorder, unspecified (principal); T78.49XA Other allergy, initial encounter; D89.40 Mast cell activation, unspecified; Z88.1 Allergy status to other antibiotic agents
CPT/HCPCS: 71045; 99285

== ENCOUNTER 2024-07-04 09:59 | Emergency (ER) | payer OTHER ==
--- OUTSIDE RECORDS SUMMARY | 2024-07-04 10:05 | XMS REPORT | Continuity of Care Document ---
Author Name Unknown Address [address] [facility] [address] [place] [address] [facility] Address [address] [facility] [address] [place] [address] Care Team Providers Care [employer] Supervisor Name Role Phone KARMA JACKSON Primary Care Physician MARIUM Russell Attending Clinician Unavailable CATRACHITA MERCADO Attending Clinician ANA Leon Attending Clinician Unavailcarrie Castillo MD, Aan Saenz Attending Clinician [phone] Jane Angeles CPhT Attending Clinician Unavaila Alysa Cancino CPhT Attending Clinician Unavail able Lester [facility], Jocelyn Oconnor Attending Clinician Unavail able Catrachita Mercado MD Attending Clinician +- [phone] [facility] Attending Clinician Unavailable Bryan [facility] Attending Clinician Unavailable Marley Tello RN Attending Clinician Unavailable MATILDE DIEGO Attending Clinician Unavailable Amanda Power DO Attending Clinician [phone] Matilde Diego MD Attending Clinician [phone] Doctor Unassigned, [place] Attending Clinician U Catrachita Camejo MD Attending Clinician + [phone] [facility] Attending Clinician Unavailable DEBORAH WINSLOW Attending Clinician Unavailab Deborah Fregoso DO Attending Clinician [phone] GC_GCBZW_Kadiyala_S Attending Clinician Unavaila PAIGE Staton Attending Clinician Unavailable Robert OBRIEN, Paige Attending Clinician [phone] Unknown, Attending Attending Clinician Unavailab AMANDA Qiu Attending Clinician Unavailable Mike BURKETT, Amanda Attending Clinician [phone] RACHNA BUSH Attending Clinician Unavailable Eleazar BURKETT, Rachna Attending Clinician [phone] MORGAN VARGAS Attending Clinician Unavailable Morgan Vargas DO Attending Clinician [phone] MENG GALICIA Attending Clinician Unavailab carmen Galicia MD, Meng Attending Clinician [phone] AMANDA POWER Attending Clinician Unavailab carmen Nurse[facility] Attending Clinician U jose Roman MD, Lorene Juárez Attending Clinician [phone] LORENE ROMAN Attending Clinician Unava ELIEZER Nichols Attending Clinician Unavailable Frandy Levy MD Attending Clinician [phone] Eliezer Klein DO Attending Clinician [phone] Genaro Eubanks MD Attending Clinician [phone] Christopher [facility], Danyel Attending Clinician Unavailable Juan BURKETT, Rosio Attending Clinician [phone] Cristofer HENRY Attending Clinician Unavailable Cristofer Pradhan Attending Clinician [phone] Pob, [facility] Main Attending Clinician Unavailcarrie Jones [facility], [place] Attending Clinician UnavailMarium Billy MD Attending Clinician [phone] Alanna Camejo RN Attending Clinician Unavail able Marium Damon Attending Clinician + [phone] BA PASCAL Attending Clinician UnavailIsmael Ty Attending Clinician [phone] Ba Pascal MD Attending Clinician [phone] ROSIO TRAVIS Attending Clinician Unavailable Dedra Shepherd RN Attending Clinician Unavailab carmen Only, Ang Db Test Attending Clinician UnavailShantanu OBRIEN, Bobbi Attending Clinician [phone] BOBBI HELLER Attending Clinician Unavailable Antonio BURKETT, Audrey Attending Clinician UnavailAshwin Arteaga MD Attending Clinician +[phone] Ernesto Tesfaye CRNA Attending Clinician [phone] Jaciel Ortiz MD, Leonard Attending Clinician + [phone] [place], Adc Test Attending Clinician Unavailable SHRUTHI COLLADO Attending Clinician Unavail able Miko Araujo DO Attending Clinician [phone] , [facility] Surg Spec Procedure Attending Clinician Unavailable Provider, [facility] Attending Clinician Un available Pc, Ad[facility] Echo Room 1 - Attending Clinician Tyrel Macario MD, Deborah Attending Clinician [phone] Mino Shahid MD Attending Clinician [phone] Anahy Owen MD Attending Clinician +[phone] Tiana Smith MD Attending Clinician + [phone] TIANA SMITH Attending Clinician Unavailab Annamaria Hammond Attending Clinician +- [phone] ANAHY OWEN Attending Clinician Unavailable MARIUM DAWSON Admitting Clinician Unavailable MATILDE DIEGO Admitting Clinician Unavailable Matilde Diego MD Admitting Clinician [phone] DEBORAH WINSLOW Admitting Clinician Unavailab carmen GC_GCBZW_Kadiyala_S Admitting Clinician Unavaila MORGAN Sawant Admitting Clinician Unavailable AMANDA POWER Admitting Clinician Unavailab ELIEZER Randall Admitting Clinician Unavailable Eliezer Klein DO Admitting Clinician [phone] Cristofer HENRY Admitting Clinician Unavailable Marium Dawson MD Admitting Clinician [phone] Anahy Owen MD Admitting Clinician [phone] Tiana Smith MD Admitting Clinician + [phone] TIANA SMITH Admitting Clinician Unavailab ANAHY Lowe Admitting Clinician Unavailable Payers Payer Name Policy Type Policy Number Effective Date Expirati on Date Source MEDICARE PART A \\T\\ B [id number] 2014 00:00:00 [place] [id number] 2014 00:00:00 Problems Condition Name Condition Details Condition Category Status Onset Date Resolution Date Last Treatment Date Treating Clinician Comments Source Chronic idiopathic urticaria Chronic idiopathic urticaria Disease Active 2022-09 00:00: 00 [facility] Chronic seasonal allergic rhinitis due to pollen Chronic seasonal allergic rhinitis due to pollen Disease Active 2022-09 0 00:00: 00 [facility] Chronic rhinitis Chronic rhinitis Disease Active 2022-09 00:00: 00 [facility] Allergic conjunctiv itis of both eyes Allergic conjunctiv itis of both eyes Disease Active 2022-09 00:00: 00 [facility] Anaphylaxi s, subsequent encounter Anaphylaxi s, subsequent encounter Disease Active 2021-09 2- 00:00: 00 [facility] 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 2021-09 0 00:00: 00 [facility] Angioedema , initial encounter Angioedema , initial encounter Disease Active 10-15 00:00: 00 [facility] Allergic reaction, initial encounter Allergic reaction, initial encounter Disease Active 02-28 00:00: 00 [facility] Post-opera tive state Post-opera tive state Disease Active 02-28 00:00: 00 [facility] S/P laparoscop ic assisted vaginal hysterecto my (LAVH) S/P laparoscop ic assisted vaginal hysterecto my (LAVH) Disease Active 02-22 00:00: 00 [facility] Crohn disease Crohn disease Disease Active 05-11 00:00: 00 [facility] Obesity (BMI 30-39.9) Obesity (BMI 30-39.9) Disease Active 05-11 00:00: 00 [facility] Bipolar I disorder, most recent episode depressed Bipolar I disorder, most recent episode depressed Disease Active 03-16 00:00: 00 Overview: Formattin g of this note might be different from the original. ICD10 Diagnosis Term [employer]marine [employer] [facility] Pelvic pain Pelvic pain Disease Resolve d 6-18 00:00: 00 2021-07-11 00:00:00 2021-07-11 18:15:54 [facility] Abnormal uterine bleeding (AUB) Abnormal uterine bleeding (AUB) Disease Resolve d 2020- 5-19 00:00: 00 2021-07-11 00:00:00 2021-07-11 18:15:53 [facility] Undifferen tiated abdominal pain Undifferen tiated abdominal pain Disease Resolve d 2019-09 0-17 00:00: 00 2021-02-28 00:00:00 2021-02-28 16:17:34 [facility] Intractabl e nausea and vomiting Intractabl e nausea and vomiting Disease Resolve d 6-20 00:00: 00 2021-02-28 00:00:00 2021-02-28 16:17:30 [facility] Fever and chills Fever and chills Disease Resolve d 5-27 00:00: 00 2021-02-28 00:00:00 2021-02-28 16:17:32 [facility] Allergies, Adverse Reactions, Alerts Allergy Name Allergy Type Status Severity Reaction(s) Onset Date Inactive Date Treating Clinician Comments Source Prochlor perazine Propensi ty to adverse reaction s Active Anaphylaxis 02-26 00:00: 00 [facility] PROCHLOR PERAZINE DRUG INGREDI Active Anaphylaxis 02-26 00:00: 00 [facility] Prochlor perazine Edisylat e Propensi ty to adverse reaction s Active Anaphylaxis 03-15 00:00: 00 [facility] PROCHLOR PERAZINE EDISYLAT E DRUG INGREDI Active Anaphylaxis 03-15 00:00: 00 [facility] Social History Social Habit Start Date Stop Date Quantity Comments Source History of tobacco use Passive smoker [facility] History SDOH Alcohol Frequency [facility] History SDOH Alcohol Std Drinks [facility] History SDOH Alcohol Binge [facility] Gender identity [facility] Sexual orientation [facility] Alcoholic beverage intake 2024-06-17 00:00:00 2024-06-17 00:00:00 Current drinker of alcohol (finding) [facility] Alcohol intake 2023-12-10 00:00:00 2023-12-10 00:00:00 Current drinker of alcohol (finding) [facility] Cigarettes smoked current (pack per day) - Reported 2023-02-04 00:00:00 2023-02-04 00:00:00 [facility] Cigarette pack-years 2023-02-04 00:00:00 2023-02-04 00:00:00 [facility] Tobacco use and exposure 2023-02-04 00:00:00 2023-02-04 00:00:00 Smokeless tobacco non-user [facility] Exposure to SARS-CoV-2 (event) 2022-12-23 00:00:00 2023-01-02 09:43:00 Not sure [facility] History of Social function 2021-02-21 00:00:00 2021-02-21 00:00:00 [facility] Alcohol Comment 2018-05-11 00:00:00 2018-05-11 00:00:00 Occasional [facility] Sex assigned at 1985 00:00:00 1985 00:00:00 [facility] Smoking Status Start Date Stop Date Source Ex-smoker 2023-02-04 00:00:00 2023-02-04 00:00:00 [facility] Medications Ordered Medication Name Filled Medication Name Start Date Stop Date Current Medication? Ordering Clinician Indication Dosage Frequency Signature (SIG) Comments Components Source NaCl 0.9% (NS) bolus infusion 1,000 mL 2023-09 23:00: 00 06-18 01:22 :00 No 1000mL at 999 mL/hr, 1,000 mL, IV Infusion, ONCE, 1 dose, On 06/17/24 at 1800, SHEEBA [facility] predniSONE 20 mg tablet 2023-09 00:00: 00 Yes [id number] 60mg Take 3 tablets by mouth every morning. [facility] tacrolimus 1 mg capsule 04-14 00:00: 00 Yes [id number] 2mg Take 2 capsules by mouth every 12 (twelve) hours. [facility] diphenhydrA MINE (BENADRYL) injection 25 mg 03-12 16:15: 00 03-12 15:37 :00 No 25mg 25 mg, Intravenou s, ONCE, 1 dose, On 03/12/24 at 1115, Routine [facility] montelukast (SINGULAIR) tablet 10 mg 03-12 14:00: 00 Yes 10mg 10 mg, Oral, DAILY, First dose on 03/12/24 at 0900, Until Discontinu ed, Routine [facility] DULoxetine (CYMBALTA) capsule 30 mg 03-12 14:00: 00 Yes 30mg 30 mg, Oral, DAILY, First dose on 03/12/24 at 0900, Until Discontinu ed, Routine [facility] allopurinoL (ZYLOPRIM) tablet 300 mg 03-12 14:00: 00 Yes 300mg 300 mg, Oral, DAILY, First dose on 03/12/24 at 0900, Until Discontinu ed, Routine [facility] cetirizine (ZYRTEC) tablet 10 mg 03-12 14:00: 00 Yes 10mg 10 mg, Oral, DAILY, First dose on 03/12/24 at 0900, Until Discontinu ed, Routine [facility] famotidine (PEPCID (PF)) injection 20 mg 03-12 13:00: 00 Yes 20mg 20 mg, Slow IV Push, Q12H, First dose on 03/12/24 at 0800, Until Discontinu ed, Routine [facility] HYDROcodone -acetaminop hen (NORCO 5) 5-325 mg tablet 1 tablet 03-12 07:17: 01 Yes 1{tbl} 1 tablet, Oral, Q6HPRN, Starting on 03/12/24 at 0217, Until Discontinu ed, Routine, breakthrou gh pain [facility] acetaminoph en (TYLENOL) tablet 650 mg 03-12 07:16: 09 Yes 650mg 650 mg, Oral, Q6HPRN, Starting on Wed03/12/24 at 0216, Until Discontinu ed, Routine, Pain (scale 1-3), Temp > 38 C [facility] NaCl 0.9% (NS) IV infusion 1,000 mL 03-12 06:15: 00 Yes 1000mL at 100 mL/hr, IV Infusion, CONTINUOUS , Starting on Wed03/12/24 at 0115, Until Discontinu ed, Routine [facility] potassium chloride in water 10 mEq/100 mL RTU 10 mEq 03-12 06:00: 00 03-12 08:05 :00 No 10meq 10 mEq, IV Piggyback, Q1H, 2 doses, First dose on Wed03/12/24 at 0100, Last dose on Wed03/12/24 at 0200, Administer over 60 Minutes, 100 mL [facility] methylPREDN ISolone sod succ (SOLU-MEDRO L (PF)) injection 40 mg 03-12 05:00: 00 03-13 16:59 :00 No 40mg 40 mg, Intravenou s, Q6H, 6 doses, First dose (after last modificati on) on Wed03/12/24 at 0000, Last dose on Wed03/13/24 at 0600, 1 mL [facility] atorvastati n (LIPITOR) tablet 20 mg 03-12 02:00: 00 Yes 20mg 20 mg, Oral, QHS, First dose on 03/11/24 at 2100, Until Discontinu ed, Routine [facility] tacrolimus (PROGRAF) capsule 1 mg 03-12 01:00: 00 Yes 1mg 1 mg, Oral, Q12H, First dose on 03/11/24 at 2000, Until Discontinu ed, Routine, cleaning team member approving Restricted medication : MATILDE DIEGO [facility] ipratropium -albuteroL (DUONEB) 0.5 mg-3 mg(2.5 mg base)/3 mL nebulizer solution 3 mL 03-12 00:41: 48 Yes 3mL [facility] predniSONE 20 mg tablet 03-12 00:00: 00 03-16 04:59 :00 No [id number] 40mg Take 2 tablets by mouth in the morning for 3 days. [facility] ondansetron (ZOFRAN (PF)) injection 4 mg 03-11 23:04: 32 Yes 4mg 4 mg, Slow IV Push, Q6HPRN, Starting on 03/11/24 at 1804, Until Discontinu ed, Routine, Nausea and Vomiting (N/V) [facility] acetaminoph en (TYLENOL) tablet 650 mg 03-11 23:04: 21 03-12 07:17 :42 No 650mg 650 mg, Oral, Q6HPRN, Starting on 03/11/24 at 1804, Until 03/12/24 at 0217, Routine, Pain (scale 1-3), Temp > 38 C [facility] racEPINEPHr ine (S2 RACEMIC) 2.25 % nebulizer solution 0.5 mL 03-11 22:00: 00 03-11 21:07 :00 No .5mL 0.5 mL, Inhalation , ONCE, 1 dose, On 03/11/24 at 1700, SHEEBA [facility] famotidine (PEPCID (PF)) injection 20 mg 03-11 21:15: 00 03-11 21:15 :00 No 20mg 20 mg, Slow IV Push, ONCE, 1 dose, On 03/11/24 at 1615, SHEEBA [facility] tacrolimus 1 mg capsule 01-27 00:00: 00 04-14 00:00 :00 No [id number] 1mg Take 1 capsule by mouth every 12 (twelve) hours. [facility] EPINEPHrine (EPIPEN) 0.3 mg/0.3 mL injection 12-09 00:00: 00 Yes [id number] .3mg 0.3 mL by Intramuscu lar route as needed (anaphylax is). [facility] famotidine (PEPCID) 20 mg tablet 12-09 00:00: 00 Yes [id number] 20mg Take 1 tablet by mouth in the morning and 1 tablet in the evening. [facility] montelukast 10 mg tablet 12-09 00:00: 00 Yes [id number] 10mg Take 1 tablet by mouth in the morning. [facility] ketotifen 1 MG capsule 12-09 00:00: 00 03-11 00:00 :00 No [id number] 2mg Take 2 capsules by mouth in the morning and 2 capsules in the evening. [facility] tacrolimus 1 mg capsule 12-09 00:00: 00 01-25 00:00 :00 No [id number] 1mg Take 1 capsule by mouth every 12 (twelve) hours. [facility] predniSONE (DELTASONE) tablet 60 mg 2022-09 22:45: 00 09-04 23:06 :00 No 60mg 60 mg, Oral, ONCE, 1 dose, On 09/04/23 at 1645, SHEEBA [facility] maalox:diph enhydrAMINE :lidocaine 2 % viscous 1:1:1 ([facility]) oral suspension 15 mL 2022-09 22:30: 00 09-04 23:06 :00 No 15mL 15 mL, Oral, ONCE, 1 dose, On 09/04/23 at 1630, Routine [facility] ketorolac (TORADOL) injection 15 mg 2022-09 20:45: 00 09-04 19:42 :00 No 15mg 15 mg, Slow IV Push, ONCE, 1 dose, On 09/04/23 at 1445, SHEEBA [facility] dicyclomine (BENTYL) tablet 20 mg 2022-09 20:30: 00 09-04 20:40 :00 No 20mg 20 mg, Oral, ONCE, 1 dose, On 09/04/23 at 1430, SHEEBA [facility] NaCl 0.9% (NS) bolus infusion 500 mL 2022-09 19:45: 00 09-04 23:06 :00 No 500mL at 999 mL/hr, 500 mL, IV Infusion, ONCE, 1 dose, On 09/04/23 at 1345, STAT [facility] ondansetron (ZOFRAN (PF)) injection 4 mg 2022-09 19:45: 00 09-04 19:42 :00 No 4mg 4 mg, Slow IV Push, ONCE, 1 dose, On 09/04/23 at 1345, SHEEBA [facility] predniSONE 20 mg tablet 2022-09 00:00: 00 12-29 00:00 :00 No [id number] Take 3 pills every morning by mouth, until gone [facility] omalizumab (XOLAIR) 150 mg/mL injection 2022-09 00:00: 00 Yes [id number] 300mg inject 2 Syringes under the skin every 2 (two) weeks. [facility] azelastine 137 mcg (0.1 %) nasal spray 2022-09 0 00:00: 00 03-11 00:00 :00 No [id number] 1{spray } Use 1 [place] in each nostril in the morning and 1 [place] in the evening. Use in each nostril as directed [facility] olopatadine 0.1 % ophthalmic solution 2022-09 0 00:00: 00 03-11 00:00 :00 No [id number] 1[drp] Place 1 Drop in both eyes 2 (two) times daily as needed for Allergies (itchy eyes symptoms with allergies) . [facility] cromolyn 100 mg/5 mL solution 2022-09 0 00:00: 00 12-29 00:00 :00 No [id number] 200mg Take 10 mL by mouth 4 (four) times daily. [facility] predniSONE 20 mg tablet 2022-09 0- 00:00: 00 09-04 00:00 :00 No [id number] Take 3 tablets PO with Pepcid and Benadryl in case of an Allergic Reaction [facility] ketotifen 1 MG capsule 02-04 00:00: 00 Yes [id number] 2mg Take 2 capsules by mouth in the morning and 2 capsules in the evening. [facility] EPINEPHrine (EPIPEN) 0.3 mg/0.3 mL injection 02-04 00:00: 00 12-09 00:00 :00 No [id number] .3mg 0.3 mL by Intramuscu lar route as needed (anaphylax is). [facility] famotidine (PEPCID) 20 mg tablet 02-04 00:00: 00 12-09 00:00 :00 No [id number] 20mg Take 1 tablet by mouth in the morning and 1 tablet in the evening. [facility] montelukast 10 mg tablet 02-04 00:00: 00 12-09 00:00 :00 No [id number] 10mg Take 1 tablet by mouth in the morning. [facility] ketotifen 1 MG capsule 02-04 00:00: 00 12-09 00:00 :00 No [id number] 2mg Take 2 capsules by mouth in the morning and 2 capsules in the evening. [facility] predniSONE 20 mg tablet 02-04 00:00: 00 06-11 00:00 :00 No Take 3 tablets PO with Pepcid and Benadryl in case of an Allergic Reaction [facility] dexamethaso ne (DECADRON) injection 10 mg 01-02 14:54: 00 01-02 14:56 :00 No [id number] 10mg [facility] methylPREDN ISolone (MEDROL, EHSAN,) 4 mg tablets 01-02 00:00: 00 02-04 00:00 :00 No [id number] follow package directions [facility] benzonatate 200 mg capsule 01-02 00:00: 00 01-13 04:59 :00 No [id number] 200mg Take 1 capsule by mouth 3 (three) times daily as needed for Cough for up to 10 days. [facility] doxycycline hyclate 100 mg tablet 01-02 00:00: 00 01-10 04:59 :00 No [id number] 100mg Take 1 tablet by mouth in the morning and 1 tablet in the evening. Do all this for 7 days. [facility] codeine-gua ifenesin 10-100 mg/5 mL oral solution 01-02 00:00: 00 01-08 04:59 :00 No 10mL Take 10 mL by mouth every 6 (six) hours as needed for Cough for up to 5 days. Indication s: cough [facility] risperiDONE 3 mg tablet 12-28 00:00: 00 03-11 00:00 :00 No 3mg Take 1 tablet by mouth at bedtime. [facility] DULoxetine 30 mg capsule 12-23 00:00: 00 Yes [facility] famotidine (PEPCID (PF)) injection 20 mg 12-07 18:15: 00 12-07 17:23 :00 No 20mg 20 mg, Slow IV Push, ONCE NOW, 1 dose, On Wed12/07/22 at 1315, SHEEBA [facility] racEPINEPHr ine (S2 RACEMIC) 2.25 % nebulizer solution 0.5 mL 12-07 17:15: 00 12-07 17:16 :00 No .5mL 0.5 mL, Inhalation , ONCE, 1 dose, On Wed12/07/22 at 1215, STAT [facility] diphenhydrA MINE (BENADRYL) injection 50 mg 12-07 17:15: 00 12-07 17:12 :00 No 50mg 50 mg, Slow IV Push, ONCE, 1 dose, On Wed12/07/22 at 1215, STAT [facility] dexamethaso ne sod phos PF injection 10 mg 12-07 17:15: 00 12-07 17:12 :00 No 10mg 10 mg, Slow IV Push, ONCE, 1 dose, On 12/07/22 at 1215, 1 mL [facility] diphenhydrA MINE (BENADRYL) 25 mg capsule 12-07 00:00: 00 Yes [id number] Take 2 tablets PO with Prednisone and Pepcid in case of an Allergic Reaction [facility] albuterol 90 mcg/actuati on inhaler 12-07 00:00: 00 Yes [id number] 2{puff} Inhale 2 Puffs every 4 (four) hours as needed for Wheezing, Shortness of Breath or Bronchospa sm (Allergic Reaction). [facility] famotidine (PEPCID) 20 mg tablet 12-07 00:00: 00 02-04 00:00 :00 No [id number] Take 2 tablets PO in case of Allergic Reaction [facility] predniSONE 20 mg tablet 12-07 00:00: 00 02-04 00:00 :00 No [id number] Take 3 tablets PO with Pepcid and Benadryl in case of an Allergic Reaction [facility] indomethaci n 50 mg capsule 11-30 00:00: 00 03-12 00:00 :00 No TAKE 1 CAPSULE (50 MG) BY ORAL ROUTE 1 TIME PER DAY WITH FOOD NEEDED FOR HAND PAIN [facility] allopurinoL 300 mg tablet 11-11 00:00: 00 Yes 300mg Take 1 tablet by mouth in the morning. [facility] doxycycline hyclate 100 mg capsule 11-05 00:00: 00 06-11 00:00 :00 No [id number] 100mg Take 1 capsule by mouth every 12 (twelve) hours. [facility] levalbutero l (XOPENEX) nebulizer solution 1.25 mg 09-27 14:00: 00 Yes 1.25mg 1.25 mg, Inhalation , TID, First dose on 09/27/22 at 0800, Until Discontinu ed, Routine [facility] ipratropium -albuteroL (DUONEB) 0.5 mg-3 mg(2.5 mg base)/3 mL nebulizer solution 3 mL 09-27 14:00: 00 Yes 3mL 3 mL, Inhalation , QID, First dose on Wed09/27/22 at 0800, Until Discontinu ed, Routine [facility] methylpredn isolone sod succ (SOLU-MEDRO L) injection 125 mg 09-27 12:00: 00 Yes 125mg 125 mg, Intravenou s, Q6H, First dose on Wed09/27/22 at 0600, Until Discontinu ed, Routine [facility] LORazepam (ATIVAN) injection 1 mg 09-27 07:30: 00 09-27 07:20 :00 No 1mg 1 mg, Slow IV Push, ONCE, 1 dose, On 09/27/22 at 0130, STAT [facility] racEPINEPHr ine (S2 RACEMIC) 2.25 % nebulizer solution 0.5 mL 09-27 07:00: 00 09-27 07:04 :00 No .5mL 0.5 mL, Inhalation , ONCE, 1 dose, On 09/27/22 at 0100, STAT [facility] famotidine (PEPCID (PF)) injection 20 mg 09-27 07:00: 00 09-27 07:05 :00 No 20mg 20 mg, Slow IV Push, ONCE, 1 dose, On Wed09/27/22 at 0100, SHEEBA [facility] diphenhydrA MINE (BENADRYL) injection 50 mg 09-27 07:00: 00 09-27 07:05 :00 No 50mg 50 mg, Slow IV Push, ONCE, 1 dose, On 09/27/22 at 0100, STAT [facility] NaCl 0.9% (NS) bolus infusion 1,000 mL 09-20 01:15: 00 09-20 03:05 :00 No 1000mL at 999 mL/hr, 1,000 mL, IV Infusion, ONCE, 1 dose, On 09/19/22 at 1915, [facility] ondansetron (ZOFRAN (PF)) injection 4 mg 09-20 00:30: 00 09-20 00:36 :00 No 4mg 4 mg, Slow IV Push, ONCE, 1 dose, On 09/19/22 at 1830, [facility] famotidine (PEPCID (PF)) injection 20 mg 09-20 00:30: 00 09-20 00:36 :00 No 20mg 20 mg, Slow IV Push, ONCE, 1 dose, On 09/19/22 at 1830, [facility] ipratropium -albuteroL (DUONEB) 0.5 mg-3 mg(2.5 mg base)/3 mL nebulizer solution 3 mL 09-20 00:28: 00 09-20 00:36 :00 No 3mL 3 mL, Inhalation , ONCE, 1 dose, On 09/19/22 at 1830, [facility] methylPREDN ISolone 4 mg tablets 09-19 00:00: 00 02-04 00:00 :00 No [id number] Take by mouth SEE-INSTRU CTIONS. follow package directions [facility] omalizumab (XOLAIR) injection 150 mg 09-14 22:15: 00 09-15 10:14 :00 No [id number] 150mg [facility] omalizumab (XOLAIR) injection 09-11 00:00: 00 06-11 00:00 :00 No [id number] 300mg inject 2 Syringes under the skin every 2 (two) weeks. [facility] montelukast 10 mg tablet 09-11 00:00: 00 02-04 00:00 :00 No [id number] 10mg Take 1 tablet by mouth in the morning. [facility] EPINEPHrine (EPIPEN) 0.3 mg/0.3 mL injection 09-11 00:00: 00 02-04 00:00 :00 No [id number] .3mg 0.3 mL by Intramuscu lar route as needed (anaphylax is). [facility] ketorolac (TORADOL) injection 30 mg 2021-09 04:45: 00 08-29 03:54 :00 No 30mg 30 mg, Slow IV Push, ONCE, 1 dose, On Wed08/28/22 at 2245, Routine [facility] iopamidol (ISOVUE 370-500 mL) injection 75 mL 2021-09 04:15: 00 08-29 03:18 :00 No [id number] 75mL 75 mL, Intravenou s, ONCE, 1 dose, On Wed08/28/22 at 2215, Routine [facility] dexamethaso ne sod phos PF injection 10 mg 2021-09 04:00: 00 08-29 03:54 :00 No 10mg 10 mg, Slow IV Push, ONCE, 1 dose, On Wed08/28/22 at 2200, 1 mL [facility] FENTanyl PF (SUBLIMAZE (PF)) injection 50 mcg 2021-09 03:45: 00 08-29 03:06 :00 No 50ug 50 mcg, Slow IV Push, ONCE, 1 dose, On Wed08/28/22 at 2145, Routine [facility] NaCl 0.9% (NS) bolus infusion 1,000 mL 2021-09 03:45: 00 08-29 04:31 :00 No 1000mL at 999 mL/hr, 1,000 mL, IV Infusion, ONCE, 1 dose, On Wed08/28/22 at 2145, SHEEBA [facility] ondansetron (ZOFRAN (PF)) injection 4 mg 2021-09 03:00: 00 08-29 03:06 :00 No 4mg 4 mg, Slow IV Push, ONCE, 1 dose, On Wed08/28/22 at 2100, SHEEBA [facility] predniSONE 10 mg tablet 2021-09 00:00: 00 02-04 00:00 :00 No [id number] Take 3 tablets by mouth daily for 5 days then take 2 tablets by mouth daily for 5 days then take 1 tablet by mouth daily for 5 days then take 0.5 tablets by mouth daily for 4 days then stop. [facility] omalizumab (XOLAIR) injection 150 mg 2021-09 17:45: 00 08-17 16:53 :00 No [id number] 150mg [facility] diphenhydrA MINE (BENADRYL) injection 50 mg 2021-09 17:55: 54 Yes 50mg 50 mg, Intravenou s, Q6HPRN, Starting on 08/15/22 at 1155, Until Discontinu ed, Routine, Itching, rash [facility] dicyclomine (BENTYL) 10 mg capsule 2021-09 17:15: 49 Yes 10mg Take 1 capsule by mouth 4 (four) times daily as needed for Abdominal pain. [facility] diphenhydrA MINE (BENADRYL) injection 50 mg 2021-09 16:45: 00 08-15 16:00 :00 No 50mg 50 mg, Intravenou s, ONCE, 1 dose, On 08/15/22 at 1045, Routine [facility] montelukast (SINGULAIR) tablet 10 mg 2021-09 15:00: 00 Yes 10mg 10 mg, Oral, DAILY, First dose on 08/15/22 at 0900, Until Discontinu ed, Routine [facility] lamoTRIgine (LAMICTAL) tablet 200 mg 2021-09 15:00: 00 Yes 200mg 200 mg, Oral, DAILY, First dose on 08/15/22 at 0900, Until Discontinu ed, Routine [facility] fluticasone propionate 50 mcg/actuati on nasal spray 1 [place] 2021-09 15:00: 00 Yes 1{spray } 1 [place], Nasal, DAILY, First dose on 08/15/22 at 0900, Until Discontinu ed, Routine [facility] atorvastati n (LIPITOR) tablet 20 mg 2021-09 03:00: 00 Yes 20mg 20 mg, Oral, QHS, First dose on Wed08/14/22 at 2100, Until Discontinu ed, Routine [facility] methylPREDN ISolone sod succ (SOLU-MEDRO L (PF)) injection 40 mg 2021-09 02:00: 00 Yes 40mg 40 mg, Intravenou s, Q12H, First dose on Wed08/14/22 at 2000, Until Discontinu ed, 1 mL [facility] famotidine (PEPCID AC) tablet 20 mg 2021-09 02:00: 00 Yes 20mg 20 mg, Oral, BID, First dose on Wed08/14/22 at 2000, Until Discontinu ed, Routine [facility] cetirizine (ZYRTEC) tablet 10 mg 2021-09 02:00: 00 Yes 10mg 10 mg, Oral, BID, First dose on Wed08/14/22 at 2000, Until Discontinu ed, [facility] (APRESOLINE ) [facility] 10 mg 2021-09 01:01: 30 Yes 10mg 10 mg, Slow IV Push, Q4HPRN, Starting on Wed08/14/22 at 1901, Until Discontinu ed, Routine, DBP=>100; SBP=>160, For SBP > 160 [facility] ALPRAZolam (XANAX) tablet 0.25 mg 2021-09 00:47: 21 Yes .25mg 0.25 mg, Oral, TIDPRN, Starting on Wed08/14/22 at 1847, Until Discontinu ed, Routine, anxiety [facility] ondansetron (ZOFRAN) 4 mg/5 mL solution 4 mg 2021-09 00:47: 10 Yes 4mg 4 mg, Oral, Q6HPRN, Starting on Wed08/14/22 at 1847, Until Discontinu ed, Routine, Nausea and Vomiting (N/V) [facility] dicyclomine (BENTYL) capsule 10 mg 2021-09 00:00: 32 Yes 10mg 10 mg, Oral, QIDPRN, Starting on Wed08/14/22 at 1800, Until Discontinu ed, Routine, Abdominal pain [facility] cyclobenzap rine (FLEXERIL) tablet 10 mg 2021-09 00:00: 26 Yes 10mg 10 mg, Oral, QHSPRN, Starting on Wed08/14/22 at 1800, Until Discontinu ed, Routine, Muscle Spasms [facility] albuterol (VENTOLIN) inhaler 2 Puff 2021-09 00:00: 03 Yes 2{puff} 2 Puff, Inhalation , Q6HPRN, Starting on Wed08/14/22 at 1800, Until Discontinu ed, Routine, Wheezing, Shortness of Breath [facility] predniSONE 20 mg tablet 2021-09 00:00: 00 08-19 05:59 :00 No [id number] 40mg Take 2 tablets by mouth in the morning for 3 days. [facility] enoxaparin (LOVENOX) injection 40 mg 2021-09 23:00: 00 Yes 40mg 40 mg, Subcutaneo us, DAILY, First dose on Wed08/14/22 at 1700, Until Discontinu ed, Routine [facility] KCL 20 mEq/15 mL solution 40 mEq 2021-09 22:00: 00 08-14 21:08 :00 No 40meq 40 mEq, Oral, ONCE, 1 dose, On Wed08/14/22 at 1600, Routine [facility] NaCl 0.9% (NS) IV infusion 1,000 mL 2021-09 20:30: 00 08-14 20:02 :00 No 1000mL at 999 mL/hr, Intravenou s, ONCE, 1 dose, On Wed08/14/22 at 1430, SHEEBA [facility] racEPINEPHr ine (S2 RACEMIC) 2.25 % nebulizer solution 0.5 mL 2021-09 19:30: 00 08-14 19:32 :00 No .5mL 0.5 mL, Inhalation , ONCE, 1 dose, On Wed08/14/22 at 1330, STAT [facility] famotidine (PEPCID (PF)) injection 20 mg 2021-09 19:21: 00 08-14 19:22 :00 No 20mg 20 mg, Slow IV Push, ONCE, 1 dose, On Wed08/14/22 at 1330, SHEEBA [facility] omalizumab (XOLAIR) injection 2021-09 00:00: 00 09-11 00:00 :00 No 450mg inject 3 Syringes under the skin every 4 (four) weeks. [facility] EPINEPHrine 0.3 mg/0.3 mL injection 2021-09 00:00: 00 08-15 05:59 :00 No [id number] .3mg 0.3 mL by Intramuscu lar route once now for 1 dose. [facility] omalizumab (XOLAIR) injection 150 mg 2021-09 19:00: 00 07-22 18:05 :00 No [id number] 150mg [facility] predniSONE (DELTASONE) tablet 40 mg 2021-09 16:45: 00 06-28 16:49 :00 No 40mg 40 mg, Oral, ONCE, 1 dose, On 06/28/22 at 1145, Routine [facility] montelukast (SINGULAIR) tablet 10 mg 2021-09 14:00: 00 Yes 10mg 10 mg, Oral, DAILY, First dose on 06/28/22 at 0900, Until Discontinu ed, Routine [facility] lamoTRIgine (LAMICTAL) tablet 200 mg 2021-09 14:00: 00 Yes 200mg 200 mg, Oral, QAM, First dose on 06/28/22 at 0900, Until Discontinu ed, Routine [facility] fluticasone propionate 50 mcg/actuati on nasal spray 1 [place] 2021-09 14:00: 00 Yes 1{spray } 1 [place], Nasal, DAILY, First dose on 06/28/22 at 0900, Until Discontinu ed, Routine [facility] atorvastati n (LIPITOR) tablet 20 mg 2021-09 14:00: 00 Yes 20mg 20 mg, Oral, DAILY, First dose on 06/28/22 at 0900, Until Discontinu ed, Routine [facility] enoxaparin (LOVENOX) injection 40 mg 2021-09 14:00: 00 Yes 40mg 40 mg, Subcutaneo us, DAILY, First dose on 06/28/22 at 0900, Until Discontinu ed, Routine [facility] dicyclomine (BENTYL) 10 mg capsule 2021-09 13:32: 28 Yes 10mg Take 10 mg by mouth 4 (four) times daily as needed for Abdominal pain. [facility] famotidine (PEPCID AC) tablet 20 mg 2021-09 13:00: 00 Yes 20mg 20 mg, Oral, BID, First dose on 06/28/22 at 0800, Until Discontinu ed, Routine [facility] acetaminoph en (TYLENOL) tablet 650 mg 2021-09 12:31: 12 Yes 650mg 650 mg, Oral, Q6HPRN, Starting on 06/28/22 at 0731, Until Discontinu ed, Routine, Pain (scale 1-3) [facility] NaCl 0.9% (NS) IV infusion 1,000 mL 2021-09 05:30: 00 Yes 1000mL at 125 mL/hr, IV Infusion, CONTINUOUS , Starting on 06/28/22 at 0030, Until Discontinu ed, Routine [facility] ondansetron (ZOFRAN (PF)) injection 4 mg 2021-09 03:07: 06 Yes 4mg 4 mg, Slow IV Push, Q6HPRN, Starting on 06/27/22 at 2207, Until Discontinu ed, Routine, Nausea and Vomiting (N/V) [facility] NaCl 0.9% (NS) IV infusion 1,000 mL 2021-09 03:00: 00 06-28 11:00 :00 No 1000mL at 125 mL/hr, IV Infusion, ONCE, 1 dose, On 06/27/22 at 2200, Routine [facility] KCL (KLOR-CON M20) tablet 40 mEq 2021-09 03:00: 00 06-28 02:33 :00 No 40meq 40 mEq, Oral, ONCE, 1 dose, On 06/27/22 at 2200, Routine [facility] hydrOXYzine (ATARAX) tablet 25 mg 2021-09 01:43: 10 Yes 25mg 25 mg, Oral, Q8HPRN, Starting on 06/27/22 at 2042, Until Discontinu ed, [facility]icycl[facility] (BENTYL[facility] capsule 10 mg 2021-09 01:42: 46 Yes 10mg 10 mg, Oral, QIDPRN, Starting on 06/27/22 at 2041, Until Discontinu ed, Routine, Abdominal pain [facility] cyclobenzap rine (FLEXERIL) tablet 10 mg 2021-09 01:42: 33 Yes 10mg 10 mg, Oral, QHSPRN, Starting on 06/27/22 at 2041, Until Discontinu ed, Routine, Muscle Spasms [facility] predniSONE 20 mg tablet 2021-09 00:00: 00 07-02 04:59 :00 No [id number] 40mg Take 2 tablets by mouth in the morning for 3 days. [facility] EPINEPHrine 0.3 mg/0.3 mL injection 2021-09 00:00: 00 06-29 04:59 :00 No [id number] .3mg 0.3 mL by Intramuscu lar route once now for 1 dose. [facility] loratadine (CLARITIN) tablet 10 mg 2021-09 23:00: 00 Yes 10mg 10 mg, Oral, DAILY, First dose on 06/27/22 at 1800, Until Discontinu ed, Routine [facility] methylpredn isolone sod succ (SOLU-MEDRO L) injection 60 mg 2021-09 23:00: 00 06-28 15:45 :52 No 60mg 60 mg, Intravenou s, Q6H, 4 doses, First dose on 06/27/22 at 1800, Last dose on 06/28/22 at 1200, 2 mL [facility] NaCl 0.9% (NS) bolus infusion 1,000 mL 2021-09 20:30: 00 06-27 22:00 :00 No 1000mL at 999 mL/hr, 1,000 mL, IV Piggyback, ONCE, 1 dose, On 06/27/22 at 1530, [facility] proMETHazin e (PHENERGAN) 25 mg in NaCl 0.9% (NS) 50 mL IV piggyback 2021-09 20:00: 00 06-27 19:58 :00 No 25mg 25 mg, IV Piggyback, ONCE, 1 dose, On 06/27/22 at 1500, [facility] famotidine (PEPCID (PF)) injection 20 mg 2021-09 19:00: 00 06-27 19:17 :00 No 20mg 20 mg, Slow IV Push, ONCE, 1 dose, On 06/27/22 at 1400, [facility] racEPINEPHr ine (S2 RACEMIC) 2.25 % nebulizer solution 0.5 mL 2021-09 19:00: 00 06-27 18:51 :00 No .5mL 0.5 mL, Inhalation , ONCE, 1 dose, On 06/27/22 at 1400, [facility] omalizumab (XOLAIR) injection 150 mg 2021-09 18:00: 00 06-25 17:06 :00 No [id number] 150mg [facility] omalizumab (XOLAIR) injection 150 mg 05-28 17:45: 00 05-28 17:10 :00 No [id number] 150mg [facility] omalizumab (XOLAIR) injection 150 mg - 17:30: 00 04-30 16:42 :00 No [id number] 150mg [facility] famotidine (PEPCID) 20 mg tablet 8-25 00:00: 00 02-04 00:00 :00 No [id number] 20mg Take 1 tablet by mouth in the morning and 1 tablet in the evening. [facility] montelukast 10 mg tablet 8-25 00:00: 00 09-11 00:00 :00 No [id number] 10mg Take 1 tablet by mouth in the morning. [facility] cetirizine 10 mg tablet 7-28 00:00: 00 09-30 05:59 :00 No [id number] 10mg Take 1 tablet by mouth in the morning and 1 tablet in the evening. Do all this for 180 days. [facility] omalizumab (XOLAIR) injection 5-06 00:00: 00 08-14 00:00 :00 No 450mg inject 3 Syringes under the skin every 4 (four) weeks. [facility] famotidine (PEPCID) 20 mg tablet 5-06 00:00: 00 04-30 00:00 :00 No [id number] 20mg Take 1 tablet by mouth 2 (two) times daily. [facility] montelukast 10 mg tablet 5-06 00:00: 00 04-30 00:00 :00 No [id number] 10mg Take 1 tablet by mouth daily. [facility] ondansetron 4 mg disintegrat ing tablet 3-19 00:00: 00 03-12 00:00 :00 No [id number] 4mg Take 1 tablet by mouth every 8 (eight) hours as needed for Nausea and Vomiting (N/V). [facility] dicyclomine (BENTYL) 10 mg capsule 2-10 14:50: 58 Yes 10mg Take 10 mg by mouth 4 (four) times daily as needed for Abdominal pain. [facility] fluticasone propionate 50 mcg/actuati on nasal spray 1-22 00:00: 00 03-11 00:00 :00 No [id number] 1{spray } Use 1 [place] in each nostril daily. [facility] azelastine 137 mcg (0.1 %) nasal spray 09-27 00:00: 00 06-11 00:00 :00 No [id number] 1{spray } Use 1 [place] in each nostril 2 (two) times daily. Use in each nostril as directed [facility] EPINEPHrine 0.3 mg/0.3 mL injection 09-08 00:00: 00 06-28 00:00 :00 No [facility] risperiDONE (RISPERDAL) 3 mg tablet 2020-09 14:07: 54 07-22 00:00 :00 No 3mg Take 3 mg by mouth at bedtime. [facility] atorvastati n 20 mg tablet 03-29 00:00: 00 Yes TAKE 1 TABLET BY MOUTH EVERY DAY DIRECTED [facility] albuterol 90 mcg/actuati on inhaler 02-28 00:00: 00 03-11 00:00 :00 No [id number] 2{puff} Inhale 2 Puffs every 6 (six) hours as needed for Wheezing or Shortness of Breath. [facility] famotidine (PEPCID) 40 mg tablet 02-26 00:00: 00 10-16 00:00 :00 No [id number] 40mg Take 1 tablet by mouth daily. [facility] predniSONE 20 mg tablet 02-26 00:00: 00 03-18 00:00 :00 No [id number] TAKE ONE TABLET BY MOUTH DAILY [facility] lithium carbonate 300 mg capsule 02-26 00:00: 00 03-18 00:00 :00 No [facility] docusate 100 mg capsule 02-22 00:00: 00 11-14 00:00 :00 No [id number] 100mg Take 1 capsule by mouth 2 (two) times daily as needed for Constipati on. [facility] cyclobenzap rine 10 mg tablet 01-09 00:00: 00 Yes 10mg Take 10 mg by mouth at bedtime as needed for Muscle Spasms. [facility] meloxicam 15 mg tablet 01-09 00:00: 00 07-22 00:00 :00 No 15mg Take 15 mg by mouth daily. [facility] cetirizine 10 mg tablet -09 00:00: 00 04-11 00:00 :00 No 10mg Take 10 mg by mouth every morning. [facility] ondansetron 4 mg disintegrat ing tablet 09-28 00:00: 00 03-12 00:00 :00 No [id number] 4mg Take 1 tablet by mouth every 8 (eight) hours as needed for Nausea and Vomiting (N/V). [facility] acetaminoph en 500 mg tablet 2019-09 00:00: 00 06-27 00:00 :00 No 500mg Take 500 mg by mouth. [facility] traZODone 100 mg tablet 2019-09 00:00: 00 06-28 00:00 :00 No 100mg Take 100 mg by mouth at bedtime as needed for Insomnia. [facility] pantoprazol e 40 mg EC tablet 2019-09 00:00: 00 11-14 00:00 :00 No 40mg Take 40 mg by mouth daily. [facility] SUMAtriptan 25 mg tablet 2019-09 00:00: 00 Yes PLEASE SEE ATTACHED FOR DETAILED DIRECTIONS [facility] lamoTRIgine 100 mg tablet 2019-09 0 00:00: 00 03-11 00:00 :00 No 200mg Take 2 tablets by mouth every morning. [facility] topiramate 50 mg tablet 2019-09 0 00:00: 00 07-22 00:00 :00 No TAKE 1 TABLET (50 MG) BY ORAL ROUTE 1 TIMES PER DAY [facility] VENTOLIN HFA 90 mcg/actuati on inhaler 06-04 00:00: 03-11 00:00 :00 No INHALE ONE (1) PUFF(S) BY MOUTH EVERY FOUR HOURS. [facility] fluticasone propionate 50 mcg/actuati on nasal spray 06-04 00:00: 00 10-16 00:00 :00 No INSTILL ONE (1) SPRAY(S) INTO EACH NOSTRIL TWICE A DAY. [facility] proMETHazin e 25 mg tablet 02-26 00:00: 03-12 00:00 :00 No [id number] 25mg Take 1 tablet by mouth every 6 (six) hours as needed for Nausea and Vomiting (N/V). [facility] hydrOXYzine 25 mg capsule 2018-09 00:00: 03-11 00:00 :00 No 25mg Take 1 capsule by mouth 3 (three) times daily as needed for Itching. [facility] lisinopril 20 mg tablet 2018-09 00:00: 00 07-22 00:00 :00 No [facility] STELARA 45 mg/0.5 mL SC injection 2018-09 00:00: 00 Yes INJECT 45MG (1 SYRINGE) SUBCUTANEO USLY EVERY 8 WEEKS. [facility] Immunizations Ordered Immunization Name Filled Immunization Name Date Status Comments Source Influenza Virus Vaccine Quad .5 mL IM 6+ MO 2020-06-23 00:00:00 Completed [facility] Influenza Virus Vaccine Quad .5 mL IM 6+ MO 2020-06-23 00:00:00 Completed [facility] Influenza Virus Vaccine Quad .5 mL IM 6+ MO 2020-06-23 00:00:00 Completed [facility] Influenza Virus Vaccine Quad .5 mL IM 6+ MO 2020-06-23 00:00:00 Completed [facility] Influenza Virus Vaccine Quad .5 mL IM 6+ MO 2020-06-23 00:00:00 Completed [facility] Influenza Virus Vaccine Quad .5 mL IM 6+ MO 2020-06-23 00:00:00 Completed [facility] Influenza Virus Vaccine Quad .5 mL IM 6+ MO 2020-06-23 00:00:00 Completed [facility] Influenza Virus Vaccine Quad .5 mL IM 6+ MO 2020-06-23 00:00:00 Completed [facility] Influenza Virus Vaccine Quad .5 mL IM 6+ MO 2020-06-23 00:00:00 Completed [facility] Influenza Virus Vaccine Quad .5 mL IM 6+ MO 2020-06-23 00:00:00 Completed [facility] Influenza Virus Vaccine Quad .5 mL IM 6+ MO 2020-06-23 00:00:00 Completed [facility] Influenza Virus Vaccine Quad .5 mL IM 6+ MO 2020-06-23 00:00:00 Completed [facility] Influenza Virus Vaccine Quad .5 mL IM 6+ MO 2020-06-23 00:00:00 Completed [facility] Influenza Virus Vaccine Quad .5 mL IM 6+ MO 2020-06-23 00:00:00 Completed [facility] Influenza Virus Vaccine Quad .5 mL IM 6+ MO 2020-06-23 00:00:00 Completed [facility] Influenza Virus Vaccine Quad .5 mL IM 6+ MO 2020-06-23 00:00:00 Completed [facility] Influenza Virus Vaccine Quad .5 mL IM 6+ MO 2020-06-23 00:00:00 Completed [facility] Influenza Virus Vaccine Quad .5 mL IM 6+ MO 2020-06-23 00:00:00 Completed [facility] Influenza Virus Vaccine Quad .5 mL IM 6+ MO 2020-06-23 00:00:00 Completed [facility] Influenza Virus Vaccine Quad .5 mL IM 6+ MO 2020-06-23 00:00:00 Completed [facility] Influenza Virus Vaccine Quad .5 mL IM 6+ MO 2020-06-23 00:00:00 Completed [facility] Influenza Virus Vaccine Quad .5 mL IM 6+ MO 2020-06-23 00:00:00 Completed [facility] Influenza Virus Vaccine Quad .5 mL IM 6+ MO 2020-06-23 00:00:00 Completed [facility] Influenza Virus Vaccine Quad .5 mL IM 6+ MO 2020-06-23 00:00:00 Completed [facility] Influenza Virus Vaccine Quad .5 mL IM 6+ MO 2020-06-23 00:00:00 Completed [facility] Influenza Virus Vaccine Quad .5 mL IM 6+ MO 2020-06-23 00:00:00 Completed [facility] Influenza Virus Vaccine Quad .5 mL IM 6+ MO 2020-06-23 00:00:00 Completed [facility] Influenza Virus Vaccine Quad .5 mL IM 6+ MO 2020-06-23 00:00:00 Completed [facility] Influenza Virus Vaccine Quad .5 mL IM 6+ MO 2020-06-23 00:00:00 Completed [facility] Influenza Virus Vaccine Quad .5 mL IM 6+ MO 2020-06-23 00:00:00 Completed [facility] Influenza Virus Vaccine Quad .5 mL IM 6+ MO 2020-06-23 00:00:00 Completed [facility] Influenza Virus Vaccine Quad .5 mL IM 6+ MO 2020-06-23 00:00:00 Completed [facility] Influenza Virus Vaccine Quad .5 mL IM 6+ MO 2020-06-23 00:00:00 Completed [facility] Influenza Virus Vaccine Quad .5 mL IM 6+ MO (FLUZONE/FLULAVAL/F LUARIX) 2020-06-23 00:00:00 Completed [facility] Influenza Virus Vaccine Quad .5 mL IM 6+ MO (FLUZONE/FLULAVAL/F LUARIX) 2020-06-23 00:00:00 Completed [facility] Influenza Virus Vaccine 2019-08-06 00:00:00 Completed [facility] Influenza Virus Vaccine 2019-08-06 00:00:00 Completed [facility] Influenza Virus Vaccine 2019-08-06 00:00:00 Completed [facility] Influenza Virus Vaccine 2019-08-06 00:00:00 Completed [facility] Influenza Virus Vaccine 2019-08-06 00:00:00 Completed [facility] Influenza Virus Vaccine 2019-08-06 00:00:00 Completed [facility] Influenza Virus Vaccine 2019-08-06 00:00:00 Completed [facility] Influenza Virus Vaccine 2019-08-06 00:00:00 Completed [facility] Influenza Virus Vaccine 2019-08-06 00:00:00 Completed [facility] Influenza Virus Vaccine 2019-08-06 00:00:00 Completed [facility] Influenza Virus Vaccine 2019-08-06 00:00:00 Completed [facility] Influenza Virus Vaccine 2019-08-06 00:00:00 Completed [facility] Influenza Virus Vaccine 2019-08-06 00:00:00 Completed [facility] Influenza Virus Vaccine 2019-08-06 00:00:00 Completed [facility] Influenza Virus Vaccine 2019-08-06 00:00:00 Completed [facility] Influenza Virus Vaccine 2019-08-06 00:00:00 Completed [facility] Influenza Virus Vaccine 2019-08-06 00:00:00 Completed [facility] Influenza Virus Vaccine 2019-08-06 00:00:00 Completed [facility] Influenza Virus Vaccine 2019-08-06 00:00:00 Completed [facility] Influenza Virus Vaccine 2019-08-06 00:00:00 Completed [facility] Influenza Virus Vaccine 2019-08-06 00:00:00 Completed [facility] Influenza Virus Vaccine 2019-08-06 00:00:00 Completed [facility] Influenza Virus Vaccine 2019-08-06 00:00:00 Completed [facility] Influenza Virus Vaccine 2019-08-06 00:00:00 Completed [facility] Influenza Virus Vaccine 2019-08-06 00:00:00 Completed [facility] Influenza Virus Vaccine 2019-08-06 00:00:00 Completed [facility] Influenza Virus Vaccine 2019-08-06 00:00:00 Completed [facility] Influenza Virus Vaccine 2019-08-06 00:00:00 Completed [facility] Influenza Virus Vaccine 2019-08-06 00:00:00 Completed [facility] Influenza Virus Vaccine 2019-08-06 00:00:00 Completed [facility] Influenza Virus Vaccine 2019-08-06 00:00:00 Completed [facility] Influenza Virus Vaccine 2019-08-06 00:00:00 Completed [facility] Influenza Virus Vaccine 2019-08-06 00:00:00 Completed [facility] Influenza Virus Vaccine 2019-08-06 00:00:00 Completed [facility] Influenza Virus Vaccine 2019-08-06 00:00:00 Completed [facility] Influenza Virus Vaccine Unknown Completed [facility] Influenza Virus Vaccine Quad .5 mL IM 6+ MO (FLUZONE/FLULAVAL/F LUARIX) Unknown Completed [facility] Influenza Virus Vaccine Unknown Completed [facility] Influenza Virus Vaccine Quad .5 mL IM 6+ MO (FLUZONE/FLULAVAL/F LUARIX) Unknown Completed [facility] Influenza Virus Vaccine Unknown Completed [facility] Influenza Virus Vaccine Quad .5 mL IM 6+ MO (FLUZONE/FLULAVAL/F LUARIX) Unknown Completed [facility] Influenza Virus Vaccine Unknown Completed [facility] Influenza Virus Vaccine Quad .5 mL IM 6+ MO (FLUZONE/FLULAVAL/F LUARIX) Unknown Completed [facility] Influenza Virus Vaccine Unknown Completed [facility] Influenza Virus Vaccine Quad .5 mL IM 6+ MO (FLUZONE/FLULAVAL/F LUARIX) Unknown Completed [facility] Influenza Virus Vaccine Unknown Completed [facility] Influenza Virus Vaccine Quad .5 mL IM 6+ MO (FLUZONE/FLULAVAL/F LUARIX) Unknown Completed [facility] Influenza Virus Vaccine Unknown Completed [facility] Influenza Virus Vaccine Quad .5 mL IM 6+ MO (FLUZONE/FLULAVAL/F LUARIX) Unknown Completed [facility] Influenza Virus Vaccine Unknown Completed [facility] Influenza Virus Vaccine Quad .5 mL IM 6+ MO (FLUZONE/FLULAVAL/F LUARIX) Unknown Completed [facility] Influenza Virus Vaccine Unknown Completed [facility] Influenza Virus Vaccine Quad .5 mL IM 6+ MO (FLUZONE/FLULAVAL/F LUARIX) Unknown Completed [facility] Influenza Virus Vaccine Unknown Completed [facility] Influenza Virus Vaccine Quad .5 mL IM 6+ MO (FLUZONE/FLULAVAL/F LUARIX) Unknown Completed [facility] Influenza Virus Vaccine Unknown Completed [facility] Influenza Virus Vaccine Quad .5 mL IM 6+ MO (FLUZONE/FLULAVAL/F LUARIX) Unknown Completed [facility] Influenza Virus Vaccine Unknown Completed [facility] Influenza Virus Vaccine Quad .5 mL IM 6+ MO (FLUZONE/FLULAVAL/F LUARIX) Unknown Completed [facility] Influenza Virus Vaccine Unknown Completed [facility] Influenza Virus Vaccine Quad .5 mL IM 6+ MO (FLUZONE/FLULAVAL/F LUARIX) Unknown Completed [facility] Influenza Virus Vaccine Unknown Completed [facility] Influenza Virus Vaccine Quad .5 mL IM 6+ MO (FLUZONE/FLULAVAL/F LUARIX) Unknown Completed [facility] Influenza Virus Vaccine Unknown Completed [facility] Influenza Virus Vaccine Quad .5 mL IM 6+ MO (FLUZONE/FLULAVAL/F LUARIX) Unknown Completed [facility] Influenza Virus Vaccine Unknown Completed [facility] Influenza Virus Vaccine Quad .5 mL IM 6+ MO (FLUZONE/FLULAVAL/F LUARIX) Unknown Completed [facility] Influenza Virus Vaccine Unknown Completed [facility] Influenza Virus Vaccine Quad .5 mL IM 6+ MO (FLUZONE/FLULAVAL/F LUARIX) Unknown Completed [facility] Influenza Virus Vaccine Unknown Completed [facility] Influenza Virus Vaccine Quad .5 mL IM 6+ MO (FLUZONE/FLULAVAL/F LUARIX) Unknown Completed [facility] Influenza Virus Vaccine Unknown Completed [facility] Influenza Virus Vaccine Quad .5 mL IM 6+ MO (FLUZONE/FLULAVAL/F LUARIX) Unknown Completed [facility] Influenza Virus Vaccine Unknown Completed [facility] Influenza Virus Vaccine Quad .5 mL IM 6+ MO (FLUZONE/FLULAVAL/F LUARIX) Unknown Completed [facility] Influenza Virus Vaccine Unknown Completed [facility] Influenza Virus Vaccine Quad .5 mL IM 6+ MO (FLUZONE/FLULAVAL/F LUARIX) Unknown Completed [facility] Influenza Virus Vaccine Unknown Completed [facility] Influenza Virus Vaccine Quad .5 mL IM 6+ MO (FLUZONE/FLULAVAL/F LUARIX) Unknown Completed [facility] Influenza Virus Vaccine Unknown Completed [facility] Influenza Virus Vaccine Quad .5 mL IM 6+ MO (FLUZONE/FLULAVAL/F LUARIX) Unknown Completed [facility] Influenza Virus Vaccine Unknown Completed [facility] Influenza Virus Vaccine Quad .5 mL IM 6+ MO (FLUZONE/FLULAVAL/F LUARIX) Unknown Completed [facility] Vital Signs Vital Name Observation Time Observation Value Comments S ource Systolic blood pressure 2024-06-18 02:00:00 132 mm[Hg] [facility] Diastolic blood pressure 2024-06-18 02:00:00 73 mm[Hg] [facility] Heart rate 2024-06-18 02:00:00 82 /min [facility] Body temperature 2024-06-18 02:00:00 37.06 Lashawn [facility] Respiratory rate 2024-06-18 02:00:00 15 /min [facility] Oxygen saturation in Arterial blood by Pulse oximetry 2024-06-18 02:00:00 96 /min [facility] Body height 2024-06-17 21:41:00 160 cm [facility] Body weight 2024-06-17 21:41:00 66.679 kg [facility] BMI 2024-06-17 21:41:00 26.04 kg/m2 [facility] Systolic blood pressure 2024-04-11 17:32:00 118 mm[Hg] [facility] Diastolic blood pressure 2024-04-11 17:32:00 66 mm[Hg] [facility] Heart rate 2024-04-11 17:32:00 77 /[facility] 2024-04-11 17:32:00 16 /min [facility] Body height 2024-04-11 17:32:00 160 cm [facility] Body weight 2024-04-11 17:32:00 68.811 kg [facility] BMI 2024-04-11 17:32:00 26.87 kg/m2 [facility] Oxygen saturation in Arterial blood by Pulse oximetry 2024-04-11 17:32:00 100 /min [facility] Heart rate 2024-03-12 15:00:00 82 /min [facility] Oxygen saturation in Arterial blood by Pulse oximetry 2024-03-12 15:00:00 97 /min [facility] Systolic blood pressure 2024-03-12 13:00:00 141 mm[Hg] [facility] Diastolic blood pressure 2024-03-12 13:00:00 74 mm[Hg] [facility] Respiratory rate 2024-03-12 12:18:00 18 /min [facility] Body temperature 2024-03-12 12:16:00 36 Lashawn [facility] Body weight 2024-03-12 09:00:00 62.959 kg [facility] BMI 2024-03-12 09:00:00 24.59 kg/m2 [facility] Body height 2024-03-11 21:10:00 160 cm [facility] Systolic blood pressure 2023-12-10 15:40:00 134 mm[Hg] [facility] Diastolic blood pressure 2023-12-10 15:40:00 87 mm[Hg] [facility] Heart rate 2023-12-10 15:40:00 73 /min [facility] Respiratory rate 2023-12-10 15:40:00 18 /min [facility] Body height 2023-12-10 15:40:00 160 cm [facility] Body weight 2023-12-10 15:40:00 63.05 kg [facility] BMI 2023-12-10 15:40:00 24.62 kg/m2 [facility] Oxygen saturation in Arterial blood by Pulse oximetry 2023-12-10 15:40:00 99 /min [facility] Systolic blood pressure 2023-09-04 23:02:00 101 mm[Hg] [facility] Diastolic blood pressure 2023-09-04 23:02:00 79 mm[Hg] [facility] Heart rate 2023-09-04 23:02:00 77 /min [facility] Respiratory rate 2023-09-04 23:02:00 16 /min [facility] Oxygen saturation in Arterial blood by Pulse oximetry 2023-09-04 23:02:00 97 /min [facility] Body temperature 2023-09-04 19:21:00 37.89 Lashawn [facility] Body height 2023-09-04 19:20:00 160 [facility] 2023-09-04 19:20:00 61.689 kg [facility] BMI 2023-09-04 19:20:00 24.09 [facility]2 [facility] Sy[facility]olic [facility] 2023-06-11 16:32:00 125 mm[Hg] [facility] Diastolic blood pressure 2023-06-11 16:32:00 78 mm[Hg] [facility] Heart rate 2023-06-11 16:32:00 68 /min [facility] Respiratory rate 2023-06-11 16:32:00 18 /min [facility] Body height 2023-06-11 16:32:00 160 cm [facility] Body weight 2023-06-11 16:32:00 69.446 kg [facility] BMI 2023-06-11 16:32:00 27.12 kg/m2 [facility] Oxygen saturation in Arterial blood by Pulse oximetry 2023-06-11 16:32:00 99 /min [facility] Systolic blood pressure 2023-02-04 15:56:00 128 mm[Hg] [facility] Diastolic blood pressure 2023-02-04 15:56:00 84 mm[Hg] [facility] Heart rate 2023-02-04 15:56:00 112 /min [facility] Respiratory rate 2023-02-04 15:56:00 18 /min [facility] Body height 2023-02-04 15:56:00 160 cm [facility] Body weight 2023-02-04 15:56:00 87.544 kg [facility] BMI 2023-02-04 15:56:00 34.19 kg/m2 [facility] Oxygen saturation in Arterial blood by Pulse oximetry 2023-02-04 15:56:00 97 /min [facility] Systolic blood pressure 2023-01-02 14:49:00 140 mm[Hg] [facility] Diastolic blood pressure 2023-01-02 14:49:00 83 mm[Hg] [facility] Heart rate 2023-01-02 14:48:00 104 /min [facility] Body temperature 2023-01-02 14:48:00 37.5 Lashawn [facility] Respiratory rate 2023-01-02 14:48:00 17 /min [facility] Body height 2023-01-02 14:48:00 160 cm [facility] Body weight 2023-01-02 14:48:00 89.359 kg [facility] BMI 2023-01-02 14:48:00 34.90 kg/m2 [facility] Oxygen saturation in Arterial blood by Pulse oximetry 2023-01-02 14:48:00 98 /min [facility] Systolic blood pressure 2022-12-07 18:30:00 165 mm[Hg] [facility] Diastolic blood pressure 2022-12-07 18:30:00 108 mm[Hg] [facility] Heart rate 2022-12-07 18:30:00 110 /min [facility] Respiratory rate 2022-12-07 18:30:00 17 /min [facility] Oxygen saturation in Arterial blood by Pulse oximetry 2022-12-07 18:30:00 98 /min [facility] Body temperature 2022-12-07 17:17:00 38.17 Lashawn [facility] Body height 2022-12-07 17:10:00 162.6 cm [facility] Body weight 2022-12-07 17:10:00 87.544 kg [facility] BMI 2022-12-07 17:10:00 33.13 kg/m2 [facility] Systolic blood pressure 2022-11-26 16:28:00 133 mm[Hg] [facility] Diastolic blood pressure 2022-11-26 16:28:00 86 mm[Hg] [facility] Heart rate 2022-11-26 16:26:00 99 /min [facility] Respiratory rate 2022-11-26 16:26:00 18 /min [facility] Body height 2022-11-26 16:26:00 157.5 cm [facility] Body weight 2022-11-26 16:26:00 87.544 kg [facility] BMI 2022-11-26 16:26:00 35.30 kg/m2 [facility] Oxygen saturation in Arterial blood by Pulse oximetry 2022-11-26 16:26:00 97 /min [facility] Systolic blood pressure 2022-11-12 16:25:00 151 mm[Hg] [facility] Diastolic blood pressure 2022-11-12 16:25:00 92 mm[Hg] [facility] Heart rate 2022-11-12 16:25:00 95 /min [facility] Oxygen saturation in Arterial blood by Pulse oximetry 2022-11-12 16:25:00 97 /min [facility] Body temperature 2022-11-12 16:23:00 36.5 Lashawn [facility] Respiratory rate 2022-11-12 16:23:00 18 /min [facility] Body height 2022-11-12 16:23:00 157.5 cm [facility] Body weight 2022-11-12 16:23:00 85.639 kg [facility] BMI 2022-11-12 16:23:00 34.53 kg/m2 [facility] Systolic blood pressure 2022-11-10 15:41:00 134 mm[Hg] [facility] Diastolic blood pressure 2022-11-10 15:41:00 83 mm[Hg] [facility] Heart rate 2022-11-10 15:41:00 102 /min [facility] Body temperature 2022-11-10 15:41:00 37.39 Lashawn [facility] Respiratory rate 2022-11-10 15:41:00 18 /min [facility] Body height 2022-11-10 15:41:00 157.5 cm [facility] Body weight 2022-11-10 15:41:00 86.212 kg [facility] BMI 2022-11-10 15:41:00 34.76 kg/m2 [facility] Oxygen saturation in Arterial blood by Pulse oximetry 2022-11-10 15:41:00 100 /min [facility] Heart rate 2022-11-05 14:46:00 90 /min [facility] Body temperature 2022-11-05 14:46:00 36.56 Lashawn [facility] Respiratory rate 2022-11-05 14:46:00 18 /min [facility] Body height 2022-11-05 14:46:00 157.5 cm [facility] Body weight 2022-11-05 14:46:00 86.274 kg [facility] BMI 2022-11-05 14:46:00 34.79 kg/m2 [facility] Oxygen saturation in Arterial blood by Pulse oximetry 2022-11-05 14:46:00 98 /min [facility] Systolic blood pressure 2022-11-05 14:46:00 136 mm[Hg] [facility] Diastolic blood pressure 2022-11-05 14:46:00 88 mm[Hg] [facility] Systolic blood pressure 2022-09-27 11:30:00 161 mm[Hg] [facility] Diastolic blood pressure 2022-09-27 11:30:00 85 mm[Hg] [facility] Heart rate 2022-09-27 11:30:00 116 /min [facility] Respiratory rate 2022-09-27 11:30:00 19 /min [facility] Oxygen saturation in Arterial blood by Pulse oximetry 2022-09-27 11:30:00 95 /min [facility] Body temperature 2022-09-27 07:27:00 38 Lashawn [facility] Body weight 2022-09-27 07:00:00 90.719 kg [facility] BMI 2022-09-27 07:00:00 33.28 kg/m2 [facility] Systolic blood pressure 2022-09-20 03:00:00 130 mm[Hg] [facility] Diastolic blood pressure 2022-09-20 03:00:00 65 mm[Hg] [facility] Heart rate 2022-09-20 03:00:00 106 /min [facility] Respiratory rate 2022-09-20 03:00:00 21 /min [facility] Oxygen saturation in Arterial blood by Pulse oximetry 2022-09-20 03:00:00 94 /min [facility] Body temperature 2022-09-20 00:10:00 37.94 Lashawn [facility] Body height 2022-09-20 00:10:00 165.1 cm [facility] Body weight 2022-09-20 00:10:00 87.544 kg [facility] BMI 2022-09-20 00:10:00 32.12 kg/m2 [facility] Systolic blood pressure 2022-09-11 14:52:00 143 mm[Hg] [facility] Diastolic blood pressure 2022-09-11 14:52:00 83 mm[Hg] [facility] Heart rate 2022-09-11 14:52:00 98 /min [facility] Body temperature 2022-09-11 14:52:00 36.94 Lashawn [facility] Respiratory rate 2022-09-11 14:52:00 20 /min [facility] Body height 2022-09-11 14:52:00 160 cm [facility] Body weight 2022-09-11 14:52:00 87.544 kg [facility] BMI 2022-09-11 14:52:00 34.19 kg/m2 [facility] Oxygen saturation in Arterial blood by Pulse oximetry 2022-09-11 14:52:00 98 /min [facility] Heart rate 2022-08-29 04:25:00 93 /min [facility] Respiratory rate 2022-08-29 04:25:00 21 /min [facility] Oxygen saturation in Arterial blood by Pulse oximetry 2022-08-29 04:25:00 95 /min [facility] Systolic blood pressure 2022-08-29 04:00:00 140 mm[Hg] [facility] Diastolic blood pressure 2022-08-29 04:00:00 76 mm[Hg] [facility] Body temperature 2022-08-29 02:57:00 37.56 Lashawn [facility] Body height 2022-08-29 02:57:00 160 cm [facility] Body weight 2022-08-29 02:57:00 83.008 kg [facility] BMI 2022-08-29 02:57:00 32.42 kg/m2 [facility] Systolic blood pressure 2022-08-17 15:45:00 142 mm[Hg] [facility] Diastolic blood pressure 2022-08-17 15:45:00 92 mm[Hg] [facility] Heart rate 2022-08-17 15:45:00 84 /min [facility] Body weight 2022-08-17 15:45:00 81.33 kg [facility] 2022-08-17 15:45:00 31.76 kg/m2 [facility] Oxygen saturation in Arterial blood by Pulse oximetry 2022-08-17 15:45:00 96 /min [facility] Body temperature 2022-08-15 22:00:00 36.33 Lashawn [facility] Heart rate 2022-08-15 13:50:00 99 /min [facility] Respiratory rate 2022-08-15 13:50:00 18 /min [facility] Oxygen saturation in Arterial blood by Pulse oximetry 2022-08-15 13:50:00 96 /min [facility] Systolic blood pressure 2022-08-15 10:00:00 130 mm[Hg] [facility] Diastolic blood pressure 2022-08-15 10:00:00 74 mm[Hg] [facility] Body weight 2022-08-14 19:19:00 82.555 kg [facility] BMI 2022-08-14 19:19:00 32.24 [facility]2 [facility] Sy[facility] 2022-07-22 15:15:00 135 mm[Hg] [facility] Diastolic blood pressure 2022-07-22 15:15:00 81 mm[Hg] [facility] Heart rate 2022-07-22 15:15:00 97 /min [facility] Body weight 2022-07-22 15:15:00 82.555 kg [facility] BMI 2022-07-22 15:15:00 32.24 kg/m2 [facility] Oxygen saturation in Arterial blood by Pulse oximetry 2022-07-22 15:15:00 98 /min [facility] Systolic blood pressure 2022-06-28 16:00:00 130 mm[Hg] [facility] Diastolic blood pressure 2022-06-28 16:00:00 62 mm[Hg] [facility] Heart rate 2022-06-28 16:00:00 100 /min [facility] Body temperature 2022-06-28 16:00:00 36.22 Lashawn [facility] Respiratory rate 2022-06-28 16:00:00 9 /min [facility] Oxygen saturation in Arterial blood by Pulse oximetry 2022-06-28 16:00:00 95 /min [facility] Body weight 2022-06-28 09:00:00 87.499 kg [facility] BMI 2022-06-28 09:00:00 34.17 kg/m2 [facility] Body height 2022-06-28 00:00:00 160 cm [facility] Systolic blood pressure 2022-06-25 14:10:00 131 mm[Hg] [facility] Diastolic blood pressure 2022-06-25 14:10:00 89 mm[Hg] [facility] Heart rate 2022-06-25 14:10:00 82 /min [facility] Body weight 2022-06-25 14:10:00 83.598 kg [facility] BMI 2022-06-25 14:10:00 32.65 kg/m2 [facility] Oxygen saturation in Arterial blood by Pulse oximetry 2022-06-25 14:10:00 97 /min [facility] Systolic blood pressure 2022-05-28 14:40:00 124 mm[Hg] [facility] Diastolic blood pressure 2022-05-28 14:40:00 76 mm[Hg] [facility] Heart rate 2022-05-28 14:40:00 83 /min [facility] Body weight 2022-05-28 14:40:00 84.687 kg [facility] BMI 2022-05-28 14:40:00 33.07 kg/m2 [facility] Oxygen saturation in Arterial blood by Pulse oximetry 2022-05-28 14:40:00 96 /min [facility] Systolic blood pressure 2022-04-30 14:11:00 119 mm[Hg] [facility] Diastolic blood pressure 2022-04-30 14:11:00 79 mm[Hg] [facility] Heart rate 2022-04-30 14:11:00 83 /min [facility] Body temperature 2022-04-30 14:11:00 36.94 Lsahawn [facility] Respiratory rate 2022-04-30 14:11:00 18 /min [facility] Body height 2022-04-30 14:11:00 160 cm [facility] Body weight 2022-04-30 14:11:00 81.784 kg [facility] BMI 2022-04-30 14:11:00 31.94 kg/m2 [facility] Oxygen saturation in Arterial blood by Pulse oximetry 2022-04-30 14:11:00 97 /min [facility] Procedures Procedure Date / Time Performed Performing Clinician Source CRITICAL CARE 2024-06-17 21:37:00 Ana Castillo [facility] BASIC METABOLIC PANEL (NA, K, CL, CO2, GLUCOSE, BUN, CREATININE, CA) 2024-03-12 11:16:00 Matilde Diego [facility] CBC WITH DIFF 2024-03-12 11:16:00 Matilde Diego [facility] COMP. METABOLIC PANEL ([id number]) 2024-03-12 01:36:00 Ronen Bettencourt [facility] CBC WITH DIFF 2024-03-12 01:36:00 [facility]AST 2023-09-04 20:03:32 Deborah Winslow [facility] URINALYSIS 2023-09-04 19:41:00 Deborah Winslow [facility] POCT TEST 2023-09-04 19:40:00 Minor Winslow [facility] CONSENT/REFUSAL FOR DIAGNOSIS AND TREATMENT 2023-09-04 19:14:02 Doctor Unassigned, [place] [facility] XR CHEST 2 VW 2023-01-02 15:11:00 Paige Jones [facility] CONSENT/REFUSAL FOR DIAGNOSIS AND TREATMENT 2022-12-07 17:05:24 Doctor Unassigned, [place] [facility] CONSENT/REFUSAL FOR DIAGNOSIS AND TREATMENT 2022-11-26 15:30:32 Doctor Unassigned, [place] [facility] DISCLOSURE AND CONSENT, MEDICAL AND SURGICAL PROCEDURES 2022-11-12 06:01:00 Doctor Unassigned, [place] [facility] XR HAND 3+ VW RIGHT 2022-11-10 15:55:44 Sherly Jones [facility] PATIENT FINANCIAL POLICY 2022-11-05 14:24:59 Doctor Unassigned, [place] [facility] EMERGENCY DEPARTMENT DOCUMENTS 2022-10-15 06:01:00 Doctor Unassigned, [place] [facility] XR CHEST 1 VW 2022-09-27 07:30:00 Morgan Vargas [facility] COMP. METABOLIC PANEL ([id number]) 2022-09-20 00:35:00 Meng Galicia [facility] CBC WITH DIFF 2022-09-20 00:35:00 Meng Galicia [facility] CT ABDOMEN PELVIS W CONTRAST 2022-08-29 03:21:00 Amnada Power [facility] LIPASE 2022-08-29 03:00:00 Amanda Power Un [facility] MAGNESIUM 2022-08-29 03:00:00 Amanda Power [facility] COMP. METABOLIC PANEL ([id number]) 2022-08-29 03:00:00 Amanda Power [facility] CBC WITH DIFF 2022-08-29 03:00:00 [facility] 2022-08-29 03:00:00 [facility] NOTICE OF PRIVACY PRACTICES 2022-08-29 02:51:00 Doctor Unassigned, [place] [facility] CONSENT/REFUSAL FOR DIAGNOSIS AND TREATMENT 2022-08-29 02:49:23 Doctor Unassigned, [place] [facility] LACTIC ACID WHOLE BLOOD 2022-08-15 18:33:00 Ina Klein [facility] TEST, SERUM 2022-08-14 19:48:00 Jarrod Levy [facility] COMP. METABOLIC PANEL ([id number]) 2022-08-14 19:48:00 Frandy Levy [facility] CBC WITH DIFF 2022-08-14 19:48:00 Frandy Levy [facility] PROTHROMBIN TIME / INR 2022-08-14 19:48:00 Av Levy [facility] ACTIVATED PARTIAL THRMPLAS NKECHI 2022-08-14 19:48:00 Frandy Levy [facility] LACTIC ACID WHOLE BLOOD 2022-08-14 19:48:00 Dago Levy [facility] CRITICAL CARE 2022-08-14 19:11:00 Frandy Levy [facility] XR CHEST 2 VW 2022-06-27 19:48:40 Genaro Eubanks [facility] TEST, SERUM 2022-06-27 19:44:00 Genaro Eubanks [facility] THYROID STIMULATING HORMONE 2022-06-27 19:44:00 Nancy Brar [facility] COMP. METABOLIC PANEL ([id number]) 2022-06-27 19:44:00 Genaro Eubanks [facility] CBC WITH DIFF 2022-06-27 19:44:00 Genaro Eubanks [facility] RAPID INFLUENZA A/B 2022-06-27 19:44:00 Genaro Eubanks [facility] RAPID RSV 2022-06-27 19:44:00 Vasut, Genaro [facility] COVID-19 (ID NOW RAPID TESTING) 2022-06-27 19:44:00 Genaro Eubanks [facility] Encounters Start Date/Time End Date/Time Encounter Type Admission Type Attending Clinicians Care Facility Care Department Encounter ID Source 2021-07-08 07:14:58 Emergency [facility] [id number] [facility] 2021-07-07 03:24:43 Emergency [facility] [id number] [facility] 2021-07-06 23:03:57 Inpatient R MARIUM DAWSON [facility] [id number] [facility] 2021-07-05 19:04:39 Emergency [facility] [id number] [facility] 2021-07-04 23:32:26 Emergency [facility] [id number] [facility] 2021-07-03 22:25:44 Emergency [facility] [id number] [facility] 2024-06-28 11:06:52 2024-06-28 11:06:[address] [facility] [id number] Terrence Campuzano 2024-06-17 16:44:00 2024-06-17 21:15:00 Emergency X ANA CASTILLO [facility] ERT [id number] [facility] 2024-06-17 16:44:00 2024-06-17 21:15:00 Emergency nAa Castillo [facility] [id number] [facility] 2024-06-06 00:00:00 2024-06-06 10:35:06 Specialty Pharmacy Jane Angeles Monique [facility] [id number] [facility] 2024-05-30 00:00:00 2024-05-30 12:34:04 Specialty Pharmacy Alysa Sprague Raven [facility] [id number] [facility] 2024-05-30 00:00:00 2024-05-30 11:55:21 Specialty Pharmacy Alysa Sprague Raven [facility] 1.2.840.114 350.1.13.10 4.2.7.2.686 [id number] [facility] 2024-05-09 08:18:51 2024-05-09 08:18:51 Outpatient [facility] [id number] Terrence Campuzano 2024-05-03 00:00:00 2024-05-03 09:54:46 Telephone Darcie Alysa Sprague Alysa [facility] 1.2.840.114 350.1.13.10 4.2.7.2.686 [id number] [facility] 2024-04-29 00:00:00 2024-04-29 12:08:47 Specialty Pharmacy Jocelyn Batista Tamara L [facility] 1.2.840.114 350.1.13.10 4.2.7.2.686 [id number] [facility] 2024-04-14 00:00:00 2024-04-14 08:33:42 Patient Secure MsCatrachita Knight [facility]TY [facility] 1.2.840.114 350.1.13.10 4.2.7.2.686 [id number] [id number] [facility] 2024-04-11 13:45:00 2024-04-11 14:00:00 Fish And Wildlife Warden Visit Vtc-Lab [facility] MULTISPEC [facility]TY [facility]ENTER [facility] 1.2.840.114 350.1.13.10 4.2.7.2.686 [id number] [facility] 2024-04-11 12:30:00 2024-04-11 13:21:55 Outpatient CATRACHITA LUNA [facility] [id number] [facility] 2024-04-11 12:30:00 2024-04-11 13:21:55 Office Visit Catrachita Mercado [facility] 1..114 350.1.13.10 4.2.7.2.686 [id number] [id number] [facility] 2024-03-29 00:00:00 2024-03-30 11:06:18 Telephone Radha Adams [facility] 1.84.114 350.1.13.10 4.2.7.2.686 [id number] [facility] 2024-03-21 13:00:00 2024-03-21 13:00:00 Outpatient CATRACHITA LUNA [facility] [id number] [facility] 2024-03-14 00:00:00 2024-03-14 14:56:25 Transition of Care Omer Marley HARRELL 1.840.114 350.1.13.10 4.2.7.2.686 [id number] [facility] 2024-03-14 13:00:00 2024-03-14 13:00:00 Outpatient CATRACHITA LUNA [facility] [id number] [facility] 2024-03-11 15:59:00 2024-03-12 11:09:00 Outpatient MATILDE KAY [facility] [id number] [facility] 2024-03-11 15:59:00 2024-03-12 11:09:00 Emergency Amanda Power Jelani [facility] 1.840.114 350.1.13.10 4.2.7.2.686 [id number] [facility] 2024-01-26 00:00:00 2024-02-26 18:16:54 Patient Secure Msg Doctor Unassigned, [place] [facility] ([facility]) 1.2.840.114 350.1.13.10 4.2.7.2.686 [id number] [facility] 2024-02-21 00:00:00 2024-02-21 10:38:14 Telephone [facility] ([facility]) 1.2.840.114 350.1.13.10 4.2.7.2.686 [id number] [facility] 2024-02-01 08:05:32 2024-02-01 08:05:[address] [facility] [id number] Terrence Velasco Justen 2024-01-26 00:00:00 2024-01-28 08:46:48 Catrachita Robertson [facility] 1.2.840.114 350.1.13.10 4.2.7.2.686 [id number] [facility] 2024-01-26 00:00:00 2024-01-26 11:11:01 Telephone Adams [facility] ([facility]) 1.2.840.114 350.1.13.10 4.2.7.2.686 [id number] [id number] [facility] 2023-12-28 00:00:00 2023-12-28 00:00:00 Telephone Bryan [facility] ([facility]) 1.2.840.114 350.1.13.10 4.2.7.2.686 [id number] [id number] [facility] 2023-12-10 11:45:00 2023-12-10 12:00:00 Fish And Wildlife Warden Visit Vtc-Lab Catrachita Mercado [facility] 1..840.114 350.1.13.10 4.2.7.2.686 [id number] [facility] 2023-12-10 11:00:00 2023-12-10 11:33:42 Outpatient R CATRACHITA MERCADO [facility] [id number] [facility] 2023-12-10 11:00:00 2023-12-10 11:33:42 Office Visit Catrachita Mercado [facility] IAY [facility] 1..840.114 350.1.13.10 4.2.7.2.686 [id number] [facility] 2023-09-04 13:25:00 2023-09-04 17:12:00 Emergency X DEBORAH WINSLOW [facility] ERT [id number] [facility] 2023-09-04 13:25:00 2023-09-04 17:12:00 Emergency Deborah Winslow [facility] 1.2.840.114 350.1.13.10 4.2.7.2.686 [id number] [facility] 2023-07-14 10:51:11 2023-07-14 10:51:11 Outpatient [facility] [id number] Terrence Campuzano 2023-07-03 00:00:00 2023-07-03 00:00:00 Outpatient GC_GCBZW_Ka diyala_S [facility] [id number] [facility] 2023-06-11 11:30:00 2023-06-11 12:44:12 Outpatient CATRACHITA LUNA [facility] [id number] [facility] 2023-06-11 11:30:00 2023-06-11 12:44:12 Office [facility] 1.2840.114 350.1.13.10 4.2.7.2.686 [id number] [facility] 2023-05-28 09:22:17 2023-05-28 09:22:17 Outpatient SFA SFA [id number] Terrence Campuzano 2023-05-05 00:00:00 2023-05-05 00:00:00 Patient Secure Msg JessIsabelCatrachita [facility] 1.2840.114 350.1.13.10 4.2.7.2.686 [id number] [facility] 2023-03-29 15:16:53 2023-03-29 15:16:[address] [facility] [id number] Terrence Campuzano 2023-02-16 00:00:00 2023-02-16 00:00:00 Patient Secure Jess Catrachita [facility] IAY [facility] 1.2840.114 350.1.13.10 4.2.7.2.686 [id number] [facility] 2023-02-11 00:00:00 2023-02-11 00:00:00 Telephone Catrachita Mercado [facility] IAY [facility] 1.840.114 350.1.13.10 4.2.7.2.686 [id number] [id number] [facility] 2023-02-04 12:00:00 2023-02-04 12:15:00 Fish And Wildlife Warden Visit Vtc-Lab Catrachita Mercado [facility] 1.2840.114 350.1.13.10 4.2.7.2.686 [id number] [facility] 2023-02-04 11:30:00 2023-02-04 11:39:11 Outpatient R CATRACHITA MERCADO [facility] [id number] [facility] 2023-02-04 11:30:00 2023-02-04 11:39:11 Office Visit Catrachita Mercado [facility] 1..114 350.1.13.10 4.2.7.2.686 [id number] [facility] 2023-02-03 11:00:28 2023-02-03 11:00:28 Outpatient SFA SFA [id number] Terrence Campuzano 2023-01-13 10:31:00 2023-01-13 10:31:00 Outpatient SFA SFA [id number] Terrence Campuzano 2023-01-02 09:55:10 2023-01-02 23:59:00 Outpatient R TRACI JONESAlfredoChema [facility] [id number] [facility] 2023-01-02 09:55:10 2023-01-02 23:59:00 Hospital Encounter Paige [facility] 1.84.114 350.1.13.10 4.2.7.2.686 [id number] [facility] 2023-01-02 10:00:00 2023-01-02 10:01:10 Urgent Care Paige Jones Unknown, Attending [facility] 1.84.114 350.1.13.10 4.2.7.2.686 [id number] [facility] 2022-12-07 12:06:00 2022-12-07 13:56:00 Emergency X AMANDA MCKEON [facility] ERT [id number] [facility] 2022-12-07 12:06:00 2022-12-07 13:56:00 Emergency Amanda Mckeon [facility] 1.840.114 350.1.13.10 4.2.7.2.686 [id number] [facility] 2022-11-26 10:45:00 2022-11-26 11:35:16 Outpatient R RACHNA BUSH [facility] [id number] [facility] 2022-11-26 10:45:00 2022-11-26 11:35:16 Office Visit Rachna Bush [facility] 1.84.114 350.1.13.10 4.2.7.2.686 [id number] [facility] 2022-11-26 00:00:00 2022-11-26 00:00:00 Orders Only Doctor Unassigned, [place] [facility] 1.2840.114 350.1.13.10 4.2.7.2.686 [id number] [facility] 2022-11-12 14:00:00 2022-11-12 14:00:00 Outpatient R RACHNA BUSH [facility] [id number] [facility] 2022-11-12 10:00:00 2022-11-12 11:16:39 Outpatient R RACHNA BUSH [facility] [id number] [facility] 2022-11-12 10:00:00 2022-11-12 11:16:39 Office Visit Rachna Bush [facility] 1.840.114 350.1.13.10 4.2.7.2.686 [id number] [facility] 2022-11-12 00:00:00 2022-11-12 00:00:00 Orders Only Doctor Unassigned, [place] [facility] 1.2840.114 350.1.13.10 4.2.7.2.686 [id number] [facility] 2022-11-10 09:48:22 2022-11-10 23:59:00 Outpatient R PAIGE JONES [facility] [id number] [facility] 2022-11-10 09:48:22 2022-11-10 23:59:00 Hospital Encounter [facility] 1.84.114 350.1.13.10 4.2.7.2.686 [id number] [facility] 2022-11-10 09:20:00 2022-11-10 09:55:29 Urgent Care Paige Jones Unknown, Attending [facility] 1.114 350.1.13.10 4.2.7.2.686 [id number] [facility] 2022-11-05 09:00:00 2022-11-05 09:37:01 Outpatient R RACHNA BUSH [facility] [id number] [facility] 2022-11-05 09:00:00 2022-11-05 09:37:01 Office Visit Rachna Bush [facility] 1.114 350.1.13.10 4.2.7.2.686 [id number] [facility] 2022-11-05 00:00:00 2022-11-05 00:00:00 Orders Only Doctor Unassigned, [place] [facility] 1..114 350.1.13.10 4.2.7.2.686 [id number] [facility] 2022-10-15 00:00:00 2022-10-15 00:00:00 Orders Only Doctor Unassigned, [place] [facility] 1.0.114 350.1.13.10 4.2.7.2.686 [id number] [facility] 2022-09-27 00:57:00 2022-09-27 05:55:00 Emergency X MORGAN VARGAS [facility] ERT [id number] [facility] 2022-09-27 00:57:00 2022-09-27 05:55:00 Emergency Morgan Vargas [facility] 1.2.840.114 350.1.13.10 4.2.7.2.686 [id number] [facility] 2022-09-19 18:05:00 2022-09-19 21:16:00 Emergency MENG QUIROS [facility] ERT [id number] [facility] 2022-09-19 18:05:00 2022-09-19 21:16:00 Emergency Meng Galicia [facility] 1.2840.114 350.1.13.10 4.2.7.2.686 [id number] [facility] 2022-09-11 10:00:00 2022-09-11 10:15:00 Fish And Wildlife Warden Visit Vtc-Lab Catrachita Mercado [facility] 1.2840.114 350.1.13.10 4.2.7.2.686 [id number] [facility] 2022-09-11 10:00:00 2022-09-11 10:00:00 Outpatient CATRACHITA LUNA [facility] [id number] [facility] 2022-09-11 09:00:00 2022-09-11 09:56:11 Office Visit Catrachita Mercado [facility] 1.2.114 350.1.13.10 4.2.7.2.686 [id number] [facility] 2022-09-10 09:30:00 2022-09-10 09:30:00 Outpatient CATRACHITA LUNA [facility] [id number] [facility] 2022-09-07 00:00:00 2022-09-07 00:00:00 Telephone Catrachita Mercado [facility] IAY [facility] 1.114 350.1.13.10 4.2.7.2.686 [id number] [facility] 2022-08-28 20:52:00 2022-08-28 22:35:00 Emergency X AMANDA POWER [facility] ERT [id number] [facility] 2022-08-28 20:52:00 2022-08-28 22:35:00 Emergency Amanda Power [facility] 1..114 350.1.13.10 4.2.7.2.686 [id number] [facility] 2022-08-17 10:00:00 2022-08-17 10:30:00 Nurse Visit Nurse, Vtc Int Med Allergy Lorene Roman Juárez [facility] 1.114 350.1.13.10 4.2.7.2.686 [id number] [facility] 2022-08-17 10:00:00 2022-08-17 10:00:00 Outpatient LORENE FARMER [facility] [id number] [facility] 2022-08-17 00:00:00 2022-08-17 00:00:00 Transition of Care Marley Tello 1..114 350.1.13.10 4.2.7.2.686 [id number] [facility] 2022-08-17 00:00:00 2022-08-17 00:00:00 Patient Secure Msg Doctor Unassigned, [place] [facility] 1..114 350.1.13.10 4.2.7.2.686 [id number] [facility] 2022-08-14 13:24:00 2022-08-15 17:15:00 Inpatient Prince ELIEZER KLEIN [facility] [id number] [facility] 2022-08-14 13:24:00 2022-08-15 17:15:00 Hospital Encounter CamFrandy David [facility] 1..114 350.1.13.10 4.2.7.2.686 [id number] [facility] 2022-08-14 00:00:00 2022-08-14 00:00:00 Catrachita Robertson [facility]AY [facility] 1.114 350.1.13.10 4.2.7.2.686 [id number] [facility] 2022-07-22 09:30:00 2022-07-22 10:00:00 Nurse Visit Nurse, Vtc Int Med Allergy Lorene Roman [facility] 1.114 350.1.13.10 4.2.7.2.686 [id number] [facility] 2022-07-22 09:30:00 2022-07-22 09:30:00 Outpatient R LORENE ROMAN [facility] [id number] [facility] 2022-06-30 00:00:00 2022-06-30 00:00:00 Transition of Care Marley Tello 1..114 350.1.13.10 4.2.7.2.686 [id number] [facility] 2022-06-29 00:00:00 2022-06-29 00:00:00 Patient Secure Msg Doctor Unassigned, [place] [facility] 1..114 350.1.13.10 4.2.7.2.686 [id number] [facility] 2022-06-27 13:49:00 2022-06-28 13:32:00 Outpatient Prince ELIEZER KLEIN [facility] [id number] [facility] 2022-06-27 13:49:00 2022-06-28 13:32:00 Emergency Vasut, Eliezer John [facility] 1..114 350.1.13.10 4.2.7.2.686 [id number] [facility] 2022-06-25 09:30:00 2022-06-25 10:00:00 [facility] 1.114 350.1.13.10 4.2.7.2.686 [id number] [facility] 2022-06-25 09:30:00 2022-06-25 09:30:00 Outpatient CATRACHITA LUNA [facility] [id number] [facility] 2022-05-28 10:00:00 2022-05-28 10:30:00 Nurse Visit Nurse[facility] Jess Catrachita [facility] MULTISPEC [facility]TY CENTER [facility] 1.114 350.1.13.10 4.2.7.2.686 [id number] [facility] 2022-05-28 10:00:00 2022-05-28 10:00:00 Outpatient CATRACHITA LUNA [facility] [id number] [facility] 2022-05-13 00:00:00 2022-05-13 00:00:00 Telephone Danyel White [facility] ([facility] 1.114 350.1.13.10 4.2.7.2.686 [id number] [facility] 2022-04-30 09:30:00 2022-04-30 10:06:23 Outpatient R CATRACHITA MERCADO [facility] [id number] [facility] 2022-04-30 09:30:00 2022-04-30 10:06:23 Office [facility] 1..114 350.1.13.10 4.2.7.2.686 [id number] [facility] 2022-04-30 09:30:00 2022-04-30 10:06:23 Outpatient R CATRACHITA MERCADO [facility] [id number] [facility] 2022-04-23 00:00:00 2022-04-23 00:00:00 Refill Catrachita Mercado [facility] IALTY [facility] 1..114 350.1.13.10 4.2.7.2.686 [id number] [facility] 2022-04-02 00:00:00 2022-04-02 00:00:00 Telephone [facility]ita [facility] 1.114 350.1.13.10 4.2.7.2.686 [id number] [facility] 2022-03-30 13:00:00 2022-03-30 15:10:07 Outpatient R LORENE ROMAN [facility] [id number] [facility] 2022-03-30 13:00:00 2022-03-30 15:10:07 Nurse Visit [facility] 1.114 350.1.13.10 4.2.7.2.686 [id number] [facility] 2022-03-05 09:00:00 2022-03-05 09:57:41 Outpatient LORENE FARMER [facility] [id number] [facility] 2022-03-05 09:00:00 2022-03-05 09:57:41 Nurse Visit Nurse, [facility] Med Allergy [facility] M[facility]ISPEC [facility] 1.114 350.1.13.10 4.2.7.2.686 [id number] [facility] 2022-02-04 09:00:00 2022-02-04 09:30:00 Nurse Visit Nurse, [facility] 1.114 350.1.13.10 4.2.7.2.686 [id number] [facility] 2022-02-04 09:00:00 2022-02-04 09:00:00 [facility] [id number] [facility] 2022-01-29 00:00:00 2022-01-29 00:00:00 [facility]achita Robertson [facility] 1.114 350.1.13.10 4.2.7.2.686 [id number] [facility] 2022-01-27 00:00:00 2022-01-27 00:00:00 Rosio Trejo [facility] TATYANA PHILLIPS?TYLERMaciej [facility] 1..114 350.1.13.10 4.2.7.2.686 [id number] [facility] 2022-01-09 08:30:00 2022-01-09 11:32:35 Outpatient CATRACHITA LUNA [facility] [id number] [facility] 2022-01-09 08:30:00 2022-01-09 11:32:35 Office Visit [facility]achita Merc[facility] 1.2.840.114 350.1.13.10 4.2.7.2.686 [id number] [facility] 2022-01-05 00:00:00 2022-01-05 00:00:00 Telephone Catrachita Mercado [facility] 1.2.840.114 350.1.13.10 4.2.7.2.686 [id number] [facility] 2021-12-11 09:00:00 2021-12-11 11:00:00 [facility] Catrachita Mercado [facility] 1.2.840.114 350.1.13.10 4.2.7.2.686 [id number] [facility] 2021-12-11 09:00:00 2021-12-11 09:00:00 Outpatient R CATRACHITA MERCADO [facility] [id number] [facility] 2021-11-22 14:44:00 2021-11-22 20:04:00 Emergency X Cristofer HENRY [facility] ERT [id number] [facility] 2021-11-22 14:44:00 2021-11-22 20:04:00 Emergency Cristofer Henry [facility] 1.2.840.114 350.1.13.10 4.2.7.2.686 [id number] [facility] 2021-11-14 09:00:00 2021-11-14 11:12:34 Office Visit Catrachita Mercado [facility] 1.2.840.114 350.1.13.10 4.2.7.2.686 [id number] [facility] 2021-11-14 09:00:00 2021-11-14 11:12:34 Outpatient CATRACHITA LUNA [facility] [id number] [facility] 2021-11-14 09:00:00 2021-11-14 09:00:00 Outpatient CATRACHITA LUNA [facility] [id number] [facility] 2021-11-14 09:00:00 2021-11-14 09:00:00 Outpatient CATRACHITA LUNA [facility] [id number] [facility] 2021-11-12 08:00:00 2021-11-12 08:15:00 [employer] W[employer] Visit Pob, Adc Lab Main Catrachita Mercado [facility] 1..840.114 350.1.13.10 4.2.7.2.686 [id number] [facility] 2021-11-12 08:00:00 2021-11-12 08:00:00 Outpatient CATRACHITA LUNA [facility] [id number] [facility] 2021-11-12 00:00:00 2021-11-12 00:00:00 Orders Only Doctor Unassigned, [place] [facility] 1.840.114 350.1.13.10 4.2.7.2.686 [id number] [facility] 2021-11-10 00:00:00 2021-11-10 00:00:00 Telephone Josephine Jones [facility] 1.2.840.114 350.1.13.10 4.2.7.2.686 [id number] [facility] 2021-11-07 11:00:00 2021-11-07 11:00:00 Outpatient CATRACHITA LUNA [facility] [id number] [facility] 2021-11-07 11:00:00 2021-11-07 11:00:00 Outpatient CATRACHITA LUNA [facility] [id number] [facility] 2021-11-05 00:00:00 2021-11-05 00:00:00 [facility] Secure [facility] 1.114 350.1.13.10 4.2.7.2.686 [id number] [facility] 2021-11-05 00:00:00 2021-11-05 00:00:00 [facility] 1.114 350.1.13.10 4.2.7.2.686 [id number] [facility] 2021-10-30 08:30:00 2021-10-30 09:00:00 Telemedici ne Visit Catrachita Mercado [facility] 1.114 350.1.13.10 4.2.7.2.686 [id number] [facility] 2021-10-30 08:30:00 2021-10-30 08:30:00 Outpatient CATRACHITA LUNA [facility] [id number] [facility] 2021-10-30 08:30:00 2021-10-30 08:30:00 Outpatient CATRACHITA LUNA [facility] [id number] [facility] 2021-10-29 00:00:00 2021-10-29 00:00:00 Marium Garrett [facility] 1.840.114 350.1.13.10 4.2.7.2.686 [id number] [facility] 2021-10-19 00:00:00 2021-10-19 00:00:00 Refill Juan [facility] 1.2840.114 350.1.13.10 4.2.7.2.686 [id number] [facility] 2021-10-17 00:00:00 2021-10-17 00:00:00 Transition of Care Nell Alanna L ZULEYMA HARRELL 1.0.114 350.1.13.10 4.2.7.2.686 [id number] [facility] 2021-10-15 14:23:00 2021-10-16 14:50:00 Outpatient Prince KLEIN [facility] [id number] [facility] 2021-10-15 14:23:00 2021-10-16 14:50:00 Emergency Marium Hickey David [facility] 1.0.114 350.1.13.10 4.2.7.2.686 [id number] [facility] 2021-09-27 11:15:00 2021-09-27 14:54:00 Emergency BA CEJA [facility] ERT [id number] [facility] 2021-09-27 11:15:00 2021-09-27 14:54:00 Emergency Ismael Cotter Robert Lee [facility] 1.0.114 350.1.13.10 4.2.7.2.686 [id number] [facility] 2021-09-27 10:20:00 2021-09-27 10:20:00 [facility] 1.0.114 350.1.13.10 4.2.7.2.686 [id number] [facility] 2021-09-27 10:20:00 2021-09-27 10:16:45 Outpatient R ROSIO TRAVIS [facility] [id number] [facility] 2021-08-12 00:00:00 2021-08-12 00:00:00 Telephone Catrachita Mercado [facility] 1..114 350.1.13.10 4.2.7.2.686 [id number] [id number] [facility] 2021-08-12 00:00:00 2021-08-12 00:00:00 Orders Only Doctor Unassigned, [place] [facility] 1..114 350.1.13.10 4.2.7.2.686 [id number] [facility] 2021-08-08 11:56:09 2021-08-08 12:11:09 Fish And Wildlife Warden Visit Vtc-Lab [facility] 1.114 350.1.13.10 4.2.7.2.686 [id number] [facility] 2021-08-08 11:00:00 2021-08-08 11:56:31 Outpatient R CATRACHITA MERCADO [facility] [id number] [facility] 2021-08-08 10:03:35 2021-08-08 11:56:31 Office Visit [facility] 1.114 350.1.13.10 4.2.7.2.686 [id number] [facility] 2021-07-22 13:30:00 2021-07-22 14:05:17 Outpatient MARIUM KAISER [facility] [id number] [facility] 2021-07-22 13:17:43 2021-07-22 14:05:17 Office Visit Marium Dawson [facility] 1.2.114 350.1.13.10 4.2.7.2.686 [id number] [facility] 2021-07-22 13:30:00 2021-07-22 13:30:00 Outpatient R MARIUM DAWSON [facility] [id number] [facility] 2021-07-22 13:30:00 2021-07-22 13:30:00 Outpatient R MARIUM DAWSON [facility] [id number] [facility] 2021-07-11 16:01:12 2021-07-11 16:49:47 Office Visit Marium Dawson [facility] 1.2.114 350.1.13.10 4.2.7.2.686 [id number] [facility] 2021-07-11 16:00:00 2021-07-11 16:49:47 Outpatient R MARIUM DAWSON [facility] [id number] [facility] 2021-07-11 00:00:00 2021-07-11 00:00:00 Telephone Marium Dawson [facility] 1.114 350.1.13.10 4.2.7.2.686 [id number] [facility] 2021-06-20 17:48:00 2021-06-20 21:24:00 Emergency Cristofer Henry [facility] 1.2.114 350.1.13.10 4.2.7.2.686 [id number] [facility] 2021-05-08 00:00:00 2021-05-08 00:00:00 Letter (Out) Dedra Shepherd [facility] 1.2.840.114 350.1.13.10 4.2.7.2.686 [id number] [facility] 2021-05-07 09:27:26 2021-05-07 09:37:26 Laboratory Only Only, Ang Db Test Marcin Bobbi [facility] 1.114 350.1.13.10 4.2.7.2.686 [id number] [facility] 2021-05-07 09:25:00 2021-05-07 09:25:00 Outpatient R MARCIN BOBBI [facility] [id number] [facility] 2021-04-11 12:33:14 2021-04-11 12:48:14 Fish And Wildlife Warden Visit Ohc-Lab Catrachita Mercado [facility] 1.114 350.1.13.10 4.2.7.2.686 [id number] [facility] 2021-04-11 11:19:19 2021-04-11 12:35:51 Office Visit [facility] 1.114 350.1.13.10 4.2.7.2.686 [id number] [facility] 2021-04-11 12:00:00 2021-04-11 12:00:00 Outpatient R CATRACHITA MERCADO [facility] [id number] [facility] 2021-04-08 10:25:23 2021-04-08 11:26:58 Office Visit Marium Dawson [facility] 1.114 350.1.13.10 4.2.7.2.686 [id number] [facility] 2021-04-08 10:30:00 2021-04-08 10:30:00 Outpatient R MARIUM DAWSON [facility] [id number] [facility] 2021-03-26 00:00:00 2021-03-26 00:00:00 Patient Secure Msg Audrey Alvarez [facility] 1.114 350.1.13.10 4.2.7.2.686 [id number] [facility] 2021-03-25 15:30:00 2021-03-25 15:30:00 Outpatient R SAMIRJOSEN [facility] [id number] [facility] 2021-03-18 14:34:51 2021-03-18 14:49:51 Fish And Wildlife Warden Visit Vtc-Lab Catrachita Mercado [facility] 1.114 350.1.13.10 4.2.7.2.686 [id number] [facility] 2021-03-18 13:38:25 2021-03-18 14:35:19 Office Visit Catrachita Mercado [facility] 1.114 350.1.13.10 4.2.7.2.686 [id number] [facility] 2021-03-18 13:30:00 2021-03-18 13:30:00 Outpatient R CATRACHITA MERCADO [facility] [id number] [facility] 2021-03-03 00:00:00 2021-03-03 00:00:00 Patient Secure Msg Doctor Unassigned, [place] [facility] 1.114 350.1.13.10 4.2.7.2.686 [id number] [facility] 2021-02-28 15:07:35 2021-02-28 16:01:07 Office Visit Marium Dawson [facility] 1.2.840.114 350.1.13.10 4.2.7.2.686 [id number] [facility] 2021-02-28 15:30:00 2021-02-28 15:30:00 Outpatient MARIUM [facility] [id number] [facility] 2021-02-26 19:08:00 2021-02-26 22:19:00 Emergency Ashwin Lucero [facility] 1.2.840.114 350.1.13.10 4.2.7.2.686 [id number] [facility] 2021-02-21 07:31:00 2021-02-22 12:50:00 Hospital Encounter Samir Marium [facility] 1.2.840.114 350.1.13.10 4.2.7.2.686 [id number] [facility] 2021-02-21 08:16:00 2021-02-21 13:05:00 Anesthesia Event Ernesto Tesfaye Leonard [facility] [place] 1.2.840.114 350.1.13.10 4.2.7.2.686 [id number] [facility] 2021-02-21 08:30:00 2021-02-21 12:52:00 Surgery Samir Marium [facility] 1.2.840.114 350.1.13.10 4.2.7.2.686 [id number] [facility] 2021-02-21 00:00:00 2021-02-21 00:00:00 Orders Only Doctor Unassigned, [place] [facility] 1.2.840.114 350.1.13.10 4.2.7.2.686 [id number] [facility] 2021-02-20 08:30:00 2021-02-20 08:30:00 Outpatient R MARIUM DAWSON [facility] [id number] [facility] 2021-02-20 08:08:54 2021-02-20 08:23:54 Fish And Wildlife Warden Visit Pob, Adc Lab Main Marium Dawson [facility] 1.84.114 350.1.13.10 4.2.7.2.686 [id number] [facility] 2021-02-20 08:08:25 2021-02-20 08:23:25 Laboratory Only Only, [facility] Test Marium Dawson [facility] 1.84.114 350.1.13.10 4.2.7.2.686 [id number] [facility] 2021-02-19 00:00:00 2021-02-19 00:00:00 Orders Only Doctor Unassigned, [place] [facility] 1.114 350.1.13.10 4.2.7.2.686 [id number] [facility] 2021-02-18 08:15:00 2021-02-18 08:15:00 Outpatient R MARIUM DAWSON [facility] [id number] [facility] 2021-02-06 10:30:00 2021-02-06 10:30:00 Outpatient R MARIUM DAWSON [facility] [id number] [facility] 2021-01-29 00:00:00 2021-01-29 00:00:00 Outpatient R MARIUM DAWSON [facility] [id number] [facility] 2021-01-24 14:18:23 2021-01-24 15:08:39 Office Visit Marium Dawson [facility] 1.84.114 350.1.13.10 4.2.7.2.686 [id number] [facility] 2021-01-24 14:30:00 2021-01-24 14:30:00 Outpatient MARIUM K[facility]ISER [facility] [id number] [facility] 2021-01-24 00:00:00 2021-01-24 00:00:00 Orders Only Doctor Unassigned, [place] [facility] 1.2840.114 350.1.13.10 4.2.7.2.686 [id number] [id number] [facility] 2021-01-21 09:00:00 2021-01-21 09:00:00 Outpatient MARIUM KAISER [facility] [id number] [facility] 2021-01-02 10:30:00 2021-01-02 10:30:00 Outpatient R HEAVENSHRUTHI [facility] [id number] [facility] 2020-11-25 00:00:00 2020-11-25 00:00:00 Patient Outreach Miko Araujo [facility] 1.2840.114 350.1.13.10 4.2.7.2.686 [id number] [facility] 2020-09-28 13:43:00 2020-09-28 16:38:00 Emergency Morgan Vargas [facility] 1.2.840.114 350.1.13.10 4.2.7.2.686 [id number] [facility] 2020-09-17 13:24:29 2020-09-17 14:54:21 Office Visit Rachna Bush [facility] 1.2840.114 350.1.13.10 4.2.7.2.686 [id number] [facility] 2020-09-17 13:45:00 2020-09-17 13:45:00 Outpatient R RACHNA BUSH [facility] [id number] [facility] 2020-09-05 10:40:42 2020-09-05 11:50:15 Office Visit Rachna Bush Rm, Adc Surg Spec Procedure [facility] 1.2.840.114 350.1.13.10 4.2.7.2.686 [id number] [facility] 2020-09-05 10:45:00 2020-09-05 10:45:00 Outpatient R RACHNA BUSH [facility] [id number] [facility] 2020-09-05 00:00:00 2020-09-05 00:00:00 Orders Only Doctor Unassigned, [place] [facility] 1.2.840.114 350.1.13.10 4.2.7.2.686 [id number] [facility] 2020-08-06 15:20:07 2020-08-06 16:38:34 Office Visit Rachna Bush [facility] 1.2.840.114 350.1.13.10 4.2.7.2.686 [id number] [facility] 2020-08-06 15:30:00 2020-08-06 15:30:00 Outpatient R RACHNA BUSH [facility] [id number] [facility] 2020-07-31 00:00:00 2020-07-31 00:00:00 Telephone Rachna Bush [facility] 1.2.840.114 350.1.13.10 4.2.7.2.686 [id number] [facility] 2020-07-30 14:25:30 2020-07-30 16:00:44 Office Visit Rachna Bush [facility] 1.2.840.114 350.1.13.10 4.2.7.2.686 [id number] [facility] 2020-07-30 14:30:00 2020-07-30 14:30:00 Outpatient R RACHNA BUSH [facility] [id number] [facility] 2020-07-30 00:00:00 2020-07-30 00:00:00 Orders Only Doctor Unassigned, [place] [facility] 1.0.114 350.1.13.10 4.2.7.2.686 [id number] [id number] [facility] 2020-07-27 13:06:42 2020-07-27 14:02:20 Urgent Care Provider, [facility] Marcin [facility] Office Building One 1..114 350.1.13.10 4.2.7.2.686 [id number] [facility] 2020-07-27 13:20:00 2020-07-27 13:20:00 Outpatient R MARCIN [facility] [id number] [facility] 2020-07-18 08:48:25 2020-07-18 09:48:25 Laboratory Only Pc, Adc Echo Room 1 - [facility] Building 1.114 350.1.13.10 4.2.7.2.686 [id number] [facility] 2020-07-18 09:00:00 2020-07-18 09:00:00 Outpatient R [facility] [id number] [facility] 2020-07-18 00:00:00 2020-07-18 00:00:00 Orders Only Doctor Unassigned, [place] [facility] 1..114 350.1.13.10 4.2.7.2.686 [id number] [facility] 2020-06-25 00:00:00 2020-06-25 00:00:00 Transition of Care Marley Tello 1.0.114 350.1.13.10 4.2.7.2.686 [id number] [facility] 2020-06-22 12:07:00 2020-06-23 14:40:00 Emergency Mino Shahid Yaman [facility] 1.2.840.114 350.1.13.10 4.2.7.2.686 [id number] [facility] 2020-06-12 00:00:00 2020-06-12 00:00:00 Orders Only Doctor Unassigned, [place] [facility] 1.2.840.114 350.1.13.10 4.2.7.2.686 [id number] [facility] 2020-03-19 00:00:00 2020-03-19 00:00:00 Orders Only Doctor Unassigned, [place] [facility] 1.2.840.114 350.1.13.10 4.2.7.2.686 [id number] 2020-03-19 00:00:00 2020-03-19 00:00:00 Orders Only Doctor Unassigned, [place] [facility] 1.2.840.114 350.1.13.10 4.2.7.2.686 [id number] [facility] 2020-02-28 00:00:00 2020-02-28 00:00:00 Transition of Care Marley Tello Castano Sharri 1.2.840.114 350.1.13.10 4.2.7.2.686 [id number] 2020-02-28 00:00:00 2020-02-28 00:00:00 Transition of Care Marley Tello Castanosilvana Harrell 1.2.840.114 350.1.13.10 4.2.7.2.686 [id number] [facility] 2020-02-23 21:57:28 2020-02-27 16:56:00 Hospital Encounter Tiana Smith [facility] 1.2.840.114 350.1.13.10 4.2.7.2.686 [id number] 2020-02-23 21:57:28 2020-02-27 16:56:00 Inpatient U TIANA SMITH [facility] [id number] [facility] 2020-02-23 21:57:28 2020-02-27 16:56:00 [facility] 1.2.840.114 350.1.13.10 4.2.7.2.686 [id number] [facility] 2020-01-31 13:56:16 2020-02-02 12:50:00 Hospital Encounter Annamaria Cardenas Yaman [facility] 1.2.840.114 350.1.13.10 4.2.7.2.686 [id number] 2020-01-31 13:56:16 2020-02-02 12:50:00 Inpatient ANAHY JARQUIN [facility] [id number] [facility] 2020-01-31 13:56:16 2020-02-02 12:50:00 Hospital Encounter Annamaria Cardenas Yaman [facility] 1.2.840.114 350.1.13.10 4.2.7.2.686 [id number] [facility] 2020-01-31 00:00:00 2020-01-31 00:00:00 Orders Only Doctor Unassigned, [place] [facility] 1.2.840.114 350.1.13.10 4.2.7.2.686 [id number] 2020-01-31 00:00:00 2020-01-31 00:00:00 Orders Only Doctor Unassigned, [place] [facility] 1.2.840.114 350.1.13.10 4.2.7.2.686 [id number] [facility] Results Test Description Test Time Test Comments Results Resul t Comments Source Critical Care 2024-06-06 2 21:37:00 Ana Castillo MD ? ? 06/17/2024 ?8:55 PMCritical Care Performed by: Ana Castillo MDAuthorized by: Ana Castillo MD ?Critical care provider statement: ?Critical care time (minutes): ?35 ?Critical care start time: ?06/17/2024 4:37 PM ?Critical care end time: ?06/17/2024 8:54 PM ?Critical care time was exclusive of: ?Separately billable procedures and treating other patients and teaching time ?Critical care was necessary to treat or prevent imminent or life-threatening deterioration of the following conditions: ?Respiratory failure and shock ?Critical care was time spent personally by me on the following activities: ?Evaluation of patient's response to treatment, examination of patient, obtaining history from patient or surrogate, review of old charts, re-evaluation of patient's condition, pulse oximetry and ordering and performing treatments and interventions ?I assumed direction of critical care for this patient from another provider in my specialty: no ? [facility] [id number] 21:51:55EXAM: CT ABDOMEN PELVIS WO CONTRAST HISTORY: 38 years-old Female; Provided indication: Flank pain, kidney stonesuspected . TECHNIQUE: Contiguous axial imaging from the level of the lung basesthrough the proximal thighs was performed without the intravenousadministration of contrast. Coronal and sagi ttal reconstructions wereobtained. COMPARISON: CTAP 08/28/2022 FINDINGS: LOWER THORAX: The lung bases are clear. LIVER: The liver is enlarged and measures up to 18.6 cm.Has normalcontours. No focal hepatic lesion is visualized. GALLBLADDER AND BILIARY TREE: Status post cholecystectomy. Nocholedochol ithiasis. No intra or extrahepatic biliary ductal dilation isvisualized. SPLEEN: The spleen is normal in size. PANCREAS: No ductal dilation or masses are visualized. ADRENAL GLANDS: No adrenal massesare seen. KIDNEYS:Left: No suspicious masses visualized. No hydronephrosis. ?No stonesvisualized.Right: No suspicious masses visualized. No hydronephrosis. ?No stonesvisualized. PELVIS/BLADDER: The bladder is decompressed and apparent wall thickening islikely physiologic. GI TRACT: No dilation or bowel wall thickening is seen. The appendix is isnot visualized, however there are no secondary signsof appendicitis in theright lower quadrant. PERITONEUM AND RETROPERITONEUM: No intra-abdominal freeair or fluidcollection is visualized. LYMPH NODES: No lymphadenopathy. VESSELS: The vessels appear unremarkable within limitations of anon-contrasted examination. BONES AND SOFT TISSUES: No suspicious lytic or sclerotic bony lesions arepresent.[facility] [id number] 19:40:00* Test Item Value Reference Range Interpretation Comme nts POCT PREG (test code = 1605) Negative On board controls acceptable with C Line (test code = 3574) Yes POCT PREG LOT # (test code = 3575) [id number] POCT PREG TEST DATE ( test code = 3576) 12/09/2024 Lab Interpretation (test cod e = 54286-5) Normal [facility] WITH [id number] 01:32:48* Test Item Value Reference Range Interpretation Comme [facility] WBC (test code = 6690-2) See_Comment H [Automated [employer]] The system which generated this result transmitted reference range: 4.30 - 11.10 10*3/?L. The reference range was not used to interpret this result as normal/abnormal. RBC (test code = 789-8) See_Comment [Automated [employer]] The system which generated this result transmitted reference range: 3.93 - 5.25 10*6/?L. The reference range was not used to interpret this result as normal/abnormal. HGB (test code = 718-7) 13.0 g/dL 11.6-15.0 HCT (test code = 4544-3) 38.1 % 35.7-45.2 MCV (test code = 787-2) 82.5 fL 80.6-95.5 MCH (test code = 785-6) 28.1 pg 25.9-32.8 MCHC (test code = 786-4) 34.1 g/dL 31.6-35.1 RDW-SD (test code = 40958-9) 37.4 fL 39.0-49.9 L RDW-CV (test code = 788-0) 12.5 % 12.0-15.5 PLT (test code = 777-3) See_Comment [Automated messa ge] The system which generated this result transmitted reference range: 166 - 358 10*3/?L. The reference range was not used to interpret this result as normal/abnormal. MPV (test code = 47974-0) 10.5 fL 9.5-12.9 NRBC/100 WBC (test code = 1714339035) See_Comment [Automated [employer] ssage] The system which generated this result transmitted reference range: 0.0 - 10.0 /100 WBCs. The reference range was not used to interpret this result as normal/abnormal. NRBC x10^3 (test code = 0019318836) See_Comment [Automated messa ge] The system which generated this result transmitted reference range: 10*3/?L. The reference range was not used to interpret this result as normal/abnormal. GRAN MAT (NEUT) % (test code = 770-8) 55.4 % IMM GRAN % (test code = 1066209780) 0.60 % LYMPH % (test code = 736-9) 36.2 % MONO % (test code = 5905-5) 6.0 % EOS % (test code = 713-8) 1.2 % BASO % (test code = 706-2) 0.6 % GRAN MAT x10^3(ANC) (test code = 9672988859) 7.91 10*3/uL 1.88-7.09 H IMM GRAN x10^3 (test code = 4679772267) 0.08 10*3/uL 0.00-0.06 H LYMPH x10^3 (test code = 731-0) 5.16 10*3/uL 1.32-3.29 H MONO x10^3 (test code = 742-7) 0.86 10*3/uL 0.33-0.92 EOS x10^3 (test code = 711-2) 0.17 10*3/uL 0.03-0.39 BASO x10^3 (test code = 704-7) 0.08 10*3/uL 0.01-0.07 H Lab Interpretation (test code = 85326-0) Abnormal [facility]. METABOLIC PANEL (51358)2022-09-20 01:13:21* Test Item Value Reference Range Interpretation Comme nts NA (test code = 5666440487) 138 mmol/L 135-145 K (test code = 4572353655) 3.6 mmol/L 3.5-5.0 CL (test code = 2540173624) 104 mmol/L 98-108 CO2 TOTAL (test code = 2480604748) 19 mmol/L 23-31 L AGAP (test code = 4500659601) 2-16 BUN (test code = 3668407611) 12 mg/dL 7-23 GLUCOSE (test code = 6450173476) 131 mg/dL 70-110 H CREATININE (test code = 0690885385) 0.56 mg/dL 0.50-1.04 TOTAL BILI (test code = 2708447420) 0.5 mg/dL 0.1-1.1 CALCIUM (test code = 8387504527) 9.4 mg/dL 8.6-10.6 T PROTEIN (test code = 3290972729) 7.8 g/dL 6.3-8.2 ALBUMIN (test code = 9697875535) 4.8 g/dL 3.5-5.0 ALK PHOS (test code = 0995626459) 67 U/L 34-122 ALTv (test code = 1742-6) 29 U/L 5-35 AST(SGOT) (test code = 4905371770) 32 U/L 13-40 eGFR (test code = 6769146025) mL/min/1.73m2 JESSICA (test code = JESSICA) Association of [...] or abnormalities in imaging tests). Lab Interpretation (test code = 24680-9) Abnormal [facility] WITH [id number] 03:53:40* Test Item Value Reference Range Interpretation Comme nts WBC (test code = 6690-2) See_Comment H [Automated [employer]] The system which generated this result transmitted reference range: 4.30 - 11.10 10*3/?L. The reference range was not used to interpret this result as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 8 (eight) hours as needed for Nausea and Vomiting (N/V). PROMETHAZINE 25 MG TABLET Take 1 tablet by mouth every 6 (six) hours as needed for Nausea and Vomiting (N/V). RISPERIDONE 3 MG TABLET Take 1 tablet by mouth at bedtime. STELARA 45 MG/0.5 ML SC INJECTION INJECT 45MG (1 SYRINGE) SUBCUTANEOUSLY EVERY 8 WEEKS. SUMATRIPTAN 25 MG TABLET PLEASE SEE ATTACHED FOR DETAILED DIRECTIONS VENTOLIN HFA 90 MCG/ACTUATION INHALER INHALE ONE (1) PUFF(S) BY MOUTH EVERY FOUR HOURS. START taking Modified Medications as Prescribed No medications on file STOP taking these medications PREDNISONE 20 MG TABLET Take 3 tablets PO with Pepcid and Benadryl in case of an Allergic Reaction Follow-up: Electronically signed by: Deborah Winslow DO 09/04/23 1646 [facility]
[2024-07-04] MEDS ORDERED: HYDROMORPHONE HCL 1 MG/ML INJ ONE (10:23)
[2024-07-04] MEDS ORDERED: PROMETHAZINE INJ 25 MG/ML AMP ONE (10:24)
[2024-07-04 10:36] LABS: Absolute Monocytes 0.8 K/uL (0.1-1.3); Absolute Neutrophil 6.4 K/uL (1.8-8.0); Basophils % 0.5 % (0-1.3); Eosinophils % 0.4 % (0-4.4); Hematocrit 37.3 % (36.0-45.0); Hemoglobin 12.6 g/dL (12.0-15.0); Lymphocytes % 12.6 % (15.3-44.8); MCH 29.4 pg (27.0-35.0); MCHC 33.8 g/dL (32.0-36.0); MPV 7.2 fL (7.6-11.3); Monocytes % 9.3 % (3.3-12.3); Neutrophils % 77.2 % (41.7-73.7); Platelets 291 thou/uL (152-406); RBC Red Blood Cell Count 4.28 M/uL (3.86-4.86); Red Cell Distribution Width 12.7 % (12.1-15.2)
[2024-07-04 10:38] LABS: Specific Gravity < 1.005 (1.005-1.030); Sqamous Epithelial None Seen /HPF (None Seen); Urine Bacteria <20 /HPF (<20); Urine Bilirubin NEGATIVE (Negative); Urine Blood Negative (Negative); Urine Clarity Turbid (Clear); Urine Color Colorless (Yellow); Urine Culture Reflex Order NOT NEEDED; Urine Glucose NEGATIVE (Negative); Urine Ketones NEGATIVE (Negative); Urine Microscopic Reflex YN ORDER UMIC; Urine Nitrite NEGATIVE (Negative); Urine Protein NEGATIVE (Negative); Urine RBC None Seen /HPF (None Seen); Urine Urobilinogen Normal (Normal); Urine WBC None Seen /HPF (<5)
--- NOTE | 2024-07-04 10:47 | RAD REPORT ---
EXAMINATION: CT ABDOMEN AND PELVIS WITHOUT CONTRAST CLINICAL INDICATION: Abdominal pain. Left flank pain TECHNIQUE: CT abdomen and pelvis was performed, as per department protocol. IV contrast and oral was not administered.Axial, sagittal and coronal reconstructions were obtained. One or more of the following dose reduction techniques were used: Automated exposure control, adjustment of the mA and/o r kV according to the patient size, and/or iterative reconstruction. Unless otherwise specified, incidental findings do not require dedicated imaging follow-up. [id number]. COMPARISON: 2020 FINDINGS: The lack of intravenous and oral contrast limits evaluation of solid organs, vessels and bowel. The liver, spleen, pancreas, adrenals and kidneys appear grossly normal. No hydronephrosis. Cholecystectomy. Hysterectomy. No adnexal mass. No evidence of diverticulitis IMPRESSION: No acute abnormality displayed
[2024-07-04 11:03] LABS: Albumin 3.8 g/dL (3.4-5.0); Albumin/Globulin Ratio 1.1 (1.1-1.8); Anion Gap 10.6 mEq/L (5.0-15.0); Bilirubin Total 0.8 mg/dL (0.2-1.0); Globulin 3.5 g/dL (2.3-3.5); Potassium 3.6 mEq/L (3.5-5.1); Protein, Total 7.3 g/dL (6.4-8.2)
--- NOTE | 2024-07-04 11:10 | EDPHYS ---
Physician Documentation [facility] Name: Sowmya Juarez Age: 39 yrs Sex: Female : 1985 Arrival Date: 07/04/2024 Time: 09:59 Bed 2 Private MD: NATHALIE Physician Amanda Lopes HPI: 07/04 10:28 This 39 yrs old Female presents to ER via Ambulatory with complaints of Vomiting, sp3 Abdominal Pain. 10:28 39-year-old female with history of Crohn's disease, kidney stones, bipolar disease, sp3 hypertension, who is status postcholecystectomy, appendectomy, hysterectomy now presents with left-sided abdominal pain and left flank pain since early this morning. Patient feels like it is a recurrent kidney stone and does not feel like it is a Crohn's flare. She denies fever, headache, neck pain, chest pain, shortness of breath, rash, syncope, near syncope, or any other signs or symptoms on ROS at this time. She has had vomiting without diarrhea.. Historical: - Allergies: 10:09 Compazine; ss - PMHx: 10:09 Bipolar disorder; Crohn's; Hyperlipidemia; Hypertension; Mass Cell Activation Syndrome; ss Migraines; - PSHx: 10:09 Appendectomy; section; Cholecystectomy; Total abdominal hysterectomy; ss - Immunization history:: Client reports having NOT received the Covid vaccine. - Infectious Disease History:: Denies. - Social history:: Smoking status: Patient denies any tobacco usage or history of. ROS: 10:29 Constitutional: Negative for fever, chills, and weight loss, Eyes: Negative for injury, sp3 pain, redness, and discharge, Neck: Negative for injury, pain, and swelling, Cardiovascular: Negative for chest pain, palpitations, and edema, Respiratory: Negative for shortness of breath, cough, wheezing, and pleuritic chest pain, MS/Extremity: Negative for injury and deformity, Skin: Negative for injury, rash, and discoloration, Neuro: Negative for headache, weakness, numbness, tingling, and seizure, Psych: Negative for depression, anxiety, suicide ideation, homicidal ideation, and hallucinations, Allergy/Immunology: Negative for hives, rash, and allergies, Endocrine: Negative for neck swelling, polydipsia, polyuria, polyphagia, and marked weight changes, Hematologic/Lymphatic: Negative for swollen nodes, abnormal bleeding, and unusual bruising, 10:29 All other systems are negative, Exam: 10:29 Constitutional: This is a well developed, well nourished patient who is awake, alert, sp3 and in no acute distress. Head/Face: Normocephalic, atraumatic. Eyes: Pupils equal round and reactive to light, extra-ocular motions intact. Lids and lashes normal. Conjunctiva and sclera are non-icteric and not injected. Cornea within normal limits. Periorbital areas with no swelling, redness, or edema. Neck: Trachea midline, no thyromegaly or masses palpated, and no cervical lymphadenopathy. Supple, full range of motion without nuchal rigidity, or vertebral point tenderness. No Meningismus. Chest/axilla: Normal chest wall appearance and motion. Nontender with no deformity. No lesions are appreciated. Cardiovascular: Regular rate and rhythm with a normal S1 and S2. No gallops, murmurs, or rubs. Normal PMI, no JVD. No pulse deficits. Respiratory: Lungs have equal breath sounds bilaterally, clear to auscultation and percussion. No rales, rhonchi or wheezes noted. No increased work of breathing, no retractions or nasal flaring. Skin: Warm, dry with normal turgor. Normal color with no rashes, no lesions, and no evidence of cellulitis. MS/ Extremity: Pulses equal, no cyanosis. Neurovascular intact. Full, normal range of motion. Neuro: Awake and alert, GCS 15, oriented to person, place, time, and situation. Cranial nerves II-XII grossly intact. Motor strength 5/5 in all extremities. Sensory grossly intact. Cerebellar exam normal. Normal gait. Psych: Awake, alert, with orientation to person, place and time. Behavior, mood, and affect are within normal limits. 10:29 Abdomen/GI: Left side abdominal pain to palpation without peritoneal signs, left CVA tenderness present., Vital Signs: 10:07 BP 168 / 98; Resp 20; Pulse Ox 99% on R/A; Weight 65.77 kg; Height 5 ft. 3 in. ; Pain iw 610; 10:07 Body Mass Index 25.68 (65.77 kg, 160.02 cm) iw 10:07 Pain Scale: Adult iw MDM: 10:06 Medical Screening Exam initiated sp3 10:31 Data reviewed: vital signs, nurses notes, old medical records, lab test result(s), sp3 radiologic studies. ED course: 39-year-old female with extensive PMH and past surgical history above. Differential diagnosis includes kidney stone/ureterolithiasis spectrum, UTI/pyelonephritis spectrum, Crohn's flare, other abdominal pathology, adhesions, among others. Workup will include noncontrast CT scan of the abdomen pelvis indicated stone protocol, UA and general laboratory values. Dilaudid and Phenergan as needed for symptomatic control. Patient had ondansetron ODT prior to arrival. Disposition pending workup and patient course.. 11:08 ED course: Full workup negative including CT and all labs. Sodium mildly low and I have sp3 told patient to increase p.o. intake. Follow-up with PCP as needed. Ondansetron ODT will be refilled.. 07/04 10:20 Order name: CBC with Diff; Complete Time: 10:50 sp3 07/04 10:20 Order name: CMP; Complete Time: 11:05 sp3 07/04 10:20 Order name: Lipase; Complete Time: 11:05 sp3 07/04 10:20 Order name: Urinalysis w/ reflexes; Complete Time: 10:50 sp3 07/04 10:20 Order name: CT Abd/Pelvis - Without Contrast; Complete Time: 10:50 sp3 07/04 10:20 Order name: IV Saline Lock; Complete Time: 10:22 sp3 07/04 10:20 Order name: Labs collected and sent; Complete Time: 10:22 sp3 Administered Medications: 10:36 Drug: HYDROmorphone IVP 1 mg IVP once Route: IVP; Site: right antecubital; iw 11:30 Follow up: Response: No adverse reaction mb9 10:36 Drug: Promethazine IVP 12.5 mg IVP once Route: IVP; Site: right antecubital; iw 11:30 Follow up: Response: No adverse reaction mb9 Disposition Summary: 07/04/24 11:09 Discharge Ordered Notes: Location: Home sp3 Condition: Stable sp3 Diagnosis - Abdominal pain, vomiting sp3 Followup: sp3 - With: Private Physician - When: Upon discharge from the Emergency Department - Reason: Recheck today's complaints, Continuance of care Discharge Instructions: - Discharge Summary Sheet sp3 - Abdominal Pain, Adult sp3 Forms: - Medication Reconciliation Form sp3 - Antibiotic Education sp3 - Prescription Opioid Use sp3 - Patient Portal Instructions sp3 - Leadership Thank You Letter sp3 Prescriptions: - ondansetron 8 mg Oral Tablet,disintegrating - take 1 tablet ORAL route every 12 hours; 20 tablet; Refills: 0, Product sp3 Selection Permitted Signatures: Dispatcher [employer] EDDee Akins RN RN Farideh Vargas RN RN ss Amanda Lopes MD MD sp3 Karen Patterson RN mb9 Corrections: (The following items were deleted from the chart) 10:21 10:21 CBC+H.LAB.BRZ ordered. EDMS EDMS 10:21 10:21 COMPREHENSIVE METABOLIC PANEL+C.LAB.BRZ ordered. EDMS EDMS 10:21 10:21 LIPASE+C.LAB.BRZ ordered. EDMS EDMS 10:21 10:21 Urinalysis+U.LAB.BRZ ordered. EDMS EDMS 10:21 10:21 Abdomen Pelvis Wo Con+CT.RAD.BRZ ordered. EDMS EDMS
--- NOTE | 2024-07-04 11:10 | ER ---
Nurse's Notes [facility] Name: Sowmya Juarez Age: 39 yrs Sex: Female : 1985 Arrival Date: 07/04/2024 Time: 09:59 Bed 2 Private MD: Diagnosis: Abdominal pain, vomiting Presentation: 07/04 10:07 Chief complaint: Patient states: L flank pain, N/V that began last night. HX of kidney ss stones and Crohns. Coronavirus screen: Client denies travel out of the [place] in the last 14 days. Ebola Screen: Patient denies exposure to infectious person. Patient denies travel to an Ebola-affected area in the 21 days before illness onset. Initial Sepsis Screen: Does the patient meet any 2 criteria? No. Patient's initial sepsis screen is negative. Does the patient have a suspected source of infection? No. Patient's initial sepsis screen is negative. Risk Assessment: Do you want to hurt yourself or someone else? Patient reports no desire to harm self or others. Onset of symptoms was July 03, 2024. 10:07 Method Of Arrival: Ambulatory ss 10:07 Acuity: KALYN 3 ss Historical: - Allergies: 10:09 Compazine; ss - PMHx: 10:09 Bipolar disorder; Crohn's; Hyperlipidemia; Hypertension; Mass Cell Activation Syndrome; ss Migraines; - PSHx: 10:09 Appendectomy; section; Cholecystectomy; Total abdominal hysterectomy; ss - Immunization history:: Client reports having NOT received the Covid vaccine. - Infectious Disease History:: Denies. - Social history:: Smoking status: Patient denies any tobacco usage or history of. Screenin:17 [facility] ED Fall Risk Assessment (Adult) History of falling in the last 3 months, iw including since admission No falls in past 3 months (0 pts) Confusion or Disorientation No (0 pts) Intoxicated or Sedated No (0 pts) Impaired Gait No (0 pts) Mobility Assist Device Used No (0 pt) Altered Elimination No (0 pt) Score/Fall Risk Level 0 - 2 = Low Risk Oriented to surroundings, Maintained a safe environment. Abuse screen: Denies threats or abuse. Nutritional screening: No deficits noted. Tuberculosis screening: No symptoms or risk factors identified. Assessment: 10:17 General: Appears uncomfortable, ill, Behavior is cooperative. Pain: Complains of pain iw in lumbar area, left low back and left mid back Pain radiates to abdomen Pain currently is 10 out of 10 on a pain scale. Neuro: Level of Consciousness is awake, alert, obeys commands, Oriented to person, place, time, situation. Respiratory: Respiratory effort is even, unlabored. GI: Abdomen is non-distended, Reports nausea, vomiting. Vital Signs: 10:07 BP 168 / 98; Resp 20; Pulse Ox 99% on R/A; Weight 65.77 kg; Height 5 ft. 3 in. ; Pain iw 02/13; 10:07 Body Mass Index 25.68 (65.77 kg, 160.02 cm) iw 10:07 Pain Scale: Adult iw ED Course: 10:01 Patient arrived in ED. im 10:05 Amanda Lopes MD is Attending Physician. sp3 10:09 Triage completed. ss 10:09 Arm band placed on right wrist. ss 10:22 Dee Smalls RN is Primary Nurse. iw 10:29 CT Abd/Pelvis - Without Contrast In Process Unspecified. EDMS 10:29 Inserted saline lock: 20 gauge in right antecubital area, using aseptic technique. ls5 Blood collected. 11:30 No provider procedures requiring assistance completed. IV discontinued, intact, mb9 bleeding controlled, No redness/swelling at site. Pressure dressing applied. Administered Medications: 10:36 Drug: HYDROmorphone IVP 1 mg IVP once Route: IVP; Site: right antecubital; iw 11:30 Follow up: Response: No adverse reaction mb9 10:36 Drug: Promethazine IVP 12.5 mg IVP once Route: IVP; Site: right antecubital; iw 11:30 Follow up: Response: No adverse reaction mb9 Medication: 10:17 VIS not applicable for this client. iw Outcome: 11:09 Discharge ordered by . sp3 11:29 Discharged to home ambulatory, mb9 11:29 Condition: stable 11:29 Discharge instructions given to patient, Instructed on discharge instructions, follow up and referral plans. Demonstrated understanding of instructions, follow-up care, medications, Prescriptions given X 1, 11:30 Patient left the ED. mb9 Signatures: Dispatcher [employer] EDCT Dee Smalls RN RN Farideh Vargas RN RN ss Amanda Lopes MD MD sp3 Karen Patterson RN RN mb9 Danny Gilliam ls5 Emmei Valdez Corrections: (The following items were deleted from the chart) 10:18 10:07 BP 168 / 9; Resp 20bpm; Pulse Ox 99% RA; 65.77 kg; Height 5 ft. 3 in.; BMI: 25.6; iw Pain 610, Adult; ss
[2024-07-04 11:39] VITALS: BP 168/98; O2SAT 99
== END 2024-07-04 11:30 | disposition home or self-care (01) ==
LOC: ER 09:59
DX: R10.32 Left lower quadrant pain (principal); R11.10 Vomiting, unspecified; Z87.442 Personal history of urinary calculi
CPT/HCPCS: 85025; 81001; 36415; 83690; 80053; 74176; J2550; J1171

== ENCOUNTER 2024-08-08 10:08 | Emergency (ER) | payer OTHER ==
--- OUTSIDE RECORDS SUMMARY | 2024-08-08 10:14 | XMS REPORT | Continuity of Care Document ---
Author Name Unknown Address [address] [facility] [address] [place] [address] [facility] Address [address] [facility] [address] [place] [address] Care Team Providers Care Epic [facility] Name Role Phone ManuelCelso mojicapedro Tobar Primary Care Physician [phone] MARIUM DAWSON Attending Clinician Unavailable CATRACHITA MERCADO Attending Clinician Unalauren Prado [facility], Melissajaz Whitei Attending Clinician Unavailab Catrachita Gonzalez MD Attending Clinician +- [phone] Andrew Perry MD Attending Clinician [phone] ANA CASTILLO Attending Clinician UnavailAna Kaplan MD Attending Clinician +[phone] Jane Angeles CPhT Attending Clinician UnavailAlysa Jones CPhT Attending Clinician Unavail able [facility] Unavail able Vtc-Lab Attending Clinician Unavailable Bryan [facility], Radha Attending Clinician Unavailable Marley Tello RN Attending Clinician Unavailable MATILDE DIEGO Attending Clinician Unavailable Amanda Power DO Attending Clinician [phone] Matilde Diego MD Attending Clinician +[phone] Doctor Unassigned, [place] Attending Clinician U Catrachita Camejo MD Attending Clinician + [phone] V[facility]Lab Attending Clinician Unavailable DEBORAH WINSLOW Attending Clinician Unavailab Deborah Fregoso DO Attending Clinician [phone] GC_GCBZW_Kadiyala_S Attending Clinician UnavailPAIGE Mcdaniel Attending Clinician Unavailable Paige Tate Attending Clinician + [phone] Unknown, Attending Attending Clinician Unavailab AMANDA Qiu Attending Clinician Unavailable Amanda Mckeon MD Attending Clinician [phone] Rachna Bush MD Attending Clinician + [phone] RACHNA BUSH Attending Clinician Unavailable MORGAN VARGAS Attending Clinician Unavailable Morgan Vargas DO Attending Clinician [phone] MENG GALICIA Attending Clinician Unavailab Meng Barragan MD Attending Clinician [phone] AMANDA POWER Attending Clinician Unavailab carmen Nurse, [facility] Int Med Allergy Attending Clinician U jose Roman MD, Lorene Juárez Attending Clinician [phone] LORENE ROMAN Attending Clinician Unava ELIEZER Nichols Attending Clinician Unavailable Frandy Levy MD Attending Clinician [phone] Eliezer Klein DO Attending Clinician +[phone] Genaro Eubanks MD Attending Clinician [phone] Christopher [facility], Danyel Attending Clinician Unavailable Rosio Martinez MD Attending Clinician [phone] Cristofer HENRY Attending Clinician Unavailable Cristofer Pradhan Attending Clinician [phone] Po, Adc Lab Main Attending Clinician Unavailcarrie Jones [facility], [place] Attending Clinician UnavailMarium Billy MD Attending Clinician [phone] Nell GUTIERRES, Alanna Oconnor Attending Clinician Unavail able Marium Damon Attending Clinician + [phone] BA PASCAL Attending Clinician UnavailIsmael Ty Attending Clinician [phone] Ba Pascal MD Attending Clinician + [phone] ROSIO MARTINEZ Attending Clinician Unavailable Joao GUTIERRES, Dedra Ponce Attending Clinician Unavailab le Only, Ang Db Test Attending Clinician Unavailabl sabina OBRIEN, Bobbi Attending Clinician [phone] BOBBI BURCH Attending Clinician Unavailable Antonio BURKETT, Audrey Attending Clinician Unavaila tyler Lucero MD, Ashwin Saenz Attending Clinician [phone] Ernesto Tesfaye CRNA Attending Clinician [phone] Jaciel Ortiz MD, Leonard Attending Clinician [phone] Only, Adc Test Attending Clinician Unavailable SHRUTHI COLLADO Attending Clinician Unavail able Miko Araujo DO Attending Clinician [phone] , [facility] Surg Spec Procedure Attending Clinician Unavailable Provider, [facility] Attending Clinician Un available Pc, Adc Echo Room 1 - Attending Clinician Tyrel Macario MD, Deborah Attending Clinician [phone] Mino Shahid MD Attending Clinician [phone] Anahy Owen MD Attending Clinician [phone] Tiana Smith MD Attending Clinician + [phone] TIANA SMITH Attending Clinician Unavailab carmen OBRIEN, Annamaria Attending Clinician + [phone] ANAHY OWEN Attending Clinician Unavailable MARIUM DAWSON Admitting Clinician Unavailable MATILDE DIEGO Admitting Clinician Unavailable Matilde Diego MD Admitting Clinician [phone] DEBORAH WINSLOW Admitting Clinician Unavailab carmen GC_GCBZW_Cynthiaa_S Admitting Clinician Unavaila MORGAN Sawant Admitting Clinician Unavailable AMANDA POWER Admitting Clinician Unavailab ELIEZER Randall Admitting Clinician Unavailable Eliezer Klein DO Admitting Clinician [phone] Cristofer HENRY Admitting Clinician Unavailable Marium Dawson MD Admitting Clinician [phone] Anahy Owen MD Admitting Clinician [phone] Tiana Smith MD Admitting Clinician + [phone] TIANA SMITH Admitting Clinician Unavailab ANAHY Lowe Admitting Clinician Unavailable Payers Payer Name Policy Type Policy Number Effective Date Expirati on Date Source MEDICARE PART A \\T\\ B [id number] 2014 00:00:00 [place] [id number] 2014 00:00:00 Problems Condition Name Condition Details Condition Category Status Onset Date Resolution Date Last Treatment Date Treating Clinician Comments Source Chronic idiopathic urticaria Chronic idiopathic urticaria Disease Active 2022-09 00:00: 00 [facility] Chronic seasonal allergic rhinitis due to pollen Chronic seasonal allergic rhinitis due to pollen Disease Active 2022-09 00:00: 00 [facility] Chronic rhinitis Chronic rhinitis Disease Active 2022-09 00:00: 00 [facility] Allergic conjunctiv itis of both eyes Allergic conjunctiv itis of both eyes Disease Active 2022-09 00:00: 00 [facility] Anaphylaxi s, subsequent encounter Anaphylaxi s, subsequent encounter Disease Active 2021-09 00:00: 00 [facility] 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 2021-09 0 00:00: 00 [facility] Angioedema , initial encounter Angioedema , initial encounter Disease Active 10-15 00:00: 00 [facility] Allergic reaction, initial encounter Allergic reaction, initial encounter Disease Active 02-28 00:00: 00 [facility] Post-opera tive state Post-opera tive state Disease Active 02-28 00:00: 00 [facility] S/P laparoscop ic assisted vaginal hysterecto my (LAVH) S/P laparoscop ic assisted vaginal hysterecto my (LAVH) Disease Active 02-22 00:00: 00 [facility] Crohn disease Crohn disease Disease Active 05-11 00:00: 00 [facility] Obesity (BMI 30-39.9) Obesity (BMI 30-39.9) Disease Active 05-11 00:00: 00 [facility] Bipolar I disorder, most recent episode depressed Bipolar I disorder, most recent episode depressed Disease Active 03-16 00:00: 00 Overview: Formattin g of this note might be different from the original. ICD10 Diagnosis Term Risk Consultant Utility [facility] Pelvic pain Pelvic pain Disease Resolve d 6-18 00:00: 00 2021-07-11 00:00:00 2021-07-11 18:15:54 [facility] Abnormal uterine bleeding (AUB) Abnormal uterine bleeding (AUB) Disease Resolve d 5-19 00:00: 00 2021-07-11 00:00:00 2021-07-11 18:15:53 [facility] Undifferen tiated abdominal pain Undifferen tiated abdominal pain Disease Resolve d 2019-09 0-17 00:00: 00 2021-02-28 00:00:00 2021-02-28 16:17:34 [facility] Intractabl e nausea and vomiting Intractabl e nausea and vomiting Disease Resolve d 6-20 00:00: 00 2021-02-28 00:00:00 2021-02-28 16:17:30 [facility] Fever and chills Fever and chills Disease Resolve d 5-27 00:00: 00 2021-02-28 00:00:00 2021-02-28 16:17:32 [facility] Allergies, Adverse Reactions, Alerts Allergy Name Allergy Type Status Severity Reaction(s) Onset Date Inactive Date Treating Clinician Comments Source Prochlor perazine Propensi ty to adverse reaction s Active Anaphylaxis 02-26 00:00: 00 [facility] PROCHLOR PERAZINE DRUG INGREDI Active Anaphylaxis 02-26 00:00: 00 [facility] Prochlor perazine Edisylat e Propensi ty to adverse reaction s Active Anaphylaxis 03-15 00:00: 00 [facility] PROCHLOR PERAZINE EDISYLAT E DRUG INGREDI Active Anaphylaxis 03-15 00:00: 00 [facility] Social History Social Habit Start Date Stop Date Quantity Comments Source History of tobacco use Passive smoker [facility] History SDOH Alcohol Frequency [facility] History SDOH Alcohol Std Drinks [facility] History SDOH Alcohol Binge [facility] Gender identity [facility] Sexual orientation [facility] Alcoholic beverage intake 2024-06-17 00:00:00 2024-06-17 00:00:00 Current drinker of alcohol (finding) [facility] Alcohol intake 2023-12-10 00:00:00 2023-12-10 00:00:00 Current drinker of alcohol (finding) [facility] Cigarettes smoked current (pack per day) - Reported 2023-02-04 00:00:00 2023-02-04 00:00:00 [facility] Cigarette pack-years 2023-02-04 00:00:00 2023-02-04 00:00:00 [facility] Tobacco use and exposure 2023-02-04 00:00:00 2023-02-04 00:00:00 Smokeless tobacco non-user [facility] Exposure to SARS-CoV-2 (event) 2022-12-23 00:00:00 2023-01-02 09:43:00 Not sure [facility] History of Social function 2021-02-21 00:00:00 2021-02-21 00:00:00 [facility] Alcohol Comment 2018-05-11 00:00:00 2018-05-11 00:00:00 Occasional [facility] Sex assigned at 1985 00:00:00 1985 00:00:00 [facility] Smoking Status Start Date Stop Date Source Ex-smoker 2023-02-04 00:00:00 2023-02-04 00:00:00 [facility] Medications Ordered Medication Name Filled Medication Name Start Date Stop Date Current Medication? Ordering Clinician Indication Dosage Frequency Signature (SIG) Comments Components Source omalizumab (XOLAIR) 150 mg/mL injection 2023-09 00:00: 00 Yes [id number] 300mg inject 2 Syringes under the skin every 2 (two) weeks. [facility] tacrolimus 1 mg capsule 2023-09 00:00: 00 Yes [id number] 2mg Take 2 capsules by mouth every 12 (twelve) hours. [facility] predniSONE 20 mg tablet 2023-09 00:00: 00 Yes [id number] 60mg Take 3 tablets by mouth every morning. [facility] azelastine 137 mcg (0.1 %) nasal spray 2023-09 00:00: 00 Yes [id number] 1{spray } Use 1 [place] in each nostril 2 (two) times daily as needed for Runny nose. Use in each nostril as directed [facility] fluticasone propionate 50 mcg/actuati on nasal spray 2023-09 00:00: 00 Yes [id number] 2{spray } Use 2 Sprays in each nostril in the morning. [facility] NaCl 0.9% (NS) bolus infusion 1,000 mL 2023-09 23:00: 00 06-18 01:22 :00 No 1000mL at 999 mL/hr, 1,000 mL, IV Infusion, ONCE, 1 dose, On 06/17/24 at 1800, SHEEBA [facility] predniSONE 20 mg tablet 2023-09 00:00: 00 07-14 00:00 :00 No [id number] 60mg Take 3 tablets by mouth every morning. [facility] tacrolimus 1 mg capsule 04-14 00:00: 00 07-14 00:00 :00 No [id number] 2mg Take 2 capsules by mouth every 12 (twelve) hours. [facility] diphenhydrA MINE (BENADRYL) injection 25 mg 03-12 16:15: 00 03-12 15:37 :00 No 25mg 25 mg, Intravenou s, ONCE, 1 dose, On 03/12/24 at 1115, Routine [facility] montelukast (SINGULAIR) tablet 10 mg 03-12 14:00: 00 Yes 10mg 10 mg, Oral, DAILY, First dose on 03/12/24 at 0900, Until Discontinu ed, Routine [facility] DULoxetine (CYMBALTA) capsule 30 mg 03-12 14:00: 00 Yes 30mg 30 mg, Oral, DAILY, First dose on 03/12/24 at 0900, Until Discontinu ed, Routine [facility] allopurinoL (ZYLOPRIM) tablet 300 mg 03-12 14:00: 00 Yes 300mg 300 mg, Oral, DAILY, First dose on 03/12/24 at 0900, Until Discontinu ed, Routine [facility] cetirizine (ZYRTEC) tablet 10 mg 03-12 14:00: 00 Yes 10mg 10 mg, Oral, DAILY, First dose on Wed03/12/24 at 0900, Until Discontinu ed, Routine [facility] famotidine (PEPCID (PF)) injection 20 mg 03-12 13:00: 00 Yes 20mg 20 mg, Slow IV Push, Q12H, First dose on Wed03/12/24 at 0800, Until Discontinu ed, Routine [facility] HYDROcodone -acetaminop hen (NORCO 5) 5-325 mg tablet 1 tablet 03-12 07:17: 01 Yes 1{tbl} 1 tablet, Oral, Q6HPRN, Starting on 03/12/24 at 0217, Until Discontinu ed, Routine, breakthrou gh pain [facility] acetaminoph en (TYLENOL) tablet 650 mg 03-12 07:16: 09 Yes 650mg 650 mg, Oral, Q6HPRN, Starting on Wed03/12/24 at 0216, Until Discontinu ed, Routine, Pain (scale 1-3), Temp > 38 C [facility] NaCl 0.9% (NS) IV infusion 1,000 mL 03-12 06:15: 00 Yes 1000mL at 100 mL/hr, IV Infusion, CONTINUOUS , Starting on 03/12/24 at 0115, Until Discontinu ed, Routine [facility] potassium chloride in water 10 mEq/100 mL RTU 10 mEq 03-12 06:00: 00 03-12 08:05 :00 No 10meq 10 mEq, IV Piggyback, Q1H, 2 doses, First dose on Wed03/12/24 at 0100, Last dose on Wed03/12/24 at 0200, Administer over 60 Minutes, 100 mL [facility] methylPREDN ISolone sod succ (SOLU-MEDRO L (PF)) injection 40 mg 03-12 05:00: 00 03-13 16:59 :00 No 40mg 40 mg, Intravenou s, Q6H, 6 doses, First dose (after last modificati on) on 03/12/24 at 0000, Last dose on 03/13/24 at 0600, 1 mL [facility] atorvastati n (LIPITOR) tablet 20 mg 03-12 02:00: 00 Yes 20mg 20 mg, Oral, QHS, First dose on 03/11/24 at 2100, Until Discontinu ed, Routine [facility] tacrolimus (PROGRAF) capsule 1 mg 03-12 01:00: 00 Yes 1mg 1 mg, Oral, Q12H, First dose on 03/11/24 at 2000, Until Discontinu ed, Routine, 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 [facility] ondansetron (ZOFRAN (PF)) injection 4 mg 03-11 23:04: 32 Yes 4mg 4 mg, Slow IV Push, Q6HPRN, Starting on 03/11/24 at 1804, Until Discontinu ed, Routine, Nausea and Vomiting (N/V) [facility] acetaminoph en (TYLENOL) tablet 650 mg 03-11 23:04: 21 03-12 07:17 :42 No 650mg 650 mg, Oral, Q6HPRN, Starting on 03/11/24 at 1804, Until 03/12/24 at 0217, Routine, Pain (scale 1-3), Temp > 38 C [facility] racEPINEPHr ine (S2 RACEMIC) 2.25 % nebulizer solution 0.5 mL 03-11 22:00: 00 03-11 21:07 :00 No .5mL 0.5 mL, Inhalation , ONCE, 1 dose, On 03/11/24 at 1700, [facility] famotidine (PEPCID (PF)) injection 20 mg 03-11 21:15: 00 03-11 21:15 :00 No 20mg 20 mg, Slow IV Push, ONCE, 1 dose, On 03/11/24 at 1615, [facility] tacrolimus 1 mg capsule 01-27 00:00: 00 04-14 00:00 :00 No [id number] 1mg Take 1 capsule by mouth every 12 (twelve) hours. [facility] EPINEPHrine (EPIPEN) 0.3 mg/0.3 mL injection 12-09 00:00: 00 Yes [id number] .3mg 0.3 mL by Intramuscu lar route as needed (anaphylax is). [facility] famotidine (PEPCID) 20 mg tablet 12-09 00:00: 00 Yes [id number] 20mg Take 1 tablet by mouth in the morning and 1 tablet in the evening. [facility] montelukast 10 mg tablet 12-09 00:00: 00 Yes [id number] 10mg Take 1 tablet by mouth in the morning. [facility] ketotifen 1 MG capsule 12-09 00:00: 00 03-11 00:00 :00 No [id number] 2mg Take 2 capsules by mouth in the morning and 2 capsules in the evening. [facility] tacrolimus 1 mg capsule 12-09 00:00: 00 01-25 00:00 :00 No [id number] 1mg Take 1 capsule by mouth every 12 (twelve) hours. [facility] predniSONE (DELTASONE) tablet 60 mg 2022-09 22:45: 00 09-04 23:06 :00 No 60mg 60 mg, Oral, ONCE, 1 dose, On 09/04/23 at 1645, SHEEBA [facility] maalox:diph enhydrAMINE :lidocaine 2 % viscous 1:1:1 ([facility]) oral suspension 15 mL 2022-09 22:30: 00 09-04 23:06 :00 No 15mL 15 mL, Oral, ONCE, 1 dose, On 09/04/23 at 1630, Routine [facility] ketorolac (TORADOL) injection 15 mg 2022-09 20:45: 00 09-04 19:42 :00 No 15mg 15 mg, Slow IV Push, ONCE, 1 dose, On 09/04/23 at 1445, SHEEBA [facility] dicyclomine (BENTYL) tablet 20 mg 2022-09 20:30: 00 09-04 20:40 :00 No 20mg 20 mg, Oral, ONCE, 1 dose, [facility]04[facility]23 [facility] 1430[facility] 0.9% (NS) bolus infusion 500 mL 2022-09 19:45: 00 09-04 23:06 :00 No 500mL at 999 mL/hr, 500 mL, IV Infusion, ONCE, 1 dose, On 09/04/23 at 1345, STAT [facility] ondansetron (ZOFRAN (PF)) injection 4 mg 2022-09 19:45: 00 09-04 19:42 :00 No 4mg 4 mg, Slow IV Push, ONCE, 1 dose, On 09/04/23 at 1345, SHEEBA [facility] predniSONE 20 mg tablet 2022-09 00:00: 00 12-29 00:00 :00 No [id number] Take 3 pills every morning by mouth, until gone [facility] omalizumab (XOLAIR) 150 mg/mL injection 2022-09 00:00: 00 07-12 00:00 :00 No [id number] 300mg inject 2 Syringes under the skin every 2 (two) weeks. [facility] azelastine 137 mcg (0.1 %) nasal spray 2022-09 00:00: 00 03-11 00:00 :00 No [id number] 1{spray } Use 1 [place] in each nostril in the morning and 1 [place] in the evening. Use in each nostril as directed [facility] olopatadine 0.1 % ophthalmic solution 2022-09 00:00: 00 03-11 00:00 :00 No [id number] 1[drp] Place 1 Drop in both eyes 2 (two) times daily as needed for Allergies (itchy eyes symptoms with allergies) . [facility] cromolyn 100 mg/5 mL solution 2022-09 00:00: 00 12-29 00:00 :00 No [id number] 200mg Take 10 mL by mouth 4 (four) times daily. [facility] predniSONE 20 mg tablet 2022-09 00:00: 00 09-04 00:00 :00 No [id number] Take 3 tablets PO with Pepcid and Benadryl in case of an Allergic Reaction [facility] ketotifen 1 MG capsule 02-04 00:00: 00 Yes [id number] 2mg Take 2 capsules by mouth in the morning and 2 capsules in the evening. [facility] EPINEPHrine (EPIPEN) 0.3 mg/0.3 mL injection 02-04 00:00: 00 12-09 00:00 :00 No [id number] .3mg 0.3 mL by Intramuscu lar route as needed (anaphylax is). [facility] famotidine (PEPCID) 20 mg tablet 02-04 00:00: 00 12-09 00:00 :00 No [id number] 20mg Take 1 tablet by mouth in the morning and 1 tablet in the evening. [facility] montelukast 10 mg tablet 02-04 00:00: 00 12-09 00:00 :00 No [id number] 10mg Take 1 tablet by mouth in the morning. [facility] ketotifen 1 MG capsule 02-04 00:00: 00 12-09 00:00 :00 No [id number] 2mg Take 2 capsules by mouth in the morning and 2 capsules in the evening. [facility] predniSONE 20 mg tablet 02-04 00:00: 00 06-11 00:00 :00 No Take 3 tablets PO with Pepcid and Benadryl in case of an Allergic Reaction [facility] dexamethaso ne (DECADRON) injection 10 mg 01-02 14:54: 00 01-02 14:56 :00 No [id number] 10mg [facility] methylPREDN ISolone (MEDROL, EHSAN,) 4 mg tablets 01-02 00:00: 00 02-04 00:00 :00 No [id number] follow package directions [facility] benzonatate 200 mg capsule 01-02 00:00: 00 01-13 04:59 :00 No [id number] 200mg Take 1 capsule by mouth 3 (three) times daily as needed for Cough for up to 10 days. [facility] doxycycline hyclate 100 mg tablet 01-02 00:00: 00 01-10 04:59 :00 No [id number] 100mg Take 1 tablet by mouth in the morning and 1 tablet in the evening. Do all this for 7 days. [facility] codeine-gua ifenesin 10-100 mg/5 mL oral solution 01-02 00:00: 00 01-08 04:59 :00 No 10mL Take 10 mL by mouth every 6 (six) hours as needed for Cough for up to 5 days. Indication s: cough [facility] risperiDONE 3 mg tablet 12-28 00:00: 00 03-11 00:00 :00 No 3mg Take 1 tablet by mouth at bedtime. [facility] DULoxetine 30 mg capsule 12-23 00:00: 00 Yes [facility] famotidine (PEPCID (PF)) injection 20 mg 12-07 18:15: 00 12-07 17:23 :00 No 20mg 20 mg, Slow IV Push, ONCE NOW, 1 dose, On Wed12/07/22 at 1315, SHEEBA [facility] racEPINEPHr ine (S2 RACEMIC) 2.25 % nebulizer solution 0.5 mL 12-07 17:15: 00 12-07 17:16 :00 No .5mL 0.5 mL, Inhalation , ONCE, 1 dose, On Wed12/07/22 at 1215, STAT [facility] diphenhydrA MINE (BENADRYL) injection 50 mg 12-07 17:15: 00 12-07 17:12 :00 No 50mg 50 mg, Slow IV Push, ONCE, 1 dose, On Wed12/07/22 at 1215, STAT [facility] dexamethaso ne sod phos PF injection 10 mg 12-07 17:15: 00 12-07 17:12 :00 No 10mg 10 mg, Slow IV Push, ONCE, 1 dose, On Wed12/07/22 at 1215, 1 mL [facility] diphenhydrA MINE (BENADRYL) 25 mg capsule 12-07 00:00: 00 Yes [id number] Take 2 tablets PO with Prednisone and Pepcid in case of an Allergic Reaction [facility] albuterol 90 mcg/actuati on inhaler 12-07 00:00: 00 Yes [id number] 2{puff} Inhale 2 Puffs every 4 (four) hours as needed for Wheezing, Shortness of Breath or Bronchospa sm (Allergic Reaction). [facility] famotidine (PEPCID) 20 mg tablet 2023-0 4-03 00:00: 00 02-04 00:00 :00 No [id number] Take 2 tablets PO in case of Allergic Reaction [facility] predniSONE 20 mg tablet - 00:00: 00 02-04 00:00 :00 No [id number] Take 3 tablets PO with Pepcid and Benadryl in case of an Allergic Reaction [facility] indomethaci n 50 mg capsule 11-30 00:00: 00 03-12 00:00 :00 No TAKE 1 CAPSULE (50 MG) BY ORAL ROUTE 1 TIME PER DAY WITH FOOD NEEDED FOR HAND PAIN [facility] allopurinoL 300 mg tablet 11-11 00:00: 00 Yes 300mg Take 1 tablet by mouth in the morning. [facility] doxycycline hyclate 100 mg capsule 11-05 00:00: 00 06-11 00:00 :00 No [id number] 100mg Take 1 capsule by mouth every 12 (twelve) hours. [facility] levalbutero l (XOPENEX) nebulizer solution 1.25 mg 09-27 14:00: 00 Yes 1.25mg 1.25 mg, Inhalation , TID, First dose on 09/27/22 at 0800, Until Discontinu ed, Routine [facility] ipratropium -albuteroL (DUONEB) 0.5 mg-3 mg(2.5 mg base)/3 mL nebulizer solution 3 mL 09-27 14:00: 00 Yes 3mL 3 mL, Inhalation , QID, First dose on 09/27/22 at 0800, Until Discontinu ed, Routine [facility] methylpredn isolone sod succ (SOLU-MEDRO L) injection 125 mg 09-27 12:00: 00 Yes 125mg 125 mg, Intravenou s, Q6H, First dose on 09/27/22 at 0600, Until Discontinu ed, Routine [facility] LORazepam (ATIVAN) injection 1 mg 09-27 07:30: 00 09-27 07:20 :00 No 1mg 1 mg, Slow IV Push, ONCE, 1 dose, On 09/27/22 at 0130, [facility] [facility] racEPINEPHr ine (S2 RACEMIC) 2.25 % nebulizer solution 0.5 mL 09-27 07:00: 00 09-27 07:04 :00 No .5mL 0.5 mL, Inhalation , ONCE, 1 dose, On 09/27/22 at 0100, [facility] famotidine (PEPCID (PF)) injection 20 mg 09-27 07:00: 00 09-27 07:05 :00 No 20mg 20 mg, Slow IV Push, ONCE, 1 dose, On 09/27/22 at 0100, [facility] diphenhydrA MINE (BENADRYL) injection 50 mg 09-27 07:00: 00 09-27 07:05 :00 No 50mg 50 mg, Slow IV Push, ONCE, 1 dose, On 09/27/22 at 0100, [facility] NaCl 0.9% (NS) bolus infusion 1,000 mL 09-20 01:15: 00 09-20 03:05 :00 No 1000mL at 999 mL/hr, 1,000 mL, IV Infusion, ONCE, 1 dose, On 09/19/22 at 1915, [facility] ondansetron (ZOFRAN (PF)) injection 4 mg 09-20 00:30: 00 09-20 00:36 :00 No 4mg 4 mg, Slow IV Push, ONCE, 1 dose, On 09/19/22 at 1830, [facility] famotidine (PEPCID (PF)) injection 20 mg 09-20 00:30: 00 09-20 00:36 :00 No 20mg 20 mg, Slow IV Push, ONCE, 1 dose, On 09/19/22 at 1830, [facility] ipratropium -albuteroL (DUONEB) 0.5 mg-3 mg(2.5 mg base)/3 mL nebulizer solution 3 mL 09-20 00:28: 00 09-20 00:36 :00 No 3mL 3 mL, Inhalation , ONCE, 1 dose, On Wed09/19/22 at 1830, [facility] methylPREDN ISolone 4 mg tablets 09-19 00:00: 00 02-04 00:00 :00 No [id number] Take by mouth SEE-INSTRU CTIONS. follow package directions [facility] omalizumab (XOLAIR) injection 150 mg 09-14 22:15: 00 09-15 10:14 :00 No [id number] 150mg [facility] omalizumab (XOLAIR) injection 09-11 00:00: 00 06-11 00:00 :00 No [id number] 300mg inject 2 Syringes under the skin every 2 (two) weeks. [facility] montelukast 10 mg tablet 09-11 00:00: 00 02-04 00:00 :00 No [id number] 10mg Take 1 tablet by mouth in the morning. [facility] EPINEPHrine (EPIPEN) 0.3 mg/0.3 mL injection 09-11 00:00: 00 02-04 00:00 :00 No [id number] .3mg 0.3 mL by Intramuscu lar route as needed (anaphylax is). [facility] ketorolac (TORADOL) injection 30 mg 2021-09 04:45: 00 08-29 03:54 :00 No 30mg 30 mg, Slow IV Push, ONCE, 1 dose, On Wed08/28/22 at 2245, Routine [facility] iopamidol (ISOVUE 370-500 mL) injection 75 mL 2021-09 04:15: 00 08-29 03:18 :00 No [id number] 75mL 75 mL, Intravenou s, ONCE, 1 dose, On Wed08/28/22 at 2215, Routine [facility] dexamethaso ne sod phos PF injection 10 mg 2021-09 04:00: 00 08-29 03:54 :00 No 10mg 10 mg, Slow IV Push, ONCE, 1 dose, On Wed08/28/22 at 2200, 1 mL [facility] FENTanyl PF (SUBLIMAZE (PF)) injection 50 mcg 2021-09 03:45: 00 08-29 03:06 :00 No 50ug 50 mcg, Slow IV Push, ONCE, 1 dose, On Wed08/28/22 at 2145, Routine [facility] NaCl 0.9% (NS) bolus infusion 1,000 mL 2021-09 03:45: 00 08-29 04:31 :00 No 1000mL at 999 mL/hr, 1,000 mL, IV Infusion, ONCE, 1 dose, On Wed08/28/22 at 2145, [facility] ondansetron (ZOFRAN (PF)) injection 4 mg 2021-09 03:00: 00 08-29 03:06 :00 No 4mg 4 mg, Slow IV Push, ONCE, 1 dose, On Wed08/28/22 at 2100, [facility] predniSONE 10 mg tablet 2021-09 00:00: 00 02-04 00:00 :00 No [id number] Take 3 tablets by mouth daily for 5 days then take 2 tablets by mouth daily for 5 days then take 1 tablet by mouth daily for 5 days then take 0.5 tablets by mouth daily for 4 days then stop. [facility] omalizumab (XOLAIR) injection 150 mg 2021-09 17:45: 00 08-17 16:53 :00 No [id number] 150mg [facility] diphenhydrA MINE (BENADRYL) injection 50 mg 2021-09 17:55: 54 Yes 50mg 50 mg, Intravenou s, Q6HPRN, Starting on Wed08/15/22 at 1155, Until Discontinu ed, Routine, Itching, rash [facility] dicyclomine (BENTYL) 10 mg capsule 2021-09 17:15: 49 Yes 10mg Take 1 capsule by mouth 4 (four) times daily as needed for Abdominal pain. [facility] diphenhydrA MINE (BENADRYL) injection 50 mg 2021-09 16:45: 00 08-15 16:00 :00 No 50mg 50 mg, Intravenou s, ONCE, 1 dose, On 08/15/22 at 1045, Routine [facility] montelukast (SINGULAIR) tablet 10 mg 2021-09 15:00: 00 Yes 10mg 10 mg, Oral, DAILY, First dose on 08/15/22 at 0900, Until Discontinu ed, Routine [facility] lamoTRIgine (LAMICTAL) tablet 200 mg 2021-09 15:00: 00 Yes 200mg 200 mg, Oral, DAILY, First dose on 08/15/22 at 0900, Until Discontinu ed, Routine [facility] fluticasone propionate 50 mcg/actuati on nasal spray 1 [place] 2021-09 15:00: 00 Yes 1{spray } 1 [place], Nasal, DAILY, First dose on 08/15/22 at 0900, Until Discontinu ed, Routine [facility] atorvastati n (LIPITOR) tablet 20 mg 2021-09 03:00: 00 Yes 20mg 20 mg, Oral, QHS, First dose on Wed08/14/22 at 2100, Until Discontinu ed, Routine [facility] methylPREDN ISolone sod succ (SOLU-MEDRO L (PF)) injection 40 mg 2021-09 02:00: 00 Yes 40mg 40 mg, Intravenou s, Q12H, First dose on Wed08/14/22 at 2000, Until Discontinu ed, 1 mL [facility] famotidine (PEPCID AC) tablet 20 mg 2021-09 02:00: 00 Yes 20mg 20 mg, Oral, BID, First dose on Wed08/14/22 at 2000, Until Discontinu ed, Routine [facility] cetirizine (ZYRTEC) tablet 10 mg 2021-09 02:00: 00 Yes 10mg 10 mg, Oral, BID, First dose on Wed08/14/22 at 2000, Until Discontinu ed, Routine [facility] hydralAZINE (APRESOLINE ) injection 10 mg 2021-09 01:01: 30 Yes 10mg 10 mg, Slow IV Push, Q4HPRN, Starting on Wed08/14/22 at 1901, Until Discontinu ed, Routine, DBP=>100; SBP=>160, For SBP > 160 [facility] ALPRAZolam (XANAX) tablet 0.25 mg 2021-09 00:47: 21 Yes .25mg 0.25 mg, Oral, TIDPRN, Starting on Wed08/14/22 at 1847, Until Discontinu ed, Routine, anxiety [facility] ondansetron (ZOFRAN) 4 mg/5 mL solution 4 mg 2021-09 00:47: 10 Yes 4mg 4 mg, Oral, Q6HPRN, Starting on Wed08/14/22 at 1847, Until Discontinu ed, Routine, Nausea and Vomiting (N/V) [facility] dicyclomine (BENTYL) capsule 10 mg 2021-09 00:00: 32 Yes 10mg 10 mg, Oral, QIDPRN, Starting on Wed08/14/22 at 1800, Until Discontinu ed, Routine, Abdominal pain [facility] cyclobenzap rine (FLEXERIL) tablet 10 mg 2021-09 00:00: 26 Yes 10mg 10 mg, Oral, QHSPRN, Starting on Wed08/14/22 at 1800, Until Discontinu ed, Routine, Muscle Spasms [facility] albuterol (VENTOLIN) inhaler 2 Puff 2021-09 00:00: 03 Yes 2{puff} 2 Puff, Inhalation , Q6HPRN, Starting on Wed08/14/22 at 1800, Until Discontinu ed, Routine, Wheezing, Shortness of Breath [facility] predniSONE 20 mg tablet 2021-09 00:00: 00 08-19 05:59 :00 No [id number] 40mg Take 2 tablets by mouth in the morning for 3 days. [facility] enoxaparin (LOVENOX) injection 40 mg 2021-09 23:00: 00 Yes 40mg 40 mg, Subcutaneo us, DAILY, First dose on Wed08/14/22 at 1700, Until Discontinu ed, Routine [facility] KCL 20 mEq/15 mL solution 40 mEq 2021-09 22:00: 00 08-14 21:08 :00 No 40meq 40 mEq, Oral, ONCE, 1 dose, On Wed08/14/22 at 1600, Routine [facility] NaCl 0.9% (NS) IV infusion 1,000 mL 2021-09 20:30: 00 08-14 20:02 :00 No 1000mL at 999 mL/hr, Intravenou s, ONCE, 1 dose, On Wed08/14/22 at 1430, [facility] racEPINEPHr ine (S2 RACEMIC) 2.25 % nebulizer solution 0.5 mL 2021-09 19:30: 00 08-14 19:32 :00 No .5mL 0.5 mL, Inhalation , ONCE, 1 dose, On Wed08/14/22 at 1330, STAT [facility] famotidine (PEPCID (PF)) injection 20 mg 2021-09 19:21: 00 08-14 19:22 :00 No 20mg 20 mg, Slow IV Push, ONCE, 1 dose, On Wed08/14/22 at 1330, [facility] omalizumab (XOLAIR) injection 2021-09 00:00: 00 09-11 00:00 :00 No 450mg inject 3 Syringes under the skin every 4 (four) weeks. [facility] EPINEPHrine 0.3 mg/0.3 mL injection 2021-09 00:00: 00 08-15 05:59 :00 No [id number] .3mg 0.3 mL by Intramuscu lar route once now for 1 dose. [facility] omalizumab (XOLAIR) injection 150 mg 2021-09 19:00: 00 07-22 18:05 :00 No [id number] [facility] predniSONE (DELTASONE) tablet 40 mg 2021-09 16:45: 00 06-28 16:49 :00 No 40mg 40 mg, Oral, ONCE, 1 dose, On 06/28/22 at 1145, Routine [facility] montelukast (SINGULAIR) tablet 10 mg 2021-09 14:00: 00 Yes 10mg 10 mg, Oral, DAILY, First dose on 06/28/22 at 0900, Until Discontinu ed, [facility] lamoTRIg[facility] (LAMICTAL) tablet 200 mg 2021-09 14:00: 00 Yes 200mg 200 mg, Oral, QAM, First dose on 06/28/22 at 0900, Until Discontinu ed, Routine [facility] fluticasone propionate 50 mcg/actuati on nasal spray 1 [place] 2021-09 14:00: 00 Yes 1{spray } 1 [place], Nasal, DAILY, First dose on 06/28/22 at 0900, Until Discontinu ed, Routine [facility] atorvastati n (LIPITOR) tablet 20 mg 2021-09 14:00: 00 Yes 20mg 20 mg, Oral, DAILY, First dose on 06/28/22 at 0900, Until Discontinu ed, Routine [facility] enoxaparin (LOVENOX) injection 40 mg 2021-09 14:00: 00 Yes 40mg 40 mg, Subcutaneo us, DAILY, First dose on 06/28/22 at 0900, Until Discontinu ed, Routine [facility] dicyclomine (BENTYL) 10 mg capsule 2021-09 13:32: 28 Yes 10mg Take 10 mg by mouth 4 (four) times daily as needed for Abdominal pain. [facility] famotidine (PEPCID AC) tablet 20 mg 2021-09 13:00: 00 Yes 20mg 20 mg, Oral, BID, First dose on 06/28/22 at 0800, Until Discontinu ed, Routine [facility] acetaminoph en (TYLENOL) tablet 650 mg 2021-09 12:31: 12 Yes 650mg 650 mg, Oral, Q6HPRN, Starting on 06/28/22 at 0731, Until Discontinu ed, Routine, Pain (scale 1-3) [facility] NaCl 0.9% (NS) IV infusion 1,000 mL 2021-09 05:30: 00 Yes 1000mL at 125 mL/hr, IV Infusion, CONTINUOUS , Starting on 06/28/22 at 0030, Until Discontinu ed, Routine [facility] ondansetron (ZOFRAN (PF)) injection 4 mg 2021-09 03:07: 06 Yes 4mg 4 mg, Slow IV Push, Q6HPRN, Starting on 06/27/22 at 2207, Until Discontinu ed, Routine, Nausea and Vomiting (N/V) [facility] NaCl 0.9% (NS) IV infusion 1,000 mL 2021-09 03:00: 00 06-28 11:00 :00 No 1000mL at 125 mL/hr, IV Infusion, ONCE, 1 dose, On 06/27/22 at 2200, Routine [facility] KCL (KLOR-CON M20) tablet 40 mEq 2021-09 03:00: 00 06-28 02:33 :00 No 40meq 40 mEq, Oral, ONCE, 1 dose, On 06/27/22 at 2200, Routine [facility] hydrOXYzine (ATARAX) tablet 25 mg 2021-09 01:43: 10 Yes 25mg 25 mg, Oral, Q8HPRN, Starting on 06/27/22 at 2043, Until Discontinu ed, Itching [facility] dicyclomine (BENTYL) capsule 10 mg 2021-09 01:42: 46 Yes 10mg 10 mg, Oral, QIDPRN, Starting on 06/27/22 at 2041, Until Discontinu ed, Routine, Abdominal pain [facility] cyclobenzap rine (FLEXERIL) tablet 10 mg 2021-09 01:42: 33 Yes 10mg 10 mg, Oral, QHSPRN, Starting on 06/27/22 at 2041, Until Discontinu ed, Routine, Muscle Spasms [facility] predniSONE 20 mg tablet 2021-09 00:00: 00 07-02 04:59 :00 No [id number] 40mg Take 2 tablets by mouth in the morning for 3 days. [facility] EPINEPHrine 0.3 mg/0.3 mL injection 2021-09 00:00: 00 06-29 04:59 :00 No [id number] .3mg 0.3 mL by Intramuscu lar route once now for 1 dose. [facility] loratadine (CLARITIN) tablet 10 mg 2021-09 23:00: 00 Yes 10mg 10 mg, Oral, DAILY, First dose on 06/27/22 at 1800, Until Discontinu ed, Routine [facility] methylpredn isolone sod succ (SOLU-MEDRO L) injection 60 mg 2021-09 23:00: 00 06-28 15:45 :52 No 60mg 60 mg, Intravenou s, Q6H, 4 doses, First dose on 06/27/22 at 1800, Last dose on Wed06/28/22 at 1200, 2 mL [facility] NaCl 0.9% (NS) bolus infusion 1,000 mL 2021-09 20:30: 00 06-27 22:00 :00 No 1000mL at 999 mL/hr, 1,000 mL, IV Piggyback, ONCE, 1 dose, On 06/27/22 at 1530, STAT [facility] proMETHazin e (PHENERGAN) 25 mg in NaCl 0.9% (NS) 50 mL IV piggyback 2021-09 20:00: 00 06-27 19:58 :00 No 25mg 25 mg, IV Piggyback, ONCE, 1 dose, [facility]27/22 at 1500[facility] 20 mg 2021-09 0 19:00: 00 06-27 19:17 :00 No 20mg 20 mg, Slow IV Push, ONCE, 1 dose, On 06/27/22 at 1400[facility] racEPINEPHr ine (S2 RACEMIC) 2.25 % nebulizer solution 0.5 mL 2021-09 19:00: 00 06-27 18:51 :00 No .5mL 0.5 mL, Inhalation , ONCE, 1 dose, On 06/27/22 at 1400, STAT [facility] omalizumab (XOLAIR) injection 150 mg 2021-09 18:00: 00 06-25 17:06 :00 No [id number] 150mg [facility] omalizumab (XOLAIR) injection 150 mg - 17:45: 00 05-28 17:10 :00 No [id number] 150mg [facility] omalizumab (XOLAIR) injection 150 mg 8-25 17:30: 00 04-30 16:42 :00 No [id number] 150mg [facility] famotidine (PEPCID) 20 mg tablet - 00:00: 00 02-04 00:00 :00 No [id number] 20mg Take 1 tablet by mouth in the morning and 1 tablet in the evening. [facility] montelukast 10 mg tablet 8-25 00:00: 00 09-11 00:00 :00 No [id number] 10mg Take 1 tablet by mouth in the morning. [facility] cetirizine 10 mg tablet 7-28 00:00: 00 09-30 05:59 :00 No [id number] 10mg Take 1 tablet by mouth in the morning and 1 tablet in the evening. Do all this for 180 days. [facility] omalizumab (XOLAIR) injection 01-09 00:00: 00 08-14 00:00 :00 No 450mg inject 3 Syringes under the skin every 4 (four) weeks. [facility] famotidine (PEPCID) 20 mg tablet 01-09 00:00: 00 04-30 00:00 :00 No [id number] 20mg Take 1 tablet by mouth 2 (two) times daily. [facility] montelukast 10 mg tablet 01-09 00:00: 00 04-30 00:00 :00 No [id number] 10mg Take 1 tablet by mouth daily. [facility] ondansetron 4 mg disintegrat ing tablet 11-22 00:00: 00 03-12 00:00 :00 No [id number] 4mg Take 1 tablet by mouth every 8 (eight) hours as needed for Nausea and Vomiting (N/V). [facility] dicyclomine (BENTYL) 10 mg capsule 10-16 14:50: 58 Yes 10mg Take 10 mg by mouth 4 (four) times daily as needed for Abdominal pain. [facility] fluticasone propionate 50 mcg/actuati on nasal spray 09-27 00:00: 00 03-11 00:00 :00 No [id number] 1{spray } Use 1 [place] in each nostril daily. [facility] azelastine 137 mcg (0.1 %) nasal spray - 00:00: 00 06-11 00:00 :00 No [id number] 1{spray } Use 1 [place] in each nostril 2 (two) times daily. Use in each nostril as directed [facility] EPINEPHrine 0.3 mg/0.3 mL injection 1-03 00:00: 00 06-28 00:00 :00 No [facility] risperiDONE (RISPERDAL) 3 mg tablet 2020-09 1-16 14:07: 54 07-22 00:00 :00 No 3mg Take 3 mg by mouth at bedtime. [facility] atorvastati n 20 mg tablet 03-29 00:00: 00 Yes TAKE 1 TABLET BY MOUTH EVERY DAY DIRECTED [facility] albuterol 90 mcg/actuati on inhaler 02-28 00:00: 00 03-11 00:00 :00 No [id number] 2{puff} Inhale 2 Puffs every 6 (six) hours as needed for Wheezing or Shortness of Breath. [facility] famotidine (PEPCID) 40 mg tablet 02-26 00:00: 00 10-16 00:00 :00 No [id number] 40mg Take 1 tablet by mouth daily. [facility] predniSONE 20 mg tablet 02-26 00:00: 00 03-18 00:00 :00 No [id number] TAKE ONE TABLET BY MOUTH DAILY [facility] lithium carbonate 300 mg capsule 02-26 00:00: 00 03-18 00:00 :00 No [facility] docusate 100 mg capsule 02-22 00:00: 00 11-14 00:00 :00 No [id number] 100mg Take 1 capsule by mouth 2 (two) times daily as needed for Constipati on. [facility] cyclobenzap rine 10 mg tablet 01-09 00:00: 00 07-14 00:00 :00 No 10mg Take 10 mg by mouth at bedtime as needed for Muscle Spasms. [facility] meloxicam 15 mg tablet 01-09 00:00: 00 07-22 00:00 :00 No 15mg Take 15 mg by mouth daily. [facility] cetirizine 10 mg tablet 4-09 00:00: 00 04-11 00:00 :00 No 10mg Take 10 mg by mouth every morning. [facility] ondansetron 4 mg disintegrat ing tablet 09-28 00:00: 00 03-12 00:00 :00 No [id number] 4mg Take 1 tablet by mouth every 8 (eight) hours as needed for Nausea and Vomiting (N/V). [facility] acetaminoph en 500 mg tablet 2019-09 2 00:00: 00 06-27 00:00 :00 No 500mg Take 500 mg by mouth. [facility] traZODone 100 mg tablet 2019-09 00:00: 00 06-28 00:00 :00 No 100mg Take 100 mg by mouth at bedtime as needed for Insomnia. [facility] pantoprazol e 40 mg EC tablet 2019-09 00:00: 00 11-14 00:00 :00 No 40mg Take 40 mg by mouth daily. [facility] SUMAtriptan 25 mg tablet 2019-09 00:00: 00 Yes PLEASE SEE ATTACHED FOR DETAILED DIRECTIONS [facility] lamoTRIgine 100 mg tablet 2019-09 00:00: 00 03-11 00:00 :00 No 200mg Take 2 tablets by mouth every morning. [facility] topiramate 50 mg tablet 2019-09 00:00: 00 07-22 00:00 :00 No TAKE 1 TABLET (50 MG) BY ORAL ROUTE 1 TIMES PER DAY [facility] VENTOLIN HFA 90 mcg/actuati on inhaler 06-04 00:00: 00 03-11 00:00 :00 No INHALE ONE (1) PUFF(S) BY MOUTH EVERY FOUR HOURS. [facility] fluticasone propionate 50 mcg/actuati on nasal spray 06-04 00:00: 00 10-16 00:00 :00 No INSTILL ONE (1) SPRAY(S) INTO EACH NOSTRIL TWICE A DAY. [facility] proMETHazin e 25 mg tablet 02-26 00:00: 00 03-12 00:00 :00 No [id number] 25mg Take 1 tablet by mouth every 6 (six) hours as needed for Nausea and Vomiting (N/V). [facility] hydrOXYzine 25 mg capsule 2018-09 00:00: 00 03-11 00:00 :00 No 25mg Take 1 capsule by mouth 3 (three) times daily as needed for Itching. [facility] lisinopril 20 mg tablet 2018-09 00:00: 00 07-22 00:00 :00 No [facility] STELARA 45 mg/0.5 mL SC injection 2018-09 00:00: 00 Yes INJECT 45MG (1 SYRINGE) SUBCUTANEO USLY EVERY 8 WEEKS. [facility] Immunizations Ordered Immunization Name Filled Immunization Name Date Status Comments Source Influenza Virus Vaccine Quad .5 mL IM 6+ MO 2020-06-23 00:00:00 Completed [facility] Influenza Virus Vaccine Quad .5 mL IM 6+ MO 2020-06-23 00:00:00 Completed [facility] Influenza Virus Vaccine Quad .5 mL IM 6+ MO 2020-06-23 00:00:00 Completed [facility] Influenza Virus Vaccine Quad .5 mL IM 6+ MO 2020-06-23 00:00:00 Completed [facility] Influenza Virus Vaccine Quad .5 mL IM 6+ MO 2020-06-23 00:00:00 Completed [facility] Influenza Virus Vaccine Quad .5 mL IM 6+ MO 2020-06-23 00:00:00 Completed [facility] Influenza Virus Vaccine Quad .5 mL IM 6+ MO 2020-06-23 00:00:00 Completed [facility] Influenza Virus Vaccine Quad .5 mL IM 6+ MO 2020-06-23 00:00:00 Completed [facility] Influenza Virus Vaccine Quad .5 mL IM 6+ MO 2020-06-23 00:00:00 Completed [facility] Influenza Virus Vaccine Quad .5 mL IM 6+ MO 2020-06-23 00:00:00 Completed [facility] Influenza Virus Vaccine Quad .5 mL IM 6+ MO 2020-06-23 00:00:00 Completed [facility] Influenza Virus Vaccine Quad .5 mL IM 6+ MO 2020-06-23 00:00:00 Completed [facility] Influenza Virus Vaccine Quad .5 mL IM 6+ MO 2020-06-23 00:00:00 Completed [facility] Influenza Virus Vaccine Quad .5 mL IM 6+ MO 2020-06-23 00:00:00 Completed [facility] Influenza Virus Vaccine Quad .5 mL IM 6+ MO 2020-06-23 00:00:00 Completed [facility] Influenza Virus Vaccine Quad .5 mL IM 6+ MO 2020-06-23 00:00:00 Completed [facility] Influenza Virus Vaccine Quad .5 mL IM 6+ MO 2020-06-23 00:00:00 Completed [facility] Influenza Virus Vaccine Quad .5 mL IM 6+ MO 2020-06-23 00:00:00 Completed [facility] Influenza Virus Vaccine Quad .5 mL IM 6+ MO 2020-06-23 00:00:00 Completed [facility] Influenza Virus Vaccine Quad .5 mL IM 6+ MO 2020-06-23 00:00:00 Completed [facility] Influenza Virus Vaccine Quad .5 mL IM 6+ MO 2020-06-23 00:00:00 Completed [facility] Influenza Virus Vaccine Quad .5 mL IM 6+ MO 2020-06-23 00:00:00 Completed [facility] Influenza Virus Vaccine Quad .5 mL IM 6+ MO 2020-06-23 00:00:00 Completed [facility] Influenza Virus Vaccine Quad .5 mL IM 6+ MO 2020-06-23 00:00:00 Completed [facility] Influenza Virus Vaccine Quad .5 mL IM 6+ MO 2020-06-23 00:00:00 Completed [facility] Influenza Virus Vaccine Quad .5 mL IM 6+ MO 2020-06-23 00:00:00 Completed [facility] Influenza Virus Vaccine Quad .5 mL IM 6+ MO 2020-06-23 00:00:00 Completed [facility] Influenza Virus Vaccine Quad .5 mL IM 6+ MO 2020-06-23 00:00:00 Completed [facility] Influenza Virus Vaccine Quad .5 mL IM 6+ MO 2020-06-23 00:00:00 Completed [facility] Influenza Virus Vaccine Quad .5 mL IM 6+ MO 2020-06-23 00:00:00 Completed [facility] Influenza Virus Vaccine Quad .5 mL IM 6+ MO 2020-06-23 00:00:00 Completed [facility] Influenza Virus Vaccine Quad .5 mL IM 6+ MO 2020-06-23 00:00:00 Completed [facility] Influenza Virus Vaccine Quad .5 mL IM 6+ MO 2020-06-23 00:00:00 Completed [facility] Influenza Virus Vaccine Quad .5 mL IM 6+ MO (FLUZONE/FLULAVAL/F LUARIX) 2020-06-23 00:00:00 Completed [facility] Influenza Virus Vaccine Quad .5 mL IM 6+ MO (FLUZONE/FLULAVAL/F LUARIX) 2020-06-23 00:00:00 Completed [facility] Influenza Virus Vaccine 2019-08-06 00:00:00 Completed [facility] [facility] Influenza Virus Vaccine 2019-08-06 00:00:00 Completed [facility] Influenza Virus Vaccine 2019-08-06 00:00:00 Completed [facility] Influenza Virus Vaccine 2019-08-06 00:00:00 Completed [facility] Influenza Virus Vaccine 2019-08-06 00:00:00 Completed [facility] Influenza Virus Vaccine 2019-08-06 00:00:00 Completed [facility] Influenza Virus Vaccine 2019-08-06 00:00:00 Completed [facility] Influenza Virus Vaccine 2019-08-06 00:00:00 Completed [facility] Influenza Virus Vaccine 2019-08-06 00:00:00 Completed [facility] Influenza Virus Vaccine 2019-08-06 00:00:00 Completed [facility] Influenza Virus Vaccine 2019-08-06 00:00:00 Completed [facility] Influenza Virus Vaccine 2019-08-06 00:00:00 Completed [facility] Influenza Virus Vaccine 2019-08-06 00:00:00 Completed [facility] Influenza Virus Vaccine 2019-08-06 00:00:00 Completed [facility] Influenza Virus Vaccine 2019-08-06 00:00:00 Completed [facility] Influenza Virus Vaccine 2019-08-06 00:00:00 Completed [facility] Influenza Virus Vaccine 2019-08-06 00:00:00 Completed [facility] Influenza Virus Vaccine 2019-08-06 00:00:00 Completed [facility] Influenza Virus Vaccine 2019-08-06 00:00:00 Completed [facility] Influenza Virus Vaccine 2019-08-06 00:00:00 Completed [facility] Influenza Virus Vaccine 2019-08-06 00:00:00 Completed [facility] Influenza Virus Vaccine 2019-08-06 00:00:00 Completed [facility] Influenza Virus Vaccine 2019-08-06 00:00:00 Completed [facility] Influenza Virus Vaccine 2019-08-06 00:00:00 Completed [facility] Influenza Virus Vaccine 2019-08-06 00:00:00 Completed [facility] Influenza Virus Vaccine 2019-08-06 00:00:00 Completed [facility] Influenza Virus Vaccine 2019-08-06 00:00:00 Completed [facility] Influenza Virus Vaccine 2019-08-06 00:00:00 Completed [facility] Influenza Virus Vaccine 2019-08-06 00:00:00 Completed [facility] Influenza Virus Vaccine 2019-08-06 00:00:00 Completed [facility] Influenza Virus Vaccine 2019-08-06 00:00:00 Completed [facility] Influenza Virus Vaccine 2019-08-06 00:00:00 Completed [facility] Influenza Virus Vaccine 2019-08-06 00:00:00 Completed [facility] Influenza Virus Vaccine 2019-08-06 00:00:00 Completed [facility] Influenza Virus Vaccine 2019-08-06 00:00:00 Completed [facility] Influenza Virus Vaccine Unknown Completed [facility] Influenza Virus Vaccine Quad .5 mL IM 6+ MO (FLUZONE/FLULAVAL/F LUARIX) Unknown Completed [facility] Influenza Virus Vaccine Unknown Completed [facility] Influenza Virus Vaccine Quad .5 mL IM 6+ MO (FLUZONE/FLULAVAL/F LUARIX) Unknown Completed [facility] Influenza Virus Vaccine Unknown Completed [facility] Influenza Virus Vaccine Quad .5 mL IM 6+ MO (FLUZONE/FLULAVAL/F LUARIX) Unknown Completed [facility] Influenza Virus Vaccine Unknown Completed [facility] Influenza Virus Vaccine Quad .5 mL IM 6+ MO (FLUZONE/FLULAVAL/F LUARIX) Unknown Completed [facility] Influenza Virus Vaccine Unknown Completed [facility] Influenza Virus Vaccine Quad .5 mL IM 6+ MO (FLUZONE/FLULAVAL/F LUARIX) Unknown Completed [facility] Influenza Virus Vaccine Unknown Completed [facility] Influenza Virus Vaccine Quad .5 mL IM 6+ MO (FLUZONE/FLULAVAL/F LUARIX) Unknown Completed [facility] Influenza Virus Vaccine Unknown Completed [facility] Influenza Virus Vaccine Quad .5 mL IM 6+ MO (FLUZONE/FLULAVAL/F LUARIX) Unknown Completed [facility] Influenza Virus Vaccine Unknown Completed [facility] Influenza Virus Vaccine Quad .5 mL IM 6+ MO (FLUZONE/FLULAVAL/F LUARIX) Unknown Completed [facility] Influenza Virus Vaccine Unknown Completed [facility] Influenza Virus Vaccine Quad .5 mL IM 6+ MO (FLUZONE/FLULAVAL/F LUARIX) Unknown Completed [facility] Influenza Virus Vaccine Unknown Completed [facility] Influenza Virus Vaccine Quad .5 mL IM 6+ MO (FLUZONE/FLULAVAL/F LUARIX) Unknown Completed [facility] Influenza Virus Vaccine Unknown Completed [facility] Influenza Virus Vaccine Quad .5 mL IM 6+ MO (FLUZONE/FLULAVAL/F LUARIX) Unknown Completed [facility] Influenza Virus Vaccine Unknown Completed [facility] Influenza Virus Vaccine Quad .5 mL IM 6+ MO (FLUZONE/FLULAVAL/F LUARIX) Unknown Completed [facility] Influenza Virus Vaccine Unknown Completed [facility] Influenza Virus Vaccine Quad .5 mL IM 6+ MO (FLUZONE/FLULAVAL/F LUARIX) Unknown Completed [facility] Influenza Virus Vaccine Unknown Completed [facility] Influenza Virus Vaccine Quad .5 mL IM 6+ MO (FLUZONE/FLULAVAL/F LUARIX) Unknown Completed [facility] Influenza Virus Vaccine Unknown Completed [facility] Influenza Virus Vaccine Quad .5 mL IM 6+ MO (FLUZONE/FLULAVAL/F LUARIX) Unknown Completed [facility] Influenza Virus Vaccine Unknown Completed [facility] Influenza Virus Vaccine Quad .5 mL IM 6+ MO (FLUZONE/FLULAVAL/F LUARIX) Unknown Completed [facility] Influenza Virus Vaccine Unknown Completed [facility] Influenza Virus Vaccine Quad .5 mL IM 6+ MO (FLUZONE/FLULAVAL/F LUARIX) Unknown Completed [facility] Influenza Virus Vaccine Unknown Completed [facility] Influenza Virus Vaccine Quad .5 mL IM 6+ MO (FLUZONE/FLULAVAL/F LUARIX) Unknown Completed [facility] Influenza Virus Vaccine Unknown Completed [facility] Influenza Virus Vaccine Quad .5 mL IM 6+ MO (FLUZONE/FLULAVAL/F LUARIX) Unknown Completed [facility] Influenza Virus Vaccine Unknown Completed [facility] Influenza Virus Vaccine Quad .5 mL IM 6+ MO (FLUZONE/FLULAVAL/F LUARIX) Unknown Completed [facility] Influenza Virus Vaccine Unknown Completed [facility] Influenza Virus Vaccine Quad .5 mL IM 6+ MO (FLUZONE/FLULAVAL/F LUARIX) Unknown Completed [facility] Influenza Virus Vaccine Unknown Completed [facility] Influenza Virus Vaccine Quad .5 mL IM 6+ MO (FLUZONE/FLULAVAL/F LUARIX) Unknown Completed [facility] Influenza Virus Vaccine Unknown Completed [facility] Influenza Virus Vaccine Quad .5 mL IM 6+ MO (FLUZONE/FLULAVAL/F LUARIX) Unknown Completed [facility] Influenza Virus Vaccine Unknown Completed [facility] Influenza Virus Vaccine Quad .5 mL IM 6+ MO (FLUZONE/FLULAVAL/F LUARIX) Unknown Completed [facility] Vital Signs Vital Name Observation Time Observation Value Comments S ource Systolic blood pressure 2024-07-14 15:40:00 154 mm[Hg] [facility] Diastolic blood pressure 2024-07-14 15:40:00 73 mm[Hg] [facility] Heart rate 2024-07-14 15:40:00 79 /min [facility] Respiratory rate 2024-07-14 15:40:00 18 /min [facility] Body height 2024-07-14 15:40:00 160 cm [facility] Body weight 2024-07-14 15:40:00 72.485 kg [facility] BMI 2024-07-14 15:40:00 28.31 kg/m2 [facility] Oxygen saturation in Arterial blood by Pulse oximetry 2024-07-14 15:40:00 99 /min [facility] Systolic blood pressure 2024-06-18 02:00:00 132 mm[Hg] [facility] Diastolic blood pressure 2024-06-18 02:00:00 73 mm[Hg] [facility] Heart rate 2024-06-18 02:00:00 82 /min [facility] Body temperature 2024-06-18 02:00:00 37.06 Lashawn [facility] Respiratory rate 2024-06-18 02:00:00 15 /min [facility] Oxygen saturation in Arterial blood by Pulse oximetry 2024-06-18 02:00:00 96 /min [facility] Body height 2024-06-17 21:41:00 160 cm [facility] Body weight 2024-06-17 21:41:00 66.679 kg [facility] BMI 2024-06-17 21:41:00 26.04 kg/m2 [facility] Systolic blood pressure 2024-04-11 17:32:00 118 mm[Hg] [facility] Diastolic blood pressure 2024-04-11 17:32:00 66 mm[Hg] [facility] Heart rate 2024-04-11 17:32:00 77 /min [facility] Respiratory rate 2024-04-11 17:32:00 16 /min [facility] Body height 2024-04-11 17:32:00 160 cm [facility] Body weight 2024-04-11 17:32:00 68.811 kg [facility] BMI 2024-04-11 17:32:00 26.87 kg/m2 [facility] Oxygen saturation in Arterial blood by Pulse oximetry 2024-04-11 17:32:00 100 /min [facility] Heart rate 2024-03-12 15:00:00 82 /min [facility] Oxygen saturation in Arterial blood by Pulse oximetry 2024-03-12 15:00:00 97 /min [facility] Systolic blood pressure 2024-03-12 13:00:00 141 mm[Hg] [facility] Diastolic blood pressure 2024-03-12 13:00:00 74 mm[Hg] [facility] Respiratory rate 2024-03-12 12:18:00 18 /min [facility] Body temperature 2024-03-12 12:16:00 36 Lashawn [facility] Body weight 2024-03-12 09:00:00 62.959 kg [facility] BMI 2024-03-12 09:00:00 24.59 kg/m2 [facility] Body height 2024-03-11 21:10:00 160 cm [facility] Systolic blood pressure 2023-12-10 15:40:00 134 mm[Hg] [facility] Diastolic blood pressure 2023-12-10 15:40:00 87 mm[Hg] [facility] Heart rate 2023-12-10 15:40:00 73 /min [facility] Respiratory rate 2023-12-10 15:40:00 18 /min [facility] Body height 2023-12-10 15:40:00 160 cm [facility] Body weight 2023-12-10 15:40:00 63.05 kg [facility] BMI 2023-12-10 15:40:00 24.62 kg/m2 [facility] Oxygen saturation in Arterial blood by Pulse oximetry 2023-12-10 15:40:00 99 /min [facility] Systolic blood pressure 2023-09-04 23:02:00 101 mm[Hg] [facility] Diastolic blood pressure 2023-09-04 23:02:00 79 mm[Hg] [facility] Heart rate 2023-09-04 23:02:00 77 /min [facility] Respiratory rate 2023-09-04 23:02:00 16 /min [facility] Oxygen saturation in Arterial blood by Pulse oximetry 2023-09-04 23:02:00 97 /min [facility] Body temperature 2023-09-04 19:21:00 37.89 Lashawn [facility] Body height 2023-09-04 19:20:00 160 cm [facility] Body weight 2023-09-04 19:20:00 61.689 kg [facility] BMI 2023-09-04 19:20:00 24.09 kg/m2 [facility] Systolic blood pressure 2023-06-11 16:32:00 125 mm[Hg] [facility] Diastolic blood pressure 2023-06-11 16:32:00 78 mm[Hg] [facility] Heart rate 2023-06-11 16:32:00 68 /min [facility] Respiratory rate 2023-06-11 16:32:00 18 /min [facility] Body height 2023-06-11 16:32:00 160 cm [facility] Body weight 2023-06-11 16:32:00 69.446 kg [facility] BMI 2023-06-11 16:32:00 27.12 kg/m2 [facility] Oxygen saturation in Arterial blood by Pulse oximetry 2023-06-11 16:32:00 99 /min [facility] Systolic blood pressure 2023-02-04 15:56:00 128 mm[Hg] [facility] Diastolic blood pressure 2023-02-04 15:56:00 84 mm[Hg] [facility] Heart rate 2023-02-04 15:56:00 112 /min [facility] Respiratory rate 2023-02-04 15:56:00 18 /min [facility] Body height 2023-02-04 15:56:00 160 cm [facility] Body weight 2023-02-04 15:56:00 87.544 kg [facility] BMI 2023-02-04 15:56:00 34.19 kg/m2 [facility] Oxygen saturation in Arterial blood by Pulse oximetry 2023-02-04 15:56:00 97 /min [facility] Systolic blood pressure 2023-01-02 14:49:00 140 mm[Hg] [facility] Diastolic blood pressure 2023-01-02 14:49:00 83 mm[Hg] [facility] Heart rate 2023-01-02 14:48:00 104 /min [facility] Body temperature 2023-01-02 14:48:00 37.5 Lashawn [facility] Respiratory rate 2023-01-02 14:48:00 17 /min [facility] Body height 2023-01-02 14:48:[address] [facility] Body weight 2023-01-02 14:48:00 89.359 kg [facility] BMI 2023-01-02 14:48:00 34.90 kg/m2 [facility] Oxygen saturation in Arterial blood by Pulse oximetry 2023-01-02 14:48:00 98 /min [facility] Diastolic blood pressure 2022-12-07 18:30:00 108 mm[Hg] [facility] Heart rate 2022-12-07 18:30:00 110 /min [facility] Respiratory rate 2022-12-07 18:30:00 17 /min [facility] Oxygen saturation in Arterial blood by Pulse oximetry 2022-12-07 18:30:00 98 /min [facility] Systolic blood pressure 2022-12-07 18:30:00 165 mm[Hg] [facility] Body temperature 2022-12-07 17:17:00 38.17 Lashawn [facility] Body height 2022-12-07 17:10:00 162.6 cm [facility] Body weight 2022-12-07 17:10:00 87.544 kg [facility] BMI 2022-12-07 17:10:00 33.13 kg/m2 [facility] Systolic blood pressure 2022-11-26 16:28:00 133 mm[Hg] [facility] Diastolic blood pressure 2022-11-26 16:28:00 86 mm[Hg] [facility] Heart rate 2022-11-26 16:26:00 99 /min [facility] Respiratory rate 2022-11-26 16:26:00 18 /min [facility] Body height 2022-11-26 16:26:00 [facility] 2022-11-26 16:26:[address] [facility] BMI 2022-11-26 16:26:00 35.30 kg/m2 [facility] Oxygen saturation in Arterial blood by Pulse oximetry 2022-11-26 16:26:00 97 /min [facility] Systolic blood pressure 2022-11-12 16:25:00 151 mm[Hg] [facility] Diastolic blood pressure 2022-11-12 16:25:00 92 mm[Hg] [facility] Heart rate 2022-11-12 16:25:00 95 /min [facility] Oxygen saturation in Arterial blood by Pulse oximetry 2022-11-12 16:25:00 97 /min [facility] Body temperature 2022-11-12 16:23:00 36.5 Lashawn [facility] Respiratory rate 2022-11-12 16:23:00 18 /min [facility] Body height 2022-11-12 16:23:[address] [facility] Body weight 2022-11-12 16:23:[address] [facility] BMI 2022-11-12 16:23:00 34.53 kg/m2 [facility] Systolic blood pressure 2022-11-10 15:41:00 134 mm[Hg] [facility] Diastolic blood pressure 2022-11-10 15:41:00 83 mm[Hg] [facility] Heart rate 2022-11-10 15:41:00 102 /min [facility] Body temperature 2022-11-10 15:41:00 37.39 Lashawn [facility] Respiratory rate 2022-11-10 15:41:00 18 /min [facility] Body height 2022-11-10 15:41:00 157.5 cm [facility] Body weight 2022-11-10 15:41:00 86.212 [facility] BMI 2022-11-10 15:41:00 34.76 kg/m2 [facility] Oxygen saturation in Arterial blood by Pulse oximetry 2022-11-10 15:41:00 100 /min [facility] Systolic blood pressure 2022-11-05 14:46:00 136 mm[Hg] [facility] Diastolic blood pressure 2022-11-05 14:46:00 88 mm[Hg] [facility] Heart rate 2022-11-05 14:46:00 90 /min [facility] Body temperature 2022-11-05 14:46:00 36.56 Lashawn [facility] Respiratory rate 2022-11-05 14:46:00 18 /min [facility] Body height 2022-11-05 14:46:00 157.5 cm [facility] Body weight 2022-11-05 14:46:00 86.274 kg [facility] BMI 2022-11-05 14:46:00 34.79 kg/m2 [facility] Oxygen saturation in Arterial blood by Pulse oximetry 2022-11-05 14:46:00 98 /min [facility] Systolic blood pressure 2022-09-27 11:30:00 161 mm[Hg] [facility] Diastolic blood pressure 2022-09-27 11:30:00 85 mm[Hg] [facility] Heart rate 2022-09-27 11:30:00 116 /min [facility] Respiratory rate 2022-09-27 11:30:00 19 /min [facility] Oxygen saturation in Arterial blood by Pulse oximetry 2022-09-27 11:30:00 95 /min [facility] Body temperature 2022-09-27 07:27:00 38 Lashawn [facility] Body weight 2022-09-27 07:00:00 90.719 kg [facility] BMI 2022-09-27 07:00:00 33.28 kg/m2 [facility] Systolic blood pressure 2022-09-20 03:00:00 130 mm[Hg] [facility] Diastolic blood pressure 2022-09-20 03:00:00 65 mm[Hg] [facility] Heart rate 2022-09-20 03:00:00 106 /min [facility] Respiratory rate 2022-09-20 03:00:00 21 /min [facility] Oxygen saturation in Arterial blood by Pulse oximetry 2022-09-20 03:00:00 94 /min [facility] Body temperature 2022-09-20 00:10:00 37.94 Lashawn [facility] Body height 2022-09-20 00:10:00 165.1 cm [facility] Body weight 2022-09-20 00:10:00 87.544 kg [facility] BMI 2022-09-20 00:10:00 32.12 kg/m2 [facility] Systolic blood pressure 2022-09-11 14:52:00 143 mm[Hg] [facility] Diastolic blood pressure 2022-09-11 14:52:00 83 mm[Hg] [facility] Heart rate 2022-09-11 14:52:00 98 /min [facility] Body temperature 2022-09-11 14:52:00 36.94 Lashawn [facility] Respiratory rate 2022-09-11 14:52:00 20 /min [facility] Body height 2022-09-11 14:52:00 160 cm [facility] Body weight 2022-09-11 14:52:00 87.544 kg [facility] BMI 2022-09-11 14:52:00 34.19 kg/m2 [facility] Oxygen saturation in Arterial blood by Pulse oximetry 2022-09-11 14:52:00 98 /min [facility] Heart rate 2022-08-29 04:25:00 93 /min [facility] Respiratory rate 2022-08-29 04:25:00 21 /min [facility] Oxygen saturation in Arterial blood by Pulse oximetry 2022-08-29 04:25:00 95 /min [facility] Systolic blood pressure 2022-08-29 04:00:00 140 mm[Hg] [facility] Diastolic blood pressure 2022-08-29 04:00:00 76 mm[Hg] [facility] Body temperature 2022-08-29 02:57:00 37.56 Lashawn [facility] Body height 2022-08-29 02:57:00 160 cm [facility] Body weight 2022-08-29 02:57:00 83.008 kg [facility] BMI 2022-08-29 02:57:00 32.42 kg/m2 [facility] Systolic blood pressure 2022-08-17 15:45:00 142 mm[Hg] [facility] Diastolic blood pressure 2022-08-17 15:45:00 92 mm[Hg] [facility] Heart rate 2022-08-17 15:45:00 84 /min [facility] Body weight 2022-08-17 15:45:00 81.33 kg [facility] BMI 2022-08-17 15:45:00 31.76 kg/m2 [facility] Oxygen saturation in Arterial blood by Pulse oximetry 2022-08-17 15:45:00 96 /min [facility] Body temperature 2022-08-15 22:00:00 36.33 Lashawn [facility] Heart rate 2022-08-15 13:50:00 99 /min [facility] Respiratory rate 2022-08-15 13:50:00 18 /min [facility] [facility] Oxygen saturation in Arterial blood by Pulse oximetry 2022-08-15 13:50:00 96 /min [facility] Systolic blood pressure 2022-08-15 10:00:00 130 mm[Hg] [facility] Diastolic blood pressure 2022-08-15 10:00:00 74 mm[Hg] [facility] Body weight 2022-08-14 19:19:00 82.555 [facility] BMI 2022-08-14 19:19:00 32.24 kg/m2 [facility] Systolic blood pressure 2022-07-22 15:15:00 135 mm[Hg] [facility] Diastolic blood pressure 2022-07-22 15:15:00 81 mm[Hg] [facility] Heart rate 2022-07-22 15:15:00 97 /min [facility] Body weight 2022-07-22 15:15:00 82.555 kg [facility] BMI 2022-07-22 15:15:00 32.24 kg/m2 [facility] Oxygen saturation in Arterial blood by Pulse oximetry 2022-07-22 15:15:00 98 /min [facility] Systolic blood pressure 2022-06-28 16:00:00 130 mm[Hg] [facility] Diastolic blood pressure 2022-06-28 16:00:00 62 mm[Hg] [facility] Heart rate 2022-06-28 16:00:00 100 /min Unive [facility] Body temperature 2022-06-28 16:00:00 36.22 Lashawn [facility] Respiratory rate 2022-06-28 16:00:00 9 /min [facility] Oxygen saturation in Arterial blood by Pulse oximetry 2022-06-28 16:00:00 95 /min [facility] Body weight 2022-06-28 09:00:00 87.499 kg [facility] BMI 2022-06-28 09:00:00 34.17 kg/m2 [facility] Body height 2022-06-28 00:00:00 160 cm [facility] Systolic blood pressure 2022-06-25 14:10:00 131 mm[Hg] [facility] Diastolic blood pressure 2022-06-25 14:10:00 89 mm[Hg] [facility] Heart rate 2022-06-25 14:10:00 82 /[facility] 2022-06-25 14:10:00 83.598 kg [facility] BMI 2022-06-25 14:10:00 32.65 kg/m2 [facility] Oxygen saturation in Arterial blood by Pulse oximetry 2022-06-25 14:10:00 97 /min [facility] Systolic blood pressure 2022-05-28 14:40:00 124 mm[Hg] [facility] Diastolic blood pressure 2022-05-28 14:40:00 76 mm[Hg] [facility] Heart rate 2022-05-28 14:40:00 83 /min [facility] Body weight 2022-05-28 14:40:00 84.687 kg [facility] BMI 2022-05-28 14:40:00 33.07 kg/m2 [facility] Oxygen saturation in Arterial blood by Pulse oximetry 2022-05-28 14:40:00 96 /min [facility] Systolic blood pressure 2022-04-30 14:11:00 119 mm[Hg] [facility] Diastolic blood pressure 2022-04-30 14:11:00 79 mm[Hg] [facility] Heart rate 2022-04-30 14:11:00 83 /min [facility] Body temperature 2022-04-30 14:11:00 36.94 Lashawn [facility] Respiratory rate 2022-04-30 14:11:00 18 /min [facility] Body height 2022-04-30 14:11:00 160 cm [facility] Body weight 2022-04-30 14:11:00 81.784 kg [facility] BMI 2022-04-30 14:11:00 31.94 kg/m2 [facility] Oxygen saturation in Arterial blood by Pulse oximetry 2022-04-30 14:11:00 97 /min [facility] Procedures Procedure Date / Time Performed Performing Clinician Source CRITICAL CARE 2024-06-17 21:37:00 Ana Castillo [facility] BASIC METABOLIC PANEL (NA, K, CL, CO2, GLUCOSE, BUN, CREATININE, CA) 2024-03-12 11:16:00 Matilde Diego [facility] CBC WITH DIFF 2024-03-12 11:16:00 Matilde Diego [facility] COMP. METABOLIC PANEL ([id number]) 2024-03-12 01:36:00 Ronen Bettencourt [facility] CBC WITH DIFF 2024-03-12 01:36:00 Bettencourt, Mohammad A. [facility] CT ABDOMEN PELVIS WO CONTRAST 2023-09-04 20:03:32 Deborah Winslow [facility] URINALYSIS 2023-09-04 19:41:00 Deborah Winslow [facility] POCT TEST 2023-09-04 19:40:00 Minor Winslow [facility] CONSENT/REFUSAL FOR DIAGNOSIS AND TREATMENT 2023-09-04 19:14:02 Doctor Unassigned, [place] [facility] XR CHEST 2 VW 2023-01-02 15:11:00 Paige Jones [facility] CONSENT/REFUSAL FOR DIAGNOSIS AND TREATMENT 2022-12-07 17:05:24 Doctor Unassigned, [place] [facility] CONSENT/REFUSAL FOR DIAGNOSIS AND TREATMENT 2022-11-26 15:30:32 Doctor Unassigned, [place] [facility] DISCLOSURE AND CONSENT, MEDICAL AND SURGICAL PROCEDURES 2022-11-12 06:01:00 Doctor Unassigned, [place] [facility] XR HAND 3+ VW RIGHT 2022-11-10 15:55:[address] [facility] PATIENT FINANCIAL POLICY 2022-11-05 14:24:59 Doctor Unassigned, [place] [facility] EMERGENCY DEPARTMENT DOCUMENTS 2022-10-15 06:01:00 Doctor Unassigned, [place] [facility] XR CHEST 1 VW 2022-09-27 07:30:00 Morgan Vargas [facility] COMP. METABOLIC PANEL ([id number]) 2022-09-20 00:35:00 Meng Galicia [facility] CBC WITH DIFF 2022-09-20 00:35:00 Meng Galicia [facility] CT ABDOMEN PELVIS W CONTRAST 2022-08-29 03:21:00 Amanda Power [facility] LIPASE 2022-08-29 03:00:00 Amanda Power [facility] MAGNESIUM 2022-08-29 03:00:00 Amanda Power [facility] COMP. METABOLIC PANEL ([id number]) 2022-08-29 03:00:00 Amanda Power [facility] CBC WITH DIFF 2022-08-29 03:00:00 [facility] URINALYSIS 2022-08-29 03:00:00 Amanda [facility] NOTICE OF PRIVACY PRACTICES 2022-08-29 02:51:00 Doctor Unassigned, [place] [facility] CONSENT/REFUSAL FOR DIAGNOSIS AND TREATMENT 2022-08-29 02:49:23 Doctor Unassigned, [place] [facility] LACTIC ACID WHOLE BLOOD 2022-08-15 18:33:00 Ian Klein [facility] TEST, SERUM 2022-08-14 19:48:00 Jarrod Levy [facility] COMP. METABOLIC PANEL ([id number]) 2022-08-14 19:48:00 Frandy Levy [facility] CBC WITH DIFF 2022-08-14 19:48:00 Frandy Levy [facility] PROTHROMBIN TIME / INR 2022-08-14 19:48:00 Av Levy [facility] ACTIVATED PARTIAL THRMPLAS NKECHI 2022-08-14 19:48:00 Frandy Levy [facility] LACTIC ACID WHOLE BLOOD 2022-08-14 19:48:00 Dago Levy [facility] CRITICAL CARE 2022-08-14 19:11:00 Frandy Levy [facility] XR CHEST 2 VW 2022-06-27 19:48:40 Genaro Eubanks [facility] TEST, SERUM 2022-06-27 19:44:00 Genaro Eubanks [facility] THYROID STIMULATING HORMONE 2022-06-27 19:44:00 Nancy Brar [facility] COMP. METABOLIC PANEL ([id number]) 2022-06-27 19:44:00 Genaro Eubanks [facility] CBC WITH DIFF 2022-06-27 19:44:00 [facility] RAPID INFLUENZA A/B 2022-06-27 19:44:00 Genaro Eubanks [facility] RAPID RSV 2022-06-27 19:44:00 Genaro Eubanks [facility] COVID-19 (ID NOW RAPID TESTING) 2022-06-27 19:44:00 Genaro Eubanks [facility] Encounters Start Date/Time End Date/Time Encounter Type Admission Type Attending Clinicians Care Facility Care Department Encounter ID Source 2021-07-08 07:14:58 Emergency [facility] [id number] [facility] 2021-07-07 03:24:43 Emergency [facility] [id number] [facility] 2021-07-06 23:03:57 Inpatient R MARIUM DAWSON [facility] 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 [id number] [facility] 2021-07-05 19:04:39 Emergency [facility] [id number] [facility] 2021-07-04 23:32:26 Emergency [facility] [id number] [facility] 2021-07-03 22:25:44 Emergency [facility] [id number] [facility] 2024-07-17 00:00:00 2024-07-17 09:26:06 Specialty Pharmacy Melissa Prado Mai, Ngoc Mai [facility] 1..114 350.1.13.10 4.2.7.2.686 [id number] [facility] 2024-07-14 00:00:00 2024-07-17 09:02:35 Patient Secure g Catrachita Mercado [facility] 1.114 350.1.13.10 4.2.7.2.686 [id number] [facility] 2024-07-14 00:00:00 2024-07-14 16:32:54 Patient Secure Msg Catrachita Mercado [facility] 1..114 350.1.13.10 4.2.7.2.686 [id number] [facility] 2024-07-14 10:00:00 2024-07-14 11:04:45 Outpatient R CATRACHITA MERCADO [facility] [id number] [facility] 2024-07-14 10:00:00 2024-07-14 11:04:45 Office Visit Catrachita Mercado [facility] 1.2.840.114 350.1.13.10 4.2.7.2.686 [id number] [facility] 2024-07-12 00:00:00 2024-07-14 09:45:07 Andrew Bautista [facility] 1.2840.114 350.1.13.10 4.2.7.2.686 [id number] [facility] 2024-06-28 11:06:52 2024-06-28 11:06:52 Outpatient [facility] [id number] Terrence Velasco Justen 2024-06-17 16:44:00 2024-06-17 21:15:00 Emergency X ANA CASTILLO [facility] ERT [id number] [facility] 2024-06-17 16:44:00 2024-06-17 21:15:00 Emergency Ana Castillo [facility] 1.2.840.114 350.1.13.10 4.2.7.2.686 [id number] [facility] 2024-06-06 00:00:00 2024-06-06 10:35:06 Specialty Pharmacy Jane Angeles Monique [facility] 1.2.840.114 350.1.13.10 4.2.7.2.686 [id number] [facility] 2024-05-30 00:00:00 2024-05-30 12:34:04 Specialty Pharmacy Alysa Sprague [facility] 1.840.114 350.1.13.10 4.2.7.2.686 [id number] [facility] 2024-05-30 00:00:00 2024-05-30 11:55:21 Specialty Pharmacy Alysa Sprague Raven [facility] 1.840.114 350.1.13.10 4.2.7.2.686 [id number] [facility] 2024-05-09 08:18:51 2024-05-09 08:18:51 Outpatient [facility] [id number] Terrence Campuzano 2024-05-03 00:00:00 2024-05-03 09:54:46 Telephone Alysa Sprague Raven [facility] 1.840.114 350.1.13.10 4.2.7.2.686 [id number] [facility] 2024-04-29 00:00:00 2024-04-29 12:08:47 Specialty Pharmacy Jocelyn Batista Tamara L [facility] 1.0.114 350.1.13.10 4.2.7.2.686 [id number] [facility] 2024-04-14 00:00:00 2024-04-14 08:33:42 Patient Secure Msg Catrachita Mercado [facility] 1.0.114 350.1.13.10 4.2.7.2.686 [id number] [facility] 2024-04-11 13:45:00 2024-04-11 14:00:00 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 Catrachita Mercado [facility] 1.2.840.114 350.1.13.10 4.2.7.2.686 [id number] [facility] 2024-04-11 12:30:00 2024-04-11 13:21:55 Outpatient CATRACHITA LUNA [facility] [id number] [facility] 2024-04-11 12:30:00 2024-04-11 13:21:55 Office Visit Catrachita Mercado [facility] 1.2.840.114 350.1.13.10 4.2.7.2.686 [id number] [facility] 2024-03-29 00:00:00 2024-03-30 11:06:18 Telephone Radha Adams [facility] 1.2840.114 350.1.13.10 4.2.7.2.686 [id number] [facility] 2024-03-21 13:00:00 2024-03-21 13:00:00 Outpatient CATRACHITA LUNA [facility] [id number] [facility] 2024-03-14 00:00:00 2024-03-14 14:56:25 Transition of Care Omer Marley [facility] 1.2.840.114 350.1.13.10 4.2.7.2.686 [id number] [facility] 2024-03-14 13:00:00 2024-03-14 13:00:00 Outpatient CATRACHITA LUNA [facility] [id number] [facility] 2024-03-11 15:59:00 2024-03-12 11:09:00 Outpatient MATILDE KAY [facility] [id number] [facility] 2024-03-11 15:59:00 2024-03-12 11:09:00 Emergency Amanda Power Jelani [facility] 1.2.840.114 350.1.13.10 4.2.7.2.686 [id number] [facility] 2024-01-26 00:00:00 2024-02-26 18:16:54 Patient Secure Msg Doctor Unassigned, [place] [facility] ([facility]) 1.2.840.114 350.1.13.10 4.2.7.2.686 [id number] [facility] 2024-02-21 00:00:00 2024-02-21 10:38:14 [facility] 1.2.840.114 350.1.13.10 4.2.7.2.686 [id number] [facility] 2024-02-01 08:05:32 2024-02-01 08:05:32 Outpatient [facility] [id number] Terrence Campuzano 2024-01-26 00:00:00 2024-01-28 08:46:48 Catrachita Robertson [facility] 1.2.840.114 350.1.13.10 4.2.7.2.686 [id number] [facility] 2024-01-26 00:00:00 2024-01-26 11:11:01 Telephone [facility] ([facility]) 1.2.840.114 350.1.13.10 4.2.7.2.686 [id number] [facility] 2023-12-28 00:00:00 2023-12-28 00:00:00 [facility] 1.2.840.114 350.1.13.10 4.2.7.2.686 [id number] [facility] 2023-12-10 11:45:00 2023-12-10 12:00:00 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 Catrachita Mercado [facility] I[facility]TY [place] [facility] 1..840.114 350.1.13.10 4.2.7.2.686 [id number] [facility] 2023-12-10 11:00:00 2023-12-10 11:33:42 Outpatient R CATRACHITA MERCADO [facility] [id number] [facility] 2023-12-10 11:00:00 2023-12-10 11:33:42 Office Visit Catrachita Mercado [facility] 1..840.114 350.1.13.10 4.2.7.2.686 [id number] [facility] 2023-09-04 13:25:00 2023-09-04 17:12:00 Emergency X RAYAMIGDALIAMADISON [facility] ERT [id number] [facility] 2023-09-04 13:25:00 2023-09-04 17:12:00 Emergency Deborah Winslow [facility] 1..840.114 350.1.13.10 4.2.7.2.686 [id number] [facility] 2023-07-14 10:51:11 2023-07-14 10:51:11 Outpatient [facility] [id number] Terrence Velasco Justen 2023-07-03 00:00:00 2023-07-03 00:00:00 Outpatient GC_GCBZW_Ka steven_S [facility] [id number] [facility] 2023-06-11 11:30:00 2023-06-11 12:44:12 Outpatient CATRACHITA LUNA [facility] [id number] [facility] 2023-06-11 11:30:00 2023-06-11 12:44:12 Office Visit Catrachita Mercado [facility] 1.840.114 350.1.13.10 4.2.7.2.686 [id number] [facility] 2023-05-28 09:22:17 2023-05-28 09:22:17 Outpatient [facility] [id number] Terrence Campuznao 2023-05-05 00:00:00 2023-05-05 00:00:00 Patient Secure Msg Catrachita Mercado [facility] 1.840.114 350.1.13.10 4.2.7.2.686 [id number] [facility] 2023-03-29 15:16:53 2023-03-29 15:16:53 Outpatient [facility] [id number] Terrence Campuzano 2023-02-16 00:00:00 2023-02-16 00:00:00 Patient Secure Msg [facility] 1.840.114 350.1.13.10 4.2.7.2.686 [id number] [facility] 2023-02-11 00:00:00 2023-02-11 00:00:00 Telephone Catrachita Mercado [facility] 1.840.114 350.1.13.10 4.2.7.2.686 [id number] [facility] 2023-02-04 12:00:00 2023-02-04 12:15:00 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 Catrachita Mercado [facility] 1.840.114 350.1.13.10 4.2.7.2.686 [id number] [facility] 2023-02-04 11:30:00 2023-02-04 11:39:11 Outpatient R CATRACHITA MERCADO [facility] [id number] [facility] 2023-02-04 11:30:00 2023-02-04 11:39:11 Office Visit Catrachita Mercado [facility] 1.840.114 350.1.13.10 4.2.7.2.686 [id number] [facility] 2023-02-03 11:00:28 2023-02-03 11:00:28 Outpatient [facility] [id number] Terrence Campuzano 2023-01-13 10:31:00 2023-01-13 10:31:00 Outpatient [facility] [id number] Terrence Campuzano 2023-01-02 09:55:10 2023-01-02 23:59:00 Outpatient R FANI JONESJOHNATHAN [facility] [id number] [facility] 2023-01-02 09:55:10 2023-01-02 23:59:00 Hospital Encounter Fani Joneselyssakya [facility] 1..840.114 350.1.13.10 4.2.7.2.686 [id number] [facility] 2023-01-02 10:00:00 2023-01-02 10:01:10 Urgent Care Paige Jones Unknown, Attending [facility] 1..840.114 350.1.13.10 4.2.7.2.686 [id number] [facility] 2022-12-07 12:06:00 2022-12-07 13:56:00 Emergency X AMANDA MCKEON [facility] ERT [id number] [facility] 2022-12-07 12:06:00 2022-12-07 13:56:00 Emergency Mike, Amanda [facility] 1.2840.114 350.1.13.10 4.2.7.2.686 [id number] [facility] 2022-11-26 10:45:00 2022-11-26 11:35:16 Office Visit Rachna Bush [facility] 1.2840.114 350.1.13.10 4.2.7.2.686 [id number] [facility] 2022-11-26 10:45:00 2022-11-26 11:35:16 Outpatient R RACHNA BUSH [facility] [id number] [facility] 2022-11-26 00:00:00 2022-11-26 00:00:00 Orders Only Doctor Unassigned, [place] [facility] 1.0.114 350.1.13.10 4.2.7.2.686 [id number] [facility] 2022-11-12 14:00:00 2022-11-12 14:00:00 Outpatient R RACHNA BUSH [facility] [id number] [facility] 2022-11-12 10:00:00 2022-11-12 11:16:39 Outpatient R RACHNA BUSH [facility] [id number] [facility] 2022-11-12 10:00:00 2022-11-12 11:16:39 Office Visit Rachna Bush [facility] 1.840.114 350.1.13.10 4.2.7.2.686 [id number] [facility] 2022-11-12 00:00:00 2022-11-12 00:00:00 Orders Only Doctor Unassigned, [place] [facility] 1.2840.114 350.1.13.10 4.2.7.2.686 [id number] [facility] 2022-11-10 09:48:22 2022-11-10 23:59:00 Outpatient R PAIGE JONES [facility] [id number] [facility] 2022-11-10 09:48:22 2022-11-10 23:59:00 Hospital Encounter Paige Jones [facility] 1.84114 350.1.13.10 4.2.7.2.686 [id number] [facility] 2022-11-10 09:20:00 2022-11-10 09:55:29 Urgent Care aPige Jones Unknown, Attending [facility] 1.114 350.1.13.10 4.2.7.2.686 [id number] [facility] 2022-11-05 09:00:00 2022-11-05 09:37:01 Outpatient R RACHNA BUSH [facility] [id number] [facility] 2022-11-05 09:00:00 2022-11-05 09:37:01 Office Visit Rachna Bush [facility] 1.84.114 350.1.13.10 4.2.7.2.686 [id number] [facility] 2022-11-05 00:00:00 2022-11-05 00:00:00 Orders Only Doctor Unassigned, [place] [facility] .114 350.1.13.10 4.2.7.2.686 [id number] [facility] 2022-10-15 00:00:00 2022-10-15 00:00:00 Orders Only Doctor Unassigned, [place] [facility] 1.114 350.1.13.10 4.2.7.2.686 [id number] [facility] 2022-09-27 00:57:00 2022-09-27 05:55:00 Emergency X MORGAN VARGAS [facility] ERT [id number] [facility] 2022-09-27 00:57:00 2022-09-27 05:55:00 Emergency Morgan Vargas [facility] 1.2.840.114 350.1.13.10 4.2.7.2.686 [id number] [facility] 2022-09-19 18:05:00 2022-09-19 21:16:00 [facility] [id number] [facility] 2022-09-19 18:05:00 2022-09-19 21:16:00 [facility] 1.2840.114 350.1.13.10 4.2.7.2.686 [id number] [facility] 2022-09-11 10:00:00 2022-09-11 10:15:00 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 Catrachita Mercado [facility] 1.0.114 350.1.13.10 4.2.7.2.686 [id number] [facility] 2022-09-11 10:00:00 2022-09-11 10:00:00 Outpatient R CATRACHITA MERCADO [facility] [id number] [facility] 2022-09-11 09:00:00 2022-09-11 09:56:11 Office Visit Catrachita Mercado [facility] 1.0.114 350.1.13.10 4.2.7.2.686 [id number] [facility] 2022-09-10 09:30:00 2022-09-10 09:30:00 Outpatient R CATRACHITA MERCADO [facility] [id number] [facility] 2022-09-07 00:00:00 2022-09-07 00:00:00 Telephone Catrachita Mercado [facility] [facility] 1..114 350.1.13.10 4.2.7.2.686 [id number] [facility] 2022-08-28 20:52:00 2022-08-28 22:35:00 Emergency X AMANDA POWER [facility] ERT [id number] [facility] 2022-08-28 20:52:00 2022-08-28 22:35:00 Emergency Amanda Power [facility] 1..114 350.1.13.10 4.2.7.2.686 [id number] [facility] 2022-08-17 10:00:00 2022-08-17 10:30:00 Nurse Visit Nurse, Vtc Int Med Allergy Lorene Roman [facility] 1..114 350.1.13.10 4.2.7.2.686 [id number] [facility] 2022-08-17 10:00:00 2022-08-17 10:00:00 Outpatient LORENE FARMER [facility] [id number] [facility] 2022-08-17 00:00:00 2022-08-17 00:00:00 Transition of Care Marley Tello 1..114 350.1.13.10 4.2.7.2.686 [id number] [facility] 2022-08-17 00:00:00 2022-08-17 00:00:00 Patient Secure Msg Doctor Unassigned, [place] [facility] 1.0.114 350.1.13.10 4.2.7.2.686 [id number] [facility] 2022-08-14 13:24:00 2022-08-15 17:15:00 Inpatient X ELIEZER KLEIN [facility] JACKELYN [id number] [facility] 2022-08-14 13:24:00 2022-08-15 17:15:00 Hospital Encounter CamFrandy David [facility] 1.0.114 350.1.13.10 4.2.7.2.686 [id number] [facility] 2022-08-14 00:00:00 2022-08-14 00:00:00 Catrachita Robertson [facility] 1..114 350.1.13.10 4.2.7.2.686 [id number] [facility] 2022-07-22 09:30:00 2022-07-22 10:00:00 Nurse Visit Nurse, Inc Int Med Allergy Lorene Roman [facility] 1.114 350.1.13.10 4.2.7.2.686 [id number] [facility] 2022-07-22 09:30:00 2022-07-22 09:30:00 Outpatient R LORENE ROMAN [facility] [id number] [facility] 2022-06-30 00:00:00 2022-06-30 00:00:00 Transition of Care Marley Tello 1..114 350.1.13.10 4.2.7.2.686 [id number] [facility] 2022-06-29 00:00:00 2022-06-29 00:00:00 Patient Secure Msg Doctor Unassigned, [place] [facility] 1.84.114 350.1.13.10 4.2.7.2.686 [id number] [facility] 2022-06-27 13:49:00 2022-06-28 13:32:00 Outpatient Prince [facility] [id number] [facility] 2022-06-27 13:49:00 2022-06-28 13:32:00 Emergency [place], Eliezer John [facility] 1.840.114 350.1.13.10 4.2.7.2.686 [id number] [facility] 2022-06-25 09:30:00 2022-06-25 10:00:00 Nurse Visit Nurse, [facility] 1..114 350.1.13.10 4.2.7.2.686 [id number] [facility] 2022-06-25 09:30:00 2022-06-25 09:30:00 Outpatient CATRACHITA LUNA [facility] [id number] [facility] 2022-05-28 10:00:00 2022-05-28 10:30:00 Nurse Visit Nurse, [facility] Int Med Allergy [facility] 1..114 350.1.13.10 4.2.7.2.686 [id number] [facility] 2022-05-28 10:00:00 2022-05-28 10:00:00 Outpatient CATRACHITA LUNA [facility] [id number] [facility] 2022-05-13 00:00:00 2022-05-13 00:00:00 Telephone Danyel White [facility] 1.2840.114 350.1.13.10 4.2.7.2.686 [id number] [facility] 2022-04-30 09:30:00 2022-04-30 10:06:23 Outpatient R CATRACHITA MERCADO [facility] [id number] [facility] 2022-04-30 09:30:00 2022-04-30 10:06:23 [facility] 1.2840.114 350.1.13.10 4.2.7.2.686 [id number] [facility] 2022-04-30 09:30:00 2022-04-30 10:06:23 Outpatient R CATRACHITA MERCADO [facility] [id number] [facility] 2022-04-23 00:00:00 2022-04-23 00:00:00 [facility] 1.0.114 350.1.13.10 4.2.7.2.686 [id number] [facility] 2022-04-02 00:00:00 2022-04-02 00:00:00 Telephone Catrachita Mercado [facility]TY [place] [facility] 1.20.114 350.1.13.10 4.2.7.2.686 [id number] [facility] 2022-03-30 13:00:00 2022-03-30 15:10:07 Outpatient LORENE FARMER [facility] [id number] [facility] 2022-03-30 13:00:00 2022-03-30 15:10:07 Nurse Visit Nurse, [facility] Int Med Allergy [facility] 1.2.114 350.1.13.10 4.2.7.2.686 [id number] [facility] 2022-03-05 09:00:00 2022-03-05 09:57:41 Outpatient R ABEL LORENE [facility] [id number] [facility] 2022-03-05 09:00:00 2022-03-05 09:57:41 Nurse Visit Nurse, [facility] 1.114 350.1.13.10 4.2.7.2.686 [id number] [facility] 2022-02-04 09:00:00 2022-02-04 09:30:00 Nurse Visit Nurse, [facility] 1.114 350.1.13.10 4.2.7.2.686 [id number] [facility] 2022-02-04 09:00:00 2022-02-04 09:00:00 Outpatient R LORENE ROMAN [facility] [id number] [facility] 2022-01-29 00:00:00 2022-01-29 00:00:00 [facility] 1.114 350.1.13.10 4.2.7.2.686 [id number] [facility] 2022-01-27 00:00:00 2022-01-27 00:00:00 Rosio Trejo [facility] TATYANA ALAS?[facility] 1.114 350.1.13.10 4.2.7.2.686 [id number] [facility] 2022-01-09 08:30:00 2022-01-09 11:32:35 Outpatient R CATRACHITA MERCADO [facility] [id number] [facility] 2022-01-09 08:30:00 2022-01-09 11:32:35 Office [facility] [place] [facility] 1.2.840.114 350.1.13.10 4.2.7.2.686 [id number] [facility] 2022-01-05 00:00:00 2022-01-05 00:00:00 Telephone Catrachita Mercado [facility] IALTY [place] [facility] 1.2.840.114 350.1.13.10 4.2.7.2.686 [id number] [id number] [facility] 2021-12-11 09:00:00 2021-12-11 11:00:00 Nurse Visit Nurse, [facility] Int Med Allergy Catrachita Mercado [facility]ALTY [place] [facility] 1.2.840.114 350.1.13.10 4.2.7.2.686 [id number] [facility] 2021-12-11 09:00:00 2021-12-11 09:00:00 Outpatient R CATRACHITA MERCADO [facility] [id number] [facility] 2021-11-22 14:44:00 2021-11-22 20:04:00 Emergency X Cristofer HENRY [facility] ERT [id number] [facility] 2021-11-22 14:44:00 2021-11-22 20:04:00 Emergency Cristofer Henry [facility] 1.2.840.114 350.1.13.10 4.2.7.2.686 [id number] [facility] 2021-11-14 09:00:00 2021-11-14 11:12:34 Office Visit Catrachita Mercado L [facility] 1.114 350.1.13.10 4.2.7.2.686 [id number] [facility] 2021-11-14 09:00:00 2021-11-14 11:12:34 Outpatient CATRACHITA LUNA [facility] [id number] [facility] 2021-11-14 09:00:00 2021-11-14 09:00:00 Outpatient CATRACHITA LUNA [facility] [id number] [facility] 2021-11-14 09:00:00 2021-11-14 09:00:00 Outpatient CATRACHITA LUNA [facility] [id number] [facility] 2021-11-12 08:00:00 2021-11-12 08:15:00 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 1.0.114 350.1.13.10 4.2.7.2.686 [id number] [facility] 2021-11-12 08:00:00 2021-11-12 08:00:00 Outpatient CATRACHITA LUNA [facility] [id number] [facility] 2021-11-12 00:00:00 2021-11-12 00:00:00 Orders Only Doctor Unassigned, [place] [facility] 1..114 350.1.13.10 4.2.7.2.686 [id number] [facility] 2021-11-10 00:00:00 2021-11-10 00:00:00 Telephone Josephine Jones [facility] ([facility]) 1.0.114 350.1.13.10 4.2.7.2.686 [id number] [facility] 2021-11-07 11:00:00 2021-11-07 11:00:00 Outpatient CATRACHITA LUNA [facility] [id number] [facility] 2021-11-07 11:00:00 2021-11-07 11:00:00 Outpatient CATRACHITA LUNA [facility] [id number] [facility] 2021-11-05 00:00:00 2021-11-05 00:00:00 Patient Secure [facility] .840.114 350.1.13.10 4.2.7.2.686 [id number] [facility] 2021-11-05 00:00:00 2021-11-05 00:00:00 [facility] 1.840.114 350.1.13.10 4.2.7.2.686 [id number] [facility] 2021-10-30 08:30:00 2021-10-30 09:00:00 Telemedici ne Visit Catrachita Mercado [facility]TY [place] [facility] 1.840.114 350.1.13.10 4.2.7.2.686 [id number] [facility] 2021-10-30 08:30:00 2021-10-30 08:30:00 Outpatient CATRACHITA LUNA [facility] [id number] [facility] 2021-10-30 08:30:00 2021-10-30 08:30:00 Outpatient CATRACHITA LUNA [facility] [id number] [facility] 2021-10-29 00:00:00 2021-10-29 00:00:00 Marium Garrett [facility] 1.114 350.1.13.10 4.2.7.2.686 [id number] [facility] 2021-10-19 00:00:00 2021-10-19 00:00:00 Refill [facility] ALAN?[facility] 1.114 350.1.13.10 4.2.7.2.686 [id number] [facility] 2021-10-17 00:00:00 2021-10-17 00:00:00 Transition of Care NellAlanna [facility] 1..114 350.1.13.10 4.2.7.2.686 [id number] [facility] 2021-10-15 14:23:00 2021-10-16 14:50:00 Outpatient Prince KLEIN [facility] [id number] [facility] 2021-10-15 14:23:00 2021-10-16 14:50:00 Emergency Marium Hickey [facility] 1.114 350.1.13.10 4.2.7.2.686 [id number] [facility] 2021-09-27 11:15:00 2021-09-27 14:54:00 Emergency BA CEJA [facility] ERT [id number] [facility] 2021-09-27 11:15:00 2021-09-27 14:54:00 Emergency Ismael Cotter Robert Lee [facility] 1.114 350.1.13.10 4.2.7.2.686 [id number] [facility] 2021-09-27 10:20:00 2021-09-27 10:20:00 Urgent Care Juan [facility]?JAYLENE EL [facility] 1.2.114 350.1.13.10 4.2.7.2.686 [id number] [facility] 2021-09-27 10:20:00 2021-09-27 10:16:45 Outpatient ROSIO HOPE [facility] [id number] [facility] 2021-08-12 00:00:00 2021-08-12 00:00:00 Telephone [facility] 1.840.114 350.1.13.10 4.2.7.2.686 [id number] [facility] 2021-08-12 00:00:00 2021-08-12 00:00:00 Orders Only Doctor Unassigned, [place] [facility] 1.840.114 350.1.13.10 4.2.7.2.686 [id number] [facility] 2021-08-08 11:56:09 2021-08-08 12:11:09 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 Catrachita Mercado [facility] 1..114 350.1.13.10 4.2.7.2.686 [id number] [facility] 2021-08-08 11:00:00 2021-08-08 11:56:31 Outpatient R CATRACHITA MERCADO [facility] [id number] [facility] 2021-08-08 10:03:35 2021-08-08 11:56:31 Office Visit [facility]achita Mercado [facility] 1..114 350.1.13.10 4.2.7.2.686 [id number] [facility] 2021-07-22 13:30:00 2021-07-22 14:05:17 Outpatient MARIUM KAISER [facility] [id number] [facility] 2021-07-22 13:17:43 2021-07-22 14:05:17 Office Visit Marium Dawson [facility] 1.2.840.114 350.1.13.10 4.2.7.2.686 [id number] [facility] 2021-07-22 13:30:00 2021-07-22 13:30:00 Outpatient R MARIUM DAWSON [facility] [id number] [facility] 2021-07-22 13:30:00 2021-07-22 13:30:00 Outpatient R MARIUM DAWSON [facility] [id number] [facility] 2021-07-11 16:01:12 2021-07-11 16:49:47 Office Visit Marium Dawson [facility] 1.2.840.114 350.1.13.10 4.2.7.2.686 [id number] [facility] 2021-07-11 16:00:00 2021-07-11 16:49:47 Outpatient R MARIUM DAWSON [facility] [id number] [facility] 2021-07-11 00:00:00 2021-07-11 00:00:00 Telephone Marium Dawson [facility] 1.2840.114 350.1.13.10 4.2.7.2.686 [id number] [facility] 2021-06-20 17:48:00 2021-06-20 21:24:00 Emergency Cristofer Henry [facility] 1.2.840.114 350.1.13.10 4.2.7.2.686 [id number] [facility] 2021-05-08 00:00:00 2021-05-08 00:00:00 Letter (Out) Markus Shepherda Kris [facility] 1.20.114 350.1.13.10 4.2.7.2.686 [id number] [facility] 2021-05-07 09:27:26 2021-05-07 09:37:26 Laboratory Only Only, Ang Db Test [facility] 1.2.114 350.1.13.10 4.2.7.2.686 [id number] [facility] 2021-05-07 09:25:00 2021-05-07 09:25:00 Outpatient R BOBBI BURCH [facility] [id number] [facility] 2021-04-11 12:33:14 2021-04-11 12:48:14 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 Catrachita Mercado [facility] 1..114 350.1.13.10 4.2.7.2.686 [id number] [facility] 2021-04-11 11:19:19 2021-04-11 12:35:51 Office [facility] 1.2.114 350.1.13.10 4.2.7.2.686 [id number] [facility] 2021-04-11 12:00:00 2021-04-11 12:00:00 Outpatient R CATRACHITA MERCADO [facility] [id number] [facility] 2021-04-08 10:25:23 2021-04-08 11:26:58 Office Visit Marium Dawson [facility] 1.2.114 350.1.13.10 4.2.7.2.686 [id number] [facility] 2021-04-08 10:30:00 2021-04-08 10:30:00 Outpatient R JOSE DAWSONN [facility] [id number] [facility] 2021-03-26 00:00:00 2021-03-26 00:00:00 Patient Secure Msg TamikaJarrodMilesAudrey [facility] 1.84.114 350.1.13.10 4.2.7.2.686 [id number] [facility] 2021-03-25 15:30:00 2021-03-25 15:30:00 Outpatient R ELDAJOSEN [facility] [id number] [facility] 2021-03-18 14:34:51 2021-03-18 14:49:51 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 Catrachita Mercado [facility] [place] [facility] 1.84.114 350.1.13.10 4.2.7.2.686 [id number] [facility] 2021-03-18 13:38:25 2021-03-18 14:35:19 Office Visit Catrachita Mercado [facility] 1.284.114 350.1.13.10 4.2.7.2.686 [id number] [facility] 2021-03-18 13:30:00 2021-03-18 13:30:00 Outpatient R CATRACHITA MERCADO [facility] [id number] [facility] 2021-03-03 00:00:00 2021-03-03 00:00:00 Patient Secure Msg Doctor Unassigned, [place] [facility] 1.284.114 350.1.13.10 4.2.7.2.686 [id number] [facility] 2021-02-28 15:07:35 2021-02-28 16:01:07 Office Visit Marium Dawson [facility] 1.2840.114 350.1.13.10 4.2.7.2.686 [id number] [facility] 2021-02-28 15:30:00 2021-02-28 15:30:00 Outpatient R MARIUM DAWSON [facility] [id number] [facility] 2021-02-26 19:08:00 2021-02-26 22:19:00 Emergency Ashwin Lucero [facility] 1.2.840.114 350.1.13.10 4.2.7.2.686 [id number] [facility] 2021-02-21 07:31:00 2021-02-22 12:50:00 Hospital Encounter Marium Dawson [facility] 1.2.840.114 350.1.13.10 4.2.7.2.686 [id number] [facility] 2021-02-21 08:16:00 2021-02-21 13:05:00 Anesthesia Event Ernesto Tesfaye Leonard [facility] 1.2.840.114 350.1.13.10 4.2.7.2.686 [id number] [facility] 2021-02-21 08:30:00 2021-02-21 12:52:00 Surgery Marium Dawson [facility] 1.2.840.114 350.1.13.10 4.2.7.2.686 [id number] [facility] 2021-02-21 00:00:00 2021-02-21 00:00:00 Orders Only Doctor Unassigned, [place] [facility] 1.2.840.114 350.1.13.10 4.2.7.2.686 [id number] [facility] 2021-02-20 08:30:00 2021-02-20 08:30:00 Outpatient R MARIUM DAWSON [facility] [id number] [facility] 2021-02-20 08:08:54 2021-02-20 08:23:54 Wind Turbine Performance Engineer Visit Pob, Adc Lab Main Marium Dawson [facility] 1.840.114 350.1.13.10 4.2.7.2.686 [id number] [facility] 2021-02-20 08:08:25 2021-02-20 08:23:25 Laboratory Only Only, Adc Test Marium Dawson [facility] 1..114 350.1.13.10 4.2.7.2.686 [id number] [facility] 2021-02-19 00:00:00 2021-02-19 00:00:00 Orders Only Doctor Unassigned, [place] [facility] 1.114 350.1.13.10 4.2.7.2.686 [id number] [facility] 2021-02-18 08:15:00 2021-02-18 08:15:00 Outpatient R MARIUM DAWSON [facility] [id number] [facility] 2021-02-06 10:30:00 2021-02-06 10:30:00 Outpatient R MARIUM DAWSON [facility] [id number] [facility] 2021-01-29 00:00:00 2021-01-29 00:00:00 Outpatient R MARIUM DAWSON [facility] [id number] [facility] 2021-01-24 14:18:23 2021-01-24 15:08:39 Office Visit Marium Dawson [facility] 1.84.114 350.1.13.10 4.2.7.2.686 [id number] [facility] 2021-01-24 14:30:00 2021-01-24 14:30:00 Outpatient MARIUM KAISER [facility] [id number] [facility] 2021-01-24 00:00:00 2021-01-24 00:00:00 Orders Only Doctor Unassigned, [place] [facility] 1.114 350.1.13.10 4.2.7.2.686 [id number] [facility] 2021-01-21 09:00:00 2021-01-21 09:00:00 Outpatient MARIUM [facility]ER [facility] [id number] [facility] 2021-01-02 10:30:00 2021-01-02 10:30:00 Outpatient R SHRUTHI COLLADO [facility] [id number] [facility] 2020-11-25 00:00:00 2020-11-25 00:00:00 Patient Outreach Miko Araujo [facility] 1..114 350.1.13.10 4.2.7.2.686 [id number] [facility] 2020-09-28 13:43:00 2020-09-28 16:38:00 Emergency VargasMorgan [facility] 1..114 350.1.13.10 4.2.7.2.686 [id number] [facility] 2020-09-17 13:24:29 2020-09-17 14:54:21 Office Visit Rachna Bush [facility] 1..114 350.1.13.10 4.2.7.2.686 [id number] [facility] 2020-09-17 13:45:00 2020-09-17 13:45:00 Outpatient R RACHNA BUSH [facility] [id number] [facility] 2020-09-05 10:40:42 2020-09-05 11:50:15 Office Visit Rachna Bush Rm, Adc [facility] 1.2.840.114 350.1.13.10 4.2.7.2.686 [id number] [facility] 2020-09-05 10:45:00 2020-09-05 10:45:00 Outpatient R RACHNA BUSH [facility] [id number] [facility] 2020-09-05 00:00:00 2020-09-05 00:00:00 Orders Only Doctor Unassigned, [place] [facility] 1.2840.114 350.1.13.10 4.2.7.2.686 [id number] [facility] 2020-08-06 15:20:07 2020-08-06 16:38:34 Office Visit Rachna Bush [facility] 1.2.840.114 350.1.13.10 4.2.7.2.686 [id number] [facility] 2020-08-06 15:30:00 2020-08-06 15:30:00 Outpatient R RACHNA BUSH [facility] [id number] [facility] 2020-07-31 00:00:00 2020-07-31 00:00:00 Telephone [facility] 1.2.840.114 350.1.13.10 4.2.7.2.686 [id number] [facility] 2020-07-30 14:25:30 2020-07-30 16:00:44 Office Visit [facility] 1.2.840.114 350.1.13.10 4.2.7.2.686 [id number] [facility] 2020-07-30 14:30:00 2020-07-30 14:30:00 Outpatient R RACHNA BUSH [facility] [id number] [facility] 2020-07-30 00:00:00 2020-07-30 00:00:00 Orders Only Doctor Unassigned, [place] [facility] 1..114 350.1.13.10 4.2.7.2.686 [id number] [facility] 2020-07-27 13:06:42 2020-07-27 14:02:20 Urgent Care Provider, [facility] 1.114 350.1.13.10 4.2.7.2.686 [id number] [facility] 2020-07-27 13:20:00 2020-07-27 13:20:00 Outpatient R [facility] [facility] [id number] [facility] 2020-07-18 08:48:25 2020-07-18 09:48:25 Laboratory Only Pc, Adc Echo Room 1 - [facility] Building 1.114 350.1.13.10 4.2.7.2.686 [id number] [facility] 2020-07-18 09:00:00 2020-07-18 09:00:00 Outpatient R [facility] [id number] [facility] 2020-07-18 00:00:00 2020-07-18 00:00:00 Orders Only Doctor Unassigned, [place] [facility] 1.114 350.1.13.10 4.2.7.2.686 [id number] [id number] [facility] 2020-06-25 00:00:00 2020-06-25 00:00:00 Transition of Care Marley Tello 1..114 350.1.13.10 4.2.7.2.686 [id number] [facility] 2020-06-22 12:07:00 2020-06-23 14:40:00 Emergency Mino Shahid Yaman [facility] 1.2.840.114 350.1.13.10 4.2.7.2.686 [id number] [facility] 2020-06-12 00:00:00 2020-06-12 00:00:00 Orders Only Doctor Unassigned, [place] [facility] 1.2.840.114 350.1.13.10 4.2.7.2.686 [id number] [id number] [facility] 2020-03-19 00:00:00 2020-03-19 00:00:00 Orders Only Doctor Unassigned, [place] [facility] 1.2.840.114 350.1.13.10 4.2.7.2.686 [id number] [id number] 2020-03-19 00:00:00 2020-03-19 00:00:00 Orders Only Doctor Unassigned, [place] [facility] 1.2.840.114 350.1.13.10 4.2.7.2.686 [id number] [id number] [facility] 2020-02-28 00:00:00 2020-02-28 00:00:00 Transition of Care Marley Tello 1.2.840.114 350.1.13.10 4.2.7.2.686 [id number] 2020-02-28 00:00:00 2020-02-28 00:00:00 Transition of Care Marley Tello 1.2.840.114 350.1.13.10 4.2.7.2.686 [id number] [facility] 2020-02-23 21:57:28 2020-02-27 16:56:00 Hospital Encounter Tiana Smith [facility] 1.2.840.114 350.1.13.10 4.2.7.2.686 [id number] 2020-02-23 21:57:28 2020-02-27 16:56:00 Inpatient U TIANA SMITH [facility] [id number] [facility] 2020-02-23 21:57:28 2020-02-27 16:56:00 [facility] 1.2.840.114 350.1.13.10 4.2.7.2.686 [id number] [facility] 2020-01-31 13:56:16 2020-02-02 12:50:00 Hospital Encounter Annamaria Cardenas Yaman [facility] 1.2.840.114 350.1.13.10 4.2.7.2.686 [id number] 2020-01-31 13:56:16 2020-02-02 12:50:00 Inpatient X ANAHY OWEN [facility] [id number] [facility] 2020-01-31 13:56:16 2020-02-02 12:50:00 Hospital Encounter Annamaria Cardenas Yaman [facility] 1.2.840.114 350.1.13.10 4.2.7.2.686 [id number] [facility] 2020-01-31 00:00:00 2020-01-31 00:00:00 Orders Only Doctor Unassigned, [place] [facility] 1.2.840.114 350.1.13.10 4.2.7.2.686 [id number] 2020-01-31 00:00:00 2020-01-31 00:00:00 Orders Only Doctor Unassigned, [place] [facility] 1.2.840.114 350.1.13.10 4.2.7.2.686 [id number] [id number] [facility] Results Test Description Test Time Test Comments [...] another provider in my specialty: no [facility] [id number] 21:51:55EXAM: CT ABDOMEN PELVIS WO CONTRAST HISTORY: [...] No suspicious lytic or sclerotic bony lesions arepresent.[facility] [id number] 19:40:00* Test Item Value Reference Range Interpretation Comme nts POCT PREG (test code = 1605) Negative On board controls acceptable with C Line (test code = 3574) Yes POCT PREG LOT # (test code = 3575) [id number] POCT PREG TEST DATE ( test code = 3576) 12/09/2024 Lab Interpretation (test cod e = 57167-1) Normal [facility] WITH [id number] 01:32:48* Test Item Value Reference Range Interpretation Comme [facility] WBC (test code = 6690-2) See_Comment H [Automated [employer] ge] The system which generated this result transmitted reference range: 4.30 - 11.10 10*3/?L. The reference range was not used to interpret this result as normal/abnormal. RBC (test code = 789-8) See_Comment [Automated [employer]] The system which generated this result transmitted [...] 34.1 g/dL 31.6-35.1 RDW-SD (test code = 29267-6) 37.4 fL 39.0-49.9 L RDW-CV (test code = 788-0) 12.5 % 12.0-15.5 PLT (test code = 777-3) See_Comment [Automated messa ge] The system which generated this result transmitted reference range: 166 - 358 10*3/?L. The reference range was not used to interpret this result as normal/abnormal. MPV (test code = 21204-2) 10.5 fL 9.5-12.9 NRBC/100 WBC (test code = 5517640380) See_Comment [Automated [employer] ssage] The system which generated this result transmitted reference range: 0.0 - 10.0 /100 WBCs. The reference range was not used to interpret this result as normal/abnormal. NRBC x10^3 (test code = 5768558282) See_Comment [Automated messa ge] The system which generated this result transmitted reference range: 10*3/?L. The reference range was not used to interpret this result as normal/abnormal. GRAN MAT (NEUT) % (test code = 770-8) 55.4 % IMM GRAN % (test code = 0905156485) 0.60 % LYMPH % (test code = 736-9) 36.2 % MONO % (test code = 5905-5) 6.0 % EOS % (test code = 713-8) 1.2 % BASO % (test code = 706-2) 0.6 % GRAN MAT x10^3(ANC) (test code = 6127745491) 7.91 10*3/uL 1.88-7.09 H IMM GRAN x10^3 (test code = 2981012372) 0.08 10*3/uL 0.00-0.06 H LYMPH x10^3 (test code = 731-0) 5.16 10*3/uL 1.32-3.29 H MONO x10^3 (test code = 742-7) 0.86 10*3/uL 0.33-0.92 EOS x10^3 (test code = 711-2) 0.17 10*3/uL 0.03-0.39 BASO x10^3 (test code = 704-7) 0.08 10*3/uL 0.01-0.07 H Lab Interpretation (test code = 77807-9) Abnormal [facility]. METABOLIC PANEL (30480)2022-09-20 01:13:21* Test Item Value Reference Range Interpretation Comme nts NA (test code = 0490746295) 138 mmol/L 135-145 K (test code = 7988631832) 3.6 mmol/L 3.5-5.0 CL (test code = 8427354144) 104 mmol/L 98-108 CO2 TOTAL (test code = 6012227697) 19 mmol/L 23-31 L AGAP (test code = 8360758353) 2-16 BUN (test code = 5483033754) 12 mg/dL 7-23 GLUCOSE (test code = 6826871142) 131 mg/dL 70-110 H CREATININE (test code = 4608545131) 0.56 mg/dL 0.50-1.04 TOTAL BILI (test code = 9815686767) 0.5 mg/dL 0.1-1.1 CALCIUM (test code = 7024632542) 9.4 mg/dL 8.6-10.6 T PROTEIN (test code = 5265361360) 7.8 g/dL 6.3-8.2 ALBUMIN (test code = 9795150084) 4.8 g/dL 3.5-5.0 ALK PHOS (test code = 3051671352) 67 U/L 34-122 ALTv (test code = 1742-6) 29 U/L 5-35 AST(SGOT) (test code = 0408079159) 32 U/L 13-40 eGFR (test code = 6668634874) mL/min/1.73m2 JESSICA (test code = JESSICA) Association [...] imaging tests). Lab Interpretation (test code = 58034-5) Abnormal [facility] WITH [id number] 03:53:40* Test Item Value Reference Range Interpretation Comme nts WBC (test code = 6690-2) See_Comment H [[employer]] The system which generated this result transmitted reference range: 4.30 - 11.10 10*3/?L. The reference range was not used to interpret this result as normal/abnormal. RBC (test code = 789-8) See_Comment [[employer]] The system which generated this result transmitted [...] 34.0 g/dL 31.6-35.1 RDW-SD (test code = 11156-4) 38.7 fL 39.0-49.9 L RDW-CV (test code = 788-0) 12.6 % 12.0-15.5 PLT (test code = 777-3) See_Comment [[employer]] The system which generated this result transmitted reference range: 166 - 358 10*3/?L. The reference range was not used to interpret this result as normal/abnormal. MPV (test code = 43885-8) 9.2 fL 9.5-12.9 L NRBC/100 WBC (test code = 2518551519) See_Comment [Automated me ssage] The system which generated this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
--- NOTE | 2024-08-08 12:22 | ER ---
Nurse's Notes [facility] Name: Sowmya Juarez Age: 39 yrs Sex: Female : 1985 Arrival Date: 08/08/2024 Time: 10:08 Bed 7 Private MD: Diagnosis: Concern for Allergic Reaction Presentation: 08/08 10:12 Chief complaint: EMS states: SPONTANEOUS ANAPHYLACTOID REACTION IN HEB PARKING LOT 10/08 bp H/O MAST CELL. Coronavirus screen: At this time, the client does not indicate any symptoms associated with coronavirus-19. Ebola Screen: No symptoms or risks identified at this time. Onset: The symptoms/episode began/occurred acutely. Anaphylaxis evaluation, the patient reports or I have noted the following symptoms which indicate a significant risk of anaphylaxis: an aura of "impending doom" lightheadedness lump in the throat which may suggest laryngeal edema shortness of breath tachypnea. Initial Sepsis Screen: Does the patient meet any 2 criteria? HR > 90 bpm. No. Patient's initial sepsis screen is negative. Does the patient have a suspected source of infection? No. Patient's initial sepsis screen is negative. Risk Assessment: Do you want to hurt yourself or someone else? Patient reports no desire to harm self or others. Onset of symptoms was August 08, 2024 at 09:45. Care prior to arrival: Medication(s) given: 0.3 MG EPI IM x2, 50 BENADRYL, A\\T\\A, 125 MG SOLU-MEDROL IV initiated. 18 GA, 20 GA, in the left in the right antecubital area. 10:12 Method Of Arrival: EMS: [facility] bp 10:12 Acuity: KALYN 2 bp Triage Assessment: 10:16 General: Appears distressed, uncomfortable, Behavior is cooperative, appropriate for bp age, anxious. Pain: Denies pain. EENT: NO EDEMA. Neuro: No deficits noted. Cardiovascular: Rhythm is sinus tachycardia. Respiratory: Airway is patent Respiratory effort is even. GI: No signs and/or symptoms were reported involving the gastrointestinal system. : No signs and/or symptoms were reported regarding the genitourinary system. Derm: No deficits noted. Musculoskeletal: No deficits noted. Historical: - Allergies: 10:14 Compazine; bp - PMHx: 10:14 Migraines; Bipolar disorder; Crohn's; Hyperlipidemia; Hypertension; Mass Cell bp Activation Syndrome; - PSHx: 10:14 Appendectomy; section; Cholecystectomy; Total abdominal hysterectomy; bp - Immunization history:: Adult Immunizations up to date. - Infectious Disease History:: Denies. - Social history:: Smoking status: . Screenin:17 [facility] ED Fall Risk Assessment (Adult) History of falling in the last 3 months, bp including since admission No falls in past 3 months (0 pts) Confusion or Disorientation No (0 pts) Intoxicated or Sedated No (0 pts) Impaired Gait No (0 pts) Mobility Assist Device Used No (0 pt) Altered Elimination No (0 pt) Score/Fall Risk Level 0 - 2 = Low Risk. Abuse screen: Denies threats or abuse. Denies injuries from another. Nutritional screening: No deficits noted. Tuberculosis screening: No symptoms or risk factors identified. Assessment: 10:17 Reassessment: Patient states symptoms have improved. Respiratory: Airway is patent bp Breath sounds are clear bilaterally. 10:44 Reassessment: Patient and/or family updated on plan of care and expected duration. Pain ap3 level reassessed. Patient is alert, oriented x 3, equal unlabored respirations, skin warm/dry/pink. General: Appears comfortable. Neuro: Level of Consciousness is awake, alert, obeys commands, Oriented to person, place, time, situation, Appropriate for age. Cardiovascular: Patient's skin is warm and dry. Respiratory: Airway is patent Respiratory effort is even, unlabored, Respiratory pattern is regular, symmetrical. 12:10 Reassessment: Patient appears in no apparent distress at this time. Patient is alert, bp oriented x 3, equal unlabored respirations, skin warm/dry/pink. 12:28 Respiratory: Airway is patent Respiratory effort is even, unlabored. bp Vital Signs: 10:12 BP 145 / 95; Pulse 141; Resp 24; Temp 98; Pulse Ox 96% on 12 lpm Nebulizer Mask; bp 10:44 BP 128 / 68; Pulse 99; Resp 19; Pulse Ox 98% on R/A; ap3 12:10 BP 135 / 74; Pulse 96; Resp 21; Pulse Ox 97% ; bp ED Course: 10:11 Patient arrived in ED. bp 10:14 Triage completed. bp 10:16 Jordon Austin MD is Attending Physician. ec2 10:16 Arm band placed on. bp 10:17 Patient has correct armband on for positive identification. bp 10:17 Maintain EMS IV. Dressing intact. Good blood return noted. Site clean \\T\\ dry. Gauge \\T\\ bp site: 18 GA LAC, 20 GA RAC. 10:18 Ernesto George, RN is Primary Nurse. bp 12:27 No provider procedures requiring assistance completed. IV discontinued, intact, bp bleeding controlled, No redness/swelling at site. Pressure dressing applied. 12:28 Provided Education on: N/A. bp Administered Medications: 10:20 Drug: NS 0.9% IV 1000 ml IV at 1 bolus Per protocol; to be given as a bolus over 60 bp minutes Route: IV; Rate: 1 bolus; Site: left antecubital; 11:08 Follow up: IV Status: Completed infusion; IV Intake: 1000ml ap3 Medication: 10:17 VIS not applicable for this client. bp Intake: 11:08 IV: 1000ml; Total: 1000ml. ap3 Outcome: 12:22 Discharge ordered by . ec2 12:27 Discharged to home ambulatory, with family, bp 12:27 Condition: stable 12:27 Discharge instructions given to patient, Instructed on discharge instructions, follow up and referral plans. medication usage, Demonstrated understanding of instructions, follow-up care, medications, Prescriptions given X 1, 12:33 Patient left the ED. bp Signatures: Ernesto George, RN RN bp Rosio Gupta RN RN ap3 Jordon Austin MD MD ec2 Corrections: (The following items were deleted from the chart) 10:16 10:12 Care prior to arrival: Medication(s) given: 0.3 MG EPI IM x2, 50 BENADRYL, A\\T\\A IV bp initiated. 18 GA, 20 GA, in the left in the right antecubital area, bp
--- NOTE | 2024-08-08 12:22 | EDPHYS ---
Physician Documentation [facility] Name: Sowmya Juarez Age: 39 yrs Sex: Female : 1985 Arrival Date: 08/08/2024 Time: 10:08 Bed 7 Private MD: ED Physician Jordon Austin HPI: 08/08 10:16 This 39 yrs old Female presents to ER via EMS with complaints of Allergic ec2 Reaction. 10:16 Patient arrives today for a reported allergic reaction. History of bipolar disease, ec2 mast activation syndrome, reportedly started having some shortness of breath, subsequently self administered EpiPen, EMS reports that given her additional Benadryl and another EpiPen along with Solu-Medrol and crystalloid.. Historical: - Allergies: 10:14 Compazine; bp - PMHx: 10:14 Migraines; Bipolar disorder; Crohn's; Hyperlipidemia; Hypertension; Mass Cell bp Activation Syndrome; - PSHx: 10:14 Appendectomy; section; Cholecystectomy; Total abdominal hysterectomy; bp - Immunization history:: Adult Immunizations up to date. - Infectious Disease History:: Denies. - Social history:: Smoking status: . ROS: 10:17 Constitutional: as per hpi ec2 Exam: 10:17 Constitutional: GEN: NAD Head: atraumatic Eyes: EOMI Ears: External ears are normal. ec2 Mouth: No oropharyngeal edema, no stridor CV: Tachycardia LUNGS: no respiratory distress, no wheezes or rales or rhonchi ABD: non-distended SKIN: no evidence of rashes MSK: no evidence of trauma Vital Signs: 10:12 BP 145 / 95; Pulse 141; Resp 24; Temp 98; Pulse Ox 96% on 12 lpm Nebulizer Mask; bp 10:44 BP 128 / 68; Pulse 99; Resp 19; Pulse Ox 98% on R/A; ap3 12:10 BP 135 / 74; Pulse 96; Resp 21; Pulse Ox 97% ; bp MDM: 10:16 Medical Screening Exam initiated ec2 10:17 Data reviewed: vital signs, nurses notes. ED course: Patient arrives today for ec2 evaluation of allergic reaction. Examination remarkable for individual with clear lung sounds along with tachycardia. Will continue to monitor, continue to infuse crystalloid.. 12:17 ED course: On reassessment patient remains well-appearing no acute distress. Will ec2 discharge home. Return precautions given.. 08/08 10:16 Order name: IV; Complete Time: 10:20 ec2 Administered Medications: 10:20 Drug: NS 0.9% IV 1000 ml IV at 1 bolus Per protocol; to be given as a bolus over 60 bp minutes Route: IV; Rate: 1 bolus; Site: left antecubital; 11:08 Follow up: IV Status: Completed infusion; IV Intake: 1000ml ap3 Disposition Summary: 08/08/24 12:22 Discharge Ordered Notes: Location: Home ec2 Condition: Stable ec2 Diagnosis - Concern for Allergic Reaction ec2 Followup: ec2 - With: Private Physician - When: - Reason: Re-evaluation by your physician Discharge Instructions: - Discharge Summary Sheet ec2 Forms: - Medication Reconciliation Form ec2 - Antibiotic Education ec2 - Prescription Opioid Use ec2 - Patient Portal Instructions ec2 - Leadership Thank You Letter ec2 Prescriptions: - EpiPen 0.3 mg/0.3 mL Injection Auto-Injector - administer 0.3 milliliter INTRAMUSCULAR route every 10 to 20 minutes as needed ec2 for anaphylaxis; for 2 doses; 2 unit; Refills: 0, Product Selection Permitted Signatures: Ernesto George RN RN bp Jordon Austin MD MD ec2 Rosio Gupta RN ap3
[2024-08-08 12:37] VITALS: TEMP 98
[2024-08-08 12:39] VITALS: BP 135/74; O2SAT 97
== END 2024-08-08 12:33 | disposition home or self-care (01) ==
LOC: ER 10:08
DX: R06.02 Shortness of breath (principal); D89.40 Mast cell activation, unspecified; I10 Essential (primary) hypertension
CPT/HCPCS: 96360; 99284

== ENCOUNTER 2024-10-10 12:47 | Emergency (ER) | payer OTHER ==
--- OUTSIDE RECORDS SUMMARY | 2024-10-10 12:54 | XMS REPORT | Continuity of Care Document ---
Author Name Unknown Address [address] [facility] [address] [place] [address] [facility] Address [address] [facility] 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 Phone TREY HAIDER Primary Care Physician Unav MARIUM Agee Attending Clinician Unavailable RAFIQ ANN Attending Clinician Unavailable RAFIQ ANN Attending Clinician Unavailable CATRACHITA MERCADO Attending Clinician Rafiq Mcgill MD Attending Clinician Johan [facility], Melissa Barbosa Attending Clinician Unavailab Jane Yoon CPhT Attending Clinician UnavailRosio Ruiz MD Attending Clinician [phone] Unknown, Attending Attending Clinician Unavailab ROSIO Heredia Attending Clinician Unavailable Faraz Taveras Attending Clinician UnavailCatrachita Taylor MD Attending Clinician [phone] Andrew Perry MD Attending Clinician [phone] ANA CASTILLO Attending Clinician UnavailAna Kaplan MD Attending Clinician [phone] Alysa Sprague CPhT Attending Clinician Unavail able Lester [facility] Attending Clinician Unavail able V[facility]-Lab Attending Clinician Unavailable Bryan [facility] Attending Clinician Unavailable Marley Tello RN Attending Clinician Unavailable MATILDE DIEGO Attending Clinician Unavailable Amanda Power DO Attending Clinician Johnathon BURKETT, Matilde Attending Clinician [phone] Doctor Unassigned, [place] Attending Clinician U Catrachita Camejo MD Attending Clinician [phone] [facility] Attending Clinician Unavailable DEBORAH WINSLOW Attending Clinician Unavailab Deborah Fregoso DO Attending Clinician [phone] GC_GCBZW_Kadiyala_S Attending Clinician Unavaila PAIGE Staton Attending Clinician Unavailable Paige Tate Attending Clinician [phone] Unknown, Attending Attending Clinician Unavailab AMANDA Qiu Attending Clinician Unavailable Mike BURKETT, Amanda Attending Clinician [phone] RACHNA BUSH Attending Clinician Unavailable Eleazar BURKETT, Rachna Attending Clinician + [phone] MORGAN VARGAS Attending Clinician Unavailable Morgan Vargas DO Attending Clinician [phone] MENG GALICIA Attending Clinician Unavailab Meng Barragan MD Attending Clinician [phone] AMANDA POWER Attending Clinician Unavailab , [facility] Int Med Allergy Attending Clinician U jose Roman MD, Lorene Juárez Attending Clinician [phone] LORENE ROMAN Attending Clinician UnaELIEZER Montaño Attending Clinician Unavailable Frandy Levy MD Attending Clinician + [phone] Eliezer Klein DO Attending Clinician [phone] Genaro Eubanks MD Attending Clinician [phone] Christopher [facility], Danyel Attending Clinician Unavailable Rosio Martinez MD Attending Clinician [phone] Cristofer HENRY Attending Clinician Unavailable Cristofer Pradhan Attending Clinician [phone] Pob, [facility] Lab Main Attending Clinician Unavailcarrie Jones [facility], [place] Attending Clinician Unavaila Marium Hernandez MD Attending Clinician [phone] Nell GUTIERRES, Alanna Oconnor Attending Clinician Unavail able Marium Damon Attending Clinician +[phone] BA WYLIE Attending Clinician UnavailMary OBRIEN, Ismael Velasco Attending Clinician [phone] Gwyn BURKETT, Ba Decker Attending Clinician +[phone] Joao GUTIERRES, Dedra Ponce Attending Clinician Unavailab le Only, Ang Db Test Attending Clinician UnavailShantanu OBRIEN, Bobbi Attending Clinician [phone] BOBBI BURCH Attending Clinician Unavailable Antonio BURKETT, Audrey Attending Clinician Unavaila elder Lucero MD, Ashwin Saenz Attending Clinician + [phone] Ernesto Tesfaye CRNA Attending Clinician [phone] Jaciel Ortiz MD, Mati Attending Clinician +[phone] Only, Adc Test Attending Clinician Unavailable SHRUTHI COLLADO Attending Clinician Unavail able Miko Araujo DO Attending Clinician [phone] , [facility] Surg Spec Procedure Attending Clinician Unavailable Provider, [facility] Attending Clinician Un available Pc, Adc Echo Room 1 - Attending Clinician yTrel Macario MD, Deborah Attending Clinician [phone] Mino Shahid MD Attending Clinician [phone] Anahy Owen MD Attending Clinician [phone] Tiana Smith MD Attending Clinician [phone] TIANA SMITH Attending Clinician Unavailab carmen OBRIEN, Annamaria Attending Clinician + [phone] ANAHY OWEN Attending Clinician Unavailable MARIUM DAWSON Admitting Clinician Unavailable MATILDE DIEGO Admitting Clinician Unavailable Matilde Diego MD Admitting Clinician [phone] DEBORAH WINSLOW Admitting Clinician Unavailab carmen GC_GCBZW_Josselinediyala_S Admitting Clinician Unavaila MORGAN Sawant Admitting Clinician Unavailable AMANDA POWER Admitting Clinician Unavailab ELIEZER Randall Admitting Clinician Unavailable Eliezer Klein DO Admitting Clinician [phone] Cristofer HENRY Admitting Clinician Unavailable Marium Dawson MD Admitting Clinician Anahy Owen MD Admitting Clinician [phone] Tiana Smith MD Admitting Clinician TIANA SMITH Admitting Clinician Unavailab ANAHY Lowe Admitting Clinician Unavailable Payers Payer Name Policy Type Policy Number Effective Date Expirati on Date Source MEDICARE PART A \\T\\ B [id number] 2014 00:00:00 [place] [id number] 2014 00:00:00 Problems Condition Name Condition Details Condition Category Status Onset Date Resolution Date Last Treatment Date Treating Clinician Comments Source Chronic idiopathic urticaria Chronic idiopathic urticaria Disease Active 2022-09- 00:00: 00 [facility] Chronic seasonal allergic rhinitis due to pollen Chronic seasonal allergic rhinitis due to pollen Disease Active 2022-09- 00:00: 00 [facility] Chronic rhinitis Chronic rhinitis Disease Active 2022-09 00:00: 00 [facility] Allergic conjunctiv itis of both eyes Allergic conjunctiv itis of both eyes Disease Active 2022-09 0 00:00: 00 [facility] Anaphylaxi s, subsequent encounter Anaphylaxi s, subsequent encounter Disease Active 2021-09 00:00: 00 [facility] 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 2021-09 0- 00:00: 00 [facility] Angioedema , initial encounter Angioedema , initial encounter Disease Active 10-15 00:00: 00 [facility] Allergic reaction, initial encounter Allergic reaction, initial encounter Disease Active 02-28 00:00: 00 [facility] Post-opera tive state Post-opera tive state Disease Active 02-28 00:00: 00 [facility] S/P laparoscop ic assisted vaginal hysterecto my (LAVH) S/P laparoscop ic assisted vaginal hysterecto my (LAVH) Disease Active - 00:00: 00 [facility] Crohn disease Crohn disease Disease Active 05-11 00:00: 00 [facility] Obesity (BMI 30-39.9) Obesity (BMI 30-39.9) Disease Active 05-11 00:00: 00 [facility] Bipolar I disorder, most recent episode depressed Bipolar I disorder, most recent episode depressed Disease Active 03-16 00:00: 00 Overview: Formattin g of this note might be different from the original. ICD10 Diagnosis Term Deicer Tester Utility [facility] Pelvic pain Pelvic pain Disease Resolve d 6-18 00:00: 00 2021-07-11 00:00:00 2021-07-11 18:15:54 [facility] Abnormal uterine bleeding (AUB) Abnormal uterine bleeding (AUB) Disease Resolve d 5-19 00:00: 00 2021-07-11 00:00:00 2021-07-11 18:15:53 [facility] Undifferen tiated abdominal pain Undifferen tiated abdominal pain Disease Resolve d 2019-09 0-17 00:00: 00 2021-02-28 00:00:00 2021-02-28 16:17:34 [facility] Intractabl e nausea and vomiting Intractabl e nausea and vomiting Disease Resolve d 6-20 00:00: 00 2021-02-28 00:00:00 2021-02-28 16:17:30 [facility] Fever and chills Fever and chills Disease Resolve d 5-27 00:00: 00 2021-02-28 00:00:00 2021-02-28 16:17:32 [facility] Allergies, Adverse Reactions, Alerts Allergy Name Allergy Type Status Severity Reaction(s) Onset Date Inactive Date Treating Clinician Comments Source Prochlor perazine Propensi ty to adverse reaction s Active Anaphylaxis 02-26 00:00: 00 [facility] PROCHLOR PERAZINE DRUG INGREDI Active Anaphylaxis 02-26 00:00: 00 [facility] Prochlor perazine Edisylat e Propensi ty to adverse reaction s Active Anaphylaxis 03-15 00:00: 00 [facility] PROCHLOR PERAZINE EDISYLAT E DRUG INGREDI Active Anaphylaxis 03-15 00:00: 00 [facility] Social History Social Habit Start Date Stop Date Quantity Comments Source History of tobacco use Passive smoker [facility] History SDOH Alcohol Frequency [facility] History SDOH [facility] Alcohol Binge [facility] Gender identity [facility] Sexual orientation U [facility] Alcoholic beverage intake 2024-10-04 00:00:00 2024-10-04 00:00:00 Current drinker of alcohol (finding) [facility] Cigarettes smoked current (pack per day) - Reported 2024-09-04 00:00:00 2024-09-04 00:00:00 [facility] Cigarette pack-years 2024-09-04 00:00:00 2024-09-04 00:00:00 [facility] Tobacco use and exposure 2024-09-04 00:00:00 2024-09-04 00:00:00 Smokeless tobacco non-user [facility] Alcohol intake 2023-12-10 00:00:00 2023-12-10 00:00:00 Current drinker of alcohol (finding) [facility] Exposure to SARS-CoV-2 (event) 2022-12-23 00:00:00 2023-01-02 09:43:00 Not sure [facility] History of Social function 2021-02-21 00:00:00 2021-02-21 00:00:00 [facility] Alcohol Comment 2018-05-11 00:00:00 2018-05-11 00:00:00 Occasional [facility] Sex assigned at 1985 00:00:00 1985 00:00:00 [facility] Smoking Status Start Date Stop Date Source Ex-smoker 2024-09-04 00:00:00 2024-09-04 00:00:00 U [facility] Medications Ordered Medication Name Filled Medication Name Start Date Stop Date Current Medication? Ordering Clinician Indication Dosage Frequency Signature (SIG) Comments Components Source foLIC acid 1 mg tablet 10-04 00:00: 00 Yes [id number] 1mg Take 1 tablet by mouth in the morning. [facility] methylPREDN ISolone 4 mg tablets 10-04 00:00: 00 Yes [id number] Take by mouth SEE-INSTRU CTIONS. follow package directions [facility] methotrexat e 2.5 mg tablet 10-04 00:00: 00 11-04 05:59 :00 Yes [id number] 15mg Take 6 tablets by mouth weekly [facility] meloxicam 7.5 mg tablet 09-20 00:00: 00 Yes 7.5mg Take 1 tablet by mouth in the morning. [facility] cefTRIAXone (ROCEPHIN) injection 1,000 mg 2023-09 17:15: 00 09-04 16:48 :00 No [id number] 1000mg 1,000 mg, Intramuscu lar, ONCE, 1 dose, On Wed09/04/24 at 1115, SHEEBA, Reason for Anti-Infec tive: Documented Infection, Documented Infection Site: HEENT, Duration of Therapy: Once (ED) [facility] clindamycin 300 mg capsule 2023-09 00:00: 00 09-15 05:59 :00 Yes [id number] 300mg Take 1 capsule by mouth 4 (four) times daily for 10 days. [facility] omalizumab (XOLAIR) 150 mg/mL injection 2023-09 00:00: 00 Yes [id number] 300mg inject 2 Syringes under the skin every 2 (two) weeks. [facility] tacrolimus 1 mg capsule 2023-09 00:00: 00 Yes [id number] 2mg Take 2 capsules by mouth every 12 (twelve) hours. [facility] predniSONE 20 mg tablet 2023-09 00:00: 00 Yes [id number] 60mg Take 3 tablets by mouth every morning. [facility] azelastine 137 mcg (0.1 %) nasal spray 2023-09 00:00: 00 Yes [id number] 1{spray } Use 1 Leonardo in each nostril 2 (two) times daily as needed for Runny nose. Use in each nostril as directed [facility] fluticasone propionate 50 mcg/actuati on nasal spray 2023-09 00:00: 00 Yes [id number] 2{spray } Use 2 Sprays in each nostril in the morning. [facility] NaCl 0.9% (NS) bolus infusion 1,000 mL 2023-09 23:00: 00 06-18 01:22 :00 No 1000mL at 999 mL/hr, 1,000 mL, IV Infusion, ONCE, 1 dose, On 06/17/24 at 1800, SHEEBA [facility] predniSONE 20 mg tablet 2023-09 00:00: 00 07-14 00:00 :00 No [id number] 60mg Take 3 tablets by mouth every morning. [facility] tacrolimus 1 mg capsule 04-14 00:00: 00 07-14 00:00 :00 No [id number] 2mg Take 2 capsules by mouth every 12 (twelve) hours. [facility] diphenhydrA MINE (BENADRYL) injection 25 mg 03-12 16:15: 00 03-12 15:37 :00 No 25mg 25 mg, Intravenou s, ONCE, 1 dose, On 03/12/24 at 1115, Routine [facility] montelukast (SINGULAIR) tablet 10 mg 03-12 14:00: 00 Yes 10mg 10 mg, Oral, DAILY, First dose on 03/12/24 at 0900, Until Discontinu ed, Routine [facility] DULoxetine (CYMBALTA) capsule 30 mg 03-12 14:00: 00 Yes 30mg 30 mg, Oral, DAILY, First dose on 03/12/24 at 0900, Until Discontinu ed, Routine [facility] allopurinoL (ZYLOPRIM) tablet 300 mg 03-12 14:00: 00 Yes 300mg 300 mg, Oral, DAILY, First dose on 03/12/24 at 0900, Until Discontinu ed, Routine [facility] cetirizine (ZYRTEC) tablet 10 mg 03-12 14:00: 00 Yes 10mg 10 mg, Oral, DAILY, First dose on Wed03/12/24 at 0900, Until Discontinu ed, Routine [facility] famotidine (PEPCID (PF)) injection 20 mg 03-12 13:00: 00 Yes 20mg 20 mg, Slow IV Push, Q12H, First dose on Wed03/12/24 at 0800, Until Discontinu ed, [facility] HYDROcodone -acetaminop hen (NORCO 5) 5-325 mg tablet 1 tablet 03-12 07:17: 01 Yes 1{tbl} 1 tablet, Oral, Q6HPRN, Starting on Wed03/12/24 at 0217, Until Discontinu ed, Routine, breakthrou gh pain [facility] acetaminoph en (TYLENOL) tablet 650 mg 03-12 07:16: 09 Yes 650mg 650 mg, Oral, Q6HPRN, Starting on 03/12/24 at 0216, Until Discontinu ed, Routine, Pain (scale 1-3), Temp > 38 C [facility] NaCl 0.9% (NS) IV infusion 1,000 mL 03-12 06:15: 00 Yes 1000mL at 100 mL/hr, IV Infusion, CONTINUOUS , Starting on Wed03/12/24 at 0115, Until Discontinu ed, Routine [facility] potassium chloride in water 10 mEq/100 mL RTU 10 mEq 03-12 06:00: 00 03-12 08:05 :00 No 10meq 10 mEq, IV Piggyback, Q1H, 2 doses, First dose on 03/12/24 at 0100, Last dose on Wed03/12/24 at 0200, Administer over 60 Minutes, 100 mL [facility] methylPREDN ISolone sod succ (SOLU-MEDRO L (PF)) injection 40 mg 03-12 05:00: 00 03-13 16:59 :00 No 40mg 40 mg, Intravenou s, Q6H, 6 doses, First dose (after last modificati on) on 03/12/24 at 0000, Last dose on 03/13/24 at 0600, 1 mL [facility] atorvastati n (LIPITOR) tablet 20 mg 03-12 02:00: 00 Yes 20mg 20 mg, Oral, QHS, First dose on 03/11/24 at 2100, Until Discontinu ed, Routine [facility] tacrolimus (PROGRAF) capsule 1 mg 03-12 01:00: 00 Yes 1mg 1 mg, Oral, Q12H, First dose on 03/11/24 at 2000, Until Discontinu ed, Routine, 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 [facility] ondansetron (ZOFRAN (PF)) injection 4 mg 03-11 23:04: 32 Yes 4mg 4 mg, Slow IV Push, Q6HPRN, Starting on 03/11/24 at 1804, Until Discontinu ed, Routine, Nausea and Vomiting (N/V) [facility] acetaminoph en (TYLENOL) tablet 650 mg 03-11 23:04: 21 03-12 07:17 :42 No 650mg 650 mg, Oral, Q6HPRN, Starting on 03/11/24 at 1804, Until 03/12/24 at 0217, Routine, Pain (scale 1-3), Temp > 38 C [facility] racEPINEPHr ine (S2 RACEMIC) 2.25 % nebulizer solution 0.5 mL 03-11 22:00: 00 03-11 21:07 :00 No .5mL 0.5 mL, Inhalation , ONCE, 1 dose, On 03/11/24 at 1700, SHEEBA [facility] famotidine (PEPCID (PF)) injection 20 mg 03-11 21:15: 00 03-11 21:15 :00 No 20mg 20 mg, Slow IV Push, ONCE, 1 dose, On 03/11/24 at 1615, SHEEBA [facility] tacrolimus 1 mg capsule 01-27 00:00: 00 04-14 00:00 :00 No [id number] 1mg Take 1 capsule by mouth every 12 (twelve) hours. [facility] EPINEPHrine (EPIPEN) 0.3 mg/0.3 mL injection 12-09 00:00: 00 Yes [id number] .3mg 0.3 mL by Intramuscu lar route as needed (anaphylax is). [facility] famotidine (PEPCID) 20 mg tablet 12-09 00:00: 00 Yes [id number] 20mg Take 1 tablet by mouth in the morning and 1 tablet in the evening. [facility] montelukast 10 mg tablet 12-09 00:00: 00 Yes [id number] 10mg Take 1 tablet by mouth in the morning. [facility] ketotifen 1 MG capsule 12-09 00:00: 00 03-11 00:00 :00 No [id number] 2mg Take 2 capsules by mouth in the morning and 2 capsules in the evening. [facility] tacrolimus 1 mg capsule 12-09 00:00: 00 01-25 00:00 :00 No [id number] 1mg Take 1 capsule by mouth every 12 (twelve) hours. [facility] predniSONE (DELTASONE) tablet 60 mg 2022-0930 22:45: 00 09-04 23:06 :00 No 60mg 60 mg, Oral, ONCE, 1 dose, On 09/04/23 at 1645, [facility] maalox:diph enhydrAMINE :lidocaine 2 % viscous 1:1:1 (FIRST-MOUT HWASH BLM) oral suspension 15 mL 2022-09 22:30: 00 09-04 23:06 :00 No 15mL 15 mL, Oral, ONCE, 1 dose, On 09/04/23 at 1630, Routine [facility] ketorolac (TORADOL) injection 15 mg 2022-09 20:45: 00 09-04 19:42 :00 No 15mg 15 mg, Slow IV Push, ONCE, 1 dose, On 09/04/23 at 1445, [facility] dicyclomine (BENTYL) tablet 20 mg 2022-09 20:30: 00 09-04 20:40 :00 No 20mg 20 mg, Oral, ONCE, 1 dose, On 09/04/23 at 1430, [facility] NaCl 0.9% (NS) bolus infusion 500 mL 2022-09 19:45: 00 09-04 23:06 :00 No 500mL at 999 mL/hr, 500 mL, IV Infusion, ONCE, 1 dose, On 09/04/23 at 1345, STAT [facility] ondansetron (ZOFRAN (PF)) injection 4 mg 2022-09 19:45: 00 09-04 19:42 :00 No 4mg 4 mg, Slow IV Push, ONCE, 1 dose, On 09/04/23 at 1345, [facility] predniSONE [facility] mg tablet 2022-09 00:00: 00 12-29 00:00 :00 No [id number] Take 3 pills every morning by mouth, until gone [facility] omalizumab (XOLAIR) 150 mg/mL injection 2022-09 006 00:00: 00 07-12 00:00 :00 No [id number] 300mg inject 2 Syringes under the skin every 2 (two) weeks. [facility] azelastine 137 mcg (0.1 %) nasal spray 2022-09 0 00:00: 00 03-11 00:00 :00 No [id number] 1{spray } Use 1 Leonardo in each nostril in the morning and 1 Leonardo in the evening. Use in each nostril as directed [facility] olopatadine 0.1 % ophthalmic solution 2022-09 0 00:00: 00 03-11 00:00 :00 No [id number] 1[drp] Place 1 Drop in both eyes 2 (two) times daily as needed for Allergies (itchy eyes symptoms with allergies) . [facility] cromolyn 100 mg/5 mL solution 2022-09 00:00: 00 12-29 00:00 :00 No [id number] 200mg Take 10 mL by mouth 4 (four) times daily. [facility] predniSONE 20 mg tablet 2022-09 00:00: 00 09-04 00:00 :00 No [id number] Take 3 tablets PO with Pepcid and Benadryl in case of an Allergic Reaction [facility] ketotifen 1 MG capsule 02-04 00:00: 00 Yes [id number] 2mg Take 2 capsules by mouth in the morning and 2 capsules in the evening. [facility] EPINEPHrine (EPIPEN) 0.3 mg/0.3 mL injection 02-04 00:00: 00 12-09 00:00 :00 No [id number] .3mg 0.3 mL by Intramuscu lar route as needed (anaphylax is). [facility] famotidine (PEPCID) 20 mg tablet 02-04 00:00: 00 12-09 00:00 :00 No [id number] 20mg Take 1 tablet by mouth in the morning and 1 tablet in the evening. [facility] montelukast 10 mg tablet 02-04 00:00: 00 12-09 00:00 :00 No [id number] 10mg Take 1 tablet by mouth in the morning. [facility] ketotifen 1 MG capsule 02-04 00:00: 12-09 00:00 :00 No [id number] 2mg Take 2 capsules by mouth in the morning and 2 capsules in the evening. [facility] predniSONE 20 mg tablet 02-04 00:00: 00 06-11 00:00 :00 No Take 3 tablets PO with Pepcid and Benadryl in case of an Allergic Reaction [facility] dexamethaso ne (DECADRON) injection 10 mg 01-02 14:54: 00 01-02 14:56 :00 No [id number] 10mg [facility] methylPREDN ISolone (MEDROL, EHSAN,) 4 mg tablets 01-02 00:00: 00 02-04 00:00 :00 No [id number] follow package directions [facility] benzonatate 200 mg capsule 01-02 00:00: 00 01-13 04:59 :00 No [id number] 200mg Take 1 capsule by mouth 3 (three) times daily as needed for Cough for up to 10 days. [facility] doxycycline hyclate 100 mg tablet 01-02 00:00: 00 01-10 04:59 :00 No [id number] 100mg Take 1 tablet by mouth in the morning and 1 tablet in the evening. Do all this for 7 days. [facility] codeine-gua ifenesin 10-100 mg/5 mL oral solution 01-02 00:00: 00 01-08 04:59 :00 No 10mL Take 10 mL by mouth every 6 (six) hours as needed for Cough for up to 5 days. Indication s: cough [facility] risperiDONE 3 mg tablet 12-28 00:00: 00 03-11 00:00 :00 No 3mg Take 1 tablet by mouth at bedtime. [facility] DULoxetine 30 mg capsule 12-23 00:00: 00 Yes [facility] famotidine (PEPCID (PF)) injection 20 mg 12-07 18:15: 00 12-07 17:23 :00 No 20mg 20 mg, Slow IV Push, ONCE NOW, 1 dose, On Wed12/07/22 at 1315, SHEEBA [facility] racEPINEPHr ine (S2 RACEMIC) 2.25 % nebulizer solution 0.5 mL 12-07 17:15: 00 12-07 17:16 :00 No .5mL 0.5 mL, Inhalation , ONCE, 1 dose, On Wed12/07/22 at 1215, STAT [facility] diphenhydrA MINE (BENADRYL) injection 50 mg 12-07 17:15: 00 12-07 17:12 :00 No 50mg 50 mg, Slow IV Push, ONCE, 1 dose, On Wed12/07/22 at 1215, STAT [facility] dexamethaso ne sod phos PF injection 10 mg 12-07 17:15: 00 12-07 17:12 :00 No 10mg 10 mg, Slow IV Push, ONCE, 1 dose, On Wed12/07/22 at 1215, 1 mL [facility] diphenhydrA MINE (BENADRYL) 25 mg capsule 12-07 00:00: 00 Yes [id number] Take 2 tablets PO with Prednisone and Pepcid in case of an Allergic Reaction [facility] albuterol 90 mcg/actuati on inhaler 12-07 00:00: 00 Yes [id number] 2{puff} Inhale 2 Puffs every 4 (four) hours as needed for Wheezing, Shortness of Breath or Bronchospa sm (Allergic Reaction). [facility] famotidine (PEPCID) 20 mg tablet 12-07 00:00: 00 02-04 00:00 :00 No [id number] Take 2 tablets PO in case of Allergic Reaction [facility] predniSONE 20 mg tablet 12-07 00:00: 00 02-04 00:00 :00 No [id number] Take 3 tablets PO with Pepcid and Benadryl in case of an Allergic Reaction [facility] indomethaci n 50 mg capsule 11-30 00:00: 00 03-12 00:00 :00 No TAKE 1 CAPSULE (50 MG) BY ORAL ROUTE 1 TIME PER DAY WITH FOOD NEEDED FOR HAND PAIN [facility] allopurinoL 300 mg tablet 11-11 00:00: 00 Yes 300mg Take 1 tablet by mouth in the morning. [facility] doxycycline hyclate 100 mg capsule 11-05 00:00: 00 06-11 00:00 :00 No [id number] 100mg Take 1 capsule by mouth every 12 (twelve) hours. [facility] levalbutero l (XOPENEX) nebulizer solution 1.25 mg 09-27 14:00: 00 Yes 1.25mg 1.25 mg, Inhalation , TID, First dose on 09/27/22 at 0800, Until Discontinu ed, Routine [facility] ipratropium -albuteroL (DUONEB) 0.5 mg-3 mg(2.5 mg base)/3 mL nebulizer solution 3 mL 09-27 14:00: 00 Yes 3mL 3 mL, Inhalation , QID, First dose on 09/27/22 at 0800, Until Discontinu ed, Routine [facility] methylpredn isolone sod succ (SOLU-MEDRO L) injection 125 mg 09-27 12:00: 00 Yes 125mg 125 mg, Intravenou s, Q6H, First dose on Wed09/27/22 at 0600, Until Discontinu ed, Routine [facility] LORazepam (ATIVAN) injection 1 mg 09-27 07:30: 00 09-27 07:20 :00 No 1mg 1 mg, Slow IV Push, ONCE, 1 dose, On 09/27/22 at 0130, STAT [facility] racEPINEPHr ine (S2 RACEMIC) 2.25 % nebulizer solution 0.5 mL 09-27 07:00: 00 09-27 07:04 :00 No .5mL 0.5 mL, Inhalation , ONCE, 1 dose, On 09/27/22 at 0100, [facility] famotidine (PEPCID (PF)) injection 20 mg 09-27 07:00: 00 09-27 07:05 :00 No 20mg 20 mg, Slow IV Push, ONCE, 1 dose, On 09/27/22 at 0100, [facility] diphenhydrA MINE (BENADRYL) injection 50 mg 09-27 07:00: 00 09-27 07:05 :00 No 50mg 50 mg, Slow IV Push, ONCE, 1 dose, On 09/27/22 at 0100, [facility] NaCl 0.9% (NS) bolus infusion 1,000 mL 09-20 01:15: 00 09-20 03:05 :00 No 1000mL at 999 mL/hr, 1,000 mL, IV Infusion, ONCE, 1 dose, On 09/19/22 at 1915, [facility] ondansetron (ZOFRAN (PF)) injection 4 mg 09-20 00:30: 00 09-20 00:36 :00 No 4mg 4 mg, Slow IV Push, ONCE, 1 dose, On 09/19/22 at 1830, [facility] famotidine (PEPCID (PF)) injection 20 mg 09-20 00:30: 00 09-20 00:36 :00 No 20mg 20 mg, Slow IV Push, ONCE, 1 dose, On 09/19/22 at 1830, [facility] ipratropium -albuteroL (DUONEB) 0.5 mg-3 mg(2.5 mg base)/3 mL nebulizer solution 3 mL 09-20 00:28: 00 09-20 00:36 :00 No 3mL 3 mL, Inhalation , ONCE, 1 dose, On 09/19/22 at 1830, [facility] methylPREDN ISolone 4 mg tablets 2023-0 1-14 00:00: 00 02-04 00:00 :00 No [id number] Take by mouth SEE-INSTRU CTIONS. follow package directions [facility] omal[facility] (XOLAIR[facility] injection 150 mg 09-14 22:15: 00 09-15 10:14 :00 No [id number] 150mg [facility] omalizumab (XOLAIR) injection 09-11 00:00: 00 06-11 00:00 :00 No [id number] 300mg inject 2 Syringes under the skin every 2 (two) weeks. [facility] montelukast 10 mg tablet 09-11 00:00: 00 02-04 00:00 :00 No [id number] 10mg Take 1 tablet by mouth in the morning. [facility] EPINEPHrine (EPIPEN) 0.3 mg/0.3 mL injection 09-11 00:00: 00 02-04 00:00 :00 No [id number] .3mg 0.3 mL by Intramuscu lar route as needed (anaphylax is). [facility] ketorolac (TORADOL) injection 30 mg 2021-09 04:45: 00 08-29 03:54 :00 No 30mg 30 mg, Slow IV Push, ONCE, 1 dose, On Wed08/28/22 at 2245, Routine [facility] iopamidol (ISOVUE 370-500 mL) injection 75 mL 2021-09 04:15: 00 08-29 03:18 :00 No [id number] 75mL 75 mL, Intravenou s, ONCE, 1 dose, On Wed08/28/22 at 2215, Routine [facility] dexamethaso ne sod phos PF injection 10 mg 2021-09 04:00: 00 08-29 03:54 :00 No 10mg 10 mg, Slow IV Push, ONCE, 1 dose, On Wed08/28/22 at 2200, 1 mL [facility] FENTanyl PF (SUBLIMAZE (PF)) injection 50 mcg 2021-09 03:45: 00 08-29 03:06 :00 No 50ug 50 mcg, Slow IV Push, ONCE, 1 dose, On Wed08/28/22 at 2145, Routine [facility] NaCl 0.9% (NS) bolus infusion 1,000 mL 2021-09 03:45: 00 08-29 04:31 :00 No 1000mL at 999 mL/hr, 1,000 mL, IV Infusion, ONCE, 1 dose, On Wed08/28/22 at 2145, [facility] ondansetron (ZOFRAN (PF)) injection 4 mg 2021-09 03:00: 00 08-29 03:06 :00 No 4mg 4 mg, Slow IV Push, ONCE, 1 dose, On Wed08/28/22 at 2100, [facility] predniSONE 10 mg tablet 2021-09 00:00: 00 02-04 00:00 :00 No [id number] Take 3 tablets by mouth daily for 5 days then take 2 tablets by mouth daily for 5 days then take 1 tablet by mouth daily for 5 days then take 0.5 tablets by mouth daily for 4 days then stop. [facility] omalizumab (XOLAIR) injection 150 mg 2021-09 17:45: 00 08-17 16:53 :00 No [id number] 150mg [facility] diphenhydrA MINE (BENADRYL) injection 50 mg 2021-09 17:55: 54 Yes 50mg 50 mg, Intravenou s, Q6HPRN, Starting on 08/15/22 at 1155, Until Discontinu ed, Routine, Itching, rash [facility] dicyclomine (BENTYL) 10 mg capsule 2021-09 17:15: 49 Yes 10mg Take 1 capsule by mouth 4 (four) times daily as needed for Abdominal pain. [facility] diphenhydrA MINE (BENADRYL) injection 50 mg 2021-09 16:45: 00 08-15 16:00 :00 No 50mg 50 mg, Intravenou s, ONCE, 1 dose, On 08/15/22 at 1045, Routine [facility] montelukast (SINGULAIR) tablet 10 mg 2021-09 15:00: 00 Yes 10mg 10 mg, Oral, DAILY, First dose on 08/15/22 at 0900, Until Discontinu ed, Routine [facility] lamoTRIgine (LAMICTAL) tablet 200 mg 2021-09 15:00: 00 Yes 200mg 200 mg, Oral, DAILY, First dose on 08/15/22 at 0900, Until Discontinu ed, Routine [facility] fluticasone propionate 50 mcg/actuati on nasal spray 1 Leonardo 2021-09 15:00: 00 Yes 1{spray } 1 Leonardo, Nasal, DAILY, First dose on 08/15/22 at 0900, Until Discontinu ed, Routine [facility] atorvastati n (LIPITOR) tablet 20 mg 2021-09 03:00: 00 Yes 20mg 20 mg, Oral, QHS, First dose on Wed08/14/22 at 2100, Until Discontinu ed, Routine [facility] methylPREDN ISolone sod succ (SOLU-MEDRO L (PF)) injection 40 mg 2021-09 02:00: 00 Yes 40mg 40 mg, Intravenou s, Q12H, First dose on Wed08/14/22 at 2000, Until Discontinu ed, 1 mL [facility] famotidine (PEPCID AC) tablet 20 mg 2021-09 02:00: 00 Yes 20mg 20 mg, Oral, BID, First dose on Wed08/14/22 at 2000, Until Discontinu ed, Routine [facility] cetirizine (ZYRTEC) tablet 10 mg 2021-09 02:00: 00 Yes 10mg 10 mg, Oral, BID, First dose on Wed08/14/22 at 2000, Until Discontinu ed, Routine [facility] hydralAZINE (APRESOLINE ) injection 10 mg 2021-09 01:01: 30 Yes 10mg 10 mg, Slow IV Push, Q4HPRN, Starting on Wed08/14/22 at 1901, Until Discontinu ed, Routine, DBP=>100; SBP=>160, For SBP > 160 [facility] ALPRAZolam (XANAX) tablet 0.25 mg 2021-09 00:47: 21 Yes .25mg 0.25 mg, Oral, TIDPRN, Starting on Wed08/14/22 at 1847, Until Discontinu ed, Routine, anxiety [facility] ondansetron (ZOFRAN) 4 mg/5 mL solution 4 mg 2021-09 00:47: 10 Yes 4mg 4 mg, Oral, Q6HPRN, Starting on Wed08/14/22 at 1847, Until Discontinu ed, Routine, Nausea and Vomiting (N/V) [facility] dicyclomine (BENTYL) capsule 10 mg 2021-09 00:00: 32 Yes 10mg 10 mg, Oral, QIDPRN, Starting on Wed08/14/22 at 1800, Until Discontinu ed, Routine, Abdominal pain [facility] cyclobenzap rine (FLEXERIL) tablet 10 mg 2021-09 00:00: 26 Yes 10mg 10 mg, Oral, QHSPRN, Starting on Wed08/14/22 at 1800, Until Discontinu ed, Routine, Muscle Spasms [facility] albuterol (VENTOLIN) inhaler 2 Puff 2021-09 00:00: 03 Yes 2{puff} 2 Puff, Inhalation , Q6HPRN, Starting on Wed08/14/22 at 1800, Until Discontinu ed, Routine, Wheezing, Shortness of Breath [facility] predniSONE 20 mg tablet 2021-09 00:00: 00 08-19 05:59 :00 No [id number] 40mg Take 2 tablets by mouth in the morning for 3 days. [facility] enoxaparin (LOVENOX) injection 40 mg 2021-09 23:00: 00 Yes 40mg 40 mg, Subcutaneo us, DAILY, First dose on Wed08/14/22 at 1700, Until Discontinu ed, Routine [facility] KCL 20 mEq/15 mL solution 40 mEq 2021-09 22:00: 00 08-14 21:08 :00 No 40meq 40 mEq, Oral, ONCE, 1 dose, On Wed08/14/22 at 1600, Routine [facility] NaCl 0.9% (NS) IV infusion 1,000 mL 2021-09 20:30: 00 08-14 20:02 :00 No 1000mL at 999 mL/hr, Intravenou s, ONCE, 1 dose, On Wed08/14/22 at 1430, SHEEBA [facility] racEPINEPHr ine (S2 RACEMIC) 2.25 % nebulizer solution 0.5 mL 2021-09 19:30: 00 08-14 19:32 :00 No .5mL 0.5 mL, Inhalation , ONCE, 1 dose, On Wed08/14/22 at 1330, STAT [facility] famotidine (PEPCID (PF)) injection 20 mg 2021-09 19:21: 00 08-14 19:22 :00 No 20mg 20 mg, Slow IV Push, ONCE, 1 dose, On Wed08/14/22 at 1330, [facility] omalizumab (XOLAIR) injection 2021-09 00:00: 00 09-11 00:00 :00 No 450mg inject 3 Syringes under the skin every 4 (four) weeks. [facility] EPINEPHrine 0.3 mg/0.3 mL injection 2021-09 00:00: 00 08-15 05:59 :00 No [id number] .3mg 0.3 mL by Intramuscu lar route once now for 1 dose. [facility] omalizumab (XOLAIR) injection 150 mg 2021-09 19:00: 00 07-22 18:05 :00 No [id number] 150mg [facility] predniSONE (DELTASONE) tablet 40 mg 2021-09 16:45: 00 06-28 16:49 :00 No 40mg 40 mg, Oral, ONCE, 1 dose, On 06/28/22 at 1145, Routine [facility] montelukast (SINGULAIR) tablet 10 mg 2021-09 14:00: 00 Yes 10mg 10 mg, Oral, DAILY, First dose on 06/28/22 at 0900, Until Discontinu ed, Routine [facility] lamoTRIgine (LAMICTAL) tablet 200 mg 2021-09 14:00: 00 Yes 200mg 200 mg, Oral, QAM, First dose on 06/28/22 at 0900, Until Discontinu ed, Routine [facility] fluticasone propionate 50 mcg/actuati on nasal spray 1 Leonardo 2021-09 14:00: 00 Yes 1{spray } 1 Leonardo, Nasal, DAILY, First dose on 06/28/22 at 0900, Until Discontinu ed, Routine [facility] atorvastati n (LIPITOR) tablet 20 mg 2021-09 14:00: 00 Yes 20mg 20 mg, Oral, DAILY, First dose on 06/28/22 at 0900, Until Discontinu ed, Routine [facility] enoxaparin (LOVENOX) injection 40 mg 2021-09 14:00: 00 Yes 40mg 40 mg, Subcutaneo us, DAILY, First dose on 06/28/22 at 0900, Until Discontinu ed, Routine [facility] dicyclomine (BENTYL) 10 mg capsule 2021-09 13:32: 28 Yes 10mg Take 10 mg by mouth 4 (four) times daily as needed for Abdominal pain. [facility] famotidine (PEPCID AC) tablet 20 mg 2021-09 13:00: 00 Yes 20mg 20 mg, Oral, BID, First dose on 06/28/22 at 0800, Until Discontinu ed, Routine [facility] acetaminoph en (TYLENOL) tablet 650 mg 2021-09 12:31: 12 Yes 650mg 650 mg, Oral, Q6HPRN, Starting on 06/28/22 at 0731, Until Discontinu ed, Routine, Pain (scale 1-3) [facility] NaCl 0.9% (NS) IV infusion 1,000 mL 2021-09 05:30: 00 Yes 1000mL at 125 mL/hr, IV Infusion, CONTINUOUS , Starting on 06/28/22 at 0030, Until Discontinu ed, Routine [facility] ondansetron (ZOFRAN (PF)) injection 4 mg 2021-09 03:07: 06 Yes 4mg 4 mg, Slow IV Push, Q6HPRN, Starting on 06/27/22 at 2207, Until Discontinu ed, Routine, Nausea and Vomiting (N/V) [facility] NaCl 0.9% (NS) IV infusion 1,000 mL 2021-09 03:00: 00 06-28 11:00 :00 No 1000mL at 125 mL/hr, IV Infusion, ONCE, 1 dose, On [facility] 06/27/22 at 2200, Routine [facility] KCL (KLOR-CON M20) tablet 40 mEq 2021-09 03:00: 00 06-28 02:33 :00 No 40meq 40 mEq, Oral, ONCE, 1 dose, On 06/27/22 at 2200, Routine [facility] hydrOXYzine (ATARAX) tablet 25 mg 2021-09 01:43: 10 Yes 25mg 25 mg, Oral, Q8HPRN, Starting on 06/27/22 at 2042, Until Discontinu ed, Itching [facility] dicyclomine (BENTYL) capsule 10 mg 2021-09 01:42: 46 Yes 10mg 10 mg, Oral, QIDPRN, Starting on 06/27/22 at 2041, Until Discontinu ed, Routine, Abdominal pain [facility] cyclobenzap rine (FLEXERIL) tablet 10 mg 2021-09 01:42: 33 Yes 10mg 10 mg, Oral, QHSPRN, Starting on 06/27/22 at 2041, Until Discontinu ed, Routine, Muscle Spasms [facility] predniSONE 20 mg tablet 2021-09 00:00: 00 07-02 04:59 :00 No [id number] 40mg Take 2 tablets by mouth in the morning for 3 days. [facility] EPINEPHrine 0.3 mg/0.3 mL injection 2021-09 00:00: 00 06-29 04:59 :00 No [id number] .3mg 0.3 mL by Intramuscu lar route once now for 1 dose. [facility] loratadine (CLARITIN) tablet 10 mg 2021-09 23:00: 00 Yes 10mg 10 mg, Oral, DAILY, First dose on 06/27/22 at 1800, Until Discontinu ed, Routine [facility] methylpredn isolone sod succ (SOLU-MEDRO L) injection 60 mg 2021-09 23:00: 00 06-28 15:45 :52 No 60mg 60 mg, Intravenou s, Q6H, 4 doses, First dose on 06/27/22 at 1800, Last dose on 06/28/22 at 1200, 2 mL [facility] NaCl 0.9% (NS) bolus infusion 1,000 mL 2021-09 20:30: 00 06-27 22:00 :00 No 1000mL at 999 mL/hr, 1,000 mL, IV Piggyback, ONCE, 1 dose, On 06/27/22 at 1530, STAT [facility] proMETHazin e (PHENERGAN) 25 mg in NaCl 0.9% (NS) 50 mL IV piggyback 2021-09 20:00: 00 06-27 19:58 :00 No 25mg 25 mg, IV Piggyback, ONCE, 1 dose, On 06/27/22 at 1500, SHEE[facility] famotidine (PEPCID (PF)) injection 20 mg 2021-09 19:00: 00 06-27 19:17 :00 No 20mg 20 mg, Slow IV Push, ONCE, 1 dose, On 06/27/22 at 1400, SHEEBA [facility] racEPINEPHr ine (S2 RACEMIC) 2.25 % nebulizer solution 0.5 mL 2021-09 19:00: 00 06-27 18:51 :00 No .5mL 0.5 mL, Inhalation , ONCE, 1 dose, On 06/27/22 at 1400, STAT [facility] omalizumab (XOLAIR) injection 150 mg 2021-09 0-20 18:00: 00 06-25 17:06 :00 No [id number] 150mg [facility] omalizumab (XOLAIR) injection 150 mg - 17:45: 00 05-28 17:10 :00 No [id number] 150mg [facility] omalizumab (XOLAIR) injection 150 mg 04-30 17:30: 00 04-30 16:42 :00 No [id number] 150mg [facility] famotidine (PEPCID) 20 mg tablet 8-25 00:00: 00 02-04 00:00 :00 No [id number] 20mg Take 1 tablet by mouth in the morning and 1 tablet in the evening. [facility] montelukast 10 mg tablet 8-25 00:00: 00 09-11 00:00 :00 No [id number] 10mg Take 1 tablet by mouth in the morning. [facility] cetirizine 10 mg tablet 7-28 00:00: 00 09-30 05:59 :00 No [id number] 10mg Take 1 tablet by mouth in the morning and 1 tablet in the evening. Do all this for 180 days. [facility] omalizumab (XOLAIR) injection 5-06 00:00: 00 08-14 00:00 :00 No 450mg inject 3 Syringes under the skin every 4 (four) weeks. [facility] famotidine (PEPCID) 20 mg tablet 01-09 00:00: 00 04-30 00:00 :00 No [id number] 20mg Take 1 tablet by mouth 2 (two) times daily. [facility] montelukast 10 mg tablet 01-09 00:00: 00 04-30 00:00 :00 No [id number] 10mg Take 1 tablet by mouth daily. [facility] ondansetron 4 mg disintegrat ing tablet 11-22 00:00: 00 03-12 00:00 :00 No [id number] 4mg Take 1 tablet by mouth every 8 (eight) hours as needed for Nausea and Vomiting (N/V). [facility] dicyclomine (BENTYL) 10 mg capsule 10-16 14:50: 58 Yes 10mg Take 10 mg by mouth 4 (four) times daily as needed for Abdominal pain. [facility] fluticasone propionate 50 mcg/actuati on nasal spray 09-27 00:00: 00 03-11 00:00 :00 No [id number] 1{spray } Use 1 Leonardo in each nostril daily. [facility] azelastine 137 mcg (0.1 %) nasal spray 09-27 00:00: 00 06-11 00:00 :00 No [id number] 1{spray } Use 1 Leonardo in each nostril 2 (two) times daily. Use in each nostril as directed [facility] EPINEPHrine 0.3 mg/0.3 mL injection 1- 00:00: 00 06-28 00:00 :00 No [facility] risperiDONE (RISPERDAL) 3 mg tablet 2020-09 14:07: 54 07-22 00:00 :00 No 3mg Take 3 mg by mouth at bedtime. [facility] atorvastati n 20 mg tablet 03-29 00:00: 00 Yes TAKE 1 TABLET BY MOUTH EVERY DAY DIRECTED [facility] albuterol 90 mcg/actuati on inhaler 02-28 00:00: 00 03-11 00:00 :00 No [id number] 2{puff} Inhale 2 Puffs every 6 (six) hours as needed for Wheezing or Shortness of Breath. [facility] famotidine (PEPCID) 40 mg tablet 02-26 00:00: 00 10-16 00:00 :00 No [id number] 40mg Take 1 tablet by mouth daily. [facility] predniSONE 20 mg tablet 02-26 00:00: 00 03-18 00:00 :00 No [id number] TAKE ONE TABLET BY MOUTH DAILY [facility] lithium carbonate 300 mg capsule 02-26 00:00: 00 03-18 00:00 :00 No [facility] docusate 100 mg capsule 02-22 00:00: 00 11-14 00:00 :00 No [id number] 100mg Take 1 capsule by mouth 2 (two) times daily as needed for Constipati on. [facility] cyclobenzap rine 10 mg tablet 01-09 00:00: 00 07-14 00:00 :00 No 10mg Take 10 mg by mouth at bedtime as needed for Muscle Spasms. [facility] meloxicam 15 mg tablet 01-09 00:00: 00 07-22 00:00 :00 No 15mg Take 15 mg by mouth daily. [facility] cetirizine 10 mg tablet 4-09 00:00: 00 04-11 00:00 :00 No 10mg Take 10 mg by mouth every morning. [facility] ondansetron 4 mg disintegrat ing tablet 09-28 00:00: 00 03-12 00:00 :00 No [id number] 4mg Take 1 tablet by mouth every 8 (eight) hours as needed for Nausea and Vomiting (N/V). [facility] acetaminoph en 500 mg tablet 2019-09 2-28 00:00: 00 06-27 00:00 :00 No 500mg Take 500 mg by mouth. [facility] traZODone 100 mg tablet 2019-09 1-12 00:00: 00 06-28 00:00 :00 No 100mg Take 100 mg by mouth at bedtime as needed for Insomnia. [facility] pantoprazol e 40 mg EC tablet 2019-09 00:00: 00 11-14 00:00 :00 No 40mg Take 40 mg by mouth daily. [facility] SUMAtriptan 25 mg tablet 2019-09 00:00: 00 Yes PLEASE SEE ATTACHED FOR DETAILED DIRECTIONS [facility] lamoTRIgine 100 mg tablet 2019-09 0-28 00:00: 00 03-11 00:00 :00 No 200mg Take 2 tablets by mouth every morning. [facility] topiramate 50 mg tablet 2019-09 0 00:00: 00 07-22 00:00 :00 No TAKE 1 TABLET (50 MG) BY ORAL ROUTE 1 TIMES PER DAY [facility] VENTOLIN HFA 90 mcg/actuati on inhaler 06-04 00:00: 00 03-11 00:00 :00 No INHALE ONE (1) PUFF(S) BY MOUTH EVERY FOUR HOURS. [facility] fluticasone propionate 50 mcg/actuati on nasal spray 06-04 00:00: 00 10-16 00:00 :00 No INSTILL ONE (1) SPRAY(S) INTO EACH NOSTRIL TWICE A DAY. [facility] proMETHazin e 25 mg tablet 02-26 00:00: 00 03-12 00:00 :00 No [id number] 25mg Take 1 tablet by mouth every 6 (six) hours as needed for Nausea and Vomiting (N/V). [facility] hydrOXYzine 25 mg capsule 2018-09 2- 00:00: 00 03-11 00:00 :00 No 25mg Take 1 capsule by mouth 3 (three) times daily as needed for Itching. [facility] lisinopril 20 mg tablet 2018-09 2-04 00:00: 00 07-22 00:00 :00 No [facility] STELARA 45 mg/0.5 mL SC injection 2018-09 00:00: 00 Yes INJECT 45MG (1 SYRINGE) SUBCUTANEO USLY EVERY 8 WEEKS. [facility] Immunizations Ordered Immunization Name Filled Immunization Name Date Status Comments Source Influenza Virus Vaccine Quad .5 mL IM 6+ MO 2020-06-23 00:00:00 Completed [facility] Influenza Virus Vaccine Quad .5 mL IM 6+ MO 2020-06-23 00:00:00 Completed [facility] Influenza Virus Vaccine Quad .5 mL IM 6+ MO 2020-06-23 00:00:00 Completed [facility] Influenza Virus Vaccine Quad .5 mL IM 6+ MO 2020-06-23 00:00:00 Completed [facility] Influenza Virus Vaccine Quad .5 mL IM 6+ MO 2020-06-23 00:00:00 Completed [facility] Influenza Virus Vaccine Quad .5 mL IM 6+ MO 2020-06-23 00:00:00 Completed [facility] Influenza Virus Vaccine Quad .5 mL IM 6+ MO 2020-06-23 00:00:00 Completed [facility] Influenza Virus Vaccine Quad .5 mL IM 6+ MO 2020-06-23 00:00:00 Completed [facility] Influenza Virus Vaccine Quad .5 mL IM 6+ MO 2020-06-23 00:00:00 Completed [facility] Influenza Virus Vaccine Quad .5 mL IM 6+ MO 2020-06-23 00:00:00 Completed [facility] Influenza Virus Vaccine Quad .5 mL IM 6+ MO 2020-06-23 00:00:00 Completed [facility] Influenza Virus Vaccine Quad .5 mL IM 6+ MO 2020-06-23 00:00:00 Completed [facility] Influenza Virus Vaccine Quad .5 mL IM 6+ MO 2020-06-23 00:00:00 Completed [facility] Influenza Virus Vaccine Quad .5 mL IM 6+ MO 2020-06-23 00:00:00 Completed [facility] Influenza Virus Vaccine Quad .5 mL IM 6+ MO 2020-06-23 00:00:00 Completed [facility] Influenza Virus Vaccine Quad .5 mL IM 6+ MO 2020-06-23 00:00:00 Completed [facility] Influenza Virus Vaccine Quad .5 mL IM 6+ MO 2020-06-23 00:00:00 Completed [facility] Influenza Virus Vaccine Quad .5 mL IM 6+ MO 2020-06-23 00:00:00 Completed [facility] Influenza Virus Vaccine Quad .5 mL IM 6+ MO 2020-06-23 00:00:00 Completed [facility] Influenza Virus Vaccine Quad .5 mL IM 6+ MO 2020-06-23 00:00:00 Completed [facility] Influenza Virus Vaccine Quad .5 mL IM 6+ MO 2020-06-23 00:00:00 Completed [facility] Influenza Virus Vaccine Quad .5 mL IM 6+ MO 2020-06-23 00:00:00 Completed [facility] Influenza Virus Vaccine Quad .5 mL IM 6+ MO 2020-06-23 00:00:00 Completed [facility] Influenza Virus Vaccine Quad .5 mL IM 6+ MO 2020-06-23 00:00:00 Completed [facility] Influenza Virus Vaccine Quad .5 mL IM 6+ MO 2020-06-23 00:00:00 Completed [facility] Influenza Virus Vaccine Quad .5 mL IM 6+ MO 2020-06-23 00:00:00 Completed [facility] Influenza Virus Vaccine Quad .5 mL IM 6+ MO 2020-06-23 00:00:00 Completed [facility] Influenza Virus Vaccine Quad .5 mL IM 6+ MO 2020-06-23 00:00:00 Completed [facility] Influenza Virus Vaccine Quad .5 mL IM 6+ MO 2020-06-23 00:00:00 Completed [facility] Influenza Virus Vaccine Quad .5 mL IM 6+ MO 2020-06-23 00:00:00 Completed [facility] Influenza Virus Vaccine Quad .5 mL IM 6+ MO 2020-06-23 00:00:00 Completed [facility] Influenza Virus Vaccine Quad .5 mL IM 6+ MO 2020-06-23 00:00:00 Completed [facility] Influenza Virus Vaccine Quad .5 mL IM 6+ MO 2020-06-23 00:00:00 Completed [facility] Influenza Virus Vaccine Quad .5 mL IM 6+ MO (FLUZONE/FLULAVAL/F LUARIX) 2020-06-23 00:00:00 Completed [facility] Influenza Virus Vaccine Quad .5 mL IM 6+ MO (FLUZONE/FLULAVAL/F LUARIX) 2020-06-23 00:00:00 Completed [facility] Influenza Virus Vaccine 2019-08-06 00:00:00 Completed [facility] Influenza Virus Vaccine 2019-08-06 00:00:00 Completed [facility] Influenza Virus Vaccine 2019-08-06 00:00:00 Completed [facility] Influenza Virus Vaccine 2019-08-06 00:00:00 Completed [facility] Influenza Virus Vaccine 2019-08-06 00:00:00 Completed [facility] Influenza Virus Vaccine 2019-08-06 00:00:00 Completed [facility] Influenza Virus Vaccine 2019-08-06 00:00:00 Completed [facility] Influenza Virus Vaccine 2019-08-06 00:00:00 Completed [facility] Influenza Virus Vaccine 2019-08-06 00:00:00 Completed [facility] Influenza Virus Vaccine 2019-08-06 00:00:00 Completed [facility] Influenza Virus Vaccine 2019-08-06 00:00:00 Completed [facility] Influenza Virus Vaccine 2019-08-06 00:00:00 Completed [facility] Influenza Virus Vaccine 2019-08-06 00:00:00 Completed [facility] Influenza Virus Vaccine 2019-08-06 00:00:00 Completed [facility] Influenza Virus Vaccine 2019-08-06 00:00:00 Completed [facility] Influenza Virus Vaccine 2019-08-06 00:00:00 Completed [facility] Influenza Virus Vaccine 2019-08-06 00:00:00 Completed [facility] Influenza Virus Vaccine 2019-08-06 00:00:00 Completed [facility] Influenza Virus Vaccine 2019-08-06 00:00:00 Completed [facility] Influenza Virus Vaccine 2019-08-06 00:00:00 Completed [facility] Influenza Virus Vaccine 2019-08-06 00:00:00 Completed [facility] Influenza Virus Vaccine 2019-08-06 00:00:00 Completed [facility] Influenza Virus Vaccine 2019-08-06 00:00:00 Completed [facility] Influenza Virus Vaccine 2019-08-06 00:00:00 Completed [facility] Influenza Virus Vaccine 2019-08-06 00:00:00 Completed [facility] Influenza Virus Vaccine 2019-08-06 00:00:00 Completed [facility] Influenza Virus Vaccine 2019-08-06 00:00:00 Completed [facility] Influenza Virus Vaccine 2019-08-06 00:00:00 Completed [facility] Influenza Virus Vaccine 2019-08-06 00:00:00 Completed [facility] Influenza Virus Vaccine 2019-08-06 00:00:00 Completed [facility] Influenza Virus Vaccine 2019-08-06 00:00:00 Completed [facility] Influenza Virus Vaccine 2019-08-06 00:00:00 Completed [facility] Influenza Virus Vaccine 2019-08-06 00:00:00 Completed [facility] Influenza Virus Vaccine 2019-08-06 00:00:00 Completed [facility] Influenza Virus Vaccine 2019-08-06 00:00:00 Completed [facility] Influenza Virus Vaccine Unknown Completed [facility] Influenza Virus Vaccine Quad .5 mL IM 6+ MO (FLUZONE/FLULAVAL/F LUARIX) Unknown Completed [facility] Influenza Virus Vaccine Unknown Completed [facility] Influenza Virus Vaccine Quad .5 mL IM 6+ MO (FLUZONE/FLULAVAL/F LUARIX) Unknown Completed [facility] Influenza Virus Vaccine Unknown Completed [facility] Influenza Virus Vaccine Quad .5 mL IM 6+ MO (FLUZONE/FLULAVAL/F LUARIX) Unknown Completed [facility] Influenza Virus Vaccine Unknown Completed [facility] Influenza Virus Vaccine Quad .5 mL IM 6+ MO (FLUZONE/FLULAVAL/F LUARIX) Unknown Completed [facility] Influenza Virus Vaccine Unknown Completed [facility] Influenza Virus Vaccine Quad .5 mL IM 6+ MO (FLUZONE/FLULAVAL/F LUARIX) Unknown Completed [facility] Influenza Virus Vaccine Unknown Completed [facility] Influenza Virus Vaccine Quad .5 mL IM 6+ MO (FLUZONE/FLULAVAL/F LUARIX) Unknown Completed [facility] Influenza Virus Vaccine Unknown Completed [facility] Influenza Virus Vaccine Quad .5 mL IM 6+ MO (FLUZONE/FLULAVAL/F LUARIX) Unknown Completed [facility] Influenza Virus Vaccine Unknown Completed [facility] Influenza Virus Vaccine Quad .5 mL IM 6+ MO (FLUZONE/FLULAVAL/F LUARIX) Unknown Completed [facility] Influenza Virus Vaccine Unknown Completed [facility] Influenza Virus Vaccine Quad .5 mL IM 6+ MO (FLUZONE/FLULAVAL/F LUARIX) Unknown Completed [facility] Influenza Virus Vaccine Unknown Completed [facility] Influenza Virus Vaccine Quad .5 mL IM 6+ MO (FLUZONE/FLULAVAL/F LUARIX) Unknown Completed [facility] Influenza Virus Vaccine Unknown Completed [facility] Influenza Virus Vaccine Quad .5 mL IM 6+ MO (FLUZONE/FLULAVAL/F LUARIX) Unknown Completed [facility] Influenza Virus Vaccine Unknown Completed [facility] Influenza Virus Vaccine Quad .5 mL IM 6+ MO (FLUZONE/FLULAVAL/F LUARIX) Unknown Completed [facility] Influenza Virus Vaccine Unknown Completed [facility] Influenza Virus Vaccine Quad .5 mL IM 6+ MO (FLUZONE/FLULAVAL/F LUARIX) Unknown Completed [facility] Influenza Virus Vaccine Unknown Completed [facility] Influenza Virus Vaccine Quad .5 mL IM 6+ MO (FLUZONE/FLULAVAL/F LUARIX) Unknown Completed [facility] Influenza Virus Vaccine Unknown Completed [facility] Influenza Virus Vaccine Quad .5 mL IM 6+ MO (FLUZONE/FLULAVAL/F LUARIX) Unknown Completed [facility] Influenza Virus Vaccine Unknown Completed [facility] Influenza Virus Vaccine Quad .5 mL IM 6+ MO (FLUZONE/FLULAVAL/F LUARIX) Unknown Completed [facility] Influenza Virus Vaccine Unknown Completed [facility] Influenza Virus Vaccine Quad .5 mL IM 6+ MO (FLUZONE/FLULAVAL/F LUARIX) Unknown Completed [facility] Influenza Virus Vaccine Unknown Completed [facility] Influenza Virus Vaccine Quad .5 mL IM 6+ MO (FLUZONE/FLULAVAL/F LUARIX) Unknown Completed [facility] Influenza Virus Vaccine Unknown Completed [facility] Influenza Virus Vaccine Quad .5 mL IM 6+ MO (FLUZONE/FLULAVAL/F LUARIX) Unknown Completed [facility] Influenza Virus Vaccine Unknown Completed [facility] Influenza Virus Vaccine Quad .5 mL IM 6+ MO (FLUZONE/FLULAVAL/F LUARIX) Unknown Completed [facility] Influenza Virus Vaccine Unknown Completed [facility] Influenza Virus Vaccine Quad .5 mL IM 6+ MO (FLUZONE/FLULAVAL/F LUARIX) Unknown Completed [facility] Influenza Virus Vaccine Unknown Completed [facility] Influenza Virus Vaccine Quad .5 mL IM 6+ MO (FLUZONE/FLULAVAL/F LUARIX) Unknown Completed [facility] Influenza Virus Vaccine Unknown Completed [facility] Influenza Virus Vaccine Quad .5 mL IM 6+ MO (FLUZONE/FLULAVAL/F LUARIX) Unknown Completed [facility] Influenza Virus Vaccine Unknown Completed [facility] Influenza Virus Vaccine Quad .5 mL IM 6+ MO (FLUZONE/FLULAVAL/F LUARIX) Unknown Completed [facility] Vital Signs Vital Name Observation Time Observation Value Comments S ource Systolic blood pressure 2024-10-04 19:49:00 145 mm[Hg] [facility] Diastolic blood pressure 2024-10-04 19:49:00 96 mm[Hg] [facility] Heart rate 2024-10-04 19:49:00 86 /min [facility] Respiratory rate 2024-10-04 19:49:00 17 /min [facility] Body height 2024-10-04 19:49:00 160 cm [facility] Body weight 2024-10-04 19:49:00 79.379 kg [facility] BMI 2024-10-04 19:49:00 31.00 kg/m2 [facility] Oxygen saturation in Arterial blood by Pulse oximetry 2024-10-04 19:49:00 99 /min [facility] Systolic blood pressure 2024-09-04 15:59:00 140 mm[Hg] [facility] Diastolic blood pressure 2024-09-04 15:59:00 95 mm[Hg] [facility] Heart rate 2024-09-04 15:59:00 91 /min [facility] Body temperature 2024-09-04 15:59:00 36.89 Lashawn [facility] Respiratory rate 2024-09-04 15:59:00 19 /min [facility] Body height 2024-09-04 15:59:00 160 cm [facility] Body weight 2024-09-04 15:59:00 76.658 kg [facility] BMI 2024-09-04 15:59:00 29.94 kg/m2 [facility] Oxygen saturation in Arterial blood by Pulse oximetry 2024-09-04 15:59:00 98 /min [facility] Systolic blood pressure 2024-07-14 15:40:00 154 mm[Hg] [facility] Diastolic blood pressure 2024-07-14 15:40:00 73 mm[Hg] [facility] Heart rate 2024-07-14 15:40:00 79 /min [facility] Respiratory rate 2024-07-14 15:40:00 18 /min [facility] Body height 2024-07-14 15:40:00 160 cm [facility] Body weight 2024-07-14 15:40:00 72.485 kg [facility] BMI 2024-07-14 15:40:00 28.31 kg/m2 [facility] Oxygen saturation in Arterial blood by Pulse oximetry 2024-07-14 15:40:00 99 /min [facility] Systolic blood pressure 2024-06-18 02:00:00 132 mm[Hg] [facility] Diastolic blood pressure 2024-06-18 02:00:00 73 mm[Hg] [facility] Heart rate 2024-06-18 02:00:00 82 /min [facility] Body temperature 2024-06-18 02:00:00 37.06 Lashawn [facility] Respiratory rate 2024-06-18 02:00:00 15 /min [facility] Oxygen saturation in Arterial blood by Pulse oximetry 2024-06-18 02:00:00 96 /min [facility] Body height 2024-06-17 21:41:00 160 cm [facility] Body weight 2024-06-17 21:41:00 66.679 kg [facility] BMI 2024-06-17 21:41:00 26.04 kg/m2 [facility] Heart rate 2024-04-11 17:32:00 77 /[facility] 2024-04-11 17:32:00 16 /min [facility] Body height 2024-04-11 17:32:00 160 cm [facility] Body weight 2024-04-11 17:32:00 68.811 kg [facility] BMI 2024-04-11 17:32:00 26.87 kg/m2 [facility] Oxygen saturation in Arterial blood by Pulse oximetry 2024-04-11 17:32:00 100 /min [facility] Systolic blood pressure 2024-04-11 17:32:00 118 mm[Hg] [facility] Diastolic blood pressure 2024-04-11 17:32:00 66 mm[Hg] [facility] Heart rate 2024-03-12 15:00:00 82 /min [facility] Oxygen saturation in Arterial blood by Pulse oximetry 2024-03-12 15:00:00 97 /min [facility] Systolic blood pressure 2024-03-12 13:00:00 141 mm[Hg] [facility] Diastolic blood pressure 2024-03-12 13:00:00 74 mm[Hg] [facility] Respiratory rate 2024-03-12 12:18:00 18 /min [facility] Body temperature 2024-03-12 12:16:00 36 Lashawn [facility] Body weight 2024-03-12 09:00:00 62.959 kg [facility] BMI 2024-03-12 09:00:00 24.59 kg/m2 [facility] Body height 2024-03-11 21:10:00 160 cm [facility] Systolic blood pressure 2023-12-10 15:40:00 134 mm[Hg] [facility] Diastolic blood pressure 2023-12-10 15:40:00 87 mm[Hg] [facility] Heart rate 2023-12-10 15:40:00 73 /min [facility] Respiratory rate 2023-12-10 15:40:00 18 /min [facility] Body height 2023-12-10 15:40:00 160 cm [facility] Body weight 2023-12-10 15:40:00 63.05 kg [facility] BMI 2023-12-10 15:40:00 24.62 kg/m2 [facility] Oxygen saturation in Arterial blood by Pulse oximetry 2023-12-10 15:40:00 99 /min [facility] Systolic blood pressure 2023-09-04 23:02:00 101 mm[Hg] [facility] Diastolic blood pressure 2023-09-04 23:02:00 79 mm[Hg] [facility] Heart rate 2023-09-04 23:02:00 77 /min [facility] Respiratory rate 2023-09-04 23:02:00 16 /min [facility] Oxygen saturation in Arterial blood by Pulse oximetry 2023-09-04 23:02:00 97 /min [facility] Body temperature 2023-09-04 19:21:00 37.89 Lashawn [facility] Body height 2023-09-04 19:20:00 160 cm [facility] Body weight 2023-09-04 19:20:00 61.689 kg [facility] BMI 2023-09-04 19:20:00 24.09 kg/m2 [facility] Systolic blood pressure 2023-06-11 16:32:00 125 mm[Hg] [facility] Diastolic blood pressure 2023-06-11 16:32:00 78 mm[Hg] [facility] Heart rate 2023-06-11 16:32:00 68 /min [facility] Respiratory rate 2023-06-11 16:32:00 18 /min [facility] Body height 2023-06-11 16:32:00 160 cm [facility] Body weight 2023-06-11 16:32:00 69.446 kg [facility] BMI 2023-06-11 16:32:00 27.12 kg/m2 [facility] Oxygen saturation in Arterial blood by Pulse oximetry 2023-06-11 16:32:00 99 /min [facility] Systolic blood pressure 2023-02-04 15:56:00 128 mm[Hg] [facility] Diastolic blood pressure 2023-02-04 15:56:00 84 mm[Hg] [facility] Heart rate 2023-02-04 15:56:00 112 /min [facility] Respiratory rate 2023-02-04 15:56:00 18 /min [facility] Body height 2023-02-04 15:56:00 160 cm [facility] Body weight 2023-02-04 15:56:00 87.544 kg [facility] BMI 2023-02-04 15:56:00 34.19 kg/m2 [facility] Oxygen saturation in Arterial blood by Pulse oximetry 2023-02-04 15:56:00 97 /min [facility] Systolic blood pressure 2023-01-02 14:49:00 140 mm[Hg] [facility] Diastolic blood pressure 2023-01-02 14:49:00 83 mm[Hg] [facility] Heart rate 2023-01-02 14:48:00 104 /min [facility] Body temperature 2023-01-02 14:48:00 37.5 Lashawn [facility] Respiratory rate 2023-01-02 14:48:00 17 /min [facility] Body height 2023-01-02 14:48:00 160 cm [facility] Body weight 2023-01-02 14:48:00 89.359 kg [facility] BMI 2023-01-02 14:48:00 34.90 kg/m2 [facility] Oxygen saturation in Arterial blood by Pulse oximetry 2023-01-02 14:48:00 98 /min [facility] Systolic blood pressure 2022-12-07 18:30:00 165 mm[Hg] [facility] Diastolic blood pressure 2022-12-07 18:30:00 108 mm[Hg] [facility] Heart rate 2022-12-07 18:30:00 110 /min [facility] Respiratory rate 2022-12-07 18:30:00 17 /min [facility] Oxygen saturation in Arterial blood by Pulse oximetry 2022-12-07 18:30:00 98 /min [facility] Body temperature 2022-12-07 17:17:00 38.17 Lashawn [facility] Body height 2022-12-07 17:10:00 162.6 cm [facility] Body weight 2022-12-07 17:10:00 87.544 kg [facility] BMI 2022-12-07 17:10:00 33.13 kg/m2 [facility] Systolic blood pressure 2022-11-26 16:28:00 133 mm[Hg] [facility] Diastolic blood pressure 2022-11-26 16:28:00 86 mm[Hg] [facility] Heart rate 2022-11-26 16:26:00 99 /min [facility] Respiratory rate 2022-11-26 16:26:00 18 /min [facility] Body height 2022-11-26 16:26:00 157.5 cm [facility] Body weight 2022-11-26 16:26:00 87.544 kg [facility] BMI 2022-11-26 16:26:00 35.30 kg/m2 [facility] Oxygen saturation in Arterial blood by Pulse oximetry 2022-11-26 16:26:00 97 /min [facility] Systolic blood pressure 2022-11-12 16:25:00 151 mm[Hg] [facility] Diastolic blood pressure 2022-11-12 16:25:00 92 mm[Hg] [facility] Heart rate 2022-11-12 16:25:00 95 /min [facility] Oxygen saturation in Arterial blood by Pulse oximetry 2022-11-12 16:25:00 97 /min [facility] Body temperature 2022-11-12 16:23:00 36.5 Lashawn [facility] Respiratory rate 2022-11-12 16:23:00 18 /min [facility] Body height 2022-11-12 16:23:00 157.5 cm [facility] Body weight 2022-11-12 16:23:00 85.639 kg [facility] BMI 2022-11-12 16:23:00 34.53 kg/m2 [facility] Systolic blood pressure 2022-11-10 15:41:00 134 mm[Hg] [facility] Diastolic blood pressure 2022-11-10 15:41:00 83 mm[Hg] [facility] Heart rate 2022-11-10 15:41:00 102 /min [facility] Body temperature 2022-11-10 15:41:00 37.39 Lashawn [facility] Respiratory rate 2022-11-10 15:41:00 18 /min [facility] Body height 2022-11-10 15:41:00 157.5 cm [facility] Body weight 2022-11-10 15:41:00 86.212 kg [facility] BMI 2022-11-10 15:41:00 34.76 kg/m2 [facility] Oxygen saturation in Arterial blood by Pulse oximetry 2022-11-10 15:41:00 100 /min [facility] Systolic blood pressure 2022-11-05 14:46:00 136 mm[Hg] [facility] Diastolic blood pressure 2022-11-05 14:46:00 88 mm[Hg] [facility] Heart rate 2022-11-05 14:46:00 90 /min [facility] Body temperature 2022-11-05 14:46:00 36.56 Lashawn [facility] Respiratory rate 2022-11-05 14:46:00 18 /min [facility] Body height 2022-11-05 14:46:00 157.5 cm [facility] Body weight 2022-11-05 14:46:00 86.274 kg [facility] BMI 2022-11-05 14:46:00 34.79 kg/m2 [facility] Oxygen saturation in Arterial blood by Pulse oximetry 2022-11-05 14:46:00 98 /min [facility] Systolic blood pressure 2022-09-27 11:30:00 161 mm[Hg] [facility] Diastolic blood pressure 2022-09-27 11:30:00 85 mm[Hg] [facility] Heart rate 2022-09-27 11:30:00 116 /min [facility] Respiratory rate 2022-09-27 11:30:00 19 /min [facility] Oxygen saturation in Arterial blood by Pulse oximetry 2022-09-27 11:30:00 95 /min [facility] Body temperature 2022-09-27 07:27:00 38 Lashawn [facility] Body weight 2022-09-27 07:00:00 90.719 kg [facility] BMI 2022-09-27 07:00:00 33.28 kg/m2 [facility] Systolic blood pressure 2022-09-20 03:00:00 130 mm[Hg] [facility] Diastolic blood pressure 2022-09-20 03:00:00 65 mm[Hg] [facility] Heart rate 2022-09-20 03:00:00 106 /min [facility] Respiratory rate 2022-09-20 03:00:00 21 /min [facility] Oxygen saturation in Arterial blood by Pulse oximetry 2022-09-20 03:00:00 94 /min [facility] Body temperature 2022-09-20 00:10:00 37.94 Lashawn [facility] Body height 2022-09-20 00:10:00 165.1 cm [facility] Body weight 2022-09-20 00:10:00 87.544 kg [facility] BMI 2022-09-20 00:10:00 32.12 kg/m2 [facility] Systolic blood pressure 2022-09-11 14:52:00 143 mm[Hg] [facility] Diastolic blood pressure 2022-09-11 14:52:00 83 mm[Hg] [facility] Heart rate 2022-09-11 14:52:00 98 /min [facility] Body temperature 2022-09-11 14:52:00 36.94 Lashawn [facility] Respiratory rate 2022-09-11 14:52:00 20 /min [facility] Body height 2022-09-11 14:52:00 160 cm [facility] Body weight 2022-09-11 14:52:00 87.544 kg [facility] BMI 2022-09-11 14:52:00 34.19 kg/m2 [facility] Oxygen saturation in Arterial blood by Pulse oximetry 2022-09-11 14:52:00 98 /min [facility] Heart rate 2022-08-29 04:25:00 93 /min [facility] Respiratory rate 2022-08-29 04:25:00 21 /min [facility] Oxygen saturation in Arterial blood by Pulse oximetry 2022-08-29 04:25:00 95 /min [facility] Systolic blood pressure 2022-08-29 04:00:00 140 mm[Hg] [facility] Diastolic blood pressure 2022-08-29 04:00:00 76 mm[Hg] [facility] Body temperature 2022-08-29 02:57:00 37.56 Lashawn [facility] Body height 2022-08-29 02:57:00 160 cm [facility] Body weight 2022-08-29 02:57:00 83.008 kg [facility] BMI 2022-08-29 02:57:00 32.42 kg/m2 [facility] Systolic blood pressure 2022-08-17 15:45:00 142 mm[Hg] [facility] Diastolic blood pressure 2022-08-17 15:45:00 92 mm[Hg] [facility] Heart rate 2022-08-17 15:45:00 84 /min [facility] Body weight 2022-08-17 15:45:00 81.33 kg [facility] BMI 2022-08-17 15:45:00 31.76 kg/m2 [facility] Oxygen saturation in Arterial blood by Pulse oximetry 2022-08-17 15:45:00 96 /min [facility] Body temperature 2022-08-15 22:00:00 36.33 Lashawn [facility] Heart rate 2022-08-15 13:50:00 99 /min [facility] Respiratory rate 2022-08-15 13:50:00 18 /min [facility] Oxygen saturation in Arterial blood by Pulse oximetry 2022-08-15 13:50:00 96 /min [facility] Systolic blood pressure 2022-08-15 10:00:00 130 mm[Hg] [facility] Diastolic blood pressure 2022-08-15 10:00:00 74 mm[Hg] [facility] Body weight 2022-08-14 19:19:00 82.555 kg [facility] BMI 2022-08-14 19:19:00 32.24 kg/m2 [facility] Systolic blood pressure 2022-07-22 15:15:00 135 mm[Hg] [facility] Diastolic blood pressure 2022-07-22 15:15:00 81 mm[Hg] [facility] Heart rate 2022-07-22 15:15:00 97 /min [facility] Body weight 2022-07-22 15:15:00 82.555 kg [facility] BMI 2022-07-22 15:15:00 32.24 kg/m2 [facility] Oxygen saturation in Arterial blood by Pulse oximetry 2022-07-22 15:15:00 98 /min [facility] Systolic blood pressure 2022-06-28 16:00:00 130 mm[Hg] [facility] Diastolic blood pressure 2022-06-28 16:00:00 62 mm[Hg] [facility] Heart rate 2022-06-28 16:00:00 100 /min [facility] Body temperature 2022-06-28 16:00:00 36.22 Lashawn [facility] Respiratory rate 2022-06-28 16:00:00 9 /min [facility] Oxygen saturation in Arterial blood by Pulse oximetry 2022-06-28 16:00:00 95 /min [facility] Body weight 2022-06-28 09:00:00 87.499 kg [facility] BMI 2022-06-28 09:00:00 34.17 kg/m2 [facility] Body height 2022-06-28 00:00:00 160 cm [facility] Systolic blood pressure 2022-06-25 14:10:00 131 mm[Hg] [facility] Diastolic blood pressure 2022-06-25 14:10:00 89 mm[Hg] [facility] Heart rate 2022-06-25 14:10:00 82 /min [facility] Body weight 2022-06-25 14:10:00 83.598 kg [facility] BMI 2022-06-25 14:10:00 32.65 kg/m2 [facility] Oxygen saturation in Arterial blood by Pulse oximetry 2022-06-25 14:10:00 97 /min [facility] Systolic blood pressure 2022-05-28 14:40:00 124 mm[Hg] [facility] Diastolic blood pressure 2022-05-28 14:40:00 76 mm[Hg] [facility] Heart rate 2022-05-28 14:40:00 83 /min [facility] Body weight 2022-05-28 14:40:00 84.687 kg [facility] BMI 2022-05-28 14:40:00 33.07 kg/m2 [facility] Oxygen saturation in Arterial blood by Pulse oximetry 2022-05-28 14:40:00 96 /min [facility] Systolic blood pressure 2022-04-30 14:11:00 119 mm[Hg] [facility] Diastolic blood pressure 2022-04-30 14:11:00 79 mm[Hg] [facility] Heart rate 2022-04-30 14:11:00 83 /min [facility] Body temperature 2022-04-30 14:11:00 36.94 Lashawn [facility] Respiratory rate 2022-04-30 14:11:00 18 /min [facility] Body height 2022-04-30 14:11:00 160 cm [facility] Body weight 2022-04-30 14:11:00 81.784 kg [facility] BMI 2022-04-30 14:11:00 31.94 kg/m2 [facility] Oxygen saturation in Arterial blood by Pulse oximetry 2022-04-30 14:11:00 97 /min [facility] Procedures Procedure Date / Time Performed Performing Clinician Source CRITICAL CARE 2024-06-17 21:37:00 Ana Castillo [facility] BASIC METABOLIC PANEL (NA, K, CL, CO2, GLUCOSE, BUN, CREATININE, CA) 2024-03-12 11:16:00 Matilde Diego [facility] CBC WITH DIFF 2024-03-12 11:16:00 Matilde Diego [facility] COMP. METABOLIC PANEL ([id number]) 2024-03-12 01:36:00 Ronen Bettencourt [facility] CBC WITH DIFF 2024-03-12 01:36:00 Ronen Bettencourt [facility] CT ABDOMEN PELVIS WO CONTRAST 2023-09-04 20:03:32 Deborah Winslow [facility] URINALYSIS 2023-09-04 19:41:00 Deborah Winslow [facility] POCT TEST 2023-09-04 19:40:00 Minor Winslow [facility] CONSENT/REFUSAL FOR DIAGNOSIS AND TREATMENT 2023-09-04 19:14:02 Doctor Unassigned, [place] [facility] XR CHEST 2 VW 2023-01-02 15:11:00 Paige Jones [facility] CONSENT/REFUSAL FOR DIAGNOSIS AND TREATMENT 2022-12-07 17:05:24 Doctor Unassigned, [place] [facility] CONSENT/REFUSAL FOR DIAGNOSIS AND TREATMENT 2022-11-26 15:30:32 Doctor Unassigned, [place] [facility] DISCLOSURE AND CONSENT, MEDICAL AND SURGICAL PROCEDURES 2022-11-12 06:01:00 Doctor Unassigned, [place] [facility] XR HAND 3+ VW RIGHT 2022-11-10 15:55:44 Sherly Jones [facility] PATIENT FINANCIAL POLICY 2022-11-05 14:24:59 Doctor Unassigned, [place] [facility] EMERGENCY DEPARTMENT DOCUMENTS 2022-10-15 06:01:00 Doctor Unassigned, [place] [facility] XR CHEST 1 VW 2022-09-27 07:30:00 Morgan Vargas [facility] COMP. METABOLIC PANEL ([id number]) 2022-09-20 00:35:00 Meng Galicia [facility] CBC WITH DIFF 2022-09-20 00:35:00 Meng Galicia U [facility] CT ABDOMEN PELVIS W CONTRAST 2022-08-29 03:21:00 Amanda Power [facility] LIPASE 2022-08-29 03:00:00 Amanda Power [facility] MAGNESIUM 2022-08-29 03:00:00 Amanda Power [facility] COMP. METABOLIC PANEL ([id number]) 2022-08-29 03:00:00 Amanda Power [facility] CBC WITH DIFF 2022-08-29 03:00:00 Amanda Power U [facility] URINALYSIS 2022-08-29 03:00:00 Amanda Pwoer [facility] NOTICE OF PRIVACY PRACTICES 2022-08-29 02:51:00 Doctor Unassigned, [place] [facility] CONSENT/REFUSAL FOR DIAGNOSIS AND TREATMENT 2022-08-29 02:49:23 Doctor Unassigned, [place] [facility] LACTIC ACID WHOLE BLOOD 2022-08-15 18:33:00 Ian Klein [facility] TEST, SERUM 2022-08-14 19:48:00 Jarrod Levy [facility] COMP. METABOLIC PANEL ([id number]) 2022-08-14 19:48:00 Frandy Levy [facility] CBC WITH DIFF 2022-08-14 19:48:00 Frandy Levy [facility] PROTHROMBIN TIME / INR 2022-08-14 19:48:00 Av Levy [facility] ACTIVATED PARTIAL THRMPLAS NKECHI 2022-08-14 19:48:00 Frandy Levy [facility] LACTIC ACID WHOLE BLOOD 2022-08-14 19:48:00 Dago Levy [facility] CRITICAL CARE 2022-08-14 19:11:00 Frandy Levy [facility] XR CHEST 2 VW 2022-06-27 19:48:40 [facility] TEST, SERUM 2022-06-27 19:44:00 Genaro Eubanks [facility] THYROID STIMULATING HORMONE 2022-06-27 19:44:00 Nancy Brar [facility] COMP. METABOLIC PANEL ([id number]) 2022-06-27 19:44:00 Genaro Eubanks [facility] CBC WITH DIFF 2022-06-27 19:44:00 Genaro Eubanks [facility] RAPID INFLUENZA A/B 2022-06-27 19:44:00 Genaro Eubanks [facility] RAPID RSV 2022-06-27 19:44:00 Genaro Eubanks [facility] COVID-19 (ID NOW RAPID TESTING) 2022-06-27 19:44:00 Genaro Eubanks [facility] Encounters Start Date/Time End Date/Time Encounter Type Admission Type Attending Clinicians Care Facility Care Department Encounter ID Source 2021-07-08 07:14:58 Emergency [facility] [id number] [facility] 2021-07-07 03:24:43 Emergency [facility] [id number] [facility] 2021-07-06 23:03:57 Inpatient R MARIUM DAWSON [facility] [id number] [facility] 2021-07-05 19:04:39 Emergency [facility] [id number] [facility] 2021-07-04 23:32:26 Emergency [facility] [id number] [facility] 2021-07-03 22:25:44 Emergency [facility] [id number] [facility] 2024-11-07 09:00:00 2024-11-07 09:00:00 Outpatient RAFIQ HUTCHINSON RAAI [facility] [id number] [facility] 2024-10-13 10:30:00 2024-10-13 10:30:00 Outpatient CATRACHITA LUNA [facility] [id number] [facility] 2024-10-04 14:00:00 2024-10-04 15:00:00 Office Visit Rafiq Ann [facility] ..114 350.1.13.10 4.2.7.2.686 [id number] [facility] 2024-10-04 14:00:00 2024-10-04 14:00:00 Outpatient RAFIQ HUTCHINSON RAAI [facility] [id number] [facility] 2024-09-20 00:00:00 2024-09-20 13:56:42 Specialty Pharmacy Melissa Prado Mai, Ngoc Mai [facility] 1.840.114 350.1.13.10 4.2.7.2.686 [id number] [facility] 2024-09-19 16:29:30 2024-09-19 16:29:30 Outpatient FUNMILAYO [facility] [id number] Terrence Velasco Justen 2024-09-14 00:00:00 2024-09-14 14:52:13 Specialty Pharmacy Jane Angeles Monique [facility] .840.114 350.1.13.10 4.2.7.2.686 [id number] [facility] 2024-09-04 09:40:00 2024-09-04 10:00:00 Urgent Care JuanRosio Unknown, Attending [facility] 1.840.114 350.1.13.10 4.2.7.2.686 [id number] [facility] 2024-09-04 09:40:00 2024-09-04 09:40:00 Outpatient R ROSIO MARTINEZ [facility] [id number] [facility] 2024-08-18 00:00:00 2024-08-18 12:50:16 Specialty Pharmacy Faraz Taveras Michael A [facility] 1.840.114 350.1.13.10 4.2.7.2.686 [id number] [facility] 2024-07-17 00:00:00 2024-07-17 09:26:06 Specialty Pharmacy Melissa Prado Mai, Ngoc Mai [facility] 1.840.114 350.1.13.10 4.2.7.2.686 [id number] [facility] 2024-07-14 00:00:00 2024-07-17 09:02:35 Patient Secure Catrachita Lemos [facility] 1.0.114 350.1.13.10 4.2.7.2.686 [id number] [facility] 2024-07-14 00:00:00 2024-07-14 16:32:54 Patient Secure Catrachita Lemos [facility] 1.840.114 350.1.13.10 4.2.7.2.686 [id number] [facility] 2024-07-14 10:00:00 2024-07-14 11:04:45 Outpatient R CATRACHITA MERCADO [facility] [id number] [facility] 2024-07-14 10:00:00 2024-07-14 11:04:45 Office Visit Catrachita Mercado [facility] 1..114 350.1.13.10 4.2.7.2.686 [id number] [facility] 2024-07-12 00:00:00 2024-07-14 09:45:07 Andrew Bautista [facility] 1.2.114 350.1.13.10 4.2.7.2.686 [id number] [facility] 2024-06-28 11:06:52 2024-06-28 11:06:52 Outpatient SFA [facility] [id number] Terrence Campuzano 2024-06-17 16:44:00 2024-06-17 21:15:00 Emergency X ANA CASTILLO [facility] ERT [id number] [facility] 2024-06-17 16:44:00 2024-06-17 21:15:00 Emergency Ana Castillo S [facility] 1.2840.114 350.1.13.10 4.2.7.2.686 [id number] [facility] 2024-06-06 00:00:00 2024-06-06 10:35:06 Specialty Pharmacy Jane Angeles Monique [facility] 1.2840.114 350.1.13.10 4.2.7.2.686 [id number] [facility] 2024-05-30 00:00:00 2024-05-30 12:34:04 Specialty Pharmacy Alysa Sprague Raven [facility] 1.2.840.114 350.1.13.10 4.2.7.2.686 [id number] [facility] 2024-05-30 00:00:00 2024-05-30 11:55:21 Specialty Pharmacy Alysa Sprague Raven [facility] 1.2.840.114 350.1.13.10 4.2.7.2.686 [id number] [facility] 2024-05-09 08:18:51 2024-05-09 08:18:51 Outpatient [facility] [id number] Terrence Velasco Justen 2024-05-03 00:00:00 2024-05-03 09:54:46 Telephone Alysa Sprague Raven [facility] 1.2.840.114 350.1.13.10 4.2.7.2.686 [id number] [facility] 2024-04-29 00:00:00 2024-04-29 12:08:47 Specialty Pharmacy Jocelyn Batista Tamara L [facility] 1.2.840.114 350.1.13.10 4.2.7.2.686 [id number] [facility] 2024-04-14 00:00:00 2024-04-14 08:33:42 Patient Secure Msg Catrachita Mercado [facility] 1.2.840.114 350.1.13.10 4.2.7.2.686 [id number] [facility] 2024-04-11 13:45:00 2024-04-11 14:00:00 Supervisor Of Officials Visit Vtc-Lab Catrachita Mercado [facility] 1..840.114 350.1.13.10 4.2.7.2.686 [id number] [facility] 2024-04-11 12:30:00 2024-04-11 13:21:55 Outpatient CATRACHITA LUNA [facility] [id number] [facility] 2024-04-11 12:30:00 2024-04-11 13:21:55 Office Visit Catrachita Mercado [facility] 1..114 350.1.13.10 4.2.7.2.686 [id number] [facility] 2024-03-29 00:00:00 2024-03-30 11:06:18 Telephone Radha Adams [facility] 1..114 350.1.13.10 4.2.7.2.686 [id number] [facility] 2024-03-21 13:00:00 2024-03-21 13:00:00 Outpatient CATRACHITA LUNA [facility] [id number] [facility] 2024-03-14 00:00:00 2024-03-14 14:56:25 Transition of Care Marley Tello ROSSI BOWDEN 1.84.114 350.1.13.10 4.2.7.2.686 [id number] [facility] 2024-03-14 13:00:00 2024-03-14 13:00:00 Outpatient CATRACHITA LUNA [facility] [id number] [facility] 2024-03-11 15:59:00 2024-03-12 11:09:00 Outpatient MATILDE KAY [facility] [id number] [facility] 2024-03-11 15:59:00 2024-03-12 11:09:00 Emergency Amanda Power Jelani [facility] 1.840.114 350.1.13.10 4.2.7.2.686 [id number] [facility] 2024-01-26 00:00:00 2024-02-26 18:16:54 Patient Secure Msg Doctor Unassigned, [place] [facility] 1.2.840.114 350.1.13.10 4.2.7.2.686 [id number] [facility] 2024-02-21 00:00:00 2024-02-21 10:38:14 Telephone [facility] 1.2.840.114 350.1.13.10 4.2.7.2.686 [id number] [facility] 2024-02-01 08:05:32 2024-02-01 08:05:32 Outpatient [facility] [id number] Terrence Campuzano 2024-01-26 00:00:00 2024-01-28 08:46:48 Catrachita Robertson [facility] 1.2.840.114 350.1.13.10 4.2.7.2.686 [id number] [facility] 2024-01-26 00:00:00 2024-01-26 11:11:01 Telephone Bryan [facility] 1.2.840.114 350.1.13.10 4.2.7.2.686 [id number] [facility] 2023-12-28 00:00:00 2023-12-28 00:00:00 Telephone [facility] 1.2.840.114 350.1.13.10 4.2.7.2.686 [id number] [facility] 2023-12-10 11:45:00 2023-12-10 12:00:00 Supervisor Of Officials Visit Vtc-Lab Catrachita Mercado [facility] 1..840.114 350.1.13.10 4.2.7.2.686 [id number] [facility] 2023-12-10 11:00:00 2023-12-10 11:33:42 Outpatient CATRACHITA LUNA [facility] [id number] [facility] 2023-12-10 11:00:00 2023-12-10 11:33:42 Office Visit Catrachita Mercado [facility]TY [place] [facility] 1..840.114 350.1.13.10 4.2.7.2.686 [id number] [facility] 2023-09-04 13:25:00 2023-09-04 17:12:00 Emergency X DEBORAH WINSLOW [facility] ERT [id number] [facility] 2023-09-04 13:25:00 2023-09-04 17:12:00 Emergency Deborah Winslow [facility] 1..840.114 350.1.13.10 4.2.7.2.686 [id number] [facility] 2023-07-14 10:51:11 2023-07-14 10:51:11 Outpatient [facility] [id number] Terrence Campuzano 2023-07-03 00:00:00 2023-07-03 00:00:00 Outpatient GC_GCBZW_Ka diyala_S [facility] [id number] [facility] 2023-06-11 11:30:00 2023-06-11 12:44:12 Outpatient CATRACHITA LUNA [facility] [id number] [facility] 2023-06-11 11:30:00 2023-06-11 12:44:12 [facility] 1.2.840.114 350.1.13.10 4.2.7.2.686 [id number] [facility] 2023-05-28 09:22:17 2023-05-28 09:22:17 Outpatient SFA SFA [id number] Terrenec Campuzano 2023-05-05 00:00:00 2023-05-05 00:00:00 Patient Secure Msg [facility]rachita Mercado [facility] 1.840.114 350.1.13.10 4.2.7.2.686 [id number] [facility] 2023-03-29 15:16:53 2023-03-29 15:16:53 Outpatient SFA SFA [id number] Terrence Campuzano 2023-02-16 00:00:00 2023-02-16 00:00:00 Patient Secure Catrachita Mercado [facility]TY [place] [facility] 1.2.840.114 350.1.13.10 4.2.7.2.686 [id number] [facility] 2023-02-11 00:00:00 2023-02-11 00:00:00 Telephone Catrachita Mercado [facility]TY [place] [facility] 1.840.114 350.1.13.10 4.2.7.2.686 [id number] [facility] 2023-02-04 12:00:00 2023-02-04 12:15:00 Supervisor Of Officials Visit Vtc-Lab Catrachita Mercado [facility]TY [place] [facility] 1.2.840.114 350.1.13.10 4.2.7.2.686 [id number] [facility] 2023-02-04 11:30:00 2023-02-04 11:39:11 Office Visit Catrachita Mercado [facility] 1..114 350.1.13.10 4.2.7.2.686 [id number] [facility] 2023-02-04 11:30:00 2023-02-04 11:39:11 Outpatient R CATRACHITA MERCADO [facility] [id number] [facility] 2023-02-03 11:00:28 2023-02-03 11:00:28 Outpatient [facility] [id number] Terrence Campuzano 2023-01-13 10:31:00 2023-01-13 10:31:00 Outpatient SFA SFA [id number] Terrence Campuzano 2023-01-02 09:55:10 2023-01-02 23:59:00 Outpatient R FANI JONESJOHNATHAN [facility] [id number] [facility] 2023-01-02 09:55:10 2023-01-02 23:59:00 Hospital Encounter Fani [facility]ssakya [facility] 1.840.114 350.1.13.10 4.2.7.2.686 [id number] [facility] 2023-01-02 10:00:00 2023-01-02 10:01:10 Urgent Care JonesFanijohnathan Unknown, Attending [facility] 1.840.114 350.1.13.10 4.2.7.2.686 [id number] [facility] 2022-12-07 12:06:00 2022-12-07 13:56:00 Emergency X AMANDA MCKEON [facility] ERT [id number] [facility] 2022-12-07 12:06:00 2022-12-07 13:56:00 Emergency Amanda Mckeon [facility] 1.840.114 350.1.13.10 4.2.7.2.686 [id number] [facility] 2022-11-26 10:45:00 2022-11-26 11:35:16 Outpatient R RACHNA BUSH [facility] [id number] [facility] 2022-11-26 10:45:00 2022-11-26 11:35:16 Office Visit Rachna Bush [facility] 1.2.840.114 350.1.13.10 4.2.7.2.686 [id number] [facility] 2022-11-26 00:00:00 2022-11-26 00:00:00 Orders Only Doctor Unassigned, [place] [facility] 1.2.840.114 350.1.13.10 4.2.7.2.686 [id number] [facility] 2022-11-12 14:00:00 2022-11-12 14:00:00 Outpatient R RACHNA BUSH [facility] [id number] [facility] 2022-11-12 10:00:00 2022-11-12 11:16:39 Outpatient R RACHNA BUSH [facility] [id number] [facility] 2022-11-12 10:00:00 2022-11-12 11:16:39 [facility] 1.2.840.114 350.1.13.10 4.2.7.2.686 [id number] [facility] 2022-11-12 00:00:00 2022-11-12 00:00:00 Orders Only Doctor Unassigned, [place] [facility] 1.2.840.114 350.1.13.10 4.2.7.2.686 [id number] [facility] 2022-11-10 09:48:22 2022-11-10 23:59:00 Outpatient R PAIGE JONES [facility] [id number] [facility] 2022-11-10 09:48:22 2022-11-10 23:59:00 [facility] OFFICE BUILDING 1.840.114 350.1.13.10 4.2.7.2.686 [id number] [facility] 2022-11-10 09:20:00 2022-11-10 09:55:29 Urgent Care Paige Jones Unknown, Attending [facility] MEDICAL OFFICE BUILDING 1.114 350.1.13.10 4.2.7.2.686 [id number] [facility] 2022-11-05 09:00:00 2022-11-05 09:37:01 Outpatient R RACHNA BUSH [facility] [id number] [facility] 2022-11-05 09:00:00 2022-11-05 09:37:01 Office Visit Rachna Bush [facility] NAL BUILDING 1.84.114 350.1.13.10 4.2.7.2.686 [id number] [facility] 2022-11-05 00:00:00 2022-11-05 00:00:00 Orders Only Doctor Unassigned, [place] [facility] 1..114 350.1.13.10 4.2.7.2.686 [id number] [facility] 2022-10-15 00:00:00 2022-10-15 00:00:00 Orders Only Doctor Unassigned, Massillon [facility] 1.0.114 350.1.13.10 4.2.7.2.686 [id number] [facility] 2022-09-27 00:57:00 2022-09-27 05:55:00 Emergency X MORGAN VARGAS [facility] ERT [id number] [facility] 2022-09-27 00:57:00 2022-09-27 05:55:00 Emergency Morgan Vargas [facility] 1.2.840.114 350.1.13.10 4.2.7.2.686 [id number] [facility] 2022-09-19 18:05:00 2022-09-19 21:16:00 Emergency MENG QUIROS [facility] ERT [id number] [facility] 2022-09-19 18:05:00 2022-09-19 21:16:00 Emergency Meng Galicia [facility] 1.2.840.114 350.1.13.10 4.2.7.2.686 [id number] [facility] 2022-09-11 10:00:00 2022-09-11 10:15:00 Supervisor Of Officials Visit Vtc-Lab Catrachita Mercado [facility] 1.2.840.114 350.1.13.10 4.2.7.2.686 [id number] [facility] 2022-09-11 10:00:00 2022-09-11 10:00:00 Outpatient CATRACHITA LUNA [facility] [id number] [facility] 2022-09-11 09:00:00 2022-09-11 09:56:11 Office Visit Catrachita Mercado [facility] 1.2840.114 350.1.13.10 4.2.7.2.686 [id number] [facility] 2022-09-10 09:30:00 2022-09-10 09:30:00 Outpatient CATRACHITA LUNA [facility] [id number] [facility] 2022-09-07 00:00:00 2022-09-07 00:00:00 Telephone [facility] [place] 1..114 350.1.13.10 4.2.7.2.686 [id number] [facility] 2022-08-28 20:52:00 2022-08-28 22:35:00 Emergency X AMANDA POWER [facility] ERT [id number] [facility] 2022-08-28 20:52:00 2022-08-28 22:35:00 Emergency Amanda Power [facility] 1..114 350.1.13.10 4.2.7.2.686 [id number] [facility] 2022-08-17 10:00:00 2022-08-17 10:30:00 Nurse Visit Nurse, [facility] Int Med Allergy Lorene Roman [facility] [place] 1..114 350.1.13.10 4.2.7.2.686 [id number] [facility] 2022-08-17 10:00:00 2022-08-17 10:00:00 Outpatient R LORENE ROMAN [facility] [id number] [facility] 2022-08-17 00:00:00 2022-08-17 00:00:00 Transition of Care Marley Tello [facility] 1..114 350.1.13.10 4.2.7.2.686 [id number] [facility] 2022-08-17 00:00:00 2022-08-17 00:00:00 Patient Secure Msg Doctor Unassigned, Massillon [facility] 1..114 350.1.13.10 4.2.7.2.686 [id number] [facility] 2022-08-14 13:24:00 2022-08-15 17:15:00 Inpatient Prince KLEINELIEZER [facility] JACKELYN [id number] [facility] 2022-08-14 13:24:00 2022-08-15 17:15:00 Hospital Encounter Frandy Levy Eliezer Klein [facility] 1..114 350.1.13.10 4.2.7.2.686 [id number] [facility] 2022-08-14 00:00:00 2022-08-14 00:00:00 [facility]achita Robertson [facility] [place] [facility] 1.114 350.1.13.10 4.2.7.2.686 [id number] [facility] 2022-07-22 09:30:00 2022-07-22 10:00:00 Nurse Visit Nurse, Vtc Int Med Allergy Lorene Roman [facility] 1. 350.1.13.10 4.2.7.2.686 [id number] [facility] 2022-07-22 09:30:00 2022-07-22 09:30:00 Outpatient R LORENE ROMAN [facility] [id number] [facility] 2022-06-30 00:00:00 2022-06-30 00:00:00 Transition of Care Marley Tello 1.114 350.1.13.10 4.2.7.2.686 [id number] [facility] 2022-06-29 00:00:00 2022-06-29 00:00:00 Patient Secure Msg Doctor Unassigned, Massillon [facility] 1.114 350.1.13.10 4.2.7.2.686 [id number] [facility] 2022-06-27 13:49:00 2022-06-28 13:32:00 Outpatient Prince ELIEZER KLEIN [facility] [id number] [facility] 2022-06-27 13:49:00 2022-06-28 13:32:00 Emergency Vasut, Eliezer John [facility] 1..114 350.1.13.10 4.2.7.2.686 [id number] [facility] 2022-06-25 09:30:00 2022-06-25 10:00:00 Nurse Visit Nurse, [facility] 1.114 350.1.13.10 4.2.7.2.686 [id number] [facility] 2022-06-25 09:30:00 2022-06-25 09:30:00 Outpatient CATRACHITA LUNA [facility] [id number] [facility] 2022-05-28 10:00:00 2022-05-28 10:30:00 Nurse Visit Nurse, [facility] Int Med Allergy [facility]rachita Merc[facility] 1.114 350.1.13.10 4.2.7.2.686 [id number] [facility] 2022-05-28 10:00:00 2022-05-28 10:00:00 Outpatient CATRACHITA LUNA [facility] [id number] [facility] 2022-05-13 00:00:00 2022-05-13 00:00:00 Telephone Danyel White [facility] 1.114 350.1.13.10 4.2.7.2.686 [id number] [facility] 2022-04-30 09:30:00 2022-04-30 10:06:23 Outpatient CATRACHITA LUNA [facility] [id number] [facility] 2022-04-30 09:30:00 2022-04-30 10:06:23 Office Visit [facility]ach[facility] Merc[facility] 1..114 350.1.13.10 4.2.7.2.686 [id number] [facility] 2022-04-30 09:30:00 2022-04-30 10:06:23 Outpatient CATRACHITA LUNA [facility] [id number] [facility] 2022-04-23 00:00:00 2022-04-23 00:00:00 Refill Catrachita Mercado [facility]TY [place] [facility] 1..114 350.1.13.10 4.2.7.2.686 [id number] [facility] 2022-04-02 00:00:00 2022-04-02 00:00:00 Telephone Catrachita Mercado [facility]ALTY [place] [facility] 1.114 350.1.13.10 4.2.7.2.686 [id number] [facility] 2022-03-30 13:00:00 2022-03-30 15:10:07 Outpatient R LORENE ROMAN [facility] [id number] [facility] 2022-03-30 13:00:00 2022-03-30 15:10:07 Nurse Visit Nurse, [facility] Int Med Allergy Lorene Roman Juárez [facility] [place] [facility] 1.114 350.1.13.10 4.2.7.2.686 [id number] [facility] 2022-03-05 09:00:00 2022-03-05 09:57:41 Outpatient LORENE FARMER [facility] [id number] [facility] 2022-03-05 09:00:00 2022-03-05 09:57:41 Nurse Visit Nurse, [facility] Int Med Allergy [facility] 1..114 350.1.13.10 4.2.7.2.686 [id number] [facility] 2022-02-04 09:00:00 2022-02-04 09:30:00 Nurse Visit Nurse, [facility] [place] [facility] 1.84114 350.1.13.10 4.2.7.2.686 [id number] [facility] 2022-02-04 09:00:00 2022-02-04 09:00:00 [facility] [id number] 2022-01-29 00:00:00 2022-01-29 00:00:00 Catrachita Robertson [facility] 1.84.114 350.1.13.10 4.2.7.2.686 [id number] [facility] 2022-01-27 00:00:00 2022-01-27 00:00:00 Rosio Trejo [facility] TATYANA PHILLIPS?JAYLENE BRYANT MEDICAL OFFICE BUILDING 1.84.114 350.1.13.10 4.2.7.2.686 [id number] [facility] 2022-01-09 08:30:00 2022-01-09 11:32:35 Outpatient CATRACHITA LUNA [facility] [id number] [facility] 2022-01-09 08:30:00 2022-01-09 11:32:35 Office Visit Catrachita Mercado [facility] I[facility] [place] [facility] 1.2.840.114 350.1.13.10 4.2.7.2.686 [id number] [facility] 2022-01-05 00:00:00 2022-01-05 00:00:00 Telephone Catrachita Mercado [facility] [place] [facility] 1.2.840.114 350.1.13.10 4.2.7.2.686 [id number] [facility] 2021-12-11 09:00:00 2021-12-11 11:00:00 Nurse Visit Nurse, [facility] Int Med Allergy Catrachita Mercado [facility] 1.2.840.114 350.1.13.10 4.2.7.2.686 [id number] [facility] 2021-12-11 09:00:00 2021-12-11 09:00:00 Outpatient R CATRACHITA MERCADO [facility] [id number] [facility] 2021-11-22 14:44:00 2021-11-22 20:04:00 Emergency X Cristofer HENRY [facility] ERT [id number] [facility] 2021-11-22 14:44:00 2021-11-22 20:04:00 Emergency Cristofer Henry [facility] 1.2.840.114 350.1.13.10 4.2.7.2.686 [id number] [facility] 2021-11-14 09:00:00 2021-11-14 11:12:34 Office [facility] 1.2.840.114 350.1.13.10 4.2.7.2.686 [id number] [facility] 2021-11-14 09:00:00 2021-11-14 11:12:34 Outpatient CATRACHITA LUNA [facility] [id number] [facility] 2021-11-14 09:00:00 2021-11-14 09:00:00 Outpatient CATRACHITA LUNA [facility] [id number] [facility] 2021-11-14 09:00:00 2021-11-14 09:00:00 Outpatient CATRACHITA LUNA [facility] [id number] [facility] 2021-11-12 08:00:00 2021-11-12 08:15:00 Supervisor Of Officials Visit Pob, Adc Lab Main Catrachita Mercado [facility] 1..840.114 350.1.13.10 4.2.7.2.686 [id number] [facility] 2021-11-12 08:00:00 2021-11-12 08:00:00 Outpatient CATRACHITA LUNA [facility] [id number] [facility] 2021-11-12 00:00:00 2021-11-12 00:00:00 Orders Only Doctor Unassigned, [place] [facility] 1.840.114 350.1.13.10 4.2.7.2.686 [id number] [facility] 2021-11-10 00:00:00 2021-11-10 00:00:00 Telephone Josephine Jones [facility] 1.840.114 350.1.13.10 4.2.7.2.686 [id number] [facility] 2021-11-07 11:00:00 2021-11-07 11:00:00 Outpatient CATRACHITA LUNA [facility] [id number] [facility] 2021-11-07 11:00:00 2021-11-07 11:00:00 Outpatient CATRACHITA LUNA [facility] [id number] [facility] 2021-11-05 00:00:00 2021-11-05 00:00:00 Patient Secure g [facility]achita Merc[facility] 1..114 350.1.13.10 4.2.7.2.686 [id number] [facility] 2021-11-05 00:00:00 2021-11-05 00:00:00 [facility] [place] 1..114 350.1.13.10 4.2.7.2.686 [id number] [facility] 2021-10-30 08:30:00 2021-10-30 09:00:00 Telemedici ne Visit [facility] 1.114 350.1.13.10 4.2.7.2.686 [id number] [facility] 2021-10-30 08:30:00 2021-10-30 08:30:00 Outpatient CATRACHITA LUNA [facility] [id number] [facility] 2021-10-30 08:30:00 2021-10-30 08:30:00 Outpatient CATRACHITA LUNA [facility] [id number] [facility] 2021-10-29 00:00:00 2021-10-29 00:00:00 Marium Garrett [facility] 1.840.114 350.1.13.10 4.2.7.2.686 [id number] [facility] 2021-10-19 00:00:00 2021-10-19 00:00:00 [facility] 1.2840.114 350.1.13.10 4.2.7.2.686 [id number] [facility] 2021-10-17 00:00:00 2021-10-17 00:00:00 Transition of Care Alanna Camejo 1.2840.114 350.1.13.10 4.2.7.2.686 [id number] [facility] 2021-10-15 14:23:00 2021-10-16 14:50:00 Outpatient Prince KLEIN [facility] [id number] [facility] 2021-10-15 14:23:00 2021-10-16 14:50:00 Emergency Marium Hickey David [facility] 1.20.114 350.1.13.10 4.2.7.2.686 [id number] [facility] 2021-09-27 11:15:00 2021-09-27 14:54:00 Emergency BA [facility] [id number] [facility] 2021-09-27 11:15:00 2021-09-27 14:54:00 Emergency Ismael Cotter Robert Lee [facility] 1.2840.114 350.1.13.10 4.2.7.2.686 [id number] [facility] 2021-09-27 10:20:00 2021-09-27 10:20:00 Urgent Care [facility]JAYLENE [facility] 1.2840.114 350.1.13.10 4.2.7.2.686 [id number] [facility] 2021-09-27 10:20:00 2021-09-27 10:16:45 Outpatient ROSIO HOPE [facility] [id number] [facility] 2021-08-12 00:00:00 2021-08-12 00:00:00 Telephone Catrachita Mercado [facility] MULTISPEC [facility] 1..114 350.1.13.10 4.2.7.2.686 [id number] [id number] [facility] 2021-08-12 00:00:00 2021-08-12 00:00:00 Orders Only Doctor Unassigned, Massillon [facility] 1..114 350.1.13.10 4.2.7.2.686 [id number] [facility] 2021-08-08 11:56:09 2021-08-08 12:11:09 Supervisor Of Officials Visit Vtc-Lab Catrachita Mercado [facility] 1.114 350.1.13.10 4.2.7.2.686 [id number] [facility] 2021-08-08 11:00:00 2021-08-08 11:56:31 Outpatient CATRACHITA LUNA [facility] [id number] [facility] 2021-08-08 10:03:35 2021-08-08 11:56:31 Office Visit Catrachita Mercado [facility] MULTISPEC [facility] 1.114 350.1.13.10 4.2.7.2.686 [id number] [facility] 2021-07-22 13:30:00 2021-07-22 14:05:17 Outpatient MARIUM [facility] [id number] Milad [facility] 2021-07-22 13:17:43 2021-07-22 14:05:17 Office [facility] 1.20.114 350.1.13.10 4.2.7.2.686 [id number] [facility] 2021-07-22 13:30:00 2021-07-22 13:30:00 Outpatient R MARIUM DAWSON [facility] [id number] [facility] 2021-07-22 13:30:00 2021-07-22 13:30:00 Outpatient R MARIUM DAWSON [facility] [id number] [facility] 2021-07-11 16:01:12 2021-07-11 16:49:47 Office Visit Marium Dawson [facility] 1.2.114 350.1.13.10 4.2.7.2.686 [id number] [facility] 2021-07-11 16:00:00 2021-07-11 16:49:47 Outpatient R MARIUM DAWSON [facility] [id number] [facility] 2021-07-11 00:00:00 2021-07-11 00:00:00 Telephone Marium Dawson [facility] 1..114 350.1.13.10 4.2.7.2.686 [id number] [facility] 2021-06-20 17:48:00 2021-06-20 21:24:00 Emergency Cristofer Henry [facility] 1.20.114 350.1.13.10 4.2.7.2.686 [id number] [facility] 2021-05-08 00:00:00 2021-05-08 00:00:00 Letter (Out) Dedra Shepherd [facility] 1.2.114 350.1.13.10 4.2.7.2.686 [id number] [facility] 2021-05-07 09:27:26 2021-05-07 09:37:26 Laboratory Only Only, Ang Db Test Bobbi Burch [facility] Tatyana bryant [facility] 1.20.114 350.1.13.10 4.2.7.2.686 [id number] [facility] 2021-05-07 09:25:00 2021-05-07 09:25:00 Outpatient R MARCIN BOBBI [facility] [id number] [facility] 2021-04-11 12:33:14 2021-04-11 12:48:14 Supervisor Of Officials Visit Moc-Lab Catrachita Mercado [facility] 1.114 350.1.13.10 4.2.7.2.686 [id number] [facility] 2021-04-11 11:19:19 2021-04-11 12:35:51 Office Visit Catrachita Mercado [facility] 1.114 350.1.13.10 4.2.7.2.686 [id number] [facility] 2021-04-11 12:00:00 2021-04-11 12:00:00 Outpatient R CATRACHITA MERCADO [facility] [id number] [facility] 2021-04-08 10:25:23 2021-04-08 11:26:58 Office Visit Marium Dawson [facility] 1.114 350.1.13.10 4.2.7.2.686 [id number] [facility] 2021-04-08 10:30:00 2021-04-08 10:30:00 Outpatient R MARIUM DAWSON [facility] [id number] [facility] 2021-03-26 00:00:00 2021-03-26 00:00:00 Patient Secure Msg Audrey Alvarez [facility] 1.114 350.1.13.10 4.2.7.2.686 [id number] [facility] 2021-03-25 15:30:00 2021-03-25 15:30:00 Outpatient R MARIUM DAWSON [facility] [id number] [facility] 2021-03-18 14:34:51 2021-03-18 14:49:51 Supervisor Of Officials Visit Vtc-Lab Catrachita Mercado [facility] 1. 350.1.13.10 4.2.7.2.686 [id number] [facility] 2021-03-18 13:38:25 2021-03-18 14:35:19 Office Visit Catrachita Mercado [facility] 1. 350.1.13.10 4.2.7.2.686 [id number] [facility] 2021-03-18 13:30:00 2021-03-18 13:30:00 Outpatient R CATRACHITA MERCADO [facility] [id number] [facility] 2021-03-03 00:00:00 2021-03-03 00:00:00 Patient Secure Msg Doctor Unassigned, Massillon [facility] 1. 350.1.13.10 4.2.7.2.686 [id number] [facility] 2021-02-28 15:07:35 2021-02-28 16:01:07 Office Visit Marium Dawson [facility] 1.2.840.114 350.1.13.10 4.2.7.2.686 [id number] [facility] 2021-02-28 15:30:00 2021-02-28 15:30:00 Outpatient R MARIUM DAWSON [facility] [id number] [facility] 2021-02-26 19:08:00 2021-02-26 22:19:00 Emergency Ashwin Lucero [facility] 1.2.840.114 350.1.13.10 4.2.7.2.686 [id number] [facility] 2021-02-21 07:31:00 2021-02-22 12:50:00 Hospital Encounter Samir Marium [facility] 1.2.840.114 350.1.13.10 4.2.7.2.686 [id number] [facility] 2021-02-21 08:16:00 2021-02-21 13:05:00 Anesthesia Event Ernesto Tesfaye Leonard [facility] 1.2.840.114 350.1.13.10 4.2.7.2.686 [id number] [facility] 2021-02-21 08:30:00 2021-02-21 12:52:00 Surgery Samir Marium [facility] 1.2.840.114 350.1.13.10 4.2.7.2.686 [id number] [facility] 2021-02-21 00:00:00 2021-02-21 00:00:00 Orders Only Doctor Unassigned, Massillon [facility] 1.2.840.114 350.1.13.10 4.2.7.2.686 [id number] [facility] 2021-02-20 08:30:00 2021-02-20 08:30:00 Outpatient R MARIUM DAWSON [facility] [id number] [facility] 2021-02-20 08:08:54 2021-02-20 08:23:54 Supervisor Of Officials Visit Pob, Adc Lab Main Marium Dawson [facility] 1.84.114 350.1.13.10 4.2.7.2.686 [id number] [facility] 2021-02-20 08:08:25 2021-02-20 08:23:25 Laboratory Only Only, [facility] Test Marium Dawson [facility] 1..114 350.1.13.10 4.2.7.2.686 [id number] [facility] 2021-02-19 00:00:00 2021-02-19 00:00:00 Orders Only Doctor Unassigned, [place] [facility] 1.114 350.1.13.10 4.2.7.2.686 [id number] [facility] 2021-02-18 08:15:00 2021-02-18 08:15:00 Outpatient R MARIUM DAWSON [facility] [id number] [facility] 2021-02-06 10:30:00 2021-02-06 10:30:00 Outpatient R MARIUM DAWSON [facility] [id number] [facility] 2021-01-29 00:00:00 2021-01-29 00:00:00 Outpatient R MARIUM DAWSON [facility] [id number] [facility] 2021-01-24 14:18:23 2021-01-24 15:08:39 Office Visit Marium Dawson [facility] 1.84.114 350.1.13.10 4.2.7.2.686 [id number] [facility] 2021-01-24 14:30:00 2021-01-24 14:30:00 Outpatient R FISH, MARIUM [facility] [id number] [facility] 2021-01-24 00:00:00 2021-01-24 00:00:00 Orders Only Doctor Unassigned, [place] [facility] 1.2840.114 350.1.13.10 4.2.7.2.686 [id number] [facility] 2021-01-21 09:00:00 2021-01-21 09:00:00 Outpatient MARIUM KAISER [facility] [id number] [facility] 2021-01-02 10:30:00 2021-01-02 10:30:00 Outpatient R HEAVENSHRUTHI [facility] [id number] [facility] 2020-11-25 00:00:00 2020-11-25 00:00:00 Patient Outreach Miko Araujo [facility] 1.2840.114 350.1.13.10 4.2.7.2.686 [id number] [facility] 2020-09-28 13:43:00 2020-09-28 16:38:00 Emergency Lauri Vargasip [facility] 1.2840.114 350.1.13.10 4.2.7.2.686 [id number] [facility] 2020-09-17 13:24:29 2020-09-17 14:54:21 Office Visit Rachna Bush [facility] Professio [facility] 1.2840.114 350.1.13.10 4.2.7.2.686 [id number] [facility] 2020-09-17 13:45:00 2020-09-17 13:45:00 Outpatient R RACHNA BUSH [facility] [id number] [facility] 2020-09-05 10:40:42 2020-09-05 11:50:15 Office Visit Rachna Bush Rm, Adc Surg Spec Procedure [facility] 1.2.840.114 350.1.13.10 4.2.7.2.686 [id number] [facility] 2020-09-05 10:45:00 2020-09-05 10:45:00 Outpatient R RACHNA BUSH [facility] [id number] [facility] 2020-09-05 00:00:00 2020-09-05 00:00:00 Orders Only Doctor Unassigned, [place] [facility] 1.2840.114 350.1.13.10 4.2.7.2.686 [id number] [facility] 2020-08-06 15:20:07 2020-08-06 16:38:34 Office Visit Rachna Bush [facility] 1.2.840.114 350.1.13.10 4.2.7.2.686 [id number] [facility] 2020-08-06 15:30:00 2020-08-06 15:30:00 Outpatient R RACHNA BUSH [facility] [id number] [facility] 2020-07-31 00:00:00 2020-07-31 00:00:00 Telephone Rachna Bush [facility] 1.2.840.114 350.1.13.10 4.2.7.2.686 [id number] [facility] 2020-07-30 14:25:30 2020-07-30 16:00:44 Office Visit Rachna Bush [facility] 1.2.840.114 350.1.13.10 4.2.7.2.686 [id number] [facility] 2020-07-30 14:30:00 2020-07-30 14:30:00 Outpatient R RACHNA BUSH [facility] [id number] [facility] 2020-07-30 00:00:00 2020-07-30 00:00:00 Orders Only Doctor Unassigned, [place] [facility] 1.0.114 350.1.13.10 4.2.7.2.686 [id number] [facility] 2020-07-27 13:06:42 2020-07-27 14:02:20 Urgent Care Provider, [facility] Marcin Bobbi Golisano [facility] Office Building One 1..114 350.1.13.10 4.2.7.2.686 [id number] [facility] 2020-07-27 13:20:00 2020-07-27 13:20:00 Outpatient R MARCIN BOBBI [facility] [id number] [facility] 2020-07-18 08:48:25 2020-07-18 09:48:25 Laboratory Only Pc, Adc Echo Room 1 - [facility] Building 1.114 350.1.13.10 4.2.7.2.686 [id number] [facility] 2020-07-18 09:00:00 2020-07-18 09:00:00 Outpatient R [facility] [id number] [facility] 2020-07-18 00:00:00 2020-07-18 00:00:00 Orders Only Doctor Unassigned, [place] [facility] 1..114 350.1.13.10 4.2.7.2.686 [id number] [id number] [facility] 2020-06-25 00:00:00 2020-06-25 00:00:00 Transition of Care Marley Tello 1..114 350.1.13.10 4.2.7.2.686 [id number] [facility] 2020-06-22 12:07:00 2020-06-23 14:40:00 Emergency Shahid, Mino Jhonychristopher Anahy [facility] 1.2.840.114 350.1.13.10 4.2.7.2.686 [id number] [facility] 2020-06-12 00:00:00 2020-06-12 00:00:00 Orders Only Doctor Unassigned, [place] [facility] 1.2.840.114 350.1.13.10 4.2.7.2.686 [id number] [facility] 2020-03-19 00:00:00 2020-03-19 00:00:00 Orders Only Doctor Unassigned, [place] [facility] 1.2.840.114 350.1.13.10 4.2.7.2.686 [id number] [id number] 2020-03-19 00:00:00 2020-03-19 00:00:00 Orders Only Doctor Unassigned, [place] [facility] 1.2.840.114 350.1.13.10 4.2.7.2.686 [id number] [facility] 2020-02-28 00:00:00 2020-02-28 00:00:00 Transition of Care Marley Tello [place] 1.2.840.114 350.1.13.10 4.2.7.2.686 [id number] 2020-02-28 00:00:00 2020-02-28 00:00:00 Transition of Care Marlye Tello [place] 1.2.840.114 350.1.13.10 4.2.7.2.686 [id number] [facility] 2020-02-23 21:57:28 2020-02-27 16:56:00 Hospital Encounter Tiana Smith [facility] 1.2.840.114 350.1.13.10 4.2.7.2.686 [id number] 2020-02-23 21:57:28 2020-02-27 16:56:00 Inpatient U TIANA SMITH [facility] [id number] [facility] 2020-02-23 21:57:28 2020-02-27 16:56:00 [facility] 1.2.840.114 350.1.13.10 4.2.7.2.686 [id number] [facility] 2020-01-31 13:56:16 2020-02-02 12:50:00 Hospital Encounter Annamaria Cardenas Yaman [facility] 1.2.840.114 350.1.13.10 4.2.7.2.686 [id number] 2020-01-31 13:56:16 2020-02-02 12:50:00 Inpatient ANAHY JARQUIN [facility] [id number] [facility] 2020-01-31 13:56:16 2020-02-02 12:50:00 Hospital Encounter Annamaria Cardenas Yaman [facility] 1.2.840.114 350.1.13.10 4.2.7.2.686 [id number] [facility] 2020-01-31 00:00:00 2020-01-31 00:00:00 Orders Only Doctor Unassigned, [place] [facility] 1.2.840.114 350.1.13.10 4.2.7.2.686 [id number] 2020-01-31 00:00:00 2020-01-31 00:00:00 Orders Only Doctor Unassigned, [place] [facility] 1.2.840.114 350.1.13.10 4.2.7.2.686 [id number] [id number] [facility] Results Test Description Test Time Test Comments Results Resul t Comments Source Critical Care 2024-06-06 2 21:37:00 Ana Castillo MD ? ? 06/17/2024 ?8:55 PMCritical Care Performed by: Ana Castillo [facility] Ana Castillo MD ?Critical care provider [...] another provider in my specialty: no ? [facility] [id number] 21:51:55EXAM: CT ABDOMEN PELVIS WO CONTRAST HISTORY: [...] lesions arepresent.[facility]ON[facility] [id number] 19:40:00* Test Item Value Reference Range Interpretation Comme nts POCT PREG (test code = 1605) Negative On board controls acceptable with C Line (test code = 3574) Yes POCT PREG LOT # (test code = 3575) [id number] POCT PREG TEST DATE ( test code = 3576) 12/09/2024 Lab Interpretation (test cod e = 18592-8) Normal [facility] WITH [id number] 01:32:48* Test Item Value Reference Range Interpretation Comme [facility] WBC (test code = 6690-2) See_Comment H [Automated messa ge] The system which generated this result transmitted reference range: 4.30 - 11.10 10*3/?L. The reference range was not used to interpret this result as normal/abnormal. RBC (test code = 789-8) See_Comment [Automated qualifyora ge] The system which generated this result [...] 34.1 g/dL 31.6-35.1 RDW-SD (test code = 96454-2) 37.4 fL 39.0-49.9 L RDW-CV (test code = 788-0) 12.5 % 12.0-15.5 PLT (test code = 777-3) See_Comment [Automated messa ge] The system which generated this result transmitted reference range: 166 - 358 10*3/?L. The reference range was not used to interpret this result as normal/abnormal. MPV (test code = 69708-6) 10.5 fL 9.5-12.9 NRBC/100 WBC (test code = 4162583122) See_Comment [Automated [employer] ssage] The system which generated this result transmitted reference range: 0.0 - 10.0 /100 WBCs. The reference range was not used to interpret this result as normal/abnormal. NRBC x10^3 (test code = 6129598602) See_Comment [Automated messa ge] The system which generated this result transmitted reference range: 10*3/?L. The reference range was not used to interpret this result as normal/abnormal. GRAN MAT (NEUT) % (test code = 770-8) 55.4 % IMM GRAN % (test code = 5842815946) 0.60 % LYMPH % (test code = 736-9) 36.2 % MONO % (test code = 5905-5) 6.0 % EOS % (test code = 713-8) 1.2 % BASO % (test code = 706-2) 0.6 % GRAN MAT x10^3(ANC) (test code = 3349695279) 7.91 10*3/uL 1.88-7.09 H IMM GRAN x10^3 (test code = 1489218379) 0.08 10*3/uL 0.00-0.06 H LYMPH x10^3 (test code = 731-0) 5.16 10*3/uL 1.32-3.29 H MONO x10^3 (test code = 742-7) 0.86 10*3/uL 0.33-0.92 EOS x10^3 (test code = 711-2) 0.17 10*3/uL 0.03-0.39 BASO x10^3 (test code = 704-7) 0.08 10*3/uL 0.01-0.07 H Lab Interpretation (test code = 76222-0) Abnormal [facility]. METABOLIC PANEL ([id number])2022-09-20 01:13:21* Test Item Value Reference Range Interpretation Comme nts NA (test code = 5809128759) 138 mmol/L 135-145 K (test code = 3273022732) 3.6 mmol/L 3.5-5.0 CL (test code = 7909311827) 104 mmol/L 98-108 CO2 TOTAL (test code = 8214318374) 19 mmol/L 23-31 L AGAP (test code = 9006209327) 2-16 BUN (test code = 3171611545) 12 mg/dL 7-23 GLUCOSE (test code = 0726090748) 131 mg/dL 70-110 H CREATININE (test code = 4152689992) 0.56 mg/dL 0.50-1.04 TOTAL BILI (test code = 2504878993) 0.5 mg/dL 0.1-1.1 CALCIUM (test code = 0908960116) 9.4 mg/dL 8.6-10.6 T PROTEIN (test code = 3725623682) 7.8 g/dL 6.3-8.2 ALBUMIN (test code = 3616967667) 4.8 g/dL 3.5-5.0 ALK PHOS (test code = 2114961198) 67 U/L 34-122 ALTv (test code = 1742-6) 29 U/L 5-35 AST(SGOT) (test code = 9963294782) 32 U/L 13-40 eGFR (test code = 6035779179) mL/min/1.73m2 JESSICA (test code = JESSICA) Association [...] imaging tests). Lab Interpretation (test code = 02299-0) Abnormal [facility] WITH [id number] 03:53:40* Test Item Value Reference Range Interpretation Comme nts WBC (test code = 6690-2) See_Comment H [Automated [employer]] The system which generated this result transmitted reference range: 4.30 - 11.10 10*3/?L. The reference range was not used to interpret this result as normal/abnormal. RBC (test code = 789-8) See_Comment [Automated [employer]] The system which generated this result transmitted [...] 34.0 g/dL 31.6-35.1 RDW-SD (test code = 82554-3) 38.7 fL 39.0-49.9 L RDW-CV (test code = 788-0) 12.6 % 12.0-15.5 PLT (test code = 777-3) See_Comment [Automated [employer]] The system which generated this result transmitted reference range: 166 - 358 10*3/?L. The reference range was not used to interpret this result as normal/abnormal. MPV (test code = 61710-1) 9.2 fL 9.5-12.9 L NRBC/100 WBC (test code = 0927192788) See_Comment [Automated me ssage] The system which generated this result transmitted reference range: 0.0 - 10.0 /100 WBCs. The reference range was not used to interpret this result as normal/abnormal. NRBC x10^3 (test code = 2137235888) See_Comment [Automated messa ge] The system which generated this result transmitted reference range: 10*3/?L. The reference range was not used to interpret this result as normal/abnormal. GRAN MAT (NEUT) % (test code = 770-8) 58.7 % IMM GRAN % (test code = 6028971233) 0.40 % LYMPH % (test code = 736-9) 32.5 % MONO % (test code = 5905-5) 6.4 % EOS % (test code = 713-8) 1.2 % BASO % (test code = 706-2) 0.8 % GRAN MAT x10^3(ANC) (test code = 3996547932) 7.96 10*3/uL 1.88-7.09 H IMM GRAN x10^3 (test code = 3195309149) 0.05 10*3/uL 0.00-0.06 LYMPH x10^3 (test code = 731-0) 4.40 10*3/uL 1.32-3.29 H MONO x10^3 (test code = 742-7) 0.87 10*3/uL 0.33-0.92 EOS x10^3 (test code = 711-2) 0.16 10*3/uL 0.03-0.39 BASO x10^3 (test code = 704-7) 0.11 10*3/uL 0.01-0.07 H REACT LYMPHS (test code = 7969812006) Rare Lab Interpretation (test code = 70070-7) Abnormal [facility]2022-12-24 03:31:28* Test Item Value Reference Range Interpretation Comme nts MAGNESIUM (test code = 5081591133) 1.7 mg/dL 1.7-2.4 Lab Interpretation (test cod e = 98133-0) Normal [facility]. METABOLIC PANEL (37413)2022-08-29 03:31:08* Test Item Value Reference Range Interpretation Comme nts NA (test code = 5483590778) 139 mmol/L 135-145 K (test code = 1127533772) 4.4 mmol/L 3.5-5.0 CL (test code = 5135226983) 109 mmol/L 98-108 H CO2 TOTAL (test code = 4556005515) 20 mmol/L 23-31 L AGAP (test code = 4958571027) 2-16 BUN (test code = 5708077463) 10 mg/dL 7-23 GLUCOSE (test code = 2230537090) 134 mg/dL 70-110 H CREATININE (test code = 7253498336) 0.54 mg/dL 0.50-1.04 TOTAL BILI (test code = 9367205985) 0.3 mg/dL 0.1-1.1 CALCIUM (test code = 6362040048) 9.0 mg/dL 8.6-10.6 T PROTEIN (test code = 8739703262) 7.3 g/dL 6.3-8.2 ALBUMIN (test code = 8801766818) 4.6 g/dL 3.5-5.0 ALK PHOS (test code = 3688303304) 54 U/L 34-122 ALTv (test code = 1742-6) 21 U/L 5-35 AST(SGOT) (test code = 5310515376) 21 U/L 13-40 eGFR (test code = 8787216042) mL/min/1.73m2 JESSICA (test code = JESSICA) Association [...] imaging tests). Lab Interpretation (test code = 09799-1) Abnormal [facility]IP[facility]2022-12-24 03:30:48* Test Item Value Reference Range Interpretation Comme nts LIPASE (test code = 4248572397) 205 U/L 0-220 Lab Interpretation (test cod e = 05762-8) Normal [facility] CampusLactic Acid Whole [id number] 18:41:37* Test Item Value Reference Range Interpretation Comme nts LACTIC ACID (test code = 0186202213) 3.55 mmol/L 0.50-2.20 H Lab Interpretation (test cod e = 62676-4) Abnormal [facility] [place] [facility] CampusPREGNANCY TEST, [id number] 20:37:15* Test Item Value Reference Range Interpretation Comme nts PREG SERUM (test code = 4185147436) Negative JESSICA (test code = JESSICA) Less than 10 IU/L. ?If low titer or ectopic is suspected, resubmit specimen in 48-72 hours. [facility] CampusCOMP. METABOLIC PANEL (43653)2022-08-14 20:27:36* Test Item Value Reference Range Interpretation Comme nts NA (test code = 1737314060) 140 mmol/L 135-145 K (test code = 3857907878) 2.8 mmol/L 3.5-5.0 LL CL (test code = 3492112142) 106 mmol/L 98-108 CO2 TOTAL (test code = 3995607580) 13 mmol/L 23-31 L AGAP (test code = 4092670347) 2-16 H BUN (test code = 7293019372) 7 mg/dL 7-23 GLUCOSE (test code = 9572568250) 181 mg/dL 70-110 H CREATININE (test code = 9227645317) 0.58 mg/dL 0.50-1.04 TOTAL BILI (test code = 0146308828) 0.5 mg/dL 0.1-1.1 CALCIUM (test code = 5068085226) 9.5 mg/dL 8.6-10.6 T PROTEIN (test code = 8754848469) 8.1 g/dL 6.3-8.2 ALBUMIN (test code = 0637256708) 5.1 g/dL 3.5-5.0 H ALK PHOS (test code = 7901325503) 76 U/L 34-122 ALTv (test code = 1742-6) 34 U/L 5-35 AST(SGOT) (test code = 3417371809) 24 U/L 13-40 eGFR (test code = 5513281120) mL/min/1.73m2 JESSICA (test code = JESSICA) Association [...] imaging tests). Lab Interpretation (test code = 31285-9) Abnormal [facility] [place] [facility] CampusACTIVATED PARTIAL THRMPLAS [id number] 20:10:31* Test Item Value Reference Range Interpretation Comme [facility] APTT Patient (test code = 3173-2) See_Comment [Automated message] The system which generated this result transmitted reference range: 23 - 38 Seconds. The reference range was not used to interpret this result as normal/abnormal. JESSICA (test code = JESSICA) The [facility] patient population mean normal value for aPTT is 30 seconds. Lab Interpretation (test code = 36406-0) Normal [facility] CampusPROTHROMBIN TIME / [id number] 20:08:27* Test Item Value Reference Range Interpretation Comme [facility] PROTIME PATIENT (test code = 5964-2) See_Comment [Automated [employer]] The system which generated this result transmitted reference range: 12.0 - 14.7 Seconds. The reference range was not used to interpret this result as normal/abnormal. INR (test code = 6301-6) Normal INR <1.1; Warfarin Therapeutic range 2.0 to 3.0 or 2.5 to 3.5, depending upon the indications. Lab Interpretation (test code = 23233-0) Normal [facility] CampusCBC WITH [id number] 20:00:28* Test Item Value Reference Range Interpretation Comme [facility] WBC (test code = 6690-2) See_Comment H [Automated [employer]] The system which generated this result transmitted reference range: 4.30 - 11.10 10*3/?L. The reference range was not used to interpret this result as normal/abnormal. RBC (test code = 789-8) See_Comment [Automated [employer]] The system which generated this result transmitted [...] 34.4 g/dL 31.6-35.1 RDW-SD (test code = 78867-8) 36.1 fL 39.0-49.9 L RDW-CV (test code = 788-0) 12.2 % 12.0-15.5 PLT (test code = 777-3) See_Comment H [Automated messa ge] The system which generated this result transmitted reference range: 166 - 358 10*3/?L. The reference range was not used to interpret this result as normal/abnormal. MPV (test code = 46455-9) 9.7 fL 9.5-12.9 NRBC/100 WBC (test code = 0212475427) See_Comment [Automated [employer] ssage] The system which generated this result transmitted reference range: 0.0 - 10.0 /100 WBCs. The reference range was not used to interpret this result as normal/abnormal. NRBC x10^3 (test code = 9888731834) See_Comment [Automated messa ge] The system which generated this result transmitted reference range: 10*3/?L. The reference range was not used to interpret this result as normal/abnormal. GRAN MAT (NEUT) % (test code = 770-8) 67.0 % IMM GRAN % (test code = 3036192610) 0.30 % LYMPH % (test code = 736-9) 28.0 % MONO % (test code = 5905-5) 4.1 % EOS % (test code = 713-8) 0.2 % BASO % (test code = 706-2) 0.4 % GRAN MAT x10^3(ANC) (test code = 6159436288) 8.68 10*3/uL 1.88-7.09 H IMM GRAN x10^3 (test code = 8471201152) 0.04 10*3/uL 0.00-0.06 LYMPH x10^3 (test code = 731-0) 3.62 10*3/uL 1.32-3.29 H MONO x10^3 (test code = 742-7) 0.53 10*3/uL 0.33-0.92 EOS x10^3 (test code = 711-2) 0.03 10*3/uL 0.03-0.39 BASO x10^3 (test code = 704-7) 0.05 10*3/uL 0.01-0.07 Lab Interpretation (test code = 86620-7) Abnormal [facility] CampusLactic Acid Whole [id number] 19:58:01* Test Item Value Reference Range Interpretation Comme nts LACTIC ACID (test code = 5864543738) 6.64 mmol/L 0.50-2.20 H Lab Interpretation (test cod e = 98748-4) Abnormal [facility] History and Physical Notes Date/Time Note Provider Source 2024-03-11 20:05:49 [facility] Hospitalist Admission H&P Date of Service: 03/11/2024 [...] N/A 02/21/2021 Surgeon: Marium Dawson MD; Location: [facility] ENDOMETRIAL ABLATION 2019 LAP,CHOLECYSTECTOMY LAPAROSCOPIC ASSISTED VAGINAL HYSTERECTOMY N/A 02/21/2021 Surgeon: Marium Dawson MD; Location: [facility] OR Location SALPINGECTOMY Bilateral 02/21/2021 Surgeon: Marium Dawson MD; Location: [facility] OR Location TUBAL LIGATION ALLERGIES Allergies Allergen [...] Types: Cigarettes Start date: 2000 Quit date: 2011 Years since quittin.5 Passive exposure: Past Smokeless [...] of steroids; continue with tacrolimus and outpt salt maker follow-up. Depression/BPD; resume risperdone, cymbalta Crohn's-on stelara [...] user?: NO Patient will require Observation [place] [employer]TEGR[employer] FEEDER was verified during stay Ronen Bettencourt MD IM-INTERNAL MEDICINE STAFF [facility]
[2024-10-10] MEDS ORDERED: LEVALBUTEROL 1.25 MG/3 ML NEB ONE (13:03)
[2024-10-10] MEDS ORDERED: NA CHLORIDE 0.9% 1,000 ML ONE (13:03)
[2024-10-10] MEDS ORDERED: DIPHENHYDRAMINE 50 MG/ML VIAL ONE (13:03)
[2024-10-10] MEDS ORDERED: FAMOTIDINE 20 MG/2 ML VIAL IV ONE (13:03)
[2024-10-10] MEDS ORDERED: IPRATROPIUM BROM 0.5MG/2.5ML ONE (13:03)
[2024-10-10] MEDS ORDERED: ONDANSETRON 4 MG/2 ML VIAL ONE (13:03)
[2024-10-10 13:34] LABS: Absolute Basophils 0.1 K/uL (0-0.5); Absolute Lymphocytes (CBC) 1.6 K/uL (0.7-4.9); Absolute Monocytes 0.4 K/uL (0.1-1.3); Absolute Neutrophil 10.1 K/uL (1.8-8.0); Basophils % 0.5 % (0-1.3); Eosinophils % 0.2 % (0-4.4); Hemoglobin 11.7 g/dL (12.0-15.0); Lymphocytes % 13.1 % (15.3-44.8); MCH 29.5 pg (27.0-35.0); MCHC 35.4 g/dL (32.0-36.0); MCV 83.2 fL (80-100); MPV 6.9 fL (7.6-11.3); Monocytes % 3.5 % (3.3-12.3); Neutrophils % 82.7 % (41.7-73.7); Platelets 345 thou/uL (152-406); RBC Red Blood Cell Count 3.96 M/uL (3.86-4.86); Red Cell Distribution Width 13.1 % (12.1-15.2)
[2024-10-10 13:57] LABS: ALT/SGPT 21 U/L (13-56); AST/SGOT 15 U/L (15-37); Albumin 3.5 g/dL (3.4-5.0); Albumin/Globulin Ratio 1.1 (1.1-1.8); Alkaline Phosphatase 56 U/L (45-117); Anion Gap 13.4 mEq/L (5.0-15.0); BUN Blood Urea Nitrogen 13 mg/dL (7-18); Bicarbonate 19 mEq/L (21-32); Bilirubin Total 0.6 mg/dL (0.2-1.0); Globulin 3.2 g/dL (2.3-3.5); Glomerular Filtration Rate 98 ml/min (=/>90); Glucose Level 153 mg/dL (74-106); Protein, Total 6.7 g/dL (6.4-8.2); Sodium Level 131 mEq/L (136-145); Troponin High Sensitivity 7.2 pg/mL (<58.9)
[2024-10-10 14:07] LABS: Bilirubin Direct < 0.2 mg/dL (0-0.2); Bilirubin Indirect, Calculated 0.4 mg/dL (0.2-0.8)
[2024-10-10 14:08] LABS: Potassium 2.4 mEq/L (3.5-5.1)
[2024-10-10] MEDS ORDERED: POTASSIUM 25 MEQ EFFERV TAB ONE (14:34)
[2024-10-10] MEDS ORDERED: KCL 20 MEQ/100 mL IVPB 100 ML IV ONE (14:34)
--- NOTE | 2024-10-10 14:39 | RAD REPORT ---
EXAM: Chest Single View HISTORY: DYSPNEA COMPARISON: 09/14/2023 FINDINGS: LUNGS/PLEURA: Increased bronchial wall thickening and mild opacities in the lung bases bilaterally. MEDIASTINUM: The mediastinal silhouette is within normal limits. CARDIAC: The cardiac silhouette is within normal limits. UPPER ABDOMEN: No significant abnormality. BONES: No acute abnormality. LINES/TUBES/OTHER: N/A IMPRESSION: Mild basilar opacities and bronchial wall thickening may reflect a mild bronchopneumonia.
[2024-10-10 16:56] LABS: Anion Gap 13.4 mEq/L (5.0-15.0); Potassium 4.4 mEq/L (3.5-5.1)
--- NOTE | 2024-10-10 17:22 | ER ---
Nurse's Notes [facility] Name: Sowmya Juarez Age: 39 yrs Sex: Female : 1985 Arrival Date: 10/10/2024 Time: 12:47 Bed 5 Private MD: Diagnosis: Mast cell activation syndrome;Anaphylactoid reaction;Hypokalemia Presentation: 10/10 12:52 Chief complaint: EMS states: Hx of mast cell activation syndrome, began having ph difficulty breathing and anaphylactic symptoms today, self administered epi x 2 and 1 breathing treatment, little improvement so called EMS, EMS administered 1 duo-neb, 25 mg Benadryl, 125 mg SoluMedrol, and 0.5 mg Ativan, pt states that symptoms have improved but audible wheezes noted, Spo2 98% RA, HR and BP elevated. Coronavirus screen: Vaccine status: Patient reports being unvaccinated. Ebola Screen: No symptoms or risks identified at this time. Initial Sepsis Screen: Does the patient meet any 2 criteria? No. Patient's initial sepsis screen is negative. Does the patient have a suspected source of infection? No. Patient's initial sepsis screen is negative. Risk Assessment: Do you want to hurt yourself or someone else? Patient reports no desire to harm self or others. Onset of symptoms was October 10, 2024. 12:52 Method Of Arrival: EMS: [facility] 12:52 Acuity: KALYN 2 ph Triage Assessment: 13:11 General: Appears in no apparent distress. uncomfortable, Behavior is cooperative, ph appropriate for age, anxious. Pain: Denies pain. Neuro: Level of Consciousness is awake, alert, obeys commands, Oriented to person, place, time, situation. Cardiovascular: Capillary refill < 3 seconds in bilateral fingers Patient's skin is warm and dry. Rhythm is sinus tachycardia. Respiratory: Airway is patent Respiratory effort is labored, Respiratory pattern is tachypnea Breath sounds with wheezes in mediastinum, right upper lobe and left upper lobe. GI: Reports nausea. Musculoskeletal: Range of motion: intact in all extremities. 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 - Infectious Disease History:: Denies. - Social history:: Smoking status: Patient denies any tobacco usage or history of. - Family history:: not pertinent. Screenin:44 [facility] ED Fall Risk Assessment (Adult) History of falling in the last 3 months, ph including since admission No falls in past 3 months (0 pts) Confusion or Disorientation No (0 pts) Intoxicated or Sedated No (0 pts) Impaired Gait No (0 pts) Mobility Assist Device Used No (0 pt) Altered Elimination No (0 pt) Score/Fall Risk Level 0 - 2 = Low Risk Oriented to surroundings, Maintained a safe environment, Hourly rounding (assess needs \T\ fall precautionary measures) done. Abuse screen: Denies threats or abuse. Denies injuries from another. Nutritional screening: No deficits noted. Tuberculosis screening: No symptoms or risk factors identified. Assessment: 13:12 General: SEE TRIAGE ASSESSMENT. ph 14:47 Reassessment: Patient appears in no apparent distress at this time. Patient and/or ph family updated on plan of care and expected duration. Pain level reassessed. Patient is alert, oriented x 3, equal unlabored respirations, skin warm/dry/pink. Patient states feeling better. Patient states symptoms have improved. 15:00 Reassessment: Patient appears in no apparent distress at this time. Patient and/or jb4 family updated on plan of care and expected duration. Pain level reassessed. Patient is alert, oriented x 3, equal unlabored respirations, skin warm/dry/pink. 16:00 Reassessment: Patient appears in no apparent distress at this time. Patient and/or bp family updated on plan of care and expected duration. Pain level reassessed. Patient is alert, oriented x 3, equal unlabored respirations, skin warm/dry/pink. REPEAT BMP DUE AFTER KCL. Vital Signs: 12:52 BP 146 / 106; Pulse 134; Resp 20; Temp 97.4; Pulse Ox 97% on R/A; Weight 77.11 kg; ph Height 5 ft. 3 in. ; 13:30 BP 141 / 78; Pulse 124; Resp 18; Pulse Ox 99% on Nebulizer Mask; ph 14:27 BP 133 / 70; Pulse 113; Resp 18; Pulse Ox 98% on 2 lpm NC; ph 15:30 BP 130 / 61; Pulse 111; Resp 24; Pulse Ox 94% ; jb4 16:06 BP 130 / 61; Pulse 110; Resp 25; Pulse Ox 94% ; bp 17:51 BP 128 / 82; Pulse 99; Resp 19; Pulse Ox 95% ; bp 12:52 Body Mass Index 30.11 (77.11 kg, 160.02 cm) ph ED Course: 12:49 Patient arrived in ED. ll1 12:51 Casandra Gilbert, RN is Primary Nurse. ph 12:56 Jonel Vega MD is Attending Physician. rt 12:56 Triage completed. ph 13:00 Maintain EMS IV. Dressing intact. Good blood return noted. Site clean \T\ dry. Gauge \T\ bp site: 18 RAC. 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 13:14 Patient has correct armband on for positive identification. Bed in low position. Call ph light in reach. Side rails up X2. Client placed on continuous cardiac and pulse oximetry monitoring. NIBP monitoring applied. decontaminator on. 14:31 XRAY Chest (1 view) In Process Unspecified. EDMS 15:30 Provided Education on: plan of care. jb4 17:50 No provider procedures requiring assistance completed. IV discontinued, intact, bp bleeding controlled, No redness/swelling at site. Pressure dressing applied. Administered Medications: 13:13 Drug: NS 0.9% IV 1000 ml IV at 1 bolus Per protocol; to be given as a bolus over 60 bp minutes Route: IV; Rate: 1 bolus; Site: right wrist; 17:52 Follow up: IV Status: Completed infusion bp 13:13 Drug: Ipratropium Inhalation Aerosol 0.5 mg Inhalation once Route: Inhalation; bp 13:14 Drug: diphenhydrAMINE IVP 25 mg IVP once Route: IVP; Site: right wrist; bp 17:52 Follow up: Response: No adverse reaction bp 13:14 Drug: Famotidine IVP 20 mg IVP once; dilute with 10 mL 0.9% NaCl; give over 2 minutes bp Route: IVP; Site: right wrist; 17:51 Follow up: Response: No adverse reaction bp 13:14 Drug: Levalbuterol Inhalation 1.25 mg Inhalation once Route: Inhalation; bp 14:43 Drug: Potassium Chloride PO 40 mEq PO once Route: PO; ph 17:51 Follow up: Response: No adverse reaction bp 14:43 Drug: Potassium Chloride IV 20 mEq IV at 40 calculated rate once; administer over 4 ph hours Route: IV; Rate: 40 calculated rate; Site: right forearm; 17:51 Follow up: IV Status: Completed infusion bp Medication: 14:44 VIS not applicable for this client. ph Outcome: 17:21 Discharge ordered by . rt 17:50 Discharged to home ambulatory, with family, bp 17:50 Condition: stable 17:50 Discharge instructions given to patient, family, Instructed on discharge instructions, follow up and referral plans. medication usage, Demonstrated understanding of instructions, follow-up care, medications, Prescriptions given X 1, 17:52 Patient left the ED. bp Signatures: Dispatcher [employer] EDMS Casandra Gilbert RN RN ph Vincent Gardner RN RN jb4 Ernesto George RN RN bp Kelli De Los Santos RN RN ll1 Jonel Vega MD MD rt Corrections: (The following items were deleted from the chart) 13:11 12:57 Home Meds: Lamictal Oral; ph ph 16:07 16:00 Reassessment: Patient appears in no apparent distress at this time. Patient bp and/or family updated on plan of care and expected duration. Pain level reassessed. Patient is alert, oriented x 3, equal unlabored respirations, skin warm/dry/pink. jb4
--- NOTE | 2024-10-10 17:22 | EDPHYS ---
Physician Documentation [facility] Name: Sowmya Juarez Age: 39 yrs Sex: Female : 1985 Arrival Date: 10/10/2024 Time: 12:47 Bed 5 Private MD: ED Physician Jonel Vega HPI: 10/10 15:11 This 39 yrs old Female presents to ER via EMS with complaints of Allergic Reaction - rt mast cell activation syndrome. 15:11 Patient with history of mast cell activation syndrome presents to the EDwith reported rt anaphylactoid reaction occurring just prior to arrival. Patient states that she had swelling to her tongue, tightness in the back of her throat wheezing, difficulty breathing. She took 2 EpiPen's prior to arrival, received 125 Solu-Medrol, 25 of Benadryl by EMS as well as an albuterol treatment. Denies other acute complaints at this time, symptoms are moderate in severity, no other aggravating or alleviating factors.. 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 - Infectious Disease History:: Denies. - Social history:: Smoking status: Patient denies any tobacco usage or history of. - Family history:: not pertinent. ROS: 15:11 Constitutional: Negative for fever, chills, and weight loss, Abdomen/GI: Negative for rt abdominal pain, nausea, vomiting, diarrhea, and constipation, MS/Extremity: Negative for injury and deformity, Skin: Negative for injury, rash, and discoloration, Neuro: Negative for headache, weakness, numbness, tingling, and seizure, 15:11 Respiratory: Positive for shortness of breath, wheezing, Exam: 15:11 Head/Face: Normocephalic, atraumatic. Chest/axilla: Normal chest wall appearance and rt motion. Nontender with no deformity. No lesions are appreciated. Cardiovascular: Regular rate and rhythm with a normal S1 and S2. No gallops, murmurs, or rubs. Normal PMI, no JVD. No pulse deficits. Skin: Warm, dry with normal turgor. Normal color with no rashes, no lesions, and no evidence of cellulitis. MS/ Extremity: Pulses equal, no cyanosis. Neurovascular intact. Full, normal range of motion. Neuro: Awake and alert, GCS 15, oriented to person, place, time, and situation. Cranial nerves II-XII grossly intact. Motor strength 5/5 in all extremities. Sensory grossly intact. Cerebellar exam normal. Normal gait. 15:11 Constitutional: The patient appears Appears dyspneic, in acute distress 15:11 ENT: No edema noted to the tongue, lips. 15:11 ECG was reviewed by the Attending Physician. 15:11 Respiratory: Wheezes heard on all lung [place], moderate respiratory distress, Vital Signs: 12:52 BP 146 / 106; Pulse 134; Resp 20; Temp 97.4; Pulse Ox 97% on R/A; Weight 77.11 kg; ph Height 5 ft. 3 in. ; 13:30 BP 141 / 78; Pulse 124; Resp 18; Pulse Ox 99% on Nebulizer Mask; ph 14:27 BP 133 / 70; Pulse 113; Resp 18; Pulse Ox 98% on 2 lpm NC; ph 15:30 BP 130 / 61; Pulse 111; Resp 24; Pulse Ox 94% ; jb4 16:06 BP 130 / 61; Pulse 110; Resp 25; Pulse Ox 94% ; bp 17:51 BP 128 / 82; Pulse 99; Resp 19; Pulse Ox 95% ; bp 12:52 Body Mass Index 30.11 (77.11 kg, 160.02 cm) ph MDM: 12:58 Medical Screening Exam initiated rt 10/10 13:04 Order name: Basic Metabolic Panel; Complete Time: 14:09 rt 10/10 13:04 Order name: CBC with Diff; Complete Time: 14:09 rt 10/10 13:04 Order name: LFT's; Complete Time: 14:09 rt 10/10 13:04 Order name: Troponin HS; Complete Time: 14:09 rt 10/10 14:16 Order name: BMP: draw after iv potassium; Complete Time: 17:15 rt 0204 13:04 Order name: XRAY Chest (1 view); Complete Time: 14:49 rt 02 13:04 Order name: Cardiac monitoring; Complete Time: 13:14 rt 02 13:04 Order name: EKG - Nurse/Tech; Complete Time: 14:40 rt 02 13:04 Order name: IV Saline Lock; Complete Time: 13:14 rt 10/10 13:04 Order name: Labs collected and sent; Complete Time: 13:14 rt 10/10 13:04 Order name: O2 Per Protocol; Complete Time: 13:14 rt 10/10 13:04 Order name: O2 Sat Monitoring; Complete Time: 13:14 rt EC:11 Rate is 111 beats/min. Rhythm is regular, Normal Sinus Rhythm with No ectopy. QRS [place] rt is Normal. ND interval is normal. QRS interval is normal. QT interval is normal. No Q waves. No ST changes noted. Interpreted by me. Administered Medications: 13:13 Drug: NS 0.9% IV 1000 ml IV at 1 bolus Per protocol; to be given as a bolus over 60 bp minutes Route: IV; Rate: 1 bolus; Site: right wrist; 17:52 Follow up: IV Status: Completed infusion bp 13:13 Drug: Ipratropium Inhalation Aerosol 0.5 mg Inhalation once Route: Inhalation; bp 13:14 Drug: diphenhydrAMINE IVP 25 mg IVP once Route: IVP; Site: right wrist; bp 17:52 Follow up: Response: No adverse reaction bp 13:14 Drug: Famotidine IVP 20 mg IVP once; dilute with 10 mL 0.9% NaCl; give over 2 minutes bp Route: IVP; Site: right wrist; 17:51 Follow up: Response: No adverse reaction bp 13:14 Drug: Levalbuterol Inhalation 1.25 mg Inhalation once Route: Inhalation; bp 14:43 Drug: Potassium Chloride PO 40 mEq PO once Route: PO; ph 17:51 Follow up: Response: No adverse reaction bp 14:43 Drug: Potassium Chloride IV 20 mEq IV at 40 calculated rate once; administer over 4 ph hours Route: IV; Rate: 40 calculated rate; Site: right forearm; 17:51 Follow up: IV Status: Completed infusion bp Disposition Summary: 02/04/25 17:21 Discharge Ordered Notes: Location: Home rt Problem: new rt Symptoms: have improved rt Condition: Stable rt Diagnosis - Mast cell activation syndrome rt - Anaphylactoid reaction rt - Hypokalemia rt Followup: rt - With: Private Physician - When: 2 - 3 days - Reason: Discharge Instructions: - Discharge Summary Sheet rt - Anaphylactic Reaction, Adult rt - Hypokalemia rt Forms: - Medication Reconciliation Form rt - Antibiotic Education rt - Prescription Opioid Use rt - Patient Portal Instructions rt - Leadership Thank You Letter rt Prescriptions: - Prednisone 20 mg Oral Tablet - take 2 tablets ORAL route once daily for 5 days; 10 tablet; Refills: 0, Product rt Selection Permitted Signatures: Dispatcher [employer] EDCasandra Cm, RN RN ph Ernesto George, RN RN bp Jonel Vega MD MD rt Corrections: (The following items were deleted from the chart) 13:04 13:04 BASIC METABOLIC PANEL+C.LAB.BRZ ordered. EDMS EDMS 13:04 13:04 CBC+H.LAB.BRZ ordered. EDMS EDMS 13:04 13:04 HEPATIC FUNCTION+C.LAB.BRZ ordered. EDMS EDMS 13:04 13:04 Troponin High Sensitivity+C.LAB.BRZ ordered. EDMS EDMS 13:05 13:04 Chest Single View+RAD.RAD.BRZ ordered. EDMS EDMS 13:11 12:57 Home Meds: Lamictal Oral; ph ph
[2024-10-10 18:35] VITALS: TEMP 97.4
[2024-10-10 18:48] VITALS: BP 128/82; O2SAT 95
--- NOTE | 2024-10-11 11:30 | EKG ---
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
== END 2024-10-10 17:52 | disposition home or self-care (01) ==
LOC: ER 12:47
DX: D89.40 Mast cell activation, unspecified (principal); T78.2XXA Anaphylactic shock, unspecified, initial encounter; E87.6 Hypokalemia; I10 Essential (primary) hypertension; F31.9 Bipolar disorder, unspecified
CPT/HCPCS: 85025; 80048 ×2; 36415; 80076; 84484; 71045; J3480; J1200; J7614; J7644; J2405; J7030; 93005

== ENCOUNTER 2024-12-12 16:01 | Emergency (ER) | payer OTHER ==
--- OUTSIDE RECORDS SUMMARY | 2024-12-12 16:10 | XMS REPORT | Continuity of Care Document ---
Author Name Unknown Address [address] [facility] [place] [address] [facility] Address [address] [facility] [place] [address] Care Team Providers Care Regrinder Name Role Phone ManuelSarmadKarma C Primary Care Physician [phone] MARIUM DAWSON Attending Clinician Unavailable RAFIQ ANN Attending Clinician Unavailable RAFIQ ANN Attending Clinician Unavailable CATRACHITA MERCADO Attending Clinician Jane Coffman CPhT Attending Clinician UnavailHÉCTOR Ramos Attending Clinician Unavailable HÉCTOR SHAHID Attending Clinician Unavailable Bryan [facility], Radha Attending Clinician Unavailable Rafiq Ann MD Attending Clinician [phone] Lab, Ang - Db Attending Clinician Unavailable Catrachita Mercado MD Attending Clinician +- [phone] Santy BURKETT PhD, [place] Attending Clinician + Vtc-Lab Attending Clinician Unavailable Prado [facility], Melissa Chelsey Attending Clinician UnavailRosio Hull MD Attending Clinician [phone] Unknown, Attending Attending Clinician UnavailROSIO Hull Attending Clinician Unavailable Faraz Taveras Attending Clinician UnavailAndrew Lubin MD Attending Clinician [phone] ANA CASTILLO Attending Clinician UnavailAna Kaplan MD Attending Clinician [phone] Darcie [facility], Alysa Attending Clinician Unavail able Lester [facility], Jocelyn L Attending Clinician Unavail able Bryan [facility], Radha Attending Clinician Unavailable Marley Tello RN Attending Clinician Unavailable MATILDE DIEGO Attending Clinician Unavailable Amanda Power DO Attending Clinician [phone] Matilde Diego MD Attending Clinician [phone] Doctor Unassigned, [place] Attending Clinician U Catrachita Camejo MD Attending Clinician + [phone] [facility] Attending Clinician Unavailable DEBORAH WINSLOW Attending Clinician Unavailab Deborah Fregoso DO Attending Clinician [phone] [email or web address]_Kadiyalmaciej_S Attending Clinician Unavaila PAIGE Staton Attending Clinician Unavailable Paige Tate Attending Clinician +[phone] Unknown, Attending Attending Clinician Unavailab AMANDA Qiu Attending Clinician Unavailable Amanda Mckeon MD Attending Clinician [phone] RACHNA BUSH Attending Clinician Unavailable Rachna Bush MD Attending Clinician [phone] MORGAN VARGAS Attending Clinician Unavailable Morgan Vargas DO Attending Clinician [phone] MENG GALICIA Attending Clinician Unavailab Meng Barragan MD Attending Clinician + [phone] AMANDA POWER Attending Clinician Unavailab carmen [place], [facility] Int Med Allergy Attending Clinician U Lorene Prieto MD Attending Clinician [phone] LORENE ROMAN Attending Clinician UnaELIEZER Montaño Attending Clinician Unavailable Frandy Levy MD Attending Clinician +[phone] Eliezer Reese DO Attending Clinician [phone] Genaro Eubanks MD Attending Clinician [phone] Christopher [facility], Danyel Attending Clinician Unavailable Rosio Martinez MD Attending Clinician [phone] Cristofer HENRY Attending Clinician Unavailable Cristofer Pradhan Attending Clinician [phone] Pob, Adc Lab Main Attending Clinician Unavailabl gene Jones [facility], [place] Attending Clinician Unavaila elder Dawson MD, Marium Attending Clinician [phone] Nell GUTIERRES, Alanna Oconnor Attending Clinician Unavail able Marium Damon Attending Clinician + [phone] BA WYLIE Attending Clinician Unavailabl gene Cotter [employer], Ismael Velasco Attending Clinician [phone] Gwyn BURKETT, Ba Decker Attending Clinician + [phone] Joao GUTIERRES, Dedra Ponce Attending Clinician Unavailab le Only, Ang Db Test Attending Clinician Unavailabl gene OBRIEN, Bobbi Attending Clinician [phone] BOBBI HELLER Attending Clinician Unavailable Antonio BURKETT, Audrey Attending Clinician Unavaila elder Lucero MD, Ashwin Saenz Attending Clinician +[phone] Ernesto Tesfaye CRNA Attending Clinician [phone] Jaciel Ortiz MD, Mati Attending Clinician [phone] Only, Adc Test Attending Clinician Unavailable SHRUTHI COLLADO Attending Clinician Unavail able Miko Araujo DO Attending Clinician +- [phone] , [facility] Surg Spec Procedure Attending Clinician Unavailable Provider, [facility] Attending Clinician Un available , Adc Echo Room 1 - Attending Clinician Tyrel Macario MD, Deborah Attending Clinician [phone] Anahy Owen MD Attending Clinician [phone] Tiana Smith MD Attending Clinician + [phone] TIANA SMITH Attending Clinician Unavailab carmen Cardenas [employer], Annamaria Attending Clinician + [phone] ANAHY OWEN Attending Clinician Unavailable MARIUM DAWSON Admitting Clinician Unavailable MATILDE DIEGO Admitting Clinician Unavailable Matilde Diego MD Admitting Clinician [phone] DEBORAH WINSLOW Admitting Clinician Unavailab le GC_GCBZW_Kadiyala_S Admitting Clinician Unavaila MORGAN Sawant Admitting Clinician Unavailable AMANDA POWER Admitting Clinician Unavailab ELIEZER Randall Admitting Clinician Unavailable Eliezer Reese DO Admitting Clinician [phone] Cristofer HENRY Admitting Clinician Unavailable Marium Dawson MD Admitting Clinician Anahy Owen MD Admitting Clinician Tiana Smith MD Admitting Clinician [phone] TIANA SMITH Admitting Clinician Unavailab ANAHY Lowe Admitting Clinician Unavailable Payers Payer Name Policy Type Policy Number Effective Date Expirati on Date Source MEDICARE PART A \\T\\ B [id number] 2014 00:00:00 [place] [id number] 2014 00:00:00 Problems Condition Name Condition Details Condition Category Status Onset Date Resolution Date Last Treatment Date Treating Clinician Comments Source Chronic idiopathic urticaria Chronic idiopathic urticaria Disease Active 2022-09 00:00: 00 [facility] Chronic seasonal allergic rhinitis due to pollen Chronic seasonal allergic rhinitis due to pollen Disease Active 2022-09 00:00: 00 [facility] Chronic rhinitis Chronic rhinitis Disease Active 2022-09 00:00: 00 [facility] Allergic conjunctiv itis of both eyes Allergic conjunctiv itis of both eyes Disease Active 2022-09 00:00: 00 [facility] Anaphylaxi s, subsequent encounter Anaphylaxi s, subsequent encounter Disease Active 2021-09 00:00: 00 [facility] 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 2021-09 00:00: 00 [facility] Angioedema , initial encounter Angioedema , initial encounter Disease Active 10-15 00:00: 00 [facility] Allergic reaction, initial encounter Allergic reaction, initial encounter Disease Active 02-28 00:00: 00 [facility] Post-opera tive state Post-opera tive state Disease Active 02-28 00:00: 00 [facility] S/P laparoscop ic assisted vaginal hysterecto my (LAVH) S/P laparoscop ic assisted vaginal hysterecto my (LAVH) Disease Active -19 00:00: 00 [facility] Crohn disease Crohn disease Disease Active 05-11 00:00: 00 [facility] Obesity (BMI 30-39.9) Obesity (BMI 30-39.9) Disease Active 05-11 00:00: 00 [facility] Bipolar I disorder, most recent episode depressed Bipolar I disorder, most recent episode depressed Disease Active 03-16 00:00: 00 Overview: Formattin g of this note might be different from the original. ICD10 Diagnosis Term Record Center Specialist Utility [facility] Pelvic pain Pelvic pain Disease Resolve d 6-18 00:00: 00 2021-07-11 00:00:00 2021-07-11 18:15:54 [facility] Abnormal uterine bleeding (AUB) Abnormal uterine bleeding (AUB) Disease Resolve d 5-19 00:00: 00 2021-07-11 00:00:00 2021-07-11 18:15:53 [facility] Undifferen tiated abdominal pain Undifferen tiated abdominal pain Disease Resolve d 2019-09 0-17 00:00: 00 2021-02-28 00:00:00 2021-02-28 16:17:34 [facility] Intractabl e nausea and vomiting Intractabl e nausea and vomiting Disease Resolve d 6-20 00:00: 00 2021-02-28 00:00:00 2021-02-28 16:17:30 [facility] Fever and chills Fever and chills Disease Resolve d 5-27 00:00: 00 2021-02-28 00:00:00 2021-02-28 16:17:32 [facility] Allergies, Adverse Reactions, Alerts Allergy Name Allergy Type Status Severity Reaction(s) Onset Date Inactive Date Treating Clinician Comments Source Prochlor perazine Propensi ty to adverse reaction s Active Anaphylaxis 02-26 00:00: 00 [facility] PROCHLOR PERAZINE DRUG INGREDI Active Anaphylaxis 02-26 00:00: 00 [facility] Prochlor perazine Edisylat e Propensi ty to adverse reaction s Active Anaphylaxis 03-15 00:00: 00 [facility] PROCHLOR PERAZINE EDISYLAT E DRUG INGREDI Active Anaphylaxis 03-15 00:00: 00 [facility] Social History Social Habit Start Date Stop Date Quantity Comments Source History of tobacco use Passive smoker [facility] History SDOH Alcohol Frequency [facility] History SDOH Alcohol Std Drinks [facility] History SDOH Alcohol Binge [facility] Alcoholic beverage intake 2024-11-07 00:00:00 2024-11-07 00:00:00 Current drinker of alcohol (finding) [facility] Cigarettes smoked current (pack per day) - Reported 2024-09-04 00:00:00 2024-09-04 00:00:00 [facility] Cigarette pack-years 2024-09-04 00:00:00 2024-09-04 00:00:00 [facility] Tobacco use and exposure 2024-09-04 00:00:00 2024-09-04 00:00:00 Smokeless tobacco non-user [facility] Alcohol intake 2023-12-10 00:00:00 2023-12-10 00:00:00 Current drinker of alcohol (finding) [facility] Exposure to SARS-CoV-2 (event) 2022-12-23 00:00:00 2023-01-02 09:43:00 Not sure [facility] History of Social function 2021-02-21 00:00:00 2021-02-21 00:00:00 [facility] Alcohol Comment 2018-05-11 00:00:00 2018-05-11 00:00:00 Occasional [facility] Sex assigned at 1985 00:00:00 1985 00:00:00 [facility] Smoking Status Start Date Stop Date Source Ex-smoker 2024-09-04 00:00:2024-09-04 00:00:00 [facility] Medications Ordered Medication Name Filled Medication Name Start Date Stop Date Current Medication? Ordering Clinician Indication Dosage Frequency Signature (SIG) Comments Components Source amoxicillin 500 mg capsule 11-23 00:00: 00 Yes [id number] 500mg Take 1 capsule by mouth in the morning and 1 capsule at noon and 1 capsule in the evening. [facility] ondansetron 4 mg disintegrat ing tablet 11-23 00:00: 00 Yes [id number] 4mg Take 1 tablet by mouth every 4 (four) hours as needed for Nausea and Vomiting (N/V). [facility] HYDROcodone -acetaminop hen 5-325 mg tablet 11-23 00:00: 00 12-01 04:59 :00 Yes [id number] 1{tbl} Take 1-2 tablets by mouth every 6 (six) hours as needed for Pain (scale 4-6) for up to 7 days. Indication s: acute pain [facility] TACROLIMUS 1 mg capsule 11-21 00:00: 00 Yes [id number] TAKE 2 CAPSULES BY MOUTH EVERY 12 HOURS [facility] FLUTICASONE PROPIONATE 50 mcg/actuati on nasal spray 11-21 00:00: 00 Yes [id number] SHAKE LIQUID AND USE 2 SPRAYS IN EACH NOSTRIL IN THE MORNING [facility] methotrexat e 2.5 mg tablet 11-07 00:00: 00 Yes [id number] 20mg Take 8 tablets by mouth weekly [facility] methotrexat e 2.5 mg tablet 10-30 00:00: 00 11-07 00:00 :00 No [id number] 15mg Take 6 tablets by mouth weekly [facility] famotidine 40 mg tablet 10-13 00:00: 00 Yes [id number] 40mg Take 1 tablet by mouth in the morning and 1 tablet in the evening. [facility] EPINEPHrine (NEFFY) 2 mg/spray (0.1 mL) [place] 10-13 00:00: 00 Yes [id number] 1{spray } Use 1 Pierce in each nostril as needed (for anaphylaxi s). [facility] foLIC acid 1 mg tablet 10-04 00:00: 00 Yes [id number] 1mg Take 1 tablet by mouth in the morning. [facility] methylPREDN ISolone 4 mg tablets 10-04 00:00: 00 Yes [id number] Take by mouth SEE-INSTRU CTIONS. follow package directions [facility] methotrexat e 2.5 mg tablet 10-04 00:00: 00 10-28 00:00 :00 No [id number] 15mg Take 6 tablets by mouth weekly [facility] meloxicam 7.5 mg tablet 09-20 00:00: 00 Yes 7.5mg Take 1 tablet by mouth in the morning. [facility] cefTRIAXone (ROCEPHIN) injection 1,000 mg 2023-09 17:15: 09-04 16:48 :00 No [id number] 1000mg 1,000 mg, Intramuscu lar, ONCE, 1 dose, On Wed09/04/24 at 1115, SHEEBA, Reason for Anti-Infec tive: Documented Infection, Documented Infection Site: HEENT, Duration of Therapy: Once (ED) [facility] clindamycin 300 mg capsule 2023-09 00:00: 00 09-15 05:59 :00 No [id number] 300mg Take 1 capsule by mouth 4 (four) times daily for 10 days. [facility] omalizumab (XOLAIR) 150 mg/mL injection 2023-09 00:00: 00 Yes [id number] 300mg inject 2 Syringes under the skin every 2 (two) weeks. [facility] tacrolimus 1 mg capsule 2023-09 00:00: 00 Yes [id number] 2mg Take 2 capsules by mouth every 12 (twelve) hours. [facility] predniSONE 20 mg tablet 2023-09 00:00: 00 Yes [id number] 60mg Take 3 tablets by mouth every morning. [facility] azelastine 137 mcg (0.1 %) nasal spray 2023-09 00:00: 00 Yes [id number] 1{spray } Use 1 Pierce in each nostril 2 (two) times daily as needed for Runny nose. Use in each nostril as directed [facility] fluticasone propionate 50 mcg/actuati on nasal spray 2023-09 00:00: 00 Yes [id number] 2{spray } Use 2 Sprays in each nostril in the morning. [facility] NaCl 0.9% (NS) bolus infusion 1,000 mL 2023-09 012 23:00: 00 06-18 01:22 :00 No 1000mL at 999 mL/hr, 1,000 mL, IV Infusion, ONCE, 1 dose, On 06/17/24 at 1800, SHEEBA [facility] predniSONE 20 mg tablet 2023-09 00:00: 00 07-14 00:00 :00 No [id number] 60mg Take 3 tablets by mouth every morning. [facility] tacrolimus 1 mg capsule 04-14 00:00: 00 07-14 00:00 :00 No [id number] 2mg Take 2 capsules by mouth every 12 (twelve) hours. [facility] diphenhydrA MINE (BENADRYL) injection 25 mg 03-12 16:15: 00 03-12 15:37 :00 No 25mg 25 mg, Intravenou s, ONCE, 1 dose, On 03/12/24 at 1115, Routine [facility] montelukast (SINGULAIR) tablet 10 mg 03-12 14:00: 00 Yes 10mg 10 mg, Oral, DAILY, First dose on 03/12/24 at 0900, Until Discontinu ed, Routine [facility] DULoxetine (CYMBALTA) capsule 30 mg 03-12 14:00: 00 Yes 30mg 30 mg, Oral, DAILY, First dose on 03/12/24 at 0900, Until Discontinu ed, Routine [facility] allopurinoL (ZYLOPRIM) tablet 300 mg 03-12 14:00: 00 Yes 300mg 300 mg, Oral, DAILY, First dose on 03/12/24 at 0900, Until Discontinu ed, Routine [facility] cetirizine (ZYRTEC) tablet 10 mg 03-12 14:00: 00 Yes 10mg 10 mg, Oral, DAILY, First dose on Wed03/12/24 at 0900, Until Discontinu ed, Routine [facility] famotidine (PEPCID (PF)) injection 20 mg 03-12 13:00: 00 Yes 20mg 20 mg, Slow IV Push, Q12H, First dose on Wed03/12/24 at 0800, Until Discontinu ed, Routine [facility] HYDROcodone -acetaminop hen (NORCO 5) 5-325 mg tablet 1 tablet 03-12 07:17: 01 Yes 1{tbl} 1 tablet, Oral, Q6HPRN, Starting on Wed03/12/24 at 0217, Until Discontinu ed, Routine, breakthrou gh pain [facility] acetaminoph en (TYLENOL) tablet 650 mg 03-12 07:16: 09 Yes 650mg 650 mg, Oral, Q6HPRN, Starting on Wed03/12/24 at 0216, Until Discontinu ed, Routine, Pain (scale 1-3), Temp > 38 C [facility] NaCl 0.9% (NS) IV infusion 1,000 mL 03-12 06:15: 00 Yes 1000mL at 100 mL/hr, IV Infusion, CONTINUOUS , Starting on Wed03/12/24 at 0115, Until Discontinu ed, Routine [facility] potassium chloride in water 10 mEq/100 mL RTU 10 mEq 03-12 06:00: 00 03-12 08:05 :00 No 10meq 10 mEq, IV Piggyback, Q1H, 2 doses, First dose on 03/12/24 at 0100, Last dose on Wed03/12/24 at 0200, Administer over 60 Minutes, 100 mL [facility] methylPREDN ISolone sod succ (SOLU-MEDRO L (PF)) injection 40 mg 03-12 05:00: 00 03-13 16:59 :00 No 40mg 40 mg, Intravenou s, Q6H, 6 doses, First dose (after last modificati on) on 03/12/24 at 0000, Last dose on 03/13/24 at 0600, 1 mL [facility] atorvastati n (LIPITOR) tablet 20 mg 03-12 02:00: 00 Yes 20mg 20 mg, Oral, QHS, First dose on 03/11/24 at 2100, Until Discontinu ed, Routine [facility] tacrolimus (PROGRAF) capsule 1 mg 03-12 01:00: 00 Yes 1mg 1 mg, Oral, Q12H, First dose on 03/11/24 at 2000, Until Discontinu ed, Routine, 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 [facility] ondansetron (ZOFRAN (PF)) injection 4 mg 03-11 23:04: 32 Yes 4mg 4 mg, Slow IV Push, Q6HPRN, Starting on 03/11/24 at 1804, Until Discontinu ed, Routine, Nausea and Vomiting (N/V) [facility] acetaminoph en (TYLENOL) tablet 650 mg 03-11 23:04: 21 03-12 07:17 :42 No 650mg 650 mg, Oral, Q6HPRN, Starting on 03/11/24 at 1804, Until 03/12/24 at 0217, Routine, Pain (scale 1-3), Temp > 38 C [facility] racEPINEPHr ine (S2 RACEMIC) 2.25 % nebulizer solution 0.5 mL 03-11 22:00: 00 03-11 21:07 :00 No .5mL 0.5 mL, Inhalation , ONCE, 1 dose, On 03/11/24 at 1700, SHEEBA [facility] famotidine (PEPCID (PF)) injection 20 mg 03-11 21:15: 00 03-11 21:15 :00 No 20mg 20 mg, Slow IV Push, ONCE, 1 dose, On 03/11/24 at 1615, SHEEBA [facility] tacrolimus 1 mg capsule 01-27 00:00: 00 04-14 00:00 :00 No [id number] 1mg Take 1 capsule by mouth every 12 (twelve) hours. [facility] EPINEPHrine (EPIPEN) 0.3 mg/0.3 mL injection 12-09 00:00: 00 Yes [id number] .3mg 0.3 mL by Intramuscu lar route as needed (anaphylax is). [facility] montelukast 10 mg tablet 12-09 00:00: 00 Yes [id number] 10mg Take 1 tablet by mouth in the morning. [facility] famotidine (PEPCID) 20 mg tablet 12-09 00:00: 00 10-13 00:00 :00 No [id number] 20mg Take 1 tablet by mouth in the morning and 1 tablet in the evening. [facility] ketotifen 1 MG capsule 12-09 00:00: 00 03-11 00:00 :00 No [id number] 2mg Take 2 capsules by mouth in the morning and 2 capsules in the evening. [facility] tacrolimus 1 mg capsule 12-09 00:00: 00 01-25 00:00 :00 No [id number] 1mg Take 1 capsule by mouth every 12 (twelve) hours. [facility] predniSONE (DELTASONE) tablet 60 mg 2022-09 22:45: 00 2023- 12-30 23:06 :00 No 60mg 60 mg, Oral, ONCE, 1 dose, [facility] 09[facility]04/23 [facility] 1645[facility] en[facility]AMINE :lidocaine 2 % viscous 1:1:1 ([facility]) oral suspension 15 mL 2022-09 22:30: 00 09-04 23:06 :00 No 15mL 15 mL, Oral, ONCE, 1 dose, On 09/04/23 at 1630, Routine [facility] ketorolac (TORADOL) injection 15 mg 2022-09 20:45: 00 09-04 19:42 :00 No 15mg 15 mg, Slow IV Push, ONCE, 1 dose, On 09/04/23 at 1445, [facility] dicyclomine (BENTYL) tablet 20 mg 2022-09 20:30: 00 09-04 20:40 :00 No 20mg 20 mg, Oral, ONCE, 1 dose, On 09/04/23 at 1430, [facility] NaCl 0.9% (NS) bolus infusion 500 mL 2022-09 19:45: 00 09-04 23:06 :00 No 500mL at 999 mL/hr, 500 mL, IV Infusion, ONCE, 1 dose, On 09/04/23 at 1345, STAT [facility] ondansetron (ZOFRAN (PF)) injection 4 mg 2022-09 19:45: 00 09-04 19:42 :00 No 4mg 4 mg, Slow IV Push, ONCE, 1 dose, On 09/04/23 at 1345, [facility] predniSONE 20 mg tablet 2022-09 00:00: 00 12-29 00:00 :00 No [id number] Take 3 pills every morning by mouth, until gone [facility] omalizumab (XOLAIR) 150 mg/mL injection 2022-09 006 00:00: 00 07-12 00:00 :00 No [id number] 300mg inject 2 Syringes under the skin every 2 (two) weeks. [facility] azelastine 137 mcg (0.1 %) nasal spray 2022-09 00:00: 03-11 00:00 :00 No [id number] 1{spray } Use 1 Pierce in each nostril in the morning and 1 Pierce in the evening. Use in each nostril as directed [facility] olopatadine 0.1 % ophthalmic solution 2022-09 00:00: 00 03-11 00:00 :00 No [id number] 1[drp] Place 1 Drop in both eyes 2 (two) times daily as needed for Allergies (itchy eyes symptoms with allergies) . [facility] cromolyn 100 mg/5 mL solution 2022-09 00:00: 00 12-29 00:00 :00 No [id number] 200mg Take 10 mL by mouth 4 (four) times daily. [facility] predniSONE 20 mg tablet 2022-09 00:00: 09-04 00:00 :00 No [id number] Take 3 tablets PO with Pepcid and Benadryl in case of an Allergic Reaction [facility] ketotifen 1 MG capsule 02-04 00:00: 00 Yes [id number] 2mg Take 2 capsules by mouth in the morning and 2 capsules in the evening. [facility] EPINEPHrine (EPIPEN) 0.3 mg/0.3 mL injection 02-04 00:00: 00 12-09 00:00 :00 No [id number] .3mg 0.3 mL by Intramuscu lar route as needed (anaphylax is). [facility] famotidine (PEPCID) 20 mg tablet 02-04 00:00: 00 12-09 00:00 :00 No [id number] 20mg Take 1 tablet by mouth in the morning and 1 tablet in the evening. [facility] montelukast 10 mg tablet 02-04 00:00: 00 12-09 00:00 :00 No [id number] 10mg Take 1 tablet by mouth in the morning. [facility] ketotifen 1 MG capsule 02-04 00:00: 00 12-09 00:00 :00 No [id number] 2mg Take 2 capsules by mouth in the morning and 2 capsules in the evening. [facility] predniSONE 20 mg tablet 02-04 00:00: 00 06-11 00:00 :00 No Take 3 tablets PO with Pepcid and Benadryl in case of an Allergic Reaction [facility] dexamethaso ne (DECADRON) injection 10 mg 01-02 14:54: 00 01-02 14:56 :00 No [id number] 10mg [facility] methylPREDN ISolone (MEDROL, EHSAN,) 4 mg tablets 01-02 00:00: 00 02-04 00:00 :00 No [id number] follow package directions [facility] benzonatate 200 mg capsule 01-02 00:00: 00 01-13 04:59 :00 No [id number] 200mg Take 1 capsule by mouth 3 (three) times daily as needed for Cough for up to 10 days. [facility] doxycycline hyclate 100 mg tablet 01-02 00:00: 00 01-10 04:59 :00 No [id number] 100mg Take 1 tablet by mouth in the morning and 1 tablet in the evening. Do all this for 7 days. [facility] codeine-gua ifenesin 10-100 mg/5 mL oral solution 01-02 00:00: 00 01-08 04:59 :00 No 10mL Take 10 mL by mouth every 6 (six) hours as needed for Cough for up to 5 days. Indication s: cough [facility] risperiDONE 3 mg tablet 12-28 00:00: 00 03-11 00:00 :00 No 3mg Take 1 tablet by mouth at bedtime. [facility] DULoxetine 30 mg capsule 12-23 00:00: 00 Yes [facility] famotidine (PEPCID (PF)) injection 20 mg 12-07 18:15: 00 12-07 17:23 :00 No 20mg 20 mg, Slow IV Push, ONCE NOW, 1 dose, On Wed12/07/22 at 1315, SHEEBA [facility] racEPINEPHr ine (S2 RACEMIC) 2.25 % nebulizer solution 0.5 mL 12-07 17:15: 00 12-07 17:16 :00 No .5mL 0.5 mL, Inhalation , ONCE, 1 dose, On Wed12/07/22 at 1215, STAT [facility] diphenhydrA MINE (BENADRYL) injection 50 mg 12-07 17:15: 00 12-07 17:12 :00 No 50mg 50 mg, Slow IV Push, ONCE, 1 dose, On Wed12/07/22 at 1215, STAT [facility] dexamethaso ne sod phos PF injection 10 mg 12-07 17:15: 00 12-07 17:12 :00 No 10mg 10 mg, Slow IV Push, ONCE, 1 dose, On Wed12/07/22 at 1215, 1 mL [facility] diphenhydrA MINE (BENADRYL) 25 mg capsule 12-07 00:00: 00 Yes [id number] Take 2 tablets PO with Prednisone and Pepcid in case of an Allergic Reaction [facility] albuterol 90 mcg/actuati on inhaler 12-07 00:00: 00 Yes [id number] 2{puff} Inhale 2 Puffs every 4 (four) hours as needed for Wheezing, Shortness of Breath or Bronchospa sm (Allergic Reaction). [facility] famotidine (PEPCID) 20 mg tablet 12-07 00:00: 00 02-04 00:00 :00 No [id number] Take 2 tablets PO in case of Allergic Reaction [facility] predniSONE 20 mg tablet 12-07 00:00: 00 02-04 00:00 :00 No [id number] Take 3 tablets PO with Pepcid and Benadryl in case of an Allergic Reaction [facility] indomethaci n 50 mg capsule 11-30 00:00: 00 03-12 00:00 :00 No TAKE 1 CAPSULE (50 MG) BY ORAL ROUTE 1 TIME PER DAY WITH FOOD NEEDED FOR HAND PAIN [facility] allopurinoL 300 mg tablet 11-11 00:00: 00 Yes 300mg Take 1 tablet by mouth in the morning. [facility] doxycycline hyclate 100 mg capsule 11-05 00:00: 00 06-11 00:00 :00 No [id number] 100mg Take 1 capsule by mouth every 12 (twelve) hours. [facility] levalbutero l (XOPENEX) nebulizer solution 1.25 mg 09-27 14:00: 00 Yes 1.25mg 1.25 mg, Inhalation , TID, First dose on Wed09/27/22 at 0800, Until Discontinu ed, Routine [facility] ipratropium -albuteroL (DUONEB) 0.5 mg-3 mg(2.5 mg base)/3 mL nebulizer solution 3 mL 09-27 14:00: 00 Yes 3mL 3 mL, Inhalation , QID, First dose on Wed09/27/22 at 0800, Until Discontinu ed, Routine [facility] methylpredn isolone sod succ (SOLU-MEDRO L) injection 125 mg 09-27 12:00: 00 Yes 125mg 125 mg, Intravenou s, Q6H, First dose on Wed09/27/22 at 0600, Until Discontinu ed, Routine [facility] LORazepam (ATIVAN) injection 1 mg 09-27 07:30: 00 09-27 07:20 :00 No 1mg 1 mg, Slow IV Push, ONCE, 1 dose, On Wed09/27/22 at 0130, STAT [facility] racEPINEPHr ine (S2 RACEMIC) 2.25 % nebulizer solution 0.5 mL 09-27 07:00: 00 09-27 07:04 :00 No .5mL 0.5 mL, Inhalation , ONCE, 1 dose, On 09/27/22 at 0100, [facility] famotidine (PEPCID (PF)) injection 20 mg 09-27 07:00: 00 09-27 07:05 :00 No 20mg 20 mg, Slow IV Push, ONCE, 1 dose, On 09/27/22 at 0100, [facility] diphenhydrA MINE (BENADRYL) injection 50 mg 09-27 07:00: 00 09-27 07:05 :00 No 50mg 50 mg, Slow IV Push, ONCE, 1 dose, On 09/27/22 at 0100, [facility] NaCl 0.9% (NS) bolus infusion 1,000 mL 09-20 01:15: 00 09-20 03:05 :00 No 1000mL at 999 mL/hr, 1,000 mL, IV Infusion, ONCE, 1 dose, On 09/19/22 at 1915, [facility] ondansetron (ZOFRAN (PF)) injection 4 mg 09-20 00:30: 00 09-20 00:36 :00 No 4mg 4 mg, Slow IV Push, ONCE, 1 dose, On 09/19/22 at 1830, [facility] famotidine (PEPCID (PF)) injection 20 mg 09-20 00:30: 00 09-20 00:36 :00 No 20mg 20 mg, Slow IV Push, ONCE, 1 dose, On 09/19/22 at 1830, [facility] ipratropium -albuteroL (DUONEB) 0.5 mg-3 mg(2.5 mg base)/3 mL nebulizer solution 3 mL 09-20 00:28: 00 09-20 00:36 :00 No 3mL 3 mL, Inhalation , ONCE, 1 dose, On 09/19/22 at 1830, SHEEBA [facility] methylPREDN ISolone 4 mg tablets -14 00:00: 00 02-04 00:00 :00 No [id number] Take by mouth SEE-INSTRU CTIONS. follow package directions [facility] omalizumab (XOLAIR) injection 150 mg -09 22:15: 00 09-15 10:14 :00 No [id number] 150mg [facility] omalizumab (XOLAIR) injection 09-11 00:00: 00 06-11 00:00 :00 No [id number] 300mg inject 2 Syringes under the skin every 2 (two) weeks. [facility] montelukast 10 mg tablet 09-11 00:00: 00 02-04 00:00 :00 No [id number] 10mg Take 1 tablet by mouth in the morning. [facility] EPINEPHrine (EPIPEN) 0.3 mg/0.3 mL injection 09-11 00:00: 00 02-04 00:00 :00 No [id number] .3mg 0.3 mL by Intramuscu lar route as needed (anaphylax is). [facility] ketorolac (TORADOL) injection 30 mg 2021-09 04:45: 00 08-29 03:54 :00 No 30mg 30 mg, Slow IV Push, ONCE, 1 dose, On Wed08/28/22 at 2245, Routine [facility] iopamidol (ISOVUE 370-500 mL) injection 75 mL 2021-09 04:15: 00 08-29 03:18 :00 No [id number] 75mL 75 mL, Intravenou s, ONCE, 1 dose, On Wed08/28/22 at 2215, Routine [facility] dexamethaso ne sod phos PF injection 10 mg 2021-09 04:00: 00 08-29 03:54 :00 No 10mg 10 mg, Slow IV Push, ONCE, 1 dose, On Wed08/28/22 at 2200, 1 mL [facility] FENTanyl PF (SUBLIMAZE (PF)) injection 50 mcg 2021-09 03:45: 00 08-29 03:06 :00 No 50ug 50 mcg, Slow IV Push, ONCE, 1 dose, On Wed08/28/22 at 2145, Routine [facility] NaCl 0.9% (NS) bolus infusion 1,000 mL 2021-09 03:45: 00 08-29 04:31 :00 No 1000mL at 999 mL/hr, 1,000 mL, IV Infusion, ONCE, 1 dose, On Wed08/28/22 at 2145, SHEEBA [facility] ondansetron (ZOFRAN (PF)) injection 4 mg 2021-09 03:00: 00 08-29 03:06 :00 No 4mg 4 mg, Slow IV Push, ONCE, 1 dose, On Wed08/28/22 at 2100, SHEEBA [facility] predniSONE 10 mg tablet 2021-09 00:00: 00 02-04 00:00 :00 No [id number] Take 3 tablets by mouth daily for 5 days then take 2 tablets by mouth daily for 5 days then take 1 tablet by mouth daily for 5 days then take 0.5 tablets by mouth daily for 4 days then stop. [facility] omalizumab (XOLAIR) injection 150 mg 2021-09 17:45: 00 08-17 16:53 :00 No [id number] 150mg [facility] diphenhydrA MINE (BENADRYL) injection 50 mg 2021-09 17:55: 54 Yes 50mg 50 mg, Intravenou s, Q6HPRN, Starting on 08/15/22 at 1155, Until Discontinu ed, Routine, Itching, rash [facility] dicyclomine (BENTYL) 10 mg capsule 2021-09 17:15: 49 Yes 10mg Take 1 capsule by mouth 4 (four) times daily as needed for Abdominal pain. [facility] diphenhydrA MINE (BENADRYL) injection 50 mg 2021-09 16:45: 00 08-15 16:00 :00 No 50mg 50 mg, Intravenou s, ONCE, 1 dose, On 08/15/22 at 1045, Routine [facility] montelukast (SINGULAIR) tablet 10 mg 2021-09 15:00: 00 Yes 10mg 10 mg, Oral, DAILY, First dose on 08/15/22 at 0900, Until Discontinu ed, Routine [facility] lamoTRIgine (LAMICTAL) tablet 200 mg 2021-09 15:00: 00 Yes 200mg 200 mg, Oral, DAILY, First dose on 08/15/22 at 0900, Until Discontinu ed, Routine [facility] fluticasone propionate 50 mcg/actuati on nasal spray 1 Pierce 2021-09 15:00: 00 Yes 1{spray } 1 Pierce, Nasal, DAILY, First dose on 08/15/22 at 0900, Until Discontinu ed, Routine [facility] atorvastati n (LIPITOR) tablet 20 mg 2021-09 03:00: 00 Yes 20mg 20 mg, Oral, QHS, First dose on Wed08/14/22 at 2100, Until Discontinu ed, Routine [facility] methylPREDN ISolone sod succ (SOLU-MEDRO L (PF)) injection 40 mg 2021-09 02:00: 00 Yes 40mg 40 mg, Intravenou s, Q12H, First dose on Wed08/14/22 at 2000, Until Discontinu ed, 1 mL [facility] famotidine (PEPCID AC) tablet 20 mg 2021-09 02:00: 00 Yes 20mg 20 mg, Oral, BID, First dose on Wed08/14/22 at 2000, Until Discontinu ed, Routine [facility] cetirizine (ZYRTEC) tablet 10 mg 2021-09 02:00: 00 Yes 10mg 10 mg, Oral, BID, First dose on Wed08/14/22 at 2000, Until Discontinu ed, Routine [facility] hydralAZINE (APRESOLINE ) injection 10 mg 2021-09 01:01: 30 Yes 10mg 10 mg, Slow IV Push, Q4HPRN, Starting on Wed08/14/22 at 1901, Until Discontinu ed, Routine, DBP=>100; SBP=>160, For SBP > 160 [facility] ALPRAZolam (XANAX) tablet 0.25 mg 2021-09 00:47: 21 Yes .25mg 0.25 mg, Oral, TIDPRN, Starting on Wed08/14/22 at 1847, Until Discontinu ed, Routine, anxiety [facility] ondansetron (ZOFRAN) 4 mg/5 mL solution 4 mg 2021-09 00:47: 10 Yes 4mg 4 mg, Oral, Q6HPRN, Starting on Wed08/14/22 at 1847, Until Discontinu ed, Routine, Nausea and Vomiting (N/V) [facility] dicyclomine (BENTYL) capsule 10 mg 2021-09 00:00: 32 Yes 10mg 10 mg, Oral, QIDPRN, Starting on Wed08/14/22 at 1800, Until Discontinu ed, Routine, Abdominal pain [facility] cyclobenzap rine (FLEXERIL) tablet 10 mg 2021-09 00:00: 26 Yes 10mg 10 mg, Oral, QHSPRN, Starting on Wed08/14/22 at 1800, Until Discontinu ed, Routine, Muscle Spasms [facility] albuterol (VENTOLIN) inhaler 2 Puff 2021-09 00:00: 03 Yes 2{puff} 2 Puff, Inhalation , Q6HPRN, Starting on Wed08/14/22 at 1800, Until Discontinu ed, Routine, Wheezing, Shortness of Breath [facility] predniSONE 20 mg tablet 2021-09 00:00: 00 08-19 05:59 :00 No [id number] 40mg Take 2 tablets by mouth in the morning for 3 days. [facility] enoxaparin (LOVENOX) injection 40 mg 2021-09 23:00: 00 Yes 40mg 40 mg, Subcutaneo us, DAILY, First dose on Wed08/14/22 at 1700, Until Discontinu ed, Routine [facility] KCL 20 mEq/15 mL solution 40 mEq 2021-09 22:00: 00 08-14 21:08 :00 No 40meq 40 mEq, Oral, ONCE, 1 dose, On Wed08/14/22 at 1600, Routine [facility] NaCl 0.9% (NS) IV infusion 1,000 mL 2021-09 20:30: 00 08-14 20:02 :00 No 1000mL at 999 mL/hr, Intravenou s, ONCE, 1 dose, On Wed08/14/22 at 1430, SHEEBA [facility] racEPINEPHr ine (S2 RACEMIC) 2.25 % nebulizer solution 0.5 mL 2021-09 19:30: 00 08-14 19:32 :00 No .5mL 0.5 mL, Inhalation , ONCE, 1 dose, On Wed08/14/22 at 1330, STAT [facility] famotidine (PEPCID (PF)) injection 20 mg 2021-09 19:21: 00 08-14 19:22 :00 No 20mg 20 mg, Slow IV Push, ONCE, 1 dose, On Wed08/14/22 at 1330, SHEEBA [facility] omalizumab (XOLAIR) injection 2021-09 00:00: 00 09-11 00:00 :00 No 450mg inject 3 Syringes under the skin every 4 (four) weeks. [facility] EPINEPHrine 0.3 mg/0.3 mL injection 2021-09 00:00: 00 08-15 05:59 :00 No [id number] .3mg 0.3 mL by Intramuscu lar route once now for 1 dose. [facility] omalizumab (XOLAIR) injection 150 mg 2021-09 19:00: 00 07-22 18:05 :00 No [id number] 150mg [facility] predniSONE (DELTASONE) tablet 40 mg 2021-09 16:45: 00 06-28 16:49 :00 No 40mg 40 mg, Oral, ONCE, 1 dose, On 06/28/22 at 1145, Routine [facility] montelukast (SINGULAIR) tablet 10 mg 2021-09 14:00: 00 Yes 10mg 10 mg, Oral, DAILY, First dose on 06/28/22 at 0900, Until Discontinu ed, Routine [facility] lamoTRIgine (LAMICTAL) tablet 200 mg 2021-09 14:00: 00 Yes 200mg 200 mg, Oral, QAM, First dose on 06/28/22 at 0900, Until Discontinu ed, Routine [facility] fluticasone propionate 50 mcg/actuati on nasal spray 1 Pierce 2021-09 14:00: 00 Yes 1{spray } 1 Pierce, Nasal, DAILY, First dose on 06/28/22 at 0900, Until Discontinu ed, Routine [facility] atorvastati n (LIPITOR) tablet 20 mg 2021-09 14:00: 00 Yes 20mg 20 mg, Oral, DAILY, First dose on 06/28/22 at 0900, Until Discontinu ed, Routine [facility] enoxaparin (LOVENOX) injection 40 mg 2021-09 14:00: 00 Yes 40mg 40 mg, Subcutaneo us, DAILY, First dose on 06/28/22 at 0900, Until Discontinu ed, Routine [facility] dicyclomine (BENTYL) 10 mg capsule 2021-09 13:32: 28 Yes 10mg Take 10 mg by mouth 4 (four) times daily as needed for Abdominal pain. [facility] famotidine (PEPCID AC) tablet 20 mg 2021-09 13:00: 00 Yes 20mg 20 mg, Oral, BID, First dose on 06/28/22 at 0800, Until Discontinu ed, Routine [facility] acetaminoph en (TYLENOL) tablet 650 mg 2021-09 12:31: 12 Yes 650mg 650 mg, Oral, Q6HPRN, Starting on 06/28/22 at 0731, Until Discontinu ed, Routine, Pain (scale 1-3) [facility] NaCl 0.9% (NS) IV infusion 1,000 mL 2021-09 05:30: 00 Yes 1000mL at 125 mL/hr, IV Infusion, CONTINUOUS , Starting on 06/28/22 at 0030, Until Discontinu ed, Routine [facility] ondansetron (ZOFRAN (PF)) injection 4 mg 2021-09 03:07: 06 Yes 4mg 4 mg, Slow IV Push, Q6HPRN, Starting on 06/27/22 at 2207, Until Discontinu ed, Routine, Nausea and Vomiting (N/V) [facility] NaCl 0.9% (NS) IV infusion 1,000 mL 2021-09 03:00: 00 06-28 11:00 :00 No 1000mL at 125 mL/hr, IV Infusion, ONCE, 1 dose, On 06/27/22 at 2200, Routine [facility] KCL (KLOR-CON M20) tablet 40 mEq 2021-09 03:00: 00 06-28 02:33 :00 No 40meq 40 mEq, Oral, ONCE, 1 dose, On 06/27/22 at 2200, Routine [facility] hydrOXYzine (ATARAX) tablet 25 mg 2021-09 01:43: 10 Yes 25mg 25 mg, Oral, Q8HPRN, Starting on 06/27/22 at 204, Until Discontinu ed, Itching [facility] dicyclomine (BENTYL) capsule 10 mg 2021-09 01:42: 46 Yes 10mg 10 mg, Oral, QIDPRN, Starting on 06/27/22 at 2041, Until Discontinu ed, Routine, Abdominal pain [facility] cyclobenzap rine (FLEXERIL) tablet 10 mg 2021-09 01:42: 33 Yes 10mg 10 mg, Oral, QHSPRN, Starting on 06/27/22 at 2042, Until Discontinu ed, Routine, Muscle Spasms [facility] predniSONE 20 mg tablet 2021-09 00:00: 00 07-02 04:59 :00 No [id number] 40mg Take 2 tablets by mouth in the morning for 3 days. [facility] EPINEPHrine 0.3 mg/0.3 mL injection 2021-09 00:00: 00 06-29 04:59 :00 No [id number] .3mg 0.3 mL by Intramuscu lar route once now for 1 dose. [facility] loratadine (CLARITIN) tablet 10 mg 2021-09 23:00: 00 Yes 10mg 10 mg, Oral, DAILY, First dose on 06/27/22 at 1800, Until Discontinu ed, Routine [facility] methylpredn isolone sod succ (SOLU-MEDRO L) injection 60 mg 2021-09 23:00: 00 06-28 15:45 :52 No 60mg 60 mg, Intravenou s, Q6H, 4 doses, First dose on 06/27/22 at 1800, Last dose on 06/28/22 at 1200, 2 mL [facility] NaCl 0.9% (NS) bolus infusion 1,000 mL 2021-09 20:30: 00 06-27 22:00 :00 No 1000mL at 999 mL/hr, 1,000 mL, IV Piggyback, ONCE, 1 dose, On 06/27/22 at 1530, STAT [facility] proMETHazin e (PHENERGAN) 25 mg in NaCl 0.9% (NS) 50 mL IV piggyback 2021-09 20:00: 00 06-27 19:58 :00 No 25mg 25 mg, IV Piggyback, ONCE, 1 dose, On 06/27/22 at 1500, SHEEBA [facility] famotidine (PEPCID (PF)) injection 20 mg 2021-09 19:00: 00 06-27 19:17 :00 No 20mg 20 mg, Slow IV Push, ONCE, 1 dose, On 06/27/22 at 1400, SHEEBA [facility] racEPINEPHr ine (S2 RACEMIC) 2.25 % nebulizer solution 0.5 mL 2021-09 19:00: 00 06-27 18:51 :00 No .5mL 0.5 mL, Inhalation , ONCE, 1 dose, On 06/27/22 at 1400, STAT [facility] omalizumab (XOLAIR) injection 150 mg 2021-09 18:00: 00 06-25 17:06 :00 No [id number] 150mg [facility] omalizumab (XOLAIR) injection 150 mg 05-28 17:45: 00 05-28 17:10 :00 No [id number] 150mg [facility] omalizumab (XOLAIR) injection 150 mg 04-30 17:30: 00 04-30 16:42 :00 No [id number] 150mg [facility] famotidine (PEPCID) 20 mg tablet 8 00:00: 00 02-04 00:00 :00 No [id number] 20mg Take 1 tablet by mouth in the morning and 1 tablet in the evening. [facility] montelukast 10 mg tablet 8 00:00: 00 09-11 00:00 :00 No [id number] 10mg Take 1 tablet by mouth in the morning. [facility] cetirizine 10 mg tablet 7-28 00:00: 00 09-30 05:59 :00 No [id number] 10mg Take 1 tablet by mouth in the morning and 1 tablet in the evening. Do all this for 180 days. [facility] omalizumab (XOLAIR) injection 5-06 00:00: 00 08-14 00:00 :00 No 450mg inject 3 Syringes under the skin every 4 (four) weeks. [facility] famotidine (PEPCID) 20 mg tablet 01-09 00:00: 00 04-30 00:00 :00 No [id number] 20mg Take 1 tablet by mouth 2 (two) times daily. [facility] montelukast 10 mg tablet 01-09 00:00: 00 04-30 00:00 :00 No [id number] 10mg Take 1 tablet by mouth daily. [facility] ondansetron 4 mg disintegrat ing tablet -19 00:00: 00 03-12 00:00 :00 No [id number] 4mg Take 1 tablet by mouth every 8 (eight) hours as needed for Nausea and Vomiting (N/V). [facility] dicyclomine (BENTYL) 10 mg capsule 2 14:50: 58 Yes 10mg Take 10 mg by mouth 4 (four) times daily as needed for Abdominal pain. [facility] fluticasone propionate 50 mcg/actuati on nasal spray 09-27 00:00: 00 03-11 00:00 :00 No [id number] 1{spray } Use 1 Pierce in each nostril daily. [facility] azelastine 137 mcg (0.1 %) nasal spray 09-27 00:00: 00 06-11 00:00 :00 No [id number] 1{spray } Use 1 Pierce in each nostril 2 (two) times daily. Use in each nostril as directed [facility] EPINEPHrine 0.3 mg/0.3 mL injection 1- 00:00: 00 06-28 00:00 :00 No [facility] risperiDONE (RISPERDAL) 3 mg tablet 2020-09-16 14:07: 54 07-22 00:00 :00 No 3mg Take 3 mg by mouth at bedtime. [facility] atorvastati n 20 mg tablet 03-29 00:00: 00 Yes TAKE 1 TABLET BY MOUTH EVERY DAY DIRECTED [facility] albuterol 90 mcg/actuati on inhaler 02-28 00:00: 00 03-11 00:00 :00 No [id number] 2{puff} Inhale 2 Puffs every 6 (six) hours as needed for Wheezing or Shortness of Breath. [facility] famotidine (PEPCID) 40 mg tablet 02-26 00:00: 00 10-16 00:00 :00 No [id number] 40mg Take 1 tablet by mouth daily. [facility] predniSONE 20 mg tablet 02-26 00:00: 00 03-18 00:00 :00 No [id number] TAKE ONE TABLET BY MOUTH DAILY [facility] lithium carbonate 300 mg capsule 02-26 00:00: 00 03-18 00:00 :00 No [facility] docusate 100 mg capsule 02-22 00:00: 00 11-14 00:00 :00 No [id number] 100mg Take 1 capsule by mouth 2 (two) times daily as needed for Constipati on. [facility] cyclobenzap rine 10 mg tablet - 00:00: 00 07-14 00:00 :00 No 10mg Take 10 mg by mouth at bedtime as needed for Muscle Spasms. [facility] meloxicam 15 mg tablet 01-09 00:00: 00 07-22 00:00 :00 No 15mg Take 15 mg by mouth daily. [facility] cetirizine 10 mg tablet 4-09 00:00: 00 04-11 00:00 :00 No 10mg Take 10 mg by mouth every morning. [facility] ondansetron 4 mg disintegrat ing tablet 1-23 00:00: 00 03-12 00:00 :00 No [id number] 4mg Take 1 tablet by mouth every 8 (eight) hours as needed for Nausea and Vomiting (N/V). [facility] acetaminoph en 500 mg tablet 2019-09 2- 00:00: 00 06-27 00:00 :00 No 500mg Take 500 mg by mouth. [facility] traZODone 100 mg tablet 2019-09- 00:00: 00 06-28 00:00 :00 No 100mg Take 100 mg by mouth at bedtime as needed for Insomnia. [facility] pantoprazol e 40 mg EC tablet 2019-09 00:00: 00 11-14 00:00 :00 No 40mg Take 40 mg by mouth daily. [facility] SUMAtriptan 25 mg tablet 2019-09 00:00: 00 Yes PLEASE SEE ATTACHED FOR DETAILED DIRECTIONS [facility] lamoTRIgine 100 mg tablet 2019-09 0 00:00: 00 03-11 00:00 :00 No 200mg Take 2 tablets by mouth every morning. [facility] topiramate 50 mg tablet 2019-09 0 00:00: 00 07-22 00:00 :00 No TAKE 1 TABLET (50 MG) BY ORAL ROUTE 1 TIMES PER DAY [facility] VENTOLIN HFA 90 mcg/actuati on inhaler 06-04 00:00: 00 03-11 00:00 :00 No INHALE ONE (1) PUFF(S) BY MOUTH EVERY FOUR HOURS. [facility] fluticasone propionate 50 mcg/actuati on nasal spray 06-04 00:00: 00 10-16 00:00 :00 No INSTILL ONE (1) SPRAY(S) INTO EACH NOSTRIL TWICE A DAY. [facility] proMETHazin e 25 mg tablet 02-26 00:00: 00 03-12 00:00 :00 No [id number] 25mg Take 1 tablet by mouth every 6 (six) hours as needed for Nausea and Vomiting (N/V). [facility] hydrOXYzine 25 mg capsule 2018-09 00:00: 00 03-11 00:00 :00 No 25mg Take 1 capsule by mouth 3 (three) times daily as needed for Itching. [facility] lisinopril 20 mg tablet 2018-09 2 00:00: 00 07-22 00:00 :00 No [facility] STELARA 45 mg/0.5 mL SC injection 2018-09 00:00: 00 Yes INJECT 45MG (1 SYRINGE) SUBCUTANEO USLY EVERY 8 WEEKS. [facility] Immunizations Ordered Immunization Name Filled Immunization Name Date Status Comments Source Influenza Virus Vaccine Quad .5 mL IM 6+ MO 2020-06-23 00:00:00 Completed [facility] Influenza Virus Vaccine Quad .5 mL IM 6+ MO 2020-06-23 00:00:00 Completed [facility] Influenza Virus Vaccine Quad .5 mL IM 6+ MO 2020-06-23 00:00:00 Completed [facility] Influenza Virus Vaccine Quad .5 mL IM 6+ MO 2020-06-23 00:00:00 Completed [facility] Influenza Virus Vaccine Quad .5 mL IM 6+ MO 2020-06-23 00:00:00 Completed [facility] Influenza Virus Vaccine Quad .5 mL IM 6+ MO 2020-06-23 00:00:00 Completed [facility] Influenza Virus Vaccine Quad .5 mL IM 6+ MO 2020-06-23 00:00:00 Completed [facility] Influenza Virus Vaccine Quad .5 mL IM 6+ MO 2020-06-23 00:00:00 Completed [facility] Influenza Virus Vaccine Quad .5 mL IM 6+ MO 2020-06-23 00:00:00 Completed [facility] Influenza Virus Vaccine Quad .5 mL IM 6+ MO 2020-06-23 00:00:00 Completed [facility] Influenza Virus Vaccine Quad .5 mL IM 6+ MO 2020-06-23 00:00:00 Completed [facility] Influenza Virus Vaccine Quad .5 mL IM 6+ MO 2020-06-23 00:00:00 Completed [facility] Influenza Virus Vaccine Quad .5 mL IM 6+ MO 2020-06-23 00:00:00 Completed [facility] Influenza Virus Vaccine Quad .5 mL IM 6+ MO 2020-06-23 00:00:00 Completed [facility] Influenza Virus Vaccine Quad .5 mL IM 6+ MO 2020-06-23 00:00:00 Completed [facility] Influenza Virus Vaccine Quad .5 mL IM 6+ MO 2020-06-23 00:00:00 Completed [facility] Influenza Virus Vaccine Quad .5 mL IM 6+ MO 2020-06-23 00:00:00 Completed [facility] Influenza Virus Vaccine Quad .5 mL IM 6+ MO 2020-06-23 00:00:00 Completed [facility] Influenza Virus Vaccine Quad .5 mL IM 6+ MO 2020-06-23 00:00:00 Completed [facility] Influenza Virus Vaccine Quad .5 mL IM 6+ MO 2020-06-23 00:00:00 Completed [facility] Influenza Virus Vaccine Quad .5 mL IM 6+ MO 2020-06-23 00:00:00 Completed [facility] Influenza Virus Vaccine Quad .5 mL IM 6+ MO 2020-06-23 00:00:00 Completed [facility] Influenza Virus Vaccine Quad .5 mL IM 6+ MO 2020-06-23 00:00:00 Completed [facility] Influenza Virus Vaccine Quad .5 mL IM 6+ MO 2020-06-23 00:00:00 Completed [facility] Influenza Virus Vaccine Quad .5 mL IM 6+ MO 2020-06-23 00:00:00 Completed [facility] Influenza Virus Vaccine Quad .5 mL IM 6+ MO 2020-06-23 00:00:00 Completed [facility] Influenza Virus Vaccine Quad .5 mL IM 6+ MO 2020-06-23 00:00:00 Completed [facility] Influenza Virus Vaccine Quad .5 mL IM 6+ MO 2020-06-23 00:00:00 Completed [facility] Influenza Virus Vaccine Quad .5 mL IM 6+ MO 2020-06-23 00:00:00 Completed [facility] Influenza Virus Vaccine Quad .5 mL IM 6+ MO 2020-06-23 00:00:00 Completed [facility] Influenza Virus Vaccine Quad .5 mL IM 6+ MO 2020-06-23 00:00:00 Completed [facility] Influenza Virus Vaccine Quad .5 mL IM 6+ MO 2020-06-23 00:00:00 Completed [facility] Influenza Virus Vaccine Quad .5 mL IM 6+ MO 2020-06-23 00:00:00 Completed [facility] Influenza Virus Vaccine Quad .5 mL IM 6+ MO (FLUZONE/FLULAVAL/F LUARIX) 2020-06-23 00:00:00 Completed [facility] Influenza Virus Vaccine Quad .5 mL IM 6+ MO (FLUZONE/FLULAVAL/F LUARIX) 2020-06-23 00:00:00 Completed [facility] Influenza Virus Vaccine 2019-08-06 00:00:00 Completed [facility] Influenza Virus Vaccine 2019-08-06 00:00:00 Completed [facility] Influenza Virus Vaccine 2019-08-06 00:00:00 Completed [facility] Influenza Virus Vaccine 2019-08-06 00:00:00 Completed [facility] Influenza Virus Vaccine 2019-08-06 00:00:00 Completed [facility] Influenza Virus Vaccine 2019-08-06 00:00:00 Completed [facility] Influenza Virus Vaccine 2019-08-06 00:00:00 Completed [facility] Influenza Virus Vaccine 2019-08-06 00:00:00 Completed [facility] Influenza Virus Vaccine 2019-08-06 00:00:00 Completed [facility] Influenza Virus Vaccine 2019-08-06 00:00:00 Completed [facility] Influenza Virus Vaccine 2019-08-06 00:00:00 Completed [facility] Influenza Virus Vaccine 2019-08-06 00:00:00 Completed [facility] Influenza Virus Vaccine 2019-08-06 00:00:00 Completed [facility] Influenza Virus Vaccine 2019-08-06 00:00:00 Completed [facility] Influenza Virus Vaccine 2019-08-06 00:00:00 Completed [facility] Influenza Virus Vaccine 2019-08-06 00:00:00 Completed [facility] Influenza Virus Vaccine 2019-08-06 00:00:00 Completed [facility] Influenza Virus Vaccine 2019-08-06 00:00:00 Completed [facility] Influenza Virus Vaccine 2019-08-06 00:00:00 Completed [facility] Influenza Virus Vaccine 2019-08-06 00:00:00 Completed [facility] Influenza Virus Vaccine 2019-08-06 00:00:00 Completed [facility] Influenza Virus Vaccine 2019-08-06 00:00:00 Completed [facility] Influenza Virus Vaccine 2019-08-06 00:00:00 Completed [facility] Influenza Virus Vaccine 2019-08-06 00:00:00 Completed [facility] Influenza Virus Vaccine 2019-08-06 00:00:00 Completed [facility] Influenza Virus Vaccine 2019-08-06 00:00:00 Completed [facility] Influenza Virus Vaccine 2019-08-06 00:00:00 Completed [facility] Influenza Virus Vaccine 2019-08-06 00:00:00 Completed [facility] Influenza Virus Vaccine 2019-08-06 00:00:00 Completed [facility] Influenza Virus Vaccine 2019-08-06 00:00:00 Completed [facility] Influenza Virus Vaccine 2019-08-06 00:00:00 Completed [facility] Influenza Virus Vaccine 2019-08-06 00:00:00 Completed [facility] Influenza Virus Vaccine 2019-08-06 00:00:00 Completed [facility] Influenza Virus Vaccine 2019-08-06 00:00:00 Completed [facility] Influenza Virus Vaccine 2019-08-06 00:00:00 Completed [facility] Influenza Virus Vaccine Unknown Completed [facility] Influenza Virus Vaccine Quad .5 mL IM 6+ MO (FLUZONE/FLULAVAL/F LUARIX) Unknown Completed [facility] Influenza Virus Vaccine Unknown Completed [facility] Influenza Virus Vaccine Quad .5 mL IM 6+ MO (FLUZONE/FLULAVAL/F LUARIX) Unknown Completed [facility] Influenza Virus Vaccine Unknown Completed [facility] Influenza Virus Vaccine Quad .5 mL IM 6+ MO (FLUZONE/FLULAVAL/F LUARIX) Unknown Completed [facility] Influenza Virus Vaccine Unknown Completed [facility] Influenza Virus Vaccine Quad .5 mL IM 6+ MO (FLUZONE/FLULAVAL/F LUARIX) Unknown Completed [facility] Influenza Virus Vaccine Unknown Completed [facility] Influenza Virus Vaccine Quad .5 mL IM 6+ MO (FLUZONE/FLULAVAL/F LUARIX) Unknown Completed [facility] Influenza Virus Vaccine Unknown Completed [facility] Influenza Virus Vaccine Quad .5 mL IM 6+ MO (FLUZONE/FLULAVAL/F LUARIX) Unknown Completed [facility] Influenza Virus Vaccine Unknown Completed [facility] Influenza Virus Vaccine Quad .5 mL IM 6+ MO (FLUZONE/FLULAVAL/F LUARIX) Unknown Completed [facility] Influenza Virus Vaccine Unknown Completed [facility] Influenza Virus Vaccine Quad .5 mL IM 6+ MO (FLUZONE/FLULAVAL/F LUARIX) Unknown Completed [facility] Influenza Virus Vaccine Unknown Completed [facility] Influenza Virus Vaccine Quad .5 mL IM 6+ MO (FLUZONE/FLULAVAL/F LUARIX) Unknown Completed [facility] Influenza Virus Vaccine Unknown Completed [facility] Influenza Virus Vaccine Quad .5 mL IM 6+ MO (FLUZONE/FLULAVAL/F LUARIX) Unknown Completed [facility] Influenza Virus Vaccine Unknown Completed [facility] Influenza Virus Vaccine Quad .5 mL IM 6+ MO (FLUZONE/FLULAVAL/F LUARIX) Unknown Completed [facility] Influenza Virus Vaccine Unknown Completed [facility] Influenza Virus Vaccine Quad .5 mL IM 6+ MO (FLUZONE/FLULAVAL/F LUARIX) Unknown Completed [facility] Influenza Virus Vaccine Unknown Completed [facility] Influenza Virus Vaccine Quad .5 mL IM 6+ MO (FLUZONE/FLULAVAL/F LUARIX) Unknown Completed [facility] Influenza Virus Vaccine Unknown Completed [facility] Influenza Virus Vaccine Quad .5 mL IM 6+ MO (FLUZONE/FLULAVAL/F LUARIX) Unknown Completed [facility] Influenza Virus Vaccine Unknown Completed [facility] Influenza Virus Vaccine Quad .5 mL IM 6+ MO (FLUZONE/FLULAVAL/F LUARIX) Unknown Completed [facility] Influenza Virus Vaccine Unknown Completed [facility] Influenza Virus Vaccine Quad .5 mL IM 6+ MO (FLUZONE/FLULAVAL/F LUARIX) Unknown Completed [facility] Influenza Virus Vaccine Unknown Completed [facility] Influenza Virus Vaccine Quad .5 mL IM 6+ MO (FLUZONE/FLULAVAL/F LUARIX) Unknown Completed [facility] Influenza Virus Vaccine Unknown Completed [facility] Influenza Virus Vaccine Quad .5 mL IM 6+ MO (FLUZONE/FLULAVAL/F LUARIX) Unknown Completed [facility] Influenza Virus Vaccine Unknown Completed [facility] Influenza Virus Vaccine Quad .5 mL IM 6+ MO (FLUZONE/FLULAVAL/F LUARIX) Unknown Completed [facility] Influenza Virus Vaccine Unknown Completed [facility] Influenza Virus Vaccine Quad .5 mL IM 6+ MO (FLUZONE/FLULAVAL/F LUARIX) Unknown Completed [facility] Influenza Virus Vaccine Unknown Completed [facility] Influenza Virus Vaccine Quad .5 mL IM 6+ MO (FLUZONE/FLULAVAL/F LUARIX) Unknown Completed [facility] Influenza Virus Vaccine Unknown Completed [facility] Influenza Virus Vaccine Quad .5 mL IM 6+ MO (FLUZONE/FLULAVAL/F LUARIX) Unknown Completed [facility] Influenza Virus Vaccine Unknown Completed [facility] Influenza Virus Vaccine Quad .5 mL IM 6+ MO (FLUZONE/FLULAVAL/F LUARIX) Unknown Completed [facility] Influenza Virus Vaccine Unknown Completed [facility] Influenza Virus Vaccine Quad .5 mL IM 6+ MO (FLUZONE/FLULAVAL/F LUARIX) Unknown Completed [facility] Vital Signs Vital Name Observation Time Observation Value Comments S ource Systolic blood pressure 2024-11-07 14:23:00 136 mm[Hg] [facility] Diastolic blood pressure 2024-11-07 14:23:00 87 mm[Hg] [facility] Heart rate 2024-11-07 14:22:00 75 /min [facility] Body height 2024-11-07 14:22:00 160 cm [facility] Body weight 2024-11-07 14:22:00 81.874 kg [facility] BMI 2024-11-07 14:22:00 31.97 kg/m2 [facility] Oxygen saturation in Arterial blood by Pulse oximetry 2024-11-07 14:22:00 99 /min [facility] Systolic blood pressure 2024-10-13 16:16:00 135 mm[Hg] [facility] Diastolic blood pressure 2024-10-13 16:16:00 93 mm[Hg] [facility] Heart rate 2024-10-13 16:14:00 84 /min [facility] 2024-10-13 16:14:00 160 [facility] 2024-10-13 16:14:00 78.2 kg [facility] BMI 2024-10-13 16:14:00 30.54 kg/m2 [facility] Oxygen saturation in Arterial blood by Pulse oximetry 2024-10-13 16:14:00 100 /min [facility] Systolic blood pressure 2024-10-04 19:49:00 145 mm[Hg] [facility] Diastolic blood pressure 2024-10-04 19:49:00 96 mm[Hg] [facility] Heart rate 2024-10-04 19:49:00 86 /min [facility] Respiratory rate 2024-10-04 19:49:00 17 /min [facility] Body height 2024-10-04 19:49:00 160 cm [facility] Body weight 2024-10-04 19:49:00 79.379 kg [facility] BMI 2024-10-04 19:49:00 31.00 kg/m2 [facility] Oxygen saturation in Arterial blood by Pulse oximetry 2024-10-04 19:49:00 99 /min [facility] Systolic blood pressure 2024-09-04 15:59:00 140 mm[Hg] [facility] Diastolic blood pressure 2024-09-04 15:59:00 95 mm[Hg] [facility] Heart rate 2024-09-04 15:59:00 91 /min [facility] Body temperature 2024-09-04 15:59:00 36.89 Lashawn [facility] Respiratory rate 2024-09-04 15:59:00 19 /min [facility] Body height 2024-09-04 15:59:00 160 cm [facility] Body weight 2024-09-04 15:59:00 76.658 kg [facility] BMI 2024-09-04 15:59:00 29.94 kg/m2 [facility] Oxygen saturation in Arterial blood by Pulse oximetry 2024-09-04 15:59:00 98 /min [facility] Systolic blood pressure 2024-07-14 15:40:00 154 mm[Hg] [facility] Diastolic blood pressure 2024-07-14 15:40:00 73 mm[Hg] [facility] Heart rate 2024-07-14 15:40:00 79 /min [facility] Respiratory rate 2024-07-14 15:40:00 18 /min [facility] Body height 2024-07-14 15:40:00 160 cm [facility] Body weight 2024-07-14 15:40:00 72.485 kg [facility] BMI 2024-07-14 15:40:00 28.31 kg/m2 [facility] Oxygen saturation in Arterial blood by Pulse oximetry 2024-07-14 15:40:00 99 /min [facility] Systolic blood pressure 2024-06-18 02:00:00 132 mm[Hg] [facility] Diastolic blood pressure 2024-06-18 02:00:00 73 mm[Hg] [facility] Heart rate 2024-06-18 02:00:00 82 /min [facility] Body temperature 2024-06-18 02:00:00 37.06 Lashawn [facility] Respiratory rate 2024-06-18 02:00:00 15 /min [facility] Oxygen saturation in Arterial blood by Pulse oximetry 2024-06-18 02:00:00 96 /min [facility] Body height 2024-06-17 21:41:00 160 cm [facility] Body weight 2024-06-17 21:41:00 66.679 kg [facility] BMI 2024-06-17 21:41:00 26.04 kg/m2 [facility] Systolic blood pressure 2024-04-11 17:32:00 118 mm[Hg] [facility] Diastolic blood pressure 2024-04-11 17:32:00 66 mm[Hg] [facility] Heart rate 2024-04-11 17:32:00 77 /min [facility] 2024-04-11 17:32:00 16 /min [facility] Body height 2024-04-11 17:32:00 160 cm [facility] Body weight 2024-04-11 17:32:00 68.811 kg [facility] BMI 2024-04-11 17:32:00 26.87 kg/m2 [facility] Oxygen saturation in Arterial blood by Pulse oximetry 2024-04-11 17:32:00 100 /min [facility] Heart rate 2024-03-12 15:00:00 82 /min [facility] Oxygen saturation in Arterial blood by Pulse oximetry 2024-03-12 15:00:00 97 /min [facility] Systolic blood pressure 2024-03-12 13:00:00 141 mm[Hg] [facility] Diastolic blood pressure 2024-03-12 13:00:00 74 mm[Hg] [facility] Respiratory rate 2024-03-12 12:18:00 18 /min [facility] Body temperature 2024-03-12 12:16:00 36 Lashawn [facility] Body weight 2024-03-12 09:00:00 62.959 kg [facility] BMI 2024-03-12 09:00:00 24.59 kg/m2 [facility] Body height 2024-03-11 21:10:00 160 cm [facility] Systolic blood pressure 2023-12-10 15:40:00 134 mm[Hg] [facility] Diastolic blood pressure 2023-12-10 15:40:00 87 mm[Hg] [facility] Heart rate 2023-12-10 15:40:00 73 /min [facility] Res[facility] rate 2023-12-10 15:40:00 18 /min [facility] Body height 2023-12-10 15:40:00 160 cm [facility] Body weight 2023-12-10 15:40:00 63.05 kg [facility] BMI 2023-12-10 15:40:00 24.62 kg/m2 [facility] Oxygen saturation in Arterial blood by Pulse oximetry 2023-12-10 15:40:00 99 /min [facility] Systolic blood pressure 2023-09-04 23:02:00 101 mm[Hg] [facility] Diastolic blood pressure 2023-09-04 23:02:00 79 mm[Hg] [facility] Heart rate 2023-09-04 23:02:00 77 /min [facility] Respiratory rate 2023-09-04 23:02:00 16 /min [facility] Oxygen saturation in Arterial blood by Pulse oximetry 2023-09-04 23:02:00 97 /min [facility] Body temperature 2023-09-04 19:21:00 37.89 Lashawn [facility] Body height 2023-09-04 19:20:00 160 cm [facility] weight 2023-09-04 19:20:00 61.689 kg [facility] BMI 2023-09-04 19:20:00 24.09 kg/m2 [facility] Systolic blood pressure 2023-06-11 16:32:00 125 mm[Hg] [facility] Diastolic blood pressure 2023-06-11 16:32:00 78 mm[Hg] [facility] Heart rate 2023-06-11 16:32:00 68 /min [facility] Respiratory rate 2023-06-11 16:32:00 18 /min [facility] Body height 2023-06-11 16:32:00 160 cm [facility] Body weight 2023-06-11 16:32:00 69.446 kg [facility] BMI 2023-06-11 16:32:00 27.12 kg/m2 [facility] Oxygen saturation in Arterial blood by Pulse oximetry 2023-06-11 16:32:00 99 /min [facility] Systolic blood pressure 2023-02-04 15:56:00 128 mm[Hg] [facility] Diastolic blood pressure 2023-02-04 15:56:00 84 mm[Hg] [facility] Heart rate 2023-02-04 15:56:00 112 /min [facility] Respiratory rate 2023-02-04 15:56:00 18 /min [facility] Body height 2023-02-04 15:56:00 160 cm [facility] Body weight 2023-02-04 15:56:00 87.544 kg [facility] BMI 2023-02-04 15:56:00 34.19 kg/m2 [facility] Oxygen saturation in Arterial blood by Pulse oximetry 2023-02-04 15:56:00 97 /min [facility] Systolic blood pressure 2023-01-02 14:49:00 140 mm[Hg] [facility] Diastolic blood pressure 2023-01-02 14:49:00 83 mm[Hg] [facility] Heart rate 2023-01-02 14:48:00 104 /min [facility] Body temperature 2023-01-02 14:48:00 37.5 Lashawn [facility] Respiratory rate 2023-01-02 14:48:00 17 /min [facility] Body height 2023-01-02 14:48:00 160 cm [facility] Body weight 2023-01-02 14:48:00 89.359 kg [facility] BMI 2023-01-02 14:48:00 34.90 kg/m2 [facility] Oxygen saturation in Arterial blood by Pulse oximetry 2023-01-02 14:48:00 98 /min [facility] Systolic blood pressure 2022-12-07 18:30:00 165 mm[Hg] [facility] Diastolic blood pressure 2022-12-07 18:30:00 108 mm[Hg] [facility] Heart rate 2022-12-07 18:30:00 110 /min [facility] Respiratory rate 2022-12-07 18:30:00 17 /min [facility] Oxygen saturation in Arterial blood by Pulse oximetry 2022-12-07 18:30:00 98 /min [facility] Body temperature 2022-12-07 17:17:00 38.17 Lashawn [facility] Body height 2022-12-07 17:10:00 162.6 cm [facility] 2022-12-07 17:10:00 87.544 kg [facility] BMI 2022-12-07 17:10:00 33.13 kg/m2 [facility] Systolic blood pressure 2022-11-26 16:28:00 133 mm[Hg] [facility] Diastolic blood pressure 2022-11-26 16:28:00 86 mm[Hg] [facility] Heart rate 2022-11-26 16:26:00 99 /min [facility] Respiratory rate 2022-11-26 16:26:00 18 /min [facility] Body height 2022-11-26 16:26:00 157.5 cm [facility] Body weight 2022-11-26 16:26:00 87.544 kg [facility] BMI 2022-11-26 16:26:00 35.30 kg/m2 [facility] Oxygen saturation in Arterial blood by Pulse oximetry 2022-11-26 16:26:00 97 /min [facility] Systolic blood pressure 2022-11-12 16:25:00 151 mm[Hg] [facility] Diastolic blood pressure 2022-11-12 16:25:00 92 mm[Hg] [facility] Heart rate 2022-11-12 16:25:00 95 /min [facility] Oxygen saturation in Arterial blood by Pulse oximetry 2022-11-12 16:25:00 97 /min [facility] Body temperature 2022-11-12 16:23:00 36.5 Lashawn [facility] Respiratory rate 2022-11-12 16:23:00 18 /min [facility] Body height 2022-11-12 16:23:00 157.5 cm [facility] weight 2022-11-12 16:23:00 85.639 kg [facility] BMI 2022-11-12 16:23:00 34.53 kg/m2 [facility] Systolic blood pressure 2022-11-10 15:41:00 134 mm[Hg] [facility] Diastolic blood pressure 2022-11-10 15:41:00 83 mm[Hg] [facility] Heart rate 2022-11-10 15:41:00 102 /min [facility] Body temperature 2022-11-10 15:41:00 37.39 Lashawn [facility] Respiratory rate 2022-11-10 15:41:00 18 /min [facility] Body height 2022-11-10 15:41:00 157.5 cm [facility] Body weight 2022-11-10 15:41:00 86.212 kg [facility] BMI 2022-11-10 15:41:00 34.76 kg/m2 [facility] Oxygen saturation in Arterial blood by Pulse oximetry 2022-11-10 15:41:00 100 /min [facility] Systolic blood pressure 2022-11-05 14:46:00 136 mm[Hg] [facility] Diastolic blood pressure 2022-11-05 14:46:00 88 mm[Hg] [facility] Heart rate 2022-11-05 14:46:00 90 /min [facility] Body temperature 2022-11-05 14:46:00 36.56 Lashawn [facility] Respiratory rate 2022-11-05 14:46:00 18 /min [facility] Body height 2022-11-05 14:46:00 157.5 cm [facility] Body weight 2022-11-05 14:46:00 86.274 kg [facility] BMI 2022-11-05 14:46:00 34.79 kg/m2 [facility] Oxygen saturation in Arterial blood by Pulse oximetry 2022-11-05 14:46:00 98 /min [facility] Systolic blood pressure 2022-09-27 11:30:00 161 mm[Hg] [facility] Diastolic blood pressure 2022-09-27 11:30:00 85 mm[Hg] [facility] Heart rate 2022-09-27 11:30:00 116 /min [facility] Respiratory rate 2022-09-27 11:30:00 19 /min [facility] Oxygen saturation in Arterial blood by Pulse oximetry 2022-09-27 11:30:00 95 /min [facility] Body temperature 2022-09-27 07:27:00 38 Lashawn [facility] Body weight 2022-09-27 07:00:00 90.719 kg [facility] BMI 2022-09-27 07:00:00 33.28 kg/m2 [facility] Systolic blood pressure 2022-09-20 03:00:00 130 mm[Hg] [facility] Diastolic blood pressure 2022-09-20 03:00:00 65 mm[Hg] [facility] Heart rate 2022-09-20 03:00:00 106 /min [facility] Respiratory rate 2022-09-20 03:00:00 21 /min [facility] Oxygen saturation in Arterial blood by Pulse oximetry 2022-09-20 03:00:00 94 /min [facility] Body temperature 2022-09-20 00:10:00 37.94 Lashawn [facility] Body height 2022-09-20 00:10:00 165.1 cm [facility] Body weight 2022-09-20 00:10:00 87.544 kg [facility] BMI 2022-09-20 00:10:00 32.12 kg/m2 [facility] Systolic blood pressure 2022-09-11 14:52:00 143 mm[Hg] [facility] Diastolic blood pressure 2022-09-11 14:52:00 83 mm[Hg] [facility] Heart rate 2022-09-11 14:52:00 98 /min [facility] Body temperature 2022-09-11 14:52:00 36.94 Lashawn [facility] Respiratory rate 2022-09-11 14:52:00 20 /min [facility] Body height 2022-09-11 14:52:00 160 cm [facility] Body weight 2022-09-11 14:52:00 87.544 kg [facility] BMI 2022-09-11 14:52:00 34.19 kg/m2 [facility] Oxygen saturation in Arterial blood by Pulse oximetry 2022-09-11 14:52:00 98 /min [facility] Heart rate 2022-08-29 04:25:00 93 /min [facility] Respiratory rate 2022-08-29 04:25:00 21 /min [facility] Oxygen saturation in Arterial blood by Pulse oximetry 2022-08-29 04:25:00 95 /min [facility] Systolic blood pressure 2022-08-29 04:00:00 140 mm[Hg] [facility] Diastolic blood pressure 2022-08-29 04:00:00 76 mm[Hg] [facility] Body temperature 2022-08-29 02:57:00 37.56 Lashawn [facility] Body height 2022-08-29 02:57:00 160 cm [facility] Body weight 2022-08-29 02:57:00 83.008 kg [facility] BMI 2022-08-29 02:57:00 32.42 kg/m2 [facility] Systolic blood pressure 2022-08-17 15:45:00 142 mm[Hg] [facility] Diastolic blood pressure 2022-08-17 15:45:00 92 mm[Hg] [facility] Heart rate 2022-08-17 15:45:00 84 /min [facility] Body weight 2022-08-17 15:45:00 81.33 kg [facility] BMI 2022-08-17 15:45:00 31.76 kg/m2 [facility] Oxygen saturation in Arterial blood by Pulse oximetry 2022-08-17 15:45:00 96 /min [facility] Body temperature 2022-08-15 22:00:00 36.33 Lashawn [facility] Heart rate 2022-08-15 13:50:00 99 /min [facility] Respiratory rate 2022-08-15 13:50:00 18 /min [facility] Oxygen saturation in Arterial blood by Pulse oximetry 2022-08-15 13:50:00 96 /min [facility] Systolic blood pressure 2022-08-15 10:00:00 130 mm[Hg] [facility] Diastolic blood pressure 2022-08-15 10:00:00 74 mm[Hg] [facility] Body weight 2022-08-14 19:19:00 82.555 kg [facility] BMI 2022-08-14 19:19:00 32.24 kg/m2 [facility] Systolic blood pressure 2022-07-22 15:15:00 135 mm[Hg] [facility] Diastolic blood pressure 2022-07-22 15:15:00 81 mm[Hg] [facility] Heart rate 2022-07-22 15:15:00 97 /min [facility] Body weight 2022-07-22 15:15:00 82.555 kg [facility] BMI 2022-07-22 15:15:00 32.24 kg/m2 [facility] Oxygen saturation in Arterial blood by Pulse oximetry 2022-07-22 15:15:00 98 /min [facility] Systolic blood pressure 2022-06-28 16:00:00 130 mm[Hg] [facility] Diastolic blood pressure 2022-06-28 16:00:00 62 mm[Hg] [facility] Heart rate 2022-06-28 16:00:00 100 /min [facility] Body temperature 2022-06-28 16:00:00 36.22 Lashawn [facility] Respiratory rate 2022-06-28 16:00:00 9 /min [facility] Oxygen saturation in Arterial blood by Pulse oximetry 2022-06-28 16:00:00 95 /min [facility] Body weight 2022-06-28 09:00:00 87.499 kg [facility] BMI 2022-06-28 09:00:00 34.17 kg/m2 [facility] Body height 2022-06-28 00:00:00 160 cm [facility] Systolic blood pressure 2022-06-25 14:10:00 131 mm[Hg] [facility] Diastolic blood pressure 2022-06-25 14:10:00 89 mm[Hg] [facility] Heart rate 2022-06-25 14:10:00 82 /min [facility] Body weight 2022-06-25 14:10:00 83.598 kg [facility] BMI 2022-06-25 14:10:00 32.65 kg/m2 [facility] Oxygen saturation in Arterial blood by Pulse oximetry 2022-06-25 14:10:00 97 /min [facility] Systolic blood pressure 2022-05-28 14:40:00 124 mm[Hg] [facility] Diastolic blood pressure 2022-05-28 14:40:00 76 mm[Hg] [facility] Heart rate 2022-05-28 14:40:00 83 /min [facility] Body weight 2022-05-28 14:40:00 84.687 kg [facility] BMI 2022-05-28 14:40:00 33.07 kg/m2 [facility] Oxygen saturation in Arterial blood by Pulse oximetry 2022-05-28 14:40:00 96 /min [facility] Systolic blood pressure 2022-04-30 14:11:00 119 mm[Hg] [facility] Diastolic blood pressure 2022-04-30 14:11:00 79 mm[Hg] [facility] Heart rate 2022-04-30 14:11:00 83 /min [facility] Body temperature 2022-04-30 14:11:00 36.94 Lashawn [facility] Respiratory rate 2022-04-30 14:11:00 18 /min [facility] Body height 2022-04-30 14:11:00 160 cm [facility] Body weight 2022-04-30 14:11:00 81.784 kg [facility] BMI 2022-04-30 14:11:00 31.94 kg/m2 [facility] Oxygen saturation in Arterial blood by Pulse oximetry 2022-04-30 14:11:00 97 /min Waka o [facility] Procedures Procedure Date / Time Performed Performing Clinician Source CRITICAL CARE 2024-06-17 21:37:00 AnnaAna [facility] BASIC METABOLIC PANEL (NA, K, CL, CO2, GLUCOSE, BUN, CREATININE, CA) 2024-03-12 11:16:00 Matilde Diego [facility] CBC WITH DIFF 2024-03-12 11:16:00 Matilde Diego [facility] COMP. METABOLIC PANEL ([id number]) 2024-03-12 01:36:00 Ronen Bettencourt [facility] CBC WITH DIFF 2024-03-12 01:36:00 Ronen Bettencourt [facility] CT ABDOMEN PELVIS WO CONTRAST 2023-09-04 20:03:32 Deborah Winslow [facility] URINALYSIS 2023-09-04 19:41:00 Deborah Winslow [facility] POCT TEST 2023-09-04 19:40:00 Minor Winslow [facility] CONSENT/REFUSAL FOR DIAGNOSIS AND TREATMENT 2023-09-04 19:14:02 Doctor Unassigned, [place] [facility] XR CHEST 2 VW 2023-01-02 15:11:00 Paige Jones [facility] CONSENT/REFUSAL FOR DIAGNOSIS AND TREATMENT 2022-12-07 17:05:24 Doctor Unassigned, [place] [facility] CONSENT/REFUSAL FOR DIAGNOSIS AND TREATMENT 2022-11-26 15:30:32 Doctor Unassigned, [place] [facility] DISCLOSURE AND CONSENT, MEDICAL AND SURGICAL PROCEDURES 2022-11-12 06:01:00 Doctor Unassigned, [place] [facility] XR HAND 3+ VW RIGHT 2022-11-10 15:55:44 Sherly Jones [facility] PATIENT FINANCIAL POLICY 2022-11-05 14:24:59 Doctor Unassigned, [place] [facility] EMERGENCY DEPARTMENT DOCUMENTS 2022-10-15 06:01:00 Doctor Unassigned, [place] [facility] XR CHEST 1 VW 2022-09-27 07:30:00 Morgan Vargas [facility] COMP. METABOLIC PANEL ([id number]) 2022-09-20 00:35:00 Meng Galicia [facility] CBC WITH DIFF 2022-09-20 00:35:00 Meng Galicia [facility] CT ABDOMEN PELVIS W CONTRAST 2022-08-29 03:21:00 Amanda Power [facility] LIPASE 2022-08-29 03:00:00 [facility] 2022-08-29 03:00:00 Amanda Power [facility] COMP. METABOLIC PANEL ([id number]) 2022-08-29 03:00:00 Amanda Power [facility] CBC WITH DIFF 2022-08-29 03:00:00 Amanda Power [facility] URINALYSIS 2022-08-29 03:00:00 Amanda Power [facility] NOTICE OF PRIVACY PRACTICES 2022-08-29 02:51:00 Doctor Unassigned, [place] [facility] CONSENT/REFUSAL FOR DIAGNOSIS AND TREATMENT 2022-08-29 02:49:23 Doctor Unassigned, [place] [facility] LACTIC ACID WHOLE BLOOD 2022-08-15 18:33:00 Ian Reese [facility] TEST, SERUM 2022-08-14 19:48:00 Jarrod Levy [facility] COMP. METABOLIC PANEL ([id number]) 2022-08-14 19:48:00 Frandy Levy [facility] CBC WITH DIFF 2022-08-14 19:48:00 Frandy Levy [facility] PROTHROMBIN TIME / INR 2022-08-14 19:48:00 Av Levy [facility] ACTIVATED PARTIAL THRMPLAS NEKCHI 2022-08-14 19:48:00 Frandy Levy [facility] LACTIC ACID WHOLE BLOOD 2022-08-14 19:48:00 Dago Levy [facility] CRITICAL CARE 2022-08-14 19:11:00 Frandy Levy [facility] XR CHEST 2 VW 2022-06-27 19:48:40 [facility] TEST, SERUM 2022-06-27 19:44:00 Genaro Eubanks [facility] THYROID STIMULATING HORMONE 2022-06-27 19:44:00 Nancy Brar [facility] COMP. METABOLIC PANEL ([id number]) 2022-06-27 19:44:00 Genaro Eubanks [facility] CBC WITH DIFF 2022-06-27 19:44:00 [facility] RAPID INFLUENZA A/B 2022-06-27 19:44:00 Genaro Eubanks [facility] RAPID RSV 2022-06-27 19:44:00 Genaro Eubanks [facility] COVID-19 (ID NOW RAPID TESTING) 2022-06-27 19:44:00 Genaro Eubanks [facility] Encounters Start Date/Time End Date/Time Encounter Type Admission Type Attending Clinicians Care Facility Care Department Encounter ID Source 2021-07-08 07:14:58 Emergency [facility] [id number] [facility] 2021-07-07 03:24:43 Emergency [facility] [id number] [facility] 2021-07-06 23:03:57 Inpatient R MARIUM DAWSON [facility] 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 [id number] [facility] 2021-07-05 19:04:39 Emergency [facility] [id number] [facility] 2021-07-04 23:32:26 Emergency [facility] [id number] [facility] 2021-07-03 22:25:44 Emergency [facility] [id number] [facility] 2025-01-16 09:00:00 2025-01-16 09:00:00 Outpatient RAFIQ HUTCHINSON RAAI [facility] [id number] [facility] 2024-11-30 00:00:00 2024-11-30 08:04:22 Specialty Pharmacy Jane Angeles Monique [facility] 1..114 350.1.13.10 4.2.7.2.686 [id number] [facility] 2024-11-23 22:20:00 2024-11-23 23:25:00 Emergency X HÉCTOR SHAHID DONNELL [facility] [id number] [facility] 2024-11-07 00:00:00 2024-11-07 10:50:47 Specialty Pharmacy Radha Adams Sudha [facility] 1..114 350.1.13.10 4.2.7.2.686 [id number] [facility] 2024-11-07 09:00:00 2024-11-07 09:00:00 Office Visit Rafiq Ann [facility] 1..114 350.1.13.10 4.2.7.2.686 [id number] [facility] 2024-11-07 09:00:00 2024-11-07 08:59:01 Outpatient RAFIQ HUTCHINSON RAAI [facility] [id number] [facility] 2024-11-01 11:30:00 2024-11-01 11:45:00 Hand Finisher Visit Lab, Rafiq Lenz Lab, Javier [facility] 1..114 350.1.13.10 4.2.7.2.686 [id number] [facility] 2024-11-01 11:30:00 2024-11-01 11:30:00 Outpatient R RAFIQ ANN RAAI [facility] [id number] [facility] 2024-10-27 00:00:00 2024-10-31 10:47:19 [facility] 1..114 350.1.13.10 4.2.7.2.686 [id number] [facility] 2024-10-28 00:00:00 2024-10-30 10:48:33 [facility] 1..114 350.1.13.10 4.2.7.2.686 [id number] [facility] 2024-10-26 08:15:00 2024-10-26 08:15:00 Hand Finisher Visit Lab, Catrachita Kelsey Lab, [facility] 1.114 350.1.13.10 4.2.7.2.686 [id number] [facility] 2024-10-26 08:15:00 2024-10-26 08:05:40 Outpatient R CATRACHITA MERCADO [facility] [id number] [facility] 2024-10-23 00:00:00 2024-10-24 10:03:34 Patient Secure Msg [facility] 1.114 350.1.13.10 4.2.7.2.686 [id number] [facility] 2024-10-23 00:00:00 2024-10-23 06:37:31 Telephone [place] [facility] 1.114 350.1.13.10 4.2.7.2.686 [id number] [facility] 2024-10-16 00:00:00 2024-10-16 10:38:53 Specialty Pharmacy Jane Angeles Monique [facility] 1.2840.114 350.1.13.10 4.2.7.2.686 [id number] [facility] 2024-10-13 11:30:00 2024-10-13 11:45:00 Hand Finisher Visit Vt-Lab Catrachita Mercado [facility] 1.0.114 350.1.13.10 4.2.7.2.686 [id number] [facility] 2024-10-13 10:30:00 2024-10-13 11:09:48 Outpatient R CATRACHITA MERCADO [facility] [id number] [facility] 2024-10-13 10:30:00 2024-10-13 11:09:48 Office [facility] 1..114 350.1.13.10 4.2.7.2.686 [id number] [facility] 2024-10-04 14:00:00 2024-10-04 15:00:00 Office Visit Rafiq [facility] 1.0.114 350.1.13.10 4.2.7.2.686 [id number] [facility] 2024-10-04 14:00:00 2024-10-04 14:00:00 Outpatient R RAFIQ ANN RAAI [facility] [id number] [facility] 2024-09-20 00:00:00 2024-09-20 13:56:42 Specialty Pharmacy Melissa Prado Mai, Ngoc Mai [facility] 1.2840.114 350.1.13.10 4.2.7.2.686 [id number] [facility] 2024-09-19 16:29:30 2024-09-19 16:29:30 Outpatient SFA [facility] [id number] Terrence Campuzano 2024-09-14 00:00:00 2024-09-14 14:52:13 Specialty Pharmacy Jane Angeles Monique [facility] 1.2840.114 350.1.13.10 4.2.7.2.686 [id number] [facility] 2024-09-04 09:40:00 2024-09-04 10:00:00 Urgent Care Rosio Martinez Unknown, Attending [facility] 1.2840.114 350.1.13.10 4.2.7.2.686 [id number] [facility] 2024-09-04 09:40:00 2024-09-04 09:40:00 Outpatient R ROSIO MARTINEZ [facility] [id number] [facility] 2024-08-18 00:00:00 2024-08-18 12:50:16 Specialty Pharmacy Faraz Taveras Michael A [facility] 1.2840.114 350.1.13.10 4.2.7.2.686 [id number] [facility] 2024-07-17 00:00:00 2024-07-17 09:26:06 Specialty Pharmacy Melissa Prado Mai, Ngoc Mai [facility] 1.2840.114 350.1.13.10 4.2.7.2.686 [id number] [id number] [facility] 2024-07-14 00:00:00 2024-07-17 09:02:35 Patient Secure [facility] Lem[facility] 1.2.840.114 350.1.13.10 4.2.7.2.686 [id number] [facility] 2024-07-14 00:00:00 2024-07-14 16:32:54 Patient Secure Msg [facility]achita Mercado [facility] 1.2840.114 350.1.13.10 4.2.7.2.686 [id number] [facility] 2024-07-14 10:00:00 2024-07-14 11:04:45 Outpatient R CATRACHITA MERCADO [facility] [id number] [facility] 2024-07-14 10:00:00 2024-07-14 11:04:45 Office Visit Catrachita Mercado [facility] 1.0.114 350.1.13.10 4.2.7.2.686 [id number] [facility] 2024-07-12 00:00:00 2024-07-14 09:45:07 Andrew [facility] 1.2840.114 350.1.13.10 4.2.7.2.686 [id number] [facility] 2024-06-28 11:06:52 2024-06-28 11:06:52 Outpatient SFA [facility] [id number] Terrence Velasco Justen 2024-06-17 16:44:00 2024-06-17 21:15:00 Emergency X ANA CASTILLO [facility] ERT [id number] [facility] 2024-06-17 16:44:00 2024-06-17 21:15:00 Emergency Ana Castillo [facility] 1.2.840.114 350.1.13.10 4.2.7.2.686 [id number] [facility] 2024-06-06 00:00:00 2024-06-06 10:35:06 Specialty Pharmacy Jane Angeles Monique [facility] 1.2.840.114 350.1.13.10 4.2.7.2.686 [id number] [id number] [facility] 2024-05-30 00:00:00 2024-05-30 12:34:04 Specialty Pharmacy Alysa Sprague Raven [facility] 1.2.840.114 350.1.13.10 4.2.7.2.686 [id number] [facility] 2024-05-30 00:00:00 2024-05-30 11:55:21 Specialty Pharmacy Alysa Sprague Raven [facility] 1.2.840.114 350.1.13.10 4.2.7.2.686 [id number] [facility] 2024-05-09 08:18:51 2024-05-09 08:18:51 Outpatient [facility] [id number] Terrence Campuzano 2024-05-03 00:00:00 2024-05-03 09:54:46 Telephone Alysa Sprague Raven [facility] 1.2.840.114 350.1.13.10 4.2.7.2.686 [id number] [facility] 2024-04-29 00:00:00 2024-04-29 12:08:47 Specialty Pharmacy Jocelyn Batista Tamara L [facility] 1.2.840.114 350.1.13.10 4.2.7.2.686 [id number] [facility] 2024-04-14 00:00:00 2024-04-14 08:33:42 Patient Secure Catrachita Lemos [facility] 1.2.840.114 350.1.13.10 4.2.7.2.686 [id number] [facility] 2024-04-11 13:45:00 2024-04-11 14:00:00 Hand Finisher Visit Vtc-Lab Catrachita Mercado [facility] 1.2.840.114 350.1.13.10 4.2.7.2.686 [id number] [facility] 2024-04-11 12:30:00 2024-04-11 13:21:55 Outpatient CATRACHITA LUNA [facility] [id number] [facility] 2024-04-11 12:30:00 2024-04-11 13:21:55 Office Visit Catrachita Mercado [facility] 1.2.840.114 350.1.13.10 4.2.7.2.686 [id number] [facility] 2024-03-29 00:00:00 2024-03-30 11:06:18 Telephone Radha Adams [facility] 1.2.840.114 350.1.13.10 4.2.7.2.686 [id number] [facility] 2024-03-21 13:00:00 2024-03-21 13:00:00 Outpatient CATRACHITA LUNA [facility] [id number] [facility] 2024-03-14 00:00:00 2024-03-14 14:56:25 Transition of Care Marley Tello 1.2.840.114 350.1.13.10 4.2.7.2.686 [id number] [facility] 2024-03-14 13:00:00 2024-03-14 13:00:00 Outpatient CATRACHITA LUNA [facility] [id number] [facility] 2024-03-11 15:59:00 2024-03-12 11:09:00 Outpatient MARVIN KAYLANI [facility] [id number] [facility] 2024-03-11 15:59:00 2024-03-12 11:09:00 Emergency Amanda Power Jelani [facility] 1.2.840.114 350.1.13.10 4.2.7.2.686 [id number] [facility] 2024-01-26 00:00:00 2024-02-26 18:16:54 Patient Secure Msg Doctor Unassigned, [place] [facility] 1.2.840.114 350.1.13.10 4.2.7.2.686 [id number] [facility] 2024-02-21 00:00:00 2024-02-21 10:38:14 Telephone Bryan [facility] ([facility]) 1.2.840.114 350.1.13.10 4.2.7.2.686 [id number] [facility] 2024-02-01 08:05:32 2024-02-01 08:05:32 Outpatient [facility] [id number] Terrence Campuzano 2024-01-26 00:00:00 2024-01-28 08:46:48 Catrachita Robertson [facility] 1.2.840.114 350.1.13.10 4.2.7.2.686 [id number] [facility] 2024-01-26 00:00:00 2024-01-26 11:11:01 Telephone Bryan [facility] ([facility]) 1.2.840.114 350.1.13.10 4.2.7.2.686 [id number] [id number] [facility] 2023-12-28 00:00:00 2023-12-28 00:00:00 Telephone AdamsRadha [facility] ([facility]) 1.2.840.114 350.1.13.10 4.2.7.2.686 [id number] [facility] 2023-12-10 11:45:00 2023-12-10 12:00:00 Hand Finisher Visit [facility] Catrachita Mercado [facility]PEC [facility] 1.2.840.114 350.1.13.10 4.2.7.2.686 [id number] [facility] 2023-12-10 11:00:00 2023-12-10 11:33:42 Outpatient R CATRACHITA MERCADO [facility] [id number] [facility] 2023-12-10 11:00:00 2023-12-10 11:33:42 [facility] 1.2.840.114 350.1.13.10 4.2.7.2.686 [id number] [facility] 2023-09-04 13:25:00 2023-09-04 17:12:00 Emergency X DEBORAH WINSLOW [facility] ERT [id number] [facility] 2023-09-04 13:25:00 2023-09-04 17:12:00 Emergency Deborah Winslow [facility] 1.2.840.114 350.1.13.10 4.2.7.2.686 [id number] [facility] 2023-07-14 10:51:11 2023-07-14 10:51:11 Outpatient [facility] [id number] Terrence Campuzano 2023-07-03 00:00:00 2023-07-03 00:00:00 Outpatient GC_[id number]_Ka diyala_S [facility] [id number] [facility] 2023-06-11 11:30:00 2023-06-11 12:44:12 Outpatient CATRACHITA LUNA [facility] [id number] [facility] 2023-06-11 11:30:00 2023-06-11 12:44:12 Office Visit Catrachita Mercado [facility] MULTISPEC [facility] 1.0.114 350.1.13.10 4.2.7.2.686 [id number] [facility] 2023-05-28 09:22:17 2023-05-28 09:22:17 Outpatient SFA [facility] [id number] Terrence Velasco Justen 2023-05-05 00:00:00 2023-05-05 00:00:00 Patient Secure [facility] 1..114 350.1.13.10 4.2.7.2.686 [id number] [facility] 2023-03-29 15:16:53 2023-03-29 15:16:53 Outpatient SFA SFA [id number] Terrence Velasco Justen 2023-02-16 00:00:00 2023-02-16 00:00:00 Patient Secure Catrachita Mercado [facility] 1..114 350.1.13.10 4.2.7.2.686 [id number] [facility] 2023-02-11 00:00:00 2023-02-11 00:00:00 Telephone Catrachita Mercado [facility] 1.0.114 350.1.13.10 4.2.7.2.686 [id number] [facility] 2023-02-04 12:00:00 2023-02-04 12:15:00 Hand Finisher [facility] 1..114 350.1.13.10 4.2.7.2.686 [id number] [facility] 2023-02-04 11:30:00 2023-02-04 11:39:11 Outpatient R CATRACHITA MERCADO [facility] [id number] [facility] 2023-02-04 11:30:00 2023-02-04 11:39:11 Office Visit Catrachita Mercado [facility] 1..114 350.1.13.10 4.2.7.2.686 [id number] [facility] 2023-02-03 11:00:28 2023-02-03 11:00:28 Outpatient SFA [facility] [id number] Terrence Campuzano 2023-01-13 10:31:00 2023-01-13 10:31:00 Outpatient SFA SFA [id number] Terrence Campuzano 2023-01-02 09:55:10 2023-01-02 23:59:00 Outpatient R PAIGE JONES [facility] [id number] [facility] 2023-01-02 09:55:10 2023-01-02 23:59:00 Hospital Encounter Paige Jones [facility] 1.840.114 350.1.13.10 4.2.7.2.686 [id number] [facility] 2023-01-02 10:00:00 2023-01-02 10:01:10 Urgent Care Paige Jones Unknown, Attending [facility] 1.2.840.114 350.1.13.10 4.2.7.2.686 [id number] [facility] 2022-12-07 12:06:00 2022-12-07 13:56:00 Emergency X AMANDA MCKEON [facility] ERT [id number] [facility] 2022-12-07 12:06:00 2022-12-07 13:56:00 Emergency Amanda Mckeon [facility] 1.2840.114 350.1.13.10 4.2.7.2.686 [id number] [facility] 2022-11-26 10:45:00 2022-11-26 11:35:16 Outpatient R RACHNA BUSH [facility] [id number] [facility] 2022-11-26 10:45:00 2022-11-26 11:35:16 Office Visit Rachna Bush [facility] 1.2.840.114 350.1.13.10 4.2.7.2.686 [id number] [facility] 2022-11-26 00:00:00 2022-11-26 00:00:00 Orders Only Doctor Unassigned[place] [facility] 1.2840.114 350.1.13.10 4.2.7.2.686 [id number] [facility] 2022-11-12 14:00:00 2022-11-12 14:00:00 Outpatient R RACHNA BUSH [facility] [id number] [facility] 2022-11-12 10:00:00 2022-11-12 11:16:39 Outpatient R RACHNA BUSH [facility] [id number] [facility] 2022-11-12 10:00:00 2022-11-12 11:16:39 Office Visit Rachna Bush [facility] 1..840.114 350.1.13.10 4.2.7.2.686 [id number] [facility] 2022-11-12 00:00:00 2022-11-12 00:00:00 Orders Only Doctor Unassigned, [place] [facility] 1.840.114 350.1.13.10 4.2.7.2.686 [id number] [facility] 2022-11-10 09:48:22 2022-11-10 23:59:00 Outpatient R FANI JONESJOHNATHAN [facility] [id number] [facility] 2022-11-10 09:48:22 2022-11-10 23:59:00 Hospital Encounter Fani Jonesjohnathan [facility] 1..840.114 350.1.13.10 4.2.7.2.686 [id number] [facility] 2022-11-10 09:20:00 2022-11-10 09:55:29 Urgent Care JonesPaige Unknown, Attending [facility] 1.840.114 350.1.13.10 4.2.7.2.686 [id number] [facility] 2022-11-05 09:00:00 2022-11-05 09:37:01 Outpatient R RACHNA BUSH [facility] [id number] [facility] 2022-11-05 09:00:00 2022-11-05 09:37:01 Office Visit Rachna Bush [facility] 1..840.114 350.1.13.10 4.2.7.2.686 [id number] [facility] 2022-11-05 00:00:00 2022-11-05 00:00:00 Orders Only Doctor Unassigned, [place] [facility] 1.2.840.114 350.1.13.10 4.2.7.2.686 [id number] [facility] 2022-10-15 00:00:00 2022-10-15 00:00:00 Orders Only Doctor Unassigned, [place] [facility] 1.2.840.114 350.1.13.10 4.2.7.2.686 [id number] [facility] 2022-09-27 00:57:00 2022-09-27 05:55:00 Emergency X MORGAN VARGAS [facility] ERT [id number] [facility] 2022-09-27 00:57:00 2022-09-27 05:55:00 Emergency Morgan Vargas [facility] 1.2.840.114 350.1.13.10 4.2.7.2.686 [id number] [facility] 2022-09-19 18:05:00 2022-09-19 21:16:00 Emergency X AMAIRANILUIS [facility] [id number] [facility] 2022-09-19 18:05:00 2022-09-19 21:16:00 Emergency Amairanivinayak Meng [facility] 1.2.840.114 350.1.13.10 4.2.7.2.686 [id number] [facility] 2022-09-11 10:00:00 2022-09-11 10:15:00 Hand Finisher Visit Vtc-Lab Catrachita Mercado [facility] 1.2840.114 350.1.13.10 4.2.7.2.686 [id number] [facility] 2022-09-11 10:00:00 2022-09-11 10:00:00 Outpatient CATRACHITA LUNA [facility] [id number] [facility] 2022-09-11 09:00:00 2022-09-11 09:56:11 Office Visit Catrachita Mercado [facility] 1.2840.114 350.1.13.10 4.2.7.2.686 [id number] [facility] 2022-09-10 09:30:00 2022-09-10 09:30:00 Outpatient R [facility] [id number] [facility] 2022-09-07 00:00:00 2022-09-07 00:00:00 Telephone Catrachita Mercado [facility] 1.840.114 350.1.13.10 4.2.7.2.686 [id number] [facility] 2022-08-28 20:52:00 2022-08-28 22:35:00 Emergency X AMANDA POWER [facility] ERT [id number] [facility] 2022-08-28 20:52:00 2022-08-28 22:35:00 Emergency Amanda Power [facility] 1.2840.114 350.1.13.10 4.2.7.2.686 [id number] [facility] 2022-08-17 10:00:00 2022-08-17 10:30:00 Nurse Visit Nurse, Dec Int Med Allergy Lorene Roman [facility] 1.0.114 350.1.13.10 4.2.7.2.686 [id number] [facility] 2022-08-17 10:00:00 2022-08-17 10:00:00 Outpatient R LORENE ROMAN [facility] [id number] [facility] 2022-08-17 00:00:00 2022-08-17 00:00:00 Transition of Care Marley Tello 1.840.114 350.1.13.10 4.2.7.2.686 [id number] [facility] 2022-08-17 00:00:00 2022-08-17 00:00:00 Patient Secure Msg Doctor Unassigned, [place] [facility] 1.2.840.114 350.1.13.10 4.2.7.2.686 [id number] [facility] 2022-08-14 13:24:00 2022-08-15 17:15:00 Inpatient ELIEZER YIN [facility] [id number] [facility] 2022-08-14 13:24:00 2022-08-15 17:15:00 Hospital Encounter Frandy Levy David [facility] 1.840.114 350.1.13.10 4.2.7.2.686 [id number] [facility] 2022-08-14 00:00:00 2022-08-14 00:00:00 Catrachita Robertson [facility] 1.0.114 350.1.13.10 4.2.7.2.686 [id number] [facility] 2022-07-22 09:30:00 2022-07-22 10:00:00 Nurse Visit Nurse, Vtc Int Med Allergy Lorene Roman [facility] 1..114 350.1.13.10 4.2.7.2.686 [id number] [id number] [facility] 2022-07-22 09:30:00 2022-07-22 09:30:00 Outpatient LORENE FARMER [facility] [id number] [facility] 2022-06-30 00:00:00 2022-06-30 00:00:00 Transition of Care Marley Tello 1..114 350.1.13.10 4.2.7.2.686 [id number] [facility] 2022-06-29 00:00:00 2022-06-29 00:00:00 Patient Secure Msg Doctor Unassigned, [place] [facility] 1..114 350.1.13.10 4.2.7.2.686 [id number] [facility] 2022-06-27 13:49:00 2022-06-28 13:32:00 Outpatient ELIEZER YIN [facility] [id number] [facility] 2022-06-27 13:49:00 2022-06-28 13:32:00 Emergency Genaro Eubanks David [facility] 1..114 350.1.13.10 4.2.7.2.686 [id number] [facility] 2022-06-25 09:30:00 2022-06-25 10:00:00 Nurse Visit Nurse, [facility] Int Med Allergy [facility] 1.114 350.1.13.10 4.2.7.2.686 [id number] [facility] 2022-06-25 09:30:00 2022-06-25 09:30:00 Outpatient CATRACHITA LUNA [facility] [id number] [facility] 2022-05-28 10:00:00 2022-05-28 10:30:00 Nurse Visit Nurse, [facility] Int Med Allergy Catrachita Mercado [facility] MULTISPEC [facility] 1.114 350.1.13.10 4.2.7.2.686 [id number] [facility] 2022-05-28 10:00:00 2022-05-28 10:00:00 Outpatient CATRACHITA LUNA [facility] [id number] [facility] 2022-05-13 00:00:00 2022-05-13 00:00:00 Telephone ChristopherDanyel rae [facility] 1.0.114 350.1.13.10 4.2.7.2.686 [id number] [facility] 2022-04-30 09:30:00 2022-04-30 10:06:23 Outpatient CATRCAHITA LUNA [facility] [id number] [facility] 2022-04-30 09:30:00 2022-04-30 10:06:23 Office Visit Catrachita Mercado [facility] MULTISPEC [facility] 1..114 350.1.13.10 4.2.7.2.686 [id number] [facility] 2022-04-30 09:30:00 2022-04-30 10:06:23 Outpatient CATRACHITA LUNA [facility] [id number] [facility] 2022-04-23 00:00:00 2022-04-23 00:00:00 RefCatrachita Coe [facility] MULTISPEC [facility] 1..114 350.1.13.10 4.2.7.2.686 [id number] [id number] [facility] 2022-04-02 00:00:00 2022-04-02 00:00:00 Telephone Catrachita Mercado [facility] MULTISPEC [facility] 1..114 350.1.13.10 4.2.7.2.686 [id number] [facility] 2022-03-30 13:00:00 2022-03-30 15:10:07 Outpatient R LORENE ROMAN [facility] [id number] [facility] 2022-03-30 13:00:00 2022-03-30 15:10:07 Nurse Visit Nurse, [facility] Int Med Allergy [facility] MULTISPEC [facility] 1..114 350.1.13.10 4.2.7.2.686 [id number] [facility] 2022-03-05 09:00:00 2022-03-05 09:57:41 Outpatient OLRENE FARMER [facility] [id number] [facility] 2022-03-05 09:00:00 2022-03-05 09:57:41 Nurse Visit Nurse, [facility] 1..114 350.1.13.10 4.2.7.2.686 [id number] [facility] 2022-02-04 09:00:00 2022-02-04 09:30:00 Nurse Visit Nurse, [facility] 1.114 350.1.13.10 4.2.7.2.686 [id number] [facility] 2022-02-04 09:00:00 2022-02-04 09:00:00 Outpatient R LORENE ROMAN [facility] [id number] [facility] 2022-01-29 00:00:00 2022-01-29 00:00:00 Catrachita Robertson [facility] MULTISPEC [facility] 1..114 350.1.13.10 4.2.7.2.686 [id number] [id number] [facility] 2022-01-27 00:00:00 2022-01-27 00:00:00 Rosio Trejo [facility] 1..840.114 350.1.13.10 4.2.7.2.686 [id number] [facility] 2022-01-09 08:30:00 2022-01-09 11:32:35 Outpatient CATRACHITA LUNA [facility] [id number] [facility] 2022-01-09 08:30:00 2022-01-09 11:32:35 [facility] 1.840.114 350.1.13.10 4.2.7.2.686 [id number] [id number] [facility] 2022-01-05 00:00:00 2022-01-05 00:00:00 Telephone [facility] 1.840.114 350.1.13.10 4.2.7.2.686 [id number] [id number] [facility] 2021-12-11 09:00:00 2021-12-11 11:00:00 Nurse Visit Nurse, Vtc Int Med Allergy [facility]ita Merc[facility] 1.84.114 350.1.13.10 4.2.7.2.686 [id number] [id number] [facility] 2021-12-11 09:00:00 2021-12-11 09:00:00 Outpatient CATRACHITA LUNA [facility] [id number] [facility] 2021-11-22 14:44:00 2021-11-22 20:04:00 Emergency X Cristofer HENRY [facility] ERT [id number] [facility] 2021-11-22 14:44:00 2021-11-22 20:04:00 Emergency Cristofer Henry [facility] 1.114 350.1.13.10 4.2.7.2.686 [id number] [facility] 2021-11-14 09:00:00 2021-11-14 11:12:34 Office Visit Catrachita Mercado [facility] 1.114 350.1.13.10 4.2.7.2.686 [id number] [facility] 2021-11-14 09:00:00 2021-11-14 11:12:34 Outpatient CATRACHITA LUNA [facility] [id number] [facility] 2021-11-14 09:00:00 2021-11-14 09:00:00 Outpatient CATRACHITA LUNA [facility] [id number] [facility] 2021-11-14 09:00:00 2021-11-14 09:00:00 Outpatient CATRACHITA LUNA [facility] [id number] [facility] 2021-11-12 08:00:00 2021-11-12 08:15:00 Hand Finisher Visit Pob, Adc Lab Main Catrachita Mercado [facility] 1..114 350.1.13.10 4.2.7.2.686 [id number] [facility] 2021-11-12 08:00:00 2021-11-12 08:00:00 Outpatient CATRACHITA LUNA [facility] [id number] [facility] 2021-11-12 00:00:00 2021-11-12 00:00:00 Orders Only Doctor Unassigned, [place] [facility] 1..114 350.1.13.10 4.2.7.2.686 [id number] [facility] 2021-11-10 00:00:00 2021-11-10 00:00:00 Telephone JonesJosephine mccormick [facility] 1.2840.114 350.1.13.10 4.2.7.2.686 [id number] [facility] 2021-11-07 11:00:00 2021-11-07 11:00:00 Outpatient CATRACHITA LUNA [facility] [id number] [facility] 2021-11-07 11:00:00 2021-11-07 11:00:00 Outpatient CATRACHITA LUNA [facility] [id number] [facility] 2021-11-05 00:00:00 2021-11-05 00:00:00 Patient Secure Msg [facility] Merc[facility] 1.0.114 350.1.13.10 4.2.7.2.686 [id number] [facility] 2021-11-05 00:00:00 2021-11-05 00:00:00 Patient Secure Msg Catrachita Mercado [facility] 1.0.114 350.1.13.10 4.2.7.2.686 [id number] [facility] 2021-10-30 08:30:00 2021-10-30 09:00:00 Telemedici ne Visit [facility] Merc[facility] 1..114 350.1.13.10 4.2.7.2.686 [id number] [facility] 2021-10-30 08:30:00 2021-10-30 08:30:00 Outpatient CATRACHITA LUNA [facility] [id number] [facility] 2021-10-30 08:30:00 2021-10-30 08:30:00 Outpatient CATRACHITA LUNA [facility] [id number] [facility] 2021-10-29 00:00:00 2021-10-29 00:00:00 RefMarium Jalloh [facility] PROFESS[facility] 1..840.114 350.1.13.10 4.2.7.2.686 [id number] [facility] 2021-10-19 00:00:00 2021-10-19 00:00:00 [facility] 1..840.114 350.1.13.10 4.2.7.2.686 [id number] [facility] 2021-10-17 00:00:00 2021-10-17 00:00:00 Transition of Care [facility] 1..840.114 350.1.13.10 4.2.7.2.686 [id number] [facility] 2021-10-15 14:23:00 2021-10-16 14:50:00 Outpatient ELIEZER YIN [facility] [id number] [facility] 2021-10-15 14:23:00 2021-10-16 14:50:00 Emergency Marium Hickey David [facility] 1.840.114 350.1.13.10 4.2.7.2.686 [id number] [facility] 2021-09-27 11:15:00 2021-09-27 14:54:00 Emergency BA CEJA [facility] ERT [id number] [facility] 2021-09-27 11:15:00 2021-09-27 14:54:00 Emergency Ismael Cotter Robert Lee [facility] 1.2840.114 350.1.13.10 4.2.7.2.686 [id number] [facility] 2021-09-27 10:20:00 2021-09-27 10:20:00 Urgent Care Rosio Martinez [facility] 1.2840.114 350.1.13.10 4.2.7.2.686 [id number] [facility] 2021-09-27 10:20:00 2021-09-27 10:16:45 Outpatient ROSIO HOPE [facility] [id number] [facility] 2021-08-12 00:00:00 2021-08-12 00:00:00 Telephone Catrachita Mercado [facility] 1.2840.114 350.1.13.10 4.2.7.2.686 [id number] [facility] 2021-08-12 00:00:00 2021-08-12 00:00:00 Orders Only Doctor Unassigned, [place] [facility] 1.2.840.114 350.1.13.10 4.2.7.2.686 [id number] [facility] 2021-08-08 11:56:09 2021-08-08 12:11:09 Hand Finisher Visit Vtc-Lab [facility] 1.840.114 350.1.13.10 4.2.7.2.686 [id number] [facility] 2021-08-08 11:00:00 2021-08-08 11:56:31 Outpatient CATRACHITA LUNA [facility] [id number] [facility] 2021-08-08 10:03:35 2021-08-08 11:56:31 Office Visit Catrachita Mercado [facility] 1.114 350.1.13.10 4.2.7.2.686 [id number] [facility] 2021-07-22 13:30:00 2021-07-22 14:05:17 Outpatient R MARIUM DAWSON [facility] [id number] [facility] 2021-07-22 13:17:43 2021-07-22 14:05:17 Office Visit Marium Dawson [facility] 1.114 350.1.13.10 4.2.7.2.686 [id number] [facility] 2021-07-22 13:30:00 2021-07-22 13:30:00 Outpatient R MARIUM DAWSON [facility] [id number] [facility] 2021-07-22 13:30:00 2021-07-22 13:30:00 Outpatient R MARIUM DAWSON [facility] [id number] [facility] 2021-07-11 16:01:12 2021-07-11 16:49:47 Office Visit Marium Dawson [facility] 1.2114 350.1.13.10 4.2.7.2.686 [id number] [facility] 2021-07-11 16:00:00 2021-07-11 16:49:47 Outpatient R MARIUM DAWSON [facility] [id number] [facility] 2021-07-11 00:00:00 2021-07-11 00:00:00 Telephone Marium Dawson [facility] 1.114 350.1.13.10 4.2.7.2.686 [id number] [facility] 2021-06-20 17:48:00 2021-06-20 21:24:00 Emergency Cristofer Henry [facility] 1.20.114 350.1.13.10 4.2.7.2.686 [id number] [facility] 2021-05-08 00:00:00 2021-05-08 00:00:00 Letter (Out) Dedra Shepherd [facility] 1.2.114 350.1.13.10 4.2.7.2.686 [id number] [facility] 2021-05-07 09:27:26 2021-05-07 09:37:26 Laboratory Only Only, Ang Db Test Marcin [facility] 1.114 350.1.13.10 4.2.7.2.686 [id number] [facility] 2021-05-07 09:25:00 2021-05-07 09:25:00 Outpatient BOBBI BABB [facility] [id number] [facility] 2021-04-11 12:33:14 2021-04-11 12:48:14 Hand Finisher Visit Vtc-Lab Catrachita Mercado [facility] MULTISPEC [facility] 1.114 350.1.13.10 4.2.7.2.686 [id number] [facility] 2021-04-11 11:19:19 2021-04-11 12:35:51 Office Visit Catrachita Mercado [facility] MULTISPEC [facility] 1.114 350.1.13.10 4.2.7.2.686 [id number] [facility] 2021-04-11 12:00:00 2021-04-11 12:00:00 Outpatient R CATRACHITA MERCADO [facility] [id number] [facility] 2021-04-08 10:25:23 2021-04-08 11:26:58 Office Visit Marium Dawson [facility] 1..114 350.1.13.10 4.2.7.2.686 [id number] [facility] 2021-04-08 10:30:00 2021-04-08 10:30:00 Outpatient R MARIUM DAWSON [facility] [id number] [facility] 2021-03-26 00:00:00 2021-03-26 00:00:00 [facility] 1..114 350.1.13.10 4.2.7.2.686 [id number] [facility] 2021-03-25 15:30:00 2021-03-25 15:30:00 Outpatient R JOSE DAWSONN [facility] [id number] [facility] 2021-03-18 14:34:51 2021-03-18 14:49:51 Hand Finisher Visit Vtc-Lab Catrachita Mercado [facility] 1.114 350.1.13.10 4.2.7.2.686 [id number] [facility] 2021-03-18 13:38:25 2021-03-18 14:35:19 Office Visit Catrachita Mercado [facility] 1..114 350.1.13.10 4.2.7.2.686 [id number] [facility] 2021-03-18 13:30:00 2021-03-18 13:30:00 Outpatient CATRACHITA LUNA [facility] [id number] [facility] 2021-03-03 00:00:00 2021-03-03 00:00:00 Patient Secure Msg Doctor Unassigned, [place] [facility] 1.2840.114 350.1.13.10 4.2.7.2.686 [id number] [facility] 2021-02-28 15:07:35 2021-02-28 16:01:07 Office Visit Marium [facility] 1.20.114 350.1.13.10 4.2.7.2.686 [id number] [facility] 2021-02-28 15:30:00 2021-02-28 15:30:00 Outpatient R MARIUM DAWSON [facility] [id number] [facility] 2021-02-26 19:08:00 2021-02-26 22:19:00 Emergency Ashwin Lucero [facility] 1.2840.114 350.1.13.10 4.2.7.2.686 [id number] [facility] 2021-02-21 07:31:00 2021-02-22 12:50:00 Hospital Encounter Marium Dawson [facility] 1.2840.114 350.1.13.10 4.2.7.2.686 [id number] [facility] 2021-02-21 08:16:00 2021-02-21 13:05:00 Anesthesia Event Ernesto Tesfaye Leonard [facility] 1.2840.114 350.1.13.10 4.2.7.2.686 [id number] [facility] 2021-02-21 08:30:00 2021-02-21 12:52:00 Surgery Marium Dawson [facility] 1.2840.114 350.1.13.10 4.2.7.2.686 [id number] [facility] 2021-02-21 00:00:00 2021-02-21 00:00:00 Orders Only Doctor Unassigned, [place] [facility] 1.2840.114 350.1.13.10 4.2.7.2.686 [id number] [facility] 2021-02-20 08:30:00 2021-02-20 08:30:00 Outpatient R MARIUM DAWSON [facility] [id number] [facility] 2021-02-20 08:08:54 2021-02-20 08:23:54 Hand Finisher Visit Pob, Adc Lab Main Samir Marium [facility] 1.2840.114 350.1.13.10 4.2.7.2.686 [id number] [facility] 2021-02-20 08:08:25 2021-02-20 08:23:25 Laboratory Only Only, [facility] Test Marium Dawson [facility] 1.2840.114 350.1.13.10 4.2.7.2.686 [id number] [facility] 2021-02-19 00:00:00 2021-02-19 00:00:00 Orders Only Doctor Unassigned, [place] [facility] 1.20.114 350.1.13.10 4.2.7.2.686 [id number] [facility] 2021-02-18 08:15:00 2021-02-18 08:15:00 Outpatient R MARIUM DAWSON [facility] [id number] [facility] 2021-02-06 10:30:00 2021-02-06 10:30:00 Outpatient R MARIUM DAWSON [facility] [id number] [facility] 2021-01-29 00:00:00 2021-01-29 00:00:00 Outpatient R MARIUM DAWSON [facility] [id number] [facility] 2021-01-24 14:18:23 2021-01-24 15:08:39 Office Visit Marium Dawson [facility] 1.2840.114 350.1.13.10 4.2.7.2.686 [id number] [facility] [facility] 2021-01-24 14:30:00 2021-01-24 14:30:00 Outpatient R MARIUM DAWSON [facility] [id number] [facility] 2021-01-24 00:00:00 2021-01-24 00:00:00 Orders Only Doctor Unassigned, [place] [facility] 1.840.114 350.1.13.10 4.2.7.2.686 [id number] [facility] 2021-01-21 09:00:00 2021-01-21 09:00:00 Outpatient R MARIUM DAWSON [facility] [id number] [facility] 2021-01-02 10:30:00 2021-01-02 10:30:00 Outpatient R SHRUTHI COLLADO [facility] [id number] [facility] 2020-11-25 00:00:00 2020-11-25 00:00:00 Patient Outreach Miko Araujo [facility] 1.840.114 350.1.13.10 4.2.7.2.686 [id number] [facility] 2020-09-28 13:43:00 2020-09-28 16:38:00 Emergency Morgan Vargas [facility] 1.284.114 350.1.13.10 4.2.7.2.686 [id number] [facility] 2020-09-17 13:24:29 2020-09-17 14:54:21 Office Visit BushBenel [facility] 1.2.840.114 350.1.13.10 4.2.7.2.686 [id number] [facility] 2020-09-17 13:45:00 2020-09-17 13:45:00 Outpatient R ELEAZARBENEL [facility] [id number] [facility] 2020-09-05 10:40:42 2020-09-05 11:50:15 Office Visit Rachna Bush Rm, Adc Surg Spec Procedure [facility] 1.2840.114 350.1.13.10 4.2.7.2.686 [id number] [facility] 2020-09-05 10:45:00 2020-09-05 10:45:00 Outpatient R BUSHBENEL [facility] [id number] [facility] 2020-09-05 00:00:00 2020-09-05 00:00:00 Orders Only Doctor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 patient to call [facility] Specialty Pharmacy Of any questions or concerns regarding her medications. After reviewing the results of the administered survey, it is appropriate to continue the medication as prescribed. The [facility] Specialty Pharmacy will refill the medication and continue to follow this patient and address any concerns that arise while on therapy with OMALIZUMAB. Thank you, Radha Adams [facility] Specialty Pharmacy Radha Adams [facility] 2024-03-29 09:10:40 [facility] Specialty Pharmacy Monthly Clinical Refill Assessment Sowmya Case is a 38 year old female who is followed by the [facility] specialty pharmacy service for OMALIZUMAB. Am I [...] YES, the patient was recently seen at [facility]/ICU because of anaphylactic reaction Have you experienced [...] address? YES, the confirmed shipping address is [address] [place] [address]. Do you have any specific shipping directions? No The results of this survey will be reviewed by a specialty pharmacist and the medication order will be refilled. Thank you, Alysa Sprague [facility] Specialty Pharmacy Alysa Sprague [facility] Health 2024-03-14 14:56:04 TRANSITIONAL CARE MANAGEMENT ASSESSMENT 03/14/2024 Sowmya Case [id number] Sowmya Case is a 38 year old /White female was admitted on 03/11/24 to [facility] ICU. She was discharged on 03/12/24 with discharge disposition of HR- Routine Discharge. Admitting Physician: Matilde Diego Discharge Diagnosis: Idiopathic anaphylaxis/allergic reaction Hypokalemia No linked episodes TCM Opi-rzgi-ro-face outreach documentation: Discharge Assessment Chart Assessed: 03/14/24 [...] Phone 03/21/2024 1:00 PM Catrachita Mercado MD [facility] Health Allergy & Immunology, [facility] [phone] Marley Tello RN [facility] 2024-03-12 10:55:49 Problem: Discharge Planning Goal: [...] Yue Harden RN Outcome: Adequate for discharge SH Harden RN [facility] 2024-03-12 10:55:40 Problem: Discharge Planning Goal: [...] venous thromboembolism (Risk) Outcome: Adequate for discharge ris [facility] 2024-03-12 03:21:06 Problem: Discharge Planning Goal: [...] venous thromboembolism (Risk) Outcome: Progressing as expected Sowmya Hill RN [facility] 2024-03-11 18:12:52 Patient admitted to 2109 for diagnosis of Anaphylaxis initial encounter Patient agrees to admission, discussed plan of care with patient and family. Patient is awake, alert, oriented, resp reg unlabored, color appropriate for race, PIV intact No adverse reaction to medications administered while in ED Belongings with patient to unit [facility] 2024-03-11 18:11:23 Nurse Report Report given to BHAVIK Ocampo. Chief complaint, assessment findings, infusion verify and orders reviewed. Plan of care discussed. Patient/family members verbalized understanding. Roxie Vasquez RN [facility] 2024-03-11 16:03:58 Came in via [facility], states" from home with anaphylactic reaction(unknown), [...] sitting in the couch. Roxie Vasquez RN [facility] 2024-03-11 15:58:00 [facility] Emergency Department Note Patient Name: Sowmya Case Date of : 1985 38 year old female Treatment Room: [place] [address] Primary Care Physician: Karma Jackson Patient Escorted by: Self [9] Mode of Arrival: EMS - [facility] ([facility]) [43] EMS Treatment Prior to ED Arrival: EDGE INKER UPPERS treatment comments: albuterol tx, epinephrine 0.3 mg [...] N/A 02/21/2021 Surgeon: Marium Dawson MD; Location: [facility] ENDOMETRIAL ABLATION 2018 LAP,CHOLECYSTECTOMY LAPAROSCOPIC ASSISTED VAGINAL HYSTERECTOMY N/A 02/21/2021 Surgeon: Marium Dawson MD; Location: [facility] SALPINGECTOMY Bilateral 02/21/2021 Surgeon: Marium Dawson MD; Location: [facility] TUBAL LIGATION Review of Systems: [...] device) AdmissionCare documentation entered by: Amanda Power [facility] [employer], 28th edition, Copyright ? 2023 [facility] [employer] All Rights Reserved. 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 She [...] - Observation Condition -- Comment Treatment Team: [facility] [[id number]] Discharge Medications: Patient's Medications START taking these [...] MCG (0.1 %) NASAL SPRAY Use 1 Pierce in each nostril in the morning and 1 Pierce in the evening. Use in each nostril [...] PROPIONATE 50 MCG/ACTUATION NASAL SPRAY Use 1 Pierce in each nostril daily. HYDROXYZINE 25 MG [...] Electronically signed by: Amanda Power DO 03/11/241751 [facility] 2024-03-11 15:58:00 AdmissionCare Guideline: General Observation, [...] device) AdmissionCare documentation entered by: Amanda Power [facility], 28 edition, Copyright ? 2023 [facility] [email or web address] All Rights Reserved. [id number]:48-05:00 [facility] 2024-02-21 10:34:13 [facility] Specialty Pharmacy Monthly Clinical Refill Assessment Sowmya Case is a 38 year old female who is followed by the [facility] specialty pharmacy service for XOLAIR. Am I [...] address? YES, the confirmed shipping address is [address] [place] [address]. Do you have any specific shipping directions? No The results of this survey will be reviewed by a specialty pharmacist and the medication order will be refilled. Thank you, Eneida Medina [facility] Specialty Pharmacy Eneida Medina [facility] - Health 2024-01-27 10:39:49 Refill request received. Requested Prescriptions [...] Dept 12/10/23 Office Visit Catrachita Mercado MD [facility] Allergy 06/11/23 Office Visit Catrachita Mercado MD [...] and meeting all other requirements Please advise. Ann Acosta LVN [facility] 2024-01-26 11:10:48 Summary: [facility] Specialty Pharmacy [facility] Monthly Clinical Assessment After reviewing the results of the administered survey, it is appropriate to continue the medication as prescribed. The [facility] Specialty Pharmacy will refill the medication and continue to follow this patient and address any concerns that arise while on therapy with OMALIZUMAB. Thank you, Radha Adams [facility] Specialty Pharmacy Radha Adams [facility] 2024-01-26 08:38:22 [facility] Specialty Pharmacy Monthly Clinical Refill Assessment Sowmya Case is a 38 year old female who is followed by the [facility] specialty pharmacy service for XOLAIR . Am [...] address? YES, the confirmed shipping address is [address] [place] [id number]. Do you have any specific shipping directions? No The results of this survey will be reviewed by a specialty pharmacist and the medication order will be refilled. Thank you, Eneida Medina [facility] Specialty Pharmacy Eneida Medina [facility] 2023-12-30 10:59:40 Summary: [facility] Specialty Pharmacy [facility] Special[facility] Therapy Plan Sowmya Case is a 38 year old y/o /White female patient referred to the [facility] Specialty Pharmacy for management of OMALIZUMAB and [...] medication regimen is: OMALIZUMAB 300 mg SubQ L9iyxnd next dose due on: 12/31/2023 Concurrent medications [...] hospitalization related to their specialty condition. The [facility] Specialty Pharmacist has reviewed: The H&P, treatment [...] to continue the medication as prescribed. The [facility] Specialty Pharmacy will refill the medication and continue to follow this patient and address any concerns that arise while on therapy with OMALIZUMAB. Thank you, Radha Adams [facility] Specialty Pharmacy Radha Adams [facility] 2023-12-28 12:07:46 [facility] Specialty Pharmacy Monthly Clinical Refill Assessment Sowmya Case is a 38 year old female who is followed by the [facility] specialty pharmacy service for XOLAIR. Am I [...] address? YES, the confirmed shipping address is [address] [place] [address]. Do you have any specific shipping directions? No The results of this survey will be reviewed by a specialty pharmacist and the medication order will be refilled. Thank you, Eneida Medina [facility] Specialty Pharmacy Eneida Medina [facility] 2023-12-10 11:45:00 Images from the original note were not included. Venipuncture collection performed by clean technique on the right anticubitus. Total of 1 attempts were made. Slight pressure and a bandage/dressing were applied to the site(s). The patient experienced no complications. The following specimens were processed according to instructions and sent to [facility] laboratories per lab order on 12/10/2023: LT BLUE SST 1 RED LAV PPT DK GREEN (LiHep) DK GREEN (SodH) DURON DK BLUE (K2) DK BLUE (S) ACD Blood Culture NIPT/NTD [facility] 2023-09-04 17:12:05 Pt discharged with diagnosis of crohn's disease of colon with complication. Printed and verbal instructions reviewed with and given to patient. Prescriptions given x 1. Pt verbalized understanding of teaching, medication, and recommended follow-up. Denies questions or concerns at this time. Pt ambulatory at discharge. Appears in no apparent distress. No ataxia noted. GIVER Marimu Gonzales RN [facility] 2023-09-04 13:18:51 Pt to ed via pov. Alert and ambulatory. C/o L side flank pain that radiates to upper left abdomen. Hx of stones. Also reports urinary frequency. GIVER Patricia Aparicio RN [facility] 2023-09-04 13:13:00 [facility] Emergency Department Note Patient Name: Sowmya Case Date of : 1985 38 year old female Treatment Room: TX1/TX1 Primary Care Physician: Karma Jackson Patient Escorted by: Self [9] Mode of Arrival: Personal means [1] EMS Treatment Prior to ED Arrival: EDGE INKER UPPERS treatment: Analgesic Travel and Exposure Screening: Symptoms [...] N/A 02/21/2021 Surgeon: Marium Dawson MD; Location: [facility] ENDOMETRIAL ABLATION 2018 LAP,CHOLECYSTECTOMY LAPAROSCOPIC ASSISTED VAGINAL HYSTERECTOMY N/A 02/21/2021 Surgeon: Marium Dawson MD; Location: [facility] SALPINGECTOMY Bilateral 02/21/2021 Surgeon: Marium Dawson MD; Location: [facility] TUBAL LIGATION Review of Systems: [...] MCG (0.1 %) NASAL SPRAY Use 1 Pierce in each nostril in the morning and 1 Pierce in the evening. Use in each nostril [...] PROPIONATE 50 MCG/ACTUATION NASAL SPRAY Use 1 Pierce in each nostril daily. HYDROXYZINE 25 MG [...] Electronically signed by: Deborah Winslow DO 09/04/23 [id number] [facility]
[2024-12-12] MEDS ORDERED: LEVALBUTEROL 1.25 MG/3 ML NEB ONE (16:40)
[2024-12-12] MEDS ORDERED: predniSONE 20 MG TAB ONE (16:40)
[2024-12-12] MEDS ORDERED: DIPHENHYDRAMINE 50 MG/ML VIAL ONE (16:41)
[2024-12-12] MEDS ORDERED: NA CHLORIDE 0.9% 1,000 ML ONE (16:41)
[2024-12-12] MEDS ORDERED: FAMOTIDINE 20 MG/2 ML VIAL IV ONE (16:41)
[2024-12-12 17:22] LABS: Absolute Basophils 0.1 K/uL (0-0.5); Absolute Lymphocytes (CBC) 2.9 K/uL (0.7-4.9); Absolute Monocytes 0.5 K/uL (0.1-1.3); Absolute Neutrophil 12.2 K/uL (1.8-8.0); Basophils % 0.9 % (0-1.3); Eosinophils % 0.2 % (0-4.4); Hematocrit 37.9 % (36.0-45.0); Hemoglobin 12.9 g/dL (12.0-15.0); Lymphocytes % 18.3 % (15.3-44.8); MCH 29.3 pg (27.0-35.0); MCV 86.4 fL (80-100); MPV 7.5 fL (7.6-11.3); Monocytes % 3.2 % (3.3-12.3); Neutrophils % 77.4 % (41.7-73.7); Platelets 478 thou/uL (152-406); RBC Red Blood Cell Count 4.39 M/uL (3.86-4.86); Red Cell Distribution Width 14.2 % (12.1-15.2)
[2024-12-12 17:24] LABS: PT Prothrombin Time 12.1 SECONDS (10-13.0); Protime INR 1.06
[2024-12-12 17:55] LABS: ALT/SGPT 16 U/L (13-56); AST/SGOT 11 U/L (15-37); Albumin 4.1 g/dL (3.4-5.0); Albumin/Globulin Ratio 1.2 (1.1-1.8); Alkaline Phosphatase 60 U/L (45-117); BUN Blood Urea Nitrogen 12 mg/dL (7-18); Bicarbonate 20 mEq/L (21-32); Bilirubin Total 0.3 mg/dL (0.2-1.0); Globulin 3.5 g/dL (2.3-3.5); Glomerular Filtration Rate 96 ml/min (=/>90); Glucose Level 143 mg/dL (74-106); Magnesium 1.9 mg/dL (1.6-2.4); NT PRO-BNP 26 pg/mL (<125); Protein, Total 7.6 g/dL (6.4-8.2); Sodium Level 138 mEq/L (136-145)
--- NOTE | 2024-12-12 17:57 | RAD REPORT ---
Procedure: Chest Single View HISTORY: Cough COMPARISON: 2023 FINDINGS: The lungs appear clear of acute infiltrate. No significant pleural effusion noted. The heart is normal size. IMPRESSION: No acute abnormality is displayed.
[2024-12-12 18:03] LABS: Bilirubin Direct < 0.2 mg/dL (0-0.2); Bilirubin Indirect, Calculated 0.1 mg/dL (0.2-0.8); Troponin High Sensitivity < 3.0 pg/mL (<58.9)
--- NOTE | 2024-12-12 19:04 | EDPHYS ---
Physician Documentation [facility] Name: Sowmya Juarez Age: 39 yrs Sex: Female : 1985 Arrival Date: 12/12/2024 Time: 16:01 Bed 14 Private MD: ED Physician Todd Peña HPI: 12/12 18:56 This 39 yrs old Female presents to ER via EMS with complaints of Allergic lucrecia Reaction. 18:56 The patient presents with dizziness, itching, nasal itching, rash, redness of skin. lucrecia Onset: The symptoms/episode began/occurred just prior to arrival. Associated signs and symptoms: The patient has no apparent associated signs or symptoms. Possible causes: The patient has no known obvious cause for the symptoms. At home the patient or guardian has treated the symptoms with Benadryl, EpiPen, respiratory inhaler, nebulizer treatment, steroids. Severity of symptoms: At their worst the symptoms were moderate in the emergency department the symptoms are unchanged. The patient has not experienced similar symptoms in the past. Historical: - Allergies: 16:23 Compazine; bp - PMHx: 16:23 Bipolar disorder; Crohn's; Hyperlipidemia; Hypertension; Mass Cell Activation Syndrome; bp Migraines; - PSHx: 16:23 Appendectomy; section; Cholecystectomy; Total abdominal hysterectomy; bp - Immunization history:: Adult Immunizations up to date. - Infectious Disease History:: Denies. - Social history:: Smoking status: unknown. ROS: 18:57 Constitutional: Negative for fever, chills, and weight loss, Eyes: Negative for injury, lucrecia pain, redness, and discharge, ENT: Negative for injury, pain, and discharge, Neck: Negative for injury, pain, and swelling, Cardiovascular: Negative for chest pain, palpitations, and edema, Abdomen/GI: Negative for abdominal pain, nausea, vomiting, diarrhea, and constipation, Back: Negative for injury and pain, : Negative for injury, bleeding, discharge, and swelling, MS/Extremity: Negative for injury and deformity, Skin: Negative for injury, rash, and discoloration, Neuro: Negative for headache, weakness, numbness, tingling, and seizure, Psych: Negative for depression, anxiety, suicide ideation, homicidal ideation, and hallucinations, Allergy/Immunology: Negative for hives, rash, and allergies, Endocrine: Negative for neck swelling, polydipsia, polyuria, polyphagia, and marked weight changes, Hematologic/Lymphatic: Negative for swollen nodes, abnormal bleeding, and unusual bruising, 18:57 Respiratory: Positive for cough, shortness of breath, wheezing, expiratory, 18:57 MS/extremity: Negative for acute changes, Exam: 18:57 Constitutional: This is a well developed, well nourished patient who is awake, alert, lucrecia and in no acute distress. Head/Face: Normocephalic, atraumatic. Eyes: Pupils equal round and reactive to light, extra-ocular motions intact. Lids and lashes normal. Conjunctiva and sclera are non-icteric and not injected. Cornea within normal limits. Periorbital areas with no swelling, redness, or edema. ENT: Nares patent. No nasal discharge, no septal abnormalities noted. Tympanic membranes are normal and external auditory canals are clear. Oropharynx with no redness, swelling, or masses, exudates, or evidence of obstruction, uvula midline. Mucous membranes moist. Neck: Trachea midline, no thyromegaly or masses palpated, and no cervical lymphadenopathy. Supple, full range of motion without nuchal rigidity, or vertebral point tenderness. No Meningismus. Chest/axilla: Normal chest wall appearance and motion. Nontender with no deformity. No lesions are appreciated. Cardiovascular: Regular rate and rhythm with a normal S1 and S2. No gallops, murmurs, or rubs. Normal PMI, no JVD. No pulse deficits. Abdomen/GI: Soft, non-tender, with normal bowel sounds. No distension or tympany. No guarding or rebound. No evidence of tenderness throughout. Back: No spinal tenderness. No costovertebral tenderness. Full range of motion. Skin: Warm, dry with normal turgor. Normal color with no rashes, no lesions, and no evidence of cellulitis. MS/ Extremity: Pulses equal, no cyanosis. Neurovascular intact. Full, normal range of motion., bilateral aka Neuro: Awake and alert, GCS 15, oriented to person, place, time, and situation. Cranial nerves II-XII grossly intact. Motor strength 5/5 in all extremities. Sensory grossly intact. Cerebellar exam normal. Normal gait. Psych: Awake, alert, with orientation to person, place and time. Behavior, mood, and affect are within normal limits. 18:57 Respiratory: the patient does not display signs of respiratory distress, Respirations: normal, no acute changes, labored breathing, is not present, Breath sounds: bronchial sounds, that are mild, are scattered, decreased breath sounds, that are mild, are scattered, rhonchi, that are mild, are scattered, stridor, is not appreciated, wheezing: expiratory that is mild, 19:07 ECG was reviewed by the Attending Physician. [facility] Vital Signs: 16:20 BP 118 / 64; Pulse 143; Pulse Ox 88% on R/A; bp 16:59 BP 159 / 93; Pulse 112; Resp 27; Pulse Ox 97% ; bp 18:33 BP 122 / 65; Pulse 104; Resp 20; Pulse Ox 96% ; bp 19:04 BP 119 / 78; Pulse 99; Resp 18; Pulse Ox 100% on R/A; rg5 Fany Coma Score: 19:07 Eye Response: spontaneous(4). Motor Response: obeys commands(6). Verbal Response: lucrecia oriented(5). Total: 15. MDM: 16:03 Medical Screening Exam initiated lucrecia 16:05 Medical Screening Exam initiated lucrecia 19:00 Differential diagnosis: anaphylaxis, angioedema, Arrhythmias bronchospasm, Carcinoid lucrecia Anxiety Reaction asthma, Bronchitis CHF exacerbation, Chronic Obstructive Pulmonary Disease foreign body or airway obstruction Hereditary Angioedema Mastocystosis non IgE mediated drug reaction Status Asthmaticus urticaria, Vasovagal Reactions Vocal Cord Dysfunction Myocardial Infarction pneumonia, Pneumothorax Psychogenic pulmonary edema, Pulmonary Embolism reactive airway disease, Sepsis Unstable Angina. Antibiotic administration: Not indicated. Immunization status:. Data reviewed: vital signs, nurses notes, lab test result(s), EKG, radiologic studies, plain films. I considered the following discharge prescriptions or medication management in the emergency department Medications were administered in the Emergency Department. See MAR. Independent interpretation of the following test(s) in the Emergency Department X-Ray: My interpretation is cxr. Test considered but Not performed: CT: no ct chest. Historians other than the Patient: EMS: ems well informed. 12/12 16:07 Order name: Basic Metabolic Panel [facility] 12/13 15: Order name: CBC with Diff [facility] 12/13 15: Order name: LFT's [facility] 12/13 15: Order name: Magnesium [facility] 12/12 Order name: NT PRO-BNP [facility] 04/08 16:07 Order name: PT-INR [facility] 12/12 16:07 Order name: Troponin HS [facility] 12/12 16:07 Order name: XRAY Chest (1 view) [facility] 12/12 16:07 Order name: Cardiac monitoring; Complete Time: 16:20 [facility] 12/12 16:07 Order name: EKG - Nurse/Tech; Complete Time: 16:58 [facility] 12/12 16:07 Order name: IV Saline Lock; Complete Time: 16:20 [facility] 12/12 16:07 Order name: Labs collected and sent; Complete Time: 16:58 [facility] 12/12 16:07 Order name: O2 Per Protocol; Complete Time: 16:20 [facility] 12/12 16:07 Order name: O2 Sat Monitoring; Complete Time: 16:20 [facility] EC:07 Rate is 116 beats/min. Rhythm is regular. QRS [place] is Normal. IA interval is normal. lucrecia QRS interval is normal. QT interval is normal. No Q waves. T waves are Normal. No ST changes noted. Clinical impression: Sinus tachycardia and No evidence of ischemia. Interpreted by me. Reviewed by me. Administered Medications: 16:30 Drug: Famotidine IVP 40 mg IVP once; dilute with 10 mL 0.9% NaCl; give over 2 minutes bp Route: IVP; Site: right hand; 19:04 Follow up: Response: No adverse reaction rg5 16:30 Drug: diphenhydrAMINE IVP 25 mg IVP once Route: IVP; Site: right hand; bp 19:03 Follow up: Response: No adverse reaction rg5 16:30 Drug: NS 0.9% IV 1000 ml IV at 1 bolus Per protocol; to be given as a bolus over 60 bp minutes Route: IV; Rate: 1 bolus; Site: right hand; 19:03 Follow up: IV Status: Completed infusion; IV Intake: 1000ml rg5 16:30 Drug: Levalbuterol Inhalation 2.5 mg Inhalation once Route: Inhalation; bp 16:30 Drug: predniSONE PO 60 mg PO once Route: PO; bp 19:04 Follow up: Response: No adverse reaction rg5 Disposition: 19:08 Critical Care:. lucrecia Disposition Summary: 12/12/24 19:03 Discharge Ordered Notes: Location: Home lucrecia Problem: new lucrecia Symptoms: have improved lucrecia Condition: Stable lucrecia Diagnosis - Allergy status to unspecified drugs, medicaments and biological substances status lucrecia - Mastocytosis lucrecia - Dyspnea lucrecia Followup: lucrecia - With: Private Physician - When: 2 - 3 days - Reason: Recheck today's complaints, Continuance of care, Re-evaluation by your physician Followup: lucrecia - With: Benjamin Patel MD - When: 2 - 3 days - Reason: Recheck today's complaints, Re-evaluation by your physician Discharge Instructions: - Discharge Summary Sheet [facility] - Allergies, Adult lucrecia - Drug Allergy, [id number] [facility] - Drug Allergy [facility] - How to Use an Auto-Injector Pen lucrecia - Hives lucrecia - Angioedema lucrecia - Angioedema, [id number] lucrecia - Hives, [id number] [facility] Forms: - Medication Reconciliation Form [facility] - Antibiotic Education lucrecia - Prescription Opioid Use [facility] - Patient Portal Instructions [facility] - Leadership Thank You Letter [facility] Prescriptions: - EpiPen 0.3 mg/0.3 mL Injection Auto-Injector - administer 0.3 milliliter INTRAMUSCULAR route once as a single dose, repeat as [facility] needed; 2 unit; Refills: 0, Product Selection Permitted - Benadryl 25 mg Oral Capsule - take 1 capsule ORAL route every 6 hours As needed; 30 tablet; Refills: 0, [facility] Product Selection Permitted - Pepcid 20 mg Oral Tablet - take 1 tablet ORAL route every 12 hours for 10 days; 20 tablet; Refills: 0, [facility] Product Selection Permitted - Albuterol Sulfate 2.5 mg /3 mL (0.083 %) Inhalation Solution for Nebulization - inhale 1 unit NEBULIZATION route every 4-6 hours As needed; 30 unit; Refills: [facility] 0, Product Selection Permitted - Prednisone 20 mg Oral Tablet - take 2 tablets ORAL route once daily for 5 days; 10 tablet; Refills: 0, Product [facility] Selection Permitted Critical care time excluding procedures: 19:08 Critical care time: Bedside Care: 25 minutes, Consultation: 10 minutes, Family [facility] Intervention: 5 minutes. Total time: 40 minutes Signatures: Dispatcher [employer] EDTodd Mar MD MD cha Peltier, Brian, RN RN Jem Moore RN rg5 Corrections: (The following items were deleted from the chart) 16:08 16:08 BASIC METABOLIC PANEL+C.LAB.BRZ ordered. EDMS EDMS 16:08 16:08 CBC+H.LAB.BRZ ordered. EDMS EDMS 16:08 16:08 HEPATIC FUNCTION+C.LAB.BRZ ordered. EDMS EDMS 16: 16:08 MAGNESIUM+C.LAB.BRZ ordered. EDMS EDMS 16: 16:08 PROBNP+C.LAB.BRZ ordered. EDMS EDMS 16: 16:08 PROTIME (+INR)+COAG.LAB.BRZ ordered. EDMS EDMS 16: 16:08 Troponin High Sensitivity+C.LAB.BRZ ordered. EDMS EDMS 16: 16:08 Urinalysis+U.LAB.BRZ ordered. EDMS EDMS 16: 16:08 Test, Urine+UC.LAB.BRZ ordered. EDMS EDMS 16: 16:08 Chest Single View+RAD.RAD.BRZ ordered. EDMS EDMS
--- NOTE | 2024-12-12 19:04 | ER ---
Nurse's Notes [facility] Name: Sowmya Juarez Age: 39 yrs Sex: Female : 1985 Arrival Date: 12/12/2024 Time: 16:01 Bed 14 Private MD: Diagnosis: Allergy status to unspecified drugs, medicaments and biological substances status;Mastocytosis;Dyspnea Presentation: 12/12 16:20 Chief complaint: EMS states: MAST CELL ACTIVATION. Coronavirus screen: At this time, bp the client does not indicate any symptoms associated with coronavirus-19. Ebola Screen: No symptoms or risks identified at this time. Initial Sepsis Screen: Does the patient meet any 2 criteria? HR > 90 bpm. No. Patient's initial sepsis screen is negative. Does the patient have a suspected source of infection? No. Patient's initial sepsis screen is negative. Risk Assessment: Do you want to hurt yourself or someone else? Patient reports no desire to harm self or others. Onset of symptoms is unknown. Care prior to arrival: Medication(s) given: 50 BENADRYL, 125 SOLU-MEDROL, A\T\A, EPI 0.3 IV initiated. 22 GA, in the right forearm. 16:20 Method Of Arrival: EMS: [facility] bp 16:20 Acuity: KALYN 2 bp Triage Assessment: 16:23 General: Appears distressed, uncomfortable, Behavior is cooperative, appropriate for bp age, anxious. Pain: Denies pain. EENT: No deficits noted. Neuro: No deficits noted. Cardiovascular: Rhythm is sinus tachycardia. Respiratory: Airway is patent Respiratory effort is labored, Breath sounds with wheezes bilaterally. GI: No signs and/or symptoms were reported involving the gastrointestinal system. : No signs and/or symptoms were reported regarding the genitourinary system. Derm: No deficits noted. Musculoskeletal: No deficits noted. Historical: - Allergies: 16:23 Compazine; bp - PMHx: 16:23 Bipolar disorder; Crohn's; Hyperlipidemia; Hypertension; Mass Cell Activation Syndrome; bp Migraines; - PSHx: 16:23 Appendectomy; section; Cholecystectomy; Total abdominal hysterectomy; bp - Immunization history:: Adult Immunizations up to date. - Infectious Disease History:: Denies. - Social history:: Smoking status: unknown. Screenin:24 [facility] ED Fall Risk Assessment (Adult) History of falling in the last 3 months, bp including since admission No falls in past 3 months (0 pts) Confusion or Disorientation No (0 pts) Intoxicated or Sedated No (0 pts) Impaired Gait No (0 pts) Mobility Assist Device Used No (0 pt) Altered Elimination No (0 pt) Score/Fall Risk Level 0 - 2 = Low Risk Oriented to surroundings. Abuse screen: Denies threats or abuse. Denies injuries from another. Nutritional screening: No deficits noted. Tuberculosis screening: No symptoms or risk factors identified. Assessment: 16:20 General: Appears distressed, uncomfortable, ill, Behavior is calm, cooperative, bp appropriate for age. 18:33 Reassessment: Patient appears in no apparent distress at this time. Patient is alert, bp oriented x 3, equal unlabored respirations, skin warm/dry/pink. Patient states symptoms have improved. 19:05 General: Appears in no apparent distress. comfortable, Behavior is calm, cooperative. rg5 Respiratory: Airway is patent Trachea midline Respiratory effort is even, unlabored, Respiratory pattern is regular, symmetrical, Breath sounds are clear. Vital Signs: 16:20 BP 118 / 64; Pulse 143; Pulse Ox 88% on R/A; bp 16:59 BP 159 / 93; Pulse 112; Resp 27; Pulse Ox 97% ; bp 18:33 BP 122 / 65; Pulse 104; Resp 20; Pulse Ox 96% ; bp 19:04 BP 119 / 78; Pulse 99; Resp 18; Pulse Ox 100% on R/A; rg5 Fany Coma Score: 19:07 Eye Response: spontaneous(4). Motor Response: obeys commands(6). Verbal Response: lucrecia oriented(5). Total: 15. ED Course: 16:03 Patient arrived in ED. lucrecia 16:04 Todd Peña MD is Attending Physician. lucrecia 16:15 Ernesto George, BHAVIK is Primary Nurse. bp 16:22 Triage completed. bp 16:23 Arm band placed on. bp 16:24 Patient has correct armband on for positive identification. bp 16:24 Maintain EMS IV. Dressing intact. Good blood return noted. Site clean \T\ dry. Gauge \T\ bp site: 22 RFA. Flushed with 10 mL NS. 16:59 Initial lab(s) drawn, by me, sent to lab. EKG done, by ED staff, reviewed by Todd Peña MD. 17:16 XRAY Chest (1 view) In Process Unspecified. EDNM 19:02 Benjamin Patel MD is Referral Physician. lucrecia 19:26 Primary Nurse role handed off by Ernesto George, RN rv1 19:38 Jem Fernandez, RN is Primary Nurse. rg5 19:38 No provider procedures requiring assistance completed. ha1 19:38 IV discontinued, bleeding controlled, No redness/swelling at site. Pressure dressing rg5 applied. Administered Medications: 16:30 Drug: Famotidine IVP 40 mg IVP once; dilute with 10 mL 0.9% NaCl; give over 2 minutes bp Route: IVP; Site: right hand; 19:04 Follow up: Response: No adverse reaction rg5 16:30 Drug: diphenhydrAMINE IVP 25 mg IVP once Route: IVP; Site: right hand; bp 19:03 Follow up: Response: No adverse reaction rg5 16:30 Drug: NS 0.9% IV 1000 ml IV at 1 bolus Per protocol; to be given as a bolus over 60 bp minutes Route: IV; Rate: 1 bolus; Site: right hand; 19:03 Follow up: IV Status: Completed infusion; IV Intake: 1000ml rg5 16:30 Drug: Levalbuterol Inhalation 2.5 mg Inhalation once Route: Inhalation; bp 16:30 Drug: predniSONE PO 60 mg PO once Route: PO; bp 19:04 Follow up: Response: No adverse reaction rg5 Intake: 19:03 IV: 1000ml; Total: 1000ml. rg5 Outcome: 19:03 Discharge ordered by . [facility] 19:39 Discharged to home ambulatory, rg5 19:39 Condition: stable 19:39 Discharge instructions given to patient, Instructed on discharge instructions, follow up and referral plans. Demonstrated understanding of instructions, follow-up care, medications, Prescriptions given X 4, 19:40 Patient left the ED. rg5 Signatures: Dispatcher [employer] Todd Casiano MD MD cha Peltier, Brian, RN RN Poly Biswas RN RN 1 Audelia Henao rv1 Jem Fernandez, BHAVIK RN rg5
[2024-12-12 20:49] VITALS: BP 119/78; O2SAT 100
--- NOTE | 2024-12-13 11:58 | EKG ---
Test Date: 2024-12-12 Test Time: 16:53:35 Refrigeration [place]: BP MEASUREMENT RESULTS: Intervals: Rate: 116 UT: 168 QRSD: 90 QT: 352 QTc: 489 [place]: P: 68 UT: 168 QRS: 74 T: 62 INTERPRETIVE STATEMENTS: Sinus tachycardia Otherwise normal ECG Compared to ECG 10/10/2024 14:38:08 No significant changes Electronically Signed On 12-13-24 11:57:03 CDT by Syed Oneill
== END 2024-12-12 19:40 | disposition home or self-care (01) ==
LOC: ER 16:01
DX: R06.00 Dyspnea, unspecified (principal); D47.02 Systemic mastocytosis; Z88.9 Allergy status to unspecified drugs, medicaments and biological substances; I10 Essential (primary) hypertension
CPT/HCPCS: 96361; 93005; 85025; 80048; 36415; 83735; 85610; 80076; 84484; 83880; 71045; 96375; 96374; 99285; J7512; J1200; J7614; J7030